=== PATIENT | male | born 1950 | race Caucasian/White ===

== ENCOUNTER 2020-04-14 03:52 | Outpatient (RCR) | payer MEDICARE, SELFPAY ==
[2020-04-14 11:23] LABS: Abs Immature Grans 0.14 10^3/uL (0.0-0.06); Absolute Basophil Count 0.06 10^3/uL (0.0-0.2); Absolute Eosinophil Count 0.36 10^3/uL (0.0-0.7); Absolute Lymphocyte Count 2.14 10^3/uL (1.2-3.4); Absolute Monocyte Count 0.64 10^3/uL (0.1-0.8); Basophils % 0.9; Eosinophils % 5.3; HGB 13.3 g/dL (13.5-17.5); Lymphocytes % 31.3; MCH 30.6 pg (27.0-33.0); MCHC 34.1 % (32.0-36.0); MCV 89.9 fL (80-95); MPV 8.6 fL (8.0-11.0); Monocytes % 9.4; Neutrophils % 51.1; Nucleated RBC 0 %; Platelet Count 243 10^3/uL (130-400); RBC 4.34 10^6/uL (4.36-5.78); RDW 12.1 % (11.8-14.1); RDW-SD 39.7 fL; WBC 6.84 10^3/uL (4.4-10.8)
[2020-04-14] MEDS: Normal Saline Flush 10 ML SYR IVP (11:27)
[2020-04-14 11:36] LABS: ALT 20 U/L (16-63); AST 11 U/L (15-37); Albumin 3.6 g/dL (3.4-5.0); Alkaline Phosphatase 80 U/L (46-116); Anion Gap 7.7 mmol/L (3-11); BUN 18 mg/dL (7-18); Bilirubin, Total 0.3 mg/dL (0.2-1.0); CO2 24.3 mmol/L (21.0-32.0); CREATININE 1.04 mg/dL (0.70-1.30); Calcium 8.3 mg/dL (8.5-10.1); Chloride 102 mmol/L (98-107); Glucose 204 mg/dL (74-106); Magnesium 1.8 mg/dL (1.8-2.4); Potassium 3.7 mmol/L (3.5-5.1); Sodium 134 mmol/L (136-145); Total Protein 7.2 g/dL (6.4-8.2)
== END 2020-04-20 23:59 | disposition home or self-care (01) ==
LOC: INF 03:52
PROVIDERS: PCP Family Medicine; Visit Provider Internal Medicine Hematology & Oncology
DX: C44.229 Squamous cell carcinoma of skin of left ear and external auricular canal (principal)
CPT/HCPCS: 36591; 80053; 83735; 85025

== ENCOUNTER 2020-05-12 02:34 | Outpatient (RCR) | payer MEDICARE, SELFPAY ==
[2020-04-21] MEDS: Normal Saline Flush 10 ML SYR IVP (10:27)
[2020-04-21 10:32] LABS: Abs Immature Grans 0.24 10^3/uL (0.0-0.06); Absolute Basophil Count 0.07 10^3/uL (0.0-0.2); Absolute Eosinophil Count 0.21 10^3/uL (0.0-0.7); Absolute Lymphocyte Count 1.98 10^3/uL (1.2-3.4); Absolute Monocyte Count 0.91 10^3/uL (0.1-0.8); Absolute Neutrophil Count 4.83 10^3/uL (1.2-6.7); Basophils % 0.8; Eosinophils % 2.5; HCT 39.6 % (40.0-50.0); HGB 13.4 g/dL (13.5-17.5); Immature Grans % 2.9; MCH 29.7 pg (27.0-33.0); MCHC 33.8 % (32.0-36.0); MCV 87.8 fL (80-95); MPV 8.8 fL (8.0-11.0); Neutrophils % 58.8; Nucleated RBC 0 %; Platelet Count 256 10^3/uL (130-400); RBC 4.51 10^6/uL (4.36-5.78); WBC 8.24 10^3/uL (4.4-10.8)
[2020-04-21 10:49] LABS: ALT 21 U/L (16-63); AST 11 U/L (15-37); Albumin 3.5 g/dL (3.4-5.0); Alkaline Phosphatase 86 U/L (46-116); Anion Gap 9.1 mmol/L (3-11); BUN 22 mg/dL (7-18); Bilirubin, Total 0.3 mg/dL (0.2-1.0); CO2 27.9 mmol/L (21.0-32.0); CREATININE 1.1 mg/dL (0.70-1.30); Chloride 100 mmol/L (98-107); Glucose 223 mg/dL (74-106); Magnesium 1.7 mg/dL (1.8-2.4); Sodium 137 mmol/L (136-145)
[2020-04-28] MEDS: Normal Saline Flush 10 ML SYR IVP (10:00)
[2020-04-28 10:02] LABS: Abs Immature Grans 0.06 10^3/uL (0.0-0.06); Absolute Basophil Count 0.03 10^3/uL (0.0-0.2); Absolute Eosinophil Count 0.16 10^3/uL (0.0-0.7); Absolute Lymphocyte Count 1.18 10^3/uL (1.2-3.4); Absolute Neutrophil Count 5.17 10^3/uL (1.2-6.7); Basophils % 0.4; Eosinophils % 2.2; HCT 38.1 % (40.0-50.0); Immature Grans % 0.8; Lymphocytes % 16.2; MCH 29.9 pg (27.0-33.0); MCHC 34.1 % (32.0-36.0); MCV 87.6 fL (80-95); Monocytes % 9.6; Neutrophils % 70.8; Nucleated RBC 0 %; Platelet Count 179 10^3/uL (130-400); RBC 4.35 10^6/uL (4.36-5.78); RDW 12.2 % (11.8-14.1); RDW-SD 39.1 fL
[2020-04-28 10:15] LABS: ALT 19 U/L (16-63); AST 14 U/L (15-37); Albumin 3.5 g/dL (3.4-5.0); Alkaline Phosphatase 86 U/L (46-116); Anion Gap 8.9 mmol/L (3-11); BUN 17 mg/dL (7-18); Bilirubin, Total 0.4 mg/dL (0.2-1.0); CO2 27.1 mmol/L (21.0-32.0); CREATININE 1.1 mg/dL (0.70-1.30); Chloride 99 mmol/L (98-107); Glucose 191 mg/dL (74-106); Magnesium 1.7 mg/dL (1.8-2.4); Potassium 3.7 mmol/L (3.5-5.1); Sodium 135 mmol/L (136-145); Total Protein 6.9 g/dL (6.4-8.2)
[2020-05-05] MEDS: Normal Saline Flush 10 ML SYR IVP (10:30)
[2020-05-05 11:01] LABS: Basophils % 0.4; HCT 38.3 % (40.0-50.0); HGB 13.3 g/dL (13.5-17.5); Lymphocytes % 15.1; MCH 30.2 pg (27.0-33.0); MCHC 34.7 % (32.0-36.0); MCV 86.8 fL (80-95); MPV 8.8 fL (8.0-11.0); Monocytes % 10.5; Neutrophils % 72.4; Platelet Count 172 10^3/uL (130-400); RBC 4.41 10^6/uL (4.36-5.78); RDW 12.7 % (11.8-14.1); RDW-SD 39.8 fL; WBC 7.27 10^3/uL (4.4-10.8)
[2020-05-05 11:02] LABS: Abs Immature Grans 0.04 10^3/uL (0.0-0.06); Absolute Basophil Count 0.03 10^3/uL (0.0-0.2); Absolute Eosinophil Count 0.07 10^3/uL (0.0-0.7); Absolute Monocyte Count 0.76 10^3/uL (0.1-0.8); Absolute Neutrophil Count 5.27 10^3/uL (1.2-6.7); Immature Grans % 0.6; Nucleated RBC 0 %
[2020-05-05 11:11] LABS: ALT 23 U/L (16-63); AST 15 U/L (15-37); Albumin 3.8 g/dL (3.4-5.0); Alkaline Phosphatase 97 U/L (46-116); Anion Gap 8.3 mmol/L (3-11); BUN 27 mg/dL (7-18); Bilirubin, Total 0.6 mg/dL (0.2-1.0); CO2 26.7 mmol/L (21.0-32.0); CREATININE 1.2 mg/dL (0.70-1.30); Calcium 9.5 mg/dL (8.5-10.1); Chloride 99 mmol/L (98-107); Glucose 170 mg/dL (74-106); Magnesium 1.8 mg/dL (1.8-2.4); Potassium 3.7 mmol/L (3.5-5.1); Sodium 134 mmol/L (136-145); Total Protein 7.5 g/dL (6.4-8.2)
[2020-05-12 10:27] LABS: Abs Immature Grans 0.04 10^3/uL (0.0-0.06); Absolute Basophil Count 0.02 10^3/uL (0.0-0.2); Absolute Lymphocyte Count 0.97 10^3/uL (1.2-3.4); Absolute Monocyte Count 0.69 10^3/uL (0.1-0.8); Absolute Neutrophil Count 4.27 10^3/uL (1.2-6.7); Basophils % 0.3; Eosinophils % 1.6; HCT 34.5 % (40.0-50.0); HGB 12.1 g/dL (13.5-17.5); Immature Grans % 0.7; Lymphocytes % 15.9; MCH 30.3 pg (27.0-33.0); MCHC 35.1 % (32.0-36.0); MCV 86.3 fL (80-95); MPV 8.8 fL (8.0-11.0); Monocytes % 11.3; Neutrophils % 70.2; Nucleated RBC 0 %; Platelet Count 139 10^3/uL (130-400); RDW 12.9 % (11.8-14.1); WBC 6.09 10^3/uL (4.4-10.8)
[2020-05-12] MEDS: Normal Saline Flush 10 ML SYR IVP (10:28)
[2020-05-12 10:37] LABS: ALT 21 U/L (16-63); AST 14 U/L (15-37); Albumin 3.6 g/dL (3.4-5.0); Alkaline Phosphatase 93 U/L (46-116); Anion Gap 7.2 mmol/L (3-11); BUN 26 mg/dL (7-18); Bilirubin, Total 0.6 mg/dL (0.2-1.0); CO2 28.8 mmol/L (21.0-32.0); Calcium 9.2 mg/dL (8.5-10.1); Chloride 99 mmol/L (98-107); Glucose 147 mg/dL (74-106); Magnesium 1.8 mg/dL (1.8-2.4); Potassium 3.9 mmol/L (3.5-5.1); Sodium 135 mmol/L (136-145); Total Protein 7.2 g/dL (6.4-8.2)
== END 2020-05-18 23:59 | disposition home or self-care (01) ==
LOC: INF 02:34
PROVIDERS: PCP Family Medicine; Visit Provider Internal Medicine Hematology & Oncology
DX: C44.229 Squamous cell carcinoma of skin of left ear and external auricular canal (principal); Z45.2 Encounter for adjustment and management of vascular access device
CPT/HCPCS: 36591; 80053; 83735; 85025

== ENCOUNTER 2020-06-11 14:00 | Outpatient (RCR) | payer MEDICARE, SELFPAY ==
[2020-05-19 10:42] LABS: Abs Immature Grans 0.04 10^3/uL (0.0-0.06); Absolute Basophil Count 0.02 10^3/uL (0.0-0.2); Absolute Eosinophil Count 0.04 10^3/uL (0.0-0.7); Absolute Lymphocyte Count 0.62 10^3/uL (1.2-3.4); Absolute Monocyte Count 0.35 10^3/uL (0.1-0.8); Absolute Neutrophil Count 3.78 10^3/uL (1.2-6.7); Basophils % 0.4; Eosinophils % 0.8; HCT 33.2 % (40.0-50.0); HGB 11.6 g/dL (13.5-17.5); Immature Grans % 0.8; Lymphocytes % 12.8; MCH 30.1 pg (27.0-33.0); MCHC 34.9 % (32.0-36.0); MCV 86.2 fL (80-95); MPV 8.9 fL (8.0-11.0); Monocytes % 7.2; Nucleated RBC 0 %; Platelet Count 116 10^3/uL (130-400); RBC 3.85 10^6/uL (4.36-5.78); RDW 13.7 % (11.8-14.1); RDW-SD 41.2 fL; WBC 4.85 10^3/uL (4.4-10.8)
[2020-05-19] MEDS: Normal Saline Flush 10 ML SYR IVP (10:43)
[2020-05-19 10:56] LABS: ALT 19 U/L (16-63); AST 15 U/L (15-37); Albumin 3.4 g/dL (3.4-5.0); Alkaline Phosphatase 82 U/L (46-116); Anion Gap 6.5 mmol/L (3-11); BUN 28 mg/dL (7-18); Bilirubin, Total 0.3 mg/dL (0.2-1.0); CO2 27.5 mmol/L (21.0-32.0); CREATININE 1.1 mg/dL (0.70-1.30); Calcium 9.3 mg/dL (8.5-10.1); Chloride 101 mmol/L (98-107); Glucose 201 mg/dL (74-106); Magnesium 1.5 mg/dL (1.8-2.4); Potassium 3.6 mmol/L (3.5-5.1); Sodium 135 mmol/L (136-145); Total Protein 6.9 g/dL (6.4-8.2)
[2020-05-26] MEDS: Normal Saline Flush 10 ML SYR IVP (10:15)
[2020-05-26 10:24] LABS: Abs Immature Grans 0.04 10^3/uL (0.0-0.06); Absolute Basophil Count 0.02 10^3/uL (0.0-0.2); Absolute Eosinophil Count 0.06 10^3/uL (0.0-0.7); Absolute Lymphocyte Count 0.54 10^3/uL (1.2-3.4); Absolute Monocyte Count 0.39 10^3/uL (0.1-0.8); Absolute Neutrophil Count 3.11 10^3/uL (1.2-6.7); Basophils % 0.5; Eosinophils % 1.4; HCT 31.7 % (40.0-50.0); HGB 10.9 g/dL (13.5-17.5); MCH 29.9 pg (27.0-33.0); MCHC 34.4 % (32.0-36.0); MCV 87.1 fL (80-95); MPV 8.7 fL (8.0-11.0); Monocytes % 9.4; Neutrophils % 74.7; Nucleated RBC 0 %; Platelet Count 138 10^3/uL (130-400); RBC 3.64 10^6/uL (4.36-5.78); RDW 14.4 % (11.8-14.1); RDW-SD 42.5 fL; WBC 4.16 10^3/uL (4.4-10.8)
[2020-05-26 10:38] LABS: ALT 21 U/L (16-63); AST 15 U/L (15-37); Albumin 3.4 g/dL (3.4-5.0); Alkaline Phosphatase 113 U/L (46-116); Anion Gap 9.3 mmol/L (3-11); BUN 32 mg/dL (7-18); Bilirubin, Total 0.5 mg/dL (0.2-1.0); CO2 27.7 mmol/L (21.0-32.0); CREATININE 1.2 mg/dL (0.70-1.30); Calcium 9.5 mg/dL (8.5-10.1); Chloride 100 mmol/L (98-107); Glucose 216 mg/dL (74-106); Magnesium 1.6 mg/dL (1.8-2.4); Potassium 3.9 mmol/L (3.5-5.1); Sodium 137 mmol/L (136-145)
[2020-06-11] MEDS: Heparin 500 UNITS/5 ML SYRINGE IV (14:08)
[2020-06-11] MEDS: Normal Saline Flush 10 ML SYR IVP (14:08)
[2020-06-11 14:24] LABS: Abs Immature Grans 0.15 10^3/uL (0.0-0.06); Absolute Basophil Count 0.03 10^3/uL (0.0-0.2); Absolute Eosinophil Count 0.06 10^3/uL (0.0-0.7); Absolute Lymphocyte Count 1.16 10^3/uL (1.2-3.4); Absolute Monocyte Count 0.74 10^3/uL (0.1-0.8); Absolute Neutrophil Count 3.37 10^3/uL (1.2-6.7); Basophils % 0.5; Eosinophils % 1.1; HCT 32.1 % (40.0-50.0); Immature Grans % 2.7; Lymphocytes % 21.1; MCH 31.9 pg (27.0-33.0); MCHC 34.3 % (32.0-36.0); MPV 9.6 fL (8.0-11.0); Monocytes % 13.4; Neutrophils % 61.2; Nucleated RBC 1 %; Platelet Count 184 10^3/uL (130-400); RBC 3.45 10^6/uL (4.36-5.78); RDW 19.7 % (11.8-14.1); RDW-SD 63.5 fL; WBC 5.51 10^3/uL (4.4-10.8)
[2020-06-11 14:44] LABS: Cholesterol 259 mg/dL (<200); HDL Cholesterol 33 mg/dL (40-60); Magnesium 1.9 mg/dL (1.8-2.4); TSH (W/Ref FT4) 1.19 uIU/mL (0.36-3.74); Triglyceride 932 mg/dL (<150)
[2020-06-11 14:51] LABS: COMMENT (LAB VIEW ONLY) 41.38 mg/dL; Microalb ug/mg Crea 35.8 ug/mg Cr
[2020-06-11 14:55] LABS: LDL CHOLESTEROL 102 mg/dL (<100)
[2020-06-11 22:32] LABS: ALT 26 U/L (16-63); AST 14 U/L (15-37); Albumin 3.5 g/dL (3.4-5.0); Alkaline Phosphatase 110 U/L (46-116); Anion Gap 10.3 mmol/L (3-11); BUN 46 mg/dL (7-18); Bilirubin, Total 0.3 mg/dL (0.2-1.0); CO2 29.7 mmol/L (21.0-32.0); CREATININE 1.2 mg/dL (0.70-1.30); Calcium 9.8 mg/dL (8.5-10.1); Chloride 107 mmol/L (98-107); Glucose 317 mg/dL (74-106); Sodium 147 mmol/L (136-145); Total Protein 7.2 g/dL (6.4-8.2)
[2020-06-12 08:31] LABS: Prealbumin 27 mg/dL (20-40)
== END 2020-06-18 23:59 | disposition home or self-care (01) ==
LOC: INF 14:00
PROVIDERS: PCP Family Medicine; Visit Provider Internal Medicine Hematology & Oncology
DX: C44.229 Squamous cell carcinoma of skin of left ear and external auricular canal (principal); E46 Unspecified protein-calorie malnutrition; R53.83 Other fatigue; I25.10 Atherosclerotic heart disease of native coronary artery without angina pectoris; E11.9 Type 2 diabetes mellitus without complications; Z45.2 Encounter for adjustment and management of vascular access device
CPT/HCPCS: 36591; 80053; 80061; 83721; 82043; 82570; 83735; 84134; 84443; 85025

== ENCOUNTER 2020-06-23 03:53 | Outpatient (RCR) | payer MEDICARE, SELFPAY ==
[2020-06-23 13:10] LABS: Abs Immature Grans 0.25 10^3/uL (0.0-0.06); Absolute Basophil Count 0.03 10^3/uL (0.0-0.2); Absolute Eosinophil Count 0.05 10^3/uL (0.0-0.7); Absolute Monocyte Count 0.84 10^3/uL (0.1-0.8); Basophils % 0.5; Eosinophils % 0.8; HCT 27.8 % (40.0-50.0); HGB 9.7 g/dL (13.5-17.5); Immature Grans % 4.1; Lymphocytes % 11.3; MCH 33.7 pg (27.0-33.0); MCHC 34.9 % (32.0-36.0); MCV 96.5 fL (80-95); Monocytes % 13.6; Neutrophils % 69.7; Nucleated RBC 0 %; Platelet Count 206 10^3/uL (130-400); RBC 2.88 10^6/uL (4.36-5.78); RDW 20.7 % (11.8-14.1); WBC 6.17 10^3/uL (4.4-10.8)
[2020-06-23] MEDS: Normal Saline Flush 10 ML SYR IVP (13:14)
[2020-06-23] MEDS: Heparin 500 UNITS/5 ML SYRINGE IV (13:15)
[2020-06-23 13:28] LABS: Anisocytosis 1+; Diff Comment Diff Reviewed
[2020-06-23 13:30] LABS: ALT 26 U/L (16-63); AST 15 U/L (15-37); Albumin 3.6 g/dL (3.4-5.0); Alkaline Phosphatase 80 U/L (46-116); Anion Gap 9.8 mmol/L (3-11); BUN 31 mg/dL (7-18); Bilirubin, Total 0.3 mg/dL (0.2-1.0); CO2 29.2 mmol/L (21.0-32.0); CREATININE 1.2 mg/dL (0.70-1.30); Calcium 9.1 mg/dL (8.5-10.1); Chloride 96 mmol/L (98-107); Glucose 302 mg/dL (74-106); Magnesium 1.8 mg/dL (1.8-2.4); Sodium 135 mmol/L (136-145); Total Protein 6.9 g/dL (6.4-8.2)
== END 2020-07-18 23:59 | disposition home or self-care (01) ==
LOC: INF 03:53
PROVIDERS: PCP Family Medicine; Visit Provider Internal Medicine Hematology & Oncology
DX: E83.42 Hypomagnesemia (principal); C44.229 Squamous cell carcinoma of skin of left ear and external auricular canal
CPT/HCPCS: 36591; 80053; 83735; 85025

== ENCOUNTER 2020-07-16 02:53 | Outpatient (CLI) | payer MEDICARE, SELFPAY ==
--- NOTE | 2020-07-16 14:55 | DI.RAD_ITS ---
TECHNIQUE: Modified barium swallow was performed in conjunction with speech pathology. CONTRAST MATERIAL: Oral barium Oral water soluble contrast was administered. COMPARISON: No exams were available for comparison FINDINGS: This study was performed in conjunction with the speech pathologist. Please refer to her independent report. No obvious aspiration evident. Esophagus is not dilated. There is no obvious hiatal hernia. On the AP images the barium column appears to be deviated towards the left side at C3-C4 level. This may be related to a mass at this level. Direct visualization/endoscopy is recommended. IMPRESSION: Abnormal findings as above. Please also refer to separate report by the speech therapist. RADIATION DOSE DELIVERED: claudio Tenorio= mGy
[2020-07-16] MEDS: Barium Sulfate 40% W/V 240 ML BTL 30 ML PO (15:20)
[2020-07-16] MEDS: Barium Sulfate 81% w/w for Oral Suspension 148 GM BTL PO (15:20)
[2020-07-16] MEDS: Barium Sulfate 700 MG TAB PO (15:21)
[2020-07-16] MEDS: Barium Sulfate 40% W/V 1500 CPS 250 ML BTL 30 ML PO (15:22)
[2020-07-16] MEDS: Barium Sulfate Oral Paste 40% W/V 230 ML TUBE PO (15:23)
--- NOTE | 2020-07-16 15:58 | ST.MBS_ITS ---
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 Patient otherwise denies odynophagia or globus; reports he has been able to tolerate level 4-5 solid foods (ie oatmeal) as well as levels 0/1/2 liquids (water, ice cream, smoothies etc) and is taking solid medications orally with oatmeal or ice cream in the evening without difficulty. Major inhibiting factor to increasing p.o. intake is dysguesia at this time. Patient noted to indicate need to vomit during study, although was able to control sensation and complete full study. Does endorse continued xerostomia. OBJECTIVE: Videofluoroscopic Swallow Evaluation (VFSE/MBSS) was conducted in the lateral and [id number] projections by Speech-Language Pathologist, in collaboration with Radiologist, to evaluate oropharyngeal swallow function. Anatomic view under fluoroscopy: WFL Standard [place]. coin visible along posterior cervical spine, used for calibration purposes during analysis PO barium contrast trials: Oral barium water soluble contrast was administered as follows: IDDSI Level 0 Varibar thin liquid (40% w/v) IDDSI Level 2 Varibar nectar thick/mildly thick liquid (40% w/v) IDDSI Level 3 Varibar thin honey/liquidised/moderately-thick (40% w/v) IDDSI Level 4 Varibar pudding/pureed/extremely thick (40% w/v) IDDSI Level 7 Regular Solid: 1/2 kate cracker coated in 3 mL Varibar pudding; 13 mm barium tablet PHYSIOLOGIC FINDINGS Oral Phase 1 Lip Closure: 0-No labial escape 2 Tongue Control: 0- Cohesive bolus between tongue to palatal seal 3 Bolus Preparation/Mastication: 0- Timely and efficient chewing/mashing 4 Bolus Transport/Lingual Motion: 0- Brisk tongue motion 5 Oral residue: 2- Residue collection on oral structures Location:palate, tongue 6 Initiation of pharyngeal swallow: 1- Bolus head in valleculae Pharyngeal Phase 7 Velar Elevation: 0- No bolus between soft palate and pharyngeal wall 8 Laryngeal Elevation: 1- Partial superior movement of thyroid cartilage with partial approximation of arytenoids to epiglottic petiole 9 Anterior Hyoid Excursion: 1- Partial anterior movement 10 Epiglottic Movement: 1- Partial inversion 11 Laryngeal Vestibule Closure: 1- Incomplete; narrow column of air/contrast in laryngeal vestibule Penetration during swallow onset from current bolus 12 Pharyngeal Stripping Wave: 1- Present; diminished 13 Pharyngeal Contraction: 2- Unilateral bulging 14 PES/UES Openin- Complete distension and complete duration; no obstruction of flow 15 Tongue Base Retraction: 2- Narrow column of contrast between tongue base and posterior pharyngeal wall 16 Pharyngeal residue: 2- Collection of residue within or on pharyngeal structures Location: Diffuse; Tongue base, Valleculae, Pharyngeal wall, Pyriform sinuses Laporte Pharyngeal Residue Severity Rating Scale (YPRS) (Solomon, et al, 2015) Vallecula Residue Severity IV Moderate 25-50% Epiglottic ligament covered (observed more with viscous > less viscous consistencies/textures) Pyriform Sinus Residue Severity II Trace 1-5% Trace coating of the mucosa Esophageal Phase 17 Esophageal Clearance Upright Position: 0-Complete clearance; esophageal coating NOTE: This study was performed for interpretation only of the oropharyngeal and pharyngoesophageal domains of swallowing. It is not intended to diagnose any other radiologic abnormalities or substitute for a formal esophagram study. Overall 8-Point Penetration-Aspiration Scale (PAS) (Rosenbek, et al, 1996) 2 - Material enters the airway, remains above the vocal folds, and is ejected from the airway. Clinical Indicator(s) of Prandial/Postprandial Aspiration: N/A DIGEST Scale Rating (O'Roel, et al, 1999) DIGEST Score: Safety Grade 0 / Efficiency Grade 2 = 1 - Overall Mild Pharyngeal Impairment (0=No Impairment, 1=Mild, 2=Moderate, 3=Severe, 4=Life Threatening) The Dynamic Imaging Grade of Swallowing Toxicity (DIGEST) Score represents a set of structured criteria primarily validated for head and neck cancer patients to grade the interaction of safety, efficiency, and overall impairment of the pharyngeal swallow, meant to assist in prioritization of targets for dysphagia treatment planning. (Cassandra et al. Cancer. 2017;123(1):62-70) Note: Above score represents swallowing events without application of compensatory techniques Trialed Compensatory Swallow Strategies & Outcome: Maneuvers 3-second Preparatory Set - no change Secondary saliva swallow x1-2 - successful Bolus Modifications Delivery/Alternating Consistencies - Wash with thin - successful Reduced Volume - no significant change, may increase vallecular residue with more viscous textures Reduced Rate of Intake - no signficant change Increased Viscosity - increases (diffuse) residue Dysphagia Outcome and Severity Scale (ELLIOT) LEVEL 4 - Full PO: modified diet and/or independence - Mild-moderate dysphagia; Intermittent supervision/cueing, 1 or 2 consistencies restricted *Primarily self-limited po intkae due to dysguesia at this time, continues with tube feeding IMPRESSIONS: Mild-moderate oropharyngeal dysphagia, [id number] 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; early effects of radiation fibrosis are also a likely contributing factor; dysphagia is primarily characterized by reduced pharyngeal contraction, reduced tongue base retraction, resulting in diffuse residue within or on pharyngeal structures; most notably, moderate vallecular residue is present after completion of initial swallow onset; patient requires verbal cue for initiation of secondary clearing swallow, suggesting reduced sensation at level of hypopharynx; laryngeal sensation is likely intact given observation of cough after completion of study; trace-mild residue is also noted on tongue base, pharyngeal wall, and piriform sinuses across most trials, with increased residue noted with more viscous consistencies (ie masticated solids, pudding, etc); reduced laryngeal elevation, anterior hyoid excursion, epiglottic movement, incomplete laryngeal vestibule closure, and diminished pharyngeal stripping wave also appear to contribute to reduced efficiency of more viscous textures; brief penetration noted during initial trial of 5mL thin liquid. Occasional oral residue is also noted, however patient appears sensate to this, initiating reflexive swallow to clear stasis. Swallow safety appears to be preserved; swallow efficiency is impaired. Patient appears to be at low-moderate risk for potential aspiration PNA, pulmonary compromise and low risk for malnutrition/dehydration given presence a nd use of current tube feeding(s); patient does demonstrate overt s/sx aspiration (ie, cough) after final trial of mixed consistency (ie solid barium tablet with thin liquid); unable to identify presence of aspiration during this final trial due to AP view at time of trial, therefore unable to rule out aspiration with mixed consistencies involving thin liquids, also recommended to take oral medications (pills/tablets) with IDDSI level 4 texture, followed with thin liquid wash to clear any remaining stasis; patient was noted to report that barium table had cleared from esophagus, when in fact tablet was noted in superior 1/3 of esophagus; thin liquid wash via cup which cleared tablet from superior 1/3 of esophagus; patient is aware of risk factors for aspiration pneumonia and risk management, able to demonstrate teachback of recommendations as outlined below. Diet modification and use of outlined strategies are recommended; non-oral nutrition continues to be indicated at this time, primarily self-limiting due to dysguesia vs dysphagia presentation. Swallow prognosis is good given age, time s/p completion of radiation therapy, and carepartner support; patient is agreeable to continued patient/caregiver training in risk management as outlined. Patient appears to be a good candidate for behavioral swallow rehabilitation. PLAN: [facility] to contact patient's to discuss recommendations for trismus management / Risk management moving forward including modifications to Orastretch device and daily routine in context of pain management. Pt has follow up scheduled with [facility] for 07/30/20 [facility]. Diet recommendation: IDDSI Level 5-Minced & Moist Solids, 4-Pureed Solids as tolerated 0-Thin Liquids Please see further details at www.iddsi.org Diet texture modification is per patient's preference; please adjust diet textures at patient's discretion & collaboration with care team. Risk Management: Behavioral reflux precautions, including upright position during + 90 mins after meals. Small sips, approx 10 mL Avoid mixed consistencies with thin liquids Alternate solids/liquids to clear pharyngeal stasis Multiple swallows per bolus (1-2) to encourage clearance of pharyngeal stasis/residue Encourage oral medications to be taken with more viscous textures/consistencies as appropriate, otherwise monitor for overt s/sx aspiration if choosing to take pill/tablet(s) with thin liquids Control risk factors for aspiration pneumonia via (a) thorough oral hygiene & (b) maintaining physical mobility as tolerated Specialist referrals: N/A Ancillary tests: N/A Therapy: Recommend subsequent outpatient session with [facility] to review results of today's exam and develop treatment plan as appropriate. Goal: TBD pending patient/caregiver interview Follow-up exam: N/A Thank you for allowing me to take part in this patient's care. Please feel free to contact me with any questions/concerns. Gilda Jameson MA CCC-[facility] Speech Language Pathologist [phone] Coding CPT Codes MOTION FLUOROSCOPY/SWALLOW - [id number] ([id number])
== END 2020-07-16 03:13 ==
PROVIDERS: PCP Family Medicine; Visit Provider Speech-Language Pathologist
DX: R13.12 Dysphagia, oropharyngeal phase (principal); Z92.3 Personal history of irradiation; C44.229 Squamous cell carcinoma of skin of left ear and external auricular canal
CPT/HCPCS: 74221

== ENCOUNTER 2020-09-15 02:57 | Outpatient (RCR) | payer MEDICARE, SELFPAY ==
[2020-09-15 10:26] LABS: Abs Immature Grans 0.06 10^3/uL (0.0-0.06); Absolute Basophil Count 0.03 10^3/uL (0.0-0.2); Absolute Eosinophil Count 0.42 10^3/uL (0.0-0.7); Absolute Lymphocyte Count 0.87 10^3/uL (1.2-3.4); Absolute Monocyte Count 0.59 10^3/uL (0.1-0.8); Absolute Neutrophil Count 4.01 10^3/uL (1.2-6.7); Basophils % 0.5; HCT 34.1 % (40.0-50.0); HGB 11.6 g/dL (13.5-17.5); Lymphocytes % 14.5; MCH 32.2 pg (27.0-33.0); MCV 94.7 fL (80-95); MPV 8.5 fL (8.0-11.0); Monocytes % 9.9; Neutrophils % 67.1; Nucleated RBC 0 %; Platelet Count 167 10^3/uL (130-400); RDW-SD 41.8 fL; WBC 5.98 10^3/uL (4.4-10.8)
[2020-09-15] MEDS: Normal Saline Flush 10 ML SYR IVP (10:27)
[2020-09-15 10:43] LABS: ALT 16 U/L (16-63); AST 14 U/L (15-37); Albumin 3.8 g/dL (3.4-5.0); Alkaline Phosphatase 81 U/L (46-116); Anion Gap 11.7 mmol/L (3-11); BUN 30 mg/dL (7-18); Bilirubin, Total 0.5 mg/dL (0.2-1.0); CO2 23.3 mmol/L (21.0-32.0); CREATININE 1.5 mg/dL (0.70-1.30); Calcium 8.9 mg/dL (8.5-10.1); Chloride 105 mmol/L (98-107); Estimated GFR 46.54 (mL/min/1.73m2); Glucose 281 mg/dL (74-106); Potassium 3.7 mmol/L (3.5-5.1); Sodium 140 mmol/L (136-145); Total Protein 7.2 g/dL (6.4-8.2)
[2020-09-15 11:40] LABS: TSH 2.57 uIU/mL (0.36-3.74)
== END 2020-09-17 23:59 | disposition home or self-care (01) ==
LOC: INF 02:57
PROVIDERS: PCP Family Medicine; Visit Provider Internal Medicine Hematology & Oncology
DX: F31.9 Bipolar disorder, unspecified (principal); E78.1 Pure hyperglyceridemia; T73.2XXD Exhaustion due to exposure, subsequent encounter; C44.229 Squamous cell carcinoma of skin of left ear and external auricular canal; R73.9 Hyperglycemia, unspecified; Z45.2 Encounter for adjustment and management of vascular access device
CPT/HCPCS: 36591; 80053; 84443; 85025

== ENCOUNTER 2021-11-09 09:30 | Outpatient (RCR) | payer MEDICARE, SELFPAY ==
--- OUTSIDE RECORDS SUMMARY | 2021-10-21 07:56 | XMS_ITS | Clinical Summary ---
:1950 Author Organization [facility] Address [address] [place] [address] Care Team Providers Name Role Phone Unknown, Provider Primary Care Provider Social History Tobacco Use Types Packs/Day Years Used Date Never Assessed Sex Assigned at Date Recorded Not on file Plan of Treatment Health Maintenance Due Date Last Done Comments Fall Risk Screening 12/03/2016 Insurance Payer Benefit Plan / Subscriber ID Effective Phone Address T ype Group Dates MEDICARE MEDICARE A [id number] 2005-[place]uni [phone] [address] [place] [address] Ward Santamaria Personal/Family Self 1950 [address]) [place] Ward Santamaria Personal/Family Self 1950 [address]Home) [place] [address] Ward Santamaria Personal/Family Self 1950 [address]Home) [place], [place] Ward Santamaria Personal/Family Self 1950 [address] (Home) [place] [address] Care Teams Casing Trimmer Relationship Specialty Start Date End Date Unknown, Provider, PCP - General 12/20/19
--- OUTSIDE RECORDS SUMMARY | 2021-10-21 07:56 | XMS_ITS | Encounter Summary ---
:1950 Author Organization [facility] Address [address] [place] [address] Care Team Providers Name Role Phone Unknown, Provider Primary Care Provider Encounter Details Date Type Department Care Team Description 03/06/2020 Lab Requisition [facility] Jacoby Rosario diseases of Pathology & P, PA salivary glands Laboratory Medicine [address] [place] [phone] Social History Tobacco Use Types Packs/Day Years Used Date Never Assessed Sex Assigned at Date Recorded Not on file documented as of this encounter Plan of Treatment Not on filedocumented as of this encounter Visit Diagnoses Diagnosis Other diseases of salivary glands documented in this encounter Care Teams Family Assistant Relationship Specialty Start Date End Date Unknown, Provider, PCP - General 12/20/19 documented as of this encounter
--- OUTSIDE RECORDS SUMMARY | 2021-10-21 07:56 | XMS_ITS | Encounter Summary ---
:1950 Author Organization [facility] Address [address] [place] [address] Care Team Providers Name Role Phone Unknown, Provider Primary Care Provider Encounter Details Date Type Department Care Team Description 03/25/2020 Lab Requisition [facility] Jacoby Rosario ncounter for other Pathology & P, PA general examination Laboratory Medicine [address] [place] [phone] Social History Tobacco Use Types Packs/Day Years Used Date Never Assessed Sex Assigned at Date Recorded Not on file documented as of this encounter Plan of Treatment Not on filedocumented as of this encounter Procedures Procedure Name Priority Date/Time Associated Diagnosis Comme nts ANATOMIC PATHOLOGY Today 01/17/2020 14:50 Encounter for othe r Results for this - DOWNTIME EDT general examination procedur e are in the results section. documented in this encounter Results ANATOMIC PATHOLOGY - DOWNTIME (01/17/2020 14:50 EDT) Final Diagnosis See scanned downtime [facility] report. LABORATORY SERVICES Attestation Report electronically [facility] released by Kacie Teixeira on 03/25/20 . SERVICES Performing Lab [facility] Scanned Images [facility] Specimen Fine Needle Aspirate - Soft tissue (allyson gational concept) Specimen from lung obtained by fine need le aspiration procedure (specimen) - Soft tissue (navigational concept) Narrative This result has an attachment that is no t available. Performing Organization Address City/State/ZIP Code Phon e Number [facility] [address] [place] [address] SERVICES documented in this encounter Visit Diagnoses Diagnosis Encounter for other general examination documented in this encounter Care Teams Medical Surgery Nurse Relationship Specialty Start Date End Date Unknown, Provider, PCP - General 12/20/19 documented as of this encounter
--- OUTSIDE RECORDS SUMMARY | 2021-10-21 07:56 | XMS_ITS | Clinical Summary ---
:1950 Author Organization [facility] [place] [address] Care Team Providers Name Role Phone Tara Joya MD Primary Care Provider [phone] Allergies Active Allergy Reactions Severity Noted Date Comments Codeine Phosphate Rash Penicillins Medium rash Medications Medication Sig Dispensed Refills Start Date End Date Status atorvastatin (LIPITOR) Take 40 mg by 0 Active 20 mg tablet mouth daily. fenofibrate (TRICOR) Take 145 mg by 0 Active 145 mg tablet mouth daily. lamoTRIgine (LaMICtal) Take 200 mg by 0 Active 200 mg Tablet mouth 2 times daily. amitriptyline (ELAVIL) Take 100 mg by 0 Active 50 mg tablet mouth nightly. aspirin 81 mg EC tablet Take 81 mg by 0 Active mouth daily. metoprolol succinate Take 1 tablet by 30 tablet 12 01/08/2013 Active (TOPROL-XL) 50 mg 24 hr mouth daily. tablet ABILIFY 15 mg Tablet Take 15 mg by 0 12/07/2016 Active mouth daily. nitroGLYcerin as needed. 0 09/19/2017 Acti ve (NITROSTAT) 0.4 mg Tablet, Sublingual Ibuprofen 200 mg Take by mouth as 0 Active Capsule needed. acetaminophen (Tylenol) Take 1,000 mg by 0 Active 500 mg Tablet mouth every 8 hours as needed for Pain. pantothenic Ac-Min Apply topically. 0 Active Oil-Pet,Hyd (AQUAPHOR) 41 % Ointment cyanocobalamin, vitamin B-12 2500 MCG 0 Active B-12, 2,500 mcg Tablet TABS tamsulosin (Flomax) 0.4 Take 1 capsule by 90 tablet 3 07/21/20 22 Active mg Capsule mouth daily. 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 pT4a N3b (AJCC 8th ed.) A. History of L facial SCCa 10/2018, 02/19 019 B. Rapidly growing mass L parotid into e xternal ear & EAC; Bx 01/31/2020: mod diff SCCa C. Total parotidectomy, temporal bone re section, partial auriculectomy, pec major flap 02/20/2020: 6.8 cm tumor, tumor at deep parotid margin and into bone; LVI (extensive, large vein), PNI (+); nodes involved, EDILBERTO(+) D. Adjuvant radiation with concurrent we ekly cisplatin 04/14 - 05/28/2020 E. Multiple lung metastases 09/2021 Adjuvant Chemoradiation Patient's Name: Ward Santamaria -0 RT End Date: 05/28/2020 Year 1 Post Surg wk 1 wk 2 wk 3 wk 4 wk 5 wk 6 wk 7 3 mo 4 mo 5 mo 6 mo 9 mo 08/28/20 09/27/20 10/28/20 11/28/2001/08 ON ACTIVE TREATMENT COMPLETED TREATMENT Julio Cesar - MD x x [place] - AP x x Med Onc x x x x x x x x x x Rad Onc x x x x x x x x x x x Screen for Need of Lung Ca Screening x Speech x PRN x PRN Soc Work PRN PRN PRN PRN PT PRN PRN Nutrition x x x x x x x x x G-tube x remove Dental Consult x Mediport x remove CT Neck x PET/CT x PRN Labs-CBC, CMP, Mg x x x x x x x x PRN AR N TSH PRN PRN 1 to 5 Years 12 mo 15 mo 18 mo 21 mo 24 mo 2.5 yrs 3 yrs 3.5 yrs 4 yrs 4.5 yrs 5 yrs 05/28/21 08/28/21 11/28/21 02/27/2201/1011/28/22 05/29/23 11/29/23 05/28/24 11/28/24 05/28/25 COMPLETED TREATMENT Julio Cesar - MD x x x Julio Cesar - AP x x Med Onc x x x Rad Onc x x x Speech PRN Soc Work PRN PT PRN Nutrition PRN PET/CT CT neck x Labs: CBC, CMP PRN PRN PRN PRN Labs: TSH x x x x PCP Lung imaging* x x x PCP *Lung imaging: <10 pack-years: not neede d >10 pack-years and high risk (age 55+, 30+ P-Y tobacco history within 15 years, willing/able to consider lung ca tx): consider ordering CT Chest Screening Lung Cancer. > 10 pack-years and intermediate risk ( age 50+, 20+ P-Y, willing/able to consider lung ca tx): consider ordering Chest Xray PA/lateral. Over 5 YEARS: Alternate annual follow-up appointments between [place] AP and MD, beginning with AP at 6-year appt. Mass of left ear 01/31/2020 Overview: Added automatically from request for timmy ene [id number] Parotid mass 01/31/2020 Overview: Added automatically from request for timmy ene [id number] History of basal cell carcinoma 11/01/2017 Left foot pain 07/11/2015 PTTD (posterior tibial tendon dysfunction) 04/08/2015 Seborrheic keratosis, inflamed 01/23/2015 AK (actinic keratosis) 01/22/2014 Basal cell carcinoma 01/22/2014 CAD (coronary artery disease) 01/03/2013 Overview: 2001- stent to mid CCX, no other CAD MIBI 12/2012 Max Exercise: 7:30, 1:30 Stage III Stevie 9 METS Max HR: 125< 85 % PMR(134) Max BP: 160/[address] change: none Reason for Termination: slight arm pain, fatigue Imaging: Questionable small apical infer ior lateral defect EF 62 % Hyperlipemia 01/03/2013 Bipolar affective disorder 01/03/2013 BPH (benign prostatic hyperplasia) 01/03/2013 Psoriasis 01/03/2013 H/O drug abuse 01/03/2013 Hepatitis C 01/03/2013 Overview: Treated, PCR negative Basal cell cancer 01/03/2013 Hypertriglyceridemia 01/03/2013 Encounters Date Type Specialty Care Team Description 10/21/2021 Infusion Hematology and Oncology 10/19/2021 Office Visit Hematology and Ashok Ritchie Squamous yuliana l carcinoma of ear, left; Oncology MD Angeline Abnormal weight loss; Fatigue, unspec ified type 10/14/2021 Telephone Otolaryngology Osman Barnett MD 10/12/2021 Hospital Encounter Radiology Eli Galdamez MD carcinoma of ea r, left 10/09/2021 Telephone Urology Kacie Rabago, MANAGER PACKAGING 10/09/2021 Telephone Urology Kacie Rabago, MANAGER PACKAGING 10/08/2021 Office Visit Urology Kacie Rabago, Nephrolithiasi s; MANAGER PACKAGING Elevated PSA; Benign localize d prostatic hyperplasia with lower urinary tract symptoms (LUTS) 10/08/2021 Laboratory Lab Secondary hypot hyroidism; Appointment Elevated PSA 10/08/2021 Hospital Encounter Radiology Eli Galdamez MD carcinoma of ea r, left 10/08/2021 Orders Only Radiation Oncology Eli Galdamez MD carcinoma of ea r, left 10/07/2021 Office Visit Radiation Oncology Rudolph, Squamous cell carcinoma of ear, left; Eleazar Mendoza MD Secondary hypot hyroidism 09/10/2021 Office Visit Otolaryngology Ericka, Lagophthalmos of left upper eyelid, unspecified lagophthalmos type; Osman Lobo MD Sebaceous cyst; Postoperative e xamination; Postoperative w ound dehiscence, subsequent encounter 08/24/2021 Orders Only Otolaryngologalissa Barnett, Lagophthalmos of left upper eyelid, unspecified lagophthalmos type; Osman Lobo MD History of SCC (squamous cell carcinoma) of skin; Open wound of n ruth, sequela 08/12/2021 Orders Only Otolaryngology Urbano Beck PA 08/03/2021 Office Visit Otolaryngology Kylie Costello, Eli ce ll MANAGER PACKAGING carcinoma, ear, left 07/28/2021 Telephone Otolaryngology Radha Baca, [place] 07/27/2021 Telephone Otolaryngology Radha Baca, [place] from Last 3 Months Immunizations Name Administration Dates Next Due Influenza Vaccine, Whole 01/16/2002 Family History Medical History Relation Comments Skin Cancer Brother rapid dissemination; of metastatic disease Other Father enlarged heart Relation Status Comments Brother Father Social History Tobacco Use Types Packs/Day Years Used Date Former Smoker Cigarettes 1 40 Quit: 01/09/20 03 Smokeless Tobacco: Never Used Alcohol Use Standard Drinks/Week Comments No 0 (1 standard drink = 0.6 oz pure alcoho l) Sex Assigned at Date Recorded Not on file Last Filed Vital Signs Vital Sign Reading Time Taken Comments Blood Pressure 117/59 10/19/2021 1:43 PM EDT Pulse 81 10/19/2021 1:43 PM EDT Temperature 36.3 ??C (97.3 ??F) 10/19/2021 1:43 PM EDT Respiratory Rate 18 10/19/2021 1:43 PM EDT Oxygen Saturation 99% 10/19/2021 1:43 PM EDT Inhaled Oxygen Concentration - - Weight 65.9 kg (145 lb 3.2 oz) 10/19/2021 1:43 PM EDT Height 175.3 cm (5' 9.02) 10/19/2021 1:43 PM EDT Body Mass Index 21.43 10/19/2021 1:43 PM EDT Plan of Treatment Upcoming Encounters Date Type Specialty Care Team Description 10/21/2021 Infusion Hematology and Oncology 11/09/2021 Office Visit Hematology and Oncology Alhaji Ritchie MD [facility] DR ONCOLOGY DEPT. [place], [place] [address] (Wo rk) 11/09/2021 Infusion Hematology and Oncology 12/10/2021 Office Visit Dermatology Silas Walters MD [address] [place] [address] DERMATOLOGY [place], [place] [address] (Wo rk) 09/19/2039 Hospital Encounter Surgery Osman Barnett MD [facility] OTOLARYNGOLOGY Sharlene EPT. [place], [place] [address] (Wo rk) Scheduled Procedures Name Priority Associated Diagnoses Date/Time CORRECTION OF LAGOPHTHALMOS, Lagophthalmos of le ft upper IMPLANT UPPER LID LOAD (WRVU eyelid, unspecified lagophthalmos 6.36) type History of SCC (squamous cell carcinoma) of skin Open wound of neck, sequela DEBULKING OF FLAP,FACIAL Lagophthalmos of left u pper SUSPENSION (WRVU *) eyelid, unspecified lagophth almos type History of SCC (squamous cell carcinoma) of skin Open wound of neck, sequela ADJ.TISSUE TRANSFER, Lagophthalmos of left upper REARRANGEMENT, 10.1 TO 30 SQ.CM, eyelid, unspeci fied lagophthalmos NECK (WRVU 10.83) type History of SCC (squamous cell carcinoma) of skin Open wound of neck, sequela Health Maintenance Due Date Last Done Comments Covid-19 Vaccine (#1) 12/03/1956 Tdap adult 12/03/1970 Tetanus vaccine 12/03/1970 Zoster vaccine (1 of 2) 12/03/2001 AAA Screen 12/03/2016 Pneumoccocal Vaccine: 65+ (1 - PCV) 12/03/2016 Influenza (Flu) vaccine (1 of 1 - 11/19/2021 01/16/2002 Influenza standard series) Colonoscopy 07/06/2025 07/07/2015, 07/07/2015 Medical Devices Explanted Type Area Track Repairer Helper Device Shelf Model / Identifier Expiration Serial / Date Lot Port Infusion 8fr Cath Power Lp Ct Plastic Dignity ([id number]) -04/08/2020 IMPLANTS Right: [employer] - 05/18/2024 [id number] / Implanted: Qty: 1 on 04/08/2020 by Mann Escobar APRN [employer] IN [id number] / Explanted: Qty: 1 on 09/19/2020 by Trent Huff MD Wal l [id number] Description: 8F mini power port Procedures Procedure Name Priority Date/Time Associated Diagnosis Comme nts CT CHEST W CONTRAST Routine 10/12/2021 6:18 Squamous cell Resu lts for this PM EDT carcinoma of ear, left proce dure are in the results section. LAB SCAN 10/09/2021 12:00 Results for this AM EDT procedure are i n the results section. LAB SCAN 10/09/2021 12:00 Results for this AM EDT procedure are i n the results section. HC PROSTATE SPECIFIC Routine 10/08/2021 4:04 Elevated PSA Resu lts for this ANTIGEN PM EDT procedure are i n the results section. HC THYROID Routine 10/08/2021 2:26 Secondary Results for this STIMULATING HORMONE, PM EDT hypothyroidism proce dure are in SERUM the results section. XR CHEST PA AND Routine 10/08/2021 2:02 Squamous cell Results for this LATERAL PM EDT carcinoma of ear, left proce dure are in the results section. from Last [address] Chest w Contrast (10/12/2021 6:18 PM EDT) Anatomical Region Laterality Modality Chest Computed Tomography Specimen (Source) Anatomical Collection Method Collection Time Re ceived Time Location / / Volume Laterality 10/12/2021 6:36 PM EDT Impressions 10/13/2021 9:19 AM EDT New bilateral large partially necrotic masses are highly suspicious for pulmonary metastatic disease. Thank you for letting us participate in the care of this patient. ??If you are a health care provider and have any questi ons regarding this report, please contact the number below. ??For patients who have questions please contact the health reservoir caretaker that requested your imaging first. ? Electronically signed by: Leia Grissom MD, [facility] ([phone]), at 10/13/2021 9:19 AM Narrative 10/13/2021 9:19 AM EDT EXAMINATION: CT CHEST W CONTRAST CLINICAL HISTORY: Head/neck cancer, asse ss treatment response TECHNIQUE: Chest CT with 50 ml of Omnipa que 300 COMPARISON: PET/CT 02/12/2020. CT neck FINDINGS: Pulmonary parenchyma: New bilateral mass es involve the right upper, middle, and lower lobe as well as the left lower lob e. These measure between 3 cm and 6.5 cm in maximal diameters. Central low densit ies are consistent with some degree of necrosis. Airways: Central airways are patent. Rig ht basilar lower lobe bronchial occlusion due to mass effect. Pleura: No effusion. Lymph nodes: Right-sided masses extend t o the right hilum. No axillary, left hilar, or mediastinal lymphadenopathy. Heart and vasculature: Severe coronary a rtery atherosclerotic calcification. Moderate calcifications at the aortic va lve level. Limited upper abdomen: Stable small calc ifications in the right and left liver lobe. Skeleton: No significant finding. Procedure Note Leia Gutiérrez MD - 2021 EXAMINATION: CT CHEST W CONTRAST CLINICAL HISTORY: Head/neck cancer, asse ss treatment response TECHNIQUE: Chest CT with 50 ml of Omnipa que 300 COMPARISON: PET/CT 02/12/2020. CT neck FINDINGS: Pulmonary parenchyma: New bilateral mass es involve the right upper, middle, and lower lobe as well as the left lower lob e. These measure between 3 cm and 6.5 cm in maximal diameters. Central low densit ies are consistent with some degree of necrosis. Airways: Central airways are patent. Rig ht basilar lower lobe bronchial occlusion due to mass effect. Pleura: No effusion. Lymph nodes: Right-sided masses extend t o the right hilum. No axillary, left hilar, or mediastinal lymphadenopathy. Heart and vasculature: Severe coronary a rtery atherosclerotic calcification. Moderate calcifications at the aortic va lve level. Limited upper abdomen: Stable small calc ifications in the right and left liver lobe. Skeleton: No significant finding. IMPRESSION New bilateral large partially necrotic m asses are highly suspicious for pulmonary metastatic disease. Thank you for letting us participate in the care of this patient. If you are a health care provider and have any questi ons regarding this report, please contact the number below. For patients w ho have questions please contact the health reservoir caretaker that requested your imaging first. Eleazar Galdamez MD IMG CT ORDERABLES SCAN DOC: LAB (10/09/2021 12:00 AM EDT)Only the most recent of2 resultswithin the time period is included. Narrative This result has an attachment that is no t available. Unknown MEDIA MGR SCAN EXT ORDR/RSLT (ABNORMAL) PSA (Ultrasensitive), total and free (10/08/2021 4:04 PM EDT) Analysis Performed At [facility] Time Signature PSA Total 8.45 (H) 0.00 - [facility] (Ultrasensitiv 4.00 ng/mL [facility] Comment: PLEASE NOTE: The above reference interva l is intended for healthy males with an intact prostate. Values within this refe rence interval may indicate recurrence in men who have undergone radical prosta tectomy. This result was generated using a [employer] [place] immunoassay. ??Results obtained from other methods or manufacturers javier ot be used interchangeably with this method. PSA Free 1.1 ng/mL [facility] Comment: This result was generated using a [employer] [place] immunoassay. ??Results obtained from other methods or manufacturers javier ot be used interchangeably with this method. PSA % Free 13 % [facility] Comment: Probability of finding VENEER STACKER on needle bio psy by age in years: % fPSA ? 50-59yrs ? 60-69yrs ? >=70yrs <=10 ? 49.2 ? 57. 5 ? 64.5 11-18 ?26.9 ? 33. 9 ? 40.8 19-25 ?18.2 ? 23. 9 ? 29.7 >25 ? 9.1 ? 12 .2 ? 15.8 This result was generated using a [employer] [place] immunoassay. ??Results obtained from other methods or manufacturers javier ot be used interchangeably with this method. Specimen Anatomical Collection Method Collection Time Receive d Time (Source) Location / / Volume Laterality Blood 10/08/2021 4:04 PM 2 4:26 EDT PM EDT Resulting Agency Comment Spec In Lab Kacie Lobo [facility] CHEMISTRY ORDERABLES Performing Organization Address [facility]/ZIP Code Phon e Number [address] TSH (10/08/2021 2:26 PM EDT) P athologist Signature TSH 2.74 0.27 - 4.20 [facility] mcIU/mL [facility] Comment: Reference Interval (mcIU/mL): Females: ??First Trimester: 0.23-3.88 ??Second Trimester: 0.22-3.90 ??Third Trimester: 0.44-4.66 Specimen Anatomical Collection Method Collection Time Receive d Time (Source) Location / / Volume Laterality Blood 10/08/2021 2:26 PM 2 2:40 EDT PM EDT Resulting Agency Comment Spec In Lab Eleazar Galdamez MD CHEMISTRY ORDERABLES Performing Organization Address City/[facility]/[place] [address] XR Chest PA & Lateral (Generic) (10/08/2021 2:02 PM EDT) Anatomical Region Laterality Modality Chest N/A Digital Radiography Specimen (Source) Anatomical Location Collection Method / Collectio n Time Received Time / Laterality Volume Impressions 10/08/2021 2:15 PM EDT Probable bilateral pulmonary metastases. Thank you for letting us participate in the care of this patient. ??If you are a health care provider and have any questi ons regarding this report, please contact the number below. ??For patients who have questions please contact the health reservoir caretaker that requested your imaging first. ? Electronically signed by: Kenzie Branch, [facility] ([phone]), at 10/08/2021 2:15 PM Narrative 10/08/2021 2:15 PM EDT EXAMINATION: XR CHEST PA AND LATERAL (GENERIC) CLINICAL HISTORY: Squamous cell carcinom a skin, extensive, now with increasing dyspnea and weight loss. ? metastatic zechariah ng disease. TECHNIQUE: PA and lateral views of the chest COMPARISON: PET/CT 02/12/2020 FINDINGS: New multiple bilateral large pulmonary n odules and masses. The largest mass in the right lung measures 6.7 x 4.5 cm. Th e largest left lung lesion projects in the left lung base measuring approximate ly 5 cm x 5 cm. No pleural effusion. No pneumothorax. Surgical clips project ove r the left lung apex. The cardiac silhouette is within normal limits. Procedure Note Sergo Nath MD - 10/08/2021Formattin g of this note might be different from the original. EXAMINATION: XR CHEST PA AND LATERAL (GE NERIC) CLINICAL HISTORY: Squamous cell carcinom a skin, extensive, now with increasing dyspnea and weight loss. ? metastatic zechariah ng disease. TECHNIQUE: PA and lateral views of the chest COMPARISON: PET/CT 02/12/2020 FINDINGS: New multiple bilateral large pulmonary n odules and masses. The largest mass in the right lung measures 6.7 x 4.5 cm. Th e largest left lung lesion projects in the left lung base measuring approximate ly 5 cm x 5 cm. No pleural effusion. No pneumothorax. Surgical clips project ove r the left lung apex. The cardiac silhouette is within normal limits. IMPRESSION Probable bilateral pulmonary metastases. Thank you for letting us participate in the care of this patient. If you are a health care provider and have any questi ons regarding this report, please contact the number below. For patients w ho have questions please contact the health reservoir caretaker that requested your imaging first. Eleazar Galdamez MD IMG DX ORDERABLES from Last 3 Months Insurance Payer Benefit Plan / Subscriber ID Effective Phone Address T ype Group Dates MEDICARE MEDICARE PART A [id number] 2020-Prese [phone] [facility] [address] AARP SUPPLEMENT AARP SUPPLEMENT [id number] 2020-[place]se [address] [place] [address] Advance Directives Documents on File Type Date Recorded Patient Accident Report Clerk Explanati on Advance Directives and Living 10/22/2019 11:05 AM Will Latest Code Status on File Code Status Date Activated Date Inactivated Comments Attempt Cardiopulmonary Resuscitation - 09/19/2020 12:20 PM 09/21/19 21 4:34 AM Inpatient Code Status decision made by: Patient Attempt Cardiopulmonary Resuscitation - 04/08/2020 1:06 PM 021 4:59 AM Inpatient Code Status decision made by: Patient Attempt Cardiopulmonary Resuscitation - 02/20/2020 7:28 PM 020 12:52 PM Inpatient Code Status decision made by: Patient Care Teams Automotive Electrician Helper Relationship Specialty Start Date End Date Tara Joya MD PCP - General Family Medicine 05/16/[address] [place] [address]
--- OUTSIDE RECORDS SUMMARY | 2021-10-21 07:56 | XMS_ITS | Encounter Summary ---
:1950 Author Organization [facility] [place] [address] Care Team Providers Name Role Phone Tara Joya MD Primary Care Provider [phone] Encounter Details Date Type Department Care Team Description 08/24/2021 Orders Only Otolaryngology at [facility] Paydarfar, Lagophthalmos of left upper eyelid, unspecified lagophthalmos type; [facility] Sharlene Lobo MD History of SCC (squamous cell carcinoma) of skin; [place] [address] [facility] Open wound of neck, sequela [phone] [place] [address] Social History Tobacco Use Types Packs/Day Years Used Date Former Smoker Cigarettes 1 40 Quit: 01/09/20 03 Smokeless Tobacco: Never Used Alcohol Use Standard Drinks/Week Comments No 0 (1 standard drink = 0.6 oz pure alcoho l) Sex Assigned at Date Recorded Not on file documented as of this encounter Plan of Treatment Upcoming Encounters Date Type Specialty Care Team Description 10/21/2021 Infusion Hematology and Oncology 11/09/2021 Office Visit Hematology and Oncology Alhaji Ritchie MD [facility] ONCOLOGY DEPT. [place], [place] [address] (Wo rk) 11/09/2021 Infusion Hematology and Oncology 12/10/2021 Office Visit Dermatology Silas Walters MD [address] [place] [address] DERMATOLOGY [place], [place] [address] (Wo rk) 09/19/2039 Hospital Encounter Surgery Osman Barnett MD [facility] OTOLARYNGOLOGY Sharlene EPT. [place], [place] [address] (Wo rk) Scheduled Orders Name Type Priority Associated Diagnoses Order S chedule SURGICAL CASE REQUEST Procedures Routine Lagophthalmos of le ft Ordered: 08/24/2021 NO POSTOP PAIN: upper eyelid, CORRECTION OF unspecified LAGOPHTHALMOS, IMPLANT lagophtha lmos type UPPER LID LOAD (WRVU History of SCC (squa mous 6.36), DEBULKING OF cell carcino ma) of skin FLAP,FACIAL SUSPENSION Open wound of neck , (WRVU *), ADJ.TISSUE sequela TRANSFER, REARRANGEMENT, 10.1 TO 30 SQ.CM, NECK (WRVU 10.83) Scheduled Procedures Name Priority Associated Diagnoses Date/Time [...] of skin Open wound of neck, sequela documented as of this encounter Visit Diagnoses Diagnosis Lagophthalmos of left upper eyelid, unsp ecified lagophthalmos type History of SCC (squamous cell carcinoma) of skin Personal history of other malignant neop lasm of skin Open wound of neck, sequela documented in this encounter Care Teams Roller Presser Operator Relationship Specialty Start Date End Date Tara Joya MD PCP - General Family Medicine 05/16/[address] [place] [address] documented as of this encounter
--- OUTSIDE RECORDS SUMMARY | 2021-10-21 07:56 | XMS_ITS | Encounter Summary ---
:1950 [place] [address] Care Team Providers Name Role Phone Tara Joya MD Primary Care Provider [phone] Encounter Details Date Type Department Care Team Description 10/08/2021 Laboratory Appointment Lab 3L [facility] Secondary hypothyroidism; [place] [id number] Social History Tobacco Use Types Packs/Day Years [...] Visit Hematology and Oncology Alhaji Ritchie MD [facility] DR ONCOLOGY DEPT. [place], [place] [address] (Jin carson) 11/09/2021 Infusion Hematology and Oncology 12/10/2021 Office Visit Dermatology Silas Walters MD [address] [place] [address] DERMATOLOGY [place], [place] [address] (Jin carson) 09/19/2039 Hospital Encounter Surgery Osman Barnett MD [facility] OTOLARYNGOLOGY D EPT. [place], [place] [address] (Jin carson) Scheduled Procedures Name Priority Associated Diagnoses Date/Time [...] neck, sequela documented as of this encounter Procedures Procedure Name Priority Date/Time Associated Diagnosis Comme nts PROSTATE SPECIFIC Routine 10/08/2021 4:04 Elevated PSA Resu lts for this ANTIGEN PM EDT procedure are i n the results section. THYROID Routine 10/08/2021 2:26 Secondary Results for this STIMULATING HORMONE, PM EDT hypothyroidism proce dure are in SERUM the results section. documented in this encounter Results (ABNORMAL) PSA (Ultrasensitive), total and free (10/08/2021 4:04 PM EDT) Analysis Performed At [facility] Time Signature PSA Total 8.45 (H) 0.00 - [facility] (Ultrasensitiv 4.00 ng/mL [facility] Comment: PLEASE NOTE: The above reference interva l is intended for healthy males with an intact prostate. Values within this refe rence interval may indicate recurrence in men who have undergone radical prosta tectomy. This result was generated using a [employer] Camden immunoassay. ??Results obtained from other methods or manufacturers javier ot be used interchangeably with this method. PSA Free 1.1 ng/mL [facility] Comment: This result was generated using a Pedro [place]den immunoassay. ??Results obtained from other methods or manufacturers javier ot be used interchangeably with this method. PSA % Free 13 % [facility] Comment: Probability of finding BENCH MECHANIC on needle bio psy by age in years: % fPSA ? 50-59yrs ? 60-69yrs ? >=70yrs <=10 ? 49.2 ? 57. 5 ? 64.5 11-18 ?26.9 ? 33. 9 ? 40.8 19-25 ?18.2 ? 23. 9 ? 29.7 >25 ? 9.1 ? 12 .2 ? 15.8 This result was generated using a [employer] [place] immunoassay. ??Results obtained from other methods or manufacturers javier ot be used interchangeably with this method. Specimen Anatomical Collection Method Collection Time Receive d Time (Source) Location / / Volume Laterality Blood 10/08/2021 4:04 PM 2 4:26 EDT PM EDT Resulting Agency Comment Spec In Lab Kacie Rabago APRN CHEMISTRY ORDERABLES Performing Organization Address City/State/[place] [address] TSH (10/08/2021 2:26 PM EDT) P athologist Signature TSH 2.74 0.27 - 4.20 IMAN MOREJON mcIU/mL [facility] Comment: Reference Interval (mcIU/mL): Females: ??First Trimester: 0.23-3.88 ??Second Trimester: 0.22-3.90 ??Third Trimester: 0.44-4.66 Specimen Anatomical Collection Method Collection Time Receive d Time (Source) Location / / Volume Laterality Blood 10/08/2021 2:26 PM 2 2:40 EDT PM EDT Resulting Agency Comment Spec In Lab Eleazar Galdamez MD CHEMISTRY ORDERABLES Performing Organization Address City/State/[place] [address] documented in this encounter Visit Diagnoses Diagnosis Secondary hypothyroidism Other specified acquired hypothyroidism Elevated PSA Elevated prostate specific antigen (PSA) documented in this encounter Care Teams Staff Radiation Therapist Relationship Specialty Start Date End Date Tara Joya MD PCP - General Family Medicine 05/16/[address] [place] [facility] [place] [address] documented as of this encounter
--- OUTSIDE RECORDS SUMMARY | 2021-10-21 07:56 | XMS_ITS | Encounter Summary ---
:1950 Author Organization [facility] Address [facility] [place] [address] Care Team Providers Name Role Phone Tara Joya MD Primary Care Provider [phone] Reason for Visit Reason Comments Follow-up Bothersome bone on left side of head. Encounter Details Date Type Department Care Team Description 09/10/2021 Office Visit Otolaryngology at [facility] [place], Lagophthalmos of left upper eyelid, unspecified lagophthalmos type; [facility] Osman Lobo MD Sebaceous cyst; [facility] Postoperative examination; [place] [address] Postoperative wound dehiscence, [facility] [place] encounter [phone] OTOLARY[address]Y DEPT. [place] [id number] Social History Tobacco Use Types Packs/Day Years Used Date Former Smoker Cigarettes 1 40 Quit: 01/09/20 03 Smokeless Tobacco: Never Used Alcohol Use Standard Drinks/Week Comments No 0 (1 standard drink = 0.6 oz pure alcoho l) Sex Assigned at Date Recorded Not on file documented as of this encounter Last Filed Vital Signs Vital Sign Reading Time Taken Comments Blood Pressure - - Pulse - - Temperature - - Respiratory Rate - - Oxygen Saturation - - Inhaled Oxygen Concentration - - Weight 67.5 kg (148 lb 12.8 oz) 09/10/2021 10:55 AM EDT Height 175.3 cm (5' 9) 09/10/2021 10:55 AM EDT Body Mass Index 21.97 09/10/2021 10:55 AM EDT documented in this encounter Progress Notes Aracely Ewing MD - 09/10/2021 11:00 AM EDT [facility] Follow Up Progress Note ?? ID: Ward is a 70 year old with a hx of pT4a N3b of the left ear. Here for a recheck with concerns ofbone exposure. Patient presents with pT4a N3b of??left ear. In detail: A. 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 Rapidly growing mass L parotid into external ear & EAC; Bx 01/31/2020: mod diff SCCa C. Total parotidectomy, temporal bone resection, partial auriculectomy, pec major flap 02/20/2020: 6.8 cm tumor, tumor at deep parotid margin and into bone; LVI (extensive, large vein), PNI (+); nodes involved, EDILBERTO(+) D. Tarsorrhaphy and G tube placement 05/13/20 (removed November 2020). D. Adjuvant radiation with concurrent weekly cisplatin 04/14 - 05/28/2020 ?? Interval history since last visit: Patient last seen 08/03/21. At that time he was having difficulty shooting due to eye not closing completely. He was still considering gold weighted implant. He has also noted a bony exposure in the right post auricular lesion. There was discussion of muscular closure. He has continued to clean the area with hydrogen peroxide and applying Aquaphor. No new pain, no new throat pain or difficulty swallowing. He has been eating and drinking without issues. No changes in appetite but continues to have somewhat poor appetite since surgery. No significant weight loss. Diet: Normal ?? PROBLEM LIST: Patient Active Problem List Diagnosis Code ??? CAD (coronary artery disease) I25.10 ??? Hyperlipemia E78.5 ??? Bipolar affective disorder F31.9 ??? BPH (benign prostatic hyperplasia) N40.0 ??? Psoriasis L40.9 ??? H/O drug abuse F19.11 ??? Hepatitis C B19.20 ??? Basal cell cancer C44.91 ??? Hypertriglyceridemia E78.1 ??? AK (actinic keratosis) L57.0 ??? Basal cell carcinoma C44.91 ??? Seborrheic keratosis, inflamed L82.0 ??? PTTD (posterior tibial tendon dysfunction) M76.829 ??? Left foot pain M79.672 ??? History of basal cell carcinoma Z85.828 ??? Mass of left ear H93.8X2 ??? Parotid mass K11.8 ??? 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 Hearing loss H91.90 ??? Encounter for venous access device care Z45.2 ??? Chemotherapy-induced nausea R11.0, T45.1X5A ??? 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 Dysphagia R13.10 PAST MEDICAL HISTORY: No past medical history on file. SOCIAL HISTORY: Social History Socioeconomic History ??? Marital status: Spouse name: Not on file ??? Number of children: Not on file ??? Years of education: Not on file ??? Highest education level: Not on file Occupational History ??? Occupation: retired Tobacco Use ??? Smoking status: Former Smoker Packs/day: 1.00 Years: 40.00 Pack years: 40.00 Types: Cigarettes Quit date: 01/08/2003 Years since quittin.6 ??? Smokeless tobacco: Never Used Vaping Use ??? Vaping Use: Never used Substance and Sexual Activity ??? Alcohol use: No ??? Drug use: Yes Frequency: 1.0 times per week Types: Marijuana Comment: rare ??? Sexual activity: Not on file Other Topics Concern ??? Do You live alone? Not Asked ??? Tobacco in Home Not Asked Social History Narrative (02/2020) lives with his of 49 years in [facility]. 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 Two adult sons live in this building and are involved in pt's care. Social Determinants of Health Financial Resource Strain: Not on file Food Insecurity: Not on file Transportation Needs: Not on file Physical Activity: Not on file Housing Stability: Not on file MEDICATIONS: Current Outpatient Medications: ??? pantothenic Ac-Min Oil-Pet,Hyd (AQUAPHOR) 41 % Ointment, Apply topically., Disp: , Rfl: ??? acetaminophen (Tylenol) 500 mg Tablet, Take 1,000 mg by mouth every 8 hours as needed for Pain.,Disp: , Rfl: ??? Ibuprofen 200 mg Capsule, Take by mouth as needed., Disp: , Rfl: ??? nitroGLYcerin (NITROSTAT) 0.4 mg Tablet, Sublingual, as needed., Disp: , Rfl: ??? ABILIFY 15 mg Tablet, Take 15 mg by mouth daily., Disp: , Rfl: ??? metoprolol succinate (TOPROL-XL) 50 mg 24 hr tablet, Take 1 tablet by mouth daily., Disp: 30 tablet, Rfl: 12 ??? atorvastatin (LIPITOR) 20 mg tablet, Take 40 mg by mouth daily., Disp: , Rfl: ??? fenofibrate (TRICOR) 145 mg tablet, Take 145 mg by mouth daily., Disp: , Rfl: ??? lamoTRIgine (LaMICtal) 200 mg Tablet, Take 200 mg by mouth 2 times daily., Disp: , Rfl: ??? amitriptyline (ELAVIL) 50 mg tablet, Take 100 mg by mouth nightly., Disp: , Rfl: ??? aspirin 81 mg EC tablet, Take 81 mg by mouth daily., Disp: , Rfl: ALLERGIES: Allergies Allergen Reactions ??? Penicillins rash ??? Codeine Phosphate Rash ROS: Pertinent positive findings discussed above. No other findings on review of constitutional visual, cardiovascular, respiratory, gastrointestinal, musculoskeletal, dermatologic, neurological, psychiatric, endocrine, hematologic or immunologic systems. ?? PHYSICAL EXAMINATION: General: Well developed, no distress Head/face: Normocephalic, atraumatic. Eyes: PERRLA, the left upper lid does close but with effort. The right eye and lid are wnl. Ears: Auricle on the right wnl. There is a sebaceous cyst along the postauricular are that is white and raised. The right EAC is wnl. Tympanic membrane wnl. The left has part of the auricle remnant with malpositioning. With flap in place that is well vascularized. Along the postauricular area on the le ft is a bone exposure .25mm with no evidence of infection. . Oral cavity: Normal exam of the floor of mouth without lesions, tongue soft/mobile. Oral mucosa and palate pink, moist. No lesions or bleeding in oral cavity. Left lower lip with mild drop. Oropharynx: Soft palate, lateral pharyngeal wall, posterior pharynx symmetric, pink, moist, no lesions. Neck: No adenopathy, no masses, normal thyroid, normal salivary gland exam. Trachea midline. Neuro: Left lower lip weakness; Otherwise normal II-XII grossly intact.and symmetric. Psych: mood and affect appropriate to situation. Responds appropriately to questions. did examine him today. ?? ASSESSMENT/RECOMMENDATIONS: Assessment/Recommendations: A: 70 year old with a hx of pT4a N3b of the left ear s/p left total parotidectomy, temporal bone resection, partial auriculectomy, pec major flap 02/20/2020 Now with bony exposure along the left post auricular area. -Plan for excision of RIGHT postauricular cyst, LEFT debulking of flap and coverage of exposed bone with rotational flap/previous flap as well as gold weight implant for LEFT eye. Consent will be done the day of surgery. The operating room surgical technician was notified of the need for surgery. 8 mm gold weighted im plant fitted today in clinic. -Monitor for any infection issues. Continue to clean the bone exposure with hydrogen peroxide /and water daily and the Aquaphor bid. F/u per grid. Aracely Ewing MD ENT PGY-3 3044 Osman Humphrey MD - 09/10/2021 11:00 AM EDT [facility] OTOLARYNGOLOGY Attending Note Patient was seen and examined with the above resident. I agree with the history, exam findings, and recommendations. Summary We fitted him with an 8 mm implant and he reported good eye closure Will plan on gold weight, flap revision and excision of right post auricular lesion in the near future. I appreciate the opportunity to be involved in Mr. Santamaria's care. OSMAN HUMPHREY MD 09/15/2021 documented in this encounter Plan of Treatment Upcoming Encounters Date Type Specialty Care Team Description 10/21/2021 Infusion Hematology and Oncology 11/09/2021 Office Visit Hematology and Oncology Alhaji Ritchie MD [facility] DR ONCOLOGY DEPT. [place], [place] [address] (Wo rk) 11/09/2021 Infusion Hematology and Oncology 12/10/2021 Office Visit Dermatology Silas Walters MD [address] DERMATOLOGY [place], [place] [address] (Wo rk) 09/19/2039 Hospital Encounter Surgery Osman Humphrey MD [facility] OTOLARYNGOLOGY D EPT. [place], [place] [address] (Wo rk) Scheduled Procedures Name [...] left upper eyelid, unsp ecified lagophthalmos type Sebaceous cyst Postoperative examination Follow-up examination, following unspeci fied surgery Postoperative wound dehiscence, subseque nt encounter documented in this encounter Care Teams Sheeting Puller Relationship Specialty Start Date End Date Tara Joya MD PCP - General Family Medicine 05/16/[address] [place] [address] documented as of this encounter
--- OUTSIDE RECORDS SUMMARY | 2021-10-21 07:56 | XMS_ITS | Encounter Summary ---
:1950 Author Organization [facility] Address [address] [place] [address] Care Team Providers Name Role Phone Unknown, Provider Primary Care Provider Encounter Details Date Type Department Care Team Description 06/11/2020 Lab Requisition [facility] Outr Resulting Lab, Pathology & Laboratory Provider General acute hospital [address] [place] [address] Social History Tobacco Use Types Packs/Day Years Used Date Never Assessed Sex Assigned at Date Recorded Not on file documented as of this encounter Plan of Treatment Not on filedocumented as of this encounter Procedures Procedure Name Priority Date/Time Associated Diagnosis Comme nts PREALBUMIN Routine 06/11/2020 14:05 EDT Results for this procedure are i n the results section . documented in this encounter Results PREALBUMIN (06/11/2020 14:05 EDT) Pathologist Sig nature Prealbumin 27 20 - 40 mg/dL [facility] Specimen Blood - Venous blood (substance) Performing Organization Address City/State/ZIP Code Phon e Number [facility] [address] [place] [address] SERVICES documented in this encounter Visit Diagnoses Not on filedocumented in this encounter Care Teams Cooker Chip Relationship Specialty Start Date End Date Unknown, Provider, PCP - General 12/20/19 documented as of this encounter
--- OUTSIDE RECORDS SUMMARY | 2021-10-21 07:56 | XMS_ITS | Encounter Summary ---
:1950 Author Organization [facility] [place] [address] Care Team Providers Name Role Phone Tara Joya MD Primary Care Provider [phone] Reason for Visit Consultation (Routine) - Closed Specialty Diagnoses / Procedures Referred By Contact Refer red To Contact Urology Diagnoses 09/14/21 - IBM TO CHANEL - ELEVATED PSA Tara Joya MD [facility] [place] [facility] [address] [place] [address] [place] [address] Fax: Referral ID Status Reason Start Date Expiration Date Visits V isits Requested Authorized [id number] Closed Consult, 08/19/2021 08/19/2022 1 1 Test & Treat Encounter Details Date Type Department Care Team Description 10/08/2021 [place] Visit [place] [facility] [place]ac[place] Rabago APRN Nephrolithiasis; [facility] La vated PSA; Drive Benign localized prostatic hyperplasia w ith lower urinary tract symptoms (LUTS) [place], [place] UROLOGY [address] [place] [address] [phone] Social History Tobacco Use Types Packs/Day Years Used Date Former Smoker Cigarettes 1 40 Quit: 01/09/20 03 Smokeless Tobacco: Never Used Alcohol Use Standard Drinks/Week Comments No 0 (1 standard drink = 0.6 oz pure alcoho l) Sex Assigned at Date Recorded Not on file documented as of this encounter Last Filed Vital Signs Vital Sign Reading Time Taken Comments Blood Pressure 119/62 10/08/2021 2:50 PM EDT Pulse 74 10/08/2021 2:50 PM EDT Temperature - - Respiratory Rate - - Oxygen Saturation - - Inhaled Oxygen Concentration - - Weight - - Height - - Body Mass Index - - documented in this encounter Progress Notes Kacie Rabago, JACQUE - 10/08/2021 3:00 PM EDT Urologic Outpatient Consult Note HPI: Ward Santamaria is a 70 y.o. year old male referred by for evaluation of an abnormal ZENA/elevated PSA found on yearly screening. PSA History review: 08/18/2021: 6.61 Biopsy history: none He does not have a family history of prostate cancer Pt reports no recent changes in his voiding, he does not have nocturia/frequency/urgency. Complaining of urination every 2 hours during the day. Up 5- 6 times at night. Does not feel like feel like he empties well. Does not strain to urinate. He has lost 13 pounds in the past 2 months. He is not having any urinary leakage, but has come close a few times. Denies pain with urination. Denies hematuria. 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 While in the office with me,the patient received a call from Dr. Galdamez that the recent chest xray revealed Pulmonary nodules. He will be getting a chest CT as further work up. Currently experiencing erectile dysfunction. He has tried Viagra but it made him feel funny so he stopped. He denies any new back or bone pain, no weight loss that is unexplained. His appetite is good. He has not had any recent travel outside the [place]. No recent abx in the last 6 months No family member in household works in healthcare Anticoagulation: Aspirin 81 mg for cardiac stent in 2000. Heart valve replacement or joint replacement: no Patient Active Problem List Diagnosis Code ??? [...] left upper eyelid H02.204 ??? Dysphagia R13.10 History or kidney stones x 4. Last stone 12/2014 Past Surgical History: Procedure Laterality Date ??? IR MEDIPORT PLACEMENT 04/08/2020 IR Mediport Placement 04/08/2020 Mann Escobar APRN [facility] INTERVENTIONL RAD ??? IR MEDIPORT REMOVAL 09/19/2020 IR Mediport Removal 09/19/2020 Trent Huff MD [facility] INTERVENTIONL RAD ??? KIDNEY STONE SURGERY ??? PRG SOMATOSENSORY TEST, ANY/ALL PER. NERVES, TRUNK OR HEAD N/A 02/20/2020 FACIAL NERVE MONITORING, SETUP PERIPHERAL (WRVU 0.54) performed by Osman Barnett MD at [facility] MAIN OR ??? PRO ADJ TISS TRANSFER/REARRANGEMENT ANY AREA 30.1-60 SQCM Left 02/20/2020 ADJACENT TISSUE TRANSFER OR REARRANGEMENT; 30.1 TO 60.0 SQ CM, THORAX (WRVU 12.65) performed by Osman Barnett MD at [facility] MAIN OR ??? PRO ADJ TISS TRANSFER/REARRANGEMENT ANY AREA EA ADDL 30SQCM Left 02/20/2020 ADJACENT TISSUE TRANSFER OR REARRANGEMENT; EA ADD'L 30.0 SQ CM, OR PART OF (WRVU 3.73) performed byOsman Barnett MD at [facility] MAIN OR ??? PRO COLONOSCOPY, REMV LESN, SNARE N/A 07/07/2015 COLONOSCOPY, POLYPECTOMY, REMOVAL LESION BY SNARE performed by Jose Manuel Heller MD at [facility] ENDOSCOPY ??? PRO EXC PAROTD, TOTAL, DISSECT 5TH NERV Left 02/20/2020 EXCISION OF PAROTID TUMOR OR PAROTID GLAND, TOTAL, WITH DISSECTION AND PRESERVATION OF FACIAL NERVE(WRVU 19.53) performed by Osman Barnett MD at [facility] MAIN OR ??? PRO EXC SKIN MALIG 3.1-4CM FACE, FACIAL Left 02/20/2020 EXC MALIGNANT LESION, 3.1 TO 4.0CM, FACE (WRVU 4.34) performed by Osman Barnett MD at [facility] MAIN OR ? ? PRO EXC SKIN MALIG >4CM FACE, FACIAL Left 02/20/2020 EXC MALIGNANT LESION, >4.0CM, EARS (WRVU 6.26) performed by Osman Barnett MD at [facility] [place] ??? PRO LARYNGOSCOPY, DIRECT, DX, OP MICROSCOP N/A 05/13/2020 LARYNGOSCOPY, WITH MICROSCOPE (WRVU 2.57) performed by Osman Barnett MD at [facility] MAIN OR ??? PRO MICROSURG TECHNIQUES, REQ OPER MICROSCOPE N/A 02/20/2020 MICROSCOPE USE (WRVU 3.46) performed by Neo Gilman MD at [facility] MAIN OR ??? PRO MUSCLE-SKIN FLAP, TRUNK Left 02/20/2020 FLAP, MYOCUTANEOUS OR FASCIOCUTANEOUS, TRUNK (WRVU 19.86) performed by Osman Barnett MD at [facility] MAIN OR ??? PRO PLACE PERCUT GASTROSTOMY TUBE N/A 05/13/2020 ENDOSCOPY W DIRECTED PLACEMENT PERCUTANEOUS GASTROSTOMY TUBE-PEG (WRVU 3.66) performed by Trent Wood MD at [facility] MAIN OR ??? PRO REMOVAL NODES, NECK, CERV MOD RAD Left 02/20/2020 @CERVICAL LYMPHADENECTOMY (MODIFIED RADICAL NECK DISSECTION) (WRVU 23.95) performed by Osman Barnett MD at [facility] MAIN OR ??? PRO RESECT TEMPORAL BONE, DENTAL CERAMIST HELPER APPRCH Left 02/20/2020 @RESECTION TEMPORAL BONE, EXTERNAL APPROACH (WRVU 37.42) performed by Neo Gilman MD at [facility] [place] ??? PRO TEMP CLOSURE EYELID BY SUTURE Left 05/13/2020 TEMPORARY CLOSURE OF EYELID BY SUTURE, TARSORRHAPHY (WRVU 1.35) performed by Osman Barnett MD at [facility] MAIN OR Social history: Lives at home with . FamHx: Mom with liver cancer and breast cancer. Dad with black lung. ROS: Constitutional: Denies fever, chills. 13 pounds unexplained weight loss Eyes: Denies acute vision change ENT: Denies sinus congestion, recent URI Pulmonary: SOB with exercise x the last couple of weeks. Cardiovascular: Denies chest pain, arrhythmia, CA GI:Denies GI bleed, GERD, constipation or diarrhea : As per HPI Endocrine: Denies diabetes, thyroid disease Integumentary: Denies skin cancer, rash Heme/lymph: Easy bleeding and bruising. Neurologic: Denies CVA/TIA. Memory issues. Getting worse over the past couple of years. Psychiatric: Denies depression or anxiety Musculoskeletal: Denies back pain, weakness Allergy/immunology: Denies immune disorder Anesthesia complications: Denies PE: Thin, pale, and ill appearing. Abdomen: His abdomen is soft, NT, ND with no palpable masses no CVAT. no hernias noted : circumcised phallus with orthotopic meatus, no urethral discharge. bilateral testicles and epididymi are without nodules, skin of scrotum and kailyn-anal region without lesions Rectal: prostate smooth and firm. Moderately large. Skin: warm and dry, no lesions Musculoskeletal: symmetric without gait abnormalities Neurologic: Memory issues. Continuously lost train of though and requested that I repeat questions. PVR by my review using bladder scanner with patient in the supine position: 80-90cc Urinalysis by my review: Negative for leukocytes, nitrates, and heme. SG 1.030 NCI prostate cancer risk calculator: 11 % risk of high grade prostate cancer 21% risk of low grade prostate cancer 68% chance of having a negative prostate biopsy Impression: Elevated PSA with indeterminate ZENA LUTS History of Nephrolithiasis. Plan/Recommendations: ?? I discussed the significance of an elevated PSA and his ZENA findings with the pt, specifically the implications in predicting the presence of prostate cancer. We discussed his NCI prostate cancer risks per above. We discussed possibility of low vs high grade disease and the risks associated each ofthese types of prostate cancer. ?? PSA total and free today ?? SRINIVASA for follow up of history of kidney stones. ?? Tamsulosin 0.4mg daily for LUTS. Reviewed mechanism of action as well as pros and cons. Advised to get up/change positions slowly to prevent dizziness. documented in this encounter Plan of Treatment Upcoming Encounters Date Type Specialty Care Team Description 10/21/2021 Infusion Hematology and Oncology 11/09/2021 Office Visit Hematology and Oncology Alhaji Ritchie MD [facility] [address] ONCOLOGY DEPT. [place], [place] [address] (Wo rk) 11/09/2021 Infusion Hematology and Oncology 12/10/2021 Office Visit Dermatology Silas Walters MD [address] [facility] DERMATOLOGY [place], [place] [address] (Wo rk) 09/19/2039 Hospital Encounter Surgery Osman Barnett MD [facility] OTOLARY[facility]OLOGY D EPT. [place], [place] [address] (Wo rk) Scheduled Orders Name Type Priority Associated Diagnoses Order S chedule US Retroperitoneal Complete Imaging Routine Nephrolithias is Expected: 10/22/2021, Exp ires: 02/08/2022 Scheduled Procedures Name Priority Associated Diagnoses Date/Time [...] neck, sequela documented as of this encounter Results (ABNORMAL) PSA (Ultrasensitive), total and free (10/08/2021 4:04 PM EDT) Analysis Performed At [facility] Time Signature PSA Total 8.45 (H) 0.00 - IMAN MOREJON (Ultrasensitiv 4.00 ng/mL [facility] Comment: PLEASE NOTE: The above [...] with this method. PSA Free 1.1 ng/mL [facility] Comment: This result was generated using a Pedro Camden immunoassay. ??Results obtained from other methods or manufacturers javier ot be used interchangeably with this method. PSA % Free 13 % [facility] Comment: Probability of finding FOOD SCIENTIST on needle bio psy by age in [...] Resulting Agency Comment Spec In Lab Kacie A [facility] JACQUE CHEMISTRY ORDERABLES Performing Organization Address City/State/[place] [address] documented in this encounter Visit Diagnoses Diagnosis Nephrolithiasis Calculus of kidney Elevated PSA Elevated prostate specific antigen (PSA) Benign localized prostatic hyperplasia w ith lower urinary tract symptoms (LUTS) Benign localized hyperplasia of prostate with urinary obstruction and other lower urinary tract symptoms (LUTS) documented in this encounter Care Teams Evp Strategy Relationship Specialty Start Date End Date Tara Joya MD PCP - General Family Medicine 05/16/[address] [place] [address] documented as of this encounter
--- OUTSIDE RECORDS SUMMARY | 2021-10-21 07:56 | XMS_ITS | Encounter Summary ---
:1950 Author Organization [facility] [place] [address] Care Team Providers Name Role Phone Tara Joya MD Primary Care Provider [phone] Encounter Details Date Type Department Care Team Description 10/19/2021 Office Visit Hematology/Oncology Ashok Ritchie Squa mous cell carcinoma of ear, left; at [facility] Abnormal weight loss; [address] [place] [address] [place], [place] [address] ONCOLOGY DEPT. [phone] [place], [place] [address] Social History Tobacco Use Types Packs/Day Years [...] Mass Index 21.43 10/19/2021 1:43 PM EDT documented in this encounter Progress Notes Ashok Ritchie MD - 10/19/2021 1:45 PM EDT Images from the original note were not included. Hematology/Oncology Clinic [facility] Patient Active Problem List Diagnosis ??? 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 History [...] involved, EDILBERTO(+) D. Adjuvant radiation with concurrent weekly cisplatin 04/14 - 05/28/2020 E. Multiple lung metastases 09/2021 Adjuvant Chemoradiation Patient's Name: Ward Santamaria RT End Date: 05/28/2020 Year 1 Post Surg wk 1 wk 2 wk 3 wk 4 wk 5 wk 6 wk 7 3 mo 4 mo 5 mo 6 mo 9 mo 08/28/20 09/27/20 10/28/20 11/28/20 02/27/21 ON ACTIVE TREATMENT COMPLETED TREATMENT Pull[place] - MD x x Julio Cesar - AP x [...] x x x x x x PRN PRN TSH PRN PRN 1 to 5 Years 12 mo 15 mo 18 mo 21 mo 24 mo 2.5 yrs 3 yrs 3.5 yrs 4 yrs 4.5 yrs 5 yrs 0308/28/21 11/28/21 02/27/22 05/28/22 11/28/22 05/29/23 11/29/23 05/28/24 11/28/24 05/28/25 COMPLETED TREATMENT Pullman - MD x x x Julio Cesar - AP x x Med Onc x x x Rad Onc x x x Speech PRN Soc Work PRN PT PRN Nutrition PRN PET/CT CT neck x Labs: CBC, CMP PRN PRN PRN PRN Labs: TSH x x x x PCP Lung imaging* x x x PCP *Lung imaging: <10 pack-years: not needed >10 pack-years and high risk (age 55+, 30+ P-Y tobacco history within 15 years, willing/able to consider lung ca tx): consider ordering CT Chest Screening Lung Cancer. > 10 pack-years and intermediate risk (age 50+, 20+ P-Y, willing/able to consider lung ca tx): consider ordering Chest Xray PA/lateral. Over 5 YEARS: Alternate annual follow-up appointments between Pullman AP and MD, beginning with AP at 6-year appt. ??? Dysphagia ??? Lagophthalmos of left upper eyelid Added automatically from request for surgery [id number] ??? Encounter for venous access device care ??? Chemotherapy-induced nausea ??? Hearing loss Bilateral hearing aids prior to surgical loss of L ear 02/2020 ??? Mass of left ear Added automatically from request for surgery [id number] ??? Parotid mass Added automatically from request for surgery [id number] ??? History of basal cell carcinoma ??? Left foot pain ??? PTTD (posterior tibial tendon dysfunction) ??? Seborrheic keratosis, inflamed ??? AK (actinic keratosis) ??? Basal cell carcinoma ??? CAD (coronary artery disease) 2001- stent to mid CCX, no other CAD MIBI 12/2012 Max Exercise: 7:30, 1:30 Stage III Stevie 9 METS Max HR: 125< 85 % PMR(134) Max BP: 160/[address] change: none Reason for Termination: slight arm pain, fatigue Imaging: Questionable small apical inferior lateral defect EF 62 % ??? Hyperlipemia ??? Bipolar affective disorder ??? BPH (benign prostatic hyperplasia) ??? Psoriasis ??? H/O drug abuse ??? Hepatitis C Treated, PCR negative ??? Basal cell cancer ??? Hypertriglyceridemia Ward returns to medical oncology clinic to discuss newly discovered lung metastases. He is accompanied today by Yusef his . He has been followed periodically with no signs of regional recurrence at checkups with ENT and radiation oncology. I last saw him in November 2020 and he was doing well. He has had relatively minor problems with some bone exposure at the left mastoid, and with incomplete closure of his left eyelid for which a gold weight implant was being planned. However, at a follow-up visit with Dr. Prosper Galdamez radiation oncology earlier this summer, he complained of unexpected weight loss as well as mild dyspnea on exertion. The weight loss was despite agood intake. This constellation of symptoms led to a chest x-ray showing multiple lung metastases. This was confirmed by CT scan. He comes today to discuss therapeutic options. The dyspnea is mild, notable only with exertion, but it decreasing amounts of exertion. He denies frequent cough, and denies hemoptysis or chest pain. He gets winded after mowing the grass or walking up 1 or 2 flights of stairs. He denies orthopnea or angina. He still has xerostomia but otherwise has no swallowing dysfunction. Taste sensation has returned tonormal. Diet is unrestricted except for dry foods. As before he has short-term memory trouble but can function through most of the day independently. He is under evaluation for elevated PSA with prostatic enlargement; urology evaluation found an enlarged but nonnodular prostate, and a PSA approximately 6. Further investigation with an ultrasound is being planned. Physical exam: He is in no acute distress, alert and conversant although his short-term memory is somewhat impaired. To me this seems unchanged from prior visits. Park provides some recent history and has to correct him several times. Oral exam shows mild xerosis, no visible lesions. No trismus Neck exam shows well-healed surgical grafts in the left neck. There is a roughly 1/2 cm area of whatappears to be exposed bone behind the left auricle remnant at the Sharp surgical edge of the mastoid. See photograph. I detect no adenopathy in the neck or elsewhere The lungs show diffusely diminished breath sounds but are otherwise clear, no signs of effusion Cardiac exam shows a regular rate and rhythm. No gallop. There is a 2/6 systolic flow murmur loudestat the right upper more than left upper sternal border. The abdomen is benign without hepatosplenomegaly or masses Extremities are normal, no clubbing cyanosis or edema Neurologic exam is grossly normal. Reflexes 1+. Cranial nerves normal except for slight left upper division facial nerve dysfunction. Labs: Recent TSH was within normal limits, creatinine 1.37. Imaging: Chest x-ray 10/08/2021: CT 10/12/2021: FINDINGS: Pulmonary parenchyma: New bilateral masses involve the right upper, middle, and lower lobe as well as the left lower lobe. These measure between 3 cm and 6.5 cm in maximal diameters. Central low densities are consistent with some degree of necrosis. Airways: Central airways are patent. Right basilar lower lobe bronchial occlusion due to mass effect. Pleura: No effusion. Lymph nodes: Right-sided masses extend to the right hilum. No axillary, left hilar, or mediastinal lymphadenopathy. Heart and vasculature: Severe coronary artery atherosclerotic calcification. Moderate calcifications at the aortic valve level. Limited upper abdomen: Stable small calcifications in the right and left liver lobe. Skeleton: No significant finding. Impression: History of high risk regionally advanced squamous cell carcinoma of the skin, status post curative intent surgery followed by adjuvant chemoradiation, now with multiple lung masses. While we do not have histologic confirmation of these, I think the overwhelming likelihood is that these lung masses are metastatic deposits from the squamous cell cancer. I do not believe the risk/benefit ratio of a biopsy is favorable, and would prefer to proceed with systemic treatment. The lung metastasesare becoming symptomatic, likely from obstruction of the right lower lobe bronchi, and with weight loss from the hypermetabolic steal of the cancer.. He does have a heart murmur suggesting aortic stenosis but it seems unlikely that this is a major contributor. Posttreatment bone exposure over the left mastoid, bothersome. Elevated PSA of uncertain significance. Plan: 1. We discussed the lung findings and the hypothesis that these were lung metastases from his skin cancer. 2. We talked about the fact that we cannot expect to cure metastatic cancer such as this, but would hope to slow down the progression in order to preserve quality of life, extend survival, and try to do so with minimal treatment side effects. 3. I proposed using cemiplimab immunotherapy. We talked about the mechanism of this, and the potential side effects. I gave the patient and his some written information to review. They wish to proceed. 4. We hope to get started later this week; he would like to get in his second cycle before a much-needed vacation to do some fishing starting on November 14. Treatments will be repeated at 3-week intervals; the duration of treatment is open-ended, as long as there is clinical benefit and tolerability. 5. Anticipate 4 treatment cycles, then restaging with chest CT. 6. I will ask Dr. Barnett to move ahead with surgical debridement of the exposed mastoid. 7. Monitor heart murmur; consider echocardiogram if signs of progressive aortic stenosis develop. 8. Prostate work-up per urology. Ashok Ritchie MD, FACP accounting professional Hematology/Oncology Section [facility] [address] Voice recognition software used for this note; please excuse journey lineman errors. I personally reviewed past medical, surgical, family medical histories, reviewed current medications, vital signs, labs, and performed full review of systems. These are documented below the narrative for clarity and succinctness. Outpatient Medications Marked as Taking for the 10/19/21 encounter (Office Visit) with Ashok Ritchie MD Medication Sig Dispense Refill ??? tamsulosin (Flomax) 0.4 mg Capsule Take 1 capsule by mouth daily. 90 tablet 3 ??? cyanocobalamin, vitamin B-12, 2,500 mcg Tablet B-12 2500 MCG TABS ??? pantothenic Ac-Min Oil-Pet,Hyd (AQUAPHOR) 41 % Ointment Apply topically. ??? acetaminophen (Tylenol) 500 mg Tablet Take 1,000 mg by mouth every 8 hours as needed for Pain. ??? Ibuprofen 200 mg Capsule Take by mouth as needed. ??? ABILIFY 15 mg Tablet Take 15 mg by mouth daily. ??? metoprolol succinate (TOPROL-XL) 50 mg 24 hr tablet Take 1 tablet by mouth daily. 30 tablet 12 ??? atorvastatin (LIPITOR) 20 mg tablet Take 40 mg by mouth daily. ??? fenofibrate (TRICOR) 145 mg tablet Take 145 mg by mouth daily. ??? lamoTRIgine (LaMICtal) 200 mg Tablet Take 200 mg by mouth 2 times daily. ??? amitriptyline (ELAVIL) 50 mg tablet Take 100 mg by mouth nightly. ??? aspirin 81 mg EC tablet Take 81 mg by mouth daily. Review of Systems: Review of systems is negative for other CLOTHING AND TEXTILES TEACHER, bone, pulmonary, cardiac, GI, , extremity, neurologic, endocrine, skin, constitutional, emotional, or functional problems. Vitals Flowsheet Row Office Visit from 10/19/2021 in Hematology/Oncology at [facility] Weight 65.9 kg (145 lb 3.2 oz) Height 175.3 cm (5' 9.02) BSA (Calculated - sq m) 1.79 sq meters BMI (Calculated) 21.43 Temp 36.3 ??C (97.3 ??F) Temp src Temporal Heart Rate 81 Heart Rate Source NIBP Resp 18 BP 117/59 BP Location Right arm Patient Position Sitting SpO2 99 % Body surface area is 1.79 meters squared. Wt Readings from Last 3 Encounters: 10/19/21 65.9 kg (145 lb 3.2 oz) 10/08/21 65.3 kg (144 lb) 10/07/21 65.7 kg (144 lb 12.8 oz) No results found for this or any previous visit (from the past 72 hour(s)). ++++++++++++++++++++++++++++++++++++++++++++++++++++ documented in this encounter Plan of Treatment Upcoming Encounters Date Type Specialty Care Team Description 10/21/2021 Infusion Hematology and Oncology 11/09/2021 Office Visit Hematology and Oncology Alhaji Ritchie MD [facility] ONCOLOGY DEPT. [place], [place] [address] (Wo yamileth) 11/09/2021 Infusion Hematology and Oncology 12/10/2021 Office Visit Dermatology Silas Walters MD [address] DERMATOLOGY [place], [place] [address] (Wo yamileth) 09/19/2039 Hospital Encounter Surgery Osman Barnett MD [facility] OTOLARYNGOLOGY D EPT. [place], [place] [address] (Wo rk) Scheduled Orders Name Type Priority Associated Diagnoses Order S chedule Comprehensive metabolic Lab Routine Squamous cell car cinoma Every 3 weeks for 52 panel (non-fasting) of ear, left Occurrences starting Abnormal weight loss 10/19/2021 until Fatigue, unspecified 023 type CBC (with Diff) Lab Routine Squamous cell carcinoma E very 3 weeks for 52 of ear, left Occurrences starting Abnormal weight loss 10/19/2021 until Fatigue, unspecified 023 type TSH Lab Routine Squamous cell carcinoma Ever y 3 weeks for 52 of ear, left Occurrences starting Abnormal weight loss 10/19/2021 until Fatigue, unspecified 023 type T4, free Lab Routine Squamous cell carcinoma Ever y 3 weeks for 52 of ear, left Occurrences starting Abnormal weight loss 10/19/2021 until Fatigue, unspecified 023 type Scheduled Procedures Name Priority Associated Diagnoses Date/Time [...] as of this encounter Visit Diagnoses Diagnosis Squamous cell carcinoma of ear, left Abnormal weight loss Loss of weight Fatigue, unspecified type documented in this encounter Care Teams Labor And Delivery Registered Nurse Relationship Specialty Start Date End Date Tara Joya MD PCP - General Family Medicine 05/16/[address] [place] [address] documented as of this encounter
--- OUTSIDE RECORDS SUMMARY | 2021-10-21 07:56 | XMS_ITS | Encounter Summary ---
:1950 Author Organization [facility] Address [facility] [place] [address] Care Team Providers Name Role Phone Tara Joya MD Primary Care Provider [phone] Encounter Details Date Type Department Care Team Description 10/08/2021 Hospital Encounter [facility] at [facility] Eleazar Galdamez Squamous cell [address] [place] [address] Dr Reji MD carcinoma of ear, [facility] [address] [place] [phone] [place] [address] Social History Tobacco Use Types Packs/Day Years Used Date Former Smoker Cigarettes 1 40 Quit: 01/09/20 03 Smokeless Tobacco: Never Used Alcohol Use Standard Drinks/Week Comments No 0 (1 standard drink = 0.6 oz pure alcoho l) Sex Assigned at Date Recorded Not on file documented as of this encounter Medications at Time of Discharge Medication Sig Dispensed Refills Start Date End Date tamsulosin (Flomax) 0.4 mg Take 1 capsule by 90 tablet 3 Capsule mouth daily. cyanocobalamin, vitamin B-12 2500 MCG TABS 0 B-12, 2,500 mcg Tablet pantothenic Ac-Min Apply topically. 0 Oil-Pet,Hyd (AQUAPHOR) 41 % Ointment acetaminophen (Tylenol) 500 Take 1,000 mg by 0 mg Tablet mouth every 8 hours as needed for Pain. Ibuprofen 200 mg Capsule Take by mouth as 0 needed. nitroGLYcerin (NITROSTAT) as needed. 0 09/19/2017 0.4 mg Tablet, Sublingual ABILIFY 15 mg Tablet Take 15 mg by mouth 0 2016 daily. metoprolol succinate Take 1 tablet by 30 tablet 12 3 (TOPROL-XL) 50 mg 24 hr mouth daily. tablet atorvastatin (LIPITOR) 20 Take 40 mg by mouth 0 mg tablet daily. fenofibrate (TRICOR) 145 mg Take 145 mg by mouth 0 tablet daily. lamoTRIgine (LaMICtal) 200 Take 200 mg by mouth 0 mg Tablet 2 times daily. amitriptyline (ELAVIL) 50 Take 100 mg by mouth 0 mg tablet nightly. aspirin 81 mg EC tablet Take 81 mg by mouth 0 daily. documented as of this encounter Plan of Treatment Upcoming Encounters Date Type Specialty Care Team Description 10/21/2021 Infusion Hematology and Oncology 11/09/2021 Office Visit Hematology and Oncology Alhaji Ritchie MD [facility] [address] ONCOLOGY DEPT. [place], [place] [address] (Wo rk) 11/09/2021 Infusion Hematology and Oncology 12/10/2021 Office Visit Dermatology Silas Walters MD [address] [facility] DERMATOLOGY [place], [place] [address] (Wo rk) 09/19/2039 Hospital Encounter Surgery Osman Barnett MD [facility] OTOLARYNGOLOGY D EPT. [place], [place] [address] (Wo rk) Scheduled Procedures Name [...] Name Priority Date/Time Associated Diagnosis Comme nts XR CHEST PA AND Routine 10/08/2021 2:02 PM Squamous cell Resul ts for this LATERAL EDT carcinoma of ear, procedure are in left the results section. documented in this encounter Results XR Chest PA & Lateral (Generic) (10/08/2021 [...] who have questions please contact the health childcare center director that requested your imaging first. ? Narrative 10/08/2021 2:15 PM EDT EXAMINATION: XR [...] ho have questions please contact the health childcare center director that requested your imaging first. 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
--- OUTSIDE RECORDS SUMMARY | 2021-10-21 07:56 | XMS_ITS | Encounter Summary ---
:1950 Author Organization [facility] [place] [address] Care Team Providers Name Role Phone Tara Joya MD Primary Care Provider [phone] Reason for Referral Diagnostic Test (Routine) - New Request Specialty Diagnoses / Procedures Referred By Contact Refer red To Contact Radiology Diagnoses Elevated PSA Kacie Rabago APRN [facility] Rad Mri Procedures MRI Pelvis wwo (Prostate) [facility] [address] [place] [address] [place] [address] Referral ID Status Reason Start Expiration Visits Visits Date Date Requested Authorized [id number] New Request Specialty 10/09/2021 04/11/2023 1 1 Service Requested Encounter Details Date Type Department Care Team Description 10/09/2021 Telephone Urology at [facility] Kacie Rabago APRN [facility] [place] [address] UROLOGY [phone] [place], [place] [address] (Wo rk) Social History Tobacco Use Types Packs/Day Years Used Date Former Smoker Cigarettes 1 40 Quit: 01/09/20 03 Smokeless Tobacco: Never Used Alcohol Use Standard Drinks/Week Comments No 0 (1 standard drink = 0.6 oz pure alcoho l) Sex Assigned at Date Recorded Not on file documented as of this encounter Miscellaneous Notes Telephone Encounter - Kacie Rabago APRN - 10/09/2021 8:05 AM EDT Called patient to discuss PSA results. Spoke with Nika () and Ward. PSA up to 8.45 with free percent of 13. NCI prostate cancer risk calculator: 16 % risk of high grade prostate cancer 30% risk of low grade prostate cancer 54% chance of having a negative prostate biopsy We discussed next steps of Prostate MRI. They agree with the plan. documented in this encounter Plan of Treatment Upcoming Encounters Date Type Specialty Care Team Description 10/21/2021 Infusion Hematology and Oncology 11/09/2021 Office Visit Hematology and Oncology Alhaji Ritchie MD [facility] DR ONCOLOGY DEPT. [place], [place] [address] (Wo rk) 11/09/2021 Infusion Hematology and Oncology 12/10/2021 Office Visit Dermatology Silas Walters MD [address] [facility] DERMATOLOGY [place], [place] [address] (Wo rk) 09/19/2039 Hospital Encounter Surgery Osman Barnett MD [facility] OTOLARYNGOLOGY D EPT. [place], [place] [address] (Wo rk) Scheduled Orders Name Type Priority Associated Diagnoses Order S chedule MRI Pelvis wwo Imaging Routine Elevated PSA Expected: 07/2021, (Prostate) Expires: 2021 Scheduled Procedures Name Priority Associated Diagnoses Date/Time [...] as of this encounter Visit Diagnoses Diagnosis Elevated PSA Elevated prostate specific antigen (PSA) documented in this encounter Care Teams Road Design Engineer Relationship Specialty Start Date End Date Tara Joya MD PCP - General Family Medicine 05/16/[address] [place] [address] documented as of this encounter
--- OUTSIDE RECORDS SUMMARY | 2021-10-21 07:56 | XMS_ITS | Encounter Summary ---
:1950 [place] [address] Care Team Providers Name Role Phone Tara Joya MD Primary Care Provider [phone] Encounter Details Date Type Department Care Team Description 10/09/2021 Telephone Urology at [facility] Kacie Rabago APRN [facility] Shalrene phillips [facility] [place] [address] UROLOGY [phone] [place], [place] [address] (Wo rk) Social History Tobacco [...] Visit Hematology and Oncology Alhaji Ritchie MD [facility] ONCOLOGY DEPT. [place], [place] [address] (Wo rk) 11/09/2021 Infusion Hematology and Oncology 12/10/2021 Office Visit Dermatology Silas Walters MD [address] [place] [address] DERMATOLOGY [place], [place] [address] (Wo rk) 09/19/2039 Hospital Encounter Surgery Osman Barnett MD [facility] OTOLARYNGOLOGY [place] EPT. [place], [place] [address] (Wo rk) Scheduled Procedures Name [...] documented as of this encounter Visit Diagnoses Not on filedocumented in this encounter Care Teams Lead Cargoman Relationship Specialty Start Date End Date Tara Joya MD PCP - General Family Medicine 05/16/[address] [place] [address] documented as of this encounter
--- OUTSIDE RECORDS SUMMARY | 2021-10-21 07:56 | XMS_ITS | Encounter Summary ---
:1950 Author Organization [facility] [place] [address] Care Team Providers Name Role Phone Tara Joya MD Primary Care Provider [phone] Encounter Details Date Type Department Care Team Description 10/21/2021 Infusion Hematology Oncology at [place] [phone] Social History Tobacco Use Types Packs/Day Years Used Date Former Smoker Cigarettes 1 40 Quit: 01/09/20 03 Smokeless Tobacco: Never Used Alcohol Use Standard Drinks/Week Comments No 0 (1 standard drink = 0.6 oz pure alcoho l) Sex Assigned at Date Recorded Not on file documented as of this encounter Plan of Treatment Upcoming Encounters Date Type Specialty Care Team Description 11/09/2021 Office Visit Hematology and Oncology Alhaji Ritchie MD [facility] DR ONCOLOGY DEPT. [place], [place] [address] (Wo rk) 11/09/2021 Infusion Hematology and Oncology 12/10/2021 Office Visit Dermatology Silas Walters MD [address] [place] [address] DERMATOLOGY [place], [place] [address] (Wo rk) 09/19/2039 Hospital Encounter Surgery Osman Barnett MD [facility] OTOLARYNGOLOGY D EPT. [place], [place] [address] (Jin carson) Scheduled Procedures Name [...] on filedocumented in this encounter Care Teams Learning Support Aide Relationship Specialty Start Date End Date Tara Joya MD PCP - General Family Medicine 05/16/[address] [place] [address] documented as of this encounter
--- OUTSIDE RECORDS SUMMARY | 2021-10-21 07:56 | XMS_ITS | Encounter Summary ---
:1950 Author Organization [facility] [place] [address] Care Team Providers Name Role Phone Tara Joya MD Primary Care Provider [phone] Encounter Details Date Type Department Care Team Description 10/14/2021 Telephone Otolaryngology at [facility] Osman Barnett, [facility] [place] [address] [facility] [phone] OTOLARYNGOLOGY D EPT. [place], [place] [address] (Wo rk) Social History Tobacco Use Types Packs/Day Years Used Date Former Smoker Cigarettes 1 40 Quit: 01/09/20 03 Smokeless Tobacco: Never Used Alcohol Use Standard Drinks/Week Comments No 0 (1 standard drink = 0.6 oz pure alcoho l) Sex Assigned at Date Recorded Not on file documented as of this encounter Miscellaneous Notes Telephone Encounter - Osman Barnett MD - 10/14/2021 4:05 PM EDT Called Nika regarding CT chest results. We will review at tumor board and come up with a plan. Patient will need follow up with Dr. Ritchie. documented in this encounter Plan of Treatment Upcoming Encounters Date Type Specialty Care Team Description 10/21/2021 Infusion Hematology and Oncology 11/09/2021 Office Visit Hematology and Oncology Alhaji Ritchie MD [facility] DR ONCOLOGY DEPT. [place], [place] [address] (Wo rk) 11/09/2021 Infusion Hematology and Oncology 12/10/2021 Office Visit Dermatology Silas Walters MD [address] DERMATOLOGY [place], [place] [address] (Wo rk) 09/19/2039 Hospital Encounter Surgery Osman Barnett MD [facility] OTOLARYNGOLOGY D EPT. [place], [place] [address] (Wo rk) Scheduled Procedures Name [...] on filedocumented in this encounter Care Teams Medical Dir Relationship Specialty Start Date End Date Tara Joya MD PCP - General Family Medicine 05/16/[address] [place] [address] documented as of this encounter
--- OUTSIDE RECORDS SUMMARY | 2021-10-21 07:56 | XMS_ITS | Encounter Summary ---
:1950 Author Organization [facility] [place] [address] Care Team Providers Name Role Phone Tara Joya MD Primary Care Provider [phone] Encounter Details Date Type Department Care Team Description 08/12/2021 Orders Only Otolaryngology at [facility] [place] [facility] [place] [phone] Otolaryngology [phone] [place], [place] [address] (Wo yamileth) Social History Tobacco Use Types Packs/Day Years [...] Visit Hematology and Oncology Alhaji Ritchie MD [facility] ONCOLOGY DEPT. [place], [place] [address] (Wo rk) 11/09/2021 Infusion Hematology and Oncology 12/10/2021 Office Visit Dermatology Silas Walters MD [address] [place] [address] DERMATOLOGY [place], [place] [address] (Wo rk) 09/19/2039 Hospital Encounter Surgery Osman Barnett MD [facility] OTOLARYNGOLOGY Sharlene EPT. [place], [place] [address] (Wo rk) Scheduled Procedures Name [...] on filedocumented in this encounter Care Teams Corrosion Control Engineer Relationship Specialty Start Date End Date Tara Joya MD PCP - General Family Medicine 05/16/[address] [place] [address] documented as of this encounter
--- OUTSIDE RECORDS SUMMARY | 2021-10-21 07:56 | XMS_ITS | Encounter Summary ---
:1950 Author Organization [facility] [place] [address] Care Team Providers Name Role Phone Tara Joya MD Primary Care Provider [phone] Reason for Referral Diagnostic Test (Routine) - Closed Specialty Diagnoses / Procedures Referred By Contact Refer red To Contact Radiology Diagnoses Squamous cell carcinoma of ear, left Eleazar Galdamez MD [facility] Rad Ct Scan Procedures CT Chest w Contrast [facility] [place] [address] [place] [address] Referral ID Status Reason Start Date Expiration Date Visits V isits Requested Authorized [id number] Closed Specialty 10/08/2021 04/10/2023 1 1 Service Requested Reason for Visit Diagnostic Test (Routine) - Closed Specialty Diagnoses / Procedures Referred By Contact Refer red To Contact Radiology Diagnoses Squamous cell carcinoma of ear, left Eleazar Galdamez MD [facility] Rad Ct Scan Procedures CT Chest w Contrast [facility] [place] [address] [place] [address] Referral ID Status Reason Start Date Expiration Date Visits V isits Requested Authorized [id number] Closed Specialty 10/08/2021 04/10/2023 1 1 Service Requested Encounter Details Date Type Department Care Team Description 10/12/[address] Scan at [facility] Eleazar Galdamez Squamous cell [facility] MD Reji carcinoma of ear, [address] [facility] [place], [place] CENTER [address] RADIATION [phone] [place] [address] Social History Tobacco Use Types Packs/Day Years [...] Oncology Alhaji Ritchie MD [facility] ONCOLOGY DEPT. [place], [place] [address] (Wo rk) 11/09/2021 Infusion Hematology and Oncology 12/10/2021 Office Visit Dermatology Silas Walters MD [address] DERMATOLOGY [place], [place] [address] (Wo rk) 09/19/2039 Hospital Encounter Surgery Osman Barnett MD [facility] OTOLARYNGOLOGY D EPT. [place], [place] [address] (Wo rk) Scheduled Procedures Name [...] CT CHEST W CONTRAST Routine 10/12/2021 6:18 PM Squamous cell R esults for this EDT carcinoma of ear, procedure are in left the results section. documented in this encounter Results CT Chest w Contrast (10/12/2021 6:18 [...] who have questions please contact the health managed care liaison that requested your imaging first. ? Narrative 10/13/2021 9:19 AM EDT EXAMINATION: CT [...] ho have questions please contact the health managed care liaison that requested your imaging first. 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, left documented in this encounter Administered Medications Inactive Administered Medications - up to 3 most recent administrations Medication Order MAR Action Action Date Dose Rate Site iohexoL (Omnipaque) (300 mg/mL) Given 10/12/2021 6:18 PM EDT 49 mLs solution 0-200 mL 0-200 mL, Intravenous, ONCE PRN, 1 dose, Starting on Tue10/12/21 at 1818, Until Tue10/12/21 at 1818, Per Protocol, Warning Vesicant/Irritant Medication , Radiology Contrast, Routine documented in this encounter Care Teams Division Sales Manager Relationship Specialty Start Date End Date Tara Joya MD PCP - General Family Medicine 05/16/[address] [place] [address] documented as of this encounter
--- OUTSIDE RECORDS SUMMARY | 2021-10-21 07:56 | XMS_ITS | Encounter Summary ---
:1950 Author Organization [facility] [place] [address] Care Team Providers Name Role Phone Tara Joya MD Primary Care Provider [phone] Reason for Referral Diagnostic Test (Routine) - Closed Specialty Diagnoses / Procedures Referred By Contact Refer red To Contact Radiology Diagnoses Squamous cell carcinoma of ear, left Eleazar Galdamez MD [facility] Rad Ct Scan Procedures CT Chest w Contrast [facility] [place] [address] [place] [address] Referral ID Status Reason Start Date Expiration Date Visits V isits Requested Authorized [id number] Closed Specialty 10/08/2021 04/10/2023 1 1 Service Requested Encounter Details Date Type Department Care Team Description 10/08/2021 Orders Only Radiation Oncology at Eleazar Galdamez, Squamous cell [facility] MD carcinoma of ear, [place] [address] RADIATION ONCOLOGY [phone] [place], [place] [address] Social History Tobacco Use Types [...] Visit Hematology and Oncology Alhaji Ritchie MD [facility] DR ONCOLOGY DEPT. [place], [place] [address] (Wo rk) 11/09/2021 Infusion Hematology and Oncology 12/10/2021 Office Visit Dermatology Silas Walters MD [address] DERMATOLOGY [place], [place] [address] (Wo rk) 09/19/2039 Hospital Encounter Surgery Osman Barnett MD [facility] OTOLARYNGOLOGY D EPT. [place], [place] [address] (Wo rk) Scheduled Orders Name Type Priority Associated Diagnoses Order S chedule Creatinine Lab Routine Squamous cell carcinoma of e ar, Expected: 10/09/2021 left (Approximate), Expires: 04/10/2022 Scheduled Procedures Name Priority Associated Diagnoses Date/Time [...] sequela documented as of this encounter Results CT Chest w Contrast [...] who have questions please contact the health healthcare manager that requested your imaging first. ? Narrative [...] ho have questions please contact the health healthcare manager that requested your imaging first. 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
--- OUTSIDE RECORDS SUMMARY | 2021-10-21 07:56 | XMS_ITS | Encounter Summary ---
:1950 Author Organization [facility] [place] [address] Care Team Providers Name Role Phone Tara Joya MD Primary Care Provider [phone] Encounter Details Date Type Department Care Team Description 10/07/2021 Office Visit Radiation Oncology Eleazar Galdamez us cell carcinoma of ear, left; at [facility] MD Reji Secondary hypothyroidism [address] [place] [address] RADIATION [phone] ONCOLOGY [place], [place] [address] Social History Tobacco Use Types [...] Sign Reading Time Taken Comments Blood Pressure 130/58 10/07/2021 2:42 PM EDT Pulse 76 10/07/2021 2:42 PM EDT Temperature 37 ??C (98.6 ??F) 10/07/2021 2:42 PM EDT Respiratory Rate 20 10/07/2021 2:42 PM EDT Oxygen Saturation 96% 10/07/2021 2:42 PM EDT Inhaled Oxygen Concentration - - Weight 65.7 kg (144 lb 12.8 oz) 10/07/2021 2:42 PM EDT Height - - Body Mass Index 21.38 09/10/2021 10:55 AM EDT documented in this encounter Progress Notes Eleazar Galdamez MD - 10/07/2021 2:30 PM EDT Images from the original note were not included. Radiation Oncology Follow Up Patient Visit PATIENT NAME: Ward Santamaria DATE OF : 1950 ONCOLOGIC HISTORY DIAGNOSIS / TREATMENT OVERVIEW?? Ward Santamaria is a 69 y.o. 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 Adjuvant chemoradiotherapy. ?? TREATMENT DETAILS Treatment Intent Curative Site Treated Post-operative bed, involved lymph nodes basins, elective delmer volumes Technique VMAT, SIB with sequential boost Adaptive Plan Required Yes - due to weight loss Concurrent Chemo Yes ONC BCA CHEMO (AMB) 04/14/2020 04/21/2020 04/28/2020 Day, Cycle Day 1, Cycle 1 Day 8, Cycle 1 Day 15, Cycle 1 CISplatin (Platinol) IV 40 mg/m2/dose 40 mg/m2/dose 40 mg/m2/dose ?? ONC BCA CHEMO (AMB) 05/05/2020 05/12/2020 05/19/2020 Day, Cycle Day 22, Cycle 1 Day 29, Cycle 1 Day 36, Cycle 1 CISplatin (Platinol) IV 35 mg/m2/dose 35 mg/m2/dose 35 mg/m2/dose ?? ONC BCA CHEMO (AMB) 05/26/2020 Day, Cycle Day 43, Cycle 1 CISplatin (Platinol) IV 35 mg/m2/dose ?? Clinical Trial No TECHNICAL DETAILS ? Total Dose: 60 Gy @ 2 Gy/fxn, 54 Gy @ 1.8 Gy/fxn, sequential boost to 66 Gy @ 2 Gy / fxn ?? PLAN IMAGES ? Post-therapy course: PET-CT 01/23/20: IMPRESSION 1. Highly FDG avid lobulated mass involving the left parotid gland and external auditory canal, consistent with known biopsy proven squamous cell malignancy. No FDG avid regional delmer or suspected distant metastasis identified. 2. Small cutaneous/subcutaneous FDG avid focus in the lateral left mid back, indeterminate for an inflammatory or neoplastic lesion. Please correlate clinically. 3. Likely posttraumatic healing left fifth and sixth rib fractures as above CT HN w/ contrast 05/28/21: No evidence of recurrent neoplasm Developed exposed bone post-auricular area, seen by Dr. Barnett 08/2021 with recommendation for flap revision and coverage of exposed area. Time from therapy completion: ~ 1 year 4 months INTERVAL HISTORY: he notes progressive weight loss over the past few months. Currently, he has the following symptoms: Symptom Description Intervention Pain Pain associated with exposed bone (only with pressure), but minimal. No OTC medications required Dysphagia Minimal coughing associated with dry foods Xerostomia / Dysgeusia Minimal dysgeusia; xerostomia, moderate, stable water Neck Fibrosis / Lymphedema / Pain Left neck no issues Dental / Trismus Trismus to 2 cm, stable. Using fluoride mouthwash Nutrition Issues / Weight Loss Weight decreased 13 lbs over 2 months. Eating well, no issues with eating. Feeding Tube Not present Skin Denies Otalgia / Hearing Changes No changes Smoking Status Not smoking Voice Changes Denies Other Noticing increased dyspnea with activity, progressive (now with walking up / down stairs). No thoracic pain. ECOG PS: 0 Grade ECOG PERFORMANCE STATUS 0 Fully active, able to carry on all pre-disease performance without restriction 1 Restricted in physically strenuous activity but ambulatory and able to carry out work of a light or sedentary nature 2 Ambulatory and capable of all selfcare but unable to carry out any work activities; up and about > 50% of waking hours 3 Capable of only limited selfcare; confined to bed or chair more than 50% of waking hours 4 Completely disabled; cannot carry on any selfcare; totally confined to bed or chair EXAM Vitals: 10/07/21 1442 BP: 130/58 Patient Position: Sitting Pulse: 76 Resp: 20 Temp: 37 ??C (98.6 ??F) TempSrc: Temporal SpO2: 96% Weight: 65.7 kg (144 lb 12.8 oz) Physical Exam Constitutional: Appearance: He is well-developed. HENT: Head: Comments: Well healed graft, soft to palpation. Small area of exposed bone along resected mastoid. No findings suspicious for recurrence. Mouth/Throat: Comments: Visual inspection of OC and OP revealed no evidence of suspicious masses or lesions. Moisture poor. Pt with teeth in good repair. Eyes: Pupils: Pupils are equal, round, and reactive to light. Neck: Comments: Palpation reveals no adenopathy in cervical, SCLV, ICLV delmer basins. Cardiovascular: Rate and Rhythm: Normal rate. Pulmonary: Effort: Pulmonary effort is normal. Breath sounds: Normal breath sounds. Skin: Findings: No erythema. Neurological: Mental Status: He is alert and oriented to person, place, and time. Cranial Nerves: No cranial nerve deficit. Psychiatric: Behavior: Behavior normal. Procedures: HISTORY Allergies as of 10/07/2021 - Review Complete 10/07/2021 Allergen Reaction Noted ??? Penicillins ??? Codeine phosphate No past medical history on file. Past Surgical History: Procedure Laterality Date ??? IR MEDIPORT PLACEMENT 04/08/2020 IR Mediport Placement 04/08/2020 Mann Escobar APRN [facility] ??? IR MEDIPORT REMOVAL 09/19/2020 IR Mediport Removal 09/19/2020 Trent Huff MD [facility] ??? KIDNEY STONE SURGERY ??? PRG SOMATOSENSORY TEST, ANY/ALL PER. NERVES, TRUNK OR HEAD N/A 02/20/2020 FACIAL NERVE MONITORING, SETUP PERIPHERAL (WRVU 0.54) performed by Osman Barnett MD at [facility] MAIN OR ??? PRO ADJ TISS TRANSFER/REARRANGEMENT ANY AREA 30.1-60 SQCM Left 02/20/2020 ADJACENT TISSUE TRANSFER OR REARRANGEMENT; 30.1 TO 60.0 SQ CM, THORAX (WRVU 12.65) performed by Osman Barnett MD at [facility] MAIN OR ??? PRO ADJ TISS TRANSFER/REARRANGEMENT ANY AREA EA ADDL 30SQCM Left 02/20/2020 ADJACENT TISSUE TRANSFER OR REARRANGEMENT; EA ADD'L 30.0 SQ CM, OR PART OF (WRVU 3.73) performed byOsman Barnett MD at [facility] MAIN OR ??? PRO COLONOSCOPY, REMV LESN, SNARE N/A 07/07/2015 COLONOSCOPY, POLYPECTOMY, REMOVAL LESION BY SNARE performed by Jose Manuel Heller MD at [facility] ENDOSCOPY ??? PRO EXC PAROTD, TOTAL, DISSECT 5TH NERV Left 02/20/2020 EXCISION OF PAROTID TUMOR OR PAROTID GLAND, TOTAL, WITH DISSECTION AND PRESERVATION OF FACIAL NERVE(WRVU 19.53) performed by Osman Barnett MD at [facility] MAIN OR ??? PRO EXC SKIN MALIG 3.1-4CM FACE, FACIAL Left 02/20/2020 EXC MALIGNANT LESION, 3.1 TO 4.0CM, FACE (WRVU 4.34) performed by Osman Barnett MD at [facility] MAIN OR ? ? PRO EXC SKIN MALIG >4CM FACE, FACIAL Left 02/20/2020 EXC MALIGNANT LESION, >4.0CM, EARS (WRVU 6.26) performed by Osman Barnett MD at [facility] ??? PRO LARYNGOSCOPY, DIRECT, DX, OP MICROSCOP N/A 05/13/2020 LARYNGOSCOPY, WITH MICROSCOPE (WRVU 2.57) performed by Osman Barnett MD at [facility] MAIN OR ??? PRO MICROSURG TECHNIQUES, REQ OPER MICROSCOPE N/A 02/20/2020 MICROSCOPE USE (WRVU 3.46) performed by Neo Gilman MD at [facility] MAIN OR ??? PRO MUSCLE-SKIN FLAP, TRUNK Left 02/20/2020 FLAP, MYOCUTANEOUS OR FASCIOCUTANEOUS, TRUNK (WRVU 19.86) performed by Osman Barnett MD at [facility] OR ??? PRO PLACE PERCUT GASTROSTOMY TUBE N/A 05/13/2020 ENDOSCOPY W DIRECTED PLACEMENT PERCUTANEOUS GASTROSTOMY TUBE-PEG (WRVU 3.66) performed by Trent Wood MD at [facility] MAIN OR ??? PRO REMOVAL NODES, NECK, CERV MOD RAD Left 02/20/2020 @CERVICAL LYMPHADENECTOMY (MODIFIED RADICAL NECK DISSECTION) (WRVU 23.95) performed by Osman Barnett MD at [facility] OR ??? PRO RESECT TEMPORAL BONE, RN OR LPN APPRCH Left 02/20/2020 @RESECTION TEMPORAL BONE, EXTERNAL APPROACH (WRVU 37.42) [facility] ??? PRO TEMP CLOSURE EYELID BY SUTURE Left 05/13/2020 TEMPORARY CLOSURE OF EYELID BY SUTURE, TARSORRHAPHY (WRVU 1.35) performed by Osman Barnett MD at [facility] MAIN OR Social History Socioeconomic History ??? Marital status: Spouse name: Not on file ??? Number of children: Not on file ??? Years of education: Not on file ??? Highest education level: Not on file Occupational History ??? Occupation: retired Tobacco Use ??? Smoking status: Former Smoker Packs/day: 1.00 Years: 40.00 Pack years: 40.00 Types: Cigarettes Quit date: 01/08/2003 Years since quittin.7 ??? Smokeless tobacco: Never Used Vaping Use [...] lives with his of 49 years in [facility]. 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 Two adult sons live in this building and are involved in pt's care. Social Determinants of Health Financial Resource Strain: Not on file Food Insecurity: Not on file Transportation Needs: Not on file Physical Activity: Not on file Housing Stability: Not on file Family History Problem Relation Age of Onset ??? Other Father enlarged heart ??? Skin Cancer Brother 35 rapid dissemination; of metastatic disease ROS: I reviewed and agree with the nursing review of systems accompanying this encounter. The remainder of the comprehensive review of systems was negative with the exception of the pertinent positivesand negatives noted above. MEDICATIONS Current Outpatient Medications on File Prior to Visit Medication Sig Dispense Refill ??? cyanocobalamin, vitamin B-12, 2,500 mcg Tablet B-12 2500 MCG TABS ??? pantothenic Ac-Min Oil-Pet,Hyd (AQUAPHOR) 41 % Ointment Apply topically. ??? Ibuprofen 200 mg Capsule Take by mouth as needed. ??? nitroGLYcerin (NITROSTAT) 0.4 mg Tablet, Sublingual as needed. ??? ABILIFY 15 mg Tablet [...] tablet Take 81 mg by mouth daily. ??? acetaminophen (Tylenol) 500 mg Tablet Take 1,000 mg by mouth every 8 hours as needed for Pain. No current facility-administered medications on file prior to visit. IMAGING/LAB I have personally reviewed the imaging reports and images referenced in the oncologic hx and agree with the assessment as stated. Further pertinent imaging data below ASSESSMENT / PLAN Disease Status: LIZZIE clinically. However, he is experiencing unexplained weight loss with increasing dyspnea. As such, we will get a CXR. ?? We discussed that he is still at risk of recurrence and requires continued surveillance Toxicity: ?? Expected mild toxicities ?? Dental: following with dentistry. ?? Thyroid Function: To check tomorrow FU: follow per HN grid documented in this encounter Plan of Treatment Upcoming Encounters Date Type Specialty Care Team Description 10/21/2021 Infusion Hematology and Oncology 11/09/2021 Office Visit Hematology and Oncology Alhaji Ritchie MD [facility] ONCOLOGY DEPT. [place], [place] [address] (Jin carson) 11/09/2021 Infusion Hematology and Oncology 12/10/2021 Office Visit Dermatology Silas Walters MD [address] [place] [address] DERMATOLOGY [place], [place] [address] (Wo rk) 09/19/2039 Hospital Encounter Surgery Osman Barnett MD [facility] OTOLARYNGOLOGY D EPT. [place], [place] [address] (Jin carson) Scheduled Procedures Name [...] sequela documented as of this encounter Results TSH (10/08/2021 2:26 PM EDT) athologist Signature TSH 2.74 0.27 - 4.20 [facility] mcIU/mL [facility] Comment: Reference Interval (mcIU/mL): Females: ??First Trimester: 0.23-3.88 ??Second Trimester: 0.22-3.90 ??Third Trimester: 0.44-4.66 Specimen Anatomical Collection Method Collection Time Receive d Time (Source) Location / / Volume Laterality Blood 10/08/2021 2:26 PM 2 2:40 EDT PM EDT Resulting Agency Comment Spec In Lab Eleazar Galdamez MD CHEMISTRY ORDERABLES Performing Organization Address City/State/[place] [address] XR Chest PA & [...] who have questions please contact the health direct support professional caregiver that requested your imaging first. ? Electronically signed by: Kenzie Branch, [facility] ([phone]), at 10/08/2021 2:15 PM Narrative 10/08/2021 2:15 [...] ho have questions please contact the health direct support professional caregiver that requested your imaging first. Electronically signed by: Kenzie Branch, [facility] ([phone]), at 10/08/2021 2:15 PM Eleazar Galdamez MD IMG DX ORDERABLES documented in this encounter Visit Diagnoses Diagnosis Squamous cell carcinoma of ear, left Secondary hypothyroidism Other specified acquired hypothyroidism Squamous cell carcinoma of ear, left documented in this encounter Care Teams Radio Equipment Repairer Relationship Specialty Start Date End Date Tara Joya MD PCP - General Family Medicine 05/16/[address] [place] [address] documented as of this encounter
--- OUTSIDE RECORDS SUMMARY | 2021-10-21 07:57 | XMS_ITS | Encounter Summary ---
:1950 [place] [address] Care Team Providers Name Role Phone Tara Joya MD Primary Care Provider Reason for Visit Reason Comments Skin Lesion Encounter Details Date Type Department Care Team Description 05/01/2021 Office Visit Dermatology at [facility], History of basal cell carcinoma; Nona ROMERO History of SCC (squamous cell carcinoma) of skin; [address] [place] (actinic keratosis) [facility] DERMATOLOGY [place], [place] [id number] [phone] Social History Tobacco Use Types Packs/Day Years Used Date Former Smoker Cigarettes 1 40 Quit: 01/09/20 03 Smokeless Tobacco: Never Used Alcohol Use Standard Drinks/Week Comments No 0 (1 standard drink = 0.6 oz pure alcoho l) Sex Assigned at Date Recorded Not on file documented as of this encounter Progress Notes [facility] MD - 05/01/2021 4:15 PM EST Problem: 1.?1 year skin checkup, history of SCCA left preauricular cheek February 2019 2.??History of SCCA left preauricular cheek and presternal chest October 2018 3.??History of BCCA left antecubital fossa January 2014 4.??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 Status post left ear tumor resection, neck dissection, and left pectoralis myocutaneous flap reconstruction February 20, 2020 Ward follows up today because of concern about a crusting scabbing lesion on his presternal chest. It strides the mucocutaneous flap repair scar on his chest. Also on his back he has an atypical pigmented 1 cm lesion. Patient states that ENT still has some revisions planned for reconstruction of his ear and defatting of the left lateral neck protuberant flap. Physical examination reveals a 2 cm round hyperkeratotic nodular lesion on his presternal chest which is partially bisected by the vertically aligned flap harvest scar. He has an atypically pigmented 1.5cm patch on his mid central back. Otherwise examination of the face the neck the chest the back hands arms forearms thighs and calves is benign. 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 Today site was anesthetized and removed with shave biopsy 2. C&D x3 performed following curettage site measured 2 cm in diameter 3. Wound care instructions and supplies given 4. Return to clinic here on another 6 weeks for repeat check on this site. Rule out malignant melanoma mid central back 1. Today after obtaining informed consent, site was anesthetized removed with shave biopsy 2. Triple antibiotic ointment bandage placed 3. Wound care instructions and supplies given 4. We will notify patient about results from both sites in 7 to 10 days CC: Tara Joya MD documented in this encounter Plan of Treatment Upcoming Encounters Date Type Specialty Care Team Description 10/21/2021 Infusion Hematology and Oncology 11/09/2021 Office Visit Hematology and Oncology Alhaji Ritchie MD [facility] ONCOLOGY DEPT. [place], [place] [address] (Wo yamileth) 11/09/2021 Infusion Hematology and Oncology 12/10/2021 Office Visit Dermatology [facility] MD [address] [place] [address] DERMATOLOGY [place], [place] [address] (Wo yamileth) 09/19/2039 Hospital Encounter Surgery Osman Barnett MD [facility] OTOLARYNGOLOGY D EPT. [place], [place] [address] (Wo rk) Scheduled Procedures Name [...] as of this encounter Visit Diagnoses Diagnosis History of basal cell carcinoma Personal history of other malignant neop lasm of skin History of SCC (squamous cell carcinoma) of skin Personal history of other malignant neop lasm of skin [place] (actinic keratosis) Actinic keratosis documented in this encounter Care Teams Software Implementation Specialist Relationship Specialty Start Date End Date Tara Joya MD PCP - General Family Medicine 05/16/[address] [place] [address] documented as of this encounter
--- OUTSIDE RECORDS SUMMARY | 2021-10-21 07:57 | XMS_ITS | Encounter Summary ---
:1950 [place] [address] Care Team Providers Name Role Phone Tara Joya MD Primary Care Provider [phone] Reason for Visit Reason Comments Follow-up Encounter Details Date Type Department Care Team Description 05/21/2021 Procedure visit Dermatology at [facility] [place] gnant melanoma Nona ROMERO of torso excluding [address] [facility] [address] [facility] [address] [place], [place] DERMATOLOGY [address] [place], [place] [phone] Social History Tobacco Use Types Packs/Day Years Used Date Former Smoker Cigarettes 1 40 Quit: 01/09/20 03 Smokeless Tobacco: Never Used Alcohol Use Standard Drinks/Week Comments No 0 (1 standard drink = 0.6 oz pure alcoho l) Sex Assigned at Date Recorded Not on file documented as of this encounter Progress Notes [facility] MD - 05/21/2021 2:15 PM EST Clinical impression: Shave biopsy proven malignant melanoma for excision Site: Lower mid central back Size: 3 cm Deep suture: 3-0 Vicryl Surface suture: 4-0 Ethilon Follow-up: In 10 to 14 days for suture removal and biopsy results Indications for surgery, possible adverse outcomes, and activity restrictions discussed. Informed verbal consent was obtained. Skin surface was prepared with 4% chlorhexidine and draped in the usual sterile manner. Local anesthesia with 1% lidocaine, 1 to 100,000 epinephrine and 0.1 mEq/mL bicarbonate. Using a #15 blade, and 1cm margins, an elliptical excision was carried out around the lesion. Undermining performed peripherally. Hemostasis with electrodesiccation. Layered closure performed, specimen to pathology. Wound dressed, wound care reviewed. End length of suture line was 6.5 centimeters Follow-up in 10 to 14 days for suture removal and biopsy results CC: Tara Joya MD documented in this encounter Plan of Treatment Upcoming Encounters Date Type Specialty Care Team Description 10/21/2021 Infusion Hematology and Oncology 11/09/2021 Office Visit Hematology and Oncology Alhaji Ritchie MD [facility] DR ONCOLOGY DEPT. [place], [place] [address] (Wo rk) 11/09/2021 Infusion Hematology and Oncology 12/10/2021 Office Visit Dermatology [facility] MD [address] [facility] DERMATOLOGY [place], [place] [address] (Wo rk) 09/19/2039 Hospital Encounter Surgery Osman Barnett MD [facility] OTOLARYNGOLOGY D EPT. [place], [place] [address] (Wo rk) Scheduled Procedures Name [...] as of this encounter Visit Diagnoses Diagnosis Malignant melanoma of torso excluding br east documented in this encounter Care Teams Associate Publisher Relationship Specialty Start Date End Date Tara Joya MD PCP - General Family Medicine 05/16/[address] [place] [address] documented as of this encounter
--- OUTSIDE RECORDS SUMMARY | 2021-10-21 07:57 | XMS_ITS | Encounter Summary ---
:1950 [place] [address] Care Team Providers Name Role Phone Tara Joya MD Primary Care Provider [phone] Reason for Visit Reason Comments Annual Exam Skin Check Encounter Details Date Type Department Care Team Description 11/13/2020 Office Visit Dermatology at [facility], History of basal cell carcinoma; Nona ROMERO History of SCC (squamous cell carcinoma) of skin; [address] [address] [place] (actinic keratosis) [facility] DERMATOLOGY [place], [place] [id number] [phone] Social History Tobacco Use Types Packs/Day Years Used Date Former Smoker Cigarettes 1 40 Quit: 01/09/20 03 Smokeless Tobacco: Never Used Alcohol Use Standard Drinks/Week Comments No 0 (1 standard drink = 0.6 oz pure alcoho l) Sex Assigned at Date Recorded Not on file documented as of this encounter Progress Notes [facility] MD - 11/13/2020 2:15 PM EDT Problem: 1. 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 Status post left ear tumor resection, neck dissection, and left pectoralis myocutaneous flap reconstruction February 20, 2020 Ward follows up for his annual skin checkup. 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 This required extensive surgical procedure with loss of the left ear and a musculocutaneous flap moved up from the chest wall to close the defect. He underwent 30 radiation treatment sessions. Physical examination is a pleasant 69-year-old gentleman status post extensive ENT surgery with lossof his left ear and extensive flap drawn up and well-healed at the surgical site. He has some actinic present dorsal hands and forearms. Otherwise careful examination of the scalp the face the neck thechest the back the hands the arms deforms the thighs and the calves and in the right external auditory canal is benign. He has type II Barahona pigmentation. Patient does have 5 actinic keratoses present on the dorsal hands and forearms bilaterally. Assessment and plan: Benign skin examination patient with a history of nonmelanoma skin cancer 1. Patient reassured about his benign skin examination today 2. Continue sun avoidance precautions which the patient is carefully following 3. Return to clinic in 1 year for repeat check Actinic keratoses 1. LN 2 x 2 applied each of 5 sites. CC: Tara Joya MD documented in this encounter Plan of Treatment Upcoming Encounters Date Type Specialty Care Team Description 10/21/2021 Infusion Hematology and Oncology 11/09/2021 Office Visit Hematology and Oncology Alhaji Ritchie MD [facility] DR ONCOLOGY DEPT. [place], [place] [address] (Jin carson) 11/09/2021 Infusion Hematology and Oncology 12/10/2021 Office Visit Dermatology [facility] MD [address] [place] [address] DERMATOLOGY [place], [place] [address] (Jin carson) 09/19/2039 Hospital Encounter Surgery Osman Barnett MD [facility] OTOLARYNGOLOGY D EPT. [place], [place] [address] (Jin carson) Scheduled Procedures Name [...] keratosis documented in this encounter Care Teams Electric Sealing Machine Operator Relationship Specialty Start Date End Date Tara Joya MD PCP - General Family Medicine 05/16/[address] [place] [address] documented as of this encounter
--- OUTSIDE RECORDS SUMMARY | 2021-10-21 07:57 | XMS_ITS | Encounter Summary ---
:1950 [place] [address] Care Team Providers Name Role Phone Tara Joya MD Primary Care Provider [phone] Encounter Details Date Type Department Care Team Description 10/15/2020 Orders Only Hematology and Oncol ogy at [facility] [place] [place] [phone] Social History Tobacco Use Types Packs/Day Years [...] and Oncology Alhaji Ritchie MD [facility] [address] ONCOLOGY DEPT. [place], [place] [address] (Jin carson) 11/09/2021 Infusion Hematology and Oncology 12/10/2021 Office Visit Dermatology [facility] MD [address] [place] [address] DERMATOLOGY [place], [place] [address] (Jin carson) 09/19/2039 Hospital Encounter Surgery Osman Barnett MD [facility] OTOLARYNGOLOGY D EPT. [place], [place] [address] (Jin carson) Scheduled Procedures Name [...] on filedocumented in this encounter Care Teams Clinic Manager Relationship Specialty Start Date End Date Tara Joya MD PCP - General Family Medicine 05/16/[address] [place] [address] documented as of this encounter
--- OUTSIDE RECORDS SUMMARY | 2021-10-21 07:57 | XMS_ITS | Encounter Summary ---
:1950 Author Organization [facility] Address [facility] [place] [address] Care Team Providers Name Role Phone Tara Joya MD Primary Care Provider [phone] Reason for Visit Reason Comments Follow-up Results of CT scan and labs from this morning Encounter Details Date Type Department Care Team Description 05/28/2021 Office Visit Otolaryngology at [facility] Urbano Beck Squamous cell carcinoma, ear , left; [facility] NANDA [place] [address] [facility] [phone] Center Otolaryngology [place], [place] [address] Social History Tobacco Use Types [...] - Inhaled Oxygen Concentration - - Weight 70.3 kg (155 lb) 05/28/2021 1:04 PM EST Height 175.3 cm (5' 9) 05/28/2021 1:04 PM EST Body Mass Index 22.89 05/28/2021 1:04 PM EST documented in this encounter Progress Notes Urbano Beck PA - 05/28/2021 1:00 PM EST [facility] OTOLARYNGOLOGY FOLLOW UP NOTE Ward Santamaria is a 70 y.o. 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 At his last ENT visit on 12/04/20 he was gaining weight with g-tube out, but was feeling that his eyeclosure was a bit worse. He was also interested in revising the auricle position, malpositioned due to partial dehiscence postoperatively, and having his flap debulked. His left facial nerve upper division was slightly weak, and he had weakness in the lower division. Revision of the aurible and flap debulking, along with a light gold weight implant, was discussed. New issues since last visit: No pain. No swelling. Swallowing is going well. No change taste. No new numbness. Feels eye is closing well. Doesn't feel it is necessary to have the eye gold weight procedure. Had a melanoma removed form his chest along the pec flap incision line. Also had one removed form his back. PROBLEM LIST Patient Active Problem List Diagnosis Code ??? [...] eyelid H02.204 ??? Dysphagia R13.10 PAST MEDICAL HISTORY No past medical history on file. SOCIAL HISTORY Social History Tobacco Use ??? Smoking status: Former Smoker Packs/day: 1.00 Years: 40.00 Pack years: 40.00 Types: Cigarettes Quit date: 01/08/2003 Years since quittin.3 ??? Smokeless tobacco: Never Used Substance Use Topics ??? Alcohol use: No MEDICATIONS Current Outpatient Medications on File Prior to Visit Medication Sig Dispense Refill ??? gabapentin (Neurontin) 300 mg Capsule Take 600 mg by mouth nightly. ??? glipiZIDE XL (Glucotrol XL) 5 mg Tablet Extended Rel 24 hr Take 5 mg by mouth daily. ??? pantothenic Ac-Min Oil-Pet,Hyd (AQUAPHOR) 41 % [...] tablet Take 81 mg by mouth daily. Current Facility-Administered Medications on File Prior to Visit Medication Dose Route Frequency Provider Last Rate Last Admin ??? [COMPLETED] iohexoL (Omnipaque) (350 mg/mL) solution 0-200 mL 0-200 mL Intravenous Once PRN Kylie Willingham MD 110 mL at 05/28/21 1141 ALLERGIES Allergies Allergen Reactions ??? Penicillins rash ??? Codeine Phosphate Rash ROS 8 point Review of Systems was normal except for pertinent positives and negatives included in the History of Present Illness. PHYSICAL EXAMINATION Physical Examination: VITALS - There were no vitals taken for this visit. GENERAL - Well dressed and well nourished. - Breathing comfortably without stridor. - No acute distress. FACE - Full and symmetric facial movement. - No dysmorphic facial features. EYES - Periocular structures and conjunctiva healthy without lesions. - Pupils are equal, round, and reactive to light. - Extraocular movement is full and intact. - No evidence of nystagmus. EARS Left: - Auricle remnant with malpositioning. - Flap reconstruction appears healthy: pink, soft. Right: - Auricle normal exam. - Post-auricle area with an ~6mm raised, pink-white, mobile, non-tender lesion consistent with a sebaceous cyst; no associated ulceration or erythema. MOUTH - Lips and gingiva pink, moist, without lesions. - Tongue and floor of mouth without lesions or masses. - Hard palate without lesions. PHARYNX - Soft palate without lesions. - Uvula is midline. - Oropharynx symmetric. NECK - Soft, supple, without significant lymphadenopathy. - Thyroid gland without masses or asymmetry. - Trachea midline without deviation. NEURO - Left lower lip weakness noted; good eye closure; otherwise cranial nerves II- XII intact and symmetric. - Responds appropriately to questions. PSYCHE - Normal mood and affect. PROCEDURES REVIEW OF IMAGES/STUDIES CT neck soft tissues w contrast 05/28/21 Official Radiology read not available yet. Per my review, there is no evidence of recurrence noted. ASSESSMENT/RECOMMENDATIONS Ward Santamaria is a 70 y.o. male with the above-noted history and clinical exam findings. - Dr Barnett also examined the patient and did not have any concerns for recurrence. Discussed revision of the auricle remnant was possible, but that he was at higher risk for poorer healing in that area due to his radiation treatment to that area. The patient felt that, as such, he did not want to have revision surgery at this time, and he did not feel that he needed help with eye closure. He was interested in having the ear/neck flap reconstruction flap debulked, and Dr. Barnett felt that thiswould be reasonable. Discussed that it was also reasonable to remove the small right-sided post-auricular lesion. Discussed that per his review, there was no evidence of recurrence. - I discussed his returning to clinic per routine, but that he should call to be seen for any concerning changes/new symptoms, in the interim. - The patient expressed understanding of these points and agreement with the plan, and all questionsthat were asked were answered to the patient's satisfaction. Plan: > Left ear/neck flap reconstruction debulking in the OR, with right post- auricular lesion removalas well, in the OR. Consent to be obtained the day of surgery. > Return to clinic per grid. > Patient should call if their symptoms worsen, if new concerning symptoms arise, or if they haveany questions or concerns regarding their treatment. I appreciate the opportunity to be involved in Mr. Santamaria's care. Urbano Beck PA-C [place], [place] [address] Office 05/28/2021 documented in this encounter Plan of Treatment Upcoming Encounters Date Type Specialty Care Team Description 10/21/2021 Infusion Hematology and Oncology 11/09/2021 Office Visit Hematology and Oncology Alhaji Ritchie MD [facility] DR ONCOLOGY DEPT. [place], [place] [address] (Wo yamileth) 11/09/2021 Infusion Hematology and Oncology 12/10/2021 Office Visit Dermatology [facility] MD [address] [place] [address] DERMATOLOGY [place], [place] [address] (Wo rk) 09/19/2039 Hospital Encounter Surgery Osman Barnett MD [facility] OTOLARYNGOLOGY Sharlene [address] [place], [place] [address] (Wo rk) Scheduled Procedures Name [...] this encounter Visit Diagnoses Diagnosis Squamous cell carcinoma, ear, left Sebaceous cyst documented in this encounter Care Teams Director Business Development Relationship Specialty Start Date End Date Tara Joya MD PCP - General Family Medicine 05/16/[address] [place] [address] documented as of this encounter
--- OUTSIDE RECORDS SUMMARY | 2021-10-21 07:57 | XMS_ITS | Encounter Summary ---
:1950 Author Organization [facility] [place] [address] Care Team Providers Name Role Phone Tara Joya MD Primary Care Provider [phone] Encounter Details Date Type Department Care Team Description 12/15/2020 Office Visit Hematology/Oncology Ashok Ritchie Squa mous cell at [facility] carcinoma of ear, left [address] [place] [address] ONCOLOGY DEPT. [phone] [place], [place] [address] Social History Tobacco Use Types [...] Sign Reading Time Taken Comments Blood Pressure 132/65 12/15/2020 1:12 PM EDT Pulse 60 12/15/2020 1:12 PM EDT Temperature 36.9 ??C (98.4 ??F) 12/15/2020 1:12 PM EDT Respiratory Rate 18 12/15/2020 1:12 PM EDT Oxygen Saturation 98% 12/15/2020 1:12 PM EDT Inhaled Oxygen Concentration - - Weight 72 kg (158 lb 12.8 oz) 12/15/2020 1:12 PM EDT Height 175.3 cm (5' 9.02) 12/15/2020 1:12 PM EDT Body Mass Index 23.44 12/15/2020 1:12 PM EDT documented in this encounter Progress Notes Ashok Ritchie MD - 12/15/2020 1:00 PM EDT Hematology/Oncology Clinic [facility] Patient Active Problem List Diagnosis ??? Squamous [...] with concurrent weekly cisplatin 04/14 - 05/28/2020 Adjuvant Chemoradiation Patient's Name: Ward Santamaria RT End Date: 05/28/2020 Year 1 Post Surg wk 1 wk 2 wk 3 wk 4 wk 5 wk 6 wk 7 3 mo 4 mo 5 mo 6 mo 9 mo 08/28/20 09/27/20 10/28/20 11/28/20 02/27/21 ON ACTIVE TREATMENT COMPLETED TREATMENT Julio Cesar - MD x x [place] - AP x x Med Onc x [...] 4.5 yrs 5 yrs 05/28/21 08/28/21 11/28/21 02/27/22 05/28/22 11/28/22 05/29/23 11/29/23 03/10/25 09/10/25 03/10/26 COMPLETED TREATMENT [place] - MD x x x [place] - AP x x Med Onc x [...] 5 YEARS: Alternate annual follow-up appointments between Julio Cesar AP and MD, beginning with AP at 6-year appt. ??? Dysphagia ??? Lagophthalmos of left upper eyelid Added automatically from request for surgery [id number] ??? Encounter for venous access device care ??? Chemotherapy-induced nausea ??? Hearing loss Bilateral hearing aids prior to surgical loss of L ear 02/2020 ??? Mass of left ear Added automatically from request for surgery [id number] ??? Parotid mass Added automatically from request for surgery [id number] ??? History of basal cell carcinoma ??? [...] negative ??? Basal cell cancer ??? Hypertriglyceridemia Scheduled medical oncology checkup. He is now 6 months from completing adjuvant chemoradiation. He feels well. Energy level is nearly back to normal. Taste sensation also nearly back to normal, diet unrestricted. He still has moderate xerostomia and has to drink water quite frequently. However he has had no obstructing or aspiration symptoms in the throat. He has not noted any new masses in the neck, after a scare last month about what felt like a mass which proved in fact to be the edge of the left mastoid bone following surgery. He has not noted any other changes. He did have a follow-up with Dr. Barnett, and revision of the left ear remnant, revision of the bulky left neck graft, and possible gold weight placement in the left eyelid to improve closure were discussed. He saw Dr. Walters recently for a skin checkup; liquid nitrogen was applied to a few actinic spots. Physical exam: He looks well, in good spirits Voice is clear and well phonated Oral exam shows mild xerosis, no visible lesions. Tongue mobile Neck exam shows bulky left neck flap, no adenopathy, surgical wounds well- healed. The surgical edge of the mastoid tip is prominent but unchanged. I see no worrisome skin lesions in the head neck The chest is clear Cardiac exam normal Scar from the Mediport removal site has healed well Abdomen is benign without hepatosplenomegaly. The former G-tube site has healed completely. Extremities are normal without clubbing cyanosis or edema Neurologic exam shows strong gait. Cranial nerves normal with the exception of moderate left seventhperipheral nerve weakness, more prominent inferiorly than in the upper divisions. Eye closure is actually complete, but a bit sluggish. 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 Plan: Continue surveillance. Unless he notes something of concern, standard head and neck cancer team plan would put him in for radiation oncology checkup in about 3 months. Ashok Ritchie MD, FACP special events fundraiser Hematology/Oncology Section [facility]/[address] [address] Voice recognition software used for this note; please excuse teacher education director errors. I personally reviewed past medical, surgical, family medical histories, reviewed current medications, vital signs, labs, and performed full review of systems. These are documented below the narrative for clarity and succinctness. Outpatient Medications Marked as Taking for the 12/15/20 encounter (Office Visit) with Ashok Ritchie MD Medication Sig Dispense Refill ??? gabapentin (Neurontin) 300 mg Capsule Take 600 mg by mouth nightly. ??? glipiZIDE XL (Glucotrol XL) 5 mg Tablet Extended Rel 24 hr Take 5 mg by mouth daily. ??? acetaminophen (Tylenol) [...] 145 mg by mouth daily. ??? lamoTRIgine (LAMICTAL) 200 mg tablet Take 200 mg by mouth 2 times daily. ??? amitriptyline (ELAVIL) 50 mg tablet Take 100 mg by mouth nightly. ??? aspirin 81 mg EC tablet Take 81 mg by mouth daily. Review of Systems: Review of systems is negative for other FIELD COLLECTOR, bone, pulmonary, cardiac, GI, , extremity, neurologic, endocrine, skin, constitutional, emotional, or functional problems. Vitals Office Visit from 12/15/2020 in Hematology/Oncology at [facility] Weight 72 kg (158 lb 12.8 oz) Height 175.3 cm (5' 9.02) BSA (Calculated - sq m) 1.87 sq meters BMI (Calculated) 23.44 Temp 36.9 ??C (98.4 ??F) Temp src Temporal Heart Rate 60 Heart Rate Source Right, NIBP Resp 18 BP 132/65 BP Location Right arm Patient Position Sitting SpO2 98 % Karnofsky Score 100 Motor Neuropathy N/A Sensory Neuropathy N/A Body surface area is 1.87 meters squared. Wt Readings from Last 3 Encounters: 12/15/20 72 kg (158 lb 12.8 oz) 12/04/20 72.9 kg (160 lb 12.8 oz) 12/03/20 72.9 kg (160 lb 12.8 oz) No results found for this or any previous visit (from the past 72 hour(s)). ++++++++++++++++++++++++++++++++++++++++++++++++++++ documented in this encounter Plan of Treatment Upcoming Encounters Date Type Specialty Care Team Description 10/21/2021 Infusion Hematology and Oncology 11/09/2021 Office Visit Hematology and Oncology Alhaji Ritchie MD [facility] DR ONCOLOGY DEPT. [place], [place] [address] (Wo rk) 11/09/2021 Infusion Hematology and Oncology 12/10/2021 Office Visit Dermatology Silas Walters MD [address] [facility] DERMATOLOGY [place], [place] [address] (Wo rk) 09/19/2039 Hospital Encounter Surgery Osman Barnett MD [facility] OTOLARYNGOLOGY D EPT. [place], [place] [address] (Wo rk) Scheduled Procedures Name [...] left documented in this encounter Care Teams Bus Washer Relationship Specialty Start Date End Date Tara Joya MD PCP - General Family Medicine 05/16/[address] [place] [address] documented as of this encounter
--- OUTSIDE RECORDS SUMMARY | 2021-10-21 07:57 | XMS_ITS | Encounter Summary ---
:1950 Author Organization [facility] [place] [address] Care Team Providers Name Role Phone Tara Joya MD Primary Care Provider [phone] Encounter Details Date Type Department Care Team Description 10/27/2020 Office Visit Hematology/Oncology Ashok Ritchie Squa mous cell at [facility] carcinoma of ear, left [address] [place] [address] ONCOLOGY DEPT. [phone] [place], [place] [address] Social History Tobacco Use Types [...] Sign Reading Time Taken Comments Blood Pressure 136/86 10/27/2020 10:50 AM EDT Pulse 88 10/27/2020 10:50 AM EDT Temperature 36.7 ??C (98.1 ??F) 10/27/2020 10:50 AM EDT Respiratory Rate 18 10/27/2020 10:50 AM EDT Oxygen Saturation 99% 10/27/2020 10:50 AM EDT Inhaled Oxygen Concentration - - Weight 72.8 kg (160 lb 6.4 oz) 10/27/2020 10:50 AM EDT Height - - Body Mass Index 23.68 09/15/2020 11:27 AM EDT documented in this encounter Progress Notes Ashok Ritchie MD - 10/27/2020 10:15 AM EDT Hematology/Oncology Clinic [facility] Patient Active Problem List Diagnosis [...] TREATMENT Julio Cesar - MD x x [place] - [...] 08/28/21 11/28/21 02/27/22 05/28/22 11/28/22 05/29/23 11/29/23 05/28/24 [...] eyelid Added automatically from request for surgery [id number] ??? Encounter for venous access device care ??? Chemotherapy-induced nausea ??? Hearing loss Bilateral hearing aids prior to surgical loss of L ear 02/2020 ??? Mass of left ear Added automatically from request for surgery [id number] ??? Parotid mass Added automatically from request for surgery [id number] ??? History of basal cell carcinoma ??? [...] negative ??? Basal cell cancer ??? Hypertriglyceridemia Urgently-scheduled visit at patient's request to evaluate 'lump' at surgical site. A few days ago he noticed a bump at the superior edge of the neck resection/reconstruction site. It is nontender, does not seem to be changing since first noted, there is no skin drainage, but its presence worried him for possible recurrence. His skin has otherwise healed quite nicely after the surge ry and chemoradiation. He feels generally well. Energy is improving. 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 He does have modest dry mouth. Appetite is good. No symptoms to suggest metastatic disease. Physical exam: He looks well. Oral exam shows mild xerosis but is otherwise normal. Cranial nerves show stable left peripheral seventh weakness The surgical wounds are completely healed in the neck and left temporal bone resection site. Just below the remnant of the cartilaginous ear I can feel a sharper corner of bone that is consistent with the lower edge of the mastoid resection. Deep to this is tissue reconstruction which feels benign, with no fluctuance. There is no drainage. The area is nontender and nonerythematous. I rereviewed the CT scan from 09/11/2020. I went over this with the patient. No pathology seen in thearea of concern at the edge of the mastoidectomy. Impression: The exam is entirely consistent with this bump being simply the bony edge of the remnant mastoid bone which was made more prominent by the mastoidectomy. I believe this has become more apparent as the skin and soft tissue swelling from surgery and then radiation has receded. Plan: Reassurance. I spoke to the patient's by phone during the visit. I do not believe there is any need for additional workup. We will continue with our usual followup schedule. Ashok Ritchie MD, FACP res habilitation assistant Hematology/Oncology Section [facility]/[address] [address] Voice recognition software used for this note; please excuse wine fermenter errors. I personally reviewed past medical, surgical, family medical histories, reviewed current medications, vital signs, labs, and performed full review of systems. These are documented below the narrative for clarity and succinctness. Outpatient Medications Marked as Taking for the 10/27/20 encounter (Office Visit) with Ashok Ritchie MD [...] Review of systems is negative for other GENERAL PEDIATRICIAN, bone, pulmonary, cardiac, GI, , extremity, neurologic, endocrine, skin, constitutional, emotional, or functional problems. Vitals Office Visit from 10/27/2020 in Hematology/Oncology at [facility] Weight 72.8 kg (160 lb 6.4 oz) Temp 36.7 ??C (98.1 ??F) Temp src Temporal Heart Rate 88 Resp 18 BP 136/86 BP Location Right arm Patient Position Sitting SpO2 99 % Karnofsky Score 90 Body surface area is 1.88 meters squared. Wt Readings from Last 3 Encounters: 10/27/20 72.8 kg (160 lb 6.4 oz) 09/15/20 72.4 kg (159 lb 9.6 oz) 09/11/20 74.8 kg (165 lb) No results found for this or any previous visit (from the past 72 hour(s)). ++++++++++++++++++++++++++++++++++++++++++++++++++++ documented in this encounter Plan of Treatment Upcoming Encounters Date Type Specialty Care Team Description 10/21/2021 Infusion Hematology and Oncology 11/09/2021 Office Visit Hematology and Oncology Alhaji Ritchie MD [facility] DR ONCOLOGY DEPT. [place], [place] [address] (Wo rk) 11/09/2021 Infusion Hematology and Oncology 12/10/2021 Office Visit Dermatology Silas Walters MD [address] [facility] [address] [address] DERMATOLOGY [place], [place] [address] (Wo rk) 09/19/2039 Hospital Encounter Surgery Osman Barnett MD [facility] OTOLARYNGOLOGY D EPT. [place], [place] [address] (Wo rk) Scheduled Procedures Name [...] left documented in this encounter Care Teams Linen Aide Relationship Specialty Start Date End Date Tara Joya MD PCP - General Family Medicine 05/16/[address] [place] [address] documented as of this encounter
--- OUTSIDE RECORDS SUMMARY | 2021-10-21 07:57 | XMS_ITS | Encounter Summary ---
:1950 Author Organization [facility] [place] [address] Care Team Providers Name Role Phone Tara Joya MD Primary Care Provider [phone] Encounter Details Date Type Department Care Team Description 07/27/2021 Telephone Otolaryngology at [facility] Radha Baca, [place] [address] Social History Tobacco Use Types Packs/Day Years Used Date Former Smoker Cigarettes 1 40 Quit: 01/09/20 03 Smokeless Tobacco: Never Used Alcohol Use Standard Drinks/Week Comments No 0 (1 standard drink = 0.6 oz pure alcoho l) Sex Assigned at Date Recorded Not on file documented as of this encounter Miscellaneous Notes Telephone Encounter - Radha Baca RN - 07/27/2021 1:04 PM EDT Patient's call returned. Patient states they know the bone's there, but the bone is starting to stick right out of the ear patient says he got a new pair of glasses and doesn't know if that caused the problem? He says the site is gooey with a crust on top. patient denies bleeding, pain, changes in his normal (lack) of heairng, redness, hot to touch or fevers. When his gets home from work, he'll ask her to send a photo of the site. He's also asked this RN to email his so she can attach the photo to the email (completed). Will discuss with provider re: follow up. documented in this encounter Plan of Treatment Upcoming Encounters Date Type Specialty Care Team Description 10/21/2021 Infusion Hematology and Oncology 11/09/2021 Office Visit Hematology and Oncology Alhaji Ritchie MD [facility] DR ONCOLOGY DEPT. [place], [place] [address] (Wo rk) 11/09/2021 Infusion Hematology and Oncology 12/10/2021 Office Visit Dermatology Silas Walters MD [address] [facility] [address] DERMATOLOGY [place], [place] [address] (Wo rk) 09/19/2039 Hospital Encounter Surgery Osman Barnett MD [facility] OTOLARYNGOLOGY D EPT. [place], [place] [address] (Wo rk) Scheduled Procedures Name [...] on filedocumented in this encounter Care Teams Welt Cutter Relationship Specialty Start Date End Date Tara Joya MD PCP - General Family Medicine 05/16/[address] [place] [address] documented as of this encounter
--- OUTSIDE RECORDS SUMMARY | 2021-10-21 07:57 | XMS_ITS | Encounter Summary ---
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, left [address] [place] [address] RADIATION ONCOLOGY [phone] [place] [id number] Social History Tobacco Use Types Packs/Day Years Used Date Former Smoker Cigarettes 1 40 Quit: 01/09/20 03 Smokeless Tobacco: Never Used Alcohol Use Standard Drinks/Week Comments No 0 (1 standard drink = 0.6 oz pure alcoho l) Sex Assigned at Date Recorded Not on file documented as of this encounter Last Filed Vital Signs Vital Sign Reading Time Taken Comments Blood Pressure 144/84 12/03/2020 1:43 PM EDT Pulse 71 12/03/2020 1:43 PM EDT Temperature 37.1 ??C (98.8 ??F) 12/03/2020 1:43 PM EDT Respiratory Rate 18 12/03/2020 1:43 PM EDT Oxygen Saturation 99% 12/03/2020 1:43 PM EDT Inhaled Oxygen Concentration - - Weight 72.9 kg (160 lb 12.8 oz) 12/03/2020 1:43 PM EDT Height - - Body Mass Index 23.74 09/15/2020 11:27 AM EDT documented in this encounter Progress Notes Eleazar Galdamez MD - 12/03/2020 1:30 PM EDT Images from the original note [...] fxn ?? PLAN IMAGES ? Post-therapy course: Time from therapy completion: ~ 6 months INTERVAL HISTORY: no significant issues since his last visit Currently, he has the following symptoms: Symptom Description Intervention Pain Denies Dysphagia Minimal coughing associated with dry foods Xerostomia / Dysgeusia Mild dysgeusia; xerostomia, moderate water Neck Fibrosis / Lymphedema / Pain Left neck no issues Dental / Trismus Seeing dentist, doing fluoride. Trismus to 2 cm. He cracked a tooth using a Therabyte Device. Nutrition Issues / Weight Loss No issues Feeding Tube Not present Skin Denies Otalgia / Hearing Changes No issues Smoking Status Not smoking Voice Changes Denies Other No Issues ECOG PS: 0 Grade ECOG PERFORMANCE STATUS [...] confined to bed or chair EXAM Vitals: 12/03/20 1343 BP: 144/84 Patient Position: Sitting Pulse: 71 Resp: 18 Temp: 37.1 ??C (98.8 ??F) TempSrc: Temporal SpO2: 99% Weight: 72.9 kg (160 lb 12.8 oz) Physical Exam Constitutional: Appearance: He is well-developed. HENT: Head: Comments: Well healed graft, soft to palpation. No findings suspicious for recurrence. Patchy dry skin. Mouth/Throat: Comments: Visual inspection of OC and OP revealed no evidence of suspicious masses or lesions. Moisture poor. Pt with teeth in good repair excepting cracked tooth (#20) Eyes: Pupils: Pupils are equal, round, and [...] Behavior normal. Procedures: HISTORY Allergies as of 12/03/2020 - Review Complete 12/03/2020 Allergen Reaction Noted ??? Penicillins ??? Codeine phosphate No past medical history on file. Past Surgical History: Procedure Laterality Date ??? IR MEDIPORT PLACEMENT 04/08/2020 IR Mediport Placement 04/08/2020 Mann Escobar APRN [facility] INTERVENTIONL RAD ??? IR MEDIPORT REMOVAL 09/19/2020 IR Mediport Removal 09/19/2020 Trent Huff MD [facility] INTERVENTIONL RAD ??? KIDNEY STONE SURGERY ??? PRG SOMATOSENSORY TEST, ANY/ALL PER. NERVES, TRUNK OR HEAD N/A 02/20/2020 FACIAL NERVE MONITORING, SETUP PERIPHERAL (WRVU 0.54) performed by Osman Barnett MD at [facility] MAIN OR ??? PRO ADJ TISS TRANSFER/REARRANGEMENT ANY AREA 30.1-60 SQCM Left 02/20/2020 ADJACENT TISSUE TRANSFER OR REARRANGEMENT; 30.1 TO 60.0 SQ CM, THORAX (WRVU 12.65) performed by Osman Barnett MD at [facility] MAIN OR ??? PRO ADJ TISS TRANSFER/REARRANGEMENT ANY AREA EA ADDL 30SQCM Left 02/20/2020 ADJACENT TISSUE TRANSFER OR REARRANGEMENT; EA ADD'L 30.0 SQ CM, OR PART OF (WRVU 3.73) performed byOsman Barnett MD at [facility] MAIN OR ??? PRO COLONOSCOPY, REMV LESN, SNARE N/A 07/07/2015 COLONOSCOPY, POLYPECTOMY, REMOVAL LESION BY SNARE performed by Jose Manuel Heller MD at [facility] ENDOSCOPY ??? PRO EXC PAROTD, TOTAL, DISSECT 5TH NERV Left 02/20/2020 EXCISION OF PAROTID TUMOR OR PAROTID GLAND, TOTAL, WITH DISSECTION AND PRESERVATION OF FACIAL NERVE(WRVU 19.53) performed by Osman Barnett MD at [facility] MAIN OR ??? PRO EXC SKIN MALIG 3.1-4CM FACE, FACIAL Left 02/20/2020 EXC MALIGNANT LESION, 3.1 TO 4.0CM, FACE (WRVU 4.34) performed by Osman Barnett MD at [facility] MAIN OR ? ? PRO EXC SKIN MALIG >4CM FACE, FACIAL Left 02/20/2020 EXC MALIGNANT LESION, >4.0CM, EARS (WRVU 6.26) performed by Osman Barnett MD at [facility] [place]A ??? PRO LARYNGOSCOPY, DIRECT, DX, OP MICROSCOP N/A 05/13/2020 LARYNGOSCOPY, WITH MICROSCOPE (WRVU 2.57) performed by Osman Barnett MD at [facility] MAIN OR ??? PRO MICROSURG TECHNIQUES, REQ OPER MICROSCOPE N/A 02/20/2020 MICROSCOPE USE (WRVU 3.46) performed by Neo Gilman MD at [facility] OR ??? PRO MUSCLE-SKIN FLAP, TRUNK Left 02/20/2020 FLAP, MYOCUTANEOUS OR FASCIOCUTANEOUS, TRUNK (WRVU 19.86) performed by Osman Barnett MD at [facility] OR ??? PRO PLACE PERCUT GASTROSTOMY TUBE N/A 05/13/2020 ENDOSCOPY W DIRECTED PLACEMENT PERCUTANEOUS GASTROSTOMY TUBE-PEG (WRVU 3.66) performed by Trent Wood MD at [facility] OR ??? PRO REMOVAL NODES, NECK, CERV MOD RAD Left 02/20/2020 @CERVICAL LYMPHADENECTOMY (MODIFIED RADICAL NECK DISSECTION) (WRVU 23.95) performed by Osman Barnett MD at [facility] OR ??? PRO RESECT TEMPORAL BONE, PLANNING SPECIALIST APPRCH Left 02/20/2020 @RESECTION TEMPORAL BONE, EXTERNAL APPROACH (WRVU 37.42) [facility] ??? PRO TEMP CLOSURE EYELID BY SUTURE Left 05/13/2020 TEMPORARY CLOSURE OF EYELID BY SUTURE, TARSORRHAPHY (WRVU 1.35) performed by Osman Barnett MD at [facility] OR Social History Socioeconomic History ??? Marital status: Spouse name: None ??? Number of children: None ??? Years of education: None ??? Highest education level: None Occupational History ??? Occupation: retired Tobacco Use ??? Smoking status: Former Smoker Packs/day: 1.00 Years: 40.00 Pack years: 40.00 Types: Cigarettes Quit date: 01/08/2003 Years since quittin.9 ??? Smokeless tobacco: Never Used Vaping Use ??? Vaping Use: Never used Substance and Sexual Activity ??? Alcohol use: No ??? Drug use: Yes Frequency: 1.0 times per week Types: Marijuana Comment: rare ??? Sexual activity: None Other Topics Concern ??? Do You live alone? Not Asked ??? Tobacco in Home Not Asked Social History Narrative (02/2020) lives with his of 49 years in [facility]. 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 Two adult sons live in this building and are involved in pt's care. Social Determinants of Health Financial Resource Strain: ??? Difficulty of Paying Living Expenses: Not on file Food Insecurity: ??? Worried About Running Out of Food in the Last Year: Not on file ??? Ran Out of Food in the Last Year: Not on file Transportation Needs: ??? Lack of Transportation (Medical): Not on file ??? Lack of Transportation (Non-Medical): Not on file Physical Activity: ??? Days of Exercise per Week: Not on file ??? Minutes of Exercise per Session: Not on file Family History Problem Relation [...] Take 5 mg by mouth daily. ??? ABILIFY 15 mg Tablet Take 15 [...] Take 81 mg by mouth daily. ??? pantothenic Ac-Min Oil-Pet,Hyd (AQUAPHOR) 41 % Ointment Apply topically. ??? acetaminophen (Tylenol) 500 mg Tablet Take 1,000 mg by mouth every 8 hours as needed for Pain. ??? Ibuprofen 200 mg Capsule Take by mouth as needed. ??? nitroGLYcerin (NITROSTAT) 0.4 mg Tablet, Sublingual as needed. No current facility-administered medications on file prior to visit. IMAGING/LAB I have personally reviewed the imaging reports and images referenced in the oncologic hx and agree with the assessment as stated. Further pertinent imaging data below ASSESSMENT / PLAN Disease Status: LIZZIE ?? We discussed that he is still at risk of recurrence and requires continued surveillance Toxicity: ?? Expected mild toxicities ?? Dental: following with dentistry. ?? Thyroid Function: WNL at last visit, check at next visit FU: follow per HN grid documented in this encounter Plan of Treatment Upcoming Encounters Date Type Specialty Care Team Description 10/21/2021 Infusion Hematology and Oncology 11/09/2021 Office Visit Hematology and Oncology Alhaji Ritchie MD [facility] DR ONCOLOGY DEPT. [place], [place] [address] (Jin carson) 11/09/2021 Infusion Hematology and Oncology 12/10/2021 Office Visit Dermatology Silas Walters MD [address] DERMATOLOGY [place], [place] [address] (Jin rk) 09/19/2039 Hospital Encounter Surgery Osman Barnett MD [facility] OTOLARYNGOLOGY D EPT. [place], [place] [address] (Jin carson) Scheduled Procedures Name [...] left documented in this encounter Care Teams Addictions Counselor Assistant Relationship Specialty Start Date End Date Tara Joya MD PCP - General Family Medicine 05/16/[address] [place] [address] documented as of this encounter
--- OUTSIDE RECORDS SUMMARY | 2021-10-21 07:57 | XMS_ITS | Encounter Summary ---
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, left [address] [place] [address] RADIATION ONCOLOGY [phone] [place] [id number] Social History Tobacco Use Types Packs/Day Years Used Date Former Smoker Cigarettes 1 40 Quit: 01/09/20 03 Smokeless Tobacco: Never Used Alcohol Use Standard Drinks/Week Comments No 0 (1 standard drink = 0.6 oz pure alcoho l) Sex Assigned at Date Recorded Not on file documented as of this encounter Last Filed Vital Signs Vital Sign Reading Time Taken Comments Blood Pressure 135/74 06/03/2021 2:45 PM EDT Pulse 65 06/03/2021 2:45 PM EDT Temperature 36.8 ??C (98.3 ??F) 06/03/2021 2:45 PM EDT Respiratory Rate 20 06/03/2021 2:45 PM EDT Oxygen Saturation 100% 06/03/2021 2:45 PM EDT Inhaled Oxygen Concentration - - Weight 71.5 kg (157 lb 9.6 oz) 06/03/2021 2:45 PM EDT Height - - Body Mass Index 23.27 05/28/2021 1:04 PM EST documented in this encounter Progress Notes Eleazar Galdamez MD - 06/03/2021 2:30 PM EDT Images from the original [...] Post-therapy course: Time from therapy completion: ~ 1 year INTERVAL HISTORY: no significant issues since his last visit Currently, he has the following symptoms: Symptom Description Intervention Pain Denies Dysphagia Minimal coughing associated with dry foods Xerostomia / Dysgeusia Minimal dysgeusia; xerostomia, moderate, stable water Neck Fibrosis / Lymphedema / Pain Left neck no issues Dental / Trismus Trismus to 2 cm, stable. Using fluoride moutwash Nutrition Issues / Weight Loss Weight stable Feeding Tube Not present Skin Denies Otalgia [...] confined to bed or chair EXAM Vitals: 06/03/21 1445 BP: 135/74 Patient Position: Sitting Pulse: 65 Temp: 36.8 ??C (98.3 ??F) TempSrc: Temporal SpO2: 100% Weight: 71.5 kg (157 lb 9.6 oz) Physical Exam Constitutional: Appearance: He is well-developed. HENT: Head: Comments: Well healed graft, soft to palpation. No findings suspicious for recurrence. Mouth/Throat: Comments: Visual inspection of OC and OP revealed no evidence of suspicious masses or lesions. Moisture poor. Pt with teeth in good repair. Eyes: Pupils: Pupils are equal, round, and reactive to light. Neck: Comments: Palpation reveals no adenopathy in cervical, SCLV, ICLV delmer basins. Promontory of bone posterior to ear prominent with overlying dry skin and erythema, not concerning for malignancy. Cardiovascular: Rate and Rhythm: Normal rate. Pulmonary: Effort: Pulmonary effort is normal. Breath sounds: Normal breath sounds. Skin: Findings: No erythema. Neurological: Mental Status: He is alert and oriented to person, place, and time. Cranial Nerves: No cranial nerve deficit. Psychiatric: Behavior: Behavior normal. Procedures: HISTORY Allergies as of 06/03/2021 - Review Complete 06/03/2021 Allergen Reaction Noted ??? Penicillins ??? Codeine phosphate No past medical history on file. Past Surgical History: Procedure Laterality Date ??? IR MEDIPORT PLACEMENT 04/08/2020 IR Mediport Placement 04/08/[address] [facility] INTERVENTIONL RAD ??? IR MEDIPORT REMOVAL 09/19/2020 IR Mediport Removal 09/19/[address] [facility] INTERVENTIONL RAD ??? KIDNEY STONE SURGERY ??? PRG SOMATOSENSORY TEST, ANY/ALL PER. NERVES, TRUNK OR HEAD N/A 02/20/2020 FACIAL NERVE MONITORING, SETUP PERIPHERAL (WRVU 0.54) performed by Osman Barnett MD at [facility] MAIN OR ??? PRO ADJ TISS TRANSFER/REARRANGEMENT ANY AREA 30.1-60 SQCM Left 02/20/2020 ADJACENT TISSUE TRANSFER OR REARRANGEMENT; 30.1 TO 60.0 SQ CM, THORAX (WRVU 12.65) performed by Osman Barnett MD at [facility] MAIN OR ??? PRO ADJ TISS TRANSFER/REARRANGEMENT ANY AREA EA ADDL 30SQCM Left 02/20/2020 ADJACENT TISSUE TRANSFER OR REARRANGEMENT; EA ADD'L 30.0 SQ CM, OR PART OF (WRVU 3.73) performed byOsman Barnett MD at [facility] MAIN OR ??? PRO COLONOSCOPY, REMV LESN, SNARE N/A 07/07/2015 COLONOSCOPY, POLYPECTOMY, REMOVAL LESION BY SNARE performed by Jose Manuel Heller MD at [facility] ENDOSCOPY ??? PRO EXC PAROTD, TOTAL, DISSECT 5TH NERV Left 02/20/2020 EXCISION OF PAROTID TUMOR OR PAROTID GLAND, TOTAL, WITH DISSECTION AND PRESERVATION OF FACIAL NERVE(WRVU 19.53) performed by Osman Barnett MD at [facility] MAIN OR ??? PRO EXC SKIN MALIG 3.1-4CM FACE, FACIAL Left 02/20/2020 EXC MALIGNANT LESION, 3.1 TO 4.0CM, FACE (WRVU 4.34) performed by Osman Barnett MD at [facility] MAIN OR ? ? PRO EXC SKIN MALIG >4CM FACE, FACIAL Left 02/20/2020 EXC MALIGNANT LESION, >4.0CM, EARS (WRVU 6.26) performed by Osman Barnett MD at [facility] [place] ??? PRO LARYNGOSCOPY, DIRECT, DX, OP MICROSCOP N/A 05/13/2020 LARYNGOSCOPY, WITH MICROSCOPE (WRVU 2.57) performed by Osman Barnett MD at [facility] MAIN OR ??? PRO MICROSURG TECHNIQUES, REQ OPER MICROSCOPE N/A 02/20/2020 MICROSCOPE USE (WRVU 3.46) performed by Neo Gilman MD at [facility] OR ??? PRO MUSCLE-SKIN FLAP, TRUNK Left 02/20/2020 FLAP, MYOCUTANEOUS OR FASCIOCUTANEOUS, TRUNK (WRVU 19.86) performed by Osman Barnett MD at [facility] OR ??? PRO PLACE PERCUT GASTROSTOMY TUBE N/A 05/13/2020 ENDOSCOPY W DIRECTED PLACEMENT PERCUTANEOUS GASTROSTOMY TUBE-PEG (WRVU 3.66) performed by Trent Wood MD at [facility] OR ??? PRO REMOVAL NODES, NECK, CERV MOD RAD Left 02/20/2020 @CERVICAL LYMPHADENECTOMY (MODIFIED RADICAL NECK DISSECTION) (WRVU 23.95) performed by Osman Barnett MD at [facility] OR ??? PRO RESECT TEMPORAL BONE, DINING ROOM HOST/HOSTESS APPRCH Left 02/20/2020 @RESECTION TEMPORAL BONE, EXTERNAL APPROACH (WRVU 37.42) [facility] ??? PRO TEMP CLOSURE EYELID BY SUTURE Left 05/13/2020 TEMPORARY CLOSURE OF EYELID BY SUTURE, TARSORRHAPHY (WRVU 1.35) performed by Osman Barnett MD at [facility] OR Social History Socioeconomic History ??? Marital status: Spouse name: Not on file ??? Number of children: Not on file ??? Years of education: Not on file ??? Highest education level: Not on file Occupational History ??? Occupation: retired Tobacco Use ??? Smoking status: Former Smoker Packs/day: 1.00 Years: 40.00 Pack years: 40.00 Types: Cigarettes Quit date: 01/08/2003 Years since quittin.4 ??? Smokeless tobacco: Never Used Vaping Use [...] lives with his of 49 years in [facility]. 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 acetaminophen (Tylenol) 500 mg Tablet Take [...] Take 81 mg by mouth daily. ??? gabapentin (Neurontin) 300 mg Capsule Take 600 mg by mouth nightly. ??? pantothenic Ac-Min Oil-Pet,Hyd (AQUAPHOR) 41 % Ointment Apply topically. No current facility-administered medications on file prior to visit. IMAGING/LAB I have personally reviewed the imaging reports and images referenced in the oncologic hx and agree with the assessment as stated. Further pertinent imaging data below EXAMINATION: CT NECK SOFT TISSUE W CONTRAST (GENERIC) ?? 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 TECHNIQUE: CT neck performed after the intravenous administration of contrast. Administered 110.0 ml of OMNIPAQUE 350.00 mg/ml. ?? COMPARISON: CT neck of 09/11/2020 ?? FINDINGS: The left-sided resection and free flap graft are unchanged in appearance. The soft tissue attenuation material within the mastoidectomy defect is similarly unchanged. No new mass or lymphadenopathy is evident within the neck. ?? The upper lungs are clear. No expansile or destructive osseous lesion is present. There is mild calcific atherosclerotic irregularity at the carotid bifurcations. The right parotid and submandibular glands and the thyroid gland are of normal appearance. Imaged portions of the brain and orbits show no abnormality. ?? IMPRESSION No evidence of recurrent neoplasm ASSESSMENT / PLAN Disease Status: LIZZIE clinically and by imaging ?? We discussed that he is still at risk of recurrence and requires continued surveillance Toxicity: ?? Expected mild toxicities ?? Dental: following with dentistry. ?? Thyroid Function: check at next visit FU: follow per HN grid documented in this encounter Plan of Treatment Upcoming Encounters Date Type Specialty Care Team Description 10/21/2021 Infusion Hematology and Oncology 11/09/2021 Office Visit Hematology and Oncology Alhaji Ritchie MD [facility] DR ONCOLOGY DEPT. [place], [place] [address] (Jin carson) 11/09/2021 Infusion Hematology and Oncology 12/10/2021 Office Visit Dermatology Silas Walters MD [address] [place] [address] DERMATOLOGY [place], [place] [address] (Jin carson) 09/19/2039 Hospital Encounter Surgery Osman Barnett MD [facility] OTOLARYNGOLOGY D EPT. [place], [place] [address] (Jin carson) Scheduled Procedures Name [...] left documented in this encounter Care Teams Admissions Specialist Relationship Specialty Start Date End Date Tara Joya MD PCP - General Family Medicine 05/16/[address] [place] [address] documented as of this encounter
--- OUTSIDE RECORDS SUMMARY | 2021-10-21 07:57 | XMS_ITS | Encounter Summary ---
:1950 Author Organization [facility] [place] [address] Care Team Providers Name Role Phone Tara Joya MD Primary Care Provider [phone] Encounter Details Date Type Department Care Team Description 2020 Office Visit Otolaryngology at [facility] Ericka, Squamous cell carcinoma, ear , left; [facility] Osman Lobo MD Lagophthalmos of left upper eyelid, unsp ecified [place] [address] CENTER [phone] [place] [address] Social History Tobacco Use Types Packs/Day Years [...] - Inhaled Oxygen Concentration - - Weight 72.9 kg (160 lb 12.8 oz) 2020 4:13 PM EDT Height 175.3 cm (5' 9.02) 2020 4:13 PM EDT Body Mass Index 23.73 2020 4:13 PM EDT documented in this encounter Progress Notes Osman Humphrey MD - 2020 4:[address] [facility] [place]OR [facility] FOLLOW UP NOTE Ward Santamaria is a 70 y.o. male followed for: pT4a N3b (AJCC 8th ed.) left ear [...] with concurrent weekly cisplatin 04/14 - 05/28/2020 New issues since last visit: G-tube is out, gaining weight. Feels that his eye closure is getting a bit worse, especially when heis shooting and trying to close his eye. He is interested in revising his auricle position and debulk his flap. PROBLEM LIST Patient Active Problem List Diagnosis [...] since quittin.9 ??? Smokeless tobacco: Never Used Substance Use [...] tablet Take 81 mg by mouth daily. No current facility-administered medications on file prior to visit. ALLERGIES Allergies Allergen Reactions ??? Penicillins rash ??? Codeine Phosphate Rash ROS Pertinent positive findings discussed above. No other findings on review of constitutional visual, cardiovascular, respiratory, gastrointestinal, genitourinary, musculoskeletal, dermatologic, neurological, psychiatric, endocrine, hematologic or immunologic systems. PHYSICAL EXAMINATION Wt Readings from Last 3 Encounters: 12/04/20 72.9 kg (160 lb 12.8 oz) 12/03/20 72.9 kg (160 lb 12.8 oz) 10/27/20 72.8 kg (160 lb 6.4 oz) General: Well developed, no distress Head/face: Normocephalic, atraumatic. He has complete eye closure on the left but overall weaker than the right. The auricle is malpositioned as a result of partial dehiscence postoperatively. Neck: No adenopathy, no masses, normal thyroid, normal salivary gland exam. Trachea midline. Flap is bulkyat the base. Resp: Normal speech, no stridor, normal respirations. Skin: Normal skin survey of the head and neck. MSK: No trismus, normal neck range of motion Neuro: AxOx3; CN II-XII is grossly intact. Upper division of facial nerve on the left is slightly weak but intact. Lower division weakness. Psych: Normal mood and affect. Responds appropriately to questions. PROCEDURES None REVIEW OF IMAGES Narrative & Impression EXAMINATION: CT NECK SOFT TISSUE W CONTRAST (GENERIC) ?? CLINICAL HISTORY: Head/neck cancer, surveillance ? TECHNIQUE: CT neck performed after the intravenous administration of contrast. Administered 97.0 ml of OMNIPAQUE 350.00 mg/ml. ?? COMPARISON: Preoperative MRI 01/11/2020, PET/CT 02/13/2020, and planning CT 04/23/2020. ?? FINDINGS: Unchanged postsurgical findings including flap reconstruction of the left neck. No recurrent mass or mass effect. No lymphadenopathy. Visualized portions of the aerodigestive are unremarkable. ?? Left submandibular gland has been resected. Glandular tissue is otherwise normal. ?? Review of bone windows is unremarkable. ?? IMPRESSION No evidence of recurrent or progressive disease. ASSESSMENT/RECOMMENDATIONS LIZZIE clinically and radiographically He would benefit from revision of his auricle and debulking of the flap. We could also consider a very light gold weight implant at the same time. I appreciate the opportunity to be involved in Mr. Santamaria's care. OSMAN HUMPHREY MD 2020 documented in this encounter Plan of Treatment Upcoming Encounters Date Type Specialty Care Team Description 10/21/2021 Infusion Hematology and Oncology 11/09/2021 Office Visit Hematology and Oncology Alhaji Ritchie MD [facility] DR ONCOLOGY DEPT. [place], [place] [address] (Wo rk) 11/09/2021 Infusion Hematology and Oncology 12/10/2021 Office Visit Dermatology Silas Walters MD [address] DERMATOLOGY [place], [place] [address] (Wo rk) 09/19/2039 Hospital Encounter Surgery Osman Humphrey MD [facility] OTOLARYNGOLOGY D EPT. [place], [place] [address] (Wo rk) Scheduled Procedures Name [...] Diagnoses Diagnosis Squamous cell carcinoma, ear, left Lagophthalmos of left upper eyelid, unsp ecified lagophthalmos type documented in this encounter Care Teams Chief Architect Relationship Specialty Start Date End Date Tara Joya MD PCP - General Family Medicine 05/16/[address] [place] [address] documented as of this encounter
--- OUTSIDE RECORDS SUMMARY | 2021-10-21 07:57 | XMS_ITS | Encounter Summary ---
:1950 [place] [address] Care Team Providers Name Role Phone Tara Joya MD Primary Care Provider [phone] Encounter Details Date Type Department Care Team Description 01/01/2021 Telephone Otolaryngology at [facility] [place] [address] Social History Tobacco Use Types Packs/Day Years Used Date Former Smoker Cigarettes 1 40 Quit: 01/09/20 03 Smokeless Tobacco: Never Used Alcohol Use Standard Drinks/Week Comments No 0 (1 standard drink = 0.6 oz pure alcoho l) Sex Assigned at Date Recorded Not on file documented as of this encounter Miscellaneous Notes Telephone Encounter - Violette Patel - 01/15/2021 11:21 AM EDT NEW SURGERY DATE IS 03/11/21. PLEASE RESCHEDULE F/U NEEDED. THANK YOU. VIOLETTE Telephone Encounter - Violette Patel - 01/13/2021 4:47 PM EDT NEW SURGERY DATE IS 01/20/21. PLEASE RESCHEDULE F/U APPOINTMENTS NEEDED. THANK YOU. Telephone Encounter - My Brady - 01/01/2021 2:45 PM EDT Yung, Patient is scheduled to have surgery on 01/27/2021 and the packet has been mailed to the verified address on file. Follow up appointment is as follows: No follow up indicated in case Thank you!! documented in this encounter Plan of Treatment Upcoming Encounters Date Type Specialty Care Team Description 10/21/2021 Infusion Hematology and Oncology 11/09/2021 Office Visit Hematology and Oncology Alhaji Ritchie MD [facility] DR ONCOLOGY DEPT. [place], [place] [address] (Wo rk) 11/09/2021 Infusion Hematology and Oncology 12/10/2021 Office Visit Dermatology Silas Walters MD [address] [place] [address] DERMATOLOGY [place], [place] [address] (Wo rk) 09/19/2039 Hospital Encounter Surgery Osman Barnett MD [facility] OTOLARYNGOLOGY D EPT. [place], [place] [address] (Wo rk) Scheduled Procedures Name [...] on filedocumented in this encounter Care Teams Lamp Mechanic Relationship Specialty Start Date End Date Tara Joya MD PCP - General Family Medicine 05/16/[address] [place] [address] documented as of this encounter
--- OUTSIDE RECORDS SUMMARY | 2021-10-21 07:57 | XMS_ITS | Encounter Summary ---
:1950 Author Organization [facility] [place] [address] Care Team Providers Name Role Phone Tara Joya MD Primary Care Provider [phone] Reason for Referral Diagnostic Test (Routine) - Closed Specialty Diagnoses / Procedures Referred By Contact Refer red To Contact Radiology Diagnoses Squamous cell carcinoma of ear, left Eleazar Galdamez MD [facility] Rad Ct Scan Procedures CT Neck Soft Tissue w Contrast (Generic) [facility] [place] [address] [place] [address] Referral ID Status Reason Start Date Expiration Date Visits V isits Requested Authorized [id number] Closed Specialty 03/09/2021 09/07/2022 1 1 Service Requested Reason for Visit Diagnostic Test (Routine) - Closed Specialty Diagnoses / Procedures Referred By Contact Refer red To Contact Radiology Diagnoses Squamous cell carcinoma of ear, left Eleazar Galdamez MD [facility] Rad Ct Scan Procedures CT Neck Soft Tissue w Contrast (Generic) [facility] [place] [address] [place] [address] Referral ID Status Reason Start Date Expiration Date Visits V isits Requested Authorized [id number] Closed Specialty 03/09/2021 09/07/2022 1 1 Service Requested Encounter Details Date Type Department Care Team Description 05/28/[address] Scan at [facility] Eleazar Galdamez Squamous cell [facility] MD Reji carcinoma of ear, [address] [facility] [place], [place] [facility] [address] RADIATION [phone] [place] [address] Social History Tobacco Use Types Packs/Day Years Used Date Former Smoker Cigarettes 1 40 Quit: 01/09/20 03 Smokeless Tobacco: Never Used Alcohol Use Standard Drinks/Week Comments No 0 (1 standard drink = 0.6 oz pure alcoho l) Sex Assigned at Date Recorded Not on file documented as of this encounter Medications at Time of Discharge Medication Sig Dispensed Refills Start Date End Date pantothenic Ac-Min Apply topically. 0 Oil-Pet,Hyd (AQUAPHOR) [...] Visit Hematology and Oncology Alhaji Ritchie MD [facility] ONCOLOGY DEPT. [place], [place] [address] (Wo rk) 11/09/2021 Infusion Hematology and Oncology 12/10/2021 Office Visit Dermatology Silas Walters MD [address] DERMATOLOGY [place], [place] [address] (Wo rk) 09/19/2039 Hospital Encounter Surgery Osman Barnett MD [facility] OTOLARYNGOLOGY Sharlene EPT. [place], [place] [address] (Wo rk) Scheduled Procedures Name [...] Priority Date/Time Associated Diagnosis Comme nts CT NECK SOFT TISSUE Routine 05/28/2021 11:41 AM Squamous cell Results for this W CONTRAST EST carcinoma of ear, procedure are in left the results section. documented in this encounter Results CT Neck Soft Tissue w Contrast (Generic) (05/28/2021 11:41 AM EST) Anatomical Region Laterality Modality Neck, Head Computed Tomography Specimen (Source) Anatomical Collection Method Collection Time Re ceived Time Location / / Volume Laterality 05/28/2021 11:57 AM EST Impressions 05/28/2021 2:18 PM EST No evidence of recurrent neoplasm Thank you for letting us participate in the care of this patient. ??If you are a health care provider and have any questi ons regarding this report, please contact the number below. ??For patients who have questions please contact the health home health care coordinator that requested your imaging first. ? Narrative 05/28/2021 2:18 PM EST EXAMINATION: CT NECK SOFT TISSUE W CONTRAST (GENERIC) CLINICAL HISTORY: Head/neck cancer, surv eillance s.p surgery / radiation for hn cancer, a ssess for recurrence TECHNIQUE: CT neck performed after the intravenous administration of contrast. Administered 110.0 ml of OMNIPAQUE 350.00 mg/ml. COMPARISON: CT neck of 09/11/2020 FINDINGS: The left-sided resection and free flap g raft are unchanged in appearance. The soft tissue attenuation material within the mastoidectomy defect is similarly unchanged. No new mass or lymphadenopath y is evident within the neck. The upper lungs are clear. No expansile or destructive osseous lesion is present. There is mild calcific atherosc lerotic irregularity at the carotid bifurcations. The right parotid and subm andibular glands and the thyroid gland are of normal appearance. Imaged portion s of the brain and orbits show no abnormality. Procedure Note Mehul Tamayo MD - 05/28/2021Format ting of this note might be different from the original. 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 Administered 110.0 ml of OMNIPAQUE 350.00 mg/ml. COMPARISON: CT neck of 09/11/2020 FINDINGS: The left-sided resection and free flap g raft are unchanged in appearance. The soft tissue attenuation material within the mastoidectomy defect is similarly unchanged. No new mass or lymphadenopath y is evident within the neck. The upper lungs are clear. No expansile or destructive osseous lesion is present. There is mild calcific atherosc lerotic irregularity at the carotid bifurcations. The right parotid and subm andibular glands and the thyroid gland are of normal appearance. Imaged portion s of the brain and orbits show no abnormality. IMPRESSION No evidence of recurrent neoplasm Thank you for letting us participate in the care of this patient. If you are a health care provider and have any questi ons regarding this report, please contact the number below. For patients w ho have questions please contact the health home health care coordinator that requested your imaging first. Eleazar Galdamez MD IMG CT ORDERABLES documented in this encounter Visit Diagnoses Diagnosis Squamous cell carcinoma of ear, left documented in this encounter Administered Medications Inactive Administered Medications - up to 3 most recent administrations Medication Order MAR Action Action Date Dose Rate Site iohexoL (Omnipaque) (350 mg/mL) Given 05/28/2021 11:41 AM EST 11 0 mLs solution 0-200 mL 0-200 mL, Intravenous, ONCE PRN, 1 dose, Starting on Jessica 05/28/21 at 1141, Until Jessica 05/28/21 at 1141, Per Protocol, Warning Vesicant/Irritant Medication , Radiology Contrast, Routine documented in this encounter Care Teams Diet Supervisor Relationship Specialty Start Date End Date Tara Joya MD PCP - General Family Medicine 05/16/[address] [place] [address] documented as of this encounter
--- OUTSIDE RECORDS SUMMARY | 2021-10-21 07:57 | XMS_ITS | Encounter Summary ---
:1950 Author Organization [facility] [place] [address] Care Team Providers Name Role Phone Tara Joya MD Primary Care Provider [phone] Encounter Details Date Type Department Care Team Description 08/03/2021 Office Visit Otolaryngology at [facility] Kylie Costello, Squamous cell [facility] Sharlene phillips APRN carcinoma, ear, [place] [address] [facility] [phone] [facility] OTOL[facility] DEPT. [place], [place] [address] Social History Tobacco Use Types [...] - Inhaled Oxygen Concentration - - Weight 69.2 kg (152 lb 9.6 oz) 08/03/2021 11:35 AM EDT Height 175.3 cm (5' 9) 08/03/2021 11:35 AM EDT Body Mass Index 22.54 08/03/2021 11:35 AM EDT documented in this encounter Progress Notes Kylie Costello APRN - 08/03/2021 11:30 AM EDT [facility] Follow up note ?? ID: Ward is a 70 year old with a hx of pT4a N3b of the left ear. Here for a recheck with concerns ofbone exposure. HPI: this was copied from Urbano Beck's note on 05/28/2021. pT4a N3b (AJCC 8th ed.)??left ear A. History of L facial SCCa [...] a light gold weight implant, was discussed. ?? Interval history since last visit: Ward was last seen on 05/28/2021. At that time the plan was to return to the OR for left ear/neck flap reconstruction debulking I the OR, with right post auricular lesion removal as well with . HE had LIZZIE. In the last 2 weeks they have noticed a bony exposure and an opening along the left postauricular area. They have been cleaning the area with hydrogen peroxide and then applying Aquaphor. The opened area has closed but the bony exposure is still present. No fevers or pain. He is able close the left eye but not completely at times. He is not sure if hewants to have a gold implant placed. He has some difficulty shooting due to the eye not closing completely. No other issues with vision. He does have a sebaceous cyst on the right postauricular area that is increasing in size and he wants removed. He is eating and drinking without a problem but does not feel he has much of an appetite. ?? Diet: Normal ?? PROBLEM LIST: Patient Active [...] Types: Cigarettes Quit date: 01/08/2003 Years since quittin.5 ??? Smokeless tobacco: Never Used Vaping Use [...] lives with his of 49 years in [facility]. 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 Two adult sons live in this building and are involved in pt's care. Social Determinants of Health Financial Resource Strain: Not on file Food Insecurity: Not on file Transportation Needs: Not on file Physical Activity: Not on file Housing Stability: Not on file MEDICATIONS: Current Outpatient Medications: ??? gabapentin (Neurontin) 300 mg Capsule, Take 600 mg by mouth nightly., Disp: , Rfl: ??? pantothenic Ac-Min Oil-Pet,Hyd (AQUAPHOR) 41 % [...] Left lower lip with mild drop. Oropharynx: soft palate, lateral pharyngeal wall, posterior pharynx symmetric, [...] of pT4a N3b of the left ear. With LIZZIE but with bony exposure along the left post auricular area with flap with LIZZIE. Also noted to have sebaceous cyst on the right postauricular area. This will be excised.with the debulking of the flap and covering the bone exposure. He will also consider if he wants to have an implant placed in the left eye lid to help with closure. He will work on eye exercises to see if that helps. Consent will be done the day of surgery. The ophthalmic surgical assistant was notified of the need for surgery. Monitor for any infection issues. Continue to clean the bone exposure with hydrogen peroxide /andwater daily and the Aquaphor bid. F/u per grid. documented in this encounter Plan of Treatment Upcoming Encounters Date Type Specialty Care Team Description 10/21/2021 Infusion Hematology and Oncology 11/09/2021 Office Visit Hematology and Oncology Alhaji Ritchie MD [facility] DR ONCOLOGY DEPT. [place], [place] [address] (Wo rk) 11/09/2021 Infusion Hematology and Oncology 12/10/2021 Office Visit Dermatology Silas Walters MD [address] DERMATOLOGY [place], [place] [address] (Wo rk) 09/19/2039 Hospital Encounter Surgery Osman Barnett MD [facility] OTOLARYNGOLOGY D EPT. [place], [place] [address] (Wo rk) Scheduled Procedures Name [...] Diagnoses Diagnosis Squamous cell carcinoma, ear, left documented in this encounter Care Teams Web Graphic Designer Relationship Specialty Start Date End Date Tara Joya MD PCP - General Family Medicine 05/16/[address] [place] [address] documented as of this encounter
--- OUTSIDE RECORDS SUMMARY | 2021-10-21 07:57 | XMS_ITS | Encounter Summary ---
:1950 [place] [address] Care Team Providers Name Role Phone Tara Joya MD Primary Care Provider [phone] Encounter Details Date Type Department Care Team Description 05/26/2021 Telephone Dermatology at [facility] Yady Interiano LPN [address] [place] [address] Social History Tobacco Use Types Packs/Day Years Used Date Former Smoker Cigarettes 1 40 Quit: 01/09/20 03 Smokeless Tobacco: Never Used Alcohol Use Standard Drinks/Week Comments No 0 (1 standard drink = 0.6 oz pure alcoho l) Sex Assigned at Date Recorded Not on file documented as of this encounter Miscellaneous Notes Telephone Encounter - Yady Interiano LPN - 05/26/2021 11:49 AM EST 05/21/21 Lower mid central back excision Dx: Clear margins No further treatment necessary, return to clinic for suture removal Reviewed biopsy results and Dr. Washburn recommendation with patient. He voiced understanding. documented in this encounter Plan of Treatment Upcoming Encounters Date Type Specialty Care Team Description 10/21/2021 Infusion Hematology and Oncology 11/09/2021 Office Visit Hematology and Oncology Alhaji Ritchie MD [facility] DR ONCOLOGY DEPT. [place], [place] [address] (Wo rk) 11/09/2021 Infusion Hematology and Oncology 12/10/2021 Office Visit Dermatology Silas Walters MD [address] DERMATOLOGY [place], [place] [address] (Wo rk) 09/19/2039 Hospital Encounter Surgery Osman Barnett MD [facility] OTOLARYNGOLOGY D EPT. [place], [place] [address] (Wo rk) Scheduled Procedures Name [...] on filedocumented in this encounter Care Teams Onion Farmer Relationship Specialty Start Date End Date Tara Joya MD PCP - General Family Medicine 05/16/[address] [place] [address] documented as of this encounter
--- OUTSIDE RECORDS SUMMARY | 2021-10-21 07:57 | XMS_ITS | Encounter Summary ---
:1950 [place] [address] Care Team Providers Name Role Phone Tara Joya MD Primary Care Provider [phone] Encounter Details Date Type Department Care Team Description 05/12/2021 Telephone Dermatology at [facility] Yady Interiano LPN [address] [place] [address] Social History Tobacco Use Types Packs/Day Years Used Date Former Smoker Cigarettes 1 40 Quit: 01/09/20 03 Smokeless Tobacco: Never Used Alcohol Use Standard Drinks/Week Comments No 0 (1 standard drink = 0.6 oz pure alcoho l) Sex Assigned at Date Recorded Not on file documented as of this encounter Miscellaneous Notes Telephone Encounter - Yady Interiano LPN - 05/12/2021 8:06 AM EST 05/01/21 Mid central back, skin shave biopsy Dx: Early stage Melanoma Dr. Washburn recommendation: Excision Reviewed biopsy results and Dr. Washburn recommendation with patient. He voiced understanding. Surgery scheduled for May 21. documented in this encounter Plan of Treatment Upcoming Encounters Date Type Specialty Care Team Description 10/21/2021 Infusion Hematology and Oncology 11/09/2021 Office Visit Hematology and Oncology Alhaji Ritchie MD [facility] DR ONCOLOGY DEPT. [place], [place] [address] (Wo rk) 11/09/2021 Infusion Hematology and Oncology 12/10/2021 Office Visit Dermatology Silas Walters MD [address] DERMATOLOGY [place], [place] [address] (Wo rk) 09/19/2039 Hospital Encounter Surgery Osman Barnett MD [facility] OTOLARYNGOLOGY [place]arl[address] EPT. [place], [place] [address] (Jin rk) Scheduled Procedures Name Priority Associated Diagnoses [...] on filedocumented in this encounter Care Teams Museum Curator Relationship Specialty Start Date End Date Tara Joya MD PCP - General Family Medicine 05/16/[address] [place] [address] documented as of this encounter
--- OUTSIDE RECORDS SUMMARY | 2021-10-21 07:57 | XMS_ITS | Encounter Summary ---
:1950 Author Organization [facility] Address [facility] [place] [address] Care Team Providers Name Role Phone Tara Joya MD Primary Care Provider [phone] Encounter Details Date Type Department Care Team Description 05/01/2021 Hospital Encounter Laboratory [facility] [place] [address] Social History Tobacco Use Types Packs/Day [...] MD [facility] DR ONCOLOGY DEPT. [place], [place] [address] (Wo rk) 11/09/2021 Infusion Hematology and Oncology 12/10/2021 Office Visit Dermatology Silas Walters MD [address] [facility] DERMATOLOGY [place], [place] [address] (Wo rk) 09/19/2039 Hospital Encounter Surgery Osman Barnett MD [facility] OTOLARYNGOLOGY D EPT. [place], [place] [address] (Wo rk) Scheduled Procedures Name [...] Name Priority Date/Time Associated Diagnosis Comme nts SURGICAL PATHOLOGY Routine 05/01/2021 12:00 PM Re sults for this REPORT EST procedure are i n the results section. documented in this encounter Results Surgical Pathology Report (05/01/2021 12:00 PM EST) Component Value Ref Test Analysis Performed At [facility] Method Time Signature Surgical [id number] ? Location: [facility] Pathology [place] Report The signing pathologist has (i) examined the relevant preparation(s) for the [facility] specimen(s) and (ii) rendered or confirmed the diagnosis(es) . HOSPITAL [facility] . ?Surgic al Pathology DIAGNOSIS Mid central back, skin shave biopsy: - Melanoma (0.5 mm Breslow depth, negative for ulcer, see sy noptic) Electronically signed by: ?Thelma ROMERO, Jose Mendoza Verified: ??05/11/2021 15:32 ??Dermatopathologist Performed at: ??-[facility] Dept. of Pathology, [place], [place] SYNOPTIC Specimen ? Procedure: ??Biopsy, shave ? Specimen Laterality: ??Midline Tumor ? Tumor Site: ??Skin of trunk - mid central back ? Histologic Type: ??Superficial spreading type ?Histologic Type Comment: ??This is predominantly melanoma in situ with ? backgroun d features of a dysplastic nevus, and scattered intradermal ? nests and single melanoma cells. ? Maximum Tumor (Breslow) Thickness (Millimeters) : ??0.5 mm ? Ulceration: ??Not identified ? Anatomic (Joshua ) Level: ??II (melanoma present in but does not fill and expand ?papillary dermis) ? Mitotic Rate: ??None identified ? Microsatellite(s): ??Not identified ? Lymphovascular Invasion: ??Not identified ? Neurotropism: ??Not identified ? Tumor-Infiltrating Lymphocytes: ??Present, nonb risk ? Tumor Regression: ??Present ? Margins ?Margin Sta tus for Invasive Melanoma: ??All margins negative for invasive ? melanoma ?Margin Sta tus for Melanoma in situ: ??Melanoma in situ present at margin ? Margin (s) Involved by Melanoma in Situ: ??Peripheral; ??Deep ? Pathologic Stage Classification (pTNM, AJCC 8th Edition) ?pT Category: ??pT1a Additional Findings ? Additional Find ings: ??Associated nevus - possible compound dysplastic nevus ? [facility] August 2020 Release DISCUSSION The slides were shared with an additional intradepartmental dermatopathologist who agrees with this interpretation. ADDITIONAL STUDIES Lesional melanocytes are mostly PRAME-positive. MelanA imm unohistochemistry highlights the melanocytic proliferation and assists in mar gination. SPECIMEN(S) SUBMITTED A - mid central back, skin shave biopsy CLINICAL INFORMATION Atypical 1 cm pigmented patch; R/O MM . SPECIMEN PROCESSING A - Labeled/Fixative: Patient demographics, formalin. Quantity/Size: ??Single, 1.5 x 1.1 x 0.1 cm. Tissue Description: Shave of lema skin with a diffuse i rregular brown macule. Sections/Processing: Inked, serially sectioned and entirely submitted in 3 karl ettes as follows: ?A1: ??Tips ?A2-A3: ??Body ??pablo Specimen (Source) Anatomical Collection Method Collection Time Re ceived Time Location / / Volume Laterality 05/01/2021 12:00 PM EST Silas Walters MD PATHOLOGY/CYTOLOGY ORDERABLE S Performing Organization Address City/State/[place] [address] documented in this encounter Visit Diagnoses Not on filedocumented in this encounter Care Teams Rehabilitation Technician Relationship Specialty Start Date End Date Tara Joya MD PCP - General Family Medicine 05/16/[address] [place] [address] documented as of this encounter
--- OUTSIDE RECORDS SUMMARY | 2021-10-21 07:57 | XMS_ITS | Encounter Summary ---
:1950 Author Organization [facility] [place] [address] Care Team Providers Name Role Phone Tara Joya MD Primary Care Provider [phone] Encounter Details Date Type Department Care Team Description 07/28/2021 Telephone Otolaryngology at [facility] [place] [address] Social History Tobacco Use Types Packs/Day Years Used Date Former Smoker Cigarettes 1 40 Quit: 01/09/20 03 Smokeless Tobacco: Never Used Alcohol Use Standard Drinks/Week Comments No 0 (1 standard drink = 0.6 oz pure alcoho l) Sex Assigned at Date Recorded Not on file documented as of this encounter Miscellaneous Notes Telephone Encounter - Radha Baca RN - 07/28/2021 2:44 PM EDT 's call returned. is wondering if we received the photo she sent of patient's ear. Photo has been received and has been loaded into patient chart. After review of the photo, it's recommended by NANDA Wolfe, patient should come in for an evaluation on a day with Dr. Barnett or Dr. Gilman is in clinic, preferably within the next few days. In the mean time, it's explained patient should keep the area clean and monitor for s/sx infection or other concerns. voices understanding and acceptance of this advice and will call back if any further questions or concerns. documented in this encounter Plan of Treatment Upcoming Encounters Date Type Specialty Care Team Description 10/21/2021 Infusion Hematology and Oncology 11/09/2021 Office Visit Hematology and Oncology Alhaji Ritchie MD [facility] DR ONCOLOGY DEPT. [place], [place] [address] (Wo rk) 11/09/2021 Infusion Hematology and Oncology 12/10/2021 Office Visit Dermatology Silas Walters MD [address] [place] [address] RD DERMATOLOGY [place], [place] [address] (Wo rk) 09/19/2039 Hospital Encounter Surgery Osman Barnett MD [facility] OTOLARYNGOLOGY D EPT. [place], [place] [address] (Wo rk) Scheduled Procedures Name [...] on filedocumented in this encounter Care Teams Psychiatric Technician Assistant Relationship Specialty Start Date End Date Tara Joya MD PCP - General Family Medicine 05/16/[address] [place] [address] documented as of this encounter
--- OUTSIDE RECORDS SUMMARY | 2021-10-21 07:57 | XMS_ITS | Encounter Summary ---
:1950 Author Organization [facility] [place] [address] Care Team Providers Name Role Phone aTra Joya MD Primary Care Provider [phone] Reason for Visit Reason Onset Date Comments Other 01/30/2021 Encounter Details Date Type Department Care Team Description 01/30/2021 Telephone Hematology/Oncology at Nancy Agee RN Other [place] [phone] Social History Tobacco Use Types Packs/Day Years Used Date Former Smoker Cigarettes 1 40 Quit: 01/09/20 03 Smokeless Tobacco: Never Used Alcohol Use Standard Drinks/Week Comments No 0 (1 standard drink = 0.6 oz pure alcoho l) Sex Assigned at Date Recorded Not on file documented as of this encounter Miscellaneous Notes Telephone Encounter - Nancy Agee RN - 01/30/2021 1:24 PM EST Ward's called asking if he should have ct scan every [address] Ritchie and he stated at this time he needs physical exam every 3 months. agrees with plan. documented in this encounter Plan of Treatment Upcoming Encounters Date Type Specialty Care Team Description 10/21/2021 Infusion Hematology and Oncology 11/09/2021 Office Visit Hematology and Oncology Alhaji Ritchie MD [facility] DR ONCOLOGY DEPT. [place], [place] [address] (Wo rk) 11/09/2021 Infusion Hematology and Oncology 12/10/2021 Office Visit Dermatology Silas Walters MD [address] DERMATOLOGY [place], [place] [address] (Wo rk) 09/19/2039 Hospital Encounter Surgery Osman Barnett MD [facility] OTOLARYNGOLOGY [address] EPT. [place], [place] [address] (Wo rk) Scheduled Procedures Name [...] on filedocumented in this encounter Care Teams Emergency Doctor Relationship Specialty Start Date End Date Tara Joya MD PCP - General Family Medicine 05/16/[address] [place] [address] documented as of this encounter
--- OUTSIDE RECORDS SUMMARY | 2021-10-21 07:57 | XMS_ITS | Encounter Summary ---
:1950 Author Organization [facility] [place] [address] Care Team Providers Name Role Phone Tara Joya MD Primary Care Provider [phone] Encounter Details Date Type Department Care Team Description 05/28/2021 Hospital Encounter Hematology and Squamou s cell carcinoma Oncology at [facility] of ear, [place] [address] Social History Tobacco Use Types Packs/Day [...] Visit Hematology and Oncology Alhaji Ritchie MD [facility] DR ONCOLOGY DEPT. [place], [place] [address] (Wo rk) 11/09/2021 Infusion Hematology and Oncology 12/10/2021 Office Visit Dermatology Silas Walters MD [address] [place] [address] DERMATOLOGY [place], [place] [address] (Wo rk) 09/19/2039 Hospital Encounter Surgery Osman Barnett MD [facility] OTOLARYNGOLOGY D EPT. [place], [place] [address] (Wo rk) Scheduled Procedures Name [...] Procedure Name Priority Date/Time Associated Diagnosis Comme [facility] CREATININE Routine 05/28/2021 9:49 AM Squamous cell Results for this EST carcinoma of ear, procedure are in the left results section . documented in this encounter Results (ABNORMAL) Creatinine (05/28/2021 9:49 AM EST) P athologist Signature Creatinine 1.34 0.80 - IMAN MOREJON 1.50 mg/dL [facility] Estimated GFR 54 (L) >=60 IM[facility] MOREJON mL/min/1.7 [facility] 3 ?? [facility] Comment: This patient? s estimated glomerular filtration rate (eGFR) is between 54 mL/min/1.73 m2 (patients with less muscl e mass per kg body weight) and 62 mL/min/1.73 m2 (patients with more muscl e mass per kg body weight) as determined by the CKD-EPI equation. Asse ssment of eGFR is not appropriate when creatinine concentrations are rapidly ch anging. For clinical decisions where creatinine clearance will affect therapy , a 24-hour urine creatinine clearance may be advised. Assignment of CKD stage 1 - 5 for patien ts with an eGFR near the transition point between stages may be based on cli nical assessment of muscle mass and symptoms in addition to eGFR. 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
--- OUTSIDE RECORDS SUMMARY | 2021-10-21 07:57 | XMS_ITS | Encounter Summary ---
:1950 Author Organization [facility] Address [facility] [place] [address] Care Team Providers Name Role Phone Tara Joya MD Primary Care Provider [phone] Encounter Details Date Type Department Care Team Description 05/21/2021 Hospital Encounter Laboratory [facility] [place] [address] Social History Tobacco Use Types Packs/Day [...] MD [facility] DR ONCOLOGY DEPT. [place], [place] [address] (Wo rk) 11/09/2021 Infusion Hematology and Oncology 12/10/2021 Office Visit Dermatology Silas Walters MD [address] [facility] DERMATOLOGY [place], [place] [address] (Wo rk) 09/19/2039 Hospital Encounter Surgery Osman Barnett MD [facility] OTOLARYNGOLOGY D EPT. [place], [place] [address] (Wo rk) Scheduled Procedures Name [...] Associated Diagnosis Comme nts SURGICAL PATHOLOGY Routine 05/21/2021 12:00 PM Re sults for this REPORT EST procedure are i n the results section. documented in this encounter Results Surgical Pathology Report (05/21/2021 12:00 PM EST) Component Value Ref Test Analysis Performed At Psychiatric Method Time Signature Surgical [id number] ? Location: [facility] DARLE[place] Report The signing pathologist has (i) examined the relevant preparation(s) for the [facility] specimen(s) and (ii) rendered or confirmed the diagnosis(es) . HOSPITAL LAB[facility]ORY . ?Surgic al Pathology DIAGNOSIS Lower mid central back, excision: - Focal residual melanoma in situ, ?? margins negative - ??Dermal scar and procedure site changes - Incidental ??Seborrheic keratosis Electronically signed by: ?Thelma ROMERO, Jose Mendoza Verified: ??05/25/2021 16:48 ??Dermatopathologist Performed at: ??-[facility] Dept. of Pathology, [place], [place] SPECIMEN(S) SUBMITTED A - Lower mid central back, Excision Referring Identifier: ?(not provided) Report to: (not provided) CLINICAL INFORMATION Biopsy proven MM 0.5 mm breslow depth for excision, [id number] SPECIMEN PROCESSING A - Labeled/Fixative: Patient demographics, formalin. Quantity/Size: ??Single, 4.2 x 2.6 cm, excised to a depth of 0.5 cm. Tissue Description: Non-orie nted ellipse of lema-pink skin with a 1.1 x 0.9 cm crusted biopsy scar Sections/Processing: Inked and entirely submitted in 6 cassettes as follows: ?A1: ??tips ?A2-A6: ??Body, sequentially submitted ??ajw Specimen (Source) Anatomical Collection Method Collection Time Re ceived Time Location / / Volume Laterality 05/21/2021 12:00 PM EST Silas Walters MD PATHOLOGY/CYTOLOGY ORDERABLE S Performing Organization Address City/State/ZIP [place] [address] documented in this encounter Visit Diagnoses Not on filedocumented in this encounter Care Teams Inspector And Clipper Relationship Specialty Start Date End Date Tara Joya MD PCP - General Family Medicine 2/26/[address] [place] [address] documented as of this encounter
--- OUTSIDE RECORDS SUMMARY | 2021-10-21 07:57 | XMS_ITS | Encounter Summary ---
:1950 Author Organization [facility] [place] [address] Care Team Providers Name Role Phone Tara Joya MD Primary Care Provider [phone] Encounter Details Date Type Department Care Team Description 03/04/2021 Office Visit Radiation Oncology at Eleazar Galdamez, Squamous cell [facility] carcinoma of ear, left [address] [place] [address] RADIATION ONCOLOGY [phone] [place] [phone] Social History Tobacco Use Types Packs/Day Years Used Date Former Smoker Cigarettes 1 40 Quit: 01/09/20 03 Smokeless Tobacco: Never Used Alcohol Use Standard Drinks/Week Comments No 0 (1 standard drink = 0.6 oz pure alcoho l) Sex Assigned at Date Recorded Not on file documented as of this encounter Last Filed Vital Signs Vital Sign Reading Time Taken Comments Blood Pressure 126/70 03/04/2021 1:43 PM EST Pulse 92 03/04/2021 1:43 PM EST Temperature 37.1 ??C (98.8 ??F) 03/04/2021 1:43 PM EST Respiratory Rate 18 03/04/2021 1:43 PM EST Oxygen Saturation 100% 03/04/2021 1:43 PM EST Inhaled Oxygen Concentration - - Weight 71.4 kg (157 lb 6.4 oz) 03/04/2021 1:43 PM EST Height - - Body Mass Index 23.23 12/15/2020 1:12 PM EDT documented in this encounter Progress Notes Eleazar Galdamez MD - 03/04/2021 1:30 PM EST Images from the original note were not [...] Post-therapy course: Time from therapy completion: ~ 9 months INTERVAL HISTORY: no significant issues since his last visit Currently, he has the following symptoms: Symptom Description Intervention Pain Denies Dysphagia Minimal coughing associated with dry foods Xerostomia / Dysgeusia Minimal dysgeusia; xerostomia, moderate, stable water Neck Fibrosis / Lymphedema / Pain Left neck no issues Dental / Trismus Seeing dentist, tooth extracted. Trismus to 2 cm, stable. Using fluoride moutwash Nutrition Issues / Weight Loss Tendency to lose weight, slight decrease over 6 months Feeding Tube Not present Skin Denies Otalgia [...] confined to bed or chair EXAM Vitals: 03/04/21 1343 BP: 126/70 Patient Position: Sitting Pulse: 92 Resp: 18 Temp: 37.1 ??C (98.8 ??F) TempSrc: Temporal SpO2: 100% Weight: 71.4 kg (157 lb 6.4 oz) Physical Exam Constitutional: Appearance: He is well-developed. HENT: Head: Comments: Well healed graft, soft to palpation. No findings suspicious for recurrence. Patchy dry skin. Mouth/Throat: Comments: Visual inspection of OC and OP revealed no evidence of suspicious masses or lesions. Moisture poor. Pt with teeth in good repair, tooth extraction site healing Eyes: Pupils: Pupils are equal, round, and reactive to light. Neck: Comments: Palpation reveals no adenopathy in cervical, SCLV, ICLV delmer basins. Promontory of bone posterior to ear prominent with overlying dry skin, not concerning for malignancy. Cardiovascular: Rate and Rhythm: Normal rate. Pulmonary: Effort: Pulmonary effort is normal. Breath sounds: Normal breath sounds. Skin: Findings: No erythema. Neurological: Mental Status: He is alert and oriented to person, place, and time. Cranial Nerves: No cranial nerve deficit. Psychiatric: Behavior: Behavior normal. Procedures: HISTORY Allergies as of 03/04/2021 - Review Complete 03/04/2021 Allergen Reaction Noted ??? Penicillins ??? Codeine phosphate No past medical history on file. Past Surgical History: Procedure Laterality Date ??? IR MEDIPORT PLACEMENT 04/08/2020 IR Mediport Placement 04/08/2020 Mann Escobar APRN [facility] INTERVENTIONL RAD ??? IR MEDIPORT REMOVAL 09/19/2020 IR Mediport Removal 09/19/2020 Trent Huff MD [facility] INTERVENTIONL RAD ??? KIDNEY STONE SURGERY ??? PRG SOMATOSENSORY TEST, ANY/ALL PER. NERVES, TRUNK OR HEAD N/A 02/20/2020 FACIAL NERVE MONITORING, SETUP PERIPHERAL (WRVU 0.54) performed by Osman Barnett MD at [facility] MAIN OR ??? PRO ADJ TISS TRANSFER/REARRANGEMENT ANY AREA 30.1-60 SQCM Left 02/20/2020 ADJACENT TISSUE TRANSFER OR REARRANGEMENT; 30.1 TO 60.0 SQ CM, THORAX (WRVU 12.65) performed by Osman Barnett MD at [facility] MAIN OR ??? PRO ADJ TISS TRANSFER/REARRANGEMENT ANY AREA EA ADDL 30SQCM Left 02/20/2020 ADJACENT TISSUE TRANSFER OR REARRANGEMENT; EA ADD'L 30.0 SQ CM, OR PART OF (WRVU 3.73) performed byOsman Barnett MD at [facility] MAIN OR ??? PRO COLONOSCOPY, REMV LESN, SNARE N/A 07/07/2015 COLONOSCOPY, POLYPECTOMY, REMOVAL LESION BY SNARE performed by Jose Manuel Heller MD at [facility] ENDOSCOPY ??? PRO EXC PAROTD, TOTAL, DISSECT 5TH NERV Left 02/20/2020 EXCISION OF PAROTID TUMOR OR PAROTID GLAND, TOTAL, WITH DISSECTION AND PRESERVATION OF FACIAL NERVE(WRVU 19.53) performed by Osman Barnett MD at [facility] MAIN OR ??? PRO EXC SKIN MALIG 3.1-4CM FACE, FACIAL Left 02/20/2020 EXC MALIGNANT LESION, 3.1 TO 4.0CM, FACE (WRVU 4.34) performed by Osman Barnett MD at [facility] MAIN OR ? ? PRO EXC SKIN MALIG >4CM FACE, FACIAL Left 02/20/2020 EXC MALIGNANT LESION, >4.0CM, EARS (WRVU 6.26) performed by Osman Barnett MD at [facility] VANNESA ??? PRO LARYNGOSCOPY, DIRECT, DX, OP MICROSCOP N/A 05/13/2020 LARYNGOSCOPY, WITH MICROSCOPE (WRVU 2.57) performed by Osman Barnett MD at [facility] OR ??? PRO MICROSURG TECHNIQUES, REQ OPER MICROSCOPE N/A 02/20/2020 MICROSCOPE USE (WRVU 3.46) performed by Neo Gilman MD at [facility] OR ??? PRO MUSCLE-SKIN FLAP, TRUNK Left 02/20/2020 FLAP, MYOCUTANEOUS OR FASCIOCUTANEOUS, TRUNK (WRVU 19.86) performed by Osman Barnett MD at [facility] MAIN OR ??? PRO PLACE PERCUT GASTROSTOMY TUBE N/A 05/13/2020 ENDOSCOPY W DIRECTED PLACEMENT PERCUTANEOUS GASTROSTOMY TUBE-PEG (WRVU 3.66) performed by Trent Wood MD at [facility] OR ??? PRO REMOVAL NODES, NECK, CERV MOD RAD Left 02/20/2020 @CERVICAL LYMPHADENECTOMY (MODIFIED RADICAL NECK DISSECTION) (WRVU 23.95) performed by Osman Barnett MD at [facility] OR ??? PRO RESECT TEMPORAL BONE, SENIOR TELECOMMUNICATIONS CONSULTANT APPRCH Left 02/20/2020 @RESECTION TEMPORAL BONE, EXTERNAL APPROACH (WRVU 37.42) [facility] ??? PRO TEMP CLOSURE EYELID BY SUTURE Left 05/13/2020 TEMPORARY CLOSURE OF EYELID BY SUTURE, TARSORRHAPHY (WRVU 1.35) performed by Osman Barnett MD at [facility] OR Social History Socioeconomic History ??? Marital status: Spouse name: Not on file ??? Number of children: Not on file ??? Years of education: Not on file ??? Highest education level: Not on file Occupational History ??? Occupation: retired Tobacco Use ??? Smoking status: Former Smoker Packs/day: 1.00 Years: 40.00 Pack years: 40.00 Types: Cigarettes Quit date: 01/08/2003 Years since quittin.1 ??? Smokeless tobacco: Never Used Vaping Use [...] lives with his of 49 years in [facility]. 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 Currently [...] to Visit Medication Sig Dispense Refill ??? Ibuprofen 200 mg Capsule Take by [...] MD [facility] DR ONCOLOGY DEPT. [place], [place] [address] (Wo rk) 11/09/2021 Infusion Hematology and Oncology 12/10/2021 Office Visit Dermatology Silas Walters MD [address] [facility] DERMATOLOGY [place], [place] [address] (Wo rk) 09/19/2039 Hospital Encounter Surgery Osman Barnett MD [facility] OTOLARYNGOLOGY D EPT. [place], [place] [address] (Wo rk) Scheduled Procedures Name [...] left documented in this encounter Care Teams Supervisor Safety Deposit Relationship Specialty Start Date End Date Tara Joya MD PCP - General Family Medicine 05/16/[address] [place] [address] documented as of this encounter
--- OUTSIDE RECORDS SUMMARY | 2021-10-21 07:57 | XMS_ITS | Encounter Summary ---
:1950 [place] [address] Care Team Providers Name Role Phone Tara Joya MD Primary Care Provider [phone] Encounter Details Date Type Department Care Team Description 05/07/2021 Telephone Dermatology at [facility] Yady Interiano LPN [address] [place] [address] Social History Tobacco Use Types Packs/Day Years Used Date Former Smoker Cigarettes 1 40 Quit: 01/09/20 03 Smokeless Tobacco: Never Used Alcohol Use Standard Drinks/Week Comments No 0 (1 standard drink = 0.6 oz pure alcoho l) Sex Assigned at Date Recorded Not on file documented as of this encounter Miscellaneous Notes Telephone Encounter - Yady Interiano LPN - 05/07/2021 2:25 PM EST 05/01/21 Shave presternal chest Dx: SCCA, no further treatment necessary, return to clinic 2221 Reviewed above information with patient.He voiced understanding. documented in this encounter Plan of Treatment Upcoming Encounters Date Type Specialty Care Team Description 10/21/2021 Infusion Hematology and Oncology 11/09/2021 Office Visit Hematology and Oncology Alhaji Ritchie MD [facility] DR ONCOLOGY DEPT. [place], [place] [address] (Wo rk) 11/09/2021 Infusion Hematology and Oncology 12/10/2021 Office Visit Dermatology Silas Walters MD [address] [facility] [address] DERMATOLOGY [place], [place] [address] (Wo rk) 09/19/2039 Hospital Encounter Surgery Osman Barnett MD [facility] OTOLARYNGOLOGY D EPT. [place], [place] [address] (Jin rk) Scheduled Procedures Name [...] on filedocumented in this encounter Care Teams Food And Nutrition Professor Relationship Specialty Start Date End Date Tara Joya MD PCP - General Family Medicine 05/16/[address] [place] [address] documented as of this encounter
--- OUTSIDE RECORDS SUMMARY | 2021-10-21 07:57 | XMS_ITS | Encounter Summary ---
:1950 [place] [address] Care Team Providers Name Role Phone Tara Joya MD Primary Care Provider [phone] Reason for Visit Reason Comments Suture / Staple Removal Encounter Details Date Type Department Care Team Description 06/04/2021 Office Visit Dermatology at Silas Walters, History of malignant Nona ROMERO melanoma [address] [facility] [address] DERMATOLOGY [place], [place] [id number] [phone] Social History Tobacco Use Types Packs/Day Years Used Date Former Smoker Cigarettes 1 40 Quit: 01/09/20 03 Smokeless Tobacco: Never Used Alcohol Use Standard Drinks/Week Comments No 0 (1 standard drink = 0.6 oz pure alcoho l) Sex Assigned at Date Recorded Not on file documented as of this encounter Progress Notes Silas Walters MD - 06/04/2021 4:30 PM EDT Problem: Follow-up for suture removal and biopsy results Ward follows up and had an uneventful postoperative course. The biopsy did come back showing clear margins with some focal residual melanoma in situ. Physical examination shows excellent healing of the biopsy site Assessment plan: Status post excision malignant melanoma in situ lower mid central back 1. Sutures removed 2. July DC wound care instructions 3. Return to clinic in another 6 months for repeat check 4. We will plan every 6 month follow-ups for 2 years and then once yearly thereafter. CC: Tara Joya MD documented in this encounter Plan of Treatment Upcoming Encounters Date Type Specialty Care Team Description 10/21/2021 Infusion Hematology and Oncology 11/09/2021 Office Visit Hematology and Oncology Alhaji Ritchie MD [facility] DR ONCOLOGY DEPT. [place], [place] [address] (Wo rk) 11/09/2021 Infusion Hematology and Oncology 12/10/2021 Office Visit Dermatology Silas Walters MD [address] [facility] [address] [address] DERMATOLOGY [place], [place] [address] (Wo rk) 09/19/2039 Hospital Encounter Surgery Osman Barnett MD [facility] OTOLARYNGOLOGY D EPT. [place], [place] [address] (Wo rk) Scheduled Procedures Name [...] this encounter Visit Diagnoses Diagnosis History of malignant melanoma Personal history of malignant melanoma o f skin documented in this encounter Care Teams Clinical Education Manager Relationship Specialty Start Date End Date Tara Joya MD PCP - General Family Medicine 05/16/[address] [place] [address] documented as of this encounter
--- OUTSIDE RECORDS SUMMARY | 2021-10-21 07:57 | XMS_ITS | Encounter Summary ---
:1950 Author Organization [facility] [place] [address] Care Team Providers Name Role Phone Tara Joya MD Primary Care Provider [phone] Reason for Referral Diagnostic Test (Routine) - Closed Specialty Diagnoses / Procedures Referred By Contact Refer red To Contact Radiology Diagnoses Squamous cell carcinoma of ear, left Eleazar Galdamez MD [facility] Rad Ct Scan Procedures CT Neck Soft Tissue w Contrast (Generic) [facility] [place] [address] [place] [address] Referral ID Status Reason Start Date Expiration Date Visits V isits Requested Authorized [id number] Closed Specialty 03/09/2021 09/07/2022 1 1 Service Requested Encounter Details Date Type Department Care Team Description 03/09/2021 Orders Only Radiation Oncology at Eleazar Galdamez, Squamous cell [facility] carcinoma of ear, [place] [address] RADIATION ONCOLOGY [phone] [place], [place] [address] Social History Tobacco Use Types [...] Visit Hematology and Oncology Alhaji Ritchie MD [facility] DR ONCOLOGY DEPT. [place], [place] [address] (Wo rk) 11/09/2021 Infusion Hematology and Oncology 12/10/2021 Office Visit Dermatology Silas Walters MD [address] [place] [address] RD DERMATOLOGY [place], [place] [address] (Wo rk) 09/19/2039 Hospital Encounter Surgery Osman Barnett MD [facility] OTOLARYNGOLOGY D EPT. [place], [place] [address] (Wo rk) Scheduled Procedures Name [...] documented as of this encounter Results CT Neck Soft Tissue [...] who have questions please contact the health youth care specialist that requested your imaging first. ? Narrative [...] ho have questions please contact the health youth care specialist that requested your imaging first. Eleazar Galdamez MD IMG CT ORDERABLES (ABNORMAL) Creatinine (05/28/2021 9:49 AM EST) athologist Signature Creatinine 1.34 0.80 - [facility] 1.50 mg/dL [facility] Estimated GFR 54 (L) >=60 [facility] mL/min/1.7 [facility] 3 ?[facility] Comment: This patient? 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
--- OUTSIDE RECORDS SUMMARY | 2021-10-21 07:58 | XMS_ITS | Encounter Summary ---
:1950 Author Organization [facility] [place] [address] Care Team Providers Name Role Phone Tara Joya MD Primary Care Provider [phone] Encounter Details Date Type Department Care Team Description 09/11/2020 Office Visit Otolaryngology at [facility] Urbano Beck Squamous cell [facility] NANDA [place] carcinoma, ear, [place] [address] [facility] [phone] [place] [facility] [place], [place] [address] Social History Tobacco Use Types Packs/Day Years Used Date Former Smoker Cigarettes 1 40 Quit: 01/09/20 03 Smokeless Tobacco: Never Used Alcohol Use Standard Drinks/Week Comments No 0 (1 standard drink = 0.6 oz pure alcoho l) Sex Assigned at Date Recorded Not on file documented as of this encounter Progress Notes Urbano Beck PA - 09/11/2020 2:30 PM EDT [facility] FO[place] UP NOTE Ward Santamaria is a 69 y.o. 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 ?? 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 His postoperative course was complicated by dehiscence of the incision lines along the superior anterior and posterior superior aspects. He returns today forhis post adjuvant treatment visit. An MBS showed the bolus column deviated to the left at the C3- C4 level, and there was concern that this may indicate a mass at that level. New issues since last visit: No pain. Swallows about everything, but solids needs to cut in small pieces. Closes eye lid well. No swelling No new concerns. Would like to get gtube out. Dr. De Leon is to organize General Surgery removing the g-tube. PROBLEM LIST Patient Active Problem List Diagnosis [...] since quittin.6 ??? Smokeless tobacco: Never Used Substance Use Topics ??? Alcohol use: No MEDICATIONS Current Outpatient Medications on File Prior to Visit Medication Sig Dispense Refill ??? gabapentin (Neurontin) 300 mg Capsule Take 600 mg by mouth nightly. ??? glipiZIDE XL (Glucotrol XL) 5 mg Tablet Extended Rel 24 hr Take 5 mg by mouth daily. ??? polyethylene glycoL (Miralax) 17 gram Powder in Packet Take 17 g by mouth daily. ??? nystatin (Mycostatin) 100,000 unit/mL Suspension Take 5 mLs by mouth 3 times daily. (Patient nottaking: Reported on 06/04/2020) 473 mL 0 ??? pantothenic Ac-Min Oil-Pet,Hyd (AQUAPHOR) 41 % Ointment Apply topically. ??? acetaminophen (Tylenol) 500 mg Tablet Take 1,000 mg by mouth every 8 hours as needed for Pain. ??? Ibuprofen 200 mg Capsule Take by mouth as needed. ??? white petrolatum-mineral oiL (Refresh-PM) Place 1 each into the left eye 2 times daily. 1 Tube 5 ??? carboxymethylcellulose (REFRESH PLUS) 0.5 % Dropperette Place 2 drops into both eyes 4 times daily. 2 Bottle 0 ??? nitroGLYcerin (NITROSTAT) 0.4 mg Tablet, Sublingual [...] structures and conjunctiva healthy without lesions. - Tarsorrhaphy prolene suture in place in the left lower lid. - Pupils are equal, round, and reactive to light. - Extraocular movement is full and intact. - No evidence of nystagmus. NOSE Please see findings under Flexible Laryngoscopy procedure. MOUTH - Lips and gingiva pink, moist, without lesions. - Gums/dentition healthy. - Tongue and floor of mouth without lesions or masses. - Hard palate without lesions. PHARYNX - Soft palate without lesions. - Uvula is midline. - Oropharynx symmetric. NECK - Left neck flap appears healthy, with no dehiscence; soft, with no concerning lesions or masses. - Trachea midline without deviation. NEURO - Left lower lip weakness noted; good eye closure; otherwise cranial nerves II- XII intact and symmetric. - Responds appropriately to questions. PSYCHE - Normal mood and affect. CHEST - Left chest incision well-healed; along the incision there is an ~1.5cm area of heavy crusting, which was removed revealing granulation tissue. PROCEDURES Procedure: Flexible Laryngoscopy: Indications: Evaluation for mucosal lesion of the upper airway. The risks of the procedure were reviewed, and verbal consent was obtained. Topical anesthetic and decongestant applied to the nasal cavity. The scope was passed through the nasal cavity, through the nasopharynx, and into the oropharynx. The examination was recorded on the TelePack Unit and uploaded tothe [employer] Worker. Patient tolerated the procedure well without any complications. Nasal Cavity: Normal appearing mucosa. No obstructions or lesions noted. Nasopharynx: No lesions or masses noted. Oropharynx: Some thickened mucous; base of tongue/vallecula symmetric with normal appearing lingual tonsillar tissue. No masses, ulcerations or mucosal lesions noted. Larynx: Epiglottis is thin and non-edematous. Arytenoids are symmetric. True cords demonstrate full and symmetric motion. Hypopharynx: Piriform sinuses are clear bilaterally, without evidence of masses or lesions. No significant pooling of secretions was noted. No overt laryngeal penetration or aspiration. Procedure: Suture removal The left lower eye lid tarsorraphy suture was felt to be redundant, as the patient had good eye closure currently, so it was deemed appropriate to remove them. Using forceps and fine suture scissors, the sutureswere removed without difficulty. The patient tolerated the procedure well. REVIEW OF IMAGES/STUDIES CT neck soft tissue w contrast 09/11/20 FINDINGS: Unchanged postsurgical findings including flap reconstruction of the left neck. No recurrent mass or mass effect. No lymphadenopathy. Visualized portions of the aerodigestive are unremarkable. ?? Left submandibular gland has been resected. Glandular tissue is otherwise normal. ?? Review of bone windows is unremarkable. ?? IMPRESSION No evidence of recurrent or progressive disease. I personally reviewed the above imaging. ASSESSMENT/RECOMMENDATIONS - No evidence of recurrence on clinical exam or recent imaging. No concerning lesions noted in the throat to explain the MBS findings of bolus deviation. Dr. Barnett also examined the patient and reviewed the endoscopic procedure, and felt that there were no concerning findings. Discussed his returnto clinic in 2 months for reassessment. - I discussed the patietn applying aquaphor daily to the chest lesion, and that he should call the clinicif it does not start to improve in the next few weeks. Discussed that he should call to be seen for any new pain, swelling, or any other concerning symptom in the interim. - The patient expressed understanding of these points and agreement with the plan, and all questionsthat were asked were answered to the patient's satisfaction. Plan: > Return to clinic in 2 months. > Aquaphor to chest wound site daily until closure. > [facility] General Surgery for g-tube removal. > Patient should call if their symptoms worsen, if new concerning symptoms arise, or if they haveany questions or concerns regarding their treatment. I appreciate the opportunity to be involved in Mr. Santamaria's care. Urbano Beck PA-C [place], [place] [address] Office 09/11/2020 documented in this encounter Plan of Treatment Upcoming Encounters Date Type Specialty Care Team Description 10/21/2021 Infusion Hematology and Oncology 11/09/2021 Office Visit Hematology and Oncology Alhaji Ritchie MD [facility] DR ONCOLOGY DEPT. [place], [place] [address] (Wo rk) 11/09/2021 Infusion Hematology and Oncology 12/10/2021 Office Visit Dermatology Silas Walters MD [address] DERMATOLOGY [place], [place] [address] (Wo rk) 09/19/2039 Hospital Encounter Surgery Osman Barnett MD [facility] OTOLARYNGOLOGY D EPT. [place], [place] [address] (Wo rk) Scheduled Procedures Name [...] left documented in this encounter Care Teams Train Operations Manager Relationship Specialty Start Date End Date Tara Joya MD PCP - General Family Medicine 05/16/[address] [address] documented as of this encounter
--- OUTSIDE RECORDS SUMMARY | 2021-10-21 07:58 | XMS_ITS | Encounter Summary ---
:1950 Author Organization [facility] [place] [address] Care Team Providers Name Role Phone Tara oJya MD Primary Care Provider [phone] Reason for Referral Diagnostic Test (Routine) - Closed Specialty Diagnoses / Procedures Referred By Contact Refer red To Contact Diagnoses Squamous cell carcinoma of ear, left Hyperglycemia Ashok Ritchie MD Procedures CT Neck Soft Tissue w Contrast (Generic) [facility] [place] [address] Referral ID Status Reason Start Date Expiration Date Visits V isits Requested Authorized [id number] Closed Specialty 06/23/2020 12/23/2021 1 1 Service Requested Encounter Details Date Type Department Care Team Description 06/23/2020 Office Visit Hematology/Oncology Ashok Ritchie Squa mous cell carcinoma of ear, left; at [address] CENTER [address] ONCOLOGY DEPT. [phone] [place], [place] [address] Social History Tobacco Use Types Packs/Day Years [...] Taken Comments Blood Pressure - - Pulse 97 06/23/2020 1:40 PM EDT Temperature 36.9 ??C (98.4 ??F) 06/23/2020 1:40 PM EDT Respiratory Rate 18 06/23/2020 1:40 PM EDT Oxygen Saturation 99% 06/23/2020 1:40 PM EDT Inhaled Oxygen Concentration - - Weight 71.8 kg (158 lb 6.4 oz) 06/23/2020 1:40 PM EDT Height 176.5 cm (5' 9.49) 06/23/2020 1:40 PM EDT Body Mass Index 23.06 06/23/2020 1:40 PM EDT documented in this encounter Progress Notes Ashok Ritchie MD - 06/23/2020 1:45 PM EDT Hematology/Oncology Clinic [facility] Patient Active Problem List Diagnosis ??? Squamous [...] bone; LVI (extensive, large vein), PNI (+); 38 nodes involved, EDILBERTO(+) D. Adjuvant radiation with concurrent weekly cisplatin instituted 04/14/2020 Adjuvant Chemoradiation Patient's Name: Ward Santamaria RT End Date: 05/28/2020 Year 1 Post Surg wk 1 wk 2 wk 3 wk 4 wk 5 wk 6 wk 7 3 mo 4 mo 5 mo 6 mo 9 mo 08/28/20 09/27/20 10/28/20 11/28/20 02/27/21 ON ACTIVE TREATMENT COMPLETED TREATMENT Julio Cesar - MD x x Adona - AP x x Med Onc x [...] 5 YEARS: Alternate annual follow-up appointments between Adona AP and MD, beginning with AP at 6-year appt. ??? Lagophthalmos of left upper eyelid Added automatically from request for surgery [id number] ??? Encounter for venous access device care ??? Chemotherapy-induced nausea ??? Hearing loss Bilateral hearing aids prior to surgical loss of L ear 02/2020 ??? Mass of left ear Added automatically from request for surgery [id number] ??? Parotid mass Added automatically from request for surgery [id number] ??? History of basal cell carcinoma ??? Left foot pain ??? PTTD (posterior tibial tendon dysfunction) ??? Seborrheic keratosis, inflamed ??? AK (actinic keratosis) ??? Basal cell carcinoma ??? CAD (coronary artery disease) 2000- stent to mid CCX, no other CAD [...] negative ??? Basal cell cancer ??? Hypertriglyceridemia Med Onc checkup. He is just short of 1 month from completion of adjuvant chemoradiation. He has been doing well, with steady improvement. His mouth discomfort is nearly gone. Taste sensation is still poor, but he has been able to tolerate some very soft semiliquid foods. Most of his nutrition still comes to the PEG tube. He is regaining weight towards his pretreatment baseline. He has been concerned about increasing edema in the left cheek. He has not noted any masses nor any erosion into the buccal space. His right eyelid closed as well. He still has a blue suture that were placed to keep the eyelids together better. He does not have corneal irritation or epiphora. No lingering chemotherapy side effects, specifically no peripheral neuropathy nor net change in his hearing. Energy level is improving, still below baseline, KPS 80. He and his have decided to sell their house and move into an apartment complex that they have owned for 20 years. He is looking forward to the decreased need for home maintenance. Because of ongoing hyperglycemia, he is now on glipizide; because of elevated triglycerides, his Lipitor dose has been doubled. Physical exam: He looks more energetic, brighter in affect. Oral exam shows sticky phlegm, no signs of infection; resolving grade 2 mucositis along the right palate and buccal mucosa. No trismus. The surgical site in the left upper neck has healed well. He still has some crusting but no longer open skin at the suture line at the left external ear remnant. The tissue graft in the left neck is bulky but otherwise benign; he has grade 2 lymphedema palpable along the left cheek. I do not feel any nodularity no adenopathy. Left eyelid ectropion no longer shows lower lid eversion. A fine Prolene suture is visible laterally. There is no evidence of corneal irritation. The lungs are clear Mediport in the right chest is benign Cardiac exam is normal, grade 1 systolic flow murmur Abdomen is benign, no hepatosplenomegaly or masses. The PEG tube bumper was a bit tight and had beenirritating him, therefore I loosened it by about 5 mm. The site itself shows no evidence of infection. Extremities are without clubbing cyanosis or edema Neurologic exam shows grossly normal motor and sensory function. 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 Gait is independent. Reflexes 2+. Labs: Today's white count is 6.17, hemoglobin still low at 9.7, platelets 206. Chemistry studies show sodium 135, electrolytes otherwise normal; BUN improved at 31, creatinine stable at 1.2. Nonfastingglucose 302. Calcium normal. Magnesium 1.8. Hepatic enzymes normal. Albumin improved at 3.6. Labs ordered by his primary care provider 06/11/2020 included triglycerides of 932, total [id number], LDL 102, HDL 33; TSH was 1.19. No recent radiographs. 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 He is recovering from the regional effects of chemoradiation. Copious phlegm and decreased taste sensation still interfere with oral nutrition, but he is making steady progress. He remains dependent on the PEG tube for nutrition but I expect this to switch back to oral feedings within the next few months. The left eyelid ectropion looks much better after the stitch tarsorrhaphy. He seems to be developing some left cheek lymphedema, not unexpected after the extent of his surgery and radiation. Plan: No new interventions from a medical oncology perspective. Encouraged his efforts to get out and get more exercise for reconditioning. Encouraged him to use the salt and saline oral rinse to clearout the phlegm which may help with taste sensation recovery. He met with our cancer center dietitianto discuss tolerable soft oral foods to titrate up. As mentioned I loosen the PEG tube bumper by about 1/2 cm. Diabetes management per Dr. Joya. I will get in touch with the ENT team about long-term plans for his left eyelid ectropion. I reassured him about the puffiness in his left cheek, and discussed the pathophysiology of post treatment lymphedema. If this persists, I would anticipate referral to a lymphedema specialist. Follow-up per [facility] head and neck standard plan. Follow-up visits later this week with his radiation oncologist and with his swallowing therapist. Ashok Ritchie MD, FACP electrical tryout person Hematology/Oncology Section [facility]/[place] [address] Voice recognition software used for this note; please excuse chief science officer errors. I personally reviewed past medical, surgical, family medical histories, reviewed current medications, vital signs, labs, and performed full review of systems. These are documented below the narrative for clarity and succinctness. Outpatient Medications Marked as Taking for the 06/23/20 encounter (Office Visit) with Ashok Ritchie MD Medication Sig Dispense Refill ??? gabapentin (Neurontin) 300 mg Capsule Take 300 mg by mouth nightly. ??? glipiZIDE XL [...] 4 times daily. 2 Bottle 0 ??? ABILIFY 15 mg Tablet Take 15 [...] Review of systems is negative for other AUTO STRIPER, bone, pulmonary, cardiac, GI, , extremity, neurologic, endocrine, skin, constitutional, emotional, or functional problems. Vitals Office Visit from 06/23/2020 in Hematology[facility]Oncology at [facility] Weight 71.8 kg (158 lb 6.4 oz) Height 176.5 cm (5' 9.49) BSA (Calculated - sq m) 1.88 sq meters BMI (Calculated) 23.06 Temp 36.9 ??C (98.4 ??F) Heart Rate 97 Heart Rate Source Right, NIBP Resp 18 BP Location Right arm Patient Position Sitting SpO2 99 % Karnofsky Score 80 Motor Neuropathy N/A Sensory Neuropathy N/A Body surface area is 1.88 meters squared. Wt Readings from Last 3 Encounters: 06/23/20 71.8 kg (158 lb 6.4 oz) 06/11/20 67.1 kg (148 lb) 06/10/20 66.8 kg (147 lb 3.2 oz) No results found for this or any previous visit (from the past 72 hour(s)). ++++++++++++++++++++++++++++++++++++++++++++++++++++ documented in this encounter Plan of Treatment Upcoming Encounters Date Type Specialty Care Team Description 10/21/2021 Infusion Hematology and Oncology 11/09/2021 Office Visit Hematology and Oncology Alhaji Ritchie MD [facility] DR ONCOLOGY DEPT. [place], [place] [address] (Wo rk) 11/09/2021 Infusion Hematology and Oncology 12/10/2021 Office Visit Dermatology Silas Walters MD [address] DERMATOLOGY [place], [place] [address] (Wo rk) 09/19/2039 Hospital Encounter Surgery Osman Barnett MD [facility] OTOLARYNGOLOGY D EPT. [place], [place] [address] (Wo rk) Scheduled Procedures Name [...] CT Neck Soft Tissue w Contrast (Generic) (09/11/2020 10:42 AM EDT) Anatomical Region Laterality Modality Neck, Head Computed Tomography Specimen (Source) Anatomical Collection Method Collection Time Re ceived Time Location / / Volume Laterality 09/16/2020 4:33 PM EDT Impressions 09/11/2020 2:46 PM EDT No evidence of recurrent or progressive disease. Thank you for letting us participate in the care of this patient. ??If you are a health care provider and have any questi ons regarding this report, please contact the number below. ??For patients who have questions please contact the health animal caregiver that requested your imaging first. ? Narrative 09/11/2020 2:46 PM EDT EXAMINATION: CT NECK SOFT TISSUE W CONTRAST (GENERIC) CLINICAL HISTORY: Head/neck cancer, surv eillance TECHNIQUE: CT neck performed after the intravenous administration of contrast. Administered 97.0 ml of OMNIPAQUE 350.00 mg/ml. COMPARISON: Preoperative MRI 01/11/2020, PET/CT 01/20, and planning CT 04/23/2020. FINDINGS: Unchanged postsurgical findings includin g flap reconstruction of the left neck. No recurrent mass or mass effect. No lym phadenopathy. Visualized portions of the aerodigestive are unremarkable. Left submandibular gland has been resect ed. Glandular tissue is otherwise normal. Review of bone windows is unremarkable. Procedure Note Eder Berrios MD - 09/11/2020Formatt ing of this note might be different from the original. EXAMINATION: CT NECK SOFT TISSUE W CONTR AST (GENERIC) CLINICAL HISTORY: Head/neck cancer, surv eillance TECHNIQUE: CT neck performed after the intravenous administration of contrast. Administered 97.0 ml of OMNIPAQUE 350.00 mg/ml. COMPARISON: Preoperative MRI 01/11/2020, PET/CT 01/20, and planning CT 04/23/2020. FINDINGS: Unchanged postsurgical findings includin g flap reconstruction of the left neck. No recurrent mass or mass effect. No lym phadenopathy. Visualized portions of the aerodigestive are unremarkable. Left submandibular gland has been resect ed. Glandular tissue is otherwise normal. Review of bone windows is unremarkable. IMPRESSION No evidence of recurrent or progressive disease. Thank you for letting us participate in the care of this patient. If you are a health care provider and have any questi ons regarding this report, please contact the number below. For patients w ho have questions please contact the health animal caregiver that requested your imaging first. Ashok Ritchie MD IMG CT ORDERABLES documented in this encounter Visit Diagnoses Diagnosis Squamous cell carcinoma of ear, left Hyperglycemia Other abnormal glucose Squamous cell carcinoma of ear, left Hyperglycemia Other abnormal glucose documented in this encounter Care Teams Diving Coach Relationship Specialty Start Date End Date Tara Joya MD PCP - General Family Medicine 05/16/[address] [place] [address] documented as of this encounter
--- OUTSIDE RECORDS SUMMARY | 2021-10-21 07:58 | XMS_ITS | Encounter Summary ---
:1950 Author Organization [facility] [place] [address] Care Team Providers Name Role Phone Tara Joya MD Primary Care Provider Encounter Details Date Type Department Care Team Description 07/09/2020 Office Visit Hematology/Oncology at Gilda Jameson D ysphagia, unspecified type; [facility] CHRISTMAS BELL RINGER Squamous cell carcinoma of e ar, left; [address] [place] [address] [phone] Social History Tobacco Use Types Packs/Day Years Used Date Former Smoker Cigarettes 1 40 Quit: 01/09/20 03 Smokeless Tobacco: Never Used Alcohol Use Standard Drinks/Week Comments No 0 (1 standard drink = 0.6 oz pure alcoho l) Sex Assigned at Date Recorded Not on file documented as of this encounter Miscellaneous Notes Treatment - Therapy - Gilda Jameson SLP - 07/09/2020 10:45 AM EDTSummary: CHRISTMAS BELL RINGER Treatment Note Speech Language Pathology Treatment Note Patient Profile: Ward Santamaria is a 69 y.o. 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 Chemo/RT completed 05/28/20. HPI: Patient Active Problem List Diagnosis Code ??? [...] care Z45.2 ??? Chemotherapy-induced nausea R11.0, T45.1X5A Subjective: Ward Santamaria seen in clinic today for follow up visit to address dysphagia management andtrismus monitoring; spouse Nika also present for continued education. VFSE/MBSS to take place on 07/16, pre COVID test to occur through [facility]. Patient reports he is tolerating IDDSI Level 4 solids (pureed texture), however has been able to attempt some small bites of lasagna; continues to be inhibited by taste at this time. Spouse reports pills are hard to swallow, has not been completing trismus exercises as reviewed; patient is open to motivational interview during session today. Objective: Pain: 0/10 Respiratory Status: Room air Vision: N/A Hearing: Significant Impairment Current Diet: No diet orders on file Feeding / Oral Care Status: Pt is independent Cognitive-Linguistic Status: alert, oriented to person, place, and time Follows Commands: Follows multi-step commands, does require repetition due to hearing deficits Positioning: Pt up to chair Oral / Laryngeal Mechanism Clinical Assessment: Jaw: Impaired mobility, denies pain today Trismus: SUNITA: 06/25/20: 32 mm 07/09/20: 33 mm Mild (30-34 mm) (Missael et al, 2006) Lateral Excursion: DNT (AAOMS Parameters of Care, 2007) Initial SUNITA: 33 mm Tissue Manipulation: Completed Stretch/Massage routine Passive exercise with ARK-J Level 2 Device Hold 10 secs / 3 reps, 3 sets 3x/day Reported pain at 2-3 / 10 (subsides with repetition) Active jaw ROM exercise: Active participation/education today with trial of gum for ROM Ending SUNITA: 34 mm ?? Dentition: WFL Last Dentist Visit: March 2020 Next Dentist Visit: Completed cleaning within past few weeks. Concerns with oral hygiene care/routine? No; using BSSR more often, has been brushing teeth consistently, using prescription toothpaste, prescription mouthwash Bolus Presentation(s) N/A Standardized Assessment(s) Previously administered 04/30/20: Tomas Dysphagia Inventory [MDADI], a validated and reliable self- administered questionnaire designed specifically for evaluating the impact of dysphagia on the QOL of patients with head and neck cancer (Ning et al 2001), was administered: Global Score: 3 Scores range from 1 (Extremely low functioning) to 5 (Extremely high functioning) Composite Score: 62.1 Scores range from 20 (Extremely low functioning) to 100 (High functioning) Education Addressed: - Continuation of thorough oral care, trial of gum (ACT, Freedent) for active ROM exercise - Reviewed *Gentle* ARK-J stretch/massage routine to perform prior to use of Orastretch device, withassociated precautions (ie if pain is above 5/10 during any aspect of routine, stop until able to consult with MD or CHRISTMAS BELL RINGER) - Risk Management Compensatory Techniques/Precautions: Slow Rate, Small Bites and Small Sips Upright position during meals and for at least 30 mins following Sensory enhancement (flavor, texture, temperature) as tolerated Excellent oral care Avoidance of aggressive jaw stretching unless approved by CHRISTMAS BELL RINGER, given risks of ORN Pt/spouse able to demonstrate comprehension of all recommendations. Assessment Ward Santamaria demonstrates continued oropharyngeal dysphagia and mild trismus (SUNITA at 33mm)with gradually reduced associated jaw pain at this time. Patient and spouse were provided with direct training in precautions for use of recently received Orastretch device; patient participated in motivational interview re: daily routine and ultimate goals of trismus therapy; patient participated in development of external strategies to trial over next few weeks to help with improving daily exerciseroutine/increasing self responsibility for trismus management / reduce carepartner burden - ie, set alarms on phone for reminders, prison goals written out and to be placed in view when doing exercises during tube feeding time(s). Diagnosis: Oropharyngeal dysphagia, trismus Recommendations: Instrumentation: Videofluoroscopic Swallow Study / Modified Barium Swallow Study [VFSS/MBSS] Diet: Solids as tolerated IDDSI Level 4/5 Pureed/Minced&Moist, Level 0 - thin liquids, may increase viscosity if overt s/sx aspiration are noted, encourage follow up with CHRISTMAS BELL RINGER in this case PO medications: as tolerated Refer to Risk Management as Outlined Referrals to Maximize Patient Outcomes: N/A Patient and spouse educated on results and recommendations, and verbalized understanding. Speech Therapy Goals: (To be met by discharge) Pt will tolerate least restrictive diet without evidence of dysphagia / aspiration. Pt / caregiver will be independent with aspiration precautions, diet modifications, and safe swallowing strategies. Pt will demonstrate effortful swallows with good execution Pt will maintain hydration / nutrition with optimal safety and efficiency. Pt will demonstrate comprehension of trismus management techniques, HEP, and methods for how to safely progress through program to reduce risks of ORN side effects Goal In Progress Further goals TBD pending VFSE/MBSS or FEES. Plan: Discussed subsequent visit for 07/30/20 to address direct trismus treatment planning and discussed plan for VFSE/MBSS on 07/16/20 with pretest for COVID through [facility]. Pt./family are in agreement with treatment plan. Please feel free to call me with any questions or concerns regarding Ward Santamaria's care. Gilda Jameson MA CCC-CHRISTMAS BELL RINGER Speech-Language Pathologist [email or web address] documented in this encounter Plan of Treatment Upcoming Encounters Date Type Specialty Care Team Description 10/21/2021 Infusion Hematology and Oncology 11/09/2021 Office Visit Hematology and Oncology Alhaji Ritchie MD [facility] DR ONCOLOGY DEPT. [place], [place] [address] (Jin carson) 11/09/2021 Infusion Hematology and Oncology 12/10/2021 Office Visit Dermatology Silas Walters MD [address] [place] [address] DERMATOLOGY [place], [place] [address] (Jin carson) 09/19/2039 Hospital Encounter Surgery Osman Barnett MD [facility] OTOLARYNGOLOGY Sharlene EPT. [place], [place] [address] (Wo rk) Scheduled Procedures Name [...] as of this encounter Visit Diagnoses Diagnosis Dysphagia, unspecified type Squamous cell carcinoma of ear, left Parotid mass Swelling, mass, or lump in head and neck documented in this encounter Care Teams Drill Press Operator For Metal Relationship Specialty Start Date End Date Tara Joya MD PCP - General Family Medicine 05/16/[address] [place] [address] documented as of this encounter
--- OUTSIDE RECORDS SUMMARY | 2021-10-21 07:58 | XMS_ITS | Encounter Summary ---
:1950 Author Organization [facility] [place] [address] Care Team Providers Name Role Phone Tara Joya MD Primary Care Provider [phone] Encounter Details Date Type Department Care Team Description 05/28/2020 Office Visit Radiation Oncology at Eleazar Galdamez Squamous cell [facility] carcinoma of [address] [phone] RADIATION ONCOLOGY [phone] [place] [id number] Social History Tobacco Use Types Packs/Day Years [...] - Inhaled Oxygen Concentration - - Weight 71.4 kg (157 lb 6.4 oz) 05/28/2020 1:09 PM EST Height - - Body Mass Index 22.91 05/28/2020 11:45 AM EST documented in this encounter Progress Notes Eleazar Galdamez MD - 05/28/2020 10:00 AM EST ON TREATMENT VISIT NOTE Ward Santamaria is a 69 y.o. 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 Adjuvant chemoradiotherapy Current treatment dose: 66 Gy in 33 fractions. Anticipated total dose: 66 Gy in 33 fractions. Concomitant Therapy: Y ONC BCA CHEMO (AMB) 04/14/2020 04/21/2020 04/28/2020 Day, Cycle Day 1, Cycle 1 Day 8, Cycle 1 Day 15, Cycle 1 CISplatin (Platinol) IV 40 mg/m2/dose 40 mg/m2/dose 40 mg/m2/dose ONC BCA CHEMO (AMB) 05/05/2020 05/12/2020 05/19/2020 Day, Cycle Day 22, Cycle 1 Day 29, Cycle 1 Day 36, Cycle 1 CISplatin (Platinol) IV 35 mg/m2/dose 35 mg/m2/dose 35 mg/m2/dose ONC BCA CHEMO (AMB) 05/26/2020 Day, Cycle Day 43, Cycle 1 CISplatin (Platinol) IV 35 mg/m2/dose Evaluation of Port Verification Films: PORT films have been reviewed, please see ARIA for details. Changes in medical condition Pain: denies oropharyngeal pain Secretions/Dryness: high level xerostomia, severe dysgeusia. Using BSSW. Swallowing Function: no issues excepting dryness Nutrition: minimal by mouth, just liquids. Limited by dysgeusia and nausea. G-tube: TF going well, stable redness associated with his feeding tube site Skin: no symptoms GI: -N/V: improved nausea this week marinol, zyprexa, compazine, ondansetron, MJ, lorazepam prn -Bowels: no issues Eye: improved since tarsorrhaphy Nutrition Assessment: Weight : 77.6 kg initial Change: 69.9 => 71.3 Objective: SKIN: moderate skin erythema left neck, with no erythema within 1 cm of eye, some desquamation underear remnant MUCOSA: minimal mucositis left buccal mucosa, very dry Eye: s/p tarsorrhaphy G-tube: erythema around site extending out a few centimeters, patchy. Stable Assessment: Moderate skin toxicity, tolerating. G tube, nausea improved. CTCAE TOXICITY GRADES (see below for mcneal): Site Grade Skin 2 Xerostomia 2 Pharyngeal Mucositis 1 Dysphagia 0 Hoarseness 0 TREATMENT RESPONSE: No change Plan: ?? Continue RT per prescription ?? Pain control: ?? OTC medications ?? Skin: Aquaphor cream prn, Mepilex ?? Mucositis: ?? Pain control: see above ?? Oral hygiene consisting of baking soda/salt rinse at least 8 times daily ?? Alimentation: college or university business manager following ?? Weight stable, all via G tube ?? G tube: s/p adjustment, doing well ?? N/V: medications as noted above, improved ?? Eye: s/p tarsorrhaphy ?? FU: to see me next week CTCAE v4.03 scales for reference Skin 0 1 2 3 4 No change from baseline Faint erythema or dry desquamation Moderate to brisk erythema; patchy moist desquamation mostly confined to skin folds & creases; moderate edema Moist desquamation in areas other than skin folds and creases; bleeding induced by minor trauma or abrasion Life threatening consequences; skin necrosis or ulceration of full thickness dermis; spontaneous bleeding; skin graft indicated Xerostomia 0 1 2 3 4 No change from baseline Symptomatic (dry or thick saliva) without significant dietary alteration Moderate sx: oral intake alterations (e.g. copious water, diet limited to purees or soft, moist foods) Inability to adequately aliment orally, TPN or PEG indicated NA Pharyngeal Mucositis: 0 1 2 3 4 No change from baseline Asymptomatic or mild symptoms; normal oral intake; mild pain but analgesia not indicated Moderate pain and analgesics indicated; altered oral intake; limiting instrumental ADLs Severe pain, unable to adequately aliment or hydrate orally; limiting self care ADLs Life threateningconsequences; urgent intervention indicated Dysphagia 0 1 2 3 4 No change from baseline Symptomatic, able to eat regular diet Symptomatic and altered eating/swallowing Severely altered eating/swallowing; tube feeds, TPN or hospitalization indicated Life threateningconsequences; urgent intervention indicated Hoarseness 0 1 2 3 4 No change from baseline Mild or intermittent voice change; fully understandable, self-resolves Moderate or persistent voice change; may require occasional repetition but understandable on telephone Severe voice change including predominantly whispered speech NA documented in this encounter Plan of Treatment Upcoming Encounters Date Type Specialty Care Team Description 10/21/2021 Infusion Hematology and Oncology 11/09/2021 Office Visit Hematology and Oncology Alhaji Ritchie MD [facility] DR ONCOLOGY DEPT. [place], [place] [address] (Wo rk) 11/09/2021 Infusion Hematology and Oncology 12/10/2021 Office Visit Dermatology Silas Walters MD [address] DERMATOLOGY [place], [place] [address] (Wo rk) 09/19/2039 Hospital Encounter Surgery Osman Barnett MD [facility] OTOLARYNGOLOGY D EPT. [place], [place] [address] (Wo rk) Scheduled Procedures Name [...] Visit Diagnoses Diagnosis Squamous cell carcinoma of chin Squamous cell carcinoma of skin of other and unspecified parts of face documented in this encounter Care Teams Case Assembler Relationship Specialty Start Date End Date Tara Joya MD PCP - General Family Medicine 05/16/[address] [place] [address] documented as of this encounter
--- OUTSIDE RECORDS SUMMARY | 2021-10-21 07:58 | XMS_ITS | Encounter Summary ---
:1950 Author Organization [facility] [place] [address] Care Team Providers Name Role Phone Tara Joya MD Primary Care Provider [phone] Encounter Details Date Type Department Care Team Description 07/30/2020 Office Visit Hematology/Oncology Margarita Fowler RD Squamous cell at [facility] [place] carcinoma of ear, left [address] [place], [place] HEMATOLOGY AND [phone] ONCOLOGY [phone] [place], [place] [address] Social History Tobacco Use Types [...] - Inhaled Oxygen Concentration - - Weight 73 kg (161 lb) 07/30/2020 11:00 AM EDT Height 172.7 cm (5' 8) 07/30/2020 11:00 AM EDT Body Mass Index 24.48 07/30/2020 11:00 AM EDT documented in this encounter Progress Notes Margarita Fowler RD - 07/30/2020 10:30 AM EDT [facility] Nutrition Assessment Progress Note Ward Santamaria Diagnosis: stage IV squamous cell carcinoma, left ear Assessment: Nutrition Screen 07/30/2020 Reason for assessment EN support Total MST Score - Functional Status 07/30/2020 Appetite Similar compared to usual intake Early satiety Absent Blood glucose levels - Nausea Grades None Vomiting Grades None Diarrhea Grades None Xerostomia Present Dysgeusia Present Abdominal pain - Patient s/p surgical resection and adjuvant chemoradiation (completed 05/28/20). Patient reports his only PO intake is sips of water and a small bowl of cream of wheat with sugar in the morning. His main obstacles to increasing PO intake are taste changes (even water tastes bad). He also has xerostomia. Patient reports he has abdominal pain after eating sometimes as well. He has tried small amounts of macaroni and cheese and sudanese food recently. He is willing to try fish, sausage, tongan fries, hamburger and strawberry milkshake this week. plans to take him to grocery store so that he can pick out some foods he is interested in. Per TRADE ECONOMIST, patient does not have any restrictions in terms of textures. Patient reports he is physically active daily, though no structured exercise. was not present for discussion today. Food History, Access and Intake 07/30/2020 Patient Reported Diet G-tube dependent Currently taking 4 cartons of Nutren 2.0 per day (down from 6/day) which provides 2000 kcal, 84 grams protein, 692 ml water. Feedings are administered via gravity to G-tube twice daily (2 cartons per feeding). He is flushing 60 ml before and after each feeding. TF was decreased from 6 to 4 cartons/day of Nutren 2.0 on 07/20/20. Nutrition Support 07/30/2020 Are you receiving enteral, parenteral or venting support? Yes Select support type Enteral G/J tube: when was it placed? 05/13/2020 How was it placed? Surgically Currently using tube? Yes How is nutrition being delivered? Collison Tube feeding formula and rate Nutren 2.0 Home care vendor JEAN PIERRE Flushing before/after feedings with: 60 mls Discussed continuing with flushes TID, although only doing two feedings/day now as he is only takingsips of water by mouth (no other beverages). Wt Readings from Last 3 Encounters: 07/30/20 73 kg (161 lb) 07/30/20 73 kg (161 lb) 07/16/20 73.9 kg (163 lb) BMI 24.48 Weight down 2 pounds from last week. PMH: CAD, HLD, bipolar, BPH, psoriasis, HepC, basal cell carcinoma, ANVIK, chemo- induced nausea, dysphagia, drug abuse, hypertriglyceridemia Medications: Glipizide (added recently), gabapentin, miralax, nystatin, tylenol, ibuprofen, abilify,toprol xl, lipitor, tricor, lamictal, elavil, aspirin Labs on 06/23/20: BG 302H, BUN 31H, Creat 1.2 H, Alb 3.6, Na 135, L, K 4.0, AST 15, ALT 26, Mg 1.8, H/H 9.7/27.8L Nutrition Problem: Inadequate intake related to H&N cancer as evidenced by majority of intake via G-tube. Estimated Kcal:??3000 kcal (40+ kcal/kg) goal for weight gain Estimated Protein needs:??122??gm/day??(1.8 g/kg) Estimated Fluid needs:??2.4+??L/day Intervention: ??? Try new foods: fish, sausage, Slovak fries, hamburger, strawberry milkshake ??? Continue with 4 cans of Nutren/day via G-tube. Can wean tube feeding further as PO intake improves ??? Cream of Wheat: try adding to it--cream? Peanut butter? Small frequent meals--have something small every 3 hours ??? Provided handouts for taste changes, 100 kcal additions Follow Up: Will see again in 1 week. Note: Please see Hematology/Oncology malnutrition flowsheet for complete RD assessment/documentation documented in this encounter Plan of Treatment Upcoming Encounters Date Type Specialty Care Team Description 10/21/2021 Infusion Hematology and Oncology 11/09/2021 Office Visit Hematology and Oncology Alhaji Ritchie MD [facility] DR ONCOLOGY DEPT. [place], [place] [address] (Wo rk) 11/09/2021 Infusion Hematology and Oncology 12/10/2021 Office Visit Dermatology Silas Walters MD [address] DERMATOLOGY [place], [place] [address] (Wo rk) 09/19/2039 Hospital Encounter Surgery Osman Barnett MD [facility] OTOLARYNGOLOGY Sharlene EPT. [place], [place] [address] (Wo rk) Scheduled Procedures Name [...] left documented in this encounter Care Teams Adjunct Art History Instructor Relationship Specialty Start Date End Date Tara Joya MD PCP - General Family Medicine 05/16/[address] [facility] [place] [address] documented as of this encounter
--- OUTSIDE RECORDS SUMMARY | 2021-10-21 07:58 | XMS_ITS | Encounter Summary ---
:1950 Author Organization [facility] [address] Care Team Providers Name Role Phone Tara Joya MD Primary Care Provider [phone] Encounter Details Date Type Department Care Team Description 06/04/2020 Telephone Hematology/Oncology at Caterina Lopez RD [address] [phone] Social History Tobacco Use Types Packs/Day Years Used Date Former Smoker Cigarettes 1 40 Quit: 01/09/20 03 Smokeless Tobacco: Never Used Alcohol Use Standard Drinks/Week Comments No 0 (1 standard drink = 0.6 oz pure alcoho l) Sex Assigned at Date Recorded Not on file documented as of this encounter Miscellaneous Notes Telephone Encounter - Caterina Aguirre RD - 06/04/2020 11:11 AM EDT Nutrition Follow Up - phone call Spoke with patient's , Nika, on the phone today. Patient's weight decreased significantly overthis past week despite using full amount of prescribed formula per day. Weight was 149 lbs today. Current regimen is: 6 cartons of Nutren 1.5 formula (2 cartons/feeding, TID) 2250 calories, 102 grams protein, and 1146 ml water Discussed trial of Nutren 2.0 for higher concentration of calories. Plan to gradually swap out each carton of Nutren 1.5 for the 2.0 formula as tolerated to increase caloric intake. He is otherwise taking only sips of mariana margo by mouth. will stop by tomorrow to oyster picker a couple cases of donatedformula to get started. If well tolerated, will update with DME. Today, she plans to give patient anextra feeding of Nutren 1.5. If tolerated, 6 cartons of Nutren 2.0 will provide 3000 calories, 126 grams protein, and 1038 ml water. Will follow up on Tuesday (06/09) to check in. Encouraged to call if concerns arise in the meantime. documented in this encounter Plan of Treatment Upcoming Encounters Date Type Specialty Care Team Description 10/21/2021 Infusion Hematology and Oncology 11/09/2021 Office Visit Hematology and Oncology Alhaji Ritchie MD [facility] DR ONCOLOGY DEPT. [place], [place] [address] (Jin rk) 11/09/2021 Infusion Hematology and Oncology 12/10/2021 Office Visit Dermatology Silas Walters MD [address] [place] [address] RD DERMATOLOGY [place], [place] [address] (Jin rk) 09/19/2039 Hospital Encounter Surgery Osman Barnett MD [facility] OTOLARYNGOLOGY D EPT. [place], [place] [address] (Jin carson) Scheduled Procedures Name [...] on filedocumented in this encounter Care Teams Airplane Dispatcher Relationship Specialty Start Date End Date Tara Joya MD PCP - General Family Medicine 05/16/[address] [place] [address] documented as of this encounter
--- OUTSIDE RECORDS SUMMARY | 2021-10-21 07:58 | XMS_ITS | Encounter Summary ---
:1950 Author Organization [facility] [place] [address] Care Team Providers Name Role Phone Tara Joya MD Primary Care Provider Encounter Details Date Type Department Care Team Description 06/12/2020 Notes Only [facility] [place] [phone] Social History Tobacco Use Types Packs/Day Years Used Date Former Smoker Cigarettes 1 40 Quit: 01/09/20 03 Smokeless Tobacco: Never Used Alcohol Use Standard Drinks/Week Comments No 0 (1 standard drink = 0.6 oz pure alcoho l) Sex Assigned at Date Recorded Not on file documented as of this encounter Progress Notes Caterina Aguirre RD - 06/12/2020 4:10 PM EDT FEEDING TUBE ORDERS ?? 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 ?? Ht/Weight: Wt Readings from Last 3 Encounters: 06/04/20 67.9 kg (149 lb 12.8 oz) 05/28/20 70 kg (154 lb 6.4 oz) 05/28/20 71.4 kg (157 lb 6.4 oz) ?? Estimated body mass index is 21.8 kg/m?? as calculated from the following: Height as of 05/28/20: 176.5 cm (5' 9.5). Weight as of 06/04/20: 67.9 kg (149 lb 12.8 oz). ? Estimated Kcal: 3000kcal (40+ kcal/kg) goal for weight gain Estimated Protein needs: 122 gm/day (1.8 g/kg) Estimated Fluid needs: 2.4+ L/day ?? Goal : 6 cans/day ?? Method of Feeding: [place] (CPT B4036) ?? Recommend 6 cans of Nutren 2.0 via G-tube/day to provide 3000 kcal, 126 gm of protein and 1038mLs offree water. ?? [place] feeding method at 2 cans per feeding over 60 minutes for 3 times/d. ?? Patient will need minimum of 1400 ml water as water flushes. ? Patient needs TF for > 90 days. Pt will need 11 refills. Pt needs pole, syringes, flexi-traks, and gravity bags. Pt DOES NOT need VNA services at this time. ?? Medical Supply Co. : [employer] Toll Free: Home Care Co.: [employer] [facility] [place] Toll Free: Doctor/MANAGER UTILITIES: (printed name) Signature: Dietitian: Caterina Aguirre RD Phone: [place] Cromwell documented in this encounter Plan of Treatment Upcoming Encounters Date Type Specialty Care Team Description 10/21/2021 Infusion Hematology and Oncology 11/09/2021 Office Visit Hematology and Oncology Alhaji Ritchie MD [facility] DR ONCOLOGY DEPT. [place], [place] [address] (Wo rk) 11/09/2021 Infusion Hematology and Oncology 12/10/2021 Office Visit Dermatology Silas Walters MD [address] DERMATOLOGY [place], [place] [address] (Wo rk) 09/19/2039 Hospital Encounter Surgery Osman Barnett MD [facility] OTOLARYNGOLOGY D EPT. [place], [place] [address] (Wo rk) Scheduled Procedures Name [...] on filedocumented in this encounter Care Teams Production Bow Maker Relationship Specialty Start Date End Date Tara Joya MD PCP - General Family Medicine 05/16/[address] [place] [address] documented as of this encounter
--- OUTSIDE RECORDS SUMMARY | 2021-10-21 07:58 | XMS_ITS | Encounter Summary ---
:1950 Author Organization [facility] [address] Care Team Providers Name Role Phone Tara Joya MD Primary Care Provider [phone] Reason for Visit Consultation (Routine) - Closed Specialty Diagnoses / Procedures Referred By Contact Refer red To Contact General Surgery Diagnoses Squamous cell carcinoma of ear, left Ashok Ritchie MD [facility] Gen Surgery [address] [place] [address] [place] [address] [place] [address] Fax: Referral ID Status Reason Start Date Expiration Date Visits V isits Requested Authorized [id number] Closed Consult, 09/15/2020 09/15/2021 1 1 Test & Treat Encounter Details Date Type Department Care Team Description 09/19/2020 Office Visit General Surgery at Craig Nassar MD Attention to G-tube [facility] [place] [address] [place] [address] [phone] (Wo rk) Social History Tobacco Use Types Packs/Day Years Used Date Former Smoker Cigarettes 1 40 Quit: 01/09/20 03 Smokeless Tobacco: Never Used Alcohol Use Standard Drinks/Week Comments No 0 (1 standard drink = 0.6 oz pure alcoho l) Sex Assigned at Date Recorded Not on file documented as of this encounter Progress Notes Craig Nassar MD - 09/19/2020 9:00 AM EDT HPI: This is a 69-year-old gentleman who underwent PEG placement on May 13, 2020. He has been recovering well and per his has been eating for several weeks. Denies any coughing or concerns for aspiration. Has been able to maintain his weight. Has not use the tube at all in recent weeks. Was evaluated by Dr. Landry and the ENT team on September 11 without any concerns. Presents today for discussion of PEG tube removal. Exam General: Thin gentleman in no distress. Somewhat hard of hearing. GI: Abdomen is soft and nontender. There is some erythema and skin irritation inferior to the tube for roughly 1-1/2 cm. The tube was removed, please see Valerie Ny's note for full details. Assessment and plan: 69-year-old gentleman recovering from recent ENT surgery who has been able to maintain his own oral intake for weeks now. As he no longer needs the PEG tube it was removed in the clinic without complication. He was provided information on signs and symptoms to be watching for. No further scheduled follow-up is required however we are happy to see him back on a as needed basis. documented in this encounter Plan of Treatment Upcoming Encounters Date Type Specialty Care Team Description 10/21/2021 Infusion Hematology and Oncology 11/09/2021 Office Visit Hematology and Oncology Alhaji Ritchie MD [facility] DR ONCOLOGY DEPT. [place], [place] [address] (Jin carson) 11/09/2021 Infusion Hematology and Oncology 12/10/2021 Office Visit Dermatology Silas Walters MD [address] [place] [address] DERMATOLOGY [place], [place] [address] (Jin carson) 09/19/2039 Hospital Encounter Surgery Osman Barnett MD [facility] OTOLARYNGOLOGMelvin D EPT. [place], [place] [address] (Jin carson) Scheduled Procedures Name [...] of skin Open wound of neck, sequela Scheduled Referrals Name Type Priority Associated Diagnoses Order S chedule Referral to Outpatient Referral Routine Squamous cell Ordered : General Surgery carcinoma of ear, 021 left documented as of this encounter Visit Diagnoses Diagnosis Attention to G-tube Attention to gastrostomy documented in this encounter Care Teams Strap Machine Operator Relationship Specialty Start Date End Date Tara Joya MD PCP - General Family Medicine 05/16/[address] [place] [address] documented as of this encounter
--- OUTSIDE RECORDS SUMMARY | 2021-10-21 07:58 | XMS_ITS | Encounter Summary ---
:1950 Author Organization [facility] [place] [address] Care Team Providers Name Role Phone Tara Joya MD Primary Care Provider [phone] Encounter Details Date Type Department Care Team Description 08/27/2020 Office Visit Hematology/Oncology at Gilda Jameson, Tio arotid mass; [facility] BOARD SETTER Dysphagia, unspecified type [address] [place] [phone] Social History Tobacco Use Types Packs/Day Years Used Date Former Smoker Cigarettes 1 40 Quit: 01/09/20 03 Smokeless Tobacco: Never Used Alcohol Use Standard Drinks/Week Comments No 0 (1 standard drink = 0.6 oz pure alcoho l) Sex Assigned at Date Recorded Not on file documented as of this encounter Progress Notes Gilda Jameson SLP - 08/27/2020 11:30 AM EDTSummary: BOARD SETTER Treatment Note Speech Language Pathology Treatment Note Patient Profile: Ward Santamaria is a 69 y.o. 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 Chemo/RT completed 05/28/20. VFSE/MBSS completed 07/16 at [facility]. HPI: Patient Active Problem List Diagnosis Code [...] clinic today for follow up visit to review dysphagia management, trismus monitoring and continued education. Spouse Nika not present today, patient reports she has returned to work. Reported IDDSI Level 5/6 (minced&moist, some soft & bite sized) and Transitional Solids - subjective oropharyngeal swallow tolerance: reports globus with eggs; able to tolerate cheerios/cream of wheat; hamburger meat cut in fourths including with the bun (takes 3-4 bites to masticate 1/4 hamburger); tried waffles but these are difficult, turn into being too sticky/chewy; occasionally willfollow with liquid wash but reports he usually forget to do this. Taste is continuing to improve at this time. Also reports he is able to close his R eye better now. Objective: Pain: 0/10 Respiratory Status: Room air [...] SUNITA: 06/25/20: 32 mm 07/09/20: 33 mm 07/30/20: 31 mm 08/13/20: 33 mm 08/27/20: 30 mm Mild (30-34 mm) (Missael et al, 2006) Initial SUNITA: 30 mm Tissue Manipulation: Completed Stretch/Massage routine Passive exercise with ARK-J Level 2 Device Hold 30 secs / 5 reps, 2 sets 3x/day Reported pain at 2-3 / 10 (subsides with repetition) Active jaw ROM exercise: Discussed continued use of gum for ROM as tolerated (and/or use of Chewy Tube) Ending SUNITA: DNT ?? Dentition: Recent concerns with reported 'cracked tooth' on bottom L molar; reports most recent Dental visit was yesterday and Dentist is recommending pulling this tooth; also has one other cavity to fill. Last Dentist Visit: 08/26/20 Next Dentist Visit: 09/08/20 Concerns with oral hygiene care/routine? No, reviewed recommendation for soft bristled electric toothbrush given notable oral residue, xerostomia; reports he has been brushing teeth about 2x/day beforebreakfast and bed, using prescription toothpaste, prescription mouthwash; also has waterpick available per spouse Bolus Presentation(s) N/A Standardized Assessment(s) Previously administered [...] (Extremely low functioning) to 100 (High functioning) The Heber Trismus Questionnaire [GTQ] is a multidimensional, self- administered, trismus-specific questionnaire used to measure trismus and its treatment outcomes when appropriate. Items 1-23: General Issues 37 / 115 mild (24-46) Items 16-20: Facial Pain in Past Week 8 / 25 Scale of 5 (no facial pain) to 25 (very severe facial pain) mild (6-10) Location: L jaw and joint Items 21-23: Mouth Opening Ability 3 / 15 Scale of 3 (no limitation) to 15 (very severe limitation) None (3) Education Addressed: - Continuation of thorough oral care, active ROM exercise (on hold until follow up Dentist visit 09/08/20) -Discussed following during motivational interview to enhance participation/motivation with HEP: Access to [employer] portal with outlined exercises for review at home; patient able to demonstrate 80-90% accuracy during visit with all of the following exercise: - Effortful Swallow - Anneliese Maneuver - Tongue Retraction - Reveiwed VFSS/MBSS outcomes and use of effortful swallow x1-2 after every bite of solid food (effort level at 7-8/10) and/or liquid wash to address vallecular residue and function as swallowing exercise -Continued monitoring for overt s/sx aspiration - Reviewed ARK-J stretch/massage routine to perform prior to use of Orastretch device (on hold currently given cracked tooth, will plan to re-address once patient has Dental visit), with associated precautions (ie if pain is above 5/10 during any aspect of routine, stop until able to consult with MD or BOARD SETTER) - Risk Management Compensatory Techniques/Precautions: Slow Rate, Small Bites and Small Sips Alternate liquids/solids Upright position during meals and for at least 30 mins following Sensory enhancement (flavor, texture, temperature) as tolerated Excellent oral care Avoidance of aggressive jaw stretching unless approved by BOARD SETTER, given risks of ORN Pt able to demonstrate comprehension of all recommendations. Assessment Ward Santamaria demonstrates continued oropharyngeal dysphagia and mild trismus (SUNITA at 30mm)with gradually reduced associated jaw pain at this time; reduced po intake is mainly from dysguesia at this time, but oropharyngeal swallowing is more recently reported to be an issue per spouse (VFSE/MBSS outcomes appear adequate for full return to oral diet as tolerated, complicated by continued trismus and mild pharyngeal atrophy). Of note from VFSE/MBSS was a L sided deviation at C3-C4 in the AP view; unclear if this is patient's baseline or if this is new; Radiologist suggested Endoscopy; patient reports he has not had this done to date but does [facility]. Patient participated in further motivational interview re: daily routine and ultimate goals of trismus and dysphagia therapy (ie, returning to full oral diet ,less reliance on tube feeding for nutritional support). Spouse Nika continues to provide much needed support/encouragement for patient to carryover recommendations at home. Diagnosis: Oropharyngeal dysphagia, trismus Recommendations: Diet: Solids as tolerated IDDSI Level 6/7 as tolerated, Level 0 - thin liquids, may increase viscosity if overt s/sx aspiration are noted, encourage follow up with BOARD SETTER in this case PO medications: as tolerated [...] of ORN side effects Goal In Progress Plan: Discussed subsequent visit for 09/17/20. Pt has follow up with Rad Onc and ENT on 09/11. Pt./family are in agreement with treatment plan. Please feel free to call me with any questions or concerns regarding Ward Santamaria's care. Gilda Jameson MA CCC-BOARD SETTER Speech-Language Pathologist [email or web address] documented in this encounter Plan of Treatment Upcoming Encounters Date Type Specialty Care Team Description 10/21/2021 Infusion Hematology and Oncology 11/09/2021 Office Visit Hematology and Oncology Alhaji Ritchie MD [facility] ONCOLOGY DEPT. [place], [place] [address] (Jin carson) 11/09/2021 Infusion Hematology and Oncology 12/10/2021 Office Visit Dermatology Silas Walters MD [address] [place] [address] DERMATOLOGY [place], [place] [address] (Wo rk) 09/19/2039 Hospital Encounter Surgery Osman Barnett MD [facility] OTOLARYNGOLOGY D EPT. [place], [place] [address] (Jin carson) Scheduled Procedures Name [...] as of this encounter Visit Diagnoses Diagnosis Parotid mass Swelling, mass, or lump in head and neck Dysphagia, unspecified type documented in this encounter Care Teams Legal Researcher Relationship Specialty Start Date End Date Tara Joya MD PCP - General Family Medicine 05/16/[address] [place] [address] documented as of this encounter
--- OUTSIDE RECORDS SUMMARY | 2021-10-21 07:58 | XMS_ITS | Encounter Summary ---
:1950 Author Organization [facility] [place] [address] Care Team Providers Name Role Phone Tara Joya MD Primary Care Provider [phone] Encounter Details Date Type Department Care Team Description 06/25/2020 Office Visit Radiation Oncology at Eleazar Galdamez, Squamous cell [facility] carcinoma of ear, left [address] [place] [address] RADIATION ONCOLOGY [phone] [place] [address] Social History Tobacco Use Types Packs/Day Years Used Date Former Smoker Cigarettes 1 40 Quit: 01/09/20 03 Smokeless Tobacco: Never Used Alcohol Use Standard Drinks/Week Comments No 0 (1 standard drink = 0.6 oz pure alcoho l) Sex Assigned at Date Recorded Not on file documented as of this encounter Last Filed Vital Signs Vital Sign Reading Time Taken Comments Blood Pressure 139/77 06/25/2020 11:15 re took after r esting AM EDT for 20 minutes Pulse 107 06/25/2020 10:56 AM EDT Temperature 36.7 ??C (98.1 ??F) 06/25/2020 10:56 AM EDT Respiratory Rate 24 06/25/2020 10:56 AM EDT Oxygen Saturation 100% 06/25/2020 10:56 AM EDT Inhaled Oxygen - - Concentration Weight 72.1 kg (159 lb) 06/25/2020 10:56 AM EDT Height 175.3 cm (5' 9) 06/25/2020 10:56 AM EDT Body Mass Index 23.48 06/25/2020 10:56 AM EDT documented in this encounter Progress Notes Eleazar Galdamez MD - 06/25/2020 11:00 AM EDT FOLLOW UP VISIT NOTE Ward Santamaria is a 69 y.o. 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 Adjuvant chemoradiotherapy completed 05/28/20. Changes in medical condition General: no issue this week Pain: denies oropharyngeal pain Secretions/Dryness: moderate xerostomia, severe dysgeusia. Using BSSW. Swallowing Function: no issues excepting dryness Nutrition: small volume by mouth, TF going well G-tube: TF going well, stable redness associated with his feeding tube site. Skin: no symptoms GI: -N/V: resolved -Bowels: no issues Eye: stable drooping and irritation, stitches appear to have given out. Increased epiphora. Nutrition Assessment: Weight : 77.6 kg initial Change: 67.3 => 72.1 Objective: SKIN: no erythema, mild dryness MUCOSA: no mucositis, very dry Eye: s/p tarsorrhaphy, but stable drooping of eye, increased epiphora G-tube: erythema around site under bumper. Stable Assessment: Toxicity improving, overall doing well CTCAE TOXICITY GRADES (see below for mcneal): Site Grade Skin 0 Xerostomia 2 Pharyngeal Mucositis 0 Dysphagia 0 Hoarseness 0 TREATMENT RESPONSE: No change Plan: ?? Pain control: ?? OTC medications ?? Skin: Aquaphor cream prn ?? Mucositis: ?? Pain control: see above ?? Oral hygiene consisting of baking soda/salt rinse at least 8 times daily ?? Alimentation: police judge following ?? Weight stable, all via G tube. Increasing oral intake ?? G tube: s/p adjustment, doing well ?? N/V: resolved ?? Eye: s/p tarsorrhaphy. Will reach out to Dr. Barnett to see if repeat TR indicated. ?? FU: three weeks CTCAE v4.03 scales for reference Skin 0 [...] Oncology Alhaji Ritchie MD [facility] DR ONCOLOGY DEPT. [place], [place] [address] (Jin carson) 11/09/2021 Infusion Hematology and Oncology 12/10/2021 Office Visit Dermatology Silas Walters MD [address] [place] [address] DERMATOLOGY [place], [place] [address] (Jin carson) 09/19/2039 Hospital Encounter Surgery Paydarfar, Osman A, MD [facility] OTOLARYNGOLOGMelvin Su EPT. [place], [place] [address] (Wo rk) Scheduled Procedures Name [...] left documented in this encounter Care Teams Building Tech Relationship Specialty Start Date End Date Tara Joya MD PCP - General Family Medicine 05/16/[address] [place] [address] documented as of this encounter
--- OUTSIDE RECORDS SUMMARY | 2021-10-21 07:58 | XMS_ITS | Encounter Summary ---
:1950 Author Organization [facility] [place] [address] Care Team Providers Name Role Phone Tara Joya MD Primary Care Provider [phone] Encounter Details Date Type Department Care Team Description 06/12/2020 Telephone Hematology/Oncology at [address] [place] [phone] Social History Tobacco Use Types Packs/Day Years Used Date Former Smoker Cigarettes 1 40 Quit: 01/09/20 03 Smokeless Tobacco: Never Used Alcohol Use Standard Drinks/Week Comments No 0 (1 standard drink = 0.6 oz pure alcoho l) Sex Assigned at Date Recorded Not on file documented as of this encounter Miscellaneous Notes Telephone Encounter - Caterina Aguirre RD - 06/12/2020 3:21 PM EDT Nutrition Phone Call Spoke with , Nika, who who reports patient's recent PCP visit indicated current A1c of 8.2. Recent labs at PCP also showed elevated triglycerides. Spoke with patient's PCP on the phone today to discuss patient. PCP does not feel any changes are needed to his nutrition regimen at this time as goal is to prevent further weight loss and promote healing with adequate calories and protein. PCP plansto follow up with patient in 1 month to recheck labs and adjust medications as needed. Patient is currently on Nutren 2.0 formula, taking 2 cartons per feeding 3x per day. Discussed with to trial adjusting regimen to 1.5 cartons, 4 times per day to decrease total carbohydrate content per feeding. notes that she has increased his water flushes to 600 ml 3x per day. Will follow up via phone next week to check in. documented in this encounter Plan of Treatment Upcoming Encounters Date Type Specialty Care Team Description 10/21/2021 Infusion Hematology and Oncology 11/09/2021 Office Visit Hematology and Oncology Alhaji Ritchie MD [facility] DR ONCOLOGY DEPT. [place], [place] [address] (Wo rk) 11/09/2021 Infusion Hematology and Oncology 12/10/2021 Office Visit Dermatology Silas Walters MD [address] [place] [address] RD DERMATOLOGY [place], [place] [address] (Wo rk) 09/19/2039 Hospital Encounter Surgery Osman Barnett MD [facility] OTOLARYNGOLOGY D EPT. [place], [place] [address] (Wo rk) Scheduled Procedures Name [...] on filedocumented in this encounter Care Teams Online Marketing Specialist Relationship Specialty Start Date End Date Tara Joya MD PCP - General Family Medicine 05/16/[address] [place] [address] documented as of this encounter
--- OUTSIDE RECORDS SUMMARY | 2021-10-21 07:58 | XMS_ITS | Encounter Summary ---
:1950 Author Organization [facility] [place] [address] Care Team Providers Name Role Phone Tara Joya MD Primary Care Provider [phone] Encounter Details Date Type Department Care Team Description 08/13/2020 Office Visit Hematology/Oncology Margarita Fowler RD Squamous cell at [facility] carcinoma of ear, left [address] [place], [place] HEMATOLOGY AND [id number] ONCOLOGY [phone] [place], [place] [address] Social History Tobacco Use Types [...] - Inhaled Oxygen Concentration - - Weight 73.7 kg (162 lb 6.4 oz) 08/15/2020 8:00 AM EDT Height 175.3 cm (5' 9) 08/15/2020 8:00 AM EDT Body Mass Index 23.98 08/15/2020 8:00 AM EDT documented in this encounter Progress Notes Margarita Fowler RD - 08/13/2020 2:00 PM EDT [facility] Nutrition Assessment Progress Note Ward Santamaria Diagnosis: stage IV squamous cell carcinoma, left ear Assessment: Nutrition Screen 08/15/2020 Reason for assessment EN support Total MST Score - Functional Status 08/15/2020 Appetite Reduced compared to usual intake Early satiety Absent Blood glucose levels Hypergylcemic Nausea Grades - Vomiting Grades - Diarrhea Grades - Xerostomia Present Dysgeusia Present Abdominal pain Absent Usual Intake: Breakfast: Sausage vidal with scrambled egg, cream of wheat and cheerios with milk Lunch: Small wrap with cheese and lunch meat Dinner: Small amount of lasagna or chicken sausage, brown rice, peppers Snacks: 1/2 cup ice cream Beverages: Sips on Diet Pepsi ONS: None Patient s/p surgical resection and adjuvant chemoradiation (completed 05/28/20). He has increased hisPO intake over the past couple of weeks and reduced his tube feeding by 1/3 on 07/20/20. He is no longer doing a morning feeding and does well with eating a decent breakfast. His feels discouraged with how much she has to encourage him to eat. The main barrier at this point is taste changes (even diet Pepsi tastes bad!) and still needing mechanical soft foods. is hoping he can cut out his midday tube feeding next, but feels more comfortable with starting by reducing this feeding from 2 cartons to 1 carton to start. Food History, Access and Intake 08/15/2020 Patient Reported Diet G-tube dependent Currently taking 4 cartons of Nutren 2.0 per day (down from 6/day) which provides 2000 kcal, 84 grams protein, 692 ml water. Feedings are administered via gravity to G-tube twice daily (2 cartons per feeding) at midday and evening. He is flushing 60 ml before and after each feeding plus approximately2 liters water. Patient is eating some solid foods before his tube feedings. ?? TF was decreased from 6 to 4 cartons/day of Nutren 2.0 on 07/20/20. Nutrition Support 08/15/2020 Are you receiving enteral, parenteral or venting support? Yes Select support type Enteral G/J tube: when was it placed? 05/13/2020 How was it placed? Surgically Currently using tube? Yes How is nutrition being delivered? 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 Wt Readings from Last 3 Encounters: 08/15/20 73.7 kg (162 lb 6.4 oz) 07/30/20 73 kg (161 lb) 07/30/20 73 kg (161 lb) BMI 23.98 PMH: CAD, HLD, bipolar, BPH, psoriasis, HepC, basal cell carcinoma, [place], chemo- induced nausea, dysphagia, drug abuse, hypertriglyceridemia ?? Medications: Glipizide (added recently), gabapentin, miralax, abilify, toprol xl, lipitor, tricor, lamictal, elavil, aspirin No updated labs Nutrition Diagnosis 08/15/2020 Problems Inadequate oral intake Etiology (related to) Daily H/N radiation therapy Signs and Symptoms > 5 % uinintentional weight loss in 1 month (Severe) Improving--weight stable x 2 months Intervention: * Agreed with plan to cut back to 3 cartons Nutren 2.0 daily (1 carton mid day and 2 cartons in evening). This provides 1500 kcal, 63 grams protein, 519 ml water. Patient is putting additional 2240 ml water through G-tube. * Continue to increase PO intake, especially at breakfast and lunch. Discussed including protein andadding fat (oil, salad dressing, ortega, etc.) to foods to increase caloric intake by mouth. * Textures per INSIDE SALES ASSISTANT : Solids as tolerated IDDSI Level 6/7 as tolerated, Level 0 - thin liquids. Follow Up: Will see patient after INSIDE SALES ASSISTANT on 08/27. Note: Please see Hematology/Oncology malnutrition flowsheet for complete RD assessment/documentation documented in this encounter Plan of Treatment Upcoming Encounters Date Type Specialty Care Team Description 10/21/2021 Infusion Hematology and Oncology 11/09/2021 Office Visit Hematology and Oncology Alhaji Ritchie MD [facility] DR ONCOLOGY DEPT. [place], [place] [address] (Wo rk) 11/09/2021 Infusion Hematology and Oncology 12/10/2021 Office Visit Dermatology Silas Walters MD [address] DERMATOLOGY [place], [place] [address] (Wo rk) 09/19/2039 Hospital Encounter Surgery Osman Barnett MD [facility] OTOLARYNGOLOGY Sharlene EPT. [place], [place] [address] (Wo rk) Scheduled Procedures Name [...] left documented in this encounter Care Teams Professional Programmer Analyst Relationship Specialty Start Date End Date Tara Joya MD PCP - General Family Medicine 05/16/[address] [facility] [place] [address] documented as of this encounter
--- OUTSIDE RECORDS SUMMARY | 2021-10-21 07:58 | XMS_ITS | Encounter Summary ---
:1950 Author Organization [place] [address] Care Team Providers Name Role Phone Tara Joya MD Primary Care Provider [phone] Reason for Visit Reason Comments Other Hydration IV Medication Zofran Treatment/Therapy Plan Authorization (Routine) - Closed Specialty Diagnoses / Procedures Referred By Contact Refer red To Contact Diagnoses Squamous cell carcinoma of ear, left Chemotherapy-induced nausea Ashok Ritchie MD [facility] Hem Onc Infusion [address] [place] [phone] Fax: Referral ID Status Reason Start Date Expiration Date Visits Requ ested Visits Authorized [id number] Closed 03/10/2020 03/10/2021 99 99 Encounter Details Date Type Department Care Team Description 05/28/2020 Infusion Hematology Oncology at [facility] uamous cell carcinoma of ear, left; [facility] Chemotherapy-induced nausea [address] [place] [phone] Social History Tobacco Use Types [...] Sign Reading Time Taken Comments Blood Pressure 136/73 05/28/2020 11:45 AM EST Pulse 90 05/28/2020 11:45 AM EST Temperature 36.7 ??C (98 ??F) 05/28/2020 11:45 AM EST Respiratory Rate 20 05/28/2020 11:45 AM EST Oxygen Saturation 100% 05/28/2020 11:45 AM EST Inhaled Oxygen Concentration - - Weight 70 kg (154 lb 6.4 oz) 05/28/2020 11:45 AM EST Height 176.5 cm (5' 9.5) 05/28/2020 11:45 AM EST Body Mass Index 22.47 05/28/2020 11:45 AM EST documented in this encounter Progress Notes Eboni Paz RN - 05/28/2020 10:30 AM EST INFUSION THERAPY ADMINISTRATION NOTES DIAGNOSIS: Squamous cell cancer of the left ear REASON FOR VISIT: Hydration & Antiemetics SUBJECTIVE Ward has no complaints to offer today. OBJECTIVE Ward appears in good spirits. IV ACCESS: Mediport REACTIONS (DESCRIPTION, TIME, INTERVENTION AND EFFECTIVENESS) none ASSESSMENT Ward was awake, alert and tolerated treatment well. He received 500 ml supplemental feeding via his G-tube. PLAN Return to clinic per routine. documented in this encounter Plan of Treatment Upcoming Encounters Date Type Specialty Care Team Description 10/21/2021 Infusion Hematology and Oncology 11/09/2021 Office Visit Hematology and Oncology Alhaji Ritchie MD [facility] DR ONCOLOGY DEPT. [place], [place] [address] (Jin carson) 11/09/2021 Infusion Hematology and Oncology 12/10/2021 Office Visit Dermatology Silas Walters MD [address] [facility] DERMATOLOGY [place], [place] [address] (Jin carson) 09/19/2039 Hospital Encounter Surgery Osman Barnett MD [facility] OTOLARYNGOLOGY D EPT. [place], [place] [address] (Jin carson) Scheduled Procedures Name [...] Diagnosis Squamous cell carcinoma of ear, left Chemotherapy-induced nausea Nausea alone documented in this encounter Administered Medications Inactive Administered Medications - up to 3 most recent administrations Medication Order MAR Action Action Date Dose Rate Site heparin (pf) (porcine) (100 Given 05/28/2020 12:54 PM EST 500 Un its units/mL) flush 5 mL syringe 500 Units 500 Units, Intravenous, ONCE PRN, Starting on Tue05/28/20 at 1142, Until Tue05/28/20 at 1458, Line Care, Refer to Intravenous (IV) Procedure: Accessing Implanted Vascular Access Devices (034) procedure and/or Intravenous (IV) Job Aid: Adult Flushing & Catheter Care (5752) job aid for additional information regarding guidelines and administration., Routine LORazepam (Ativan) tablet 0.5 mg Given 05/28/2020 11:59 AM EST 0.5 mg 0.5 mg, Oral, ONCE PRN, 1 dose, Starting on Tue05/28/20 at 1142, Until Tue05/28/20 at 1159, Nausea, Routine ondansetron (Zofran) 16 mg in New Bag 05/28/2020 12:05 PM EST 16 m g 232 mL/hr sodium chloride 0.9% 58 mL infusion 16 mg 16 mg, Intravenous, ONCE, 1 dose, On Tue05/28/20 at 1200, Administer over 15 Minutes sodium chloride 0.9 % (flush) flush 5-20 mL Given 05/28/2020 12:54 PM EST 20 mLs 5-20 mL, Intravenous, EVERY 1 MIN PRN, Starting on Tue05/28/20 at 1142, Until Tue05/28/20 at 1458, Line Care, Flush pertains to all indwelling lines. Flush per protocol found in the job aid using the link provided on this medication record. Refer to Intravenous (IV) Job Aid: Adult Flushing & Catheter Care (6271) job aid for additional information regarding guidelines and administration., Routine sodium chloride 0.9% infusion New Bag 05/28/2020 11:57 AM EST 1,000 mLs 1000 mL/hr 1,000 mL, at 1,000 mL/hr, Intravenous, CONTINUOUS, Starting on Tue05/28/20 at 1200, Until Tue05/28/20 at 1259 documented in this encounter Care Teams Heel Seat Trimmer Relationship Specialty Start Date End Date Taar Joya MD PCP - General Family Medicine 05/16/[address] [place] [address] documented as of this encounter
--- OUTSIDE RECORDS SUMMARY | 2021-10-21 07:58 | XMS_ITS | Encounter Summary ---
:1950 Author Organization [facility] [place] [address] Care Team Providers Name Role Phone Tara Joya MD Primary Care Provider Encounter Details Date Type Department Care Team Description 08/13/2020 Office Visit Hematology/Oncology at [facility] D ysphagia, unspecified type; [facility] [employer] [address] [phone] Social History Tobacco Use Types Packs/Day Years Used Date Former Smoker Cigarettes 1 40 Quit: 01/09/20 03 Smokeless Tobacco: Never Used Alcohol Use Standard Drinks/Week Comments No 0 (1 standard drink = 0.6 oz pure alcoho l) Sex Assigned at Date Recorded Not on file documented as of this encounter Miscellaneous Notes Treatment - Therapy - [facility] SLP - 08/13/2020 1:00 PM EDTSummary: [employer] Treatment Note Speech Language Pathology Treatment Note Patient Profile: Ward Santamaria is a 69 y.o. 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 Chemo/RT completed 05/28/20. VFSE/MBSS completed 07/16 at [facility]. HPI: Patient Active Problem List Diagnosis Code [...] ??? Chemotherapy-induced nausea R11.0, T45.1X5A Subjective: Ward Gonzalez Hina seen in clinic today for follow up visit to review dysphagia management and trismus monitoring; spouse Nika also present for continued education. Patient reports he is tolerating IDDSI Level 4/5/6 solids (pureed, minced&moist, some soft &bite sized); however continues to be significantly inhibited by reduced taste at this time. Reported IDDSI Level 5/6 Transitional Solids: Cheerios; has tried breakfast sausage (with small bitsof peppers/rice); scrambled eggs; turkey/ortega/lettuce wraps (small); strawberry ice cream; salmon vidal;soft latvian fries/ bite or two of Whopper burger; had some lasagna but difficulties with acidity of tomato sauce R eye 'changes' per spouse within past week (patient does not report any changes, but spouse does note that R eye appears to be squinted at times), concerned that he is regressing. Objective: Pain: 0/10 Respiratory Status: Room air [...] pain today Trismus: SUNITA: 06/25/20: 32 mm 4/21/21: 33 mm 07/30/20: 31 mm 08/13/20: 33 mm Mild (30-34 mm) (Missael et al, 2006) Initial SUNITA:DNT Tissue Manipulation: Completed Stretch/Massage routine Passive exercise with ARK-J Level 2 Device Hold 10 secs / 3 reps, 3 sets 3x/day Reported pain at 2-3 / 10 (subsides with repetition) Active jaw ROM exercise: Discussed continued use of gum for ROM Ending SUNITA: DNT ?? Dentition: Recent concerns with reported 'cracked tooth' on bottom L molar Last Dentist Visit: March 2020 Next Dentist Visit: Reports plan to schedule visit sooner, within 2-3 weeks Concerns with oral hygiene care/routine? Yes, reviewed recommendation for soft bristled electric toothbrush given notable oral residue after breakfast meal, xerostomia; reports he has been brushing teeth about 2x/day before breakfast and bed, using prescription toothpaste, prescription mouthwash; alsohas waterpick available per spouse Bolus Presentation(s) N/A Standardized Assessment(s) Previously administered 04/30/20: MD Marin Dysphagia Inventory [MDADI], a validated and reliable [...] of thorough oral care, active ROM exercise (*reviewed Chewy Tubes which are availableonline), importance of continuing to try foods/flavors -Discussed following during motivational interview to enhance participation/motivation with HEP: Freedent and using pre-masticated gum to still practice active ROM as tolerated Use of visual / auditory cues to enhance routine at home (playing CD vs watching TV/getting distracted and not doing exercises) Provided patient/spouse with access to [employer] portal with outlined exercises for review at home - Reveiwed VFSS/MBSS outcomes and use of effortful swallow x1-2 after every bite of solid food (effort level at 7-8/10) to address vallecular residue and function as swallowing exercise, followed by thin liquid wash and effortful swallow -Continued monitoring for overt s/sx aspiration with mixed consistencies (ie pills in ice cream in evening, if overt s/sx are noted, switch to pills in more viscous texture, such as pudding/oatmeal etc, and follow with thin liquid wash) - Reviewed ARK-J stretch/massage routine to perform prior to use of Orastretch device (on hold currently given cracked tooth, will plan to re-address once patient has Dental visit), with associated precautions (ie if pain is above 5/10 during any aspect of routine, stop until able to consult with MD or [employer]) - Risk Management Compensatory Techniques/Precautions: Slow Rate, Small Bites and Small Sips Alternate liquids/solids Upright position during meals and for at least 30 mins following Sensory enhancement (flavor, texture, temperature) as tolerated Excellent oral care Avoidance of aggressive jaw stretching unless approved by [employer], given risks of ORN Pt/spouse able to [...] by continued trismus and mild pharyngeal atrophy). Patient participated in further motivational interview re: [...] aspiration are noted, encourage follow up with [employer] in this case PO medications: as tolerated [...] In Progress Plan: Discussed subsequent visit for 08/27/20. Pt./family are in agreement with treatment plan. Please feel free to call me with any questions or concerns regarding Ward Santamaria's care. Gilda Jameson MA CCC-[employer] Speech-Language Pathologist [email or web address] documented in this encounter Plan of Treatment Upcoming Encounters Date Type Specialty Care Team Description 10/21/2021 Infusion Hematology and Oncology 11/09/2021 Office Visit Hematology and Oncology Alhaji Ritchie MD [facility] DR ONCOLOGY DEPT. [place], [place] [address] (Wo rk) 11/09/2021 Infusion Hematology and Oncology 12/10/2021 Office Visit Dermatology Silas Walters MD [address] [place] [address] DERMATOLOGY [place], [place] [address] (Wo rk) 09/19/2039 Hospital Encounter Surgery Osman Barnett MD [facility] OTOLARYNGOLOGY D EPT. [place], [place] [address] (Wo rk) Scheduled Procedures Name [...] encounter Visit Diagnoses Diagnosis Dysphagia, unspecified type Parotid mass Swelling, mass, or lump in head and neck documented in this encounter Care Teams District Superintendent Relationship Specialty Start Date End Date Tara Joya MD PCP - General Family Medicine 05/16/[address] [place] [address] documented as of this encounter
--- OUTSIDE RECORDS SUMMARY | 2021-10-21 07:58 | XMS_ITS | Encounter Summary ---
:1950 Author Organization [facility] [place] [address] Care Team Providers Name Role Phone Tara Joya MD Primary Care Provider [phone] Encounter Details Date Type Department Care Team Description 06/25/2020 Office Visit Hematology/Oncology at [facility], Tio arotid mass; [facility] [employer] Dysphagia, unspecified type [address] [place] [phone] Social History Tobacco Use Types Packs/Day Years Used Date Former Smoker Cigarettes 1 40 Quit: 01/09/20 03 Smokeless Tobacco: Never Used Alcohol Use Standard Drinks/Week Comments No 0 (1 standard drink = 0.6 oz pure alcoho l) Sex Assigned at Date Recorded Not on file documented as of this encounter Progress Notes [facility] SLP - 06/25/2020 11:30 AM EDTSummary: [employer]KER Treatment & Progress Note Speech Language Pathology Treatment & Progress Note Patient Profile: Ward Santamaria is a [...] andtrismus monitoring; spouse Nika also present for education. Patient was much less fatigued today, demonstrating improved affect. Patient and spouse agreeable with recommendation for follow up VFSE/MBSS on 07/16. Patient reports he is beginning to tolerate IDDSI Level 4 solids (pureed texture), ie cream of wheat, applesauce, and mostly inhibited by taste at this time. Reports scheduled Dentist appointment on for cleaning. Objective: Pain: 0/10 Respiratory Status: Room air Vision: N/A Hearing: Significant Impairment Current Diet: No diet orders on file Feeding / Oral Care Status: Pt is independent Cognitive-Linguistic Status: alert, oriented to person, place, and time Follows Commands: Follows multi-step commands, does require repetition due to hearing deficits Positioning: Pt up to chair Oral / Laryngeal Mechanism Clinical Assessment: ?? Jaw: Impaired mobility, denies pain today, however some edema is present on L side of neck/buccalregion Trismus: SUNITA: 32 mm Mild (30-34 mm) (Missael et al, 2006) Lateral Excursion: DNT (AAOMS Parameters of Care, 2007) Initial SUNITA: 32 mm Tissue Manipulation: Completed Stretch/Massage routine Passive exercise with ARK-J Level 2 Device Hold 10 secs / 6 reps, 3 sets 3x/day Reported pain at 3-5 / 10 (subsides with repetition) Active jaw ROM exercise: Not addressed today Ending SUNITA: 34 mm ?? Dentition: WFL Last Dentist Visit: March 2020 Next Dentist Visit: in ~1 week Concerns with oral hygiene care/routine? No; using [...] Education Addressed: - Continuation of thorough oral care. - Reviewed *Gentle* ARK-J stretch/massage routine to perform prior to use of ARK-J device, with associated precautions (ie if pain is above 5/10 during any aspect of routine, stop until able to consultwith MD or TAG MAKER) - Risk Management Compensatory Techniques/Precautions: Slow Rate, Small Bites and Small Sips Upright position during meals and for at least 30 mins following Sensory enhancement (flavor, texture, temperature) as tolerated Excellent oral care Avoidance of aggressive jaw stretching unless approved by [employer], given risks of ORN Pt/spouse able to demonstrate comprehension of all recommendations. Assessment Ward Santamaria demonstrates continued oropharyngeal dysphagia and mild trismus (SUNITA at 32mm)with reduced associated jaw pain at this time. Patient and spouse were provided with ARK-J material outlining prerequisites (and cautions) for beginning direct trismus treatment as well as gentle massage routine, and ARK-J level 2 device. Diagnosis: Oropharyngeal dysphagia, trismus Recommendations: Instrumentation: Videofluoroscopic Swallow Study / Modified Barium Swallow Study [VFSS/MBSS] Diet: Solids as tolerated IDDSI Level 4/5 Pureed/Minced&Moist, Level 0 - thin liquids, may increase viscosity if overt s/sx aspiration are noted, encourage follow up with TAG [employer]KER in this case PO medications: as tolerated [...] or FEES. Plan: Discussed subsequent visit for 07/09/20 to address direct trismus treatment planning and discussed plan for VFSE/MBSS on 07/16/20. Pt./family are in agreement with treatment plan. Please feel free to call me with any questions or concerns regarding Ward Santamaria's care. Gilda Jameson MA CCC-TAG MAK[employer] Speech-Language Pathologist [email or web address] documented in this encounter Plan of Treatment Upcoming Encounters Date Type Specialty Care Team Description 10/21/2021 Infusion Hematology and Oncology 11/09/2021 Office Visit Hematology and Oncology Alhaji Ritchie MD [facility] DR ONCOLOGY DEPT. [place], [place] [address] (Jin carson) 11/09/2021 Infusion Hematology and Oncology 12/10/2021 Office Visit Dermatology Silas Walters MD [address] [place] [address] DERMATOLOGY [place], [place] [address] (Jin carson) 09/19/2039 Hospital Encounter Surgery Osman Barnett MD [facility] OTOLARYNGOLOGY D EPT. [place], [place] [address] (Jin carson) Scheduled Procedures Name [...] type documented in this encounter Care Teams Strike Planning Applications Relationship Specialty Start Date End Date Tara Joya MD PCP - General Family Medicine 05/16/[address] [place] [address] documented as of this encounter
--- OUTSIDE RECORDS SUMMARY | 2021-10-21 07:58 | XMS_ITS | Encounter Summary ---
:1950 Author Organization [facility] [place] [address] Care Team Providers Name Role Phone Tara Joya MD Primary Care Provider [phone] Encounter Details Date Type Department Care Team Description 08/27/2020 Office Visit Hematology/Oncology at Margarita Fowler [address] HEMATOLOGY AND [address] ONCOLOGY [phone] [place], [place] [address] (Wo rk) Social History Tobacco [...] - Inhaled Oxygen Concentration - - Weight 73.6 kg (162 lb 3.2 oz) 08/29/2020 9:00 AM EDT Height 175.3 cm (5' 9.02) 08/29/2020 9:00 AM EDT Body Mass Index 23.94 08/29/2020 9:00 AM EDT documented in this encounter Progress Notes Margarita Fowler RD - 08/27/2020 1:00 PM EDT [facility] Nutrition Assessment Progress Note Ward G Cook 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 Chemo/RT completed 05/28/20. VFSE/MBSS completed 07/16 at [facility]. Assessment: Nutrition Screen 08/29/2020 Reason for assessment EN support Total MST Score - Functional Status 08/29/2020 Appetite Reduced compared to usual intake Early satiety Absent Blood glucose levels Hypergylcemic Nausea Grades - Vomiting Grades - Diarrhea Grades - Xerostomia - Dysgeusia Present Abdominal pain Absent Patient reports continued dysphagia (also saw EMANATIONS ANALYSIS TECHNICIAN today), some difficulty swallowing certain foods including waffles, but is continuing to expand the list of foods he is eating. Taste change is improving. Patient has a dentist visit upcoming and needs to have a tooth pulled. Food History, Access and Intake 08/29/2020 Patient Reported Diet G-tube dependent Usual Intake: Breakfast: Cheerios and cream of wheat Lunch: Soft tacos or [place] with bengali fries Dinner: Meatloaf or pasta dish or wrap with chicken tomato and lettuce Snacks: Sometimes ice cream Beverages: Milk, Pepsi, water ONS: None--dislikes Avoiding any foods: Spicy foods do not taste good Exercise: Active with yard work Tube Feedin-4 cans (usually 4) Nutren 2.0 per day. 4 cans Nutren 2.0 provides 2000 kcal, 84 grams protein, 692 ml water. He has not felt ready to commit to reduction to 3 cans on a daily basis, as discussed during last visit. Patient reports that his is encouraging him to eat more all of the time. He used to follow a pattern of two meals/day and ice cream in the evening. He has been having ice cream occasionally recently. Nutrition Support 08/29/2020 Are you receiving enteral, parenteral or venting support? Yes Select support type Enteral G/J tube: when was it placed? 05/13/2020 How was it placed? Surgically Currently using tube? Yes How is nutrition being delivered? [place] Tube feeding formula and rate Nutren 2.0 Home care vendor [facility] Flushing before/after feedings with: 60 mls See above. At last visit two weeks ago, patient is flushing 60 ml before and after his two feedings plus additional 2L free water via tube daily, as reported by Nika. Wt Readings from Last 3 Encounters: 08/29/20 73.6 kg (162 lb 3.2 oz) 08/15/20 73.7 kg (162 lb 6.4 oz) 07/30/20 73 kg (161 lb) BMI 23.98 Patient reports weight has been stable on home scale ~160#. He said his weight went down slightly the morning after a day of using 3 cans Nutren 2.0, so he went back to using 4 cans Nutren 2.0 that day. Weight has been stable x 2.5 months. Medications: Gabapentin, glipizide, miralax, abilify, metoprolol, lipitor, tricor, lamictal, elavil,aspirin No updated labs Nutrition Diagnosis 08/15/2020 Problems Inadequate oral intake Etiology (related to) Daily H/N radiation therapy Signs and Symptoms > 5 % uinintentional weight loss in 1 month (Severe) Improving--weight stable x 2.5 months Estimated needs based on current weight of 73.6 [id number] kcals (30-35 kcal/kg) 111 grams protein (1.5 g/kg) ~2.2 L fluid (1 ml/kcal) Intervention: * Encouraged continuing to try to optimize/increase PO intake and decrease to 3 cans Nutren 2.0 per day in line with goal of working toward weaning off tube feeding. Three cans Nutren 2.0 provides 1500kcal, 63 grams protein, 519 ml water. Patient is putting additional 2240 ml water through G-tube. * Encouraged weighing himself less often (once every other day) and paying attention more to trend of weight change. * Discussed strategies for improving taste of foods, which seems to be the main obstacle. * Textures per EMANATIONS ANALYSIS TECHNICIAN (IDDSI Level 6/7 as tolerated, Level 0 - thin liquids on 08/29/20) * Encouraged calorie dense ice cream in evening. Follow Up: On 09/17/20 Note: Please see Hematology/Oncology malnutrition flowsheet for complete RD assessment/documentation documented in this encounter Plan of Treatment Upcoming Encounters Date Type Specialty Care Team Description 10/21/2021 Infusion Hematology and Oncology 11/09/2021 Office Visit Hematology and Oncology Alhaji Ritchie MD [facility] DR ONCOLOGY DEPT. [place], [place] [address] (Wo rk) 11/09/2021 Infusion Hematology and Oncology 12/10/2021 Office Visit Dermatology Silas Walters MD [address] DERMATOLOGY [place], [place] [address] (Wo rk) 09/19/2039 Hospital Encounter Surgery Osman Barnett MD [facility] OTOLARYNGOLOGY D EPT. [place], [place] [address] (Wo rk) Scheduled Procedures Name [...] neck documented in this encounter Care Teams Potato Chip Cooker Machine Relationship Specialty Start Date End Date Tara Joya MD PCP - General Family Medicine 05/16/[address] [place] [address] documented as of this encounter
--- OUTSIDE RECORDS SUMMARY | 2021-10-21 07:58 | XMS_ITS | Encounter Summary ---
:1950 Author Organization [facility] [place] [address] Care Team Providers Name Role Phone Tara Joya MD Primary Care Provider [phone] Encounter Details Date Type Department Care Team Description 06/09/2020 Orders Only Hematology and Ashok Ritchie Dehydrati on; Oncology at [facility] Squamous cell carcinoma of ear, left [facility] [address] [place] [address] ONCOLOGY DEPT. [phone] [place], [place] [address] Social History Tobacco Use Types Packs/Day Years Used Date Former Smoker Cigarettes 1 40 Quit: 01/09/20 03 Smokeless Tobacco: Never Used Alcohol Use Standard Drinks/Week Comments No 0 (1 standard drink = 0.6 oz pure alcoho l) Sex Assigned at Date Recorded Not on file documented as of this encounter Progress Notes Ashok Ritchie MD - 06/09/2020 10:09 AM EDT [facility] HEAD AND NECK CANCER PROGRAM/[facility] Oncology Phone Note Not doing well with oral or G-tube hydration, but keeping up with Nutren feedings. Impression: likely dehydrated. Plan: IV fluid, 1 liter normal saline, to be arranged at [facility] today or tomorrow. Ashok Ritchie MD, FACP Hematology/Oncology Section, [facility] wool merchant, [facility] at [facility] [phone] documented in this encounter Plan of Treatment Upcoming Encounters Date Type Specialty Care Team Description 10/21/2021 Infusion Hematology and Oncology 11/09/2021 Office Visit Hematology and Oncology Alhaji Ritchie MD [facility] DR ONCOLOGY DEPT. [place], [place] [address] (Wo rk) 11/09/2021 Infusion Hematology and Oncology 12/10/2021 Office Visit Dermatology Silas Waletrs MD [address] DERMATOLOGY [place], [place] [address] (Wo rk) 09/19/2039 Hospital Encounter Surgery Osman Barnett MD [facility] OTOLARYNGOLOGY D EPT. [place], [place] [address] (Wo rk) Scheduled Procedures Name [...] as of this encounter Visit Diagnoses Diagnosis Dehydration Squamous cell carcinoma of ear, left documented in this encounter Care Teams Slater Apprentice Relationship Specialty Start Date End Date Tara Joya MD PCP - General Family Medicine 05/16/[address] [place] [address] documented as of this encounter
--- OUTSIDE RECORDS SUMMARY | 2021-10-21 07:58 | XMS_ITS | Encounter Summary ---
:1950 Author Organization [facility] [place] [address] Care Team Providers Name Role Phone Tara Joya MD Primary Care Provider [phone] Encounter Details Date Type Department Care Team Description 07/22/2020 Telephone Hematology/Oncology at Caterina Lopez RD [address] [phone] Social History Tobacco Use Types Packs/Day Years Used Date Former Smoker Cigarettes 1 40 Quit: 01/09/20 03 Smokeless Tobacco: Never Used Alcohol Use Standard Drinks/Week Comments No 0 (1 standard drink = 0.6 oz pure alcoho l) Sex Assigned at Date Recorded Not on file documented as of this encounter Miscellaneous Notes Telephone Encounter - Caterina Aguirre RD - 07/23/2020 8:17 AM EDT Nutrition Follow Up - phone call Spoke with patient's , Nika. She reports patient is working on increasing oral intake, although requiring much encouragement and reinforcement. Breakfast is most consistent meal. Taste remains poor. 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 He has seen E MERCHANT. She states having a goal for patient to eat one full meal per day. Continues to use feeding tube to support adequate caloric intake while transitioning to oral diet. Down to 4 cartons of Nutren 2.0 the past couple of days. She states his weight remains stable. Discussion/plan: Encouraged continuing to introduce new foods. Suggested adding tart flavors, such as lemon and vinegar, or other tart fruits. Continue with 4 cartons per day. Discussed weaning further as oral intake increases. This may help stimulate his appetite as well. Plan for colleague/new [facility] dietitian Avila Page to visit with patient/ when they return to clinic on 07/30/20. documented in this encounter Plan of Treatment Upcoming Encounters Date Type Specialty Care Team Description 10/21/2021 Infusion Hematology and Oncology 11/09/2021 Office Visit Hematology and Oncology Alhaji Ritchie MD [facility] DR ONCOLOGY DEPT. [place], [place] [address] (Wo rk) 11/09/2021 Infusion Hematology and Oncology 12/10/2021 Office Visit Dermatology Silas Walters MD [address] [place] [address] RD DERMATOLOGY [place], [place] [address] (Wo rk) 09/19/2039 Hospital Encounter Surgery Osman Barnett MD [facility] OTOLARYNGOLOGY D EPT. [place], [place] [address] (Wo rk) Scheduled Procedures Name [...] on filedocumented in this encounter Care Teams Strike Off Machine Operator Relationship Specialty Start Date End Date Tara Joya MD PCP - General Family Medicine 05/16/[address] [place] [address] documented as of this encounter
--- OUTSIDE RECORDS SUMMARY | 2021-10-21 07:58 | XMS_ITS | Encounter Summary ---
:1950 Author Organization [facility] [place] [address] Care Team Providers Name Role Phone Tara Joya MD Primary Care Provider [phone] Encounter Details Date Type Department Care Team Description 06/19/2020 Orders Only Radiation Oncology at Eleazar Galdamez, Squamous cell [facility] carcinoma of ear, left [facility] [place] [address] RADIATION ONCOLOGY [phone] [place], [place] [address] Social History Tobacco Use Types [...] MD [facility] DR ONCOLOGY DEPT. [place], [place] [address] (Wo rk) 11/09/2021 Infusion Hematology and Oncology 12/10/2021 Office Visit Dermatology Silas Walters MD [address] [place] [address] DERMATOLOGY [place], [place] [address] (Wo rk) 09/19/2039 Hospital Encounter Surgery Osman Barnett MD [facility] OTOLARYNGOLOGY Sharlene EPT. [place], [place] [address] (Wo rk) Scheduled Procedures Name [...] left documented in this encounter Care Teams Regulatory Affairs Associate Relationship Specialty Start Date End Date Tara Joya MD PCP - General Family Medicine 05/16/[address] [place] [address] documented as of this encounter
--- OUTSIDE RECORDS SUMMARY | 2021-10-21 07:58 | XMS_ITS | Encounter Summary ---
:1950 Author Organization [facility] Address [facility] [place] [address] Care Team Providers Name Role Phone Tara Joya MD Primary Care Provider [phone] Reason for Visit Reason Onset Date Comments Parental/patient Concern 06/09/2020 Spouse concernnuno Hopper is dehydrated Encounter Details Date Type Department Care Team Description 06/09/2020 Telephone Hematology Oncology at Francesca Wilson, Parental/patient [facility] RN Concern (Spouse [address] concerned Ward is [facility], [place] dehydrated) [phone] Social History Tobacco Use Types Packs/Day Years Used Date Former Smoker Cigarettes 1 40 Quit: 01/09/20 03 Smokeless Tobacco: Never Used Alcohol Use Standard Drinks/Week Comments No 0 (1 standard drink = 0.6 oz pure alcoho l) Sex Assigned at Date Recorded Not on file documented as of this encounter Miscellaneous Notes Telephone Encounter - Francesca Wilson RN - 06/09/2020 12:29 PM EDT Following a nutrition consultation Mrs. Santamaria called to ask if Ward could receive hydration Tuesday. She stated that his mentation was not as clear and that he appeared weak and unsteady. She stated that the conversation with the control room operator resulted in the addition of free water to his regimen. I spoke with Dr. Ritchie who ordered the hydration for 06/10. Spouse in agreement with plan. documented in this encounter Plan of Treatment Upcoming Encounters Date Type Specialty Care Team Description 10/21/2021 Infusion Hematology and Oncology 11/09/2021 Office Visit Hematology and Oncology Alhaji Ritchie MD [facility] DR ONCOLOGY DEPT. [place], [place] [address] (Wo rk) 11/09/2021 Infusion Hematology and Oncology 12/10/2021 Office Visit Dermatology Silas Walters MD [address] [place] [address] RD DERMATOLOGY [place], [place] [address] (Wo rk) 09/19/2039 Hospital Encounter Surgery Osman Barnett MD [facility] OTOLARYNGOLOGY D EPT. [place], [place] [address] (Wo rk) Scheduled Procedures Name [...] on filedocumented in this encounter Care Teams Yarding Supervisor Relationship Specialty Start Date End Date Tara Joya MD PCP - General Family Medicine 05/16/[address] [place] [address] documented as of this encounter
--- OUTSIDE RECORDS SUMMARY | 2021-10-21 07:58 | XMS_ITS | Encounter Summary ---
:1950 Author Organization [place] [address] Care Team Providers Name Role Phone Tara Joya MD Primary Care Provider [phone] Encounter Details Date Type Department Care Team Description 09/17/2020 [facility] [address] [phone] Social History Tobacco Use Types Packs/Day Years Used Date Former Smoker Cigarettes 1 40 Quit: 01/09/20 03 Smokeless Tobacco: Never Used Alcohol Use Standard Drinks/Week Comments No 0 (1 standard drink = 0.6 oz pure alcoho l) Sex Assigned at Date Recorded Not on file documented as of this encounter Progress Notes Gilda aJmeson, LONG - 09/17/2020 12:53 PM EDTSummary: [place]DM[place] Non Treatment Note PONDMAN Non Treatment/Communication Note PONDM[place] spoke with spouse, Nika, regarding patient's current increase in po intake and plan to have tube removed this Tuesday; discussed continuing hold re: trismus treatment/progressivation with device use until patient is seen by oral surgeon given reviewed risk(s), including ORN. Spouse reports patient has been less likely to participate in HEP for swallowing txt at home since his previous routine had aligned with tube feedings; will address motivational interview during subsequent session as needed. Plan: Patient's spouse indicates she will contact [facility] and/or [facility] directly once oral surgery has been addressed and/or patient would like to re-initiate [facility] services. Patient and spouse are in agreement with not discharging patient from [facility] services at this time given continued goals related to oral function. Subsequent [place] txt date/time TBD. Gilda Jameson MA CCC-PONDMAN Speech-Language Pathologist documented in this encounter Plan of Treatment Upcoming Encounters Date Type Specialty Care Team Description 10/21/2021 Infusion Hematology and Oncology 11/09/2021 Office Visit Hematology and Oncology Alhaji Ritchie MD [facility] DR ONCOLOGY DEPT. [place], [place] [address] (Wo rk) 11/09/2021 Infusion Hematology and Oncology 12/10/2021 Office Visit Dermatology Silas Walters MD [address] [place] [address] DERMATOLOGY [place], [place] [address] (Wo rk) 09/19/2039 Hospital Encounter Surgery Osman Barnett MD [facility] OTOLARYNGOLOGY D EPT. [place], [place] [address] (Wo rk) Scheduled Procedures Name [...] on filedocumented in this encounter Care Teams Swimming Coach Relationship Specialty Start Date End Date Tara Joya MD PCP - General Family Medicine 05/16/[address] [place] [address] documented as of this encounter
--- OUTSIDE RECORDS SUMMARY | 2021-10-21 07:58 | XMS_ITS | Encounter Summary ---
:1950 Author Organization [facility] [place] [address] Care Team Providers Name Role Phone Tara Joya MD Primary Care Provider [phone] Reason for Visit Reason Comments IV Access mediport flush Encounter Details Date Type Department Care Team Description 07/30/2020 Infusion Hematology Oncology at [facility] uamous cell carcinoma of [facility] ear, left [address] [place] [address] Drive [place] [phone] Social History Tobacco Use Types Packs/Day Years Used Date Former Smoker Cigarettes 1 40 Quit: 01/09/20 03 Smokeless Tobacco: Never Used Alcohol Use Standard Drinks/Week Comments No 0 (1 standard drink = 0.6 oz pure alcoho l) Sex Assigned at Date Recorded Not on file documented as of this encounter Progress Notes Sravani Logan RN - 07/30/2020 9:00 AM EDT INFUSION THERAPY ADMINISTRATION NOTES DIAGNOSIS: 1. Squamous cell carcinoma of ear, left heparin (pf) (porcine) (100 units/mL) flush 5 mL syringe 500Units sodium chloride 0.9 % (flush) flush 10-20 mL REASON FOR VISIT: MEDIPORT FLUSH ONLY IV ACCESS: Mediport GAUGE: 19G BLOOD RETURN: yes ANY S/S OF INFECTION/EXTRAVASATIONS: no signs of IV complications observed IV FLUSHED WITH: 20cc NS and 500 units Heparin IV DISCONTINUED: yes ASSESSMENT: Patient tolerated treatment well. PLAN: Return to clinic per routine. documented in this encounter Plan of Treatment Upcoming Encounters Date Type Specialty Care Team Description 10/21/2021 Infusion Hematology and Oncology 11/09/2021 Office Visit Hematology and Oncology Alhaji Ritchie MD [facility] DR ONCOLOGY DEPT. [place], [place] [address] (Wo rk) 11/09/2021 Infusion Hematology and Oncology 12/10/2021 Office Visit Dermatology Silas Walters MD [address] [facility] DERMATOLOGY [place], [place] [address] (Wo rk) 09/19/2039 Hospital Encounter Surgery Osman Barnett MD [facility] OTOLARYNGOLOGY D EPT. [place], [place] [address] (Wo rk) Scheduled Procedures Name [...] Rate Site heparin (pf) (porcine) (100 Given 07/30/2020 10:41 AM EDT 500 Un its units/mL) flush 5 mL syringe 500 Units 500 Units, Intravenous, ONCE PRN, Starting on Tue07/30/20 at 1026, Until Tue07/30/20 at 1332, Line Care, Routine sodium chloride 0.9 % (flush) flush 10-2 0 mL Given 07/30/2020 10:41 AM EDT 20 mLs 10-20 mL, Intravenous, EVERY 1 MIN PRN, Starting on Tue07/30/20 at 1026, Until Tue07/30/20 at 1332, Tube Splicer, Routine documented in this encounter Care Teams Spinal Surgeon Relationship Specialty Start Date End Date Tara Joya MD PCP - General Family Medicine 05/16/[address] [place] [address] documented as of this encounter
--- OUTSIDE RECORDS SUMMARY | 2021-10-21 07:58 | XMS_ITS | Encounter Summary ---
:1950 [place] [address] Care Team Providers Name Role Phone Tara Joya MD Primary Care Provider [phone] Encounter Details Date Type Department Care Team Description 05/28/2020 Notes Only Radiation Oncology [place] [facility] Eleazar Galdamez MD [facility] [place] [address] RADIATION ONCOLOGY [phone] [place], [place] [address] (Wo rk) Social History Tobacco Use Types Packs/Day Years Used Date Former Smoker Cigarettes 1 40 Quit: 01/09/20 03 Smokeless Tobacco: Never Used Alcohol Use Standard Drinks/Week Comments No 0 (1 standard drink = 0.6 oz pure alcoho l) Sex Assigned at Date Recorded Not on file documented as of this encounter Progress Notes Eleazar Galdamez MD - 05/28/2020 11:59 PM EST Images from the original note were not included. Radiation Oncology Treatment Summary PATIENT NAME: Ward Santamaria DATE OF : 1950 DIAGNOSIS / TREATMENT OVERVIEW Ward Santamaria is a 69 y.o. 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 Adjuvant chemoradiotherapy. TREATMENT DETAILS Treatment Intent Curative Site Treated [...] Cycle 1 CISplatin (Platinol) IV 35 mg/m2/dose Clinical Trial No TECHNICAL DETAILS Total Dose: 60 Gy @ 2 Gy/fxn, 54 Gy @ 1.8 Gy/fxn, sequential boost to 66 Gy @ 2 Gy / fxn PLAN IMAGES CLINICAL COURSE Ward Santamaria had the following toxicities at the end of treatment (CTCAE v4.03): Site Grade Skin 2 Xerostomia 2 Pharyngeal Mucositis 1 Dysphagia 0 Hoarseness 0 Feeding Tube: Y FOLLOW UP Per [facility] protocol documented in this encounter Plan of Treatment Upcoming Encounters Date Type Specialty Care Team Description 10/21/2021 Infusion Hematology and Oncology 11/09/2021 Office Visit Hematology and Oncology Alhaji Ritchie MD [facility] DR ONCOLOGY DEPT. [place], [place] [address] (Wo rk) 11/09/2021 Infusion Hematology and Oncology 12/10/2021 Office Visit Dermatology Silas Walters MD [address] [place] [address] DERMATOLOGY [place], [place] [address] (Wo rk) 09/19/2039 Hospital Encounter Surgery Osman Barnett MD [facility] OTOLARYNGOLOGY D EPT. [place], [place] [address] (Wo rk) Scheduled Procedures Name [...] on filedocumented in this encounter Care Teams Manager Unit Relationship Specialty Start Date End Date Tara Joya MD PCP - General Family Medicine 05/16/[address] [place] [address] documented as of this encounter
--- OUTSIDE RECORDS SUMMARY | 2021-10-21 07:58 | XMS_ITS | Encounter Summary ---
:1950 Author Organization [facility] [place] [address] Care Team Providers Name Role Phone Tara Joya MD Primary Care Provider [phone] Encounter Details Date Type Department Care Team Description 07/30/2020 Office Visit Radiation Oncology at [facility] Galdamez, Squamous cell [facility] carcinoma of ear, left [address] [place] [address] RADIATION ONCOLOGY [phone] [place] [id number] Social History Tobacco Use Types Packs/Day Years Used Date Former Smoker Cigarettes 1 40 Quit: 01/09/20 03 Smokeless Tobacco: Never Used Alcohol Use Standard Drinks/Week Comments No 0 (1 standard drink = 0.6 oz pure alcoho l) Sex Assigned at Date Recorded Not on file documented as of this encounter Last Filed Vital Signs Vital Sign Reading Time Taken Comments Blood Pressure 138/84 07/30/2020 9:05 AM EDT Pulse 92 07/30/2020 9:05 AM EDT Temperature 36.7 ??C (98 ??F) 07/30/2020 9:05 AM EDT Respiratory Rate 18 07/30/2020 9:05 AM EDT Oxygen Saturation 100% 07/30/2020 9:05 AM EDT Inhaled Oxygen Concentration - - Weight 73 kg (161 lb) 07/30/2020 9:05 AM EDT Height 172.7 cm (5' 8) 07/30/2020 9:05 AM EDT Body Mass Index 24.48 07/30/2020 9:05 AM EDT documented in this encounter Progress Notes Eleazar Galdamez MD - 07/30/2020 8:30 AM EDT FOLLOW UP VISIT NOTE Ward Santamaria is a 69 y.o. 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 Adjuvant chemoradiotherapy completed 05/28/20. Changes in medical condition Pain: denies oropharyngeal pain Secretions/Dryness: moderate xerostomia, severe dysgeusia. Using BSSW. Swallowing Function: no issues excepting dryness Nutrition: small volume by mouth, TF going well G-tube: No issues Skin: no symptoms GI: -N/V: resolved -Bowels: no issues Eye: no issues at the moment Nutrition Assessment: Weight : 77.6 kg initial Change: 73.9 => 73 kg Objective: SKIN: no erythema, mild dryness MUCOSA: no mucositis, moderately dry Eye: s/p tarsorrhaphy, no epiphora G-tube: erythema around site under bumper. Stable. Assessment: Overall doing well. Continued issues with dysgeusia and limited oral intake. He will continue to work to increase oral intake. CTCAE TOXICITY GRADES (see below for mcneal): Site Grade Skin 0 Xerostomia 1 Pharyngeal Mucositis 0 Dysphagia 0 Hoarseness 0 TREATMENT RESPONSE: No change Plan: ?? Pain control: ?? OTC medications ?? Skin: Aquaphor cream prn ?? Mucositis: ?? Pain control: see above ?? Oral hygiene consisting of baking soda/salt rinse at least 8 times daily ?? 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 Weight stable, all via G tube. Discussed strategies to increase oral intake, limited by taste ?? G tube: s/p adjustment, doing well ?? N/V: resolved ?? Eye: s/p tarsorrhaphy ?? FU: one month CTCAE v4.03 scales for reference Skin 0 [...] Visit Hematology and Oncology Alhaji Ritchie MD [facility] DR ONCOLOGY DEPT. [place], [place] [address] (Jin carson) 11/09/2021 Infusion Hematology and Oncology 12/10/2021 Office Visit Dermatology Silas Walters MD [address] [place] [address] DERMATOLOGY [place], [place] [address] (Jin carson) 09/19/2039 Hospital Encounter Surgery Osman Barnett MD [facility] OTOLARYNGOLOGY D EPT. [place], [place] [address] (Jin carson) Scheduled Procedures Name [...] left documented in this encounter Care Teams Labor Arbitrator Hearing Office Relationship Specialty Start Date End Date Tara Joya MD PCP - General Family Medicine 05/16/[address] [place] [address] documented as of this encounter
--- OUTSIDE RECORDS SUMMARY | 2021-10-21 07:58 | XMS_ITS | Encounter Summary ---
:1950 Author Organization [facility] [place] [address] Care Team Providers Name Role Phone Tara Joya MD Primary Care Provider [phone] Encounter Details Date Type Department Care Team Description 10/10/2020 Telephone Radiation Oncology at KarmaCharlene richardson RN [place] [phone] Social History Tobacco Use Types Packs/Day Years Used Date Former Smoker Cigarettes 1 40 Quit: 01/09/20 03 Smokeless Tobacco: Never Used Alcohol Use Standard Drinks/Week Comments No 0 (1 standard drink = 0.6 oz pure alcoho l) Sex Assigned at Date Recorded Not on file documented as of this encounter Miscellaneous Notes Telephone Encounter - Charlene Zeng RN - 10/10/2020 4:12 PM EDT Patient and inquire if Dr. Galdamez has spoken with patient's dentist regarding necessary extraction. Dr. Galdamez advised that he did speak with dentist and that it will be Ok to have extraction. Patient and updated and are pleased to hear this. Patient also very happy to have PEG tube out and has been doing well without it. documented in this encounter Plan of Treatment Upcoming Encounters Date Type Specialty Care Team Description 10/21/2021 Infusion Hematology and Oncology 11/09/2021 Office Visit Hematology and Oncology Alhaji Ritchie MD [facility] DR ONCOLOGY DEPT. [place], [place] [address] (Wo rk) 11/09/2021 Infusion Hematology and Oncology 12/10/2021 Office Visit Dermatology Silas Walters MD [address] DERMATOLOGY [place], [place] [address] (Wo rk) 09/19/2039 Hospital Encounter Surgery Osman Barnett MD [facility] OTOLARYNGOLOGY D EPT. [place], [place] [address] (Wo rk) Scheduled Procedures Name [...] on filedocumented in this encounter Care Teams Cad Programmer Relationship Specialty Start Date End Date Tara Joya MD PCP - General Family Medicine 05/16/[address] [place] [address] documented as of this encounter
--- OUTSIDE RECORDS SUMMARY | 2021-10-21 07:58 | XMS_ITS | Encounter Summary ---
:1950 Author Organization [facility] [address] Care Team Providers Name Role Phone Tara Joya MD Primary Care Provider [phone] Encounter Details Date Type Department Care Team Description 06/04/2020 Office Visit Hematology/Oncology at Gilda Jameson D ysphagia, unspecified type; [facility] NEON TUBE PUMPER Parotid [address] [address] Social History Tobacco Use Types Packs/Day Years Used Date Former Smoker Cigarettes 1 40 Quit: 01/09/20 03 Smokeless Tobacco: Never Used Alcohol Use Standard Drinks/Week Comments No 0 (1 standard drink = 0.6 oz pure alcoho l) Sex Assigned at Date Recorded Not on file documented as of this encounter Progress Notes Gilda Jameson SLP - 06/04/2020 10:15 AM EDTSummary: NEON TUBE PUMPER Progress Note Speech Language Pathology Progress Note Patient Profile: Ward Santamaria is [...] nausea R11.0, T45.1X5A Subjective: Ward Santamaria seen briefly again in clinic today for follow up visit to address dysphagia management and trismus monitoring; spouse Nika also present. Patient was less fatigued today, demonstrating improved affect. Patient and spouse agreeable with recommendation for follow up VFSE/MBSS in~4 weeks; spouse inquired re: details for beginning direct trismus therapy, and agreeable to follow up visit first week of June with NEON TUBE PUMPER. Objective: Pain: 0/10 Respiratory Status: Room air Vision: N/A Hearing: Significant Impairment Current Diet: No diet orders on file Feeding / Oral Care Status: Pt is independent Cognitive-Linguistic Status: alert, oriented to person, place, and time Follows Commands: Follows multi-step commands, does require repetition due to hearing deficits Positioning: Pt up to chair Oral / Laryngeal Mechanism Clinical Assessment: Reports following changes relative to initial assessment: ?? Jaw: Impaired mobility, reports continued pain today, however somewhat improved ?? Trismus: Yes SUNITA: 30 mm Mild (30-34 mm) (Missael et al, 2006) ?? Lateral Excursion: DNT (AAOMS Parameters of Care, 2007) ?? Dentition: WFL Last Dentist Visit: March 2020 Next Dentist Visit: 6 month follow up Concerns with oral hygiene care/routine? Some, using BSSR but less consistently Prescription toothpaste, prescription mouthwash Bolus Presentation(s) N/A Standardized Assessment(s) Previously administered 04/30/20: MD Marin Dysphagia Inventory [MDADI], a validated and reliable self- administered questionnaire designed specifically for evaluating the impact of dysphagia on the QOL of patients with head and neck cancer (Ning et beronica 2001), was administered: Global Score: 3 Scores range from 1 (Extremely low functioning) to 5 (Extremely high functioning) Composite Score: 62.1 Scores range from 20 (Extremely low functioning) to 100 (High functioning) Education Addressed: - Continued use of EAT-RT protocol as tolerated, effortful saliva swallows, continuation of thoroughoral care. - Gentle ARK-J stretch/massage routine to trial prior to subsequent visit with NEON TUBE PUMPER to address trismus - Risk Management Compensatory Techniques/Precautions: Slow Rate, Small Bites and Small Sips Upright position during meals and for at least 30 mins following Sensory enhancement (flavor, texture, temperature) as tolerated Excellent oral care Avoidance of aggressive jaw stretching until seen by NEON TUBE PUMPER in June, given risks of ORN Pt/spouse able to demonstrate comprehension of all recommendations, provided direct contact number for NEON TUBE PUMPER if any questions arise. Assessment Ward Santamaria demonstrates continued oropharyngeal dysphagia and mild trismus (SUNITA at 30mm)with reduced associated jaw pain at this time. Patient and spouse were provided with ARK-J material outlining prerequisites (and cautions) prior to beginning direct trismus treatment as well as gentle massage routine prior to follow up visit. Diagnosis: Oropharyngeal dysphagia, trismus Recommendations: Instrumentation: Videofluoroscopic Swallow Study / Modified Barium Swallow Study [VFSS/MBSS] Diet: Solids as tolerated IDDSI Level 4/5 Pureed/Minced&Moist, Level 0 - thin liquids, may increase viscosity if overt s/sx aspiration are noted, encourage follow up with NEON TUBE PUMPER in this case PO medications: as tolerated [...] Pt will demonstrate comprehension of trismus management techniques during course of cancer treatment and trismus HEP once treatment has been completed, as appropriate. Goal In Progress Further goals TBD pending VFSE/MBSS or FEES. Plan: Discussed subsequent visit for 06/25/20 to address direct trismus treatment planning and potential plan for VFSE/MBSS for that afternoon. Pt./family are in agreement with treatment plan. Thank you for this consult. Please feel free to call me with any questions or concerns regarding Ward Santamaria's care. Gilda Jameson MA CCC-NEON TUBE PUMPER Speech-Language Pathologist [email or web address] documented in this encounter Plan of Treatment Upcoming Encounters Date Type Specialty Care Team Description 10/21/2021 Infusion Hematology and Oncology 11/09/2021 Office Visit Hematology and Oncology Alhaji Ritchie MD [facility] DR ONCOLOGY DEPT. [place], [place] [address] (Wo rk) 11/09/2021 Infusion Hematology and Oncology 12/10/2021 Office Visit Dermatology Silas Walters MD [address] [place] [address] DERMATOLOGY [place], [place] [address] (Wo rk) 09/19/2039 Hospital Encounter Surgery Osman Barnett MD [facility] OTOLARYNGOLOGY D EPT. [place], [place] [address] (Wo rk) Scheduled Procedures Name [...] neck documented in this encounter Care Teams Tunnel Worker Relationship Specialty Start Date End Date Tara Joya MD PCP - General Family Medicine 05/16/[address] [place] [address] documented as of this encounter
--- OUTSIDE RECORDS SUMMARY | 2021-10-21 07:58 | XMS_ITS | Encounter Summary ---
:1950 Author Organization [facility] [place] [address] Care Team Providers Name Role Phone Tara Joya MD Primary Care Provider [phone] Reason for Referral Diagnostic Test (Routine) - Closed Specialty Diagnoses / Procedures Referred By Contact Refer red To Contact Diagnoses Squamous cell carcinoma of ear, left Hyperglycemia Ashok Ritchie MD Procedures CT Neck Soft Tissue w Contrast (Generic) [facility] [place] [address] Referral ID Status Reason Start Date Expiration Date Visits V isits Requested Authorized [id number] Closed Specialty 06/23/2020 12/23/2021 1 1 Service Requested Reason for Visit Diagnostic Test (Routine) - Closed Specialty Diagnoses / Procedures Referred By Contact Refer red To Contact Diagnoses Squamous cell carcinoma of ear, left Hyperglycemia Ashok Ritchie MD Procedures CT Neck Soft Tissue w Contrast (Generic) [facility] [place] [address] Referral ID Status Reason Start Date Expiration Date Visits V isits Requested Authorized [id number] Closed Specialty 06/23/2020 12/23/2021 1 1 Service Requested Encounter Details Date Type Department Care Team Description 09/11/[address] [place] [facility] [place]ok Ritchie, Squamous cell carcinoma of e ar, left; [facility] Hyperglycemia [facility] [id number] ONCOLOGY DEPT. [phone] [place] [address] Social History Tobacco Use Types Packs/Day Years [...] Refills Start Date End Date pantothenic Ac-Min Oil-Pet,Hyd Apply 0 (AQUAPHOR) 41 % Ointment topically. acetaminophen (Tylenol) 500 mg Take 1,000 mg 0 Tablet by mouth every 8 hours as needed for Pain. Ibuprofen 200 mg Capsule Take by mouth 0 as needed. nitroGLYcerin (NITROSTAT) 0.4 as needed. 0 2017 mg Tablet, Sublingual ABILIFY 15 mg Tablet Take 15 mg by 0 12/07/2016 mouth daily. metoprolol succinate Take 1 tablet 30 tablet 12 01/08/2013 (TOPROL-XL) 50 mg 24 hr tablet by mouth daily. atorvastatin (LIPITOR) 20 mg Take 40 mg by 0 tablet mouth daily. fenofibrate (TRICOR) 145 mg Take 145 mg by 0 tablet mouth daily. lamoTRIgine (LaMICtal) 200 mg Take 200 mg by 0 Tablet mouth 2 times daily. amitriptyline (ELAVIL) 50 mg Take 100 mg by 0 tablet mouth nightly. aspirin 81 mg EC tablet Take 81 mg by 0 mouth daily. polyethylene glycoL (Miralax) Take 17 g by 0 09/15/2020 17 gram Powder in Packet mouth daily. nystatin (Mycostatin) 100,000 Take 5 mLs by 473 mL 0 03/202009/15/2020 unit/mL SuspensionIndications: mouth 3 times Oral candidiasis daily. white petrolatum-mineral oiL Place 1 each 1 Tube 5 02/2709/15/2020 (Refresh-PM) into the left eye 2 times daily. carboxymethylcellulose (REFRESH Place 2 drops 2 Bottle 0 1 04/28/2019 09/15/2020 PLUS) 0.5 % Dropperette into both eyes 4 times daily. documented as of this encounter Plan of Treatment Upcoming Encounters Date Type Specialty Care Team Description 10/21/2021 Infusion Hematology and Oncology 11/09/2021 Office Visit Hematology and Oncology Alhaji Ritchie MD [facility] DR ONCOLOGY DEPT. [place], [place] [address] (Wo rk) 11/09/2021 Infusion Hematology and Oncology 12/10/2021 Office Visit Dermatology Silas Walters MD [address] DERMATOLOGY [place], [place] [address] (Wo rk) 09/19/2039 Hospital Encounter Surgery Osman Barnett MD [facility] OTOLARYNGOLOGY D EPT. [place], [place] [address] (Wo rk) Scheduled Procedures Name [...] Comme nts CT NECK SOFT TISSUE Routine 09/11/2020 10:42 AM Squamous cell Results for this W CONTRAST EDT carcinoma of ear, procedure are in left the results Hyperglycemia section. documented in this encounter Results CT [...] who have questions please contact the health school childcare attendant that requested your imaging first. ? Narrative [...] ho have questions please contact the health school childcare attendant that requested your imaging first. Ashok Ritchie MD IMG CT ORDERABLES documented in this encounter Visit Diagnoses Diagnosis Squamous cell carcinoma of ear, left Hyperglycemia Other abnormal glucose documented in this encounter Administered Medications Inactive Administered Medications - up to 3 most recent administrations Medication Order MAR Action Action Date Dose Rate Site iohexoL (Omnipaque) (350 mg/mL) Given 09/11/2020 10:43 AM EDT 80 mLs injection solution 0-200 mL 0-200 mL, Intravenous, ONCE PRN, 1 dose, Starting on Jessica 09/11/20 at 1043, Until Jessica 09/11/20 at 1043, Per Protocol, Warning Vesicant/Irritant Medication , Radiology Contrast, Routine documented in this encounter Care Teams Desktop Analyst Relationship Specialty Start Date End Date Tara Joya MD PCP - General Family Medicine 05/16/[address] [place] [address] documented as of this encounter
--- OUTSIDE RECORDS SUMMARY | 2021-10-21 07:58 | XMS_ITS | Encounter Summary ---
:1950 Author Organization [facility] [place] [address] Care Team Providers Name Role Phone Tara Joya MD Primary Care Provider Encounter Details Date Type Department Care Team Description 09/11/2020 Office Visit Radiation Oncology at [facility] Gal[facility], Squamous cell [facility] carcinoma of ear, left [facility] [address] [place] RADIATION ONCOLO [place] [address] [place] [address] [phone] Social History Tobacco Use Types Packs/Day Years Used Date Former Smoker Cigarettes 1 40 Quit: 01/09/20 03 Smokeless Tobacco: Never Used Alcohol Use Standard Drinks/Week Comments No 0 (1 standard drink = 0.6 oz pure alcoho l) Sex Assigned at Date Recorded Not on file documented as of this encounter Last Filed Vital Signs Vital Sign Reading Time Taken Comments Blood Pressure 133/73 09/11/2020 1:43 PM EDT Pulse 83 09/11/2020 1:43 PM EDT Temperature - - Respiratory Rate 17 09/11/2020 1:43 PM EDT Oxygen Saturation 97% 09/11/2020 1:43 PM EDT Inhaled Oxygen Concentration - - Weight 74.8 kg (165 lb) 09/11/2020 1:43 PM EDT Height - - Body Mass Index 24.35 08/29/2020 9:00 AM EDT documented in this encounter Progress Notes Eleazar Galdamez MD - 09/11/2020 2:00 PM EDT Images from the original note [...] Post-therapy course: Time from therapy completion: ~ 3 months INTERVAL HISTORY: no significant issues since his last visit Currently, he has the following symptoms: Symptom Description Intervention Pain Denies Dysphagia Swallowing most foods Xerostomia / Dysgeusia Improving dysgeusia, now mild; improving xerostomia, mild Neck Fibrosis / Lymphedema / Pain Left neck stiff, mildly bothersome Dental / Trismus Seeing dentist, doing fluoride. Trismus to 2 cm. He cracked a tooth using a Therabyte Device. Nutrition Issues / Weight Loss No issues Feeding Tube Present, not using x 10 days Skin Denies Otalgia / Hearing Changes No [...] confined to bed or chair EXAM Vitals: 09/11/20 1343 BP: 133/73 Patient Position: Sitting Pulse: 83 Resp: 17 SpO2: 97% Weight: 74.8 kg (165 lb) Physical Exam Constitutional: Appearance: He is well-developed. [...] Behavior normal. Procedures: HISTORY Allergies as of 09/11/2020 - Review Complete 09/11/2020 Allergen Reaction Noted ??? Penicillins ??? Codeine phosphate No past medical history on file. Past Surgical History: Procedure Laterality Date ??? IR MEDIPORT PLACEMENT/EXCHANGE 04/08/2020 IR Mediport Placement 04/08/2020 Mann Escobar APRN [facility] INTERVENTIONL RAD ??? KIDNEY STONE SURGERY ??? PRG SOMATOSENSORY TEST, ANY/ALL PER. NERVES, TRUNK OR HEAD N/A 02/20/2020 FACIAL NERVE MONITORING, SETUP PERIPHERAL (WRVU 0.54) performed by Osman Barnett MD at [facility] MAIN OR ??? PRO ADJ TISS TRANSFER/REARRANGEMENT ANY AREA 30.1-60 SQCM Left 02/20/2020 ADJACENT TISSUE TRANSFER OR REARRANGEMENT; 30.1 TO 60.0 SQ CM, THORAX (WRVU 12.65) performed by Osman Barnett MD at [facility] MAIN OR ??? PRO ADJ TISS TRANSFER/REARRANGEMENT ANY AREA EA ADDL 30SQCM Left 02/20/2020 ADJACENT TISSUE TRANSFER OR REARRANGEMENT; EA ADD'L 30.0 SQ CM, OR PART OF (WRVU 3.73) performed byOsman Barnett MD at [facility] MAIN OR ??? PRO COLONOSCOPY, REMV LESN, SNARE N/A 07/07/2015 COLONOSCOPY, POLYPECTOMY, REMOVAL LESION BY SNARE performed by Jose Manuel Heller MD at [facility] ENDOSCOPY ??? PRO EXC PAROTD, TOTAL, DISSECT 5TH NERV Left 02/20/2020 EXCISION OF PAROTID TUMOR OR PAROTID GLAND, TOTAL, WITH DISSECTION AND PRESERVATION OF FACIAL NERVE(WRVU 19.53) performed by Osman Barnett MD at [facility] MAIN OR ??? PRO EXC SKIN MALIG 3.1-4CM FACE, FACIAL Left 02/20/2020 EXC MALIGNANT LESION, 3.1 TO 4.0CM, FACE (WRVU 4.34) performed by Osman Barnett MD at [facility] MAIN OR ? ? PRO EXC SKIN MALIG >4CM FACE, FACIAL Left 02/20/2020 EXC MALIGNANT LESION, >4.0CM, EARS (WRVU 6.26) performed by Osman Barnett MD at [facility] VANNESA ??? PRO LARYNGOSCOPY, DIRECT, DX, OP MICROSCOP N/A 05/13/2020 LARYNGOSCOPY, WITH MICROSCOPE (WRVU 2.57) performed by Osman Barnett MD at [facility] MAIN OR ??? PRO MICROSURG TECHNIQUES, REQ OPER MICROSCOPE N/A 02/20/2020 MICROSCOPE USE (WRVU 3.46) performed by Neo Gilman MD at [facility] MAIN OR ??? PRO MUSCLE-SKIN FLAP, TRUNK Left 02/20/2020 FLAP, MYOCUTANEOUS OR FASCIOCUTANEOUS, TRUNK (WRVU 19.86) performed by Osman Barnett MD at [facility] MAIN OR ??? PRO PLACE PERCUT GASTROSTOMY TUBE N/A 05/13/2020 ENDOSCOPY W DIRECTED PLACEMENT PERCUTANEOUS GASTROSTOMY TUBE-PEG (WRVU 3.66) performed by Trent Wood MD at [facility] MAIN OR ??? PRO REMOVAL NODES, NECK, CERV MOD RAD Left 02/20/2020 @CERVICAL LYMPHADENECTOMY (MODIFIED RADICAL NECK DISSECTION) (WRVU 23.95) performed by Osman Barnett MD at [facility] MAIN OR ??? PRO RESECT TEMPORAL BONE, SUPERINTENDENT TRANSPORTATION APPRCH Left 02/20/2020 @RESECTION TEMPORAL BONE, EXTERNAL APPROACH (WRVU 37.42) performed by Neo Gilman MD at [facility] [place] ??? PRO TEMP CLOSURE EYELID BY SUTURE Left 05/13/2020 TEMPORARY CLOSURE OF EYELID BY SUTURE, TARSORRHAPHY (WRVU 1.35) performed by Osman Barnett MD at [facility] MAIN OR Social History Socioeconomic History ??? [...] with his of 49 years in [employer]. 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 Two adult sons live in this building and are involved in pt's care. Social Determinants of Health Financial Resource Strain: ??? Difficulty of Paying Living Expenses: Food Insecurity: ??? Worried About Running Out of Food in the Last Year: ??? Ran Out of Food in the Last Year: Transportation Needs: ??? Lack of Transportation (Medical): ??? Lack of Transportation (Non-Medical): Physical Activity: ??? Days of Exercise per Week: ??? Minutes of Exercise per Session: Family History Problem Relation Age of Onset [...] Take 81 mg by mouth daily. ??? polyethylene glycoL [...] into the left eye 2 times daily. (Patientnot taking: Reported on 09/11/2020) 1 Tube 5 ??? carboxymethylcellulose (REFRESH PLUS) 0.5 % [address] 2 drops into both eyes 4 times daily. (Patient not taking: Reported on 09/11/2020) 2 Bottle 0 ??? nitroGLYcerin (NITROSTAT) 0.4 mg Tablet, Sublingual as needed. Current Facility-Administered Medications on File Prior to Visit Medication Dose Route Frequency Provider Last Rate Last Admin ??? [COMPLETED] iohexoL (Omnipaque) (350 mg/mL) injection solution 0-200 mL 0- 200 mL Intravenous Once PRN Mitch Carvajal, DO 80 mL at 09/11/20 1043 IMAGING/LAB I have personally reviewed the imaging [...] No evidence of recurrent or progressive disease. ASSESSMENT / PLAN Disease Status: LIZZIE ?? We discussed that he is still at risk of recurrence and requires continued surveillance Toxicity: ?? Dysgeusia: improving dramatically, no longer requiring PEG tube due to same. Will place order for PEG tube removal ?? Xerostomia: discussed expectation of improvement, biotene, BSSW ?? Dental: following with dentistry. Needs tooth removed, will contact dentist ?? Thyroid Function: not yet checked, will check in near future FU: follow per HN grid documented in this encounter Plan of Treatment Upcoming Encounters Date Type Specialty Care Team Description 10/21/2021 Infusion Hematology and Oncology 11/09/2021 Office Visit Hematology and Oncology Alhaji Ritchie MD [facility] DR ONCOLOGY DEPT. [place], [place] [address] (Wo rk) 11/09/2021 Infusion Hematology and Oncology 12/10/2021 Office Visit Dermatology Silas Walters MD [address] DERMATOLOGY [place], [place] [address] (Wo rk) 09/19/2039 Hospital Encounter Surgery Osman Barnett MD [facility] OTOLARYNGOLOGY D EPT. [place], [place] [address] (Wo rk) Scheduled Procedures Name [...] left documented in this encounter Care Teams Waist Cutter Relationship Specialty Start Date End Date Tara Joya MD PCP - General Family Medicine 05/16/[address] [place] [address] documented as of this encounter
--- OUTSIDE RECORDS SUMMARY | 2021-10-21 07:58 | XMS_ITS | Encounter Summary ---
:1950 Author Organization [facility] [place] [address] Care Team Providers Name Role Phone Tara Joya MD Primary Care Provider [phone] Reason for Visit - Closed Specialty Diagnoses / Procedures Referred By Contact Refer red To Contact Procedures Tara Joya MD Film Library- Storage Only DX [address] [place] [address] Referral ID Status Reason Start Date Expiration Date Visits Requ ested Visits Authorized [id number] Closed 07/18/2020 07/18/2021 1 1 Encounter Details Date Type Department Care Team Description 07/16/2020 Ancillary Procedure Radiology Library at [facility] MD Kenzie [facility] [address] [place] [address] [place] [address] [phone] (Wo rk) Social History Tobacco Use Types [...] Alhaji Ritchie MD [facility] DR ONCOLOGY DEPT. [place], [place] [address] (Wo rk) 11/09/2021 Infusion Hematology and Oncology 12/10/2021 Office Visit Dermatology Silas Walters MD [address] DERMATOLOGY [place], [place] [address] (Wo rk) 09/19/2039 Hospital Encounter Surgery Osman Barnett MD [facility] OTOLARYNGOLOGY D EPT. [place], [place] [address] (Wo [...] Name Priority Date/Time Associated Diagnosis Comme nts FILM LIBRARY Routine 07/16/2020 12:00 AM Results for this STORAGE ONLY DX EDT procedure are in STUDY the results section. documented in this encounter Results Film Library- Storage Only DX Study (07/16/2020 12:00 AM EDT) Specimen (Source) Anatomical Location Collection Method / Collectio n Time Received Time / Laterality Volume Narrative RAD - 07/18/2020 4:16 PM EDT This exam is auto-finalizing. It's purpo se is for storage only. Tara Joya MD IMG FILM LIBRARY ORDERABLES Performing Organization Address City/State/ZIP Code Phon e Number RAD [place], [place] documented in this encounter Visit Diagnoses Not on filedocumented in this encounter Care Teams Emergency Services Dispatcher Relationship Specialty Start Date End Date Tara Joya MD PCP - General Family Medicine 05/16/[address] [place] [address] documented as of this encounter
--- OUTSIDE RECORDS SUMMARY | 2021-10-21 07:58 | XMS_ITS | Encounter Summary ---
:1950 Author Organization [facility] [place] [address] Care Team Providers Name Role Phone Tara Joya MD Primary Care Provider [phone] Encounter Details Date Type Department Care Team Description 06/04/2020 Office Visit Radiation Oncology at [facility]z, Squamous cell [facility] carcinoma of [address] [address] RADIATION ONCOLOGY [phone] [place] [id number] Social History Tobacco Use Types Packs/Day Years Used Date Former Smoker Cigarettes 1 40 Quit: 01/09/20 03 Smokeless Tobacco: Never Used Alcohol Use Standard Drinks/Week Comments No 0 (1 standard drink = 0.6 oz pure alcoho l) Sex Assigned at Date Recorded Not on file documented as of this encounter Last Filed Vital Signs Vital Sign Reading Time Taken Comments Blood Pressure 123/77 06/04/2020 9:52 AM EDT Pulse 96 06/04/2020 9:52 AM EDT Temperature 36.7 ??C (98.1 ??F) 06/04/2020 9:52 AM EDT Respiratory Rate 18 06/04/2020 9:52 AM EDT Oxygen Saturation 100% 06/04/2020 9:52 AM EDT Inhaled Oxygen Concentration - - Weight 67.9 kg (149 lb 12.8 oz) 06/04/2020 9:52 AM EDT Height - - Body Mass Index 21.8 05/28/2020 11:45 AM EST documented in this encounter Progress Notes Eleazar Galdamez MD - 06/04/2020 9:30 AM EDT FOLLOW UP VISIT NOTE Ward [...] tube site Skin: no symptoms GI: -N/V: stable miinimal nausea marinol, zyprexa, compazine, ondansetron, MJ, lorazepam prn -Bowels: no issues Eye: improved since tarsorrhaphy Nutrition Assessment: Weight : 77.6 kg initial Change: 71.3 => 67.9 Objective: SKIN: mild skin erythema left neck improving desquamation under ear remnant MUCOSA: minimal mucositis left buccal mucosa, very dry Eye: s/p tarsorrhaphy G-tube: erythema around site under bumper. Stable Assessment: Mild skin toxicity, tolerating. Weight loss but tolerating TF. CTCAE TOXICITY GRADES (see below for mcneal): Site Grade Skin 1 Xerostomia 2 Pharyngeal Mucositis 1 Dysphagia 0 Hoarseness 0 TREATMENT RESPONSE: No change Plan: ?? Pain control: ?? OTC medications ?? Skin: Aquaphor cream prn ?? Mucositis: ?? Pain control: see above ?? Oral hygiene consisting of baking soda/salt rinse at least 8 times daily ?? Alimentation: hospital education coordinator following ?? Weight stable, all via G tube. Asked to increase, to meet with hospital education coordinator to discuss. ?? G tube: s/p adjustment, doing well ?? N/V: medications as noted above, improved ?? Eye: s/p tarsorrhaphy ?? FU: to see me next week via TH call. CTCAE v4.03 scales for reference Skin 0 [...] Visit Hematology and Oncology Alhaji Ritchie MD [facility] DR ONCOLOGY DEPT. [place], [place] [address] (Jin carson) 11/09/2021 Infusion Hematology and Oncology 12/10/2021 Office Visit Dermatology Silas Walters MD [address] [place] [address] DERMATOLOGY [place], [place] [address] (Jin carson) 09/19/2039 Hospital Encounter Surgery Paydarfar, Osman A, MD [facility] OTOLARYNGOLOGMelvin Su EPT. [place], [place] [address] (Wo rk) Scheduled Procedures Name [...] face documented in this encounter Care Teams Mail Service Coordinator Relationship Specialty Start Date End Date Tara Joya MD PCP - General Family Medicine 05/16/[address] [address] documented as of this encounter
--- OUTSIDE RECORDS SUMMARY | 2021-10-21 07:58 | XMS_ITS | Encounter Summary ---
:1950 Author Organization [facility] [place] [address] Care Team Providers Name Role Phone Tara Joya MD Primary Care Provider [phone] Encounter Details Date Type Department Care Team Description 07/16/2020 Office Visit Radiation Oncology at [facility] Gal[facility]z, Squamous cell [facility] carcinoma of ear, left [address] [place] [address] RADIATION ONCOLOGY [phone] [place] [id number] Social History Tobacco Use Types Packs/Day Years Used Date Former Smoker Cigarettes 1 40 Quit: 01/09/20 03 Smokeless Tobacco: Never Used Alcohol Use Standard Drinks/Week Comments No 0 (1 standard drink = 0.6 oz pure alcoho l) Sex Assigned at Date Recorded Not on file documented as of this encounter Last Filed Vital Signs Vital Sign Reading Time Taken Comments Blood Pressure 97/82 07/16/2020 1:43 PM EDT Pulse 90 07/16/2020 1:43 PM EDT Temperature 36.8 ??C (98.3 ??F) 07/16/2020 1:43 PM EDT Respiratory Rate 18 07/16/2020 1:43 PM EDT Oxygen Saturation 98% 07/16/2020 1:43 PM EDT Inhaled Oxygen Concentration - - Weight 73.9 kg (163 lb) 07/16/2020 1:43 PM EDT Height - - Body Mass Index 24.07 06/25/2020 10:56 AM EDT documented in this encounter Progress Notes Eleazar Galdamez MD - 07/16/2020 1:30 PM EDT FOLLOW UP VISIT NOTE Ward Santamaria [...] irritation, stitches appear to have given out. Mild epiphora. Nutrition Assessment: Weight : 77.6 kg initial Change: 72.1 => 73.9 Objective: SKIN: no erythema, mild dryness MUCOSA: no mucositis, very dry Eye: s/p tarsorrhaphy, but stable drooping of eye, mild epiphora G-tube: erythema around site under bumper. Stable. Assessment: Toxicity improving, overall doing well. Big issue is dysgeusia and limited oral intake. He will [...] at least 8 times daily ?? Alimentation: service person following ?? Weight stable, all via G tube. Increasing oral intake ?? G tube: s/p adjustment, doing well ?? N/V: resolved ?? Eye: s/p tarsorrhaphy. Dr. Barnett to evaluate and see if repeat TR indicated. ?? FU: two weeks CTCAE v4.03 scales for reference Skin [...] Visit Hematology and Oncology Alhaji Ritchie MD [facility] DR ONCOLOGY DEPT. [place], [place] [address] (Jin carson) 11/09/2021 Infusion Hematology and Oncology 12/10/2021 Office Visit Dermatology Silas Walters MD [address] [place] [address] DERMATOLOGY [place], [place] [address] (Jin carson) 09/19/2039 Hospital Encounter Surgery Osman Barnett MD [facility] OTOLARYNGOLOGY Sharlene EPT. [place], [place] [address] (Wo rk) Scheduled Procedures [...] left documented in this encounter Care Teams Male Infertility Specialist Relationship Specialty Start Date End Date Tara Joya MD PCP - General Family Medicine 05/16/[address] [place] [address] documented as of this encounter
--- OUTSIDE RECORDS SUMMARY | 2021-10-21 07:58 | XMS_ITS | Encounter Summary ---
:1950 Author Organization [facility] [place] [address] Care Team Providers Name Role Phone Tara Joya MD Primary Care Provider [phone] Encounter Details Date Type Department Care Team Description 06/11/2020 Office Visit Radiation Oncology at Eleazar Galdamez, Squamous cell [facility] carcinoma of [address] [address] RADIATION ONCOLOGY [phone] [place] [phone] Social History Tobacco Use Types Packs/Day Years Used Date Former Smoker Cigarettes 1 40 Quit: 01/09/20 03 Smokeless Tobacco: Never Used Alcohol Use Standard Drinks/Week Comments No 0 (1 standard drink = 0.6 oz pure alcoho l) Sex Assigned at Date Recorded Not on file documented as of this encounter Last Filed Vital Signs Vital Sign Reading Time Taken Comments Blood Pressure 135/89 06/11/2020 2:49 PM EDT Pulse 99 06/11/2020 2:49 PM EDT Temperature 37.2 ??C (99 ??F) 06/11/2020 2:49 PM EDT Respiratory Rate - - Oxygen Saturation 98% 06/11/2020 2:49 PM EDT Inhaled Oxygen Concentration - - Weight 67.1 kg (148 lb) 06/11/2020 2:49 PM EDT Height - - Body Mass Index 21.55 06/10/2020 1:03 PM EDT documented in this encounter Progress Notes Eleazar Galdamez MD - 06/11/2020 2:30 PM EDT FOLLOW UP VISIT NOTE Ward Santamaria is a 69 y.o. 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 Adjuvant chemoradiotherapy completed 05/28/20. Changes in medical condition General: he became lightheaded and fell, resulting in minor forehead lacerations. Saw his PCP, no concern for concussion. Pain: denies oropharyngeal pain Secretions/Dryness: moderate xerostomia, severe dysgeusia. Using BSSW. Swallowing Function: no issues excepting dryness Nutrition: minimal by mouth, just liquids. Limited by dysgeusia G-tube: TF going well, stable redness associated with his feeding tube site. To add free water, working with RD. Skin: no symptoms GI: -N/V: resolved -Bowels: no issues Eye: increasing drooping and irritation, stitches appear to have given out Nutrition Assessment: Weight : 77.6 kg initial Change: 67.9 => 67.3 Objective: SKIN: no erythema, mild dryness, area of most desquamation now dry MUCOSA: no mucositis, very dry Eye: s/p tarsorrhaphy, but increased drooping of eye, stiches appear to have given G-tube: erythema around site under bumper. Stable Assessment: Mild skin toxicity, tolerating. Weight stable. Likely episode of dehydration resulting in fall, now adding free water via TF. CTCAE TOXICITY GRADES (see below for mcneal): Site Grade Skin 1 Xerostomia 2 Pharyngeal Mucositis 0 Dysphagia 0 Hoarseness 0 TREATMENT RESPONSE: No change Plan: ?? Pain control: ?? OTC medications ?? Skin: Aquaphor cream prn ?? Mucositis: ?? Pain control: see above ?? Oral hygiene consisting of baking soda/salt rinse at least 8 times daily ?? Alimentation: release manager following ?? Weight stable, all via G tube. ?? G tube: s/p adjustment, doing well [...] and Oncology Alhaji Ritchie MD [facility] DR ONCOLOGY DEPT. [place], [place] [address] (Jin carson) 11/09/2021 Infusion Hematology and Oncology 12/10/2021 Office Visit Dermatology Silas Walters MD [address] [place] [address] DERMATOLOGY [place], [place] [address] (Jin carson) 09/19/2039 Hospital Encounter Surgery Osman Barnett MD [facility] OTOLARYNGOLOGY Sharlene EPT. [place], [place] [address] (Jin carson) Scheduled Procedures Name [...] face documented in this encounter Care Teams Staple Laster Relationship Specialty Start Date End Date Tara Joya MD PCP - General Family Medicine 05/16/[address] [place] [address] documented as of this encounter
--- OUTSIDE RECORDS SUMMARY | 2021-10-21 07:58 | XMS_ITS | Encounter Summary ---
:1950 Author Organization [facility] [place] [address] Care Team Providers Name Role Phone Tara Joya MD Primary Care Provider [phone] Encounter Details Date Type Department Care Team Description 06/23/2020 Office Visit Hematology/Oncology at Caterina Aguirre, Catie uamous cell [facility] RD carcinoma of ear, left [address] [place] [phone] Social History Tobacco Use Types Packs/Day Years Used Date Former Smoker Cigarettes 1 40 Quit: 01/09/20 03 Smokeless Tobacco: Never Used Alcohol Use Standard Drinks/Week Comments No 0 (1 standard drink = 0.6 oz pure alcoho l) Sex Assigned at Date Recorded Not on file documented as of this encounter Progress Notes Caterina Aguirre RD - 06/23/2020 1:30 PM EDT [facility] Dietitian Follow Up Patient Name: Ward Santamaria Diagnosis: Squamous cell carcinoma of ear, left Seen By: Caterina Aguirre RD LD Reason for assessment: EN support Assessment: HPI Patient Active Problem List Diagnosis Code ??? [...] ??? 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 as calculated from the following: Height as of an earlier encounter on 06/23/20: 176.5 cm (5' 9.49). Weight as of an earlier encounter on 06/23/20: 71.8 kg (158 lb 6.4 oz). Wt Readings from Last 3 Encounters: 06/23/20 71.8 kg (158 lb 6.4 oz) 06/11/20 67.1 kg (148 lb) 06/10/20 66.8 kg (147 lb 3.2 oz) Weight at start of treatment: 171 lbs on 04/10/20 Weight trending back up. reports weighing patient on home scale as well to continue to monitor. Medications: reviewed, PCP added glipizide Labs: reviewed, BG 302, sodium 135 Nutrition Screen 06/24/2020 Reason for assessment EN support Total MST Score - Functional Status 06/24/2020 Appetite Similar compared to usual intake Early satiety Absent Blood glucose levels Hypergylcemic Nausea Grades None Vomiting Grades None Diarrhea Grades None Xerostomia Present Dysgeusia Present Abdominal pain Absent Mouth discomfort is improving. However, dysgeusia is limiting oral intake at this time. Food History, Access and Intake 06/24/2020 Patient Reported Diet G-tube dependent He has begun taking his pills with ice cream or applesauce. He is connected to [facility] and will begin therapy this month. Nutrition Support 06/24/2020 Are you receiving enteral, parenteral or venting support? Yes Select support type Enteral G/J tube: when was it placed? 05/13/2020 How was it placed? Surgically Currently using tube? Yes How is nutrition being delivered? [place] Tube feeding formula and rate Nutren 2.0 Home care vendor [employer] [place] before/after feedings with: 60 mls Current regimen: 6 cartons of Nutren 2.0 formula providing 3000 calories, 126 grams protein, and 1038 ml water. Using 2 cartons per feeding estimates providing at least 2 L additional water via water flushes. Nutrition Diagnosis 06/24/2020 Problems Inadequate oral intake Etiology (related to) Daily H/N radiation therapy Signs and Symptoms > 5 % uinintentional weight loss in 1 month (Severe) Above nutrition diagnosis improved with initiation of enteral nutrition. Nutrition Intervention: ? Continue current tube feeding regimen; BG management per PCP ? Discussed gradual weaning down of formula as patient transitions to oral intake ? Suggested beginning with soft, blander foods, such as cream of wheat, to minimize irritation Monitoring and Evaluation: Will follow up in 3-[address] documented in this encounter Plan of Treatment Upcoming Encounters Date Type Specialty Care Team Description 10/21/2021 Infusion Hematology and Oncology 11/09/2021 Office Visit Hematology and Oncology Alhaji Ritchie MD [facility] DR ONCOLOGY DEPT. [place], [place] [address] (Jin carson) 11/09/2021 Infusion Hematology and Oncology 12/10/2021 Office Visit Dermatology Silas Walters MD [address] [place] [address] RD DERMATOLOGY [place], [place] [address] (Jin carson) 09/19/2039 Hospital Encounter Surgery Osman Barnett MD [facility] OTOLARYNGOLOGY D EPT. [place], [place] [address] (Jin carson) Scheduled Procedures Name [...] left documented in this encounter Care Teams Laboratory Chemical Assistant Relationship Specialty Start Date End Date Tara Joya MD PCP - General Family Medicine 05/16/[address] [place] [address] documented as of this encounter
--- OUTSIDE RECORDS SUMMARY | 2021-10-21 07:58 | XMS_ITS | Encounter Summary ---
:1950 Author Organization [facility] [address] Care Team Providers Name Role Phone Tara Joya MD Primary Care Provider [phone] Encounter Details Date Type Department Care Team Description 07/30/2020 Office Visit Hematology/Oncology at Gilda Jameson P arotid mass; [facility] MARINE INSURANCE CLAIM EXAMINER Dysphagia, unspecified type [address] [place] [phone] Social History Tobacco Use Types Packs/Day Years Used Date Former Smoker Cigarettes 1 40 Quit: 01/09/20 03 Smokeless Tobacco: Never Used Alcohol Use Standard Drinks/Week Comments No 0 (1 standard drink = 0.6 oz pure alcoho l) Sex Assigned at Date Recorded Not on file documented as of this encounter Miscellaneous Notes Treatment - Therapy - Gilda Jameson SLP - 07/30/2020 9:30 AM EDTSummary: MARINE INSURANCE CLAIM EXAMINER Treatment Note Speech Language Pathology Treatment Note Patient Profile: Ward Santamaria is a 69 y.o. 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 Chemo/RT completed 05/28/20. VFSE/MBSS completed 07/16 at [facility]. HPI: Patient Active Problem List Diagnosis [...] Z45.2 ??? Chemotherapy-induced nausea R11.0, T45.1X5A Subjective: Wardgali Sanatmaria seen in clinic today for follow up visit to review outcomes from VFSE/MBSS (07/16) / discuss dysphagia management and trismus monitoring; spouse Nika also present for continuededucation. Patient reports he is tolerating IDDSI Level 4 solids (pureed texture); however continues to be significantly inhibited by reduced taste at this time. Spouse reports patient has lost a couple pounds over past few weeks; extra padding with Orastretch has not been helpful, but discussed adding additional padding to continue with trismus exercise which patient and spouse were agreeable to; patient asked to bring in Orastretch device to next appt for con tinued troubleshooting as needed. Pt reports he tried hamburger (1/4 of hamburger and some macedonian fries); spouse reports patient has always been a picky eater. Patient reports he may be willing to try breakfast sausage, hot dog, fish & chips (cod) to explore additional IDDSI Level 6/7 foods as he transitions back to increasing frequency of PO intake. Objective: Pain: 0/10 Respiratory Status: Room air [...] mm 07/09/20: 33 mm 07/30/20: 31 mm Mild (30-34 mm) (Missael et al, 2006) Initial SUNITA:DNT Tissue Manipulation: Completed Stretch/Massage routine Passive exercise with ARK-J Level 2 Device Hold 10 secs / 3 reps, 3 sets 3x/day Reported pain at 2-3 / 10 (subsides with repetition) Active jaw ROM exercise: Discussed continued use of gum for ROM Ending SUNITA: DNT ?? Dentition: WFL Last Dentist Visit: March [...] Continuation of thorough oral care, active ROM exercise, importance of trying foods/flavors - Discussed outcomes from VFSS/MBSS and use of effortful swallow x1-2 after every bite of solid food(effort level at 7-8/10) to address vallecular residue and function as swallowing exercise, followedby thin liquid wash and effortful swallow -Discussed monitoring for overt s/sx aspiration with mixed consistencies (ie pills in ice cream in evening, if overt s/sx are noted, switch to pills in more viscous texture, such as pudding/oatmeal etc, and follow with thin liquid wash) - Reviewed ARK-J stretch/massage routine to perform prior to use of Orastretch device, with associated precautions (ie if pain is above 5/10 during any aspect of routine, stop until able to consult with MD or MARINE INSURANCE CLAIM EXAMINER) - Risk Management Compensatory Techniques/Precautions: Slow Rate, Small Bites and Small Sips Alternate liquids/solids Upright position during meals and for at least 30 mins following Sensory enhancement (flavor, texture, temperature) as tolerated Excellent oral care Avoidance of aggressive jaw stretching unless approved by MARINE INSURANCE CLAIM EXAMINER, given risks of ORN Pt/spouse able to demonstrate comprehension of all recommendations. Assessment Ward Santamaria demonstrates continued oropharyngeal dysphagia and mild trismus (SUNITA at 31mm)with gradually reduced associated jaw pain at this time; reduced po intake is mainly from dysguesia at this time, oropharyngeal swallowing appears adequate for full return to oral diet as tolerated, com plicated by continued trismus and mild pharyngeal atrophy. Patient participated in further motivational interview re: daily routine and ultimate goals of trismus and dysphagia therapy (ie, returning tofull oral diet ,less reliance on tube feeding for nutritional support). Spouse Nika continues to provide much needed support/encouragement for patient to carryover recommendations at home. Diagnosis: Oropharyngeal dysphagia, trismus Recommendations: Diet: Solids as tolerated IDDSI Level 6/7 as tolerated, Level 0 - thin liquids, may increase viscosity if overt s/sx aspiration are noted, encourage follow up with MARINE INSURANCE CLAIM EXAMINER in this case PO medications: as tolerated [...] In Progress Plan: Discussed subsequent visit for 08/13. Pt./family are in agreement with treatment plan. Please feel free to call me with any questions or concerns regarding Ward Santamaria's care. Gilda Jameson MA [facility]-MARINE INSURANCE CLAIM EXAMINER Speech-Language Pathologist [email or web address] documented in this encounter Plan of Treatment Upcoming Encounters Date Type Specialty Care Team Description 10/21/2021 Infusion Hematology and Oncology 11/09/2021 Office Visit Hematology and Oncology Alhaji Ritchie MD [facility] DR ONCOLOGY DEPT. [place], [place] [address] (Wo rk) 11/09/2021 Infusion Hematology and Oncology 12/10/2021 Office Visit Dermatology Silas Walters MD [address] DERMATOLOGY [place], [place] [address] (Wo rk) 09/19/2039 Hospital Encounter Surgery Osman Barnett MD [facility] OTOLARYNGOLOGY D EPT. [place], [place] [address] (Wo rk) Scheduled Procedures Name [...] type documented in this encounter Care Teams Content Assistant Relationship Specialty Start Date End Date Tara Joya MD PCP - General Family Medicine 05/16/[address] [place] [address] documented as of this encounter
--- OUTSIDE RECORDS SUMMARY | 2021-10-21 07:58 | XMS_ITS | Encounter Summary ---
:1950 Author Organization [facility] [place] [address] Care Team Providers Name Role Phone Tara Joya MD Primary Care Provider [phone] Encounter Details Date Type Department Care Team Description 06/09/2020 Telephone Hematology/Oncology at Caterina Lopez RD [address] [phone] Social History Tobacco Use Types Packs/Day Years Used Date Former Smoker Cigarettes 1 40 Quit: 01/09/20 03 Smokeless Tobacco: Never Used Alcohol Use Standard Drinks/Week Comments No 0 (1 standard drink = 0.6 oz pure alcoho l) Sex Assigned at Date Recorded Not on file documented as of this encounter Miscellaneous Notes Telephone Encounter - Caterina Aguirre RD - 06/09/2020 8:52 AM EDT Nutrition Follow Up - phone call Spoke with , Nika, on phone to check in. Trial of Nutren 2.0 was well tolerated by patient. She gradually switched patient from Nutren 1.5 to Nutren 2.0 formula using donated formula provided last week. Patient had been unable to maintain his weight using 6 cartons of Nutren 1.5 formula (previous order). Yesterday was first day he used 6 cartons of Nutren 2.0. noticed his weight dropped 2 lbs, but feels this might have to do with dehydration as patient is not drinking any fluids by mouth and has not been administering as many additional water flushes as he needs. Discussed continuing with 6 cartons of Nutren 2.0 and also focusing on extra hydration via tube as well. Will update orders with NE. will continue to monitor weight. He returns to clinic on 06/11 for follow up with Dr. Galdamez. 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 Ht/Weight: Wt Readings from Last 3 Encounters: 06/04/20 67.9 kg (149 lb 12.8 oz) 05/28/20 70 kg (154 lb 6.4 oz) 05/28/20 71.4 kg (157 lb 6.4 oz) Estimated body mass index is 21.8 kg/m?? as calculated from the following: Height as of 05/28/20: 176.5 cm (5' 9.5). Weight as of 06/04/20: 67.9 kg (149 lb 12.8 oz). Estimated Kcal: 2400- 2700 kcal (35-40 kcal/kg) Estimated Protein needs: 122 gm/day (1.8 g/kg) Estimated Fluid needs: 2.4+ L/day Goal : 6 cans/day Method of Feeding: [employer] (CPT B4036) Recommend 6 cans of Nutren 2.0 via G-tube/day to provide 3000 kcal, 126 gm of protein and 1038mLs offree water. [employer]on feeding method at 2 cans per feeding over 60 minutes for 3 times/d. Patient will need minimum of 1400 ml water as water flushes. Patient needs TF for > 90 days. Pt will need 11 refills. Pt needs pole, syringes, flexi-traks, and gravity bags. Pt DOES NOT need VNA services at this time. [employer] 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 documented in this encounter Plan of Treatment Upcoming Encounters Date Type Specialty Care Team Description 10/21/2021 Infusion Hematology and Oncology 11/09/2021 Office Visit Hematology and Oncology Alhaji Ritchie MD [facility] DR ONCOLOGY DEPT. [place], [place] [address] (Wo rk) 11/09/2021 Infusion Hematology and Oncology 12/10/2021 Office Visit Dermatology Silas Walters MD [address] [place] [address] RD DERMATOLOGY [place], [place] [address] (Wo rk) 09/19/2039 Hospital Encounter Surgery Osman Barnett MD [facility] OTOLARYNGOLOGY D EPT. [place], [place] [address] (Wo rk) Scheduled Procedures Name [...] on filedocumented in this encounter Care Teams Mail Room Clerk Relationship Specialty Start Date End Date Tara Joya MD PCP - General Family Medicine 05/16/[address] [place] [address] documented as of this encounter
--- OUTSIDE RECORDS SUMMARY | 2021-10-21 07:58 | XMS_ITS | Encounter Summary ---
:1950 Author Organization [facility] [place] [address] Care Team Providers Name Role Phone Tara Joya MD Primary Care Provider Encounter Details Date Type Department Care Team Description 06/10/2020 Notes Only Hematology/Oncology at Mariela Gallardo MSW [facility] OFFICE OF CARE [address] [place] [phone] Social History Tobacco Use Types Packs/Day Years Used Date Former Smoker Cigarettes 1 40 Quit: 01/09/20 03 Smokeless Tobacco: Never Used Alcohol Use Standard Drinks/Week Comments No 0 (1 standard drink = 0.6 oz pure alcoho l) Sex Assigned at Date Recorded Not on file documented as of this encounter Progress Notes Mariela Gallardo MSW - 06/10/2020 1:48 PM EDT Follow up with pt during his infusion visit today. He indicated he is doing the best he can. He is taking each day as it comes. His continues as his primary support. She is working remotely so sheis available to him as needed. Pt did not identify any new needs at this time. Offered support. Reminded pt of ENERGY SYSTEMS ENGINEER availability and contact information. Will continue to follow. documented in this encounter Plan of Treatment Upcoming Encounters Date Type Specialty Care Team Description 10/21/2021 Infusion Hematology and Oncology 11/09/2021 Office Visit Hematology and Oncology Alhaji Ritchie MD [facility] DR ONCOLOGY DEPT. [place], [place] [address] (Wo rk) 11/09/2021 Infusion Hematology and Oncology 12/10/2021 Office Visit Dermatology Silas Walters MD [address] [facility] [address] [facility] [address] DERMATOLOGY [place], [place] [address] (Wo rk) 09/19/2039 Hospital Encounter Surgery Osman Barnett MD [facility] OTOLARYNGOLOGY D EPT. [place], [place] [address] (Wo rk) Scheduled Procedures Name [...] on filedocumented in this encounter Care Teams Display Card Writer Relationship Specialty Start Date End Date Tara Joya MD PCP - General Family Medicine 05/16/[address] [place] [address] documented as of this encounter
--- OUTSIDE RECORDS SUMMARY | 2021-10-21 07:58 | XMS_ITS | Encounter Summary ---
:1950 Author Organization [facility] [place] [address] Care Team Providers Name Role Phone Tara Joya MD Primary Care Provider [phone] Reason for Referral Diagnostic Test (Routine) - Closed Specialty Diagnoses / Procedures Referred By Contact Refer red To Contact Radiology Diagnoses Squamous cell carcinoma of ear, left Ashok Ritchie MD [facility] Interventionl Rad Procedures IR [facility] [place] [address] [place] [address] Referral ID Status Reason Start Date Expiration Date Visits V isits Requested Authorized [id number] Closed Specialty 09/15/2020 03/17/2022 1 1 Service Requested Reason for Visit Diagnostic Test (Routine) - Closed Specialty Diagnoses / Procedures Referred By Contact Refer red To Contact Radiology Diagnoses Squamous cell carcinoma of ear, left Ashok Ritchie MD [facility] Interventionl Rad Procedures IR [facility] [place] [address] [place] [address] Referral ID Status Reason Start Date Expiration Date Visits V isits Requested Authorized [id number] Closed Specialty 09/15/2020 03/17/2022 1 1 Service Requested Encounter Details Date Type Department Care Team Description 09/19/2020 Hospital Encounter Radiology [place] [facility] [place]au, Ashok H, Squamous cell [facility] carcinoma of ear, [facility] [place], [place] [facility] [address] ONCOLOGY DEPT. [phone] [place] [address] Social History Tobacco Use Types Packs/Day Years Used Date Former Smoker Cigarettes 1 40 Quit: 01/09/20 03 Smokeless Tobacco: Never Used Alcohol Use Standard Drinks/Week Comments No 0 (1 standard drink = 0.6 oz pure alcoho l) Sex Assigned at Date Recorded Not on file documented as of this encounter Last Filed Vital Signs Vital Sign Reading Time Taken Comments Blood Pressure 129/78 09/19/2020 1:30 PM EDT Pulse 54 09/19/2020 1:30 PM EDT Temperature 36.5 ??C (97.7 ??F) 09/19/2020 1:30 PM EDT Respiratory Rate 20 09/19/2020 1:30 PM EDT Oxygen Saturation 97% 09/19/2020 1:30 PM EDT Inhaled Oxygen Concentration - - Weight - - Height - - Body Mass Index - - documented in this encounter Discharge Instructions Discharge InstructionsSabina Mora RN - 09/19/2020 12:50 PM EDT Images from the original note were not included. [facility] Vascular and Interventional Radiology Discharge Instructions for your Chest Port Removal Activity: ??? Relax for the next 24 hours Diet: ??? Drink plenty of fluids. ??? Resume your regular diet Bandage: There is a sterile dressing consisting of small gauze with a clear dressing (Tegaderm or [id number]). This dressing should be left in place for 48 hours. If the clear dressing becomes loose you should place tape over the edges to secure it in place. No tub baths, swimming or whirlpools for 1 week. No showering for 48 hours. Note: If you have steri-strips beneath your dressing, simply allow them to fall off. Do not peel them off. There may be Escalon-harvey (skin glue) also, allow this to flake off. Do not pick this off. Bathing: Do not take a shower until 48 hours after your port is removed; after this time you may shower with the dressing in place, then remove it and pat your skin dry. After 48 hours, we recommend that you cover the area with THE AQUA GUARD PROVIDED for 1 week while showering, facing away from the shower stream. You may use a bandaid to cover the site after the 48 hours are up if there is any drainage. No tub baths, whirlpools or swimming for one week following port removal. Pain: Apply ice bag to site (s) at 30 minute intervals (30 minutes on and 30 minutes off) for 24 hours?? . May use as needed for pain and/or bruising after 24 hours. When to call your healthcare provider: ??? If you notice bleeding from the incision on your chest, you should lie flat and apply firm pressure over the site for 10-15 minutes, keeping the site covered and call your doctor. If you are still bleeding after 10-15 minutes, reapply pressure, and have someone drive you to the nearest Emergency [facility], or call 911. ??? If you develop pain, redness, drainage or swelling at or around chest incision site. ??? If you develop a fever equal to or greater than 101 degrees Fahrenheit. When to call the Interventional Radiology Department: Please call with any questions or concerns. Ifit is during regular office hours, please call [phone]. If it is after regular office hours, oron weekends or holidays, please call [phone] and ask to speak to the Lawn Service Supervisor on callfor Interventional Radiology. You have received medication during your procedure to help lessen anxiety and keep you comfortable.These medications affect judgement and reaction time. We recommend that you do not drive, operate equipment, sign any important documents, or smoke unattended for 24 hours following your procedure. Because of the sedation, be careful on stairs, as you may be unsteady on your feet. You may resume your regular diet as tolerated. IV site -- slight redness, or tenderness is normal, you can use a warm compress. If tenderness and redness increases or foul drainage occurs, please contact your M. D. Revised 01/04/19 documented in this encounter Medications at Time of Discharge [...] 0 daily. documented as of this encounter Progress Notes Sabina Mora RN - 09/16/2020 8:44 AM EDT [facility] DATAB[facility] Name: WARD SIERRA Date of : 1950 AGE: 69 y.o. Address: [place] [address] (home) Mobile: Telephone Information: Referring Provider: Ashok Ritchie REASON FOR VISIT: Order Questions Answers Where will study be performed? [facility] Radiology [120] Reason for exam and clinical history: mediport no longer needed Exam/Procedure requested: mediport removal Is the patient on anticoagulant / antiplatelet therapy ? No Allergies Allergen Reactions ??? Penicillins rash ??? Codeine Phosphate Rash Pertinent PSH: Past Surgical History: Procedure Laterality Date ??? IR MEDIPORT PLACEMENT/EXCHANGE 04/08/2020 IR Mediport Placement 04/08/2020 Mann Escobar APRN [facility] INTERVENTIONL RAD ??? KIDNEY STONE SURGERY ??? PRG SOMATOSENSORY TEST, ANY/ALL PER. NERVES, TRUNK OR HEAD N/A 02/20/2020 FACIAL NERVE MONITORING, SETUP PERIPHERAL (WRVU 0.54) performed by Osman Barnett MD at [facility] MAIN OR ??? PRO ADJ TISS TRANSFER/REARRANGEMENT ANY AREA 30.1-60 SQCM Left 02/20/2020 ADJACENT TISSUE TRANSFER OR REARRANGEMENT; 30.1 TO 60.0 SQ CM, THORAX (WRVU 12.65) performed by Osman Barnett MD at [facility] MAIN OR ??? PRO ADJ TISS TRANSFER/REARRANGEMENT ANY AREA EA ADDL 30SQCM Left 02/20/2020 ADJACENT TISSUE TRANSFER OR REARRANGEMENT; EA ADD'L 30.0 SQ CM, OR PART OF (WRVU 3.73) performed byOsman Barnett MD at [facility] OR ??? PRO COLONOSCOPY, REMV LESN, SNARE N/A 07/07/2015 COLONOSCOPY, POLYPECTOMY, REMOVAL LESION BY SNARE performed by Jose Manuel Heller MD at [facility] ENDOSCOPY ??? PRO EXC PAROTD, TOTAL, DISSECT 5TH NERV Left 02/20/2020 EXCISION OF PAROTID TUMOR OR PAROTID GLAND, TOTAL, WITH DISSECTION AND PRESERVATION OF FACIAL NERVE(WRVU 19.53) performed by Osman Barnett MD at [facility] OR ??? PRO EXC SKIN MALIG 3.1-4CM FACE, FACIAL Left 02/20/2020 EXC MALIGNANT LESION, 3.1 TO 4.0CM, FACE (WRVU 4.34) performed by Osman Barnett MD at [facility] OR ? ? PRO EXC SKIN MALIG >4CM FACE, FACIAL Left 02/20/2020 EXC MALIGNANT LESION, >4.0CM, EARS (WRVU 6.26) performed by Osman Barnett MD at [facility] [place] ??? PRO LARYNGOSCOPY, DIRECT, DX, OP MICROSCOP N/A 05/13/2020 LARYNGOSCOPY, WITH MICROSCOPE (WRVU 2.57) performed by Osman Barnett MD at [facility] OR ??? PRO MICROSURG TECHNIQUES, REQ OPER MICROSCOPE N/A 02/20/2020 MICROSCOPE USE (WRVU 3.46) performed by Neo Gilman MD at [facility] MAIN OR ??? PRO MUSCLE-SKIN FLAP, TRUNK Left 02/20/2020 FLAP, MYOCUTANEOUS OR FASCIOCUTANEOUS, TRUNK (WRVU 19.86) performed by Osman Barnett MD at [facility] MAIN OR ??? PRO PLACE PERCUT GASTROSTOMY TUBE N/A 05/13/2020 ENDOSCOPY W DIRECTED PLACEMENT PERCUTANEOUS GASTROSTOMY TUBE-PEG (WRVU 3.66) performed by Trent Wood MD at [facility] MAIN OR ??? PRO REMOVAL NODES, NECK, CERV MOD RAD Left 02/20/2020 @CERVICAL LYMPHADENECTOMY (MODIFIED RADICAL NECK DISSECTION) (WRVU 23.95) performed by Osman Barnett MD at [facility] MAIN OR ??? PRO RESECT TEMPORAL BONE, SCRIP CLERK APPRCH Left 02/20/2020 @RESECTION TEMPORAL BONE, EXTERNAL APPROACH (WRVU 37.42) performed by Neo Gilman MD at [facility] [place] ??? PRO TEMP CLOSURE EYELID BY SUTURE Left 05/13/2020 TEMPORARY CLOSURE OF EYELID BY SUTURE, TARSORRHAPHY (WRVU 1.35) performed by Osman Barnett MD at [facility] MAIN OR Date/Procedure Meds given/comments 04/08/20 Mediport Placement ANES 09/19/20 Mediport removal Fentanyl 25 mcg IV; tolerated well 1247 to procedure room 5 via stretcher. On stretcher. All monitors, O2, safety strap in place. Meds per protocol. Laboratory Results: Lab Results Component Value Date INR 1.0 02/07/2020 Lab Results Component Value Date CREATININE 0.65 (L) 02/23/2020 Lab Results Component Value Date K 3.8 02/23/2020 Lab Results Component Value Date PLATELET 181 02/23/2020 documented in this encounter H&P Notes Carlos Christine PA - 09/17/2020 4:27 PM EDT Images from the original note were not included. Interventional Radiology Focused Pre-procedure H&P: PCP: Tara Joya MD Referring Provider: Ashok Ritchie Planned procedure: Port explant Procedure indication: High risk skin cancer, discontinue usp durable venous access for chemotherapy IR workflow: Procedure request received through Interventional Radiology eDH order queue. Order Questions Answers Where will study be performed? [facility] Radiology [120] Reason for exam and clinical history: mediport no longer needed Exam/Procedure requested: mediport removal Is the patient on anticoagulant / antiplatelet therapy ? No History of present illness: Per chart review, Ward Sierra is a 69 y.o. male who presents to Interventional Radiology to undergo removal of port in setting of high risk skin cancer. This is a patient with high risk skin cancer s/p all treatment, now ready for port removal. Remainder of patient's medical and surgical history, allergies, medications, and social/family history obtained below as previously outlined in patient's medical record. IR history: Placed March 2020 Imaging: Assessment: 69 y.o. male with skin cancer s/p treatment presenting to Interventional Radiology for port explant. Plan Planned procedure: Port explant Labs to be performed day of procedure: No labs Sedation: No Sedation Additional medications for procedure: Lidocaine Position: Supine Consent: Pending Labs: Lab Results Component Value Date HGB 11.0 (L) 02/23/2020 HCT 32.5 (L) 02/23/2020 WBC 10.2 (H) 02/23/2020 PLATELET 181 02/23/2020 INR 1.0 02/07/2020 BUN 15 02/23/2020 CREATININE 0.65 (L) 02/23/2020 ALBUMIN 4.2 02/20/2020 BILITOT 0.7 02/20/2020 AST 17 02/20/2020 ALT 12 02/20/2020 ALKPHOS 55 02/20/2020 Allergies: Penicillins and Codeine phosphate Medications: Current Outpatient Medications on File Prior to Encounter Medication Sig Dispense Refill ??? gabapentin (Neurontin) [...] current facility-administered medications on file prior to encounter. Past medical/surgical history: Patient Active Problem List Diagnosis Code ??? [...] upper eyelid H02.204 ??? Dysphagia R13.10 History reviewed. No pertinent past medical history. Past Surgical History: Procedure Laterality Date ??? IR MEDIPORT PLACEMENT/EXCHANGE 04/08/2020 IR Mediport Placement 04/08/2020 Mann Escobar APRN [facility] INTERVENTIONL RAD ??? KIDNEY STONE SURGERY ??? PRG SOMATOSENSORY TEST, ANY/ALL PER. NERVES, TRUNK OR HEAD N/A 02/20/2020 FACIAL NERVE MONITORING, SETUP PERIPHERAL (WRVU 0.54) performed by Osman Barnett MD at [facility] MAIN OR ??? PRO ADJ TISS TRANSFER/REARRANGEMENT ANY AREA 30.1-60 SQCM Left 02/20/2020 ADJACENT TISSUE TRANSFER OR REARRANGEMENT; 30.1 TO 60.0 SQ CM, THORAX (WRVU 12.65) performed by Osman Barnett MD at [facility] MAIN OR ??? PRO ADJ TISS TRANSFER/REARRANGEMENT ANY AREA EA ADDL 30SQCM Left 02/20/2020 ADJACENT TISSUE TRANSFER OR REARRANGEMENT; EA ADD'L 30.0 SQ CM, OR PART OF (WRVU 3.73) performed byOsman Barnett MD at [facility] MAIN OR ??? PRO COLONOSCOPY, REMV LESN, SNARE N/A 07/07/2015 COLONOSCOPY, POLYPECTOMY, REMOVAL LESION BY SNARE performed by Jose Manuel Heller MD at [facility] ENDOSCOPY ??? PRO EXC PAROTD, TOTAL, DISSECT 5TH NERV Left 02/20/2020 EXCISION OF PAROTID TUMOR OR PAROTID GLAND, TOTAL, WITH DISSECTION AND PRESERVATION OF FACIAL NERVE(WRVU 19.53) performed by Osman Barnett MD at [facility] MAIN OR ??? PRO EXC SKIN MALIG 3.1-4CM FACE, FACIAL Left 02/20/2020 EXC MALIGNANT LESION, 3.1 TO 4.0CM, FACE (WRVU 4.34) performed by Osman Barnett MD at [facility] MAIN OR ? ? PRO EXC SKIN MALIG >4CM FACE, FACIAL Left 02/20/2020 EXC MALIGNANT LESION, >4.0CM, EARS (WRVU 6.26) performed by Osman Barnett MD at [facility] [place] ??? PRO LARYNGOSCOPY, DIRECT, DX, OP MICROSCOP N/A 05/13/2020 LARYNGOSCOPY, WITH MICROSCOPE (WRVU 2.57) performed by Osman Barnett MD at [facility] MAIN OR ??? PRO MICROSURG TECHNIQUES, REQ OPER MICROSCOPE N/A 02/20/2020 MICROSCOPE USE (WRVU 3.46) performed by Neo Gilman MD at [facility] MAIN OR ??? PRO MUSCLE-SKIN FLAP, TRUNK Left 02/20/2020 FLAP, MYOCUTANEOUS OR FASCIOCUTANEOUS, TRUNK (WRVU 19.86) performed by Osman Barnett MD at [facility] MAIN OR ??? PRO PLACE PERCUT GASTROSTOMY TUBE N/A 05/13/2020 ENDOSCOPY W DIRECTED PLACEMENT PERCUTANEOUS GASTROSTOMY TUBE-PEG (WRVU 3.66) performed by Trent Wood MD at [facility] MAIN OR ??? PRO REMOVAL NODES, NECK, CERV MOD RAD Left 02/20/2020 @CERVICAL LYMPHADENECTOMY (MODIFIED RADICAL NECK DISSECTION) (WRVU 23.95) performed by Osman Barnett MD at [facility] OR ??? PRO RESECT TEMPORAL BONE, SCRIP CLERK APPRCH Left 02/20/2020 @RESECTION TEMPORAL BONE, EXTERNAL APPROACH (WRVU 37.42) performed by Neo Gilman MD at [facility] [place] ??? PRO TEMP CLOSURE EYELID BY SUTURE Left 05/13/2020 TEMPORARY CLOSURE OF EYELID BY SUTURE, TARSORRHAPHY (WRVU 1.35) performed by Osman Barnett MD at [facility] OR Social history and habits: Social History Tobacco Use ??? Smoking status: Former Smoker Packs/day: 1.00 Years: 40.00 Pack years: 40.00 Types: Cigarettes Quit date: 01/08/2003 Years since quittin.7 ??? Smokeless tobacco: Never Used Vaping Use ??? Vaping Use: Never used Substance Use Topics ??? Alcohol use: No ??? Drug use: Yes Frequency: 1.0 times per week Types: Marijuana Comment: rare Significant family history: Family History Problem Relation Age of Onset ??? Other Father enlarged heart ??? Skin Cancer Brother 35 rapid dissemination; of metastatic disease Pertinent ROS: as per HPI Physical exam: Pending (to be performed in interventional radiology the day of procedure) ASA: Pending (to be assessed in interventional radiology the day of procedure) Mallampati class: Pending (to be assessed in interventional radiology the day of procedure) 09/17/2020 JADE Ovalle documented in this encounter Plan of Treatment Upcoming Encounters Date Type Specialty Care Team Description 10/21/2021 Infusion Hematology and Oncology 11/09/2021 Office Visit Hematology and Oncology Alhaji Ritchie MD [facility] [address] ONCOLOGY DEPT. [place], [place] [address] (Wo rk) 11/09/2021 Infusion Hematology and Oncology 12/10/2021 Office Visit Dermatology Silas Walters MD [address] DERMATOLOGY [place], [place] [address] (Wo rk) 09/19/2039 Hospital Encounter Surgery Osman Barnett MD [facility] OTOLARYNGOLOGY D EPT. [place], [place] [address] (Wo rk) Scheduled Procedures Name [...] Name Priority Date/Time Associated Diagnosis Comme nts IR MEDIPORT REMOVAL Routine 09/19/2020 1:31 PM Squamous cell R esults for this EDT carcinoma of ear, procedure are in left the results section. documented in this encounter Results IR Mediport Removal (09/19/2020 1:31 PM EDT) Anatomical Region Laterality Modality X-Ray Angiography Specimen (Source) Anatomical Location Collection Method / Collectio n Time Received Time / Laterality Volume Narrative 09/19/2020 1:39 PM EDT IR Procedure Note Procedure: ? Chest port removal (Rig ht) History/indication: ? 69 yr old M jade [place] presenting to Interventional Radiology to undergo removal of a chest port, initially placed March 2020 for treatment of high risk skin can cer. Treatment is complete and removal now re quested. ?? Technique: ?The right anterior chest was prepped and draped in a sterile fashion. Maximal sterile barrier techniq ue was employed throughout the case. ??1% lidocaine and bupivicaine wit h epinepherine were used as local anesthesia. The patient received split d oses of intravenous fentanyl from the IR nurse while pulse, pressure, end tidal CO2 parameters and oxygen saturation were continuously monitored. An incision was made along the existing scar. Blunt and sharp dissection were then carried down to the port reser voir. The catheter was identified and secured with a hemostat. The cathete r was then cut and the intravascular portion of the catheter re moved in its entirety. ??The port reservoir was freed from the surrounding tissues and removed. ??All three components were visually accounted for o n the table before the overlying skin was closed. The overlying skin was closed using a two layer technique (2-0 and 4-0 absorbable suture material) ; tissue adhesive was also applied. ??The patient tolerated the pro cedure well. Complications: ?None immediate; ??EB L=5 cc Medications: ??1% lidocaine (<10 cc); fe ntanyl 25 mcg Impression: ? Right chest port remov al as detailed above. Attending: ?Sade Huff MD ? I was present during the intraservice t roxanne as documented by the IR Nurse. Ashok Ritchie MD IMG IR ORDERABLES documented in this encounter Visit Diagnoses Diagnosis Squamous cell carcinoma of ear, left documented in this encounter Administered Medications Inactive Administered Medications - up to 3 most recent administrations Medication Order MAR Action Action Date Dose Rate Site fentaNYL (pf) (50 mcg/mL) Given 09/19/2020 12:57 PM EDT 25 mcg multi-dose injection 25-50 mcg 25-50 mcg, Intravenous, EVERY 3 MIN PRN, Starting on Tue09/19/20 at 1231, Until Tue09/19/20 at 1356, Pain, per unit protocol, - Start dose 50 mcg (reduce dose to 25 mcg if history of sedation sensitivity). - Titration dose 25-50 mcg IV, (based on patient response) every 3 minutes PRN, to maintain procedural pain less than 2 per pain Scale. Maximum dose: 50 mcg/dose, 250 mcg/hour For use in Interventional Radiology (IR) only for procedural sedation with direct provider supervision and verbal order., Angio/IR (Intra-Procedure), Routine lidocaine (Xylocaine) 1% (10 mg/mL) injection Given 1:02 PM EDT 10 mg 10 mg 10 mg, Subcutaneous, ONCE, 1 dose, On Tue09/19/20 at 1230, For use in Interventional Radiology (IR) only for procedure with direct provider supervision and verbal order., Angio/IR (Day of Procedure), Routine lidocaine-EPINEPHrine (1% - 1:100,000) Given 09/19/2020 1:02 PM EDT 20 mLs injection 20 mL 20 mL, Intradermal, ONCE, 1 dose, On Tue09/19/20 at 1230, Warning Vesicant/Irritant Medication For subcutaneous use during IR procedures., Angio/IR (Day of Procedure), Routine sodium chloride 0.9% infusion New Bag 09/19/2020 12:57 PM EDT 1,000 mLs 100 mL/hr 1,000 mL, at 100 mL/hr, Intravenous, CONTINUOUS, Starting on Tue09/19/20 at 1300, Until Tue09/19/20 at 1356, Angio/IR (Day of Procedure) documented in this encounter Care Teams Manager Strategic Sourcing Relationship Specialty Start Date End Date Tara Joya MD PCP - General Family Medicine 05/16/[address] [place] [address] documented as of this encounter
--- OUTSIDE RECORDS SUMMARY | 2021-10-21 07:58 | XMS_ITS | Encounter Summary ---
:1950 Author Organization [facility] [place] [address] Care Team Providers Name Role Phone Tara Joya MD Primary Care Provider Reason for Referral Diagnostic Test (Routine) - Closed Specialty Diagnoses / Procedures Referred By Contact Refer red To Contact Radiology Diagnoses Squamous cell carcinoma of ear, left Ashok Ritchie MD [facility] Interventionl Rad Procedures IR [facility] [place] [address] [place] [address] Referral ID Status Reason Start Date Expiration Date Visits V isits Requested Authorized [id number] Closed Specialty 09/15/2020 03/17/2022 1 1 Service Requested Consultation (Routine) - Closed Specialty Diagnoses / Procedures Referred By Contact Refer red To Contact General Surgery Diagnoses Squamous cell carcinoma of ear, left Ashok Ritchie MD [facility] Gen Surgery 4l [facility] [place] [address] [place] [address] Fax: Referral ID Status Reason Start Date Expiration Date Visits V isits Requested Authorized [id number] Closed Consult, 09/15/2020 09/15/2021 1 1 Test & Treat Encounter Details Date Type Department Care Team Description 09/15/2020 Office Visit Hematology/Oncology Ashok Ritchie Bipo lar affective disorder, remission status unspecified; at [facility] Hypertriglyceridemia; [address] [facility] Fatigue due to exposure, sub sequent encounter; [place], [place] Squamous cell carcinoma of ear, left [id number] ONCOL[address]Y DEPT. [phone] [place], [place] [address] Social History Tobacco Use Types [...] Sign Reading Time Taken Comments Blood Pressure 132/84 09/15/2020 11:27 AM EDT Pulse 71 09/15/2020 11:27 AM EDT Temperature 36.7 ??C (98 ??F) 09/15/2020 11:27 AM EDT Respiratory Rate 16 09/15/2020 11:27 AM EDT Oxygen Saturation 98% 09/15/2020 11:27 AM EDT Inhaled Oxygen Concentration - - Weight 72.4 kg (159 lb 9.6 oz) 09/15/2020 11:27 AM EDT Height 175.3 cm (5' 9.02) 09/15/2020 11:27 AM EDT Body Mass Index 23.56 09/15/2020 11:27 AM EDT documented in this encounter Progress Notes Ashok Ritchie MD - 09/15/2020 11:00 AM EDT Hematology/Oncology Clinic [facility] Patient Active Problem List Diagnosis ??? Squamous [...] 11/28/20 02/27/21 ON ACTIVE TREATMENT COMPLETED TREATMENT [place] - [place] x x [place] [facility] x x Med Onc x [...] 05/29/23 11/29/23 05/28/24 11/28/24 05/28/25 COMPLETED TREATMENT [place] - MD x x x [place] AP x x Med Onc x [...] 5 YEARS: Alternate annual follow-up appointments between [place] AP and MD, beginning with AP at 6-year appt. ??? Dysphagia ??? Lagophthalmos of left upper eyelid Added automatically from request for surgery [id number] ??? Encounter for venous access device care ??? Chemotherapy-induced nausea ??? Hearing loss Bilateral hearing aids prior to surgical loss of L ear 02/2020 ??? Mass of left ear Added automatically from request for surgery [id number] ??? Parotid mass Added automatically from request for surgery [id number] ??? History of basal cell carcinoma ??? [...] negative ??? Basal cell cancer ??? Hypertriglyceridemia Medical oncology follow-up visit. He is now 3 months from completing adjuvant chemoradiation for high risk skin cancer. He has been doing quite well, and he and his feel that he has turned the corner on recovery. His taste sensation is still suboptimal but is improving and the variety of foods he can eat is increasing. He has moderate xerostomia. He has not needed to use his PEG tube in several weeks. Unfortunately a mandibular molar tooth cracked (while he was using a therapeutic trismus device), and he is under evaluation for a possible dental implant. Dr. Eleazar Pena is planning on getting in touch with his dentist/oral surgeon. Energy level is improving, KPS 90 He denies peripheral neuropathy or treatment-emergent hearing problems Physical exam: He looks well, in good spirits Surgical incisions of healed nicely, and the eschar up under his left ear his finally epithelializedfully. There are no longer any open areas Neck exam shows well-healed surgical scars, thick grafted tissue in the left neck, but no distinct adenopathy Oral exam shows mild xerosis. No active mucositis. Teeth generally are in good repair, with a posterior molar fracture on the left. Mild trismus. Lungs are clear Cardiac exam shows regular rate and rhythm, 1/6 systolic flow murmur along the left sternal border Abdomen is benign. No hepatosplenomegaly. PEG tube site is clean Right chest Mediport is benign Extremities are normal without clubbing cyanosis or edema Neurologic exam shows normal motor function in the limbs. Cranial nerves normal except for persistent moderate left facial nerve palsy. The droopy left eyelid is much improved and the suture has been removed. Reflexes 1+ Labs: Today's electrolytes are normal, BUN slightly high at 30, creatinine slightly up at 1.5. Nonfasting glucose 281. Calcium normal. Hepatic enzymes normal. Albumin has improved to 3.8. TSH 2.57. White count is 5.98, platelets 167, hemoglobin improved to 11.6. Imaging: I personally reviewed his recent CT scan of the neck which showed extensive surgical and grafting changes, but no evidence of recurrent tumor Impression: Clinically LIZZIE 3 months from completion of adjuvant chemoradiation for a regionally recurrent high risk skin cancer. He is recovering well from treatment effects. He no longer needs the Mediport nor the PEG tube. Plan: 1. I will arrange Mediport removal with IR and PEG removal with Gen'l Surgery 2. I will defer to Dr. rPosper Galdamez and the patient's dentist/oral surgeon about the pros and cons of dental implant. There is some literature about the safety and efficacy of this after head and neck cancer radiation; there appears to be a slight increase in complications and implant failure but in general it seems to be a reasonable option (Diann Y et al, Anticancer Research 2016;36:3053-6) 3. Followup per [facility] H/N team standard plan Ashok Ritchie MD, FACP metal melter Hematology/Oncology Section [facility] [address] Voice recognition software used for this note; please excuse epitaxial reactor operator errors. I personally reviewed past medical, surgical, family medical histories, reviewed current medications, vital signs, labs, and performed full review of systems. These are documented below the narrative for clarity and succinctness. Outpatient Medications Marked as Taking for the 09/15/20 encounter (Office Visit) with Ashok Ritchie MD Medication Sig Dispense Refill ??? gabapentin (Neurontin) 300 mg Capsule Take 600 mg by mouth nightly. ??? pantothenic Ac-Min Oil-Pet,Hyd (AQUAPHOR) 41 % Ointment Apply topically. ??? ABILIFY 15 mg Tablet Take 15 [...] Review of systems is negative for other DELIVERY DRIVER/SUPERVISOR, bone, pulmonary, cardiac, GI, , extremity, neurologic, endocrine, skin, constitutional, emotional, or functional problems. Vitals Office Visit from 09/11/2020 in Radiation Oncology at [facility] Weight 74.8 kg (165 lb) Heart Rate 83 Heart Rate Source Left, SaO2 Resp 17 BP 133/73 BP Location Right arm Patient Position Sitting SpO2 97 % Body surface area is 1.88 meters squared. Wt Readings from Last 3 Encounters: 09/15/20 72.4 kg (159 lb 9.6 oz) 09/11/20 74.8 kg (165 lb) 08/29/20 73.6 kg (162 lb 3.2 oz) No results found for this or any previous visit (from the past 72 hour(s)). ++++++++++++++++++++++++++++++++++++++++++++++++++++ documented in this encounter Plan of Treatment Upcoming Encounters Date Type Specialty Care Team Description 10/21/2021 Infusion Hematology and Oncology 11/09/2021 Office Visit Hematology and Oncology Alhaji Ritchie MD [facility] DR ONCOLOGY DEPT. [place], [place] [address] (Wo rk) 11/09/2021 Infusion Hematology and Oncology 12/10/2021 Office Visit Dermatology Silas Walters MD [address] DERMATOLOGY [place], [place] [address] (Wo rk) 09/19/2039 Hospital Encounter Surgery Osman Barnett MD [facility] OTOLARYNGOLOGY D EPT. [place], [place] [address] (Wo rk) Scheduled Procedures Name [...] 021 left documented as of this encounter Results IR Mediport Removal (09/19/2020 [...] documented in this encounter Visit Diagnoses Diagnosis Bipolar affective disorder, remission st atus unspecified Hypertriglyceridemia Pure hyperglyceridemia Fatigue due to exposure, subsequent enco unter Squamous cell carcinoma of ear, left Squamous cell carcinoma of ear, left documented in this encounter Care Teams Rubber Tubing Backer Relationship Specialty Start Date End Date Tara Joya MD PCP - General Family Medicine 05/16/[address] [place] [address] documented as of this encounter
--- OUTSIDE RECORDS SUMMARY | 2021-10-21 07:58 | XMS_ITS | Encounter Summary ---
:1950 Author Organization [facility] [place] [address] Care Team Providers Name Role Phone Tara Joya MD Primary Care Provider Encounter Details Date Type Department Care Team Description 09/19/2020 Office Visit General Surgery at [facility] Valerie Ny, [place] [address] GENERAL SURGERY [place], [place] [address] (Wo rk) Social History Tobacco Use Types Packs/Day Years Used Date Former Smoker Cigarettes 1 40 Quit: 01/09/20 03 Smokeless Tobacco: Never Used Alcohol Use Standard Drinks/Week Comments No 0 (1 standard drink = 0.6 oz pure alcoho l) Sex Assigned at Date Recorded Not on file documented as of this encounter Progress Notes Valerie yN, HAZARDOUS MATERIALS DRIVER - 09/19/2020 9:00 AM EDT Mr Hopper is seen today for PEG removal. PEG was placed for durable nutritional access in the setting of SCC of the skin of the left face, s/p total parotidectomy, and inability to take po. Ward and his report he has been eating well for the past two weeks. Feels well, no abd pain, nausea or vomiting. EXAM: Non toxic appearing, abd soft non tender non distended. PEG site with some moisture irritation, however no evidence of fluid collection or cellulitis. PEG site was infiltrated with 1% lidocaine, when sufficient Block was obtained , the PEG was easily removed. Silver nitrate applied to the hypergranulation tissue. Site remained dry. Dressing placed. Impression/plan: In regard to the pt's PEG removal. I have explained to the pt and his that they are to expect some drainage over the next 2-3 days which should taper off by day 4-5. I have advised the pt that should there be any fever chills abdominal pain, or continues drainage the pt is to report to the nearest ED or [facility] general surgery clinic for evaluation. Otherwise the pt may FU with us on a prn basis. documented in this encounter Plan of Treatment Upcoming Encounters Date Type Specialty Care Team Description 10/21/2021 Infusion Hematology and Oncology 11/09/2021 Office Visit Hematology and Oncology Alhaji Ritchie MD [facility] [address] ONCOLOGY DEPT. [place], [place] [address] (Jin carson) 11/09/2021 Infusion Hematology and Oncology 12/10/2021 Office Visit Dermatology Silas Walters MD [address] DERMATOLOGY [place], [place] [address] (Jin carson) 09/19/2039 Hospital Encounter Surgery Osman Barnett MD [facility] OTOLARYNGOLOGY D EPT. [place], [place] [address] (Jin carson) Scheduled Procedures Name [...] as of this encounter Visit Diagnoses Diagnosis Surgery follow-up Follow-up examination, following unspeci fied surgery documented in this encounter Care Teams Cisco Network Architect Relationship Specialty Start Date End Date Tara Joya MD PCP - General Family Medicine 05/16/[address] [place] [address] documented as of this encounter
--- OUTSIDE RECORDS SUMMARY | 2021-10-21 07:58 | XMS_ITS | Encounter Summary ---
:1950 Author Organization [facility] [place] [address] Care Team Providers Name Role Phone Tara Joya MD Primary Care Provider [phone] Reason for Visit Reason Comments Other Hydration Encounter Details Date Type Department Care Team Description 06/10/2020 Infusion Hematology Oncology at [facility] Squamous cell carcinoma of e ar, left [address] [place] [phone] Social History Tobacco Use [...] Sign Reading Time Taken Comments Blood Pressure 136/84 06/10/2020 1:03 PM EDT Pulse 116 06/10/2020 1:03 PM EDT Temperature 36.4 ??C (97.5 ??F) 06/10/2020 1:03 PM EDT Respiratory Rate 20 06/10/2020 1:03 PM EDT Oxygen Saturation 98% 06/10/2020 1:03 PM EDT Inhaled Oxygen Concentration - - Weight 66.8 kg (147 lb 3.2 oz) 06/10/2020 1:03 PM EDT Height 176.5 cm (5' 9.49) 06/10/2020 1:03 PM EDT Body Mass Index 21.43 06/10/2020 1:03 PM EDT documented in this encounter Progress Notes Eboni Paz RN - 06/10/2020 1:00 PM EDT INFUSION THERAPY ADMINISTRATION NOTES DIAGNOSIS: Squamous cell cancer of the left ear REASON FOR VISIT: Hydration SUBJECTIVE Ward has no complaints to offer [...] [facility] [address] ONCOLOGY DEPT. [place], [place] [address] (Wo rk) 11/09/2021 Infusion Hematology and Oncology 12/10/2021 Office Visit Dermatology Silas Walters MD [address] [facility] DERMATOLOGY [place], [place] [address] (Wo rk) 09/19/2039 Hospital Encounter Surgery Osman Barnett MD [facility] OTOLARYNGOLOGY D EPT. [place], [place] [address] (Wo rk) Scheduled Procedures Name [...] MAR Action Action Date Dose Rate Site sodium chloride 0.9% New Bag 06/10/2020 1:15 PM EDT 1,000 mLs 500 mL/hr infusion 1,000 mL (1 L), at 500 mL/hr, Intravenous, ONCE, 1 dose, On Tue06/10/20 at 1330 documented in this encounter Care Teams Wire Preparation Worker Relationship Specialty Start Date End Date Tara Joya MD PCP - General Family Medicine 05/16/[address] [place] [address] documented as of this encounter
--- OUTSIDE RECORDS SUMMARY | 2021-10-21 07:59 | XMS_ITS | Encounter Summary ---
:1950 Author Organization [facility] [place] [address] Care Team Providers Name Role Phone Tara Joya MD Primary Care Provider [phone] Encounter Details Date Type Department Care Team Description 05/19/2020 Office Visit Hematology/Oncology at [facility]re, Catie uamous cell [facility] RD carcinoma of ear, left [address] [place] [phone] Social History Tobacco Use Types Packs/Day Years Used Date Former Smoker Cigarettes 1 40 Quit: 01/09/20 03 Smokeless Tobacco: Never Used Alcohol Use Standard Drinks/Week Comments No 0 (1 standard drink = 0.6 oz pure alcoho l) Sex Assigned at Date Recorded Not on file documented as of this encounter Progress Notes Caterina Aguirre RD - 05/19/2020 1:00 PM EST [facility] Dietitian Follow Up Seen By: Caterina Aguirre RD LD Referred by: Dr. Ritchie Reason for visit: starting treatment for H&N cancer Patient and diagnosis: Ward Santamaria is a 69 y.o. 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 Receiving concurrent chemo/RT. HPI: Patient Active Problem List Diagnosis Code [...] ??? Lagophthalmos of left upper eyelid H02.204 Meds: reviewed Labs: reviewed Estimated body mass index is 22.44 kg/m?? as calculated from the following: Height as of an earlier encounter on 05/19/20: 175.3 cm (5' 9.02). Weight as of an earlier encounter on 05/19/20: 68.9 kg (152 lb). Wt Readings from Last 3 Encounters: 05/19/20 68.9 kg (152 lb) 05/14/20 69.9 kg (154 lb) 05/13/20 69.4 kg (153 lb) Weight at start of treatment: 171 lbs on 04/10/20 10% weight loss in one month, severe Wt Hx: UBW: ~170 lbs % UBW: IBW: +/- 10% % IBW: ___ Edema ___ Ascites ___Muscle wasting Calorie needs: 1849-6441 (30-35 kcal/kg) Protein needs: 105 grams (1.5 g/kg) Fluid needs: ~2.1+ L Nutrition Assessment: Food Intake: Minimal to no oral intake aside from sips of water Nutrition support: PEG placed on 05/13 Recommend 6 cartons of Nutren 1.5 to provide 2250 calories 102 grams protein and 1146 ml water. Patient is currently using 5 cartons per day, gravity method. Tolerating formula. Administers 1 carton per feeding. Tried 2, but this made him too full. Plans to increase to 6 cartons. DME is [facility] Supplements/Frequency: ___ Ensure/Plus ___ Boost/Plus ___ CIB ___ Other: Teas, vitamins, or other nutritional supplements: Food allergies or avoidances: denies Appetite: poor Nausea: + Vomiting: denies Chewing: takes longer, small bites at a time Dentition: teeth present Swallowing: Taste Changes: ++dygeusia Bowels: constipation, plans to use miralax via tube Food availability/purchasing, meal planning and preparation: self, Social Support: is very supportive Physical Activity: Anticipated adherence/understanding: good Nutrition Diagnosis: Inadequate oral intake related to nausea and poor appetite while undergoing 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 Nutrition Intervention: ? Increased caloric needs ? Modify diet consistency: as tolerated ? Enteral Nutrition: Increase to goal of 6 cartons per day; discussed/recommend adding extra scoop protein powder via tube; encouraged extra hydration via tube ? Assisted with gravity feed during infusion today, patient tolerated well Monitoring and Evaluation: Will follow up weekly. knows to reach out questions/concerns arise in the meantime. documented in this encounter Plan of Treatment Upcoming Encounters Date Type Specialty Care Team Description 10/21/2021 Infusion Hematology and Oncology 11/09/2021 Office Visit Hematology and Oncology Alhaji Ritchie MD [facility] ONCOLOGY DEPT. [place], [place] [address] (Jin carson) 11/09/2021 Infusion Hematology and Oncology 12/10/2021 Office Visit Dermatology Silas Walters MD [address] [place] [address] RD DERMATOLOGY [place], [place] [address] (Jin carson) 09/19/2039 Hospital Encounter Surgery Osman Barnett MD [facility] OTOLARYNGOLOGY D EPT. [place], [place] [address] (Jin carson) Scheduled Procedures Name [...] left documented in this encounter Care Teams Sign Letterer Relationship Specialty Start Date End Date Tara Joya MD PCP - General Family Medicine 05/16/[address] [place] [address] documented as of this encounter
--- OUTSIDE RECORDS SUMMARY | 2021-10-21 07:59 | XMS_ITS | Encounter Summary ---
:1950 Author Organization [facility] [place] [address] Care Team Providers Name Role Phone Tara Joya MD Primary Care Provider [phone] Encounter Details Date Type Department Care Team Description 05/05/2020 Office Visit Hematology/Oncology at [facility] Aguirre, Catie uamous cell [facility] RD carcinoma of ear, left [address] [place] [phone] Social History Tobacco Use Types Packs/Day Years Used Date Former Smoker Cigarettes 1 40 Quit: 01/09/20 03 Smokeless Tobacco: Never Used Alcohol Use Standard Drinks/Week Comments No 0 (1 standard drink = 0.6 oz pure alcoho l) Sex Assigned at Date Recorded Not on file documented as of this encounter Progress Notes Caterina Aguirre RD - 05/05/2020 1:00 PM EST [facility] Dietitian Follow Up Seen By: Caterina [...] care Z45.2 ??? Chemotherapy-induced nausea R11.0, T45.1X5A Meds: reviewed Labs: reviewed, sodium 134 Estimated body mass index is 22.74 kg/m?? as calculated from the following: Height as of an earlier encounter on 05/05/20: 176.5 cm (5' 9.49). Weight as of an earlier encounter on 05/05/20: 70.9 kg (156 lb 3.2 oz). Wt Readings from Last 3 Encounters: 05/05/20 70.9 kg (156 lb 3.2 oz) 05/01/20 73.8 kg (162 lb 9.6 oz) 04/30/20 73.3 kg (161 lb 9.6 oz) Further weight loss this week (>3%), severe Wt Hx: UBW: ~170 lbs % UBW: IBW: +/- 10% % IBW: ___ Edema ___ Ascites ___Muscle wasting Calorie needs: 7647-6662 (30-35 kcal/kg) Protein needs: 112 grams (1.5 g/kg) Fluid needs: ~2.5 L Nutrition Assessment: Food Intake: Mostly shakes. Nausea is making it difficult for patient to eat solids, he is turned off by smells and off taste of foods. states patient is preferring strawberry banana milkshake - drinking ~2 per day Ingredients: 1 cup whole milk, few scoops yogurt, 1 scoop protein powder (25 g protein), strawberries and banana slices. Estimate this provides ~500 calories per shake. Fluids: usually likes to drink pepsi, but trying to drink more water instead. Admits fluid intake islower that it should be. Nutrition support: no g-tube present, hoping to avoid if able Supplements/Frequency: __X_ Ensure/Plus 1 per day mixed into shake ___ Boost/Plus ___ CIB ___ Other: Teas, vitamins, or other nutritional supplements: Food allergies or avoidances: denies Appetite: fair Nausea: + starting olanzapine Vomiting: denies Chewing: takes longer, small bites at a time Dentition: teeth present Swallowing: denies difficulty Taste Changes: +dygeusia Bowels: did not assess Food availability/purchasing, meal planning and preparation: self, Social Support: Physical Activity: Anticipated adherence/understanding: good Nutrition Diagnosis: Inadequate oral intake related to nausea and poor appetite while undergoing chemo/RT for SCCa of theleft ear and parotid as evidenced by weight trends above. Nutrition Intervention: ? Increased caloric needs - reviewed 100kcal additions for shakes and smoothies; discussed patients goal calorie/protein needs ? Modify diet consistency: as tolerated - softer foods and liquids ? Increase frequency of meals and snacks - continue encouraging patient to eat every couple of hours ? Need for supplements: continue high calories, high protein shakes; using whey protein powder (equivalent to beneprotein) adding to shakes; add boost/ensure to shakes as well ? Nausea - provided recipes for hydrating beverages Monitoring and Evaluation: Will follow up weekly. documented in this encounter Plan of Treatment Upcoming Encounters Date Type Specialty Care Team Description 10/21/2021 Infusion Hematology and Oncology 11/09/2021 Office Visit Hematology and Oncology Alhaji Ritchie MD [facility] DR ONCOLOGY DEPT. [place], [place] [address] (Jin carson) 11/09/2021 Infusion Hematology and Oncology 12/10/2021 Office Visit Dermatology Silas Walters MD [address] [place] [address] RD DERMATOLOGY [place], [place] [address] (Jin carson) 09/19/2039 Hospital Encounter Surgery Osman Barnett MD [facility] OTOLARYNGOLOGY [place] EPT. [place], [place] [address] (Wo rk) Scheduled Procedures Name [...] left documented in this encounter Care Teams Hairmasters Manager Relationship Specialty Start Date End Date Tara Joya MD PCP - General Family Medicine 05/16/[address] [place] [address] documented as of this encounter
--- OUTSIDE RECORDS SUMMARY | 2021-10-21 07:59 | XMS_ITS | Encounter Summary ---
:1950 Author Organization [facility] [place] [address] Care Team Providers Name Role Phone Tara Joya MD Primary Care Provider [phone] Encounter Details Date Type Department Care Team Description 05/12/2020 Notes Only Hematology/Oncology at Mariela Gallardo MSW [facility] OFFICE OF CARE [address] [place] [address] [phone] Social History Tobacco Use Types Packs/Day Years Used Date Former Smoker Cigarettes 1 40 Quit: 01/09/20 03 Smokeless Tobacco: Never Used Alcohol Use Standard Drinks/Week Comments No 0 (1 standard drink = 0.6 oz pure alcoho l) Sex Assigned at Date Recorded Not on file documented as of this encounter Progress Notes Mariela Gallardo MSW - 05/12/2020 2:32 PM EST Follow up with pt during his infusion visit today. Pt indicated this is the start of week 4 of treatments for him. He did indicate it has been fairly rough on him but he is getting through it as best he can. He indicated his continues as his primary support. She has taken time off from work to care for him. Offered support. Pt did not identify any new needs at this time. Reminded pt of [employer] FIN[employer] availability and contact information. Will continue to follow for support and resources. documented in this encounter Plan of Treatment Upcoming Encounters Date Type Specialty Care Team Description 10/21/2021 Infusion Hematology and Oncology 11/09/2021 Office Visit Hematology and Oncology Alhaji Ritchie MD [facility] DR ONCOLOGY DEPT. [place], [place] [address] (Wo rk) 11/09/2021 Infusion Hematology and Oncology 12/10/2021 Office Visit Dermatology Silas Walters MD [address] DERMATOLOGY [place], [place] [address] (Wo rk) 09/19/2039 Hospital Encounter Surgery Osman Barnett MD [facility] OTOLARYNGOLOGY D EPT. [place], [place] [address] (Wo rk) Scheduled Procedures Name [...] on filedocumented in this encounter Care Teams Speech And Language Specialist Relationship Specialty Start Date End Date Tara Joya MD PCP - General Family Medicine 05/16/[address] [place] [address] documented as of this encounter
--- OUTSIDE RECORDS SUMMARY | 2021-10-21 07:59 | XMS_ITS | Encounter Summary ---
:1950 Author Organization [facility] [place] [address] Care Team Providers Name Role Phone Tara Joya MD Primary Care Provider [phone] Reason for Visit Reason Onset Date Comments Other 05/08/2020 Encounter Details Date Type Department Care Team Description 05/08/2020 Telephone Hematology/Oncology at Nancy Lucas RN Other [place] [id number] [phone] Social History Tobacco Use Types Packs/Day Years Used Date Former Smoker Cigarettes 1 40 Quit: 01/09/20 03 Smokeless Tobacco: Never Used Alcohol Use Standard Drinks/Week Comments No 0 (1 standard drink = 0.6 oz pure alcoho l) Sex Assigned at Date Recorded Not on file documented as of this encounter Miscellaneous Notes Telephone Encounter - Nancy Agee RN - 05/08/2020 1:43 PM EST Ward's came into clinic with pt and discussed that patient having ongoing nausea. He is not sleeping well. He wants to go back on Abilify and stop olanzapine as he does not feel it is helping. He did get marijuana card but does not feel it has helped with nausea. Reviewed with with written instructions for pt to take prochlorperazine first then ondansetron. Pt was prescribed prednisone which he has not started. Instructed to take with food or milk (he is having issues swallowing food due to nausea). He is to continue to work on pushing fluids as being dehydrated can cause nausea. Pt wouldlike g-tube placed. Pt having issues with drooping left eye to point where he is not able to drive. is going to take time off from work. Told her to bring in FMLA papers if needed for provider to sign. Reviewed with Dr. Ritchie and ángel was ordered and Dr. Lew will work on getting that in while he deals with left drooping eye lid. Caterina Aguirree social service assistant updated so she can work on g-tube teaching. Pt and agree with plan. documented in this encounter Plan of Treatment Upcoming Encounters Date Type Specialty Care Team Description 10/21/2021 Infusion Hematology and Oncology 11/09/2021 Office Visit Hematology and Oncology Alhaji Ritchie MD [facility] DR ONCOLOGY DEPT. [place], [place] [address] (Wo rk) 11/09/2021 Infusion Hematology and Oncology 12/10/2021 Office Visit Dermatology Silas Walters MD [address] [place] [address] DERMATOLOGY [place], [place] [address] (Wo rk) 09/19/2039 Hospital Encounter Surgery Osman Barnett MD [facility] OTOLARYNGOLOGY D EPT. [place], [place] [address] (Wo rk) Scheduled Procedures Name [...] on filedocumented in this encounter Care Teams Lastex Thread Winder Relationship Specialty Start Date End Date Tara Joya MD PCP - General Family Medicine 05/16/[address] [place] [address] documented as of this encounter"
--- OUTSIDE RECORDS SUMMARY | 2021-10-21 07:59 | XMS_ITS | Encounter Summary ---
:1950 Author Organization [facility] [address] Care Team Providers Name Role Phone Tara Joya MD Primary Care Provider [phone] Encounter Details Date Type Department Care Team Description 05/01/2020 Office Visit Radiation Oncology at Joshua Vanessa S quamous cell [facility] carcinoma of ear, [address] [place], [place] RADIATION ONCOL OGY [id number] [place], [place] [phone] (Wo rk) Social History Tobacco Use Types [...] - Respiratory Rate - - Oxygen Saturation 97% 05/01/2020 1:07 PM 97% on RA. EST Inhaled Oxygen Concentration - - Weight 73.8 kg (162 lb 9.6 oz) 05/01/2020 1:07 PM EST Height - - Body Mass Index 23.68 04/28/2020 10:35 AM EST documented in this encounter Progress Notes Joshua Vanessa MD - 05/01/2020 1:30 PM EST ON TREATMENT VISIT NOTE Wardgali Santamaria is a 69 y.o. 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 Adjuvant chemoradiotherapy Current treatment dose: 28 Gy in 14 fractions. Anticipated total dose: 66 Gy in 33 fractions. Concomitant Therapy: Y ONC BCA CHEMO (AMB) 04/14/2020 04/21/2020 Day, Cycle Day 1, Cycle 1 Day 8, Cycle 1 CISplatin (Platinol) IV 40 mg/m2/dose 40 mg/m2/dose Evaluation of Port Verification Films: PORT films have been reviewed, please see ROLA for details. Changes in medical condition Pain: denies Secretions/Dryness: increased xerostomia, moderate dysgeusia Swallowing Function: no issues excepting dryness Nutrition: all via mouth, no G tube Skin: one area adjacent to residual ear requiring continued packing, improved. Slightly tender. GI: -N/V: persistent nausea, on ondansetron / compazine prn which helps -Bowels: some constipation at baseline. Nutrition Assessment: Weight : 77.6 kg initial Change: 77.6 => 76.4 => 73.8 Objective: Vitals: 05/01/20 1307 SpO2: 97% Weight: 73.8 kg (162 lb 9.6 oz) SKIN: mild skin erythema; small area being packed with no evidence of infection MUCOSA: no mucositis Assessment: Mild - moderate toxicity, with some erythema, dysgeusia, xerostomia. CTCAE TOXICITY GRADES (see below for mcneal): Site Grade Skin 1 Xerostomia 1 Pharyngeal Mucositis 0 Dysphagia 0 Hoarseness 0 TREATMENT RESPONSE: No change Plan: ?? Continue RT per prescription ?? Pain control: ?? OTC medications ?? Skin: Jeans cream prn ?? Mucositis: ?? Pain control: see above ?? Oral hygiene consisting of baking soda/salt rinse at least 8 times daily ?? 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 Weight stable, all by mouth at this time N/V: taking schedule ondansteron / compazine as needed CTCAE v4.03 scales for reference Skin 0 [...] MD [facility] DR ONCOLOGY DEPT. [place], [place] [address] (Wo rk) 11/09/2021 Infusion Hematology and Oncology 12/10/2021 Office Visit Dermatology Silas Walters MD [address] [place] [address] DERMATOLOGY [place], [place] [address] (Wo rk) 09/19/2039 Hospital Encounter Surgery Osman Barnett MD [facility] OTOLARYNGOLOGY D EPT. [place], [place] [address] (Wo rk) Scheduled Procedures Name [...] left documented in this encounter Care Teams Cardiac Surgeon Relationship Specialty Start Date End Date Tara Joya MD PCP - General Family Medicine 05/16/[address] [place] [address] documented as of this encounter
--- OUTSIDE RECORDS SUMMARY | 2021-10-21 07:59 | XMS_ITS | Encounter Summary ---
:1950 Author Organization [place] [address] Care Team Providers Name Role Phone Tara Joya MD Primary Care Provider [phone] Reason for Visit Consultation (Routine) - Closed Specialty Diagnoses / Procedures Referred By Contact Refer red To Contact Radiation Oncology Diagnoses Squamous cell carcinoma of ear, left Eleazar Galdamez MD [facility] Rad Onc Office Procedures Re-simulation for Radiation Therapy Planning [facility] [address] [place] [address] [place] [phone] Fax: Referral ID Status Reason Start Date Expiration Date Visits V isits Requested Authorized [id number] Closed Consult, 05/06/2020 05/06/2021 1 1 Test & Treat Encounter Details Date Type Department Care Team Description 05/07/2020 Ancillary Appointment Radiation Oncology at Tio [facility] [address] [place] [phone] RADIATION ONCOLOGY [phone] [place], [place] [address] Social History Tobacco Use Types Packs/Day Years Used Date Former Smoker Cigarettes 1 40 Quit: 01/09/20 03 Smokeless Tobacco: Never Used Alcohol Use Standard Drinks/Week Comments No 0 (1 standard drink = 0.6 oz pure alcoho l) Sex Assigned at Date Recorded Not on file documented as of this encounter Progress Notes Eleazar Galdamez MD - 05/07/2020 12:00 PM EST Simulation was performed in anticipation of adaptive radiotherapy for squamous cell carcinoma of thehead and neck. The consent was reviewed with the physician and signed by both the patient and physician. An intravenous line was placed in anticipation of contrast administration. The patient was then brought to the simulation room and a time-out was performed per protocol. he was then placed on the simulation table and a custom cushion was constructed for his neck. Scars were marked with radio-opaque markers and a bite block and bolus were placed under physician supervision. A custom aquaplast maskwas then created. The simulation CT scan was performed with contrast, images were reviewed and approv ed by the physician, and tattoos were created by the therapy staff as indicated. The patient tolerated the procedure without difficulty, and was given a time to return to start radiotherapy. Charlene Zeng RN - 05/07/2020 12:[address] Contrast Simulation Nursing Note: Ward Santamaria [id number] 06/15/1985 IV ACCESS: Powerport GAUGE: Please see infusion note for details. BLOOD RETURN: yes CT simulation of: Head and neck MD present for contrast injection: Dr. Eleazar Galdamez Contrast material: Omnipaque 300mgI/ml Volume of Contrast Injected: 100 ml's Volume of Contrast wasted: 0 ml's Procedure done in Radiation Oncology CT Simulator Room __: No Reaction Any S/Sx of Infiltration/Extravasation: no IV discontinued: Please see infusion note. __: Reaction: Specify : none Comments: n/a documented in this encounter Plan of Treatment Upcoming Encounters Date Type Specialty Care Team Description 10/21/2021 Infusion Hematology and Oncology 11/09/2021 Office Visit Hematology and Oncology Alhaji Ritchie MD [facility] DR ONCOLOGY DEPT. [place], [place] [address] (Wo rk) 11/09/2021 Infusion Hematology and Oncology 12/10/2021 Office Visit Dermatology Silas Walters MD [address] DERMATOLOGY [place], [place] [address] (Wo rk) 09/19/2039 Hospital Encounter Surgery Osman Barnett MD [facility] OTOLARYNGOLOGMelvin Su EPT. [place], [place] [address] (Wo rk) Scheduled Orders Name Type Priority Associated Diagnoses Order S chedule Re-simulation for Procedures Routine Squamous cell carcinoma Ordered: 05/06/2020 Radiation Therapy of ear, left Planning Scheduled Procedures Name Priority Associated Diagnoses Date/Time [...] on filedocumented in this encounter Care Teams Fur Liner Relationship Specialty Start Date End Date Tara Joya MD PCP - General Family Medicine 05/16/[address] [place] [address] documented as of this encounter
--- OUTSIDE RECORDS SUMMARY | 2021-10-21 07:59 | XMS_ITS | Encounter Summary ---
:1950 Author Organization [facility] [place] [address] Care Team Providers Name Role Phone Tara Joya MD Primary Care Provider [phone] Encounter Details Date Type Department Care Team Description 05/13/2020 Hospital Encounter Same Day Program at [facility] uamous cell carcinoma, ear, left; [facility] Osman Lobo MD Lagophthalmos of left upper eyelid; [facility] Lagophthalmos of left upper eyelid, unspecified lagophthalmos type; [facility] Squamous cell carcinoma, ear, left [facility] OTOLARYNGOLOGY [place], [place] DEPT. [id number] [place], [place] [phone] [facility] Social History Tobacco Use Types Packs/Day Years Used Date Former Smoker Cigarettes 1 40 Quit: 01/09/20 03 Smokeless Tobacco: Never Used Alcohol Use Standard Drinks/Week Comments No 0 (1 standard drink = 0.6 oz pure alcoho l) Sex Assigned at Date Recorded Not on file documented as of this encounter Last Filed Vital Signs Vital Sign Reading Time Taken Comments Blood Pressure 136/72 05/13/2020 6:30 PM EST Pulse 59 05/13/2020 2:03 PM EST Temperature 36.4 ??C (97.5 ??F) 05/13/2020 4:10 PM EST Respiratory Rate 16 05/13/2020 6:30 PM EST Oxygen Saturation 99% 05/13/2020 6:30 PM EST Inhaled Oxygen Concentration - - Weight 69.4 kg (153 lb) 05/13/2020 2:03 PM EST Height 175.3 cm (5' 9) 05/13/2020 2:03 PM EST Body Mass Index 22.59 05/13/2020 2:03 PM EST documented in this encounter Discharge Instructions Discharge Radha Campbell RN - 05/13/2020 5:01 PM EST Next dose of acetaminophen (tylenol) can be taken at . Next dose of ibuprofen (motrin) can be taken at . POST ANESTHESIA INSTRUCTIONS Go home, rest, use caution on stairs. Change positions slowly. Do not smoke if you are alone. Diet light to regular as tolerated today. If nausea occurs start with clear liquids and progress slowly. No driving, operating machinery, alcoholic beverages and no important decisions for 24 hours. Monitor IV site for signs and symptoms of infection: increasing redness, swelling, foul drainage, ifoccurs contact M.D. Patients who have had endotrachial tubes (this tube, used by anesthesia department, is passed down your throat after you are asleep, to ensure safe air passage during your operation). A sore throat is normal due to the tube. Cold liquids or soothing lozenges will help ease the discomfort. The generalized muscle aches are due to the medication given to you just before the tube is inserted. As the medication wears off, you may develop muscle soreness, which usually goes away in 12-24 hours. Patient InstructionsJose White MD - 05/13/2020 3:42 PM EST Instructions for Patient at Discharge: What to expect: You will have soreness which will improve over the next several days around the G tube site. The area around the incision may be numb. This should recover over the next few months. Medications: Pain Control - use acetaminophen (Tylenol) and/or ibuprofen (Motrin, Advil) as needed. You can take 500 mg to 650 mg of Tylenol every 4-6 hours as needed. Do not exceed 4g acetaminophen per day and do not drink alcohol while taking tylenol. You can also take 400 to 600 mg of Ibuprofen (Motrin,Advil) every 6 hours as needed. Constipation - Consider the use of OTC Senna/Docusate, Miralax, Metamucil, prune juice or various suppositories if you have any constipation (especially if related to narcotic/opoid related pain medication) Wound Care: No specific care for tarsorrhaphy (eye lid suture). If it irritates you, you feel like suture is scratching your eye or any issues, please let us know and we will evaluate. G Tube Care: You are being discharged with a gastrostomy tube. This was placed by General Surgery. Please call them at [phone] if any concerns. OK to disconnect seals bag from gravity after four hours post op. After four hours post op, OK for medications per the G tube. OK for tube feeds per G tube 24 hours post op. Activity: A good rule of thumb is if it hurts don't do it. Keep your head elevated when lying flat. No heavy lifting or straining for the next week. No smoking, this is important for wound healing. Diet: Resume baseline diet Tube Feeding: Administer the tube feedings according to the following schedule/instructions as you have been told by nutrition. You should call your doctor if you develop: -Increasing pain and redness -Increasing drainage from the wound -Fever > 38.5Celsius or 101 Fahrenheit -Bleeding Contact: -You can reach the ENT clinic at [phone] for appointment questions. -The ENT triage nurse is available at [phone] -For urgent issues during evenings (5 PM - 7 AM) and weekends the ENT resident consulting property manager can be reached through the main hospital bumper machine operator at [phone] Follow Up: You will need to follow up with appointments as scheduled. If you need to see ENT, call to receive your date and time. Currently Scheduled Appointments and VNA instructions: Future Appointments and Orders Future Appointments and Orders Future Appointments Provider Department Dept Phone 05/14/2020 8:15 AM Eleazar Galdamez MD Radiation Oncology at [facility] Arrive at: [facility] door at end of hallway [phone] 05/14/2020 10:30 AM Gilda Jameson SLP Hematology/Oncology at [facility] Arrive at: [facility] door at end of hallway [phone] Please do not come in for this visit. Your provider will call you at the number you provided. 05/14/2020 10:30 AM ST[facility] RAD/ONC, TREATMENT Radiation Oncology at [facility] Arrive at: [facility] door at end of hallway [phone] 05/15/2020 10:30 AM [facility] RAD/ONC, TREATMENT Radiation Oncology at [facility] Arrive at: [facility] door at end of hallway [phone] 05/15/2020 11:00 AM [facility] INFUSION, ROOM Hematology Oncology at [facility] Arrive at: [facility] door at end of hallway [phone] 05/16/2020 7:45 AM [facility] RAD/ONC, TREATMENT Radiation Oncology at [facility] Arrive at: [facility] door at end of hallway [phone] 05/19/2020 11:00 AM Ashok Ritchie MD Hematology/Oncology at [facility] Arrive at: [facility] door at end of hallway [phone] 05/19/2020 12:00 PM ST[facility] INFUSION, ROOM Hematology Oncology at [facility] Arrive at: [facility] door at end of hallway [phone] 05/19/2020 1:[address] Hematology/Oncology at [facility] Arrive at: [facility] door at end of hallway [phone] 05/19/2020 4:00 PM ST[facility] RAD/ONC, TREATMENT Radiation Oncology at [facility] Arrive at: [facility] door at end of hallway [phone] 05/20/2020 7:45 AM STJ RAD/ONC, TREATMENT Radiation Oncology at [facility] Arrive at: [facility] door at end of hallway [phone] 05/20/2020 8:30 AM STJ INFUSION, ROOM Hematology Oncology at [facility] Arrive at: [facility] door at end of hallway [phone] 05/21/2020 8:00 AM STJ RAD/ONC, TREATMENT Radiation Oncology at [facility] Arrive at: [facility] door at end of hallway [phone] 05/21/2020 11:00 AM Eleazar Galdamez MD Radiation Oncology at [facility] Arrive at: [facility] door at end of hallway [phone] 05/22/2020 10:30 AM ST[facility] RAD/ONC, TREATMENT Radiation Oncology at [facility] Arrive at: [facility] door at end of hallway [phone] 05/22/2020 11:00 AM STJ INFUSION, ROOM Hematology Oncology at [facility] Arrive at: [facility] door at end of hallway [phone] 05/23/2020 7:45 AM [facility] RAD/ONC, TREATMENT Radiation Oncology at [facility] Arrive at: [facility] door at end of hallway [phone] 05/26/2020 11:00 AM Ashok Ritchie MD Hematology/Oncology at [facility] Arrive at: [facility] door at end of hallway [phone] 05/26/2020 12:00 PM STJ INFUSION, ROOM Hematology Oncology at [facility] Arrive at: [facility] door at end of hallway [phone] 05/26/2020 1:[address] Hematology/Oncology at [facility] Arrive at: [facility] door at end of hallway [phone] 05/26/2020 4:00 PM STJ RAD/ONC, TREATMENT Radiation Oncology at [facility] Arrive at: [facility] door at end of hallway [phone] 05/27/2020 7:45 AM STJ RAD/ONC, TREATMENT Radiation Oncology at [facility] Arrive at: [facility] door at end of hallway [phone] 05/27/2020 8:30 AM STJ INFUSION, ROOM Hematology Oncology at [facility] Arrive at: [facility] door at end of hallway [phone] 05/28/2020 7:45 AM STJ RAD/ONC, TREATMENT Radiation Oncology at [facility] Arrive at: [facility] door at end of hallway [phone] 05/28/2020 11:00 AM Eleazar Galdamez MD Radiation Oncology at [facility] Arrive at: [facility] door at end of hallway [phone] 11/06/2020 1:30 PM Silas Walters MD Dermatology at [place] Arrive at: [facility] [address] [phone] documented in this encounter Medications at Time of Discharge Medication Sig Dispensed Refills Start Date End Date acetaminophen (Tylenol) 500 Take 1,000 mg by 0 mg Tablet mouth every 8 hours as needed for Pain. Ibuprofen 200 mg Capsule Take by mouth as 0 needed. nitroGLYcerin (NITROSTAT) 0.4 as needed. 0 2017 mg Tablet, Sublingual ABILIFY 15 mg Tablet Take 15 mg by 0 12/07/2016 mouth daily. metoprolol succinate Take 1 tablet by 30 tablet 12 3 (TOPROL-XL) 50 mg 24 hr mouth daily. tablet atorvastatin (LIPITOR) 20 mg Take 40 mg by 0 tablet mouth daily. fenofibrate (TRICOR) 145 mg Take 145 mg by 0 tablet mouth daily. lamoTRIgine (LaMICtal) 200 mg Take 200 mg by 0 Tablet mouth 2 times daily. amitriptyline (ELAVIL) 50 mg Take 100 mg by 0 tablet mouth nightly. aspirin 81 mg EC tablet Take 81 mg by 0 mouth daily. dronabinoL (Marinol) 5 mg Take 1 capsule 60 capsule 0 202006/23/2020 CapsuleIndications: Squamous by mouth 2 times cell carcinoma of ear, left, daily (before Chemotherapy-induced nausea meals). OLANZapine (ZyPREXA) 5 mg Take 1 tablet by 30 tablet 1 10/202005/19/2020 TabletIndications: Squamous mouth nightly. cell carcinoma of ear, left, Chemotherapy-induced nausea diphenhydrAMINE/aluminum-magn Take 5 mLs by 119 mL 1 07/202006/25/2020 esium hydroxide with mouth See Admin simethicone/lidocaine (BMX) Instructions. (6.67 mg-0.83 mg-13.33 BML First mg-1.33 mg/mL) oral Mouthwash: liquidIndications: Squamous Swallow 5- 10 cell carcinoma of ear, left, mls before meals Odynophagia and as needed for pain with swallowing. No more than 8 dose per day emollient base (CREAM BASE Apply topically. 0 06/25/2020 TOP) Jeans Cream. Apply to area of radiation twice a day but no less than 2 hours before a treatment. prochlorperazine (Compazine) Take 1 tablet by 30 tablet 3 0 04/04/2020 06/25/2020 10 mg TabletIndications: mouth every 6 Chemotherapy-induced nausea hours as needed for Nausea. white petrolatum-mineral oiL Place 1 each 1 Tube 5 02/2709/15/2020 (Refresh-PM) into the left eye 2 times daily. carbox[address]ethylcell[address] Place 2 drops 2 Bottle 0 02/26/2020 09/15/2020 (REFRESH PLUS) 0.5 % into both eyes 4 Dropperette times daily. documented as of this encounter H&P Notes Talat Rodriguez MD - 05/13/2020 2:18 PM EST [facility] Department of Acute Care Surgery Consult Note Consult Reason: Enteral access HPI: Ward Santamaria is a 69 y.o. 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 He is here for G tube and DL and tarsorrhaphy. He has no appetite and is not able to tolerate any PO intake. He has lost 25 pounds in the last 3 weeks. PMH/PSH: ?? Prior Abdominal Surgeries: None History reviewed. No pertinent past medical history. Past Surgical History: Procedure Laterality Date ??? IR MEDIPORT PLACEMENT/EXCHANGE 04/08/2020 IR Mediport Placement 04/08/2020 Mann Escobar APRN [facility] INTERVENTIONL RAD ??? KIDNEY STONE SURGERY ??? PRG SOMATOSENSORY TEST, ANY/ALL PER. NERVES, TRUNK OR HEAD N/A 02/20/2020 FACIAL NERVE MONITORING, SETUP PERIPHERAL (WRVU 0.54) performed by Osman Barnett MD at [facility] MAIN OR ??? PRO ADJ TISS TRANSFER/REARRANGEMENT ANY AREA 30.1-60 SQCM Left 02/20/2020 ADJACENT TISSUE TRANSFER OR REARRANGEMENT; 30.1 TO 60.0 SQ CM, THORAX (WRVU 12.65) performed by Osman Barnett MD at [facility] MAIN OR ??? PRO ADJ TISS TRANSFER/REARRANGEMENT ANY AREA EA ADDL 30SQCM Left 02/20/2020 ADJACENT TISSUE TRANSFER OR REARRANGEMENT; EA ADD'L 30.0 SQ CM, OR PART OF (WRVU 3.73) performed byOsman Barnett MD at [facility] MAIN OR ??? PRO COLONOSCOPY, REMV LESN, SNARE N/A 07/07/2015 COLONOSCOPY, POLYPECTOMY, REMOVAL LESION BY SNARE performed by Jose Manuel Heller MD at [facility] ENDOSCOPY ??? PRO EXC PAROTD, TOTAL, DISSECT 5TH NERV Left 02/20/2020 EXCISION OF PAROTID TUMOR OR PAROTID GLAND, TOTAL, WITH DISSECTION AND PRESERVATION OF FACIAL NERVE(WRVU 19.53) performed by Osman Barnett MD at [facility] MAIN OR ??? PRO EXC SKIN MALIG 3.1-4CM FACE, FACIAL Left 02/20/2020 EXC MALIGNANT LESION, 3.1 TO 4.0CM, FACE (WRVU 4.34) performed by Osman Barnett MD at [facility] MAIN OR ? ? PRO EXC SKIN MALIG >4CM FACE, FACIAL Left 02/20/2020 EXC MALIGNANT LESION, >4.0CM, EARS (WRVU 6.26) performed by Osman Barnett MD at [facility] ??? PRO MICROSURG TECHNIQUES, REQ OPER MICROSCOPE N/A 02/20/2020 MICROSCOPE USE (WRVU 3.46) performed by Neo Gilman MD at [facility] OR ??? PRO MUSCLE-SKIN FLAP, TRUNK Left 02/20/2020 FLAP, MYOCUTANEOUS OR FASCIOCUTANEOUS, TRUNK (WRVU 19.86) performed by Osman Barnett MD at [facility] MAIN OR ??? PRO REMOVAL NODES, NECK, CERV MOD RAD Left 02/20/2020 @CERVICAL LYMPHADENECTOMY (MODIFIED RADICAL NECK DISSECTION) (WRVU 23.95) performed by Osman Barnett MD at [facility] MAIN OR ??? PRO RESECT TEMPORAL BONE, CAMERA REPAIRMAN APPRCH Left 02/20/2020 @RESECTION TEMPORAL BONE, EXTERNAL APPROACH (WRVU 37.42) performed by Neo Gilman MD at [facility] MEDICATIONS: Current Outpatient Medications Medication Instructions ??? Abilify 15 mg, Oral, DAILY ??? acetaminophen (TYLENOL) 1,000 mg, Oral, EVERY 8 HOURS PRN ??? amitriptyline (ELAVIL) 100 mg, NIGHTLY ??? aspirin EC 81 mg, DAILY ??? atorvastatin (LIPITOR) 20 mg, DAILY ??? carboxymethylcellulose (REFRESH PLUS) 0.5 % Dropperette 2 drops, Both Eyes, 4 TIMES DAILY ??? diphenhydrAMINE/aluminum-magnesium hydroxide with simethicone/lidocaine (BMX) (6.67 mg-0.83 mg-13.33 mg-1.33 mg/mL) oral liquid 5 mLs, Oral, SEE ADMIN INSTRUCTIONS, BML First Mouthwash: Swallow 5- 10 mls before meals and as needed for pain with swallowing. No more than 8 dose per day ??? dronabinoL (MARINOL) 5 mg, Oral, 2 TIMES DAILY BEFORE MEALS ??? emollient base (CREAM BASE TOP) Topical (Top), Jeans Cream. Apply to area of radiation twice a day but no less than 2 hours before a treatment. ??? fenofibrate (TRICOR) 145 mg, DAILY ??? Ibuprofen 200 mg Capsule Oral, PRN ??? lamoTRIgine (LAMICTAL) 200 mg, 2 TIMES DAILY ??? LORazepam (ATIVAN) 0.5-1 mg, Oral, EVERY 6 HOURS PRN ??? metoprolol succinate XL (TOPROL-XL) 50 mg, Oral, DAILY ??? nitroGLYcerin (NITROSTAT) 0.4 mg Tablet, Sublingual PRN ??? OLANZapine (ZYPREXA) 5 mg, Oral, NIGHTLY ??? ondansetron (ZOFRAN) 8 mg, Oral, EVERY 8 HOURS PRN, Use if prochlorperazine is not effective. ??? predniSONE (DELTASONE) 10 mg, Oral, DAILY ??? prochlorperazine (COMPAZINE) 10 mg, Oral, EVERY 6 HOURS PRN ??? white petrolatum-mineral oiL (Refresh-PM) 1 each, Left Eye, 2 Times Daily ALLERGIES: Allergies Allergen Reactions ??? Penicillins rash ??? Codeine Phosphate Rash FAMILY HISTORY: Family History Problem Relation Age of Onset ??? Other Father enlarged heart ??? Skin Cancer Brother 35 rapid dissemination; of metastatic disease SOCIAL HISTORY: Social History Socioeconomic History ??? [...] quittin.3 ??? Smokeless tobacco: Never Used Substance and Sexual Activity ??? Alcohol use: No ??? Drug use: Yes Frequency: 1.0 times per week Types: Marijuana Comment: rare ??? Sexual activity: Not on file Other Topics Concern ??? Do You live alone? Not Asked ??? Tobacco in Home Not Asked Social History Narrative (02/2020) lives with his of 49 years in [facility]. 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 Currently [...] of Exercise per Session: Not on file REVIEW OF SYSTEMS: Physical Exam: Last value Range last 24 hrs Temperature Temp: 36.7 ??C (98.1 ??F) Temp: [36.7 ??C (98.1 ??F)] Heart Rate Heart Rate: 59 Heart Rate: [59] Blood Pressure BP: 153/69 BP: (153)/(69) BP (Arterial Line): -- Respiratory Rate Resp: 16 Resp: [16] SpO2 SpO2: 100 % SpO2: [100 %] General: NAD, conversant CVS: regular rate Pulm: non-labored breathing Abd: soft, NT ND Skin: warm, no edema Labs: No results for input(s): WBC, HGB, HCT, PLATELET in the last 72 hours. No results for input(s): NA, K, CL, CO2, BUN, CREATININE, GLUCOSE in the last 72 hours. No results for input(s): PT, INR in the last 72 hours. Invalid input(s): PTT Assessment/Recommendation: Ward Santamaria is a 69 y.o. male PMH significant for CAD, BPH, H/O drug use, Hep C, and BPH with cancerinvolving his left parotid and left EAC. He is here for G tube and DL and tarsorrhaphy. Talat Rodriguez MD Acute Care Surgery 05/13/2020 Kaylan Enrique MD - 05/13/2020 2:03 PM EST OTOLARYNGOLOGY - HEAD & NECK SURGERY INTERVAL H&P NOTE Name: Ward Santamaria Age/Sex: 69 y.o. male Attending: Osman Barnett MD Hospital Day: 1 Day of Surgery Interval History Please see clinic/scanned H&P dated 03/31/2020. In brief, Ward Santamaria presents today for G tube and DL and tarsorrhaphy There have been no changes to his history. COVID Test Not performed. Patient denies symptoms of COVID, exposure to COVID or any known COVID contacts. Physical Exam Patient Vitals for the past 24 hrs: Temp Pulse Resp BP SpO2 O2 Flow Rate (L/min) O2 Device 05/13/20 1403 36.7 ??C (98.1 ??F) 59 16 153/69 100 % 0 L/min RA Gen: No acute distress, alert and answers questions appropriately CV: Regular rate Pulm: Unlabored breathing Abd: Abdomen soft and non-tender Ext: No peripheral edema ASSESSMENT & PLAN Plan for DL with G tube by Gen Surg and tarsorrhaphy. Consent signed, dated, placed in chart Ok to proceed with scheduled operation. Kaylan Enrique MD, PGY4, Pager [phone] 05/13/20 2:05 PM ENT Team Pager: [phone] documented in this encounter Miscellaneous Notes Op Note - Osman Barnett MD - 05/13/2020 3:25 PM EST [facility] Operative Note Patient Name: Ward Santamaria : [id number] MR#: [id number] Case Date: 05/13/2020 Surgeon: Osman Barnett MD Divakar, Prashanthi, MD Mouzourakis, Maggie, MD Diagnosis: Failure to Thrive & Left Eye Exposure/Facial Nerve Branch Dysfunction Procedure: 1. Direct Laryngoscopy for Hypopharyngeal Exposure 2. Tarsorrhaphy Anesthesia: General via Oral ETT Estimated Blood Loss: 5 cc HPI/Surgical Indications: Ward Santamaria is a 69 y.o. 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 Findings: Hypopharyngeal exposure for G tube inserted by General Surgery. 4-0 prolene suture for tarsorrhaphy on left eye. Procedure Description: Patient was brought to the operating room and identified. General anesthesia was induced. Patient was prepped and draped in the standard sterile fashion. Time out was performed. After protecting the upper gums/teeth, a Prateek laryngoscope was introduced into the oral cavity, positioned to allow for visualization of the hypopharynx and placed in suspension with the Lewy device. General surgery used the hypopharyngeal exposure to insert their endoscope for percutaneous gastrostomy tube placement. Please see their operative note for further details. After the gastrostomy tubewas placed, general surgery removed the endoscope and the patient was taken out of suspension and the Prateek laryngoscope was removed. 4-0 prolene suture was used to perform tarsorrhaphy on left eye by going through the tarsal plate and ensuring that the suture knot was not irritating the eye. Eye was washed with saline solution. Patient was turned back to anesthesia. All counts were correct. Kaylan Enrique MD 05/13/2020 Attestation: Case Date: 05/13/2020 I was present and I participated during the entire procedure (does not need to include opening and closing). OSMAN BARNETT MD 05/13/2020 Op Note - Baldemar Wood MD - 05/13/2020 3:25 PM EST [facility] Operative Note Patient Name: Ward Santamaria : [id number] MR#: [id number] Case Date: 05/13/2020 Surgeon: Surgeon(s) and Role: Panel 1: * Osman Barnett MD - Primary * Kaylan Enrique MD - Resident * Enma Ragland MD - Resident Panel 2: * Baldemar Wood MD - Primary * Librado Patel MD- Resident * Mateo Rodriguez MD- Resident. Preoperative diagnosis: facial palsy poor eye closure Postoperative diagnosis: facial palsy poor eye closure Procedure(s) (LRB): TEMPORARY CLOSURE OF EYELID BY SUTURE, TARSORRHAPHY (WRVU 1.35) (Left) LARYNGOSCOPY, WITH MICROSCOPE (WRVU 2.57) (N/A) ENDOSCOPY W DIRECTED PLACEMENT PERCUTANEOUS GASTROSTOMY TUBE-PEG (WRVU 3.66) (N/A) Findings: PEG tube placed Anesthesia: General Estimated Blood Loss: * No values recorded between 05/13/2020 3:25 PM and 05/13/2020 4:00 PM * Specimens removed during surgery: None Drains: None Surgical Closure: No closure. Disposition: ENT to complete their portion of the case. Condition: doing well without problems (Please see the Surgical Encounter Summary for any Implant and Specimen details pertinent to this patient.) HPI/Surgical Indications: Ward Santamaria is a 69 y.o. 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 He is here for G tube and DL and tarsorrhaphy. He has no appetite and is not able to tolerate any PO intake. He has lost 25 pounds in the last 3 weeks. Procedure Description: The patient was taken to the operating room and general anesthesia was induced. He was transferred to OR table Timeout was performed. ENT performed direct laryngoscopy. ?? The EGD scope was inserted into the oropharynx and passed through to the stomach and duodenum. The stomach had linear erythema present in the antrum but no ulcerations. The duodenum appeared normal. Anarea of 1:1 ballotment and transillumination was identified in the left upper quadrant of the abdomen. The area of the abdomen was prepped and draped in a sterile fashion with chlorohexadine. The skin was anesthetized with 1% lidocaine. The finder needle was inserted into the abdomen and observed entering the stomach at the same time bubbles were seen in the saline syringe. Incision was made in the skin. The needle and catheter were passed into the stomach under direct visualization. The needle was withdrawn and the blue loop was passed through the catheter. The blue loop was grasped with an endoscopic loop and brought out through the stomach. The PEG tube loop was looped through the blue loop andthe PEG tube was pulled through the oropharynx and into the stomach and across the abdominal wall. The EGD scope was reinserted and the PEG site was directly examined. The PEG was snug against the stomach wall but could easily twirl 360 degrees. The PEG was affixed at the skin at 3.5 cm with the bumper. The PEG was hooked to gravity drainage. We then turned the case over the ENT for their portion of the procedure. Attestation: Case Date: 05/13/2020 I was present and I participated during the entire procedure (does not need to include opening and closing). BALDEMAR WOOD MD 05/16/2020 documented in this encounter Plan of Treatment Upcoming Encounters Date Type Specialty Care Team Description 10/21/2021 Infusion Hematology and Oncology 11/09/2021 Office Visit Hematology and Oncology Alhaji Ritchie MD [facility] DR ONCOLOGY DEPT. [place], [place] [address] (Wo rk) 11/09/2021 Infusion Hematology and Oncology 12/10/2021 Office Visit Dermatology Silas Walters MD [address] DERMATOLOGY [place], [place] [address] (Wo rk) 09/19/2039 Hospital Encounter Surgery Osman Barnett MD [facility] OTOLARYNGOLOGMelvin Su EPT. 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, EST ear, left TARSORRHAPHY Lagophthalmos of left upper eyelid, unspecified lagophthalmos type EGD-PEG PLACEMENT Routine 05/13/2020 3:53 PM Squamous cell car cinoma, EST ear, left Lagophthalmos of left upper eyelid, unspecified lagophthalmos type ENDOSCOPY W DIRECTED Yes 05/13/2020 3:05 PM Squamous cell carcinoma, PLACEMENT PERCUTANEOUS EST ear, left GASTROSTOMY TUBE-PEG Lagophthalmos of lef t (WRVU 3.66) upper eyelid, unspecified lagophthalmos type LARYNGOSCOPY, WITH Yes 05/13/2020 3:05 PM Squamous cell ca rcinoma, MICROSCOPE (WRVU 2.57) EST ear, left Lagophthalmos of left upper eyelid, unspecified lagophthalmos type TEMPORARY CLOSURE OF Yes 05/13/2020 3:05 PM Squamous cell carcinoma, EYELID BY SUTURE, EST ear, left TARSORRHAPHY (WRVU Lagophthalmos of left 1.35) upper eyelid, unspecified lagophthalmos type LARYNGOSCOPY, WITH Routine 05/13/2020 1:28 PM Squamous cell ca rcinoma, MICROSCOPE EST ear, left Lagophthalmos of left upper eyelid, unspecified lagophthalmos type documented in this encounter Visit Diagnoses Diagnosis Squamous cell carcinoma, ear, left Lagophthalmos of left upper eyelid, unsp ecified lagophthalmos type documented in this encounter Admitting Diagnoses Diagnosis Squamous cell carcinoma, ear, left Lagophthalmos of left upper eyelid Lagophthalmos, unspecified documented in this encounter Administered Medications Inactive Administered Medications - up to 3 most recent administrations Medication Order MAR Action Action Date Dose Rate Site acetaminophen (Tylenol) tablet Given 05/13/2020 2:21 PM EST 1,00 0 mg 1,000 mg 1,000 mg, Oral, ONCE, 1 dose, On Tue05/13/20 at 1430, Administer with SIP of H2O only., Day of Surgery (Day of Procedure), Routine ibuprofen (Advil;Motrin) tablet 400 mg Given 05/13/2020 4:47 PM EST 400 mg 400 mg, Oral, EVERY 4 HOURS PRN, 1 dose, Starting on Tue05/13/20 at 1614, Until Tue05/13/20 at 1647, Pain, Do not administery in recovery if patient received IV toradol intra-operatively, Administer orally with milk or food to minimize GI irritation. Maximum dose of 3200 mg from all sources in 24 hours., PACU Recovery, Routine oxyCODONE (Roxicodone) tablet 5 mg Given 05/13/2020 4:48 PM EST 5 mg 5 mg, Oral, EVERY 4 HOURS PRN, 1 dose, Starting on Tue05/13/20 at 1614, Until Tue05/13/20 at 1648, Pain, PACU Recovery, Routine oxyCODONE (Roxicodone) tablet 5 mg Given 05/13/2020 6:10 PM EST 5 mg 5 mg, Oral, ONCE, 1 dose, On Tue05/13/20 at 1830, PACU Recovery, Routine documented in this encounter Active and Recently Administered Medications Times are shown in EST. Scheduled Medication Order 05/11/2020 05/12/2020 05/13/2020 acetaminophen (Tylenol) tablet 1,000 mg (COMPLETED) 1421 (Given - Provider: Kylie Thompson, [place]) 1,000 mg, Oral, ONCE, 1 dose, Tue 1 at 1430, Administer with SIP of H2O only., Day of Surgery (Day of Procedure), Routine oxyCODONE (Roxicodone) tablet 5 mg (CANCELED) 1810 (Given - Provider: Radha Rosas RN) 5 mg, Oral, ONCE, 1 dose, 05/13/20 at 1830, PACU Recovery, Ro utine PRN Medication Order 05/11/2020 05/12/2020 05/13/2020 ibuprofen (Advil;Motrin) tablet 400 mg (COMPLETED) 1647 (Given - Provider: Radha Rosas RN) 400 mg, Oral, EVERY 4 HOURS PRN, 1 dose, Starting 05/13/20 at 1614, Until 05/13/20 at 1647, Pain, Do not administery in recovery if patient received IV toradol intra-operatively, Administer orally with milk or food to minimize GI irrita tion. Maximum dose of 3200 mg from all sources in 24 hours., PACU Recovery, Routine oxyCODONE (Roxicodone) tablet 5 mg (COMPLETED) 1648 (Given - Provider: Radha Rosas RN) 5 mg, Oral, EVERY 4 HOURS PRN, 1 dose, S tarting 05/13/20 at 1614, Until 05/13/20 at 1648, Pain, PACU Recovery, Routine documented in this encounter Care Teams Social Service Liaison Relationship Specialty Start Date End Date Tara Joya MD PCP - General Family Medicine 05/16/[address] [place] [address] documented as of this encounter
--- OUTSIDE RECORDS SUMMARY | 2021-10-21 07:59 | XMS_ITS | Encounter Summary ---
:1950 Author Organization [facility] [place] [address] Care Team Providers Name Role Phone Tara Joya MD Primary Care Provider [phone] Reason for Referral Consultation (Routine) - Closed Specialty Diagnoses / Procedures Referred By Contact Refer red To Contact General Surgery Diagnoses Squamous cell carcinoma, ear, left Lagophthalmos of left upper eyelid, unspecified lagophthalmos type Osman Barnett, [facility] Gen Surgery 4l MD [facility] [place] [phone] Fax: Referral ID Status Reason Start Date Expiration Date Visits V isits Requested Authorized [id number] Closed Consult, 05/08/2020 05/08/2021 1 1 Test & Treat Encounter Details Date Type Department Care Team Description 05/08/2020 Orders Only Otolaryngology at [facility] Ericka, Squamous cell carcinoma, ear , left; [facility] Sharlene Lobo MD Lagophthalmos of left upper eyelid, [place] [address] [facility] [phone] [place] [address] Social History Tobacco Use Types Packs/Day Years [...] MD [facility] DR ONCOLOGY DEPT. [place] [address] (Wo rk) 11/09/2021 Infusion Hematology and Oncology 12/10/2021 Office Visit Dermatology Silas Walters MD [address] [place] [address] DERMATOLOGY [place], [place] [address] (Wo rk) 09/19/2039 Hospital Encounter Surgery Osman Barnett MD [facility] OTOLARYNGOLOGY D EPT. [place], [place] [address] (Wo rk) Scheduled Procedures Name [...] Routine Squamous cell Ordered : General Surgery carcinoma, ear, left 05/08/2020 Lagophthalmos of left upper eyelid, unspecified lagophthalmos type documented as of this encounter Visit Diagnoses Diagnosis Squamous cell carcinoma, ear, left Lagophthalmos of left upper eyelid, unsp ecified lagophthalmos type documented in this encounter Care Teams Flue Dust Laborer Relationship Specialty Start Date End Date Tara Joya MD PCP - General Family Medicine 05/16/[address] [place] [address] documented as of this encounter
--- OUTSIDE RECORDS SUMMARY | 2021-10-21 07:59 | XMS_ITS | Encounter Summary ---
:1950 Author Organization [place] [address] Care Team Providers Name Role Phone Tara Joya MD Primary Care Provider [phone] Encounter Details Date Type Department Care Team Description 05/12/2020 Notes Only Hematology/Oncology at [address] [place] [phone] Social History Tobacco Use Types Packs/Day Years Used Date Former Smoker Cigarettes 1 40 Quit: 01/09/20 03 Smokeless Tobacco: Never Used Alcohol Use Standard Drinks/Week Comments No 0 (1 standard drink = 0.6 oz pure alcoho l) Sex Assigned at Date Recorded Not on file documented as of this encounter Progress Notes Caterina Aguirre RD - 05/12/2020 12:50 PM EST FEEDING TUBE ORDERS Patient name: Ward Santamaria : 1950 Diagnosis: Squamous cell carcinoma of left ear Ht/Weight: Wt Readings from Last 3 Encounters: 05/12/20 69.7 kg (153 lb 9.6 oz) 05/08/20 71.5 kg (157 lb 9.6 oz) 05/07/20 72.4 kg (159 lb 9.6 oz) Estimated body mass index is 22.37 kg/m?? as calculated from the following: Height as of an earlier encounter on 05/12/20: 176.5 cm (5' 9.49). Weight as of an earlier encounter on 05/12/20: 69.7 kg (153 lb 9.6 oz). Estimated Kcal: 5362-7036 kcal Estimated Protein needs: 105 gm/day Estimated Fluid needs: 2.1 L/day minimum Goal : 6 cans/day Method of Feeding: [place] (CPT B4036) Recommend 6 cans of Nutren 1.5 via G-tube/day to provide 2250 kcal, 102 gm of protein and 1146 mLs of free water. [place] feeding method at 2 cans per feeding over 60 minutes for 3 times/d. Patient requires 1100 mLs or 37 ounces water/day as water flushes. Patient needs TF for > 90 days. Pt will need 11 refills. Pt needs pole, syringes, flexi-traks, and gravity bags. Pt DOES NOT need VNA services at this time. Medical Supply Co. : [employer] Toll Free: Home Care Co.: [employer] Toll Free: Doctor/AIR CONDITIONING COIL ASSEMBLER: (printed name) Signature: Dietitian: Caterina Aguirre RD Phone: [place] [phone] documented in this encounter Plan of Treatment Upcoming Encounters Date Type Specialty Care Team Description 10/21/2021 Infusion Hematology and Oncology 11/09/2021 Office Visit Hematology and Oncology Alhaji Ritchie MD [facility] DR ONCOLOGY DEPT. [place], [place] [address] (Jin carson) 11/09/2021 Infusion Hematology and Oncology 12/10/2021 Office Visit Dermatology Silas Walters MD [address] DERMATOLOGY [place], [place] [address] (Jin carson) 09/19/2039 Hospital Encounter Surgery Osman Barnett MD [facility] OTOLARYNGOLOGY D EPT. [place], [place] [address] (Wo rk) Scheduled Procedures Name [...] on filedocumented in this encounter Care Teams Quill Winder Relationship Specialty Start Date End Date Tara Joya MD PCP - General Family Medicine 05/16/[address] [place] [address] documented as of this encounter
--- OUTSIDE RECORDS SUMMARY | 2021-10-21 07:59 | XMS_ITS | Encounter Summary ---
:1950 Author Organization [facility] [place] [address] Care Team Providers Name Role Phone Tara Joya MD Primary Care Provider [phone] Encounter Details Date Type Department Care Team Description 05/07/2020 Office Visit Radiation Oncology at [facility] Galdamez, Squamous cell [facility] carcinoma of ear, left [address] [place] [address] RADIATION ONCOLOGY [phone] [place] [phone] Social History Tobacco Use Types Packs/Day Years Used Date Former Smoker Cigarettes 1 40 Quit: 01/09/20 03 Smokeless Tobacco: Never Used Alcohol Use Standard Drinks/Week Comments No 0 (1 standard drink = 0.6 oz pure alcoho l) Sex Assigned at Date Recorded Not on file documented as of this encounter Last Filed Vital Signs Vital Sign Reading Time Taken Comments Blood Pressure 125/75 05/07/2020 12:17 PM EST Pulse 70 05/07/2020 12:17 PM EST Temperature 37 ??C (98.6 ??F) 05/07/2020 12:17 PM EST Respiratory Rate - - Oxygen Saturation 100% 05/07/2020 12:17 PM EST Inhaled Oxygen Concentration - - Weight 72.4 kg (159 lb 9.6 oz) 05/07/2020 12:17 PM EST Height - - Body Mass Index 23.24 05/05/2020 11:28 AM EST documented in this encounter Progress Notes Eleazar Galdamez MD - 05/07/2020 8:30 AM EST ON TREATMENT VISIT NOTE Ward Santamaria is a 69 y.o. 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 Adjuvant chemoradiotherapy Current treatment dose: 36 Gy in 18 fractions. Anticipated total dose: 66 Gy in 33 fractions. Concomitant Therapy: Y ONC BCA CHEMO (AMB) 04/14/2020 04/21/2020 04/28/2020 Day, Cycle Day 1, Cycle 1 Day 8, Cycle 1 Day 15, Cycle 1 CISplatin (Platinol) IV 40 mg/m2/dose 40 mg/m2/dose 40 mg/m2/dose ONC BCA CHEMO (AMB) 05/05/2020 Day, Cycle Day 22, Cycle 1 CISplatin (Platinol) IV 35 mg/m2/dose Evaluation of Port Verification Films: PORT films have been reviewed, please see ARIA for details. Changes in medical condition Pain: denies oropharyngeal pain Secretions/Dryness: increased xerostomia, severe dysgeusia. Using BSSW. Swallowing Function: no issues excepting dryness Nutrition: all via mouth, no G tube. Limited by dysgeusia and nausea. Skin: itching, no longer packing area adjacent to residual ear GI: -N/V: persistent nausea: marinol, zyprexa, compazine, ondansetron to no effect. No vomiting. -Bowels: no issues Eye: increasing irritation of left eye, notes sensation of foregin body Other: insomnia since initiation of Zyprexa. Nutrition Assessment: Weight : 77.6 kg initial Change: 76.4 => 72.4 Objective: SKIN: brisk skin erythema left neck, with no erythema within 1 cm of eye, dry desquamation and scabbing, primarily left SCLV MUCOSA: patchy mucositis left buccal mucosa, very dry Eye: left eye with conjunctival injection lower half, ectropion present Assessment: Moderate skin toxicity tolerating. Weight loss due to nausea/ dysgeusia, nausea predominating. Left eye with conjunctival injection CTCAE TOXICITY GRADES (see below for mcneal): Site Grade Skin 2 Xerostomia 1 Pharyngeal Mucositis 0 Dysphagia 0 Hoarseness 0 TREATMENT RESPONSE: No change Plan: ?? Continue RT per prescription ?? Pain control: ?? OTC medications ?? Skin: Aquaphor cream prn, Mepilex ?? Mucositis: ?? Pain control: see above ?? Oral hygiene consisting of baking soda/salt rinse at least 8 times daily recommended, he has not been using and will start ?? Alimentation: stranner following ?? Weight decreased, all by mouth at this time. Emphasized need to increase caloric intake. Hydration tomorrow. ?? N/V: current regimen not working, to try MJ over the next two days ?? Eye: not due to radiotherapy, field is not adjacent. Increasing corneal irritation due to lower lid lag. Will discuss with Dr. Barnett. ?? Re-simulate today due to weight loss CTCAE v4.03 scales for reference Skin 0 [...] and Oncology Alhaji Ritchie MD [facility] DR ONCOLOGY DEPT. [place], [place] [address] (Wo rk) 11/09/2021 Infusion Hematology and Oncology 12/10/2021 Office Visit Dermatology Silas Walters MD [address] DERMATOLOGY [place], [place] [address] (Wo rk) 09/19/2039 Hospital Encounter Surgery Osman Barnett MD [facility] OTOLARYNGOLOGY D EPT. [place], [place] [address] (Wo rk) Scheduled Procedures Name [...] left documented in this encounter Care Teams Cardroom Drawing Runner Relationship Specialty Start Date End Date Tara Joya MD PCP - General Family Medicine 05/16/[address] [place] [address] documented as of this encounter
--- OUTSIDE RECORDS SUMMARY | 2021-10-21 07:59 | XMS_ITS | Encounter Summary ---
:1950 Author Organization [facility] [place] [address] Care Team Providers Name Role Phone Tara Joya MD Primary Care Provider [phone] Reason for Visit Reason Onset Date Comments Other 05/06/2020 LVM with about re-sim 05/07/20 Encounter Details Date Type Department Care Team Description 05/06/2020 Telephone Radiation Oncology at [facility] her (LVM with [facility] about re-sim 05/07/20) [address] [place] [phone] Social History Tobacco Use Types Packs/Day [...] [facility] DR ONCOLOGY DEPT. [place], [place] [address] (Wo yamileth) 11/09/2021 Infusion Hematology and Oncology 12/10/2021 Office Visit Dermatology Silas Walters MD [address] [place] [address] DERMATOLOGY [place], [place] [address] (Wo yamileth) 09/19/2039 Hospital Encounter Surgery Osman Barnett MD [facility] OTOLARYNGOLOGY D EPT. [place], [place] [address] (Wo rk) Scheduled Procedures Name [...] on filedocumented in this encounter Care Teams Guidance Consultant Relationship Specialty Start Date End Date Tara Joya MD PCP - General Family Medicine 05/16/[address] [place] [address] documented as of this encounter
--- OUTSIDE RECORDS SUMMARY | 2021-10-21 07:59 | XMS_ITS | Encounter Summary ---
:1950 Author Organization [facility] [place] [address] Care Team Providers Name Role Phone Tara Joya MD Primary Care Provider [phone] Reason for Visit Reason Comments IV Medication Hydration Treatment/Therapy Plan Authorization (Routine) - Closed Specialty Diagnoses / Procedures Referred By Contact Refer red To Contact Diagnoses Squamous cell carcinoma of ear, left Chemotherapy-induced nausea Ashok Ritchie MD [facility] Hem Onc Infusion [address] [place] [phone] Fax: Referral ID Status Reason Start Date Expiration Date Visits Requ ested Visits Authorized [id number] Closed 03/10/2020 03/10/2021 99 99 Encounter Details Date Type Department Care Team Description 05/06/2020 Infusion Hematology Oncology at [facility] uamous cell carcinoma of ear, left; [facility] Chemotherapy-induced nausea [address] [place] [phone] Social History Tobacco Use Types Packs/Day Years Used Date Former Smoker Cigarettes 1 40 Quit: 01/09/20 03 Smokeless Tobacco: Never Used Alcohol Use Standard Drinks/Week Comments No 0 (1 standard drink = 0.6 oz pure alcoho l) Sex Assigned at Date Recorded Not on file documented as of this encounter Progress Notes Amanda Wilkinson RN - 05/06/2020 1:30 PM EST INFUSION THERAPY ADMINISTRATION NOTES DIAGNOSIS: Squamous cell cancer of the left ear CYCLE 1 Day 24 REASON FOR VISIT: Hydration & Antiemetics SUBJECTIVE Ward offers no complaints. His skin looks red but not irritated. He reports his mouth feels good. Heis getting smoothie in while he is hydrating. OBJECTIVE IV ACCESS: Mediport accessed, blood return present and flushes easily. REACTIONS (DESCRIPTION, TIME, INTERVENTION AND EFFECTIVENESS) none ASSESSMENT Ward was awake, alert and tolerated treatment well. PLAN Return to clinic per routine. documented in this encounter Plan of Treatment Upcoming Encounters Date Type Specialty Care Team Description 10/21/2021 Infusion Hematology and Oncology 11/09/2021 Office Visit Hematology and Oncology Alhaji Ritchie MD [facility] DR ONCOLOGY DEPT. [place], [place] [address] (Wo rk) 11/09/2021 Infusion Hematology and Oncology 12/10/2021 Office Visit Dermatology Silas Walters MD [address] [place] [address] DERMATOLOGY [place], [place] [address] (Wo rk) 09/19/2039 Hospital Encounter Surgery Osman Barnett MD [facility] OTOLARYNGOLOGY D EPT. [place], [place] [address] (Jin rk) Scheduled Procedures Name [...] Rate Site heparin (pf) (porcine) (100 Given 05/06/2020 2:38 PM EST 500 Uni ts units/mL) flush 5 mL syringe 500 Units 500 Units, Intravenous, ONCE PRN, Starting on Tue05/06/20 at 1323, Until Tue05/06/20 at 1719, Line Care, Refer to Intravenous (IV) Procedure: Accessing Implanted Vascular Access Devices (654) procedure and/or Intravenous (IV) Job Aid: Adult Flushing & Catheter Care (5084) job aid for additional information regarding guidelines and administration., Routine ondansetron (Zofran) tablet 16 mg Given 05/06/2020 1:36 PM EST 16 mg 16 mg, Oral, ONCE, 1 dose, On Tue05/06/20 at 1345, Routine sodium chloride 0.9 % (flush) flush 5-20 mL Given 05/06/2020 2:38 PM EST 20 mLs 5-20 mL, Intravenous, EVERY 1 MIN PRN, Starting on Tue05/06/20 at 1323, Until Tue05/06/20 at 1719, Line Care, Flush pertains to all indwelling lines. Flush per protocol found in the job aid using the link provided on this medication record. Refer to Intravenous (IV) Job Aid: Adult Flushing & Catheter Care (2107) job aid for additional information regarding guidelines and administration., Routine sodium chloride 0.9% infusion New Bag 05/06/2020 1:31 PM EST 1,000 mLs 1000 mL/hr 1,000 mL, at 1,000 mL/hr, Intravenous, CONTINUOUS, Starting on Tue05/06/20 at 1345, Until Tue05/06/20 at 1444 documented in this encounter Care Teams Die Baker Relationship Specialty Start Date End Date Tara Joya MD PCP - General Family Medicine 05/16/[address] [place] [address] documented as of this encounter
--- OUTSIDE RECORDS SUMMARY | 2021-10-21 07:59 | XMS_ITS | Encounter Summary ---
:1950 Author Organization [facility] [place] [address] Care Team Providers Name Role Phone Tara Joya MD Primary Care Provider [phone] Encounter Details Date Type Department Care Team Description 05/21/2020 TH Visit Hematology/Oncology at Gilda Jameson, ([facility]) [address] [phone] Social History Tobacco Use Types Packs/Day Years Used Date Former Smoker Cigarettes 1 40 Quit: 01/09/20 03 Smokeless Tobacco: Never Used Alcohol Use Standard Drinks/Week Comments No 0 (1 standard drink = 0.6 oz pure alcoho l) Sex Assigned at Date Recorded Not on file documented as of this encounter Miscellaneous Notes Treatment - Therapy - Gilda Jameson, LONG - 05/21/2020 11:15 AM ESTSummary: BUILDING ANALYST/SUPERVISOR Telephone Communication BUILDING ANALYST/SUPERVISOR Communication Note Briefly spoke with patient and spouse Nika re: ongoing prophylactic swallowing exercise during course of treatment; patient is tyrell to tolerate some water but otherwise not tolerating much else at this time. Patient agreeable to follow up telephone appt with BUILDING ANALYST/SUPERVISOR 06/04/20 to further discuss developmentof BUILDING ANALYST/SUPERVISOR treatment plan as appropriate. Gilda Jameson MA CCC-BUILDING ANALYST/SUPERVISOR Speech-Language Pathologist documented in this encounter Plan of Treatment Upcoming Encounters Date Type Specialty Care Team Description 10/21/2021 Infusion Hematology and Oncology 11/09/2021 Office Visit Hematology and Oncology Alhaji Ritchie MD [facility] DR ONCOLOGY DEPT. [place], [place] [address] (Wo rk) 11/09/2021 Infusion Hematology and Oncology 12/10/2021 Office Visit Dermatology Silas Walters MD [address] DERMATOLOGY [place], [place] [address] (Wo rk) 09/19/2039 Hospital Encounter Surgery Osman Barnett MD [facility] OTOLARYNGOLOGY D EPT. [place], [place] [address] (Wo rk) Scheduled Procedures Name [...] on filedocumented in this encounter Care Teams Dag Sprayer Relationship Specialty Start Date End Date Tara Joya MD PCP - General Family Medicine 05/16/[address] [place] [address] documented as of this encounter
--- OUTSIDE RECORDS SUMMARY | 2021-10-21 07:59 | XMS_ITS | Encounter Summary ---
:1950 Author Organization [facility] Address [facility] [place] [address] Care Team Providers Name Role Phone Tara Joya MD Primary Care Provider [phone] Encounter Details Date Type Department Care Team Description 05/13/2020 Surgery Main Operating Room Osman Barnett CLOSURE OF [place] Poncho Lobo MD EYELID BY SUTURE, [facility] TARSORRHAPHY (WRVU 1.35) [facility] [place] [address] DEPT. [phone] [place], [place] [address] (Wo rk) Social History Tobacco [...] Sign Reading Time Taken Comments Blood Pressure 136/69 05/13/2020 5:00 PM EST Pulse 59 05/13/2020 2:03 PM EST Temperature 36.4 ??C (97.5 ??F) 05/13/2020 4:10 PM EST Respiratory Rate 16 05/13/2020 5:00 PM EST Oxygen Saturation 100% 05/13/2020 5:00 PM EST Inhaled Oxygen Concentration - - Weight 69.4 kg (153 lb) 05/13/2020 2:03 PM EST Height 175.3 cm (5' 9) 05/13/2020 2:03 PM EST Body Mass Index 22.59 05/13/2020 2:03 PM EST documented in this encounter Discharge Instructions Discharge InstructionsRadha Rosas RN - 05/13/2020 5:01 PM EST Next [...] by General Surgery. Please call them at [phone] if any concerns. OK to disconnect seals [...] -You can reach the ENT clinic at [phone] for appointment questions. -The ENT triage nurse is available at [phone] -For urgent issues during evenings (5 PM - 7 AM) and weekends the ENT resident chemical production technician can be reached through the main hospital power plant operator at [phone] Follow Up: You will need to follow up with appointments as scheduled. If you need to see ENT, call to receive your date and time. Currently Scheduled Appointments and VNA instructions: Future Appointments and Orders Future Appointments and Orders Future Appointments Provider Department Dept Phone 05/14/2020 8:15 AM Eleazar Galdamez MD Radiation Oncology at [facility] Arrive at: [facility] door at end of hallway [phone] 05/14/2020 10:30 AM Gilda Jameson SLP Hematology/Oncology at [facility] Arrive at: [facility] door at end of hallway [phone] Please do not come in for this visit. Your provider will call you at the number you provided. 05/14/2020 10:30 AM STJ RAD/ONC, TREATMENT Radiation Oncology at [facility] Arrive at: [facility] door at end of hallway [phone] 05/15/2020 10:30 AM STJ RAD/ONC, TREATMENT Radiation Oncology at [facility] Arrive at: [facility] door at end of hallway [phone] 05/15/2020 11:00 AM STJ INFUSION, ROOM Hematology Oncology at [facility] Arrive at: [facility] door at end of hallway [phone] 05/16/2020 7:45 AM STJ RAD/ONC, TREATMENT Radiation Oncology at [facility] Arrive at: [facility] door at end of hallway [phone] 05/19/2020 11:00 AM Ashok Ritchie MD Hematology/Oncology at [facility] Arrive at: [facility] door at end of hallway [phone] 05/19/2020 12:00 PM STJ INFUSION, ROOM Hematology Oncology at [facility] Arrive at: [facility] door at end of hallway [phone] 05/19/2020 1:[address] Hematology/Oncology at [facility] Arrive at: [facility] door at end of hallway [phone] 05/19/2020 4:00 PM STJ RAD/ONC, TREATMENT Radiation Oncology at [facility] Arrive at: [facility] door at end of hallway [phone] 05/20/2020 7:45 AM STJ RAD/ONC, TREATMENT Radiation Oncology at [facility] Arrive at: [facility] door at end of hallway [phone] 05/20/2020 8:30 AM STJ INFUSION, ROOM Hematology Oncology at [facility] Arrive at: [facility] door at end of hallway [phone] 05/21/2020 8:00 AM STJ RAD/ONC, TREATMENT Radiation Oncology at [facility] Arrive at: [facility] door at end of hallway [phone] 05/21/2020 11:00 AM Eleazar Galdamez MD Radiation Oncology at [facility] Arrive at: [facility] door at end of hallway [phone] 05/22/2020 10:30 AM STJ RAD/ONC, TREATMENT Radiation Oncology at [facility] Arrive at: [facility] door at end of hallway [phone] 05/22/2020 11:00 AM STJ INFUSION, ROOM Hematology Oncology at [facility] Arrive at: [facility] door at end of hallway [phone] 05/23/2020 7:45 AM STJ RAD/ONC, TREATMENT Radiation Oncology at [facility] Arrive at: [facility] door at end of hallway [phone] 05/26/2020 11:00 AM Ashok Ritchie MD Hematology/Oncology at [facility] Arrive at: [facility] door at end of hallway [phone] 05/26/2020 12:00 PM STJ INFUSION, ROOM Hematology Oncology at [facility] Arrive at: [facility] door at end of hallway [phone] 05/26/2020 1:[address] Hematology/Oncology at [facility] Arrive at: [facility] door at end of hallway [phone] 05/26/2020 4:00 PM STJ RAD/ONC, TREATMENT Radiation Oncology at [facility] Arrive at: [facility] door at end of hallway [phone] 05/27/2020 7:45 AM STJ RAD/ONC, TREATMENT Radiation Oncology at [facility] Arrive at: [facility] door at end of hallway [phone] 05/27/2020 8:30 AM STJ INFUSION, ROOM Hematology Oncology at [facility] Arrive at: [facility] door at end of hallway [phone] 05/28/2020 7:45 AM STJ RAD/ONC, TREATMENT Radiation Oncology at [facility] Arrive at: [facility] door at end of hallway [phone] 05/28/2020 11:00 AM Eleazar Galdamez MD Radiation Oncology at [facility] Arrive at: [facility] door at end of hallway [phone] 11/06/2020 1:30 PM Silas Walters MD Dermatology at [place] Arrive at: [facility] [address] [phone] documented in this encounter Medications at Time [...] Rodriguez MD - 05/13/2020 2:18 PM EST [facility] Department of Acute Care Surgery Consult Note [...] IR Mediport Placement 04/08/2020 Mann Escobar APRN [facility] INTERVENTIONL RAD ??? KIDNEY STONE SURGERY ??? PRG SOMATOSENSORY TEST, ANY/ALL PER. NERVES, TRUNK OR HEAD N/A 02/20/2020 FACIAL NERVE MONITORING, SETUP PERIPHERAL (WRVU 0.54) performed by Osman Barnett MD at [facility] MAIN OR ??? PRO ADJ TISS TRANSFER/REARRANGEMENT ANY AREA 30.1-60 SQCM Left 02/20/2020 ADJACENT TISSUE TRANSFER OR REARRANGEMENT; 30.1 TO 60.0 SQ CM, THORAX (WRVU 12.65) performed by Osman Barnett MD at [facility] MAIN OR ??? PRO ADJ TISS TRANSFER/REARRANGEMENT ANY AREA EA ADDL 30SQCM Left 02/20/2020 ADJACENT TISSUE TRANSFER OR REARRANGEMENT; EA ADD'L 30.0 SQ CM, OR PART OF (WRVU 3.73) performed byOsman Barnett MD at [facility] MAIN OR ??? PRO COLONOSCOPY, REMV LESN, SNARE N/A 07/07/2015 COLONOSCOPY, POLYPECTOMY, REMOVAL LESION BY SNARE performed by Jose Manuel Heller MD at [facility] ENDOSCOPY ??? PRO EXC PAROTD, TOTAL, DISSECT 5TH NERV Left 02/20/2020 EXCISION OF PAROTID TUMOR OR PAROTID GLAND, TOTAL, WITH DISSECTION AND PRESERVATION OF FACIAL NERVE(WRVU 19.53) performed by Osman Barnett MD at [facility] MAIN OR ??? PRO EXC SKIN MALIG 3.1-4CM FACE, FACIAL Left 02/20/2020 EXC MALIGNANT LESION, 3.1 TO 4.0CM, FACE (WRVU 4.34) performed by Osman Barnett MD at [facility] MAIN OR ? ? PRO EXC SKIN MALIG >4CM FACE, FACIAL Left 02/20/2020 EXC MALIGNANT LESION, >4.0CM, EARS (WRVU 6.26) performed [facility] ??? PRO MICROSURG TECHNIQUES, REQ OPER MICROSCOPE N/A 02/20/2020 MICROSCOPE USE (WRVU 3.46) performed by Neo Gilman MD at [facility] MAIN OR ??? PRO MUSCLE-SKIN FLAP, TRUNK Left 02/20/2020 FLAP, MYOCUTANEOUS OR FASCIOCUTANEOUS, TRUNK (WRVU 19.86) performed by Osman Barnett MD at [facility] MAIN OR ??? PRO REMOVAL NODES, NECK, CERV MOD RAD Left 02/20/2020 @CERVICAL LYMPHADENECTOMY (MODIFIED RADICAL NECK DISSECTION) (WRVU 23.95) performed by Osman Banrett MD at [facility] MAIN OR ??? PRO RESECT TEMPORAL BONE, PEDIATRIC PHYSICAL THERAPIST APPRCH Left 02/20/2020 @RESECTION TEMPORAL BONE, EXTERNAL APPROACH (WRVU 37.42) performed by Neo Gilman MD at [facility] MEDICATIONS: Current Outpatient Medications Medication Instructions ??? [...] lives with his of 49 years in [facility]. 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 Currently manages [...] scheduled operation. Kaylan Enrique MD, PGY4, Pager [phone] 05/13/20 2:05 PM ENT Team Pager: [phone] documented in this encounter Miscellaneous Notes Op Note - Osman Barnett MD - 05/13/2020 3:[address] 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 Direct Laryngoscopy for Hypopharyngeal Exposure 2. Tarsorrhaphy Anesthesia: General via Oral ETT Estimated Blood Loss: 5 cc HPI/Surgical Indications: Ward Santamaria is a 69 y.o. 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 Operative Note Patient Name: Ward Santamaria : [id number] MR#: [id number] Case Date: 05/13/2020 Surgeon: Surgeon(s) and Role: [...] Hematology and Oncology Alhaji Ritchie MD [facility] DR ONCOLOGY DEPT. [place], [place] [address] (Wo rk) 11/09/2021 Infusion Hematology and Oncology 12/10/2021 Office Visit Dermatology Silas Walters MD [address] [place] [address] DERMATOLOGY [place], [place] [address] (Wo rk) 09/19/2039 Hospital Encounter Surgery Osman Barnett MD [facility] OTOLARYNGOLOGY D EPT. 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
--- OUTSIDE RECORDS SUMMARY | 2021-10-21 07:59 | XMS_ITS | Encounter Summary ---
:1950 Author Organization [facility] [place] [address] Care Team Providers Name Role Phone Tara Joya MD Primary Care Provider [phone] Encounter Details Date Type Department Care Team Description 05/26/2020 Office Visit Hematology/Oncology at [facility]ina Aguirre, Catie uamous cell [facility] RD carcinoma of ear, left [address] [place] [phone] Social History Tobacco Use Types Packs/Day Years Used Date Former Smoker Cigarettes 1 40 Quit: 01/09/20 03 Smokeless Tobacco: Never Used Alcohol Use Standard Drinks/Week Comments No 0 (1 standard drink = 0.6 oz pure alcoho l) Sex Assigned at Date Recorded Not on file documented as of this encounter Progress Notes Caterina Aguirre RD - 05/26/2020 1:00 PM EST [facility] Dietitian Follow Up Seen By: Caterina [...] left upper eyelid H02.204 Meds: reviewed Labs: reviewed, nonfasting glucose 216 Estimated body mass index is 22.36 kg/m?? as calculated from the following: Height as of an earlier encounter on 05/26/20: 176.5 cm (5' 9.5). Weight as of an earlier encounter on 05/26/20: 69.7 kg (153 lb 9.6 oz). Wt Readings from Last 3 Encounters: 05/26/20 69.7 kg (153 lb 9.6 oz) 05/22/20 68.9 kg (152 lb) 05/21/20 69.9 kg (154 lb) Weight at start of treatment: 171 lbs on 04/10/20 10% weight loss in one month, severe Weight stable since feeding tube placement Wt Hx: UBW: ~170 lbs % UBW: IBW: +/- 10% % IBW: ___ Edema ___ Ascites ___Muscle wasting Calorie needs: 0786-2704 (30-35 kcal/kg) Protein needs: 105 grams (1.5 g/kg) Fluid needs: ~2.1+ L Nutrition Assessment: Food Intake: Minimal to no oral intake aside from sips of water Nutrition support: PEG placed on 05/13 Recommend 6 cartons of Nutren 1.5 to provide 2250 calories 102 grams protein and 1146 ml water. Patient is at goal of 6 cartons per day, gravity method. Tolerating formula. Administers 2 cartons per feeding, TID. DME is [facility] Supplements/Frequency: ___ Ensure/Plus ___ Boost/Plus ___ CIB ___ Other: Teas, vitamins, or other nutritional supplements: Food allergies or avoidances: denies Appetite: poor Nausea: + Vomiting: denies Chewing: takes longer, small bites at a time Dentition: teeth present Swallowing: Taste Changes: ++dygeusia Bowels: constipation, improved with miralax Food availability/purchasing, meal planning and preparation: self, Social Support: is very supportive Physical Activity: Anticipated adherence/understanding: good Nutrition Diagnosis: Inadequate oral intake related to nausea and poor appetite while undergoing 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 Nutrition Intervention: ? Increased caloric needs ? Modify diet consistency: as tolerated ? Enteral Nutrition: Continue goal of 6 cartons per day; adding extra scoop protein powder via tube;encouraged extra hydration via tube Monitoring and Evaluation: Will follow up weekly. knows to reach out questions/concerns arise in the meantime. documented in this encounter Plan of Treatment Upcoming Encounters Date Type Specialty Care Team Description 10/21/2021 Infusion Hematology and Oncology 11/09/2021 Office Visit Hematology and Oncology Alhaji Ritchie MD [facility] DR ONCOLOGY DEPT. [place], [place] [address] (Jin carson) 11/09/2021 Infusion Hematology and Oncology 12/10/2021 Office Visit Dermatology Silas Walters MD [address] [place] [address] RD DERMATOLOGY [place], [place] [address] (Jin carson) 09/19/2039 Hospital Encounter Surgery Osman Barnett MD [facility] OTOLARYNGOLOGY D EPT. [place], [place] [address] (Jin carson) Scheduled Procedures Name [...] left documented in this encounter Care Teams Warehouse Freight Handler Relationship Specialty Start Date End Date Tara Joya MD PCP - General Family Medicine 05/16/[address] [place] [address] documented as of this encounter
--- OUTSIDE RECORDS SUMMARY | 2021-10-21 07:59 | XMS_ITS | Encounter Summary ---
:1950 Author Organization [facility] [address] Care Team Providers Name Role Phone Tara Joya MD Primary Care Provider [phone] Reason for Visit Consultation (Routine) - Closed Specialty Diagnoses / Procedures Referred By Contact Refer red To Contact Radiology Diagnoses Squamous cell carcinoma of [facility] Eleazar Galdamez MD Procedures Film Library Radiation Oncology Studies [facility] [place] [address] Referral ID Status Reason Start Date Expiration Date Visits V isits Requested Authorized [id number] Closed Specialty 05/07/2020 05/07/2021 1 1 Service Requested Encounter Details Date Type Department Care Team Description 05/07/2020 Ancillary Procedure Radiation Oncology Eleazar Galdamez Squamous cell at [facility] MD Reji carcinoma of [address] [phone] RADIATION [phone] [place] [address] Social History Tobacco Use Types Packs/Day Years [...] [facility] DR ONCOLOGY DEPT. [place], [place] [address] (Wo rk) 11/09/2021 Infusion Hematology and Oncology 12/10/2021 Office Visit Dermatology Silas Walters MD [address] [facility] [address] DERMATOLOGY [place], [place] [address] (Wo rk) 09/19/2039 Hospital Encounter Surgery Osman Barnett MD [facility] OTOLARYNGOLOGY D EPT. [place], [place] [address] (Wo rk) Pending Results Name Type Priority Associated Diagnoses Date/Ti ca Film Library Imaging Storage Routine Squamous cell 05/07/2020 2:29 PM Radiation Oncology Only carcinoma of chin EST Studies Scheduled Procedures Name Priority Associated Diagnoses Date/Time [...] parts of face documented in this encounter Administered Medications Inactive Administered Medications - up to 3 most recent administrations Medication Order MAR Action Action Date Dose Rate Site iohexoL (Omnipaque) (300 Given 05/07/2020 1:55 PM 100 mLs Implanted Port mg/mL) injection solution EST 100 mL 100 mL, Intravenous, ONCE PRN, 1 dose, Starting on Tue05/07/20 at 1047, Until Tue05/07/20 at 1355, Per Protocol, Warning Vesicant/Irritant Medication , Routine documented in this encounter Care Teams Security Site Supervisor Relationship Specialty Start Date End Date Tara Joya MD PCP - General Family Medicine 05/16/[address] [place] [address] documented as of this encounter
--- OUTSIDE RECORDS SUMMARY | 2021-10-21 07:59 | XMS_ITS | Encounter Summary ---
:1950 Author Organization [facility] [place] [address] Care Team Providers Name Role Phone Tara Joya MD Primary Care Provider [phone] Reason for Visit Reason Comments IV Medication Hydration, antiemetics Treatment/Therapy Plan Authorization (Routine) - Closed Specialty Diagnoses / Procedures Referred By Contact Refer red To Contact Diagnoses Squamous cell carcinoma of ear, left Chemotherapy-induced nausea Ashok Ritchie MD [facility] Hem Onc Infusion [address] [place] [phone] Fax: Referral ID Status Reason Start Date Expiration Date Visits Requ ested Visits Authorized [id number] Closed 03/10/2020 03/10/2021 99 99 Encounter Details Date Type Department Care Team Description 05/08/2020 Infusion Hematology Oncology at [facility] emotherapy-induced nausea; [facility] Squamous cell carcinoma of e ar, left [address] [place] [phone] Social History Tobacco Use Types [...] Sign Reading Time Taken Comments Blood Pressure 146/77 05/08/2020 11:01 AM EST Pulse 87 05/08/2020 11:01 AM EST Temperature 36.7 ??C (98 ??F) 05/08/2020 11:01 AM EST Respiratory Rate 18 05/08/2020 11:01 AM EST Oxygen Saturation 98% 05/08/2020 11:01 AM EST Inhaled Oxygen Concentration - - Weight 71.5 kg (157 lb 9.6 oz) 05/08/2020 11:01 AM EST Height 176.5 cm (5' 9.49) 05/08/2020 11:01 AM EST Body Mass Index 22.95 05/08/2020 11:01 AM EST documented in this encounter Progress Notes Amanda Wilkinson RN - 05/08/2020 11:00 AM EST INFUSION THERAPY ADMINISTRATION NOTES DIAGNOSIS: Squamous cell cancer of the left ear CYCLE 1 Day 25 REASON FOR VISIT: Hydration & Antiemetics SUBJECTIVE Ward states he is feeling very nauseous today. He has not taken any anti-emetics at home today. OBJECTIVE IV ACCESS: Mediport accessed, blood return [...] [facility] DR ONCOLOGY DEPT. [place], [place] [address] (Jin carson) 11/09/2021 Infusion Hematology and Oncology 12/10/2021 Office Visit Dermatology Silas Walters MD [address] [place] [address] DERMATOLOGY [place], [place] [address] (Jin carson) 09/19/2039 Hospital Encounter Surgery Osman Barnett MD [facility] OTOLARYNGOLOGY D EPT. [place], [place] [address] (Jin carson) Scheduled Procedures Name [...] as of this encounter Visit Diagnoses Diagnosis Chemotherapy-induced nausea Nausea alone Squamous cell carcinoma of ear, left documented in this encounter Administered Medications Inactive Administered Medications - up to 3 most recent administrations Medication Order MAR Action Action Date Dose Rate Site aprepitant (CINVANTI) injection Given 05/08/2020 11:18 AM EST 13 0 mg Emul 130 mg 130 mg, Intravenous, ONCE, 1 dose, On Jessica 05/08/20 at 1045, Alternative administration of IV push over 2 minutes is a recommendation from the cell support operator., Routine dexamethasone (Decadron) injection 5.2 m g Given 05/08/2020 11:16 AM EST 5.2 mg 5.2 mg (rounded from 5 mg), Intravenous, ONCE, 1 dose, On Jessica 05/08/20 at 1045 heparin (pf) (porcine) (100 units/mL) Given 05/08/2020 12:20 PM EST 500 Units flush 5 mL syringe 500 Units 500 Units, Intravenous, ONCE PRN, Starting on Jessica 05/08/20 at 1020, Until Jessica 05/08/20 at 1535, Line Care, Refer to Intravenous (IV) Procedure: Accessing Implanted Vascular Access Devices (104) procedure and/or Intravenous (IV) Job Aid: Adult Flushing & Catheter Care (2674) job aid for additional information regarding guidelines and administration., Routine ondansetron (Zofran) tablet 16 mg Given 05/08/2020 11:09 AM EST 16 mg 16 mg, Oral, ONCE, 1 dose, On Jessica 05/08/20 at 1045, Routine sodium chloride 0.9 % (flush) flush 5-20 mL Given 05/08/2020 12:20 PM EST 20 mLs 5-20 mL, Intravenous, EVERY 1 MIN PRN, Starting on Jessica 05/08/20 at 1020, Until Jessica 05/08/20 at 1535, Line Care, Flush pertains to all indwelling lines. Flush per protocol found in the job aid using the link provided on this medication record. Refer to Intravenous (IV) Job Aid: Adult Flushing & Catheter Care (9866) job aid for additional information regarding guidelines and administration., Routine sodium chloride 0.9% infusion New Bag 05/08/2020 11:19 AM EST 1,000 mLs 1000 mL/hr 1,000 mL, at 1,000 mL/hr, Intravenous, CONTINUOUS, Starting on Jessica 05/08/20 at 1045, Until Jessica 05/08/20 at 1144 documented in this encounter Care Teams Airport Baggage Screener Relationship Specialty Start Date End Date Tara Joya MD PCP - General Family Medicine 05/16/[address] [place] [address] documented as of this encounter
--- OUTSIDE RECORDS SUMMARY | 2021-10-21 07:59 | XMS_ITS | Encounter Summary ---
:1950 Author Organization [facility] [place] [address] Care Team Providers Name Role Phone Tara Joya MD Primary Care Provider [phone] Reason for Visit Reason Comments Chemotherapy Cycle 1, Day 36 Cisplatin Treatment/Therapy Plan Authorization (Routine) - Closed Specialty Diagnoses / Procedures Referred By Contact Refer red To Contact Diagnoses Squamous cell carcinoma of ear, left Chemotherapy-induced nausea Ashok Ritchie MD [facility] Hem Onc Infusion [address] [place] [phone] Fax: Referral ID Status Reason Start Date Expiration Date Visits Requ ested Visits Authorized [id number] Closed 03/10/2020 03/10/2021 99 99 Encounter Details Date Type Department Care Team Description 05/19/2020 Infusion Hematology Oncology at [facility] emotherapy-induced nausea; [facility] Squamous cell carcinoma of e ar, left [address] [place] [address] [phone] Social History Tobacco Use Types Packs/Day Years Used Date Former Smoker Cigarettes 1 40 Quit: 01/09/20 03 Smokeless Tobacco: Never Used Alcohol Use Standard Drinks/Week Comments No 0 (1 standard drink = 0.6 oz pure alcoho l) Sex Assigned at Date Recorded Not on file documented as of this encounter Progress Notes Leanne Lema RN - 05/19/2020 12:00 PM EST INFUSION THERAPY ADMINISTRATION NOTES DIAGNOSIS: Basal cell carcinoma of the ear CYCLE #: Cycle 1, Day 36 - Cisplatin REASON FOR VISIT: To receive chemotherapy. SUBJECTIVE: Ward offers no complaints. OBJECTIVE; Seen by provider. Ready to treat. LAB DATA: WDL for today's infusion, seen in clinic by Dr Ritchie and cleared for treatment. IV ACCESS: Port accessed off site. Flushes readily with brisk blood return. Pre administration: Chemotherapy orders independently verified for drug name, route, and dosage per patient's height, weight and BSA by Leanne Lema, CONNOR and Christine Quintanilla [facility]. REACTIONS (DESCRIPTION, TIME, INTERVENTION AND EFFECTIVENESS) none ASSESSMENT: Ward was awake, alert and tolerated treatment well. Port flushed with 20 cc's of NS and 500 units ofheparin and de-accessed. PLAN: Return to clinic as scheduled. documented in this encounter Plan of Treatment Upcoming Encounters Date Type Specialty Care Team Description 10/21/2021 Infusion Hematology and Oncology 11/09/2021 Office Visit Hematology and Oncology Alhaji Ritchie MD [facility] [address] ONCOLOGY DEPT. [place], [place] [address] (Jin carson) 11/09/2021 Infusion Hematology and Oncology 12/10/2021 Office Visit Dermatology Silas Walters MD [address] [facility] DERMATOLOGY [place], [place] [address] (Jin carson) 09/19/2039 Hospital Encounter Surgery Osman Barnett MD [facility] OTOLARYNGOLOGY D EPT. [place], [place] [address] (Jin carson) Scheduled Procedures Name [...] Dose Rate Site aprepitant (CINVANTI) injection Given 05/19/2020 12:55 PM EST 13 0 mg Emul 130 mg 130 mg, Intravenous, ONCE, 1 dose, On Tue05/19/20 at 1245, Alternative administration of IV push over 2 minutes is a recommendation from the ophthalmic technologist. Administer prior to chemotherapy., Routine CISplatin (Platinol) 67 mg in sodium New Bag 05/19/2020 1:33 P M EST 67 mg 317 mL/hr chloride 0.9% 317 mL infusion 67 mg (rounded from 66.85 mg = 35 mg/m2/dose ? 1.91 m2 Treatment Plan BSA from Recorded weight), Intravenous, ONCE, 1 dose, On Tue05/19/20 at 1345, Administer over 60 Minutes, Warning Vesicant/Irritant Medication dexamethasone (Decadron) injection 10 mg Given 05/19/2020 12:50 PM EST 10 mg 10 mg, Intravenous, ONCE, 1 dose, On Tue05/19/20 at 1245, Administer prior to chemotherapy heparin (pf) (porcine) (100 units/mL) Given 05/19/2020 2:[address] 500 Units flush 5 mL syringe 500 Units 500 Units, Intravenous, ONCE PRN, Starting on Tue05/19/20 at 1227, Until Tue05/19/20 at 1657, Line Care, Refer to Intravenous (IV) Procedure: Accessing Implanted Vascular Access Devices (674) procedure and/or Intravenous (IV) Job Aid: Adult Flushing & Catheter Care (1016) job aid for additional information regarding guidelines and administration., Routine palonosetron (Aloxi) (0.25 mg/mL) injection Given 03/2020 12:53 PM EST 0.25 mg 0.25 mg 0.25 mg, Intravenous, ONCE, 1 dose, On Tue05/19/20 at 1245, Administer over 30 seconds. Administer prior to chemotherapy, Routine sodium chloride 0.9 % (flush) flush 5-20 mL Given 05/19/2020 2:44 PM EST 20 mLs 5-20 mL, Intravenous, EVERY 1 MIN PRN, Starting on Tue05/19/20 at 1227, Until Tue05/19/20 at 1657, Line Care, Flush pertains to all indwelling lines. Flush per protocol found in the job aid using the link provided on this medication record. Refer to Intravenous (IV) Job Aid: Adult Flushing & Catheter Care (1819) job aid for additional information regarding guidelines and administration., Routine sodium chloride 0.9% infusion New Bag 05/19/2020 12:30 PM EST 1,000 mLs 1000 mL/hr 1,000 mL, at 1,000 mL/hr, Intravenous, CONTINUOUS, Starting on Tue05/19/20 at 1245, Until Tue05/19/20 at 1344, Pre-CISplatin sodium chloride 0.9% infusion New Bag 05/19/2020 1:37 PM EST 500 mLs 500 mL/hr 500 mL, at 500 mL/hr, Intravenous, CONTINUOUS, Starting on Tue05/19/20 at 1445, Until Tue05/19/20 at 1544, Post CISplatin documented in this encounter Care Teams International Student Advisor Relationship Specialty Start Date End Date Tara Joya MD PCP - General Family Medicine 05/16/[address] [place] [address] documented as of this encounter
--- OUTSIDE RECORDS SUMMARY | 2021-10-21 07:59 | XMS_ITS | Encounter Summary ---
:1950 Author Organization [facility] [place] [address] Care Team Providers Name Role Phone Tara Joya MD Primary Care Provider [phone] Encounter Details Date Type Department Care Team Description 05/19/2020 Office Visit Hematology/Oncology Ashok Ritchie Squa mous cell carcinoma of ear, left; at [facility] Chemotherapy-induced nausea; [address] [place] [address] [place] [address] ONCOLOGY DEPT. [phone] [place], [place] [address] Social History Tobacco Use Types [...] Sign Reading Time Taken Comments Blood Pressure 106/75 05/19/2020 11:20 AM EST Pulse 99 05/19/2020 11:20 AM EST Temperature 36.9 ??C (98.4 ??F) 05/19/2020 11:20 AM EST Respiratory Rate 16 05/19/2020 11:20 AM EST Oxygen Saturation 99% 05/19/2020 11:20 AM EST Inhaled Oxygen Concentration - - Weight 68.9 kg (152 lb) 05/19/2020 11:20 AM EST Height 175.3 cm (5' 9.02) 05/19/2020 11:20 AM EST Body Mass Index 22.44 05/19/2020 11:20 AM EST documented in this encounter Progress Notes Ashok Ritchie MD - 05/19/2020 11:00 AM EST Images from the original note were not included. Hematology/Oncology Clinic [facility] Patient Active Problem List Diagnosis [...] radiation with concurrent weekly cisplatin instituted 04/14/2020 ??? Lagophthalmos of left upper eyelid Added automatically from request for surgery [id number] ??? Encounter for venous access device care ??? Chemotherapy-induced nausea ??? Hearing loss Bilateral hearing aids prior to surgical loss of L ear 02/2020 ??? Mass of left ear Added automatically from request for surgery [id number] ??? Parotid mass Added automatically from request for surgery [id number] ??? History of basal cell carcinoma ??? [...] negative ??? Basal cell cancer ??? Hypertriglyceridemia ON[facility] ONCOLOGY (AMB) 04/14/2020 04/21/2020 Day, Cycle Day 1, Cycle 1 Day 8, Cycle 1 CISplatin (Platinol) IV 40 mg/m2/dose = 76 mg 40 mg[facility]m2/dose = [facility] 04/28/2020 05/05/2020 Day, Cycle Day 15, Cycle 1 Day 22, Cycle 1 CISplatin (Platinol) IV 40 mg/m2/dose = 76 mg 35 mg/m2/dose = 67 [facility] 05/12/2020 Day, Cycle Day 29, Cycle 1 CISplatin (Platinol) IV 35 mg/m2/dose = 67 mg Med Onc checkup; dose #6 chemo due today, and RT fraction 26 of planned 33. G-tube and lid pexy done last week. Both procedures were uncomplicated, and he is pleased with the results. His eye closes better, no longer leblanc, and he has no more corneal irritation. The G-tube isbeen working fine and his is gradually increasing the amount of feedings she gives him, with a goal of 6 containers per day. He is maintained his weight well on this. Bowels remain sluggish. Last week's chemotherapy did not cause any new complications, mild nausea controlled with combination of Compazine and lorazepam. 1 mg lorazepam dose has controlled his nausea at bedtime and has allowed him to get a good night sleep. No new chemotherapy side effects, specifically no peripheral neuropathy nor ototoxicity Exam: Looks well, NAD Oral: patchy white plaques L buccal, c/w Estefani. Grade 1 buccal erythema Neck: healed surgical sites, no palpable masses. Skin: grade 2 erythema, patchy dry desquamation; focal moist desquamation under L ear Lungs: clear Mediport benign Heart: RRR, normal tones Abd: no HSM. 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 L lower lid closes almost completely Reflexes: 2+ Lab: wbc 4.85, Hb 11.6, plts 116; chems: Na 135, creat 1.1, BUN 28, Mg 1.5. Hepatic enzymes normal. Impression: tolerating chemoRT well, better with PEG tube in place and nutrition improving. Plan: 1. Proceed with cisplatin chemo today. 2. Visit with Call Center Operator today. 3. Miralax PRN constipation. Engouraged copious hydration via PEG. 4. Rx's for lorazepam 1 mg and for Nystatin s/s. Ashok Ritchie MD, FACP forestry workers Hematology/Oncology Section [facility]/[address] [address] Voice recognition software used for this note; please excuse director recreation errors. I personally reviewed past medical, surgical, family medical histories, reviewed current medications, vital signs, labs, and performed full review of systems. These are documented below the narrative for clarity and succinctness. Outpatient Medications Marked as Taking for the 05/19/20 encounter (Office Visit) with Ashok Ritchie MD Medication Sig Dispense Refill ??? LORazepam (Ativan) 0.5 mg Tablet Take 0.5-1 mg by mouth every 6 hours as needed for Anxiety. ??? ondansetron (Zofran) 8 mg Tablet Take 8 mg by mouth every 8 hours as needed for Nausea. ??? pantothenic Ac-Min Oil-Pet,Hyd (AQUAPHOR) 41 % Ointment Apply topically. ??? prochlorperazine (Compazine) 10 mg Tablet Take 1 tablet by mouth every 6 hours as needed for Nausea. 30 tablet 3 ??? white petrolatum-mineral oiL (Refresh-PM) Place 1 [...] ??? atorvastatin (LIPITOR) 20 mg tablet Take 20 mg by mouth daily. ??? fenofibrate (TRICOR) [...] Review of systems is negative for other FURNACE CHARGING MACHINE OPERATOR, bone, pulmonary, cardiac, GI, , extremity, neurologic, endocrine, skin, constitutional, emotional, or functional problems. Vitals Office Visit from 05/19/2020 in Hematology/Oncology at [facility] Weight 68.9 kg (152 lb) Height 175.3 cm (5' 9.02) BSA (Calculated - sq m) 1.83 sq meters BMI (Calculated) 22.43 Temp 36.9 ??C (98.4 ??F) Temp src Temporal Heart Rate 99 Heart Rate Source Right, NIBP Resp 16 BP 106/75 BP Location Right arm Patient Position Sitting SpO2 99 % Karnofsky Score 80 Body surface area is 1.83 meters squared. Wt Readings from Last 3 Encounters: 05/19/20 68.9 kg (152 lb) 05/14/20 69.9 kg (154 lb) 05/13/20 69.4 kg (153 lb) No results found for this or any previous visit (from the past 72 hour(s)). ++++++++++++++++++++++++++++++++++++++++++++++++++++ documented in this encounter Plan of Treatment Upcoming Encounters Date Type Specialty Care Team Description 10/21/2021 Infusion Hematology and Oncology 11/09/2021 Office Visit Hematology and Oncology Alhaji Ritchie MD [facility] [address] ONCOLOGY DEPT. [place], [place] [address] (Jin carson) 11/09/2021 Infusion Hematology and Oncology 12/10/2021 Office Visit Dermatology Silas Walters MD [address] [facility] [address] DERMATOLOGY [place], [place] [address] (Wo rk) 09/19/2039 Hospital Encounter Surgery Osman Barnett MD [facility] OTOLARYNGOLOGY D EPT. [place], [place] [address] (Jin carson) Scheduled Procedures Name [...] of ear, left Chemotherapy-induced nausea Nausea alone Oral candidiasis Candidiasis of mouth documented in this encounter Care Teams Reporting Analyst Relationship Specialty Start Date End Date Tara Joya MD PCP - General Family Medicine 05/16/[address] [place] [address] documented as of this encounter
--- OUTSIDE RECORDS SUMMARY | 2021-10-21 07:59 | XMS_ITS | Encounter Summary ---
:1950 Author Organization [facility] [place] [address] Care Team Providers Name Role Phone Tara Joya MD Primary Care Provider [phone] Reason for Visit Reason Comments Chemotherapy Cycle 1, Day 29; Cisplat Treatment/Therapy Plan Authorization (Routine) - Closed Specialty Diagnoses / Procedures Referred By Contact Refer red To Contact Diagnoses Squamous cell carcinoma of ear, left Chemotherapy-induced nausea Ashok Ritchie MD [facility] Hem Onc Infusion [address] ONCOLOGY DEPT. [place], [place] [phone] Fax: Referral ID Status Reason Start Date Expiration Date Visits Requ ested Visits Authorized [id number] Closed 03/10/2020 03/10/2021 99 99 Encounter Details Date Type Department Care Team Description 05/12/2020 Infusion Hematology Oncology at [facility] emotherapy-induced nausea; [facility] Squamous cell carcinoma of e ar, left [address] [place] [phone] Social History Tobacco Use Types Packs/Day Years Used Date Former Smoker Cigarettes 1 40 Quit: 01/09/20 03 Smokeless Tobacco: Never Used Alcohol Use Standard Drinks/Week Comments No 0 (1 standard drink = 0.6 oz pure alcoho l) Sex Assigned at Date Recorded Not on file documented as of this encounter Progress Notes Artem Logan RN - 05/12/2020 12:00 PM EST INFUSION THERAPY ADMINISTRATION NOTES DIAGNOSIS: Basal cell carcinoma of the ear CYCLE #: Cycle 1, Day 29 - Cisplatin REASON FOR VISIT: To receive [...] per patient's height, weight and BSA by ARTEM LOGAN, CONNOR and Christine Quintanilla [facility]. REACTIONS (DESCRIPTION, TIME, INTERVENTION AND EFFECTIVENESS) none [...] Visit Hematology and Oncology Alhaji Ritchie MD [facility] DR ONCOLOGY DEPT. [place], [place] [address] (Jin carson) 11/09/2021 Infusion Hematology and Oncology 12/10/2021 Office Visit Dermatology Silas Walters MD [address] [place] [address] DERMATOLOGY [place], [place] [address] (Jin carson) 09/19/2039 Hospital Encounter Surgery Osman Barnett MD [facility] OTOLARYNGOLOGY D EPT. [place], [place] [address] (Jin carson) Scheduled Procedures Name [...] Dose Rate Site aprepitant (CINVANTI) injection Given 05/12/2020 12:50 PM EST 13 0 mg Emul 130 mg 130 mg, Intravenous, ONCE, 1 dose, On Tue05/12/20 at 1230, Alternative administration of IV push over 2 minutes is a recommendation from the motor vehicles inspector. Administer prior to chemotherapy., Routine CISplatin (Platinol) 67 mg in sodium New Bag 05/12/2020 1:12 P M EST 67 mg 317 mL/hr chloride 0.9% 317 mL infusion 67 mg (rounded from 66.85 mg = 35 mg/m2/dose ? 1.91 m2 Treatment Plan BSA from Recorded weight), Intravenous, ONCE, 1 dose, On Tue05/12/20 at 1330, Administer over 60 Minutes, Warning Vesicant/Irritant Medication dexamethasone (Decadron) injection 10 mg Given 05/12/2020 12:50 PM EST 10 mg 10 mg, Intravenous, ONCE, 1 dose, On Tue05/12/20 at 1230, Administer prior to chemotherapy heparin (pf) (porcine) (100 units/mL) Given 05/12/2020 2:[address] 500 Units flush 5 mL syringe 500 Units 500 Units, Intravenous, ONCE PRN, Starting on Tue05/12/20 at 1202, Until Tue05/12/20 at 1652, Line Care, Refer to Intravenous (IV) Procedure: Accessing Implanted Vascular Access Devices (624) procedure and/or Intravenous (IV) Job Aid: Adult Flushing & Catheter Care (3565) job aid for additional information regarding guidelines and administration., Routine palonosetron (Aloxi) (0.25 mg/mL) injection Given 04/22 12:49 PM EST 0.25 mg 0.25 mg 0.25 mg, Intravenous, ONCE, 1 dose, On Tue05/12/20 at 1230, Administer over 30 seconds. Administer prior to chemotherapy, Routine sodium chloride 0.9 % (flush) flush 5-20 mL Given 05/12/2020 2:30 PM EST 20 mLs 5-20 mL, Intravenous, EVERY 1 MIN PRN, Starting on Tue05/12/20 at 1202, Until Tue05/12/20 at 1652, Line Care, Flush pertains to all indwelling lines. Flush per protocol found in the job aid using the link provided on this medication record. Refer to Intravenous (IV) Job Aid: Adult Flushing & Catheter Care (4301) job aid for additional information regarding guidelines and administration., Routine sodium chloride 0.9% infusion New Bag 05/12/2020 12:07 PM EST 1,000 mLs 1000 mL/hr 1,000 mL, at 1,000 mL/hr, Intravenous, CONTINUOUS, Starting on Tue05/12/20 at 1230, Until Tue05/12/20 at 1329, Pre-CISplatin sodium chloride 0.9% infusion New Bag 05/12/2020 1:10 PM EST 500 mLs 500 mL/hr 500 mL, at 500 mL/hr, Intravenous, CONTINUOUS, Starting on Tue05/12/20 at 1430, Until Tue05/12/20 at 1529, Post CISplatin documented in this encounter Care Teams Clothes Separator Relationship Specialty Start Date End Date Tara Joya MD PCP - General Family Medicine 05/16/[address] [address] documented as of this encounter
--- OUTSIDE RECORDS SUMMARY | 2021-10-21 07:59 | XMS_ITS | Encounter Summary ---
:1950 [place] [address] Care Team Providers Name Role Phone Tara Joya MD Primary Care Provider [phone] Encounter Details Date Type Department Care Team Description 05/05/2020 Office Visit Hematology/Oncology Ashok Ritchie Squa mous cell carcinoma of ear, left; at [facility] Chemotherapy-induced nausea [address] [place] [id number] ONCOLOGY DEPT. [phone] [place], [place] [address] Social History Tobacco Use Types [...] Sign Reading Time Taken Comments Blood Pressure 140/96 05/05/2020 11:28 AM EST Pulse 98 05/05/2020 11:28 AM EST Temperature 37.1 ??C (98.7 ??F) 05/05/2020 11:28 AM EST Respiratory Rate 16 05/05/2020 11:28 AM EST Oxygen Saturation 99% 05/05/2020 11:28 AM EST Inhaled Oxygen Concentration - - Weight 70.9 kg (156 lb 3.2 oz) 05/05/2020 11:28 AM EST Height 176.5 cm (5' 9.49) 05/05/2020 11:28 AM EST Body Mass Index 22.74 05/05/2020 11:28 AM EST documented in this encounter Progress Notes Ashok Ritchie MD - 05/05/2020 11:15 AM EST Hematology/Oncology Clinic [facility] Patient Active Problem List Diagnosis [...] with concurrent weekly cisplatin instituted 04/14/2020 ??? Encounter for venous access device care ??? Chemotherapy-induced nausea ??? Hearing loss Bilateral hearing aids prior to surgical loss of L ear 02/2020 ??? Mass of left ear Added automatically from request for surgery [id number] ??? Parotid mass Added automatically from request for surgery [id number] ??? History of basal cell carcinoma ??? [...] 76 mg 40 mg/m2/dose = 76 mg ONCBCN ONCOLOGY (AMB) 04/28/2020 Day, Cycle Day 15, Cycle 1 CISplatin (Platinol) IV 40 mg/m2/dose = 76 mg Med Onc checkup; due for dose #4 cisplatin, and RT fraction #16 of 33 planned. He continues to have trouble with nausea. Last week we added an extra day of hydration on Tuesdays, and switched from prochlorperazine to olanzapine (discontinuing the Abilify he had been on to avoid apotential drug interaction). The extra hydration helps somewhat, but nausea remains unrelenting. Histaste sensation is also diminished close to 0, which further complicates his attempts to keep up with nutrition and fluids; even plain water tastes bad to him. He has minimal mucositis. He is getting by with shakes, adding protein powder, but his intake is still suboptimal. He is lost a bit more weight this week. He has had no other major acute side effects of chemotherapy. He has signed up for medical marijuana, but the state [facility] process is quite slow. He said no trouble with his Mediport. Bowels are still a bit sluggish but moving every other day. He has some crusting and irritation under the fold of the left external ear remnant, otherwise the skin in the surgical field has healed well. Physical exam: He is in no acute distress, alert and conversant Oral exam is benign, minimal mucositis in the posterior pharynx, perhaps grade 1 at worst. Tongue ismobile. Neck exam shows healthy bulky graft on the left neck, with healed surgical sites. There is some crusting and weeping in the skin fold up under the remaining left external ear. Left eyelid is still droopy, cornea just barely covered with eye closure The lungs are clear Right chest Mediport is benign Cardiac exam shows borderline tachycardia, grade 2 murmur as before. Abdomen is benign, no hepatosplenomegaly or masses Extremities are normal, no clubbing cyanosis or edema Neurologic exam normal except for surgical left 7th nerve changes as before. Reflexes 1+ Labs: CBC stable with white count 7.27, hemoglobin 13.3, platelets 172. Chemistry studies show stable low sodium of 134, potassium 3.7. BUN up slightly at 27, creatinine roughly stable at 1.2. Nonfasting glucose 170. Hepatic enzymes normal. Albumin stable at 3.8. Impression: High risk skin cancer, prison through a course of adjuvant chemoradiation. Chemotherapyhas been associated with ongoing grade 2 nausea; I wonder if some of this might be brainstem radiation toxicity. In any event, the nausea has been exacerbated by his lack of taste sensation. He appearsmildly dehydrated today. Plan: 1. I will reduce the cisplatin dose very slightly to 35 mg per metered squared 2. Continue copious hydration and intravenous antiemetics. Continue olanzapine daily at bedtime. 3. Add prednisone 10 mg daily, and dronabinol 5 mg twice daily. Endorsed his efforts to obtain medical marijuana in addition. 4. Encouraged him to get in as much oral fluid of any type as possible. He will be meeting with the cancer center dietitian today. Ashok Ritchie MD, FACP solutions executive security Hematology/Oncology Section [facility]/[place] [address] Voice recognition software used for this note; please excuse tube trailer filler errors. I personally reviewed past medical, surgical, family medical histories, reviewed current medications, vital signs, labs, and performed full review of systems. These are documented below the narrative for clarity and succinctness. Outpatient Medications Marked as Taking for the 05/05/20 encounter (Office Visit) with Ashok Ritchie MD Medication Sig Dispense Refill ??? OLANZapine (ZyPREXA) 5 mg Tablet Take 1 tablet by mouth nightly. 30 tablet 1 ??? emollient base (CREAM BASE TOP) Apply topically. Jeans Cream. Apply to area of radiation twice aday but no less than 2 hours before a treatment. ??? ondansetron (Zofran) 8 mg Tablet Take 1 tablet by mouth every 8 hours as needed for Nausea. Use if prochlorperazine is not effective. 20 tablet 3 ??? white petrolatum-mineral oiL (Refresh-PM) Place 1 each into the left eye 2 times daily. 1 Tube 5 ??? metoprolol succinate (TOPROL-XL) 50 mg 24 [...] Review of systems is negative for other INGOT PASSER, bone, pulmonary, cardiac, GI, , extremity, neurologic, endocrine, skin, constitutional, emotional, or functional problems. Vitals Office Visit from 05/05/2020 in Hematology/Oncology at [facility] Weight 70.9 kg (156 lb 3.2 oz) Height 176.5 cm (5' 9.49) BSA (Calculated - sq m) 1.86 sq meters BMI (Calculated) 22.74 Temp 37.1 ??C (98.7 ??F) Temp src Temporal Heart Rate 98 Heart Rate Source Right, NIBP Resp 16 BP (!) 140/96 BP Location Right arm Patient Position Sitting SpO2 99 % Karnofsky Score 80 Body surface area is 1.86 meters squared. Wt Readings from Last 3 Encounters: 05/05/20 70.9 kg (156 lb 3.2 oz) 05/01/20 73.8 kg (162 lb 9.6 oz) 04/30/20 73.3 kg (161 lb 9.6 oz) No results found for this or any previous visit (from the past 72 hour(s)). ++++++++++++++++++++++++++++++++++++++++++++++++++++ documented in this encounter Plan of Treatment Upcoming Encounters Date Type Specialty Care Team Description 10/21/2021 Infusion Hematology and Oncology 11/09/2021 Office Visit Hematology and Oncology Alhaji Ritchie MD [facility] DR ONCOLOGY DEPT. [place], [place] [address] (Wo rk) 11/09/2021 Infusion Hematology and Oncology 12/10/2021 Office Visit Dermatology Silas Walters MD [address] DERMATOLOGY [place], [place] [address] (Wo rk) 09/19/2039 Hospital Encounter Surgery Osman Barnett MD [facility] OTOLARYNGOLOGY Sharlene EPT. [place], [place] [address] (Wo rk) Scheduled Procedures Name [...] nausea Nausea alone documented in this encounter Care Teams Account Support Associate Relationship Specialty Start Date End Date Tara Joya MD PCP - General Family Medicine 05/16/15 [address] [place] [address] documented as of this encounter
--- OUTSIDE RECORDS SUMMARY | 2021-10-21 07:59 | XMS_ITS | Encounter Summary ---
:1950 Author Organization [facility] [place] [address] Care Team Providers Name Role Phone Tara Joya MD Primary Care Provider [phone] Encounter Details Date Type Department Care Team Description 05/14/2020 Office Visit Radiation Oncology at [facility], Squamous cell [facility] carcinoma of [address] [address] RADIATION ONCOLOGY [phone] [place] [id number] Social History Tobacco Use Types Packs/Day Years Used Date Former Smoker Cigarettes 1 40 Quit: 01/09/20 03 Smokeless Tobacco: Never Used Alcohol Use Standard Drinks/Week Comments No 0 (1 standard drink = 0.6 oz pure alcoho l) Sex Assigned at Date Recorded Not on file documented as of this encounter Last Filed Vital Signs Vital Sign Reading Time Taken Comments Blood Pressure 128/67 05/14/2020 11:27 AM EST Pulse 70 05/14/2020 11:27 AM EST Temperature 36.8 ??C (98.3 ??F) 05/14/2020 11:27 AM EST Respiratory Rate 18 05/14/2020 11:27 AM EST Oxygen Saturation 100% 05/14/2020 11:27 AM EST Inhaled Oxygen Concentration - - Weight 69.9 kg (154 lb) 05/14/2020 11:27 AM EST with sh oes Height - - Body Mass Index 22.74 05/13/2020 2:03 PM EST documented in this encounter Progress Notes Eleazar Galdamez MD - 05/14/2020 11:00 AM EST ON TREATMENT VISIT NOTE Ward Santamaria is a 69 y.o. 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 Adjuvant chemoradiotherapy Current treatment dose: 46 Gy in 23 fractions. Anticipated total dose: 66 Gy in 33 fractions. Concomitant Therapy: Y ONC BCA CHEMO (AMB) 04/14/2020 04/21/2020 04/28/2020 Day, Cycle Day 1, Cycle 1 Day 8, Cycle 1 Day 15, Cycle 1 CISplatin (Platinol) IV 40 mg/m2/dose 40 mg/m2/dose 40 mg/m2/dose ONC BCA CHEMO (AMB) 05/05/2020 05/12/2020 Day, Cycle Day 22, Cycle 1 Day 29, Cycle 1 CISplatin (Platinol) IV 35 mg/m2/dose 35 mg/m2/dose Evaluation of Port Verification Films: PORT films have been reviewed, please see ARIA for details. Changes in medical condition General: he underwent a tarsorrhaphy to assist with conjunctival irritation; he also had a new G tube placed at that time. Pain: denies oropharyngeal pain Secretions/Dryness: increased xerostomia, severe dysgeusia. Using BSSW. Swallowing Function: no issues excepting dryness Nutrition: minimal by mouth. Limited by dysgeusia and nausea. G-tube: New g tube, painful. To start this evening with TG Skin: itching, no longer packing area adjacent to residual ear GI: -N/V: persistent nausea: marinol, zyprexa, compazine, ondansetron, MJ - no significant benefit. Lorazepam ordered. -Bowels: no issues Eye: Other: insomnia since initiation of Zyprexa. Nutrition Assessment: Weight : 77.6 kg initial Change: 72.4 => 69.9 Objective: SKIN: brisk skin erythema left neck, with no erythema within 1 cm of eye, dry desquamation and scabbing, primarily left SCLV MUCOSA: patchy mucositis left buccal mucosa, very dry Eye: s/p tarsorrhaphy Assessment: Moderate skin toxicity, tolerating. G tube for nausea, dysgeusia. S/p Tarsorraphy CTCAE TOXICITY GRADES (see below for mcneal): [...] been using and will start ?? Alimentation: director sales and trade marketing following ?? Weight decreased ?? G tube present - to start using today ?? N/V: lorazepam added ?? Eye: s/p tarsorrhaphy CTCAE v4.03 scales for reference Skin 0 [...] MD [facility] DR ONCOLOGY DEPT. [place], [place] [address] (Wo rk) 11/09/2021 Infusion Hematology and Oncology 12/10/2021 Office Visit Dermatology Silas Walters MD [address] DERMATOLOGY [place], [place] [address] (Wo rk) 09/19/2039 Hospital Encounter Surgery Osman Barnett MD [facility] OTOLARYNGOLOGY D EPT. [place], [place] [address] (Wo rk) Scheduled Procedures Name [...] face documented in this encounter Care Teams Political Scientist Relationship Specialty Start Date End Date Tara Joya MD PCP - General Family Medicine 05/16/[address] [place] [address] documented as of this encounter
--- OUTSIDE RECORDS SUMMARY | 2021-10-21 07:59 | XMS_ITS | Encounter Summary ---
:1950 Author Organization [facility] [place] [address] Care Team Providers Name Role Phone Tara Joya MD Primary Care Provider Encounter Details Date Type Department Care Team Description 05/26/2020 Office Visit Hematology/Oncology Ashok Ritchie Squa mous cell carcinoma of ear, left; at [facility] Chemotherapy-induced nausea; [address] [facility] [phone] ONCOLOGY DEPT. [phone] [place], [place] [address] Social History Tobacco Use Types [...] Sign Reading Time Taken Comments Blood Pressure 128/76 05/26/2020 10:43 AM EST Pulse 103 05/26/2020 10:43 AM EST Temperature 36.5 ??C (97.7 ??F) 05/26/2020 10:43 AM EST Respiratory Rate 16 05/26/2020 10:43 AM EST Oxygen Saturation 100% 05/26/2020 10:43 AM EST Inhaled Oxygen Concentration - - Weight 69.7 kg (153 lb 9.6 oz) 05/26/2020 10:43 AM EST Height 176.5 cm (5' 9.5) 05/26/2020 10:43 AM EST Body Mass Index 22.36 05/26/2020 10:43 AM EST documented in this encounter Progress Notes Ashok Ritchie MD - 05/26/2020 11:00 AM EST Images from the original note were not included. Hematology/Oncology Clinic [facility] Patient Active Problem List Diagnosis ??? [...] eyelid Added automatically from request for surgery [id number] ??? Encounter for venous access device care ??? Chemotherapy-induced nausea ??? Hearing loss Bilateral hearing aids prior to surgical loss of L ear 02/2020 ??? Mass of left ear Added automatically from request for surgery [id number] ??? Parotid mass Added automatically from request for surgery [id number] ??? History of basal cell carcinoma ??? [...] 76 mg 40 mg/m2/dose = 76 mg ONCN ONCOLOGY (AMB) 04/28/2020 05/05/2020 Day, Cycle Day 15, Cycle 1 Day 22, Cycle 1 CISplatin (Platinol) IV 40 mg/m2/dose = 76 mg 35 mg/m2/dose = 67 mg ONCN ONCOLOGY (AMB) 05/12/2020 05/19/2020 Day, Cycle Day 29, Cycle 1 Day 36, Cycle 1 CISplatin (Platinol) IV 35 mg/m2/dose = 67 mg 35 mg/m2/dose = 67 mg Med Onc checkup, and dose #7 cisplatin; due to complete 35 radiation fractions on 05/28. Last week's chemotherapy went well; he remains free of peripheral neuropathy or tinnitus; his background hearing dysfunction has not worsened. He continues to be bothered by nausea but this is no worsethan grade 1 with the current medication regimen. His bowels have been sluggish but have improved with the use of regular MiraLAX. He has been doing well with the feeding tube, weight has been stabilized. His is trying to get him to get in more regular hydration and protein powder. He was having some irritation around the PEGinsertion site, likely related to the bumper being too tight; Dr. Galdamez prescribed clindamycin which gave some improvement, and the bumper was loosened by Nancy Agee RN with advice from the ostomynurse at [facility]. He no longer has pain at the site, is dressing it with Desitin and a dry gauze. He has no worse than mild throat irritation from the radiation. I saw evidence of buccal candidiasisand put him on nystatin last week which he continues to take. His magnesium had been low, and I had recommended an [id number] magnesium oxide tablet twice aday; he admits to being less than regular with this. He has grade 1 fatigue, but is keeping up with ADLs. Physical exam: He looks well, no acute distress. He is accompanied by his who is his usual very well-informed and closely involved. His left eyelid still has a suture in place, closes nicely, has mild epiphora. Oral exam shows resolution of candidiasis. Mild left buccal irritation consistent with radiation. Moderate xerostomia. Neck exam shows bulky left neck flap, no palpable masses. Skin in the radiation field has grade 2 erythema, with focal moist desquamation under the fold of the left ear as before. The lungs are clear Cardiac exam is normal, faint flow murmur Abdomen is benign, without hepatosplenomegaly or masses. The G-tube site has much less erythema thanbefore, and the bumper is appropriately spaced off of the skin. See photograph below. Extremities are normal, no clubbing cyanosis or edema Neurologic exam shows normal motor and sensory function, independent ambulation. 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 Nonfasting glucose 216. Calcium normal. Magnesium remains low at 1.6. Hepatic enzymes normal, albumin stable at 3.4. Impression: High risk squamous cell cancer of the left ear, status post resection and nearly finished with a course of adjuvant chemoradiation for high risk features. Chemotherapy related nausea bettercontrolled with current medication regimen and chemotherapy dose reduction. Hypomagnesemia is a common side effect of cisplatin, and he has not been keeping up with oral supplementation. Nutrition stabilized with a G-tube. Cellulitis around the G- tube has been controlled with clindamycin plus loosening of the tube bumper. Oral candidiasis controlled with nystatin. Plan: Continue nystatin through the course of treatment. Resume magnesium oxide 1 tablet twice a day. Proceed with today's chemotherapy. Because of scheduling issues, we will move the hydration visit to Tuesday, which is his final radiation treatment day. Continue nutrition support through the G-tube, doubling up on the amount of hydration with each flush and continuing to push for extra protein powder with these flushes. Continue PEG site care as he's currently doing. We talked about the slow recovery after treatment such as this. We talked about the follow-up plan which will include fairly frequent clinical checkups and less frequent imaging. I will plan to see him in approximately 1 month with a port flush, and schedule a surveillance/follow-up CT scan in approximately 3 months. If that scan shows no evidence of disease, we can discuss Mediport removal then. Ashok Ritchie MD, FACP welding machine operator resistance Hematology/Oncology Section [facility] [place] [address] Voice recognition software used for this note; please excuse printing agent errors. I personally reviewed past medical, surgical, family medical histories, reviewed current medications, vital signs, labs, and performed full review of systems. These are documented below the narrative for clarity and succinctness. Outpatient Medications Marked as Taking for the 05/26/20 encounter (Office Visit) with Ashok Ritchie MD Medication Sig Dispense Refill ??? clindamycin (CLEOCIN) 300 mg Capsule Take 1 capsule by mouth 4 times daily for 7 days. 28 capsule 0 ??? ondansetron (Zofran) 8 mg Tablet Take 8 mg by mouth every 8 hours as needed for Nausea. ??? LORazepam (Ativan) 1 mg Tablet Take 1 tablet by mouth nightly as needed for Anxiety (for nausea). 30 tablet 0 ??? nystatin (Mycostatin) 100,000 unit/mL Suspension Take 5 mLs by mouth 3 times daily. 473 mL 0 ??? pantothenic Ac-Min Oil-Pet,Hyd (AQUAPHOR) 41 % Ointment Apply topically. ??? acetaminophen (Tylenol) 500 mg Tablet Take 1,000 mg by mouth every 8 hours as needed for Pain. ??? emollient base (CREAM BASE TOP) Apply topically. Jeans Cream. Apply to area of radiation twice aday but no less than 2 hours before a treatment. ??? prochlorperazine (Compazine) 10 mg Tablet Take [...] Review of systems is negative for other COMBINATION OPERATOR, bone, pulmonary, cardiac, GI, , extremity, neurologic, endocrine, skin, constitutional, emotional, or functional problems. Vitals Office Visit from 05/26/2020 in Hematology/Oncology at [facility] Weight 69.7 kg (153 lb 9.6 oz) Height 176.5 cm (5' 9.5) BSA (Calculated - sq m) 1.85 sq meters BMI (Calculated) 22.36 Temp 36.5 ??C (97.7 ??F) Temp src Temporal Heart Rate (!) 103 Heart Rate Source NIBP Resp 16 BP 128/76 BP Location Right arm Patient Position Sitting SpO2 100 % Body surface area is 1.85 meters squared. Wt Readings from Last 3 Encounters: 05/26/20 69.7 kg (153 lb 9.6 oz) 05/22/20 68.9 kg (152 lb) 05/21/20 69.9 kg (154 lb) No results found for this or any previous visit (from the past 72 hour(s)). ++++++++++++++++++++++++++++++++++++++++++++++++++++ documented in this encounter Plan of Treatment Upcoming Encounters Date Type Specialty Care Team Description 10/21/2021 Infusion Hematology and Oncology 11/09/2021 Office Visit Hematology and Oncology Alhaji Ritchie MD [facility] DR ONCOLOGY DEPT. [place], [place] [address] (Wo rk) 11/09/2021 Infusion Hematology and Oncology 12/10/2021 Office Visit Dermatology Silas Walters MD [address] DERMATOLOGY [place], [place] [address] (Wo rk) 09/19/2039 Hospital Encounter Surgery Osman Barnett MD [facility] OTOLARYNGOLOGY D EPT. [place], [place] [address] (Wo rk) Scheduled Procedures Name [...] of ear, left Chemotherapy-induced nausea Nausea alone Hypomagnesemia Disorders of magnesium metabolism documented in this encounter Care Teams Radar Signal Processing Engineer Relationship Specialty Start Date End Date Tara Joya MD PCP - General Family Medicine 05/16/[address] [place] [address] documented as of this encounter
--- OUTSIDE RECORDS SUMMARY | 2021-10-21 07:59 | XMS_ITS | Encounter Summary ---
:1950 Author Organization [facility] [place] [address] Care Team Providers Name Role Phone Tara Joya MD Primary Care Provider [phone] Reason for Referral Consultation (Routine) - Closed Specialty Diagnoses / Procedures Referred By Contact Refer red To Contact Radiation Oncology Diagnoses Squamous cell carcinoma of ear, left Eleazar Galdamez MD [facility] Rad Onc Office Procedures Re-simulation for Radiation Therapy Planning [address] [place] [phone] Fax: Referral ID Status Reason Start Date Expiration Date Visits V isits Requested Authorized [id number] Closed Consult, 05/06/2020 05/06/2021 1 1 Test & Treat Encounter Details Date Type Department Care Team Description 05/06/2020 Orders Only Radiation Oncology at [facility] Gal[facility]z, Squamous cell [facility] [place] [address] RADIATION ONCOLOGY [phone] [place], [place] [address] Social History Tobacco Use Types [...] Ritchie MD [facility] DR ONCOLOGY DEPT. [place], [place] [address] (Wo rk) 11/09/2021 Infusion Hematology and Oncology 12/10/2021 Office Visit Dermatology Silas Walters MD [address] DERMATOLOGY [place], [place] [address] (Wo rk) 09/19/2039 Hospital Encounter Surgery Osman Barnett MD [facility] OTOLARYNGOLOGY D EPT. [place], [place] [address] (Wo rk) Scheduled Orders Name [...] left documented in this encounter Care Teams Fraternity House Cook Relationship Specialty Start Date End Date Tara Joya MD PCP - General Family Medicine 05/16/[address] [place] [address] documented as of this encounter
--- OUTSIDE RECORDS SUMMARY | 2021-10-21 07:59 | XMS_ITS | Encounter Summary ---
:1950 Author Organization [place] [address] Care Team Providers Name Role Phone Tara Joya MD Primary Care Provider [phone] Encounter Details Date Type Department Care Team Description 05/09/2020 Telephone Otolaryngology at [facility] [place] [address] Social History Tobacco Use Types Packs/Day Years Used Date Former Smoker Cigarettes 1 40 Quit: 01/09/20 03 Smokeless Tobacco: Never Used Alcohol Use Standard Drinks/Week Comments No 0 (1 standard drink = 0.6 oz pure alcoho l) Sex Assigned at Date Recorded Not on file documented as of this encounter Miscellaneous Notes Telephone Encounter - Nicci Lozano - 05/09/2020 4:37 PM EST Nika called to find out how to get the G-Tube and I saw the order and that it was cancelled by IR.Then read the notes and it looks like Dr. Barnett is going to do this in the OR along with Eye repair. She is very worried it will take to long to get scheduled and things this needs to happen next week. I told her I would send this message to confirm this is the plan, and to make sure this is treated as urgent? I sent email to MAURA, FORD, AB and I told Nika to call me Tuesday documented in this encounter Plan of Treatment Upcoming Encounters Date Type Specialty Care Team Description 10/21/2021 Infusion Hematology and Oncology 11/09/2021 Office Visit Hematology and Oncology Alhaji Ritchie MD [facility] DR ONCOLOGY DEPT. [place], [place] [address] (Wo rk) 11/09/2021 Infusion Hematology and Oncology 12/10/2021 Office Visit Dermatology Silas Walters MD [address] DERMATOLOGY [place], [place] [address] (Wo rk) 09/19/2039 Hospital Encounter Surgery Osman Barnett MD [facility] OTOLARYNGOLOGY D EPT. [place], [place] [address] (Wo rk) Scheduled Procedures Name [...] on filedocumented in this encounter Care Teams Net Sql Developer Relationship Specialty Start Date End Date Tara Joya MD PCP - General Family Medicine 05/16/[address] [place] [address] documented as of this encounter
--- OUTSIDE RECORDS SUMMARY | 2021-10-21 07:59 | XMS_ITS | Encounter Summary ---
:1950 Author Organization [facility] [place] [address] Care Team Providers Name Role Phone Tara Joya MD Primary Care Provider [phone] Encounter Details Date Type Department Care Team Description 05/09/2020 Orders Only Hematology and Ashok Ritchie, Chemother apy-induced Oncology at [facility] [place] [address] ONCOLOGY DEPT. [phone] [place] [id number] Social History Tobacco Use Types Packs/Day Years Used Date Former Smoker Cigarettes 1 40 Quit: 01/09/20 03 Smokeless Tobacco: Never Used Alcohol Use Standard Drinks/Week Comments No 0 (1 standard drink = 0.6 oz pure alcoho l) Sex Assigned at Date Recorded Not on file documented as of this encounter Progress Notes Ashok Ritchie MD - 05/09/2020 9:09 AM EST [facility] Medical Oncology Phone Note F/U from yesterday's call. For nausea unresponsive to other meds, will trial PRN lorazepam. Considerbrain MRI; brain mets unlikely but could cause intractable nausea like this. Ashok Ritchie MD, FACP Hematology/Oncology Section, [facility] expeditionary fighting vehicle crewman, Formerly [facility] [phone] documented in this encounter Plan of Treatment Upcoming Encounters Date Type Specialty Care Team Description 10/21/2021 Infusion Hematology and Oncology 11/09/2021 Office Visit Hematology and Oncology Alhaji Ritchie MD [facility] DR ONCOLOGY DEPT. [place], [place] [address] (Wo rk) 11/09/2021 Infusion Hematology and Oncology 12/10/2021 Office Visit Dermatology Silas Walters MD [address] DERMATOLOGY [place], [place] [address] (Wo rk) 09/19/2039 Hospital Encounter Surgery Osman Barnett MD [facility] OTOLARYNGOLOGY D EPT. [place], [place] [address] (Wo rk) Scheduled Procedures Name [...] Visit Diagnoses Diagnosis Chemotherapy-induced nausea Nausea alone documented in this encounter Care Teams Manager Of Business Operations Relationship Specialty Start Date End Date Tara Joya MD PCP - General Family Medicine 05/16/[address] [place] [address] documented as of this encounter
--- OUTSIDE RECORDS SUMMARY | 2021-10-21 07:59 | XMS_ITS | Encounter Summary ---
:1950 Author Organization [place] [address] Care Team Providers Name Role Phone Tara Joya MD Primary Care Provider Encounter Details Date Type Department Care Team Description 05/21/2020 Office Visit Radiation Oncology at Ele[facility] Galdamez, Squamous cell [facility] carcinoma of [address] [address] RADIATION ONCOLOGY [phone] [place] [address] Social History Tobacco Use Types Packs/Day Years Used Date Former Smoker Cigarettes 1 40 Quit: 01/09/20 03 Smokeless Tobacco: Never Used Alcohol Use Standard Drinks/Week Comments No 0 (1 standard drink = 0.6 oz pure alcoho l) Sex Assigned at Date Recorded Not on file documented as of this encounter Last Filed Vital Signs Vital Sign Reading Time Taken Comments Blood Pressure 139/86 05/21/2020 12:56 PM EST Pulse 96 05/21/2020 12:56 PM EST Temperature 37.1 ??C (98.8 ??F) 05/21/2020 12:56 PM EST Respiratory Rate 18 05/21/2020 12:56 PM EST Oxygen Saturation 99% 05/21/2020 12:56 PM EST Inhaled Oxygen Concentration - - Weight 69.9 kg (154 lb) 05/21/2020 12:56 PM EST with sh oes Height - - Body Mass Index 22.73 05/19/2020 11:20 AM EST documented in this encounter Progress Notes Eleazar Galdamez MD - 05/21/2020 11:15 AM EST ON TREATMENT VISIT NOTE Ward Santamaria is a 69 y.o. 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 Adjuvant chemoradiotherapy Current treatment dose: 56 Gy in 28 fractions. Anticipated total dose: 66 Gy in [...] IV 35 mg/m2/dose 35 mg/m2/dose 35 mg/m2/dose Evaluation of Port Verification Films: PORT films have been reviewed, please see ARIA for details. Changes in medical condition Pain: denies oropharyngeal pain Secretions/Dryness: high level xerostomia, severe dysgeusia. Using BSSW. Swallowing Function: no issues excepting dryness Nutrition: minimal by mouth, just liquids. Limited by dysgeusia and nausea. G-tube: TF going well, notes increased pain and redness associated with his feeding tube site Skin: itching, no longer packing area adjacent to residual ear GI: -N/V: persistent nausea: marinol, zyprexa, compazine, ondansetron, MJ - no significant benefit. Lorazepam. -Bowels: no issues Eye: improved since tarsorrhaphy Other: insomnia since initiation of Zyprexa. Nutrition Assessment: Weight : 77.6 kg initial Change: 69.9 => 69.9 Objective: SKIN: brisk skin erythema left neck, with no erythema within 1 cm of eye, dry desquamation and scabbing, primarily left SCLV, some desquamation under ear remnant MUCOSA: patchy mucositis left buccal mucosa, very dry Eye: s/p tarsorrhaphy G-tube: erythema around site extending out a few centimeters, patchy. Bumper appears very tight withpressure associated desquamation. Assessment: Moderate skin toxicity, tolerating. G tube, nausea stable. Will need to have Gen Surgery assess G tube bumper. Likely cellulitis. CTCAE TOXICITY GRADES (see below for mcneal): [...] been using and will start ?? Alimentation: hot dip plating supervisor following ?? Weight stable, all via G tube ?? G tube: start clindamycin 300 mg QID x 7 days. To be assessed by Gen Surg regarding tube. ?? N/V: medications as noted above ?? Eye: s/p tarsorrhaphy CTCAE v4.03 scales [...] Hematology and Oncology Alhaji Ritchie MD [facility] DR ONCOLOGY DEPT. [place], [place] [address] (Wo rk) 11/09/2021 Infusion Hematology and Oncology 12/10/2021 Office Visit Dermatology Silas Walters MD [address] [facility] DERMATOLOGY [place], [place] [address] (Wo rk) 09/19/2039 Hospital Encounter Surgery Osman Barnett MD [facility] OTOLARYNGOLOGY D EPT. [place], [place] [address] (Jin rk) Scheduled Procedures Name [...] face documented in this encounter Care Teams Wind Technician Relationship Specialty Start Date End Date Tara Joya MD PCP - General Family Medicine 05/16/[address] [place] [address] documented as of this encounter
--- OUTSIDE RECORDS SUMMARY | 2021-10-21 07:59 | XMS_ITS | Encounter Summary ---
:1950 Author Organization [facility] [place] [address] Care Team Providers Name Role Phone Tara Joya MD Primary Care Provider [phone] Reason for Visit Reason Comments Chemotherapy Cycle 1, Day 22 - Cisplatin Treatment/Therapy Plan Authorization (Routine) - Closed Specialty Diagnoses / Procedures Referred By Contact Refer red To Contact Diagnoses Squamous cell carcinoma of ear, left Chemotherapy-induced nausea Ashok Ritchie MD [facility] Hem Onc Infusion [address] [place] [phone] Fax: Referral ID Status Reason Start Date Expiration Date Visits Requ ested Visits Authorized [id number] Closed 03/10/2020 03/10/2021 99 99 Encounter Details Date Type Department Care Team Description 05/05/2020 Infusion Hematology Oncology at [facility] emotherapy-induced nausea; [facility] Squamous cell carcinoma of e ar, left [address] [place] [phone] Social History Tobacco Use Types Packs/Day Years Used Date Former Smoker Cigarettes 1 40 Quit: 01/09/20 03 Smokeless Tobacco: Never Used Alcohol Use Standard Drinks/Week Comments No 0 (1 standard drink = 0.6 oz pure alcoho l) Sex Assigned at Date Recorded Not on file documented as of this encounter Progress Notes Francesca Wilson RN - 05/05/2020 12:00 PM EST INFUSION THERAPY ADMINISTRATION NOTES DIAGNOSIS: Basal cell carcinoma of the ear CYCLE #: Cycle 1, Day 22 - Cisplatin REASON FOR VISIT: To receive chemotherapy. SUBJECTIVE: Ward offers no complaints. OBJECTIVE; Seen by provider. Ready to treat. LAB DATA: WBC - 7.27, H/H - 13.3/38.3, Plt Ct - 172, ANC - 5.27, Lytes wnl, MG++ - 1.8, BUN/CR - 27/1.2 IV ACCESS: Port accessed off site. Flushes readily with brisk blood return. Pre administration: Chemotherapy orders independently verified for drug name, route, and dosage per patient's height, weight and BSA by Larisa Wilson RN and Christine Quintanilla [facility]. REACTIONS (DESCRIPTION, TIME, INTERVENTION AND EFFECTIVENESS) none ASSESSMENT: Ward was awake, alert and tolerated treatment well. Port flushed with 20 cc's of NS and 500 units ofheparin and de-accessed. PLAN: Return to clinic tomorrow for hydration. documented in this encounter Plan of Treatment Upcoming Encounters Date Type Specialty Care Team Description 10/21/2021 Infusion Hematology and Oncology 11/09/2021 Office Visit Hematology and Oncology Alhaji Ritchie MD [facility] DR ONCOLOGY DEPT. [place], [place] [address] (Jin carson) 11/09/2021 Infusion Hematology and Oncology 12/10/2021 Office Visit Dermatology Silas Walters MD [address] [place] [address] DERMATOLOGY [place], [place] [address] (Jin carson) 09/19/2039 Hospital Encounter Surgery Osman Barnett MD [facility] OTOLARYNGOLOGY D EPT. [place], [place] [address] (Jin carson) Scheduled Procedures Name [...] Dose Rate Site aprepitant (CINVANTI) injection Given 05/05/2020 12:48 PM EST 13 0 mg Emul 130 mg 130 mg, Intravenous, ONCE, 1 dose, On Tue05/05/20 at 1230, Alternative administration of IV push over 2 minutes is a recommendation from the piano case and bench assembler. Administer prior to chemotherapy., Routine CISplatin (Platinol) 67 mg in sodium New Bag 05/05/2020 1:16 P M EST 67 mg 317 mL/hr chloride 0.9% 317 mL infusion 67 mg (rounded from 66.85 mg = 35 mg/m2/dose ? 1.91 m2 Treatment Plan BSA from Recorded weight), Intravenous, ONCE, 1 dose, On Tue05/05/20 at 1330, Administer over 60 Minutes, Warning Vesicant/Irritant Medication dexamethasone (Decadron) injection 10 mg Given 05/05/2020 12:48 PM EST 10 mg 10 mg, Intravenous, ONCE, 1 dose, On Tue05/05/20 at 1230, Administer prior to chemotherapy heparin (pf) (porcine) (100 units/mL) Given 05/05/2020 2:[address] 500 Units flush 5 mL syringe 500 Units 500 Units, Intravenous, ONCE PRN, Starting on Tue05/05/20 at 1211, Until Tue05/05/20 at 1737, Line Care, Refer to Intravenous (IV) Procedure: Accessing Implanted Vascular Access Devices (784) procedure and/or Intravenous (IV) Job Aid: Adult Flushing & Catheter Care (4264) job aid for additional information regarding guidelines and administration., Routine palonosetron (Aloxi) (0.25 mg/mL) injection Given 04/21 12:48 PM EST 0.25 mg 0.25 mg 0.25 mg, Intravenous, ONCE, 1 dose, On Tue05/05/20 at 1230, Administer over 30 seconds. Administer prior to chemotherapy, Routine sodium chloride 0.9 % (flush) flush 5-20 mL Given 05/05/2020 2:21 PM EST 20 mLs 5-20 mL, Intravenous, EVERY 1 MIN PRN, Starting on Tue05/05/20 at 1211, Until Tue05/05/20 at 1737, Line Care, Flush pertains to all indwelling lines. Flush per protocol found in the job aid using the link provided on this medication record. Refer to Intravenous (IV) Job Aid: Adult Flushing & Catheter Care (8138) job aid for additional information regarding guidelines and administration., Routine sodium chloride 0.9% infusion New Bag 05/05/2020 12:00 PM EST 1,000 mLs 1000 mL/hr 1,000 mL, at 1,000 mL/hr, Intravenous, CONTINUOUS, Starting on Tue05/05/20 at 1230, Until Tue05/05/20 at 1329, Pre-CISplatin sodium chloride 0.9% infusion New Bag 05/05/2020 1:17 PM EST 500 mLs 500 mL/hr 500 mL, at 500 mL/hr, Intravenous, CONTINUOUS, Starting on Tue05/05/20 at 1430, Until Tue05/05/20 at 1529, Post CISplatin documented in this encounter Care Teams Build Master Relationship Specialty Start Date End Date Tara Joya MD PCP - General Family Medicine 05/16/[address] [address] documented as of this encounter
--- OUTSIDE RECORDS SUMMARY | 2021-10-21 07:59 | XMS_ITS | Encounter Summary ---
:1950 Author Organization [facility] [place] [address] Care Team Providers Name Role Phone Tara Joya MD Primary Care Provider [phone] Encounter Details Date Type Department Care Team Description 05/12/2020 Office Visit Hematology/Oncology at Caterina Aguirre, Catie uamous cell [facility] RD carcinoma of ear, left [address] [place] [phone] Social History Tobacco Use Types Packs/Day Years Used Date Former Smoker Cigarettes 1 40 Quit: 01/09/20 03 Smokeless Tobacco: Never Used Alcohol Use Standard Drinks/Week Comments No 0 (1 standard drink = 0.6 oz pure alcoho l) Sex Assigned at Date Recorded Not on file documented as of this encounter Progress Notes Caterina Aguirre RD - 05/12/2020 1:00 PM EST [facility] Dietitian Follow Up Seen By: Caterina Aguirre [...] upper eyelid H02.204 Meds: reviewed Labs: reviewed, sodium 135 Estimated body mass index is 22.37 kg/m?? as calculated from the following: Height as of an earlier encounter on 05/12/20: 176.5 cm (5' 9.49). Weight as of an earlier encounter on 05/12/20: 69.7 kg (153 lb 9.6 oz). Wt Readings from Last 3 Encounters: 05/12/20 69.7 kg (153 lb 9.6 oz) 05/08/20 71.5 kg (157 lb 9.6 oz) 05/07/20 72.4 kg (159 lb 9.6 oz) Weight at start of treatment: 171 lbs on 04/10/20 10% weight loss in one month, severe Wt Hx: UBW: ~170 lbs % UBW: IBW: +/- 10% % IBW: ___ Edema ___ Ascites ___Muscle wasting Calorie needs: 8077-5387 (30-35 kcal/kg) Protein needs: 105 grams (1.5 g/kg) Fluid needs: ~2.1+ L Nutrition Assessment: Food Intake: Limited to liquids, but this is even becoming more challenging. provides constant encouragement. Patient is unable to maintain adequate caloric intake. Nutrition support: Recommend 6 cartons of Nutren 1.5 to provide 2250 calories 102 grams protein and 1146 ml water. Supplements/Frequency: ___ Ensure/Plus ___ Boost/Plus ___ CIB ___ Other: Teas, vitamins, or other nutritional supplements: Food allergies or avoidances: denies Appetite: poor Nausea: + Vomiting: denies Chewing: takes longer, small bites at a time Dentition: teeth present Swallowing: OK Taste Changes: ++dygeusia Bowels: did not assess Food availability/purchasing, meal planning and preparation: self, Social Support: Physical Activity: Anticipated adherence/understanding: good Nutrition Diagnosis: Inadequate oral intake related to nausea and poor appetite while undergoing chemo/RT for SCCa of theleft ear and parotid as evidenced by weight trends above. Plan for g-tube placement 05/13/20. Length of need is >90 days. PO intake for comfort only at this time. Nutrition Intervention: ? Increased caloric needs ? Modify diet consistency: limited to liquids ? Enteral Nutrition: Plan for g-tube placement on 05/13 - patient requires enteral nutrition as primary route of nutrition at this time with goal to meet 100% patient's estimated needs. ? Provided gtube teach and supplies to get started. Recommend patient administer 6 cartons per day of Nutren 1.5 via g-tube Monitoring and Evaluation: Will follow up weekly. knows to reach out questions/concerns arise in the meantime. documented in this encounter Plan of Treatment Upcoming Encounters Date Type Specialty Care Team Description 10/21/2021 Infusion Hematology and Oncology 11/09/2021 Office Visit Hematology and Oncology Alhaji Ritchie MD [facility] DR ONCOLOGY DEPT. [place], [place] [address] (Jin carson) 11/09/2021 Infusion Hematology and Oncology 12/10/2021 Office Visit Dermatology Silas Walters MD [address] [place] [address] RD DERMATOLOGY [place], [place] [address] (Jin carson) 09/19/2039 Hospital Encounter Surgery Osman Barnett MD [facility] OTOLARYNGOLOGY D EPT. [place], [place] [address] (Jin carson) Scheduled Procedures Name [...] left documented in this encounter Care Teams Brainer Relationship Specialty Start Date End Date Tara Joya MD PCP - General Family Medicine 05/16/[address] [place] [address] documented as of this encounter
--- OUTSIDE RECORDS SUMMARY | 2021-10-21 07:59 | XMS_ITS | Encounter Summary ---
:1950 Author Organization [facility] [place] [address] Care Team Providers Name Role Phone Tara Joya MD Primary Care Provider [phone] Encounter Details Date Type Department Care Team Description 05/07/2020 Office Visit Hematology/Oncology at Gilda Jameson D ysphagia, unspecified type; [facility] JOURNALISM INSTRUCTOR Parotid [address] [phone] Social History Tobacco Use Types Packs/Day Years Used Date Former Smoker Cigarettes 1 40 Quit: 01/09/20 03 Smokeless Tobacco: Never Used Alcohol Use Standard Drinks/Week Comments No 0 (1 standard drink = 0.6 oz pure alcoho l) Sex Assigned at Date Recorded Not on file documented as of this encounter Miscellaneous Notes Treatment - Therapy - Gilda Jameson, LONG - 05/07/2020 10:00 AM ESTSummary: JOURNALISM INSTRUCTOR Follow Up Visit Speech Language Pathology Treatment Note Patient Profile: Ward Santamaria is a 69 y.o. 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 Receiving concurrent chemo/RT. HPI: Patient Active Problem [...] R11.0, T45.1X5A Subjective: Ward Santamaria seen briefly in clinic today for follow up visit to address dysphagia management and trismus monitoring; spouse Nika also present. Patient was very fatigued today. Objective: Pain: 0/10 Respiratory Status: Room [...] initial assessment: ?? Jaw: Impaired mobility, reports increased pain today ?? Trismus: Yes ?? SUNITA: DNT due to pain - spouse reports he is able to fit 2 fingers vertically into oral cavity forinformal measurement (Missael et al, 2006) ?? Lateral Excursion: DNT due to pain (AAOMS Parameters of Care, 2007) ?? Dentition: [...] to 100 (High functioning) Education Addressed: - Use of EAT-RT protocol as tolerated despite pain levels with both patient and spouse, effortful saliva swallows as additional exercise to perform during course of treatment, and continued thorough oral care. - Risk Management Compensatory Techniques/Precautions: Slow Rate, Small Bites and Small Sips Upright position during meals and for at least 30 mins following Sensory enhancement (flavor, texture, temperature) as tolerated Excellent oral care Pt/spouse able to demonstrate comprehension of recommendations Assessment Ward Santamaria demonstrates increased severity of oropharyngeal dysphagia primarily characterized by odynophagia and jaw pain at this time, will continue to monitor throughout treatment course as appropriate. Diagnosis: Oropharyngeal dysphagia Recommendations: Instrumentation: N/A at this time, may benefit from Videofluoroscopic Swallow Study / Modified Barium Swallow Study [VFSS/MBSS] if symptoms persist once treatment course has been completed Diet: Solids as tolerated IDDSI Level 4 Pureed, Level 0 - thin liquids, may increase viscosity if overt s/sx aspiration are noted, encourage follow up with JOURNALISM INSTRUCTOR in this case PO medications: as tolerated [...] / nutrition with optimal safety and efficiency. Further goals TBD pending VFSE/MBSS or FEES. Plan: Discussed subsequent visit for 06/04/20. Pt./family are in agreement with treatment plan. Thank you for this consult. Please feel free to call me with any questions or concerns regarding Ward Santamaria's care. Gilda Jameson MA [facility]-JOURNALISM INSTRUCTOR Speech-Language Pathologist [email or web address] documented in this encounter Plan of Treatment Upcoming Encounters Date Type Specialty Care Team Description 10/21/2021 Infusion Hematology and Oncology 11/09/2021 Office Visit Hematology and Oncology Alhaji Ritchie MD [facility] DR ONCOLOGY DEPT. [place], [place] [address] (Wo rk) 11/09/2021 Infusion Hematology and Oncology 12/10/2021 Office Visit Dermatology Silas Walters MD [address] [facility] [facility] [address] DERMATOLOGY [place], [place] [address] (Wo rk) 09/19/2039 Hospital Encounter Surgery Osman Barnett MD [facility] OTOLARYNGOLOGY D EPT. [place], [place] [address] (Wo rk) Scheduled Procedures Name [...] neck documented in this encounter Care Teams Roofing Subcontractor Relationship Specialty Start Date End Date Tara Joya MD PCP - General Family Medicine 05/16/[address] [place] [address] documented as of this encounter
--- OUTSIDE RECORDS SUMMARY | 2021-10-21 07:59 | XMS_ITS | Encounter Summary ---
:1950 Author Organization [facility] Address [facility] [place] [address] Care Team Providers Name Role Phone Tara Joya MD Primary Care Provider [phone] Encounter Details Date Type Department Care Team Description 05/22/2020 Notes Only Hematology/Oncology at Mariela Gallardo MSW [facility] OFFICE OF CARE [address] [place] [address] [phone] Social History Tobacco Use Types Packs/Day Years Used Date Former Smoker Cigarettes 1 40 Quit: 01/09/20 03 Smokeless Tobacco: Never Used Alcohol Use Standard Drinks/Week Comments No 0 (1 standard drink = 0.6 oz pure alcoho l) Sex Assigned at Date Recorded Not on file documented as of this encounter Progress Notes Mariela Gallardo MSW - 05/22/2020 11:42 AM EST Follow up with pt during his infusion visit today. Pt indicated he will be done with his treatments next week and he is looking forward to being done. His continues as his primary support. He did not identify any new needs. Offered support. Will continue to follow for support and resources. documented in this encounter Plan of Treatment Upcoming Encounters Date Type Specialty Care Team Description 10/21/2021 Infusion Hematology and Oncology 11/09/2021 Office Visit Hematology and Oncology Alhaji Ritchie MD [facility] DR ONCOLOGY DEPT. [place], [place] [address] (Wo rk) 11/09/2021 Infusion Hematology and Oncology 12/10/2021 Office Visit Dermatology Silas Walters MD [address] DERMATOLOGY [place], [place] [address] (Wo rk) 09/19/2039 Hospital Encounter Surgery Osman Barnett MD [facility] OTOLARYNGOLOGY D EPT. [place], [place] [address] (Wo rk) Scheduled Procedures Name [...] on filedocumented in this encounter Care Teams Solar Field Installation Crew Member Relationship Specialty Start Date End Date Tara Joya MD PCP - General Family Medicine 05/16/[address] [place] [address] documented as of this encounter
--- OUTSIDE RECORDS SUMMARY | 2021-10-21 07:59 | XMS_ITS | Encounter Summary ---
:1950 Author Organization [place] [address] Care Team Providers Name Role Phone Tara Joya MD Primary Care Provider [phone] Encounter Details Date Type Department Care Team Description 05/08/2020 Orders Only Hematology and Ashok Ritchie, Chemother apy-induced nausea; [place] [facility] [place] Squamous cell carcinoma of ear, left [facility] [address] ONCOLOGY DEPT. [phone] [place], [place] [address] Social History Tobacco Use Types Packs/Day Years Used Date Former Smoker Cigarettes 1 40 Quit: 01/09/20 03 Smokeless Tobacco: Never Used Alcohol Use Standard Drinks/Week Comments No 0 (1 standard drink = 0.6 oz pure alcoho l) Sex Assigned at Date Recorded Not on file documented as of this encounter Progress Notes Ashok Ritchie MD - 05/08/2020 1:19 PM EST [facility] Medical Oncology/[facility] Phone Note Message from Nancy Agee RN: pt is struggling more with oral intake. He would like a G-tube for nutrition support. L lower lid droop is worse, and bothersome. Plan: 1. Will request G-tube placement by IR 2. Message to ENT team requesting f/u visit to discuss lid pexy +/- lid weight for better lid closure. Ashok Ritchie MD, FACP Hematology/Oncology Section, [facility] clinic director, [facility] [phone] documented in this encounter Plan of Treatment Upcoming Encounters Date Type Specialty Care Team Description 10/21/2021 Infusion Hematology and Oncology 11/09/2021 Office Visit Hematology and Oncology Alhaji Ritchie MD [facility] DR ONCOLOGY DEPT. [place], [place] [address] (Wo rk) 11/09/2021 Infusion Hematology and Oncology 12/10/2021 Office Visit Dermatology Silas Walters MD [address] [place] [address] DERMATOLOGY [place], [place] [address] (Wo rk) 09/19/2039 Hospital Encounter Surgery Osman Barnett MD [facility] OTOLARYNGOLOGY D EPT. [place], [place] [address] (Wo rk) Scheduled Procedures Name [...] left documented in this encounter Care Teams Plastics Spreading Machine Operator Relationship Specialty Start Date End Date Tara Joya MD PCP - General Family Medicine 05/16/[address] [place] [address] documented as of this encounter
--- OUTSIDE RECORDS SUMMARY | 2021-10-21 07:59 | XMS_ITS | Encounter Summary ---
:1950 [place] [address] Care Team Providers Name Role Phone Tara Joya MD Primary Care Provider [phone] Encounter Details Date Type Department Care Team Description 05/13/2020 Anesthesia Event Main Operating Room Dhruv Prado MD [facility] [place] [address] [facility] Darius Mccrary MD [facility] DR [place] [address] [place] [address] Anesthesia Record Procedure Summary Procedure Name Responsible Anesthesia Start Anesthesia Stop Anesthesiologist Time Time TEMPORARY CLOSURE OF Dhruv Feliciano MD 05/13/20 1506 04/22 06/08 1616 EYELID BY SUTURE, TARSORRHAPHY (WRVU 1.35) (Left Face) Events Date Time Event Comment 05/13/2020 1503 1506 AN Verify 1506 Start 1506 An Start Data 1511 An Induction 1512 An Intubation 1514 Anesthesia Ready 1606 Extubation/LMA Out 1616 an stop data 1616 Recovery or ICU Handoff Patient care was transferred to the destination unit staff after review of the patient's medica l history, current anesthetic/surgi camilo status and plan, according to the Provider Handoff Checklist. 1616 Stop Name Total Midazolam 2 mg Propofol 200 mg Rocuronium 50 mg ePHEDrine 35 mg Ondansetron 4 mg Glycopyrrolate 0.2 mg Sugammadex 200 mg lactated ringers infusion 0 mL Lactated Ringers 900 mL Agents Name O2 Air N2O Sevoflurane (et) Blood No blood administrations on file. Lines, Drains, and Airways Type Details Placement Removal Incision 02/20/20; ear (POST 02/20/20 0000 by AURICULAR TEMPORAL BONE) Gina Mora, CONNOR Incision 02/20/20; neck 02/20/20 0000 by Gina Mora, CONNOR Incision 02/20/20; 1657; chest 02/20/20 1657 by Gina Mora RN Lumbar/CSF Drain 02/20/20; 1808; Left; 02/20/20 1808 by chest; (15F merrill drain Hendee, Vickie L, with bulb) RN Lumbar/CSF Drain 02/20/20; 1809; Left; 02/20/20 1809 by anterior; neck; (19F merrill Hendee, Vickie L, drain with bulb) RN Incision 04/08/20; 1709; neck; 04/08/20 1709 by non-laparascopic puncture; Marion Peralta RN Mediport insertion site Incision 04/08/20; 1710; chest; 04/08/20 1710 by horizontal, Marion Peralta RN non-laparascopic puncture; Mediport pocket site Enterostomy Tube 05/13/20; 1533; PEG 05/13/20 1533 by (percutaneous endoscopic Nataly, Heidy J, gastrostomy); LUQ (left RN upper quadrant) Incision 05/13/20; 1556; Left; 05/13/20 1556 by eyelid (eye droop repaired Nataly, Heidy J, with stitch) RN Implanted Port - 05/13/20; 1416; 05/13/20 1416 by 09/19/20 1303 by Single Lumen infraclavicular fossa, Kylie Thompson RN Maln ati, Jillian (non-apheresis) right; pressure injectable A, RN catheter; superior vena cava; Jyoti MoraRN; 09/19/20; 1303 ETT Mask Ventilation: 05/13/20 1513 by 05/13/20 1606 by Difficult (3); ETT Type: Mary Lou Thomas, Terrell lopez, Mary Lou Cuffed, Oral; ETT Size: 7 CLAY MINER J, CRN A mm; Indirect:Video; Notes: Asleep, Pre-O2, Stylette; Attempts: 1; Laryngoscopy Grade: 1; ETT Placement Verified By: Auscultation, Capnometry, Visual; Inserted by: Mary Lou Thomas CRNA documented in this encounter Social History Tobacco Use Types Packs/Day Years Used Date Former Smoker Cigarettes 1 40 Quit: 01/09/20 03 Smokeless Tobacco: Never Used Alcohol Use Standard Drinks/Week Comments No 0 (1 standard drink = 0.6 oz pure alcoho l) Sex Assigned at Date Recorded Not on file documented as of this encounter OR Notes Anesthesia Postprocedure Evaluation - Dhruv Feliciano MD - 05/13/2020 4:19 PM EST Department of Anesthesiology Post-procedure Note Patient: Ward Santamaria Procedure Summary Date: 05/13/20 Room / Location: [facility] OR [facility] MAIN OR Anesthesia Start: 1506 Anesthesia Stop: 161 Procedures: TEMPORARY CLOSURE OF EYELID BY SUTURE, TARSORRHAPHY (WRVU 1.35) (Left Face) LARYNGOSCOPY, WITH MICROSCOPE (WRVU 2.57) (N/A Throat) ENDOSCOPY W DIRECTED PLACEMENT PERCUTANEOUS GASTROSTOMY TUBE-PEG (WRVU 3.66) (N/A Abdomen) Diagnosis: Squamous cell carcinoma, ear, left Lagophthalmos of left upper eyelid, unspecified lagophthalmos type (facial palsy poor eye closure) Surgeons: Osman Barnett MD; Trent Wood MD Responsible Provider: Dhruv Feliciano MD Anesthesia Type: general ASA Status: 3 All Anesthesia Providers: Anesthesiologist: Dhruv Feliciano MD CLAY MINER: Mary Lou Thomas CRNA Vitals Value Taken Time BP 126/64 05/13/20 1615 Temp 36.4 ??C (97.5 ??F) 05/13/20 1610 Pulse Resp SpO2 97 % 05/13/20 1610 Pain Level Patient Location: PACU/LOCATED WITHIN [facility] Level of Consciousness: Awake and Alert Pain Management: Satisfactory Analgesia PONV: None Cardiovascular Status: At Baseline and Hemodynamically Stable Respiratory Status: At Baseline and Room Air Postoperative Fluid Status: Intravascular EUvolemia Possible Anesthetic Complications: NONE apparent at time of evaluation Final Primary Anesthesia Type: General (The anesthetic type performed was the same as planned.) Comments: DHRUV FELICIANO MD Anesthesia Preprocedure Evaluation - Dhruv Feliciano MD - 05/12/2020 6:58 PM EST Pre-Anesthesia Evaluation for: Ward Santamaria a 69 y.o. male. Procedure(s): CORRECTION OF LAGOPHTHALMOS, IMPLANT UPPER LID LOAD (WRVU 6.36) LARYNGOSCOPY, WITH MICROSCOPE (WRVU 2.57) GASTROSTOMY TUBE, PERCUTANEOUS, W FLUORO (WRVU 4.18) LAPAROSCOPIC GASTROSTOMY TUBE PLACEMENT (WRVU *) Patient Active Problem List Diagnosis ??? Lagophthalmos of left upper eyelid Added automatically from request for surgery [id number] ??? Encounter for venous access device care ??? Chemotherapy-induced nausea ??? Hearing loss Bilateral hearing aids prior to surgical loss of L ear 02/2020 ??? Squamous cell carcinoma of ear, left [...] with concurrent weekly cisplatin instituted 04/14/2020 ??? Mass of left ear Added automatically from request for surgery [id number] ??? Parotid mass Added automatically from request for surgery [id number] ??? History of basal cell carcinoma ??? [...] negative ??? Basal cell cancer ??? Hypertriglyceridemia No past medical history on file. Past Surgical History: Procedure Laterality Date ??? IR MEDIPORT PLACEMENT/EXCHANGE 04/08/2020 IR Mediport Placement 04/08/2020 Mann Escobar APRN [facility] INTERVENTIONL RAD ??? KIDNEY STONE SURGERY ??? PRG SOMATOSENSORY TEST, ANY/ALL PER. NERVES, TRUNK OR HEAD N/A 02/20/2020 FACIAL NERVE MONITORING, SETUP PERIPHERAL (WRVU 0.54) performed by Osman Barnett MD at [facility] MAIN OR ??? PRO ADJ TISS TRANSFER/REARRANGEMENT ANY AREA 30.1-60 SQCM Left 02/20/2020 ADJACENT TISSUE TRANSFER OR REARRANGEMENT; 30.1 TO 60.0 SQ CM, THORAX (WRVU 12.65) performed by Osman Barnett MD at [facility] MAIN OR ??? PRO ADJ TISS TRANSFER/REARRANGEMENT ANY AREA EA ADDL 30SQCM Left 02/20/2020 ADJACENT TISSUE TRANSFER OR REARRANGEMENT; EA ADD'L 30.0 SQ CM, OR PART OF (WRVU 3.73) performed byOsman Barnett MD at [facility] MAIN OR ??? PRO COLONOSCOPY, REMV LESN, SNARE N/A 07/07/2015 COLONOSCOPY, POLYPECTOMY, REMOVAL LESION BY SNARE performed by Jose Manuel Heller MD at [facility] ENDOSCOPY ??? PRO EXC PAROTD, TOTAL, DISSECT 5TH NERV Left 02/20/2020 EXCISION OF PAROTID TUMOR OR PAROTID GLAND, TOTAL, WITH DISSECTION AND PRESERVATION OF FACIAL NERVE(WRVU 19.53) performed by Osman Barnett MD at [facility] MAIN OR ??? PRO EXC SKIN MALIG 3.1-4CM FACE, FACIAL Left 02/20/2020 EXC MALIGNANT LESION, 3.1 TO 4.0CM, FACE (WRVU 4.34) performed by Osman Barnett MD at [facility] MAIN OR ? ? PRO EXC SKIN MALIG >4CM FACE, FACIAL Left 02/20/2020 EXC MALIGNANT LESION, >4.0CM, EARS (WRVU 6.26) performed by Osman Barnett MD at [facility] VANNESA ??? PRO MICROSURG TECHNIQUES, REQ OPER MICROSCOPE N/A 02/20/2020 MICROSCOPE USE (WRVU 3.46) performed by Neo Gilman MD at [facility] MAIN OR ??? PRO MUSCLE-SKIN FLAP, TRUNK Left 02/20/2020 FLAP, MYOCUTANEOUS OR FASCIOCUTANEOUS, TRUNK (WRVU 19.86) performed by Osman Barnett MD at [facility] MAIN OR ??? PRO REMOVAL NODES, NECK, CERV MOD RAD Left 02/20/2020 @CERVICAL LYMPHADENECTOMY (MODIFIED RADICAL NECK DISSECTION) (WRVU 23.95) performed by Osman Barnett MD at [facility] MAIN OR ??? PRO RESECT TEMPORAL BONE, WIND PLANT MANAGER APPRCH Left 02/20/2020 @RESECTION TEMPORAL BONE, EXTERNAL APPROACH (WRVU 37.42) performed by Neo Gilman MD at [facility] Social History Tobacco Use ??? Smoking status: Former Smoker Packs/day: 1.00 Years: 40.00 Pack years: 40.00 Types: Cigarettes Quit date: 01/08/2003 Years since quittin.3 ??? Smokeless tobacco: Never Used Substance Use Topics ??? Alcohol use: No Social History Substance and Sexual Activity Drug Use No Allergies Allergen Reactions ??? Penicillins rash ??? Codeine Phosphate Rash Medications: MAR and/or home medications have been reviewed. Physical Exam: No data found. There is no height or weight on file to calculate BMI. 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 ?? PMH significant for CAD (stent in 2000), bipolar disorder, treated hep C, former smoker and PAULINO. ?? Limited neck extension Will use video laryngoscope Plan GETA. ?? Informed Consent: Anesthetic plan and risks discussed with patient and spouse. Plan discussed with CLAY MINER. PAT Clinic Note documented in this encounter Plan of Treatment Upcoming Encounters Date Type Specialty Care Team Description 10/21/2021 Infusion Hematology and Oncology 11/09/2021 Office Visit Hematology and Oncology Alhaji Ritchie MD [facility] DR ONCOLOGY DEPT. [place], [place] [address] (Wo rk) 11/09/2021 Infusion Hematology and Oncology 12/10/2021 Office Visit Dermatology Silas Walters MD [address] [facility] DERMATOLOGY [place], [place] [address] (Wo rk) 09/19/2039 Hospital Encounter Surgery Osman Barnett MD [facility] OTOLARYNGOLOGY D EPT. [place], [place] [address] (Wo rk) Scheduled Procedures Name [...] Diagnoses Not on filedocumented in this encounter Administered Medications Inactive Administered Medications - up to 3 most recent administrations Medication Order MAR Action Action Date Dose Rate Site ePHEDrine (pf) (5 mg/mL) multi-dose Given 05/13/2020 3:54 PM EST 10 mg injection Intravenous, PRN, Starting on Tue05/13/20 at 1548, Until Tue05/13/20 at 1616, Anesthesia Intra-op, Routine Given 05/13/2020 3:52 PM EST 10 mg Given 05/13/2020 3:51 PM EST 5 mg glycopyrrolate (Robinul) (0.2 mg/mL) Given 05/13/2020 3:51 PM ES T 0.2 mg multi-dose injection Intravenous, PRN, Starting on Tue05/13/20 at 1551, Until Tue05/13/20 at 1616, Anesthesia Intra-op, Routine lactated ringers infusion New Bag 05/13/2020 3:06 PM EST Intravenous, CONTINUOUS PRN, Starting on Tue05/13/20 at 1506, Until Tue05/13/20 at 1616, Anesthesia Intra-op midazolam (pf) (Versed) (1 mg/mL) multi-dose Given 05/13/2020 3: 03 PM EST 2 mg injection Intravenous, PRN, Starting on Tue05/13/20 at 1503, Until Tue05/13/20 at 1616, Anesthesia Intra-op, Routine ondansetron (pf) (Zofran) (2 mg/mL) inje ction Given 05/13/2020 3:56 PM EST 4 mg Intravenous, PRN, Starting on Tue05/13/20 at 1556, Until Tue05/13/20 at 1616, Anesthesia Intra-op, Routine propofoL (Diprivan) 10 mg/mL bolus injection Given 3:11 PM EST 200 mg (Anesthesia) Intravenous, PRN, Starting on Tue05/13/20 at 1514, Until Tue05/13/20 at 1616, Anesthesia Intra-op rocuronium (Zemuron) (10 mg/mL) multi-dose Given 05/13/2020 3:11 PM EST 50 mg injection Intravenous, PRN, Starting on Tue05/13/20 at 1514, Until Tue05/13/20 at 1616, Anesthesia Intra-op, Routine sugammadex (Bridion) 100 mg/mL injection Given 05/13/2020 3:59 PM EST 200 mg Intravenous, PRN, Starting on Tue05/13/20 at 1559, Until Tue05/13/20 at 1616, Anesthesia Intra-op, Routine documented in this encounter Care Teams Rn Recruitment Relationship Specialty Start Date End Date Tara Joya MD PCP - General Family Medicine 05/16/[address] [address] documented as of this encounter
--- OUTSIDE RECORDS SUMMARY | 2021-10-21 07:59 | XMS_ITS | Encounter Summary ---
:1950 Author Organization [facility] [address] Care Team Providers Name Role Phone Tara Joya MD Primary Care Provider [phone] Reason for Visit Reason Comments IV Access hydration and antiemetics Treatment/Therapy Plan Authorization (Routine) - Closed Specialty Diagnoses / Procedures Referred By Contact Refer red To Contact Diagnoses Squamous cell carcinoma of ear, left Chemotherapy-induced nausea Ashok Ritchie MD [facility] Hem Onc Infusion [address] [place] [phone] Fax: Referral ID Status Reason Start Date Expiration Date Visits Requ ested Visits Authorized [id number] Closed 03/10/2020 03/10/2021 99 99 Encounter Details Date Type Department Care Team Description 05/22/2020 Infusion Hematology Oncology at [facility] uamous cell carcinoma of ear, left; [facility] Chemotherapy-induced nausea [address] [place] [phone] Social History Tobacco Use Types [...] Sign Reading Time Taken Comments Blood Pressure 132/70 05/22/2020 10:50 AM EST Pulse 102 05/22/2020 10:50 AM EST Temperature 36.6 ??C (97.8 ??F) 05/22/2020 10:50 AM EST Respiratory Rate 18 05/22/2020 10:50 AM EST Oxygen Saturation 99% 05/22/2020 10:50 AM EST Inhaled Oxygen Concentration - - Weight 68.9 kg (152 lb) 05/22/2020 10:50 AM EST Height 175.3 cm (5' 9.02) 05/22/2020 10:50 AM EST Body Mass Index 22.44 05/22/2020 10:50 AM EST documented in this encounter Progress Notes Leanne Lema RN - 05/22/2020 11:00 AM EST INFUSION THERAPY ADMINISTRATION NOTES DIAGNOSIS: Squamous cell cancer of the left ear REASON FOR VISIT: Hydration & Antiemetics SUBJECTIVE aWrd reports no complaints other than nausea. OBJECTIVE IV ACCESS: Mediport REACTIONS (DESCRIPTION, TIME, INTERVENTION AND EFFECTIVENESS) none ASSESSMENT Ward was awake, alert and tolerated treatment well. He did his tube feeding which was delivered by gravity over ~one hour. Nancy RYAN assisted him in cleaning his g-tube site which is slightly pink. He is aware to call if site is draining, reddened, warm or painful. PLAN Return to clinic per routine. documented in this encounter Plan of Treatment Upcoming Encounters Date Type Specialty Care Team Description 10/21/2021 Infusion Hematology and Oncology 11/09/2021 Office Visit Hematology and Oncology Alhaji Ritchie MD [facility] ONCOLOGY DEPT. [place], [place] [address] (Jin carson) 11/09/2021 Infusion Hematology and Oncology 12/10/2021 Office Visit Dermatology Silas Walters MD [address] [place] [address] DERMATOLOGY [place], [place] [address] (Jin carson) 09/19/2039 Hospital Encounter Surgery Osman Barnett MD [facility] OTOLARYNGOLOGY D EPT. [place], [place] [address] (Wo rk) Scheduled Procedures Name [...] Rate Site heparin (pf) (porcine) (100 Given 05/22/2020 12:20 PM EST 500 Un its units/mL) flush 5 mL syringe 500 Units 500 Units, Intravenous, ONCE PRN, Starting on Jessica 05/22/20 at 1035, Until Jessica 05/22/20 at 1429, Line Care, Refer to Intravenous (IV) Procedure: Accessing Implanted Vascular Access Devices (654) procedure and/or Intravenous (IV) Job Aid: Adult Flushing & Catheter Care (9306) job aid for additional information regarding guidelines and administration., Routine LORazepam (Ativan) tablet 0.5 mg Given 05/22/2020 11:18 AM EST 0.5 mg 0.5 mg, Oral, ONCE PRN, 1 dose, Starting on Jessica 05/22/20 at 1035, Until Jessica 05/22/20 at 1118, Nausea, Routine ondansetron (Zofran) tablet 16 mg Given 05/22/2020 11:18 AM EST 16 mg 16 mg, Oral, ONCE, 1 dose, On Jessica 05/22/20 at 1100, Routine sodium chloride 0.9 % (flush) flush 5-20 mL Given 05/22/2020 12:20 PM EST 20 mLs 5-20 mL, Intravenous, EVERY 1 MIN PRN, Starting on Jessica 05/22/20 at 1035, Until Jessica 05/22/20 at 1429, Line Care, Flush pertains to all indwelling lines. Flush per protocol found in the job aid using the link provided on this medication record. Refer to Intravenous (IV) Job Aid: Adult Flushing & Catheter Care (6955) job aid for additional information regarding guidelines and administration., Routine sodium chloride 0.9% infusion New Bag 05/22/2020 11:16 AM EST 1,000 mLs 1000 mL/hr 1,000 mL, at 1,000 mL/hr, Intravenous, CONTINUOUS, Starting on Jessica 05/22/20 at 1100, Until Jessica 05/22/20 at 1159 documented in this encounter Care Teams Store Host Relationship Specialty Start Date End Date Tara Joya MD PCP - General Family Medicine 05/16/[address] [place] [address] documented as of this encounter
--- OUTSIDE RECORDS SUMMARY | 2021-10-21 07:59 | XMS_ITS | Encounter Summary ---
:1950 Author Organization [employer] [place] [address] Care Team Providers Name Role Phone Tara Joya MD Primary Care Provider [phone] Encounter Details Date Type Department Care Team Description 05/12/2020 Office Visit Hematology/Oncology Ashok Ritchie Squa mous cell at [facility] carcinoma of ear, left [address] [place] [address] ONCOLOGY DEPT. [phone] [place], [place] [address] Social History Tobacco Use Types [...] Sign Reading Time Taken Comments Blood Pressure 132/67 05/12/2020 11:07 AM EST Pulse 64 05/12/2020 11:07 AM EST Temperature 36.7 ??C (98 ??F) 05/12/2020 11:07 AM EST Respiratory Rate 16 05/12/2020 11:07 AM EST Oxygen Saturation 100% 05/12/2020 11:07 AM EST Inhaled Oxygen Concentration - - Weight 69.7 kg (153 lb 9.6 oz) 05/12/2020 11:07 AM EST Height 176.5 cm (5' 9.49) 05/12/2020 11:07 AM EST Body Mass Index 22.37 05/12/2020 11:07 AM EST documented in this encounter Progress Notes Ashok Ritchie MD - 05/12/2020 11:00 AM EST Hematology/Oncology Clinic [facility] Patient Active Problem List Diagnosis ??? [...] with concurrent weekly cisplatin instituted 04/14/2020 ??? Squamous cell carcinoma, ear, left Added automatically from request for surgery [id number] ??? Lagophthalmos of left upper eyelid Added automatically from request for surgery [id number] ??? Encounter for venous access device care ??? Chemotherapy-induced nausea ??? Hearing loss Bilateral hearing aids prior to surgical loss of L ear 02/2020 ??? Mass of left ear Added automatically from request for surgery [id number] ??? Parotid mass Added automatically from request for surgery [id number] ??? History of basal cell carcinoma ??? [...] 76 mg 35 mg/m2/dose = 67 mg Med Onc checkup; due for chemo dose #5, and RT fraction #21. Nausea has not been as much of a problem in the past week. He has been using medical marijuana. We stopped the olanzapine because he wanted to go back on Abilify, which had been discontinued due to potential interactions. He continues however to have severe problems with dysgeusia and anorexia. He is really not able to get in any solid food; as soon as he gets it near his mouth he begins to gag. The taste of any sort offood is quite repulsive and makes it impossible for him to swallow. He is able to get down some liquids, and has been living on strawberry/banana shakes exclusively. He is able to get in some water buteven this tastes bad. We are in the process of setting him up for a G-tube which is going to be placed at the same operating room procedure as his left lower eyelid pexy, both scheduled now for tomorrow 05/13. He is getting increased skin irritation from the radiation, now has moved onto Aquaphor. Mucositis is moderate. He has had no neuropathy, ototoxicity, or other obvious side effects from the chemotherapy. His Mediport has been functioning fine. Bowels are slow but regular. Physical exam: He is in no acute distress. Voice is well phonated. Oral exam shows very mild erythema in the left pharynx and posterior buccal space. I see no obvious signs of candidiasis. Neck exam shows well-healed surgical grafts, with moist desquamation in the skin fold under the remnant left ear. Elsewhere there is grade 2 erythema over the skin of the neck graft, with moist desquamation lower down over the low neck and supraclavicular skin. No palpable adenopathy or masses. The lungs are clear Right chest Mediport is benign Cardiac exam is normal, with a grade 2 flow murmur across the precordium. Abdomen is benign, no hepatosplenomegaly or masses Extremities normal, no clubbing cyanosis or edema Neurologic exam is grossly normal, except for a worsening left lower eyelid ectropion; the upper lidis able to just barely cover the cornea. Reflexes 2+ Labs: Sodium stable at 135, potassium normal; BUN 26, creatinine 1.0. Nonfasting glucose 147. Magnesium stably low at 1.8. Hepatic enzymes normal, albumin 3.6. Today's white count is 6.09, hemoglobin 12.1, platelets 139. Impression: Squamous cell carcinoma of the skin of the left ear, status post complete surgical excision with high risk pathologic features. He is approximately two thirds of the way through adjuvant chemoradiotherapy. Physiologically he has been tolerating this well, but the damage to taste sensation has led to severe problems with oral intake and worsening malnutrition. Plan: Proceed with dose #5 chemotherapy with the same supportive care. Have been in touch with the [facility], and they have kindly made arrangements to have a G-tube put in when he comes for eyelidpexy tomorrow. He will be meeting with our cancer center dietitian today, and we will be prepared tostart tube feedings as soon as the tube is ready. Ashok Ritchie MD, FACP diesel engine mechanic apprentice Hematology/Oncology Section [facility]/[address] [address] Voice recognition software used for this note; please excuse customer support professional errors. I personally reviewed past medical, surgical, family medical histories, reviewed current medications, vital signs, labs, and performed full review of systems. These are documented below the narrative for clarity and succinctness. Outpatient Medications Marked as Taking for the 05/12/20 encounter (Office Visit) with Ashok Ritchie MD Medication Sig Dispense Refill ??? prochlorperazine (Compazine) 10 mg Tablet Take 1 tablet by mouth every 6 hours as needed for Nausea. 30 tablet 3 ??? white petrolatum-mineral oiL (Refresh-PM) Place 1 each into the left eye 2 times daily. 1 Tube 5 ??? ABILIFY 15 mg Tablet Take 15 [...] Review of systems is negative for other SENIOR APPLICATIONS ARCHITECT, bone, pulmonary, cardiac, GI, , extremity, neurologic, endocrine, skin, constitutional, emotional, or functional problems. Vitals Office Visit from 05/12/2020 in Hematology/Oncology at [facility] Weight 69.7 kg (153 lb 9.6 oz) Height 176.5 cm (5' 9.49) BSA (Calculated - sq m) 1.85 sq meters BMI (Calculated) 22.36 Temp 36.7 ??C (98 ??F) Temp src Temporal Heart Rate 64 Heart Rate Source Right, NIBP Resp 16 BP 132/67 BP Location Right arm Patient Position Sitting SpO2 100 % Karnofsky Score 60 Motor Neuropathy N/A Sensory Neuropathy N/A Body surface area is 1.85 meters squared. Wt Readings from Last 3 Encounters: 05/12/20 69.7 kg (153 lb 9.6 oz) 05/08/20 71.5 kg (157 lb 9.6 oz) 05/07/20 72.4 kg (159 lb 9.6 oz) No results found for this or any previous visit (from the past 72 hour(s)). ++++++++++++++++++++++++++++++++++++++++++++++++++++ documented in this encounter Plan of Treatment Upcoming Encounters Date Type Specialty Care Team Description 10/21/2021 Infusion Hematology and Oncology 11/09/2021 Office Visit Hematology and Oncology Alhaji Ritchie MD [facility] DR ONCOLOGY DEPT. [place], [place] [address] (Wo rk) 11/09/2021 Infusion Hematology and Oncology 12/10/2021 Office Visit Dermatology Silas Walters MD [address] [place] [address] RD DERMATOLOGY [place], [place] [address] (Wo rk) 09/19/2039 Hospital Encounter Surgery Osman Barnett MD [facility] OTOLARYNGOLOGY Sharlene EPT. [place], [place] [address] (Wo rk) Scheduled Procedures Name [...] left documented in this encounter Care Teams Machine Try Out Setter Relationship Specialty Start Date End Date Tara Joya MD PCP - General Family Medicine 05/16/[address] [place] [address] documented as of this encounter
--- OUTSIDE RECORDS SUMMARY | 2021-10-21 07:59 | XMS_ITS | Encounter Summary ---
:1950 [place] [address] Care Team Providers Name Role Phone Tara Joya MD Primary Care Provider [phone] Reason for Visit Reason Comments Chemotherapy Cycle 1 Day 43 Treatment/Therapy Plan Authorization (Routine) - Closed Specialty Diagnoses / Procedures Referred By Contact Refer red To Contact Diagnoses Squamous cell carcinoma of ear, left Chemotherapy-induced nausea Ashok Ritchie MD [facility] Hem Onc Infusion [address] [place] [phone] Fax: Referral ID Status Reason Start Date Expiration Date Visits Requ ested Visits Authorized [id number] Closed 03/10/2020 03/10/2021 99 99 Encounter Details Date Type Department Care Team Description 05/26/2020 Infusion Hematology Oncology at [facility] emotherapy-induced nausea; [facility] Squamous cell carcinoma of e ar, left [address] [place] [phone] Social History Tobacco Use Types Packs/Day Years Used Date Former Smoker Cigarettes 1 40 Quit: 01/09/20 03 Smokeless Tobacco: Never Used Alcohol Use Standard Drinks/Week Comments No 0 (1 standard drink = 0.6 oz pure alcoho l) Sex Assigned at Date Recorded Not on file documented as of this encounter Progress Notes Molly Valentin RN - 05/26/2020 12:00 PM EST INFUSION THERAPY ADMINISTRATION NOTES DIAGNOSIS: Basal cell carcinoma of the ear CYCLE #: Cycle 1, Day 43 - Cisplatin REASON FOR VISIT: To receive [...] per patient's height, weight and BSA by MOLLY VALENTIN RN and Christine Quintanilla [facility]. REACTIONS (DESCRIPTION, TIME, INTERVENTION AND [...] Hematology and Oncology Alhaji Ritchie MD [facility] ONCOLOGY DEPT. [place], [place] [address] (Jin carson) 11/09/2021 Infusion Hematology and Oncology 12/10/2021 Office Visit Dermatology Silas Walters MD [address] [place] [address] DERMATOLOGY [place], [place] [address] (Jin carson) 09/19/2039 Hospital Encounter Surgery Osman Barnett MD [facility] OTOLARYNGOLOGY D EPT. [place], [place] [address] (Jin carson) Scheduled Procedures Name [...] Dose Rate Site aprepitant (CINVANTI) injection Given 05/26/2020 12:36 PM EST 13 0 mg Emul 130 mg 130 mg, Intravenous, ONCE, 1 dose, On Tue05/26/20 at 1230, Alternative administration of IV push over 2 minutes is a recommendation from the entry engineer. Administer prior to chemotherapy., Routine CISplatin (Platinol) 67 mg in sodium New Bag 05/26/2020 2:16 P M EST 67 mg 317 mL/hr chloride 0.9% 317 mL infusion 67 mg (rounded from 66.85 mg = 35 mg/m2/dose ? 1.91 m2 Treatment Plan BSA from Recorded weight), Intravenous, ONCE, 1 dose, On Tue05/26/20 at 1330, Administer over 60 Minutes, Warning Vesicant/Irritant Medication dexamethasone (Decadron) tablet 10 mg Given 05/26/2020 12:36 PM EST 10 mg 10 mg, Oral, ONCE, 1 dose, On Tue05/26/20 at 1230, Administer prior to chemotherapy, Routine heparin (pf) (porcine) (100 units/mL) Given 05/26/2020 3:[address] 500 Units flush 5 mL syringe 500 Units 500 Units, Intravenous, ONCE PRN, Starting on Tue05/26/20 at 1213, Until Tue05/26/20 at 1815, Line Care, Refer to Intravenous (IV) Procedure: Accessing Implanted Vascular Access Devices (494) procedure and/or Intravenous (IV) Job Aid: Adult Flushing & Catheter Care (6673) job aid for additional information regarding guidelines and administration., Routine palonosetron (Aloxi) (0.25 mg/mL) injection Given 10/2020 12:36 PM EST 0.25 mg 0.25 mg 0.25 mg, Intravenous, ONCE, 1 dose, On Tue05/26/20 at 1230, Administer over 30 seconds. Administer prior to chemotherapy, Routine sodium chloride 0.9 % (flush) flush 5-20 mL Given 05/26/2020 3:19 PM EST 20 mLs 5-20 mL, Intravenous, EVERY 1 MIN PRN, Starting on Tue05/26/20 at 1213, Until Tue05/26/20 at 1815, Line Care, Flush pertains to all indwelling lines. Flush per protocol found in the job aid using the link provided on this medication record. Refer to Intravenous (IV) Job Aid: Adult Flushing & Catheter Care (9367) job aid for additional information regarding guidelines and administration., Routine sodium chloride 0.9% infusion New Bag 05/26/2020 12:41 PM EST 1,000 mLs 1000 mL/hr 1,000 mL, at 1,000 mL/hr, Intravenous, CONTINUOUS, Starting on Tue05/26/20 at 1230, Until Tue05/26/20 at 1329, Pre-CISplatin sodium chloride 0.9% infusion New Bag 05/26/2020 2:18 PM EST 500 mLs 500 mL/hr 500 mL, at 500 mL/hr, Intravenous, CONTINUOUS, Starting on Tue05/26/20 at 1430, Until Tue05/26/20 at 1529, Post CISplatin documented in this encounter Care Teams Sole Conforming Machine Operator Relationship Specialty Start Date End Date Tara Joya MD PCP - General Family Medicine 05/16/[address] [address] documented as of this encounter
--- OUTSIDE RECORDS SUMMARY | 2021-10-21 07:59 | XMS_ITS | Encounter Summary ---
:1950 [place] [address] Care Team Providers Name Role Phone Tara Joya MD Primary Care Provider [phone] Encounter Details Date Type Department Care Team Description 05/22/2020 Telephone Wound Care at [facility] [place] [phone] Social History Tobacco Use Types Packs/Day Years Used Date Former Smoker Cigarettes 1 40 Quit: 01/09/20 03 Smokeless Tobacco: Never Used Alcohol Use Standard Drinks/Week Comments No 0 (1 standard drink = 0.6 oz pure alcoho l) Sex Assigned at Date Recorded Not on file documented as of this encounter Miscellaneous Notes Telephone Encounter - Jenn Negron RN - 05/22/2020 12:02 PM EST director of hotel Phone Note: I received a call from Nancy Agee RN in [facility] Oncology clinic working with Dr. Ritchie. She is following this pt and had a G tube question. Pt had a PEG Tube placed in the OR on 05/[address] Wood. He was seen by Dr. Galdamez, Radiation Oncologist on 05/19 in [facility] had thought to have a cellulitis around the tube site and started pt on Clindamycin. Nancy copied me on a secure chat and sent a picture on this of pt's tube. The area of erythema, previously outlined, has improved and pt currently has some erythema under the external bolster that is likely more moisture related from the bolster sitting on his skin. Dr Galdamez thinks and Nancy agrees that the bolster now seems too snug. Shewondered if this was something she could take care there in her [place] talked [place] what to do and she felt confident doing this. She will move the bolster enough to relieve the snugness and pressure from bolster on the skin. She sent me a picture once complete and secure ties back in place. All looks well and I thanked her for doing this as ongoing pressure from the external and internal bolster is deleterious to skin and gastric mucosa. They will contact us if any further issues with G tube. documented in this encounter Plan of Treatment Upcoming Encounters Date Type Specialty Care Team Description 10/21/2021 Infusion Hematology and Oncology 11/09/2021 Office Visit Hematology and Oncology Alhaji Ritchie MD [facility] DR ONCOLOGY DEPT. [place], [place] [address] (Jin carson) 11/09/2021 Infusion Hematology and Oncology 12/10/2021 Office Visit Dermatology Silas Walters MD [address] [place] [address] DERMATOLOGY [place], [place] [address] (Jin carson) 09/19/2039 Hospital Encounter Surgery Osman Barnett MD [facility] OTOLARYNGOLOGY D EPT. [place], [place] [address] (Jin carson) Scheduled Procedures Name [...] on filedocumented in this encounter Care Teams Co Pilot Relationship Specialty Start Date End Date Tara Joya MD PCP - General Family Medicine 05/16/[address] [place] [address] documented as of this encounter
--- OUTSIDE RECORDS SUMMARY | 2021-10-21 07:59 | XMS_ITS | Encounter Summary ---
:1950 Author Organization [facility] [place] [address] Care Team Providers Name Role Phone Tara Joya MD Primary Care Provider [phone] Reason for Visit Reason Onset Date Comments Other 05/22/2020 gtube Encounter Details Date Type Department Care Team Description 05/22/2020 Telephone Hematology/Oncology at Nancy Lucas RN Other (gtube) [address] [phone] Social History Tobacco Use Types Packs/Day Years Used Date Former Smoker Cigarettes 1 40 Quit: 01/09/20 03 Smokeless Tobacco: Never Used Alcohol Use Standard Drinks/Week Comments No 0 (1 standard drink = 0.6 oz pure alcoho l) Sex Assigned at Date Recorded Not on file documented as of this encounter Miscellaneous Notes Telephone Encounter - Nancy Agee RN - 05/22/2020 2:15 PM EST Pt came in for hydration today. Assessed g-tube site as there was concerned for infection and pt mayneed to be seen by surgery. Area around gtube was marked with black pen where it had been reddened. The redness was gone except for under outer barrier shield of gtube. It was red with some whitish material probably tube feedings residue. Tube was right up against outer stomach wall tightly. Pt had nopain except when lying on left side. He was tolerating tube feed well and had gained 3 lbs per .Sent picture to Dr. Ritchie and Sade Negron broker in charge nurse. She states outer barrier can be moved up, directed me over phone. And then pt can use ointment like desitin and then drainage sponge. Pt to use d esitin till redness gone and drainage sponge till area healed. Reviewed with who agrees with plan. Pt is also to wash are daily with warm water and can use soap if needed. Are was cleaned with normal saline and harden drainage or brownish/ red color came off easily. Able to move outer barrier up with out issue. Will look at site again Tuesdaymay [address] Ritchie. documented in this encounter Plan of Treatment Upcoming Encounters Date Type Specialty Care Team Description 10/21/2021 Infusion Hematology and Oncology 11/09/2021 Office Visit Hematology and Oncology Alhaji Ritchie MD [facility] DR ONCOLOGY DEPT. [place], [place] [address] (Wo rk) 11/09/2021 Infusion Hematology and Oncology 12/10/2021 Office Visit Dermatology Silas Walters MD [address] [place] [address] RD DERMATOLOGY [place], [place] 03 [facility] [phone] (Wo rk) 09/19/2039 Hospital Encounter Surgery Osman Barnett MD [facility] OTOLARYNGOLOGY D EPT. [place], [place] [address] (Wo rk) Scheduled Procedures Name [...] on filedocumented in this encounter Care Teams Digital Traffic Coordinator Relationship Specialty Start Date End Date Tara Joya MD PCP - General Family Medicine 05/16/[address] [place] [address] documented as of this encounter
--- OUTSIDE RECORDS SUMMARY | 2021-10-21 07:59 | XMS_ITS | Encounter Summary ---
:1950 Author Organization [facility] [place] [address] Care Team Providers Name Role Phone Tara Joya MD Primary Care Provider [phone] Reason for Visit Reason Comments IV Medication hydration & antiemetics Treatment/Therapy Plan Authorization (Routine) - Closed Specialty Diagnoses / Procedures Referred By Contact Refer red To Contact Diagnoses Squamous cell carcinoma of ear, left Chemotherapy-induced nausea Ashok Ritchie MD [facility] Hem Onc Infusion [address] [place] [phone] Fax: Referral ID Status Reason Start Date Expiration Date Visits Requ ested Visits Authorized [id number] Closed 03/10/2020 03/10/2021 99 99 Encounter Details Date Type Department Care Team Description 05/01/2020 Infusion Hematology Oncology at [facility] emotherapy-induced nausea; [facility] Squamous cell carcinoma of e ar, left [address] [place] [phone] Social History Tobacco Use Types [...] Sign Reading Time Taken Comments Blood Pressure 130/72 05/01/2020 11:23 AM EST Pulse 92 05/01/2020 11:23 AM EST Temperature 36.9 ??C (98.4 ??F) 05/01/2020 11:23 AM EST Respiratory Rate 16 05/01/2020 11:23 AM EST Oxygen Saturation 99% 05/01/2020 11:23 AM EST Inhaled Oxygen Concentration - - Weight - - Height - - Body Mass Index - - documented in this encounter Progress Notes Leanne Lema RN - 05/01/2020 11:00 AM EST INFUSION THERAPY ADMINISTRATION NOTES DIAGNOSIS: Squamous cell cancer of the left ear REASON FOR VISIT: Hydration & Antiemetics SUBJECTIVE Ward reports that he feels okay, reports some nausea. OBJECTIVE IV ACCESS: Mediport REACTIONS (DESCRIPTION, TIME, INTERVENTION AND EFFECTIVENESS) none ASSESSMENT Ward was awake, alert and tolerated treatment well. PLAN Return to clinic per routine. documented in this encounter Plan of Treatment Upcoming Encounters Date Type Specialty Care Team Description 10/21/2021 Infusion Hematology and Oncology 11/09/2021 Office Visit Hematology and Oncology Alhaji Ritchie MD [facility] DR ONCOLOGY DEPT. [place], [place] [address] (Jin carson) 11/09/2021 Infusion Hematology and Oncology 12/10/2021 Office Visit Dermatology Silas Walters MD [address] [place] [address] DERMATOLOGY [place], [place] [address] (Jin carson) 09/19/2039 Hospital Encounter Surgery Osman Barnett MD [facility] OTOLARYNGOLOGY D EPT. [place], [place] [address] (Jin carson) Scheduled Procedures Name [...] Dose Rate Site aprepitant (CINVANTI) injection Given 05/01/2020 11:39 AM EST 13 0 mg Emul 130 mg 130 mg, Intravenous, ONCE, 1 dose, On Jessica 05/01/20 at 1130, Alternative administration of IV push over 2 minutes is a recommendation from the high school drafting teacher., Routine dexamethasone (Decadron) injection 5.2 m g Given 05/01/2020 11:43 AM EST 5.2 mg 5.2 mg (rounded from 5 mg), Intravenous, ONCE, 1 dose, On Jessica 05/01/20 at 1130 heparin (pf) (porcine) (100 units/mL) Given 05/01/2020 12:18 PM EST 500 Units flush 5 mL syringe 500 Units 500 Units, Intravenous, ONCE PRN, Starting on Jessica 05/01/20 at 1103, Until Jessica 05/01/20 at 1426, Line Care, Refer to Intravenous (IV) Procedure: Accessing Implanted Vascular Access Devices (084) procedure and/or Intravenous (IV) Job Aid: Adult Flushing & Catheter Care (5982) job aid for additional information regarding guidelines and administration., Routine ondansetron (Zofran) tablet 16 mg Given 05/01/2020 11:38 AM EST 16 mg 16 mg, Oral, ONCE, 1 dose, On Jessica 05/01/20 at 1130, Routine sodium chloride 0.9 % (flush) flush 5-20 mL Given 05/01/2020 12:17 PM EST 20 mLs 5-20 mL, Intravenous, EVERY 1 MIN PRN, Starting on Jessica 05/01/20 at 1103, Until Jessica 05/01/20 at 1426, Line Care, Flush pertains to all indwelling lines. Flush per protocol found in the job aid using the link provided on this medication record. Refer to Intravenous (IV) Job Aid: Adult Flushing & Catheter Care (0156) job aid for additional information regarding guidelines and administration., Routine sodium chloride 0.9% infusion New Bag 05/01/2020 11:16 AM EST 1,000 mLs 1000 mL/hr 1,000 mL, at 1,000 mL/hr, Intravenous, CONTINUOUS, Starting on Jessica 05/01/20 at 1130, Until Jessica 05/01/20 at 1229 documented in this encounter Care Teams Dehydrator Relationship Specialty Start Date End Date Tara Joya MD PCP - General Family Medicine 05/16/[address] [place] [address] documented as of this encounter
--- OUTSIDE RECORDS SUMMARY | 2021-10-21 07:59 | XMS_ITS | Encounter Summary ---
:1950 Author Organization [facility] [place] [address] Care Team Providers Name Role Phone Tara Joya MD Primary Care Provider [phone] Reason for Visit Reason Comments Other Hydration IV Medication Antiemetics Treatment/Therapy Plan Authorization (Routine) - Closed Specialty Diagnoses / Procedures Referred By Contact Refer red To Contact Diagnoses Squamous cell carcinoma of ear, left Chemotherapy-induced nausea Ashok Ritchie MD [facility] Hem Onc Infusion [address] [place] [phone] Fax: Referral ID Status Reason Start Date Expiration Date Visits Requ ested Visits Authorized [id number] Closed 03/10/2020 03/10/2021 99 99 Encounter Details Date Type Department Care Team Description 05/15/2020 Infusion Hematology Oncology at [facility] emotherapy-induced nausea; [facility] Squamous cell carcinoma of e ar, left [address] [place] [phone] Social History Tobacco Use Types Packs/Day Years Used Date Former Smoker Cigarettes 1 40 Quit: 01/09/20 03 Smokeless Tobacco: Never Used Alcohol Use Standard Drinks/Week Comments No 0 (1 standard drink = 0.6 oz pure alcoho l) Sex Assigned at Date Recorded Not on file documented as of this encounter Progress Notes Eboni Paz RN - 05/15/2020 11:00 AM EST INFUSION THERAPY ADMINISTRATION NOTES DIAGNOSIS: Squamous cell cancer of the left ear REASON FOR VISIT: Hydration & Antiemetics SUBJECTIVE Ward reports that he feels rough today. OBJECTIVE IV ACCESS: Mediport REACTIONS (DESCRIPTION, TIME, INTERVENTION AND EFFECTIVENESS) none ASSESSMENT Ward was awake, alert and tolerated treatment well. Ward's spouse Nika, set up his tube feeding which was delivered by gravity over one hour. PLAN Return to clinic per routine. documented in this encounter Plan of Treatment Upcoming Encounters Date Type Specialty Care Team Description 10/21/2021 Infusion Hematology and Oncology 11/09/2021 Office Visit Hematology and Oncology Alhaji Ritchie MD [facility] DR ONCOLOGY DEPT. [place], [place] [address] (Wo rk) 11/09/2021 Infusion Hematology and Oncology 12/10/2021 Office Visit Dermatology Silas Walters MD [address] [place] [address] DERMATOLOGY [place], [place] [address] (Wo rk) 09/19/2039 Hospital Encounter Surgery Osman Barnett MD [facility] OTOLARYNGOLOGY D EPT. [place], [place] [address] (Wo rk) Scheduled Procedures Name [...] Dose Rate Site aprepitant (CINVANTI) injection Given 05/15/2020 11:18 AM EST 13 0 mg Emul 130 mg 130 mg, Intravenous, ONCE, 1 dose, On Jessica 05/15/20 at 1115, Alternative administration of IV push over 2 minutes is a recommendation from the air plant engineer., Routine dexamethasone (Decadron) injection 5.2 m g Given 05/15/2020 11:18 AM EST 5.2 mg 5.2 mg (rounded from 5 mg), Intravenous, ONCE, 1 dose, On Jessica 05/15/20 at 1115 heparin (pf) (porcine) (100 units/mL) Given 05/15/2020 12:17 PM EST 500 Units flush 5 mL syringe 500 Units 500 Units, Intravenous, ONCE PRN, Starting on Jessica 05/15/20 at 1048, Until Jessica 05/15/20 at 1431, Line Care, Refer to Intravenous (IV) Procedure: Accessing Implanted Vascular Access Devices (654) procedure and/or Intravenous (IV) Job Aid: Adult Flushing & Catheter Care (1961) job aid for additional information regarding guidelines and administration., Routine ondansetron (Zofran) 16 mg in New Bag 05/15/2020 11:24 AM EST 16 m g 232 mL/hr sodium chloride 0.9% 58 mL infusion 16 mg 16 mg, Intravenous, ONCE, 1 dose, On Jessica 05/15/20 at 1115, Administer over 15 Minutes sodium chloride 0.9 % (flush) flush 5-20 mL Given 05/15/2020 12:17 PM EST 20 mLs 5-20 mL, Intravenous, EVERY 1 MIN PRN, Starting on Jessica 05/15/20 at 1048, Until Jessica 05/15/20 at 1431, Line Care, Flush pertains to all indwelling lines. Flush per protocol found in the job aid using the link provided on this medication record. Refer to Intravenous (IV) Job Aid: Adult Flushing & Catheter Care (7672) job aid for additional information regarding guidelines and administration., Routine sodium chloride 0.9% infusion New Bag 05/15/2020 11:15 AM EST 1,000 mLs 1000 mL/hr 1,000 mL, at 1,000 mL/hr, Intravenous, CONTINUOUS, Starting on Jessica 05/15/20 at 1115, Until Jessica 05/15/20 at 1214 documented in this encounter Care Teams Marketing Development Manager Relationship Specialty Start Date End Date Tara Joya MD PCP - General Family Medicine 05/16/[address] [place] [address] documented as of this encounter
--- OUTSIDE RECORDS SUMMARY | 2021-10-21 07:59 | XMS_ITS | Encounter Summary ---
:1950 Author Organization [facility] [address] Care Team Providers Name Role Phone Tara Joya MD Primary Care Provider [phone] Reason for Visit Reason Comments IV Access Port access for SIM Encounter Details Date Type Department Care Team Description 05/07/2020 Infusion Hematology Oncology at [facility] uamous cell carcinoma of [facility] ear, left [address] [place] [address] Drive [place] [phone] Social History Tobacco Use Types Packs/Day Years Used Date Former Smoker Cigarettes 1 40 Quit: 01/09/20 03 Smokeless Tobacco: Never Used Alcohol Use Standard Drinks/Week Comments No 0 (1 standard drink = 0.6 oz pure alcoho l) Sex Assigned at Date Recorded Not on file documented as of this encounter Progress Notes Francesca Wilson RN - 05/07/2020 11:30 AM EST INFUSION THERAPY ADMINISTRATION NOTES TIME TREATMENT STARTED: 1200 TIME TREATMENT ENDED: 1410 DIAGNOSIS: Head and Neck cancer REASON FOR VISIT: Mediport access for SIM IV ACCESS: Mediport GAUGE: 19G BLOOD RETURN: yes ANY S/S OF INFECTION/EXTRAVASATIONS: no signs of IV complications observed IV FLUSHED WITH: 20cc NS and 500 units Heparin at 1410 IV DISCONTINUED: yes ASSESSMENT: Patient tolerated treatment well. PLAN: Return to clinic per routine. documented in this encounter Plan of Treatment Upcoming Encounters Date Type Specialty Care Team Description 10/21/2021 Infusion Hematology and Oncology 11/09/2021 Office Visit Hematology and Oncology Alhaji Ritchie MD [facility] [address] ONCOLOGY DEPT. [place], [place] [address] (Wo rk) 11/09/2021 Infusion Hematology and Oncology 12/10/2021 Office Visit Dermatology Silas Walters MD [address] DERMATOLOGY [place], [place] [address] (Wo rk) 09/19/2039 Hospital Encounter Surgery Osman Barnett MD [facility] OTOLARYNGOLOGY D EPT. [place], [place] [address] (Wo rk) Scheduled Procedures Name [...] left documented in this encounter Care Teams Stone Engraver Relationship Specialty Start Date End Date Tara Joya MD PCP - General Family Medicine 05/16/[address] [place] [address] documented as of this encounter
--- OUTSIDE RECORDS SUMMARY | 2021-10-21 08:00 | XMS_ITS | Encounter Summary ---
:1950 Author Organization [facility] [place] [address] Care Team Providers Name Role Phone Tara Joya MD Primary Care Provider [phone] Reason for Visit Auth/Cert Specialty Diagnoses / Procedures Referred By Contact Refer red To Contact Diagnoses Squamous cell carcinoma of ear, left Procedures VENOUS ACCESS PLACEMENT Referral ID Status Reason Start Date Expiration Date Visits Requ ested Visits Authorized [id number] 1 1 Encounter Details Date Type Department Care Team Description 04/08/2020 Anesthesia Event [facility] Zaki Sahu MD [facility] [place] [address] [facility] Darius Kang MD [facility] [place] [address] [place] [phone] Anesthesia Record Procedure Summary Procedure Name Responsible Anesthesia Start Anesthesia Stop Time Anesthesiologist Time VENOUS ACCESS Zaki Devi MD 04/08/20 1510 04/08/20 1710 PLACEMENT (N/A ) Events Date Time Event Comment 04/08/2020 1444 1510 AN Verify 1510 Start 1510 An Start Data 1526 An Induction 1529 An Intubation 1531 Anesthesia Ready 1603 Procedure Start 1656 Extubation/LMA Out 1702 an stop data 1710 Recovery or ICU Handoff Patient care was transferred to the destination unit staff after review of the patient's medica l history, current anesthetic/surgi camilo status and plan, according to the Provider Handoff Checklist. 1710 Stop Name Total IV Lidocaine 80 mg Propofol 200 mg Rocuronium 25 mg PHENYLephrine 1,120 mcg ePHEDrine 10 mg Ondansetron 4 mg Dexamethasone 8 mg Neostigmine 2 mg Glycopyrrolate 0.4 mg Succinylcholine 100 mg ceFAZolin 2 g lactated ringers infusion 800 mL Agents Name O2 Air N2O Sevoflurane (et) Blood No blood administrations on file. Lines, Drains, and Airways Type Details Placement Removal Incision 02/20/20; ear (POST 02/20/20 0000 by AURICULAR TEMPORAL BONE) Gina Mora RN Incision 02/20/20; neck 02/20/20 0000 by Gina Mora RN Incision 02/20/20; 1657; chest 02/20/20 1657 by [...] Peralta RN non-laparascopic puncture; Mediport pocket site PIV 02/22/20; 1812; cephalic 02/22/20 1812 by 1445 by vein (lateral side of Lisha Cervantes Morton, Carissa M, arm), left; CONNOR RYAN [id number] catheter system; 22 gauge, 1 in length, 3/4 in length; [place] [facility]-; intradermal injection, tolerated well, appears comfortable; 0; 05/12/20; 1445 PIV 04/08/20; 1229; median 04/08/20 1229 by 05/12/20 1445 by vein (underside of arm), Moya, Kelli E, RN Mor ton, Sravani M, right; [id number] RN catheter system; 22 gauge, 3/4 in length; Vida Ayala,CONNOR; intradermal injection, distraction, tolerated well; 1; Location1: (select this item first), median vein (underside of arm), right; 05/12/20; 1445 ETT Mask Ventilation: Not 04/08/20 1529 by 04/08/20 1656 by Attempted (0); ETT Type: Kandy iFtzpatrick, KHALIF Che sKandy, Cuffed, Oral; ETT Size: VICE PRESIDENT OF FINANCE 7.5 mm; Indirect:Video; Notes: Asleep, Pre-O2, Stylette; Attempts: 1; Laryngoscopy Grade: 1; ETT Placement Verified By: Auscultation, Capnometry, Visual; Secured at Teeth: 23 cm; Inserted by: Kandy Fitzpatrick CRNA Implanted Port - 04/08/20; 1711; 04/08/20 1711 by 05/13/20 1346 by Single Lumen infraclavicular fossa, Marion Peralta, Kylie Kelly, (non-apheresis) right; power injectable RN port; superior vena cava; Arcenio Escobar, SODA DISPENSER ; [address] port ; LDA not present upon assessment; 05/13/20; 1346 documented in this encounter Social History Tobacco Use Types Packs/Day Years Used Date Former Smoker Cigarettes 1 40 Quit: 01/09/20 03 Smokeless Tobacco: Never Used Alcohol Use Standard Drinks/Week Comments No 0 (1 standard drink = 0.6 oz pure alcoho l) Sex Assigned at Date Recorded Not on file documented as of this encounter OR Notes Anesthesia Postprocedure Evaluation - Zaki Devi MD - 04/08/2020 6:35 PM EST Department of Anesthesiology Post-procedure Note Patient: Ward Santamaria Procedure Summary Date: 04/08/20 Room / Location: [facility] INTERVENTIONAL RADIOLOGY / [facility] Anesthesia Start: 151 Anesthesia Stop: 1709 Procedure: VENOUS ACCESS PLACEMENT (N/A ) Diagnosis: (Squamous cell carcinoma of ear, left) Surgeon: Steve Montgomery MD Responsible Provider: Zaki Devi MD Anesthesia Type: general ASA Status: 3 All Anesthesia Providers: Anesthesiologist: Alcides Reyes MD; Zaki Devi MD VICE PRESIDENT OF FINANCE: Kandy Fitzpatrick CRNA Vitals Value Taken Time BP 132/71 04/08/20 1800 Temp Pulse 68 04/08/20 1710 Resp 16 04/08/20 1745 SpO2 96 % 04/08/20 1810 Pain Level Vitals shown include unvalidated device data. Patient Location: PACU/[facility] Level of Consciousness: Awake and Alert Pain Management: Satisfactory Analgesia PONV: None Cardiovascular Status: Hemodynamically Stable Respiratory Status: Stable Respiratory Status Postoperative Fluid Status: Possible Anesthetic Complications: NONE apparent at time of evaluation Final Primary Anesthesia Type: General (The anesthetic type performed was the same as planned.) Comments: Anesthesia Preprocedure Evaluation - Alcides Reyes MD - 04/07/2020 7:39 PM EST Pre-Anesthesia Evaluation for: Ward Santamaria a 69 y.o. male. Procedure(s): VENOUS ACCESS PLACEMENT Patient Active Problem List Diagnosis ??? Hearing loss Bilateral hearing aids prior [...] involved, EDILBERTO(+) D. Adjuvant radiation with concurrent cisplatin anticipated 03/2020 ??? Mass of left ear Added automatically from request for surgery [id number] ??? Parotid mass Added automatically from request for surgery [id number] ??? History of basal cell carcinoma ??? [...] Past Surgical History: Procedure Laterality Date ??? KIDNEY STONE SURGERY ??? PRG SOMATOSENSORY TEST, ANY/ALL PER. NERVES, TRUNK OR HEAD N/A 02/20/2020 FACIAL NERVE MONITORING, SETUP PERIPHERAL (WRVU 0.54) performed by Osman Barnett MD at [facility] MAIN OR ??? PRO ADJ TISS TRANSFER/REARRANGEMENT ANY AREA 30.1-60 SQCM Left 02/20/2020 ADJACENT TISSUE TRANSFER OR REARRANGEMENT; 30.1 TO 60.0 SQ CM, THORAX (WRVU 12.65) performed by Osman Barnett MD at [facility] MAIN OR ??? PRO ADJ TISS TRANSFER/REARRANGEMENT ANY AREA EA ADDL 30SQCM Left 02/20/2020 ADJACENT TISSUE TRANSFER OR REARRANGEMENT; EA ADD'L 30.0 SQ CM, OR PART OF (WRVU 3.73) performed byOsman Barnett MD at [facility] MAIN OR ??? PRO COLONOSCOPY, REMV LESN, SNARE N/A 07/07/2015 COLONOSCOPY, POLYPECTOMY, REMOVAL LESION BY SNARE performed by Jose Manuel Heller MD at [facility] ENDOSCOPY ??? PRO EXC PAROTD, TOTAL, DISSECT 5TH NERV Left 02/20/2020 EXCISION OF PAROTID TUMOR OR PAROTID GLAND, TOTAL, WITH DISSECTION AND PRESERVATION OF FACIAL NERVE(WRVU 19.53) performed by Osman Barnett MD at [facility] MAIN OR ??? PRO EXC SKIN MALIG 3.1-4CM FACE, FACIAL Left 02/20/2020 EXC MALIGNANT LESION, 3.1 TO 4.0CM, FACE (WRVU 4.34) performed by Osman Barnett MD at [facility] MAIN OR ? ? PRO EXC SKIN MALIG >4CM FACE, FACIAL Left 02/20/2020 EXC MALIGNANT LESION, >4.0CM, EARS (WRVU 6.26) performed by Osman Barnett MD at [facility] [place]ES[place] ??? PRO MICROSURG TECHNIQUES, REQ OPER MICROSCOPE N/A 02/20/2020 MICROSCOPE USE (WRVU 3.46) performed by Neo Gilman MD at [facility] MAIN OR ??? PRO MUSCLE-SKIN FLAP, TRUNK Left 02/20/2020 FLAP, MYOCUTANEOUS OR FASCIOCUTANEOUS, TRUNK (WRVU 19.86) performed by Osman Barnett MD at [facility] MAIN OR ??? PRO REMOVAL NODES, NECK, CERV MOD RAD Left 02/20/2020 @CERVICAL LYMPHADENECTOMY (MODIFIED RADICAL NECK DISSECTION) (WRVU 23.95) performed by Osman Barnett MD at [facility] MAIN OR ??? PRO RESECT TEMPORAL BONE, FRUIT WASHER APPRCH Left 02/20/2020 @RESECTION TEMPORAL BONE, EXTERNAL APPROACH (WRVU 37.42) performed by Neo Gilman MD at [facility] [place] Social History Tobacco Use ??? Smoking status: Former Smoker Packs/day: 1.00 Years: 40.00 Pack years: 40.00 Types: Cigarettes Quit date: 01/08/2003 Years since quittin.2 ??? Smokeless tobacco: Never Used Substance Use Topics ??? Alcohol use: No Social History Substance and Sexual Activity Drug Use No Allergies Allergen Reactions ??? Penicillins rash ??? Codeine Phosphate Rash Medications: MAR and/or home medications have been reviewed. Physical Exam: No data found. There is no height or weight on file to calculate BMI. Airway Assessment: Mallampati: II TM distance: >3 FB Neck ROM: full Cardiovascular Assessment: Rhythm: regular Rate: normal Pulmonary Assessment: unlabored breathing Dental Assessment: - normal exam Misc Assessment: Anesthesia Plan: ASA 3 general, with a(n) intravenous induction 69 y.o. male with recently diagnosed SCC of left parotid presenting for port placement. PMH significant for CAD (stent in 2000), bipolar disorder, treated hep C. Prior mask w/adjunct, grade 2 w/Mac blade. Lab Results Component Value Date HGB 11.0 (L) 02/23/2020 PLATELET 181 02/23/2020 INR 1.0 02/07/2020 NA 135 02/23/2020 K 3.8 02/23/2020 CREATININE 0.65 (L) 02/23/2020 02/20/20 1735 ABORH A Pos Allergies: -- Penicillins -- rash -- Codeine Phosphate -- Rash NPO Status: Appropriate Anesthetic Plan: GETA Senior Market Research Analyst Patient seen and examined. Requests to be asleep. Will proceed with GA. Region - Other Informed Consent: Anesthetic plan and risks discussed with patient. Plan discussed with resident. PAT Clinic Note documented in this encounter Plan of Treatment Upcoming Encounters Date Type Specialty Care Team Description 10/21/2021 Infusion Hematology and Oncology 11/09/2021 Office Visit Hematology and Oncology Alhaji Ritchie MD [facility] DR ONCOLOGY DEPT. [place], [place] [address] (Wo rk) 11/09/2021 Infusion Hematology and Oncology 12/10/2021 Office Visit Dermatology Silas Walters MD [address] [facility] DERMATOLOGY [place], [place] [address] (Wo rk) 09/19/2039 Hospital Encounter Surgery Osman Barnett MD [facility] OTOLARYNGOLOGY D EPT. [place], [place] [address] (Wo rk) Scheduled Procedures Name [...] MAR Action Action Date Dose Rate Site ceFAZolin (Ancef) 1 g in dextrose 5% Given 04/08/2020 3:42 PM ES T 2 g 50 mL infusion PRN, Starting on Tue04/08/20 at 1531, Until Tue04/08/20 at 1801, Administer over 30 Minutes, Anesthesia Intra-op dexamethasone (Decadron) injection Given 04/08/2020 4:02 PM EST 8 mg PRN, Starting on Tue04/08/20 at 1602, Until Tue04/08/20 at 1801, Anesthesia Intra-op, Routine ePHEDrine (pf) (5 mg/mL) multi-dose inje ction Given 04/08/2020 3:49 PM EST 10 mg PRN, Starting on Tue04/08/20 at 1549, Until Tue04/08/20 at 1801, Anesthesia Intra-op, Routine glycopyrrolate (Robinul) (0.2 mg/mL) Given 04/08/2020 4:42 PM ES T 0.4 mg multi-dose injection PRN, Starting on Tue04/08/20 at 1642, Until Tue04/08/20 at 1801, Anesthesia Intra-op, Routine lactated ringers infusion New Bag 04/08/2020 3:10 PM EST 1,000 mL, at 100 mL/hr, Intravenous, CONTINUOUS, Starting on Tue04/08/20 at 1230, Until Tue04/08/20 at 1804, Day of Surgery (Day of Procedure) lidocaine (pf) (Xylocaine) (20 mg/mL) 2% Given 04/08/2020 3:19 P M EST 80 mg injection syringe PRN, Starting on Tue04/08/20 at 1519, Until Tue04/08/20 at 1801, Anesthesia Intra-op, Routine neostigmine (Bloxiver) (1 mg/mL) injecti on Given 04/08/2020 4:42 PM EST 2 mg PRN, Starting on Tue04/08/20 at 1642, Until Tue04/08/20 at 1801, Anesthesia Intra-op, Routine ondansetron (pf) (Zofran) (2 mg/mL) inje ction Given 04/08/2020 4:42 PM EST 4 mg PRN, Starting on Tue04/08/20 at 1642, Until Tue04/08/20 at 1801, Anesthesia Intra-op, Routine PHENYLephrine in NS (PF) (RG-SYNEPHRINE) Given 04/08/2020 4:37 PM EST 160 mcg 0.8 mg/10 mL (80 mcg/mL) multi-dose injection Syrg PRN, Starting on Tue04/08/20 at 1541, Until Tue04/08/20 at 1801, Anesthesia Intra-op, Routine Given 04/08/2020 4:25 PM EST 160 mcg Given 04/08/2020 4:06 PM EST 160 mcg propofoL (Diprivan) 10 mg/mL bolus injection Given 3:26 PM EST 200 mg (Anesthesia) PRN, Starting on Tue04/08/20 at 1526, Until Tue04/08/20 at 1801, Anesthesia Intra-op rocuronium (Zemuron) (10 mg/mL) multi-dose Given 04/08/2020 3:36 PM EST 25 mg injection PRN, Starting on Tue04/08/20 at 1536, Until Tue04/08/20 at 1801, Anesthesia Intra-op, Routine succinylcholine (Anectine;Quelicin) (20 Given 04/08/2020 3:26 PM EST 100 mg mg/mL) injection PRN, Starting on Tue04/08/20 at 1526, Until Tue04/08/20 at 1801, Anesthesia Intra-op, Routine documented in this encounter Care Teams Occupational Medicine Specialist Relationship Specialty Start Date End Date Tara Joya MD PCP - General Family Medicine 05/16/[address] [place] [address] documented as of this encounter
--- OUTSIDE RECORDS SUMMARY | 2021-10-21 08:00 | XMS_ITS | Encounter Summary ---
:1950 Author Organization [facility] [address] Care Team Providers Name Role Phone Tara Joya MD Primary Care Provider [phone] Reason for Visit Reason Onset Date Comments Injections 04/18/2020 Encounter Details Date Type Department Care Team Description 04/18/2020 Telephone Hematology Oncology at Amanda Wilkinson RN [place] [phone] Social History Tobacco Use Types Packs/Day Years Used Date Former Smoker Cigarettes 1 40 Quit: 01/09/20 03 Smokeless Tobacco: Never Used Alcohol Use Standard Drinks/Week Comments No 0 (1 standard drink = 0.6 oz pure alcoho l) Sex Assigned at Date Recorded Not on file documented as of this encounter Miscellaneous Notes Telephone Encounter - Amanda Wilkinson RN - 04/18/2020 2:47 PM EST Nika called stating Ward got an opportunity to get his COVID vaccine tomorrow and wanted to know if it was ok for him to get it while he is on chemo. They had spoke with Dr Ritchie about it before and she was just double checking. I advised her it is safe for patients to get the COVID vaccine while onchemo. I directed her to the [facility] web site for further answers to her questions. She agreed. documented in this encounter Plan of Treatment Upcoming Encounters Date Type Specialty Care Team Description 10/21/2021 Infusion Hematology and Oncology 11/09/2021 Office Visit Hematology and Oncology Alhaji Ritchie MD [facility] DR ONCOLOGY DEPT. [place], [place] [address] (Wo rk) 11/09/2021 Infusion Hematology and Oncology 12/10/2021 Office Visit Dermatology Silas Walters MD [address] DERMATOLOGY [place], [place] [address] (Wo rk) 09/19/2039 Hospital Encounter Surgery Osman Branett MD [facility] OTOLARYNGOLOGY D EPT. [place], [place] [address] (Wo rk) Scheduled Procedures Name [...] on filedocumented in this encounter Care Teams Marketing Project Coordinator Relationship Specialty Start Date End Date Tara Joya MD PCP - General Family Medicine 05/16/[address] [place] [address] documented as of this encounter
--- OUTSIDE RECORDS SUMMARY | 2021-10-21 08:00 | XMS_ITS | Encounter Summary ---
:1950 Author Organization [facility] [place] [address] Care Team Providers Name Role Phone Tara Joya MD Primary Care Provider [phone] Reason for Visit Reason Comments IV Medication IV hydration and PO antiemet ics Treatment/Therapy Plan Authorization (Routine) - Closed Specialty Diagnoses / Procedures Referred By Contact Refer red To Contact Diagnoses Squamous cell carcinoma of ear, left Chemotherapy-induced nausea Ashok Ritchie MD [facility] Hem Onc Infusion [address] ONCOLOGY DEPT. [place], [place] [phone] Fax: Referral ID Status Reason Start Date Expiration Date Visits Requ ested Visits Authorized [id number] Closed 03/10/2020 03/10/2021 99 99 Encounter Details Date Type Department Care Team Description 04/30/2020 Infusion Hematology Oncology at [facility] uamous cell carcinoma of ear, left; [facility] Chemotherapy-induced nausea [address] [place] [phone] Social History Tobacco Use Types [...] Sign Reading Time Taken Comments Blood Pressure 146/75 04/30/2020 11:08 AM EST Pulse 68 04/30/2020 11:08 AM EST Temperature 37 ??C (98.6 ??F) 04/30/2020 11:08 AM EST Respiratory Rate 24 04/30/2020 11:08 AM EST Oxygen Saturation 99% 04/30/2020 11:08 AM EST Inhaled Oxygen Concentration - - Weight 73.3 kg (161 lb 9.6 oz) 04/30/2020 11:08 AM EST Height - - Body Mass Index 23.53 04/28/2020 10:35 AM EST documented in this encounter Progress Notes Sravani Logan RN - 04/30/2020 11:00 AM EST INFUSION THERAPY ADMINISTRATION NOTES DIAGNOSIS: Squamous cell cancer of the left ear REASON FOR VISIT: Hydration & Antiemetics SUBJECTIVE Ward reports that he feels a little better OBJECTIVE IV ACCESS: Mediport REACTIONS (DESCRIPTION, TIME, INTERVENTION AND EFFECTIVENESS) none ASSESSMENT Ward was awake, alert and tolerated treatment well. . PLAN Return to clinic per routine. documented in this encounter Plan of Treatment Upcoming Encounters Date Type Specialty Care Team Description 10/21/2021 Infusion Hematology and Oncology 11/09/2021 Office Visit Hematology and Oncology Alhaji Ritchie MD [facility] ONCOLOGY DEPT. [place], [place] [address] (Jin carson) 11/09/2021 Infusion Hematology and Oncology 12/10/2021 Office Visit Dermatology Silas Walters MD [address] [place] [address] DERMATOLOGY [place], [place] [address] (Wo rk) 09/19/2039 Hospital Encounter Surgery Osman Barnett MD [facility] OTOLARYNGOLOGY D EPT. [place], [place] [address] (Jin carson) Scheduled Procedures Name [...] Rate Site heparin (pf) (porcine) (100 Given 04/30/2020 12:12 PM EST 500 Un its units/mL) flush 5 mL syringe 500 Units 500 Units, Intravenous, ONCE PRN, Starting on Tue04/30/20 at 1047, Until Tue04/30/20 at 1623, Line Care, Refer to Intravenous (IV) Procedure: Accessing Implanted Vascular Access Devices (514) procedure and/or Intravenous (IV) Job Aid: Adult Flushing & Catheter Care (8181) job aid for additional information regarding guidelines and administration., Routine LORazepam (Ativan) tablet 0.5 mg Given 04/30/2020 11:20 AM EST 0.5 mg 0.5 mg, Oral, ONCE PRN, 1 dose, Starting on Tue04/30/20 at 1047, Until Tue04/30/20 at 1120, Nausea, Routine ondansetron (Zofran) tablet 16 mg Given 04/30/2020 11:20 AM EST 16 mg 16 mg, Oral, ONCE, 1 dose, On Tue04/30/20 at 1115, Routine sodium chloride 0.9 % (flush) flush 5-20 mL Given 04/30/2020 12:12 PM EST 20 mLs 5-20 mL, Intravenous, EVERY 1 MIN PRN, Starting on Tue04/30/20 at 1047, Until Tue04/30/20 at 1623, Line Care, Flush pertains to all indwelling lines. Flush per protocol found in the job aid using the link provided on this medication record. Refer to Intravenous (IV) Job Aid: Adult Flushing & Catheter Care (6648) job aid for additional information regarding guidelines and administration., Routine sodium chloride 0.9% infusion New Bag 04/30/2020 11:08 AM EST 1,000 mLs 1000 mL/hr 1,000 mL, at 1,000 mL/hr, Intravenous, CONTINUOUS, Starting on Tue04/30/20 at 1115, Until Tue04/30/20 at 1214 documented in this encounter Care Teams Handy Worker Relationship Specialty Start Date End Date Tara Joya MD PCP - General Family Medicine 05/16/[address] [place] [address] documented as of this encounter
--- OUTSIDE RECORDS SUMMARY | 2021-10-21 08:00 | XMS_ITS | Encounter Summary ---
:1950 Author Organization [facility] [place] [address] Care Team Providers Name Role Phone Tara Joya MD Primary Care Provider [phone] Encounter Details Date Type Department Care Team Description 03/27/2020 TH Visit Otolaryngology at [facility] Urbano Beck Squamous cell carcinoma, ear , left; (TeleHealth) [facility] NANDA Espino Postoperative wound dehiscence, [place] [phone] Center [phone] [place] [address] Social History Tobacco Use Types Packs/Day Years Used Date Former Smoker Cigarettes 1 40 Quit: 01/09/20 03 Smokeless Tobacco: Never Used Alcohol Use Standard Drinks/Week Comments No 0 (1 standard drink = 0.6 oz pure alcoho l) Sex Assigned at Date Recorded Not on file documented as of this encounter Progress Notes Urbano Beck PA - 03/27/2020 9:00 AM EST [facility] FOLLOW UP NOTE Ward Santamaria is a 69 y.o. 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 He has a history of a [id number] cutaneous skin cancer involving the ear canal, temporal bone, parotidgland, and surrounding tissue. He underwent left ear tumor resection, total parotidectomy, selectiveneck dissection, left pectoralis myocutaneous flap reconstruction on 02/20/20. The Head and Neck Tumor Board recommended adjuvant radiation, as well as consideration of adjuvant chemotherapy in light ofthe aggressive nature of his disease. He developed dehiscence of his incision lines at 2 sites: along the superior anterior aspect of the flap, as well as at the posterior superior aspect, extending along the auricle remnant. He has been undergoing regular packing changes of the wound sites. This follow up visit was done remotely in order to promote good social distancing practices and limit visits to the hospital in order to reduce the possibility of exposure and spread of COVID19 during the public health emergency. New issues since last visit: Doing well. No fevers. No redness. There is still some yellow stuff in the incision under the ear. PROBLEM LIST Patient Active Problem List Diagnosis [...] ear, left C44.229 ??? Hearing loss H91.90 PAST MEDICAL HISTORY No past medical history [...] Capsule Take by mouth as needed. ??? clindamycin (CLEOCIN) 300 mg Capsule Take 1 capsule by mouth 3 times daily. 30 capsule 0 ??? white petrolatum-mineral oiL (Refresh-PM) Place 1 each into the left eye 2 times daily. 1 Tube 5 ??? carboxymethylcellulose (REFRESH PLUS) 0.5 % Dropperette Place 2 drops into both eyes 4 times daily. 2 Bottle 0 ??? HYDROcodone-acetaminophen (Clifton) 5-325 mg Tablet Take 1 tablet by mouth every 6 hours as neededfor Pain. (Patient not taking: Reported on 03/10/2020) 15 tablet 0 ??? nitroGLYcerin (NITROSTAT) 0.4 mg Tablet, [...] comfortably without stridor. - No acute distress. NECK - Surgical incision lines along flap with dehiscence at the superior anterior aspect, with packing in place; and at the superior posterior aspect, with extension to the auricle remnant, with packing inplace. No gross drainage or erythema appreciated. PROCEDURES REVIEW OF IMAGES/STUDIES ASSESSMENT/RECOMMENDATIONS - Discussed continuing with packing changes per current regimen. The patient and his had numerous questions regarding optimum management of the dehiscent areas, and these were answered to their satisfaction. They also had questions regarding the timing of his upcoming radiation treatment and chemotherapy treatment start dates, and these were deferred to their respective managing providers. Discussed having the patient come to the clinic on Tuesday around the time of his radiation oncology appointment on Tuesday for closer reassessment. - The patient expressed understanding of these points and agreement with the plan, and all questionsthat were asked were answered to the patient's satisfaction. Plan: > Continue current wound care regimen. > Return to clinic on Tuesday for reassessment. > Patient should call if their symptoms worsen or fail to improve, if new concerning symptoms arise, or if they have any questions or concerns regarding their treatment. I provided care to the patient today via telephone call. The total time associated with this visit was 15 minutes. I appreciate the opportunity to be involved in Mr. Santamaria's care. Urbano Beck PA-C [place], [place] [phone] Office 03/27/2020 documented in this encounter Plan of Treatment Upcoming Encounters Date Type Specialty Care Team Description 10/21/2021 Infusion Hematology and Oncology 11/09/2021 Office Visit Hematology and Oncology Alhaji Ritchie MD [facility] DR ONCOLOGY DEPT. [place], [place] [address] (Jin carson) 11/09/2021 Infusion Hematology and Oncology 12/10/2021 Office Visit Dermatology Silas Walters MD [address] [place] [address] DERMATOLOGY [place], [place] [address] (Jin carson) 09/19/2039 Hospital Encounter Surgery Osman Barnett MD [facility] OTOLARYNGOLOGY D EPT. [place], [place] [address] (Jin carson) Scheduled Procedures Name [...] Diagnoses Diagnosis Squamous cell carcinoma, ear, left Postoperative wound dehiscence, subseque nt encounter documented in this encounter Care Teams Cold Meat Chef Relationship Specialty Start Date End Date Tara Joya MD PCP - General Family Medicine 05/16/[address] [place] [address] documented as of this encounter
--- OUTSIDE RECORDS SUMMARY | 2021-10-21 08:00 | XMS_ITS | Encounter Summary ---
:1950 Author Organization [place] [address] Care Team Providers Name Role Phone Tara Joya MD Primary Care Provider [phone] Reason for Visit Reason Onset Date Comments Follow-up 04/15/2020 s/p first Cisplatin Encounter Details Date Type Department Care Team Description 04/15/2020 Telephone Hematology/Oncology at [facility] w-up (s/p first [facility] Leanne Joyce RN Cisplatin) [address] [place] [phone] Social History Tobacco Use Types Packs/Day Years Used Date Former Smoker Cigarettes 1 40 Quit: 01/09/20 03 Smokeless Tobacco: Never Used Alcohol Use Standard Drinks/Week Comments No 0 (1 standard drink = 0.6 oz pure alcoho l) Sex Assigned at Date Recorded Not on file documented as of this encounter Miscellaneous Notes Telephone Encounter - Leanne Lema RN - 04/15/2020 1:00 PM EST Post chemo call Met with Pt briefly while he was here for concurrent XRT. Regimen received: Cisplatin Date of treatment: 04/14/20 Assessment: Symptom?? Present (yes[y]/no[n]/ stable[s] from baseline)?? Additional information/Assessment?? GI? Nausea?? N ?? Vomiting?? N ?? Nausea medication?? Y ??has antiemetics as needed Tolerating diet?? Y ?? Maintaining fluid intake (indicate volume)?? Y ?? Bowel movements regular?? Y ?? Diarrhea?N ?? Mouth sores?N ?? General? Pain (0 none - 10 high)?? 0 ?? Using pain medications?? N Fever?? N ?? Neuro? Level of fatigue (0 - 5)?? 0? Falls?? N ?? Numbness/tingling in arms/legs?? N ?? Cognitive changes?? N? Skin? Skin changes?? N ?? Pinpoint red dots?? N ?? Other s/s of bleeding?? N ?? IV site/VAD problems?? N?? Musculoskeletal? Joint swelling or tenderness?? N ?? Arthralgias or myalgias?? N ? Voiding problems?? N ?? Color and quality of urine?? S ?? Cardio-pulmonary? Shortness of breath?? N ?? Chest pain?? N ?? Swelling in legs?? N ?? Calf pain or tenderness?N ?? Cough (productive/non-productive)?? N ?? Psychosocial? Coping?? Y? Need prescription renewals? Other issues: ?? Education provided: ?? Plan:? 1. Reinforced to patient/care-daytime caregiver to call facility 11/10 with any new/worsening signs and symptoms or concerns or questions.?? Phone number provided.?? Pt verbalized understanding and is in agreement with plan. ? documented in this encounter Plan of Treatment Upcoming Encounters Date Type Specialty Care Team Description 10/21/2021 Infusion Hematology and Oncology 11/09/2021 Office Visit Hematology and Oncology Alhaji Ritchie MD [facility] DR ONCOLOGY DEPT. [place], [place] [address] (Wo rk) 11/09/2021 Infusion Hematology and Oncology 12/10/2021 Office Visit Dermatology Silas Walters MD [address] [place] [address] DERMATOLOGY [place], [place] [address] (Wo rk) 09/19/2039 Hospital Encounter Surgery Osman Barnett MD [facility] OTOLARYNGOLOGY D EPT. [place], [place] [address] (Wo rk) Scheduled Procedures [...] on filedocumented in this encounter Care Teams Info Print Press Operator Relationship Specialty Start Date End Date Tara Joya MD PCP - General Family Medicine 05/16/[address] [place] [address] documented as of this encounter
--- OUTSIDE RECORDS SUMMARY | 2021-10-21 08:00 | XMS_ITS | Encounter Summary ---
:1950 Author Organization [facility] [place] [address] Care Team Providers Name Role Phone Tara Joya MD Primary Care Provider [phone] Encounter Details Date Type Department Care Team Description 04/25/2020 Notes [facility] [address] [phone] Social History Tobacco Use [...] Sign Reading Time Taken Comments Blood Pressure 148/78 04/25/2020 3:10 PM EST Pulse 65 04/25/2020 3:10 PM EST Temperature 37 ??C (98.6 ??F) 04/25/2020 3:05 PM EST Respiratory Rate 20 04/25/2020 3:05 PM EST Oxygen Saturation 99% 04/25/2020 3:05 PM EST Inhaled Oxygen Concentration - - Weight - - Height - - Body Mass Index - - documented in this encounter Progress Notes Felicia Barnes RN - 04/25/2020 3:18 PM EST [place], [place] Radiation Oncology Nursing on Treatment Note Patient has received 10 fx, 2000 cGy For treatment of h/n ca Side effects that patient is experiencing: He initially asked to see nurse today because he woke up this AM and noticed that his hands are shakey. He is able to perform all ADLs with not impairment, for example feed and dress self. He proceeded to place both hands out and a mild tremor was noted bilaterally. He states he has never noticed this before. He also mentions that he is beginning to feel some effects of the radiation with his swallowing. He is eating soft bland foods: welsh toast and bologna sand which so far today. He grades odynophagia 3/10. He is also drinking a lot of water. Assessment: Vitals: 04/25/20 1505 04/25/20 1510 BP: 152/79 148/78 Patient Position: Sitting Standing Pulse: 63 65 Resp: 20 Temp: 37 ??C (98.6 ??F) TempSrc: Temporal SpO2: 99% See flow sheet or click on expand all in this progress note. Patient was reassured that his mild shaking of hands is not an anticipated side effect of the radiation treatment. Recommended that he keep us informed if it get worse or persists. It does not seem problematic or conerning at this time. He shows no evidence of orthostatic hypotension and no evidence of dehydration. Anticipatory guidance/ interventions: Dr Galdamez informed of pain with swallowing. He ordered bmx. Pt instructed of directions. For Weekend coverage while our clinic is closed, the patient was instructed to call [facility] [place] [phone] and ask for the television inspector radiation oncologist. Patient verbalized understanding. Plan: Weekly on-treatment visit next w/ Dr Vanessa ( covering for Dr Galdamez ) and daily visits PRN with nursing documented in this encounter Plan of Treatment Upcoming Encounters Date Type Specialty Care Team Description 10/21/2021 Infusion Hematology and Oncology 11/09/2021 Office Visit Hematology and Oncology Alhaji Ritchie MD [facility] DR ONCOLOGY DEPT. [place], [place] [address] (Jin carson) 11/09/2021 Infusion Hematology and Oncology 12/10/2021 Office Visit Dermatology Silas Walters MD [address] [place] [address] DERMATOLOGY [place], [place] [address] (Wo rk) 09/19/2039 Hospital Encounter Surgery Osman Barnett MD [facility] OTOLARYNGOLOGY [place] EPT. [place], [place] [address] (Wo rk) Scheduled Procedures Name [...] Diagnosis Squamous cell carcinoma of ear, left Odynophagia Dysphagia, unspecified documented in this encounter Care Teams Pig Conveyor Operator Relationship Specialty Start Date End Date Tara Joya MD PCP - General Family Medicine 05/16/[address] [place] [address] documented as of this encounter
--- OUTSIDE RECORDS SUMMARY | 2021-10-21 08:00 | XMS_ITS | Encounter Summary ---
:1950 Author Organization [facility] [place] [address] Care Team Providers Name Role Phone Tara Joya MD Primary Care Provider [phone] Encounter Details Date Type Department Care Team Description 03/31/2020 Ancillary Appointment Radiation Oncology at [facility] [place] [address] RADIATION ONCOLOGY [phone] [place] [address] Social History Tobacco Use Types Packs/Day Years Used Date Former Smoker Cigarettes 1 40 Quit: 01/09/20 03 Smokeless Tobacco: Never Used Alcohol Use Standard Drinks/Week Comments No 0 (1 standard drink = 0.6 oz pure alcoho l) Sex Assigned at Date Recorded Not on file documented as of this encounter Last Filed Vital Signs Vital Sign Reading Time Taken Comments Blood Pressure 151/76 03/31/2020 9:59 AM EST Pulse 104 03/31/2020 9:59 AM EST Temperature - - Respiratory Rate 17 03/31/2020 9:59 AM EST Oxygen Saturation 99% 03/31/2020 9:59 AM EST Inhaled Oxygen Concentration - - Weight 76.4 kg (168 lb 6.4 oz) 03/31/2020 9:59 AM EST Height - - Body Mass Index 24.87 03/20/2020 3:22 PM EST documented in this encounter Patient Instructions Patient InstructionsSara Johnson RN - 03/31/2020 10:30 AM EST General instructions for Radiation therapy Radiation Oncology Team ?? Radiation Oncologist -The doctor who will direct all aspects of your radiation treatments ?? Nurse Practitioner - They assist your doctor in treating your side effects and with follow up appointments. ?? Registered Nurse - They assist you in learning about your radiation treatments, and things you can do to help manage the side effects. ?? Collision Mechanic - They take the doctors radiation prescription and customize it into doses (or days of treatments) specific for you. ?? Physicist - They make sure all the machines are operating correctly and double check calculationsfor your treatment. ?? Radiation Technologists - They operate the machines which deliver your radiation. You see them daily and they schedule your treatments. ?? Simulation CT/ Planning Session- Your first step after deciding to start radiation treatments is done on a special CT scanner in radiation oncolcgy. The images obtained are used to plan your treatments. This may be scheduled the sameday you meet your doctor or in a separate visit. This usually takes between 30 minutes to one hour. You may need an IV for contrast. If so our nurse will let you know that day along with any other special instructions. During this visit we may keyona Your skin with a tiny ???tattoos?? , take pictures ormake special molds or masks to help us place you in the exact treatment position every day. After this session it takes up to two weeks for your plan to be developed and checked by your doctor, the dosimetrists and the physicist. ?? Skin Care - Your nurse/physician will provide you with the necessary creams and supplies as you need them during your treatments. Please make sure to keep the treatment area clean and dry. Be sure to notice if your clothing rubs or digs into the treatment area and try to wear clothes which are less abrasive, like cotton or loosefitting. Do not use harsh soaps, ointments, deodorants or tapes in the treatment area unless directed by your nurse or doctor. Keep the treatment area out of the sun during treatments. ?? General precautions- DO NOT USE heating pads, hot water bottles, hot poultices, heat lamps, heat in any form, or ice packs to the area of your body being treated. It is common to start feeling fatigue after a few weeks of being treated. You can help minimize this by getting regular exercise or walking and getting plenty of rest. In general a well balanced diet is recommended. The personal development mentor and nurse will inform you of any special diet requirements. Avoid shaving the treatment area with a razor. If you must shave use an electric razor. Our Contact numbers Section of Radiation Oncology Our normal business hours are: Tuesday - Tuesday: 8:00 AM to 5:00 PM [facility]: [facility]: If you have questions about your radiation appointments please ask to speak to one of our medical office secretary staff. If you have questions for a nurse/doctor about radiation treatments, radiation side effects or you are not feeling well it is best to call early in the day. This allows a nurse to return your call by 5PM the same day. If you call after 4 PM, a nurse will return your call by 5 PM the following day unless it is emergent. If you experience any of the following you need to seek emergency care immediately by calling 911 1. Sudden and unexpected breathing difficulty without any exertion 2. Sudden onset of chest pain 3. Sudden onset of severe pain or uncontrolled pain 4. Sudden onset of severe weakness and/or unable to ambulate 5. Sudden new onset of a seizure 6. Fall resulting in injury ?? A Radiation Oncology doctor is customer solutions representative after our normal hours and on weekends. ?? To call for urgent medical issues from radiation treatments that can not wait until normal business hours: ?? Call for either location and have the metal washing machine operator page the Radiation Oncologist customer solutions representative. documented in this encounter Progress Notes Sara Johnson RN - 03/31/2020 10:30 AM EST Section of Radiation Oncology Contrast Information Safety Questions 1. Has the patient ever had an x-ray study before which involved injection of a contrast agent or x-ray dye? yes If yes, did the patient have any reaction to the injection? no If yes, please describe the reaction: n/a 2. Is the patient allergic to any foods, medicines, or other substances? yes Allergies Allergen Reactions ??? Penicillins rash ??? Codeine Phosphate Rash 3. Has the patient received any contrast within the past 24 hours? no 4. Does the patient have any procedures scheduled in the next 24 hours? no 5. Does the patient have a history of renal/kidney problems or kidney surgery? no 6. Does the patient have diabetes? no 7. Does the patient have high blood pressure? yes 8. Is the patient currently being treated for gout? no 9. If the answer to any of the questions #5-8 was yes, has the patient had a creatinine level and eGFR drawn within the past 45 days? yes Lab Results Component Value Date CREATININE 0.65 (L) 02/23/2020 A creatinine less than or equal to 1.6 and a eGFR of 45 or greater OK to proceed with IV contrast. If the creatinine is greater than 1.6 and the eGFR is less than 45, consult with the ordering provider. If an eGFR is less than 30, IV contrast should not be administered and another contrast agent may beordered by the provider (Visipaque). 10. Is the patient currently taking any of the following medications? 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 The consent was reviewed with the physician and signed by both the patient and physician. An intravenous line was placed in anticipation of contrast administration. The patient was then brought to the simulation room and a time-out was performed per protocol. he was then placed on the simulationtable and a custom cushion was constructed for his neck. Scars were marked with radio-opaque markersand a bite block was placed under physician supervision. A custom aquaplast mask was then created. The simulation CT scan was performed with contrast, images were reviewed and approved by the physician, and tattoos were created by the therapy staff as indicated. The patient tolerated the procedure without difficulty, and was given a time to return to start radiotherapy. documented in this encounter Plan of Treatment Upcoming Encounters Date Type Specialty Care Team Description 10/21/2021 Infusion Hematology and Oncology 11/09/2021 Office Visit Hematology and Oncology Alhaji Ritchie MD [facility] DR ONCOLOGY DEPT. [place], [place] [address] (Wo rk) 11/09/2021 Infusion Hematology and Oncology 12/10/2021 Office Visit Dermatology Silas Walters MD [address] DERMATOLOGY [place], [place] [address] (Wo rk) 09/19/2039 Hospital Encounter Surgery Osman Barnett MD [facility] OTOLARYNGOLOGY D EPT. [place], [place] [address] (Wo rk) Scheduled Procedures Name [...] MAR Action Action Date Dose Rate Site LORazepam (Ativan) tablet 1 mg Given 03/31/2020 10:55 AM EST 1 mg 1 mg, Oral, ONCE, 1 dose, On 03/31/20 at 1100, Routine documented in this encounter Care Teams Real Estate Loan Officer Relationship Specialty Start Date End Date Tara Joya MD PCP - General Family Medicine 05/16/[address] [place] [address] documented as of this encounter
--- OUTSIDE RECORDS SUMMARY | 2021-10-21 08:00 | XMS_ITS | Encounter Summary ---
:1950 Author Organization [facility] [place] [address] Care Team Providers Name Role Phone Tara Joya MD Primary Care Provider [phone] Reason for Visit Reason Comments IV Medication Hydration and Antiemetics Treatment/Therapy Plan Authorization (Routine) - Closed Specialty Diagnoses / Procedures Referred By Contact Refer red To Contact Diagnoses Squamous cell carcinoma of ear, left Chemotherapy-induced nausea Ashok Ritchie MD [facility] Hem Onc Infusion [address] [place] [phone] Fax: Referral ID Status Reason Start Date Expiration Date Visits Requ ested Visits Authorized [id number] Closed 03/10/2020 03/10/2021 99 99 Encounter Details Date Type Department Care Team Description 04/17/2020 Infusion Hematology Oncology at [facility] uamous cell carcinoma of [facility] ear, left [address] [place] [phone] Social History Tobacco Use Types Packs/Day Years Used Date Former Smoker Cigarettes 1 40 Quit: 01/09/20 03 Smokeless Tobacco: Never Used Alcohol Use Standard Drinks/Week Comments No 0 (1 standard drink = 0.6 oz pure alcoho l) Sex Assigned at Date Recorded Not on file documented as of this encounter Progress Notes Sravani Logan RN - 04/17/2020 2:00 PM EST INFUSION THERAPY ADMINISTRATION NOTES DIAGNOSIS: squamous cell carcinoma of left ear REASON FOR VISIT: Hydration and antiemetics SUBJECTIVE Ward Santamaria offers no complaints. OBJECTIVE IV ACCESS: mediport accessed; brisk blood return noted. Port flushed with 20ml of NS and 500 units of heparin and de-accessed after infusion completed. REACTIONS (DESCRIPTION, TIME, INTERVENTION AND EFFECTIVENESS) none ASSESSMENT Ward Santamaria was awake, alert and tolerated treatment well. PLAN Return to clinic per routine. documented in this encounter Plan of Treatment Upcoming Encounters Date Type Specialty Care Team Description 10/21/2021 Infusion Hematology and Oncology 11/09/2021 Office Visit Hematology and Oncology Alhaji Ritchie MD [facility] DR ONCOLOGY DEPT. [place], [place] [address] (Wo rk) 11/09/2021 Infusion Hematology and Oncology 12/10/2021 Office Visit Dermatology Silas Walters MD [address] [place] [address] DERMATOLOGY [place], [place] 03 [facility] [phone] (Wo rk) 09/19/2039 Hospital Encounter Surgery Osman Barnett MD [facility] OTOLARYNGOLOGY D EPT. [place], [place] [address] (Wo rk) Scheduled Procedures Name [...] MAR Action Action Date Dose Rate Site dexamethasone (Decadron) injection Given 04/17/2020 2:16 PM EST 5.2 mg 5.2 mg 5.2 mg (rounded from 5 mg), Intravenous, ONCE, 1 dose, On Jessica 04/17/20 at 1415 heparin (pf) (porcine) (100 units/mL) Given 04/17/2020 3:[address] 500 Units flush 5 mL syringe 500 Units 500 Units, Intravenous, ONCE PRN, Starting on Jessica 04/17/20 at 1359, Until Jessica 04/17/20 at 1722, Line Care, Refer to Intravenous (IV) Procedure: Accessing Implanted Vascular Access Devices (654) procedure and/or Intravenous (IV) Job Aid: Adult Flushing & Catheter Care (4263) job aid for additional information regarding guidelines and administration., Routine ondansetron (Zofran) tablet 16 mg Given 04/17/2020 2:15 PM EST 16 mg 16 mg, Oral, ONCE, 1 dose, On Jessica 04/17/20 at 1415, Routine sodium chloride 0.9 % (flush) flush 5-20 mL Given 04/17/2020 3:12 PM EST 20 mLs 5-20 mL, Intravenous, EVERY 1 MIN PRN, Starting on Jessica 04/17/20 at 1359, Until Jessica 04/17/20 at 1722, Line Care, Flush pertains to all indwelling lines. Flush per protocol found in the job aid using the link provided on this medication record. Refer to Intravenous (IV) Job Aid: Adult Flushing & Catheter Care (7349) job aid for additional information regarding guidelines and administration., Routine sodium chloride 0.9% infusion New Bag 04/17/2020 2:11 PM EST 1,000 mLs 1000 mL/hr 1,000 mL, at 1,000 mL/hr, Intravenous, CONTINUOUS, Starting on Jessica 04/17/20 at 1415, Until Jessica 04/17/20 at 1514 documented in this encounter Care Teams Printing Pressman Relationship Specialty Start Date End Date Tara Joya MD PCP - General Family Medicine 05/16/[address] [place] [address] documented as of this encounter
--- OUTSIDE RECORDS SUMMARY | 2021-10-21 08:00 | XMS_ITS | Encounter Summary ---
:1950 Author Organization [facility] [place] [address] Care Team Providers Name Role Phone Tara Joya MD Primary Care Provider [phone] Encounter Details Date Type Department Care Team Description 04/07/2020 Orders Only Hematology/Oncology at Ashok Ritchie S quamous cell [facility] carcinoma of ear, left [address] [place] [address] ONCOLOGY DEPT. [phone] [place], [place] [address] Social History Tobacco Use Types [...] Alhaji Ritchie MD [facility] ONCOLOGY DEPT. [place], [place] [address] (Wo rk) 11/09/2021 Infusion Hematology and Oncology 12/10/2021 Office Visit Dermatology Silas Walters MD [address] [place] [address] DERMATOLOGY [place], [place] [address] (Wo rk) 09/19/2039 Hospital Encounter Surgery Osman Barnett MD [facility] OTOLARYNGOLOGY [place]ene EPT. [place], [place] [address] (Wo rk) Scheduled Procedures Name [...] left documented in this encounter Care Teams Auto Fleet Manager Relationship Specialty Start Date End Date Tara Joya MD PCP - General Family Medicine 05/16/[address] [place] [address] documented as of this encounter
--- OUTSIDE RECORDS SUMMARY | 2021-10-21 08:00 | XMS_ITS | Encounter Summary ---
:1950 Author Organization [facility] [place] [address] Care Team Providers Name Role Phone Tara Joya MD Primary Care Provider [phone] Encounter Details Date Type Department Care Team Description 04/28/2020 Office Visit Hematology/Oncology at Caterina Aguirre, Catie uamous cell [facility] RD carcinoma of ear, left [address] [place] [phone] Social History Tobacco Use Types Packs/Day Years Used Date Former Smoker Cigarettes 1 40 Quit: 01/09/20 03 Smokeless Tobacco: Never Used Alcohol Use Standard Drinks/Week Comments No 0 (1 standard drink = 0.6 oz pure alcoho l) Sex Assigned at Date Recorded Not on file documented as of this encounter Progress Notes Caterina Aguirre RD - 04/28/2020 1:00 PM EST [facility] Dietitian Follow Up Seen By: Caterina [...] Chemotherapy-induced nausea R11.0, T45.1X5A Meds: reviewed Labs: reviewed Estimated body mass index is 23.88 kg/m?? as calculated from the following: Height as of an earlier encounter on 04/28/20: 176.5 cm (5' 9.49). Weight as of an earlier encounter on 04/28/20: 74.4 kg (164 lb). Wt Readings from Last 3 Encounters: 04/28/20 74.4 kg (164 lb) 04/24/20 76.8 kg (169 lb 6.4 oz) 04/23/20 76.4 kg (168 lb 6.4 oz) Weight is decreased by 4-5 lbs this week (~2-3%) Wt Hx: UBW: ~170 lbs % UBW: IBW: +/- 10% % IBW: ___ Edema ___ Ascites ___Muscle wasting Calorie needs: 9533-1019 (30-35 kcal/kg) Protein needs: 112 grams (1.5 g/kg) Fluid needs: ~2.5 L Nutrition Assessment: Food Intake: Eating smaller, more frequent meals. He began using 1 Ensure per day mixed with other ingredients such as fruit and ice cream to improve taste. Difficulty with tough meats, such as steak, but able to chew small bites of softer meats/chicken; other foods he likes include eggs, oatmeal w/milk, ice cream and pancakes. accompanies patient at visit today. She is encouraging patient and preparing meals and shakes. 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 Nutrition Intervention: ? Increased caloric needs - We discussed the concept of food as medicine and the importance of eating small, frequent, calorically dense, protein-rich meals and snacks throughout the day ? Modify diet consistency: as tolerated - softer foods working best ? Increase frequency of meals and snacks - plan for patient's son to come by to help encourage patient to eat every couple of hours ? Need for supplements: continue high calories, high protein shakes ? Plan to start using Beneprotein or alternative unflavored protein powder, recipes provided Monitoring and Evaluation: Will follow up weekly. documented in this encounter Plan of Treatment Upcoming Encounters Date Type Specialty Care Team Description 10/21/2021 Infusion Hematology and Oncology 11/09/2021 Office Visit Hematology and Oncology Alhaji Ritchie MD [facility] ONCOLOGY DEPT. [place], [place] [address] (Jin carson) 11/09/2021 Infusion Hematology and Oncology 12/10/2021 Office Visit Dermatology Silas Walters MD [address] [place] [address] RD DERMATOLOGY [place], [place] [address] (Jin carson) 09/19/2039 Hospital Encounter Surgery Osman Barnett MD [facility] OTOLARYNGOLOGY [address] [place], [place] [address] (Wo rk) Scheduled Procedures Name [...] left documented in this encounter Care Teams Merchandising Professor Relationship Specialty Start Date End Date Tara Joya MD PCP - General Family Medicine 05/16/[address] [place] [address] documented as of this encounter
--- OUTSIDE RECORDS SUMMARY | 2021-10-21 08:00 | XMS_ITS | Encounter Summary ---
:1950 [place] [address] Care Team Providers Name Role Phone Tara Joya MD Primary Care Provider [phone] Encounter Details Date Type Department Care Team Description 04/21/2020 Office Visit Hematology/Oncology Ashok Ritchie Squa mous cell carcinoma of ear, left; at [facility] Encounter for venous access device care [address] [place] [id number] ONCOLOGY DEPT. [phone] [place], [place] [address] Social History Tobacco Use Types [...] Sign Reading Time Taken Comments Blood Pressure 153/73 04/21/2020 11:09 AM EST Pulse 69 04/21/2020 11:09 AM EST Temperature 36.4 ??C (97.6 ??F) 04/21/2020 11:09 AM EST Respiratory Rate 16 04/21/2020 11:09 AM EST Oxygen Saturation 99% 04/21/2020 11:09 AM EST Inhaled Oxygen Concentration - - Weight 76.1 kg (167 lb 12.8 oz) 04/21/2020 11:09 AM EST Height 176.5 cm (5' 9.49) 04/21/2020 11:09 AM EST Body Mass Index 24.43 04/21/2020 11:09 AM EST documented in this encounter Progress Notes Ashok Ritchie MD - 04/21/2020 11:00 AM EST Head and Neck Cancer Medical Oncology Patient Active Problem List Diagnosis ??? Squamous [...] Encounter for venous access device care ??? Hearing loss Bilateral hearing aids prior to surgical loss of L ear 02/2020 ??? Mass of left ear Added automatically from request for surgery [id number] ??? Parotid mass Added automatically from request for surgery [id number] ??? History of basal cell carcinoma ??? [...] Basal cell cancer ??? Hypertriglyceridemia Medical oncology checkup. He is due for his second week of cisplatin, and his sixth radiation treatment (33 anticipated). He tolerated chemotherapy reasonably well. He did experience grade 1 nausea, peaking on days 3--5 ofthe cycle. He came in on day 4 as planned for hydration and repeat antiemetics. In reviewing his history he has not been very aggressive about taking prochlorperazine. He has also not been very aggressive about oral hydration. He has not noted any change in hearing, either hearing loss or tinnitus, nor peripheral neuropathy. No recent infectious complications. KPS 90, energy level a bit diminished but not unexpectedly. His Mediport has been functioning fine. He had a follow-up visit with Dr. Barnett last week, who found his healing to be satisfactory, although there is still a small open area at the upper end of the neck incision. His droopy left eyelid will be addressed after his treatment is completed. He has not had any corneal irritation. Physical exam: He comes today accompanied by his . He looks well, in quiet good spirits Oral exam is benign Facial exam shows nearly completely healed left neck and face grafted tissue, with a small gauze dressing and an open area at the upper limit of this sutures. There is no palpable adenopathy nor skin nodules to suggest recurrence. Lymph node exam elsewhere is negative The chest is clear The right chest Mediport is benign and well-healed Cardiac exam shows a regular rate and rhythm. Soft grade 1-2 systolic murmur loudest at the right upper sternal border. No gallop. Abdomen is benign, no hepatosplenomegaly or masses Extremities are normal, without clubbing cyanosis or edema Neurologic exam shows grossly normal motor and sensory function. Reflexes 1+. Cranial nerves notable for dense left peripheral seventh palsy. The left lower lid is quite lax, butthe upper lid is able to cover the cornea although slowly. Extraocular muscle movements are intact and pupils are equal Labs: Today's sodium is 137, potassium 4.0, creatinine 1.1, nonfasting glucose slightly high at 223.Magnesium slightly low at 1.7. Hepatic enzymes are normal and albumin is 3.5. White count is 8.24, hemoglobin 13.4, platelets 256. 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 Tolerating chemotherapy well save for grade 1 nausea, possibly due to under medication. Mild hypomagnesemia. Suspect some degree of mild dehydration. Plan: 1. Encouraged him to be more studious about hydration, filling a 1 L bottle with water and making sure he drinks all of this each day. 2. Encouraged him to be more aggressive about the use of prochlorperazine for any hint of nausea, particularly in the first few days after chemotherapy. 3. I will add a second dose of aprepitant or generic equivalent with his day for hydration. 4. Recommended adding an azdy-meo-sythsiq magnesium oxide 400 mg tablet daily. 5. Otherwise proceed with today's chemotherapy, ongoing radiation, and I will check on him again next week. 6. Ashok Ritchie MD, FACP tele marketing executive Hematology/Oncology Section [place] [phone] Voice recognition software used for this note; please excuse reefer engineer errors. I personally reviewed past medical, surgical, family medical histories, reviewed current medications, vital signs, labs, and performed full review of systems. These are documented below the narrative for clarity and succinctness. Outpatient Medications Marked as Taking for the 04/21/20 encounter (Office Visit) with Ashok Ritchie MD Medication Sig Dispense Refill ??? prochlorperazine (Compazine) 10 mg Tablet Take 1 tablet by mouth every 6 hours as needed for Nausea. 30 tablet 3 ??? ondansetron (Zofran) 8 mg Tablet Take [...] Review of systems is negative for other HYDRAULIC OPERATOR, bone, pulmonary, cardiac, GI, , extremity, neurologic, endocrine, skin, constitutional, emotional, or functional problems. Vitals Office Visit from 04/21/2020 in Hematology/Oncology at [facility] Weight 76.1 kg (167 lb 12.8 oz) Height 176.5 cm (5' 9.49) BSA (Calculated - sq m) 1.93 sq meters BMI (Calculated) 24.43 Temp 36.4 ??C (97.6 ??F) Temp src Temporal Heart Rate 69 Heart Rate Source Right, NIBP Resp 16 BP 153/73 BP Location Right arm Patient Position Sitting SpO2 99 % Karnofsky Score 80 Body surface area is 1.93 meters squared. Wt Readings from Last 3 Encounters: 04/21/20 76.1 kg (167 lb 12.8 oz) 04/16/20 77.6 kg (171 lb) 04/10/20 77.7 kg (171 lb 4.8 oz) No results found for this or any previous visit (from the past 72 hour(s)). ++++++++++++++++++++++++++++++++++++++++++++++++++++ documented in this encounter Plan of Treatment Upcoming Encounters Date Type Specialty Care Team Description 10/21/2021 Infusion Hematology and Oncology 11/09/2021 Office Visit Hematology and Oncology Alhaji Ritchie MD [facility] DR ONCOLOGY DEPT. [place], [place] [address] (Wo yamileth) 11/09/2021 Infusion Hematology and Oncology 12/10/2021 Office Visit Dermatology Silas Walters MD [address] DERMATOLOGY [place], [place] [address] (Wo rk) 09/19/2039 Hospital Encounter Surgery Osman Barnett MD [facility] OTOLARYNGOLOGY D EPT. [place], [place] [address] (Wo rk) Scheduled Procedures Name [...] Diagnosis Squamous cell carcinoma of ear, left Encounter for venous access device care documented in this encounter Care Teams Mine Engineering Manager Relationship Specialty Start Date End Date Tara Joya MD PCP - General Family Medicine 05/16/[address] [place] [address] documented as of this encounter
--- OUTSIDE RECORDS SUMMARY | 2021-10-21 08:00 | XMS_ITS | Encounter Summary ---
:1950 Author Organization [facility] [place] [address] Care Team Providers Name Role Phone Tara Joya MD Primary Care Provider [phone] Reason for Visit Reason Onset Date Comments Other 04/14/2020 Encounter Details Date Type Department Care Team Description 04/14/2020 Telephone Hematology/Oncology at Nancy Lucas RN Other [place] [phone] Social History Tobacco Use Types Packs/Day Years Used Date Former Smoker Cigarettes 1 40 Quit: 01/09/20 03 Smokeless Tobacco: Never Used Alcohol Use Standard Drinks/Week Comments No 0 (1 standard drink = 0.6 oz pure alcoho l) Sex Assigned at Date Recorded Not on file documented as of this encounter Miscellaneous Notes Telephone Encounter - Nancy Agee RN - 04/14/2020 12:50 PM EST calling felling a little lost. Wondering what to expect for her as he begins tx. Reviewed most people first week tolerate things well. He may have some nausea and he can start with prochlorperazine for that. He will be getting hydrated again on with more antinausea mediation that day. They are to monitor swallowing, he can eat anything right now. Told her to focus on high calorie, high fat and high protein foods. As his throat bothers him to avoid acidy food and spicy foods.He is to push hydration at least 64 oz a day. Let her know he would get discharge booklet with instructions and numbers to call for after hours if there are any concerns. We will have her come to all pr ovider visits as he has memory problem. She agrees with plan. documented in this encounter Plan of Treatment Upcoming Encounters Date Type Specialty Care Team Description 10/21/2021 Infusion Hematology and Oncology 11/09/2021 Office Visit Hematology and Oncology Alhaji Ritchie MD [facility] DR ONCOLOGY DEPT. [place], [place] [address] (Wo rk) 11/09/2021 Infusion Hematology and Oncology 12/10/2021 Office Visit Dermatology Silas Walters MD [address] [place] [address] RD DERMATOLOGY [place], [place] [address] (Wo rk) 09/19/2039 Hospital Encounter Surgery Osman Barnett MD [facility] OTOLARYNGOLOGY D EPT. [place], [place] [address] (Wo rk) Scheduled Procedures Name [...] on filedocumented in this encounter Care Teams Men'S Golf Coach Relationship Specialty Start Date End Date Tara Joya MD PCP - General Family Medicine 05/16/[address] [place] [address] documented as of this encounter
--- OUTSIDE RECORDS SUMMARY | 2021-10-21 08:00 | XMS_ITS | Encounter Summary ---
:1950 Author Organization [facility] [place] [address] Care Team Providers Name Role Phone Tara Joya MD Primary Care Provider [phone] Reason for Visit Reason Onset Date Comments Chills 04/25/2020 Encounter Details Date Type Department Care Team Description 04/25/2020 Telephone Hematology Oncology at Amanda Wilkinson RN [address] [phone] Social History Tobacco Use Types Packs/Day Years Used Date Former Smoker Cigarettes 1 40 Quit: 01/09/20 03 Smokeless Tobacco: Never Used Alcohol Use Standard Drinks/Week Comments No 0 (1 standard drink = 0.6 oz pure alcoho l) Sex Assigned at Date Recorded Not on file documented as of this encounter Miscellaneous Notes Telephone Encounter - Amanda Wilkinson RN - 04/25/2020 11:28 AM EST Ward called reporting chills that started this morning, no fever. He had them earlier in the week but they resolved on their own. He is due in today for radiation at 1400. He will be seen as a PRN after treatment. Ward knows to go to the ED if he develops a fever or other symptoms. Rad/Onc nurse Felicia yeh. documented in this encounter Plan of Treatment Upcoming Encounters Date Type Specialty Care Team Description 10/21/2021 Infusion Hematology and Oncology 11/09/2021 Office Visit Hematology and Oncology Alhaji Ritchie MD [facility] DR ONCOLOGY DEPT. [place], [place] [address] (Wo rk) 11/09/2021 Infusion Hematology and Oncology 12/10/2021 Office Visit Dermatology Silas Walters MD [address] DERMATOLOGY [place], [place] [address] (Wo rk) 09/19/2039 Hospital Encounter Surgery Osman Barnett MD [facility] OTOLARYNGOLOGY D EPT. [place], [place] [address] (Wo rk) Scheduled Procedures Name [...] on filedocumented in this encounter Care Teams Mill Order Scheduler Relationship Specialty Start Date End Date Tara Joya MD PCP - General Family Medicine 05/16/[address] [place] [address] documented as of this encounter
--- OUTSIDE RECORDS SUMMARY | 2021-10-21 08:00 | XMS_ITS | Encounter Summary ---
:1950 Author Organization [place] [address] Care Team Providers Name Role Phone Tara Joya MD Primary Care Provider [phone] Reason for Referral Diagnostic Test (Routine) - Closed Specialty Diagnoses / Procedures Referred By Contact Refer red To Contact Radiology Diagnoses Squamous cell carcinoma of ear, left Ashok Ritchie MD [facility] Interventionl Rad Procedures IR Mediport Placement [facility] [place] [address] [place] [address] Referral ID Status Reason Start Date Expiration Date Visits V isits Requested Authorized [id number] Closed Specialty 03/10/2020 09/08/2021 1 1 Service Requested Reason for Visit Auth/Cert Specialty Diagnoses / Procedures Referred By Contact Refer red To Contact Diagnoses Squamous cell carcinoma of ear, left Procedures VENOUS ACCESS PLACEMENT Referral ID Status Reason Start Date Expiration Date Visits Requ ested Visits Authorized [id number] 1 1 Encounter Details Date Type Department Care Team Description 04/08/2020 Hospital Encounter Radiology [place] [facility] [place]ok Ritchie Squamous cell [facility] carcinoma of ear, [place], [place] CENTER [address] ONCOLOGY DEPT. [phone] [place] [address] Social History Tobacco Use Types Packs/Day Years Used Date Former Smoker Cigarettes 1 40 Quit: 01/09/20 03 Smokeless Tobacco: Never Used Alcohol Use Standard Drinks/Week Comments No 0 (1 standard drink = 0.6 oz pure alcoho l) Sex Assigned at Date Recorded Not on file documented as of this encounter Medications at Time of Discharge Medication Sig Dispensed Refills Start Date End Date Ibuprofen 200 mg Capsule Take by mouth [...] Take 81 mg by mouth 0 daily. prochlorperazine Take 1 tablet by 30 tablet 3 04/04/2020 (Compazine) 10 mg mouth every 6 hours 1 TabletIndications: as needed for Nausea. Chemotherapy-induced nausea ondansetron (Zofran) 8 mg Take 1 tablet by 20 tablet 3 03/21 TabletIndications: mouth every 8 hours 1 Chemotherapy-induced nausea as needed for Nausea. Use if prochlorperazine is not effective. white petrolatum-mineral Place 1 each into the 1 Tube 5 02/28/2020 oiL (Refresh-PM) left eye 2 times [address] 2 drops into 2 Bottle 0 02/25 (REFRESH PLUS) 0.5 % both eyes 4 times 1 Dropperette daily. documented as of this encounter Progress Notes Demetrius Obrien MD - 04/08/2020 5:04 PM EST INTERVENTIONAL RADIOLOGY BRIEF PROCEDURE NOTE Patient Name: Ward Santamaria : 1950 Case Date: 04/08/2020 Operators Attending: Mann Escobar APRN Resident/Fellow/Student: Demetrius Obrien MD Post-operative diagnosis/Indication: Adjuvant chemotherapy s/p surgical resection of parotid gland SCC Name of Procedure Performed: Planned procedure: Right-sided mediport placement for adjuvant chemotherapy Brief description of the procedure: ?? Right IJ mediport placement Findings of the procedure: ?? Right IJ mediport placement EBL: <10 mL Specimens: _N/A_ Complications: No immediate Plan/Disposition: Discharge to home when meets same day criteria for discharge Can use catheter immediately FULL PROCEDURE NOTE TO FOLLOW IN IMAGE REPORT Demetrius Obrien MD, PGY-2 04/08/20 5:07 PM documented in this encounter H&P Notes Toribio Abarca DO - 04/08/2020 1:05 PM EST INTERVENTIONAL RADIOLOGY FOCUSED H&P: Procedure: Planned procedure: Right-sided mediport placement for adjuvant chemotherapy The patient's history and physical exam have been reviewed and completed. There has been no intervalchange from that of the pre-operative history and physical exam done within the last 30 days. Physical Exam: No distress. Alert. Responds appropriately to questions. Unlabored breathing on room air. The planned procedure (and sedation plan if appropriate) , its benefits and risks, and alternatives were discussed with the patient. The patient consented to the procedure. PRE-SEDATION ASSESSMENT: Sedation Plan: anesthesia Source Note - Demetrius Obrien MD - 04/07/2020 9:39 AM EST Images from the original note were not included. 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 [facility] Radiology [120] Prefered insertion location: Right side Is the patient on anticoagulant / anitplatelet therapy ? No Reason for exam and clinical history: need for chemo access Presenting Diagnosis/ Complaint: Ward Santamaria is a 69 y.o. 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 He is receiving adjuvant radiation and will be starting adjuvant chemotherapy; he presents to IR for mediport placement. Past Medical/Surgical History: Patient Active Problem List Diagnosis Code ??? [...] ear, left C44.229 ??? Hearing loss H91.90 No past medical history on file. Past Surgical History: Procedure Laterality Date ??? KIDNEY STONE SURGERY ??? PRG SOMATOSENSORY TEST, ANY/ALL PER. NERVES, TRUNK OR HEAD N/A 02/20/2020 FACIAL NERVE MONITORING, SETUP PERIPHERAL (WRVU 0.54) performed by Osman Barnett MD at [facility] MAIN OR ??? PRO ADJ TISS TRANSFER/REARRANGEMENT ANY AREA 30.1-60 SQCM Left 02/20/2020 ADJACENT TISSUE TRANSFER OR REARRANGEMENT; 30.1 TO 60.0 SQ CM, THORAX (WRVU 12.65) performed by Osman Barnett MD at [facility] MAIN OR ??? PRO ADJ TISS TRANSFER/REARRANGEMENT ANY AREA EA ADDL 30SQCM Left 02/20/2020 ADJACENT TISSUE TRANSFER OR REARRANGEMENT; EA ADD'L 30.0 SQ CM, OR PART OF (WRVU 3.73) performed byOsman Barnett MD at [facility] MAIN OR ??? PRO COLONOSCOPY, REMV LESN, SNARE N/A 07/07/2015 COLONOSCOPY, POLYPECTOMY, REMOVAL LESION BY SNARE performed by Jose Manuel Heller MD at [facility] ENDOSCOPY ??? PRO EXC PAROTD, TOTAL, DISSECT 5TH NERV Left 02/20/2020 EXCISION OF PAROTID TUMOR OR PAROTID GLAND, TOTAL, WITH DISSECTION AND PRESERVATION OF FACIAL NERVE(WRVU 19.53) performed by Osman Barnett MD at [facility] MAIN OR ??? PRO EXC SKIN MALIG 3.1-4CM FACE, FACIAL Left 02/20/2020 EXC MALIGNANT LESION, 3.1 TO 4.0CM, FACE (WRVU 4.34) performed by Osman Barnett MD at [facility] MAIN OR ? ? PRO EXC SKIN MALIG >4CM FACE, FACIAL Left 02/20/2020 EXC MALIGNANT LESION, >4.0CM, EARS (WRVU 6.26) performed by Osman Barnett MD at [facility] ??? PRO MICROSURG TECHNIQUES, REQ OPER MICROSCOPE N/A 02/20/2020 MICROSCOPE USE (WRVU 3.46) performed by Neo Gilman MD at [facility] MAIN OR ??? PRO MUSCLE-SKIN FLAP, TRUNK Left 02/20/2020 FLAP, MYOCUTANEOUS OR FASCIOCUTANEOUS, TRUNK (WRVU 19.86) performed by Osman Barnett MD at [facility] MAIN OR ??? PRO REMOVAL NODES, NECK, CERV MOD RAD Left 02/20/2020 @CERVICAL LYMPHADENECTOMY (MODIFIED RADICAL NECK DISSECTION) (WRVU 23.95) performed by Osman Barnett MD at [facility] MAIN OR ??? PRO RESECT TEMPORAL BONE, SPINNER OPEN END APPRCH Left 02/20/2020 @RESECTION TEMPORAL BONE, EXTERNAL APPROACH (WRVU 37.42) performed by Neo Gilman MD at [facility] Medications: Current Outpatient Medications on File Prior to Encounter Medication Sig Dispense Refill ??? prochlorperazine (Compazine) 10 mg Tablet Take 1 tablet by mouth every 6 hours as needed for Nausea. 30 tablet 3 ??? ondansetron (Zofran) 8 mg Tablet Take 1 tablet by mouth every 8 hours as needed for Nausea. Use if prochlorperazine is not effective. 20 tablet 3 ??? Ibuprofen 200 mg Capsule Take by mouth as needed. ??? clindamycin (CLEOCIN) 300 mg Capsule Take 1 capsule by mouth 3 times daily. (Patient not taking:Reported on 03/31/2020) 30 capsule 0 ??? white petrolatum-mineral oiL (Refresh-PM) Place 1 each into the left eye 2 times daily. 1 Tube 5 ??? carboxymethylcellulose (REFRESH PLUS) 0.5 % Dropperette Place 2 drops into both eyes 4 times daily. 2 Bottle 0 ??? HYDROcodone-acetaminophen ([place]) 5-325 mg Tablet Take 1 tablet by [...] facility-administered medications on file prior to encounter. Allergies: Penicillins and Codeine phosphate Social History and Habits: Social History Socioeconomic History ??? Marital status: Spouse name: Not on file ??? Number of children: Not on file ??? Years of education: Not on file ??? Highest education level: Not on file Occupational History ??? Occupation: retired Social Needs ??? Financial resource strain: Not on file ??? Food insecurity Worry: Not on file Inability: Not on file ??? Transportation needs Medical: Not on file Non-medical: Not on file Tobacco Use ??? Smoking status: Former Smoker Packs/day: 1.00 Years: 40.00 Pack years: 40.00 Types: Cigarettes Quit date: 01/08/2003 Years since quittin.2 ??? Smokeless tobacco: Never Used Substance and Sexual Activity ??? Alcohol use: No ??? Drug use: No ??? Sexual activity: Not on file Lifestyle ??? Physical activity Days per week: Not on file Minutes per session: Not on file ??? Stress: Not on file Relationships ??? Social connections Talks on phone: Not on file Gets together: Not on file Attends restorationism service: Not on file Active member of club or organization: Not on file Attends meetings of clubs or organizations: Not on file Relationship status: Not on file ??? Intimate partner violence Fear of current or ex partner: Not on file Emotionally abused: Not on file Physically abused: Not on file Forced sexual activity: Not on file Other Topics Concern ??? Do You live alone? Not Asked ??? Tobacco in Home Not Asked Social History Narrative (02/2020) lives with his of 49 years in [facility]. 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 Two adult sons live in this building and are involved in pt's care. Significant Family History: Family History Problem Relation Age of Onset ??? Other Father enlarged heart ??? Skin Cancer Brother 35 rapid dissemination; of metastatic disease Pertinent ROS: as per HPI Labs: Lab Results Component Value Date WBC 10.2 (H) 02/23/2020 HCT 32.5 (L) 02/23/2020 PLATELET 181 02/23/2020 INR 1.0 02/07/2020 BUN 15 02/23/2020 CREATININE 0.65 (L) 02/23/2020 ALKPHOS 55 02/20/2020 AST 17 02/20/2020 ALBUMIN 4.2 02/20/2020 BILITOT 0.7 02/20/2020 ALT 12 02/20/2020 PROT 6.1 02/20/2020 K 3.8 02/23/2020 Imaging: Physical Exam: Pending (to be performed in angio the day of procedure) ASA: Pending (to be assessed in angio the day of procedure) Mallampati Class: Pending (to be assessed in angio the day of procedure) Assessment: 69 y.o. 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 He is receiving adjuvant radiation and will be starting adjuvant chemotherapy; he presents to IR for mediport placement. Plan: Plan Planned procedure: Right-sided mediport placement for adjuvant chemotherapy Labs to be performed day of procedure: No labs Sedation: Moderate (Conscious sedation) Prophylactic antibiotic : Ancef Contrast: Omnipaque Additional medications for procedure: Lidocaine Medications to discontinue (and days held): None Planned access site: Right Hemithorax Position: Supine Cytopathology presence needed: No Consent: Pending Demetrius Obrien MD, PGY-2 04/07/20 9:47 AM Demetrius Obrien MD - 04/07/2020 9:39 AM EST Images from the original note were not included. 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 [facility] Radiology [120] Prefered insertion location: Right side Is the patient on anticoagulant / anitplatelet therapy ? No Reason for exam and clinical history: need for chemo access Presenting Diagnosis/ Complaint: Ward Santamaria is a 69 y.o. 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 He is receiving adjuvant radiation and will be starting adjuvant chemotherapy; he presents to IR for mediport placement. Past Medical/Surgical History: Patient Active Problem List Diagnosis Code ??? [...] ear, left C44.229 ??? Hearing loss H91.90 No past medical history on file. Past Surgical History: Procedure Laterality Date ??? KIDNEY STONE SURGERY ??? PRG SOMATOSENSORY TEST, ANY/ALL PER. NERVES, TRUNK OR HEAD N/A 02/20/2020 FACIAL NERVE MONITORING, SETUP PERIPHERAL (WRVU 0.54) performed by Osman Barnett MD at [facility] MAIN OR ??? PRO ADJ TISS TRANSFER/REARRANGEMENT ANY AREA 30.1-60 SQCM Left 02/20/2020 ADJACENT TISSUE TRANSFER OR REARRANGEMENT; 30.1 TO 60.0 SQ CM, THORAX (WRVU 12.65) performed by Osman Barnett MD at [facility] MAIN OR ??? PRO ADJ TISS TRANSFER/REARRANGEMENT ANY AREA EA ADDL 30SQCM Left 02/20/2020 ADJACENT TISSUE TRANSFER OR REARRANGEMENT; EA ADD'L 30.0 SQ CM, OR PART OF (WRVU 3.73) performed byOsman Barnett MD at [facility] MAIN OR ??? PRO COLONOSCOPY, REMV LESN, SNARE N/A 07/07/2015 COLONOSCOPY, POLYPECTOMY, REMOVAL LESION BY SNARE performed by Jose Manuel Heller MD at [facility] ENDOSCOPY ??? PRO EXC PAROTD, TOTAL, DISSECT 5TH NERV Left 02/20/2020 EXCISION OF PAROTID TUMOR OR PAROTID GLAND, TOTAL, WITH DISSECTION AND PRESERVATION OF FACIAL NERVE(WRVU 19.53) performed by Osman Barnett MD at [facility] MAIN OR ??? PRO EXC SKIN MALIG 3.1-4CM FACE, FACIAL Left 02/20/2020 EXC MALIGNANT LESION, 3.1 TO 4.0CM, FACE (WRVU 4.34) performed by Osman Barnett MD at [facility] MAIN OR ? ? PRO EXC SKIN MALIG >4CM FACE, FACIAL Left 02/20/2020 EXC MALIGNANT LESION, >4.0CM, EARS (WRVU 6.26) performed by Osman Barnett MD at [facility] ??? PRO MICROSURG TECHNIQUES, REQ OPER MICROSCOPE N/A 02/20/2020 MICROSCOPE USE (WRVU 3.46) performed by Neo Gilman MD at [facility] MAIN OR ??? PRO MUSCLE-SKIN FLAP, TRUNK Left 02/20/2020 FLAP, MYOCUTANEOUS OR FASCIOCUTANEOUS, TRUNK (WRVU 19.86) performed by Osman Barnett MD at [facility] MAIN OR ??? PRO REMOVAL NODES, NECK, CERV MOD RAD Left 02/20/2020 @CERVICAL LYMPHADENECTOMY (MODIFIED RADICAL NECK DISSECTION) (WRVU 23.95) performed by Osman Barnett MD at [facility] MAIN OR ??? PRO RESECT TEMPORAL BONE, SPINNER OPEN END APPRCH Left 02/20/2020 @RESECTION TEMPORAL BONE, EXTERNAL APPROACH (WRVU 37.42) performed by Neo Gilman MD at [facility] Medications: Current Outpatient Medications on File Prior to Encounter Medication Sig Dispense Refill ??? prochlorperazine (Compazine) 10 mg Tablet Take 1 tablet by mouth every 6 hours as needed for Nausea. 30 tablet 3 ??? ondansetron (Zofran) 8 mg Tablet Take 1 tablet by mouth every 8 hours as needed for Nausea. Use if prochlorperazine is not effective. 20 tablet 3 ??? Ibuprofen 200 mg Capsule Take by mouth as needed. ??? clindamycin (CLEOCIN) 300 mg Capsule Take 1 capsule by mouth 3 times daily. (Patient not taking:Reported on 03/31/2020) 30 capsule 0 ??? white petrolatum-mineral oiL (Refresh-PM) Place 1 each into the left eye 2 times daily. 1 Tube 5 ??? carboxymethylcellulose (REFRESH PLUS) 0.5 % Dropperette Place 2 drops into both eyes 4 times daily. 2 Bottle 0 ??? HYDROcodone-acetaminophen ([place]) 5-325 mg Tablet Take 1 tablet by [...] facility-administered medications on file prior to encounter. Allergies: Penicillins and Codeine phosphate Social History and Habits: Social History Socioeconomic History ??? Marital status: Spouse name: Not on file ??? Number of children: Not on file ??? Years of education: Not on file ??? Highest education level: Not on file Occupational History ??? Occupation: retired Social Needs ??? Financial resource strain: Not on file ??? Food insecurity Worry: Not on file Inability: Not on file ??? Transportation needs Medical: Not on file Non-medical: Not on file Tobacco Use ??? Smoking status: Former Smoker Packs/day: 1.00 Years: 40.00 Pack years: 40.00 Types: Cigarettes Quit date: 01/08/2003 Years since quittin.2 ??? Smokeless tobacco: Never Used Substance and Sexual Activity ??? Alcohol use: No ??? Drug use: No ??? Sexual activity: Not on file Lifestyle ??? Physical activity Days per week: Not on file Minutes per session: Not on file ??? Stress: Not on file Relationships ??? Social connections Talks on phone: Not on file Gets together: Not on file Attends restorationism service: Not on file Active member of club or organization: Not on file Attends meetings of clubs or organizations: Not on file Relationship status: Not on file ??? Intimate partner violence Fear of current or ex partner: Not on file Emotionally abused: Not on file Physically abused: Not on file Forced sexual activity: Not on file Other Topics Concern ??? Do You live alone? Not Asked ??? Tobacco in Home Not Asked Social History Narrative (02/2020) lives with his of 49 years in [facility]. 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 Two adult sons live in this building and are involved in pt's care. Significant Family History: Family History Problem Relation Age of Onset ??? Other Father enlarged heart ??? Skin Cancer Brother 35 rapid dissemination; of metastatic disease Pertinent ROS: as per HPI Labs: Lab Results Component Value Date WBC 10.2 (H) 02/23/2020 HCT 32.5 (L) 02/23/2020 PLATELET 181 02/23/2020 INR 1.0 02/07/2020 BUN 15 02/23/2020 CREATININE 0.65 (L) 02/23/2020 ALKPHOS 55 02/20/2020 AST 17 02/20/2020 ALBUMIN 4.2 02/20/2020 BILITOT 0.7 02/20/2020 ALT 12 02/20/2020 PROT 6.1 02/20/2020 K 3.8 02/23/2020 Imaging: Physical Exam: Pending (to be performed in angio the day of procedure) ASA: Pending (to be assessed in angio the day of procedure) Mallampati Class: Pending (to be assessed in angio the day of procedure) Assessment: 69 y.o. 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 He is receiving adjuvant radiation and will be starting adjuvant chemotherapy; he presents to IR for mediport placement. Plan: Plan Planned procedure: Right-sided mediport placement for adjuvant chemotherapy Labs to be performed day of procedure: No labs Sedation: Moderate (Conscious sedation) Prophylactic antibiotic : Ancef Contrast: Omnipaque Additional medications for procedure: Lidocaine Medications to discontinue (and days held): None Planned access site: Right Hemithorax Position: Supine Cytopathology presence needed: No Consent: Pending Demetrius Obrien MD, PGY-2 04/07/20 9:47 AM documented in this encounter Plan of Treatment Upcoming Encounters Date Type Specialty Care Team Description 10/21/2021 Infusion Hematology and Oncology 11/09/2021 Office Visit Hematology and Oncology Alhaji Ritchie MD [facility] [address] ONCOLOGY DEPT. [place], [place] [address] (Wo rk) 11/09/2021 Infusion Hematology and Oncology 12/10/2021 Office Visit Dermatology Silas Walters MD [address] DERMATOLOGY [place], [place] [address] (Jin rk) 09/19/2039 Hospital Encounter Surgery Osman Barnett MD [facility] OTOLARYNGOLOGY D EPT. [place], [place] [address] (Jin rk) Scheduled Procedures Name [...] Date/Time Associated Diagnosis Comme nts IR MEDIPORT Routine 04/08/2020 5:06 PM Squamous cell Results for this PLACEMENT EST carcinoma of ear, procedure are in left the results section. documented in this encounter Results IR Mediport Placement (04/08/2020 5:06 PM EST) Anatomical Region Laterality Modality X-Ray Angiography Specimen (Source) Anatomical Location Collection Method / Collectio n Time Received Time / Laterality Volume Narrative 05/08/2020 9:04 AM EST INTERVENTIONAL RADIOLOGY PROCEDURE NOTE Procedure: 1) US guided right internal jugular vein access 2) Placement of right chest POWER port. Indication for Procedure: 69 y.o. male w ith moderately-differentiated SCC of the left parotid gland s/p surgical r esection 02/20/20. He is receiving adjuvant radiation and will be starting adjuvant chemotherapy; he presents to IR for mediport placement as durable venous access for chemotherapy. Consent: After discussing the risks (inc luding infection, hemorrhage, damage to surrounding structures, respir atory depression) and benefits, the patient consented to the procedure. Method of Sedation: ??See Anesthesia not e. ??1% lidocaine was used for local analgesia. Technique: Prior to beginning the procedure, a krista león time out Moment of Truth was performed to confirm all mcneal aspects (including the patient's identity, informed consent, medical tete rd number, allergies, planned procedure and laterality if appropriate) all of which were correct. The patient received a dose of antibiotics f or prophylaxis. After maximal sterile barrier technique preparation of the right neck and upper chest, ultrasound was used to localize the righ t internal jugular vein. ??1% lidocaine SQ was administered for local anesthesia, and a 21 ga needle was advanced under ultrasound guidance into the right internal jugular and a 0.018 wire was advanced into SVC. ??The remainder of the procedure was performed with fluoroscopic guidance. A 4 Fr introducer sheath was placed and the wire exchanged for a 0.035 3J w katherine. The wire was advanced into the IVC. Lidocaine and Bupivacaine was t hen infiltrated in a caudal-lateral direction, and infiltrate d over a 2 cm infraclavicular area for pocket creation. ??A 1.5 cm incision was made, and with blunt dissection a pocket created. ??The port was attached to the catheter, placed into the pocket. ??A tunneler was then used to bring the catheter through the tunnel to the venotomy site. The 4 Fr introducer sheath was exchanged for a peel-away sheath over th e wire. The wire and inner dilator were removed and the catheter advanced i nto the SVC. ??The sheath was removed. ??The port flushed and aspirate d well. ??The pocket was closed using a two layer technique (2-0 vicryl deep interrupted and 4-0 vicryl running subcuticular). The skin closed w ith indermil. The port was NOT left accessed. Medications: Lidocaine 1% <10 mL SQ, Bup ivacaine-Epinephrine 0.25 %-1:200,000 injection <20 mL; Antibiotic Prophylaxis: Ancef ??g IV Contrast: none EBL: <5 cc Complications: ??No immediate Findings: 1) US exam of the right IJV showed a wid yamileth patent compressible vessel. 2) New right chest port with the cathete r tip at the SVC. Impression: Placement of POWER port in r ight chest. Plan/Disposition: 1) To Angio recovery room, may discharge to HOME when meets criteria. 2) Port ready for use. Procedure performed by Dr. Avni crabtree, with assistance of JACQUE Gunderson Dr[address] not present. Ashok Ritchie MD IMG IR ORDERABLES documented in this encounter Visit Diagnoses Diagnosis Squamous cell carcinoma of ear, left documented in this encounter Care Teams Administrative Hearing Officer Relationship Specialty Start Date End Date Tara Joya MD PCP - General Family Medicine 05/16/[address] [place] [address] documented as of this encounter
--- OUTSIDE RECORDS SUMMARY | 2021-10-21 08:00 | XMS_ITS | Encounter Summary ---
:1950 Author Organization [facility] [place] [address] Care Team Providers Name Role Phone Tara Joya MD Primary Care Provider [phone] Reason for Visit Reason Comments IV Access Mediport access Encounter Details Date Type Department Care Team Description 04/23/2020 Infusion Hematology Oncology at [facility] cell cancer [address] [place] [address] [phone] Social History Tobacco Use Types Packs/Day Years Used Date Former Smoker Cigarettes 1 40 Quit: 01/09/20 03 Smokeless Tobacco: Never Used Alcohol Use Standard Drinks/Week Comments No 0 (1 standard drink = 0.6 oz pure alcoho l) Sex Assigned at Date Recorded Not on file documented as of this encounter Progress Notes Eboni Paz RN - 04/23/2020 2:30 PM EST INFUSION THERAPY ADMINISTRATION NOTES DIAGNOSIS: 1. Basal cell cancer REASON FOR VISIT: MEDIPORT ACCESS FOR SIM IV ACCESS: Mediport GAUGE: 19G BLOOD RETURN: yes ANY S/S OF INFECTION/EXTRAVASATIONS: no signs of IV complications observed IV FLUSHED WITH: 20cc NS and 500 units Heparin IV DISCONTINUED: @ 1620 ASSESSMENT: Patient tolerated treatment well. PLAN: Return to clinic per routine. documented in this encounter Plan of Treatment Upcoming Encounters Date Type Specialty Care Team Description 10/21/2021 Infusion Hematology and Oncology 11/09/2021 Office Visit Hematology and Oncology Alhaji Ritchie MD [facility] DR ONCOLOGY DEPT. [place], [place] [address] (Wo rk) 11/09/2021 Infusion Hematology and Oncology 12/10/2021 Office Visit Dermatology Silas Walters MD [address] DERMATOLOGY [place], [place] [address] (Wo rk) 09/19/2039 Hospital Encounter Surgery Osman Barnett MD [facility] OTOLARYNGOLOGY D EPT. [place], [place] [address] (Wo rk) Scheduled Procedures Name [...] as of this encounter Visit Diagnoses Diagnosis Basal cell cancer Basal cell carcinoma of skin, site unspe cified documented in this encounter Care Teams Steel Erector Apprentice Relationship Specialty Start Date End Date Tara Joya MD PCP - General Family Medicine 05/16/[address] [place] [address] documented as of this encounter
--- OUTSIDE RECORDS SUMMARY | 2021-10-21 08:00 | XMS_ITS | Encounter Summary ---
:1950 Author Organization [facility] [place] [address] Care Team Providers Name Role Phone Tara Joya MD Primary Care Provider [phone] Reason for Visit Diagnostic Test (Routine) - Closed Specialty Diagnoses / Procedures Referred By Contact Refer red To Contact Radiology Diagnoses Squamous cell carcinoma of ear, left Ashok Ritchie MD [facility] Interventionl Rad Procedures IR Mediport Placement [facility] [place] [address] [place] [address] Referral ID Status Reason Start Date Expiration Date Visits V isits Requested Authorized [id number] Closed Specialty 03/10/2020 09/08/2021 1 1 Service Requested Encounter Details Date Type Department Care Team Description 04/09/2020 Hospital Encounter Radiology at [facility] Ashok Ritchie, Canceled (P-CHANGE [facility] PROVIDER) [facility] [id number] ONCOLOGY DEPT. [phone] [place] [address] Social History Tobacco Use Types Packs/Day Years [...] Dropperette daily. documented as of this encounter Plan of Treatment Upcoming Encounters Date Type Specialty Care Team Description 10/21/2021 Infusion Hematology and Oncology 11/09/2021 Office Visit Hematology and Oncology Alhaji Ritchie MD [facility] DR ONCOLOGY DEPT. [place], [place] [address] (Jin carson) 11/09/2021 Infusion Hematology and Oncology 12/10/2021 Office Visit Dermatology Silas Walters MD [address] [place] [address] DERMATOLOGY [place], [place] [address] (Wo rk) 09/19/2039 Hospital Encounter Surgery Osman Barnett MD [facility] OTOLARYNGOLOGY Sharlene EPT. [place], [place] [address] (Wo rk) Scheduled Procedures Name [...] ORDERABLES documented in this encounter Visit Diagnoses Not on filedocumented in this encounter Care Teams Stave Planer Tender Relationship Specialty Start Date End Date Tara Joya MD PCP - General Family Medicine 05/16/[address] [place] [address] documented as of this encounter
--- OUTSIDE RECORDS SUMMARY | 2021-10-21 08:00 | XMS_ITS | Encounter Summary ---
:1950 Author Organization [facility] [place] [address] Care Team Providers Name Role Phone Tara Joya MD Primary Care Provider [phone] Encounter Details Date Type Department Care Team Description 04/28/2020 Notes Only Hematology/Oncology at Mariela Gallardo MSW [facility] OFFICE OF CARE [address] [place] [address] [phone] Social History Tobacco Use Types Packs/Day Years Used Date Former Smoker Cigarettes 1 40 Quit: 01/09/20 03 Smokeless Tobacco: Never Used Alcohol Use Standard Drinks/Week Comments No 0 (1 standard drink = 0.6 oz pure alcoho l) Sex Assigned at Date Recorded Not on file documented as of this encounter Progress Notes Mariela Gallardo MSW - 04/28/2020 12:16 PM EST Follow up with pt during his infusion visit today. Pt reports he is doing as best he can. He indicated the RT treatments were challenging for him as he has mouth sores. He indicated his continues as his primary support and she is keeping a good eye on him. Offered support. Pt did not identify any new needs at this time. Reminded pt of INTERMEDIATE FRAME TENDER availability and contact information. Will continue to follow for support and resources. documented in this encounter Plan of Treatment Upcoming Encounters Date Type Specialty Care Team Description 10/21/2021 Infusion Hematology and Oncology 11/09/2021 Office Visit Hematology and Oncology Alhaji Ritchie MD [facility] DR ONCOLOGY DEPT. [place], [place] [address] (Wo rk) 11/09/2021 Infusion Hematology and Oncology 12/10/2021 Office Visit Dermatology Silas Walters MD [address] DERMATOLOGY [place], [place] [address] (Wo rk) 09/19/2039 Hospital Encounter Surgery Osman Barnett MD [facility] OTOLARYNGOLOGY D EPT. [place], [place] [address] (Wo rk) Scheduled Procedures Name [...] on filedocumented in this encounter Care Teams Education Department Chair Relationship Specialty Start Date End Date Tara Joya MD PCP - General Family Medicine 05/16/[address] [place] [address] documented as of this encounter
--- OUTSIDE RECORDS SUMMARY | 2021-10-21 08:00 | XMS_ITS | Encounter Summary ---
:1950 Author Organization [facility] [place] [address] Care Team Providers Name Role Phone Tara Joya MD Primary Care Provider [phone] Reason for Visit Auth/Cert Specialty Diagnoses / Procedures Referred By Contact Refer red To Contact Diagnoses Squamous cell carcinoma of ear, left Procedures VENOUS ACCESS PLACEMENT Referral ID Status Reason Start Date Expiration Date Visits Requ ested Visits Authorized [id number] 1 1 Encounter Details Date Type Department Care Team Description 04/08/2020 Surgery [facility] Steve Aldridge MD VENOUS ACCESS PLACEMENT [place] [address] DIAGNOSTIC RADIOLOGY [phone] [place], [place] [address] (Wo rk) Social History Tobacco [...] Sign Reading Time Taken Comments Blood Pressure 158/79 04/08/2020 12:07 PM EST Pulse 68 04/08/2020 12:07 PM EST Temperature - - Respiratory Rate 16 04/08/2020 12:07 PM EST Oxygen Saturation 100% 04/08/2020 12:07 PM EST Inhaled Oxygen Concentration - - Weight - - Height - - Body Mass Index - - documented in this encounter Discharge Instructions Discharge InstructionsCastillo Lane RN - 04/08/2020 5:35 PM EST Images from the original note were not included. [facility] and Interventional Radiology Discharge Instructions for your Chest Port Removal Activity: ??? Relax for the next 24 hours Diet: ??? Drink plenty of fluids. ??? Resume your regular diet Bandage: There is a sterile dressing consisting of small gauze with a clear dressing (Tegaderm or [id number]). This dressing should be left in place [...] not peel them off. There may be Edcouch-harvey (skin glue) also, allow this to flake [...] someone drive you to the nearest Emergency De partment, or call 911. ??? If you develop pain, redness, drainage or swelling at or around chest incision site. ??? If you develop a fever equal to or greater than 101 degrees Fahrenheit. When to call the Interventional Radiology Department: Please call with any questions or concerns. Ifit is during regular office hours, please call [phone]. If it is after regular office hours, oron weekends or holidays, please call [phone] and ask to speak to the Stand Grinder on callfor Interventional Radiology. You have received [...] occurs, please contact your M. D. Revised 04/04/15 [facility] Discharge Instructions for your Chest Port Removal Activity: ??? Relax for the next 24 hours Diet: ??? Drink plenty of fluids. ??? Resume your regular diet Bandage: There is a sterile dressing consisting of small gauze with a clear dressing (Tegaderm or [id number]). This dressing should be left in place [...] not peel them off. There may be Edcouch-harvey (skin glue) also, allow this to flake [...] [facility], or call 911. ??? If you develop pain, redness, drainage or swelling at or around chest incision site. ??? If you develop a fever equal to or greater than 101 degrees Fahrenheit. When to call the Interventional Radiology Department: Please call with any questions or concerns. Ifit is during regular office hours, please call [phone]. If it is after regular office hours, oron weekends or holidays, please call [phone] and ask to speak to the Stand Grinder on callfor Interventional Radiology. You have received [...] occurs, please contact your M. D. Revised 04/04/15 documented in this encounter Medications at Time [...] documented as of this encounter Progress Notes Castillo Lane RN - 04/08/2020 6:02 PM EST Patient and stated understanding of discharge instructions and had no question at this time. documented in this encounter Plan of Treatment Upcoming Encounters Date Type Specialty Care Team Description 10/21/2021 Infusion Hematology and Oncology 11/09/2021 Office Visit Hematology and Oncology Alhaji Ritchie MD [facility] DR ONCOLOGY DEPT. [place], [place] [address] (Wo yamileth) 11/09/2021 Infusion Hematology and Oncology 12/10/2021 Office Visit Dermatology Silas Walters MD [address] [facility] DERMATOLOGY [place], [place] [address] (Wo yamileth) 09/19/2039 Hospital Encounter Surgery Osman Barnett MD [facility] OTOLARYNGOLOGY Sharlene EPT. [place], [place] [address] (Wo rk) Scheduled Procedures Name [...] Name Priority Date/Time Associated Diagnosis Comme nts VENOUS ACCESS 04/08/2020 3:10 PM EST Squamous cell car cinoma PLACEMENT of ear, left documented in this encounter Visit Diagnoses Not on filedocumented in this encounter Administered Medications Inactive Administered Medications - up to 3 most recent administrations Medication Order MAR Action Action Date Dose Rate Site acetaminophen (Tylenol) tablet Given 04/08/2020 12:15 PM EST 1,0 00 mg 1,000 mg 1,000 mg, Oral, ONCE, 1 dose, On Tue04/08/20 at 1230, Administer with SIP of H2O only., Day of Surgery (Day of Procedure), Routine lidocaine (Xylocaine) 1% (10 mg/mL) inje ction 3 mg 3 mg (0.3 mL), Subcutaneous, ONCE PRN, 1 dose, Startin g on Tue04/08/20 at 1203, Until Tue04/08/20 at 2019, for discomfort with PIV ins ertion, Routine sodium chloride 0.9 % (flush) flush 5 mL 5 mL, Intravenous, 2 TIMES DAILY, First dose on Tue at 1230, Until Discontinued, Routine sodium chloride 0.9 % (flush) flush 5-20 mL 5-20 mL, Intravenous, EVERY 1 MIN PRN, S tarting on Tue04/08/20 at 1203, Until Tue04/08/20 at 2019, flush, Flush pertains t o all indwelling lines. Flush per protocol found in the job aid using the link prov ided on this medication record., Routine documented in this encounter Active and Recently Administered Medications Times are shown in EST. Scheduled Medication Order 04/06/2020 04/07/2020 04/08/2020 acetaminophen (Tylenol) tablet 1,000 mg (COMPLETED) 1215 (Given - Provider: Kelli Moya RN) 1,000 mg, Oral, ONCE, 1 dose, Tue 1 at 1230, Administer with SIP of H2O only., Day of Surgery (Day of Procedure), Routine sodium chloride 0.9 % (flush) flush 5 mL 1230 (Due) 5 mL, Intravenous, 2 TIMES DAILY, First dose on Tue04/08/20 at 1230, Until Discontinued, Routine Continuous Medication Order 04/06/2020 04/07/2020 04/08/2020 lactated ringers infusion (CANCELED) 1510 (New Bag - Provider: Kandy Fitzpatrick CRNA)1625 (Anesthesia Volume Adjustment - Provider: Kandy Fitzpatrick CRNA)1709 (Stopped - Provider: Kandy Fitzpatrick CRNA) 1,000 mL, at 100 mL/hr, Intravenous, CON TINUOUS, Starting Tue04/08/20 at 1230, Until Tue04/08/20 at 1804, Day of Surgery (Day of Procedure) PRN Medication Order 04/06/2020 04/07/2020 04/08/2020 lidocaine (Xylocaine) 1% (10 mg/mL) injection 3 mg 3 mg (0.3 mL), Subcutaneous, ONCE PRN, 1 dose, Starting Tue04/08/20 at 1203, Until Tue04/08/20 at 2019, for discomfort with PIV insertion, Routine sodium chloride 0.9 % (flush) flush 5-20 mL 5-20 mL, Intravenous, EVERY 1 MIN PRN, S tarting Tue04/08/20 at 1203, Until Tue04/08/20 at 2019, flush, Flush pertains to all indwelling lines. Flush per protocol found in the job aid using the link provided on this medication record., Routine documented in this encounter Care Teams Termite Renewal Inspector Relationship Specialty Start Date End Date Tara Joya MD PCP - General Family Medicine 05/16/[address] [place] [address] documented as of this encounter
--- OUTSIDE RECORDS SUMMARY | 2021-10-21 08:00 | XMS_ITS | Encounter Summary ---
:1950 Author Organization [facility] [place] [address] Care Team Providers Name Role Phone Tara Joya MD Primary Care Provider [phone] Reason for Visit Speech Therapy (Routine) - Closed Specialty Diagnoses / Procedures Referred By Contact Refer red To Contact Speech Pathology / Diagnoses Squamous cell carcinoma, ear, left Urbano Beck, [facility] Industry Analyst Rehab Speech Therapy PA [facility] [address] [place] Ot[place]aryngology [id number] [place] [address] Referral ID Status Reason Start Date Expiration Date Visits V isits Requested Authorized [id number] Closed Evaluate and 03/31/2020 03/31/2021 1 1 Treat Encounter Details Date Type Department Care Team Description 04/10/2020 Office Visit Speech Therapy at [facility] Naveen Hou Dysphagia, unspecified type; [facility] LONG Mendoza Parotid m ass; Drive Squamous cell carcinoma of [place], [place] [id number] Social History Tobacco Use Types Packs/Day Years Used Date Former Smoker Cigarettes 1 40 Quit: 01/09/20 03 Smokeless Tobacco: Never Used Alcohol Use Standard Drinks/Week Comments No 0 (1 standard drink = 0.6 oz pure alcoho l) Sex Assigned at Date Recorded Not on file documented as of this encounter Miscellaneous Notes Initial Evaluation - Naveen Hou SLP - 04/10/2020 1:00 PM EST Office Swallow Evaluation Speech-Language Pathology Patient Name: Ward Santamaria Date of : 1950 Referring MD: Urbano Beck Date Seen by MD: 03/31/20 Diagnosis: Dysphagia Date of Onset: November 2019 Date of Evaluation: 04/10/2020 Total Treatment Time: 76 minutes Certification Period: 04/10/2020-07/09/2020 Total Timed Code Treatment: 0 minutes KX Modifier used beginning date: Not applied Pertinent History: Pt is a 69 year old with a past medical history significant for hepatitis C, bipolar affective disorder, tobacco history, and multiple skin malignancies (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 Pt is now s/p left ear tumor resection, total parotidectomy, selective neck dissection (levels 1B, 2A, 2B, 3), left pectoralis myocutaneous flap reconstruction on02/20/20. Following procedure, Pt developed dehiscence along the superior anterior aspect and the posterior superior aspect extending along the auricle remnant. Pt undergoing regular packing changes. The NCC tumor board has recommended adjuvant chemoradiotherapy, which is to begin the week of 04/14/20.Pt referred by Urbano Beck in ENT for a swallow evaluation to establish baseline function prior to radiation treatment. Operative findings: Large tumor involving the lower half of the ear extending down into the ear canal and extending to involve the postauricular skin as well as the preauricular skin. ??The total involvement of tumor wasabout 8 x 8 cm with 5 cm involving the ear and 3 cm involving the facial skin. ??Tumor was involvingthe entire parotid gland and the lower division of the facial nerve was encased with tumor and couldnot be preserved. ??We were able to preserve the upper division however due to significant manipulation of the nerve the nerve did not stimulate at the main trunk once tumor was removed. ??Tumor extended into the deep lobe and the parapharyngeal space and resection did include the styloid bone with the muscular attachments. ??Branches of the carotid artery were also identified and ligated coming off of the external carotid. ??Tumor abutted the masseter muscle as well as the glenoid fossa. S: Patients present for support. Pt. denies pain at this time. Pt alert and cooperative with study. Pt denies loss of sensation and drooling. Pt initiating chemoradiation this coming Tuesday. Pt reports he needs to cup up his food really small to eat it. Notes that it is a little harder to chew, more so since operation. States he is missing several teeth that were pulled prior to carcinoma diagnosis. Finds that he may cough on dry foods. He makes sure his breads are softer. He reports that he is notreally avoiding anything at this time, just making sure he isn't taking as big of bites. His finds that he isn't eating as hard foods. Well before the procedure, infrequently he would notice food getting stuck in his throat. Will effectively clear with liquid wash. Notes he can't open his mouth as far. Denies difficulty with swallowing liquids. He has not been seen by a speech-language pathologist to date. He had been provided gentle stretches, ice, and heat by an occupational therapist from [facility]. Complains of dry mouth. Uses a special toothpaste for xerostomia. Denies weight loss. Reports 4-5 lb weight gain. O: Medical History: Active Ambulatory Problems Diagnosis Date Noted ??? CAD (coronary artery disease) 01/03/2013 ??? Hyperlipemia 01/03/2013 ??? Bipolar affective disorder 01/03/2013 ??? BPH (benign prostatic hyperplasia) 01/03/2013 ??? Psoriasis 01/03/2013 ??? H/O drug abuse 01/03/2013 ??? Hepatitis C 01/03/2013 ??? Basal cell cancer 01/03/2013 ??? Hypertriglyceridemia 01/03/2013 ??? AK (actinic keratosis) 01/22/2014 ??? Basal cell carcinoma 01/22/2014 ??? Seborrheic keratosis, inflamed 01/23/2015 ??? PTTD (posterior tibial tendon dysfunction) 04/08/2015 ??? Left foot pain 07/11/2015 ??? History of basal cell carcinoma 11/01/2017 ??? Mass of left ear 01/31/2020 ??? Parotid mass 01/31/2020 ??? Squamous cell carcinoma of ear, left 02/20/2020 ??? Hearing loss 03/10/2020 Resolved Ambulatory Problems Diagnosis Date Noted ??? No Resolved Ambulatory Problems No Additional Past Medical History Past Surgical History: Procedure Laterality Date ??? KIDNEY STONE SURGERY ??? PRG SOMATOSENSORY TEST, ANY/ALL PER. NERVES, TRUNK OR HEAD N/A 02/20/2020 FACIAL NERVE MONITORING, SETUP PERIPHERAL (WRVU 0.54) performed by Osman Barnett MD at [facility] MAIN OR ??? PRO ADJ TISS TRANSFER/REARRANGEMENT ANY AREA 30.1-60 SQCM Left 02/20/2020 ADJACENT TISSUE TRANSFER OR REARRANGEMENT; 30.1 TO 60.0 SQ CM, THORAX (WRVU 12.65) performed by Osman Barnett MD at [facility] MAIN OR ??? PRO ADJ TISS TRANSFER/REARRANGEMENT ANY AREA EA ADDL 30SQCM Left 02/20/2020 ADJACENT TISSUE TRANSFER OR REARRANGEMENT; EA ADD'L 30.0 SQ CM, OR PART OF (WRVU 3.73) performed byOsman Barnett MD at [facility] MAIN OR ??? PRO COLONOSCOPY, REMV LESN, SNARE N/A 07/07/2015 COLONOSCOPY, POLYPECTOMY, REMOVAL LESION BY SNARE performed by Jose Manuel Heller MD at [facility] ENDOSCOPY ??? PRO EXC PAROTD, TOTAL, DISSECT 5TH NERV Left 02/20/2020 EXCISION OF PAROTID TUMOR OR PAROTID GLAND, TOTAL, WITH DISSECTION AND PRESERVATION OF FACIAL NERVE(WRVU 19.53) performed by Osman Barnett MD at [facility] MAIN OR ??? PRO EXC SKIN MALIG 3.1-4CM FACE, FACIAL Left 02/20/2020 EXC MALIGNANT LESION, 3.1 TO 4.0CM, FACE (WRVU 4.34) performed by Osman Barnett MD at [facility] MAIN OR ? ? PRO EXC SKIN MALIG >4CM FACE, FACIAL Left 02/20/2020 EXC MALIGNANT LESION, >4.0CM, EARS (WRVU 6.26) performed by Osman Barnett MD at [facility] [place] ??? PRO MICROSURG TECHNIQUES, REQ OPER MICROSCOPE N/A 02/20/2020 MICROSCOPE USE (WRVU 3.46) performed by Neo Gilman MD at [facility] MAIN OR ??? PRO MUSCLE-SKIN FLAP, TRUNK Left 02/20/2020 FLAP, MYOCUTANEOUS OR FASCIOCUTANEOUS, TRUNK (WRVU 19.86) performed by Osman Barnett MD at [facility] MAIN OR ??? PRO REMOVAL NODES, NECK, CERV MOD RAD Left 02/20/2020 @CERVICAL LYMPHADENECTOMY (MODIFIED RADICAL NECK DISSECTION) (WRVU 23.95) performed by Osman Barnett MD at [facility] MAIN OR ??? PRO RESECT TEMPORAL BONE, PRACTICE REPRESENTATIVE APPRCH Left 02/20/2020 @RESECTION TEMPORAL BONE, EXTERNAL APPROACH (VU 37.42) [facility] Allerg[facility] Allergen Reactions ??? Penicillins rash ??? Codeine Phosphate Rash Medications: ??? prochlorperazine (Compazine) 10 mg Tablet ??? ondansetron (Zofran) 8 mg Tablet ??? Ibuprofen 200 mg Capsule ??? white petrolatum-mineral oiL (Refresh-PM) ??? carboxymethylcellulose (REFRESH PLUS) 0.5 % Dropperette ??? nitroGLYcerin (NITROSTAT) 0.4 mg Tablet, Sublingual ??? ABILIFY 15 mg Tablet ??? metoprolol succinate (TOPROL-XL) 50 mg 24 hr tablet ??? atorvastatin (LIPITOR) 20 mg tablet ??? fenofibrate (TRICOR) 145 mg tablet ??? lamoTRIgine (LAMICTAL) 200 mg tablet ??? amitriptyline (ELAVIL) 50 mg tablet ??? aspirin 81 mg EC tablet Current Diet: No diet orders on file Cognitive-Linguistic Status: alert, Ox3, able to follow simple directions and respond to basic questions Respiratory Status: pt on room air; Feeding / Oral Care Status: pt independent; Seating and Positioning: pt able to sit up with head midline without assistance; Vision: Wears glasses; Hearing: Hearing is not good; Left hearing totally gone; Hearing aid in right side; Not wearing currently; Difficult fit Eating Assessment Tool (EAT-10) ( A self-administered, symptom-specific outcome instrument for the subjective assessment of dysphagia) Rating Scale: 0=No problem; 4=Severe problem My swallowing problem has caused me to lose weight. 0 My swallowing problem interferes with my ability to go out for meals. 0 Swallowing liquids takes extra effort. 2 Easier to drink with a straw Swallowing solids takes extra effort. 2 Swallowing pills takes extra effort. 0 Swallowing is painful. 0 The pleasure of eating is affected by my swallowing. 2 When I swallow food sticks in my throat. 2; With liquid wash clears I cough when I eat. 3 Occasional Swallowing is stressful. 0 Total EAT-10 Score 11/40 A self perceived severity score > 3 is abnormal and indicative of the presence of swallowing difficulties. Debbie MEDINA, Cathy DA, Henrry CJ, et al. Validity and Reliability of the Eating Assessment Tool (EAT-10). Annals of Otology, Rhinology & Laryngology. 2008;117(12):919-924. Reflux Symptom Index (RSI) An outcome instrument to assess symptoms in patients with laryngopharyngeal reflux Rating scale: 0=No problem; 5=Severe Problem Hoarseness or a problem with your voice 0 Clearing your throat 0 Excess throat mucus or post nasal drip 0 Difficulty swallowing food, liquids or pills 1 Coughing after you ate or after lying down 3 Breathing difficulties or choking episode 1 Troublesome or annoying cough 1 Sensations of something sticking in your throat or a lump in your throat 2 Heartburn, chest pain, indigestion or stomach acid coming up 0 Total composite score: 8 A RSI score of >12 is considered to be abnormal Reference: Abby Lewis., José, Dwight N., & Shonda Up. (2002). Validity and reliability of the reflux symptom index (RSI). Journal of voice, 16(2), 274-277. -Pt reports feeling reflux symptoms once every few months while sleeping. Oral / Laryngeal Mechanism Clinical Assessment: ?? Lingual: Tongue protrudes midline. Adequate appearing ROM in all planes. Strength informally appears intact. ?? Labial / Buccal: Left sided facial droop present; Impaired left sided protrusion/retraction ?? Velar: Elevation/retraction present. Appears symmetric. ?? Sensation: Intact per Pt report. ?? Vocal fold function and airway protection: Volitional cough appears strong. Normal vocal quality.Vocal intensity appeared functional for conversation. ?? Speech Intelligibility: Speech intelligibility intact at the conversational level. Decreased articulatory precision with diadochokinesis rates. ?? Mucosa: Appears moist. ?? Dentition: Missing some dentition. ?? Jaw Excursion: Informally assessed to be intact (Three finger screen); Measured initially at 35 mm, 40 mm, and then 50 mm; Unclear if this is related to apprehension to open mouth wide ?? Left sided wrinkle of forehead absent movement ?? Eye droop left side; Cannot completely close left eye ?? Dressings present to surgical incisions. Seen earlier by Kylie Costello APRN in Otolaryngology prior to visit. Please see her note regarding flap presentation. Bolus Presentation(s) ?? thin liquid, via spoon, via cup, via straw (single and consecutive sips) ?? puree via spoon ?? dysphagia soft via spoon ?? regular small bite, large bite Oral Preparatory Phase Mastication: Mastication appears timely with solids that required mastication. Oral Transit: Normal. Bolus Cohesion: Mild inconsistent appearing decrease bolus cohesion on the left side with regular solids. Labial Seal / Loss: Negative. Oral Stasis: One episode of mild left sided anterior buccal stasis with regular solids. Oral stasis cleared with Pt performing independent finger sweep. Pharyngeal Phase Laryngeal Elevation: Functional to palpation. Vocal quality change: Without change in vocal quality following swallows. Cough: Without cough following swallows. Pt. complaint of food getting stuck: Negative. Esophageal Phase No overt clinical s/s of esophageal phase dysphagia noted during this evaluation. A: Dx: Mild oral phase deficits; No overt s/s of pharyngeal phase deficits with office swallow assessment Summary: Initial office swallow study completed prior to upcoming chemo-radiation initiation. Oral mechanism examination significant for facial nerve impairments known from recent carcinoma resection (please see above for details). During today's assessment, Pt presented with a mild oral phase deficit characterized by mild decrease in bolus formation/control with regular solids on the left side of the oral cavity that resulted in one episode of mild anterior buccal stasis. Stasis cleared with Pt independently performing finger sweep. No overt s/s of penetration/aspiration in the office setting. No complaints of globus sensation with any of the consistencies assessed. Discussed at length possible swallowing difficulties following chemo-radiation. Reviewed timeline ofpossible swallow effect related to chemo-radiation. Stressed need to keep taking oral nutrition as much as possible/safely and continue swallow exercise program throughout and following chemo-radiationto minimize effects of chemo-radiation. Presented Anneliese, Mendfrankien, effortful swallow, and falsetto exercises. Pt return demonstrated exercises to indicate understanding. Discussed the role of saliva, potential for worsening xerostomia (dry mouth), dry mouth products and the importance of staying ashydrated as possible. Pt expressed understanding. Discussed the potential impacts on the jaw ROM (tri smus) due to the location of his carcinoma and radiation and the potential for specific therapeutic intervention to target this. Pt will likely benefit from swallow re-evaluation three weeks into chemo- radiation. Provided Pt withpacket on above information. Due to Pt receiving his treatment for chemo-radiation through [facility], discussed due to distance if Pt would want to transfer care to that facility for speech-language pathology. Pt and stated they would consider the move following conversations with other providers. They acknowledge that it would be helpful to be seen closer to home. They have heard of the other clinician practicing there (Gilda Jameson) and provided this clinician with permission to discuss his case with her. Education: As above. P: RECOMMENDATIONS: ??? Regular diet with regular liquids for now. Add extra sauces/gravies/moisture to assist with bolus formation/control as needed. Sit upright for all PO intake; Small, single bites and sips; Remain upright for at least 30-45 minutes after PO intake ??? Chew on the right side if this is more comfortable and efficient. ??? Perform finger sweep or lingual sweep as needed to clear buccal stasis. ??? Alternate solids/liquids to keep oral cavity moist and assist with easier bolus formation/control and clearance of oral cavity if needed ??? Additional dry swallows or liquid wash to clear his occasional globus sensation; If this increases and/or is not effective contact HY[employer]OG[employer]OWER PLANT MANAGER ??? Swallow re-evaluation following three weeks of chemo-radiation therapy. ??? Swallow exercise program as recommended per handout provided. ??? Contact HYDROGEN POWER PLANT MANAGER and MD if swallowing changes occur Frequency of care: ??? Follow-up in 3 weeks following initiation of chemo-radiation. Call if changes and swallowing function occur to schedule a sooner appointment. ??? Pt. is in agreement with plan of care. Short-Term Goals: 07/09/2020 ??? Pt will demonstrate swallowing exercise program with accurate execution when provided with minimal modeling/cues. Long-Term Goals: 09/08/2020 Pt will independently demonstrate accurate execution with swallowing exercise program. Pt will maintain hydration / nutrition with optimal safety and efficiency. Thank you for this consult with this patient. Please feel free to contact me with any questions or concerns. Naveen Hou MS, CCC-HYDROG[employer] POWER PLANT MANAGER Speech-Language Pathologist Rehabilitation Medicine Pager:#[phone] documented in this encounter Plan of Treatment Upcoming Encounters Date Type Specialty Care Team Description 10/21/2021 Infusion Hematology and Oncology 11/09/2021 Office Visit Hematology and Oncology Alhaji Ritchie MD [facility] DR ONCOLOGY DEPT. [place], [place] [address] (Wo rk) 11/09/2021 Infusion Hematology and Oncology 12/10/2021 Office Visit Dermatology Silas Walters MD [address] [facility] DERMATOLOGY [place], [place] [address] (Wo rk) 09/19/2039 Hospital Encounter Surgery Osman Barnett MD [facility] OTOLARYNGOLOGY D EPT. [place], [place] [address] (Wo rk) Scheduled Procedures Name [...] Associated Diagnoses Order S chedule Referral to Speech Outpatient Referral Routine Squamous cell O rdered: Therapy carcinoma, ear, left 021 documented as of this encounter Visit Diagnoses Diagnosis Dysphagia, unspecified type Parotid mass Swelling, mass, or lump in head and neck Squamous cell carcinoma of ear, left documented in this encounter Care Teams Hat Forming Machine Feeder Relationship Specialty Start Date End Date Tara Joya MD PCP - General Family Medicine 05/16/[address] [place] [address] documented as of this encounter
--- OUTSIDE RECORDS SUMMARY | 2021-10-21 08:00 | XMS_ITS | Encounter Summary ---
:1950 [place] [address] Care Team Providers Name Role Phone Tara Joya MD Primary Care Provider [phone] Encounter Details Date Type Department Care Team Description 04/28/2020 Office Visit Hematology/Oncology Ashok Ritchie Squa mous cell carcinoma of ear, left; at [facility] Chemotherapy-induced nausea [address] [place] [phone] ONCOLOGY DEPT. [phone] [place], [place] [address] Social History Tobacco Use Types [...] Sign Reading Time Taken Comments Blood Pressure 145/76 04/28/2020 10:35 AM EST Pulse 77 04/28/2020 10:35 AM EST Temperature 37.1 ??C (98.8 ??F) 04/28/2020 10:35 AM EST Respiratory Rate 16 04/28/2020 10:35 AM EST Oxygen Saturation 100% 04/28/2020 10:35 AM EST Inhaled Oxygen Concentration - - Weight 74.4 kg (164 lb) 04/28/2020 10:35 AM EST Height 176.5 cm (5' 9.49) 04/28/2020 10:35 AM EST Body Mass Index 23.88 04/28/2020 10:35 AM EST documented in this encounter Progress Notes Ashok Ritchie MD - 04/28/2020 10:15 AM EST Hematology/Oncology Clinic [facility] Patient Active Problem List Diagnosis ??? [...] ear Added automatically from request for surgery [id number] ??? Parotid mass Added automatically from request for surgery [id number] ??? History of basal cell carcinoma ??? [...] 76 mg 40 mg/m2/dose = 76 mg Checkup and week #3 chemo; due for radiation fraction #11 of planned 33. He is developing increasing mucositis which has been getting in the way of nutrition and fluids. In addition, his nausea continues to be a problem. This is particularly troublesome on Tuesday and of each week. Starting last week we added a dose of palonosetron to his hydration visit, and he is able to get through the weekend fairly well. He has been using prochlorperazine and ondansetron as needed but these have not controlled the nausea on the worst days. He has applied for medical marijuana but this takes several weeks through the [facility]. He has been trying some THC Gummies by mouth, but only half of the dose a few times and he does not feel that this has beenan adequate trial. Bowels are sluggish but working most days. Just started taking MgO BID. No peripheral neuropathy or ototoxicity noted. No infectious complications. His Mediport has been functioning fine. He has been losing some weight. He met with the cancer center dietitian today to talk about strategies for increasing intake in general and protein intake specifically. His has deputized her son who lives next door to help enforce good oral intake when she is not at home. Physical exam: He looks well, in no acute distress Oral exam shows grade 1 erythema in the left posterior oral cavity. No signs of candidiasis. Neck exam shows bulky surgical graft in the left neck, completely healed incisions, no palpable adenopathy. Grade 1 erythema of the skin. Lungs are clear Mediport is benign Cardiac exam is normal, soft grade 2 flow murmur in the left upper sternal border. Abdomen is benign, no hepatosplenomegaly or masses Extremities are normal, no clubbing cyanosis or edema Neurologic exam is stable, independent ambulation, normal motor and sensory function. Facial nerve remains weak on the left, with the slight ectropion of the lower lid but corneal closure is complete. Labs: WBC 7.3, Hb 13.0, plts 179K, hepatic enzymes normal, creat stable 1.1, BUN 17. Mg still borderline at 1.7. Impression: High-risk SCCa of skin, 1/3 through course of adjuvant chemoRT. Grade 2 nausea on days 3-4 of each chemo infusion. We increased day 4 antiemetics (additional dose aprepitant) but he appearsto need more antiemetic earlier each week. Plan: continue chemoRT. Will add oral olanzapine 5 mg nightly (halting prochlorperazine) PO, and addIV hydration on day 3 (as well as day 4). Contingency: consider adding PRN lorazepam; consider chemodose reduction if all else fails. Ashok Ritchie MD, FACP financial business analyst Hematology/Oncology Section [facility] [place] [address] Voice recognition software used for this note; please excuse plant health care technician errors. I personally reviewed past medical, surgical, family medical histories, reviewed current medications, vital signs, labs, and performed full review of systems. These are documented below the narrative for clarity and succinctness. Outpatient Medications Marked as Taking for the 04/28/20 encounter (Office Visit) with Ashok Ritchie MD Medication Sig Dispense Refill ??? acetaminophen (Tylenol) 500 mg Tablet Take 1,000 mg by mouth every 8 hours as needed for Pain. ??? diphenhydrAMINE/aluminum-magnesium hydroxide with simethicone/lidocaine (BMX) (6.67 mg-0.83 mg-13.33 mg-1.33 mg/mL) oral liquid Take 5 mLs by mouth See Admin Instructions. BML First Mouthwash: Swallow 5- 10 mls before meals and as needed for pain with swallowing. No more than 8 dose per day 119 mL1 ??? prochlorperazine (Compazine) 10 mg Tablet Take [...] Review of systems is negative for other SALES AND MARKETING ASSOCIATE, bone, pulmonary, cardiac, GI, , extremity, neurologic, endocrine, skin, constitutional, emotional, or functional problems. Vitals Office Visit from 04/28/2020 in Hematology/Oncology at [facility] Weight 74.4 kg (164 lb) Height 176.5 cm (5' 9.49) BSA (Calculated - sq m) 1.91 sq meters BMI (Calculated) 23.88 Temp 37.1 ??C (98.8 ??F) Temp src Temporal Heart Rate 77 Heart Rate Source Right, NIBP Resp 16 BP 145/76 BP Location Right arm Patient Position Sitting SpO2 100 % Karnofsky Score 80 Body surface area is 1.91 meters squared. Wt Readings from Last 3 Encounters: 04/28/20 74.4 kg (164 lb) 04/24/20 76.8 kg (169 lb 6.4 oz) 04/23/20 76.4 kg (168 lb 6.4 oz) No results found for this or any previous visit (from the past 72 hour(s)). ++++++++++++++++++++++++++++++++++++++++++++++++++++ documented in this encounter Plan of Treatment Upcoming Encounters Date Type Specialty Care Team Description 10/21/2021 Infusion Hematology and Oncology 11/09/2021 Office Visit Hematology and Oncology Alhaji Ritchie MD [facility] DR ONCOLOGY DEPT. [place], [place] [address] (Wo rk) 11/09/2021 Infusion Hematology and Oncology 12/10/2021 Office Visit Dermatology Silas Walters MD [address] DERMATOLOGY [place], [place] [address] (Wo rk) 09/19/2039 Hospital Encounter Surgery Osman Barnett MD [facility] OTOLARYNGOLOGY Sharlene EPT. [place], [place] [address] (Wo rk) Scheduled Procedures Name [...] alone documented in this encounter Care Teams Chain Testing Machine Operator Relationship Specialty Start Date End Date Tara Joya MD PCP - General Family Medicine 05/16/[address] [facility] [place] [address] documented as of this encounter
--- OUTSIDE RECORDS SUMMARY | 2021-10-21 08:00 | XMS_ITS | Encounter Summary ---
:1950 Author Organization [facility] [place] [address] Care Team Providers Name Role Phone Tara Joya MD Primary Care Provider [phone] Encounter Details Date Type Department Care Team Description 04/16/2020 Office Visit Radiation Oncology at [facility], Squamous cell [facility] carcinoma of ear, left [address] [place] [address] RADIATION ONCOLOGY [phone] [place] [address] Social History Tobacco Use Types Packs/Day Years Used Date Former Smoker Cigarettes 1 40 Quit: 01/09/20 03 Smokeless Tobacco: Never Used Alcohol Use Standard Drinks/Week Comments No 0 (1 standard drink = 0.6 oz pure alcoho l) Sex Assigned at Date Recorded Not on file documented as of this encounter Last Filed Vital Signs Vital Sign Reading Time Taken Comments Blood Pressure 151/67 04/16/2020 4:14 PM EST Pulse 73 04/16/2020 4:14 PM EST Temperature 36.8 ??C (98.3 ??F) 04/16/2020 4:14 PM EST Respiratory Rate 18 04/16/2020 4:14 PM EST Oxygen Saturation 99% 04/16/2020 4:14 PM EST Inhaled Oxygen Concentration - - Weight 77.6 kg (171 lb) 04/16/2020 4:14 PM EST with sissy es Height - - Body Mass Index 24.89 04/10/2020 11:28 AM EST documented in this encounter Progress Notes Eleazar Galdamez MD - 04/16/2020 4:00 PM EST ON TREATMENT VISIT NOTE Ward Santamaria is a 69 y.o. 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 Adjuvant chemoradiotherapy Current treatment dose: 6 Gy in 2 fractions. Anticipated total dose: 66 Gy in 33 fractions. Concomitant Therapy: Y ONC BCA CHEMO (AMB) 04/14/2020 Day, Cycle Day 1, Cycle 1 CISplatin (Platinol) IV 40 mg/m2/dose Evaluation of Port Verification Films: PORT films have been reviewed, please see ARIA for details. Changes in medical condition Pain: denies Secretions/Dryness: no issues Swallowing Function: no issues Nutrition: all via mouth, no G tube Skin: one area adjacent to residual ear requiring continued packing GI: -N/V: not present -Bowels: noissues Nutrition Assessment: Weight : 77.6 kg initial Change: NA Objective: Vitals: 04/16/20 1614 BP: 151/67 Patient Position: Sitting Pulse: 73 Resp: 18 Temp: 36.8 ??C (98.3 ??F) TempSrc: Temporal SpO2: 99% Weight: 77.6 kg (171 lb) SKIN: no skin erythema; small area being packed with no evidence of infection MUCOSA: no mucositis Assessment: No toxicity, treatment started within the last week. CTCAE TOXICITY GRADES (see below for mcneal): Site Grade Skin 0 Xerostomia 0 Pharyngeal Mucositis 0 Dysphagia 0 Hoarseness 0 TREATMENT RESPONSE: No change Plan: ?? Continue RT per prescription ?? Pain control: none needed at this time ?? Skin: Jeans cream prn ?? Mucositis: ?? Pain control: see above ?? Oral hygiene consisting of baking soda/salt rinse at least 8 times daily ?? Alimentation: culinary director following ?? Weight stable, all by mouth at this time CTCAE v4.03 scales for reference Skin 0 [...] Oncology Alhaji Ritchie MD [facility] ONCOLOGY DEPT. [place], [place] [address] (Jin carson) 11/09/2021 Infusion Hematology and Oncology 12/10/2021 Office Visit Dermatology Silas Walters MD [address] [place] [address] DERMATOLOGY [place], [place] [address] (Jin carson) 09/19/2039 Hospital Encounter Surgery Osman Barnett MD [facility] OTOLARYNGOLOGY D EPT. [place], [place] [address] (Wo rk) Scheduled Procedures Name [...] left documented in this encounter Care Teams Manager University Relationship Specialty Start Date End Date Tara Joya MD PCP - General Family Medicine 05/16/[address] [place] [address] documented as of this encounter
--- OUTSIDE RECORDS SUMMARY | 2021-10-21 08:00 | XMS_ITS | Encounter Summary ---
:1950 Author Organization [facility] [place] [address] Care Team Providers Name Role Phone Tara Joya MD Primary Care Provider [phone] Reason for Visit Reason Comments Chemotherapy Cisplatin, Cycle 1, Day 15 Treatment/Therapy Plan Authorization (Routine) - Closed Specialty Diagnoses / Procedures Referred By Contact Refer red To Contact Diagnoses Squamous cell carcinoma of ear, left Chemotherapy-induced nausea Ashok Ritchie MD [facility] Hem Onc Infusion [address] [place] [phone] Fax: Referral ID Status Reason Start Date Expiration Date Visits Requ ested Visits Authorized [id number] Closed 03/10/2020 03/10/2021 99 99 Encounter Details Date Type Department Care Team Description 04/28/2020 Infusion Hematology Oncology at [facility] emotherapy-induced nausea; [facility] Squamous cell carcinoma of e ar, left [address] [place] [phone] Social History Tobacco Use Types Packs/Day Years Used Date Former Smoker Cigarettes 1 40 Quit: 01/09/20 03 Smokeless Tobacco: Never Used Alcohol Use Standard Drinks/Week Comments No 0 (1 standard drink = 0.6 oz pure alcoho l) Sex Assigned at Date Recorded Not on file documented as of this encounter Progress Notes Eboni Paz RN - 04/28/2020 11:00 AM EST INFUSION THERAPY ADMINISTRATION NOTES DIAGNOSIS: Basal cell carcinoma of the ear CYCLE #1, Day 15 REASON FOR VISIT: Cisplatin SUBJECTIVE Ward offers no complaints. OBJECTIVE LAB DATA: WNL for today's infusion. Mg 1.[address] Ritchie & cleared for treatment. IV ACCESS: Mediport Pre administration: Chemotherapy orders independently verified for drug name, route, and dosage per patient's height, weight and BSA by Eboni Paz RN & On-site pharmacist. REACTIONS (DESCRIPTION, TIME, INTERVENTION AND EFFECTIVENESS) none ASSESSMENT Ward was awake, alert and tolerated treatment well. PLAN Return to clinic per routine on Tuesday, & for hydration. documented in this encounter Plan of Treatment Upcoming Encounters Date Type Specialty Care Team Description 10/21/2021 Infusion Hematology and Oncology 11/09/2021 Office Visit Hematology and Oncology Alhaji Ritchie MD [facility] DR ONCOLOGY DEPT. [place], [place] [address] (Jin carson) 11/09/2021 Infusion Hematology and Oncology 12/10/2021 Office Visit Dermatology Silas Walters MD [address] [place] [address] DERMATOLOGY [place], [place] [address] (Jin carson) 09/19/2039 Hospital Encounter Surgery Osman Barnett MD [facility] OTOLARYNGOLOGY D EPT. [place], [place] [address] (Jin carson) Scheduled Procedures Name [...] Dose Rate Site aprepitant (CINVANTI) injection Given 04/28/2020 1:17 PM EST 130 mg Emul 130 mg 130 mg, Intravenous, ONCE, 1 dose, On Tue04/28/20 at 1230, Alternative administration of IV push over 2 minutes is a recommendation from the nursing information systems coordinator. Administer prior to chemotherapy., Routine CISplatin (Platinol) 76 mg in sodium New Bag 04/28/2020 1:52 P M EST 76 mg 326 mL/hr chloride 0.9% 326 mL infusion 76 mg (rounded from 76.4 mg = 40 mg/m2/dose ? 1.91 m2 Treatment Plan BSA from Recorded weight), Intravenous, ONCE, 1 dose, On Tue04/28/20 at 1330, Administer over 60 Minutes, Warning Vesicant/Irritant Medication dexamethasone (Decadron) injection 10 mg Given 04/28/2020 1:17 PM EST 10 mg 10 mg, Intravenous, ONCE, 1 dose, On Tue04/28/20 at 1230, Administer prior to chemotherapy heparin (pf) (porcine) (100 units/mL) Given 04/28/2020 2:[address] 500 Units flush 5 mL syringe 500 Units 500 Units, Intravenous, ONCE PRN, Starting on Tue04/28/20 at 1204, Until Tue04/28/20 at 1737, Line Care, Refer to Intravenous (IV) Procedure: Accessing Implanted Vascular Access Devices (724) procedure and/or Intravenous (IV) Job Aid: Adult Flushing & Catheter Care (5487) job aid for additional information regarding guidelines and administration., Routine palonosetron (Aloxi) (0.25 mg/mL) injection Given 10/2020 1:17 PM EST 0.25 mg 0.25 mg 0.25 mg, Intravenous, ONCE, 1 dose, On Tue04/28/20 at 1230, Administer over 30 seconds. Administer prior to chemotherapy, Routine sodium chloride 0.9 % (flush) flush 5-20 mL Given 04/28/2020 2:55 PM EST 20 mLs 5-20 mL, Intravenous, EVERY 1 MIN PRN, Starting on Tue04/28/20 at 1204, Until Tue04/28/20 at 1737, Line Care, Flush pertains to all indwelling lines. Flush per protocol found in the job aid using the link provided on this medication record. Refer to Intravenous (IV) Job Aid: Adult Flushing & Catheter Care (1033) job aid for additional information regarding guidelines and administration., Routine sodium chloride 0.9% infusion New Bag 04/28/2020 12:00 PM EST 1,000 mLs 1000 mL/hr 1,000 mL, at 1,000 mL/hr, Intravenous, CONTINUOUS, Starting on Tue04/28/20 at 1230, Until Tue04/28/20 at 1329, Pre-CISplatin sodium chloride 0.9% infusion New Bag 04/28/2020 1:52 PM EST 500 mLs 500 mL/hr 500 mL, at 500 mL/hr, Intravenous, CONTINUOUS, Starting on Tue04/28/20 at 1430, Until Tue04/28/20 at 1529, Post CISplatin documented in this encounter Care Teams Delivery Driver Assistant Relationship Specialty Start Date End Date Tara Joya MD PCP - General Family Medicine 05/16/[address] [id number] documented as of this encounter
--- OUTSIDE RECORDS SUMMARY | 2021-10-21 08:00 | XMS_ITS | Encounter Summary ---
:1950 Author Organization [facility] [address] Care Team Providers Name Role Phone Tara Joya MD Primary Care Provider [phone] Encounter Details Date Type Department Care Team Description 04/16/2020 TH Visit Hematology/Oncology Gilda Jameson, Genaro sparks; (TeleHealth) at [facility] PRODUCT SAFETY MANAGER Dysphagia, unspecified type [address] [place] [phone] Social History Tobacco Use Types Packs/Day Years Used Date Former Smoker Cigarettes 1 40 Quit: 01/09/20 03 Smokeless Tobacco: Never Used Alcohol Use Standard Drinks/Week Comments No 0 (1 standard drink = 0.6 oz pure alcoho l) Sex Assigned at Date Recorded Not on file documented as of this encounter Miscellaneous Notes Initial Evaluation - Gilda Jameson, PRODUCT SAFETY MANAGER - 04/16/2020 10:00 AM ESTSummary: PRODUCT SAFETY MANAGER Initial Telephone Encounter Speech Language Pathology Note Subjective: Ward Santamaria and spouse, Nika, contacted via telephone by PRODUCT SAFETY MANAGER today per patient request. Objective: Pain: 0/10 Respiratory Status: Room air Vision: N/A Hearing: N/A Current Diet: No diet orders on file Feeding / Oral Care Status: Pt is independent Cognitive-Linguistic Status: alert, oriented to person, place, and time Follows Commands: Follows multi-step commands Oral / Laryngeal Mechanism Clinical Assessment: ?? Lingual: DNT ?? Labial / Buccal: DNT ?? Velar: DNT ?? Sensation: DNT ?? Vocal fold function and airway protection: WFL per informal assessment via telephone, to be assessed further in person ?? Speech Intelligibility: WFL ?? Mucosa: DNT ?? Jaw: DNT ?? Trismus: DNT ?? SUNITA: DNT ?? Lateral Excursion: DNT Standardized Assessment(s) RSI (Reflux Symptom Index) Administered via phone given report of reflux previous day 10 - WFL Ward Santamaria demonstrates oropharyngeal dysphagia as characterized by clinical difficulties with mastication and pharyngeal globus per patient report; all symptoms appear to be well managed at this time. Plan: Patient has appointment for 04/30 for full clinical swallowing evaluation. Patient and spouse demonstrate agreement with plan today. Thank you for this consult. Please feel free to call me with any questions or concerns regarding Ward Santamaria's care. Gilda Jameson MA CCC-PRODUCT SAFETY MANAGER Speech-Language Pathologist [email or web address] documented in this encounter Plan of Treatment Upcoming Encounters Date Type Specialty Care Team Description 10/21/2021 Infusion Hematology and Oncology 11/09/2021 Office Visit Hematology and Oncology Alhaji Ritchie MD [facility] DR ONCOLOGY DEPT. [place], [place] [address] (Jin carson) 11/09/2021 Infusion Hematology and Oncology 12/10/2021 Office Visit Dermatology Silas Walters MD [address] [facility] DERMATOLOGY [place], [place] [address] (Jin carson) 09/19/2039 Hospital Encounter Surgery Osman Barnett MD [facility] OTOLARYNGOLOGY D EPT. [place], [place] [address] (Jin carson) Scheduled Procedures Name [...] type documented in this encounter Care Teams Clinical Documentation Consultant Relationship Specialty Start Date End Date Tara Joya MD PCP - General Family Medicine 05/16/[address] [place] [address] documented as of this encounter
--- OUTSIDE RECORDS SUMMARY | 2021-10-21 08:00 | XMS_ITS | Encounter Summary ---
:1950 Author Organization [facility] [place] [address] Care Team Providers Name Role Phone Tara Joya MD Primary Care Provider [phone] Reason for Referral Speech Therapy (Routine) - Closed Specialty Diagnoses / Procedures Referred By Contact Refer red To Contact Speech Pathology / Diagnoses Squamous cell carcinoma, ear, left Urbano Beck, [facility] PA [facility] [address] [place], [place] Otolaryngology [phone] [place] [address] Referral ID Status Reason Start Date Expiration Date Visits V isits Requested Authorized [id number] Closed Evaluate and 03/31/2020 03/31/2021 1 1 Treat Encounter Details Date Type Department Care Team Description 03/31/2020 Office Visit Otolaryngology at [facility] Urbano Beck Squamous cell carcinoma, ear , left; [facility] NANDA Acosta Dysphagia, [place] [phone] [facility] [phone] [facility] [place], [place] [address] Social History Tobacco Use Types Packs/Day Years Used Date Former Smoker Cigarettes 1 40 Quit: 01/09/20 03 Smokeless Tobacco: Never Used Alcohol Use Standard Drinks/Week Comments No 0 (1 standard drink = 0.6 oz pure alcoho l) Sex Assigned at Date Recorded Not on file documented as of this encounter Progress Notes Urbano Beck PA - 03/31/2020 1:00 PM EST [facility] OTOL[facility]OLOGY FOLLOW UP NOTE Ward Santamaria is a 69 y.o. 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 ?? He has a history of a [id number] cutaneous skin cancer involving the ear canal, [...] regular packing changes of the wound sites. He presents today for reassessment of his flap dehiscent areas. New issues since last visit: No new difficulties. Packing changes going well. Had simulation today. Intermittent, 2-3 times per week swallowing difficulty. Mainly with solids, will start coughing. PROBLEM LIST Patient Active Problem List Diagnosis [...] to Visit Medication Sig Dispense Refill ??? sulfamethoxazole-trimethoprim DS (Bactrim DS) 800-160 mg Tablet Take 1 tablet by mouth 2 times daily for 7 days. 14 tablet 0 ??? Ibuprofen 200 mg Capsule Take by [...] times daily. 2 Bottle 0 ??? HYDROcodone-acetaminophen ([place]) 5-325 mg Tablet Take 1 tablet by [...] Dose Route Frequency Provider Last Rate Last Dose ??? [COMPLETED] LORazepam (Ativan) tablet 1 mg 1 mg Oral Once Eleazar Galdamez MD 1 mg at ALLERGIES Allergies Allergen Reactions ??? Penicillins rash [...] with dehiscence at the superior anterior aspect, ~3.5cms in size, and which communicates with the posterior dehiscent area underneath the auricle remnant, and is about 4cms in size. Good granulation tissue noted in the wound beds. Some minor debridement undertaken.No significant drainage, erythema, or other evidence of infection appreciated. PROCEDURES Procedure: wound care Aquacel AG was gently placed into the 2 defects using a cotton swab, filling the defects. Gauze was then placed over this and taped in place with silk tape. REVIEW OF IMAGES/STUDIES ASSESSMENT/RECOMMENDATIONS - Dehiscent sites are much improved from piror, with decrease in defect size and depth, and no evidence of infection. Dr. Barnett also examined the patient and felt that he was exhibiting good healing. He discussed performing procedures to help with his eye closure after completing his radiation. Discussed obtaining a clinical swallow evaluation with PURCHASING ASSOCIATE to assess his swallowing difficulties, and to establish a baseline prior to radiation treatment. - Discussed continued dressing changes every 2-3 days, per previous regimen. - Discussed a televisit in 1 week for reassessment. - The patient expressed understanding of these points and agreement with the plan, and all questionsthat were asked were answered to the patient's satisfaction. Plan: > Continue placking changes every 2-3 days. > Clinical swallow evaluation. > Televisit in 1 week. > Patient should call if their symptoms worsen or fail to improve, if new concerning symptoms arise, or if they have any questions or concerns regarding their treatment. I appreciate the opportunity to be involved in Mr. Santamaria's care. Urbano Beck PA-C [place], [place] [phone] Office 03/31/2020 documented in this encounter Plan of Treatment Upcoming Encounters Date Type Specialty Care Team Description 10/21/2021 Infusion Hematology and Oncology 11/09/2021 Office Visit Hematology and Oncology Alhaji Ritchie MD [facility] DR ONCOLOGY DEPT. [place], [place] [address] (Wo rk) 11/09/2021 Infusion Hematology and Oncology 12/10/2021 Office Visit Dermatology Silas Walters MD [address] DERMATOLOGY [place], [place] [address] (Wo rk) 09/19/2039 Hospital Encounter Surgery Osman Barnett MD [facility] OTOLARYNGOLOGY D EPT. [place], [place] [address] (Wo rk) Scheduled Procedures Name [...] Diagnoses Diagnosis Squamous cell carcinoma, ear, left Dysphagia, unspecified type documented in this encounter Care Teams Sewing Machine Operator Zipper Relationship Specialty Start Date End Date Tara Joya MD PCP - General Family Medicine 05/16/[address] [place] [address] documented as of this encounter
--- OUTSIDE RECORDS SUMMARY | 2021-10-21 08:00 | XMS_ITS | Encounter Summary ---
:1950 Author Organization [facility] [place] [address] Care Team Providers Name Role Phone Tara Joya MD Primary Care Provider [phone] Encounter Details Date Type Department Care Team Description 04/14/2020 Telephone [facility] [place] [phone] Social History Tobacco Use Types Packs/Day Years Used Date Former Smoker Cigarettes 1 40 Quit: 01/09/20 03 Smokeless Tobacco: Never Used Alcohol Use Standard Drinks/Week Comments No 0 (1 standard drink = 0.6 oz pure alcoho l) Sex Assigned at Date Recorded Not on file documented as of this encounter Miscellaneous Notes Telephone Encounter - Charlene Zeng RN - 04/14/2020 12:56 PM EST Telephone call to Nika. She states that she is anxious about today as it is husbands first treatments. She wonders what she should expect for him after first radiation treatment. Reviewed with her that he most likely will have no side effects from today's first treatment. She reports that he tolerated CT sim well and I let her know that he most likely will not be in his mask as long today as he was then. Reviewed that he would see Dr. Galdamez every Tuesday for weekly on treatment visit and assured her that she would be included in those visits due to patient's memory issues. I encouraged her to let us know if they have any concerns on other days as well. She expressed that she would and was thankful to have someone to call as well as to be involved with his provider visits. She also states that patient given aloe to drink as well as aloe topical. She wonders if ok for him to take these products. I advised that he should not start until discussed with his oncologists and that I would update Dr. Galdamez, Dr. Ritchie as well as Caterina Aguirre RD who follows patient. She was agreeable to this plan. Telephone Encounter - Charlene Zeng RN - 04/14/2020 12:56 PM EST ----- Message from Margarita Higuera sent at 04/14/2020 11:43 AM EST ----- Can you both call Nika Santamaria re: her . She has questions for both sides. . Margarita documented in this encounter Plan of Treatment Upcoming Encounters Date Type Specialty Care Team Description 10/21/2021 Infusion Hematology and Oncology 11/09/2021 Office Visit Hematology and Oncology Alhaji Ritchie MD [facility] DR ONCOLOGY DEPT. [place], [place] [address] (Jin carson) 11/09/2021 Infusion Hematology and Oncology 12/10/2021 Office Visit Dermatology Silas Walters MD [address] [place] [address] DERMATOLOGY [place], [place] [address] (Jin carson) 09/19/2039 Hospital Encounter Surgery Osman Barnett MD [facility] OTOLARYNGOLOGY D EPT. [place], [place] [address] (Jin carson) Scheduled Procedures Name [...] on filedocumented in this encounter Care Teams Courier Delivery Driver Relationship Specialty Start Date End Date Tara Joya MD PCP - General Family Medicine 05/16/[address] [place] [address] documented as of this encounter
--- OUTSIDE RECORDS SUMMARY | 2021-10-21 08:00 | XMS_ITS | Encounter Summary ---
:1950 Author Organization [facility] [address] Care Team Providers Name Role Phone Tara Joya MD Primary Care Provider [phone] Reason for Referral Consultation (Routine) - Closed Specialty Diagnoses / Procedures Referred By Contact Refer red To Contact Radiation Oncology Diagnoses Squamous cell carcinoma of ear, left Eleazar Galdamez MD [facility] Office Procedures Re-simulation for Radiation Therapy Planning [address] [place] [phone] Fax: Referral ID Status Reason Start Date Expiration Date Visits V isits Requested Authorized [id number] Closed Consult, 04/23/2020 04/23/2021 1 1 Test & Treat Encounter Details Date Type Department Care Team Description 04/23/2020 Office Visit Radiation Oncology at Ele[facility] left [address] [place] [phone] RADIATION ONCOLOGY [phone] [place], [place] [address] Social History Tobacco Use Types [...] Sign Reading Time Taken Comments Blood Pressure 150/76 04/23/2020 3:16 PM EST Pulse 60 04/23/2020 3:16 PM EST Temperature 36.7 ??C (98.1 ??F) 04/23/2020 3:16 PM EST Respiratory Rate - - Oxygen Saturation 96% 04/23/2020 3:16 PM EST Inhaled Oxygen Concentration - - Weight 76.4 kg (168 lb 6.4 oz) 04/23/2020 3:16 PM EST Height - - Body Mass Index 24.52 04/21/2020 11:09 AM EST documented in this encounter Progress Notes Eleazar Galdamez MD - 04/23/2020 2:30 PM EST ON TREATMENT VISIT NOTE Ward Santamaria is a 69 y.o. 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 Adjuvant chemoradiotherapy Current treatment dose: 16 Gy in 8 fractions. Anticipated total dose: 66 Gy in [...] adjacent to residual ear requiring continued packing, improved GI: -N/V: persistent nausea, on ondansetron / compazine prn -Bowels: no issues Nutrition Assessment: Weight : 77.6 kg initial Change: 77.6 => 76.4 Objective: Vitals: 04/23/20 1516 BP: 150/76 Patient Position: Sitting Pulse: 60 Temp: 36.7 ??C (98.1 ??F) TempSrc: Temporal SpO2: 96% Weight: 76.4 kg (168 lb 6.4 oz) SKIN: mild skin erythema; small area being packed with no evidence of infection MUCOSA: no mucositis Assessment: Mild - moderate toxicity, with some erythema, dysgeusia, xerostomia. Change noted in graft size on CBCT, will re-simulate today. CTCAE TOXICITY GRADES (see below for mcneal): Site Grade Skin 1 Xerostomia 1 Pharyngeal Mucositis 0 Dysphagia 0 Hoarseness 0 TREATMENT RESPONSE: No change Plan: ?? Continue RT per prescription ?? Pain control: ?? OTC medications ?? Skin: Jeans cream prn ?? Mucositis: ?? Pain control: see above ?? Oral hygiene consisting of baking soda/salt rinse at least 8 times daily ?? Alimentation: mat worker following ?? Weight stable, all by mouth at this time ?? N/V: schedule ondansteron / compazine, they will let us know if sx do not respond ?? Re-simulate today. CTCAE v4.03 scales for reference Skin 0 [...] [facility] DR ONCOLOGY DEPT. [place], [place] [address] (Wo rk) 11/09/2021 Infusion Hematology and Oncology 12/10/2021 Office Visit Dermatology Silas Walters MD [address] [facility] DERMATOLOGY [place], [place] [address] (Wo rk) 09/19/2039 Hospital Encounter Surgery Osman Barnett MD [facility] OTOLARYNGOLOGY D EPT. [place], [place] [address] (Wo rk) Scheduled Orders Name Type Priority Associated Diagnoses Order S chedule Re-simulation for Procedures Routine Squamous cell carcinoma Ordered: 04/23/2020 Radiation Therapy of ear, left Planning Scheduled [...] left documented in this encounter Care Teams Store Grocery Merchandiser Relationship Specialty Start Date End Date Taar Joya MD PCP - General Family Medicine 05/16/[address] [place] [address] documented as of this encounter
--- OUTSIDE RECORDS SUMMARY | 2021-10-21 08:00 | XMS_ITS | Encounter Summary ---
:1950 Author Organization [facility] [place] [address] Care Team Providers Name Role Phone Tara Joya MD Primary Care Provider [phone] Encounter Details Date Type Department Care Team Description 04/10/2020 Office Visit Otolaryngology at [facility] Kylie Costello, Postoperative [facility] CUSTOMER RESOLUTION [place] [address] CENTER [phone] [place] [address] Social History Tobacco Use Types Packs/Day Years [...] - Inhaled Oxygen Concentration - - Weight 77.7 kg (171 lb 4.8 oz) 04/10/2020 11:28 AM EST Height 176.5 cm (5' 9.5) 04/10/2020 11:28 AM EST Body Mass Index 24.93 04/10/2020 11:28 AM EST documented in this encounter Progress Notes Kylie Costello, CUSTOMER RESOLUTION SPECIALIST - 04/10/2020 11:30 AM EST [facility] Follow up note ?? ID: Ward is a 69 year old with a hx of [id number] cutaneous skin cancer involving the ear canal, temporal bone, parotid gland, and surrounding tissue. Here for a recheck?? HPI:He has a history of a [id number] cutaneous skin cancer involving the ear canal, temporal bone, parotid gland, and surrounding tissue.?He underwent left ear tumor resection, total parotidectomy, selective neck dissection, left pectoralis myocutaneous flap reconstruction on 02/20/20.?The Head and[place]ck Tumor Board recommended adjuvant radiation, as well as consideration of adjuvant chemotherapy in light of the aggressive nature of his disease. ??He developed dehiscence of his incision lines at 2sites: along the superior anterior aspect of the flap, as well as at the posterior superior aspect, extending along the auricle remnant. ??He has been undergoing regular packing changes of the wound sites. ??He presents today for reassessment of his flap dehiscent areas. New issues since last visit: Doing well. Eating and drinking ok. Has left facial palsy so he is eating on the right side. He denies any pain. HE did just get a Mediport placed this past Tuesday. He is starting Radiation on Tuesday. No fevers. Changing dressing every other day with Aquacel. He is unableto close his left eye.He is using eye lubricant routinely. He is meeting with speech therapy next week as a baseline exam before radiation starts. ?? Diet: Normal ?? PROBLEM LIST: Patient [...] C44.229 ??? Hearing loss H91.90 PAST MEDICAL HISTORY: No past medical history [...] file Gets together: Not on file Attends jew service: Not on file Active member of [...] with his of 49 years in [employer]. 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 Two adult sons live in this building and are involved in pt's care. MEDICATIONS: Current Outpatient Medications: ??? prochlorperazine (Compazine) 10 mg Tablet, Take 1 tablet by mouth every 6 hours as needed for Nausea., Disp: 30 tablet, Rfl: 3 ??? ondansetron (Zofran) 8 mg Tablet, Take 1 tablet by mouth every 8 hours as needed for Nausea. Useif prochlorperazine is not effective., Disp: 20 tablet, Rfl: 3 ??? Ibuprofen 200 mg Capsule, Take by mouth as needed., Disp: , Rfl: ??? white petrolatum-mineral oiL (Refresh-PM), Place 1 each into the left eye 2 times daily., Disp: 1 Tube, Rfl: 5 ??? carboxymethylcellulose (REFRESH PLUS) 0.5 % Dropperette, Place 2 drops into both eyes 4 times daily., Disp: 2 Bottle, Rfl: 0 ??? nitroGLYcerin (NITROSTAT) 0.4 mg Tablet, Sublingual, as needed., Disp: , Rfl: ??? ABILIFY 15 mg Tablet, Take 15 mg by mouth daily., Disp: , Rfl: ??? metoprolol succinate (TOPROL-XL) 50 mg 24 hr tablet, Take 1 tablet by mouth daily., Disp: 30 tablet, Rfl: 12 ??? atorvastatin (LIPITOR) 20 mg tablet, Take 20 mg by mouth daily., Disp: , Rfl: ??? fenofibrate (TRICOR) 145 mg tablet, Take 145 mg by mouth daily., Disp: , Rfl: ??? lamoTRIgine (LAMICTAL) 200 mg tablet, Take 200 mg by mouth 2 times [...] General: Well developed, no distress Head/face: Normocephalic, atraumatic with left facial droop.Unable to close the left eye completely. Neck: The flap is well vascularized. There is smooth well vascularized tissue along the postauricular incision. The there is no significant dehiscence on exam today. Skin is warm. No drainage. Good granulation tissue present. did examine this today. Psych: mood and affect appropriate to situation. Responds appropriately to questions. ? ASSESSMENT/RECOMMENDATIONS: Postoperative exam with SCCa of skin of head and neck; doing well Plan: Will continue with dressing changes as planned. HE will start radiation on Tuesday. He should return to see a month after radiation is completed. At that time the left eye can be reexamined and discussion of surgical repair can take place then. Monitor for any infection. RTC sooner if needed. documented in this encounter Plan of Treatment Upcoming Encounters Date Type Specialty Care Team Description 10/21/2021 Infusion Hematology and Oncology 11/09/2021 Office Visit Hematology and Oncology Alhaji Ritchie MD [facility] DR ONCOLOGY DEPT. [place], [place] [address] (Wo rk) 11/09/2021 Infusion Hematology and Oncology 12/10/2021 Office Visit Dermatology Silas Walters MD [address] [place] [address] DERMATOLOGY [place], [place] [address] (Wo rk) 09/19/2039 Hospital Encounter Surgery Osman Barnett MD [facility] OTOLARYNGOLOGY D EPT. [place], [place] [address] (Wo rk) Scheduled Procedures Name [...] as of this encounter Visit Diagnoses Diagnosis Postoperative examination Follow-up examination, following unspeci fied surgery documented in this encounter Care Teams County Coroner Relationship Specialty Start Date End Date Tara Joya MD PCP - General Family Medicine 05/16/[address] [place] [address] documented as of this encounter
--- OUTSIDE RECORDS SUMMARY | 2021-10-21 08:00 | XMS_ITS | Encounter Summary ---
:1950 Author Organization [facility] [place] [address] Care Team Providers Name Role Phone Tara Joya MD Primary Care Provider [phone] Encounter Details Date Type Department Care Team Description 04/30/2020 Office Visit Hematology/Oncology at Gilda Jameson, Tio arotid mass; [facility] HEDIS REVIEW NURSE Dysphagia, unspecified type [address] [place] [phone] Social History Tobacco Use Types Packs/Day Years Used Date Former Smoker Cigarettes 1 40 Quit: 01/09/20 03 Smokeless Tobacco: Never Used Alcohol Use Standard Drinks/Week Comments No 0 (1 standard drink = 0.6 oz pure alcoho l) Sex Assigned at Date Recorded Not on file documented as of this encounter Progress Notes Gilda Jameson SLP - 04/30/2020 9:30 AM ESTSummary: HEDIS REVIEW NURSE Clinical Swallow Evaluation Speech Language Pathology Clinical Swallow Evaluation Patient Profile: Ward Santamaria is a 69 [...] nausea R11.0, T45.1X5A Meds: reviewed Labs: reviewed Per RD visit 04/28/20: Estimated body mass index is 23.88 kg/m?? [...] decreased by 4-5 lbs this week (~2-3%) Primary tumor location: SCCa of the left ear and parotid Feeding Tube Present? Yes Weight Loss? Yes Weight is decreased by 4-5 lbs this week (~2-3%) Prior Level of Swallow Function: WFL Subjective: Ward Santamaria seen in office today for clinical swallowing evaluation and motivational interview with spouse Nika also present. Truncated CSE today due to patient's schedule. Objective: Pain: 0/10 Respiratory Status: Room air [...] Buccal: DNT ?? Velar: DNT ?? Sensation: WFL ?? Vocal fold function and airway protection: WFL per informal assessment ?? Speech Intelligibility: WFL ?? Mucosa: DNT ?? Jaw: Impaired mobility, reports pain today ?? Trismus: Yes ?? SUNITA: DNT due to pain (Missael et al, 2006) ?? Lateral Excursion: DNT due to pain ([facility] Parameters of Care, 2007) ?? Dentition: WFL Last Dentist Visit: March 2020 Next Dentist Visit: 6 month follow up Concerns with oral hygiene care/routine? No, using BSSR consistently Prescription toothpaste, prescription mouthwash Bolus Presentation(s) IDDSI Level 0 - thin liquid Shasha Swallow Protocol Patient results: Pass Oral Preparatory Phase ?? Mastication: WFL ?? Oral Transit: Likely WFL ?? Bolus Cohesion: Likely Impaired secondary to xerostomia ?? Labial Seal / Loss: WFL ?? Oral Stasis: N/A Pharyngeal Phase ?? Laryngeal Elevation: Likely WFL ?? Vocal quality change: None ?? Cough / throat clear: None ?? Pt. complaint of food/pills/liquids feeling 'stuck': N/A ?? Fatigue across trials: No ?? Respiratory rate and respiratory swallow pattern: WFL Esophageal Phase ?? Appears to be WFL, No overt clinical s/s of esophageal phase dysphagia noted during this evaluation Standardized Assessment(s) MD Marin Dysphagia Inventory [MDADI], a validated [...] to 100 (High functioning) Education Addressed: - Exercise physiology specific to swallowing mechanism in context of patient's diagnoses and currentcourse of chemo/RT. Reviewed EAT-RT protocol and provided patient and spouse with written information for review. - Oropharyngeal swallowing mechanism, education re: trismus s/sx; self- monitoring techniques to be addressed during subsequent visit - Risk Management Compensatory Techniques/Precautions: Slow Rate, Small Bites and Small Sips Upright position during meals and for at least 30 mins following Sensory enhancement (flavor, texture, temperature) as tolerated Excellent oral care Pt/spouse able to demonstrate comprehension of effective use of outlined techniques - Instrumental Assessment Options: PRN - Videofluoroscopic Swallow Study / Modified Barium Swallow Study [VFSS/MBSS] and Flexible Endoscopic Evaluation of Swallowing [FEES] Assessment Ward Santamaria demonstrates oropharyngeal dysphagia as characterized by clinical difficulties with mastication and pharyngeal globus per patient report; all symptoms appear to be well managed at this time. FOIS: Level 5 - Total Oral Intake of multiple consistencies requiring special preparation, does havetube for additional nutritional support Diagnosis: Oropharyngeal dysphagia Recommendations: Instrumentation: N/A at this time, may benefit from Videofluoroscopic Swallow Study / Modified Barium Swallow Study [VFSS/MBSS] if symptoms persist once treatment course has been completed Diet: Solids: IDDSI Level 6 - Soft & Bite-Sized [15x15 mm / 1.5x1.5 cm particle size; see fork/spoon pressure test], Level 0 - thin liquids, may increase viscosity if overt s/sx aspiration are noted, encourage follow up with HEDIS REVIEW NURSE in this case PO medications: as tolerated [...] / nutrition with optimal safety and efficiency. Plan: Discussed subsequent visit for 05/07/20 prior to treatment . Pt./family are in agreement with treatment plan. Thank you for this consult. Please feel free to call me with any questions or concerns regarding Ward Santamaria's care. Gilda Jameson MA [facility]-HEDIS REVIEW NURSE Speech-Language Pathologist [email or web address] documented in this encounter Plan of Treatment Upcoming Encounters Date Type Specialty Care Team Description 10/21/2021 Infusion Hematology and Oncology 11/09/2021 Office Visit Hematology and Oncology Alhaji Ritchie MD [facility] [address] ONCOLOGY DEPT. [place] [address] (Wo rk) 11/09/2021 Infusion Hematology and Oncology 12/10/2021 Office Visit Dermatology Silas Walters MD [address] DERMATOLOGY [place], [place] [address] (Wo rk) 09/19/2039 Hospital Encounter Surgery Osman Barnett MD [facility] OTOLARYNGOLOGY D EPT. [place], [place] [address] (Wo rk) Scheduled Procedures Name [...] type documented in this encounter Care Teams Cleaning Associate Relationship Specialty Start Date End Date Tara Joya MD PCP - General Family Medicine 05/16/[address] [place] [address] documented as of this encounter
--- OUTSIDE RECORDS SUMMARY | 2021-10-21 08:00 | XMS_ITS | Encounter Summary ---
:1950 Author Organization [facility] [place] [address] Care Team Providers Name Role Phone Tara Joya MD Primary Care Provider [phone] Reason for Visit Reason Comments Chemotherapy Cisplatin, Cycle 1, Day 1 Treatment/Therapy Plan Authorization (Routine) - Closed Specialty Diagnoses / Procedures Referred By Contact Refer red To Contact Diagnoses Squamous cell carcinoma of ear, left Chemotherapy-induced nausea Ashok Ritchie MD [facility] Hem Onc Infusion [address] [place] [phone] Fax: Referral ID Status Reason Start Date Expiration Date Visits Requ ested Visits Authorized [id number] Closed 03/10/2020 03/10/2021 99 99 Encounter Details Date Type Department Care Team Description 04/14/2020 Infusion Hematology Oncology at [facility] uamous cell carcinoma of [facility] ear, left [address] [place] [phone] Social History Tobacco Use Types Packs/Day Years Used Date Former Smoker Cigarettes 1 40 Quit: 01/09/20 03 Smokeless Tobacco: Never Used Alcohol Use Standard Drinks/Week Comments No 0 (1 standard drink = 0.6 oz pure alcoho l) Sex Assigned at Date Recorded Not on file documented as of this encounter Progress Notes Eboni Paz RN - 04/14/2020 12:00 PM EST INFUSION THERAPY ADMINISTRATION NOTES DIAGNOSIS: Basal cell carcinoma of the ear CYCLE #1, Day 1 REASON FOR VISIT: Cisplatin SUBJECTIVE Ward offers no complaints. OBJECTIVE LAB DATA: WBC 6.84, HGB 13.3, PLTS 243, ANC 3.5, Creat 1.04, Mg 1.8 IV ACCESS: Mediport Pre administration: Chemotherapy orders independently verified for drug name, route, and dosage per patient's height, weight and BSA by Eboni Paz RN & On-site pharmacist. REACTIONS (DESCRIPTION, TIME, INTERVENTION AND EFFECTIVENESS) none ASSESSMENT Ward was awake, alert and tolerated treatment well. PLAN Return to clinic per routine. Pt. chemo teaching instructions included: During clinic hours (8am-5pm Tuesday-Tuesday): pt. can call [phone] with questions or concerns. After clinic hours (5pm-8am Tuesday-Tuesday and weekends) pt can call [phone] and ask for the hardwood floor installation helper/oncologist food production associate. Ward Santamaria verbalized understanding of potential chemotherapy side effects and home care including but not limited to- handwashing to prevent infection, signs and symptoms of low blood counts (fever, fatigue, bleeding), to call with a fever of 100.4 or greater, any significant constipation/diarrhea, importance of nutrition and fluid intake (drinking at least 32-64 ounces of non-caffeinated beverages/day), mouth care. Ward Santamaria verbalized understanding of how to take prescription medications given for home use after chemotherapy. documented in this encounter Plan of Treatment Upcoming Encounters Date Type Specialty Care Team Description 10/21/2021 Infusion Hematology and Oncology 11/09/2021 Office Visit Hematology and Oncology Alhaji Ritchie MD [facility] DR ONCOLOGY DEPT. [place], [place] [address] (Jin carson) 11/09/2021 Infusion Hematology and Oncology 12/10/2021 Office Visit Dermatology Silas Walters MD [address] [facility] DERMATOLOGY [place], [place] [address] (Jin carson) 09/19/2039 Hospital Encounter Surgery Osman Barnett MD [facility] OTOLARYNGOLOGY Sharlene EPT. [place], [place] [address] (Wo rk) Scheduled Procedures Name [...] Dose Rate Site aprepitant (CINVANTI) injection Given 04/14/2020 12:28 PM EST 13 0 mg Emul 130 mg 130 mg, Intravenous, ONCE, 1 dose, On Tue04/14/20 at 1215, Alternative administration of IV push over 2 minutes is a recommendation from the flight agent. Administer prior to chemotherapy., Routine CISplatin (Platinol) 76 mg in sodium New Bag 04/14/2020 1:00 P M EST 76 mg 326 mL/hr chloride 0.9% 326 mL infusion 76 mg (rounded from 76.4 mg = 40 mg/m2/dose ? 1.91 m2 Treatment Plan BSA from Recorded weight), Intravenous, ONCE, 1 dose, On Tue04/14/20 at 1315, Administer over 60 Minutes, Warning Vesicant/Irritant Medication dexamethasone (Decadron) tablet 10 mg Given 04/14/2020 12:27 PM EST 10 mg 10 mg, Oral, ONCE, 1 dose, On Tue04/14/20 at 1215, Administer prior to chemotherapy, Routine heparin (pf) (porcine) (100 units/mL) Given 04/14/2020 2:[address] 500 Units flush 5 mL syringe 500 Units 500 Units, Intravenous, ONCE PRN, Starting on Tue04/14/20 at 1147, Until Tue04/14/20 at 1515, Line Care, Refer to Intravenous (IV) Procedure: Accessing Implanted Vascular Access Devices (654) procedure and/or Intravenous (IV) Job Aid: Adult Flushing & Catheter Care (0938) job aid for additional information regarding guidelines and administration., Routine palonosetron (Aloxi) (0.25 mg/mL) injection Given 03/22 12:28 PM EST 0.25 mg 0.25 mg 0.25 mg, Intravenous, ONCE, 1 dose, On Tue04/14/20 at 1215, Administer over 30 seconds. Administer prior to chemotherapy, Routine sodium chloride 0.9 % (flush) flush 5-20 mL Given 04/14/2020 2:25 PM EST 20 mLs 5-20 mL, Intravenous, EVERY 1 MIN PRN, Starting on Tue04/14/20 at 1147, Until Tue04/14/20 at 1515, Line Care, Flush pertains to all indwelling lines. Flush per protocol found in the job aid using the link provided on this medication record. Refer to Intravenous (IV) Job Aid: Adult Flushing & Catheter Care (3081) job aid for additional information regarding guidelines and administration., Routine sodium chloride 0.9% infusion New Bag 04/14/2020 12:00 PM EST 1,000 mLs 1000 mL/hr 1,000 mL, at 1,000 mL/hr, Intravenous, CONTINUOUS, Starting on Tue04/14/20 at 1215, Until Tue04/14/20 at 1314, Pre-CISplatin sodium chloride 0.9% infusion New Bag 04/14/2020 1:20 PM EST 500 mLs 500 mL/hr 500 mL, at 500 mL/hr, Intravenous, CONTINUOUS, Starting on Tue04/14/20 at 1415, Until Tue04/14/20 at 1514, Post CISplatin documented in this encounter Care Teams Data Consultant Relationship Specialty Start Date End Date Tara Joya MD PCP - General Family Medicine 05/16/[address] [address] documented as of this encounter
--- OUTSIDE RECORDS SUMMARY | 2021-10-21 08:00 | XMS_ITS | Encounter Summary ---
:1950 Author Organization [facility] [place] [address] Care Team Providers Name Role Phone Tara Joya MD Primary Care Provider [phone] Encounter Details Date Type Department Care Team Description 04/04/2020 Orders Only Hematology and Ashok Ritchie, Chemother ap[place] [facility] [place] [facility] [place] [phone] ONCOLOGY DEPT. [phone] [place], [place] [address] Social History Tobacco Use Types [...] MD [facility] ONCOLOGY DEPT. [place], [place] [address] (Wo rk) 11/09/2021 Infusion Hematology and Oncology 12/10/2021 Office Visit Dermatology Silas Walters MD [address] [place] [address] DERMATOLOGY [place], [place] [address] (Wo rk) 09/19/2039 Hospital Encounter Surgery Osman Barnett MD [facility] OTOLARYNGOLOGY [place]arlene EPT. [place], [place] [address] (Wo rk) Scheduled Procedures Name [...] alone documented in this encounter Care Teams Dedenter Relationship Specialty Start Date End Date Tara Joya MD PCP - General Family Medicine 05/16/[address] [place] [address] documented as of this encounter
--- OUTSIDE RECORDS SUMMARY | 2021-10-21 08:00 | XMS_ITS | Encounter Summary ---
:1950 Author Organization [facility] [place] [address] Care Team Providers Name Role Phone Tara Joya MD Primary Care Provider [phone] Encounter Details Date Type Department Care Team Description 04/14/2020 [facility] [address] [phone] Social History Tobacco Use Types Packs/Day Years Used Date Former Smoker Cigarettes 1 40 Quit: 01/09/20 03 Smokeless Tobacco: Never Used Alcohol Use Standard Drinks/Week Comments No 0 (1 standard drink = 0.6 oz pure alcoho l) Sex Assigned at Date Recorded Not on file documented as of this encounter Progress Notes Caterina Aguirre RD - 04/14/2020 2:00 PM EST [facility] Dietitian Follow Up Assessment Seen By: Caterina Aguirre RD LD Referred by: Dr. Ritchie Reason for visit: starting treatment for H&N cancer Patient and diagnosis: Ward Santamaria is a 69 y.o. 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 HPI: Patient Active Problem List Diagnosis Code [...] ear, left C44.229 ??? Hearing loss H91.90 Meds: reviewed Labs: reviewed Estimated body mass index is 24.93 kg/m?? as calculated from the following: Height as of 04/10/20: 176.5 cm (5' 9.5). Weight as of 04/10/20: 77.7 kg (171 lb 4.8 oz). Wt Readings from Last 3 Encounters: 04/10/20 77.7 kg (171 lb 4.8 oz) 03/31/20 76.4 kg (168 lb 6.4 oz) 03/20/20 75.9 kg (167 lb 4.8 oz) denies weight loss, actually feels he has gained weight Wt Hx: UBW: ~170 lbs % UBW: IBW: +/- 10% % IBW: ___ Edema ___ Ascites ___Muscle wasting Calorie needs: 9950-3975 (30-35 kcal/kg) Protein needs: 112 grams (1.5 g/kg) Fluid needs: ~2.5 L Nutrition Assessment: Food Intake: Feels his intake has been improving recently; eating three meals per day; starting to eat lunch (would previously skip); sometimes has second helping at dinner meal; notes that he enjoys spicy foods; difficulty with tough meats, such as steak, but able to chew small bites of softer meats/chicken; other foods he likes include eggs, oatmeal w/milk, ice cream Fluids: usually likes to drink pepsi, but trying to drink more water instead. Nutrition support: no g-tube present at this time Supplements/Frequency: __X_ Ensure/Plus occasional, does not like aftertaste ___ Boost/Plus ___ CIB ___ Other: Teas, vitamins, or other nutritional supplements: Food allergies or avoidances: denies Appetite: good; improved since hospitalization Nausea: n/a Vomiting: n/a Chewing: takes longer, small bites at a time Dentition: teeth present Swallowing: denies difficulty Taste Changes: n/a Bowels: did not discuss Food availability/purchasing, meal planning and preparation: self, Social Support: Physical Activity: Anticipated adherence/understanding: good Nutrition Diagnosis: 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 Nutrition Intervention: ? Increase caloric needs ? Modify diet consistency: as tolerated - softer foods easier to chew at this time ? Increase frequency of meals and snacks ? Need for supplements: discussed alternative options, encouraged as needed Educational Handouts provided: ? Soft and moist high protein foods ? Smoothie recipes Monitoring and Evaluation: Will follow up weekly. documented in this encounter Plan of Treatment Upcoming Encounters Date Type Specialty Care Team Description 10/21/2021 Infusion Hematology and Oncology 11/09/2021 Office Visit Hematology and Oncology Alhaji Ritchie MD [facility] DR ONCOLOGY DEPT. [place], [place] [address] (Jin carson) 11/09/2021 Infusion Hematology and Oncology 12/10/2021 Office Visit Dermatology Silas Walters MD [address] [place] [address] RD DERMATOLOGY [place], [place] [address] (Jin carson) 09/19/2039 Hospital Encounter Surgery Osman Barnett MD [facility] OTOLARYNGOLOGY D EPT. [place], [place] [address] (Jin carson) Scheduled Procedures Name [...] neck documented in this encounter Care Teams Boat Engines Installer Relationship Specialty Start Date End Date Tara Joya MD PCP - General Family Medicine 05/16/[address] [place] [address] documented as of this encounter
--- OUTSIDE RECORDS SUMMARY | 2021-10-21 08:00 | XMS_ITS | Encounter Summary ---
:1950 [place] [address] Care Team Providers Name Role Phone Tara Joya MD Primary Care Provider [phone] Encounter Details Date Type Department Care Team Description 04/10/2020 Telephone Otolaryngology at [facility] [place] [phone] Social History Tobacco Use Types Packs/Day Years Used Date Former Smoker Cigarettes 1 40 Quit: 01/09/20 03 Smokeless Tobacco: Never Used Alcohol Use Standard Drinks/Week Comments No 0 (1 standard drink = 0.6 oz pure alcoho l) Sex Assigned at Date Recorded Not on file documented as of this encounter Miscellaneous Notes Telephone Encounter - Lay Ortega - 04/10/2020 9:07 AM EST Patients called looking to see if they could meet with Saurav Beck today when they [place] be [place] [facility] [place] they had to cancel their last appointment. Message has been sent to DM circuit board repair technician who is following up and will call back. Let her know we would be giving her a call back. documented in this encounter Plan of Treatment Upcoming Encounters Date Type Specialty Care Team Description 10/21/2021 Infusion Hematology and Oncology 11/09/2021 Office Visit Hematology and Oncology Alhaji Ritchie MD [facility] DR ONCOLOGY DEPT. [place], [place] [address] (Wo rk) 11/09/2021 Infusion Hematology and Oncology 12/10/2021 Office Visit Dermatology Silas Walters MD [address] DERMATOLOGY [place], [place] [address] (Wo rk) 09/19/2039 Hospital Encounter Surgery Osman Barnett MD [facility] OTOLARYNGOLOGY D EPT. [place], [place] [address] (Wo rk) Scheduled Procedures Name [...] on filedocumented in this encounter Care Teams Surgical Scrub Tech Relationship Specialty Start Date End Date Tara Joya MD PCP - General Family Medicine 05/16/[address] [place] [address] documented as of this encounter
--- OUTSIDE RECORDS SUMMARY | 2021-10-21 08:00 | XMS_ITS | Encounter Summary ---
:1950 Author Organization [place] [address] Care Team Providers Name Role Phone aTra Joya MD Primary Care Provider [phone] Reason for Visit Reason Onset Date Comments Follow-up 04/28/2020 Encounter Details Date Type Department Care Team Description 04/28/2020 Telephone Hematology/Oncology at Nancy Lucas RN Follow-up [place] [phone] Social History Tobacco Use Types Packs/Day Years Used Date Former Smoker Cigarettes 1 40 Quit: 01/09/20 03 Smokeless Tobacco: Never Used Alcohol Use Standard Drinks/Week Comments No 0 (1 standard drink = 0.6 oz pure alcoho l) Sex Assigned at Date Recorded Not on file documented as of this encounter Miscellaneous Notes Telephone Encounter - Nancy Agee RN - 04/28/2020 4:27 PM EST Pt to start on olanzapine for nausea. Pharmacy called and spoke with Dr. Ritchie and there are some interactions with anoop so Dr. Ritchie having pt stop his abilify for now. Spoek with about this. She agrees with plan, if any issues going off this medication she will call us. documented in this encounter Plan of Treatment Upcoming Encounters Date Type Specialty Care Team Description 10/21/2021 Infusion Hematology and Oncology 11/09/2021 Office Visit Hematology and Oncology Alhaji Ritchie MD [facility] DR ONCOLOGY DEPT. [place], [place] [address] (Wo rk) 11/09/2021 Infusion Hematology and Oncology 12/10/2021 Office Visit Dermatology Silas Walters MD [address] DERMATOLOGY [place], [place] [address] (Wo rk) 09/19/2039 Hospital Encounter Surgery Osman Barnett MD [facility] OTOLARYNGOLOGY D EPT. [place], [place] [address] (Wo rk) Scheduled Procedures Name [...] on filedocumented in this encounter Care Teams Fixed Income Trading Vice President Relationship Specialty Start Date End Date Tara Joya MD PCP - General Family Medicine 05/16/[address] [facility] [place] [address] documented as of this encounter
--- OUTSIDE RECORDS SUMMARY | 2021-10-21 08:00 | XMS_ITS | Encounter Summary ---
:1950 [place] [address] Care Team Providers Name Role Phone Tara Joya MD Primary Care Provider [phone] Reason for Visit Auth/Cert Specialty Diagnoses / Procedures Referred By Contact Refer red To Contact Diagnoses Squamous cell carcinoma of ear, left Procedures VENOUS ACCESS PLACEMENT Referral ID Status Reason Start Date Expiration Date Visits Requ ested Visits Authorized [id number] 1 1 Encounter Details Date Type Department Care Team Description 04/08/2020 Hospital Encounter Same Day Program at [facility] DIAGNOSTIC [place] [phone] Social History Tobacco Use Types Packs/Day Years Used Date Former Smoker Cigarettes 1 40 Quit: 01/09/20 03 Smokeless Tobacco: Never Used Alcohol Use Standard Drinks/Week Comments No 0 (1 standard drink = 0.6 oz pure alcoho l) Sex Assigned at Date Recorded Not on file documented as of this encounter Last Filed Vital Signs Vital Sign Reading Time Taken Comments Blood Pressure 132/71 04/08/2020 6:00 PM EST Pulse 68 04/08/2020 5:10 PM EST Temperature - - Respiratory Rate 16 04/08/2020 5:45 PM EST Oxygen Saturation 99% 04/08/2020 6:00 PM EST Inhaled Oxygen Concentration - - Weight - - Height - - Body Mass Index - - documented in this encounter Discharge Instructions Discharge InstructionsCastillo Lane RN - 04/08/2020 5:35 PM EST Images from the original note were not included. [facility] Vascular and Interventional Radiology Discharge Instructions for your Chest Port Removal Activity: ??? Relax for the next 24 hours Diet: ??? Drink plenty of fluids. ??? Resume your regular diet Bandage: There is a sterile dressing consisting of small gauze with a clear dressing (Tegaderm or [id number]). This dressing should be left in place [...] not peel them off. There may be [place]-harvey (skin glue) also, allow this to flake [...] is during regular office hours, please call [phone]. If it is after regular office hours, oron weekends or holidays, please call [phone] and ask to speak to the Coat Checker on callfor Interventional Radiology. You have received [...] please contact your M. D. Revised 04/04/15 [facility] Vascular and Interventional Radiology Discharge Instructions for your Chest Port Removal Activity: ??? Relax for the next 24 hours Diet: ??? Drink plenty of fluids. ??? Resume your regular diet Bandage: There is a sterile dressing consisting of small gauze with a clear dressing (Tegaderm or [id number]). This dressing should be left in place [...] not peel them off. There may be [place]-harvey (skin glue) also, allow this to flake [...] someone drive you to the nearest Emergency [facility], or call 911. ??? If you develop pain, redness, drainage or swelling at or around chest incision site. ??? If you develop a fever equal to or greater than 101 degrees Fahrenheit. When to call the Interventional Radiology Department: Please call with any questions or concerns. Ifit is during regular office hours, please call [phone]. If it is after regular office hours, oron weekends or holidays, please call [phone] and ask to speak to the Coat Checker on callfor Interventional Radiology. You have received [...] [facility] DR ONCOLOGY DEPT. [place], [place] [address] (Jni carson) 11/09/2021 Infusion Hematology and Oncology 12/10/2021 Office Visit Dermatology Silas Walters MD [address] [facility] DERMATOLOGY [place], [place] [address] (Jin carson) 09/19/2039 Hospital Encounter Surgery Paydarfar, Osman A, MD [facility] OTOLARYNGOLOGMelvin Su EPT. [place], [place] [address] (Wo rk) Scheduled Procedures Name [...] PRN, S tarting Tue04/08/20 at 1203, Until 1/19/21 at 2019, flush, Flush pertains to all indwelling lines. Flush per protocol found in the job aid using the link provided on this medication record., Routine documented in this encounter Care Teams Jawbone Puller Relationship Specialty Start Date End Date Tara Joya MD PCP - General Family Medicine 05/16/[address] [place] [address] documented as of this encounter
--- OUTSIDE RECORDS SUMMARY | 2021-10-21 08:00 | XMS_ITS | Encounter Summary ---
:1950 Author Organization [facility] [place] [address] Care Team Providers Name Role Phone Tara Joya MD Primary Care Provider [phone] Reason for Visit Consultation (Routine) - Closed Specialty Diagnoses / Procedures Referred By Contact Refer red To Contact Radiation Oncology Diagnoses Squamous cell carcinoma of ear, left Eleazar Galdamez MD [facility] Rad Onc Office Procedures Re-simulation for Radiation Therapy Planning [facility] [address] [place] [address] [place] [phone] Fax: Referral ID Status Reason Start Date Expiration Date Visits V isits Requested Authorized [id number] Closed Consult, 04/23/2020 04/23/2021 1 1 Test & Treat Encounter Details Date Type Department Care Team Description 04/23/2020 Ancillary Appointment Radiation Oncology at Tio Galdamez [facility] [address] [place] [phone] RADIATION ONCOLOGY [phone] [place], [place] [address] Social History Tobacco Use Types Packs/Day Years Used Date Former Smoker Cigarettes 1 40 Quit: 01/09/20 03 Smokeless Tobacco: Never Used Alcohol Use Standard Drinks/Week Comments No 0 (1 standard drink = 0.6 oz pure alcoho l) Sex Assigned at Date Recorded Not on file documented as of this encounter Patient Instructions Patient InstructionsCharlene Zeng RN - 04/23/2020 2:30 PM EST General instructions for Radiation therapy Radiation Oncology Team ?? Radiation Oncologist -The doctor who will direct all aspects of your radiation treatments ?? Nurse Practitioner - They assist your doctor in treating your side effects and with follow up appointments. ?? Registered Nurse - They flavia you in learining about you radaiton treatments, , and things you can do to help manage the side effects. ?? Stick Roller - They take the doctors radiation prescription [...] a well balanced diet is recommended. The customer sales specialist and nurse will inform you of any special diet requirements. Avoid shaving the treatment area with a razor. If you must shave use an electric razor. Our Contact numbers Section of Radiation Oncology Our normal business hours are: Tuesday - Tuesday: 8:00 AM to 5:00 PM [facility]: [facility]: If you have questions about your radiation appointments please ask to speak to one of our racing secretary staff. If you have questions for [...] injury ?? A Radiation Oncology doctor is news correspondent after our normal hours and on weekends. ?? To call for urgent medical issues from radiation treatments that can not wait until normal business hours: ?? Call for either location and have the fire alarm operator page the Radiation Oncologist news correspondent. documented in this encounter Progress Notes Charlene Zeng RN - 04/23/2020 2:30 PM EST Section of Radiation Oncology Contrast Information [...] Does the patient have high blood pressure? no 8. Is the patient currently being treated for gout? no 9. If the answer to any of the questions #5-8 was yes, has the patient had a creatinine level and eGFR drawn within the past 45 days? no Lab Results Component Value Date CREATININE 0.65 (L) 02/23/2020 If no, when will it be drawn? A creatinine less than or equal to [...] PrandiMet, Glugophage, Glumetza, Riomet, Metformin) [x} No If yes, when was last dose taken? 9. If patient is on any of the medications in question #10, consult with the ordering provider if the patient needs to stop the medication and if they will require further lab studies. Charlene Zeng RN - 04/23/2020 2:[address] Contrast Simulation Nursing Note: Ward Gonzalez Otoe [id number] 06/15/1985 IV ACCESS: Power port GAUGE: Please see infusion note BLOOD RETURN: yes CT simulation of: Head and neck MD present for contrast injection: Dr. Galdamez Contrast material: Omnipaque 300mgI/ml Volume of Contrast Injected: 300 ml's Volume of Contrast wasted: 0 ml's Procedure done in Radiation Oncology CT Simulator Room __: No Reaction Any S/Sx of Infiltration/Extravasation: no IV discontinued: please see infusion adina __: Reaction: Specify : none Comments: Eleazar Galdamez MD - 04/23/2020 2:30 PM EST Simulation was performed in anticipation [...] with radio-opaque markers and a bite block was placed under physician supervision. A custom aquaplast mask was then created. The simulation CT scan was performed with contrast, images were reviewed and approved by the tio rosa, and tattoos were created by the therapy [...] [facility] DR ONCOLOGY DEPT. [place], [place] [address] (Jin carson) 11/09/2021 Infusion Hematology and Oncology 12/10/2021 Office Visit Dermatology Silas Walters MD [address] [place] [address] DERMATOLOGY [place], [place] [address] (Jin carson) 09/19/2039 Hospital Encounter Surgery Osman Barnett MD [facility] OTOLARYNGOLOGY D EPT. [place], [place] [address] (Jin carson) Scheduled Procedures Name [...] filedocumented in this encounter Care Teams Medical Office Specialist Relationship Specialty Start Date End Date Tara Joya MD PCP - General Family Medicine 05/16/[address] [place] [address] documented as of this encounter
--- OUTSIDE RECORDS SUMMARY | 2021-10-21 08:00 | XMS_ITS | Encounter Summary ---
:1950 Author Organization [facility] Address [address] [place] [address] Care Team Providers Name Role Phone Tara Joya MD Primary Care Provider [phone] Encounter Details Date Type Department Care Team Description 04/14/2020 Notes Only Hematology/Oncology at Mariela Gallardo [facility] OFFICE OF CARE [address] [place] [phone] Social History Tobacco Use Types Packs/Day Years Used Date Former Smoker Cigarettes 1 40 Quit: 01/09/20 03 Smokeless Tobacco: Never Used Alcohol Use Standard Drinks/Week Comments No 0 (1 standard drink = 0.6 oz pure alcoho l) Sex Assigned at Date Recorded Not on file documented as of this encounter Progress Notes Mariela Gallardo MSW - 04/14/2020 12:51 PM EST Reason for Referral: Brief assessment of social and emotional needs. Met with pt during his first infusion today. He will e receiving concurrent chemo/RT treatments. Social Supports: Pt identified his Nika of 42 years as his primary support. They have 2 sons and both are local. Living Situation/Daily Activities/Transportation: Pt indicated he is able to manage his daily choresand activities. He does not expect any issues with transportation. 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 He has Medicare and AARP for insurance. Advance Directives: Pt has completed his advance directive and a copy is in his record. Utilization of Community Resources: None at this time. Adjustment to Illness/Mental Health Issues: Pt indicated he is coping the best he can. He feels his takes very good care of him. He can call on his sons if he needs anything. Offered support. Identified Needs: Pt did not identify any specific needs at this time. Referrals: None at this time. Plan: Informed pt of COMPUTER DRAFTER availability and will follow for support and resources. documented in this encounter Plan of Treatment Upcoming Encounters Date Type Specialty Care Team Description 10/21/2021 Infusion Hematology and Oncology 11/09/2021 Office Visit Hematology and Oncology Alhaji Ritchie MD [facility] DR ONCOLOGY DEPT. [place], [place] [address] (Wo rk) 11/09/2021 Infusion Hematology and Oncology 12/10/2021 Office Visit Dermatology Silas Walters MD [address] [place] [address] DERMATOLOGY [place], [place] [address] (Wo rk) 09/19/2039 Hospital Encounter Surgery Osman Barnett MD [facility] OTOLARYNGOLOGY D EPT. [place], [place] [address] (Wo rk) Scheduled Procedures Name [...] on filedocumented in this encounter Care Teams Freight Car Repairer Relationship Specialty Start Date End Date Tara Joya MD PCP - General Family Medicine 05/16/[address] [place] [address] documented as of this encounter
--- OUTSIDE RECORDS SUMMARY | 2021-10-21 08:00 | XMS_ITS | Encounter Summary ---
:1950 Author Organization [facility] [place] [address] Care Team Providers Name Role Phone Tara Joya MD Primary Care Provider [phone] Encounter Details Date Type Department Care Team Description 04/24/2020 Telephone Hematology/Oncology at [address] [place] [phone] Social History Tobacco Use Types Packs/Day Years Used Date Former Smoker Cigarettes 1 40 Quit: 01/09/20 03 Smokeless Tobacco: Never Used Alcohol Use Standard Drinks/Week Comments No 0 (1 standard drink = 0.6 oz pure alcoho l) Sex Assigned at Date Recorded Not on file documented as of this encounter Miscellaneous Notes Telephone Encounter - Caterina Aguirre RD - 04/24/2020 3:52 PM EST Nutrition Follow Up - phone call Phone call to , Nika, to discuss patient's nutrition. She states that she and her son have been working hard to encourage patient's oral intake. Becoming more difficult as patient is complaining of taste changes and nausea. She is making high calorie shake, mixing in Ensure supplements. She is interested in any additional suggestions to help increase his oral intake. Brainstormed ideas with . Will send handouts with ideas via email including 100kcal addition handout and recipes. Discussed Beneprotein, unflavored and can mix into various foods. Will provide case of Beneprotein in clinic onTuesday. Will plan to meet with patient and in clinic on 04/28 for follow up. documented in this encounter Plan of Treatment Upcoming Encounters Date Type Specialty Care Team Description 10/21/2021 Infusion Hematology and Oncology 11/09/2021 Office Visit Hematology and Oncology Alhaji Ritchie MD [facility] DR ONCOLOGY DEPT. [place], [place] [address] (Wo rk) 11/09/2021 Infusion Hematology and Oncology 12/10/2021 Office Visit Dermatology Silas Walters MD [address] [facility] [address] DERMATOLOGY [place], [place] [address] (Wo rk) 09/19/2039 Hospital Encounter Surgery Osman Barnett MD [facility] OTOLARYNGOLOGY D EPT. [place], [place] [address] (Wo rk) Scheduled Procedures Name [...] on filedocumented in this encounter Care Teams Multimedia Instructional Designer Relationship Specialty Start Date End Date Tara Joya MD PCP - General Family Medicine 05/16/[address] [place] [address] documented as of this encounter
--- OUTSIDE RECORDS SUMMARY | 2021-10-21 08:00 | XMS_ITS | Encounter Summary ---
:1950 Author Organization [facility] [place] [address] Care Team Providers Name Role Phone Tara Joya MD Primary Care Provider [phone] Reason for Visit Reason Comments Chemotherapy Cisplatin, Cycle 1, Day 8 Treatment/Therapy Plan Authorization (Routine) - Closed Specialty Diagnoses / Procedures Referred By Contact Refer red To Contact Diagnoses Squamous cell carcinoma of ear, left Chemotherapy-induced nausea Ashok Ritchie MD [facility] Hem Onc Infusion [address] [place] [phone] Fax: Referral ID Status Reason Start Date Expiration Date Visits Requ ested Visits Authorized [id number] Closed 03/10/2020 03/10/2021 99 99 Encounter Details Date Type Department Care Team Description 04/21/2020 Infusion Hematology Oncology at [facility] uamous cell carcinoma of [facility] ear, left [address] [place] [phone] Social History Tobacco Use Types Packs/Day Years Used Date Former Smoker Cigarettes 1 40 Quit: 01/09/20 03 Smokeless Tobacco: Never Used Alcohol Use Standard Drinks/Week Comments No 0 (1 standard drink = 0.6 oz pure alcoho l) Sex Assigned at Date Recorded Not on file documented as of this encounter Progress Notes Eboni Paz RN - 04/21/2020 12:00 PM EST INFUSION THERAPY ADMINISTRATION NOTES DIAGNOSIS: Basal cell carcinoma of the ear CYCLE #1, Day 8 REASON FOR VISIT: Cisplatin SUBJECTIVE Ward offers [...] PLAN Return to clinic per routine on 04/24/20 for hydration. documented in this encounter Plan of Treatment Upcoming Encounters Date Type Specialty Care Team Description 10/21/2021 Infusion Hematology and Oncology 11/09/2021 Office Visit Hematology and Oncology Alhaji Ritchie MD [facility] DR ONCOLOGY DEPT. [place], [place] [address] (Jin carson) 11/09/2021 Infusion Hematology and Oncology 12/10/2021 Office Visit Dermatology Silas Walters MD [address] [place] [address] RD DERMATOLOGY [place], [place] [address] (Jin carson) 09/19/2039 Hospital Encounter Surgery Osman Barnett MD [facility] OTOLARYNGOLOGY D EPT. [place], [place] [address] (Jin carson) Scheduled Procedures Name [...] Dose Rate Site aprepitant (CINVANTI) injection Given 04/21/2020 12:17 PM EST 13 0 mg Emul 130 mg 130 mg, Intravenous, ONCE, 1 dose, On Tue04/21/20 at 1215, Alternative administration of IV push over 2 minutes is a recommendation from the magazine grinder loader. Administer prior to chemotherapy., Routine CISplatin (Platinol) 76 mg in sodium New Bag 04/21/2020 1:13 P M EST 76 mg 326 mL/hr chloride 0.9% 326 mL infusion 76 mg (rounded from 76.4 mg = 40 mg/m2/dose ? 1.91 m2 Treatment Plan BSA from Recorded weight), Intravenous, ONCE, 1 dose, On Tue04/21/20 at 1315, Administer over 60 Minutes, Warning Vesicant/Irritant Medication dexamethasone (Decadron) tablet 10 mg Given 04/21/2020 12:17 PM EST 10 mg 10 mg, Oral, ONCE, 1 dose, On Tue04/21/20 at 1215, Administer prior to chemotherapy, Routine heparin (pf) (porcine) (100 units/mL) Given 04/21/2020 2:[address] 500 Units flush 5 mL syringe 500 Units 500 Units, Intravenous, ONCE PRN, Starting on Tue04/21/20 at 1155, Until Tue04/21/20 at 1822, Line Care, Refer to Intravenous (IV) Procedure: Accessing Implanted Vascular Access Devices (104) procedure and/or Intravenous (IV) Job Aid: Adult Flushing & Catheter Care (7711) job aid for additional information regarding guidelines and administration., Routine palonosetron (Aloxi) (0.25 mg/mL) injection Given 03/2020 12:17 PM EST 0.25 mg 0.25 mg 0.25 mg, Intravenous, ONCE, 1 dose, On Tue04/21/20 at 1215, Administer over 30 seconds. Administer prior to chemotherapy, Routine sodium chloride 0.9 % (flush) flush 5-20 mL Given 04/21/2020 2:20 PM EST 20 mLs 5-20 mL, Intravenous, EVERY 1 MIN PRN, Starting on Tue04/21/20 at 1155, Until Tue04/21/20 at 1822, Line Care, Flush pertains to all indwelling lines. Flush per protocol found in the job aid using the link provided on this medication record. Refer to Intravenous (IV) Job Aid: Adult Flushing & Catheter Care (3597) job aid for additional information regarding guidelines and administration., Routine sodium chloride 0.9% infusion New Bag 04/21/2020 12:00 PM EST 1,000 mLs 1000 mL/hr 1,000 mL, at 1,000 mL/hr, Intravenous, CONTINUOUS, Starting on Tue04/21/20 at 1215, Until Tue04/21/20 at 1314, Pre-CISplatin sodium chloride 0.9% infusion New Bag 04/21/2020 1:08 PM EST 500 mLs 500 mL/hr 500 mL, at 500 mL/hr, Intravenous, CONTINUOUS, Starting on Tue04/21/20 at 1415, Until Tue04/21/20 at 1514, Post CISplatin documented in this encounter Care Teams Vegetable Inspector Relationship Specialty Start Date End Date Tara Joya MD PCP - General Family Medicine 05/16/[address] [place] [address] documented as of this encounter
--- OUTSIDE RECORDS SUMMARY | 2021-10-21 08:00 | XMS_ITS | Encounter Summary ---
:1950 Author Organization [facility] [place] [address] Care Team Providers Name Role Phone Tara Joya MD Primary Care Provider [phone] Reason for Visit Reason Comments Other Hydration Treatment/Therapy Plan Authorization (Routine) - Closed Specialty Diagnoses / Procedures Referred By Contact Refer red To Contact Diagnoses Squamous cell carcinoma of ear, left Chemotherapy-induced nausea Ashok Ritchie MD [facility] Hem Onc Infusion [address] [place] [phone] Fax: Referral ID Status Reason Start Date Expiration Date Visits Requ ested Visits Authorized [id number] Closed 03/10/2020 03/10/2021 99 99 Encounter Details Date Type Department Care Team Description 04/24/2020 Infusion Hematology Oncology at [facility] emotherapy-induced nausea; [facility] Squamous cell carcinoma of e ar, left [address] [place] [phone] Social History Tobacco Use Types [...] Sign Reading Time Taken Comments Blood Pressure 137/74 04/24/2020 12:43 PM EST Pulse 69 04/24/2020 12:43 PM EST Temperature 37.2 ??C (98.9 ??F) 04/24/2020 12:43 PM EST Respiratory Rate 20 04/24/2020 12:43 PM EST Oxygen Saturation - - Inhaled Oxygen Concentration - - Weight 76.8 kg (169 lb 6.4 oz) 04/24/2020 1:44 PM EST Height 176.5 cm (5' 9.49) 04/24/2020 12:43 PM EST Body Mass Index 24.67 04/24/2020 12:43 PM EST documented in this encounter Progress Notes Eboni Paz RN - 04/24/2020 12:30 PM EST INFUSION THERAPY ADMINISTRATION NOTES 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 OBJECTIVE IV ACCESS: Mediport REACTIONS (DESCRIPTION, TIME, INTERVENTION AND EFFECTIVENESS) none ASSESSMENT Ward was awake, alert and tolerated treatment well. Ward stated that he felt a little better afterhis infusion. PLAN Return to clinic per routine. documented in this encounter Plan of Treatment Upcoming Encounters Date Type Specialty Care Team Description 10/21/2021 Infusion Hematology and Oncology 11/09/2021 Office Visit Hematology and Oncology Alhaji Ritchie MD [facility] ONCOLOGY DEPT. [place], [place] [address] (Jin carson) 11/09/2021 Infusion Hematology and Oncology 12/10/2021 Office Visit Dermatology Silas Walters MD [address] [facility] DERMATOLOGY [place], [place] [address] (Wo rk) 09/19/2039 Hospital Encounter Surgery Osman Barnett MD [facility] OTOLARYNGOLOGY D EPT. [place], [place] [address] (Jin carson) Scheduled Procedures Name [...] Dose Rate Site aprepitant (CINVANTI) injection Given 04/24/2020 12:36 PM EST 13 0 mg Emul 130 mg 130 mg, Intravenous, ONCE, 1 dose, On Jessica 04/24/20 at 1230, Alternative administration of IV push over 2 minutes is a recommendation from the fabricator assembler metal [employer]., Routine dexamethasone (Decadron) injection 5.2 m g Given 04/24/2020 12:36 PM EST 5.2 mg 5.2 mg (rounded from 5 mg), Intravenous, ONCE, 1 dose, On Jessica 04/24/20 at 1230 heparin (pf) (porcine) (100 units/mL) Given 04/24/2020 1:[address] 500 Units flush 5 mL syringe 500 Units 500 Units, Intravenous, ONCE PRN, Starting on Jessica 04/24/20 at 1213, Until Jessica 04/24/20 at 1559, Line Care, Refer to Intravenous (IV) Procedure: Accessing Implanted Vascular Access Devices (894) procedure and/or Intravenous (IV) Job Aid: Adult Flushing & Catheter Care (9802) job aid for additional information regarding guidelines and administration., Routine ondansetron (Zofran) 16 mg in New Bag 04/24/2020 12:37 PM EST 16 m g 232 mL/hr sodium chloride 0.9% 58 mL infusion 16 mg 16 mg, Intravenous, ONCE, 1 dose, On Jessica 04/24/20 at 1230, Administer over 15 Minutes sodium chloride 0.9 % (flush) flush 5-20 mL Given 04/24/2020 1:40 PM EST 20 mLs 5-20 mL, Intravenous, EVERY 1 MIN PRN, Starting on Jessica 04/24/20 at 1213, Until Jessica 04/24/20 at 1559, Line Care, Flush pertains to all indwelling lines. Flush per protocol found in the job aid using the link provided on this medication record. Refer to Intravenous (IV) Job Aid: Adult Flushing & Catheter Care (9339) job aid for additional information regarding guidelines and administration., Routine sodium chloride 0.9% infusion New Bag 04/24/2020 12:37 PM EST 1,000 mLs 1000 mL/hr 1,000 mL, at 1,000 mL/hr, Intravenous, CONTINUOUS, Starting on Jessica 04/24/20 at 1230, Until Jessica 04/24/20 at 1329 documented in this encounter Care Teams Clinical Trial Leader Relationship Specialty Start Date End Date Tara Joya MD PCP - General Family Medicine 05/16/[address] [place] [address] documented as of this encounter
--- OUTSIDE RECORDS SUMMARY | 2021-10-21 08:00 | XMS_ITS | Encounter Summary ---
:1950 Author Organization [facility] [place] [address] Care Team Providers Name Role Phone Tara Joya MD Primary Care Provider [phone] Encounter Details Date Type Department Care Team Description 04/21/2020 Office Visit Hematology/Oncology at [facility], Catie uamous cell [facility] RD carcinoma of ear, left [address] [place] [phone] Social History Tobacco Use Types Packs/Day Years Used Date Former Smoker Cigarettes 1 40 Quit: 01/09/20 03 Smokeless Tobacco: Never Used Alcohol Use Standard Drinks/Week Comments No 0 (1 standard drink = 0.6 oz pure alcoho l) Sex Assigned at Date Recorded Not on file documented as of this encounter Progress Notes Caterina Aguirre RD - 04/21/2020 12:00 PM EST [facility] Dietitian Follow Up Seen By: Caterina [...] nausea R11.0, T45.1X5A Meds: reviewed Labs: reviewed, nonfasting glucose 223, mag 1.7 Estimated body mass index is 24.43 kg/m?? as calculated from the following: Height as of an earlier encounter on 04/21/20: 176.5 cm (5' 9.49). Weight as of an earlier encounter on 04/21/20: 76.1 kg (167 lb 12.8 oz). Wt Readings from Last 3 Encounters: 04/21/20 76.1 kg (167 lb 12.8 oz) 04/16/20 77.6 kg (171 lb) 04/10/20 77.7 kg (171 lb 4.8 oz) Weight is decreased by 4 lbs this week (~2%) Wt Hx: UBW: ~170 lbs % UBW: IBW: +/- 10% % IBW: ___ Edema ___ Ascites ___Muscle wasting Calorie needs: 4807-5698 (30-35 kcal/kg) Protein needs: 112 grams (1.5 g/kg) Fluid needs: ~2.5 L Nutrition Assessment: Food Intake: Eating smaller, more frequent meals. States has been encouraging his oral intake and preparing foods and shakes. He began using 1 Ensure per day mixed with other ingredients such as fruit and ice cream to improve taste. Difficulty with tough meats, such as steak, but able to chew smal l bites of softer meats/chicken; other foods he likes include eggs, oatmeal w/milk, ice cream; states he will start to eat more soups this week. Fluids: usually likes to drink pepsi, but trying to drink more water instead. Admits fluid intake islower that it should be. Nutrition support: no g-tube present Supplements/Frequency: __X_ Ensure/Plus 1 per day mixed into shake ___ Boost/Plus ___ CIB ___ Other: Teas, vitamins, or other nutritional supplements: Food allergies or avoidances: denies Appetite: good Nausea: +after treatment last week, has prochlorperazine on hand Vomiting: denies Chewing: takes longer, small bites at a time Dentition: teeth present Swallowing: denies difficulty Taste Changes: denies Bowels: did not discuss Food availability/purchasing, meal planning and preparation: self, Social Support: Physical Activity: Anticipated adherence/understanding: good Nutrition Diagnosis: 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 Nutrition Intervention: ? Increased caloric needs ? Modify diet consistency: as tolerated - softer foods working best ? Increase frequency of meals and snacks ? Need for supplements: continue Ensure shakes, increase as needed - discussed additions for higher calorie content ? Hydration: encouraged re-usable water bottle to help keep track of fluid intake Monitoring and Evaluation: Will follow up weekly. documented in this encounter Plan of Treatment Upcoming Encounters Date Type Specialty Care Team Description 10/21/2021 Infusion Hematology and Oncology 11/09/2021 Office Visit Hematology and Oncology Alhaji Ritchie MD [facility] DR ONCOLOGY DEPT. [place], [place] [address] (Jin carson) 11/09/2021 Infusion Hematology and Oncology 12/10/2021 Office Visit Dermatology Silas Walters MD [address] [place] [address] RD DERMATOLOGY [place], [place] [address] (Jin carson) 09/19/2039 Hospital Encounter Surgery Osman Barnett MD [facility] OTOLARYNGOLOGY D EPT. [place], [place] [address] (Wo rk) Scheduled Procedures Name [...] documented in this encounter Care Teams Warehouse Representative Relationship Specialty Start Date End Date Tara Joya MD PCP - General Family Medicine 05/16/[address] [place] [address] documented as of this encounter
--- OUTSIDE RECORDS SUMMARY | 2021-10-21 08:01 | XMS_ITS | Encounter Summary ---
:1950 Author Organization [facility] [place] [address] Care Team Providers Name Role Phone Tara Joya MD Primary Care Provider [phone] Reason for Referral Diagnostic Test (Routine) - Closed Specialty Diagnoses / Procedures Referred By Contact Refer red To Contact Radiology Diagnoses Squamous cell carcinoma of ear, left Ashok Ritchie MD [facility] Interventionl Rad Procedures IR Mediport Placement [facility] [place] [address] [place] [address] Referral ID Status Reason Start Date Expiration Date Visits V isits Requested Authorized [id number] Closed Specialty 03/10/2020 09/08/2021 1 1 Service Requested Reason for Visit Consultation (Routine) - Closed Specialty Diagnoses / Procedures Referred By Contact Refer red To Contact Hematology and Oncology Diagnoses Squamous cell carcinoma, ear, left Urbano Beck Davis, Thomas H, MD [facility] [address] ONCOLOGY DEPT. Otolaryngology [place], [place] [id number] [place] [address] Referral ID Status Reason Start Date Expiration Date Visits V isits Requested Authorized [id number] Closed Consult, 02/28/2020 02/27/2021 1 1 Test & Treat Encounter Details Date Type Department Care Team Description 03/10/2020 Office Visit Hematology/Oncology Ashok Ritchie Squa mous cell carcinoma of ear, left; at [facility] Hearing loss, unspecified hearing loss t ype, unspecified laterality [address] [place] [address] ONCOLOGY DEPT. [phone] [place] [id number] Social History Tobacco Use Types Packs/Day Years Used Date Former Smoker Cigarettes 1 40 Quit: 01/09/20 03 Smokeless Tobacco: Never Used Alcohol Use Standard Drinks/Week Comments No 0 (1 standard drink = 0.6 oz pure alcoho l) Sex Assigned at Date Recorded Not on file documented as of this encounter Last Filed Vital Signs Vital Sign Reading Time Taken Comments Blood Pressure 151/71 03/10/2020 9:28 AM EST Pulse 74 03/10/2020 9:28 AM EST Temperature 36.8 ??C (98.2 ??F) 03/10/2020 9:28 AM EST Respiratory Rate 16 03/10/2020 9:28 AM EST Oxygen Saturation 100% 03/10/2020 9:28 AM EST Inhaled Oxygen Concentration - - Weight 74.8 kg (165 lb) 03/10/2020 9:28 AM EST Height 175.3 cm (5' 9) 03/10/2020 9:28 AM EST Body Mass Index 24.37 03/10/2020 9:28 AM EST documented in this encounter Progress Notes Ashok Ritchie MD - 03/10/2020 9:30 AM EST Images from the original note were not included. Hematology/Oncology Clinic [facility] Patient Active Problem List Diagnosis ??? Squamous [...] radiation with concurrent cisplatin anticipated 03/2020 ??? Hearing loss Bilateral hearing aids prior to surgical loss of L ear 02/2020 ??? Mass of left ear Added automatically from request for surgery [id number] ??? Parotid mass Added automatically from request for surgery [id number] ??? History of basal cell carcinoma ??? [...] negative ??? Basal cell cancer ??? 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 The patient is a 69-year-old male who has had several small squamous cell cancers and basal cell cancers removed from the face and head in the past. He had lesions removed from his left cheekin October and again in February 2019. These were quite small and localized. In November of this year he noted the rapid growth of a mass in the left preauricular area, consistent with a parotid tumor.He developed pain, mostly with chewing, and difficulty with chewing; eventually the mass got so large that it obstructed the external auditory canal and impaired his ability to hear more than his baseline bilateral hearing loss. He was evaluated by Dr. Barahona; a biopsy was concerning for malignancy but not definitive. He was then referred to Dr. Barnett who first saw him in clinic on 01/31/2020. At that point he had a large mass emerging from the left parotid, extending into the tragus and external auditory canal. Office biopsy confirmed moderately differentiated squamous cell carcinoma. Imaging showed this mass to invade more deeply, abutting but not clearly invading the temporal bone. He underwent resection with pectoralis major flap reconstruction on 02/20/2020. This involved a temporal bone resection, as the tumor appeared to reach deep into the middle ear. The surgery involved a left neck dissection as well. His postoperative recovery was complicated by transient lactic acidosis,treated conservatively with resolution. He was given a short course of postoperative antibiotics. Otherwise postop course has been uncomplicated. Prior to surgery his main complaints were of left facial pain, trismus and difficulty chewing, and loss of left ear function. He has a history of bilateral hearing loss pre-- diagnosis. Since surgery he has had minimal pain. He has had persistent loss of left 7th nerve function; the lower portion of the 7th nerve had to be sacrificed during surgery, but even without surgical section the upper fibers of the facial nerve have not regained function. He has therefore chronic left ectropion and poor lid function; surgical revision of the left eyelid is being contemplated to improve closure. He has had no corneal complaints however. His surgical wounds are slowly healing, but he still has some open/granulating areas adjacent to the partial auriculectomy. His is a bit concerned about the open appearance of some of these areas, particularly the erythema around the lower neck incision. His case has been reviewed at head and neck tumor board and I was part of this discussion. Because of the high risk features of his tumor, I am asked to consider the addition of chemotherapy to postoperative radiation to potentially reduce his risk of relapse. 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 His medical history is significant for coronary artery disease, requiring stenting approximately 6 years ago; he has had no recurrent angina, congestive failure symptoms, nor arrhythmia symptoms. He has no complaints that would suggest significant peripheral arterial disease. He also has a history of hepatitis C; he believes he obtained this infection in the when he was gored by a bull while participating in the running of the [employer] in [facility]. Hishepatitis C was treated with interferon plus ribavirin; this induced a PCR-complete remission of theviremia, but left him with chronic cognitive dysfunction. Social history shows that he lives in [facility] with his of 49 years. She works at a [employer]. He has 2 young adult sons living close by. The patient is a former smoker. Review of systems is specifically negative for peripheral neuropathy or history of renal dysfunction. History of bilateral hearing loss, worsened after the loss of his left ear surgically. Otherwise negative for preoperative constitutional, new ADMINISTRATIVE DIRECTOR, new skin, lung, endocrine, hepatic, GI, new , other neurologic, constitutional, or emotional difficulties. He does have a history of BPH with occasional urinary retention. Physical exam: He comes to clinic today with his who is very well-informed and involved. He has a quiet demeanor but is in no acute distress [place] blonde complexion with some solar damage over the head and neck; no obvious new skin cancers Oral exam limited by trismus. No obvious intraoral lesions. Tongue is mobile. Several teeth missing,many fillings. Neck exam shows extensive surgical wounds in the left face and upper neck, mostly healing, with somegranulating areas adjacent to the auriculectomy scar. There is swelling in the left lower neck consistent with the flap, but no obvious tumor masses. Lungs are clear to auscultation percussion. Pectoralis flap harvest site is healing well. Cardiac exam shows a regular rate and rhythm. There is no gallop, but there is an easily heard grade2 flow murmur along the left sternal border. Abdomen is benign, no hepatosplenomegaly or masses. Extremities show no clubbing cyanosis or edema Neurologic exam shows normal motor and sensory function generally. Cranial nerves notable for left peripheral 7th nerve palsy; lower lid is ptotic and upper lid does not close completely. Extraocular eye movements are normal. Reflexes 2+ Imaging: I personally reviewed recent images from: Non-DH MRI 01/11/2020: parotid mass extending deep into parapharyngeal space and lateral pterygoid: CT 02/12/2020: Left temporal bone: Large enhancing mixed cystic and solid mass centered in the left parotid gland. Scattered internal calcifications. The the parotid portion of the mass extends into the left parapharyngeal space and likely involves the left lateral pterygoid muscle. Anteriorly, the mass abuts but does not appear to invade the masseter muscle. No involvement of the carotid sheath. Additional extension into the external auditory canal which is completely opacified with inward bulging of the tympanic membrane. The perineural fat in the stylomastoid foramen is preserved. No expansion of the facial nerve canal to suggest chronic remodeling. No underlying osseous erosion or periosteal reaction. No soft tissue extension into the middle ear. The ossicular chain is displaced medially but appears intact. Partial effusion of the mastoid air cells. Normal morphology of the inner ear structures. PET/CT 02/12/2020: IMPRESSION 1. Highly FDG avid lobulated mass [...] fifth and sixth rib fractures as above Pathology: ... Specimen: ??Parotidectomy, otectomy, temporal bone resection Tumor ?Histologic Type: ??Squamous cell carcinoma ?Histologic Grade: ??Moderately differentiated ?Tumor Size: ??6.8 cm ?Tumor Focality: ??Unifocal ?Tumor Extent: ??Carcinoma involves the ear canal, temporal bone, parotid ? gland, and surrounding soft tissue ?Lymphovascular Invasion: ??Present: ??extensive large vein invasion present ?Perineural invasion: ??Present: ??(focal) ?Margins: ??Cannot be assessed - see discussion Lymph Nodes ?Number of Lymph Nodes Involved: ??1 ?Extranodal Extension: ??Present ?Number of Lymph Nodes Examined: ??38 Stage ?Primary Tumor (pT): ??pT4a (Tumor with gross cortical bone/marrow invasion) ?Regional Lymph Nodes (pN): ??pN3b ?? (Metastasis in any node(s) with EDILBERTO) Impression: Functionally healthy 69-year-old recently status post gross total resection of a large squamous cell carcinoma emerging from the left parotid gland, likely a fast-growing metastatic delmer presentation from a prior left facial squamous cell skin cancer. Both the natural history and pathology of this lesion suggest a very aggressive tumor biology. If no other action is taken, recurrence is almost certain. In the setting, radiation is clearly indicated. The question of the addition of chemotherapy is a difficult one, with little good clinical data to guide us. In mucosal head neck squamous cell cancer, there is clear data to suggest benefit from the addition of chemotherapy to radiation in the presence of positive surgical margins or delmer extracapsular extension. In cutaneous squamous cell cancer, there are only a handful of studies. One nonrandomized series from the [facility] showed relapse-free, but not overall, survival benefit when cisplatin or carboplatin chemotherapy was added to postop radiation (Lydia T et al. Head Neck 2015;37:840-845). Randomized study of radiation plus or minus carboplatin chemotherapy in the same setting did not show benefit (Bertha SV et al. J ClinOncol 2018;36:9619-1455). However, carboplatin appears to be a less effective drug overall for squamous cell carcinoma, and it is unclear if the concept of adjuvant chemoradiation in the setting is futile, or if the study simply did not use the right drug. The mucosal head neck cancer, cisplatin is considered the gold standard of therapy, and is thought to be a more potent radiation business instructor. Given this patient's aggressive cancer, as well as his relative youth, I favor adding cisplatin chemotherapy to his regimen. His hearing loss will need to be watched very closely. Plan: We had a long conversation about his situation, the pathology, the radiographic findings, and the risk of relapse. We talked about the uncertainty of the data for his exact situation. We talked about the potential toxicity of cisplatin chemotherapy, specifically the potential for hearing loss, as well as the usual side effects of nausea and vomiting, fatigue, taste changes, myelosuppression andrisk of infection, potential for renal dysfunction, potential for peripheral neuropathy, and unpredictable/idiosyncratic side effects. I told him that the standard of care in his situation would be radi ation alone, but that I favored using chemotherapy despite its unknowns. After thorough discussion of risks and benefits and uncertainties, he wishes to proceed. His was present for the entire discussion and agrees. We talked about the logistics and scheduling. I recommended placement of a Mediport, and we will proceed with this in the near future. He is already been to his dentist and gotten clearance for radiotherapy; he does need some fillings but apparently no extractions or deep root work. He has a consultation with Dr. Galdamez of radiation oncology later this week. I will stay tuned to the radiation scheduling to arrange weekly cisplatin chemotherapy. I will touch base with Dr Barnett about the surgical sites and possible role of another course of antibiotics. I am grateful for the opportunity to consult with this patient. Followup: at start of treatment. Ashok Ritchie MD, FACP transformation architect Hematology/Oncology Section [facility]/[address] [address] Voice recognition software used for this note; please excuse seat trimmer errors. I personally reviewed past medical, surgical, family medical histories, reviewed current medications, vital signs, labs, and performed full review of systems. These are documented below the narrative for clarity and succinctness. Outpatient Medications Marked as Taking for the 03/10/20 encounter (Office Visit) with Kasey Ritchie MD Medication Sig Dispense Refill ??? white petrolatum-mineral oiL (Refresh-PM) Place 1 [...] tablet Take 100 mg by mouth nightly. Review of Systems: Review of systems is negative for other ADMINISTRATIVE DIRECTOR, bone, pulmonary, cardiac, GI, , extremity, neurologic, endocrine, skin, constitutional, emotional, or functional problems. Vitals Office Visit from 03/10/2020 in Hematology/Oncology at [facility] Weight 74.8 kg (165 lb) Height 175.3 cm (5' 9) BSA (Calculated - sq m) 1.91 sq meters BMI (Calculated) 24.36 Temp 36.8 ??C (98.2 ??F) Temp src Temporal Heart Rate 74 Heart Rate Source Right, NIBP Resp 16 BP 151/71 BP Location Right arm Patient Position Sitting SpO2 100 % Karnofsky Score 80 Body surface area is 1.91 meters squared. Wt Readings from Last 3 Encounters: 03/10/20 74.8 kg (165 lb) 02/28/20 77.6 kg (171 lb) 02/24/20 (S) 74.7 kg (164 lb 11.2 oz) No results found for this or any previous visit (from the past 72 hour(s)). ++++++++++++++++++++++++++++++++++++++++++++++++++++ Nancy Agee RN - 03/10/2020 9:30 AM EST MEDICAL ONCOLOGY INITIAL NURSING ASSESSMENT ADVANCE DIRECTIVES: In [facility] [ x ] Has documents [ ] Will bring in [ ] IF NO: Advance Directive pamphlet provided : Referral to Care Management : PRESENTING SYSTEMS and PATHOLOGY: lump on left side of face that kept getting bigger. REVIEW OF SYSTEMS: see Chau's note Prior Radiotherapy: no[ x ] Yes[ ]Site Date Facility Prior Chemotherapy: no[ x ] Yes[ ] Drug: Oncologist- LastTreatment: Balance difficulty: [x ]no [ ]yes At risk for fall: [ x] no [ ] yes If yes, actions implemented to prevent fall. Patient/family instructed to avoid independent ambulation. Use wheelchair and ask for assistance of staff while in the clinic. ADL [ x ] no limits [ ] needs dressing assistance [ ] needs meal assistance Assistive device:[ x ]none [ ]cane [ ]walker [ ]wheelchair [ ]other: explain PAIN ASSESSMENT: [0 ] out of 10 Location: Description: [ ] Dull [ ] Sharp [ ] Burning [ ] Throbbing [ ] Radiating [ ] Continuous [ ]Intermittent Aggravating Factors: [ ] Movement [ ] Position [ ]Immobility [ ]Other Alleviating Factors: [ ]Medication [ ] Positioning [ ] Other Current Pain Management Plan: [ ]Satisfied [ ] Not satisfied SOCIAL ASSESSMENT: See [facility] social assessment information entered. Support Systems: radha wheeler live nearby transportation plan: x[ ]private vehicle [ ] RCT needs Social Work referral [ ] Unknown at this time needs Social Work referral Barriers to treatment: none at this time Referrals/Interventions: LEARNING STYLE: Visual and verbal, wants written material and verbal discussion. TEACHING: _x_ NCI ???Chemotherapy and You?? and folder given _x_ Specific chemotherapy literature provided and reviewed with patient documented in this encounter Plan of Treatment Upcoming Encounters Date Type Specialty Care Team Description 10/21/2021 Infusion Hematology and Oncology 11/09/2021 Office Visit Hematology and Oncology Alhaji Ritchie MD [facility] DR ONCOLOGY DEPT. [place], [place] [address] (Jin carson) 11/09/2021 Infusion Hematology and Oncology 12/10/2021 Office Visit Dermatology Silas Walters MD [address] [place] [address] DERMATOLOGY [place], [place] [address] (Jin carson) 09/19/2039 Hospital Encounter Surgery Osman Barnett MD [facility] OTOLARYNGOLOGY D EPT. [place], [place] [address] (Jin carson) Scheduled Procedures Name [...] sequela documented as of this encounter Results IR Mediport Placement (04/08/2020 [...] Diagnosis Squamous cell carcinoma of ear, left Hearing loss, unspecified hearing loss t ype, unspecified laterality Squamous cell carcinoma of ear, left documented in this encounter Care Teams Petroleum Refinery Worker Relationship Specialty Start Date End Date Tara Joya MD PCP - General Family Medicine 05/16/[address] [place] [id number] documented as of this encounter
--- OUTSIDE RECORDS SUMMARY | 2021-10-21 08:01 | XMS_ITS | Encounter Summary ---
:1950 Author Organization [facility] [place] [address] Care Team Providers Name Role Phone Tara Joya MD Primary Care Provider [phone] Encounter Details Date Type Department Care Team Description 03/20/2020 Office Visit Otolaryngology at [facility] Urbano Beck Squamous cell carcinoma, ear , left; [facility] NANDA Espino Postoperative wound dehiscence, [place] [address] Center [phone] [place] [address] Social History Tobacco Use Types Packs/Day Years [...] - Inhaled Oxygen Concentration - - Weight 75.9 kg (167 lb 4.8 oz) 03/20/2020 3:22 PM EST Height 175.3 cm (5' 9) 03/20/2020 3:22 PM EST Body Mass Index 24.71 03/20/2020 3:22 PM EST documented in this encounter Progress Notes Urbano Beck PA - 03/20/2020 3:30 PM EST [facility] OTOLARYNGOLOGY FOLLOW UP NOTE Ward Santamaria is a 69 y.o. 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 The patient has a history of a [id number] SCCa of the left parotid, ear canal, temporal bone, and surrounding soft tissues. He underwent left ear tumor resection, total parotidectomy, selective neck dissection, left pectoralis myocutaneous flap reconstruction on 02/20/20. The lower division of his facial nerve had tumor involvement, and was sacrificed; and the upper division was preserved, but did was subjected to significant manipulation during his procedures. He was noted postoperatively to have a HBscore of 5 on the left. The Head and Neck tumor Board recommended adjuvant radiation, with chemotherapy as well due to the severity of his disease. At his hospital check, he appeared to be healing well, but he did subsequently suffer dehiscence of at the flap site as reported by his VNA. He returns today for reassessment of there areas. New issues since last visit: No fevers. Have been doing the dressing changes daily. Some drainage from it. No increasing swelling. Aquacel packing has been delayed, and not available to them. PROBLEM LIST Patient Active Problem List Diagnosis [...] Take 81 mg by mouth daily. ??? HYDROcodone-acetaminophen ([place]) 5-325 mg Tablet Take 1 tablet by mouth every 6 hours as neededfor Pain. (Patient not taking: Reported on 03/10/2020) 15 tablet 0 No current facility-administered medications on file prior to visit. ALLERGIES Allergies Allergen Reactions ??? Penicillins rash ??? Codeine Phosphate Rash ROS 8 point Review of Systems was normal except for pertinent positives and negatives included in the History of Present Illness. PHYSICAL EXAMINATION Physical Examination: VITALS - Height 175.3 cm (5' 9), weight 75.9 kg (167 lb 4.8 oz). GENERAL - Well dressed and well nourished. - Breathing comfortably without stridor. - No acute distress. FACE - Left facial droop noted. - No dysmorphic facial features. EYES - Periocular structures and conjunctiva healthy without lesions. - Pupils are equal, round, and reactive to light. - Extraocular movement is full and intact. - No evidence of nystagmus. EARS Left - Auricle remnant appear healthy. - Flap is warm and pink. Along the anterior aspect there is noted an area of about 6cm of dehiscenceof variable depth ~1/2 cm to 1.5cms, with some granulation tissue and some fibrinous exudate; with no evidence of infection. Along the superior aspect, and with extension to the upper posterior aspect,is another areas of dehiscence of about 7cms, with some heavier fibrinous exudate superiorly, and some granulation tissue; no evidence of infection appreciated. NECK - Left neck aspect of the flap appears healthy, with no evidence of discrete fluid collection or infection; pedicle noted. - Trachea midline without deviation. LUNGS - Clear to auscultation bilaterally without wheezes. HEART - Regular rate and rhythm without murmur. NEURO - HB 5 on the left, including incomplete eye closure; otherwise cranial nerves II-XII intact and symmetric. - Responds appropriately to questions. PSYCHE - Normal mood and affect. PROCEDURES Procedure: wound care Aquacel was gently placed into the 2 defects using a cotton swab, filling the defects. Gauze was then placed over this and taped in place with silk tape. REVIEW OF IMAGES/STUDIES ASSESSMENT/RECOMMENDATIONS Ward Santamaria is a 69 y.o. male with the above-noted history, and physical exam findings, who presented today for wound reassessment. Packed today with aquacel. Discussed with the patient that the packing could be changed every 2-3 days. They have VNA services 3 days per week, currently. Gave supplies for 4 packing changes, given their difficulty with obtaining the ordered supplies. Discussed televisitin the next 7-10 days for reassessment. - The patient expressed understanding of these points and agreement with the plan, and all questionsthat were asked were answered to the patient's satisfaction. Plan: > Wound packing change every 2-3 days. > Televisit in 7-10 days. > Patient should call if their symptoms worsen or fail to improve, if new concerning symptoms arise, or if they have any questions or concerns regarding their treatment. I appreciate the opportunity to be involved in Mr. Santamaria's care. Urbano Beck PA-C [place], [place] [address] Office 03/20/2020 documented in this encounter Plan of Treatment Upcoming Encounters Date Type Specialty Care Team Description 10/21/2021 Infusion Hematology and Oncology 11/09/2021 Office Visit Hematology and Oncology Alhaji Ritchie MD [facility] DR ONCOLOGY DEPT. [place], [place] [address] (Wo rk) 11/09/2021 Infusion Hematology and Oncology 12/10/2021 Office Visit Dermatology Silas Walters MD [address] [place] [address] DERMATOLOGY [place], [place] [address] (Wo rk) 09/19/2039 Hospital Encounter Surgery Osman Barnett MD [facility] OTOLARYNGOLOGY D EPT. [place], [place] [address] (Wo rk) Scheduled Procedures Name [...] encounter documented in this encounter Care Teams Mobile Home Park Manager Relationship Specialty Start Date End Date Tara Joya MD PCP - General Family Medicine 05/16/[address] [place] [address] documented as of this encounter
--- OUTSIDE RECORDS SUMMARY | 2021-10-21 08:01 | XMS_ITS | Encounter Summary ---
:1950 Author Organization [place] [address] Care Team Providers Name Role Phone Tara Joya MD Primary Care Provider [phone] Reason for Visit Reason Comments Follow-up Couple days ago wound opened , has been opening more and more each day. Encounter Details Date Type Department Care Team Description 03/18/2020 Office Visit Otolaryngology at [facility] Kylie Costello, Wound drainage; [facility]ANCE SERVICES MANAGER [facility] CARE [place] [address] [phone] [place] [address] Social History Tobacco Use Types Packs/Day Years [...] - Inhaled Oxygen Concentration - - Weight 77.5 kg (170 lb 14.4 oz) 03/18/2020 3:16 PM EST Height 176.5 cm (5' 9.5) 03/18/2020 3:16 PM EST Body Mass Index 24.88 03/18/2020 3:16 PM EST documented in this encounter Progress Notes Kylie Costello, [facility]URANCE SERVICES MANAGER HEALTH CARE - 03/18/2020 3:30 PM EST [facility] Follow up note Interval Hx: Ward is a 69 year old with a hx of SCCa [id number] Left parotid with invasion to left ear and ear canal s/p resection and reconstruction performed on 02/20/2020 with and . Being seen today with a wound fistula and drainage. 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 Postop diagnosis: Same ?? Procedure: 1. Total parotidectomy with facial nerve preservation 2. Selective neck dissection levels 1B, 2A, 2B, 3 3. Excision of malignant tumor involving left ear 5 cm 4. Excision malignant tumor involving left face 3 cm Left pectoralis major myocutaneous flap harvest with inset 9 x 9 cm 5. Adjacent tissue transfer with closure of chest donor site 9 x 9 cm, 81 cm? Findings at the time of surgery: Findings at the time of surgery as follows: ?? Large tumor involving the lower half of the ear extending down into the ear canal and extending to involve the postauricular skin as well as the preauricular skin. ??The total involvement of tumor was about 8 x 8 cm with 5 cm involving the ear and 3 cm involving the facial skin. ??Tumor was involving the entire parotid gland and the lower division of the facial nerve was encased with tumor and could not be preserved. ??We were able to preserve [...] muscle as well as the glenoid fossa. ?? New issues since last visit: Ward is here for a recheck of his flap. He was seen by todayand the plan is to start radiation therapy next week. The family states there are 3 areas that have opened along the flap in the last few days. They have been packing it daily with wet to dry dressing and also using iodoform gauze. The VNA has been coming in every other day. They are waiting to get Aquacel tmr.He denies any pain. No fevers. HE continues on the Clindamycin tid. He did meet with and has planned for chemotherapy. He does not have a central line in place and his is wondering when that will happen. He continues to have difficulty closing his left eye. HE has been using the ophthalmic drops but hasnot really liked using the eye protection for bedtime. Diet: Normal ?? PROBLEM LIST: Patient Active [...] ??? Hearing loss H91.90 PAST MEDICAL HISTORY: SOCIAL HISTORY: Social History Socioeconomic History ??? [...] file Gets together: Not on file Attends yazidi service: Not on file Active member of [...] with his of 49 years in [employer]. 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 Two adult sons live in this building and are involved in pt's care. MEDICATIONS: Current Outpatient Medications: ??? Ibuprofen 200 mg Capsule, Take by mouth as needed., Disp: , Rfl: ??? clindamycin (CLEOCIN) 300 mg Capsule, Take 1 capsule by mouth 3 times daily., Disp: 30 capsule, Rfl: 0 ??? white petrolatum-mineral oiL (Refresh-PM), Place 1 each into the left eye 2 times daily., Disp: 1 Tube, Rfl: 5 ??? carboxymethylcellulose (REFRESH PLUS) 0.5 % Dropperette, Place 2 drops into both eyes 4 times daily., Disp: 2 Bottle, Rfl: 0 ??? HYDROcodone-acetaminophen ([place]) 5-325 mg Tablet, Take 1 tablet by mouth every 6 hours as needed for Pain. (Patient not taking: Reported on 03/10/2020), Disp: 15 tablet, Rfl: 0 ??? nitroGLYcerin (NITROSTAT) 0.4 mg [...] EXAMINATION: General: Well developed, no distress Head/face: Left facial droop Ears: Left auricle remnant is vascularized. Flap reconstruction is warm and pink. There is a dehiscence along the preauricular area on the left that is approximately .25 cm wide and .5cm long with granulated tissue. There are no deep pockets noted at this area There is another area just below this that is also open with slightly deeper pocket. There is a opening along the post auricular area with dehiscence that is .25 cm long but has a deeper pocket with incision that is draining. This area was cultured. Right auricle is normal. Iodoform gauze was packed in all 3 areas. Aquaphor was applied to this area. Dressing was placed. Oral cavity: Normal exam of the lips, dentition in good condition, floor of mouth without lesions, tongue soft/mobile. Oral mucosa and palate pink, moist. No lesions or bleeding in oral cavity. Oropharynx: soft palate,lateral pharyngeal wall, posterior pharynx symmetric, pink, moist, no lesions. Neck: left neck with incision with fullness along the flap. No evidence of infection. Trachea is midline.. Resp: Speech clear, no stridor, respirations regular and nonlabored. MSK: neck range of motion , pain-free Neuro: HB 5 on the left otherwise CN II-XII grossly intact. Psych: mood and affect appropriate to situation. Responds appropriately to questions. ? Pathology: ? Surgical Pathology DIAGNOSIS A - Left tissue against the TMG, biopsy: ? - Cauterized fibroadipose tissue. No definite carcinoma identified. B - Left temporalis muscle, biopsy: ? - Skeletal muscle and fibrous tissue with focal dystrophic calcification. ? - There is no evidence of malignancy. C - Level 3 left neck, excision: ? - 18 lymph nodes, negative for malignancy. (0/18) D - Level 2A Left neck, excision: ? - Two lymph nodes, negative for malignancy. (0/2) E - Level 1B left neck, excision: ? - Six lymph nodes, negative for malignancy. (0/6) F - Level 2B Left Neck, excision: ? - Eight lymph nodes, negative for malignancy. (0/8) G - Otectomy, parotidectomy, temporal bone, resection: ? - Squamous cell carcinoma. (See synoptic report) ? - Metastatic squamous cell carcinoma involving one out of four parotid/ ? periparotid lymph nodes. (1/4) ? - Extensive venous invasion present. ?- Carcinoma involves the deep-central soft tissue margin and the ? anterior-inferior soft tissue margin. ?(see Discussion.) H - Deep lobe parotid Left, excision: ? - Squamous cell carcinoma, extensively involving fibrous soft tissue and large ?veins. ? - Carcinoma extends to specimen tissue edges. ? - The clipped vascular margin is negative for tumor. Electronically signed by: ??MD Margaret, Brad Bocanegra Verified: ??03/11/2020 ?Pathologist Performed at: ??-[facility] Dept. of Pathology, [place], [place] SYNOPTIC SQUAMOUS CELL CARCINOMA OF SKIN OF HEAD AND NECK Specimen Parts: ??A - H Specimen: ??Parotidectomy, otectomy, temporal bone resection Tumor ?Histologic Type: ??Squamous cell carcinoma ?Histologic Grade: ??Moderately differentiated ?Tumor Size: ??6.8 cm ?Tumor Focality: ??Unifocal ?Tumor Extent: ??Carcinoma involves the ear canal, temporal bone, parotid ? gland, and surrounding soft tissue ?Lymphovascular Invasion: ??Present: ??extensive large vein invasion present ?Perineural invasion: ??Present: ??(focal) Margins . SYNOPTIC ?Margins: ??Cannot be assessed - see discussion Lymph Nodes ?Number of Lymph Nodes Involved: ??1 ?Extranodal Extension: ??Present ?Number of Lymph Nodes Examined: ??38 Stage ?Primary Tumor (pT): ??pT4a (Tumor with gross cortical bone/marrow invasion) ?Regional Lymph Nodes (pN): ??pN2a ?? (Metastasis in a single ipsilateral lymph ? node larger than 3 cm but not larger than 6 cm and without EDILBERTO) Tumor Block(s): ??G10 Normal Block(s): ??G22 (AJCC 8th Edition) DISCUSSION Amended Report - This case was amended on 03/11/2020 following discussion with ??Dr. Galdamez by e-mail. The pathologic dlemer (pN) staging has been updated to reflect ??the accurate pN stage (pN2a). No other changes were made to this report. Clinical/surgical correlation is needed to determine relationship of separately ??submitted margins/tissues. Carcinoma involves soft tissue margins of the main ??specimen (Part G) as well as the deep lobe of parotid speciment margins (Part H). ?? ASSESSMENT/RECOMMENDATIONS: Assessment: Hx of of SCCa [id number] Left parotid with invasion to left ear and ear canal s/p resectionand reconstruction performed on 02/20/2020 with and . Being seen today with a wound/dehiscence with fistula and drainage. Plan: The wound was cultured today, cleaned and repacked. They are waiting to get the Aquacel packing tmr. VNA is coming tmr. He will f/u on with Urbano Major for a recheck. We will letthem know the results of the culture. Continue with the Clindamycin. Plan on proceeding with the radiation schedule next week. A mediport will be needed for Chemotherapy and the orders have been placed on 03/10 documented in this encounter Plan of Treatment Upcoming Encounters Date Type Specialty Care Team Description 10/21/2021 Infusion Hematology and Oncology 11/09/2021 Office Visit Hematology and Oncology Alhaji Ritchie MD [facility] DR ONCOLOGY DEPT. [place], [place] [address] (Wo rk) 11/09/2021 Infusion Hematology and Oncology 12/10/2021 Office Visit Dermatology Silas Walters MD [address] [facility] DERMATOLOGY [place], [place] [address] (Wo rk) 09/19/2039 Hospital Encounter Surgery Osman Barnett MD [facility] OTOLARYNGOLOGY D EPT. [place], [place] [address] (Wo rk) Scheduled Procedures Name [...] Name Priority Date/Time Associated Diagnosis Comme nts HC GRAM STAIN FOR Routine 03/18/2020 4:29 PM Wound drainage Re sults for this BACTERIA EST procedure are i n the results section. documented in this encounter Results (ABNORMAL) Abscess/Wound Aspirate Culture Drainage; Cheek (03/18/2020 4:29 PM EST) [facility] Method Time Signature Abscess/Wound Few Serratia marcescens MA RY Aspirate Rare mixed bacterial morphotypes suggestive of n ormal cutaneous kenney [place] Culture (A) [facility] Gram Stain Few Neutrophils seen IMAN Few Gram Positive Cocci seen [facility] (A) [facility] Organism Serratia IMAN marcescens (A) [facility] Organism Gram Positive IMAN Cocci (A) [facility] Specimen Anatomical Collection Method Collection Time Receive d Time (Source) Location / / Volume Laterality Drainage fluid CHEEK STRUCTURE / 03/18/2020 4:29 PM 4:29 sample Unknown EST PM EST (specimen) Resulting Agency Comment Spec In Lab Organism Antibiotic Method Susceptibility Serratia marcescens Amikacin VITEK 2 METHOD Sensitive Serratia marcescens Aztreonam VITEK 2 METHOD Sensitive Serratia marcescens Ceftazidime VITEK 2 METHOD <=1: Sensiti ve Serratia marcescens Ceftriaxone VITEK 2 METHOD Sensitive Comment: This organism carries induci ble Beta-lactamase. ??Monotherapy with Cephalosporins is not advise d. Serratia marcescens Ertapenem VITEK 2 METHOD Sensitive Serratia marcescens Gentamicin VITEK 2 METHOD Sensitive Serratia marcescens Levofloxacin VITEK 2 METHOD Sensitive Comment: Levofloxacin and Ciprofloxac in may not adequately treat infections in critically ill patients even when isolates test susceptible in the laboratory. Contact Infectious Disease b efore using in critically ill patients. Serratia marcescens Meropenem VITEK 2 METHOD <=0.25: Sens itive Serratia marcescens Tetracycline VITEK 2 METHOD Resistant Serratia marcescens Tigecycline VITEK 2 METHOD Sensitive Serratia marcescens Tobramycin VITEK 2 METHOD Sensitive Serratia marcescens Trimethoprim/Sulfa VITEK 2 METHOD Sensitive Kylie E Pravin ASSURANCE SERVICES MANAGER [facility] CARE MICROBIOLOGY - GENERAL ORDER OLYA Performing Organization Address City/State/[place] [address] documented in this encounter Visit Diagnoses Diagnosis Wound drainage Open wound(s) (multiple) of unspecified site(s), without mention of complication Postoperative examination Follow-up examination, following unspeci fied surgery documented in this encounter Care Teams Cream Cheese Maker Relationship Specialty Start Date End Date Tara Joya MD PCP - General Family Medicine 05/16/[address] [place] [address] documented as of this encounter
--- OUTSIDE RECORDS SUMMARY | 2021-10-21 08:01 | XMS_ITS | Encounter Summary ---
:1950 Author Organization [facility] [place] [address] Care Team Providers Name Role Phone Tara Joya MD Primary Care Provider [phone] Encounter Details Date Type Department Care Team Description 03/17/2020 Telephone Otolaryngology at [facility] Lisa Razo, [place] [address] Social History Tobacco Use Types Packs/Day Years Used Date Former Smoker Cigarettes 1 40 Quit: 01/09/20 03 Smokeless Tobacco: Never Used Alcohol Use Standard Drinks/Week Comments No 0 (1 standard drink = 0.6 oz pure alcoho l) Sex Assigned at Date Recorded Not on file documented as of this encounter Miscellaneous Notes Telephone Encounter - Lisa Razo, RN - 03/17/2020 9:59 AM EST Spoke with [facility] CELIA this morning as well as Nika to touch base about new opening on patients neck in addition to new wound. InBasket sent and forwarded to Dr. Barnett and NANDA Bardales for review. Confirmed with CELIA and Nika that proper and updated wound care orders from 03.13.20 are to be usedhere forward. VNA to come assess Ward today 03.17.20. Upcoming appointment for Ward is via video on 03.26.20 but may be changed for in person assessment given wounds. Will discuss with Dr. Barnett and NANDA Bardales. Nika in agreement with plan. CELIA has my direct line for continued questions and concerns as does Nika. documented in this encounter Plan of Treatment Upcoming Encounters Date Type Specialty Care Team Description 10/21/2021 Infusion Hematology and Oncology 11/09/2021 Office Visit Hematology and Oncology Alhaji Ritchie MD [facility] DR ONCOLOGY DEPT. [place], [place] [address] (Wo rk) 11/09/2021 Infusion Hematology and Oncology 12/10/2021 Office Visit Dermatology Silas Walters MD [address] [facility] [address] DERMATOLOGY [place], [place] [address] (Wo rk) 09/19/2039 Hospital Encounter Surgery Osman Barnett MD [facility] OTOLARYNGOLOGY D EPT. [place], [place] [address] (Wo rk) Scheduled Procedures Name [...] on filedocumented in this encounter Care Teams Application Systems Architect Relationship Specialty Start Date End Date Tara Joya MD PCP - General Family Medicine 05/16/[address] [place] [address] documented as of this encounter
--- OUTSIDE RECORDS SUMMARY | 2021-10-21 08:01 | XMS_ITS | Encounter Summary ---
:1950 Author Organization [facility] [place] [address] Care Team Providers Name Role Phone Tara Joya MD Primary Care Provider [phone] Encounter Details Date Type Department Care Team Description 03/10/2020 Unscheduled Hematology/Oncology Caterina Aguirre Squam ous cell Encounter at [facility] RD carcinoma of ear, [address] [place] [address] [place] [address] Social History Tobacco Use Types Packs/Day Years Used Date Former Smoker Cigarettes 1 40 Quit: 01/09/20 03 Smokeless Tobacco: Never Used Alcohol Use Standard Drinks/Week Comments No 0 (1 standard drink = 0.6 oz pure alcoho l) Sex Assigned at Date Recorded Not on file documented as of this encounter Progress Notes Caterina Aguirre, TANIA - 03/10/2020 11:54 AM EST [facility] Initial Dietitian Assessment Seen By: Caterina Aguirre RD LD [...] Squamous cell carcinoma of ear, left C44.229 Meds: reviewed Labs: n/a Estimated body mass index is 24.37 kg/m?? as calculated from the following: Height as of an earlier encounter on 03/10/20: 175.3 cm (5' 9). Weight as of an earlier encounter on 03/10/20: 74.8 kg (165 lb). Wt Readings from Last 3 Encounters: 03/10/20 74.8 kg (165 lb) 02/28/20 77.6 kg (171 lb) 02/24/20 (S) 74.7 kg (164 lb 11.2 oz) denies weight loss, although weight on clinic scale is lower than reported UBW Wt Hx: UBW: ~170 lbs % UBW: IBW: +/- 10% % IBW: ___ Edema ___ Ascites ___Muscle wasting Calorie needs: 4437-4398 (30-35 kcal/kg) Protein needs: 112 grams (1.5 [...] likes include eggs, oatmeal w/milk, ice cream Nutrition support: no g-tube present at this time Supplements/Frequency: not using at this time; does have Ensure at home and is open to using ___ Ensure/Plus ___ Boost/Plus ___ CIB ___ Other: Teas, vitamins, or other nutritional supplements: Food allergies or avoidances: denies Appetite: good; improved since hospitalization Nausea: n/a Vomiting: n/a Chewing: takes longer, small bites at a time Dentition: teeth present Swallowing: denies difficulty Taste Changes: n/a Bowels: did not discuss Food availability/purchasing, meal planning and preparation: self, Social Support: Physical Activity: did not discuss Anticipated adherence/understanding: good Nutrition Diagnosis: 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 Initial meeting with patient today following his visit with Dr. Ritchie. present for visit as well. Discussed goal to maintain adequate intake of calories and protein to preserve LBM and achieve weight maintenance during treatment. Patient has been trying to eat more and is willing to incorporate nu trition supplements, such as Ensure, as needed to support energy needs. is very supportive and is accepting of handouts/recipes/food suggestions as patient goes through treatment. Nutrition Intervention: ? Increase caloric needs ? Modify diet consistency: as tolerated - softer foods easier to chew at this time ? Increase frequency of meals and snacks ? Need for supplements: discussed options, patient states he is willing to use ? Addressed questions r/t types of foods best during treatment; potential taste changes; protein foods Educational Handouts provided: ? Soft and moist high protein foods Monitoring and Evaluation: Will follow up upon start of treatment. I have provided him with my card and contact information should he have any questions in the mean time. Thank you for this consult. documented in this encounter Plan of Treatment Upcoming Encounters Date Type Specialty Care Team Description 10/21/2021 Infusion Hematology and Oncology 11/09/2021 Office Visit Hematology and Oncology Alhaji Ritchie MD [facility] DR ONCOLOGY DEPT. [place], [place] [address] (Jin carson) 11/09/2021 Infusion Hematology and Oncology 12/10/2021 Office Visit Dermatology Silas Walters MD [address] [place] [address] RD DERMATOLOGY [place], [place] [address] (Jin carson) 09/19/2039 Hospital Encounter Surgery Osman Barnett MD [facility] OTOLARYNGOLOGY Sharlene EPT. [place], [place] [address] (Wo rk) Scheduled Procedures Name [...] left documented in this encounter Care Teams Paint Factory Worker Relationship Specialty Start Date End Date Tara Joya MD PCP - General Family Medicine 05/16/[address] [place] [address] documented as of this encounter
--- OUTSIDE RECORDS SUMMARY | 2021-10-21 08:01 | XMS_ITS | Encounter Summary ---
:1950 Author Organization [facility] [place] [address] Care Team Providers Name Role Phone Tara Jyoa MD Primary Care Provider [phone] Reason for Referral Consultation (Routine) - Specialty Diagnoses / Procedures Referred By Contact Refer red To Contact Radiation Oncology Diagnoses Squamous cell carcinoma of ear, left Eleazar Galdamez MD [facility] Rad Onc Office Procedures Simulation for Radiation Therapy Planning [address] [place] [phone] Fax: Referral ID Status Reason Start Date Expiration Date Visits V isits Requested Authorized [id number] Consult, 03/17/2020 06/15/2020 33 33 Test & Treat Reason for Visit Consultation (Routine) - Closed Specialty Diagnoses / Procedures Referred By Contact Refer red To Contact Radiation Oncology Diagnoses Squamous cell carcinoma, ear, left Urbano Beck, Eleazar Meza MD [facility] Otolaryngology RADIATION ONCOLOGY [address] [address] Fax: Referral ID Status Reason Start Date Expiration Date Visits V isits Requested Authorized [id number] Closed Consult, 02/28/2020 02/27/2021 1 1 Test & Treat Encounter Details Date Type Department Care Team Description 03/12/2020 Office Visit Radiation Oncology at Eleazar Galdamez, Squamous cell [facility] carcinoma of ear, left [address] [place] [phone] RADIATION ONCOLOGY [phone] SONIA AMEZCUA [address] Social History Tobacco Use Types Packs/Day Years Used Date Former Smoker Cigarettes 1 40 Quit: 01/09/20 03 Smokeless Tobacco: Never Used Alcohol Use Standard Drinks/Week Comments No 0 (1 standard drink = 0.6 oz pure alcoho l) Sex Assigned at Date Recorded Not on file documented as of this encounter Last Filed Vital Signs Vital Sign Reading Time Taken Comments Blood Pressure 135/73 03/12/2020 11:01 AM EST Pulse 73 03/12/2020 11:01 AM EST Temperature 37 ??C (98.6 ??F) 03/12/2020 11:01 AM EST Respiratory Rate 18 03/12/2020 11:01 AM EST Oxygen Saturation 99% 03/12/2020 11:01 AM EST Inhaled Oxygen Concentration - - Weight 74.8 kg (165 lb) 03/12/2020 11:01 AM EST Height - - Body Mass Index 24.37 03/10/2020 9:28 AM EST documented in this encounter Progress Notes Eleazar Galdamez MD - 03/12/2020 11:00 AM EST Images from the original note were not included. Radiation Oncology New Patient Visit PATIENT NAME: Ward Santamaria DATE OF : 1950 HISTORY OF PRESENT ILLNESS Ward Santamaria is a 69 y.o. 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 Walters), who presented with a mass in the left parotid. The mass came on suddenly in November of 2019, and he developed pain associated with chewing, a sensation of malocclusion, local tenderness, as well as hearing loss in the left ear. He was seen by Dr. Barahona on 12/28/19 after a course of antibiotics prescribed by his PCP was ineffective. An MRI was obtained on 01/11/20 demonstrating findings concerning for a malignancy (see below), and an FNA was performed on 01/17/20. Biopsy was concerning for malignancy per the patient, but we do not have the report. He was seen by on 01/31/20, and a mass was noted involving the left parotid gland with involvement of thelower auricle and EAR; biopsy was performed of the EAC component of the mass, and returned as an invasive squamous cell carcinoma. He underwent a CT of the temporal bone and PET-CT as noted below. Surgery as per below. Prior to surgery he was experiencing pain, but no altered sensation or strength. Staging & Therapy MRI HN w/ contrast 01/11/20: ovoid enhancing mass in the left parotid, 3.7 cm max dimension, abutting and possibly invading the pinna. The superior aspect of the mass abuts the EAC. A separate lesion in the inferior aspect of the parotid measures 1.3 cm, most consistent with adenopathy, with two othersmaller intra- parotid nodes evident. Biopsy of friable mass in the left EAC 01/31/20: Squamous cell carcinoma, (fragments), moderately differentiated, associated with ulcer exudate/necrosis. CT Temporal bone with contrast 02/12/20:Large enhancing mixed cystic and solid mass centered in the left parotid gland. The parotid portion of the mass extends into [...] soft tissue extension into the middle ear. PET-CT 02/12/20: Intensely FDG avid lobulated solid mass with punctate calcification involving the left parotid gland and external auditory canal measuring approximately 5.7 x 6.1 in axial diameter. NoFDG avid regional delmer or suspected distant metastasis identified. Total parotidectomy with facial nerve preservation, Selective neck dissection levels 1B, 2A, 2B, 3, Excision of malignant tumor involving left ear 5 cm, Excision malignant tumor involving left face 3 cm, Left pectoralis major myocutaneous flap harvest with inset 9 x 9 cm, Adjacent tissue transfer with closure of chest donor site 9 x 9 cm, 81 cm?? 02/20/20 -Findings: large tumor involving the lower half of the ear extending down into the ear canal and extending to involve the postauricular skin as well as the preauricular skin. The total involvement of tumor was about 8 x 8 cm with 5 cm involving the ear and 3 cm involving the facial skin. Tumor was involving the entire parotid gland and the lower division of the facial nerve was encased with tumor andcould not be preserved. We were able to preserve the upper division however due to significant manipulation of the nerve the nerve did not stimulate at the main trunk once tumor was removed. Tumor extended into the deep lobe and the parapharyngeal space and resection did include the styloid bone with the muscular attachments. Branches of the carotid artery were also identified and ligated coming off of the external carotid. Tumor abutted the masseter muscle as well as the glenoid fossa. -Pathology: Specimen: ??Parotidectomy, otectomy, temporal bone resection Tumor ?Histologic Type: ??Squamous cell carcinoma ?Histologic Grade: ??Moderately differentiated ?Tumor Size: ??6.8 cm ?Tumor Focality: ??Unifocal ?Tumor Extent: ??Carcinoma involves the ear canal, temporal bone, parotid ? gland, and surrounding soft tissue ?Lymphovascular Invasion: ??Present: ??extensive large vein invasion present ?Perineural invasion: ??Present: ??(focal) Margins ?Margins: ??Cannot be assessed - see discussion Clinical/surgical correlation is needed to determine relationship of separately submitted margins/tissues. Carcinoma involves soft tissue margins of the main ??specimen (Part G) as well as the deep lobe of parotid speciment margins (Part H). Lymph Nodes ?Number of Lymph Nodes Involved: ??1 ?Extranodal Extension: ??Present ?Number of Lymph Nodes Examined: ??38 Metastatic squamous cell carcinoma involving one out of four parotid/ ? periparotid lymph nodes. (03/24) ? - Extensive venous invasion present. Post Tx Expected course post surgery Other Pertinent Issues: None Currently, he has the following symptoms: Symptom Description Intervention Pain / Odynophagia No pain associated with head / neck. Dysphagia No dysphagia, but chewing is difficult with food retained in left aspect of cheek Dental Dental clearance Voice No issues with articulation Xerostomia / Dysgeusia Xerostomia at baseline, mild. No dysgeusia. Nutrition / Weight Loss Able to eat some solids, no difficulty with soft solids and liquids. PEG N Altered Strength Facial droop on left since surgery, from brow to mandible Altered Sensation Notes no altered sensation. Neck Symptoms Swelling of left neck, started on antibiotics yesterday; sensation of stiffness on left Trismus Difficulty with opening mouth wide, pain with end excursionl Hearing / Otalgia No hearing on left; hearing aid on right Actively Smoking Distant smoking hx, quit in 2000 Pack Years ~ 40 Distance from [facility] ~ 35 minutes Other No issues ECOG PS: 1 Grade ECOG PERFORMANCE STATUS 0 Fully active, [...] totally confined to bed or chair EXAM There were no vitals filed for this visit. Physical Exam Constitutional: Appearance: He is well-developed. HENT: Head: Comments: Healing graft site with eschar, and one ~ 1 cm area in the pos- auricular area with a wickin place that is still open. No findings concerning for infection. Left facial droop. Eyes: Pupils: Pupils are equal, round, and reactive to light. Neck: Comments: Palpation reveals no adenopathy in facial, cervical, SCLV, ICLV delmer basins. Cardiovascular: Rate and Rhythm: Normal rate. Pulmonary: Effort: Pulmonary effort is normal. Breath sounds: Normal breath sounds. Skin: Findings: No erythema. Neurological: Mental Status: He is alert and oriented to person, place, and time. Cranial Nerves: No cranial nerve deficit. Comments: Left CN VII palsy, complete. Left V2/V3 deficits relative to right. Otherwise no CN deficits. Psychiatric: Behavior: Behavior normal. PROCEDURE: HISTORY Allergies as of 03/12/2020 - Review Complete 03/10/2020 Allergen Reaction Noted ??? Penicillins ??? Codeine phosphate No past medical history on file. Past Surgical History: Procedure Laterality Date ??? KIDNEY STONE SURGERY ??? PRG SOMATOSENSORY TEST, ANY/ALL PER. NERVES, TRUNK OR HEAD N/A 02/20/2020 FACIAL NERVE MONITORING, SETUP PERIPHERAL (WRVU 0.54) performed by Osman Barnett MD at [facility] MAIN OR ??? PRO ADJ TISS TRANSFER/REARRANGEMENT ANY AREA 30.1-60 SQCM Left 02/20/2020 ADJACENT TISSUE TRANSFER OR REARRANGEMENT; 30.1 TO 60.0 SQ CM, THORAX (WRVU 12.65) performed by Osman Barnett MD at [facility] MAIN OR ??? PRO ADJ TISS TRANSFER/REARRANGEMENT ANY AREA EA ADDL 30SQCM Left 02/20/2020 ADJACENT TISSUE TRANSFER OR REARRANGEMENT; EA ADD'L 30.0 SQ CM, OR PART OF (WRVU 3.73) performed byOsman Barnett MD at [facility] MAIN OR ??? PRO COLONOSCOPY, REMV LESN, SNARE N/A 07/07/2015 COLONOSCOPY, POLYPECTOMY, REMOVAL LESION BY SNARE performed by Jose Manuel Heller MD at [facility] ENDOSCOPY ??? PRO EXC PAROTD, TOTAL, DISSECT 5TH NERV Left 02/20/2020 EXCISION OF PAROTID TUMOR OR PAROTID GLAND, TOTAL, WITH DISSECTION AND PRESERVATION OF FACIAL NERVE(WRVU 19.53) performed by Osman Barnett MD at [facility] MAIN OR ??? PRO EXC SKIN MALIG 3.1-4CM FACE, FACIAL Left 02/20/2020 EXC MALIGNANT LESION, 3.1 TO 4.0CM, FACE (WRVU 4.34) performed by Osman Barnett MD at [facility] MAIN OR ? ? PRO EXC SKIN MALIG >4CM FACE, FACIAL Left 02/20/2020 EXC MALIGNANT LESION, >4.0CM, EARS (WRVU 6.26) performed by Osman Barnett MD at [facility] VANNESA ??? PRO MICROSURG TECHNIQUES, REQ OPER MICROSCOPE N/A 02/20/2020 MICROSCOPE USE (WRVU 3.46) performed by Neo Gilman MD at [facility] MAIN OR ??? PRO MUSCLE-SKIN FLAP, TRUNK Left 02/20/2020 FLAP, MYOCUTANEOUS OR FASCIOCUTANEOUS, TRUNK (WRVU 19.86) performed by Osman Barnett MD at [facility] MAIN OR ??? PRO REMOVAL NODES, NECK, CERV MOD RAD Left 02/20/2020 @CERVICAL LYMPHADENECTOMY (MODIFIED RADICAL NECK DISSECTION) (WRVU 23.95) performed by Osman Barnett MD at [facility] OR ??? PRO RESECT TEMPORAL BONE, STOPPER MAKER HELPER APPRCH Left 02/20/2020 @RESECTION TEMPORAL BONE, EXTERNAL APPROACH (WRVU 37.42) performed by Neo Gilman MD at [facility] Social History Socioeconomic History ??? Marital status: [...] since quittin.1 ??? Smokeless tobacco: Never Used Substance and Sexual Activity ??? Alcohol use: No ??? Drug use: No ??? Sexual activity: Not on file Lifestyle ??? Physical activity Days per week: Not on file Minutes per session: Not on file ??? Stress: Not on file Relationships ??? Social connections Talks on phone: Not on file Gets together: Not on file Attends yazdanism service: Not on file Active member of [...] with his of 49 years in [employer]. 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 Two adult sons live in this building and are involved in pt's care. Family History Problem Relation Age of Onset [...] to Visit Medication Sig Dispense Refill ??? clindamycin (CLEOCIN) 300 mg Capsule Take 1 capsule by mouth 3 times daily. 30 capsule 0 ??? white petrolatum-mineral oiL (Refresh-PM) Place 1 each into the left eye 2 times daily. 1 Tube 5 ??? carboxymethylcellulose (REFRESH PLUS) 0.5 % Dropperette Place 2 drops into both eyes 4 times daily. 2 Bottle 0 ??? HYDROcodone-acetaminophen ([place]) 5-325 mg Tablet Take 1 tablet by [...] facility-administered medications on file prior to visit. IMAGING I have personally reviewed the imaging reports and images referenced in the oncologic hx and agree with the assessment as stated. Further pertinent imaging data below CONTRAINDICATIONS TO RADIOTHERAPY NO YES: Date, site, dose (women only) X Prior Radiotherapy X Collagen-Vascular dz X ASSESSMENT / PLAN HN CANCER Staging CT HN PET-CT Oncologic Resection, now ~ 3 weeks out from surgery Further Staging None Required Therapy Discussion Ward Santamaria has received an oncologic resection of his malignancy. he has high risk features including pT4a disease, EDILBERTO (+), extensive LVSI, and a (+) maring. The patient's case has been reviewed at the NCC tumor board and it was felt adjuvant chemoradiotherapy would be the best option for potential cure of his locally advanced malignancy. These recommendations are in line with NCCN recommendations. We discussed the rationale, logistics (including simulation, planning, and treatment) and efficacy of adjuvant chemoradiotherapy in detail. We discussed the risks of therapy, including but not limitedto short term sequelae (fatigue, skin erythema, mucositis, dysphagia, ageusia, xerostomia, weight loss) and long-term sequelae (tissue fibrosis, lymphedema, dysphagia, xerostomia, osteoradionecrosis, increased risk of dental caries, and the possibility of significant damage to soft tissue, bone or skin requiring surgical or medical intervention). Mr. Santamaria expressed an understanding of these risks. We discussed data demonstrating the benefit of starting expeditiously, within 6 weeks of completing treatment. He does have a small area that has not fully healed, but I would propose simulation next week with continued healing anticipated in order t o start ZOE. The patient had a number of questions regarding optimal therapy and potential side effects. These questions were answered to his satisfaction Therapy Decision Proceed with radiotherapy Supportive Care Enteral Nutrition Feeding tube: not recommended Referrals Voltage Regulator Assembler, DIRECTOR OF BUSINESS APPLICATIONS OTHER ISSUES None Charlene Zeng RN - 03/12/2020 11:00 AM EST RADIATION ONCOLOGY NURSING INITIAL NURSING ASSESSMENT IDENTIFICATION: Ward Santamaria is a 69 y.o. year-old male with a Squamous cell carcinoma. PRESENTING SYMPTOMS/CHIEF COMPLAINT: Patient noted rapid growing mass in left preauricular area. REVIEW OF SYSTEMS: Review of Systems Constitutional: Negative for appetite change. HENT: Positive for hearing loss. Eyes: Positive for eye problems. Respiratory: Negative for shortness of breath. Neurological: Positive for numbness (left facial). Negative for headaches. IN THE PAST 12 MONTHS HAVE YOU: Fallen more than one time? No Injured yourself as result of the fall? No Experienced difficulty with walking/problems with balance? No Do you use any assistive devices? No Any history of collagen vascular diseases:No Any Implanted Devices/Hardware: Yes Cardiac stent If yes please put alert in ARIA patient summary Prior Radiotherapy: Yes Prior Chemotherapy: Yes Prior Hormone Therapy: No LEARNING ASSESSMENT REVIEWED: Yes ADVANCED DIRECTIVE: PAIN ASSESSMENT: 0 out of 10 *eD-H Adult PCS Flow Sheet if 4 or above SOCIAL ASSESSMENT: See EDH social assessment information entered. Support Systems: Nika Barriers to treatment: None identified Referrals/Interventions: MUSEUM OR ZOO DIRECTOR per routine RADIATION SPECIFIC TEACHING: [facility] Radiation Therapy and You Site specific teaching : Site specific teaching to be done by nursing on day of simulation. Other: PLAN: Per Dr. Galdamez documented in this encounter Plan of Treatment Upcoming Encounters Date Type Specialty Care Team Description 10/21/2021 Infusion Hematology and Oncology 11/09/2021 Office Visit Hematology and Oncology Alhaji Ritchie MD [facility] DR ONCOLOGY DEPT. [place], [place] [address] (Jin carson) 11/09/2021 Infusion Hematology and Oncology 12/10/2021 Office Visit Dermatology Silas Walters MD [address] [place] [address] D[place]MATOLOGY [place], [place] [address] (Jin carson) 09/19/2039 Hospital Encounter Surgery Osman Barnett MD [facility] OTOLARYNGOLOGY Sharlene EPT. [place], [place] [address] (Wo rk) Scheduled Orders Name Type Priority Associated Diagnoses Order S chedule Simulation for Procedures Routine Squamous cell Ordered: Radiation Therapy carcinoma of ear, left Planning Scheduled Procedures Name [...] left documented in this encounter Care Teams Outside Maintenance Worker Relationship Specialty Start Date End Date Tara Joya MD PCP - General Family Medicine 05/16/[address] [place] [address] documented as of this encounter
--- OUTSIDE RECORDS SUMMARY | 2021-10-21 08:01 | XMS_ITS | Encounter Summary ---
:1950 Author Organization [facility] [place] [address] Care Team Providers Name Role Phone Tara Joya MD Primary Care Provider [phone] Encounter Details Date Type Department Care Team Description 03/13/2020 Notes Only Otolaryngology at [facility] [place] [address] Social History Tobacco Use Types Packs/Day Years Used Date Former Smoker Cigarettes 1 40 Quit: 01/09/20 03 Smokeless Tobacco: Never Used Alcohol Use Standard Drinks/Week Comments No 0 (1 standard drink = 0.6 oz pure alcoho l) Sex Assigned at Date Recorded Not on file documented as of this encounter Progress Notes Lisa Ellis RN - 03/13/2020 10:53 AM EST Received call back from Steve RYAN from [facility]. Reviewed orders for dressing changes as directed by Saurav VEE. He verbalized understanding. They are working on getting the Aquacel dressings. Reviewed need to change the dressing daily if Aquacel is not used. He states that he is working with the patient's SO so that she can do the dressing changes daily. Instructed to call with questions,signs of infection or concerns. documented in this encounter Plan of Treatment Upcoming Encounters Date Type Specialty Care Team Description 10/21/2021 Infusion Hematology and Oncology 11/09/2021 Office Visit Hematology and Oncology Alhaji Ritchie MD [facility] DR ONCOLOGY DEPT. [place], [place] [address] (Wo rk) 11/09/2021 Infusion Hematology and Oncology 12/10/2021 Office Visit Dermatology Silas Walters MD [address] DERMATOLOGY [place], [place] [address] (Wo rk) 09/19/2039 Hospital Encounter Surgery Osman Barnett MD [facility] OTOLARYNGOLOGY D EPT. [place], [place] [address] (Wo rk) Scheduled Procedures Name [...] on filedocumented in this encounter Care Teams Operational Trainer Relationship Specialty Start Date End Date Tara Joya MD PCP - General Family Medicine 05/16/[address] [place] [address] documented as of this encounter
--- OUTSIDE RECORDS SUMMARY | 2021-10-21 08:01 | XMS_ITS | Encounter Summary ---
:1950 Author Organization [facility] [place] [address] Care Team Providers Name Role Phone Tara Joya MD Primary Care Provider [phone] Reason for Referral Consultation (Routine) - Closed Specialty Diagnoses / Procedures Referred By Contact Refer red To Contact Hematology and Oncology Diagnoses Squamous cell carcinoma, ear, left Urbano Beck Davis, Thomas H, MD PA [facility] [address] [place] [address] Referral ID Status Reason Start Date Expiration Date Visits V isits Requested Authorized [id number] Closed Consult, 02/28/2020 02/27/2021 1 1 Test & Treat Consultation (Routine) - Closed Specialty Diagnoses / Procedures Referred By Contact Refer red To Contact Radiation Oncology Diagnoses Squamous cell carcinoma, ear, left Urbano Beck, Eleazar Meza MD [facility] Otolaryngology [place] [address] Fax: Referral ID Status Reason Start Date Expiration Date Visits V isits Requested Authorized [id number] Closed Consult, 02/28/2020 02/27/2021 1 1 Test & Treat Encounter Details Date Type Department Care Team Description 02/28/2020 Office Visit Otolaryngology at [facility] Urbano Beck Squamous cell [facility] N[facility] [place] carcinoma, ear, [place] [address] [facility] [phone] [place] Otolaryngology [place], [place] [address] Social History Tobacco Use Types [...] - Inhaled Oxygen Concentration - - Weight 77.6 kg (171 lb) 02/28/2020 4:22 PM EST Height 175.3 cm (5' 9) 02/28/2020 4:22 PM EST Body Mass Index 25.25 02/28/2020 4:22 PM EST documented in this encounter Progress Notes Urbano Beck PA - 02/28/2020 4:30 PM EST [facility] OTOLARYNGOLOGY FOLLOW UP NOTE Ward Santaamria is a 69 y.o. 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 This 69-year-old male has a history of a rapidly growing large mass involving the left parotid ear and facial skin both preauricular and postauricular who presents for resection and reconstruction. He is also undergoing a temporal bone resection as part of resection of the portion of tumor extending into the middle ear which was performed by Dr. Gilman. He underwent the following procedures on 02/20/20: 1. Total parotidectomy with facial nerve preservation 2. Selective neck dissection levels 1B, 2A, 2B, 3 3. Excision of malignant tumor involving left ear 5 cm 4. Excision malignant tumor involving left face 3 cm Left pectoralis major myocutaneous flap harvest with inset 9 x 9 cm 5. Adjacent tissue transfer with closure of chest donor site 9 x 9 cm, 81 cm?? Findings at the time of surgery as follows: Large tumor involving the lower half of the ear extending down into the ear canal and extending to involve the postauricular skin as well as the preauricular skin. The total involvement of tumor was about 8 x 8 cm with 5 cm involving the ear and 3 cm involving the facial skin. Tumor was involving the e ntire parotid gland and the lower division of the facial nerve was encased with tumor and could not be preserved. We were able to [...] muscle as well as the glenoid fossa. He was noted to have HB 5 on the left on discharge, with incomplete eye closure, and he was given a moisture chamber for this. His flap was healthy. He was discharged home on 02/26/20. New issues since last visit: Doing well. Some pain in the neck at night. Takes Advil for that, and uses one oxycodone at night to help him sleep. Nutrition is going well, but hard stuff is difficult to chew. Breathing without difficulty. Swallowing without difficulty. Incision has not had any bleeding or drainage. Patient is unsure if there has been any worsening swelling. Has not had fevers, chills, night sweats. Drains putting out minimal output. Couldn't tolerate the moisture chamber, was hurting. Has been the drops for his eye. Not doing any ointment. No pain in the eye. Has difficulty sleeping at night as cannot close his eye. 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 SOCIAL HISTORY Social History Tobacco Use ??? Smoking status: Former Smoker Packs/day: 1.00 Years: 40.00 Pack years: 40.00 Types: Cigarettes Quit date: 01/08/2003 Years since quittin.1 ??? Smokeless tobacco: Never Used Substance Use Topics ??? Alcohol use: No MEDICATIONS Current Outpatient Medications on File Prior to Visit Medication Sig Dispense Refill ??? carboxymethylcellulose (REFRESH PLUS) 0.5 % Dropperette Place 2 drops into both eyes 4 times daily. 2 Bottle 0 ??? HYDROcodone-acetaminophen ([place]) 5-325 mg Tablet Take 1 tablet by mouth every 6 hours as neededfor Pain. 15 tablet 0 ??? nitroGLYcerin (NITROSTAT) 0.4 [...] Take 100 mg by mouth nightly. ??? HYDROcodone-acetaminophen ([place]) 5-325 mg Tablet Take 1 tablet by mouth every 6 hours as neededfor Pain. (Patient not taking: Reported on 02/28/2020) 10 tablet 0 ??? ciprofloxacin (CILOXAN) 0.3 % Drops Place 5 mLs into both ears 2 times daily. ??? aspirin 81 mg EC tablet Take 81 mg by mouth daily. ??? COQ10, UBIQUINOL, ORAL Take 200 mg by mouth daily. No current facility-administered medications on file prior to visit. ALLERGIES Allergies Allergen Reactions ??? Penicillins rash ??? Codeine Phosphate Rash ROS 8 point Review of Systems was normal except for pertinent positives and negatives included in the History of Present Illness. PHYSICAL EXAMINATION Physical Examination: VITALS - Height 175.3 cm (5' 9), weight 77.6 kg (171 lb). GENERAL - Well dressed and well nourished. - Breathing comfortably without stridor. - No acute distress. FACE - Left facial droop noted. - No dysmorphic facial features. EYES - Periocular structures and conjunctiva healthy without lesions. - Pupils are equal, round, and reactive to light. - Extraocular movement is full and intact. - No evidence of nystagmus. EARS Left: - Auricle remnant appears healthy, with some duskiness; flap reconstruction appears healthy, warm and pink, with incision lines well-approximated with absorbable sutures in place. Right: - Auricle normal exam. NOSE - Grossly patent anteriorly. MOUTH - Lips and gingiva pink, moist, without lesions. - Gums/dentition healthy. - Tongue and floor of mouth without lesions or masses. - Hard palate without lesions. PHARYNX - Soft palate without lesions. - Uvula is midline. - Oropharynx symmetric. NECK - Left neck with absorbable sutures in place, well-approximated, with some minor kailyn-incisional fullness that is soft; no evidence of fluid collection or infection. - Left neck drain sutured in place with sero-sanguinous fluid. - Trachea midline without deviation. LUNGS - Clear to auscultation bilaterally without wheezes. HEART - Regular rate and rhythm without murmur. CHEST - Left chest incision well-approximated with brandt in place; clean, dry; with no evidence of fluidcollection or infection. - Left chest drain with serosanguinous fluid sutured in place. NEURO - HB 5 on the left, otherwise cranial nerves II-XII intact and symmetric. - Responds appropriately to questions. PSYCHE - Normal mood and affect. PROCEDURES Procedure: Suture removal The patient is now 8 days out from surgery, and therefore it was deemed appropriate to remove them. Using forceps and fine suture scissors, the neck incision sutures were removed without difficulty. The patient tolerated the procedure well. Procedure: MAURA drain removal x 2 The drains were noted to have minimal output over the last 2 days, thus removal of the drains was deemed appropriate. Suction was discharged from the drain, the tethering suture was cut, and the drain was removed. A gauze with Aquaphor dressing was taped in place. REVIEW OF IMAGES/STUDIES ASSESSMENT/RECOMMENDATIONS - Recovering well after his procedures, with no significant postoperative complications since discharge. - Dr. Sanchez also examined the patient and felt that he was healing well. Discussed use of eye ointment, especially in light of his not tolerating the moisture chamber. Discussed of eye drops to help with any grittiness or pain in his eye. He also discussed performing a lower lid sling and upper lid gold- weight procedure to help with eye closure. He also discussed the likely need for further treatment with radiation and chemotherapy, and placing referrals for him to see a Radiation and Medical Oncologist in the [facility] area. - Discussed incision care, including allowing the area to get wet, but not scrubbing or submerging in water, and application of aquaphor to the site 2 times per day; activities, including no straining for another week, and then titrating up activities per toleration thereafter; drain site dressing changes (demonstrated to the patient) until closure in 4-5 days; and symptoms to monitor for, including swelling, bleeding or drainage, increasing pain, fevers, or any other concerning symptom. - Discussed his returning to clinic on Tuesday to remove his chest brandt, but that alternatively, if his VNA nurse was comfortable in removing the sutures, that this could be done at home and spare him the trip down here. - The patient expressed understanding of these points and agreement with the plan, and all questionsthat were asked were answered to the patient's satisfaction. Plan: > Return to clinic on Tuesday for staple removal. > White petrolatum ointment to the left eye 2 times per day, at least. > Otic drops to be used for any pain or grittniess in the eye. > Referral to Radiation Oncology. > Referral to Medical Oncology > Incision care as above. > Patient should call if their symptoms worsen or fail to improve, if new concerning symptoms arise, or if they have any questions or concerns regarding their treatment. I appreciate the opportunity to be involved in Mr. Santamaria's care. Urbano Beck PA-C [place], [place] [phone] Office 02/28/2020 documented in this encounter Plan of Treatment Upcoming Encounters Date Type Specialty Care Team Description 10/21/2021 Infusion Hematology and Oncology 11/09/2021 Office Visit Hematology and Oncology Alhaji Ritchie MD [facility] DR ONCOLOGY DEPT. [place], [place] [address] (Wo rk) 11/09/2021 Infusion Hematology and Oncology 12/10/2021 Office Visit Dermatology Silas Walters MD [address] [place] [address] DERMATOLOGY [place], [place] [address] (Wo rk) 09/19/2039 Hospital Encounter Surgery Osman Barnett MD [facility] OTOLARYNGOLOGY D EPT. [place], [place] [address] (Wo rk) Scheduled Procedures Name [...] sequela Scheduled Referrals Name Type Priority Associated Order Schedule Diagnoses Referral to Outpatient Referral Routine Squamous cell Ordered : Radiation Oncology carcinoma, ear, 2019 left Referral to Outpatient Referral Routine Squamous cell Ordered : Hematology and carcinoma, ear, 02/28/2020 Oncology left documented as of this encounter Visit Diagnoses Diagnosis Squamous cell carcinoma, ear, left documented in this encounter Care Teams Energy Projects Lead Relationship Specialty Start Date End Date Tara Joya MD PCP - General Family Medicine 05/16/[address] [place] [address] documented as of this encounter
--- OUTSIDE RECORDS SUMMARY | 2021-10-21 08:01 | XMS_ITS | Encounter Summary ---
:1950 Author Organization [facility] [place] [address] Care Team Providers Name Role Phone Tara Joya MD Primary Care Provider [phone] Reason for Referral Home Health Care (Urgent) - Specialty Diagnoses / Procedures Referred By Contact Refer red To Contact Unknown Specialty Diagnoses Squamous cell carcinoma, ear, left Urbano Beck, PA [facility] [place] [address] Referral ID Status Reason Start Expiration Visits Visits Date Date Requested Authorized [id number] Continuity of 09/09/2020 1 1 Care 0 Encounter Details Date Type Department Care Team Description 03/13/[address] [facility] [place] [address] Social History Tobacco Use Types Packs/Day Years Used Date Former Smoker Cigarettes 1 40 Quit: 01/09/20 03 Smokeless Tobacco: Never Used Alcohol Use Standard Drinks/Week Comments No 0 (1 standard drink = 0.6 oz pure alcoho l) Sex Assigned at Date Recorded Not on file documented as of this encounter Miscellaneous Notes Telephone Encounter - Lisa Ellis RN - 03/13/2020 8:51 AM EST Call placed to [facility] [employer] ([phone]), spoke with Gris. Left message for RN seeing patient today to call me to discuss new wound care orders per Saurav VEE. Order entered and faxed to with delivery confirmation per Gris's request. She will have the primary nurse call me to discuss. I gave her my direct line. documented in this encounter Plan of Treatment Upcoming Encounters Date Type Specialty Care Team Description 10/21/2021 Infusion Hematology and Oncology 11/09/2021 Office Visit Hematology and Oncology Alhaji Ritchie MD [facility] DR ONCOLOGY DEPT. [place], [place] [address] (Wo rk) 11/09/2021 Infusion Hematology and Oncology 12/10/2021 Office Visit Dermatology Silas Walters MD [address] [facility] DERMATOLOGY [place], [place] [address] (Wo rk) 09/19/2039 Hospital Encounter Surgery Osman Barnett MD [facility] OTOLARYNGOLOGY D EPT. [place], [place] [address] (Jin rk) Scheduled Procedures Name [...] Associated Diagnoses Order S chedule Referral to Home Outpatient Referral Routine Squamous cell Ord ered: Health - Clinic carcinoma, ear, left 02/19 Use documented as of this encounter Visit Diagnoses Diagnosis Squamous cell carcinoma, ear, left documented in this encounter Care Teams Wire Brush Maker Relationship Specialty Start Date End Date Tara Joya MD PCP - General Family Medicine 05/16/[address] [place] [address] documented as of this encounter
--- OUTSIDE RECORDS SUMMARY | 2021-10-21 08:01 | XMS_ITS | Encounter Summary ---
:1950 Author Organization [place] [address] Care Team Providers Name Role Phone Tara Joya MD Primary Care Provider [phone] Reason for Visit Consultation (Routine) - Specialty Diagnoses / Procedures Referred By Contact Refer red To Contact Radiation Oncology Diagnoses Squamous cell carcinoma of ear, left Eleazar Galdamez MD [facility] Rad Onc Office Procedures Simulation for Radiation Therapy Planning [facility] [address] [place] [address] [place] [phone] Fax: Referral ID Status Reason Start Date Expiration Date Visits V isits Requested Authorized [id number] Consult, 03/17/2020 06/15/2020 33 33 Test & Treat Encounter Details Date Type Department Care Team Description 03/18/2020 Ancillary Appointment Radiation Oncology at [facility] [address] [facility] [address] [place] [phone] RADIATION ONCOLOGY [phone] [place], [place] [address] Social History Tobacco Use Types [...] Sign Reading Time Taken Comments Blood Pressure 139/69 03/18/2020 12:22 PM EST Pulse 76 03/18/2020 12:22 PM EST Temperature 37 ??C (98.6 ??F) 03/18/2020 12:22 PM EST Respiratory Rate 16 03/18/2020 12:22 PM EST Oxygen Saturation 99% 03/18/2020 12:22 PM EST Inhaled Oxygen Concentration - - Weight 75.3 kg (166 lb) 03/18/2020 12:22 PM EST Height - - Body Mass Index 24.51 03/10/2020 9:28 AM EST documented in this encounter Progress Notes Charlene Zeng RN - 03/18/2020 1:00 PM EST Section of Radiation Oncology Contrast [...] if they will require further lab studies. Eleazar Galdamez MD - 03/18/2020 1:00 PM EST Mr. Santamaria was slated for simulation today, however his left facial wound appears to have progressed since our last visit. Superiorly and anteriorly along the graft there is increased dehiscence, with drainage. No significant erythema. He is to see ENT today regarding his wound, and we will defer radiotherapy simulation until next week pending there evaluation. documented in this encounter Plan of Treatment Upcoming Encounters Date Type Specialty Care Team Description 10/21/2021 Infusion Hematology and Oncology 11/09/2021 Office Visit Hematology and Oncology Alhaji Ritchie MD [facility] DR ONCOLOGY DEPT. [place], [place] [address] (Jin carson) 11/09/2021 Infusion Hematology and Oncology 12/10/2021 Office Visit Dermatology Silas Walters MD [address] [place] [address] DERMATOLOGY [place], [place] [address] (Jin carson) 09/19/2039 Hospital Encounter Surgery Osman Barnett MD [facility] OTOLARYNGOLOGY D EPT. [place], [place] [address] (Jin carson) Scheduled Orders Name Type Priority Associated Diagnoses [...] on filedocumented in this encounter Care Teams Operations Chief Relationship Specialty Start Date End Date Tara Joya MD PCP - General Family Medicine 05/16/[address] [place] [address] documented as of this encounter
--- OUTSIDE RECORDS SUMMARY | 2021-10-21 08:01 | XMS_ITS | Encounter Summary ---
:1950 Author Organization [facility] [place] [address] Care Team Providers Name Role Phone Tara Joya MD Primary Care Provider [phone] Reason for Visit Auth/Cert Specialty Diagnoses / Procedures Referred By Contact Refer red To Contact Diagnoses parotid mass Procedures PRO EXC PAROTD, TOTAL, DISSECT 5TH NERV PRO EXC SKIN MALIG >4CM FACE, FACIAL PRO EXC SKIN MALIG 3.1-4CM FACE, FACIAL PRO REMOVAL NODES, NECK, CERV MOD RAD PRO MUSCLE-SKIN FLAP, TRUNK PRG SOMATOSENSORY TEST, ANY/ ALL PER. NERVES, TRUNK OR HEAD PRO RESECT TEMPORAL BONE, SALOON KEEPER APPRCH EXCISION OF PAROTID TUMOR OR PAROTID GLAND, TOTAL, WITH DISSECTION AND PRESERVATION OF FACIAL NERVE (WRVU 19.53) EXC MALIGNANT LESION, >4.0CM , EARS (WRVU 6.26) EXC MALIGNANT LESION, 3.1 TO 4.0CM, FACE (WRVU 4.34) @CERVICAL LYMPHADENECTOMY (MODIFIED RADICAL NECK DISSECTION) (WRVU 23.95) FLAP, MYOCUTANEOUS OR FASCIOCUTANEOUS, TRUNK (WRVU 19.86) FACIAL NERVE MONITORING, SET UP PERIPHERAL (WRVU 0.54) @RESECTION TEMPORAL BONE, EXTERNAL APPROACH (WRVU 37.42) Referral ID Status Reason Start Date Expiration Date Visits Requ ested Visits Authorized [id number] 1 1 Encounter Details Date Type Department Care Team Description 02/20/2020 - Hospital Encounter 5 Mainor Barnett, Mass of l eft ear; 02/26/2020 [facility] Osman Lobo MD [facility]; [facility] Parotid mass; Drive OTOLARYNGOLOGY Coronary artery disease invo lving circle heart, angina presence unspecified, unspecified vessel or lesion type; [place], [place] DEPT. Prolonged Q-T interval on ECG; [id number] [place], [place] Squamous cell carcinoma of e ar, left [phone] [id number] Social History Tobacco Use Types Packs/Day Years Used Date Former Smoker Cigarettes 1 40 Quit: 01/09/20 03 Smokeless Tobacco: Never Used Alcohol Use Standard Drinks/Week Comments No 0 (1 standard drink = 0.6 oz pure alcoho l) Sex Assigned at Date Recorded Not on file documented as of this encounter Last Filed Vital Signs Vital Sign Reading Time Taken Comments Blood Pressure 144/96 02/26/2020 8:13 AM EST Pulse 106 02/26/2020 8:31 AM EST Temperature 36 ??C (96.8 ??F) 02/26/2020 8:13 AM EST Respiratory Rate 17 02/26/2020 8:13 AM EST Oxygen Saturation 95% 02/26/2020 8:13 AM EST Inhaled Oxygen Concentration - - Weight 74.7 kg (164 lb 11.2 oz) 02/24/2020 3:39 PM EST Height 175.3 cm (5' 9.02) 02/23/2020 7:10 AM EST Body Mass Index 24.31 02/23/2020 7:10 AM EST documented in this encounter Discharge Summaries Kyle Billy MD - 02/26/2020 8:09 AM EST Images from the original note were not included. OTOLARYNGOLOGY - HEAD & NECK SURGERY DISCHARGE SUMMARY General Info Patient Name: Ward Santamaria Patient Age: 69 y.o. Birthdate: 1950 Admit date: 02/20/2020 Discharge date: 02/26/20 Attending Physician: Osman Barnett MD Admission Info Diagnoses: L parotid and L ear mass Operations/Major Procedures: Procedure(s) (LRB): EXCISION OF PAROTID TUMOR OR PAROTID GLAND, TOTAL, WITH DISSECTION AND PRESERVATION OF FACIAL NERVE (WRVU 19.53) (Left) EXC MALIGNANT LESION, >4.0CM, EARS (WRVU 6.26) (Left) EXC MALIGNANT LESION, 3.1 TO 4.0CM, FACE (WRVU 4.34) (Left) @CERVICAL LYMPHADENECTOMY (MODIFIED RADICAL NECK DISSECTION) (WRVU 23.95) (Left) FLAP, MYOCUTANEOUS OR FASCIOCUTANEOUS, TRUNK (WRVU 19.86) (Left) FACIAL NERVE MONITORING, SETUP PERIPHERAL (WRVU 0.54) (N/A) @RESECTION TEMPORAL BONE, EXTERNAL APPROACH (WRVU 37.42) (Left) MICROSCOPE USE (WRVU 3.46) (N/A) ADJACENT TISSUE TRANSFER OR REARRANGEMENT; 30.1 TO 60.0 SQ CM, THORAX (WRVU 12.65) (Left) ADJACENT TISSUE TRANSFER OR REARRANGEMENT; EA ADD'L 30.0 SQ CM, OR PART OF (WRVU 3.73) (Left) History of Presentation: The below history was copied from Dr. Barnett's note from 01/31/2020 This is a 69 y.o. male who presents with mass in the left parotid and involving the left ear. This developed in November and per patient and his came on fairly rapidly. He had pain with chewing and feels that his teeth do not come together normally. He also reports significant hearing loss in the left ear. Was seen by Dr. Barahona and had a biopsy of this mass performed. The specimen was sent to [facility] and per patient he was told it was concerning for malignancy. We do not have the report dueto the [facility] EMR being down. The patient denies any facial weakness. He also had an MRI face to evaluate. 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 Reason for Admission: s/p temporal bone resection, parotidectomy, neck dissection and pectoral flap reconstruction Hospital Course: The patient tolerated the above procedure well and was admitted post-operatively for routine care. On POD1, his elevated QTc downtrended to 403, his lactate normalized and his seals/Gerda were discontinued. The transient ST and T wave changes seen on his POD0 EKG were not present on his POD1 EKG. Mr. Santamaria had a temporary lactic acidosis with pH 7.31; his lactate was elevated around 4.7-5.6 on 02/19.His lactate downtrended over the next few days and his acidosis resolved. He received a 5 day courseof clindamycin which ended on 02/25/2020. He did have some mild urinary retention on bladder scan from known BPH (on tamsulosin). He continued to show some improvement of facial nerve function, but not able to fully close left eyelid. The output of his 3 MAURA drains decreased and 1 chest drain was removed on 02/25/2020. His hospital course was uncomplicated and he was deemed medically stable for discharge home at 6 Days Post-Op. Prior to discharge his pain was controlled on oral pain meds and he was tolerating a Regular diet. During his hospitalization, PT/OT were consulted. Physical Exam on Discharge: General: NAD, non-ill appearing Face: HB V along L upper division branches, partial eyelid closure, pectoral flap covers lateral L neck, flap is well perfused, capillary refill intact, sutures c/d/i Eyes: EOMI, conjunctiva healthy, moisture chamber available for protecting L eye available Ears: Right auricle, no lesions L upper helical rim remnant appears well perfused Nose: Patent nares, grossly normal appearance Oral Cavity/Pharynx: Mucosa is pink Neck: Soft, trachea midline, 1x bulb drain with serosanguinous drainge Chest: Non-labored breathing, regular rate, brandt in place, incision c/d/i, 1x chest bulb drains have serosanguinous drainage, no axillary echymosis Neuro: Alert & oriented, moving extremities x 4 Lab Data: No results for input(s): WBC, HGB, HCT, PLATELET, PT, INR, PTT, NA, K, CL, CO2, BUN, CREATININE, GLUCOSE, CALCIUM, MAGNESIUM, PHOS in the last 72 hours. Imaging and Other Studies: Pr Pet Ct Standard Plus Head And Neck Result Date: 02/12/2020 EXAMINATION: AK PET CT STANDARD PLUS HEAD AND NECK CLINICAL HISTORY: large mass involving left ear and face TECHNIQUE: Following IV injection of 99-tkkjys-7-deoxyglucose (FDG) a standard uptake of approximately 60 minutes, a noncontrast CT scan followed by a PET scan were acquired from the top of headto mid thighs. The noncontrast CT was used for anatomic localization and photon attenuation correction of the PET scan. No enteric contrast was administered. Blood glucose level: 153 (mg/dL) FDG dose: 11.5 mCi COMPARISON: CT temporal bone 02/12/2020 MRI neck, orbit, face from outside institution 01/11/2020 FINDINGS: HEAD/NECK: Intensely FDG avid lobulated solid mass with punctate calcification involving the left parotid gland and external auditory canal measuring approximately 5.7 x 6.1 in axial diameter (axial image 57) Normal activity throughout the remainder the head/neck. CHEST: Small cutaneous/subcutaneous FDG avid focus in the lateral left mid back (axial image 161) at the T9 level. Normal activity in all other soft tissue regions. Mitral annular calcifications and calcified atherosclerosisof the coronary arteries and aortic arch. ABDOMEN/PELVIS: Normal activity in all soft tissue regions. Excreted contrast is present in nondilated bilateral collecting systems and urinary bladder from ear lier contrast-enhanced CT. Focal calcification in the left hepatic lobe. Calcified atherosclerosis of the distal aorta and common iliac arteries. Sigmoid and descending colonic diverticulosis without diverticulitis. SKELETON/EXTREMITIES: Healing FDG avid left lateral sixth rib fracture without underlying pathologic lesion identified on CT. 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 Normal marrow activity in all other regions of the axial and visualized appendicular skeleton. CT visualized healing non-FDG avid left anterolateral fifth rib fracture. 1. Highly FDG avid lobulated mass involving [...] fifth and sixth rib fractures as above I have personally reviewed the image(s) and the resident's interpretation and agree with the findings, Meli Richards MD at 02/12/2020 5:12 PM Thank you for letting us participate in the care of this patient. For questions regarding this report, please contact the number below. Electronically signed by: Meli Richards MD, [facility] ([phone]), at 02/12/2020 5:[address] Temporal Bone W Contrast Result Date: 02/12/2020 EXAMINATION: CT TEMPORAL BONE W CONTRAST CLINICAL HISTORY: mass of salivary gland with possible extension/invasion TECHNIQUE: CT temporal bones performed after the intravenous administration of contrast. 110 cc Omnipaque 350. COMPARISON: MRI face performed 01/11/2020. Correlation with PET/CT performedthe same day 02/12/2020. FINDINGS: Visualized intracranial contents are within normal limits. The paranasal sinuses are clear. Right temporal bone: The external auditory canal is patent with nonobstructive adherent cerumen. Normal appearance of the tympanic membrane and ossicles chain. No soft tissue density in the middle ear or mastoid air cell effusion. Normal morphology of the inner ear structures. Left temporal bone: Large enhancing mixed cystic and solid mass centered in the left parotid gland.Scattered internal calcifications. The the parotid portion of [...] Normal morphology of the inner ear structures. Large left parotid mass extending into the external auditory canal. Involvement of the left parapharyngeal and costumer spaces. I have personally reviewed the image(s) and the resident's interpretation and agree with the findings, Petey Johnson MD at 02/12/2020 4:57 PM Thank you for letting us participate in the care of this patient. For questions regarding this report, please contact the number below. Electronically signed by: Petey Johnson MD, [facility] ([phone]), at 02/12/2020 4:57 PM Discharge Info Discharge Condition: Stable Discharge to: Home with [facility]NA Discharge Medications: Your Medications Continued medications, unchanged Dose Details Abilify 15 mg Tab Take 15 mg by mouth daily. Generic drug: ARIPiprazole 15 mg Refills: 0 amitriptyline 50 mg Tab Commonly known as: Elavil Take 100 mg by mouth nightly. 100 mg Refills: 0 aspirin EC 81 mg Tbec Take 81 mg by mouth daily. 81 mg Refills: 0 atorvastatin 20 mg Tab Commonly known as: Lipitor Take 20 mg by mouth daily. 20 mg Refills: 0 ciprofloxacin 0.3 % Drop Commonly known as: CILOXAN Place 5 mLs into both ears 2 times daily. 5 mL Refills: 0 COQ10 (UBIQUINOL) ORAL Take 200 mg by mouth daily. 200 mg Refills: 0 dexamethasone 0.1 % Drop Commonly known as: DECADRON Place 5 drops into both ears daily. 5 drop Refills: 0 fenofibrate 145 mg Tab Commonly known as: TRICOR Take 145 mg by mouth daily. 145 mg Refills: 0 * HYDROcodone-acetaminophen 5-325 mg Tab Commonly known as: Dundee Take 1 tablet by mouth every 6 hours as needed for Pain. 1 tablet Quantity: 15 tablet Refills: 0 * HYDROcodone-acetaminophen 5-325 mg Tab Commonly known as: Dundee Take 1 tablet by mouth every 6 hours as needed for Pain. 1 tablet Quantity: 10 tablet Refills: 0 LaMICtaL 200 mg Tab Take 200 mg by mouth 2 times daily. Generic drug: lamoTRIgine 200 mg Refills: 0 metoprolol succinate XL 50 mg Tablet sr Commonly known as: Toprol-XL Take 1 tablet by mouth daily. 50 mg Quantity: 30 tablet Refills: 12 nitroGLYcerin 0.4 mg Subl Commonly known as: Nitrostat Refills: 0 triamcinolone 0.1 % Crea Commonly known as: KENALOG APPLY CREAM TOPICALLY TO AFFECTED AREA FOR RASH THREE TIMES DAILY FOR UP TO 2 WEEKS Refills: 0 * This list has 2 medication(s) that are the same as other medications prescribed for you. Read thedirections carefully, and ask your doctor or other care provider to review them with you. STOPPED Medications clindamycin 300 mg Cap Commonly known as: CLEOCIN Updated Allergies/ADRs: Allergies Allergen Reactions ??? Penicillins rash ??? Codeine Phosphate Rash Info for Patient Patient Instructions Instructions for Patient at Discharge: What to expect: You will have soreness which will improve over the next several days. The area around the incision may be [...] Ibuprofen (Motrin,Advil) every 6 hours as needed. For more severe pain, take the prescribed pain medication every 4-6 hours. As your pain improves, wean yourself off of the prescribed pain medication. Do not drive or operate machinery while taking the prescribed pain medication. Constipation - Consider the use of OTC Senna/Docusate, Miralax, Metamucil, prune juice or various suppositories if you have any constipation (especially if related to narcotic/opoid related pain medication) Incision Care: Your incision was closed with sutures/brandt. These will need to be removed in about 7-14 days, which will usually occur at your follow up appointment. Use diluted peroxide to clean the incision and apply Aquaphor/Vaseline twice daily. Keep the incision dry for the next two days. After that you may get the area wet and pat dry (it is okay to shower). Do not submerge the incision for at least 2 weeks. Eye care: Apply eye ointment 1-2 times daily to avoid dry eye. Additionally, wear your moisture chamber as much as possible to help keep the left eye moisturized and to protect your eye from any scratches. This is particularly important at night when you may accidentally scratch your eye. Drain Care: Strip the drain and record the output as you were instructed. When the output is less than 30ml for two days in a row it is ok for it to be removed. You may wait until your follow up appointment to have it removed (if it is within 5-7 days), call your PCP to see if they will remove it for you, or callthe ENT clinic to schedule a nursing visit for drain removal. See more detailed instructions below for drain care. Activity: A good rule of thumb is if it hurts don't do it. Keep your head elevated when lying flat. No heavy lifting or straining for the next week. No smoking, this is important for wound healing. Diet: Resume baseline diet You should call your doctor if you develop: -Increasing pain and redness -Increasing drainage from the wound -Fever > 38.5Celsius or 101 Fahrenheit -Bleeding Contact: -You can reach the ENT clinic at [phone] for appointment questions. -The ENT triage nurse is available at [phone] -For urgent issues during evenings (5 PM - 7 AM) and weekends the ENT resident configurator can be reached through the main hospital photocomposition keyboard operator at [phone] Follow Up: You will need to follow up with ENT in 1 week. This appointment has been requested. You will be notified once it is scheduled, if you do not already see it below. If you do not hear from us in a timelymanner, please call to receive your date and time. Currently Scheduled Appointments and [facility] instructions: Future Appointments and Orders Future Appointments and Orders Future Appointments Provider Department Dept Phone 02/28/2020 4:30 PM Urbano Beck PA Otol[place]ology at [facility] Arrive at: [place] [address] [phone] 11/06/2020 1:30 PM Silas Walters MD Dermatology at [place] Arrive at: [facility] [address] [phone] [facility] DRAIN CARE INSTRUCTIONS How do I care for the drains at home? Pin your drains to your clothing by using a safety pin through the plastic loop on the top of the bulb. If the drain is not attached to your clothing, it may pull out from under your skin. Also, a drain usually feels more comfortable when it???s attached. To care for the drain at home, you will have to empty the drain, change the dressing if applicable. See the following pages for instructions on howto do this. What problems may I have with my drain? The bulb is not compressed- The bulb may not be squeezed tightly enough, the plug may not be closed securely, or the tube has slipped out a bit and is leaking. Follow the instructions on how to empty the drain. If the bulb remains expanded, then notify your doctor or nurse during business hours. ??? The tube accidentally falls out- If this happens, place a dry gauze dressing over the drain siteand notify your doctor or nurse during business hours. ??? Increased redness, swelling, or heat around the tube insertion site- This may be a sign of infection. Take your temperature: if it is higher than 101F or 38.8C, call your doctor or nurse immediately. Otherwise, notify your doctor or nurse during business hours and keep the dressing clean and dry. Drain Care This device collects fluid, under suction, from your procedure area. The drain promotes healing and recovery, and reduces the chance of infection. The drain will be in place until the drainage slows enough for your body to reabsorb fluid on its own. While you are hospitalized the nursing staff will care for the drain and teach you to continue to do so at home. How to Empty Your Bulb Drain Note: Wash your hands thoroughly before emptying your drain(s). 1. Have the plastic measuring cup from the hospital ready to collect and measure the drainage. Please measure the output at the same two times every 24 hours and record the amount. 2. Unpin the drain from your clothing. 3. Open the top of the drain. Turn the drain upside down and squeeze the contents of the bulb into the measuring cup. Be sure to empty the bulb as completely as possible. Flush the contents in the toilet. 4. Use the drain output log chart to record the amount of drainage twice a day or any time the bulb is full. Record the total for 24 hours for each drain you have. 5. If you have more than one drain, remember to record the drainage from each drain separately. 6. To prevent infection, do not let the stopper or top of the bottle touch the measuring cup or any other surface. 7. Use one hand to squeeze all of the air from the drain. With the drain still squeezed, use your other hand to replace the top. This creates the suction necessary to remove the fluids from your body. 8. Pin the drain back on your clothing to avoid pulling it out accidently. 9. Wash your hands again. Remember to wash your hands before and after the procedure to reduce the risk of infection. Removal of the Tube ??? The tube may be removed once the output lessens ??? Please call your MD if the output becomes thicker or has a bad odor. Call the Otolaryngology office at [phone] with any questions or concerns Drainage Record NAME: Date of Surgery: Date: Time: If more than one drain, which one: Drainage Amount (per drain) Total Amount (per drain; in 24 hours) General Instructions [facility] DRAIN CARE INSTRUCTIONS How do I care for the drains at home? Pin your drains to your clothing by using a safety pin through the plastic loop on the top of the bulb. If the drain is not attached to your clothing, it may pull out from under your skin. Also, a drain usually feels more comfortable when it???s attached. To care for the drain at home, you will have to empty the drain, change the dressing if applicable. See the following pages for instructions on howto do this. What problems may I have with my drain? The bulb is not compressed- The bulb may not be squeezed tightly enough, the plug may not be closed securely, or the tube has slipped out a bit and is leaking. Follow the instructions on how to empty the drain. If the bulb remains expanded, then notify your doctor or nurse during business hours. ??? The tube accidentally falls out- If this happens, place a dry gauze dressing over the drain siteand notify your doctor or nurse during business hours. ??? Increased redness, swelling, or heat around the tube insertion site- This may be a sign of infection. Take your temperature: if it is higher than 101F or 38.8C, call your doctor or nurse immediately. Otherwise, notify your doctor or nurse during business hours and keep the dressing clean and dry. Drain Care This device collects fluid, under suction, from your procedure area. The drain promotes healing and recovery, and reduces the chance of infection. The drain will be in place until the drainage slows enough for your body to reabsorb fluid on its own. While you are hospitalized the nursing staff will care for the drain and teach you to continue to do so at home. How to Empty Your Bulb Drain Note: Wash your hands thoroughly before emptying your drain(s). 10. Have the plastic measuring cup from the hospital ready to collect and measure the drainage. Please measure the output at the same two times every 24 hours and record the amount. 11. Unpin the drain from your clothing. 12. Open the top of the drain. Turn the drain upside down and squeeze the contents of the bulb into the measuring cup. Be sure to empty the bulb as completely as possible. Flush the contents in the toilet. 13. Use the drain output log chart to record the amount of drainage twice a day or any time the bulbis full. Record the total for 24 hours for each drain you have. 14. If you have more than one drain, remember to record the drainage from each drain separately. 15. To prevent infection, do not let the stopper or top of the bottle touch the measuring cup or anyother surface. 16. Use one hand to squeeze all of the air from the drain. With the drain still squeezed, use your other hand to replace the top. This creates the suction necessary to remove the fluids from your body. 17. Pin the drain back on your clothing to avoid pulling it out accidently. 18. Wash your hands again. Remember to wash your hands before and after the procedure to reduce the risk of infection. Removal of the Tube ??? The tube may be removed once the output lessens ??? Please call your MD if the output becomes thicker or has a bad odor. Call the Otolaryngology office at [phone] with any questions or concerns Drainage Record NAME: Date of Surgery: Date: Time: If more than one drain, which one: Drainage Amount (per drain) Total Amount (per drain; in 24 hours) __ Primary Care Doctor: Tara Joya MD [phone] Signed: Kyle Billy MD 02/26/2020 Routed to Wendy [facility] Cancer patient documented in this encounter Discharge Instructions Discharge InstructionsEnma Ragland MD - 02/21/2020 1:30 PM EST Images from the original note were not included. [facility] DRAIN CARE INSTRUCTIONS How do I care for the drains at home? Pin your drains to your clothing by using a safety pin through the plastic loop on the top of the bulb. If the drain is not attached to your clothing, it may pull out from under your skin. Also, a drain usually feels more comfortable when it???s attached. To care for the drain at home, you will have to empty the drain, change the dressing if applicable. See the following pages for instructions on howto do this. What problems may I have with my drain? The bulb is not compressed- The bulb may not be squeezed tightly enough, the plug may not be closed securely, or the tube has slipped out a bit and is leaking. Follow the instructions on how to empty the drain. If the bulb remains expanded, then notify your doctor or nurse during business hours. ??? The tube accidentally falls out- If this happens, place a dry gauze dressing over the drain siteand notify your doctor or nurse during business hours. ??? Increased redness, swelling, or heat around the tube insertion site- This may be a sign of infection. Take your temperature: if it is higher than 101F or 38.8C, call your doctor or nurse immediately. Otherwise, notify your doctor or nurse during business hours and keep the dressing clean and dry. Drain Care This device collects fluid, under suction, from your procedure area. The drain promotes healing and recovery, and reduces the chance of infection. The drain will be in place until the drainage slows enough for your body to reabsorb fluid on its own. While you are hospitalized the nursing staff will care for the drain and teach you to continue to do so at home. How to Empty Your Bulb Drain Note: Wash your hands thoroughly before emptying your drain(s). 1. Have the plastic measuring cup from the hospital ready to collect and measure the drainage. Please measure the output at the same two times every 24 hours and record the amount. 2. Unpin the drain from your clothing. 3. Open the top of the drain. Turn the drain upside down and squeeze the contents of the bulb into the measuring cup. Be sure to empty the bulb as completely as possible. Flush the contents in the toilet. 4. Use the drain output log chart to record the amount of drainage twice a day or any time the bulb is full. Record the total for 24 hours for each drain you have. 5. If you have more than one drain, remember to record the drainage from each drain separately. 6. To prevent infection, do not let the stopper or top of the bottle touch the measuring cup or any other surface. 7. Use one hand to squeeze all of the air from the drain. With the drain still squeezed, use your other hand to replace the top. This creates the suction necessary to remove the fluids from your body. 8. Pin the drain back on your clothing to avoid pulling it out accidently. 9. Wash your hands again. Remember to wash your hands before and after the procedure to reduce the risk of infection. Removal of the Tube ??? The tube may be removed once the output lessens ??? Please call your MD if the output becomes thicker or has a bad odor. Call the Otolaryngology office at [phone] with any questions or concerns Drainage Record NAME: Date of Surgery: Date: Time: If more than one drain, which one: Drainage Amount (per drain) Total Amount (per drain; in 24 hours) Patient InstructionsAlAracely cruz MD - 02/21/2020 1:24 PM EST Images from the original note were not included. Instructions for Patient at Discharge: What to expect: You will have soreness which will improve over the next several days. The area around the incision may be [...] Ibuprofen (Motrin,Advil) every 6 hours as needed. For more severe pain, take the prescribed pain medication every 4-6 hours. As your pain improves, wean yourself off of the prescribed pain medication. Do not drive or operate machinery while taking the prescribed pain medication. Constipation - Consider the use of OTC Senna/Docusate, Miralax, Metamucil, prune juice or various suppositories if you have any constipation (especially if related to narcotic/opoid related pain medication) Incision Care: Your incision was closed with sutures/brandt. These will need to be removed in about 7-14 days, which will usually occur at your follow up appointment. Use diluted peroxide to clean the incision and apply Aquaphor/Vaseline twice daily. Keep the incision dry for the next two days. After that you may get the area wet and pat dry (it is okay to shower). Do not submerge the incision for at least 2 weeks. Eye care: Apply eye ointment 1-2 times daily to avoid dry eye. Additionally, wear your moisture chamber as much as possible to help keep the left eye moisturized and to protect your eye from any scratches. This is particularly important at night when you may accidentally scratch your eye. Drain Care: Strip the drain and record the output as you were instructed. When the output is less than 30ml for two days in a row it is ok for it to be removed. You may wait until your follow up appointment to have it removed (if it is within 5-7 days), call your PCP to see if they will remove it for you, or callthe ENT clinic to schedule a nursing visit for drain removal. See more detailed instructions below for drain care. Activity: A good rule of thumb is if it hurts don't do it. Keep your head elevated when lying flat. No heavy lifting or straining for the next week. No smoking, this is important for wound healing. Diet: Resume baseline diet You should call your doctor if you develop: -Increasing pain and redness -Increasing drainage from the wound -Fever > 38.5Celsius or 101 Fahrenheit -Bleeding Contact: -You can reach the ENT clinic at [phone] for appointment questions. -The ENT triage nurse is available at [phone] -For urgent issues during evenings (5 PM - 7 AM) and weekends the ENT resident configurator can be reached through the main hospital photocomposition keyboard operator at [phone] Follow Up: You will need to follow up with ENT in 1 week. This appointment has been requested. You will be notified once it is scheduled, if you do not already see it below. If you do not hear from us in a timelymanner, please call to receive your date and time. Currently Scheduled Appointments and VNA instructions: Future Appointments and Orders Future Appointments and Orders Future Appointments Provider Department Dept Phone 02/28/2020 4:30 PM Urbano Beck PA [place]ology at [facility] [place] Arrive at: [place] [facility] [phone] 11/06/2020 1:30 PM Silas Walters MD Dermatology at [place] Arrive at: [facility] [address] [phone] [facility] DRAIN CARE INSTRUCTIONS How do I care for the drains at home? Pin your drains to your clothing by using a safety pin through the plastic loop on the top of the bulb. If the drain is not attached to your clothing, it may pull out from under your skin. Also, a drain usually feels more comfortable when it???s attached. To care for the drain at home, you will have to empty the drain, change the dressing if applicable. See the following pages for instructions on howto do this. What problems may I have with my drain? The bulb is not compressed- The bulb may not be squeezed tightly enough, the plug may not be closed securely, or the tube has slipped out a bit and is leaking. Follow the instructions on how to empty the drain. If the bulb remains expanded, then notify your doctor or nurse during business hours. ??? The tube accidentally falls out- If this happens, place a dry gauze dressing over the drain siteand notify your doctor or nurse during business hours. ??? Increased redness, swelling, or heat around the tube insertion site- This may be a sign of infection. Take your temperature: if it is higher than 101F or 38.8C, call your doctor or nurse immediately. Otherwise, notify your doctor or nurse during business hours and keep the dressing clean and dry. Drain Care This device collects fluid, under suction, from your procedure area. The drain promotes healing and recovery, and reduces the chance of infection. The drain will be in place until the drainage slows enough for your body to reabsorb fluid on its own. While you are hospitalized the nursing staff will care for the drain and teach you to continue to do so at home. How to Empty Your Bulb Drain Note: Wash your hands thoroughly before emptying your drain(s). 1. Have the plastic measuring cup from the hospital ready to collect and measure the drainage. Please measure the output at the same two times every 24 hours and record the amount. 2. Unpin the drain from your clothing. 3. Open the top of the drain. Turn the drain upside down and squeeze the contents of the bulb into the measuring cup. Be sure to empty the bulb as completely as possible. Flush the contents in the toilet. 4. Use the drain output log chart to record the amount of drainage twice a day or any time the bulb is full. Record the total for 24 hours for each drain you have. 5. If you have more than one drain, remember to record the drainage from each drain separately. 6. To prevent infection, do not let the stopper or top of the bottle touch the measuring cup or any other surface. 7. Use one hand to squeeze all of the air from the drain. With the drain still squeezed, use your other hand to replace the top. This creates the suction necessary to remove the fluids from your body. 8. Pin the drain back on your clothing to avoid pulling it out accidently. 9. Wash your hands again. Remember to wash your hands before and after the procedure to reduce the risk of infection. Removal of the Tube ??? The tube may be removed once the output lessens ??? Please call your MD if the output becomes thicker or has a bad odor. Call the Otolaryngology office at [phone] with any questions or concerns Drainage Record NAME: Date of Surgery: Date: Time: If more than one drain, which one: Drainage Amount (per drain) Total Amount (per drain; in 24 hours) documented in this encounter Medications at Time of Discharge Medication Sig Dispensed Refills Start Date End Date nitroGLYcerin (NITROSTAT) 0.4 as needed. 0 2017 [...] Take 81 mg by 0 mouth daily. carboxymethylcellulose (REFRESH Place 2 drops 2 Bottle 0 1 04/28/2019 09/15/2020 PLUS) 0.5 % Dropperette into both eyes 4 times daily. HYDROcodone-acetaminophen Take 1 tablet 10 tablet 0 020 03/10/2020 ([place]) 5-325 mg by mouth every TabletIndications: Parotid mass 6 hours as needed for Pain. 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 ciprofloxacin (CILOXAN) 0.3 % Place 5 mLs 0 01/2403/10/2020 Drops into both ears 2 times daily. COQ10, UBIQUINOL, ORAL Take 200 mg by 0 03/10/2020 mouth daily. documented as of this encounter Progress Notes Kyle Billy MD - 02/25/2020 7:37 AM EST OTOLARYNGOLOGY - HEAD & NECK SURGERY DAILY PROGRESS NOTE Name: Ward Santamaria Age/Sex: 69 y.o. male Attending: Osman Barnett MD Hospital Day: 6 5 Days Post-Op Patient ID/Reason for Admission Ward Santamaria is a 69 y.o. 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 Interval History No issues overnight. Ambulated x2. Flap checks remain WNL. Vitals Last value 24hr Range Temperature: 36.8 ??C (98.2 ??F) Temp: [36.3 ??C (97.3 ??F)-37 ??C (98.6 ??F)] Heart Rate: 78 Heart Rate: [74-86] Blood Pressure: 162/82 BP: (152-162)/(82-91) Respiratory Rate: 16 Resp: [15-16] SpO2: 96 % SpO2: [93 %-96 %] Intake & Output Intake/Output Summary (Last 24 hours) at 02/25/2020 0742 Last data filed at 02/25/2020 0400 Gross per 24 hour Intake 1270 ml Output 45 ml Net 1225 ml Physical Exam General: NAD, non-ill appearing Face: HB V along L upper division branches, partial eyelid closure, pectoral flap covers lateral L neck, flap is well perfused, capillary refill intact, sutures c/d/i Eyes: EOMI, conjunctiva healthy, moisture chamber available for protecting L eye available Ears: Right auricle, no lesions L upper helical rim remnant appears well perfused Nose: Patent nares, grossly normal appearance Oral Cavity/Pharynx: Mucosa is pink Neck: Soft, trachea midline, 1x bulb drain with serosanguinous drainge Chest: Non-labored breathing, regular rate, brandt in place, incision c/d/i, 2x chest bulb drains have serosanguinous drainage, no axillary echymosis Neuro: Alert & oriented, moving extremities x 4 Labs Recent Labs 02/23/20 0429 WBC 10.2* HGB 11.0* HCT 32.5* PLATELET 181 NA 135 K 3.8 CL 102 CO2 24 BUN 15 CREATININE 0.65* GLUCOSE 122 CALCIUM 8.7 MAGNESIUM 0.82 PHOS 2.2* Imaging No new imaging ASSESSMENT & PLAN Ward Santamaria is a 69 y.o. 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 No major issues. Continue ambulation and shoulder exercises with PT/OT. Continue PO intake. As long as patient is urinating, will avoid frequent bladder scans since history of BPH. Flap continues to look healthy. Labs discontinued 02/22. Plan for discharge pending patient clinical course, PT/OT and independence. Antibiotics will time out after 5 days total (ending today). MAURA drain output decreased overnight - will remove 1 chest MAURA drains today. He will need VNA (for drain management) and PT after discharge - likely tomorrow. Surgical/Head&Neck: Keep bulb drains to suction, apply aquaphor to incision sites, please keep head of bed elevated, patient head needs to remain neutral or turned to his left side to avoid torsionon his pedicled flap. He has a left pectoral flap, the vascular pedicle is located at his midclavicular site between the incision sites on his chest and neck. The induration in that region is secondaryto the flap being located there and appears normal on exam this am. Neurologic: Pain controlled with acetaminophen & ibuprofen LI, dilaudid PRN Continue home aripiprazole, amitriptyline, lamictal Cardiovascular: Prolonged QTc, last QTc 403 (726) Continue atorvastatin, fenofibrate and metoprolol Transient Twave changes possible 2/2 demand ischemia Lactate last 1.9, down from 5 Pulmonary: Oxygenation on RA Gastrointestinal: Compazine PRN, miralax Genitourinary: Seals out; continue flomax Musculoskeletal: OOB, work with PT/OT Fluids/Electrolytes: DC IVF, Stopped labs since stable. Nutrition: Regular diet Infectious Disease: Clindamycin (for total 5 days) Hematology: Hemoglobin stable Endocrine: Glucose stable, no major issues Consults: PT/OT Lines: JPx3, PIV, Moisture Chamber Prophylaxis: Lovenox, SCDs, ambulation Disposition: Floor Status Attempt Cardiopulmonary Resuscitation - Inpatient Discharge: Discharge likely 02/24; Needs VNA; Follow-up ENT Kyle Billy MD, PGY-4 02/25/20 7:42 AM ENT Team Pager: [phone] Kaylan Enrique MD - 02/24/2020 9:13 AM EST OTOLARYNGOLOGY - HEAD & NECK SURGERY DAILY PROGRESS NOTE Name: Ward Santamaria Age/Sex: 69 y.o. male Attending: Osman Barnett MD Hospital Day: 5 4 Days Post-Op Patient ID/Reason for Admission Ward Santamaria is a 69 y.o. 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 Interval History No issues overnight. Trying to ambulate more. Vitals Last value 24hr Range Temperature: 36.3 ??C (97.3 ??F) Temp: [36.3 ??C (97.3 ??F)-37.2 ??C (99 ??F)] Heart Rate: 86 Heart Rate: [63-86] Blood Pressure: (!) 153/91 BP: (153-179)/(72-91) Respiratory Rate: 15 Resp: [13-16] SpO2: 93 % SpO2: [93 %-98 %] Intake & Output Intake/Output Summary (Last 24 hours) at 02/24/2020 0913 Last data filed at 02/24/2020 0624 Gross per 24 hour Intake 1880 ml Output 1953 ml Net -73 ml Physical Exam General: NAD, non-ill appearing Face: HB V along L upper division branches, partial eyelid closure, pectoral flap covers lateral L neck, flap is well perfused, capillary refill intact, sutures c/d/i Eyes: EOMI, conjunctiva healthy, moisture chamber available for protecting L eye available Ears: Right auricle, no lesions L upper helical rim remnant appears well perfused Nose: Patent nares, grossly normal appearance Oral Cavity/Pharynx: Mucosa is pink Neck: Soft, trachea midline, 1x bulb drain with serosanguinous drainge Chest: Non-labored breathing, regular rate, brandt in place, incision c/d/i, 2x chest bulb drains have serosanguinous drainage, no axillary echymosis Neuro: Alert & oriented, moving extremities x 4 Labs Recent Labs 02/23/20 0429 WBC 10.2* HGB 11.0* HCT 32.5* PLATELET 181 NA 135 K 3.8 CL 102 CO2 24 BUN 15 CREATININE 0.65* GLUCOSE 122 CALCIUM 8.7 MAGNESIUM 0.82 PHOS 2.2* Imaging No new imaging ASSESSMENT & PLAN Ward Santamaria is a 69 y.o. 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 No major issues. Continue ambulation and shoulder exercises with PT/OT. Continue PO intake. As long as patient is urinating, will avoid frequent bladder scans since history of BPH. Flap continues to look healthy. Labs discontinued 02/22. Plan for discharge pending patient clinical course, PT/OT and independence. Drains likely can be removed once <25 cc/24 hours but still currently putting output now. Antibiotics will time out after 5 days total. Surgical/Head&Neck: Keep bulb drains to suction, apply aquaphor to incision sites, please keep head of bed elevated, patient head needs to remain neutral or turned to his left side to avoid torsionon his pedicled flap. He has a left pectoral flap, the vascular pedicle is located at his midclavicular site between the incision sites on his chest and neck. The induration in that region is secondaryto the flap being located there and appears normal on exam this am. Neurologic: Pain controlled with acetaminophen & ibuprofen LI, dilaudid PRN Continue home aripiprazole, amitriptyline, lamictal Cardiovascular: Prolonged QTc, last QTc 403 (726) Continue atorvastatin, fenofibrate and metoprolol Transient Twave changes possible 2/2 demand ischemia Lactate last 1.9, down from 5 Pulmonary: Oxygenation on RA Gastrointestinal: Compazine PRN, miralax Genitourinary: Seals out; continue flomax Musculoskeletal: OOB, work with PT/OT Fluids/Electrolytes: DC IVF, Stopped labs since stable. Nutrition: Regular diet Infectious Disease: Clindamycin (for total 5 days) Hematology: Hemoglobin stable Endocrine: Glucose stable, no major issues Consults: PT/OT Lines: JPx3, PIV, Moisture Chamber Prophylaxis: Lovenox, SCDs, ambulation Disposition: Floor Status Attempt Cardiopulmonary Resuscitation - Inpatient Discharge: Discharge likely 02/24; Needs VNA; Follow-up ENT Kaylan Enrique MD, PGY-4 02/24/20 9:13 AM ENT Team Pager: [phone] Helio Doherty RN - 02/24/2020 8:03 AM Aleks: notification and continuum of care At the beginning of the shift, patient complaining of increased tightness and pain in left neck. Upon inspection increased swelling of left neck showed more swelling than yesterday. Also Blood pressurewas elevated along with increase in pain score. PO dilaudid 2mg given as well as tylenol and team was notified. Is aware of fluxuating pain, swelling and BP's. Orders to continue course of treatment and treat pain as we have been treating. Will continue to monitor and follow orders regarding pain control, site checks and vs. Pain medication did bring pain down as well as blood pressure throughoutthe shift. Kaylan Enrique MD - 02/23/2020 6:12 AM EST OTOLARYNGOLOGY - HEAD & NECK SURGERY DAILY PROGRESS NOTE Name: Ward Santamaria Age/Sex: 69 y.o. male Attending: Osman Barnett MD Hospital Day: 4 3 Days Post-Op Patient ID/Reason for Admission Ward Santamaria is a 69 y.o. 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 Interval History No issues overnight. Still cannot close his eye. Urinating more. Got dilaudid x1 Vitals Last value 24hr Range Temperature: 37.3 ??C (99.1 ??F) Temp: [36.6 ??C (97.9 ??F)-37.4 ??C (99.3 ??F)] Heart Rate: 83 Heart Rate: [65-99] Blood Pressure: 162/82 BP: (141-162)/(66-82) Respiratory Rate: 15 Resp: [12-20] SpO2: 98 % SpO2: [95 %-98 %] Intake & Output Intake/Output Summary (Last 24 hours) at 02/23/2020 0508 Last data filed at 02/23/2020 0114 Gross per 24 hour Intake 775 ml Output 2852 ml Net -2077 ml Physical Exam General: NAD, non-ill appearing Face: HB V along L upper division branches, partial eyelid closure, pectoral flap covers lateral L neck, flap is well perfused, capillary refill intact, sutures c/d/i Eyes: EOMI, conjunctiva healthy, moisture chamber available for protecting L eye Ears: Right auricle, no lesions L upper helical rim remnant appears well perfused Nose: Patent nares, grossly normal appearance Oral Cavity/Pharynx: Mucosa is pink Neck: Soft, trachea midline, 1x bulb drain with serosanguinous drainge Chest: Non-labored breathing, regular rate, brandt in place, incision c/d/i, 2x chest bulb drains have serosanguinous drainage, no axillary echymosis Neuro: Alert & oriented, moving extremities x 4 Labs Recent Labs 02/23/20 0429 02/21/20 0400 02/20/20 2126 WBC 10.2* 14.3* 15.3* HGB 11.0* 10.3* 11.4* HCT 32.5* 29.2* 34.4* PLATELET 181 184 209 NA -- 139 143 K -- 3.9 4.9 CL -- 103 105 CO2 -- 26 25 BUN -- 13 11 CREATININE -- 0.76* 0.90 GLUCOSE -- 161 172 CALCIUM -- 8.5 9.2 MAGNESIUM -- 0.70 -- PHOS -- 2.6 -- Imaging No new imaging ASSESSMENT & PLAN Ward Santamaria is a 69 y.o. 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 No major issues. Plan for today is to encourage ambulation with PT/OT and independently if possible.Continue PO intake. As long as patient is urinating, will avoid frequent bladder scans since historyof BPH. Flap continues to look healthy. Surgical/Head&Neck: Keep bulb drains to suction, apply aquaphor to incision sites, please keep head of bed elevated, patient head needs to remain neutral or turned to his left side to avoid torsionon his pedicled flap. He has a left pectoral flap, the vascular pedicle is located at his midclavicular site between the incision sites on his chest and neck. The induration in that region is secondaryto the flap being located there and appears normal on exam this am. Neurologic: Pain controlled with acetaminophen & ibuprofen LI, dilaudid PRN Continue home aripiprazole, amitriptyline, lamictal Cardiovascular: Prolonged QTc, last QTc 403 (726) Continue atorvastatin, fenofibrate and metoprolol Transient Twave changes possible 2/2 demand ischemia Lactate last 1.9, down from 5 Pulmonary: Oxygenation on RA Gastrointestinal: Compazine PRN, miralax Genitourinary: Seals out; continue flomax Musculoskeletal: OOB, work with PT/OT Fluids/Electrolytes: DC IVF, Stopped labs since stable. Nutrition: Regular diet Infectious Disease: Clindamycin (for total 5 days) Hematology: Hemoglobin stable Endocrine: Glucose stable, no major issues Consults: PT/OT Lines: JPx3, PIV, Moisture Chamber Prophylaxis: Lovenox, SCDs, ambulation Disposition: Floor Status Attempt Cardiopulmonary Resuscitation - Inpatient Discharge: Discharge likely 02/24; Needs VNA; Follow-up ENT Kaylan Enrique MD, PGY-4 02/23/20 5:08 AM ENT Team Pager: [phone] Luh Sin RN - 02/22/2020 11:34 AM EST The patient's Nika has been provided a list of Home Health Agencies/DME vendors which serve their preferred geographic area. A letter describing our affiliations was reviewed with them and they were educated about their right to choose where referrals are placed. Provided patient with [facility] Star Quality Rating for Home care hand out. Patient requests referral to: [facility] in [place], [place] and [phone] Expected date of discharge: 02/25 - 02/27/20 Referral routed to the Social Service Technician for matching with agency/vendor and to provide any required information. Enma Melara MD - 02/22/2020 6:49 AM EST OTOLARYNGOLOGY - HEAD & NECK SURGERY DAILY PROGRESS NOTE Name: Ward Santamaria Age/Sex: 69 y.o. male Attending: Osman Barnett MD Hospital Day: 3 2 Days Post-Op Patient ID/Reason for Admission Ward Santamaria is a 69 y.o. 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 Interval History No acute events overnight. Pain was better controlled over the course of the day after one dose of IV dilaudid. Patient continues to complain of MSK discomfort over the flap pedicle region. He is starting to regain motion in the zygomatic branch of his facial nerve, and is able to partially close his eye. He has had higher bladder scans and required one straight cath overnight. Vitals Last value 24hr Range Temperature: 36.8 ??C (98.2 ??F) Temp: [36.8 ??C (98.2 ??F)-37.4 ??C (99.3 ??F)] Heart Rate: 73 Heart Rate: [59-91] Blood Pressure: 141/70 BP: (126-141)/(53-70) Respiratory Rate: 17 Resp: [15-19] SpO2: 95 % SpO2: [94 %-96 %] Intake & Output Intake/Output Summary (Last 24 hours) at 02/22/2020 0649 Last data filed at 02/22/2020 0450 Gross per 24 hour Intake 1318 ml Output 1455 ml Net -137 ml Physical Exam General: NAD, non-ill appearing Face: HB V along L upper division branches, partial eyelid closure, pectoral flap covers lateral L neck, flap is well perfused, capillary refill intact, sutures c/d/i Eyes: EOMI, conjunctiva healthy, moisture chamber available for protecting L eye Ears: Right auricle, no lesions L upper helical rim remnant appears well perfused Nose: Patent nares, grossly normal appearance Oral Cavity/Pharynx: Mucosa is pink Neck: Soft, trachea midline, 1x bulb drain with serosanguinous drainge Chest: Non-labored breathing, regular rate, brandt in place, incision c/d/i, 2x chest bulb drains have serosanguinous drainage, no axillary echymosis Neuro: Alert & oriented, moving extremities x 4 Labs Recent Labs 02/21/20 0400 02/20/20 2126 WBC 14.3* 15.3* HGB 10.3* 11.4* HCT 29.2* 34.4* PLATELET 184 209 NA 139 143 K 3.9 4.9 CL 103 105 CO2 26 25 BUN 13 11 CREATININE 0.76* 0.90 GLUCOSE 161 172 CALCIUM 8.5 9.2 MAGNESIUM 0.70 -- PHOS 2.6 -- Imaging No new imaging ASSESSMENT & PLAN Ward Santamaria is a 69 y.o. 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 Surgical/Head&Neck: Keep bulb drains to suction, apply aquaphor to incision sites, please keep head of bed elevated, patient head needs to remain neutral or turned to his left side to avoid torsionon his pedicled flap. He has a left pectoral flap, the vascular pedicle is located at his midclavicular site between the incision sites on his chest and neck. The induration in that region is secondaryto the flap being located there and appears normal on exam this am. Trial 1x dose of flexeril for MSK discomfort. Neurologic: Pain controlled with acetaminophen LI, dilaudid PRN Continue home aripiprazole, amitriptyline, lamictal Cardiovascular: Prolonged QTc overnight, last QTc 403 (726) Continue atorvastatin, fenofibrate and metoprolol DC Gruetli Laager after last ABG Transient Twave changes possible 2/2 demand ischemia Lactate last 1.9, down from 5 Pulmonary: Oxygenation on RA Gastrointestinal: Compazine PRN, miralax Genitourinary: DC seals, straight cath x1 this 12/4 AM, f/u bladder scans, start flomax Musculoskeletal: OOB, work with PT/OT Fluids/Electrolytes: DC IVF, continue to monitor electrolytes, K was >3.5 on 4am BMP, will continue to monitor Nutrition: Regular diet Infectious Disease: WBC 14 (15), continue clindamycin Hematology: Hemoglobin 10.3 Endocrine: glucose 150-200, continue to monitor Consults: - Lines: JPx3, PIV Prophylaxis: Lovenox, SCDs, ambulation Disposition: Transfer to floor status, Attempt Cardiopulmonary Resuscitation - Inpatient Discharge: Plan for d/c in 3-4 days; Needs VNA; Follow-up ENT Enma Ragland MD, PGY1 02/22/20 6:49 AM ENT Team Pager: [phone] Richi Cagle RN - 02/21/2020 7:51 PM EST OUTCOME EVALUATION NOTE: OUTCOME SUMMARY: Pt A+O x 4 with no neuro deficit noted. Pt with AVSS. Pt pain treated x1 with IV dilaudid which madept feel high. Pt still complained of pain though and said that neck was uncomfortable frequently. Pt up to chair for 1 hour. Pt complained of nausea and moved back to bed. Nausea resolved with some PO intake. Pt Gerda and seals pulled per order. Pt bladder scanned Q4. PLAN MOVING FORWARD: Q2 vitals Q4 I/O Encourage PO intake INDIVIDUALIZED FALL PREVENTION INTERVENTIONS: bed alarm, education to use call toscano Patient-specific fall risk factors per assessment: generalized weakness, dizziness Assistance: SBA Supervision: Arms reach Surveillance: Bed locked in low position, call toscano within reach, purposeful hourly rounding, clutter free environment, bed/chair alarm on, family at bedside Patient-specific fall prevention interventions for sensory deficits provided: Yes CPG GOAL OUTCOME EVALUATION: Continue care plan as documented. Enma Melara MD - 02/21/2020 11:45 AM EST OTOLARYNGOLOGY - HEAD & NECK SURGERY DAILY PROGRESS NOTE Name: Ward Santamaria Age/Sex: 69 y.o. male Attending: Osman Barnett MD Hospital Day: 2 1 Day Post-Op Patient ID/Reason for Admission Ward Santamaria is a 69 y.o. 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 Interval History Overnight Mr. Santamaria had nausea, for which he received 1x of compazine. His repeat EKG showed QTc prolongation so zofran was discontinued. His lactates continued to downtrend to 2.2 by 4am, after receiving fluid resuscitation. He complained of MSK discomfort at his current pedicled flap site and discomfort at his current Gruetli Laager site. Otherwise, there were no acute events overnight. He was tolerating a regular diet. Vitals Last value 24hr Range Temperature: 37.4 ??C (99.3 ??F) Temp: [36.5 ??C (97.7 ??F)-37.4 ??C (99.3 ??F)] Heart Rate: 66 Heart Rate: [66-94] Blood Pressure: 154/65 BP: (140-156)/(61-72) Respiratory Rate: 17 Resp: [14-23] SpO2: 96 % SpO2: [93 %-98 %] Intake & Output Intake/Output Summary (Last 24 hours) at 02/21/2020 1146 Last data filed at 02/21/2020 0946 Gross per 24 hour Intake 7099 ml Output 4855 ml Net 2244 ml Physical Exam General: NAD, non-ill appearing Face: HB along L branches, no eyelid closure, moisture chamber in place, pectoral flap covers lateral L neck, flap is well perfused, sutures c/d/i Eyes: EOMI, conjunctiva healthy Ears: Right auricle, no lesions L upper helical rim remnant appears well perfused Nose: Patent nares, grossly normal appearance Oral Cavity/Pharynx: Mucosa is pink Neck: Soft, trachea midline, 1x bulb drain with serosanguinous drainge Chest: Non-labored breathing, regular rate, brandt in place, incision c/d/i, 2x chest bulb drains have serosanguinous drainage Neuro: Alert & oriented, moving extremities x 4, finger raise miner strength 5/5 Labs Recent Labs 02/21/20 0400 02/20/20 2126 WBC 14.3* 15.3* HGB 10.3* 11.4* HCT 29.2* 34.4* PLATELET 184 209 NA 139 143 K 3.9 4.9 CL 103 105 CO2 26 25 BUN 13 11 CREATININE 0.76* 0.90 GLUCOSE 161 172 CALCIUM 8.5 9.2 MAGNESIUM 0.70 -- PHOS 2.6 -- Imaging No new imaging ASSESSMENT & PLAN Ward Santamaria is a 69 y.o. 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 Surgical/Head&Neck: Keep bulb drains to suction, apply aquaphor to incision sites, please keep head of bed elevated, patient head needs to remain neutral or turned to his left side to avoid torsionon his pedicled flap. He has a left pectoral flap, the vascular pedicle is located at his midclavicular site between the incision sites on his chest and neck. The induration in that region is secondaryto the flap being located there and appears normal on exam this am. Neurologic: Pain controlled with acetaminophen LI, dilaudid PRN Continue home aripiprazole, amitriptyline, lamictal Cardiovascular: Prolonged QTc overnight, last QTc 403 (726) Continue atorvastatin, fenofibrate and metoprolol DC Gruetli Laager after last ABG Transient Twave changes possible 2/2 demand ischemia Lactate last 2.2, down from 5 Pulmonary: Oxygenation on 2L NC Gastrointestinal: Compazine PRN, miralax Genitourinary: DC seals, f/u bladder scans Musculoskeletal: OOB, work with PT/OT Fluids/Electrolytes: DC IVF, continue to monitor electrolytes, K was >3.5 on 4am BMP, will continue to monitor Nutrition: Regular diet Infectious Disease: WBC 14 (15), continue clindamycin Hematology: Hemoglobin 10.3 Endocrine: glucose 150-200, continue to monitor Consults: - Lines: JPx3, Gruetli Laager, seals, PIV Prophylaxis: Lovenox, SCDs, ambulation Disposition: Stepdown status, Attempt Cardiopulmonary Resuscitation - Inpatient Discharge: Plan for d/c in 4-5 days; Needs VNA; Follow-up ENT Enma Ragland MD, PGY1 02/21/20 11:46 AM ENT Team Pager: [phone] Alycia Garza RN - 02/20/2020 9:46 PM EST Arrived to PACU from OR. Pt attached to monitors, alarms active and audible, set appropriately for pt. VSS. Chest and neck incisions CDI, 3 MAURA drains, draining without issue. Pt c/o pain, medicated andpain re assessed appropriately. Hand off report given to CONNOR Wasserman Catalina Barrientos MD - 02/20/2020 5:47 PM EST OTOLARYNGOLOGY - HEAD & NECK SURGERY POST OP CHECK Name: Ward Santamaria Age/Sex: 69 y.o. male Attending: Osman Barnett MD Hospital Day: 1 Day of Surgery Patient ID/Reason for Admission Ward Santamaria is a 69 y.o. male with PMH significant for CAD, BPH, H/O drug use, Hep C, and BPH with 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 Interval History Surgery: Procedure(s): EXCISION OF PAROTID TUMOR OR PAROTID GLAND, TOTAL, WITH DISSECTION AND PRESERVATION OF FACIAL NERVE (WRVU 19.53) EXC MALIGNANT LESION, >4.0CM, EARS (WRVU 6.26) EXC MALIGNANT LESION, 3.1 TO 4.0CM, FACE (WRVU 4.34) @CERVICAL LYMPHADENECTOMY (MODIFIED RADICAL NECK DISSECTION) (WRVU 23.95) FLAP, MYOCUTANEOUS OR FASCIOCUTANEOUS, TRUNK (WRVU 19.86) FACIAL NERVE MONITORING, SETUP PERIPHERAL (WRVU 0.54) @RESECTION TEMPORAL BONE, EXTERNAL APPROACH (WRVU 37.42) MICROSCOPE USE (WRVU 3.46) Subjective/Events: Patient denies fever, chills, chest pain, shortness of breath, dizziness, headache, abdominal pain, nausea, vomiting, numbness, tingling. Pain well-controlled. Medicine was curbsided for intra-op lactate. They recommended STAT Hemogram, CMP, ABG, BCx, UA, EKG.Troponins only necessary if patient exhibiting s/s of ACS. Vitals Last value 24hr Range Temperature: 36.5 ??C (97.7 ??F) Temp: [36.5 ??C (97.7 ??F)-37.4 ??C (99.3 ??F)] Heart Rate: 86 Heart Rate: [71-94] Blood Pressure: 156/64 BP: (140-156)/(61-76) Respiratory Rate: 14 Resp: [14-23] SpO2: 96 % SpO2: [93 %-98 %] Intake & Output Intake/Output Summary (Last 24 hours) at 02/20/2020 2353 Last data filed at 02/20/2020 2300 Gross per 24 hour Intake 7550 ml Output 4210 ml Net 3340 ml Physical Exam General: NAD, non-ill appearing Face: Incision along L face is c/d/i, local flap is well pale but warm, drains with sanguinous output, facial nerve is impaired on the left side (unable to shut left eye, raise eyebrow, asymmetric smile) Neuro exam is otherwise intact CN II - XII, UE and LE intact to motor and sensation bilaterally. Eyes: EOMI, conjunctiva healthy Ears: Auricles symmetric, no lesions Nose: Patent nares, grossly normal appearance Oral Cavity/Pharynx: Mucosa is pink, oropharynx symmetric, tongue moves bilaterally without weakness Neck: Soft, trachea midline Chest: Unlabored breathing, regular rate, incision with brandt and is c/d/i Neuro: Alert & oriented, moving extremities x 4 CV: systolic ejection murmur Labs Recent Labs 02/20/20 2126 WBC 15.3* HGB 11.4* HCT 34.4* PLATELET 209 NA 143 K 4.9 CL 105 CO2 25 BUN 11 CREATININE 0.90 GLUCOSE 172 CALCIUM 9.2 BCx - pending UA - negative nitrite, leukocyte LFTs - AST 17, ALT 12, TBili 0.7 BMP - Na 143, K 4.9, BUN 11, Cr 0.9 EKG - NSR, prolonged QT (594) ABG 7.34 / 35 / 68 with lactate 3.1 Imaging No post-imaging Personally reviewed and evaluated ASSESSMENT & PLAN Wrad Santamaria is a 69 y.o. male s/p Procedure(s): EXCISION OF PAROTID TUMOR OR PAROTID GLAND, TOTAL, WITH DISSECTION AND PRESERVATION OF FACIAL NERVE (WRVU 19.53) EXC MALIGNANT LESION, >4.0CM, EARS (WRVU 6.26) EXC MALIGNANT LESION, 3.1 TO 4.0CM, FACE (WRVU 4.34) @CERVICAL LYMPHADENECTOMY (MODIFIED RADICAL NECK DISSECTION) (WRVU 23.95) FLAP, MYOCUTANEOUS OR FASCIOCUTANEOUS, TRUNK (WRVU 19.86) FACIAL NERVE MONITORING, SETUP PERIPHERAL (WRVU 0.54) @RESECTION TEMPORAL BONE, EXTERNAL APPROACH (WRVU 37.42) MICROSCOPE USE (WRVU 3.46). Patient is doing well postoperatively. Continue with current care plan. D/c Zofran and other QT prolonging medications F/u midnight ABG to ensure down-trending lactate __ Catalina Barrientos MD, PGY1 02/20/20 11:53 PM ENT Team Pager: [phone] documented in this encounter H&P Notes Aracely Ewing MD - 02/20/2020 6:58 AM EST OTOLARYNGOLOGY - HEAD & NECK SURGERY INTERVAL H&P NOTE Name: Ward Santamaria Age/Sex: 69 y.o. male Attending: Osman Barnett MD Hospital Day: 1 Day of Surgery Interval History Please see clinic/scanned H&P dated 01/30. In brief, Ward Santamaria presents today for parotidectomy, partial auriculectomy, neck dissection, flapand temporal bone resection. There have been no changes to his history. COVID Test negative. Patient denies symptoms of COVID, exposure to COVID or any known COVID contacts. 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 CV: Regular rate Pulm: Unlabored breathing Abd: Abdomen soft and non-tender Ext: No peripheral edema ASSESSMENT & PLAN Plan for parotidectomy, partial auriculectomy, neck dissection, reconstruction flap and temporal bone resection. Risks and alternatives to surgeries discussed with patient. All questions answered. Consent signed, dated, placed in chart Ok to proceed with scheduled operation. Aracely Ewing MD, PGY2, Pager [phone] 02/20/20 6:58 AM ENT Team Pager: [phone] documented in this encounter Nursing Notes Lisy Fam RN - 02/21/2020 12:58 AM EST 2315-Received report from [place] 0000-Pt assessed and heard a murmur. Pt denies chest pain and SOB and any history of murmurs or arrhythmias -MD Jones messaged and made aware, she will assess when he arrives in his room shortly as he was too sleepy at the first assessment. [facility] called to ask if they would accept an A-line from ENT for a repeat ABG at 0400- they agreed to accept as it was not for BP concerns. MD Jones also made aware of no fluid orders and pt taking only sips of water 0030-MD Jones made aware pt had one emesis and compazine given. No fluids ordered at this time. 0105-MD Jones at the bedside to assess patient for exam now that he is awake. Fluids ordered and she paged ENT concerning the new murmur and ongoing L droop and inability to lift L eyebrow. Plan is for ENT will workup murmur tomorrow. They are expecting the droop and eyebrow at this time. 0135-Pt transported to [facility]. A-line remains in place. Flap check done with [facility] nurse-no changes. documented in this encounter Miscellaneous Notes Plan of Care - Sonia Rodgers RN - 02/26/2020 10:52 AM EST OUTCOME EVALUATION NOTE: OUTCOME SUMMARY: Pt had no complaints during the shift. Pt was able to ambulated using the FWW to the bathroom x1 today. Pt had no complaints of pain. No n/v/d noted. Pt L side neck flap perfusing AEB >3 second cap refill, p/w/d skin. Both Mani-Sin drains had minimal output (<10mL). Pt is to keep MAURA drains at home and follow up in two days to have them removed (this was reiterated to the patient and his wif e). Pts was called with the discharge instructions. VSS, WCTM. Ward Santamaria discharged to home with via private car. All belongings sent with patient. FLOR removed, incision L neck cdi, skin free from pressure ulcers. Discharge instructions, medications, and follow-up appointments reviewed, education provided on infection, paper prescriptions given to patient,all questions answered. VNA paperwork faxed. Patient instructed to call with concerns. PLAN MOVING FORWARD: D/C INDIVIDUALIZED FALL PREVENTION INTERVENTIONS: Patient-specific fall risk factors per assessment: lower extremity weakness Assistance: 1 assist, FWW Supervision: Hands on Surveillance: Bed locked in low position, call toscano within reach, purposeful hourly rounding, clutter free environment, bed/chair alarm on Patient-specific fall prevention interventions for sensory deficits provided: no CPG GOAL OUTCOME EVALUATION: Continue care plan as documented. Plan of Care - Lisa Hairston PT - 02/26/2020 10:11 AM EST PHYSICAL THERAPY CONTACT NOTE: In to see patient for f/u treatment session prior to discharge. Pt reports he thinks his spouse has a walker he can use and needs to connect with her before connecting with the CM to assist with obtaining a walker. Educated patient about stair negotiation. He denied the need to practice navigating stairs at this time. He reports he has two strong boys to help him up and then he plans to remain on that level of the home. He denies need for any further acute PT intervention. Pt asked for assistance obtaining modified mask given patient's ear defect. Provided modified mask. Pt will remain monitored by PT services until formal discharge. Lisa Hairston, PT Pager #[phone] Plan of Care - Pita Bradley RN - 02/26/2020 4:55 AM EST Problem: Patient Care Overview Goal: Plan of Care Review Outcome: Ongoing (Interventions Implemented as Appropriate) 02/26/20 0438 Coping/Psychosocial Plan Of Care Reviewed With patient Plan of Care Review Progress progress toward functional goals is gradual OUTCOME EVALUATION NOTE: OUTCOME SUMMARY: A+O x4. VSS. No new changes. Pt c/o neck pain that is moderately controlled w/ scheduled/prn medications and repositioning prn. L neck incision noted to have scant serosanguinous drainage. Otherwise, incisions REGISTRAR ASSISTANT and CDI. Q4 flap monitoring WDL. [address] w/ minimal drainage (see Mar). Pt ambulating to BR w/ FWW, voiding adequately. Will continue to monitor. PLAN MOVING FORWARD: Monitor incisions, pain mgmt and d/c planning. INDIVIDUALIZED FALL PREVENTION INTERVENTIONS: Patient-specific fall risk factors per assessment: pain, generalized weakness, hospital environment Assistance: 1 assist, FWW Supervision: Eyes on, Arms reach Surveillance: Bed locked in low position, call toscano within reach, purposeful hourly rounding, clutter free environment, bed/chair alarm on Patient-specific fall prevention interventions for sensory deficits provided: N/A CPG GOAL OUTCOME EVALUATION: Continue care plan as documented. Plan of Care - Paola Garcia RN - 02/25/2020 3:51 PM EST Problem: Patient Care Overview Goal: Plan of Care Review Outcome: Ongoing (Interventions Implemented as Appropriate) 02/22/20 1831 02/25/20 0800 Coping/Psychosocial Plan Of Care Reviewed With -- patient Plan of Care Review Progress progress toward functional goals is gradual -- OUTCOME EVALUATION NOTE: OUTCOME SUMMARY: Pt. Alert and oriented X4. AVSS. Pt. Up and ambulated in hallway X3 with FWW (see flow sheets). Strong and steady when ambulating, would like to be D/C with a FWW. Incisions REGISTRAR ASSISTANT, C/D/I. Flap check WDL.Reported pain, given PRN medication for pain (see MAR), with positive effect. MAURA with minimal outputthroughout shift (see I&O). Only 2 MAURA drains remaining. 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 Plan to transfer to the floor. Otherwise, no acute issues or concerns. Will continue to assess. PLAN MOVING FORWARD: Monitor MAURA output, pain management, discharge planning INDIVIDUALIZED FALL PREVENTION INTERVENTIONS: Patient-specific fall risk factors per assessment: pain, generalized weakness, medical equipment, hospital environment Assistance: 1assist, FWW Supervision: Eyes on, Arms reach Surveillance: Bed locked in low position, call toscano within reach, purposeful hourly rounding, clutter free environment, bed/chair alarm on Patient-specific fall prevention interventions for sensory deficits provided: Yes CPG GOAL OUTCOME EVALUATION: Continue care plan as documented. Plan of Care - Paola Garcia RN - 02/24/2020 6:08 PM EST Problem: Patient Care Overview Goal: Plan of Care Review Outcome: Ongoing (Interventions Implemented as Appropriate) 02/22/20 1831 02/24/20 0800 Coping/Psychosocial Plan Of Care Reviewed With -- patient Plan of Care Review Progress progress toward functional goals is gradual -- OUTCOME EVALUATION NOTE: OUTCOME SUMMARY: Pt. Alert and oriented X4. AVSS. Pt. Up and ambulated in hallway X2 with FWW (see flow sheets). Incisions REGISTRAR ASSISTANT, C/D/I. Flap check WDL. Reported pain, given PRN medication for pain (see MAR), with positive effect. MAURA with minimal output throughout shift (see I&O). Otherwise, no acute issues or concerns. Will continue to assess. PLAN MOVING FORWARD: Pain management, encourage ambulating, discharge planning INDIVIDUALIZED FALL PREVENTION INTERVENTIONS: Patient-specific fall risk factors per assessment: generalized weakness, medical equipment, hospitalenvironment Assistance: 1assist, FWW Supervision: Eyes on, Arms reach Surveillance: Bed locked in low position, call toscano within reach, purposeful hourly rounding, clutter free environment, bed/chair alarm on, family at bedside Patient-specific fall prevention interventions for sensory deficits provided: Yes CPG GOAL OUTCOME EVALUATION: Continue care plan as documented. Plan of Care - Milly Varghese RN - 02/22/2020 6:35 PM EST Problem: Patient Care Overview Goal: Plan of Care Review Outcome: Ongoing (Interventions Implemented as Appropriate) 02/22/20 1831 Coping/Psychosocial Plan Of Care Reviewed With patient Plan of Care Review Progress progress toward functional goals is gradual OUTCOME EVALUATION NOTE: OUTCOME SUMMARY: Received pt for care 11am-19pm No new issues this shift. A+Ox4, pain managed with scheduled advil/tylenol. Able to ambulate with 1A with FWW. Flap checks unchanged, surgical site intact and WNL. Minimal outpt from MAURA drains. VSS. Adequate spO2 on room air. Voiding urine now without issue (up to toilet). Last BM prior to admission, pt accepted miralax. abdo soft and passing gas, See all flowsheets. PLAN MOVING FORWARD: VS Q4 Flap checks q 4 Continue providing care per MD orders INDIVIDUALIZED FALL PREVENTION INTERVENTIONS: Patient-specific fall risk factors per assessment: [current deficits]: Generalized weakness, many cords and wires Assistance [level of assistance required for transfers and ambulation]: Ax1 with FWW Supervision [direct monitoring required during toileting and ADLs]: aX1 Surveillance [continuous indirect monitoring]: TELE, MASIMO, frequent rounds Patient-specific fall prevention interventions for sensory deficits provided, if applicable: [X] N/A CPG GOAL OUTCOME EVALUATION: ongoing Plan of Care - Sherin Medeiros OT - 02/22/2020 2:57 PM EST Occupational Therapy Evaluation Patient profile: Ward Santamaria??is a 69 y.o.??male?with PMH significant for CAD, BPH, H/O drug use,Hep C, and BPH??with??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 History reviewed. No pertinent past medical history. Past Surgical History: Procedure Laterality Date ??? KIDNEY STONE SURGERY ??? PRG SOMATOSENSORY TEST, ANY/ALL PER. NERVES, TRUNK OR HEAD N/A 02/20/2020 FACIAL NERVE MONITORING, SETUP PERIPHERAL (WRVU 0.54) performed by Osman Barnett MD at [facility] MAIN OR ??? PRO ADJ TISS TRANSFER/REARRANGEMENT ANY AREA 30.1-60 SQCM Left 02/20/2020 ADJACENT TISSUE TRANSFER OR REARRANGEMENT; 30.1 TO 60.0 SQ CM, THORAX (WRVU 12.65) performed by Osman Barnett MD at [facility] MAIN OR ??? PRO ADJ TISS TRANSFER/REARRANGEMENT ANY AREA EA ADDL 30SQCM Left 02/20/2020 ADJACENT TISSUE TRANSFER OR REARRANGEMENT; EA ADD'L 30.0 SQ CM, OR PART OF (WRVU 3.73) performed byOsman Barnett MD at [facility] MAIN OR ??? PRO COLONOSCOPY, REMV LESN, SNARE N/A 07/07/2015 COLONOSCOPY, POLYPECTOMY, REMOVAL LESION BY SNARE performed by Jose Manuel Heller MD at [facility] ENDOSCOPY ??? PRO EXC PAROTD, TOTAL, DISSECT 5TH NERV Left 02/20/2020 EXCISION OF PAROTID TUMOR OR PAROTID GLAND, TOTAL, WITH DISSECTION AND PRESERVATION OF FACIAL NERVE(WRVU 19.53) performed by Osman Barnett MD at [facility] MAIN OR ??? PRO EXC SKIN MALIG 3.1-4CM FACE, FACIAL Left 02/20/2020 EXC MALIGNANT LESION, 3.1 TO 4.0CM, FACE (WRVU 4.34) performed by Osman Barnett MD at [facility] MAIN OR ? ? PRO EXC SKIN MALIG >4CM FACE, FACIAL Left 02/20/2020 EXC MALIGNANT LESION, >4.0CM, EARS (WRVU 6.26) performed by Osman Barnett MD at [facility] [place] ??? PRO MICROSURG TECHNIQUES, REQ OPER MICROSCOPE N/A 02/20/2020 MICROSCOPE USE (WRVU 3.46) performed by Neo Gilman MD at [facility] MAIN OR ??? PRO MUSCLE-SKIN FLAP, TRUNK Left 02/20/2020 FLAP, MYOCUTANEOUS OR FASCIOCUTANEOUS, TRUNK (WRVU 19.86) performed by Osman Barnett MD at [facility] OR ??? PRO REMOVAL NODES, NECK, CERV MOD RAD Left 02/20/2020 @CERVICAL LYMPHADENECTOMY (MODIFIED RADICAL NECK DISSECTION) (WRVU 23.95) performed by Osman Barnett MD at [facility] MAIN OR ??? PRO RESECT TEMPORAL BONE, SALOON KEEPER APPRCH Left 02/20/2020 @RESECTION TEMPORAL BONE, EXTERNAL APPROACH (WRVU 37.42) performed by Neo Gilman MD at [facility] [place] Social History: Patient lives with in a house in [place], [place] Home Setup: Pt reports 4 DOREEN with b/l rails. Pt has a FOS to bedroom and full bathroom. Pt sleeps barron waterbed with hardwood box frame, but reports that he could sleep in the lazy boy. DME: None Baseline ADL/Mobility: Pt independent at baseline with all ADL and IADL routines. Pt is retired. 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 Pt works full-time, but can take timeoff to assist Pt upon discharge. Precautions/Special Considerations: head in neutral or turn to L only, 3 MAURA drains, GRAND TRAVERSE, eye chamberfor L (difficulty with full closure), OOB to chair, HOB >30 degrees, regular diet Subjective: I am just really exhausted Objective: Seen today for OT evaluation. Cognitive Status/Behavior: ?? Behavior / Mood: alert and cooperative ?? Alert and oriented to: person, place, time and situation ?? Follows commands: 1 step, 100% of the time and requires repetition ?? Attention: WFL ?? Safety awareness: WFL Vision & Perception: ?? WNL/WFL ?? 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 Pt not wearing glasses at this time secondary to incisions and due to decreased ear Communication: WFL Range of motion, strength, coordination: Hand dominance: right LUE limited for shoulder flexion did not formally assess secondary to pain ~60 degrees to reach for walker RUE WFL for AROM LE limitations: WFL Sensation: Pt denied any parasthesias Activities of Daily Living: Self-feeding: Anticipate indepdnent Grooming: Supervision to wipe face Dressing: Able to adjust socks performing figure four bilaterally with extended time Bathing: Did not assess Toileting: Transfer: CGA with FWW Hygiene: Supervision Functional Mobility: Supine to sit: Min A with HOB elevated and cues for sequencing and safety Sit to stand: CGA to FWW Ambulation: Supervision with FWW ~15 ft within room Stand to sit: CGA with cues for safety Sit to supine: Min A for overall safety Balance: Sitting balance: Good Standing balance: Good Vitals: VSS on RA Pain: 4/10 L side of neck; RN aware Skin: Incision sites and MAURA drain all CDI Education: patient have been educated on Role of occupational therapy/rehabilitation, Transfers, ADL, Positioning, Safety, Precautions/Protocol, Functional Mobility, Balance, Recommendations and Dischar ge planning and verbalize understanding. Patient status, treatment, and mobility recommendations discussed with nursing. Assessment: Pt has been seen for occupational therapy evaluation. Ward Santamaria presents with the following performance skill deficits and client factors: increased pain, decreased flexibility/ROM, decreased sitting/standing balance, precautions/bracing, compromised mobility status and skin integrity. These performance deficits have led to activity limitations and participation restrictions in the following areas of occupation: dressing, grooming, transfers/mobility, home management, driving and community mobility. Pt seen for OT evaluation. Pt reported fatigue, but was willing to participate in OT ev aluation. Pt requiring min A to CGA for transfers and ADL routines at this time. Pt aware of precautions and able to maintain head in neutral position. Anticipate Pt will make good progress and be safeto return home with home health when medically stable. Pt would benefit from further inpatient OT interventions to address performance deficits and maximize participation and independence with occupations of daily living. Equipment needs at discharge: TBD Anticipated Discharge Disposition: home with assist, home with home health Other Recommendations: ?? Utilize upright chair position using bed features or transfer to recliner chair as appropriate with CGA with FWW, ambulate as tolerated ?? Encourage participation in ADL's by providing set up A on tray table and physical assist only as needed Other Recommendations: No other consults recommended at this time Goals: To be achieved by 03/14/20. 1. Pt will be conditional independent for LB dressing routines with AE as needed at seated/standing levels 2. Pt will be conditional independent for toileting routine at ambulatory level 3. Pt will be conditional independent for simple snack prep at ambulatory level 4. Pt will be independent for HEP for BUEs 5. Pt will be able to stand for 8 minutes to perform sink level grooming task with LRAD?? Plan: OT: Therapy Frequency: 1-3 more visits Planned OT interventions: Role of occupational therapy/rehabilitation, Transfers, Assistive device/technique, Adaptive equipment training, ADL, Exercise, Breathing exercises, Positioning, Safety, Precautions/Protocol, Functional Mobility, Activity pacing/Energy conservation, Home Program, Home Management, Balance, Recommendations, Family training and Discharge planning. Total Evaluation Minutes, Occupational Therapy: 24(1 low complexity evaluation ) 2017 OT Evaluation Code Rationale: ?? Diagnosis & Pertinent Co-Morbidities affecting Plan of Care: see PMHx ?? Occupational Profile & Client History: Brief Expanded Extensive x ?? Assessment of Occupational Performance: 1-3 performance deficits x 3-5 performance deficits 5 + performance deficits ?? Clinical Decision Making: Low Moderate High x Clinical decision making of low complexity using standardized patient assessment instrument and measurable assessment of functional outcome. 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 Patient with the following active problems: History reviewed. No pertinent past medical history. Past Surgical History: Procedure Laterality Date ??? KIDNEY STONE SURGERY ??? PRG SOMATOSENSORY TEST, ANY/ALL PER. NERVES, TRUNK OR HEAD N/A 02/20/2020 FACIAL NERVE MONITORING, SETUP PERIPHERAL (WRVU 0.54) performed by Osman Barnett MD at [facility] MAIN OR ??? PRO ADJ TISS TRANSFER/REARRANGEMENT ANY AREA 30.1-60 SQCM Left 02/20/2020 ADJACENT TISSUE TRANSFER OR REARRANGEMENT; 30.1 TO 60.0 SQ CM, THORAX (WRVU 12.65) performed by Osman Barnett MD at [facility] MAIN OR ??? PRO ADJ TISS TRANSFER/REARRANGEMENT ANY AREA EA ADDL 30SQCM Left 02/20/2020 ADJACENT TISSUE TRANSFER OR REARRANGEMENT; EA ADD'L 30.0 SQ CM, OR PART OF (WRVU 3.73) performed byOsman Barnett MD at [facility] MAIN OR ??? PRO COLONOSCOPY, REMV LESN, SNARE N/A 07/07/2015 COLONOSCOPY, POLYPECTOMY, REMOVAL LESION BY SNARE performed by Jose Manuel Heller MD at [facility] ENDOSCOPY ??? PRO EXC PAROTD, TOTAL, DISSECT 5TH NERV Left 02/20/2020 EXCISION OF PAROTID TUMOR OR PAROTID GLAND, TOTAL, WITH DISSECTION AND PRESERVATION OF FACIAL NERVE(WRVU 19.53) performed by Osman Barnett MD at [facility] MAIN OR ??? PRO EXC SKIN MALIG 3.1-4CM FACE, FACIAL Left 02/20/2020 EXC MALIGNANT LESION, 3.1 TO 4.0CM, FACE (WRVU 4.34) performed by Osman Barnett MD at [facility] MAIN OR ? ? PRO EXC SKIN MALIG >4CM FACE, FACIAL Left 02/20/2020 EXC MALIGNANT LESION, >4.0CM, EARS (WRVU 6.26) [facility] ??? PRO MICROSURG TECHNIQUES, REQ OPER MICROSCOPE N/A 02/20/2020 MICROSCOPE USE (WRVU 3.46) performed by Neo Gilman MD at [facility] MAIN OR ??? PRO MUSCLE-SKIN FLAP, TRUNK Left 02/20/2020 FLAP, MYOCUTANEOUS OR FASCIOCUTANEOUS, TRUNK (WRVU 19.86) performed by Osman Barnett MD at [facility] MAIN OR ??? PRO REMOVAL NODES, NECK, CERV MOD RAD Left 02/20/2020 @CERVICAL LYMPHADENECTOMY (MODIFIED RADICAL NECK DISSECTION) (WRVU 23.95) performed by Osman Barnett MD at [facility] MAIN OR ??? PRO RESECT TEMPORAL BONE, SALOON KEEPER APPRCH Left 02/20/2020 @RESECTION TEMPORAL BONE, EXTERNAL APPROACH (WRVU 37.42) [facility] Non-Hospital Problems Diagnosis ??? History of basal cell carcinoma ??? Left foot pain ??? PTTD (posterior tibial tendon dysfunction) ??? Seborrheic keratosis, inflamed ??? AK (actinic keratosis) ??? Basal cell carcinoma ??? CAD (coronary artery disease) ??? Hyperlipemia ??? Bipolar affective disorder ??? BPH (benign prostatic hyperplasia) ??? Psoriasis ??? H/O drug abuse ??? Hepatitis C ??? Basal cell cancer ??? 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 Pt. to utilize FWW and 1A for ambulation and transfers with nursing. ?? Please encourage up to chair for meal times as able. ?? Pt encouraged to ambulate frequently with staff, getting into the bathroom for toileting and walking out in the george >/= 3 times daily as able. Subjective: ???I'm very tired?? Objective: Pt seen for evaluation today. Pain: appeared to be tolerable Vital Signs: 98% on RA HR 80's Mental Status: alert, oriented to person, place, and time Vision: wears glasses, said he is unable to read the clock, doesn't have them here? (unsure how theywill stay on anyway with lack of L ear?) Skin: incision on L side of neck Musculoskeletal: ROM: LE WFL Strength: LE WFL, reports weakness in his LUE (unable to raise higher than 90 degrees), elbow and wrist functioning WNL, says this is new since surgery because it hurts due to the cutting of the arm Sensation: LE WFL Bed Mobility: Supine to Sit: not assessed Sit to Supine: HOB elevated, increased pain, Mnoica provided Transfers: Sit to Stand: cgA, FWW Stand to Sit: cgA, FWW Bed to Chair: cgA, FWW Gait: Distance: ~30' Device used: FWW Level of assist: CgA, Monica a few times for minor LOB Gait mechanics: decreased fallon, shuffling gait, vc's to increase step length and fallon, pt reporting he is very tired, mildly dizzy and wishes to turn back arond Stairs: deferred at this time Balance: Sitting Static: good Sitting Dynamic: fair Standing Static: good Standing Dynamic / Gait: Fair with FWW Education: patient has been educated on Bed mobility, Transfers, Assistive device/technique, Precautions/protocol, Gait , Role of therapy and Discharge planning and verbalizes understanding. Patient status, treatment, and mobility recommendations discussed with nursing. Assessment: Ward Santamaria was seen today for physical therapy evaluation. Patient presents with generalized weakness, fatigue, increased pain, and new neck incisions. Patient able to mobilize well today with cgA but limited by fatigue, dizziness and pain. Anticipate patient to make good progress as he starts to feel better. Anticipate discharge to home once medically cleared.The pt would benefit from skilled therapy services while in the hospital to maximize functional abilities. Discharge Recommendations: Based on the current findings, Anticipated Discharge Disposition: home with assist when medically ready for hospital discharge. Consult Recommendations: No other consults recommended at this time. Equipment needs: ?? FWW Goals: To be achieved by 02/29/2020 1. Pt. to perform bed mobility independently and or may choose to sleep in Dandy-boy. 2. Pt. to perform sit to stand transfers with modified independence using LRAD. 3. Pt. to ambulate 150 feet with modified independence using a LRAD. 4. Pt. to ambulate up/down 12 step/stairs using one rail with supervision. Plan: Therapy Frequency: 1-3 more visits for therapy including bed mobility training, gait training,patient/family education, stair training and transfer training. Patient/family understand and agree with plan as stated above. 2017 PT Evaluation Code Rationale: ?? Diagnosis & Pertinent Co-Morbidities, personal factors, and present illness affecting Plan ofCare: (see above); Additional personal factors or co- morbidities that impact plan: ?? Total # of Factors: 0 1-2 3+ x ?? Examination of body system impairments, functional limitations and behaviors, and/or participation restrictions. Addressing 1-2 elements Addressing 3 + elements Addressing 4 + elements x ?? Clinical presentation: See assessment above. Stable/Uncomplicated Evolving/Fluctuating Symptoms Unstable/Unpredictable x ?? Clinical decision making of moderate complexity based on pt's functional performance as outlined in this evaluation. Time IN / OUT: 4302-2089 Total Evaluation Minutes, Physical Therapy: 35(eval; TEF) Alfred Parnell, PT Pager: [phone] Physical Therapy Inpatient Rehabilitation Department Initial Assessments - Luh Cedillo RN - 02/21/2020 8:06 AM EST Office of Care Management Initial Assessment Luh Cedillo RN reviewed record and discussed patient with Care Team. Source of Information: ENT Team, Charge nurse chart review, and interviewing patient. Introduced self/reviewed role; services accepted. Pt became nauseous during interview, will follow up to complete on 02/22/20 Addended 02/23/20 Reason for Hospitalization: <principal problem not specified> Per H&P note by : Aracely Ewing: In brief, Ward Santamaria presents today for parotidectomy, partial auriculectomy, neck dissection, flap and temporal bone resection. ? History reviewed. No pertinent past medical history. Last Covid: 02/17/20 @ 1200 Hospitalizations Within the Past 30 Days: [facility] [place] in last 30 days: ED, 02/17/20: Ward Santamaria brandon 69 y.o. 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 Anticipated Length Of Stay (If known): 6 days Vs TBD Current Decision-Making Capacity: Patient is A&Ox4 Advance Care Planning: Attempt Cardiopulmonary Resuscitation - Inpatient AD in [facility], lists: Park Santamaria spouse [phone] (H) [phone] (M) as the primary DPOAH and Hola Santamaria @ [phone] the secondary. Current Coping/Education/Information Needs: Coping well with hospital stay and feels updated on issues and plan. Current Functional Ability: Ambulatory w/standby assist. Functional Status Prior to Admission: Fully functional w/ADL's; was driving Home Environment: 4 DOREEN w/railings, but they are far apart Can sleep in lazy boy downstairs, but bathroom is upstairs, full FOS w/o railing Physical Address: [address] [place] [address] Mailing Address [address] 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 She is anxious to work w/[facility] to understand how to monitor/take care of any incision sites Extended Emergency Contact Information Primary Emergency Contact: Nika Santamaria [facility] Mobile Relation: Spouse Secondary Emergency Contact: Bri Santamaria [facility] Relation: Niece/Nephew Behavioral Health History: No issues identified Substance Use/Abuse: Not discussed Health/Prescription Coverage: Primary Insurance: [facility] Secondary Insurance: N/A Prescription Coverage: Preferred Pharmacy: [facility] [address] [place] [address] [place] [address] [place] [id number] [facility] - [place], [place] - [address] AT Portal to Registered [facility] Sites [address] [facility] [address] Other: none Primary Care Provider: Tara Joya MD [phone] Patient/Caregiver Goals of Treatment: return to previous level of function Potential Needs for Transition of Care: Discussed with patient and family levels of rehab including SNF, swing, acute and [facility] home health care also discussed. Discussed need to accept first bed available when patient is medically ready. Rehab/SNF: None Home Health: None DME: none Dialysis: NA Community Resources: none Transportation: w/car Other: none Anticipated Barriers to Discharge/Special Considerations: none Assessment: Patient is admitted to ENT service for growth removal. He lives w/his who is very supportive. She works timekeeper supervisor but can take time off when Pt comes home. She is anxious to work w/[employer] to understand how to monitor/take care of any incision sites. They share a multilevel home w/4 DOREEN w/railings, but they are far apart. He can sleep in lazy boy downstairs, but bathroom is upstairs, full FOS w/o railing Plan: A member of the Care Management team will continue to monitor progress, follow for continuity of care and assist with transition of care planning. 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 Total parotidectomy with facial nerve [...] site 9 x 9 cm, 81 cm?? Surgeons: MD Kaylan De La Rosa MD, MD, MD Anesthesia: General EBL: 200 mL Indication for procedure: This 69-year-old male has a history of a rapidly growing large mass involving the left parotid ear and facial skin both preauricular and postauricular who presents for resection and reconstruction. He is also undergoing a temporal bone resection as part of resection of the por tion of tumor extending into the middle ear which was performed by Dr. Gilman. Please see his operative note for full details Operative findings: Large tumor involving the lower [...] muscle as well as the glenoid fossa. Procedure description: After informed consent was obtained the patient was placed under general anesthesia the table was turned 90 degrees. Timeout was called and the patient was prepped and draped forthe above-mentioned procedure with facial nerve monitoring electrodes placed at the eye and the lip.Nerve integrity monitoring was maintained throughout the procedure. Postauricular incision was marked out and injected with 1% Xylocaine with 100,[address] Gilman and his team initiated the temporal bone resection and I refer you to his operative note for full details. Once the temporal bone resection was completed we then proceeded with the above-mentioned procedure. We started out by marking out margins around the skin portion of the tumor involving the preauricular, postauricular, and ear. These areas were all injected with 1% Xylocaine with 1 200,000 epinephrine. Resection of the ear was performed right at the helical root and coming just above the kong at the level of the inferior elizabeth and coming posteriorly through the antihelix and helix. The incision wasthen carried down to the postauricular sulcus and communicated with the prior postauricular incision. Anteriorly the incision was carried into the preauricular skin and maintaining a margin around the tumor down to the parotid fascia. Once the circumferential skin incisions were completed we then did skin flap elevations superiorly and inferiorly to expose the neck and the parotid. The facial nerve branches of the parotid gland werethen identified exiting the gland specifically the buccal branch and then we then proceeded with a retrograde dissection of the facial nerve back to the main trunk as much as possible until the tumor was encountered. We were able to retrograde dissect all peripheral divisions of the facial nerve however once we got close to the lower division that was completely encased in tumor and was sacrificed atthe takeoff from the main bifurcation. We were able to mobilize the upper division however and reflec reynaldo the gland and tumor away from the upper division successfully although significant manipulation occurred resulting in lack of stimulation of the nerve once we fully mobilize the gland and tumor away from it. Once all the divisions of the nerve were dissected out we are able to reflect the superficial lobe of the parotid and this was removed in continuity with the temporal bone resection once we finished the soft tissue releasing cuts around the digastric ridge and posteriorly. The styloid process was also maintained attached to the mastoid tip and we released the stylohyoid and stylomandibular attachments to the styloid process to include this bone with the resection. Once the main specimen was removed it was oriented and submitted to pathology for permanent analysis. Additional frozen sections were also submitted around the glenoid fossa and along the temporalis muscle which were negative for malignancy. We then dissected out additional deep lobe tumor going into the parapharyngeal space and tumor here was identified and removed and submitted to pathology as a deep lobe parotid. Ultimately essentially all parotid gland was removed on the side at the conclusion of this portion of the resection. Once we were done with this portion we then proceeded with a neck dissection and this included levels 1B through 3. This was performed the usual fashion for smart starting first with dissection of the perifacial lymph nodes and reflecting these down off the mylohyoid muscle and including the submandibular gland we then released the parasympathetic branch to the submandibular gland coming off the lingual and divided the facial artery branches going to the gland and ultimately then reflected this off of the digastric muscle. We then reflected the fascia off of the anterior border the sternocleidomastoid muscle coming around this along the medial aspect of the SCM identifying the accessory nerve and cervical rootlets as well as the omohyoid muscle. The contents of levels 2 and 3 were then reflected off of the floor the neck and carotid sheath ligating the tributaries feeding the internal jugular vein along the medial aspect. Level 2B was dissected out separately and submitted as a separate specimen. All neck dissection levels then removed and submitted a separate section levels labeled as 1B, 2B,3, and 2A. We then turned our attention to reconstruction of the large facial defect which was measured at about 9 x 9 cm. An elliptical flap of roughly the same dimensions was marked out on the chest overlying the pectoralis muscle. Incisions were then carried down through the skin and subcutaneous tissue down t o the pectoralis muscle itself. Wide undermining of the chest skin was then performed so that once the flap was harvested we would be able to close this 9 x 9 cm defect by adjacent transfer of the chest wall tissues. After wide undermining was performed we were able to expose the entire pectoralis muscle. The pectoralis muscle was then reflected off of the chest wall ligating the internal mammary branches feeding the muscle. The lateral thoracic branch was mobilized from the muscle and preserved so that the flap was fed by both the thoracoacromial and lateral thoracic pedicles. We then released thehumeral attachment of the pectoralis muscle and then tunneling the muscle flap under the skin of thechest and into the neck we were then able to deliver the flap into the neck. The flap was then insetinto the defect and secured in place with 3-0 Vicryl sutures for the subcutaneous as well as deep layers followed by 4-0 chromic running suture for the skin around the flap as well as the neck incision. The neck was closed over a 15 [place] Edgard drain. The chest incisions were then closed after again significant undermining and adjacent tissue transfer of the 9 x 9 cm defect using 3-0 and 2-0 Vicryl suture for the deep layers and brandt for the skin. 219 [place] Edgard drains were placed in the chest. Patient was then turned back to anesthesia for extubation with no complications with all needle sponge and instrument counts accurate at the end the case. Attestation: Case Date: 02/20/2020 - 02/21/2020 I was present and I participated during the entire procedure (does not need to include opening and closing). OSMAN BARNETT MD 02/21/2020 Op Note - Neo Gilman MD - 02/20/2020 1:39 PM EST [facility] [place] Operative Note Patient Name: Ward Santamaria : [id number] MR#: [id number] Case Date: 02/20/2020 Surgeon: Surgeon(s) and Role: Panel 1: * Osman Barnett MD - Primary * Urbano Beck PA - Physician Manager Critical Care * Manuel Ruggiero MD - Resident * Aracely Ewing MD - Resident Panel 2: * Neo Gilman MD - Primary * Manuel Ruggiero MD - Resident Preoperative diagnosis: parotid mass Postoperative diagnosis: parotid mass Procedure(s) (LRB): EXCISION OF PAROTID TUMOR OR PAROTID GLAND, TOTAL, WITH DISSECTION AND PRESERVATION OF FACIAL NERVE (WRVU 19.53) (Left) EXC MALIGNANT LESION, >4.0CM, EARS (WRVU 6.26) (Left) EXC MALIGNANT LESION, 3.1 TO 4.0CM, FACE (WRVU 4.34) (Left) @CERVICAL LYMPHADENECTOMY (MODIFIED RADICAL NECK DISSECTION) (WRVU 23.95) (Left) FLAP, MYOCUTANEOUS OR FASCIOCUTANEOUS, TRUNK (WRVU 19.86) (Left) FACIAL NERVE MONITORING, SETUP PERIPHERAL (WRVU 0.54) (N/A) @RESECTION TEMPORAL BONE, EXTERNAL APPROACH (WRVU 37.42) (Left) Anesthesia: General Estimated Blood Loss: 100 mL Specimens removed during surgery: None Drains: * No LDAs found * Surgical Closure: Primary Closure - skin incision is closed but with open spaces for wires, gabriele, drains or other devices Disposition: awakened from anesthesia, extubated and taken to the recovery room in a stable condition, having suffered no apparent untoward event. 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 Procedure Description: This was a combined case. See Dr. Barnett's separate dictation for the associated parotidectomy, left neck dissection and subsequent reconstruction. The patient was taken to the main operating room and laid supine on the operating room table. Properinformed consent was ensured, and the patient was positively identified. Once general anesthesia wasestablished, the table was rotated 180 degrees. The patient was positioned supine on the table with the head turned to the right to expose the left ear. A shave and prep of the left ear, scalp, face, neck and chest was then performed. A skin marker was used to design planned incisions. A large elliptical incision was designed to encompass the mass and the lower pinna, which then linked up with the neck incision inferiorly. A vertical postauricular extension was included in the design. A modified Esau incision was designed with extension into the neck along a prominent cervical crease for the associated parotidectomy and selectiveneck dissection. Local anesthesia and a field block were achieved using approximately 10 cc of solution containing 1%lidocaine with 1 to 100,000 units epinephrine. The patient's left ear and scalp, left face, left neck, left chest were then prepped and draped in sterile fashion. A formal surgical timeout was performed with all in attendance ensuring proper site, side, patient and procedure. All were in agreement. Monitoring electrodes were then placed in the left orbicularis oculi and left orbicularis marin muscles. Ground and stimulating electrodes were then positioned in the patient???s right chest. All electrodes were then connected to the nerve monitor. A tap test was performed to confirm correct functioning. A postauricular incision was then made which utilized the postauricular vertical extension. Dissection proceeded down to the level of the deep temporalis fascia. The auricle and mass was retracted anteriorly. The mastoid cortex including the mastoid tip were widely exposed. The posterior bony lateral rim of the external auditory canal and posterior aspect of the zygomatic root were similarly exposed.Some of the the periosteal fibers of the sternocleidomastoid muscle attaching to the mastoid tip were released. The operating microscope was brought into the field and used for the remainder of the case for illumination and magnification. Standard mastoidectomy was performed using a combination of cutting and ramos burs.. The mastoid was well pneumatized. The tegmen was skeletonized. The sigmoid sinus was skeletonized, and dissection proceeded to identify the digastric ridge. The posterior bony canal wall was thinned. Work proceeded into the posterior aspect of the zygomatic root as the antrum was exposed. The horizontal canal and incus were identified. A facial recess approach was undertaken. The round window and incostapedial articulation were identified. Dissection proceeded to expose the epitympanum. The incudostapedial joint was disarticulated and the incus was removed. The tympanic segment of the facial nerve was identified, and stimulated normally with the Prass probe at 0.4 mA. Landmarks were utilized to then skeletonizethe vertical segment of the facial nerve from the second genu to the stylomastoid foramen. The mastoid tip was removed lateral to the digastric muscle. Work proceeded through the zygomatic root to expose the epitympanum superior to the bony canal and inferior to the tegmen. Work proceeded anteriorly, medial to the annulus and lateral to the malleus. Working inferior to the tegmen and superior to the bony canal, work proceeded to complete the bony cuts superiorly to expose the soft tissues of the glenoid fossa. Work then proceeded as an extended facial recess approach was performed and the chorda tympani nerve intentionally sacrificed. The hypotympanic air cells were exposed. Work within the extended facial recess continued as the inferior bony canal was released from its bony connections inferiorly to connect with the hypotympanic air cells inferiorly. Dissection proceeded anteriorly as the inferior aspect of the glenoid fossa soft tissue was further exposed. The tensor tympani was then sectioned. With all bony cuts completed, the anterior bony attachments were down fractured The external audit ory canal and associated meatus, along with the tissue of the inferior pinna were included in this en bloc specimen, along with the tympanic membrane and malleus. The wound was then copiously irrigated with normal saline. A portion of the temporalis muscle was harvested and used to plug the eustachian tube orifice. The stapes was again identified and found to beintact and normally mobile. At case conclusion, a reassuring response at 0.4 mA was achieved using the stimulating probe at the proximal tympanic segment of the facial nerve. Large pieces of Gelfoam were placed within the middle ear cavity. Care was then transferred to Dr. Barnett for completion of his portion of the case. See associatedseparate dictation for this portion of the procedures. Infection Bundle used? No Attestation: Case Date: 02/20/2020 I was present and I participated during the entire procedure (does not need to include opening and closing). Neo Gilman MD 02/20/2020 documented in this encounter Plan of Treatment Upcoming Encounters Date Type Specialty Care Team Description 10/21/2021 Infusion Hematology and Oncology 11/09/2021 Office Visit Hematology and Oncology Alhaji Ritchie MD [facility] DR ONCOLOGY DEPT. [place], [place] [address] (Jin carson) 11/09/2021 Infusion Hematology and Oncology 12/10/2021 Office Visit Dermatology Silas Walters MD [address] [place] [address] DERMATOLOGY [place], [place] [address] (Jin carson) 09/19/2039 Hospital Encounter Surgery Osman Barnett MD [facility] OTOLARYNGOLOGY D EPT. [place], [place] [address] (Jin carson) Scheduled Procedures Name [...] encounter Procedures Procedure Name Priority Date/Time Associated Comments Diagnosis HEMOGRAM Routine 02/23/2020 4:29 Results for this AM EST procedure are i n the results section. DIFFERENTIAL, AUTOMATED Routine 02/23/2020 4:29 R esults for this AM EST procedure are i n the results section. HC CBC,PLT & AUTO DIFF Routine 02/23/2020 4:29 AM EST HC PHOSPHORUS, SERUM Routine 02/23/2020 4:29 Resu lts for this AM EST procedure are i n the results section. HC MAGNESIUM, SERUM Routine 02/23/2020 4:29 Resul ts for this AM EST procedure are i n the results section. HC VENIPUNCTURE Routine 02/23/2020 4:29 Results f or this AM EST procedure are i n the results section. BLOOD GAS 2 ARTERIAL Routine 02/21/2020 11:55 Res ults for this AM EST procedure are i n the results section. EKG 12-LEAD Routine 02/21/2020 7:39 Prolonged Q-T Results for this AM EST interval on ECG procedure ar e in the results section. SCAN, PERIPHERAL BLOOD Routine 02/21/2020 4:00 Re sults for this AM EST procedure are i n the results section. HEMOGRAM Routine 02/21/2020 4:00 Results for this AM EST procedure are i n the results section. DIFFERENTIAL, AUTOMATED Routine 02/21/2020 4:00 R esults for this AM EST procedure are i n the results section. HC CBC,PLT & AUTO DIFF Routine 02/21/2020 4:00 AM EST HC PHOSPHORUS, SERUM Routine 02/21/2020 4:00 Resu lts for this AM EST procedure are i n the results section. HC MAGNESIUM, SERUM Routine 02/21/2020 4:00 Resul ts for this AM EST procedure are i n the results section. BLOOD GAS ARTERIAL Routine 02/21/2020 4:00 Result s for this ([facility]) AM EST procedure are i n the results section. BASIC METABOLIC PANEL Routine 02/21/2020 4:00 Res ults for this (NON-FASTING) AM EST procedure are in the results section. POCT GLUCOSE Routine 02/21/2020 1:21 Results for this AM EST procedure are i n the results section. BLOOD GAS 2 ARTERIAL Routine 02/20/2020 11:48 Res ults for this PM EST procedure are i n the results section. HC BLOOD CULTURE- STAT 02/20/2020 10:45 Result s for this PM EST procedure are i n the results section. HC BLOOD CULTURE- STAT 02/20/2020 10:40 Result s for this PM EST procedure are i n the results section. BLOOD GAS 2 ARTERIAL Routine 02/20/2020 9:36 Resu lts for this PM EST procedure are i n the results section. URINALYSIS MICROSCOPIC STAT 02/20/2020 9:26 Re sults for this EXAM PM EST procedure are i n the results section. HC HEMOGRAM STAT 02/20/2020 9:26 Results for this PM EST procedure are i n the results section. URINALYSIS WITH REFLEX STAT 02/20/2020 9:26 Re sults for this CULTURE PM EST procedure are i n the results section. COMPREHENSIVE METABOLIC STAT 02/20/2020 9:26 R esults for this PANEL (NON-FASTING) PM EST procedur e are in the results section. EKG 12-LEAD STAT 02/20/2020 8:54 Coronary artery Results f or this PM EST disease involving procedure are in circle heart, the results angina presence section. unspecified, unspecified vessel or lesion type BLOOD GAS 2 ARTERIAL Routine 02/20/2020 7:50 Resu lts for this PM EST procedure are i n the results section. POCT GLUCOSE Routine 02/20/2020 7:06 Results for this PM EST procedure are i n the results section. SPECIMEN TO PATHOLOGY Routine 02/20/2020 6:11 Res ults for this PM EST procedure are i n the results section. ADJAC TISSUE Routine 02/20/2020 6:02 Mass of left ear TRANSFER/REARRANGEMENT; PM EST Parotid mass EA ADD'L 30.0 SQ CM, OR PART OF ADJACENT TISSUE Routine 02/20/2020 6:02 Mass of left ear TRANSFER OR PM EST Parotid mass REARRANGEMENT; 30.1 TO 60.0 SQ CM, THORAX BLOOD GAS 2 ARTERIAL Routine 02/20/2020 6:01 Resu lts for this PM EST procedure are i n the results section. SPECIMEN TO PATHOLOGY Routine 02/20/2020 5:57 Res ults for this PM EST procedure are i n the results section. SPECIMEN TO PATHOLOGY Routine 02/20/2020 5:44 Res ults for this PM EST procedure are i n the results section. SPECIMEN TO PATHOLOGY Routine 02/20/2020 5:43 Res ults for this PM EST procedure are i n the results section. SPECIMEN TO PATHOLOGY Routine 02/20/2020 5:42 Res ults for this PM EST procedure are i n the results section. SPECIMEN TO PATHOLOGY Routine 02/20/2020 5:41 Res ults for this PM EST procedure are i n the results section. ABORH RECHECK STATUS STAT 02/20/2020 5:35 Resu lts for this PM EST procedure are i n the results section. ABO/RH TYPING STAT 02/20/2020 5:35 Results for this PM EST procedure are i n the results section. ANTIBODY SCREEN STAT 02/20/2020 5:35 Results f or this PM EST procedure are i n the results section. HC ANTIBODY STAT 02/20/2020 5:35 DETECTION,CAPTURE-R PM EST PREPARE RBC STAT 02/20/2020 5:30 Results for this PM EST procedure are i n the results section. BLOOD GAS 2 ARTERIAL Routine 02/20/2020 4:58 Resu lts for this PM EST procedure are i n the results section. SURGICAL PATHOLOGY Routine 02/20/2020 4:05 Result s for this REPORT PM EST procedure are i n the results section. SPECIMEN TO PATHOLOGY STAT 02/20/2020 4:05 Res ults for this PM EST procedure are i n the results section. SPECIMEN TO PATHOLOGY STAT 02/20/2020 4:05 Res ults for this PM EST procedure are i n the results section. BLOOD GAS 2 ARTERIAL Routine 02/20/2020 3:54 Resu lts for this PM EST procedure are i n the results section. POCT GLUCOSE Routine 02/20/2020 3:25 Results for this PM EST procedure are i n the results section. MICROSCOPE USE Routine 02/20/2020 2:31 Mass of left ear PM EST Parotid mass POCT GLUCOSE Routine 02/20/2020 2:16 Results for this PM EST procedure are i n the results section. POCT GLUCOSE Routine 02/20/2020 1:15 Results for this PM EST procedure are i n the results section. BLOOD GAS 2 ARTERIAL Routine 02/20/2020 12:07 Res ults for this PM EST procedure are i n the results section. BLOOD GAS 2 ARTERIAL Routine 02/20/2020 8:11 Resu lts for this AM EST procedure are i n the results section. ADJACENT TISSUE Yes 02/20/2020 7:32 Mass of left ear TRANSFER OR AM EST Parotid mass REARRANGEMENT; EA ADD'L 30.0 SQ CM, OR PART OF (WRVU 3.73) ADJACENT TISSUE Yes 02/20/2020 7:32 Mass of left ear TRANSFER OR AM EST Parotid mass REARRANGEMENT; 30.1 TO 60.0 SQ CM, THORAX (WRVU 12.65) MICROSCOPE USE (WRVU Yes 02/20/2020 7:32 Mass of lef t ear 3.46) AM EST Parotid mass @RESECTION TEMPORAL Yes 02/20/2020 7:32 Mass of left ear BONE, EXTERNAL APPROACH AM EST Parotid mass (WRVU 37.42) FACIAL NERVE Yes 02/20/2020 7:32 Mass of left ear MONITORING, SETUP AM EST Parotid mass PERIPHERAL (WRVU 0.54) FLAP, MYOCUTANEOUS OR Yes 02/20/2020 7:32 Mass of le ft ear FASCIOCUTANEOUS, TRUNK AM EST Parotid mass (WRVU 19.86) @CERVICAL Yes 02/20/2020 7:32 Mass of left ear LYMPHADENECTOMY AM EST Parotid mass (MODIFIED RADICAL NECK DISSECTION) (WRVU 23.95) EXC MALIGNANT LESION, Yes 02/20/2020 7:32 Mass of le ft ear 3.1 TO 4.0CM, FACE AM EST Parotid mass (WRVU 4.34) EXC MALIGNANT LESION, Yes 02/20/2020 7:32 Mass of le ft ear >4.0CM, EARS (WRVU AM EST Parotid mass 6.26) EXCISION OF PAROTID Yes 02/20/2020 7:32 Mass of left ear TUMOR OR PAROTID GLAND, AM EST Parotid mass TOTAL, WITH DISSECTION AND PRESERVATION OF FACIAL NERVE (WRVU 19.53) EXC PAROTID Routine 02/20/2020 5:55 Mass of left ear TUMOR/GLAND,TOTAL,W AM EST Parotid mass DISSEC+PRESERVATION FACIAL NERVE FACIAL NERVE Routine 02/20/2020 5:55 Mass of left ear MONITORING, SETUP AM EST Parotid mass RESECTION TEMPORAL Routine 02/20/2020 5:55 Mass of left ear BONE, EXTERNAL APPROACH AM EST Parotid mass CERVICAL Routine 02/20/2020 5:55 Mass of left ear LYMPHADENECTOMY AM EST Parotid mass (MODIFIED RADICAL NECK DISSECTION) FLAP, MYOCUTANEOUS OR Routine 02/20/2020 5:55 Mass of le ft ear FASCIOCUTANEOUS, TRUNK AM EST Parotid mass EXC MALIGNANT LESION, Routine 02/20/2020 5:55 Mass of le ft ear >4.0CM, EARS AM EST Parotid mass EXC MALIGNANT LESION, Routine 02/20/2020 5:55 Mass of le ft ear 3.1 TO 4.0CM, FACE AM EST Parotid mass LAB SCAN 02/20/2020 12:00 Results for this AM EST procedure are i n the results section. documented in this encounter Results (ABNORMAL) Differential, Automated (02/23/2020 4:29 AM EST) [facility] gist Method Time Signature Neutrophils % 68.4 % [facility] Neutr Abs (ANC) 7.00 (H) 1.70 - [facility] 6.10 [facility] x10(3)/[facility] LABORATORY Lymphocytes % 13.4 % [facility] Lymphocytes Abs 1.4 0.9 - 3.2 [facility] x10(3)/[facility] LABORATORY Monocytes % 12.3 % [facility] Monocyte Abs 1.3 (H) 0.3 - 0.9 [facility] x10(3)/[facility] LABORATORY Eosinophils % 3.8 % [facility] Eosinophils Abs 0.4 0.0 - 0.4 [facility] x10(3)/[facility] LABORATORY Basophils % 0.6 % [facility] Basophils Abs 0.1 0.0 - 0.1 [facility] x10(3)/[facility] LABORATORY Immature Gran % 1.50 % [facility] Comment: Immature granulocytes(IG's)percentage an d absolute count will include metamyelocytes, myelocytes, and promyelo cytes. Blood smears from CBCs yielding IG's will be scanned manually for concor dance. If this scan disagrees with the automated IG or if promyelocytes are not ed, a manual differential will be performed. Katelynn Gran Abs 0.15 (H) 0.00 - 0.04 x10(3)/[facility] LABORATORY Specimen Anatomical Collection Method Collection Time Receive d Time (Source) Location / / Volume Laterality Blood specimen 02/23/2020 4:29 AM 020 4:42 (specimen) EST AM EST Resulting Agency Comment Spec In Lab Enma Ragland MD HEMATOLOGY ORDERABLES Performing Organization Address City/State/[place] [address] (ABNORMAL) Hemogram (02/23/2020 4:29 AM EST) Analysis Performed At Patho logist Time Signature WBC 10.2 (H) 4.0 - 9.5 [facility] x10(3)/[facility] LABORATORY RBC 3.63 (L) 4.58 - [facility] 5.54 [facility] x10(6)/[facility] LABORATORY Hemoglobin 11.0 (L) 13.7 - [facility] 16.5 gm/dL [facility] Hematocrit 32.5 (L) 40.5 - [facility] 48.5 % [facility] MCV 89.5 82.9 - [facility] 93.1 [facility] LABORATORY MCH 30.3 27.5 - [facility] 32.1 pg [facility] MCHC 33.8 32.0 - [facility] 35.7 gm/dL [facility] Platelets 181 145 - 357 [facility] x10(3)/[facility] LABORATORY RDWSD 41.1 36.0 - [facility] 45.0 [facility] LABORATORY RDWCV 12.4 11.4 - [facility] 13.8 % [facility] LABORATORY MPV 8.9 7.6 - 12.9 [facility] LABORATORY nRBC % Auto 0.0 % [facility] nRBC Abs Auto 0.000 0.000 - [facility] 0.000 [facility] x10(3)/[facility] LABORATORY Specimen Anatomical Collection Method Collection Time Receive d Time (Source) Location / / Volume Laterality Blood specimen 02/23/2020 4:29 AM 020 4:42 (specimen) EST AM EST Resulting Agency Comment Spec In Lab Enma Ragland MD HEMATOLOGY ORDERABLES Performing Organization Address [facility] Phon e Number [address] Magnesium (02/23/2020 4:29 AM EST) P athologist Signature Magnesium 0.82 0.69 - 1.07 [facility] mmol/L [facility] Specimen Anatomical Collection Method Collection Time Receive d Time (Source) Location / / Volume Laterality Blood specimen 02/23/2020 4:29 AM 4:42 (specimen) EST AM EST Resulting Agency Comment Spec In Lab Osman Barnett MD CHEMISTRY ORDERABLES Performing Organization Address [facility] Phon e Number [address] (ABNORMAL) Phosphorus (02/23/2020 4:29 AM EST) athologist Signature Phosphorus 2.2 (L) 2.5 - 4.5 [facility] mg/dL [facility] Specimen Anatomical Collection Method Collection Time Receive d Time (Source) Location / / Volume Laterality Blood specimen 02/23/2020 4:29 AM 4:42 (specimen) EST AM EST Resulting Agency Comment Spec In Lab Osman Barnett MD CHEMISTRY ORDERABLES Performing Organization Address City/[facility] [place] [address] (ABNORMAL) Basic Metabolic Panel (non-fasting) (02/23/2020 4:29 AM EST) P athologist Signature Glucose Lvl 122 65 - 199 [facility] mg/dL [facility] Comment: Diabetes: >=200 mg/dL plus symp toms BUN 15 10 - 20 mg/dL [facility] Creatinine 0.65 (L) 0.80 - 1.50 mg/dL [facility] LAB[facility] Sodium 135 135 - 145 mmol/L [facility] Potassium 3.8 3.5 - 5.0 mmol/L [facility] Comment: Please note: ??Patients with WBC >100,00 0 may have falsely elevated Potassium levels. ??For accurate Potassium quantif ication in these patients send serum separator tube (gold top) for subsequent determinations. ??Contact the Clinical Chemistry Laboratory if there are any qu estions. Chloride 102 98 - 107 mmol/L [facility] CO2 24 22 - 31 mmol/L [facility] Anion Gap 9 5 - 15 mmol/L [facility] Calcium 8.7 8.5 - 10.5 mg/dL [facility] Estimated GFR 100 >=60 mL/min/1.73 m?? [facility] Comment: This patient? s estimated glomerular filtration rate (eGFR) is between 100 mL/min/1.73 m2 (patients with less muscl e mass per kg body weight) and 116 mL/min/1.73 m2 (patients with more muscl e mass per kg body weight) as determined by the CKD-EPI equation. Asse ssment of eGFR is not appropriate when creatinine concentrations are rapidly ch anging. For clinical decisions where creatinine clearance will affect therapy , a 24-hour urine creatinine clearance may be advised. Assignment of CKD stage 1 ? 5 for patients with an eGFR near the transition point between stages may be based on cli nical assessment of muscle mass and symptoms in addition to eGFR. Specimen Anatomical Collection Method Collection Time Receive d Time (Source) Location / / Volume Laterality Blood specimen 02/23/2020 4:29 AM 020 4:42 (specimen) EST AM EST Resulting Agency Comment Spec In Lab Osman Barnett MD CHEMISTRY ORDERABLES Performing Organization Address City/State/[place] [address] (ABNORMAL) BLOOD GAS 2 ARTERIAL (02/21/2020 11:55 AM EST) Analysis Performed At Patho logist Time Signature pH Art 7.44 7.35 - [facility] 7.45 [facility] pCO2 Art 40 35 - 45 [facility] LABORATORY pO2 Art 72 (L) 85 - 104 [facility] LABORATORY HCO3 Art 26.4 (H) 20.0 - [facility] 26.0 [facility] mmol/[facility] BE Art 2.3 -3.0 - 3.0 [facility] mmol/L [facility] Hgb Blood Gas 11.2 (L) 13.7 - [facility] 16.5 gm/dL [facility] O2HB Art 94.3 94.0 - [facility] 97.0 % [facility] COHB Art 0.6 % [facility] Comment: Nonsmokers: 0.5-1.5% COHB Smokers: Variable, but usually less than 10% Toxic: 20-30% COHB Lethal: Greater than 60% COHB METHB Art 0.3 <=1.5 % [facility] Na Whole Blood 133 (L) 135 - 145 mmol/L [facility] K Whole Blood 3.6 3.5 - 5.0 mmol/L [facility] Comment: Please note: Patients with WBC >100,000 may have falsely elevated Potassium levels. Contact the Clinical Chemistry L aboratory if there are any questions. ICa Whole Blood 1.09 (L) 1.15 - 1.33 mmol/L [facility] Comment: Note: ??Total bilirubin higher than 20 m g/dL may lead to falsely low ionized calcium. CL Whole Blood 101 98 - 107 mmol/L [facility] Gluc Whole Bld 176 65 - 199 mg/dL [facility] Comment: Diabetes: >=200 mg/dL plus symp toms. Lactate WB 1.9 0.5 - 2.2 mmol/L [facility] Flow Art 2.0 LPM [facility] Specimen Anatomical Collection Method Collection Time Receive d Time (Source) Location / / Volume Laterality Blood specimen 02/21/2020 11:55 0 (specimen) AM EST 11:55 AM EST Osman Barnett MD CHEMISTRY ORDERABLES Performing Organization Address City/State/[place] [address] EKG 12 Lead (02/21/2020 7:39 AM EST) Component Value Ref Range Test Analysis Performed Pathologis t Method Time At Signature Ventricular rate 73 BPM MUSE SYSTEM Atrial Rate 73 BPM MUSE SYSTEM P-R Interval 162 ms MUSE SYSTEM QRS Duration 94 ms MUSE SYSTEM Q-T Interval 366 ms MUSE SYSTEM QTC Calculated 403 ms MUSE SYSTEM (Bezet) Calculated P Joffre 55 degrees MUSE SYSTEM Calculated R Joffre 2 degrees MUSE SYSTEM Calculated T Joffre 51 degrees MUSE SYSTEM INTERPRETATION Normal sinus rhythm MUSE SYSTEM Minimal voltage criteria for LVH, may be normal variant ( R in aVL ) Borderline ECG When compared with ECG of 20-FEB-2020 20:54, Nonspecific T wave abnormality no longer evident in Anterior leads QT has shortened Confirmed by MD MICHAEL, THALIA ([id number]) on 02/21/2020 2:57:49 PM Specimen Anatomical Collection Method Collection Time Receive d Time (Source) Location / / Volume Laterality 02/21/2020 7:39 AM 0 2:57 EST PM EST Osman Barnett MD ECG ORDERABLES Performing Organization Address City/State/ZIP Code Phon e Number MUSE SYSTEM (ABNORMAL) Blood Gas Arterial (02/21/2020 4:00 AM EST) P athologist Signature pH Art 7.44 7.35 - 7.45 [facility] Comment: Sample contains one or more air bubbles which may result in falsely elevated pO2, decreased pCO2 and increased pH. pCO2 Art 29 (L) 35 - 45 mmHg [facility] Comment: Sample contains one or more air bubbles which may result in falsely elevated pO2, decreased pCO2 and increased pH. pO2 Art 106 (H) 85 - 104 mmHg [facility] Comment: Sample contains one or more air bubbles which may result in falsely elevated pO2, decreased pCO2 and increased pH. HCO3 Art 19.5 (L) 20.0 - 26.0 mmol/L [facility] BE Art -4.6 (L) -3.0 - 3.0 mmol/L [facility] Hgb Blood Gas 9.4 (L) 13.7 - 16.5 gm/dL [facility] O2HB Art 97.0 94.0 - 97.0 % [facility] COHB Art 0.4 % [facility] Comment: Nonsmokers: ??0.5-1.5% COHB Smokers: ??Variable, but usually less th an 10% Toxic: 20 - 30% COHB Lethal: ??Greater than 60% COHB METHB Art 0.3 <=1.5 % [facility] Na Whole Blood 138 135 - 145 mmol/L [facility] K Whole Blood 2.8 (Critical) 3.5 - 5.0 mmol/L [facility] Comment: Please note: ??Patients with WBC >100,00 0 may have falsely elevated Potassium levels. ??Contact the Clinical Chemistry Laboratory if there are any questions. Called by: qiana, Read back by: Esperanza mcnair, Date/Time:02/21/20 04:41. ICa Whole Blood 0.93 (L) 1.15 - 1.33 mmol/L [facility] Comment: Note: ??Total bilirubin higher than 20 m g/dL may lead to falsely low ionized calcium. CL Whole Blood 113 (H) 98 - 107 mmol/L [facility] Gluc Whole Bld 128 65 - 199 mg/dL [facility] Comment: Diabetes: >=200 mg/dL plus symp toms. Lactate WB 2.2 0.5 - 2.2 mmol/L [facility] Specimen Anatomical Collection Method Collection Time Receive d Time (Source) Location / / Volume Laterality Blood specimen Arterial Draw / 02/21/2020 4:00 AM 05/2019 4:34 (specimen) Unknown EST AM EST Catalina Barrientos MD CHEMISTRY ORDERABLES Performing Organization Address City/State/[place] [address] Scan, Peripheral Blood (02/21/2020 4:00 AM EST) [facility] Method Time Signature Plat Estimate Normal [facility] RBC Morphology Abnormal [facility] Stippled RBCs Present >1/HPF [facility] Giant Less than 1 /HPF [facility] LABORATORY Specimen Anatomical Collection Method Collection Time Receive d Time (Source) Location / / Volume Laterality Blood specimen 02/21/2020 4:00 AM 020 4:33 (specimen) EST AM EST Resulting Agency Comment Spec In Lab Manuel Ruggiero MD HEMATOLOGY ORDERABLES Performing Organization Address City/State/[place] [address] (ABNORMAL) Differential, Automated (02/21/2020 4:00 AM EST) [facility] gist Method Time Signature Neutrophils % 76.9 % [facility] Neutr Abs (ANC) 11.00 (H) 1.70 - [facility] 6.10 [facility] x10(3)/[facility] LABORATORY Lymphocytes % 8.8 % [facility] Lymphocytes Abs 1.3 0.9 - 3.2 [facility] x10(3)/[facility] LABORATORY Monocytes % 13.4 % [facility] Monocyte Abs 1.9 (H) 0.3 - 0.9 [facility] x10(3)/[facility] LABORATORY Eosinophils % 0.0 % [facility] Eosinophils Abs 0.0 0.0 - 0.4 [facility] x10(3)[facility] LABORATORY Basophils % 0.2 % [facility] Basophils Abs 0.0 0.0 - 0.1 [facility] x10(3)/[facility] LABORATORY Immature Gran % 0.70 % [facility] Comment: Immature granulocytes(IG's)percentage an d absolute count will include metamyelocytes, myelocytes, and promyelo cytes. Blood smears from CBCs yielding IG's will be scanned manually for concor dance. If this scan disagrees with the automated IG or if promyelocytes are not ed, a manual differential will be performed. Katelynn Gran Abs 0.10 (H) 0.00 - 0.04 x10(3)/[facility] LABORATORY Specimen Anatomical Collection Method Collection Time Receive d Time (Source) Location / / Volume Laterality Blood specimen 02/21/2020 4:00 AM 020 4:33 (specimen) EST AM EST Resulting Agency Comment Spec In Lab Manuel Ruggiero MD HEMATOLOGY ORDERABLES Performing Organization Address City/State/[place] [address] (ABNORMAL) Hemogram (02/21/2020 4:00 AM EST) Analysis Performed At Patho logist Time Signature WBC 14.3 (H) 4.0 - 9.5 [facility](3[facility] LABORATORY RBC 3.33 (L) 4.58 - [facility] 5.54 [facility] x10(6)/[facility] LABORATORY Hemoglobin 10.3 (L) 13.7 - [facility] 16.5 gm/dL [facility] Hematocrit 29.2 (L) 40.5 - [facility] 48.5 % [facility] MCV 87.7 82.9 - [facility] 93.1 [facility] LABORATORY MCH 30.9 27.5 - [facility] 32.1 pg [facility] MCHC 35.3 32.0 - [facility] 35.[facility] gm/dL [facility] Platelets 184 145 - 357 [facility] x10(3)/[facility] LABORATORY RDWSD 39.4 36.0 - [facility] 45.0 [facility] LABORATORY RDWCV 12.2 11.4 - [facility] 13.8 % [facility]ATORY MPV 8.9 7.6 - 12.9 [facility] LABORATORY nRBC % Auto 0.0 % [facility] nRBC Abs Auto 0.000 0.000 - [facility] [place] 0.000 [facility] x10(3)/[facility] LABORATORY Specimen Anatomical Collection Method Collection Time Receive d Time (Source) Location / / Volume Laterality Blood specimen 02/21/2020 4:00 AM 020 4:33 (specimen) EST AM EST Resulting Agency Comment Spec In Lab Manuel Ruggiero MD HEMATOLOGY ORDERABLES Performing Organization Address City/State/[place] [address] Magnesium (02/21/2020 4:00 AM EST) athologist Signature Magnesium 0.70 0.69 - 1.07 [facility] mmol/L [facility] Specimen Anatomical Collection Method Collection Time Receive d Time (Source) Location / / Volume Laterality Blood specimen 02/21/2020 4:00 AM 020 4:33 (specimen) EST AM EST Resulting Agency Comment Spec In Lab Osman Barnett MD CHEMISTRY ORDERABLES Performing Organization Address City/State/ZIP Code Phon e Number [address] Phosphorus (02/21/2020 4:00 AM EST) athologist Signature Phosphorus 2.6 2.5 - 4.5 [facility] mg/dL [facility] Specimen Anatomical Collection Method Collection Time Receive d Time (Source) Location / / Volume Laterality Blood specimen 02/21/2020 4:00 AM 4:33 (specimen) EST AM EST Resulting Agency Comment Spec In Lab Osman Barnett MD CHEMISTRY ORDERABLES Performing Organization Address City/State/ZIP Code Phon e Number [address] (ABNORMAL) Basic Metabolic Panel (non-fasting) (02/21/2020 4:00 AM EST) athologist Signature Glucose Lvl 161 65 - 199 [facility] mg/dL [facility] Comment: Diabetes: >=200 mg/dL plus symp toms BUN 13 10 - 20 mg/dL [facility] Creatinine 0.76 (L) 0.80 - 1.50 mg/dL [facility] Sodium 139 135 - 145 mmol/L [facility] Potassium 3.9 3.5 - 5.0 mmol/L [facility] Comment: Please note: ??Patients with WBC >100,00 0 may have falsely elevated Potassium levels. ??For accurate Potassium quantif ication in these patients send serum separator tube (gold top) for subsequent determinations. ??Contact the Clinical Chemistry Laboratory if there are any qu estions. Chloride 103 98 - 107 mmol/L [facility] CO2 26 22 - 31 mmol/L [facility] Anion Gap 10 5 - 15 mmol/L [facility] Calcium 8.5 8.5 - 10.5 mg/dL [facility] Estimated GFR 94 >=60 mL/min/1.73 m?? [facility] Comment: This patient? s estimated glomerular filtration rate (eGFR) is between 94 mL/min/1.73 m2 (patients with less muscl e mass per kg body weight) and 109 mL/min/1.73 m2 (patients with more muscl e mass per kg body weight) as determined by the CKD-EPI equation. Asse ssment of eGFR is not appropriate when creatinine concentrations are rapidly ch anging. For clinical decisions where creatinine clearance will affect therapy , a 24-hour urine creatinine clearance may be advised. Assignment of CKD stage 1 ? 5 for patients with an eGFR near the transition point between stages may be based on cli nical assessment of muscle mass and symptoms in addition to eGFR. Specimen Anatomical Collection Method Collection Time Receive d Time (Source) Location / / Volume Laterality Blood specimen 02/21/2020 4:00 AM 020 4:33 (specimen) EST AM EST Resulting Agency Comment Spec In Lab Osman Barnett MD CHEMISTRY ORDERABLES Performing Organization Address City/State/[place] [address] POCT Glucose (02/21/2020 1:21 AM EST) P athologist Signature POC Glucose 175 65 - 199 [facility] mg/dL [facility] Comment: Supplemental ranges: <140 mg/dL before meals <180 mg/dL all other times of the day Specimen Anatomical Collection Method Collection Time Receive d Time (Source) Location / / Volume Laterality Blood specimen 02/21/2020 1:21 AM 020 1:21 (specimen) EST AM EST Osman Barnett MD POINT OF CARE TEST ORDERABLE S Performing Organization Address City/State/[place] [address] (ABNORMAL) BLOOD GAS 2 ARTERIAL (02/20/2020 11:48 PM EST) Analysis Performed At Patho logist Time Signature pH Art 7.43 7.35 - [facility] 7.45 [facility] pCO2 Art 34 (L) 35 - 45 [facility] mmHg [facility] pO2 Art 76 (L) 85 - 104 [facility] mmHg [facility] HCO3 Art 21.6 20.0 - [facility] 26.0 [facility] mmol/L [facility] LABOR[facility]ORY BE Art -2.8 -3.0 - 3.0 [facility] mmol/L [facility] Hgb Blood Gas 11.7 (L) 13.7 - [facility] 16.5 gm/dL [facility] O2HB Art 94.1 94.0 - [facility] 97.0 % [facility] COHB Art 1.1 % [facility] Comment: Nonsmokers: 0.5-1.5% COHB Smokers: Variable, but usually less than 10% Toxic: 20-30% COHB Lethal: Greater than 60% COHB METHB Art 0.3 <=1.5 % [facility] Na Whole Blood 137 135 - 145 mmol/L [facility] K Whole Blood 3.8 3.5 - 5.0 mmol/L [facility] Comment: Please note: Patients with WBC >100,000 may have falsely elevated Potassium levels. Contact the Clinical Chemistry L aboratory if there are any questions. ICa Whole Blood 1.15 1.15 - 1.33 mmol/L [facility] Comment: Note: ??Total bilirubin higher than 20 m g/dL may lead to falsely low ionized calcium. CL Whole Blood 105 98 - 107 mmol/L [facility] Gluc Whole Bld 190 65 - 199 mg/dL [facility] Comment: Diabetes: >=200 mg/dL plus symp toms. Lactate WB 2.6 (H) 0.5 - 2.2 mmol/L [facility] Specimen Anatomical Collection Method Collection Time Receive d Time (Source) Location / / Volume Laterality Blood specimen 02/20/2020 11:48 0 (specimen) PM EST 11:48 PM EST Osman Barnett MD CHEMISTRY ORDERABLES Performing Organization Address City/[facility]/[place] [address] Blood culture (02/20/2020 10:45 PM EST) [facility] gist Method Time Signature Blood Culture No growth IMAN MOREJON at 5 days. [facility] Specimen Anatomical Collection Method Collection Time Receive d Time (Source) Location / / Volume Laterality Blood specimen 02/20/2020 10:45 0 (specimen) PM EST 11:13 PM EST Comment: L FA Resulting Agency Comment Spec In Lab Osman Barnett MD MICROBIOLOGY - BLOOD ORDERAB LES Performing Organization Address City/[facility]/[place] [address] Blood culture (02/20/2020 10:40 PM EST) [facility] gist Method Time Signature Blood Culture No growth IMAN MOREJON at 5 days. [facility] Specimen Anatomical Collection Method Collection Time Receive d Time (Source) Location / / Volume Laterality Blood specimen STRUCTURE OF LEFT 02/20/2020 10:40 12/0 04/2019 (specimen) [facility] / PM EST 11:10 PM EST Unknown Resulting Agency Comment Spec In Lab Osman Barnett MD MICROBIOLOGY - BLOOD ORDERAB LES Performing Organization Address City/[facility]/[place] [address] (ABNORMAL) BLOOD GAS 2 ARTERIAL (02/20/2020 9:36 PM EST) Analysis Performed At Patho logist Time Signature pH Art 7.35 7.35 - [facility] 7.45 [facility] pCO2 Art 35 35 - 45 [facility] mmHg [facility] pO2 Art 69 (L) 85 - 104 [facility] mmHg [facility] HCO3 Art 18.9 (L) 20.0 - [facility] 26.0 [facility] mmol/L [facility] LABORATORY BE Art -6.8 (L) -3.0 - 3.0 [facility] mmol/L [facility] Hgb Blood Gas 10.5 (L) 13.7 - [facility] 16.5 gm/dL [facility] O2HB Art 92.4 (L) 94.0 - [facility] 97.0 % [facility] COHB Art 0.4 % [facility] Comment: Nonsmokers: 0.5-1.5% COHB Smokers: Variable, but usually less than 10% Toxic: 20-30% COHB Lethal: Greater than 60% COHB METHB Art 0.3 <=1.5 % [facility] Na Whole Blood 140 135 - 145 mmol/L [facility] K Whole Blood 3.9 3.5 - 5.0 mmol/L [facility] Comment: Please note: Patients with WBC >100,000 may have falsely elevated Potassium levels. Contact the Clinical Chemistry L aboratory if there are any questions. ICa Whole Blood 1.09 (L) 1.15 - 1.33 mmol/L [facility] Comment: Note: ??Total bilirubin higher than 20 m g/dL may lead to falsely low ionized calcium. CL Whole Blood 112 (H) 98 - 107 mmol/L [facility] Gluc Whole Bld 135 65 - 199 mg/dL [facility] Comment: Diabetes: >=200 mg/dL plus symp toms. Lactate WB 3.1 (H) 0.5 - 2.2 mmol/L [facility]OR[facility] Flow Art 6.0 LPM [facility]ORY Specimen Anatomical Collection Method Collection Time Receive d Time (Source) Location / / Volume Laterality Blood specimen 02/20/2020 9:36 PM 020 9:36 (specimen) EST PM EST Osman Barnett MD CHEMISTRY ORDERABLES Performing Organization Address City/State/[place] [address] (ABNORMAL) Urinalysis Microscopic Exam (02/20/2020 9:26 PM EST) athologist Signature RBC UA 8 (H) 0 - 3 /HPF [facility] WBC UA 1 0 - 3 /HPF [facility] Specimen (Source) Anatomical Collection Method Collection Time Re ceived Time Location / / Volume Laterality Urine specimen 02/20/2020 9:26 02/20/2020 9:34 obtained by clean PM EST PM EST catch procedure (specimen) Resulting Agency Comment Spec In Lab Catalina Barrientos MD URINE ORDERABLES Performing Organization Address City/State/[place] [address] (ABNORMAL) Urinalysis with reflex Culture (02/20/2020 9:26 PM EST) [facility] Method Time Signature Glucose UA 250 (A) Negative [facility] mg/dL [facility] Protein UA Negative Negative [facility] mg/dL [facility] Bilirubin UA Negative Negative [facility] mg/dL [facility] Comment: Clinical correlation required for positi ve Urine Bilirubin results as false positive may occur with some drugs and d rug related products. If a false positive is suspected a serum total bili holden should be considered if clinically indicated. Urobilinogen UA Normal Normal mg/dL [facility] pH UA 7.5 5.0 - 8.0 [facility] Blood UA Small (A) Negative mg/dL [facility] Ketones UA Negative Negative mg/dL [facility] Nitrite UA Negative Negative [facility]ORY Leukocytes UA Negative Negative [facility] LABORATORY Appearance UA Clear Clear [facility] Spec Conger UA 1.012 1.006 - 1.030 [facility] Color UA Yellow Yellow [facility]ORY Culture Reflexed No [facility]ORY Specimen (Source) Anatomical Collection Method Collection Time Re ceived Time Location / / Volume Laterality Urine specimen 02/20/2020 9:26 02/20/2020 9:34 obtained by clean PM EST PM EST catch procedure (specimen) Resulting Agency Comment Spec In Lab Osman Barnett MD URINE ORDERABLES Performing Organization Address City/[facility]/[place] [address] (ABNORMAL) Hemogram (02/20/2020 9:26 PM EST) Analysis Performed At Patho logist Time Signature WBC 15.3 (H) 4.0 - 9.5 [facility] x10(3)/[facility] LABORATORY RBC 3.80 (L) 4.58 - [facility] 5.54 [facility] x10(6)/[facility] LABORATORY Hemoglobin 11.4 (L) 13.7 - [facility] 16.5 gm/dL [facility]ORY Hematocrit 34.4 (L) 40.5 - [facility] 48.5 % [facility] MCV 90.5 82.9 - [facility] 93.1 [facility] LABORATORY MCH 30.0 27.5 - [facility] 32.1 pg [facility]ORY MCHC 33.1 32.0 - [facility] 35.7 gm/dL [facility] Platelets 209 145 - 357 [facility] x10(3)/[facility] LABORATORY RDWSD 41.1 36.0 - [facility] 45.0 [facility] LABORATORY RDWCV 12.5 11.4 - [facility] 13.8 % [facility] LABORATORY MPV 8.7 7.6 - 12.9 [facility] LABORATORY nRBC % Auto 0.0 % [facility]OR[facility]ORY nRBC Abs Auto 0.000 0.000 - [facility] 0.000 [facility] x10(3)/[facility] LABORATORY Specimen Anatomical Collection Method Collection Time Receive d Time (Source) Location / / Volume Laterality Blood specimen 02/20/2020 9:26 PM 020 9:34 (specimen) EST PM EST Resulting Agency Comment Spec In Lab Osman Barnett MD HEMATOLOGY ORDERABLES Performing Organization Address City/State/[place] [address] Comprehensive metabolic panel (non-fasting) (02/20/2020 9:26 PM EST) P athologist Signature Glucose Lvl 172 65 - 199 [facility] mg/dL [facility] Comment: Diabetes: >=200 mg/dL plus symp toms BUN 11 10 - 20 mg/dL [facility] Creatinine 0.90 0.80 - 1.50 mg/dL [facility] Sodium 143 135 - 145 mmol/L [facility] Potassium 4.9 3.5 - 5.0 mmol/L [facility] Comment: Please note: ??Patients with WBC >100,00 0 may have falsely elevated Potassium levels. ??For accurate Potassium quantif ication in these patients send serum separator tube (gold top) for subsequent determinations. ??Contact the Clinical Chemistry Laboratory if there are any qu estions. Chloride 105 98 - 107 mmol/L [facility] CO2 25 22 - 31 mmol/L [facility] Anion Gap 13 5 - 15 mmol/L [facility] Calcium 9.2 8.5 - 10.5 mg/dL [facility] Total Protein 6.1 6.1 - 8.0 gm/dL [facility] Albumin 4.2 3.2 - 5.2 gm/dL [facility] AST 17 0 - 39 unit/L [facility] ALT 12 0 - 55 unit/L [facility] Alk Phos 55 40 - 130 unit/L [facility] Total Bilirubin 0.7 0.2 - 1.3 mg/dL [facility] Estimated GFR 87 >=60 mL/min/1.73 m?? [facility] Comment: This patient? s estimated glomerular filtration rate (eGFR) is between 87 mL/min/1.73 m2 (patients with less muscl e mass per kg body weight) and 101 mL/min/1.73 m2 (patients with more muscl e mass per kg body weight) as determined by the CKD-EPI equation. Asse ssment of eGFR is not appropriate when creatinine concentrations are rapidly ch anging. For clinical decisions where creatinine clearance will affect therapy , a 24-hour urine creatinine clearance may be advised. Assignment of CKD stage 1 ? 5 for patients with an eGFR near the transition point between stages may be based on cli nical assessment of muscle mass and symptoms in addition to eGFR. Specimen Anatomical Collection Method Collection Time Receive d Time (Source) Location / / Volume Laterality Blood specimen 02/20/2020 9:26 PM 020 9:34 (specimen) EST PM EST Resulting Agency Comment Spec In Lab Osman Barnett MD CHEMISTRY ORDERABLES Performing Organization Address City/[facility]/[place] [address] EKG 12 Lead (02/20/2020 8:54 PM EST) Component Value Ref Range Test Analysis Performed Pathologis t Method Time At Signature Ventricular rate 90 BPM MUSE SYSTEM Atrial Rate 90 BPM MUSE SYSTEM P-R Interval 174 ms MUSE SYSTEM QRS Duration 98 ms MUSE SYSTEM Q-T Interval 594 ms MUSE SYSTEM QTC Calculated 726 ms MUSE SYSTEM (Bezet) Calculated P Joffre 56 degrees MUSE SYSTEM Calculated R Joffre 14 degrees MUSE SYSTEM Calculated T Joffre 59 degrees MUSE SYSTEM INTERPRETATION Normal sinus rhythm MUSE SYSTEM Nonspecific ST and T wave abnormality Prolonged QT Abnormal ECG When compared with ECG of 19-JAN-2019 14:51, ST now depressed in Anterolateral leads Nonspecific T wave abnormality now evident in Anterolateral leads QT has lengthened Confirmed by MD MICHAEL, THALIA ([id number]) on 02/21/2020 8:42:01 AM Specimen Anatomical Collection Method Collection Time Receive d Time (Source) Location / / Volume Laterality 02/20/2020 8:54 PM 0 8:42 EST AM EST Osman Barnett MD ECG ORDERABLES Performing Organization Address City/[facility]/ZIP Code Phon e Number MUSE SYSTEM (ABNORMAL) BLOOD GAS 2 ARTERIAL (02/20/2020 7:50 PM EST) Analysis Performed At Patho logist Time Signature pH Art 7.31 (L) 7.35 - [facility] 7.45 [facility] pCO2 Art 47 (H) 35 - 45 [facility] pO2 Art 179 (H) 85 - 104 [facility] HCO3 Art 22.8 20.0 - [facility] 26.0 [facility] mmol/L [facility] BE Art -3.5 (L) -3.0 - 3.0 [facility] mmol/L [facility] Hgb Blood Gas 11.4 (L) 13.7 - [facility] 16.5 gm/dL [facility] O2HB Art 98.0 (H) 94.0 - [facility] 97.0 % [facility] COHB Art 0.3 % [facility] Comment: Nonsmokers: 0.5-1.5% COHB Smokers: Variable, but usually less than 10% Toxic: 20-30% COHB Lethal: Greater than 60% COHB METHB Art 0.3 <=1.5 % [facility] Na Whole Blood 136 135 - 145 mmol/L [facility] K Whole Blood 4.7 3.5 - 5.0 mmol/L [facility] Comment: Please note: Patients with WBC >100,000 may have falsely elevated Potassium levels. Contact the Clinical Chemistry L aboratory if there are any questions. ICa Whole Blood 1.16 1.15 - 1.33 mmol/L [facility] Comment: Note: ??Total bilirubin higher than 20 m g/dL may lead to falsely low ionized calcium. CL Whole Blood 106 98 - 107 mmol/L [facility] Gluc Whole Bld 178 65 - 199 mg/dL [facility] Comment: Diabetes: >=200 mg/dL plus symp toms. Lactate WB 4.6 (Critical) 0.5 - 2.2 mmol/L [facility] Specimen Anatomical Collection Method Collection Time Receive d Time (Source) Location / / Volume Laterality Blood specimen 02/20/2020 7:50 PM 020 7:50 (specimen) EST PM EST Osman Barnett MD CHEMISTRY ORDERABLES Performing Organization Address City/State/[place] [address] POCT Glucose (02/20/2020 7:06 PM EST) P athologist Signature POC Glucose 181 65 - 199 [facility] mg/dL [facility] Comment: Supplemental ranges: <140 mg/dL before meals <180 mg/dL all other times of the day Specimen Anatomical Collection Method Collection Time Receive d Time (Source) Location / / Volume Laterality Blood specimen 02/20/2020 7:06 PM 020 7:06 (specimen) EST PM EST Osman Barnett MD POINT OF CARE TEST ORDERABLE S Performing Organization Address City/[facility]/[place] [address] Specimen to Pathology (02/20/2020 6:11 PM EST) Specimen Anatomical Collection Method Collection Time Receive d Time (Source) Location / / Volume Laterality AP Specimen 02/20/2020 6:11 PM 0 6:11 EST PM EST Narrative [facility] - 02/20/2020 6:11 PM EST Specimen requisition ordered. ??Separate Pathology report to follow Osman Barnett MD PATHOLOGY/CYTOLOGY ORDERABLE S Performing Organization Address City/[facility]/[place] [address] (ABNORMAL) BLOOD GAS 2 ARTERIAL (02/20/2020 6:01 PM EST) Analysis Performed At Patho logist Time Signature pH Art 7.39 7.35 - [facility] 7.45 [facility] pCO2 Art 36 35 - 45 [facility] mmHg [facility] pO2 Art 146 (H) 85 - 104 [facility] HCO3 Art 21.0 20.0 - [facility] 26.0 [facility] mmol/L [facility] BE Art -4.0 (L) -3.0 - 3.0 [facility] mmol/L [facility] Hgb Blood Gas 10.7 (L) 13.7 - [facility] 16.5 gm/dL [facility] O2HB Art 97.5 (H) 94.0 - [facility] 97.0 % [facility] COHB Art 0.8 % [facility] Comment: Nonsmokers: 0.5-1.5% COHB Smokers: Variable, but usually less than 10% Toxic: 20-30% COHB Lethal: Greater than 60% COHB METHB Art 0.3 <=1.5 % [facility] Na Whole Blood 136 135 - 145 mmol/L [facility] K Whole Blood 4.4 3.5 - 5.0 mmol/L [facility] Comment: Please note: Patients with WBC >100,000 may have falsely elevated Potassium levels. Contact the Clinical Chemistry L aboratory if there are any questions. ICa Whole Blood 1.17 1.15 - 1.33 mmol/L [facility] Comment: Note: ??Total bilirubin higher than 20 m g/dL may lead to falsely low ionized calcium. CL Whole Blood 104 98 - 107 mmol/L [facility] Gluc Whole Bld 167 65 - 199 mg/dL [facility] Comment: Diabetes: >=200 mg/dL plus symp toms. Lactate WB 5.0 (Critical) 0.5 - 2.2 mmol/L [facility] Specimen Anatomical Collection Method Collection Time Receive d Time (Source) Location / / Volume Laterality Blood specimen 02/20/2020 6:01 PM 020 6:01 (specimen) EST PM EST Osman Barnett MD CHEMISTRY ORDERABLES Performing Organization Address City/[facility]/[place] [address] Specimen to Pathology (02/20/2020 5:57 PM EST) Specimen Anatomical Collection Method Collection Time Receive d Time (Source) Location / / Volume Laterality AP Specimen 02/20/2020 5:57 PM 0 5:57 EST PM EST Narrative [facility] - 02/20/2020 5:57 PM EST Specimen requisition ordered. ??Separate Pathology report to follow Osman Barnett MD PATHOLOGY/CYTOLOGY ORDERABLE S Performing Organization Address City/[facility]/[place] [address] Specimen to Pathology (02/20/2020 5:44 PM EST) Specimen Anatomical Collection Method Collection Time Receive d Time (Source) Location / / Volume Laterality AP Specimen 02/20/2020 5:44 PM 0 5:44 EST PM EST Narrative [facility] OR - 02/20/2020 5:44 PM EST Specimen requisition ordered. ??Separate Pathology report to follow Osman Barnett MD PATHOLOGY/CYTOLOGY ORDERABLE S Performing Organization Address City/State/[place] [address] Specimen to Pathology (02/20/2020 5:43 PM EST) Specimen Anatomical Collection Method Collection Time Receive d Time (Source) Location / / Volume Laterality AP Specimen 02/20/2020 5:43 PM 0 5:43 EST PM EST Narrative [facility] - 02/20/2020 5:43 PM EST Specimen requisition ordered. ??Separate Pathology report to follow Osman Barnett MD PATHOLOGY/CYTOLOGY ORDERABLE S Performing Organization Address [facility]/[place] [address] Specimen to Pathology (02/20/2020 5:42 PM EST) Specimen Anatomical Collection Method Collection Time Receive d Time (Source) Location / / Volume Laterality AP Specimen 02/20/2020 5:42 PM 0 5:42 EST PM EST Narrative [facility] - 02/20/2020 5:42 PM EST Specimen requisition ordered. ??Separate Pathology report to follow Osman Barnett MD PATHOLOGY/CYTOLOGY ORDERABLE S Performing Organization Address City/[facility]/[place] [address] Specimen to Pathology (02/20/2020 5:41 PM EST) Specimen Anatomical Collection Method Collection Time Receive d Time (Source) Location / / Volume Laterality AP Specimen 02/20/2020 5:41 PM 0 5:41 EST PM EST Narrative [facility] - 02/20/2020 5:41 PM EST Specimen requisition ordered. ??Separate Pathology report to follow Osman Barnett MD PATHOLOGY/CYTOLOGY ORDERABLE S Performing Organization Address City/[facility]/[place] [address] ABORH Recheck Status (02/20/2020 5:35 PM EST) Patholo gist Method Time Signature ABORH Recheck Order Placed IMAN DINORA K Order [facility] ABORH Type Complete [facility]ORY Specimen Anatomical Collection Method Collection Time Receive d Time (Source) Location / / Volume Laterality Blood specimen 02/20/2020 5:35 PM 020 5:43 (specimen) EST PM EST Resulting Agency Comment Spec In Lab Osman Barnett MD BLOOD BANK ORDERABLES Performing Organization Address City/State/[place] [address] Antibody screen (02/20/2020 5:35 PM EST) [facility] Signature Ab Screen Negative [facility] LAB[facility]ORY Expires at 02/23/2020 [facility] [id number] on: [facility] Specimen Anatomical Collection Method Collection Time Receive d Time (Source) Location / / Volume Laterality Blood specimen 02/20/2020 5:35 PM 5:43 (specimen) EST PM EST Resulting Agency Comment Spec In Lab Osman Barnett MD BLOOD BANK ORDERABLES Performing Organization Address City/[facility]/ZIP Code Phon e Number [address] ABO/Rh Typing (02/20/2020 5:35 PM EST) P athologist Signature ABORh Type A Pos [facility] Specimen Anatomical Collection Method Collection Time Receive d Time (Source) Location / / Volume Laterality Blood specimen 02/20/2020 5:35 PM 5:43 (specimen) EST PM EST Resulting Agency Comment Spec In Lab Osman Barnett MD BLOOD BANK ORDERABLES Performing Organization Address City/[facility]/ZIP Code Phon e Number [address] Prepare RBC (02/20/2020 5:30 PM EST) P athologist Signature Dispensed? Yes [facility] Specimen Anatomical Collection Method Collection Time Receive d Time (Source) Location / / Volume Laterality Blood specimen 02/20/2020 5:30 PM 12/02/2 020 5:26 (specimen) EST PM EST Osman Barnett MD BLOOD BANK ORDERABLES Performing Organization Address City/State/[place] [address] (ABNORMAL) BLOOD GAS 2 ARTERIAL (02/20/2020 4:58 PM EST) Analysis Performed At Patho logist Time Signature pH Art 7.40 7.35 - [facility] 7.45 [facility] pCO2 Art 34 (L) 35 - 45 [facility] mmHg [facility] pO2 Art 170 (H) 85 - 104 [facility] mmHg [facility] HCO3 Art 20.8 20.0 - [facility] 26.0 [facility] mmol/L [facility] BE Art -3.9 (L) -3.0 - 3.0 [facility] mmol/L [facility] Hgb Blood Gas 10.8 (L) 13.7 - [facility] 16.5 gm/dL [facility] O2HB Art 98.1 (H) 94.0 - [facility] 97.0 % [facility] COHB Art 0.3 % [facility] Comment: Nonsmokers: 0.5-1.5% COHB Smokers: Variable, but usually less than 10% Toxic: 20-30% COHB Lethal: Greater than 60% COHB METHB Art 0.3 <=1.5 % [facility] Na Whole Blood 138 135 - 145 mmol/L [facility] K Whole Blood 4.4 3.5 - 5.0 mmol/L [facility] Comment: Please note: Patients with WBC >100,000 may have falsely elevated Potassium levels. Contact the Clinical Chemistry L aboratory if there are any questions. ICa Whole Blood 1.26 1.15 - 1.33 mmol/L [facility] Comment: Note: ??Total bilirubin higher than 20 m g/dL may lead to falsely low ionized calcium. CL Whole Blood 105 98 - 107 mmol/L [facility] Gluc Whole Bld 155 65 - 199 mg/dL [facility] Comment: Diabetes: >=200 mg/dL plus symp toms. Lactate WB 5.6 (Critical) 0.5 - 2.2 mmol/L [facility] Specimen Anatomical Collection Method Collection Time Receive d Time (Source) Location / / Volume Laterality Blood specimen Arterial Draw / 02/20/2020 4:58 PM 04/2019 4:58 (specimen) Unknown EST PM EST Resulting Agency Comment Spec In Lab Helio Cristobal MD CHEMISTRY ORDERABLES Performing Organization Address City/State/[place] [address] Surgical Pathology Report (02/20/2020 4:05 PM EST) Component Value Ref Test Analysis Performed At [facility] gist Range Method Time Signature Surgical [id number] ? Location: 5WST; 0504; A [facility] Pathology [place] Report The signing pathologist has (i) examined the relevant preparation(s) for the [facility] specimen(s) and (ii) rendered or confirmed the diagnosis(es) . HOSPITAL LABORATORY . ?Surgic al Pathology DIAGNOSIS A - Left tissue against the TMG, biopsy: ?- Cauterized fibroadipose tissue. No definite carcinoma identified. B - Left temporalis muscle, biopsy: ?- Skeletal muscle a nd fibrous tissue with focal dystrophic calcification. ?- There is no evidence of malignancy. C - Level 3 left neck, excision: ?- 18 lymph nodes, negative for malignancy. (0/18) D - Level 2A Left neck, excision: ?- Two lymph nodes, negative for malignancy. (0/2) E - Level 1B left neck, excision: ?- Six lymph nodes, negative for malignancy. (0/6) F - Level 2B Left Neck, excision: ?- Eight lymph nodes, negative for malignancy. (0/8) G - Otectomy, parotidectomy, temporal bone, resection: ?- Squamous cell carcinoma. 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 (/) ?- Extensive venous invasion present. ?? - Carcinoma involves the deep-central soft tissue margin and the ?anterior-inferior soft tissue margin. ?(see Dis cussion.) H - Deep lobe parotid Left, excision: ?- Squamous cell car cinoma, extensively involving fibrous soft tissue and large ? veins. ?- Carcinoma extends to specimen tissue edges. ?- The clipped vascular margin is negative for tumor . Electronically signed by: ??MD Margaret, Brad Bocanegra Verified: ??03/11/2020 ?Pathologist Performed at: ??-[facility] [place] Dept. 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 Histologic Type: ??Squamous cell carcinoma ? Histologic Grade: ??Moderately differentiated ? Tumor Size: ??6.8 cm ? Tumor Focality: ??Unifocal ? Tumor Extent: ? ?Carcinoma involves the ear canal, temporal bone, parotid ?gland, and surrounding soft tissue ? Lymphovascular Invasion: ??Present: ??extensive large vein invasion present ? Perineural invasion: ??Present: ??(focal) Margins . SYNOPTIC ? Margins: ??Cannot be assessed - see discussion Lymph Nodes ? Number of Lymph Nodes Involved: ??1 ? Extranodal Extension: ??Present ? Number of Lymph Nodes Examined: ??38 Stage ? Primary Tumor ( pT): ??pT4a (Tumor with gross cortical bone/marrow invasion) ? Regional Lymph Nodes (pN): ??pN2a ?? (Metastasis in a single ipsilateral lymph ?node larger than 3 cm but not larger than 6 cm and without EDLIBERTO) Tumor Block(s): ??G10 Normal Block(s): ??G22 (AJCC 8th Edition) DISCUSSION Amended Report - This ca se was amended on 03/11/[address] Galdamez by e-mail. The pathologic delmer (pN) staging has been updated to reflect the accurate pN stage (pN2a). No other changes were made to this report. Clinical/surgical correlatio n is needed to determine relationship of separately submitted margins/tissues. Carcinoma in volves soft tissue margins of the main specimen (Part G) as well a s the deep lobe of parotid speciment margins (Part H). ADDITIONAL STUDIES Whole slide scan: personal service representative slide(s) SPECIMEN(S) SUBMITTED A - LEFT TISSUE AGAINST TMG, biopsy (1) B - LEFT TEMPORALIS MUSCLE, biopsy (1) C - Level 3 left neck, excision (1) D - Level 2A Left neck, excision (1) E - Level 1B left neck, excision (1) F - Level 2B Left Neck, excision (1) G - otectomy, parotidectomy, temporal bone resection, excisi on (1) H - Deep lobe parotid Left, excision (1) CLINICAL INFORMATION Parotid mass SPECIMEN PROCESSING A - Labeled/Fixative: Left tissue against TMJ, fresh for fro brenton section. Quantity/Size: ??Two, 0.7 x 0.6 x 0.4 cm and 1.0 x 0.4 x 0.3 cm Tissue Description: Red-brown, cauterized soft tissue Sections/Processing: The specimen is totally submitted for fr ozen section in 1 cassette labeled A1. B - Labeled/Fixative: Left temporalis muscle, fresh for froz en section. Quantity/Size: ??Two, 1.0 x 0.4 x 0.3 cm and 1.0 x 0.6 x 0.3 cm Tissue Description: Red-brown, cauterized soft tissue Sections/Processing: The specimen is totally submitted for fr ozen section in 1 cassette labeled B1. C - Labeled/Fixative: Level III left neck, fresh. Quantity/Size: Single, 7.7 x 3.3 x 0.8 cm. . SPECIMEN PROCESSING Tissue Description: Adipose tissue with multiple lymph nodes, up to 1.8 x 1.1 x 0.4 cm. Also present is a 1.5 x 0.4 cm length of thin walled ve ssel Sections/Processing: Corporate Lawyer sections in 11 cassettes as follows: ?C1: ??Thin-walled vessel cross-sections ?C2: ??4 intact lymph nodes ?C3: ??3 intact lymph nodes ?C4: ??3 intact lymph nodes ?C5: ??3 intact lymph nodes ?C6: ??Single intact lymph node ?C7: ??Single trisected lymph node ?C8: ??Single bisected lymph node ?C9: ??Single bisected lymph node ?C10-C11: ??Single bisected lymph node D - Labeled/Fixative: Level II a left neck, fresh. Quantity/Size: Single, 4.6 x 1.6 x 1.2 cm. Tissue Description: Adipose tissue with two lymph nodes, up to 1.8 x 1.0 x 0.6 cm. Sections/Processing: Entirely submitted in 7 cassettes as follows: ?D1-D2: ??Single bisected lymph node ?D3: ??Single bisected lymph node ?D4-D7: ??Remaining tissue, entirely submitted E - Labeled/Fixative: Level IB left neck, fresh. Quantity/Size: Single, 5.2 x 5.0 x 1.8 cm. Tissue Description: Adipose tissue with six lymph nodes, up to 1.0 x 0.5 x 0.4 cm. Also present is a 4.1 x 2.5 x 2.1 cm submandibular gland with an unremarkable cut surface Sections/Processing: Corporate Lawyer sections in 6 cassettes as follows: ?E1: ??Submandibular gland ?E2: ??Single bisected lymph node ?E3: ??Single bisected lymph node 6 ?E4: ??Single bisected lymph node ?E5: ??2 intact lymph nodes ?E6: ??Single intact candidate lymph node F - Labeled/Fixative: Level IIB left neck, formalin. Quantity/Size: Single, 2.2 x 2.0 x 0.8 cm. Tissue Description: Cauteriz ed portion of adipose tissue with 4 lymph nodes up to 0.8 x 0.7 x 0.5 cm. Sections/Processing: Entirely submitted in 5 cassettes as follows: ?F1: ??Single bisected lymph node ?F2: ??Single bisected lymph node ?F3: ??2 intact lymph nodes ?F4-F5: ??Remaining tissue, entirely submitted G - Labeled/Fixative: otectomy, parotide ctomy, temporal bone resection, fresh. Quantity/Size: Single, 8.4 c m (superior-inferior) 8.3 cm (anterior-posterior) 7.6 cm (superficial-deep). Tissue Description: En bloc resection consisting of lower pinna, periauricular skin, temporal bone, and parotid with deep soft tissue. Orientation: Single suture i s superior and double suture is anterior. The specimen is given a clock face orien tation by the prosector with the single superior stitch being 12 o'clock and the anterior stitch being 9 o'clock LESION Size: 6.8 cm (anterior-poste rior) 5.4 cm (superior-inferior) 5.9 cm (medial-lateral/ superficial-deep) Description: Distorting, fun gating mass involving the preauricular, infra-auricular and postauricular soft tiss ue, parotid and lower pinna. There is ulceration of the . SPECIMEN PROCESSING postauricular skin measurin g 3.4 x 2.7 cm and ulceration of the tragus and lobule of the ear. Cut surface/extent of invasi on: Widely invasive lema-white tumor with near complete destruction of the parotid gland. The tumor is within the auditory canal, coming to within 0.5 cm of the audito ry canal margin. The mass abuts and appears to focally involve the temporal bone Skin margins: - 0.6 cm from the superior margin at 12 o'clock - 1.2 cm from the anterior margin at 9 o'clock - 1.0 cm from the posterior margin at 3 o'clock - 1.1 cm from the inferior margin at 6 o'clock - 0.5 cm from the helical margin. Soft tissue margins: - Anterior inferior-less than 0.1 cm - Anterior superior-0.3 cm - Posterior superior-0.9 cm - Posterior inferior-less than 0.1 cm Lymph nodes: 3 lymph nodes, up to 1.1 cm Ink: - 12-3 o'clock (superior posterior) black - 3-6 o'clock (inferior posterior) green - 6-9 o'clock (inferior anterior) red - 9-12 o'clock (superior anterior) orange Sections/Processing: Blocks submitted for decalcification: G1, G3-G4. Corporate Lawyer sections in 23 cassettes as follows: ?G1: ??Auditory canal bone margin, en face ?G2-G3: ??Full length l ongitudinal section of auditory canal bisected centrally with ? external auditory meatus in block G2 and temporal bon e in block G3 ?G4: ??legal recovery specialist y canal with temporal bone and portion of styloid process ?G5: ??[place] margin including postauricular skin, perpendicular section ?G6: ??Posterior superior skin margin (approximately 1 o'clock) ?G7: ??Posterior skin margin at 3 o'clock ?G8: ??Inferior skin margin at 6 o'clock ?G9: ??Anterior skin margin 9 o'clock ?G10-G12: ??Full-thickn ess section showing greatest medial-lateral/superficial-deep ? dimension, trisected into superficial, mid, and deep (central deep margin in ? block G12) ?G13: ??Anterior inferior soft tissue margin ?G14: ??Anterior superior soft tissue margin ?G15: ??Posterior superior soft tissue margin ?G16-G17: ??Posterior inferior soft tissue margin ?G18: ??Postauricular skin ulceration ?G19-G20: ??Inferior parotid lymph node, trisected ?G21: ??Inferior parotid lymph node, trisected ?G22-G23: ??Inferior parotid lymph node, trisected H - Labeled/Fixative: Deep lobe parotid, fresh. Quantity/Size: Single, 2.2 x 2.0 x 1.0 cm. Tissue Description: Cauteriz ed, shaggy red-brown rubbery tissue. Sectioning reveals a 1.6 x 1.4 x 0.8 cm area o f firm ill-defined lema-white discoloration which encases a thick walled vessel measu ring with a 0.2 cm in diameter lumen. The discoloration comes to within less than 0 .1 cm of the inked outer surface. Also received the same container are 2 detached ta n-yellow soft tissue fragments measuring 0.5 and 0.7 cm. Sections/Processing: Entirely submitted in 8 cassettes as follows: ?H1: ??Clipped vascular margin ?H2-H7: ??Specimen, sequentially submitted ?H8: ??Additional detached fragments ??ajw . ?Fro brenton Section FROZEN SECTION DIAGNOSIS FS A - LEFT TISSUE AGAINST TMJ, biopsy - Benign ??appearing, cauterized tissue. FSB - LEFT TEMPORALIS MUSCLE, biopsy - Benign soft tissue, with focal calcification. 02/20/20 16:33 Electronically signed by: ??Terri Painting DO Verified: ??02/20/2020 ?Pathologist Performed at: ??-[facility] [place] Dept. [place]ology, [place], [place] This intraoperative consultation should be interpreted as a preliminary diagnosis pending review of the entire specimen and sp ecial studies, if any. Specimen (Source) Anatomical Collection Method Collection Time Re ceived Time Location / / Volume Laterality 02/20/2020 4:05 PM EST Osman Barnett MD PATHOLOGY/CYTOLOGY ORDERABLE S Performing Organization Address City/State/[place] [address] Specimen to Pathology (02/20/2020 4:05 PM EST) Specimen Anatomical Collection Method Collection Time Receive d Time (Source) Location / / Volume Laterality AP Specimen 02/20/2020 4:05 PM 0 4:05 EST PM EST Narrative [facility] - 02/20/2020 4:05 PM EST Specimen requisition ordered. ??Separate Pathology report to follow Osman Barnett MD PATHOLOGY/CYTOLOGY ORDERABLE S Performing Organization Address City/State/[place] [address] Specimen to Pathology (02/20/2020 4:05 PM EST) Specimen Anatomical Collection Method Collection Time Receive d Time (Source) Location / / Volume Laterality AP Specimen 02/20/2020 4:05 PM 0 4:05 EST PM EST Narrative [facility] - 02/20/2020 4:05 PM EST Specimen requisition ordered. ??Separate Pathology report to follow Osman Barnett MD PATHOLOGY/CYTOLOGY ORDERABLE S Performing Organization Address City/[facility]/ZIP Code Phon e Number [place] [id number] (ABNORMAL) BLOOD GAS 2 ARTERIAL (02/20/2020 3:54 PM EST) Analysis Performed At Patho logist Time Signature pH Art 7.38 7.35 - [facility] 7.45 [facility] pCO2 Art 32 (L) 35 - 45 [facility] mmHg [facility] pO2 Art 248 (H) 85 - 104 [facility] LABORATORY HCO3 Art 18.5 (L) 20.0 - [facility] 26.0 [facility] mmol/[facility] BE Art -6.5 (L) -3.0 - 3.0 [facility] mmol/L [facility] Hgb Blood Gas 11.5 (L) 13.7 - [facility] 16.5 gm/dL [facility] O2HB Art 98.6 (H) 94.0 - [facility] 97.0 % [facility] COHB Art 0.1 % [facility] Comment: Nonsmokers: 0.5-1.5% COHB Smokers: Variable, but usually less than 10% Toxic: 20-30% COHB Lethal: Greater than 60% COHB METHB Art 0.3 <=1.5 % [facility] Na Whole Blood 138 135 - 145 mmol/L [facility] K Whole Blood 3.8 3.5 - 5.0 mmol/L [facility] Comment: Please note: Patients with WBC >100,000 may have falsely elevated Potassium levels. Contact the Clinical Chemistry L aboratory if there are any questions. ICa Whole Blood 1.13 (L) 1.15 - 1.33 mmol/L [facility] Comment: Note: ??Total bilirubin higher than 20 m g/dL may lead to falsely low ionized calcium. CL Whole Blood 109 (H) 98 - 107 mmol/L [facility] Gluc Whole Bld 158 65 - 199 mg/dL [facility] Comment: Diabetes: >=200 mg/dL plus symp toms. Lactate WB 4.7 (Critical) 0.5 - 2.2 mmol/L [facility] Specimen Anatomical Collection Method Collection Time Receive d Time (Source) Location / / Volume Laterality Blood specimen 02/20/2020 3:54 PM 020 3:54 (specimen) EST PM EST Osman Barnett MD CHEMISTRY ORDERABLES Performing Organization Address City/[facility]/[place] [facility] [place] [address] POCT Glucose (02/20/2020 3:25 PM EST) athologist Signature POC Glucose 165 65 - 199 [facility] Comment: Supplemental ranges: <140 mg/dL before meals <180 mg/dL all other times of the day Specimen Anatomical Collection Method Collection Time Receive d Time (Source) Location / / Volume Laterality Blood specimen 02/20/2020 3:25 PM 020 3:25 (specimen) EST PM EST Osman Barnett MD POINT OF CARE TEST ORDERABLE S Performing Organization Address City/[facility]/[place]IP [facility] [place] [address] (ABNORMAL) POCT Glucose (02/20/2020 2:16 PM EST) P athologist Signature POC Glucose 201 (H) 65 - 199 [facility] mg/dL [facility] Comment: Supplemental ranges: <140 mg/dL before meals <180 mg/dL all other times of the day Specimen Anatomical Collection Method Collection Time Receive d Time (Source) Location / / Volume Laterality Blood specimen 02/20/2020 2:16 PM 020 2:16 (specimen) EST PM EST Osman Barnett MD POINT OF CARE TEST ORDERABLE S Performing Organization Address City/[facility]/[place] [address] (ABNORMAL) POCT Glucose (02/20/2020 1:15 PM EST) P athologist Signature POC Glucose 227 (H) 65 - 199 [facility] mg/dL [facility] Comment: Supplemental ranges: <140 mg/dL before meals <180 mg/dL all other times of the day Specimen Anatomical Collection Method Collection Time Receive d Time (Source) Location / / Volume Laterality Blood specimen 02/20/2020 1:15 PM 020 1:15 (specimen) EST PM EST Osman Barnett MD POINT OF CARE TEST ORDERABLE S Performing Organization Address City/[facility]/[place] [address] (ABNORMAL) BLOOD GAS 2 ARTERIAL (02/20/2020 12:07 PM EST) Analysis Performed At Patho logist Time Signature pH Art 7.40 7.35 - [facility] 7.45 [facility] pCO2 Art 36 35 - 45 [facility] mmHg [facility] pO2 Art 139 (H) 85 - 104 [facility] LABORATORY HCO3 Art 21.9 20.0 - [facility] 26.0 [facility] mmol/L [facility] BE Art -3.0 -3.0 - 3.0 [facility] mmol/L [facility] Hgb Blood Gas 15.2 13.7 - [facility] 16.5 gm/dL [facility] O2HB Art 97.4 (H) 94.0 - [facility] 97.0 % [facility] COHB Art 1.2 % [facility] Comment: Nonsmokers: 0.5-1.5% COHB Smokers: Variable, but usually less than 10% Toxic: 20-30% COHB Lethal: Greater than 60% COHB METHB Art 0.3 <=1.5 % [facility] Na Whole Blood 135 135 - 145 mmol/L [facility] K Whole Blood 3.6 3.5 - 5.0 mmol/L [facility] Comment: Please note: Patients with WBC >100,000 may have falsely elevated Potassium levels. Contact the Clinical Chemistry L aboratory if there are any questions. ICa Whole Blood 1.12 (L) 1.15 - 1.33 mmol/L [facility] Comment: Note: ??Total bilirubin higher than 20 m g/dL may lead to falsely low ionized calcium. CL Whole Blood 103 98 - 107 mmol/L [facility] Gluc Whole Bld 222 (H) 65 - 199 mg/dL [facility] Comment: Diabetes: >=200 mg/dL plus symp toms. Lactate WB 2.8 (H) 0.5 - 2.2 mmol/L [facility] FIO2 Art 44 % [facility] Flow Art 0.5 LPM [facility] PF Ratio Art 316 [facility] Temp Art 36.4 Celsius [facility] Specimen Anatomical Collection Method Collection Time Receive d Time (Source) Location / / Volume Laterality Blood specimen 02/20/2020 12:07 0 (specimen) PM EST 12:07 PM EST Osman Barnett MD CHEMISTRY ORDERABLES Performing Organization Address City/State/[place] [address] (ABNORMAL) BLOOD GAS 2 ARTERIAL (02/20/2020 8:11 AM EST) Analysis Performed At Patho logist Time Signature pH Art 7.41 7.35 - [facility] 7.45 [facility] pCO2 Art 37 35 - 45 [facility] LAB[facility]ORY pO2 Art 415 (H) 85 - 104 [facility] LABORATORY HCO3 Art 22.8 20.0 - [facility] 26.0 [facility] mmol/[facility] BE Art -2.1 -3.0 - 3.0 [facility] mmol/L [facility] Hgb Blood Gas 13.4 (L) 13.7 - [facility] 16.5 gm/dL [facility] O2HB Art 97.7 (H) 94.0 - [facility] 97.0 % [facility] COHB Art 1.5 % [facility] Comment: Nonsmokers: 0.5-1.5% COHB Smokers: Variable, but usually less than 10% Toxic: 20-30% COHB Lethal: Greater than 60% COHB METHB Art 0.3 <=1.5 % [facility] Na Whole Blood 132 (L) 135 - 145 mmol/L [facility] K Whole Blood 3.9 3.5 - 5.0 mmol/L [facility] Comment: Please note: Patients with WBC >100,000 may have falsely elevated Potassium levels. Contact the Clinical Chemistry L aboratory if there are any questions. ICa Whole Blood 1.16 1.15 - 1.33 mmol/L [facility] Comment: Note: ??Total bilirubin higher than 20 m g/dL may lead to falsely low ionized calcium. CL Whole Blood 104 98 - 107 mmol/L [facility] Gluc Whole Bld 147 65 - 199 mg/dL [facility] Comment: Diabetes: >=200 mg/dL plus symp toms. Lactate WB 2.6 (H) 0.5 - 2.2 mmol/L [facility] FIO2 Art 83 % [facility] Flow Art 0.8 LPM [facility] PF Ratio Art 500 [facility] Specimen Anatomical Collection Method Collection Time Receive d Time (Source) Location / / Volume Laterality Blood specimen Arterial Draw / 02/20/2020 8:11 AM 1204/2019 8:11 (specimen) Unknown EST AM EST Resulting Agency Comment Spec In Lab Osman Barnett MD CHEMISTRY ORDERABLES Performing Organization Address City/State/[place] [address] SCAN DOC: LAB (02/20/2020 12:00 AM EST) Narrative 02/20/2020 12:00 AM EST This result has an attachment that is no t available. Ordered by an unspecified provider. Scanning Provider MEDIA MGR SCAN EXT ORDR/RSLT documented in this encounter Visit Diagnoses Diagnosis Mass of left ear Parotid mass Swelling, mass, or lump in head and neck Coronary artery disease involving circle heart, angina presence unspecified, unspecified vessel or lesion type Prolonged Q-T interval on ECG Nonspecific abnormal electrocardiogram ( ECG) (EKG) Squamous cell carcinoma of ear, left documented in this encounter Admitting Diagnoses Diagnosis Mass of left ear Parotid mass Swelling, mass, or lump in head and neck Squamous cell carcinoma of ear, left documented in this encounter Administered Medications Inactive Administered Medications - up to 3 most recent administrations Medication Order MAR Action Action Date Dose Rate Site acetaminophen (Tylenol) tablet 650 Given 02/26/2020 8:43 AM EST 650 mg mg 650 mg, Oral, EVERY 4 HOURS, First dose on Jessica 02/21/20 at 0300, Until Discontinued, Maximum dose of acetaminophen is 4000 mg from all sources in 24 hours. When ordered for pain, acetaminophen should be given even when other ordered pain medications are indicated. , Routine Given 02/26/2020 4:00 AM EST 650 mg Given 02/25/2020 11:59 PM EST 650 mg amitriptyline (Elavil) tablet 100 mg Given 02/25/2020 8:35 PM EST 100 mg 100 mg, Oral, NIGHTLY, First dose on Jessica 02/21/20 at 2100, Until Discontinued, Routine Given 02/24/2020 9:27 PM EST 100 mg Given 02/23/2020 11:23 PM EST 100 mg ARIPiprazole (Abilify) tablet 15 mg Given 02/26/2020 8:33 AM EST 15 mg 15 mg, Oral, DAILY, First dose on Jessica 02/21/20 at 0900, Until Discontinued, Routine Given 02/25/2020 8:39 AM EST 15 mg Given 02/24/2020 8:14 AM EST 15 mg atorvastatin (Lipitor) tablet 20 mg Given 02/26/2020 8:33 AM EST 20 mg 20 mg, Oral, DAILY, First dose on Jessica 02/21/20 at 0900, Until Discontinued, Routine Given 02/25/2020 8:38 AM EST 20 mg Given 02/24/2020 8:13 AM EST 20 mg carboxymethylcellulose (REFRESH PLUS) 0.5 % Given 02/24/2020 9:00 AM EST 1 drop ophthalmic drops 1 drop 1 drop, Both Eyes, 3 TIMES DAILY PRN, Starting on Tue02/22/20 at 1743, Until Tue02/24/20 at 0913, Dry Eyes, Routine Given 02/23/2020 4:38 PM EST 1 drop carboxymethylcellulose (REFRESH PLUS) 0.5 % Given 10/2019 8:44 AM EST 2 drops ophthalmic drops 2 drop 2 drop, Both Eyes, 4 TIMES DAILY, First dose (after last modification) on 02/24/20 at 1300, Until Discontinued, Routine Given 02/25/2020 8:35 PM EST 2 drops Given 02/25/2020 6:16 PM EST 2 drops clindamycin (Cleocin) 600 mg in New Bag 02/25/2020 1:37 PM EST 600 mg 150 mL/hr dextrose 5% 50 mL infusion 600 mg, Intravenous, EVERY 8 HOURS, 15 doses, First dose on Tue02/20/20 at 2200, Last dose on Tue02/25/20 at 1400, Administer over 20 Minutes, Indication for (Active or Suspected): Prophylaxis New Bag 02/25/2020 6:39 AM EST 600 mg 150 mL/hr New Bag 02/24/2020 9:28 PM EST 600 mg 150 mL/hr cyclobenzaprine (Flexeril) tablet 10 mg Given 02/22/2020 9:27 AM EST 10 mg 10 mg, Oral, ONCE, 1 dose, On Tue02/22/20 at 0745, Routine enoxaparin (Lovenox) (40 mg/0.4 mL) Given 02/25/2020 8:35 PM EST 40 mg subcutaneous injection 40 mg 40 mg, Subcutaneous, NIGHTLY, First dose on Jessica 02/21/20 at 2100, Until Discontinued, Routine Given 02/24/2020 9:28 PM EST 40 mg Given 02/23/2020 9:24 PM EST 40 mg fenofibrate micronized (Lofibra) capsule 200 Given 10/2019 8:33 AM EST 200 mg mg 200 mg, Oral, DAILY WITH BREAKFAST, First dose on Jessica 02/21/20 at 0800, Until Discontinued Given 02/25/2020 8:39 AM EST 200 mg Given 02/24/2020 8:14 AM EST 200 mg HYDROmorphone (Dilaudid) (2 mg/mL) Given 02/20/2020 11:45 PM EST 0.2 mg multi-dose injection solution 0.4-0.6 mg 0.4-0.6 mg, Intravenous, EVERY 5 MIN PRN, Starting on 02/20/20 at 2057, Until Jessica 02/21/20 at 0143, Pain, Give 0.4 mg every 5 minutes PRN for mild to moderate pain (1-5) Give 0.6 mg every 5 minutes PRN for moderate to severe pain (6-10). Hold for respiratory rate less than 10 per minute. Maximum dose 4 mg over one hour. If multiple pain medications are ordered, start with hydromorphone or morphine and use fentanyl for breakthrough pain., PACU Recovery, Routine Given 02/20/2020 11:08 PM EST 0.2 mg Given 02/20/2020 10:47 PM EST 0.4 mg HYDROmorphone (Dilaudid) 0.5 mg/0.5 mL Given 02/21/2020 9:19 AM EST 0.2 mg injection 0.2 mg 0.2 mg, Intravenous, EVERY 2 HOURS PRN, Starting on Jessica 02/21/20 at 0202, Until 02/25/20 at 0637, Pain, Please only use if schedule and prn oxycodone aren't controlling pain to reasonable level., Routine HYDROmorphone (Dilaudid) tablet 2 mg Given 02/21/2020 12:42 AM EST 2 mg 2 mg, Oral, EVERY 4 HOURS PRN, Starting on Jessica 02/21/20 at 0016, Until Jessica 02/21/20 at 1133, Pain, for mild pain (1-3), May give an additional 2 mg once if pain not relieved in 30-60 minutes., Routine HYDROmorphone (Dilaudid) tablet 2 mg Given 02/26/2020 4:44 AM EST 2 mg 2 mg, Oral, EVERY 3 HOURS PRN, Starting on Jessica 02/21/20 at 1145, Until 02/26/20 at 1252, Pain, for mild pain (1-3), May give an additional 2 mg once if pain not relieved in 30-60 minutes., Routine Given 02/25/2020 10:03 AM EST 2 mg Given 02/25/2020 2:24 AM EST 2 mg HYDROmorphone (Dilaudid) tablet 4 mg Given 02/21/2020 1:58 AM EST 4 mg 4 mg, Oral, EVERY 4 HOURS PRN, Starting on Jessica 02/21/20 at 0016, Until Jessica 02/21/20 at 1133, Pain, for moderate pain (4-6), May give an additional 2 mg once if pain not relieved in 30-60 minutes., Routine HYDROmorphone (Dilaudid) tablet 4 mg Given 02/23/2020 3:37 AM EST 4 mg 4 mg, Oral, EVERY 3 HOURS PRN, Starting on Jessica 02/21/20 at 1145, Until 02/26/20 at 1252, Pain, for moderate pain (4-6), May give an additional 2 mg once if pain not relieved in 30-60 minutes., Routine HYDROmorphone (Dilaudid) tablet 6 mg Given 02/21/2020 5:56 AM EST 6 mg 6 mg, Oral, EVERY 4 HOURS PRN, Starting on Jessica 02/21/20 at 0016, Until Jessica 12 at 1133, Pain, for severe pain (7-10), May give an additional 2 mg once if pain not relieved in 30-60 minutes., Routine HYDROmorphone (Dilaudid) tablet 6 mg 6 mg, Oral, EVERY 3 HOURS PRN, Starting on Jessica 02/21/20 at 1145, Until Tue 12 at 1252, Pain, for severe pain (7-10), M ay give an additional 2 mg once if pain not relieved in 30-60 minutes., Routine ibuprofen (Advil;Motrin) tablet 600 mg Given 02/26/2020 8:31 AM EST 600 mg 600 mg, Oral, EVERY 6 HOURS, First dose on Jessica 02/21/20 at 0300, Until Discontinued, Administer orally with milk or food to minimize GI irritation. Maximum dose of 3200 mg from all sources in 24 hours, Routine Given 02/26/2020 4:00 AM EST 600 mg Given 02/25/2020 8:36 PM EST 600 mg lactobacillus with pectin capsule 1 Given 02/26/2020 8:32 AM EST 1 capsule capsule 1 capsule, Oral, DAILY, First dose on Jessica 02/21/20 at 1400, Until Discontinued, Routine Given 02/25/2020 8:39 AM EST 1 capsule Given 02/24/2020 8:13 AM EST 1 capsule lamoTRIgine (LaMICtal) tablet 200 mg Given 02/26/2020 8:32 AM EST 200 mg 200 mg, Oral, 2 TIMES DAILY, First dose on Jessica 02/21/20 at 0900, Until Discontinued, Routine Given 02/25/2020 8:35 PM EST 200 mg Given 02/25/2020 8:39 AM EST 200 mg metoprolol succinate XL (Toprol-XL) tablet 50 Given 8:32 AM EST 50 mg mg 50 mg, Oral, DAILY, First dose on Jessica 02/21/20 at 0900, Until Discontinued, DO NOT CRUSH OR OPEN, Routine Given 02/25/2020 8:39 AM EST 50 mg Given 02/24/2020 8:13 AM EST 50 mg polyethylene glycoL (Miralax) packet 17 g Given 02/23/2020 8:36 AM EST 17 g 17 g, Per NG tube, DAILY, First dose on Jessica 02/21/20 at 0900, Until Discontinued, Routine Given 02/22/2020 12:22 PM EST 17 g Given 02/21/2020 9:03 AM EST 17 g prochlorperazine (Compazine) (5 mg/mL) Given 02/24/2020 12:02 AM EST 10 mg injection 10 mg 10 mg, Intravenous, EVERY 6 HOURS PRN, Starting on Tue02/21/20 at 1207, Until Tue02/26/20 at 1252, Nausea, Routine Given 02/22/2020 3:32 AM EST 10 mg prochlorperazine (Compazine) (5 mg/mL) Given 02/21/2020 12:31 AM EST 5 mg injection 5 mg 5 mg, Intravenous, EVERY 30 MIN PRN, 2 doses, Starting on Tue02/20/20 at 2057, Until Tue02/21/20 at 0143, Nausea, May repeat 5 mg once in 30 minutes. If multiple antiemetics ordered, use ondansetron first and if ineffective use prochlorperazine second and if ineffective use promethazine, PACU Recovery, Routine prochlorperazine (Compazine) tablet 10 m g 10 mg, Oral, EVERY 6 HOURS PRN, Starting on Tue02/21/20 at 1207, Until Tu02/26/20 at 1252, Nausea, Maximum dose: 50 mg / 24 hrs, Routine sodium chloride 0.9 % (flush) flush 5 mL Given 02/26/2020 8:44 AM EST 5 mLs 5 mL, Intravenous, 2 TIMES DAILY, First dose on Tue02/21/20 at 0900, Until Discontinued, Recovery (Recovery-Hospital Unit), Routine Given 02/25/2020 8:36 PM EST 5 mLs Given 02/25/2020 8:45 AM EST 5 mLs sodium chloride 0.9% infusion New Bag 02/20/2020 10:03 PM EST 100 mL/hr 100 mL/hr 100 mL/hr, Intravenous, CONTINUOUS, Starting on Tue02/20/20 at 2130, Until Jessica 02/21/20 at 0121, Recovery (Recovery-Hospital Unit) sodium chloride 0.9% infusion New Bag 02/21/2020 1:50 AM EST 75 mL/hr 75 mL/hr 75 mL/hr, Intravenous, CONTINUOUS, Starting on Tue02/21/20 at 0145, Until Jessica 02/21/20 at 1129 tamsulosin (Flomax) capsule 0.4 mg Given 02/26/2020 8:32 AM EST 0.4 mg 0.4 mg, Oral, DAILY, 7 doses, First dose on Tue02/22/20 at 0900, Last dose on Tue02/28/20 at 0900, DO NOT CRUSH OR OPEN, Routine Given 02/25/2020 8:39 AM EST 0.4 mg Given 02/24/2020 8:13 AM EST 0.4 mg documented in this encounter Active and Recently Administered Medications Times are shown in EST. Scheduled Medication Order 02/24/2020 02/25/2020 02/26/2020 acetaminophen (Tylenol) tablet 650 mg 0419 (Given - Pr ovider: Helio Falcon, CONNOR)0603 (Given - Provider: Helio Falcon, CONNOR)1215 (Given - Provider: Paola Garcia, CONNOR)1543 (Given - Provider: Paola Garcia RN) 0223 (Given - Provider: Helio Falcon, CONNOR)0637 (Given - Provider: Helio Falcon RN)1100 (Not Given - Provider: Paola Garcia RN - Reason: Patient/family refused)1515 (Given - Provider: Paola Garcia RN) 0400 (Given - Provider: Pita Bradley RN)0843 (Given - Provider: Sonia Rodgers, CONNOR) 650 mg, Oral, EVERY 4 HOURS, First dose on Jessica 02/21/20 at 0300, Until Discontinued, Maximum dose of acetaminophen is 4000 mg from all sources in 24 hours. When ordered for pain, acetaminophen should be 1900 (Not Given - Provider: Danika Tolbert RN - Reason: See comment - Comment: given early)212 (Given - Provider: Helio Falcon RN)2300 (Not Given - Provider: Helio Falcon RN - Reason: Patient not available) 1816 (Given - Provider: Paola Garcia RN)2359 (Given - Provider: Pita Bradley RN) given even when other ordered pain medications are indicated. , Routine amitriptyline (Elavil) tablet 100 mg 2126 (Given - Pro vider: Helio Falcon RN) 203 (Given - Provider: Pita Bradley RN) 100 mg, Oral, NIGHTLY, First dose on Jessica 02/21/20 at 2100, Until Discontinued, Routine ARIPiprazole (Abilify) tablet 15 mg 0814 (Given - Prov ider: Paola Garcia RN) 0839 (Given - Provider: Paola Garcia RN) 0833 (Giv en - Provider: Sonia Rodgers, CONNOR) 15 mg, Oral, DAILY, First dose on Jessica at 0900, Until Discontinued, Routine atorvastatin (Lipitor) tablet 20 mg 0813 (Given - Prov ider: Paola Garcia RN) 0838 (Given - Provider: Paola Garcia RN) 0833 (Giv en - Provider: Sonia Rodgers RN) 20 mg, Oral, DAILY, First dose on Jessica 20 at 0900, Until Discontinued, Routine carboxymethylcellulose (REFRESH PLUS) 0.5 % ophthalmic drops 2 drop 1355 (Given - Provider: Paola Garcia, CONNOR)1834 (Given - Provider: Danika Tolbert, RN)212 (Given - Provider: Helio Falcon, CONNOR) 0839 (Given - Provider: Paola Garcia, CONNOR)1337 (Given - Provider: Paola Garcia, CONNOR)181 (Given - Provider: Paola Garcia, CONNOR)2034 (Given - Provider: Pita Bradley RN) 0844 (Given - Provider: Sonia Rodgers RN) 2 drop, Both Eyes, 4 TIMES DAILY, First dose (after last modification) on Tue02/24/20 at 1300, Until Discontinued, Routine clindamycin (Cleocin) 600 mg in dextrose 5% 50 mL infu griselda (COMPLETED) 0604 (New Bag - Provider: Helio Falcon, CONNOR)0624 (Stopped - Provider: Helio Falcon, CONNOR)1355 (New Bag - Provider: Paola Garcia RN)1415 (Stopped - Provider: Paola Garcia, CONNOR)2127 (New Bag - Provider: Helio Falcon, CONNOR) 0639 (New Bag - Provider: Helio Falcon, CONNOR)0659 (Stopped - Provider: Helio Falcon, CONNOR)1337 (New Bag - Provider: Paola Garcia, CONNOR)1357 (Stopped - Provider: Paola Garcia, CONNOR) 600 mg, Intravenous, EVERY 8 HOURS, 15 d oses, First dose on Tue02/20/20 at 2200, Last dose on Tue02/25/20 at 1400, Administer over 20 Minutes, Indication for (Active or Suspected): Prophylaxis 2147 (Stopped - Provider: Helio Falcon, CONNOR) enoxaparin (Lovenox) (40 mg/0.4 mL) subcutaneous injec tion 40 mg 2127 (Given - Provider: Helio Falcno, CONNOR) 2034 (Given - Provider: Pita dozier RN) 40 mg, Subcutaneous, NIGHTLY, First dose on Jessica 02/21/20 at 2100, Until Discontinued, Routine fenofibrate micronized (Lofibra) capsule 200 mg 0814 ( Given - Provider: Paola Garcia RN) 0839 (Given - Provider: Paola Garcia RN) 0833 (Giv en - Provider: Sonia Rodgers RN) 200 mg, Oral, DAILY WITH BREAKFAST, Firs t dose on Jessica 02/21/20 at 0800, Until Discontinued ibuprofen (Advil;Motrin) tablet 600 mg 0420 (Given - P rovider: Helio Falcon RN)0813 (Given - Provider: Paola Garcia RN)1543 (Given - Provider: Paola Garcia RN)2127 (Given - Provider: Helio Falcon, CONNOR) 022 (Given - Provider: Helio Falcon, CONNOR)0838 (Given - Provider: Paola Garcia RN)151 (Given - Provider: Paola Garcia RN)2035 (Given - Provider: Pita Bradley RN) 040 (Given - Provider: Pita dozier RN)0831 (Given - Provider: Sonia Rodgers RN) 600 mg, Oral, EVERY 6 HOURS, First dose on Jessica 02/21/20 at 0300, Until Discontinued, Administer orally with milk or food to minimize GI irritation. Maximum dose of 3200 mg from all sources in 24 hours, Routine lactobacillus with pectin capsule 1 capsule 0813 (Give n - Provider: Paola Garcia RN) 0839 (Given - Provider: Paola Garcia RN) 0832 (Giv en - Provider: Sonia Rodgers RN) 1 capsule, Oral, DAILY, First dose on u 02/21/20 at 1400, Until Discontinued, Routine lamoTRIgine (LaMICtal) tablet 200 mg 0812 (Given - Pro vider: Paola Garcia RN)2125 (Given - Provider: Helio Falcon RN) 0839 (Given - Provider: Paola Garcia RN)2034 (Given - Provider: Pita Bradley RN) 0832 (Given - Provider: Sonia Rodgers RN) 200 mg, Oral, 2 TIMES DAILY, First dose on Jessica 02/21/20 at 0900, Until Discontinued, Routine metoprolol succinate XL (Toprol-XL) tablet 50 mg 0813 (Given - Provider: Paola Garcia RN) 0839 (Given - Provider: Paola Garcia RN) 0832 (Giv en - Provider: Sonia Rodgers, RN) 50 mg, Oral, DAILY, First dose on Jessica at 0900, Until Discontinued, DO NOT CRUSH OR OPEN, Routine polyethylene glycoL (Miralax) packet 17 g 09 (Not Gi santiago - Provider: Paola Garcia RN - Reason: Patient/family refused) 899 (Not Given - Provider: Paola Garcia RN - Reason: Patient/family refused) 09 (Not Given - Provider: Sonia Rodgers RN - Reason: Patient/family refused) 17 g, Per NG tube, DAILY, First dose on Tue02/21/20 at 0900, Until Discontinued, Routine sodium chloride 0.9 % (flush) flush 5 mL 814 (Given - Provider: Paola Garcia RN)2128 (Given - Provider: Helio Falcon, CONNOR) 08 (Given - Provider: Paola Garcia, CONNOR)2035 (Given - Provider: Pita Bradley, CONNOR) 0844 (Given - Provider: Sonia Rodgers, RN) 5 mL, Intravenous, 2 TIMES DAILY, First dose on Tue02/21/20 at 0900, Until Discontinued, Recovery (Recovery-Hospital Unit), Routine tamsulosin (Flomax) capsule 0.4 mg 0813 (Given - Provider: Tio Garcia RN) 0839 (Given - Provider: Paola Garcia, CONNOR) 0832 (Given - Provider: Sonia Rodgers, RN) 0.4 mg, Oral, DAILY, 7 doses, First dose on Tue02/22/20 at 0900, Last dose on Tue02/28/20 at 0900, DO NOT CRUSH OR OPEN, Routine PRN Medication Order 02/24/2020 02/25/2020 02/26/2020 bisacodyL (Dulcolax) suppository 10 mg 10 mg, Rectal, DAILY PRN, Starting Tue04/23/19 at 0202, Until Tue02/26/20 at 1252, Constipation, if no BM in 48 hours or per patient's routine, Administer if needed per patient's routine or if no bowel movement within 48 hours to achieve: 1) One bowel movement at least every 48 hours, AND 2) Without straining. If multiple bowel medications ordered, consider adding bisacodyl if polyethylene glycol (RUDY ALAX) or sennosides (SENOKOT) not sufficient., Routine carboxymethylcellulose (REFRESH PLUS) 0.5 % ophthalmic drops 1 drop (CANCELED) 0900 (Given - Provider: Paola Garcia, CONNOR) 1 drop, Both Eyes, 3 TIMES DAILY PRN, St arting 02/22/20 at 1743, Until 02/24/20 at 0913, Dry Eyes, Routine HYDROmorphone (Dilaudid) tablet 2 mg(Linked Group 1) 0 604 (Given - Provider: Helio Falcon RN)1543 (Given - Provider: Paola Garcia RN) 0224 (Given - Provider: Helio Falcon RN)1003 (Given - Provider: Darryl Muller, CONNOR) 0444 (Given - Provider: Pita dozier RN) 2 mg, Oral, EVERY 3 HOURS PRN, Starting Jessica 12 at 1145, Until 02/26/20 at 1252, Pain, for mild pain (1-3), May give an additional 2 mg once if pain not relieved in 30-60 minutes., Routine HYDROmorphone (Dilaudid) tablet 4 mg(Linked Group 1) 0 604 (See Alternative - Provider: Helio Falcon RN)1543 (See Alternative - Provider: Paola Garcia RN) 0224 (See Alternative - Provider: Stepan Falcon, CONNOR)1003 (See Alternative - Provider: Darryl Muller RN) 0444 (See Alternative - Provider: Pita Bradley RN) 4 mg, Oral, EVERY 3 HOURS PRN, Starting Jessica 12 at 1145, Until 02/26/20 at 1252, Pain, for moderate pain (4-6), May give an additional 2 mg once if pain not relieved in 30-60 minutes., Routine HYDROmorphone (Dilaudid) tablet 6 mg(Linked Group 1) 0 604 (See Alternative - Provider: Helio Falcon, RN)1543 (See Alternative - Provider: Paola Garcia, CONNOR) 0224 (See Alternative - Provider: Stepan Falcon, CONNOR)1003 (See Alternative - Provider: Darryl Muller, RN) 0444 (See Alternative - Provider: Pita Bradley, RN) 6 mg, Oral, EVERY 3 HOURS PRN, Starting Jessica 1220 at 1145, Until Tue 12 at 1252, Pain, for severe pain (7-10), May give an additional 2 mg once if pain not relieved in 30-60 minutes., Routine lidocaine (XYLOCAINE) 10 mg/mL (1 %) injection 3 mg 3 mg (0.3 mL), Subcutaneous, ONCE PRN, 1 dose, Starting Jessica 1220 at 0202, Until Tue 12 at 1252, for discomfort with PIV insertion, Recovery (Recovery-Hospital Unit), Routine nitroGLYcerin (Nitrostat) disintegrating tablet 0.4 mg 0.4 mg, Sublingual, EVERY 5 MIN PRN, Sta rting Jessica 12//20 at 0202, Until Tue 12 at 1252, Chest pain, SL nitroglycerin may be repeated every 5 minutes as needed up to 3 doses, Routine prochlorperazine (Compazine) (5 mg/mL) injection 10 mg (Linked Group 2) 0002 (Given - Provider: Rita Hodgson RN) 10 mg, Intravenous, EVERY 6 HOURS PRN, S tarting Jessica 12/3/20 at 1207, Until Tue 1220 at 1252, Nausea, Routine prochlorperazine (Compazine) tablet 10 mg(Linked Group 2) 0002 (See Alternative - Provider: Rita Hodgson RN) 10 mg, Oral, EVERY 6 HOURS PRN, Starting Jessica 12/3/20 at 1207, Until Tue 1220 at 1252, Nausea, Maximum dose: 50 mg / 24 hrs, Routine sennosides (Senokot) (1.76 mg/mL) oral liquid 8.8 mg 8.8 mg, Oral, 2 TIMES DAILY PRN, Startin g Jessica 12 at 0202, Until Tue 12 at 1252, Constipation, if no BM in 48 hours or per patient's routine, Administer if needed per patient's routine or if no bowel movement within 48 hours to achie ve: 1) One bowel movement at least every 48 hours, AND 2) Without straining. If multiple bowel medications ordered, consider adding sennosides (SENOKOT) if polyethylene glycol (MIRALAX) not sufficient., Routine sodium chloride 0.9 % (flush) flush 5-20 mL 5-20 mL, Intravenous, EVERY 1 MIN PRN, S tarting Jessica 12 at 0202, Until Tue 12 at 1252, flush, Flush pertains to all indwelling lines. Flush per protocol found in the job aid using the link prov ided on this medication record., Recovery (Recovery-Hospital Uni t), Routine Linked Groups Order Group 1: HYDROmorphone (Dilaudid) tablet 2 mgJump to med 2 mg, Oral, EVERY 3 HOURS PRN, Starting Jessica 12 at 1145, Until Tue 12 at 1252, Pain, for mild pain (1-3)
May give an additional 2 mg once if pain not relieved in 30-60 minutes.
Routine Or HYDROmorphone (Dilaudid) tablet 4 mgJump to med 4 mg, Oral, EVERY 3 HOURS PRN, Starting Jessica 12/20 at 1145, Until Tue 12 at 1252, Pain, for moderate pain (4-6)
May give an additional 2 mg once if pain not relieved in 30-60 minutes.
Routine Or HYDROmorphone (Dilaudid) tablet 6 mgJump to med 6 mg, Oral, EVERY 3 HOURS PRN, Starting Jessica 12/3/20 at 1145, Until Tue 12/20 at 1252, Pain, for severe pain (7-10)
May give an additional 2 mg once if pain not relieved in 30-60 minutes.
Routine Group 2: prochlorperazine (Compazine) (5 mg/mL) injection 10 mgJump to med 10 mg, Intravenous, EVERY 6 HOURS PRN, S tarting Jessica 02/21/20 at 1207, Until Tu02/26/20 at 1252, Nausea, Routine Or prochlorperazine (Compazine) tablet 10 mgJump to med 10 mg, Oral, EVERY 6 HOURS PRN, Starting Jessica 02/21/20 at 1207, Until Tue02/26/20 at 1252, Nausea
Maximum dose: 50 mg / 24 hrs
Routine documented in this encounter Care Teams Graphics Coordinator Relationship Specialty Start Date End Date Tara Joya MD PCP - General Family Medicine 05/16/[address] [place] [address] documented as of this encounter
--- OUTSIDE RECORDS SUMMARY | 2021-10-21 08:01 | XMS_ITS | Encounter Summary ---
:1950 Author Organization [facility] [place] [address] Care Team Providers Name Role Phone Tara Joya MD Primary Care Provider [phone] Encounter Details Date Type Department Care Team Description 03/06/2020 Multidisciplinary Care Otolaryngology Caio Ewing [facility] MD Aracely [facility] [id number] OTOLARYNGOLGY [phone] [place] [id number] Social History Tobacco Use Types Packs/Day Years Used Date Former Smoker Cigarettes 1 40 Quit: 01/09/20 03 Smokeless Tobacco: Never Used Alcohol Use Standard Drinks/Week Comments No 0 (1 standard drink = 0.6 oz pure alcoho l) Sex Assigned at Date Recorded Not on file documented as of this encounter Progress Notes Aracely Ewing MD - 03/06/2020 11:59 PM EST Images from the original note were not included. Head and Neck Tumor Board Note Site/Stage [id number] Left parotid with invasion to left ear and ear canal. Synopsis with pertinent exam findings 69 y.o.??male with PMH of left face/pre auricular skin cancers, Hepatitis C, who developed a rapidly growing mass in the left parotid, invading the left ear canal in November 2019. Pain w/ chewing, significant hearing loss. No facial weakness. Biopsy at [facility] performed concerning for malignancy (records unavailable). Biopsy obtained 01/31/2020 at [facility] of left ear canal showed moderately differentiated SCCa, associated with ulcer exudate/necrosis. Patient is now s/p s/p parotidectomy, temporal bone resection, partial auriculectomy, neck dissection, pectoralis flap reconstruction on 02/20/2020. Pathology ??Surgical Pathology - 02/20/2020 DIAGNOSIS A - Left tissue against the [...] H - Deep lobe parotid Left, excision: [id number]? - Squamous cell carcinoma, extensively involving fibrous soft tissue and large ?veins. ? - Carcinoma extends to specimen tissue edges. ? - The clipped vascular margin is negative for tumor. SYNOPTIC SQUAMOUS CELL CARCINOMA OF SKIN OF [...] invasion present ?Perineural invasion: ??Present: ??(focal) Margins SYNOPTIC ?Margins: ??Cannot be assessed - see discussion Lymph Nodes ?Number of Lymph Nodes Involved: ??1 ?Extranodal Extension: ??Present ?Number of Lymph Nodes Examined: ??38 Stage ?Primary Tumor (pT): ??pT4a (Tumor with gross cortical bone/marrow invasion) ?Regional Lymph Nodes (pN): ??pN3b ?? (Metastasis in any node(s) with EDILBERTO) DISCUSSION Clinical/surgical correlation is needed to determine relationship of separately submitted margins/tissues. Carcinoma involves soft tissue margins of the main specimen (Part G) as well as the deep lobe of parotid speciment margins (Part H). Per discussion with pathology, this likely represents a skin primary. Imaging Pre operative CT Temporal bone scan (02/12/2020): Large enhancing mixed cystic and solid mass [...] fat in the stylomastoid foramen is preserved. ??No expansion of the facial nerve canal to suggest chronicre modeling. ??No underlying osseous erosion or periosteal reaction. ??No soft tissue extension into the middle ear. The ossicular chain is displaced medially but appears intact. Partial effusion of the mastoid air cells. Normal morphology of the inner ear structures. Pre operative PET scan (02/12/2020): ghly FDG avid lobulated mass involving the left parotid gland and external auditory canal, c/w with biopsy proven SCC. No FDG avid regional delmer or suspected distant metastasis identified. Tumor Board Recs Recommend adjuvant radiation therapy. Additionally, given severity of disease, discussion with patient is recommended in regards to undergoing chemotherapy as well. Plan for patient follow up with hem/onc and radiation oncology. * (Based on past studies and the information available at the time of presentation) Specific treatment to be undertaken must ultimaly be determined on an individual basis by the patient and those invoved in her/his treatment) documented in this encounter Plan of Treatment Upcoming Encounters Date Type Specialty Care Team Description 10/21/2021 Infusion Hematology and Oncology 11/09/2021 Office Visit Hematology and Oncology Alhaji Ritchie MD [facility] DR ONCOLOGY DEPT. [place], [place] [address] (Wo rk) 11/09/2021 Infusion Hematology and Oncology 12/10/2021 Office Visit Dermatology Silas Walters MD [address] [place] [address] DERMATOLOGY [place], [place] [address] (Wo rk) 09/19/2039 Hospital Encounter Surgery Osman Barnett MD [facility] OTOLARYNGOLOGY D EPT. [place], [place] [address] (Wo rk) Scheduled Procedures Name [...] on filedocumented in this encounter Care Teams Book Cleaner Relationship Specialty Start Date End Date Tara Joya MD PCP - General Family Medicine 05/16/[address] [place] [address] documented as of this encounter
--- OUTSIDE RECORDS SUMMARY | 2021-10-21 08:01 | XMS_ITS | Encounter Summary ---
:1950 Author Organization [facility] Address [facility] [place] [address] Care Team Providers Name Role Phone Tara Joya MD Primary Care Provider [phone] Encounter Details Date Type Department Care Team Description 03/07/2020 Telephone Otolaryngology at [facility] Aline Santiago, [facility] [place] [address] Social History Tobacco Use Types Packs/Day Years Used Date Former Smoker Cigarettes 1 40 Quit: 01/09/20 03 Smokeless Tobacco: Never Used Alcohol Use Standard Drinks/Week Comments No 0 (1 standard drink = 0.6 oz pure alcoho l) Sex Assigned at Date Recorded Not on file documented as of this encounter Miscellaneous Notes Telephone Encounter - Aline Santiago, RN - 03/07/2020 9:48 AM EST Patient's called with a few concerns. She is mostly concerned about whether complete pathology has returned as when they were here on 02/28/20 the complete pathology was not back and they have notheard from anyone regarding this. She states that they are scheduled to see Radiation Oncology and Chemo oncology next week in [facility], first appointment is Tuesday and she is concerned that if they do not have complete pathology they will not be able to really come up with a plan. Advised that this concern would be forwarded to his providers so that we can see where things stand with the pathology. Next concern is that he has not started home PT and OT and she wondered if the orders for this had been sent to [facility]. He as been receiving home nursing, bit they are telling her that they need orders for PT and OT. Advised that the referral that was sent when he was discharged were for all 3 services and the orders are contained within the referral. She will call them to discuss and I will fax the referral again with a note that all needed orders are contained in the referral/ The also states that the patient has been having some bleeding at night from the top part of the ear. She states that has been on and off since the surgery and she is not sure what to do about it and if it needs stitches. She will take a picture of the area and send ith through [facility] so that it can be assessed. Message to be sent to Dr Barnett for review. They will be called back with an update when available. is agreeable to this plan. She really just wants to be sure that the pathology is back so that the doctor they see on Tuesday can access it. documented in this encounter Plan of Treatment Upcoming Encounters Date Type Specialty Care Team Description 10/21/2021 Infusion Hematology and Oncology 11/09/2021 Office Visit Hematology and Oncology Alhaji Ritchie MD [facility] DR ONCOLOGY DEPT. [place], [place] [address] (Jin carson) 11/09/2021 Infusion Hematology and Oncology 12/10/2021 Office Visit Dermatology Silas Walters MD [address] [place] [address] DERMATOLOGY [place], [place] [address] (Jin carson) 09/19/2039 Hospital Encounter Surgery Osman Barnett MD [facility] OTOLARYNGOLOGY D EPT. [place], [place] [address] (Jin carson) Scheduled Procedures Name [...] on filedocumented in this encounter Care Teams Shift Engineer Relationship Specialty Start Date End Date Tara Joya MD PCP - General Family Medicine 05/16/[address] [address] documented as of this encounter
--- OUTSIDE RECORDS SUMMARY | 2021-10-21 08:01 | XMS_ITS | Encounter Summary ---
:1950 Author Organization [facility] Address [facility] [address] [place] [address] Care Team Providers Name Role Phone Tara Joya MD Primary Care Provider [phone] Reason for Visit Reason Onset Date Comments Other 03/12/2020 [facility] - 03/18/20 @ 12: 00 asked pt to call an confirm. Encounter Details Date Type Department Care Team Description 03/12/2020 [facility] - 03/18/20 @ [facility] 12:00 asked pt to call [address] [place] [address] Drive an confirm[place] [address] Social History Tobacco Use Types [...] [facility] DR ONCOLOGY DEPT. [place], [place] [address] (Jin carson) 11/09/2021 Infusion Hematology and Oncology 12/10/2021 Office Visit Dermatology Silas Walters MD [address] [facility] DERMATOLOGY [place], [place] [address] (Jin carson) 09/19/2039 Hospital Encounter Surgery Osman Barnett MD [facility] OTOLARYNGOLOGMelvin Su EPT. [place], [place] [address] (Wo rk) Scheduled Procedures Name [...] filedocumented in this encounter Care Teams Manager [place] Relationship Specialty Start Date End Date Tara Joya MD PCP - General Family Medicine 05/16/[address] [place] [address] documented as of this encounter
--- OUTSIDE RECORDS SUMMARY | 2021-10-21 08:01 | XMS_ITS | Encounter Summary ---
:1950 Author Organization [facility] [place] [address] Care Team Providers Name Role Phone Tara Joya MD Primary Care Provider [phone] Encounter Details Date Type Department Care Team Description 03/10/2020 Orders Only Otolaryngology at [facility] Osman Barnett, [facility] [place] [address] [facility] [phone] OTOLARYNGOLOGY D EPT. [place], [place] [address] (Jin carson) Social History Tobacco Use Types Packs/Day Years [...] Visit Hematology and Oncology Alhaji Ritchie MD [facility] ONCOLOGY DEPT. [place], [place] [address] (Jin carson) 11/09/2021 Infusion Hematology and Oncology 12/10/2021 Office Visit Dermatology Silas Walters MD [address] [place] [address] DERMATOLOGY [place], [place] [address] (Jin carson) 09/19/2039 Hospital Encounter Surgery Osman Barnett MD [facility] OTOLARYNGOLOGMelvin Su EPT. [place], [place] [address] (Wo rk) Scheduled Procedures Name [...] on filedocumented in this encounter Care Teams Sound Effects Person Relationship Specialty Start Date End Date Tara Joya MD PCP - General Family Medicine 05/16/[address] [place] [address] documented as of this encounter
--- OUTSIDE RECORDS SUMMARY | 2021-10-21 08:01 | XMS_ITS | Encounter Summary ---
:1950 Author Organization [facility] [place] [address] Care Team Providers Name Role Phone Tara Joya MD Primary Care Provider [phone] Encounter Details Date Type Department Care Team Description 03/10/2020 Telephone Hematology [place]cology [place] [address] Social History Tobacco Use Types Packs/Day Years Used Date Former Smoker Cigarettes 1 40 Quit: 01/09/20 03 Smokeless Tobacco: Never Used Alcohol Use Standard Drinks/Week Comments No 0 (1 standard drink = 0.6 oz pure alcoho l) Sex Assigned at Date Recorded Not on file documented as of this encounter Miscellaneous Notes Telephone Encounter - Wendy Beavers RN - 03/10/2020 6:10 PM EST Received VM message at 16:00 from CONNOR Wilson, from [facility] ([phone]). Steve reported that Ward has dehiscence of the incision behind/below the left ear that he discovered this afternoon. Steve states wound size is 0.5 cm by 1 cm. Undermining 3.5 cm at 6-o'clock and undermining 0.75 cm at 12 o'clock. Steve used plain packing to pack the wound and covered with gauze; he would like to either have verification of this wound care plan or new orders for an alternate plan. Called Ward and spoke with spouse, Nika. She confirms that this wound is not the area of concern listed in Dr. Ritchie' note from today; per Chau Maher only looked at the swelling under the jowl area. Informed her that I will relay to the [facility] nurse that he should contact Dr. Barnett's office for wound care orders. Informed her that I would also relay concerns to ENT. Nika appreciative and verbalized good understanding of plan. documented in this encounter Plan of Treatment Upcoming Encounters Date Type Specialty Care Team Description 10/21/2021 Infusion Hematology and Oncology 11/09/2021 Office Visit Hematology and Oncology Alhaji Ritchie MD [facility] DR ONCOLOGY DEPT. [place], [place] [address] (Wo rk) 11/09/2021 Infusion Hematology and Oncology 12/10/2021 Office Visit Dermatology Silas Walters MD [address] [facility] DERMATOLOGY [place], [place] [address] (Wo rk) 09/19/2039 Hospital Encounter Surgery Osman Barnett MD [facility] OTOLARYNGOLOGY D EPT. [place], [place] [address] (Jin rk) Scheduled Procedures Name [...] on filedocumented in this encounter Care Teams Family Preservation Caseworker Relationship Specialty Start Date End Date Tara Joya MD PCP - General Family Medicine 05/16/[address] [place] [address] documented as of this encounter
--- OUTSIDE RECORDS SUMMARY | 2021-10-21 08:02 | XMS_ITS | Encounter Summary ---
:1950 Author Organization [facility] [place] [address] Care Team Providers Name Role Phone Tara Joya MD Primary Care Provider [phone] Reason for Referral Diagnostic Test (Routine) - Closed Specialty Diagnoses / Procedures Referred By Contact Refer red To Contact Radiology Diagnoses Head mass Osman Barnett MD [facility] Rad Nuclear Med Procedures NM PET CT Standard Plus Head and Neck [facility] [place] [address] [place] [address] Referral ID Status Reason Start Date Expiration Date Visits V isits Requested Authorized [id number] Closed Specialty 02/07/2020 03/23/2020 1 1 Service Requested Encounter Details Date Type Department Care Team Description 01/31/2020 Orders Only Otolaryngology at [facility] Lisa Razo Head mass (Primary [facility] Sharlene Espino RN Dx) [place] [address] Social History Tobacco Use Types Packs/Day [...] [facility] DR ONCOLOGY DEPT. [place], [place] [address] (Wo rk) 11/09/2021 Infusion Hematology and Oncology 12/10/2021 Office Visit Dermatology Silas Walters MD [address] DERMATOLOGY [place], [place] [address] (Wo rk) 09/19/2039 Hospital Encounter Surgery Osman Barnett MD [facility] OTOLARYNGOLOGY D EPT. [place], [place] [address] (Wo rk) Scheduled Procedures Name [...] sequela documented as of this encounter Results NM PET CT Standard Plus Head and Neck (02/12/2020 2:33 PM EST) Anatomical Region Laterality Modality Positron Emission To mography (PET) Specimen (Source) Anatomical Location Collection Method / Collectio n Time Received Time / Laterality Volume Impressions 02/12/2020 5:12 PM EST 1. ??Highly FDG avid lobulated mass involving the left parotid gland and external auditory canal, consistent with known bi opsy proven squamous cell malignancy. No FDG avid regional delmer or suspected dis tant metastasis identified. 2. ??Small cutaneous/subcutaneous FDG av id focus in the lateral left mid back, indeterminate for an inflammatory or shantel plastic lesion. Please correlate clinically. 3. ??Likely posttraumatic healing left f ifth and sixth rib fractures as above I have personally reviewed the image(s) and the resident's interpretation and agree with the findings, Meli Richards MD at 02/12/2020 5:12 PM Thank you for letting us participate in the care of this patient. For questions regarding this report, please contact e number below. ? Narrative 02/12/2020 5:12 PM EST EXAMINATION: NM PET CT STANDARD PLUS HEAD AND NECK CLINICAL HISTORY: large mass involving l eft ear and face TECHNIQUE: Following IV injection of 18- keqwbm-1-jrkwhxdfyigk (FDG) a standard uptake of approximately 60 minutes, a no ncontrast CT scan followed by a PET scan were acquired from the top of head to mi d thighs. The noncontrast CT was used for anatomic localization and photon att enuation correction of the PET scan. No enteric contrast was administered. Blood glucose level: 153 (mg/dL) FDG dose: 11.5 mCi COMPARISON: CT temporal bone 02/12/2020 MRI neck, orbit, face from outside insti tution 01/11/2020 FINDINGS: HEAD/NECK: Intensely FDG avid lobulated solid mass with punctate calcification involving the left parotid gland and external aniceto tory canal measuring approximately 5.7 x 6.1 in axial diameter (axial image 57) N ormal activity throughout the remainder the head/neck. CHEST: Small cutaneous/subcutaneous FDG avid fo cus in the lateral left mid back (axial image 161) at the T9 level. Normal activity in all other soft tissue regions. Mitral annular calcifications and calcif ied atherosclerosis of the coronary arteries and aortic arch. ABDOMEN/PELVIS: Normal activity in all soft tissue regio ns. Excreted contrast is present in nondilat ed bilateral collecting systems and urinary bladder from earlier contrast-en hanced CT. Focal calcification in the left hepatic lobe. Calcified atheroscler osis of the distal aorta and common iliac arteries. Sigmoid and descending c olonic diverticulosis without diverticulitis. SKELETON/EXTREMITIES: Healing FDG avid left lateral sixth rib fracture without underlying pathologic lesion identified on CT. 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 Normal marrow activity in all other rachel ons of the axial and visualized appendicular skeleton. CT visualized hea ling non-FDG avid left anterolateral fifth rib fracture. Procedure Note Meli Richards MD - 02/12/2020Formatt ing of this note might be different from the original. EXAMINATION: NM PET CT STANDARD PLUS HEA D AND NECK CLINICAL HISTORY: large mass involving l eft ear and face TECHNIQUE: Following IV injection of 18- hadxwj-6-kmbrbyhjximj (FDG) a standard uptake of approximately 60 minutes, a no ncontrast CT scan followed by a PET scan were acquired from the top of head to mi d thighs. The noncontrast CT was used for anatomic localization and photon att enuation correction of the PET scan. No enteric contrast was administered. Blood glucose level: 153 (mg/dL) FDG dose: 11.5 mCi COMPARISON: CT temporal bone 02/12/2020 MRI neck, orbit, face from outside insti tution 01/11/2020 FINDINGS: HEAD/NECK: Intensely FDG avid lobulated solid mass with punctate calcification involving the left parotid gland and external aniceto tory canal measuring approximately 5.7 x 6.1 in axial diameter (axial image 57) N ormal activity throughout the remainder the head/neck. CHEST: Small cutaneous/subcutaneous FDG avid fo cus in the lateral left mid back (axial image 161) at the T9 level. Normal activity in all other soft tissue regions. Mitral annular calcifications and calcif ied atherosclerosis of the coronary arteries and aortic arch. ABDOMEN/PELVIS: Normal activity in all soft tissue regio ns. Excreted contrast is present in nondilat ed bilateral collecting systems and urinary bladder from earlier contrast-en hanced CT. Focal calcification in the left hepatic lobe. Calcified atheroscler osis of the distal aorta and common iliac arteries. Sigmoid and descending c olonic diverticulosis without diverticulitis. SKELETON/EXTREMITIES: Healing FDG avid left lateral sixth rib fracture without underlying pathologic lesion identified on CT. 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 Normal marrow activity in all other rachel ons of the axial and visualized appendicular skeleton. CT visualized hea ling non-FDG avid left anterolateral fifth rib fracture. IMPRESSION 1. Highly FDG avid lobulated mass involv ing the left parotid gland and external auditory canal, consistent with known bi opsy proven squamous cell malignancy. No FDG avid regional delmer or suspected dis tant metastasis identified. 2. Small cutaneous/subcutaneous FDG avid focus in the lateral left mid back, indeterminate for an inflammatory or shantel plastic lesion. Please correlate clinically. 3. Likely posttraumatic healing left fif th and sixth rib fractures as above I have personally reviewed the image(s) and the resident's interpretation and agree with the findings, Meli Richards MD at 02/12/2020 5:12 PM Thank you for letting us participate in the care of this patient. For questions regarding this report, please contact e number below. Osman Barnett MD IMG PET ORDERABLES documented in this encounter Visit Diagnoses Diagnosis Head mass - Primary Swelling, mass, or lump in head and neck Head mass Swelling, mass, or lump in head and neck documented in this encounter Care Teams Technology And Engineering Teacher Relationship Specialty Start Date End Date Tara Joya MD PCP - General Family Medicine 05/16/[address] [place] [address] documented as of this encounter
--- OUTSIDE RECORDS SUMMARY | 2021-10-21 08:02 | XMS_ITS | Encounter Summary ---
:1950 Author Organization [facility] Address [facility] [place] [address] Care Team Providers Name Role Phone Tara Joya MD Primary Care Provider [phone] Reason for Visit Reason Onset Date Comments Medication Refill 02/11/2020 Encounter Details Date Type Department Care Team Description 02/11/2020 Refill Otolaryngology at [facility] Linda Renee PA Parotid mass; [facility] D rive [facility] History of SCC (squamous yuliana [place] carcinoma) [place] [address] [address] [phone] [place], [place] [address] (Wo rk) Social History Tobacco Use Types Packs/Day Years Used Date Former Smoker Cigarettes 1 40 Quit: 01/09/20 03 Smokeless Tobacco: Never Used Alcohol Use Standard Drinks/Week Comments No 0 (1 standard drink = 0.6 oz pure alcoho l) Sex Assigned at Date Recorded Not on file documented as of this encounter Miscellaneous Notes Telephone Encounter - Linda Renee PA - 02/11/2020 4:06 PM EST Mr. Santamaria was contacted on the phone regarding ongoing pain. He notes that he is taking a lot of advil for his pain and is still having break through pain. He was previously prescribed hydrocodone-acetaminophen which he has used sparingly for pain with success. We discussed the risks of opioid use on the phone. He will sign an opioid consent form next time he is in the office. documented in this encounter Plan of Treatment Upcoming Encounters Date Type Specialty Care Team Description 10/21/2021 Infusion Hematology and Oncology 11/09/2021 Office Visit Hematology and Oncology Alhaji Ritchie MD [facility] DR ONCOLOGY DEPT. [place], [place] [address] (Wo rk) 11/09/2021 Infusion Hematology and Oncology 12/10/2021 Office Visit Dermatology Silas Walters MD [address] DERMATOLOGY [place], [place] [address] (Wo rk) 09/19/2039 Hospital Encounter Surgery Osman Barnett MD [facility] OTOLARYNGOLOGY D EPT. [place], [place] [address] (Wo rk) Scheduled Procedures Name [...] mass, or lump in head and neck History of SCC (squamous cell carcinoma) of skin Personal history of other malignant neop lasm of skin documented in this encounter Care Teams Developer Automatic Relationship Specialty Start Date End Date Tara Joya MD PCP - General Family Medicine 05/16/[address] [place] [address] documented as of this encounter
--- OUTSIDE RECORDS SUMMARY | 2021-10-21 08:02 | XMS_ITS | Encounter Summary ---
:1950 Author Organization [place] [address] Care Team Providers Name Role Phone Tara Joya MD Primary Care Provider [phone] Encounter Details Date Type Department Care Team Description 02/15/2020 Telephone Otolaryngology at [facility] [place] [address] Social History Tobacco Use Types Packs/Day Years Used Date Former Smoker Cigarettes 1 40 Quit: 01/09/20 03 Smokeless Tobacco: Never Used Alcohol Use Standard Drinks/Week Comments No 0 (1 standard drink = 0.6 oz pure alcoho l) Sex Assigned at Date Recorded Not on file documented as of this encounter Miscellaneous Notes Telephone Encounter - Radha Baca RN - 02/15/2020 11:35 AM EST 's call returned. would like further clarification of which medication patient should stop prior to surgery. Instructed patient should hold blood thinner, ASA 81mg; this should be stoppedtoday. voices understanding and acceptance of this advice and will call back if any further questions or concerns. also requests she be called on her cell phone in the future as it's very difficult for patient to hear. documented in this encounter Plan of Treatment Upcoming Encounters Date Type Specialty Care Team Description 10/21/2021 Infusion Hematology and Oncology 11/09/2021 Office Visit Hematology and Oncology Alhaji Ritchie MD [facility] DR ONCOLOGY DEPT. [place], [place] [address] (Wo rk) 11/09/2021 Infusion Hematology and Oncology 12/10/2021 Office Visit Dermatology Silas Walters MD [address] DERMATOLOGY [place], [place] [address] (Wo rk) 09/19/2039 Hospital Encounter Surgery Osman Barnett MD [facility] OTOLARYNGOLOGY D EPT. [place], [place] [address] (Wo rk) Scheduled Procedures Name [...] on filedocumented in this encounter Care Teams Last Trimmer Relationship Specialty Start Date End Date Tara Joya MD PCP - General Family Medicine 05/16/[address] [place] [address] documented as of this encounter
--- OUTSIDE RECORDS SUMMARY | 2021-10-21 08:02 | XMS_ITS | Encounter Summary ---
:1950 [place] [address] Care Team Providers Name Role Phone Tara Joya MD Primary Care Provider [phone] Encounter Details Date Type Department Care Team Description 01/31/2020 Notes Only Otolaryngology at [facility] Neo Gilman MD [facility] [place] [address] OTOLARYNGOLOGY [phone] [place], [place] [address] (Wo rk) Social History Tobacco Use Types Packs/Day Years Used Date Former Smoker Cigarettes 1 40 Quit: 01/09/20 03 Smokeless Tobacco: Never Used Alcohol Use Standard Drinks/Week Comments No 0 (1 standard drink = 0.6 oz pure alcoho l) Sex Assigned at Date Recorded Not on file documented as of this encounter Progress Notes Neo Gilman MD - 01/31/2020 4:00 PM EST [facility] Otolaryngology - Head and Neck Surgery Neo iGlman MD 02/03/20 1:49 PM [place], [place] [address] Office Patient Name: Ward Santamaria Date of : 1950 PCP: Tara Joya MD Chief Complaint: ear mass History of Present Illness: Ward Santamaria is a 69 y.o. year old male with a history of parotid malignancy who I was asked to see in consultation with Osman Barnett consequent to planned surgery and assessed need for concomitant temporal bone resection. Patient presenting with mass in the left parotid and involving the left ear. This developed in November. Per patient and his , onset and progression have been relatively rapid. Reports pain with chewing and is aware of some modest dental malocclusion. He has been aware of an approximate 2 month history of subjective hearing decline in this left ear. No tara otorrhea. Denies limiting tinnitus. Denies facial weakness or hemifacial spasm. Denies any significant dizziness or vertigo. Denies history of recurrent ear infection, chronic ear complaints, or prior ear surgery. 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 Was seen by Dr. Barahona and had a biopsy of this mass performed. The specimen was sent to [facility] and per patient he was told it was concerning for malignancy. We do not have the report due to the [facility] EMR being down. The patient denies any facial weakness. He also had an MRI face to evaluate. 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 A repeat biopsy of the left ear canal and postauricular region was performed today by Dr. Barnett. ?? HN Risk Factors: Quit smoking 2000. Quit alcohol 1999. ?? PMH: Hepatitis C treated. Cardiac stent placement. ?? Audiogram obtained today is personally reviewed. Findings reveal a normal sloping to severe high-frequency sensorineural hearing loss on the right, with a moderate sloping to profound mixed hearing loss on the left with a maximal conductive hearing loss component. Speech reception interviewer thresholds at 10 dB for the right and 55 dB for the left. Word discrimination 100% at 80 dB for the right and 76% at 90 dB for the left. 10 point Review of Systems was normal except for pertinent positives and negatives included in the History of Present Illness. Past Medical and Surgical History Patient Active Problem List Diagnosis Code ??? [...] left ear H93.8X2 ??? Parotid mass K11.8 Current Outpatient Medications on File Prior to Visit Medication Sig Dispense Refill ??? clindamycin (CLEOCIN) 300 mg Capsule Take 300 mg by mouth 3 times daily. ??? ciprofloxacin (CILOXAN) 0.3 % Drops Place 5 mLs into both ears 2 times daily. ??? dexamethasone (DECADRON) 0.1 % Drops Place 5 drops into both ears daily. ??? triamcinolone (KENALOG) 0.1 % Cream APPLY CREAM TOPICALLY TO AFFECTED AREA FOR RASH THREE TIMES DAILY FOR UP TO 2 WEEKS ??? nitroGLYcerin (NITROSTAT) 0.4 mg Tablet, Sublingual ??? ABILIFY 15 mg Tablet Take 15 [...] facility-administered medications on file prior to visit. Allergies: Penicillins and Codeine phosphate Surgical History: Past Surgical History: Procedure Laterality Date ??? KIDNEY STONE SURGERY ??? PRO COLONOSCOPY, REMV LESN, SNARE N/A 07/07/2015 COLONOSCOPY, POLYPECTOMY, REMOVAL LESION BY SNARE performed by Jose Manuel Heller MD at [facility] ENDOSCOPY Family and Social History Family History: Family History Problem Relation Age of Onset ??? Other Father enlarged heart Social History: [place] [facility] [place] [address] Social History Socioeconomic History ??? Marital status: Spouse name: Not on file ??? Number of children: Not on file ??? Years of education: Not on file ??? Highest education level: Not on file Occupational History ??? Not on file Social Needs ??? Financial resource strain: Not on file ??? Food insecurity Worry: Not on file Inability: Not on file ??? Transportation needs Medical: Not on file Non-medical: Not on file Tobacco Use ??? Smoking status: Former Smoker Packs/day: 1.00 Years: 40.00 Pack years: 40.00 Types: Cigarettes Quit date: 01/08/2003 Years since quittin.0 ??? Smokeless tobacco: Never Used Substance and Sexual Activity ??? Alcohol use: No ??? Drug use: No ??? Sexual activity: Not on file Lifestyle ??? Physical activity Days per week: Not on file Minutes per session: Not on file ??? Stress: Not on file Relationships ??? Social connections Talks on phone: Not on file Gets together: Not on file Attends mormonism service: Not on file Active member of club or organization: Not on file Attends meetings of clubs or organizations: Not on file Relationship status: Not on file ??? Intimate partner violence Fear of current or ex partner: Not on file Emotionally abused: Not on file Physically abused: Not on file Forced sexual activity: Not on file Other Topics Concern ??? Not on file Social History Narrative ??? Not on file Physical Exam Temperature: Heart Rate: Blood Pressure: Respiratory Rate: SpO2: General: Alert and oriented. No acute distress. Head and Face: Head is normocephalic, atraumatic. Actinic changes. Facial resting tone symmetric. Eyes: Conjugate gaze, ocular motility intact bilaterally. No spontaneous or gaze evoked nystagmus. Neurologic: Cranial Nerves II-XII grossly intact and symmetric. Ears: External ear on left with obvious soft tissue tumor involving the lower preauricular region and lower auricle with infiltration of the meatus and external auditory canal, with tumor extension to the postauricular region. Examination on the right is unremarkable. See further otomicroscopic exam below. Tuning forks: De Leon lateralizes left; BC>AC left and AC>BC right. Nose: External nose is midline without deformity or lesion. Normal exam of the septum and turbinates. Oral: There are no visible or palpable buccal, gingival, lingual, or palatal lesions. The floor of mouth is soft and flat. Oropharynx: Normal exam of the tonsils, tonsillar fossa, soft palate, and posterior pharynx. Salivary: Normal exam of the parotid and submandibular glands. Hem/Lymph/Imm: Neck supple without cervical mass or lymphadenopathy. Skin: Skin survey of the head and neck is without concerning lesion. MSK: Normal neck range of motion. No trismus. Resp: Breathing comfortably without stridor or retractions. Normal respirations. CV: Normal carotid pulses. Psych: Normal mood and affect. Labs and Imaging Significant lab values are as follows: n/a I reviewed the following imaging studies: MRI face 01/11/2020. Outside read revealing an approximate 3.4 x 3.7 x 3.4 cm parotid mass invading the auricle inferiorly and abutting the external auditory canal. Possible parotid adenopathy. Procedures Ears examined and cleaned with aid of binocular microscopy. Right Ear: Auricle normal. External auditory canal clear. Drum is intact with normal mobility via pneumatic otoscopy. Middle ear is well aerated. Negative fistula test. Left Ear: Auricular mass as characterized above. External auditory canal with friable mass filling canal. Drum and middle ear not able to be visualized. ASSESSMENT & RECOMMENDATIONS Ward Santamaria is a 69 y.o. 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 Possible primary skin malignancy additionally considered. Patient has PET/CT and CT temporal bone pending. Examination findings and audiometric testing results discussed today with the patient and his spouse. We discussed therapeutic options to include surgical intervention with possible adjuvant therapy pending pathology. Patient has been scheduled for total parotidectomy, partial auriculectomy and neck dissection, with associated temporal bone resection and subsequent flap reconstruction. The nature of surgery and surgical risks were generally discussed already today by Dr. Barnett. Risks specific to temporal bone re section were additionally reviewed, to include risk of facial weakness or paralysis, anticipated maximal conductive hearing loss, possible further sensorineural hearing loss, tinnitus, dizziness, tastedisturbance, bleeding, pain, ear numbness, infection, injury to brain, CSF leak and anesthetic risks. All questions were answered. Patient is awaiting [facility] surgical scheduling. Patient verbally expressed understanding and was in agreement with the plan as outlined above. Our contact information was provided should any significant questions, concerns or problems arise prior toplanned surgery. Neo Gilman MD Otology / Neurotology Otolaryngology - Head & Neck Surgery 02/03/20 1:49 PM documented in this encounter Plan of Treatment Upcoming Encounters Date Type Specialty Care Team Description 10/21/2021 Infusion Hematology and Oncology 11/09/2021 Office Visit Hematology and Oncology Alhaji Ritchie MD [facility] DR ONCOLOGY DEPT. [place], [place] [address] (Wo rk) 11/09/2021 Infusion Hematology and Oncology 12/10/2021 Office Visit Dermatology Silas Walters MD [address] [place] [address] DERMATOLOGY [place], [place] [address] (Wo rk) 09/19/2039 Hospital Encounter Surgery Osman Barnett MD [facility] OTOLARYNGOLOGY D EPT. [place], [place] [address] (Wo rk) Scheduled Procedures Name [...] on filedocumented in this encounter Care Teams Maintenance Apprentice Relationship Specialty Start Date End Date Tara Joya MD PCP - General Family Medicine 05/16/[address] [place] [address] documented as of this encounter
--- OUTSIDE RECORDS SUMMARY | 2021-10-21 08:02 | XMS_ITS | Encounter Summary ---
:1950 Author Organization [facility] [place] [address] Care Team Providers Name Role Phone Tara Joya MD Primary Care Provider Reason for Visit Reason Comments Follow-up Skin Check Encounter Details Date Type Department Care Team Description 11/02/2018 Office Visit Dermatology at [facility], History of basal cell carcinoma; Nona ROMERO [place] (actinic keratosis) [address] [facility] [address] DERMATOLOGY [place], [place] [id number] [phone] Social History Tobacco Use Types Packs/Day Years Used Date Former Smoker Cigarettes 1.5 40 Quit: 01/09/20 03 Smokeless Tobacco: Never Used Alcohol Use Standard Drinks/Week Comments No 0 (1 standard drink = 0.6 oz pure alcoho l) Sex Assigned at Date Recorded Not on file documented as of this encounter Progress Notes [facility] MD - 11/02/2018 3:30 PM EDT Problem: 1. Yearly actinic check 2. 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 He has noted some new lesions of concern. Physical exam examination reveals 2 erythematous patches each a centimeter diameter on the left upper anterior chest are concerning for Mackey's disease. He is an excoriated papule about 6 m in diameteron the left preauricular cheek. He has extensive sun damage of the neck the face the dorsal hands and forearms. Fortunately there is no evidence of recurrent BCCA at the left antecubital fossa and examination of the face the neck the chest the back the hands the arms informs is benign. He has type II Barahona pigmentation. He has marked solar elastotic damage of his arms and neck and base of neck from photo exposure. The patient has 6 actinic keratoses on his face and arms Assessment and plan: Actinic keratoses facial and arms 1. LN 2 x 2 applied to each of 6 actinic keratoses. Rule out SCC versus BCCA's site A left preauricular cheek site B presternal chest 1. After obtaining informed patient consent, the sites were anesthetized and removed with shave C&D. After curettage site A measured 6 cm in diameter and site B 2 cm in diameter 2. Triple antibiotic ointment and bandage placed to both sites 3. Wound care instructions supplies given 4. Return to clinic in 1 year for repeat check. 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 No evidence of recurrence 2. Continue sun avoidance precautions which patient is attempting to follow. CC: Tara Joya MD documented in this encounter Plan of Treatment Upcoming Encounters Date Type Specialty Care Team Description 10/21/2021 Infusion Hematology and Oncology 11/09/2021 Office Visit Hematology and Oncology Alhaji Ritchie MD [facility] DR ONCOLOGY DEPT. [place], [place] [address] (Jin carson) 11/09/2021 Infusion Hematology and Oncology 12/10/2021 Office Visit Dermatology [facility]ters MD [address] [facility] DERMATOLOGY [place], [place] [address] (Jin carson) 09/19/2039 Hospital Encounter Surgery Osman Barnett MD [facility] OTOLARYNGOLOGY D EPT. [place], [place] [address] (Jin carson) Scheduled Procedures Name [...] keratosis documented in this encounter Care Teams Nurse Auditor Relationship Specialty Start Date End Date Tara Joya MD PCP - General Family Medicine 05/16/[address] [place] [address] documented as of this encounter
--- OUTSIDE RECORDS SUMMARY | 2021-10-21 08:02 | XMS_ITS | Encounter Summary ---
:1950 Author Organization [facility] [place] [address] Care Team Providers Name Role Phone Tara Joya MD Primary Care Provider [phone] Encounter Details Date Type Department Care Team Description 02/15/2020 Telephone Otolaryngology at [facility] Radha Baca RN [facility] [place] [address] Social History Tobacco Use Types Packs/Day Years Used Date Former Smoker Cigarettes 1 40 Quit: 01/09/20 03 Smokeless Tobacco: Never Used Alcohol Use Standard Drinks/Week Comments No 0 (1 standard drink = 0.6 oz pure alcoho l) Sex Assigned at Date Recorded Not on file documented as of this encounter Miscellaneous Notes Telephone Encounter - Radha Baca RN - 02/15/2020 9:53 AM EST MTCB re: Patient made aware they would need to be off all anticoagulants for 7 days prior to ENT surgery. Instructed patient to call back to ENT if this is not approved for further discussion with surgeon. Call back number left. documented in this encounter Plan of Treatment Upcoming Encounters Date Type Specialty Care Team Description 10/21/2021 Infusion Hematology and Oncology 11/09/2021 Office Visit Hematology and Oncology Alhaji Ritchie MD [facility] DR ONCOLOGY DEPT. [place], [place] [address] (Wo rk) 11/09/2021 Infusion Hematology and Oncology 12/10/2021 Office Visit Dermatology [facility] MD [address] [facility] [facility] DERMATOLOGY [place], [place] [address] (Wo rk) 09/19/2039 Hospital Encounter Surgery Osman Barnett MD [facility] OTOLARYNGOLOGY Sharlene EPT. [place], [place] [address] (Wo rk) Scheduled Procedures Name [...] on filedocumented in this encounter Care Teams Director Special Education Relationship Specialty Start Date End Date Tara Joya MD PCP - General Family Medicine 05/16/[address] [place] [address] documented as of this encounter
--- OUTSIDE RECORDS SUMMARY | 2021-10-21 08:02 | XMS_ITS | Encounter Summary ---
:1950 [place] [address] Care Team Providers Name Role Phone Tara Joya MD Primary Care Provider [phone] Encounter Details Date Type Department Care Team Description 02/15/2020 Telephone [facility] [place] [address] Social History Tobacco Use Types Packs/Day Years Used Date Former Smoker Cigarettes 1 40 Quit: 01/09/20 03 Smokeless Tobacco: Never Used Alcohol Use Standard Drinks/Week Comments No 0 (1 standard drink = 0.6 oz pure alcoho l) Sex Assigned at Date Recorded Not on file documented as of this encounter Miscellaneous Notes Telephone Encounter - Brandon Richards RN - 02/15/2020 2:55 PM EST Covid test will be ordered, printed out and Faxed to [place] for pre op testing Telephone Encounter - Caterina Noble - 02/15/2020 12:43 PM EST Pt wants to be tested in [place] for 02/19 procedure. Please fax order to [place] at [phone]. documented in this encounter Plan of Treatment Upcoming Encounters Date Type Specialty Care Team Description 10/21/2021 Infusion Hematology and Oncology 11/09/2021 Office Visit Hematology and Oncology Alhaji Ritchie MD [facility] DR ONCOLOGY DEPT. [place], [place] [address] (Wo rk) 11/09/2021 Infusion Hematology and Oncology 12/10/2021 Office Visit Dermatology [facility] MD [address] [facility] [address] DERMATOLOGY [place], [place] [address] (Wo rk) 09/19/2039 Hospital Encounter Surgery Osman Barnett MD [facility] OTOLARYNGOLOGY D EPT. [place], [place] [address] (Wo rk) Scheduled Procedures Name [...] as of this encounter Visit Diagnoses Diagnosis COVID-19 ruled out documented in this encounter Care Teams Occasional Caregiver Relationship Specialty Start Date End Date Tara Joya MD PCP - General Family Medicine 05/16/[address] [place] [address] documented as of this encounter
--- OUTSIDE RECORDS SUMMARY | 2021-10-21 08:02 | XMS_ITS | Encounter Summary ---
:1950 [place] [address] Care Team Providers Name Role Phone Tara Joya MD Primary Care Provider [phone] Reason for Visit Reason Onset Date Comments Medication Refill 02/19/2020 Encounter Details Date Type Department Care Team Description 02/19/2020 Refill Otolaryngology Enma Ragland MD [facility] [place] [address] OTOLARYNGOLGY DEPT [phone] [place], [place] [address] (Jin carson) Social History Tobacco [...] MD [facility] DR ONCOLOGY DEPT. [place], [place] [address] (Jin carson) 11/09/2021 Infusion Hematology and Oncology 12/10/2021 Office Visit Dermatology [facility] Walters MD [address] [place] [address] DERMATOLOGY [place], [place] [address] (Jin carson) 09/19/2039 Hospital Encounter Surgery Osman Barnett MD [facility] OTOLARYNGOLOGY Sharlene EPT. [place], [place] [address] (Wo rk) Scheduled Procedures Name [...] neck documented in this encounter Care Teams Machinist Automotive Relationship Specialty Start Date End Date Tara Joya MD PCP - General Family Medicine 05/16/[address] [place] [address] documented as of this encounter
--- OUTSIDE RECORDS SUMMARY | 2021-10-21 08:02 | XMS_ITS | Encounter Summary ---
:1950 Author Organization [facility] [place] [address] Care Team Providers Name Role Phone Tara Joya MD Primary Care Provider [phone] Encounter Details Date Type Department Care Team Description 02/13/2020 Telephone Otol[facility]ology at [facility] [place] [address] Social History Tobacco Use Types Packs/Day Years Used Date Former Smoker Cigarettes 1 40 Quit: 01/09/20 03 Smokeless Tobacco: Never Used Alcohol Use Standard Drinks/Week Comments No 0 (1 standard drink = 0.6 oz pure alcoho l) Sex Assigned at Date Recorded Not on file documented as of this encounter Miscellaneous Notes Telephone Encounter - My Brady - 02/13/2020 1:26 PM EST Yung, Patient is scheduled to have surgery on 02/20/2020 and the packet has been mailed to the verified address on file. Follow up appointment is as follows: instructions for follow up not noted in case COVID Testing: Covid 19 Team Thank you!! documented in this encounter Plan of Treatment Upcoming Encounters Date Type Specialty Care Team Description 10/21/2021 Infusion Hematology and Oncology 11/09/2021 Office Visit Hematology and Oncology Alhaji Ritchie MD [facility] DR ONCOLOGY DEPT. [place], [place] [address] (Wo rk) 11/09/2021 Infusion Hematology and Oncology 12/10/2021 Office Visit Dermatology [facility]ters MD [address] [facility] [address] DERMATOLOGY [place], [place] [address] (Wo rk) 09/19/2039 Hospital Encounter Surgery Osman Barnett MD [facility] OTOLARYNGOLOGY Sharlene EPT. [place], [place] [address] (Wo rk) Scheduled Procedures Name [...] on filedocumented in this encounter Care Teams Cottonseed Meat Presser Relationship Specialty Start Date End Date Tara Joya MD PCP - General Family Medicine 05/16/[address] [address] documented as of this encounter
--- OUTSIDE RECORDS SUMMARY | 2021-10-21 08:02 | XMS_ITS | Encounter Summary ---
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 hearing of right ear [address] [facility] [address] AUDIOLOGY DEPT [phone] [place], [place] [address] Social History Tobacco Use Types Packs/Day Years Used Date Former Smoker Cigarettes 1 40 Quit: 01/09/20 03 Smokeless Tobacco: Never Used Alcohol Use Standard Drinks/Week Comments No 0 (1 standard drink = 0.6 oz pure alcoho l) Sex Assigned at Date Recorded Not on file documented as of this encounter Progress Notes Gabby Stone MS - 01/31/2020 4:30 PM EST AUDIOLOGY SECTION Ward Santamaria, age 69 years, was seen on 01/31/2020 for an audiologic evaluation in conjunction with Neo Gilman MD. Please refer to the audiogram under the Procedures tab in the electronic medical record for findings, impressions and recommendations. Christine Stone MS, [facility] Clinical Coordinator, [place] [address] [phone] (fax) documented in this encounter Plan of Treatment Upcoming Encounters Date Type Specialty Care Team Description 10/21/2021 Infusion Hematology and Oncology 11/09/2021 Office Visit Hematology and Oncology Alhaji Ritchie MD [facility] DR ONCOLOGY DEPT. [place], [place] [address] (Wo rk) 11/09/2021 Infusion Hematology and Oncology 12/10/2021 Office Visit Dermatology [facility] MD [address] [place] [address] DERMATOLOGY [place], [place] [address] (Wo rk) 09/19/2039 Hospital Encounter Surgery Osman Barnett MD [facility] OTOLARYNGOLOGY D EPT. [place], [place] [address] (Wo rk) Scheduled Procedures Name [...] Procedure Name Priority Date/Time Associated Comments Diagnosis COMPREHENSIVE HEARING Routine 01/31/2020 4:43 PM Results for this TEST EST procedure are i n the results section. documented in this encounter Results Comprehensive hearing test (01/31/2020 4:43 PM EST) Specimen (Source) Anatomical Collection Method Collection Time Re ceived Time Location / / Volume Laterality 01/31/2020 4:43 PM EST Narrative [facility] - 01/31/2020 4:43 PM EST Pt will follow-up as scheduled with Dr. Gilman. ?? Procedure Note Unknown - 01/31/2020Formatting of this n ote might be different from the original. Pt will follow-up as scheduled with Dr. Gilmna. 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
--- OUTSIDE RECORDS SUMMARY | 2021-10-21 08:02 | XMS_ITS | Encounter Summary ---
:1950 Author Organization [facility] [place] [address] Care Team Providers Name Role Phone Tara Joya MD Primary Care Provider [phone] Reason for Referral Diagnostic Test (Routine) - Closed Specialty Diagnoses / Procedures Referred By Contact Refer red To Contact Radiology Diagnoses Head mass [facility] [place] [address] [place] [address] [place] [address] [place] [address] Phone: Referral ID Status Reason Start Date Expiration Date Visits V isits Requested Authorized [id number] Closed Specialty 02/11/2020 03/27/2020 1 1 Service Requested Reason for Visit Diagnostic Test (Routine) - Closed Specialty Diagnoses / Procedures Referred By Contact Refer red To Contact Radiology Diagnoses Head mass [facility] [place] [address] [place] [address] Procedures [place] [address] [place] [address] Phone: Referral ID Status Reason Start Date Expiration Date Visits V isits Requested Authorized [id number] Closed Specialty 02/11/2020 03/27/2020 1 1 Service Requested Encounter Details Date Type Department Care Team Description 02/12/[address] Scan at [facility] Osman Barnett Head [facility] [place] [address] OTOLARYNGOLOGY D EPT. [place], [place] [address] (Wo rk) Social History Tobacco [...] 81 mg by 0 mouth daily. carboxymethylcellulose Place 2 drops 2 Bottle 0 02/26/2020 09/15/2020 (REFRESH PLUS) 0.5 % into both eyes 4 Dropperette times daily. 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 ciprofloxacin (CILOXAN) 0.3 % Place 5 mLs into 0 01/25/2020 03/10/2020 Drops both ears 2 times daily. dexamethasone (DECADRON) 0.1 Place 5 drops 0 01/1902/26/2020 % Drops into both ears daily. triamcinolone (KENALOG) 0.1 % APPLY CREAM 0 03/1702/26/2020 Cream TOPICALLY TO AFFECTED AREA FOR RASH THREE TIMES DAILY FOR UP TO 2 WEEKS COQ10, UBIQUINOL, ORAL Take 200 mg by 0 03/10/2020 mouth daily. documented as of this encounter Plan of Treatment Upcoming Encounters Date Type Specialty Care Team Description 10/21/2021 Infusion Hematology and Oncology 11/09/2021 Office Visit Hematology and Oncology Alhaji Ritchie MD [facility] DR ONCOLOGY DEPT. [place], [place] [address] (Wo rk) 11/09/2021 Infusion Hematology and Oncology 12/10/2021 Office Visit Dermatology [facility]as Walters MD [address] [facility] DERMATOLOGY [place], [place] [address] (Wo rk) 09/19/2039 Hospital Encounter Surgery Osman Barnett MD [facility] OTOLARYNGOLOGY D EPT. [place], [place] [address] (Wo rk) Scheduled Procedures Name [...] Priority Date/Time Associated Diagnosis Comme nts CT TEMPORAL BONE W Routine 02/12/2020 12:41 PM Head mass Re sults for this CONTRAST EST procedure are i n the results section. 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 Involvement of the left parapharyngeal and masticato r spaces. I have personally reviewed the image(s) and the resident's interpretation and agree with the findings, Petey snyder MD at 02/12/2020 4:57 PM Thank you for letting us participate in the care of this patient. For questions regarding this report, please contact nuno number below. ? Electronically signed by: Petey russell MD, [facility] ([phone]), at 02/12/2020 4:57 PM Narrative 02/12/2020 4:57 PM EST EXAMINATION: CT TEMPORAL BONE W CONTRAST CLINICAL HISTORY: mass of salivary gland with possible extension/invasion TECHNIQUE: CT temporal bones performed after the in travenous administration of contrast. 110 cc Omnipaque 350. COMPARISON: MRI face performed 01/11/2020. Correlati on with PET/CT performed the same day 02/12/2020. FINDINGS: Visualized intracranial contents are wit hin normal limits. The paranasal sinuses are clear. Right temporal bone: The external auditory canal is patent wi th nonobstructive adherent cerumen. Normal appearance of the tympanic membra ne and ossicles chain. No soft tissue density in the middle ear or mastoid air cell effusion. Normal morphology of the inner ear structures. Left temporal bone: Large enhancing mixed cystic and solid m ass centered in the left parotid gland. Scattered internal calcifications. The t he parotid portion of the mass extends into the left parapharyngeal space and l ikely involves the left lateral pterygoid muscle. Anteriorly, the mass a buts but does not appear to invade the masseter muscle. No involvement of the c arotid sheath. Additional extension into the external auditory canal which is com pletely opacified with inward bulging of the tympanic membrane. The perineural fa t in the stylomastoid foramen is preserved. ??No expansion of the facial nerve canal to suggest chronic remodeling. ??No underlying osseous eros ion or periosteal reaction. ??No soft tissue extension into the middle ear. Th e ossicular chain is displaced medially but appears intact. Partial effusion of the mastoid air cells. Normal morphology of the inner ear structures. Procedure Note Petey Johnson MD - 02/12/2020Format ting of this note might be different from the original. EXAMINATION: CT TEMPORAL BONE W CONTRAST CLINICAL HISTORY: mass of salivary gland with possible extension/invasion TECHNIQUE: CT temporal bones performed after the in travenous administration of contrast. 110 cc Omnipaque 350. COMPARISON: MRI face performed 01/11/2020. Correlati on with PET/CT performed the same day 02/12/2020. FINDINGS: Visualized intracranial contents are wit hin normal limits. The paranasal sinuses are clear. Right temporal bone: The external auditory canal is patent wi th nonobstructive adherent cerumen. Normal appearance of the tympanic membra ne and ossicles chain. No soft tissue density in the middle ear or mastoid air cell effusion. Normal morphology of the inner ear structures. Left temporal bone: Large enhancing mixed cystic and solid m ass centered in the left parotid gland. Scattered internal calcifications. The t he parotid portion of the mass extends into the left parapharyngeal space and l ikely involves the left lateral pterygoid muscle. Anteriorly, the mass a buts but does not appear to invade the masseter muscle. No involvement of the c arotid sheath. Additional extension into the external auditory canal which is com pletely opacified with inward bulging of the tympanic membrane. The perineural fa t in the stylomastoid foramen is preserved. No expansion of the facial ne rve canal to suggest chronic remodeling. No underlying osseous erosio n or periosteal reaction. No soft tissue extension into the middle ear. Th e ossicular chain is displaced medially but appears intact. Partial effusion of the mastoid air cells. Normal morphology of the inner ear structures. 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 Involvement of the left parapharyngeal and masticato r spaces. I have personally reviewed the image(s) and the resident's interpretation and agree with the findings, Petey snyder MD at 02/12/2020 4:57 PM Thank you for letting us participate in the care of this patient. For questions regarding this report, please contact e number below. Osman Barnett MD IMG CT ORDERABLES documented in this encounter Visit Diagnoses Diagnosis Head mass Swelling, mass, or lump in head and neck documented in this encounter Administered Medications Inactive Administered Medications - up to 3 most recent administrations Medication Order MAR Action Action Date Dose Rate Site iohexoL (Omnipaque) (350 mg/mL) Given 02/12/2020 12:41 PM EST 11 0 mLs injection solution 0-200 mL 0-200 mL, Intravenous, ONCE PRN, 1 dose, Starting on Tue02/12/20 at 1241, Until Tue02/12/20 at 1241, Per Protocol, Warning Vesicant/Irritant Medication , Radiology Contrast, Routine documented in this encounter Care Teams 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
--- OUTSIDE RECORDS SUMMARY | 2021-10-21 08:02 | XMS_ITS | Encounter Summary ---
:1950 [place] [address] Care Team Providers Name Role Phone Tara Joya MD Primary Care Provider [phone] Reason for Visit Auth/Cert Specialty Diagnoses [...] TRUNK OR HEAD PRO RESECT TEMPORAL BONE, CONTAINER FINISHING INSPECTOR APPRCH EXCISION OF PAROTID TUMOR OR PAROTID [...] Expiration Date Visits Requ ested Visits Authorized [id number] 1 Encounter Details Date Type Department Care Team Description 02/20/2020 Anesthesia Event Main Operating Room Rosetta Stacy MD [facility] [place] [address] Petey Crook, [facility] [place] [address] [facility] [place] [address] Anesthesia Record Procedure Summary Procedure Name Responsible Anesthesia Start Anesthesia Stop Anesthesiologist Time Time EXCISION OF PAROTID Juana Stacy MD 02/20/20 0733 05/10 TUMOR OR PAROTID GLAND, TOTAL, WITH DISSECTION AND PRESERVATION OF FACIAL NERVE (WRVU 19.53) (Left Face) Events Date Time Event Comment 02/20/2020 0715 0732 AN Verify 0733 Start 0733 An Start Data 0745 An Induction 0753 An Intubation 0758 Anesthesia Ready 0810 ABG Data Arterial Blood G as result: pH 7.391 pCO2 38.5 pO2 4 21 %O2 Sat 99% FiO2 50% HCO3 22.8 BE -2.1 Hb 13.4 K 3.89 Glucose 147 L actate 2.62 0846 Procedure Start 1210 ABG Data Arterial Blood G as result: pH 7.395 pCO2 36.6 pO2 1 43 %O2 Sat 98% FiO2 50% HCO3 21.9 BE -3.0 Hb 15.2 K 3.6 Glucose 222 L actate 2.75 1602 Handoff Intra-procedure anesthesia care was transferred afte r review of the patient's history, current anesthetic/surgical status and procedural p deep, anticipated issues and expected post-op erative course (including disposition.) MAYUR STACY MD 1702 ABG Data Arterial Blood G as result: pH 7.406 pCO2 33.9 pO2 1 69 %O2 Sat 99% FiO2 50% HCO3 20.8 BE -3.9 Hb 10.8 K 4.41 Glucose 155 L actate 5.58 1805 ABG Data Arterial Blood G as result: pH 7.388 pCO2 35.7 pO2 1 46 %O2 Sat 99% FiO2 50% HCO3 21 BE *-4.0 Hb 10.7 K 4.37 Glucose 167 L actate 4.98 1901 Handoff Intra-procedure anesthesia care was transferred afte r review of the patient's history, current anesthetic/surgical status and procedural p deep, anticipated issues and expected post-op erative course (including disposition.) Sa raopal L KHALIF Carrillo 1951 ABG Data Arterial Blood G as result: pH 7.306 pCO2 46 pO2 53 %O2 Sat 9 8 FiO2 53 HCO3 22.8 BE -3.5 Hb 11.4 K 4.66 G lucose 178 Lactate 4.58 2021 Extubation/LMA Out 2026 an stop data 2030 Recovery or ICU Handoff Patient care was transferred to the destination unit staff after review of the patient's medica l history, current anesthetic/surgi camilo status and plan, according to the Provider Handoff Checklist. 2033 Stop Name Total Midazolam 2 mg fentaNYL 100 mcg IV Lidocaine 100 mg Propofol 430 mg Rocuronium 50 mg PHENYLephrine 840 mcg ePHEDrine 60 mg Ondansetron 8 mg Dexamethasone 8 mg Ketamine INF 100.04 mg Propofol INF 3,285.23 mg PHENYLephrine INF 5,400 mcg clindamycin (Cleocin) 600 mg in dextrose 5% 50 mL infu griselda 1,200 mg HYDROmorphone 4 mg Insulin Regular INF 11.13 Units Dexmedetomidine 16 mcg Calcium Chloride 2,000 mg Labetalol 30 mg Sodium Bicarbonate 8.4% 50 mEq lactated ringers infusion 2,100 mL Normosol-R 4,000 mL Albumin (human) 5% 1,000 mL Sodium Chloride 0.9% 100 mL Agents Name O2 Air N2O Sevoflurane (et) Isoflurane (et) Blood No blood administrations on file. Lines, Drains, and Airways Type Details Placement Removal Incision 02/20/20; ear (POST 02/20/20 0000 by AURICULAR TEMPORAL BONE) Gina Mora RN Incision 02/20/20; neck 02/20/20 0000 by Gina Mora RN Incision 02/20/20; 1657; chest 02/20/20 1657 by Gina Mora, RN Lumbar/CSF Drain 02/20/20; 1808; Left; 02/20/20 1808 by chest; (15F merrill drain Vickie Fishman, RN with bulb) Lumbar/CSF Drain 02/20/20; 1809; Left; 02/20/20 1809 by anterior; neck; (19F Vickie Fishman, RN merrill drain with bulb) Urethral Catheter 02/20/20; Physician 02/20/20 0000 by 02/21/20 1252 by order; indwelling double Gina Mora, CONNOR Tobar n, Richi Kinsey, RN lumen catheter (INSERTED WITH CLEAR YELLOE URINE RETURN); latex; 14; inserted at this facility; 1; 10; 10; none; leg bag to dependent drainage; urethral catheter removed, tubing intact, per protocol/policy; 02/21/20; 1252 PIV 02/20/20; 0713; 02/20/20 0713 by 02/21/20 0000 b y metacarpal vein (top of Radha Wellington Lo uxay, Cindy T, RN hand), right; RN [id number] catheter system; 18 gauge; anesthesia; distraction; removed per policy/procedure, site care per policy/procedure, site symptomatic, catheter/device intact; 02/21/20 ETT Mask Ventilation: Adjunct 02/20/20752 by 02/19 by (2); ETT Type: Cuffed, Luz Maria Chilel Sarah L, Armored; ETT Size: 8 mm; MARKETING DEVELOPER Mac Blade: 4; Indirect:Video; Notes: Asleep; Attempts: 2; Laryngoscopy Grade: 2; ETT Placement Verified By: Auscultation, Capnometry, Visual; Secured at Teeth: 26 cm (sutured in by surgeon) PIV 02/20/20; 0755; 02/20/20 0755 by 02/22/20 1751 b y metacarpal vein (top of Luz Maria Chilel Mary Kay, hand), left; RN [id number]-[id number] catheter system; 18 gauge; catheter/device intact, removed per policy/procedure, site symptomatic; 02/22/20; 1751 Arterial Line 02/20/20; 0757; radial 02/20/20 0757 by 02/21/20 1300 by artery, right; 20 gauge; Luz Maria Chilel, Richi Kinsey, RN chel; Sterile Prep, Sterile Gloves; no longer indicated, removed per policy, catheter intact; 02/21/20; 1300 Lumbar/CSF Drain 02/20/20; 1809; Left; 02/20/20 1809 by 02/25/20 1103 by chest; (15F merrill drain Vickie Fishman, Paola Calhoun, RN with bulbb); 02/25/20; 1103 Lumbar/CSF Drain 02/20/20; 1930; Left; 02/20/20 1930 by 02/24/20 0958 by anterior; neck; (19f Vickie Fishman, Paola Murcia, CONNOR merrill drain with bulb); 02/24/20; 0958 documented in this encounter Social History Tobacco Use Types Packs/Day Years Used Date Former Smoker Cigarettes 1 40 Quit: 01/09/20 03 Smokeless Tobacco: Never Used Alcohol Use Standard Drinks/Week Comments No 0 (1 standard drink = 0.6 oz pure alcoho l) Sex Assigned at Date Recorded Not on file documented as of this encounter OR Notes Anesthesia Postprocedure Evaluation - Juana Stacy MD - 02/20/2020 9:56 PM EST Department of Anesthesiology Post-procedure Note Patient: Ward Santamaria Procedure Summary Date: 02/20/20 Room / Location: [facility] OR [facility] MAIN OR Anesthesia Start: 732 Anesthesia Stop: 2033 Procedures: EXCISION OF PAROTID TUMOR OR PAROTID GLAND, TOTAL, WITH DISSECTION AND PRESERVATION OF FACIAL NERVE(WRVU 19.53) (Left Face) EXC MALIGNANT LESION, >4.0CM, EARS (WRVU 6.26) (Left Face) EXC MALIGNANT LESION, 3.1 TO 4.0CM, FACE (WRVU 4.34) (Left Face) @CERVICAL LYMPHADENECTOMY (MODIFIED RADICAL NECK DISSECTION) (WRVU 23.95) (Left Neck) FLAP, MYOCUTANEOUS OR FASCIOCUTANEOUS, TRUNK (WRVU 19.86) (Left Trunk) FACIAL NERVE MONITORING, SETUP PERIPHERAL (WRVU 0.54) (N/A Neck) ADJACENT TISSUE TRANSFER OR REARRANGEMENT; 30.1 TO 60.0 SQ CM, THORAX (WRVU 12.65) (Left Chest) ADJACENT TISSUE TRANSFER OR REARRANGEMENT; EA ADD'L 30.0 SQ CM, OR PART OF (WRVU 3.73) (Left Chest) @RESECTION TEMPORAL BONE, EXTERNAL APPROACH (WRVU 37.42) (Left Ear) MICROSCOPE USE (WRVU 3.46) (N/A Ear) Diagnosis: Mass of left ear Parotid mass (parotid mass) Surgeon: Osman Barnett MD; Neo Gilman MD Responsible Provider: Juana Stacy MD Anesthesia Type: general ASA Status: 3 All Anesthesia Providers: Anesthesiologist: Aline Ramires MD; Juana Stacy MD MARKETING DEVELOPER: Petey Lehman CRNA; Lisa Carrillo CRNA Student Nurse Offal Trimmer: Luz Maria Chilel Vitals Value Taken Time BP 146/68 02/20/20 2145 Temp Pulse 96 02/20/20 2156 Resp 17 02/20/202155 SpO2 97 % 02/20/202155 Pain Level 0 02/20/202031 Vitals shown include unvalidated device data. Patient Location: PACU/[facility] Level of Consciousness: Lethargic Pain Management: Satisfactory Analgesia PONV: None Cardiovascular Status: At Baseline and Hemodynamically Stable Respiratory Status: At Baseline, Supplemental O2 (NC or FM) and Oral airway Postoperative Fluid Status: Intravascular EUvolemia Possible Anesthetic Complications: NONE apparent at time of evaluation Final Primary Anesthesia Type: General (The anesthetic type performed was the same as planned.) Comments: JUANA STACY MD Anesthesia Preprocedure Evaluation - Aline Ramires MD - 02/20/2020 7:13 AM EST Pre-Anesthesia Evaluation for: Ward Santamaria a 69 y.o. male. Procedure(s): EXCISION OF PAROTID TUMOR OR PAROTID GLAND, TOTAL, WITH DISSECTION AND PRESERVATION OF FACIAL NERVE (WRVU 19.53) EXC MALIGNANT LESION, >4.0CM, EARS (WRVU 6.26) EXC MALIGNANT LESION, 3.1 TO 4.0CM, FACE (WRVU 4.34) @CERVICAL LYMPHADENECTOMY (MODIFIED RADICAL NECK DISSECTION) (WRVU 23.95) FLAP, MYOCUTANEOUS OR FASCIOCUTANEOUS, TRUNK (WRVU 19.86) FACIAL NERVE MONITORING, SETUP PERIPHERAL (WRVU 0.54) @RESECTION TEMPORAL BONE, EXTERNAL APPROACH (WRVU 37.42) Patient Active Problem List Diagnosis ??? Mass of left ear Added automatically from request for surgery [id number] ??? Parotid mass Added automatically from request for surgery [id number] ??? History of basal cell carcinoma ??? [...] negative ??? Basal cell cancer ??? Hypertriglyceridemia History reviewed. No pertinent past medical history. Past Surgical History: Procedure Laterality Date ??? KIDNEY STONE SURGERY ??? PRO COLONOSCOPY, REMV LESN, SNARE N/A 07/07/2015 COLONOSCOPY, POLYPECTOMY, REMOVAL LESION BY SNARE performed by Jose Manuel Heller MD at [facility] ENDOSCOPY Social History Tobacco Use ??? Smoking status: [...] home medications have been reviewed. Physical Exam: Patient Vitals for the past 24 hrs: Temp Pulse Resp BP SpO2 O2 Device 02/20/20 0614 37.4 ??C (99.3 ??F) 71 20 145/76 97 % RA There is no height or weight on file to calculate BMI. Airway Assessment: Mallampati: II TM distance: >3 FB Neck ROM: full Cardiovascular Assessment: Rhythm: regular Rate: normal Pulmonary Assessment: unlabored breathing Dental Assessment: - normal exam Misc Assessment: Anesthesia Plan: ASA 3 general, with a(n) intravenous induction 69 yo male former smoker, former PAULINO presents with left sided parotid mass for excision, neck dissection, possible flap coverage. Discussed risks/benefits GAETT, arterial line Informed Consent: Anesthetic plan and risks discussed with patient. Use of blood products discussed with patient who. Plan discussed with MARKETING DEVELOPER. PAT Clinic Note documented in this encounter Plan of Treatment Upcoming Encounters Date Type Specialty Care Team Description 10/21/2021 Infusion Hematology and Oncology 11/09/2021 Office Visit Hematology and Oncology Alhaji Ritchie MD [facility] DR ONCOLOGY DEPT. [place], [place] [address] (Wo rk) 11/09/2021 Infusion Hematology and Oncology 12/10/2021 Office Visit Dermatology Silsa Walters MD [address] [facility] DERMATOLOGY [place], [place] [address] (Jin rk) 09/19/2039 Hospital Encounter Surgery Osman Barnett MD [facility] OTOLARYNGOLOGY D EPT. [place], [place] [address] (Jin carson) Scheduled Procedures Name [...] MAR Action Action Date Dose Rate Site albumin (human) 5% 250 mL New Bag 02/20/2020 4:19 PM EST intravenous solution Intravenous, CONTINUOUS PRN, Starting on Tue02/20/20 at 1245, Until Tue02/20/20 at 2037, Anesthesia Intra-op, Routine New Bag 02/20/2020 1:38 PM EST New Bag 02/20/2020 12:45 PM EST calcium chloride 10% (100 mg/mL) injecti on Given 02/20/2020 4:09 PM EST 500 mg PRN, Starting on Tue02/20/20 at 1330, Until Tue02/20/20 at 2037, Anesthesia Intra-op, Routine Given 02/20/2020 4:07 PM EST 500 mg Given 02/20/2020 2:08 PM EST 300 mg clindamycin (Cleocin) 600 mg in dextrose 5% Given 02/20/2020 2:03 PM EST 600 mg 50 mL infusion 600 mg, Intravenous, EVERY 8 HOURS, First dose on Tue02/20/20 at 0730, Until Discontinued, Administer over 20 Minutes, Indication for (Active or Suspected): Prophylaxis Given 02/20/2020 8:02 AM EST 600 mg dexamethasone (Decadron) injection Given 02/20/2020 8:20 AM EST 8 mg PRN, Starting on Tue02/20/20 at 0820, Until Tue02/20/20 at 2037, Anesthesia Intra-op, Routine dexmedetomidine (Precedex) (4 mcg/mL) bolus Given 02/20/2020 1:5 8 PM EST 4 mcg injection (Anesthsia) PRN, Starting on Tue02/20/20 at 1224, Until Tue02/20/20 at 2037, Anesthesia Intra-op, Routine Given 02/20/2020 12:30 PM EST 4 mcg Given 02/20/2020 12:24 PM EST 8 mcg electrolyte (pH 7.4) (NORMOSOL-R; PLASMALYTE-A) New Bag 2019 4:15 PM EST injection CONTINUOUS PRN, Starting on Tue02/20/20 at 0756, Until Tue02/20/20 at 2037, Anesthesia Intra-op New 02/20/2020 1:28 PM EST New Bag 02/20/2020 10:49 AM EST ePHEDrine (pf) (5 mg/mL) multi-dose inje ction Given 02/20/2020 4:24 PM EST 5 mg PRN, Starting on Tue02/20/20 at 0810, Until Tue02/20/20 at 2037, Anesthesia Intra-op, Routine Given 02/20/2020 4:14 PM EST 5 mg Given 02/20/2020 4:12 PM EST 5 mg fentaNYL (pf) (50 mcg/mL) multi-dose Given 02/20/2020 7:51 AM ES T 100 mcg injection PRN, Starting on Tue02/20/20 at 0751, Until Tue02/20/20 at 2037, Anesthesia Intra-op, Routine HYDROmorphone (Dilaudid) (2 mg/mL) multi-dose Given 6:28 PM EST 0.2 mg injection solution PRN, Starting on Tue02/20/20 at 0907, Until Tue02/20/20 at 2037, Anesthesia Intra-op, Routine Given 02/20/2020 6:23 PM EST 0.4 mg Given 02/20/2020 5:48 PM EST 0.4 mg insulin regular human Rate/Dose Change 02/20/2020 4:06 0.5 Units/hr 0 .5 mL/hr (Myxredlin) (1 unit/mL) in PM EST sodium chloride 0.9% 100 mL infusion CONTINUOUS PRN, Starting on Tue02/20/20 at 1221, Until Tue02/20/20 at 2037, Anesthesia Intra-op, Routine Rate/Dose Change 02/20/2020 3:26 PM EST 1 Units/hr 1 mL/hr Rate/Dose Change 02/20/2020 1:16 PM EST 3 Units/hr 3 mL/hr ketamine (Ketalar) (10 mg/mL) New Bag 02/20/2020 8:18 AM 0.15 mg/kg/hr 1.2 mL/hr injection EST CONTINUOUS PRN, Starting on Tue02/20/20 at 0818, Until Tue02/20/20 at 2037, Anesthesia Intra-op, Routine New Bag 02/20/2020 8:04 AM EST 0.15 mg/kg/hr 1.2 mL/hr labetalol (Normodyne) (5 mg/mL) multi-dose Given 02/20/2020 3:52 PM EST 5 mg injection PRN, Starting on Tue02/20/20 at 1503, Until Tue02/20/20 at 2037, Anesthesia Intra-op, Routine Given 02/20/2020 3:22 PM EST 10 mg Given 02/20/2020 3:20 PM EST 5 mg lactated ringers infusion New Bag 02/20/2020 4:33 PM EST 1,000 mL, at 100 mL/hr, Intravenous, CONTINUOUS, Starting on Tue02/20/20 at 0745, Until Tue02/20/20 at 2357, Day of Surgery (Day of Procedure) New Bag 02/20/2020 3:07 PM EST New Bag 02/20/2020 7:27 AM EST lidocaine (pf) (Xylocaine) (20 mg/mL) 2% Given 02/20/2020 7:46 A M EST 100 mg injection syringe PRN, Starting on Tue02/20/20 at 0746, Until Tue02/20/20 at 2037, Anesthesia Intra-op, Routine midazolam (pf) (Versed) (1 mg/mL) multi-dose Given 02/20/2020 7: 32 AM EST 2 mg injection PRN, Starting on Tue02/20/20 at 0732, Until Tue02/20/20 at 2037, Anesthesia Intra-op, Routine ondansetron (pf) (Zofran) (2 mg/mL) inje ction Given 02/20/2020 7:07 PM EST 4 mg PRN, Starting on Tue02/20/20 at 0820, Until Tue02/20/20 at 2037, Anesthesia Intra-op, Routine Given 02/20/2020 8:20 AM EST 4 mg PHENYLephrine Rate/Dose Change 02/20/2020 4:41 PM 20 mcg/min 15 mL/hr (RG-SYNEPHRINE) 20 mg in EST sodium chloride 250 mL (standard ADULT & Pedi greater than 20kg) infusion CONTINUOUS PRN, Starting on Tue02/20/20 at 0805, Until Tue02/20/20 at 2037, Anesthesia Intra-op, Routine Rate/Dose Change 02/20/2020 4:37 PM EST 30 mcg/min 22.5 mL/hr Rate/Dose Change 02/20/2020 4:33 PM EST 20 mcg/min 15 mL/hr PHENYLephrine in NS (PF) (RG-SYNEPHRINE) 0.8 Given 4:24 PM EST 80 mcg mg/10 mL (80 mcg/mL) multi-dose injection Syrg PRN, Starting on Tue02/20/20 at 0822, Until Tue02/20/20 at 2037, Anesthesia Intra-op, Routine Given 02/20/2020 4:22 PM EST 80 mcg Given 02/20/2020 4:15 PM EST 80 mcg propofoL (Diprivan) 10 mg/mL bolus injection Given 0 1:18 PM EST 30 mg (Anesthesia) PRN, Starting on Tue02/20/20 at 0745, Until Tue02/20/20 at 2037, Anesthesia Intra-op Given 02/20/2020 7:51 AM EST 200 mg Given 02/20/2020 7:45 AM EST 200 mg propofoL (Diprivan) Rate/Dose 02/20/2020 3:29 50 mcg/kg/min 23.1 mL/ hr infusion Change PM EST CONTINUOUS PRN, Starting on Tue02/20/20 at 0806, Until Tue02/20/20 at 2037, Anesthesia Intra-op, Routine Rate/Dose Change 02/20/2020 3:21 PM EST 100 mcg/kg/min 46.3 mL/hr Rate/Dose Change 02/20/2020 2:39 PM EST 50 mcg/kg/min 23.1 mL/hr rocuronium (Zemuron) (10 mg/mL) multi-dose Given 02/20/2020 7:46 AM EST 50 mg injection PRN, Starting on Tue02/20/20 at 0746, Until Tue02/20/20 at 2037, Anesthesia Intra-op, Routine sodium bicarbonate 8.4 % (1 meq/ml) IV Given 02/20/2020 4:14 PM EST 25 mEq solution PRN, Starting on Tue02/20/20 at 1612, Until Tue02/20/20 at 2037, Anesthesia Intra-op, Routine Given 02/20/2020 4:12 PM EST 25 mEq sodium chloride 0.9% infusion New Bag 02/20/2020 6:22 PM EST CONTINUOUS PRN, Starting on Tue02/20/20 at 1822, Until Tue02/20/20 at 2037, Anesthesia Intra-op documented in this encounter Care Teams Network Operations Center Engineer Relationship Specialty Start Date End Date Tara Joya MD PCP - General Family Medicine 05/16/[address] [facility] [place] [address] documented as of this encounter
--- OUTSIDE RECORDS SUMMARY | 2021-10-21 08:02 | XMS_ITS | Encounter Summary ---
:1950 Author Organization [facility] [place] [address] Care Team Providers Name Role Phone Tara Joya MD Primary Care Provider [phone] Encounter Details Date Type Department Care Team Description 02/04/2020 Telephone Otolaryngology at [facility] [place] [address] Social History Tobacco Use Types Packs/Day Years Used Date Former Smoker Cigarettes 1 40 Quit: 01/09/20 03 Smokeless Tobacco: Never Used Alcohol Use Standard Drinks/Week Comments No 0 (1 standard drink = 0.6 oz pure alcoho l) Sex Assigned at Date Recorded Not on file documented as of this encounter Miscellaneous Notes Telephone Encounter - Nicci Lozano - 02/04/2020 2:32 PM EST Called and spoke to patient and gave dates of CT and PET scan on 02/11 along with instructions for PET and told him he would get a letter in the mail as well. You should do no strenuous exercise for the 24 hours prior to the scan. You are to have nothing to eat after 8am day of your scan that is scheduled for 2pm. Please take any prescribed medication (you may use water to take this medication). No gum, no mints, cough drops... etc however you can drink water up to the appointment time. No added water flavors. documented in this encounter Plan of Treatment Upcoming Encounters Date Type Specialty Care Team Description 10/21/2021 Infusion Hematology and Oncology 11/09/2021 Office Visit Hematology and Oncology Alhaji Ritchie MD [facility] DR ONCOLOGY DEPT. [place], [place] [address] (Wo rk) 11/09/2021 Infusion Hematology and Oncology 12/10/2021 Office Visit Dermatology Silas Walters MD [address] [address] [address] DERMATOLOGY [place], [place] [address] (Wo rk) 09/19/2039 Hospital Encounter Surgery Osman Barnett MD [facility] OTOLARYNGOLOGY D EPT. [place], [place] [address] (Wo rk) Scheduled Procedures Name [...] on filedocumented in this encounter Care Teams Reporting Lead Relationship Specialty Start Date End Date Tara Joya MD PCP - General Family Medicine 05/16/[address] [place] [address] documented as of this encounter
--- OUTSIDE RECORDS SUMMARY | 2021-10-21 08:02 | XMS_ITS | Encounter Summary ---
:1950 Author Organization [facility] [place] [address] Care Team Providers Name Role Phone Tara Joya MD Primary Care Provider [phone] Reason for Visit Diagnostic Test (Routine) - Closed Specialty Diagnoses / Procedures Referred By Contact Refer red To Contact Radiology Diagnoses Head mass Osman Barnett MD [facility] Rad Nuclear Med Procedures NM PET CT Standard Plus Head and Neck [facility] [place] [address] [place] [address] Referral ID Status Reason Start Date Expiration Date Visits V isits Requested Authorized [id number] Closed Specialty 02/07/2020 03/23/2020 1 1 Service Requested Encounter Details Date Type Department Care Team Description 02/12/2020 Hospital Encounter Nuclear Medicine at [facility] ph, Mary Hitchcock [place] [address] OTOLARYNGOLOGY DEPT. [phone] [place], [place] [address] (Wo rk) Social History Tobacco [...] 1 tablet by 15 tablet 0 01/2004/07/2020 ([place]) 5-325 mg mouth every 6 TabletIndications: Parotid [...] MD [facility] DR ONCOLOGY DEPT. [place], [place] [address] (Wo rk) 11/09/2021 Infusion Hematology and Oncology 12/10/2021 Office Visit Dermatology Silas Walters MD [address] DERMATOLOGY [place], [place] [address] (Wo rk) 09/19/2039 Hospital Encounter Surgery Osman Barnett MD [facility] OTOLARYNGOLOGY D EPT. [place], [place] [address] (Wo rk) Scheduled Procedures Name [...] Name Priority Date/Time Associated Diagnosis Comme nts NM PET CT STANDARD Routine 02/12/2020 2:33 PM Head mass Res ults for this PLUS HEAD AND NECK EST procedure are in the results section. POCT GLUCOSE Routine 02/12/2020 12:56 PM Results for this EST procedure are i n the results section. documented in this encounter Results POCT Glucose (02/12/2020 12:56 PM EST) P athologist Signature POC Glucose 153 65 - [address] [facility] mg/dL [facility] Comment: Supplemental ranges: <140 mg/dL before meals <180 mg/dL all other times of the day Specimen Anatomical Collection Method Collection Time Receive d Time (Source) Location / / Volume Laterality Blood specimen 02/12/2020 12:56 0 (specimen) PM EST 12:56 PM EST Osman Barnett MD POINT OF CARE TEST ORDERABLE S Performing Organization Address City/State/ZIP [place] [address] documented in this encounter Visit Diagnoses Not on filedocumented in this encounter Care Teams Boiler Tenders Supervisor Relationship Specialty Start Date End Date Tara Joya MD PCP - General Family Medicine 05/16/[address] [facility] [place] [address] documented as of this encounter
--- OUTSIDE RECORDS SUMMARY | 2021-10-21 08:02 | XMS_ITS | Encounter Summary ---
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 [place], [place] [address] (Wo rk) 11/09/2021 Infusion Hematology and Oncology 12/10/2021 Office Visit Dermatology Silas Walters MD [address] DERMATOLOGY [place], [place] [address] (Wo rk) 09/19/2039 Hospital Encounter Surgery Osman Barnett MD [facility] OTOLARYNGOLOGY D EPT. [place], [place] [address] (Wo rk) Scheduled Procedures Name [...] Name Priority Date/Time Associated Diagnosis Comme nts COVID-19 PCR Routine 02/17/2020 12:00 PM Results for this EST procedure are i n the results section . documented in this encounter Results COVID-19 PCR (02/17/2020 12:00 PM EST) [facility] Method Time Signature SARS-CoV-2 Not Detected Not Detected IMAN RNA [facility] Comment: This result should be interpreted in com bination with the clinical observations, patient history and epidem iological information in making a final diagnosis. For testing of asymptomatic i ndividuals, assay performance characteristics and clinical utility hav e not been evaluated. Testing for SARS-CoV-2 (Severe acute respiratory syn drome coronavirus 2, formerly known as 2019 novel coronavirus or 2019-nCoV) to aid in the diagnosis of COVID-19 is performed using the [employer] Erlinda KEARNEY S-CoV-2 Assay as authorized by the FDA Emergency Use Authorization (EUA). This EUA assay is intended for In-vitro Diagnostic (IVD) use with respiratory sp ecimens such as nasopharyngeal swabs collected from individuals during the ac [place] phase of infection. This assay is performed based on the instructions for use provided by [employer] and additional guidance provided by CDC and FDA. Testing is performed in the [facility] y Laboratory within the Department of Pathology and Laboratory Medicine at [facility], certified under the Clinical Laboratory Improvement Amendments of 1988 (CLIA), 42 U.S.C. 263a, to perform high complexi ty tests. Assay performance has been verified according to clinical laborator y regulatory requirements for use with specimens collected from individuals tate pected of COVID-19. Test results are provided above. A result of ? Not Detected? indicates that the viral RNA target is not present above the limit of detect ion, but does not preclude SARS-CoV-2 infection. False negative results may oc cur if a specimen is improperly collected, transported or handled; if am plification inhibitors are present; or if inadequate numbers of viral particles are present in the specimen. When a diagnostic test is negative, the possibi lity of a false negative result should be considered in the context of a patien t? s recent exposures and the presence of clinical signs and symptoms consisten t with COVID-19. A result of ? Detected? indicates that RNA from SARS-CoV-2 was d etected and the patient is infected. As required or requested by public health [facility], positive specimens may be sent for additional testing. Positive an d negative predictive values for this test are highly dependent on disease pre valence. A result of ? Invalid? indicates that neither the viral RNA tar gets nor the internal control target was detected. An invalid result suggests the presence of inhibitors. Recollection and re-testing is recommend ed in the case of an invalid result. CDC COVID-19 criteria for testing on hum an specimens and clinical management guidance information are available at th e CDC Coronavirus Disease 2019 (COVID-19) webpage under ? Information for Healthcare Professionals? (https://www.cdc.gov/coronavirus/2019-nc ov/hcp/index.html) Additional information about this and ot her EUA tests can be found in provider and patient fact sheets at the following FDA website: https://www.fda.gov/medical-devices/fxteeghouib-hzldqfz-3617-bsjxq-71-vxlosltau- dea-whykwozaajgkrd-rzlrtpy-devices/imdhn-qaegocsfjfu-mewb SARS-Cov-2 RNA Source DEVICE PROCESSING ENGINEER Swab [facility] Specimen (Source) Anatomical Collection Method Collection Time Re ceived Time Location / / Volume Laterality Nasopharyngeal swab Other / Unknown 02/17/2020 12:00 1 04/18/2019 (specimen) PM EST 3:36 PM EST Resulting Agency Comment Spec In Lab Osman Barnett MD MICROBIOLOGY - GENERAL ORDER OLYA Performing Organization Address City/State/[place] [address] documented in this encounter Visit Diagnoses Not on filedocumented in this encounter Care Teams Clay Worker Relationship Specialty Start Date End Date Tara Joya MD PCP - General Family Medicine 05/16/[address] [place] [address] documented as of this encounter
--- OUTSIDE RECORDS SUMMARY | 2021-10-21 08:02 | XMS_ITS | Encounter Summary ---
:1950 Author Organization [facility] [place] [address] Care Team Providers Name Role Phone Tara Joya MD Primary Care Provider [phone] Reason for Referral Diagnostic Test (Routine) - Closed Specialty Diagnoses / Procedures Referred By Contact Refer red To Contact Radiology Diagnoses Head mass Osman Barnett MD [facility] Rad Nuclear Med Procedures NM PET CT Standard Plus Head and Neck [facility] [place] [address] [place] [address] Referral ID Status Reason Start Date Expiration Date Visits V isits Requested Authorized [id number] Closed Specialty 02/07/2020 03/23/2020 1 1 Service Requested Reason for Visit Diagnostic Test (Routine) - Closed Specialty Diagnoses / Procedures Referred By Contact Refer red To Contact Radiology Diagnoses Head mass Osman Barnett MD [facility] Rad Nuclear Med Procedures NM PET CT Standard Plus Head and Neck [facility] [place] [address] [place] [address] Referral ID Status Reason Start Date Expiration Date Visits V isits Requested Authorized [id number] Closed Specialty 02/07/2020 03/23/2020 1 1 Service Requested Encounter Details Date Type Department Care Team Description 02/12/2020 Hospital Encounter Nuclear Medicine at [place], Oscar ph A, Head mass Lisha Alonso MD [facility] [place] [address] OTOLARYNGOLOGY DEPT. [phone] SON[place] AMEZCUA [address] (Wo rk) Social History Tobacco Use [...] 1 tablet by 15 tablet 0 01/2004/07/2020 ([place]) 5-325 mg mouth every 6 TabletIndications: Parotid [...] MD [facility] DR ONCOLOGY DEPT. [place], [place] 0[address] (Wo rk) 11/09/2021 Infusion Hematology and Oncology 12/10/2021 Office Visit Dermatology Silas Walters MD [address] [place] [address] DERMATOLOGY [place], [place] [address] (Wo rk) 09/19/2039 Hospital Encounter Surgery Osman Barnett MD [facility] OTOLARYNGOLOGY D EPT. [place], [place] [address] (Wo [...] EST procedure are in the results section. documented in this encounter Results NM PET CT Standard [...] face TECHNIQUE: Following IV injection of 18- ybfycb-6-ijtpjeadquto (FDG) a standard uptake of approximately 60 [...] face TECHNIQUE: Following IV injection of 18- vmyodf-2-eewnihkzkbax (FDG) a standard uptake of approximately 60 [...] MAR Action Action Date Dose Rate Site fludeoxyglucose (F-18) FDG Given 02/12/2020 1:00 PM 11.5 mCi Right Arm injection 0-20 mCi EST 0-20 mCi, Intravenous, ONCE PRN, 1 dose, Starting on Tue02/12/20 at 1305, Until Tue02/12/20 at 1300, Per Protocol, Radiology Contrast, Routine documented in this encounter Care Teams Coordinator Of Library Services Relationship Specialty Start Date End Date Tara Joya MD PCP - General Family Medicine 05/16/[address] [place] [address] documented as of this encounter
--- OUTSIDE RECORDS SUMMARY | 2021-10-21 08:02 | XMS_ITS | Encounter Summary ---
:1950 Author Organization [facility] [place] [address] Care Team Providers Name Role Phone Tara Joya MD Primary Care Provider [phone] Reason for Visit Consultation (Routine) - Closed Specialty Diagnoses / Procedures Referred By Contact Refer red To Contact Otolaryngology Diagnoses Other diseases of salivary glands Jacoby Rosario PA Paydarfar, Joseph A, [address] [place] [address] [place] [address] [facility] OTOLARYNGOLOGY DEPT. [place], [place] [address] Phone: Fax: Referral ID Status Reason Start Date Expiration Date Visits V isits Requested Authorized [id number] Closed Consult, 01/25/2020 01/24/2021 1 1 Test & Treat Encounter Details Date Type Department Care Team Description 01/31/2020 Office Visit Otolaryngology at [facility] of left ear; [facility] [place] [address] [facility] [phone] CENTER OTOLARYNGOLOGY DEPT. [place], [place] [address] Social History Tobacco Use Types [...] Sign Reading Time Taken Comments Blood Pressure 155/78 01/31/2020 2:51 PM EST Pulse 68 01/31/2020 2:51 PM EST Temperature - - Respiratory Rate - - Oxygen Saturation 98% 01/31/2020 2:51 PM EST Inhaled Oxygen Concentration - - Weight 78 kg (171 lb 14.4 oz) 01/31/2020 2:51 PM EST Height 175.3 cm (5' 9) 01/31/2020 2:51 PM EST Body Mass Index 25.39 01/31/2020 2:51 PM EST documented in this encounter Progress Notes Osman Humphrey MD - 01/31/2020 3:00 PM EST Images from the original note were not included. [facility] OTOLARYNGOLOGY HEAD AND NECK TUMOR CLINIC NEW PATIENT CONSULTATION I was asked to see Ward Santamaria in consultation by Jacoby Rosario for parotid malignancy. History was obtained through review of the relevant records, discussion with referring physician and/or patient interview. This is a 69 y.o. male who [...] mass performed. The specimen was sent to [facility] and per patient he was told it was concerning for malignancy. We do not have the report due to the [facility] EMR being down. The patient denies any facial weakness. He also had an MRI face to evaluate. 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 HN Risk Factors: Quit smoking 2000. Quit alcohol 1999. PMH: Hepatitis C treated. Cardiac stent placement. PROBLEM LIST Patient Active Problem List Diagnosis [...] ??? History of basal cell carcinoma Z85.828 PAST MEDICAL HISTORY No past medical history on file. SOCIAL HISTORY Social History Tobacco Use ??? Smoking status: Former Smoker Packs/day: 1.00 Years: 40.00 Pack years: 40.00 Types: Cigarettes Quit date: 01/08/2003 Years since quittin.0 ??? Smokeless tobacco: Never Used Substance Use [...] 5 drops into both ears daily. ??? nitroGLYcerin (NITROSTAT) 0.4 mg Tablet, Sublingual [...] Take 81 mg by mouth daily. ??? triamcinolone (KENALOG) 0.1 % Cream APPLY CREAM TOPICALLY TO AFFECTED AREA FOR RASH THREE TIMES DAILY FOR UP TO 2 WEEKS ??? COQ10, UBIQUINOL, ORAL Take 200 mg by mouth daily. No current facility-administered medications on file prior to visit. ALLERGIES Allergies Allergen Reactions ??? Penicillins rash ??? Codeine Phosphate Rash ROS Pertinent positive findings discussed above. No other findings on review of constitutional visual, cardiovascular, respiratory, gastrointestinal, genitourinary, musculoskeletal, dermatologic, neurological, psychiatric, endocrine, hematologic or immunologic systems. PHYSICAL EXAMINATION Vitals: Blood pressure 155/78, pulse 68, height 175.3 cm (5' 9), weight 78 kg (171 lb 14.4 oz), SpO2 98 %. General: No acute distress Face: Normocephalic and atraumatic Eyes: Extraocular movement is full and intact. No dysconjugate gaze. No evidence of nystagmus. Periocular structures and conjunctiva healthy without lesions. Ears: Tumor involves the lower auricle and infiltrates the EAC on the left. Tumor extends to the post auricular region. Normal right side. Nose: Normal external exam. Mouth: Lips and gingiva pink, moist, without lesions. Gums/dentition healthy. Tongue and floor of mouth soft without lesions or masses. Hard palate without lesions. Pharynx: Normal exam of the tonsils, tonsillar fossa, soft palate, lateral pharyngeal wall, and posterior pharynx. Salivary: Tumor involving the left parotid gland. Neck: Soft supple without significant lymphadenopathy. Thyroid gland without masses or asymmetry. Trachea midline without deviation. Resp: Breathing comfortably without stridor or retractions. Normal respirations. CV: Normal carotid pulses. MSK: Normal neck range of motion, no trismus. Skin: Skin survey of the head and neck is without concerning lesion. Neurologic: Cranial nerves II-XII intact and symmetric. AxOx3, responds appropriately to questions. Normal facial nerve function. Psych: Normal mood and affect. PROCEDURES Procedure: Biopsy of Left ear canal and postauricular region Using the binocular microscope, the EAC was visualized. Friable mass noted in the EAC and was sampled using alligator forceps. Submitted in saline. The post auricular region was injected with 1% xylocaine [id number] epinephrine. A 3 mm punch was usedto sample the mass as seen in picture above. This area was also lanced previously and this incision was opened with additional sampling performed. Incision was then closed with 5-0 chromic in an interrupted fashion. All specimens submitted together in saline. REVIEW OF IMAGES/STUDIES MRI of the face was performed 01/11/2020. Outside read: 3.4 x 3.7 x 3.4 cm mass invading the pinna inferiorly and also abuts the EAC. Possible adenopathy inthe gland as well. 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 Dr. Gilman was able to meet with patient today as well to review temporal bone resection. Will obtain PET/CT and CT temporal bone with IV contrast. Arrange surgery date ZOE. I appreciate the opportunity to be involved in Mr. Santamaria's care. OSMAN HUMPHREY MD 01/31/2020 documented in this encounter Plan of Treatment Upcoming Encounters Date Type Specialty Care Team Description 10/21/2021 Infusion Hematology and Oncology 11/09/2021 Office Visit Hematology and Oncology Alhaji Ritchie MD [facility] DR ONCOLOGY DEPT. [place], [place] [address] (Jin carson) 11/09/2021 Infusion Hematology and Oncology 12/10/2021 Office Visit Dermatology Silas Walters MD [address] [place] [address] DERMATOLOGY [place], [place] [address] (Jin carson) 09/19/2039 Hospital Encounter Surgery Osman Humphrey MD [facility] OTOLARYNGOLOGY D EPT. [place], [place] [address] (Jin carson) Scheduled Procedures Name [...] Name Priority Date/Time Associated Diagnosis Comme nts SPECIMEN TO Routine 01/31/2020 4:48 PM Mass of left ear Results for this PATHOLOGY EST Parotid mass procedure are i n the results section. SURGICAL PATHOLOGY Routine 01/31/2020 4:00 PM Res ults for this REPORT EST procedure are i n the results section. documented in this encounter Results Specimen to Pathology (01/31/2020 4:48 PM EST) Specimen Anatomical Collection Method Collection Time Receive d Time (Source) Location / / Volume Laterality AP Specimen 01/31/2020 4:48 PM 0 4:48 EST PM EST Narrative [facility] - 01/31/2020 4:48 PM EST Specimen requisition ordered. ??Separate Pathology report to follow Osman Humphrey MD PATHOLOGY/CYTOLOGY ORDERABLE S Performing Organization Address City/State/[place] [address] Surgical Pathology Report (01/31/2020 4:00 PM EST) Component Value Ref Test Analysis Performed At [facility] gist Range Method Time Signature Surgical [id number] ? Location: [address] [place] [address] Report The signing pathologist has (i) examined the relevant preparation(s) for the [facility] specimen(s) and (ii) rendered or confirmed the diagnosis(es) . HOSPITAL LABORATORY . ?Surgic al Pathology DIAGNOSIS A - Left ear canal, biopsy: - Squamous cell carcinoma, ( fragments), moderately differentiated, associated with ulcer exudate/necrosis. Electronically signed by: ??Terri Painting DO Verified: ??02/07/2020 ?Pathologist Performed at: ??-[facility] Dept. of Pathology, [place], [place] ADDITIONAL STUDIES Immunohistochemistry Studies: Formalin-fixed, paraffin-emb edded tissue sections are studied using the polymer technique with appropriate positive and negative controls. ?These IHC studies provide the pathologist wit h adjunctive diagnostic information. Antibody specificity has been verified by testin g antibodies on a series of in-house tissues with known immunohistochemical perform ance characteristics. The clinical interpretation of any antibody positive stain ing or its absence is evaluated within the context of clinical presentation, morp hology, histopathological criteria and other diagnostic tests. Block ? Antibody ?Result (Positive /Negative) A1 ? p40 ?Positive in les ional cells Special stains are performed. Block ?Stain ?Result ( Positive / Negative ) A1 ? mucicarmine ? Negative SPECIMEN(S) SUBMITTED A - left ear canal, biopsy (multiple) CLINICAL INFORMATION Parotid and ear mass, left SPECIMEN PROCESSING A - Labeled/Fixative: Patient demographics forward, formalin . Quantity/Size: Multiple, averaging 0.3 cm. Tissue Description: Soft, lema to pink-red soft tissues. Sections/Processing: Submitted en toto ??in 2 cassettes labeled A1-A2. ??shb Specimen (Source) Anatomical Collection Method Collection Time Re ceived Time Location / / Volume Laterality 01/31/2020 4:00 PM EST Osman Humphrey MD PATHOLOGY/CYTOLOGY ORDERABLE S Performing Organization Address City/State/[place] [address] [facility] [address] documented in this encounter Visit Diagnoses Diagnosis Mass of left ear Parotid mass Swelling, mass, or lump in head and neck documented in this encounter Care Teams Exchange Mechanic Relationship Specialty Start Date End Date Tara Joya MD PCP - General Family Medicine 05/16/[address] [place] [address] documented as of this encounter
--- OUTSIDE RECORDS SUMMARY | 2021-10-21 08:02 | XMS_ITS | Encounter Summary ---
:1950 Author Organization [facility] [address] Care Team Providers Name Role Phone Tara Joya MD Primary Care Provider [phone] Reason for Visit Reason Comments Follow-up yearly Encounter Details Date Type Department Care Team Description 12/26/2017 Office Visit Cardiology at [facility] ASCVD (arter iosclerotic cardiovascular disease); Nona Roque MD Hyperlipidemia, unspecified hyperlipidem ia type [address] [facility] [place] [address] [phone] Social History Tobacco Use Types Packs/Day Years Used Date Former Smoker Cigarettes 1.5 40 Quit: 01/09/20 03 Smokeless Tobacco: Never Used Alcohol Use Standard Drinks/Week Comments No 0 (1 standard drink = 0.6 oz pure alcoho l) Sex Assigned at Date Recorded Not on file documented as of this encounter Last Filed Vital Signs Vital Sign Reading Time Taken Comments Blood Pressure 130/70 12/26/2017 2:41 PM EDT Pulse 60 12/26/2017 2:41 PM EDT Temperature - - Respiratory Rate 12 12/26/2017 2:41 PM EDT Oxygen Saturation - - Inhaled Oxygen Concentration - - Weight 76.7 kg (169 lb) 12/26/2017 2:41 PM EDT Height 175.3 cm (5' 9) 12/26/2017 2:41 PM EDT Body Mass Index 24.96 12/26/2017 2:41 PM EDT documented in this encounter Progress Notes Michael Washburn Jr., MD - 12/26/2017 2:40 PM EDT Subjective: Patient ID: Ward Santamaria is a 67 y.o. male. Chief Complaint Patient presents with ??? Follow-up yearly HPI He has not been as active over the last few months but will start doing more now. He was also less compliant with his diet over the summer but has gotten better again. He has had no chest pain or limiting dyspnea. He denies palpitations, dizziness, edema, PND or orthopnea. His energy level is stable. Review of Systems denies other issues Allergies Allergen Reactions ??? Penicillins rash ??? Codeine Phosphate Rash Current Outpatient Prescriptions Medication Sig Dispense Refill ??? nitroGLYcerin (NITROSTAT) 0.4 mg Tablet, Sublingual ??? ABILIFY 15 mg Tablet Take 15 mg by mouth daily. ??? benzonatate (TESSALON) 100 mg Capsule ??? doxycycline (VIBRA-TABS) 100 mg Tablet ??? metoprolol succinate (TOPROL-XL) 50 [...] by mouth daily. No current facility-administered medications for this visit. Patient Active Problem List Diagnosis ??? History of basal cell carcinoma [...] negative ??? Basal cell cancer ??? Hypertriglyceridemia Objective: Physical Exam BP 130/70 Pulse 60 Resp 12 Ht 175.3 cm (5' 9) Wt 76.7 kg (169 lb) BMI 24.96 kg/m2 NAD No JVD/HJR Chest clear Cor RR, no murmur Abd benign Ext no edema Assessment and Plan: Well controlled angina- encouraged to keep up regular exercise Lipids- await labs from PCP next month Routine follow up yearly documented in this encounter Plan of Treatment Upcoming Encounters Date Type Specialty Care Team Description 10/21/2021 Infusion Hematology and Oncology 11/09/2021 Office Visit Hematology and Oncology Alhaji Ritchie MD [facility] DR ONCOLOGY DEPT. [place], [place] [address] (Wo rk) 11/09/2021 Infusion Hematology and Oncology 12/10/2021 Office Visit Dermatology Silas Walters MD [address] [place] [address] DERMATOLOGY [place], [place] [address] (Wo rk) 09/19/2039 Hospital Encounter Surgery Osman Barnett MD [facility] OTOLARYNGOLOGY D EPT. [place], [place] [address] (Wo rk) Scheduled Procedures Name [...] as of this encounter Visit Diagnoses Diagnosis ASCVD (arteriosclerotic cardiovascular d isease) Unspecified cardiovascular disease Hyperlipidemia, unspecified hyperlipidem ia type documented in this encounter Care Teams Pants Busheler Relationship Specialty Start Date End Date Tara Joya MD PCP - General Family Medicine 05/16/[address] [place] [place] [address] documented as of this encounter
--- OUTSIDE RECORDS SUMMARY | 2021-10-21 08:02 | XMS_ITS | Encounter Summary ---
:1950 Author Organization [facility] [place] [address] Care Team Providers Name Role Phone Tara Joya MD Primary Care Provider [phone] Reason for Visit Reason Comments Skin Check Encounter Details Date Type Department Care Team Description 11/06/2019 Office Visit Dermatology at [facility], History of basal cell carcinoma; Nona ROMERO History of SCC (squamous cell carcinoma) of skin; [address] [place] (actinic keratosis) [facility] DERMATOLOGY [place], [place] [id number] [phone] Social History Tobacco Use Types Packs/Day Years Used Date Former Smoker Cigarettes 1.5 40 Quit: 01/09/20 03 Smokeless Tobacco: Never Used Alcohol Use Standard Drinks/Week Comments No 0 (1 standard drink = 0.6 oz pure alcoho l) Sex Assigned at Date Recorded Not on file documented as of this encounter Progress Notes [facility] MD - 11/06/2019 2:00 PM EDT Problem: 1. 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 Unfortunately insurance did not cover his procedure last visit well and he has some paperwork to be filled out for his cancer insurance. Physical examination today shows excellent healing of the treated site on the left preauricular cheek where a squamous cell carcinoma was removed shave C&D. Fortunately otherwise careful examination of the thinning parietal scalp of the face the neck the chest the back the hands the arms informs is benign. He has type II Barahona pigmentation. Assessment plan: Benign skin examination in a patient with history of nonmelanoma skin cancer. 1. Patient reassured about his benign skin examination 2. Continue sun avoidance precautions 3. Return to clinic in a year for repeat check. Cc: Tara Joya MD documented in this encounter Plan of Treatment Upcoming Encounters Date Type Specialty Care Team Description 10/21/2021 Infusion Hematology and Oncology 11/09/2021 Office Visit Hematology and Oncology Alhaji Ritchie MD [facility] [address] ONCOLOGY DEPT. [place], [place] [address] (Jin carson) 11/09/2021 Infusion Hematology and Oncology 12/10/2021 Office Visit Dermatology [facility] MD [address] [place] [address] DERMATOLOGY [place], [place] [address] (Jin carson) 09/19/2039 Hospital Encounter Surgery Osman Barnett MD [facility] OTOLARYNGOLOGY D EPT. [place], [place] [address] (Jin carson) Scheduled Procedures Name [...] keratosis documented in this encounter Care Teams Skein Winder Relationship Specialty Start Date End Date Tara Joya MD PCP - General Family Medicine 05/16/[address] [place] [address] documented as of this encounter
--- OUTSIDE RECORDS SUMMARY | 2021-10-21 08:02 | XMS_ITS | Encounter Summary ---
:1950 Author Organization [facility] Address [facility] [place] [address] Care Team Providers Name Role Phone Tara Joya MD Primary Care Provider [phone] Reason for Visit Reason Comments Mass Encounter Details Date Type Department Care Team Description 02/07/2020 Emergency Emergency Department Nadia Pascal, Ear mass, left (Primary Lisha Alonso MD Dx) [facility] [address] [place] [address] [place] [address] [phone] (Wo rk) Social History Tobacco Use Types [...] Sign Reading Time Taken Comments Blood Pressure 150/87 02/07/2020 6:45 PM EST Pulse 64 02/07/2020 6:45 PM EST Temperature 36.9 ??C (98.4 ??F) 02/07/2020 6:45 PM EST Respiratory Rate 16 02/07/2020 6:45 PM EST Oxygen Saturation 97% 02/07/2020 6:45 PM EST Inhaled Oxygen Concentration - - Weight 77.1 kg (170 lb) 02/07/2020 3:06 PM EST Height - - Body Mass Index 25.1 01/31/2020 2:51 PM EST documented in this encounter Discharge Instructions Discharge InstructionsHola Tom MD - 02/07/2020 5:45 PM EST You are seen in the emergency department for bleeding from your left ear mass. The ear, nose, and throat specialists have evaluated you and placed bandaging over the ear. Please replace your Surgicel as needed. Unfortunately, this will likely continue to ooze slowly until your surgery is performed. Please follow-up with your ear, nose, and throat physicians as scheduled. Return to the ED immediately should your bleeding acutely worsen or if any other worrisome symptoms arise. documented in this encounter Medications at Time [...] into both eyes 4 Dropperette times daily. clindamycin (CLEOCIN) 300 mg Take 300 mg [...] mouth daily. documented as of this encounter ED Notes Nadia Pascal MD - 02/07/2020 4:46 PM EST ED PROVIDER NOTE Patient: Ward Santamaria Age (): 69 y.o. (1950) SUBJECTIVE CC: Chief Complaint Patient presents with ??? Mass HPI: Ward Santamaria is a 69 y.o. 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 Patient has suffered growing mass of the left ear for several weeks. Patient had biopsy performed 01/31/20 which was repaired with sutures. Since this, patient has had intermittent bleeding for the past 2 days and feels as though his mass is growing rapidly. Patient contacted ENT who recommended presentation to the ED. Aside from decreased hearing and increased size of left ear mass and intermittent bleeding, patient has no other complaints. No headache. No vision changes. No numbness or tingling. No pain around the ear. No fevers. No neck pain. No chest pain, shortness of breath, abdominal pain, or lower extremity pain. Hx: PMH, PSH, SH, and FH reviewed. No pertinent changes or recent events. ROS: A 10 point review of systems was performed and was negative aside from pertinent positives listed inHPI. OBJECTIVE VS: BP 150/87 Pulse 64 Temp 36.9 ??C (98.4 ??F) Resp 16 Wt 77.1 kg (170 lb) SpO2 97% BMI 25.10 kg/m?? PE: General: This is a well-nourished, well-developed male who appears his stated age. Skin: Necrotic mass or left ear with punctate bleeding. Neck: Symmetrical with midline trachea. Eyes: Visual acuity grossly intact. Sclera anicteric. Ears: Decreased hearing on the left with large necrotic mass over left ear with small bleeding as above. Nose: No bleeding or discharge. Chest/Pulmonary: No respiratory distress. Breathing unlabored. Cardiovascular: Warm extremities. Normal rate. Abdomen: Non-tender to palpation in all quadrants. No rebound or guarding. Musculoskeletal: No gross deformities to the extremities. Neurological: Attention, concentration, language, and fund of knowledge are within expected range. Speech is fluent with normal content. Psychiatric: Patient cooperative with appropriate behavior, thought content, and affect. ED Course: - Medications and fluid administered: Medications - No data to display - I have reviewed the labs, which are significant for: No anemia, normal PT and INR Recent Results (from the past 24 hour(s)) Basic Metabolic Panel (non-fasting) Result Value Ref Range Glucose Lvl 109 65 - 199 mg/dL BUN 22 (H) 10 - 20 mg/dL Creatinine 0.94 0.80 - 1.50 mg/dL Sodium 137 135 - 145 mmol/L Potassium 4.2 3.5 - 5.0 mmol/L Chloride 102 98 - 107 mmol/L CO2 25 22 - 31 mmol/L Anion Gap 10 5 - 15 mmol/L Calcium 9.6 8.5 - 10.5 mg/dL eGFR 83 >=60 mL/min/1.73 m?? eGFR 96 >=60 mL/min/1.73 m?? Prothrombin Time Result Value Ref Range PT 11.1 9.4 - 12.5 sec INR 1.0 APTT Result Value Ref Range PTT 32 25 - 37 sec Hemogram Result Value Ref Range WBC 13.0 (H) 4.0 - 9.5 x10(3)/mcL RBC 4.72 4.58 - 5.54 x10(6)/mcL Hemoglobin 14.3 13.7 - 16.5 gm/dL Hematocrit 42.0 40.5 - 48.5 % MCV 89.0 82.9 - 93.1 fL MCH 30.3 27.5 - 32.1 pg MCHC 34.0 32.0 - 35.7 gm/dL Platelets 254 145 - 357 x10(3)/mcL RDWSD 40.8 36.0 - 45.0 fL RDWCV 12.4 11.4 - 13.8 % MPV 8.8 7.6 - 12.9 fL nRBC % Auto 0.0 % nRBC Abs Auto 0.000 0.000 - 0.000 x10(3)/mcL Differential, Automated Result Value Ref Range Neutrophils % 55.3 % Neutr Abs (ANC) 7.20 (H) 1.70 - 6.10 x10(3)/mcL Lymphocytes % 20.7 % Lymphocytes Abs 2.7 0.9 - 3.2 x10(3)/mcL Monocytes % 9.3 % Monocyte Abs 1.2 (H) 0.3 - 0.9 x10(3)/mcL Eosinophils % 11.4 % Eosinophils Abs 1.5 (H) 0.0 - 0.4 x10(3)/mcL Basophils % 1.0 % Basophils Abs 0.1 0.0 - 0.1 x10(3)/mcL Immature Gran % 2.30 % Katelynn Gran Abs 0.30 (H) 0.00 - 0.04 x10(3)/mcL Gold Tube HOLD Result Value Ref Range Gold Hold Sample in lab. ASSESSMENT & PLAN MDM: Ward Santamaria is a 69 y.o. 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 DDX: Squamous cell carcinoma Patient presents to the ED with 2 days of intermittent bleeding from left ear mass. Patient has a large necrotic mass over the left ear with punctate bleeding on my evaluation. Fortunately, bleeding ishemostatic after gentle pressure. ENT was consulted who evaluated the patient and applied Surgicel as well as pressure wrap. I have no concerns for infection over the mass given patient denies any tenderness, warmth, fevers, chills, headaches, or pain in the area. ENT also has low suspicion for infection. ENT recommend frequent gauze exchanges and outpatient follow-up. Encourage patient to return to the ED immediately should his bleeding worsen or if any other concerning symptoms arise such as lightheadedness, dizziness, vision changes, chest pain, or shortness of breath. Patient voiced his agreement and understanding to the plan. PLAN: Discharged to home with outpatient ENT follow-up and strict return precautions. Hola Tom MD 02/07/20 11:21 PM Hola Tom MD Resident 02/07/20 8875 ED ATTENDING ATTESTATION NOTE The patient was seen in conjunction with Dr. Tom, the resident physician. I have independently performed the mcneal portions of the history and physical exam. I have reviewed the nursing notes, vital signs, and all diagnostic studies personally including labs, imaging studies and EKGs. I have discussed the details of the case with the resident and agree with the assessment and plan as described in the resident note unless noted otherwise. Brief Summary: bleeding ear mass as above, cauterized and dressed by ENT. Plan as above to include wound care, strict return precautions, and F/U. Final Assessment: as above Did this case involve critical care? No Have you asked a patient their goals of care (ie. what matters)? No Nadia Pascal MD 02/08/20 1028 Sunil Marsh APRN - 02/07/2020 3:02 PM EST Brief Provider Triage Note 69 y.o. male presents to the emergency department with enlarging tumor in the area of the left ear, now bleeding and from ear. Worsening x 1 week, bleeding x 2 days. No fever, respiratory symptoms. Per ENT nursing note from today -- Patient significantly hard of hearing and is accompanying as she is metal caster and helps to relay information to patient and answer questions due to hearing loss. Will allow to go back with patient initially, although she understands she may be asked to leave once he has been evaluated and c ommunicated information. Brief focused physical exam notable for alert male, NAD, non-toxic appearing, exam limited in triage, dried blood in area of ear. Patient responds to questions. Pulse 77 Temp 36.9 ??C (98.4 ??F) (Oral) Resp 16 Wt 77.1 kg (170 lb) SpO2 100% BMI 25.10 kg/m?? Plan: Labs, POCT urine dip Patient requires further evaluation, diagnosis and management in the emergency department. PPE worn during this encounter: Face shield and Level 2 mask Sunil Marsh APRN 02/07/20 1508 documented in this encounter Miscellaneous Notes Consult Note - Kian Mackenzie MD - 02/07/2020 4:25 PM EST Images from the original note were not included. [facility] [place] [facility] - [place] & Neck [place] New Patient Consult Date of Consultation: 02/07/2020 Patient: Ward Santamaria ([id number]; 1950) Patient Location: No information available for this encounter. Admitting Physician: No admitting provider for patient encounter. Primary Care Provider: Tara Joya MD ENT Attending:Dr. Mackenzie Reason for Consultation: Parotid Cancer History of Present Illness: Ward Santamaria is a 69 y.o. male with PMH significant for CAD, BPH, H/O drug use, Hep C, and BPH seen at the request of the ED. He was seen by Dr. Barnett and Dr. 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 His biopsy showed squamous cell carcinoma. He is scheduled to undergo a PET scan as well as a CT Temporal bone scan on 02/12/2020. He will return to clinic for surgical planning after these scans. He has returned today to the ED for increased bleeding in the area. He notes that he has not had any other changes to hismedical history. He denies significant pain, fevers, chills, weight loss, or any other changes. He co ntinues to have difficulty hearing out of his left ear due to the mass. He has not had any changes to his ability to move his facial muscles. He does have numbness post-auricularly surrounding the tumor. He notes that his bleeding is mild and generally oozes a bit every day. He is waking up with some blood on his pillow now and then. He denies any profuse bleeding. Review of Systems: Pertinent positive findings discussed above. No other findings on review of constitutional, visual, cardiovascular, respiratory, gastrointestinal, genitourinary, musculoskeletal, dermatologic, neurological, psychiatric, endocrine, hematologic or immunologic systems. Problem list: Patient Active Problem List Diagnosis Code ??? [...] left ear H93.8X2 ??? Parotid mass K11.8 Past Medical History: No past medical history on file. Past Surgical History: Past Surgical History: Procedure Laterality Date ??? KIDNEY STONE SURGERY ??? PRO COLONOSCOPY, REMV LESN, SNARE N/A 07/07/2015 COLONOSCOPY, POLYPECTOMY, REMOVAL LESION BY SNARE performed by Jose Manuel Heller MD at [facility] Medications: No current facility-administered medications on file prior to encounter. Current Outpatient Medications on File Prior to Encounter Medication Sig Dispense Refill ??? clindamycin (CLEOCIN) [...] ORAL Take 200 mg by mouth daily. Allergies: Penicillins and Codeine phosphate Social History: Lives in [facility] [id number] Social History Tobacco Use ??? Smoking status: Former Smoker Packs/day: 1.00 Years: 40.00 Pack years: 40.00 Types: Cigarettes Quit date: 01/08/2003 Years since quittin.0 ??? Smokeless tobacco: Never Used Substance Use Topics ??? Alcohol use: No ??? Drug use: No Family History: Family History Problem Relation Age of Onset ??? Other Father enlarged heart Physical Examination: Vitals: Temp: [36.9 ??C (98.4 ??F)] Heart Rate: [77] Resp: [16] BP: (153)/(78) SpO2: [100 %] Heart Rate from SpO2: -- Gen: well developed male. Intelligible speech, normal voice quality Face: facial movements intact Eyes: Extraocular movement is full and intact. Periocular structures and conjunctiva healthy withoutlesions. Ears: . External auditory canal without cerumen impaction or drainage on the right. Tympanic membrane intact with normal landmarks on the right, left side EAC completely occluded by tumor. Tumor extending from ~2cm anterior to tragus to post-auricular, Post-auricularly there is some pinpoint bleeding/oozing on tumor bed, some fluctuance noted in front of the tragus with some necrotic debris and serosanguinous fluid expressed, left EAC stenosed completely by tumor with some straw colored drainage (See pictures) Nose: Patent anteriorly; healthy pink mucosa without lesions. . Oral Cavity: Lips and gingiva pink, moist, without lesions. Gums/dentition healthy. Neck: Soft, supple, normal range of motion. Trachea midline without deviation. No crepitus Lymph: No abnormal cervical lymphadenopathy. Cardiovascular: regular rate and rhythm per monitor Respiratory: Breathing comfortably without stridor or grunting, flaring or retractions. Neuro: CN III, IV, - EOMI CN VII - Symmetric eyebrow raise, nose scrunch, smile, no facial droop, complete eye closure bilaterally CN IX, X - Palate and uvula midline CN XII - Tongue midline Skin: warm, dry, no abnormal lesions on the head or neck Ext: mobile, well perfused Psych: normal mood and affect, no evidence of depression or agitation. Procedures: Silver nitrate cautery was used on the tumor bed to control oozing. Surgicel was then applied to thearea followed by gauze and a facelift dressing. 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 His bleeding was well-controlled with silver nitrate cauterytoday Recommendations: -Patient provided with surgicel, gauze, and a facelift dressing to mitigate bleeding. He and his were given instruction on how to dress the tumor. - Education regarding warning signs that would necessitate a return to the ED was given - He will return as scheduled for imaging and surgical planning Please page if further questions or concerns arise. During daytime hours please page the ENT resident laborer construction or leak gang. For urgent evening and weekend issues page the ENT resident laborer construction or leak gang. ENT ATTENDING STAFF NOTE: I personally reviewed the above note including the documented history. I agree with the outlined plan. Kian Mackenzie MD ED Triage - Tonny Dela Cruz RN - 02/07/2020 3:06 PM EST Here with left ear tumor that has grown over the last week and bleeding the last 2 days. Ambulatory,pwd, RRR, even, unlabored. documented in this encounter Plan of Treatment Upcoming Encounters Date Type Specialty Care Team Description 10/21/2021 Infusion Hematology and Oncology 11/09/2021 Office Visit Hematology and Oncology Alhaji Ritchie MD [facility] DR ONCOLOGY DEPT. [place], [place] [address] (Jin carson) 11/09/2021 Infusion Hematology and Oncology 12/10/2021 Office Visit Dermatology Silas Walters MD [address] [place] [address] RD DERMATOLOGY [place], [place] [address] (Wo yamileth) 09/19/2039 Hospital Encounter Surgery Osman Barnett MD [facility] OTOLARYNGOLOGY D EPT. [place], [place] [address] (Jin carson) Scheduled Procedures Name [...] Name Priority Date/Time Associated Comments Diagnosis HEMOGRAM STAT 02/07/2020 4:54 PM Results f or this EST procedure are i n the results section. DIFFERENTIAL, AUTOMATED STAT 02/07/2020 4:54 PM Results for this EST procedure are i n the results section. GOLD TUBE HOLD STAT 02/07/2020 4:54 PM Results for this EST procedure are i n the results section. HC PARTIAL STAT 02/07/2020 4:54 PM Results f or this THROMBOPLASTIN TIME EST procedur e are in the results section. HC PROTHROMBIN TIME STAT 02/07/2020 4:54 PM Re sults for this EST procedure are i n the results section. HC CBC,PLT & AUTO DIFF STAT 02/07/2020 4:54 PM EST BASIC METABOLIC PANEL STAT 02/07/2020 4:54 PM Results for this (NON-FASTING) EST procedure are in the results section. documented in this encounter Results Gold Tube HOLD (02/07/2020 4:54 PM EST) athologist Signature Gold Hold Sample in [facility] lab. [facility] Specimen Anatomical Collection Method Collection Time Receive d Time (Source) Location / / Volume Laterality Blood specimen Venous Draw / 02/07/2020 4:54 PM 2019 5:14 (specimen) Unknown EST PM EST Sunil Marsh APRN CHEMISTRY ORDERABLES Performing Organization Address City/State/[place] [address] (ABNORMAL) Differential, Automated (02/07/2020 4:54 PM EST) Patholo gist Method Time Signature Neutrophils % 55.3 % [facility] Neutr Abs (ANC) 7.20 (H) 1.70 - [facility] 6.10 [facility] x10(3)/[facility] LABORATORY Lymphocytes % 20.7 % [facility] Lymphocytes Abs 2.7 0.9 - 3.2 [facility] x10(3)/[facility] LABORATORY Monocytes % 9.3 % [facility] Monocyte Abs 1.2 (H) 0.3 - 0.9 [facility] x10(3)/[facility] LABORATORY Eosinophils % 11.4 % [facility] Eosinophils Abs 1.5 (H) 0.0 - 0.4 [facility] x10(3)/[facility] LABORATORY Basophils % 1.0 % [facility] Basophils Abs 0.1 0.0 - 0.1 [facility] x10(3)/[facility] LABORATORY Immature Gran % 2.30 % [facility] Comment: Immature granulocytes(IG's)percentage an d absolute count will include metamyelocytes, myelocytes, and promyelo cytes. Blood smears from CBCs yielding IG's will be scanned manually for concor dance. If this scan disagrees with the automated IG or if promyelocytes are not ed, a manual differential will be performed. Katelynn Gran Abs 0.30 (H) 0.00 - 0.04 x10(3)/[facility] LABORATORY Specimen Anatomical Collection Method Collection Time Receive d Time (Source) Location / / Volume Laterality Blood specimen 02/07/2020 4:54 PM 020 5:13 (specimen) EST PM EST Resulting Agency Comment Spec In Lab Sunil Marsh APRN HEMATOLOGY ORDERABLES Performing Organization Address City/State/[place] [address] (ABNORMAL) Hemogram (02/07/2020 4:54 PM EST) Analysis Performed At Patho logist Time Signature WBC 13.0 (H) 4.0 - 9.5 LISHA DARLEEN x10(3)/[facility] LABORATORY RBC 4.72 4.58 - LISHA MILLERCOCK 5.54 [facility] x10(6)/[facility] LABORATORY Hemoglobin 14.3 13.7 - LISHA MILLERCOCK 16.5 gm/dL [facility] Hematocrit 42.0 40.5 - LISHA ALONSO 48.5 % [facility] MCV 89.0 82.9 - [facility] 93.1 [facility] LAB[facility]ATORY MCH 30.3 27.5 - LISHA DARLEEN 32.1 pg [facility] MCHC 34.0 32.0 - LISHA CORTESDARLEEN 35.7 gm/dL [facility] Platelets 254 145 - 357 [facility] x10(3)/[facility] LABORATORY RDWSD 40.8 36.0 - LISHA DARLEEN 45.0 [facility] LABORATORY RDWCV 12.4 11.4 - [facility] 13.8 % [facility] MPV 8.8 7.6 - 12.9 [facility] LABORATORY nRBC % Auto 0.0 % [facility] nRBC Abs Auto 0.000 0.000 - LISHA CORTESDARLEEN 0.000 [facility] x10(3)/[facility] LABORATORY Specimen Anatomical Collection Method Collection Time Receive d Time (Source) Location / / Volume Laterality Blood specimen 02/07/2020 4:54 PM 020 5:13 (specimen) EST PM EST Resulting Agency Comment Spec In Lab Sunil Marsh APRN HEMATOLOGY ORDERABLES Performing Organization Address City/State/[place] [address] APTT (02/07/2020 4:54 PM EST) P athologist Signature PTT 32 25 - 37 sec [facility] Comment: The PTT is NOT appropriate for heparin m onitoring. Use the Anti-Xa level for heparin monitoring (HEP UFH) or LMWH mon itoring (HEP LMW). A PTT less than 37 seconds generally indicates adequate hem ostasis. Specimen Anatomical Collection Method Collection Time Receive d Time (Source) Location / / Volume Laterality Blood specimen 02/07/2020 4:54 PM 11/19/2 020 5:13 (specimen) EST PM EST Resulting Agency Comment Spec In Lab Sunil Marsh APRN HEMATOLOGY ORDERABLES Performing Organization Address City/[facility]/[place] [address] Prothrombin Time (02/07/2020 4:54 PM EST) athologist Signature PT 11.1 9.4 - 12.5 [facility] LABORATORY INR 1.0 [facility] Comment: An INR <2.0 indicates adequate procoagul ant activity for hemostasis in most patients without underlying bleeding dis orders, though the INR may not adequately reflect hemostatic capacity i n patients with liver disease and synthetic impairment. The recommended ta rget INR range for therapeutic anticoagulation is 2.0 ? 3.0 for most applications, though lower and higher ranges may be appropriate depending on c linical circumstances. Specimen Anatomical Collection Method Collection Time Receive d Time (Source) Location / / Volume Laterality Blood specimen 02/07/2020 4:54 PM 020 5:13 (specimen) EST PM EST Resulting Agency Comment Spec In Lab Sunil Marsh APRN HEMATOLOGY ORDERABLES Performing Organization Address City/[facility]/[place] [address] (ABNORMAL) Basic Metabolic Panel (non-fasting) (02/07/2020 4:54 PM EST) athologist Signature Glucose Lvl 109 65 - 199 [facility] mg/dL [facility] Comment: Diabetes: >=200 mg/dL plus symp toms BUN 22 (H) 10 - 20 mg/dL [facility] Creatinine 0.94 0.80 - 1.50 mg/dL [facility] Sodium 137 135 - 145 mmol/L [facility] Potassium 4.2 3.5 - 5.0 mmol/L [facility] Comment: Please note: ??Patients with WBC >100,00 0 may have falsely elevated Potassium levels. ??For accurate Potassium quantif ication in these patients send serum separator tube (gold top) for subsequent determinations. ??Contact the Clinical Chemistry Laboratory if there are any qu estions. Chloride 102 98 - 107 mmol/L [facility] CO2 25 22 - 31 mmol/L [facility] Anion Gap 10 5 - 15 mmol/L [facility] Calcium 9.6 8.5 - 10.5 mg/dL [facility] Estimated GFR 83 >=60 mL/min/1.73 m?? [facility] Comment: The eGFR was calculated using the CKD-EP I equation. As with all creatinine based estimates of kidney function, eGFR values calculated with the CKD-EPI equation are not accurate in patients wi th acute kidney failure, extremes of body mass or the acutely ill. [email or web address]/Voxelnkf eGFR 96 >=60 mL/min/1.73 m?? [facility] Comment: The eGFR was calculated using the CKD-EP I equation. As with all creatinine based estimates of kidney function, eGFR values calculated with the CKD-EPI equation are not accurate in patients wi th acute kidney failure, extremes of body mass or the acutely ill. [email or web address] Specimen Anatomical Collection Method Collection Time Receive d Time (Source) Location / / Volume Laterality Blood specimen 02/07/2020 4:54 PM 020 5:13 (specimen) EST PM EST Resulting Agency Comment Spec In Lab Sunil Bacaicoa FEATHER DRYING MACHINE OPERATOR CHEMISTRY ORDERABLES Performing Organization Address City/State/[place] [address] documented in this encounter Visit Diagnoses Diagnosis Ear mass, left - Primary documented in this encounter Care Teams Video Game Technician Relationship Specialty Start Date End Date Tara Joya MD PCP - General Family Medicine 05/16/[address] [place] [address] documented as of this encounter
--- OUTSIDE RECORDS SUMMARY | 2021-10-21 08:02 | XMS_ITS | Encounter Summary ---
:1950 [place] [address] Care Team Providers Name Role Phone Tara Joya MD Primary Care Provider [phone] Reason for Visit Reason Comments Follow-up annual Coronary Artery Disease Hyperlipidemia Encounter Details Date Type Department Care Team Description 01/19/[facility] Coronary artery disease involving [place] heart, angina presence unspecified, unspecified vessel or lesion type; [facility] Hyperlipidemia, unspecified hyperlipidemia type [address] [place] [address] [place], [place] [phone] (Work) [phone] Social History Tobacco Use Types Packs/Day Years Used Date Former Smoker Cigarettes 1.5 40 Quit: 01/09/20 03 Smokeless Tobacco: Never Used Alcohol Use Standard Drinks/Week Comments No 0 (1 standard drink = 0.6 oz pure alcoho l) Sex Assigned at Date Recorded Not on file documented as of this encounter Last Filed Vital Signs Vital Sign Reading Time Taken Comments Blood Pressure 158/84 01/19/2019 2:37 PM EDT Pulse 91 01/19/2019 2:37 PM EDT Temperature - - Respiratory Rate 16 01/19/2019 2:37 PM EDT Oxygen Saturation - - Inhaled Oxygen Concentration - - Weight 75.9 kg (167 lb 6.4 oz) 01/19/2019 2:37 PM EDT Height 176.5 cm (5' 9.5) 01/19/2019 2:37 PM EDT Body Mass Index 24.37 01/19/2019 2:37 PM EDT documented in this encounter Progress Notes Lisha Salmeron MD - 01/19/2019 2:40 PM EDT CARDIOLOGY OUTPATIENT FOLLOW-UP NOTE PRIMARY CARE PROVIDER: Tara Joya MD REFERRING PROVIDER: Tara Joya PROBLEM LIST: Patient Active Problem List Diagnosis ??? History [...] negative ??? Basal cell cancer ??? Hypertriglyceridemia MEDICATIONS: Current Outpatient Medications Medication Sig Dispense Refill ??? nitroGLYcerin (NITROSTAT) [...] No current facility-administered medications for this visit. Subjective: Patient ID: Ward Santamaria is a 68 y.o. male. This 68-year-old man presents for annual follow-up. He has felt well since his last visit he denies any symptoms to suggest exertional angina. He denies shortness of breath with activity. He does not been dizzy or lightheaded. He has had no palpitations. He has not had to take any nitroglycerin Review of System Review of Systems Cardiovascular: Negative for chest pain, dyspnea on exertion and palpitations. Respiratory: Negative for shortness of breath. All other systems reviewed and are negative. Family History: Family History Problem Relation Age of Onset ??? Other Father enlarged heart Social History: Social History Socioeconomic History ??? Marital status: Spouse name: Not on file ??? Number of children: Not on file ??? Years of education: Not on file ??? Highest education level: Not on file Occupational History ??? Not on file Social Needs ??? Financial resource strain: Not on file ??? Food insecurity: Worry: Not on file Inability: Not on file ??? Transportation needs: Medical: Not on file Non-medical: Not on file Tobacco Use ??? Smoking status: Former Smoker Packs/day: 1.50 Years: 40.00 Pack years: 60.00 Types: Cigarettes Last attempt to quit: 01/08/2003 Years since quittin.0 ??? Smokeless tobacco: Never Used Substance and Sexual Activity ??? Alcohol use: No ??? Drug use: No ??? Sexual activity: Not on file Lifestyle ??? Physical activity: Days per week: Not on file Minutes per session: Not on file ??? Stress: Not on file Relationships ??? Social connections: Talks on phone: Not on file Gets together: Not on file Attends shinto service: Not on file Active member of club or organization: Not on file Attends meetings of clubs or organizations: Not on file Relationship status: Not on file ??? Intimate partner violence: Fear of current or ex partner: Not on file Emotionally abused: Not on file Physically abused: Not on file Forced sexual activity: Not on file Other Topics Concern ??? Not on file Social History Narrative ??? Not on file Objective: Physical Exam Constitutional: He is oriented to person, place, and time. He appears well- developed and well-nourished. HENT: Head: Normocephalic and atraumatic. Eyes: Pupils are equal, round, and reactive to light. EOM are normal. Neck: Normal range of motion. Neck supple. Cardiovascular: Normal rate, regular rhythm, normal heart sounds and intact distal pulses. Exam reveals no gallop. No murmur heard. Pulmonary/Chest: Effort normal and breath sounds normal. Abdominal: Soft. Musculoskeletal: Normal range of motion. He exhibits no edema. Neurological: He is alert and oriented to person, place, and time. Nursing note and vitals reviewed. Most Recent Vitals: 01/19/19 1437 BP: 158/84 Pulse: 91 Resp: 16 EKG performed today shows sinus rhythm at a rate of 76 is within normal limits Assessment and Plan: Coronary artery disease This appears stable. Patient describes normal exercise tolerance without anginal symptoms He should continue with ongoing risk factor modification Plan follow-up in 1 year, sooner as needed Thank you for the opportunity to participate in this patient's cardiovascular care. All questions were answered and I look forward to the next visit. documented in this encounter Plan of Treatment Upcoming Encounters Date Type Specialty Care Team Description 10/21/2021 Infusion Hematology and Oncology 11/09/2021 Office Visit Hematology and Oncology Alhaji Ritchie MD [facility] ONCOLOGY DEPT. [place], [place] [address] (Jin carson) 11/09/2021 Infusion Hematology and Oncology 12/10/2021 Office Visit Dermatology Silas Walters MD [address] [place] [address] DERMATOLOGY [place], [place] [address] (Wo rk) 09/19/2039 Hospital Encounter Surgery Osman Barnett MD [facility] OTOLARYNGOLOGY D EPT. [place], [place] [address] (Jin carson) Scheduled Procedures Name [...] Name Priority Date/Time Associated Diagnosis Comme nts EKG 12-LEAD Routine 01/19/2019 2:51 PM Results f or this EDT procedure are i n the results section . documented in this encounter Results EKG 12 Lead (01/19/2019 2:51 PM EDT) Component Value Ref Range Test Analysis Performed Pathologis t Method Time At Signature Ventricular rate 76 BPM MUSE SYSTEM Atrial Rate 76 BPM MUSE SYSTEM P-R Interval 158 ms MUSE SYSTEM QRS Duration 88 ms MUSE SYSTEM Q-T Interval 350 ms MUSE SYSTEM QTC Calculated 393 ms MUSE SYSTEM (Bezet) Calculated P [place] 55 degrees MUSE SYSTEM Calculated R [place] 25 degrees MUSE SYSTEM Calculated T [place] 35 degrees MUSE SYSTEM INTERPRETATION Normal sinus rhythm MUSE SYSTEM Normal ECG When compared with ECG of 24-APR-2001 11:15, No significant change was found Confirmed by MD Malave Daniel ([id number]) on 01/25/2019 11:27:3 7 AM Specimen Anatomical Collection Method Collection Time Receive d Time (Source) Location / / Volume Laterality 01/19/2019 2:51 PM 9 EDT 11:27 AM EST Unknown ECG ORDERABLES Performing Organization Address City/State/ZIP Code Phon e Number MUSE SYSTEM documented in this encounter Visit Diagnoses Diagnosis Coronary artery disease involving [place] heart, angina presence unspecified, unspecified vessel or lesion type Hyperlipidemia, unspecified hyperlipidem ia type documented in this encounter Care Teams Fire Extinguisher Charger Relationship Specialty Start Date End Date Tara Joya MD PCP - General Family Medicine 05/16/[address] [place] [address] documented as of this encounter
--- OUTSIDE RECORDS SUMMARY | 2021-10-21 08:02 | XMS_ITS | Encounter Summary ---
:1950 Author Organization [facility] [place] [address] Care Team Providers Name Role Phone Tara Joya MD Primary Care Provider [phone] Reason for Referral Diagnostic Test (Routine) - Closed Specialty Diagnoses / Procedures Referred By Contact Refer red To Contact Radiology Diagnoses Head mass [facility] Otolaryngology [address] [facility] Rad Ct Scan Procedures [place] [address] [address] [place] [address] Phone: Referral ID Status Reason Start Date Expiration Date Visits V isits Requested Authorized [id number] Closed Specialty 02/11/2020 03/27/2020 1 1 Service Requested Encounter Details Date Type Department Care Team Description 01/31/2020 Orders Only Otolaryngology at [facility] Lisa Razo Head mass (Primary [facility] Sharlene Espino RN Dx) [place] [address] Social History Tobacco Use Types Packs/Day [...] [facility] DR ONCOLOGY DEPT. [place], [place] [address] (Wo rk) 11/09/2021 Infusion Hematology and Oncology 12/10/2021 Office Visit Dermatology Silas Walters MD [address] [facility] DERMATOLOGY [place], [place] [address] (Wo rk) 09/19/2039 Hospital Encounter Surgery Osman Barnett MD [facility] OTOLARYNGOLOGY D EPT. [place], [place] [address] (Wo rk) Scheduled Procedures Name [...] documented as of this encounter Results CT Temporal Bone w [...] For questions regarding this report, please contact th e number below. ? Electronically signed by: Petey russell MD, [facility] ([phone]), at 02/12/2020 4:57 PM Narrative 02/12/2020 4:57 [...] For questions regarding this report, please contact [facility] number below. Electronically signed by: Petey russell MD, [facility] ([phone]), at 02/12/2020 4:57 PM Osman Barnett MD IMG CT ORDERABLES documented in this encounter Visit Diagnoses Diagnosis Head mass - Primary Swelling, mass, or lump in head and neck Head mass Swelling, mass, or lump in head and neck documented in this encounter Care Teams Inspector Tester Sorter Relationship Specialty Start Date End Date Tara Joya MD PCP - General Family Medicine 05/16/[address] [place] [address] documented as of this encounter
--- OUTSIDE RECORDS SUMMARY | 2021-10-21 08:02 | XMS_ITS | Encounter Summary ---
:1950 Author Organization [facility] [address] Care Team Providers Name Role Phone Tara Joya MD Primary Care Provider [phone] Encounter Details Date Type Department Care Team Description 01/11/2020 Ancillary Procedure Radiology Library at [place], [place] garrett [facility] MD Kenzie [facility] [address] [place] [address] [place] [address] [phone] (Wo rk) Social History Tobacco Use Types [...] Hematology and Oncology Alhaji Ritchie MD [facility] DR ONCOLOGY DEPT. [place], [place] [address] (Wo rk) 11/09/2021 Infusion Hematology and Oncology 12/10/2021 Office Visit Dermatology Silas Walters MD [address] [place] [address] DERMATOLOGY [place], [place] [address] (Wo rk) 09/19/2039 Hospital Encounter Surgery Osman Barnett MD [facility] OTOLARYNGOLOGY Sharlene EPT. [place], [place] [address] (Wo rk) Scheduled Procedures Name [...] Associated Diagnosis Comme nts FILM LIBRARY Routine 01/11/2020 12:00 AM Results for this STORAGE ONLY MR EDT procedure ar e in HEAD AND SPINE the results section. documented in this encounter Results Film Library- Storage Only MR Head and Spine (01/11/2020 12:00 AM EDT) Specimen (Source) Anatomical Location Collection Method / Collectio n Time Received Time / Laterality Volume Narrative RAD - 01/23/2020 2:07 PM EST This exam is auto-finalizing. It's purpo se is for storage only. Tara Joya MD IMG FILM LIBRARY ORDERABLES Performing Organization Address City/State/ZIP Code Phon e Number [place], [place] documented in this encounter Visit Diagnoses Not on filedocumented in this encounter Care Teams Securities Broker Relationship Specialty Start Date End Date Tara Joya MD PCP - General Family Medicine 05/16/[address] [place] [address] documented as of this encounter
--- OUTSIDE RECORDS SUMMARY | 2021-10-21 08:02 | XMS_ITS | Encounter Summary ---
:1950 Author Organization [facility] [place] [address] Care Team Providers Name Role Phone Tara Joya MD Primary Care Provider [phone] Encounter Details Date Type Department Care Team Description 01/31/2020 Notes Only Otolaryngology at [facility] Wendy Beavers, [place] [address] Social History Tobacco Use Types Packs/Day Years Used Date Former Smoker Cigarettes 1 40 Quit: 01/09/20 03 Smokeless Tobacco: Never Used Alcohol Use Standard Drinks/Week Comments No 0 (1 standard drink = 0.6 oz pure alcoho l) Sex Assigned at Date Recorded Not on file documented as of this encounter Progress Notes Wendy Beavers, RN - 01/31/2020 11:59 PM EST [facility] Oncology Nurse Navigation Patient Intake & Care Plan Met with 69 yo Ward Santamaria, who has a diagnosis of left parotid and ear mass, to assess for nurse navigation services. Present during this interview is spouse, Nika. Dr. Barnett reviews patient's symptoms. Patient first noticed lesion approximately 2 months ago. Ward reports that the mass has grown significantly in the last 2 weeks. Yesterday he began taking hydrocodone for pain. Sees a dentist regularly. Recently had 3 teeth extracted; may need more. Patient will need surgical resection. He was able to be seen by Dr. Gilman and Audiology today. Ward feels well supported by his and family [place] states that they have been together for 42 years. Deny any express concerns regarding transportation, finances, or health insurance. Nika worksfull-time in accounting at a healthcare/insurance organization. 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 Family is nearby, including their 24-year-old adult child and 6-year-old grandson who lives in their apartment house. 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 Ward and Nika moved to [place] from [place]. They areboth eager to proceed with treatment. Reviewed general timeline of both definitive treatment and surgery with adjuvant treatment, emphasizing the importance of early dental extractions, if needed. Also discussed long-term follow-up schedule. If definitive/adjuvant treatment is needed, patient would prefer [facility]. PLAN: ??? PET scan ??? CT temporal bone ??? Combo OR case between Ericka and Mukul Nurse Navigator Assessment Potential or realized barriers to treatment include: Insurance / Financial Concerns: Information/ Resources Physical Health Concerns: Education-Disease Process, Treatment, Medication(pain) Social / Communication / Cultural Support: No Social/ Communication/Cultural Concerns Supportive Services: No Referrals at this Time Appointments Scheduled / Pending with Dates If Known: Diagnostic Imaging Treatment Compliance Issues: No Treatment Compliance Issues Head and Neck Oncology Nurse Navigator is Wendy Beavers RN, BSN (pager [phone]). documented in this encounter Plan of Treatment Upcoming Encounters Date Type Specialty Care Team Description 10/21/2021 Infusion Hematology and Oncology 11/09/2021 Office Visit Hematology and Oncology Alhaji Ritchie MD [facility] ONCOLOGY DEPT. [place], [place] [address] (Jin carson) 11/09/2021 Infusion Hematology and Oncology 12/10/2021 Office Visit Dermatology Silas Walters MD [address] [place] [address] DERMATOLOGY [place], [place] [address] (Jin carson) 09/19/2039 Hospital Encounter Surgery Osman Barnett MD [facility] OTOLARYNGOLOGY D EPT. [place], [place] [address] (Wo rk) Scheduled Procedures Name [...] on filedocumented in this encounter Care Teams Volunteer Recruitment Coordinator Relationship Specialty Start Date End Date Tara Joya MD PCP - General Family Medicine 05/16/[address] [address] documented as of this encounter
--- OUTSIDE RECORDS SUMMARY | 2021-10-21 08:02 | XMS_ITS | Encounter Summary ---
:1950 Author Organization [place] [address] Care Team Providers Name Role Phone Tara Joya MD Primary Care Provider [phone] Encounter Details Date Type Department Care Team Description 01/31/2020 Orders Only Otolaryngology at [facility] Gisel Torres Head mass ([facility] Sharlene Espino RN Dx) [place] [address] Social History Tobacco Use Types Packs/Day Years Used Date Former Smoker Cigarettes 1 40 Quit: 01/09/20 03 Smokeless Tobacco: Never Used Alcohol Use Standard Drinks/Week Comments No 0 (1 standard drink = 0.6 oz pure alcoho l) Sex Assigned at Date Recorded Not on file documented as of this encounter Miscellaneous Notes Addendum Note - Gisel Torres RN - 01/31/2020 4:10 PM EST Addended by: GISEL TORRES on: 01/31/2020 04:14 PM Modules accepted: Orders documented in this encounter Plan of Treatment Upcoming Encounters Date Type Specialty Care Team Description 10/21/2021 Infusion Hematology and Oncology 11/09/2021 Office Visit Hematology and Oncology Alhaji Ritchie MD [facility] DR ONCOLOGY DEPT. [place], [place] [address] (Wo rk) 11/09/2021 Infusion Hematology and Oncology 12/10/2021 Office Visit Dermatology Silas Walters MD [address] DERMATOLOGY [place], [place] [address] (Wo rk) 09/19/2039 Hospital Encounter Surgery Osman Barnett MD [facility] OTOLARYNGOLOGY Sharlene EPT. [place], [place] [address] (Wo rk) Scheduled Procedures Name [...] as of this encounter Visit Diagnoses Diagnosis Head mass - Primary Swelling, mass, or lump in head and neck documented in this encounter Care Teams Counterperson Relationship Specialty Start Date End Date Tara Joya MD PCP - General Family Medicine 05/16/[address] [place] [address] documented as of this encounter
--- OUTSIDE RECORDS SUMMARY | 2021-10-21 08:02 | XMS_ITS | Encounter Summary ---
:1950 Author Organization [facility] [place] [address] Care Team Providers Name Role Phone Tara Joya MD Primary Care Provider [phone] Reason for Visit Reason Comments Follow-up Encounter Details Date Type Department Care Team Description 03/20/2019 Office Visit Dermatology at [facility], History of basal cell carcinoma; Nona ROMERO History of SCC (squamous cell carcinoma) of skin [address] [facility] [address] DERMATOLOGY [place], [place] [address] [phone] Social History Tobacco Use Types Packs/Day Years Used Date Former Smoker Cigarettes 1.5 40 Quit: 01/09/20 03 Smokeless Tobacco: Never Used Alcohol Use Standard Drinks/Week Comments No 0 (1 standard drink = 0.6 oz pure alcoho l) Sex Assigned at Date Recorded Not on file documented as of this encounter Progress Notes Silas Walters MD - 03/20/2019 2:00 PM EST Problem: 1. New lesion of concern left preauricular cheek, new site 2. 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 History of BCCA left antecubital fossa January 2014 4. 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 Physical examination reveals a papular nodule central ulceration 7 x 8 mm in size on the left preauricular cheek immediately in front of the ear. This is a different site than his from his last visit in October Assessment and plan: SCC versus BCCA left preauricular cheek 1. After obtaining informed patient consent, the site was anesthetized and removed with shave C&D x3 2. Triple antibiotic ointment and bandage placed. Wound care instructions and supplies given 3. After curettage site measured 8 mm in diameter 4. Return to clinic next October for his yearly skin checkup. Cc: Tara Joya MD ?? documented in this encounter Plan of Treatment Upcoming Encounters Date Type Specialty Care Team Description 10/21/2021 Infusion Hematology and Oncology 11/09/2021 Office Visit Hematology and Oncology Alhaji Ritchie MD [facility] DR ONCOLOGY DEPT. [place], [place] [address] (Wo rk) 11/09/2021 Infusion Hematology and Oncology 12/10/2021 Office Visit Dermatology Silas Walters MD [address] DERMATOLOGY [place], [place] [address] (Wo rk) 09/19/2039 Hospital Encounter Surgery Osman Barnett MD [facility] OTOLARYNGOLOGY D EPT. [place], [place] [address] (Jin carson) Scheduled Procedures Name [...] skin documented in this encounter Care Teams Lubricating Engineer Relationship Specialty Start Date End Date Tara Joya MD PCP - General Family Medicine 05/16/[address] [place] [address] documented as of this encounter
--- OUTSIDE RECORDS SUMMARY | 2021-10-21 08:02 | XMS_ITS | Encounter Summary ---
:1950 [place] [address] Care Team Providers Name Role Phone Tara Joya MD Primary Care Provider [phone] Reason for Visit Auth/Cert Specialty Diagnoses / [...] TRUNK OR HEAD PRO RESECT TEMPORAL BONE, COLLECTIONS REP APPRCH EXCISION OF PAROTID TUMOR OR PAROTID [...] Expiration Date Visits Requ ested Visits Authorized [id number] 1 1 Encounter Details Date Type Department Care Team Description 02/20/2020 Surgery Main Operating Room Osman Barnett EXC ISION OF PAROTID Lisha Lobo MD TUMOR OR PAROTID GLAND, [facility] TOTAL, WITH DISSECTION [facility] AND PRESERVATION OF Drive OTOLARYNGOLOGY FACIAL [place]ERV[place] ([place] [address] DEPT. 19.53) [phone] [place], [place] [address] (Wo rk) Social History Tobacco [...] Reading Time Taken Comments Blood Pressure 145/76 02/20/2020 6:14 AM EST Pulse 71 02/20/2020 6:14 AM EST Temperature 37.4 ??C (99.3 ??F) 02/20/2020 6:14 AM EST Respiratory Rate 20 02/20/2020 6:14 AM EST Oxygen Saturation 97% 02/20/2020 6:14 AM EST Inhaled Oxygen Concentration - - Weight - - Height - - Body Mass Index - - documented in this encounter Discharge Summaries Kyle [...] mass performed. The specimen was sent to [facility] and per patient he was told it was concerning for malignancy. We do not have the report dueto the [facility] EMR being down. The patient denies any [...] last 72 hours. Imaging and Other Studies: Vt Pet Ct Standard Plus Head And Neck Result Date: 02/12/2020 EXAMINATION: [place] PET CT STANDARD PLUS HEAD AND NECK CLINICAL HISTORY: large mass involving left ear and face TECHNIQUE: Following IV injection of 02-oncwuv-0-deoxyglucose (FDG) a standard uptake of approximately 60 [...] signed by: Meli Richards MD, [facility] ([phone]), at 02/12/2020 5:[address] Temporal Bone [...] canal. Involvement of the left parapharyngeal and manager multimedia spaces. I have personally reviewed the image(s) and the resident's interpretation and agree with the findings, Petey Johnson MD at 02/12/2020 4:57 PM Thank you for letting us participate in the care of this patient. For questions regarding this report, please contact the number below. Electronically signed by: Petey Johnson MD, [facility] ([phone]), at 02/12/2020 4:57 PM Discharge Info Discharge [...] HYDROcodone-acetaminophen 5-325 mg Tab Commonly known as: [place] Take 1 tablet by mouth every 6 hours as needed for Pain. 1 tablet Quantity: 15 tablet Refills: 0 * HYDROcodone-acetaminophen 5-325 mg Tab Commonly known as: [place] Take 1 tablet by mouth every 6 [...] -You can reach the ENT clinic at [phone] for appointment questions. -The ENT triage nurse is available at [phone] -For urgent issues during evenings (5 PM - 7 AM) and weekends the ENT resident rugby union footballer can be reached through the main hospital veneer lathe operator at [phone] Follow Up: You will need to follow [...] 4:30 PM Urbano Beck PA Otol[place]ology at [facility] Arrive at: Balance Staff Inspector Area 4F [phone] 11/06/2020 1:30 PM Silas Walters MD Dermatology at [place] Arrive at: [facility] [address] [phone] [facility] DRAIN CARE INSTRUCTIONS How do I care [...] bad odor. Call the Otolaryngology office at [phone] with any questions or concerns Drainage Record NAME: Date of Surgery: Date: Time: If more than one drain, which one: Drainage Amount (per drain) Total Amount (per drain; in 24 hours) General Instructions [facility] DRAIN CARE INSTRUCTIONS How do I care [...] bad odor. Call the Otolaryngology office at [phone] with any questions or concerns Drainage Record NAME: Date of Surgery: Date: Time: If more than one drain, which one: Drainage Amount (per drain) Total Amount (per drain; in 24 hours) __ Primary Care Doctor: Tara Joya MD [phone] Signed: Kyle Billy MD 02/26/2020 Routed to Wendy Beavers since H&N Cancer patient documented in this encounter Discharge Instructions Discharge InstructionsEnma Ragland MD - 02/21/2020 1:30 PM EST Images from the original note were not included. [facility] DRAIN CARE INSTRUCTIONS How do I care [...] bad odor. Call the Otolaryngology office at [phone] with any questions or concerns Drainage Record NAME: Date of Surgery: Date: Time: If more than one drain, which one: Drainage Amount (per drain) Total Amount (per drain; in 24 hours) Patient InstructionsAracely Ewing MD - 02/21/2020 1:24 PM EST Images [...] -You can reach the ENT clinic at [phone] for appointment questions. -The ENT triage nurse is available at [phone] -For urgent issues during evenings (5 PM - 7 AM) and weekends the ENT resident rugby union footballer can be reached through the main hospital veneer lathe operator at [phone] Follow Up: You will need to follow [...] 4:30 PM Urbano Beck PA Otolaryngology at [facility] Arrive at: Balance Staff Inspector Area 4F [phone] 11/06/2020 1:30 PM Silas Walters MD Dermatology at [place] Arrive at: [facility] [address] [phone] [facility] DRAIN CARE INSTRUCTIONS How do I care [...] bad odor. Call the Otolaryngology office at [phone] with any questions or concerns Drainage Record [...] 1 tablet 10 tablet 0 020 03/10/2020 ([place]) 5-325 mg by mouth every TabletIndications: Parotid mass 6 hours as needed for Pain. HYDROcodone-acetaminophen Take 1 tablet 15 tablet 0 020 04/07/2020 ([place]) 5-325 mg by mouth every TabletIndications: Parotid [...] PGY-4 02/25/20 7:42 AM ENT Team Pager: [phone] Kaylan Enrique MD - 02/24/2020 9:13 AM [...] PGY-4 02/24/20 9:13 AM ENT Team Pager: [phone] Helio Doherty, RN - 02/24/2020 8:03 AM ESTSummary: notification and continuum of care At the [...] well as blood pressure throughoutthe shift. Kaylan Cordoba MD - 02/23/2020 6:12 AM EST OTOLARYNGOLOGY - HEAD & NECK SURGERY DAILY PROGRESS NOTE Name: Ward Santamaria Age/Sex: 69 y.o. male Attending: Osamn Barnett MD Hospital Day: 4 3 Days [...] PGY-4 02/23/20 5:08 AM ENT Team Pager: [phone] Luh Sin RN - 02/22/2020 11:34 AM EST The patient's Nika has been provided a list of Home Health Agencies/DME vendors which serve their preferred geographic area. A letter describing our affiliations was reviewed with them and they were educated about their right to choose where referrals are placed. Provided patient with [facility] Star Quality Rating for Home care hand out. Patient requests referral to: [facility] in [place], [place] and [phone] Expected date of discharge: 02/25 - 02/27/20 Referral routed to the Screen Printing Equipment Setter for matching with agency/vendor and to provide [...] (726) Continue atorvastatin, fenofibrate and metoprolol DC [place] after last ABG Transient Twave changes possible [...] PGY1 02/22/20 6:49 AM ENT Team Pager: [phone] Richi Jhaveri, RN - 02/21/2020 7:51 PM EST OUTCOME [...] EVALUATION: Continue care plan as documented. Enma Ragland MD - 02/21/2020 11:45 AM EST OTOLARYNGOLOGY - HEAD & NECK SURGERY DAILY PROGRESS NOTE Name: Ward Santamaria Age/Sex: 69 y.o. male Attending: Osman Barntet MD Hospital Day: 2 1 Day Post-Op [...] flap site and discomfort at his current Gerda site. Otherwise, there were no acute events [...] & oriented, moving extremities x 4, finger head swamper strength 5/5 Labs Recent Labs 02/21/20 0400 [...] (726) Continue atorvastatin, fenofibrate and metoprolol DC [place] after last ABG Transient Twave changes possible [...] continue to monitor Consults: - Lines: JPx3, Gerda, seals, PIV Prophylaxis: Lovenox, SCDs, ambulation Disposition: Stepdown status, Attempt Cardiopulmonary Resuscitation - Inpatient Discharge: Plan for d/c in 4-5 days; Needs VNA; Follow-up ENT Enma Ragland MD, PGY1 02/21/20 11:46 AM ENT Team Pager: [phone] Alycia Menezes RN - 02/20/2020 9:46 PM EST Arrived to PACU from OR. Pt attached to monitors, alarms active and audible, set appropriately for pt. VSS. Chest and neck incisions CDI, 3 MAURA drains, draining without issue. Pt c/o pain, medicated andpain re assessed appropriately. Hand off report given to CONNOR Wasserman Catalina Rojas MD - 02/20/2020 5:47 PM EST OTOLARYNGOLOGY [...] Personally reviewed and evaluated ASSESSMENT & PLAN Ward Santamaria is a 69 y.o. male s/p [...] PGY1 02/20/20 11:53 PM ENT Team Pager: [phone] documented in this encounter H&P Notes Aracely [...] scheduled operation. Aracely Ewing MD, PGY2, Pager [phone] 02/20/20 6:58 AM ENT Team Pager: [phone] documented in this encounter Nursing Notes Lisy Fam RN - 02/21/2020 12:58 AM EST 2315-Received report from [place] 0000-Pt assessed and heard a murmur. Pt denies chest pain and SOB and any history of murmurs or arrhythmias -MD Jones messaged and made aware, she will assess when he arrives in his room shortly as he was too sleepy at the first assessment. [facility] called to ask if they would accept [...] eyebrow at this time. 0135-Pt transported to [facility]. A-line remains in place. Flap check done with [facility] nurse-no changes. documented in this encounter Miscellaneous [...] was called with the discharge instructions. VSS, WCYOUNG. Ward Santamaria discharged to home with via [...] until formal discharge. Lisa Hairston, PT Pager #[phone] Plan of Care - Pita Bradley RN - 02/26/2020 4:55 AM EST Problem: Patient Care Overview Goal: Plan of Care Review Outcome: Ongoing (Interventions Implemented as Appropriate) 02/26/20 7928 Coping/Psychosocial Plan Of Care Reviewed With patient Plan of Care Review Progress progress toward functional goals is gradual OUTCOME EVALUATION NOTE: OUTCOME SUMMARY: A+O x4. VSS. No new changes. Pt c/o neck pain that is moderately controlled w/ scheduled/prn medications and repositioning prn. L neck incision noted to have scant serosanguinous drainage. Otherwise, incisions JOHN PAUL and CDI. Q4 flap monitoring WDL. 2 [...] to be D/C with a FWW. Incisions JOHN PAUL, C/D/I. Flap check WDL.Reported pain, given PRN medication for pain (see MAR), with positive effect. MAURA with minimal outputthroughout shift (see I&O). Only 2 MAURA drains remaining. will come and hot die picker patient. Plan to transfer to the [...] X2 with FWW (see flow sheets). Incisions JOHN PAUL, C/D/I. Flap check WDL. Reported pain, given [...] 0.54) performed by Osman Barnett MD at [facility] MAIN OR ??? PRO ADJ TISS TRANSFER/REARRANGEMENT ANY AREA 30.1-60 SQCM Left 02/20/2020 ADJACENT TISSUE TRANSFER OR REARRANGEMENT; 30.1 TO 60.0 SQ CM, THORAX (WRVU 12.65) performed by Osman Barnett MD at [facility] MAIN OR ??? PRO ADJ TISS TRANSFER/REARRANGEMENT ANY AREA EA ADDL 30SQCM Left 02/20/2020 ADJACENT TISSUE TRANSFER OR REARRANGEMENT; EA ADD'L 30.0 SQ CM, OR PART OF (WRVU 3.73) performed byOsman Barnett MD at [facility] MAIN OR ??? PRO COLONOSCOPY, REMV LESN, SNARE N/A 07/07/2015 COLONOSCOPY, POLYPECTOMY, REMOVAL LESION BY SNARE performed by Jose Manuel Heller MD at [facility] ENDOSCOPY ??? PRO EXC PAROTD, TOTAL, DISSECT 5TH NERV Left 02/20/2020 EXCISION OF PAROTID TUMOR OR PAROTID GLAND, TOTAL, WITH DISSECTION AND PRESERVATION OF FACIAL NERVE(WRVU 19.53) performed by Osman Barnett MD at [facility] MAIN OR ??? PRO EXC SKIN MALIG 3.1-4CM FACE, FACIAL Left 02/20/2020 EXC MALIGNANT LESION, 3.1 TO 4.0CM, FACE (WRVU 4.34) performed by Osman Barnett MD at [facility] MAIN OR ? ? PRO EXC SKIN MALIG >4CM FACE, FACIAL Left 02/20/2020 EXC MALIGNANT LESION, >4.0CM, EARS (WRVU 6.26) performed by Osman Barnett MD at [facility] VANNESA ??? PRO MICROSURG TECHNIQUES, REQ OPER MICROSCOPE N/A 02/20/2020 MICROSCOPE USE (WRVU 3.46) performed by Neo Gilman MD at [facility] MAIN OR ??? PRO MUSCLE-SKIN FLAP, TRUNK Left 02/20/2020 FLAP, MYOCUTANEOUS OR FASCIOCUTANEOUS, TRUNK (WRVU 19.86) performed by Osman Barnett MD at [facility] MAIN OR ??? PRO REMOVAL NODES, NECK, CERV MOD RAD Left 02/20/2020 @CERVICAL LYMPHADENECTOMY (MODIFIED RADICAL NECK DISSECTION) (WRVU 23.95) performed by Osman Barnett MD at [facility] MAIN OR ??? PRO RESECT TEMPORAL BONE, COLLECTIONS REP APPRCH Left 02/20/2020 @RESECTION TEMPORAL BONE, EXTERNAL APPROACH (WRVU 37.42) performed by Neo Gilman MD at [facility] Social History: Patient lives with in a house in [place], [place] Home Setup: Pt reports 4 DOREEN with b/l rails. Pt has a FOS to bedroom and full bathroom. Pt sleeps barron waterbed with hardwood box frame, but reports that he could sleep in the lazy boy. DME: None Baseline ADL/Mobility: Pt independent at baseline with all ADL and IADL routines. Pt is retired. 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 Pt works full-time, but can take timeoff to assist Pt upon discharge. Precautions/Special Considerations: head in neutral or turn to L only, 3 MAURA drains, STANDING ROCK, eye chamberfor L (difficulty with full closure), [...] & Perception: ?? WNL/WFL ?? corrective lenses realtime captioner ?? Pt not wearing glasses at this [...] and measurable assessment of functional outcome. Pager: [phone] Sherin Medeiros OT 02/22/2020 Occupational Therapy Rehabilitation [...] 0.54) performed by Osman Barnett MD at [facility] MAIN OR ??? PRO ADJ TISS TRANSFER/REARRANGEMENT ANY AREA 30.1-60 SQCM Left 02/20/2020 ADJACENT TISSUE TRANSFER OR REARRANGEMENT; 30.1 TO 60.0 SQ CM, THORAX (WRVU 12.65) performed by Osman Barnett MD at [facility] MAIN OR ??? PRO ADJ TISS TRANSFER/REARRANGEMENT ANY AREA EA ADDL 30SQCM Left 02/20/2020 ADJACENT TISSUE TRANSFER OR REARRANGEMENT; EA ADD'L 30.0 SQ CM, OR PART OF (WRVU 3.73) performed byOsman Barnett MD at [facility] MAIN OR ??? PRO COLONOSCOPY, REMV LESN, SNARE N/A 07/07/2015 COLONOSCOPY, POLYPECTOMY, REMOVAL LESION BY SNARE performed by Jose Manuel Heller MD at [facility] ENDOSCOPY ??? PRO EXC PAROTD, TOTAL, DISSECT 5TH NERV Left 02/20/2020 EXCISION OF PAROTID TUMOR OR PAROTID GLAND, TOTAL, WITH DISSECTION AND PRESERVATION OF FACIAL NERVE(WRVU 19.53) performed by Osman Barnett MD at [facility] MAIN OR ??? PRO EXC SKIN MALIG 3.1-4CM FACE, FACIAL Left 02/20/2020 EXC MALIGNANT LESION, 3.1 TO 4.0CM, FACE (WRVU 4.34) performed by Osman Barnett MD at [facility] MAIN OR ? ? PRO EXC SKIN MALIG >4CM FACE, FACIAL Left 02/20/2020 EXC MALIGNANT LESION, >4.0CM, EARS (WRVU 6.26) [facility]?? PRO MICROSURG TECHNIQUES, REQ OPER MICROSCOPE N/A 02/20/2020 MICROSCOPE USE (WRVU 3.46) performed by Neo Gilman MD at [facility] MAIN OR ??? PRO MUSCLE-SKIN FLAP, TRUNK Left 02/20/2020 FLAP, MYOCUTANEOUS OR FASCIOCUTANEOUS, TRUNK (WRVU 19.86) performed by Osman Barnett MD at [facility] MAIN OR ??? PRO REMOVAL NODES, NECK, CERV MOD RAD Left 02/20/2020 @CERVICAL LYMPHADENECTOMY (MODIFIED RADICAL NECK DISSECTION) (WRVU 23.95) performed by Osman Barnett MD at [facility] MAIN OR ??? PRO RESECT TEMPORAL BONE, COLLECTIONS REP APPRCH Left 02/20/2020 @RESECTION TEMPORAL BONE, EXTERNAL APPROACH (WRVU 37.42) performed by Neo Gilman MD at [facility] Active Non-Hospital Problems Diagnosis ??? History of [...] Hypertriglyceridemia Social History: Home set-up: Lives in [place], [place] with his (she works realtime captioner at a hotel) Bathroom Set-up: tub shower, no seat Stairs: 4 to enter wit 2 railings, FOS to his bedroom, sleeps on a water bed Baseline Mobility: independent Equipment at home: has a lazyboy on the first floor he can sleep in Fall history: none Precautions/Special Considerations: head neutral or to the L side, MAURA drains x2, NSCU monitoring, L neck incision, STANDING ROCK Mobility and Positioning Recommendations: ?? Pt. to [...] Sit to Supine: HOB elevated, increased pain, Monica provided Transfers: Sit to Stand: cgA, FWW [...] in this evaluation. Time IN / OUT: 3669-7344 Total Evaluation Minutes, Physical Therapy: 35(eval; TEF) Alfred Parnell PT Pager: [phone] Physical Therapy Inpatient Rehabilitation Department Initial Assessments [...] 1200 Hospitalizations Within the Past 30 Days: [facility] admits in last 30 days: ED, 02/17/20: Ward Santamaria brandon 69 y.o. 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 Anticipated Length Of Stay (If known): 6 days Vs TBD Current Decision-Making Capacity: Patient is A&Ox4 Advance Care Planning: Attempt Cardiopulmonary Resuscitation - Inpatient AD in [facility], lists: Park Santamaria spouse [phone] ([phone] (M) as the primary DPOAH and Hola Santamaria @ [phone] the secondary. Current Coping/Education/Information Needs: Coping well with hospital stay and feels updated on issues and plan. Current Functional Ability: Ambulatory w/standby assist. Functional Status Prior to Admission: Fully functional w/ADL's; was driving Home Environment: 4 DOREEN w/railings, but they are far apart Can sleep in lazy boy downstairs, but bathroom is upstairs, full FOS w/o railing Physical Address: [address] [place] [address] Mailing Address [address] 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 She is anxious to work w/VNA to understand how to monitor/take care of any incision sites Extended Emergency Contact Information Primary Emergency Contact: Nika Santamaria [facility] Mobile Relation: Spouse Secondary Emergency Contact: Bri Santamaria [facility] Relation: Niece/Nephew [facility]al [facility] History: No issues identified Substance Use/Abuse: Not discussed Health/Prescription Coverage: Primary Insurance: [facility] Secondary Insurance: N/A Prescription Coverage: Preferred Pharmacy: [facility] [address] [place], [place] - [address] [facility] [address] [facility] [address] [facility] - [place], [place] - [address] AT Portal to Registered [facility] Sites [address] [facility] [address] Other: none Primary Care Provider: Tara Joya MD [phone] Patient/Caregiver Goals of Treatment: return to previous [...] w/his who is very supportive. 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 Luh Cedillo RN Case Manager Pager [phone] Extension 2 [phone] Op Note - Osman Barnett MD - 02/20/2020 7:47 PM EST Preop [...] The neck was closed over a 15 Tamazight Edgard drain. The chest incisions were then closed after again significant undermining and adjacent tissue transfer of the 9 x 9 cm defect using 3-0 and 2-0 Vicryl suture for the deep layers and brandt for the skin. 219 Tamazight Edgard drains were placed in the chest. [...] Gilman MD - 02/20/2020 1:39 PM EST [facility] Operative Note Patient Name: Ward Santamaria : [id number] MR#: [id number] Case Date: 02/20/2020 Surgeon: Surgeon(s) and Role: Panel 1: * Osman Barnett MD - Primary * Urbano Beck PA - Physician Orchid [facility] * Manuel Ruggiero MD - Resident * [...] the left orbicularis oculi and left orbicularis mairn muscles. Ground and stimulating electrodes were then [...] [facility] ONCOLOGY DEPT. [place], [place] [address] (Jin carson) 11/09/2021 Infusion Hematology and Oncology 12/10/2021 Office Visit Dermatology Silas Walters MD [address] [facility] DERMATOLOGY [place], [place] [address] (Jin rk) 09/19/2039 Hospital Encounter Surgery Osman Barnett MD [facility] OTOLARYNGOLOGY D EPT. [place], [place] [address] (Jin carson) Scheduled Procedures Name [...] PM EST disease involving procedure are in benton heart, the results angina presence section. unspecified, [...] (ABNORMAL) Differential, Automated (02/23/2020 4:29 AM EST) [facility] Method Time Signature Neutrophils % 68.4 % [facility] Neutr Abs (ANC) 7.00 (H) 1.70 - [facility] 6.10 [facility] x10(3)/[facility] LABORATORY Lymphocytes % 13.4 % [facility] Lymphocytes Abs 1.4 0.9 - 3.2 [facility] x10(3)/[facility] LABORATORY Monocytes % 12.3 % [facility] Monocyte Abs 1.3 (H) 0.3 - 0.9 [facility] x10(3)/[facility] LABORATORY Eosinophils % 3.8 % [facility] Eosinophils Abs 0.4 0.0 - 0.4 [facility] x10(3)/[facility] LABORATORY Basophils % 0.6 % [facility] Basophils Abs 0.1 0.0 - 0.1 [facility] x10(3)/[facility] LABORATORY Immature Gran % 1.50 % [facility] [...] Gran Abs 0.15 (H) 0.00 - 0.04 x10(3)/[facility] LABORATORY Specimen Anatomical Collection Method Collection Time Receive d Time (Source) Location / / Volume Laterality Blood specimen 02/23/2020 4:29 AM 020 4:42 (specimen) EST AM EST Resulting Agency Comment Spec In Lab Enma Ragland MD HEMATOLOGY ORDERABLES Performing Organization Address City/State/ZIP Code Phon e Number [address] (ABNORMAL) Hemogram (02/23/2020 4:29 AM EST) Analysis Performed At Patho logist Time Signature WBC 10.2 (H) 4.0 - 9.5 [facility] LABORATORY RBC 3.63 (L) 4.58 - [place] 5.54 [facility] x10(6)/[facility] LABORATORY Hemoglobin 11.0 (L) 13.7 - [place] 16.5 gm/dL [facility] LABOR[facility]ORY Hematocrit 32.5 (L) 40.5 - [facility] 48.5 % [facility] MCV 89.5 82.9 - [facility] 93.1 [facility] LABORATORY MCH 30.3 27.5 - [place] 32.1 pg [facility]OR[facility] MCHC 33.8 32.0 - [place] 35.7 gm/dL [facility] Platelets 181 145 - 357 [facility] x10(3)/[facility] LABORATORY RDWSD 41.1 36.0 - [facility] [place] 45.0 [facility] LABORATORY RDWCV 12.4 11.4 - [facility] [place]ARLE[place] 13.8 % [facility] MPV 8.9 7.6 - 12.9 [facility] LABORATORY nRBC % Auto 0.0 % [facility] nRBC Abs Auto 0.000 0.000 - [place] 0.000 [facility] x10(3)/[facility] LABORATORY Specimen Anatomical Collection Method Collection Time Receive d Time (Source) Location / / Volume Laterality Blood specimen 02/23/2020 4:29 AM 4:42 (specimen) EST AM EST Resulting Agency Comment Spec In Lab Enma Ragland MD HEMATOLOGY ORDERABLES Performing Organization Address City/State/[place] [address] Magnesium (02/23/2020 4:29 AM EST) athologist Signature Magnesium 0.82 0.69 - 1.07 [facility] mmol/L [facility] LAB[facility] Specimen Anatomical Collection Method Collection Time Receive d Time (Source) Location / / Volume Laterality Blood specimen 02/23/2020 4:29 AM 020 4:42 (specimen) EST AM EST Resulting Agency Comment Spec In Lab Osman Barnett MD CHEMISTRY ORDERABLES Performing Organization Address City/[facility]/ZIP Code Phon e Number [address] (ABNORMAL) Phosphorus (02/23/2020 4:29 AM EST) athologist Signature Phosphorus 2.2 (L) 2.5 - 4.5 [facility] mg/dL [facility] Specimen Anatomical Collection Method Collection Time Receive d Time (Source) Location / / Volume Laterality Blood specimen 02/23/2020 4:29 AM 4:42 (specimen) EST AM EST Resulting Agency Comment Spec In Lab Osman Barnett MD CHEMISTRY ORDERABLES Performing Organization Address City/[facility] [place] [address] (ABNORMAL) Basic Metabolic Panel (non-fasting) (02/23/2020 4:29 AM EST) athologist Signature Glucose Lvl 122 65 - 199 [facility] mg/dL [facility] Comment: Diabetes: >=200 mg/dL plus symp toms BUN 15 10 - 20 mg/dL [facility] Creatinine 0.65 (L) 0.80 - 1.50 mg/dL [facility] Sodium 135 135 - 145 mmol/L [facility] Potassium 3.8 3.5 - 5.0 mmol/L [facility] [...] Anion Gap 9 5 - 15 mmol/L [facility] Calcium 8.7 8.5 - 10.5 mg/dL [facility] Estimated GFR 100 >=60 mL/min/1.73 [...] Organization Address City/State/[place] [address] (ABNORMAL) BLOOD GAS 2 ARTERIAL (02/21/2020 11:55 AM EST) Analysis Performed At Patho logist Time Signature pH Art 7.44 7.35 - [facility] 7.45 [facility] pCO2 Art 40 35 - 45 [facility] mmHg [facility] pO2 Art 72 (L) 85 - 104 [facility] LABORATORY HCO3 Art 26.4 (H) 20.0 - [facility] 26.0 [facility] mmol/L [facility] BE Art 2.3 -3.0 - 3.0 [facility] mmol/L [facility] Hgb Blood Gas 11.2 (L) 13.7 - [facility] 16.5 gm/dL [facility] O2HB Art 94.3 94.0 - [facility] 97.0 % [facility] COHB Art 0.6 % [facility] Comment: Nonsmokers: 0.5-1.5% COHB Smokers: Variable, but usually less than 10% Toxic: 20-30% COHB Lethal: Greater than 60% COHB METHB Art 0.3 <=1.5 % [facility] Na Whole Blood 133 (L) 135 - 145 mmol/L [facility] K Whole Blood 3.6 3.5 - 5.0 mmol/L [facility] Comment: Please note: Patients [...] Whole Bld 176 65 - 199 mg/dL [facility] Comment: Diabetes: >=200 mg/dL plus symp toms. Lactate WB 1.9 0.5 - 2.2 mmol/L [facility] Flow Art 2.0 LPM [facility] Specimen Anatomical Collection Method Collection Time Receive d Time (Source) Location / / Volume Laterality Blood specimen 02/21/2020 11:55 0 (specimen) AM EST 11:55 AM EST Osman Barnett MD CHEMISTRY ORDERABLES Performing Organization Address City/State/[place] [address] EKG 12 Lead (02/21/2020 7:39 AM EST) Component Value Ref Range Test Analysis Performed Pathologis t Method Time At Signature Ventricular rate 73 BPM MUSE SYSTEM Atrial Rate 73 BPM MUSE SYSTEM P-R Interval 162 ms MUSE SYSTEM QRS Duration 94 ms MUSE SYSTEM Q-T Interval 366 ms MUSE SYSTEM QTC Calculated 403 ms MUSE SYSTEM (Bezet) Calculated P [place] 55 degrees MUSE SYSTEM Calculated R [place] 2 degrees MUSE SYSTEM Calculated T [place] 51 degrees MUSE SYSTEM INTERPRETATION Normal sinus [...] Art 29 (L) 35 - 45 mmHg [facility] Comment: Sample contains one or more air bubbles which may result in falsely elevated pO2, decreased pCO2 and increased pH. pO2 Art 106 (H) 85 - 104 mmHg [facility] Comment: Sample contains one or more air bubbles which may result in falsely elevated pO2, decreased pCO2 and increased pH. HCO3 Art 19.5 (L) 20.0 - 26.0 mmol/L [facility] BE Art -4.6 (L) -3.0 - 3.0 mmol/L [facility] Hgb Blood Gas 9.4 (L) 13.7 - 16.5 gm/dL [facility] O2HB Art 97.0 94.0 - 97.0 % [facility] COHB Art 0.4 % [facility] Comment: Nonsmokers: ??0.5-1.5% COHB Smokers: ??Variable, but usually less th an 10% Toxic: 20 - 30% COHB Lethal: ??Greater than 60% COHB METHB Art 0.3 <=1.5 % [facility] Na Whole Blood 138 135 - 145 mmol/L [facility] K Whole Blood 2.8 (Critical) 3.5 - 5.0 mmol/L M [facility] Comment: Please note: ??Patients with WBC [...] Blood 113 (H) 98 - 107 mmol/L [facility] Gluc Whole Bld 128 65 - 199 mg/dL [facility] Comment: Diabetes: >=200 mg/dL plus symp toms. Lactate WB 2.2 0.5 - 2.2 mmol/L [facility] Specimen Anatomical Collection Method Collection Time Receive d Time (Source) Location / / Volume Laterality Blood specimen Arterial Draw / 02/21/2020 4:00 AM 05/2019 4:34 (specimen) Unknown EST AM EST Catalina Barrientos MD CHEMISTRY ORDERABLES Performing Organization Address City/State/[place] [address] Scan, Peripheral Blood (02/21/2020 4:00 AM EST) [facility] gist Method Time Signature Plat Estimate Normal [facility] RBC Morphology Abnormal [facility] Stippled RBCs Present >1/HPF [facility] Giant Less than 1 /HPF [facility] LABORATORY Specimen Anatomical Collection Method Collection Time Receive d Time (Source) Location / / Volume Laterality Blood specimen 02/21/2020 4:00 AM 020 4:33 (specimen) EST AM EST Resulting Agency Comment Spec In Lab Manuel Ruggiero MD HEMATOLOGY ORDERABLES Performing Organization Address City/State/ZIP Code Phon e Number [place] [id number]ORY Drive (ABNORMAL) Differential, Automated (02/21/2020 4:00 AM EST) [facility] Method Time Signature Neutrophils % 76.9 % [facility] Neutr Abs (ANC) 11.00 (H) 1.70 - [facility] 6.10 [facility] x10(3)/[facility] LABORATORY Lymphocytes % 8.8 % [facility] Lymphocytes Abs 1.3 0.9 - 3.2 [facility] x10(3)/[facility] LABORATORY Monocytes % 13.4 % [facility] Monocyte Abs 1.9 (H) 0.3 - 0.9 [facility] x10(3)/[facility] LABORATORY Eosinophils % 0.0 % [facility] Eosinophils Abs 0.0 0.0 - 0.4 [facility] x10(3)/[facility] LABORATORY Basophils % 0.2 % [facility] Basophils Abs 0.0 0.0 - 0.1 [facility] x10(3)/[facility] LABORATORY Immature Gran % 0.70 % [facility] [...] Gran Abs 0.10 (H) 0.00 - 0.04 x10(3)/[facility] LABORATORY Specimen Anatomical Collection Method Collection Time Receive d Time (Source) Location / / Volume Laterality Blood specimen 02/21/2020 4:00 AM 020 4:33 (specimen) EST AM EST Resulting Agency Comment Spec In Lab Manuel Ruggiero MD HEMATOLOGY ORDERABLES Performing Organization Address City/[facility]/[place] [address] (ABNORMAL) Hemogram (02/21/2020 4:00 AM EST) Analysis Performed At Patho logist Time Signature WBC 14.3 (H) 4.0 - 9.5 [facility] x10(3)/[facility] LABORATORY RBC 3.33 (L) 4.58 - LISHA CORTESDARLEEN 5.54 [facility] x10(6)/[facility] LABORATORY Hemoglobin 10.3 (L) 13.7 - [facility] 16.5 gm/dL [facility] Hematocrit 29.2 (L) 40.5 - [facility] 48.5 % [facility] MCV 87.7 82.9 - [facility] 93.1 [facility] LABORATORY MCH 30.9 27.5 - LISHA DARLEEN 32.1 pg [facility] MCHC 35.3 32.0 - [facility] 35.7 gm/dL [facility] Platelets 184 145 - 357 [facility] x10(3)/[facility] LABORATORY RDWSD 39.4 36.0 - [facility] DARLEEN 45.0 [facility] LABORATORY RDWCV 12.2 11.4 - LISHA DARLEEN 13.8 % [facility] MPV 8.9 7.6 - 12.9 [facility] LABORATORY nRBC % Auto 0.0 % [facility] nRBC Abs Auto 0.000 0.000 - LISHA DARLEEN 0.000 [facility] x10(3)/[facility] LABORATORY Specimen Anatomical Collection Method Collection Time Receive d Time (Source) Location / / Volume Laterality Blood specimen 02/21/2020 4:00 AM 020 4:33 (specimen) EST AM EST Resulting Agency Comment Spec In Lab Manuel Ruggiero MD HEMATOLOGY ORDERABLES Performing Organization Address City/State/ZIP Code Phon e Number [address] Magnesium (02/21/2020 4:00 AM EST) P athologist Signature Magnesium 0.70 0.69 - 1.07 [facility] mmol/L [facility] Specimen Anatomical Collection Method Collection Time Receive d Time (Source) Location / / Volume Laterality Blood specimen 02/21/2020 4:00 AM 020 4:33 (specimen) EST AM EST Resulting Agency Comment Spec In Lab Osman Barnett MD CHEMISTRY ORDERABLES Performing Organization Address City/[facility]/ZIP Code Phon e Number [address] Phosphorus (02/21/2020 4:00 AM EST) athologist Signature Phosphorus 2.6 2.5 - 4.5 [facility] mg/dL [facility] Specimen Anatomical Collection Method Collection Time Receive d Time (Source) Location / / Volume Laterality Blood specimen 02/21/2020 4:00 AM 020 4:33 (specimen) EST AM EST Resulting Agency Comment Spec In Lab Osman Barnett MD CHEMISTRY ORDERABLES Performing Organization Address City/[facility] [place] [address] (ABNORMAL) Basic Metabolic Panel (non-fasting) (02/21/2020 4:00 AM EST) athologist Signature Glucose Lvl 161 65 - 199 [facility] mg/dL [facility] Comment: Diabetes: >=200 mg/dL plus symp toms BUN 13 10 - 20 mg/dL [facility] Creatinine 0.76 (L) 0.80 - 1.50 mg/dL [facility] Sodium 139 135 - 145 mmol/L [facility] Potassium 3.9 3.5 - 5.0 mmol/L [facility] [...] Anion Gap 10 5 - 15 mmol/L [facility] Calcium 8.5 8.5 - 10.5 mg/dL [facility] Estimated GFR 94 >=60 mL/min/1.73 [...] Organization Address City/State/[place] [address] POCT Glucose (02/21/2020 1:21 AM EST) P athologist Signature POC Glucose 175 65 - 199 [facility] mg/dL [facility] Comment: Supplemental ranges: <140 mg/dL before meals <180 mg/dL all other times of the day Specimen Anatomical Collection Method Collection Time Receive d Time (Source) Location / / Volume Laterality Blood specimen 02/21/2020 1:21 AM 020 1:21 (specimen) EST AM EST Osman Barnett MD POINT OF CARE TEST ORDERABLE S Performing Organization Address City/[facility]/[place] [address] (ABNORMAL) BLOOD GAS 2 ARTERIAL (02/20/2020 11:48 PM EST) Analysis Performed At Patho logist Time Signature pH Art 7.43 7.35 - [facility] 7.45 [facility] pCO2 Art 34 (L) 35 - 45 [facility] LABORATORY pO2 Art 76 (L) 85 - 104 [facility] LABORATORY HCO3 Art 21.6 20.0 - [facility] 26.0 [facility] mmol/[facility] BE Art -2.8 -3.0 - 3.0 [facility] mmol/L [facility] Hgb Blood Gas 11.7 (L) 13.7 - [facility] 16.5 gm/dL [facility] O2HB Art 94.1 94.0 - [facility] 97.0 % [facility] COHB Art 1.1 % [facility] Comment: Nonsmokers: 0.5-1.5% COHB Smokers: Variable, but usually less than 10% Toxic: 20-30% COHB Lethal: Greater than 60% COHB METHB Art 0.3 <=1.5 % [facility] Na Whole Blood 137 135 - [...] Whole Bld 190 65 - 199 mg/dL [facility] Comment: Diabetes: >=200 mg/dL plus symp toms. Lactate WB 2.6 (H) 0.5 - 2.2 mmol/L [facility] Specimen Anatomical Collection Method Collection Time Receive d Time (Source) Location / / Volume Laterality Blood specimen 02/20/2020 11:48 0 (specimen) PM EST 11:48 PM EST Osman Barnett MD CHEMISTRY ORDERABLES Performing Organization Address City/State/[place] [address] Blood culture (02/20/2020 10:45 PM EST) [facility] [employer] Method Time Signature Blood Culture No growth LISHA MOREJON at 5 days. [facility] Specimen Anatomical Collection Method Collection Time Receive d Time (Source) Location / / Volume Laterality Blood specimen 02/20/2020 10:45 0 (specimen) PM EST 11:13 PM EST Comment: L FA Resulting Agency Comment Spec In Lab Osman Barnett MD MICROBIOLOGY - BLOOD ORDERAB LES Performing Organization Address City/[facility]/[place] [address] Blood culture (02/20/2020 10:40 PM EST) [facility] Method Time Signature Blood Culture No growth LISHA MOREJON at 5 days. [facility] Specimen Anatomical Collection Method Collection Time Receive d Time (Source) Location / / Volume Laterality Blood specimen STRUCTURE OF LEFT 02/20/2020 10:40 120 04/2019 (specimen) [facility] / PM EST 11:10 PM EST Unknown Resulting Agency Comment Spec In Lab Osman Barnett MD MICROBIOLOGY - BLOOD ORDERAB LES Performing Organization Address City/[facility]/[place] [address] (ABNORMAL) BLOOD GAS 2 ARTERIAL (02/20/2020 9:36 PM EST) Analysis Performed At Patho logist Time Signature pH Art 7.35 7.35 - [facility] 7.45 [facility] pCO2 Art 35 35 - 45 [facility] mmHg [facility] pO2 Art 69 (L) 85 - 104 [facility] mmHg [facility] HCO3 Art 18.9 (L) 20.0 - [facility] 26.0 [facility] mmol/L HOSPITAL LABORATORY BE Art -6.8 (L) -3.0 - 3.0 [facility] mmol/L [facility] Hgb Blood Gas 10.5 (L) 13.7 - [facility] 16.5 gm/dL [facility] O2HB Art 92.4 (L) 94.0 - [facility] 97.0 % [facility] COHB Art 0.4 % [facility] Comment: Nonsmokers: 0.5-1.5% COHB Smokers: Variable, but usually less than 10% Toxic: 20-30% COHB Lethal: Greater than 60% COHB METHB Art 0.3 <=1.5 % [facility] Na Whole Blood 140 135 - [...] Blood 112 (H) 98 - 107 mmol/L [facility] Gluc Whole Bld 135 65 - 199 mg/dL [facility] Comment: Diabetes: >=200 mg/dL plus symp toms. Lactate WB 3.1 (H) 0.5 - 2.2 mmol/L [facility] Flow Art 6.0 LPM [facility] Specimen Anatomical Collection Method Collection Time Receive d Time (Source) Location / / Volume Laterality Blood specimen 02/20/2020 9:36 PM 020 9:36 (specimen) EST PM EST Osman Barnett MD CHEMISTRY ORDERABLES Performing Organization Address City/State/[place] [address] (ABNORMAL) Urinalysis Microscopic Exam (02/20/2020 9:26 PM EST) P athologist Signature RBC UA 8 (H) 0 [...] Organization Address City/State/[place] [address] (ABNORMAL) Urinalysis with reflex Culture (02/20/2020 9:26 PM EST) Patholo gist Method Time Signature Glucose UA 250 (A) Negative [facility] mg/dL [facility] Protein UA Negative Negative [facility] mg/dL [facility] Bilirubin UA Negative Negative [facility] mg/dL [facility] Comment: Clinical correlation required for positi ve Urine Bilirubin results as false positive may occur with some drugs and d rug related products. If a false positive is suspected a serum total bili holden should be considered if clinically indicated. Urobilinogen UA Normal Normal mg/dL [facility] pH UA 7.5 5.0 - 8.0 [facility] Blood UA Small (A) Negative mg/dL [facility] Ketones UA Negative Negative mg/dL [facility] Nitrite UA Negative Negative [facility] Leukocytes UA Negative Negative [facility] LABORATORY Appearance UA Clear Clear [facility] Spec [place] UA 1.012 1.006 - 1.030 [facility] Color UA Yellow Yellow [facility] Culture Reflexed No [facility] Specimen (Source) Anatomical Collection Method Collection Time Re ceived Time Location / / Volume Laterality Urine specimen 02/20/2020 9:26 02/20/2020 9:34 obtained by clean PM EST PM EST catch procedure (specimen) Resulting Agency Comment Spec In Lab Osman Barnett MD URINE ORDERABLES Performing Organization Address City/State/[place] [address] (ABNORMAL) Hemogram (02/20/2020 9:26 PM EST) Analysis Performed At [facility] logist Time Signature WBC 15.3 (H) 4.0 - 9.5 [facility] x10(3)/[facility] LABORATORY RBC 3.80 (L) 4.58 - [facility] 5.54 [facility] x10(6)/[facility] LABORATORY Hemoglobin 11.4 (L) 13.7 - [facility] 16.5 gm/dL [facility] Hematocrit 34.4 (L) 40.5 - [facility] 48.5 % [facility] MCV 90.5 82.9 - [facility] 93.1 [facility] LABORATORY MCH 30.0 27.5 - [facility] 32.1 pg [facility] MCHC 33.1 32.0 - [facility] gm/dL [facility] Platelets 209 145 - 357 [facility] x10(3)/[facility] LABORATORY RDWSD 41.1 36.0 - [facility] 45.0 [facility] LABORATORY RDWCV 12.5 11.4 - [facility] 13.8 % [facility] MPV 8.7 7.6 - 12.9 [facility] LABORATORY nRBC % Auto 0.0 % [facility]ORY nRBC Abs Auto 0.000 0.000 - [facility] 0.000 [facility] x10(3)/[facility] LABORATORY Specimen Anatomical Collection Method Collection Time Receive d Time (Source) Location / / Volume Laterality Blood specimen 02/20/2020 9:26 PM 020 9:34 (specimen) EST PM EST Resulting Agency Comment Spec In Lab Osman Barnett MD HEMATOLOGY ORDERABLES Performing Organization Address City/State/[place] [address] Comprehensive metabolic panel (non-fasting) (02/20/2020 9:26 PM EST) P athologist Signature Glucose Lvl 172 65 - 199 [facility] mg/dL [facility] Comment: Diabetes: >=200 mg/dL plus symp toms BUN 11 10 - 20 mg/dL [facility] Creatinine 0.90 0.80 - 1.50 mg/dL [facility] Sodium 143 135 - 145 mmol/L [facility] Potassium 4.9 3.5 - 5.0 mmol/L [facility] [...] Anion Gap 13 5 - 15 mmol/L [facility] Calcium 9.2 8.5 - 10.5 mg/dL [facility] Total Protein 6.1 6.1 - 8.0 gm/dL [facility] Albumin 4.2 3.2 - 5.2 gm/dL [facility] AST 17 0 - 39 unit/L [facility] ALT 12 0 - 55 unit/L [facility] Alk Phos 55 40 - 130 unit/L [facility] Total Bilirubin 0.7 0.2 - 1.3 mg/dL [facility] Estimated GFR 87 >=60 mL/min/1.73 m?? [...] Organization Address City/State/[place] [address] EKG 12 Lead (02/20/2020 8:54 PM EST) Component Value Ref Range Test Analysis Performed Pathologis t Method Time At Signature Ventricular rate 90 BPM MUSE SYSTEM Atrial Rate 90 BPM MUSE SYSTEM P-R Interval 174 ms MUSE SYSTEM QRS Duration 98 ms MUSE SYSTEM Q-T Interval 594 ms MUSE SYSTEM QTC Calculated 726 ms MUSE SYSTEM (Bezet) Calculated P [place] 56 degrees MUSE SYSTEM Calculated R [place] 14 degrees MUSE SYSTEM Calculated T [place] 59 degrees MUSE SYSTEM INTERPRETATION Normal sinus [...] Barnett MD ECG ORDERABLES Performing Organization Address City/[facility]/ZIP Code Phon e Number MUSE SYSTEM (ABNORMAL) BLOOD GAS 2 ARTERIAL (02/20/2020 7:50 PM EST) Analysis Performed At Patho logist Time Signature pH Art 7.31 (L) 7.35 - [facility] 7.45 [facility] pCO2 Art 47 (H) 35 - 45 [facility] mmHg [facility] pO2 Art 179 (H) 85 - 104 [facility] mmHg [facility] HCO3 Art 22.8 20.0 - [facility] 26.0 [facility] mmol/L [facility] LABORATORY BE Art -3.5 (L) -3.0 - 3.0 [facility] mmol/L [facility] Hgb Blood Gas 11.4 (L) 13.7 - [facility] 16.5 gm/dL [facility] O2HB Art 98.0 (H) 94.0 - [facility] 97.0 % [facility] COHB Art 0.3 % [facility] Comment: Nonsmokers: 0.5-1.5% COHB Smokers: Variable, but usually less than 10% Toxic: 20-30% COHB Lethal: Greater than 60% COHB METHB Art 0.3 <=1.5 % [facility] Na Whole Blood 136 135 - [...] Whole Bld 178 65 - 199 mg/dL [facility] Comment: Diabetes: >=200 mg/dL plus symp toms. Lactate WB 4.6 (Critical) 0.5 - 2.2 mmol/L [facility] Specimen Anatomical Collection Method Collection Time Receive d Time (Source) Location / / Volume Laterality Blood specimen 02/20/2020 7:50 PM 7:50 (specimen) EST PM EST Osman Barnett MD CHEMISTRY ORDERABLES Performing Organization Address City/[facility]/[place] [address] POCT Glucose (02/20/2020 7:06 PM EST) P athologist Signature POC Glucose 181 65 - 199 [facility] mg/dL [facility] Comment: Supplemental ranges: <140 mg/dL before meals <180 mg/dL all other times of the day Specimen Anatomical Collection Method Collection Time Receive d Time (Source) Location / / Volume Laterality Blood specimen 02/20/2020 7:06 PM 7:06 (specimen) EST PM EST Osman Barnett MD POINT OF CARE TEST ORDERABLE S Performing Organization Address City/State/[place] [address] Specimen to Pathology (02/20/2020 [...] Organization Address City/State/[place] [address] (ABNORMAL) BLOOD GAS 2 ARTERIAL (02/20/2020 6:01 PM EST) Analysis Performed At Patho logist Time Signature pH Art 7.39 7.35 - [facility] 7.45 [facility] pCO2 Art 36 35 - 45 [facility] LABORATORY pO2 Art 146 (H) 85 - 104 [facility] [facility] LABORATORY HCO3 Art 21.0 20.0 - [facility] 26.0 [facility] mmol/[facility] LABORATORY BE Art -4.0 (L) -3.0 - 3.0 [facility] mmol/L [facility] LABORATORY Hgb Blood Gas 10.7 (L) 13.7 - [facility] 16.5 gm/dL [facility] O2HB Art 97.5 (H) 94.0 - [facility] 97.0 % [facility] COHB Art 0.8 % [facility] LABORATORY Comment: Nonsmokers: 0.5-1.5% COHB Smokers: Variable, but usually less than 10% Toxic: 20-30% COHB Lethal: Greater than 60% COHB METHB Art 0.3 <=1.5 % [facility] LABORATORY Na Whole Blood 136 135 - [...] Whole Bld 167 65 - 199 mg/dL [facility] LABORATORY Comment: Diabetes: >=200 mg/dL plus symp toms. Lactate WB 5.0 (Critical) 0.5 - 2.2 mmol/L [facility] LABORATORY Specimen Anatomical Collection Method Collection Time Receive d Time (Source) Location / / Volume Laterality Blood specimen 02/20/2020 6:01 PM 020 6:01 (specimen) EST PM EST Osman Barnett MD CHEMISTRY ORDERABLES Performing Organization Address City/[facility] Phon e Number [address] Specimen to Pathology (02/20/2020 5:57 PM EST) Specimen Anatomical Collection Method Collection Time Receive d Time (Source) Location / / Volume Laterality AP Specimen 02/20/2020 5:57 PM 0 5:57 EST PM EST [facility] 5:57 PM EST Specimen requisition ordered. ??Separate Pathology report to follow Osman Barnett MD PATHOLOGY/CYTOLOGY ORDERABLE S Performing Organization Address City/[facility] [place] [address] Specimen to Pathology (02/20/2020 5:44 PM EST) Specimen Anatomical Collection Method Collection Time Receive d Time (Source) Location / / Volume Laterality AP Specimen 02/20/2020 5:44 PM 0 5:44 EST PM EST N[facility]ative [facility] 02/20/2020 5:44 PM EST Specimen requisition ordered. ??Separate Pathology report to follow Osman Barnett MD PATHOLOGY/CYTOLOGY ORDERABLE S Performing Organization Address City/[facility] [place] [address] Specimen to Pathology (02/20/2020 5:43 PM EST) Specimen Anatomical Collection Method Collection Time Receive d Time (Source) Location / / Volume Laterality AP Specimen 02/20/2020 5:43 PM 0 5:43 EST PM EST Narrative [facility] - 02/20/2020 5:43 PM EST Specimen requisition ordered. ??Separate Pathology report to follow Osman Barnett MD PATHOLOGY/CYTOLOGY ORDERABLE S Performing Organization Address [facility]/ZIP [facility] [place] [address] Specimen to Pathology (02/20/2020 5:42 PM EST) Specimen Anatomical Collection Method Collection Time Receive d Time (Source) Location / / Volume Laterality AP Specimen 02/20/2020 5:42 PM 0 5:42 EST PM EST Narrative [facility] - 02/20/2020 5:42 PM EST Specimen requisition ordered. ??Separate Pathology report to follow Osman Barnett MD PATHOLOGY/CYTOLOGY ORDERABLE S Performing Organization Address City/[facility]/[place] [address] Specimen to Pathology (02/20/2020 5:41 PM EST) Specimen Anatomical Collection Method Collection Time Receive d Time (Source) Location / / Volume Laterality AP Specimen 02/20/2020 5:41 PM 0 5:41 EST PM EST Narrative [facility] - 02/20/2020 5:41 PM EST Specimen requisition ordered. ??Separate Pathology report to follow Osman Barnett MD PATHOLOGY/CYTOLOGY ORDERABLE S Performing Organization Address City/[facility] [place] [address] ABORH Recheck Status (02/20/2020 5:35 PM EST) Patholo gist Method Time Signature ABORH Recheck Order Placed [facility] LABORATORY ABORH Type Complete [facility] LABORATORY Specimen Anatomical Collection Method Collection Time Receive d Time (Source) Location / / Volume Laterality Blood specimen 02/20/2020 5:35 PM 020 5:43 (specimen) EST PM EST Resulting Agency Comment Spec In Lab Osman Barnett MD BLOOD BANK ORDERABLES Performing Organization Address City/[facility]/[place] [address] Antibody screen (02/20/2020 5:35 PM EST) Patholo gist Method Time Signature Ab Screen Negative [facility] LABORATORY Expires at 02/23/2020 LISHA CORTESDARLEEN [id number] on: [facility] LABORATORY Specimen Anatomical Collection Method Collection Time Receive d Time (Source) Location / / Volume Laterality Blood specimen 02/20/2020 5:35 PM 020 5:43 (specimen) EST PM EST Resulting Agency Comment Spec In Lab Osman Barnett MD BLOOD BANK ORDERABLES Performing Organization Address City/[facility]/ZIP Code Phon e Number [address] ABO/Rh Typing (02/20/2020 5:35 PM EST) P athologist Signature ABORh Type A Pos [facility] LABORATORY Specimen Anatomical Collection Method Collection Time Receive d Time (Source) Location / / Volume Laterality Blood specimen 02/20/2020 5:35 PM 020 5:43 (specimen) EST PM EST Resulting Agency Comment Spec In Lab Osman Barnett MD BLOOD BANK ORDERABLES Performing Organization Address City/[facility]/[place] [address] Prepare RBC (02/20/2020 5:30 PM EST) P athologist Signature Dispensed? Yes [facility] LABORATORY Specimen Anatomical Collection Method Collection Time Receive d Time (Source) Location / / Volume Laterality Blood specimen 02/20/2020 5:30 PM 020 5:26 (specimen) EST PM EST Osman Barnett MD BLOOD BANK ORDERABLES Performing Organization Address City/[facility]/[place] [address] (ABNORMAL) BLOOD GAS 2 ARTERIAL (02/20/2020 4:58 PM EST) Analysis Performed At Patho logist Time Signature pH Art 7.40 7.35 - [facility] 7.45 [facility] LABORATORY pCO2 Art 34 (L) 35 - 45 [facility] LABORATORY pO2 Art 170 (H) 85 - 104 [facility] LABORATORY HCO3 Art 20.8 20.0 - [facility] 26.0 [facility] mmol/L [facility] LABORATORY BE Art -3.9 (L) -3.0 - 3.0 [facility] mmol/L [facility] LABORATORY Hgb Blood Gas 10.8 (L) 13.7 - [facility] 16.5 gm/dL [facility] O2HB Art 98.1 (H) 94.0 - [facility] 97.0 % [facility] LABORAT[facility] COHB Art 0.3 % [facility] LABORATORY Comment: Nonsmokers: 0.5-1.5% COHB Smokers: Variable, but usually less than 10% Toxic: 20-30% COHB Lethal: Greater than 60% COHB METHB Art 0.3 <=1.5 % [facility] LABORATORY Na Whole Blood 138 135 - [...] Whole Bld 155 65 - 199 mg/dL [facility] LABORATORY Comment: Diabetes: >=200 mg/dL plus symp toms. Lactate WB 5.6 (Critical) 0.5 - 2.2 mmol/L [facility] LABORATORY Specimen Anatomical Collection Method Collection Time Receive d Time (Source) Location / / Volume Laterality Blood specimen Arterial Draw / 02/20/2020 4:58 PM 1204/2019 4:58 (specimen) Unknown EST PM EST Resulting Agency Comment Spec In Lab Helio Cristobal MD CHEMISTRY ORDERABLES Performing Organization Address City/State/[place] [address] Surgical Pathology Report (02/20/2020 4:05 PM EST) Component Value Ref Test Analysis Performed At [facility] gist Range Method Time Signature Surgical [id number] ? Location: 5WST; 0504; A [facility] Pathology [place] Report The signing pathologist has (i) examined [...] out of four parotid/ ?periparotid lymph nodes. (1/4) ?- Extensive venous invasion present. ?? - [...] Brad Bocanegra Verified: ??03/11/2020 ?Pathologist Performed at: ??-[facility] Dept. of Pathology, [place], [place] SYNOPTIC SQUAMOUS CELL CARCINOMA OF SKIN [...] (Part H). ADDITIONAL STUDIES Whole slide scan: leasing representative slide(s) SPECIMEN(S) SUBMITTED A - LEFT [...] length of thin walled ve ssel Sections/Processing: Performance Manager sections in 11 cassettes as follows: ?C1: [...] gland with an unremarkable cut surface Sections/Processing: Performance Manager sections in 6 cassettes as follows: ?E1: [...] Sections/Processing: Blocks submitted for decalcification: G1, G3-G4. Performance Manager sections in 23 cassettes as follows: ?G1: ??Auditory canal bone margin, en face ?G2-G3: ??Full length l ongitudinal section of auditory canal bisected centrally with ? external auditory meatus in block G2 and temporal bon e in block G3 ?G4: ??electronic data processing auditor y canal with temporal bone and portion of styloid process ?G5: ??[place] margin including postauricular skin, perpendicular section ?G6: [...] x 2.0 x 1.0 cm. Tissue Description: Nehal ed, shaggy red-brown rubbery tissue. Sectioning reveals [...] Painting DO Verified: ??02/20/2020 ?Pathologist Performed at: ??-[facility] Dept. of Pathology, [place], [place] This intraoperative consultation should be interpreted as a preliminary diagnosis pending review of the entire specimen and sp ecial studies, if any. Specimen (Source) Anatomical Collection Method Collection Time Re ceived Time Location / / Volume Laterality 02/20/2020 4:05 PM EST Osman Barnett MD PATHOLOGY/CYTOLOGY ORDERABLE S Performing Organization Address [facility]/[place] [address] Specimen to Pathology (02/20/2020 4:05 PM EST) Specimen Anatomical Collection Method Collection Time Receive d Time (Source) Location / / Volume Laterality AP Specimen 02/20/2020 4:05 PM 0 4:05 EST PM EST Narrative [facility]ORAT [place] - 02/20/2020 4:05 PM EST Specimen requisition ordered. ??Separate Pathology report to follow Osman Barnett MD PATHOLOGY/CYTOLOGY ORDERABLE S Performing Organization Address City/[facility]/[place] [address] Specimen to Pathology (02/20/2020 [...] Organization Address City/State/[place] [address] (ABNORMAL) BLOOD GAS 2 ARTERIAL (02/20/2020 3:54 PM EST) Analysis Performed At Patho logist Time Signature pH Art 7.38 7.35 - [facility] 7.45 [facility] LABORATORY pCO2 Art 32 (L) 35 - 45 [facility] LABORATORY pO2 Art 248 (H) 85 - 104 [facility] LABORATORY HCO3 Art 18.5 (L) 20.0 - [facility] 26.0 [facility] mmol/[facility] LABORATORY BE Art -6.5 (L) -3.0 - 3.0 [facility] mmol/L [facility] LABORATORY Hgb Blood Gas 11.5 (L) 13.7 - [facility] 16.5 gm/dL [facility] O2HB Art 98.6 (H) 94.0 - [facility] 97.0 % [facility] COHB Art 0.1 % [facility] LABORATORY Comment: Nonsmokers: 0.5-1.5% COHB Smokers: Variable, but usually less than 10% Toxic: 20-30% COHB Lethal: Greater than 60% COHB METHB Art 0.3 <=1.5 % [facility] LABORATORY Na Whole Blood 138 135 - [...] Blood 109 (H) 98 - 107 mmol/L [facility] LABORATORY Gluc Whole Bld 158 65 - 199 mg/dL [facility] LABORATORY Comment: Diabetes: >=200 mg/dL plus symp toms. Lactate WB 4.7 (Critical) 0.5 - 2.2 mmol/L [facility] LABORATORY Specimen Anatomical Collection Method Collection Time Receive d Time (Source) Location / / Volume Laterality Blood specimen 02/20/2020 3:54 PM 020 3:54 (specimen) EST PM EST Osman Barnett MD CHEMISTRY ORDERABLES Performing Organization Address City/[facility] Phon e Number [address] POCT Glucose (02/20/2020 3:25 PM EST) athologist Signature POC Glucose 165 65 - 199 [facility] mg/dL [facility] LABOR[facility]ORY Comment: Supplemental ranges: <140 mg/dL before meals <180 mg/dL all other times of the day Specimen Anatomical Collection Method Collection Time Receive d Time (Source) Location / / Volume Laterality Blood specimen 02/20/2020 3:25 PM 020 3:25 (specimen) EST PM EST Osman Barnett MD POINT OF CARE TEST ORDERABLE S Performing Organization Address City/[facility] [place] [address] (ABNORMAL) POCT Glucose (02/20/2020 2:16 PM EST) athologist Signature POC Glucose 201 (H) 65 - 199 [facility] Comment: Supplemental ranges: <140 mg/dL before meals <180 mg/dL all other times of the day Specimen Anatomical Collection Method Collection Time Receive d Time (Source) Location / / Volume Laterality Blood specimen 02/20/2020 2:16 PM 020 2:16 (specimen) EST PM EST Osman Barnett MD POINT OF CARE TEST ORDERABLE S Performing Organization Address City/[facility]/[place] [address] (ABNORMAL) POCT Glucose (02/20/2020 1:15 PM EST) P athologist Signature POC Glucose 227 (H) 65 - 199 [facility] mg/dL [facility] LABORATORY Comment: Supplemental ranges: <140 mg/dL before meals <180 mg/dL all other times of the day Specimen Anatomical Collection Method Collection Time Receive d Time (Source) Location / / Volume Laterality Blood specimen 02/20/2020 1:15 PM 020 1:15 (specimen) EST PM EST Osman Barnett MD POINT OF CARE TEST ORDERABLE S Performing Organization Address City/State/[place] [address] (ABNORMAL) BLOOD GAS 2 ARTERIAL (02/20/2020 12:07 PM EST) Analysis Performed At Patho logist Time Signature pH Art 7.40 7.35 - [facility] 7.45 [facility] LABORATORY pCO2 Art 36 35 - 45 [facility] LABORATORY pO2 Art 139 (H) 85 - 104 [facility] LABORATORY HCO3 Art 21.9 20.0 - [facility] 26.0 [facility] mmol/L [facility] LABORATORY BE Art -3.0 -3.0 - 3.0 [facility] mmol/L [facility] LABORATORY Hgb Blood Gas 15.2 13.7 - [facility] 16.5 gm/dL [facility] O2HB Art 97.4 (H) 94.0 - [facility] 97.0 % [facility] COHB Art 1.2 % [facility] LABORATORY Comment: Nonsmokers: 0.5-1.5% COHB Smokers: Variable, but usually less than 10% Toxic: 20-30% COHB Lethal: Greater than 60% COHB METHB Art 0.3 <=1.5 % [facility]AT[facility] Na Whole Blood 135 135 - [...] Whole Blood 103 98 - 107 mmol/L [facility] LABORATORY Gluc Whole Bld 222 (H) 65 - 199 mg/dL [facility] Comment: Diabetes: >=200 mg/dL plus symp toms. Lactate WB 2.8 (H) 0.5 - 2.2 mmol/L [facility] LABORATORY FIO2 Art 44 % [facility] Flow Art 0.5 LPM [facility] PF Ratio Art 316 [facility] Temp Art 36.4 Celsius [facility] LABOR[facility]ORY Specimen Anatomical Collection Method Collection Time Receive d Time (Source) Location / / Volume Laterality Blood specimen 02/20/2020 12:07 0 (specimen) PM EST 12:07 PM EST Osman Barnett MD CHEMISTRY ORDERABLES Performing Organization Address City/State/[place] [address] (ABNORMAL) BLOOD GAS 2 ARTERIAL (02/20/2020 8:11 AM EST) Analysis Performed At Patho logist Time Signature pH Art 7.41 7.35 - [facility] 7.45 [facility]OR[facility] pCO2 Art 37 35 - 45 [facility] mmHg [facility] pO2 Art 415 (H) 85 - 104 [facility] LABORATORY HCO3 Art 22.8 20.0 - [facility] 26.0 [facility] mmol/L [facility] LABORATORY BE Art -2.1 -3.0 - 3.0 [facility] mmol/L [facility] LABORAT[facility] Hgb Blood Gas 13.4 (L) 13.7 - [facility] 16.5 gm/dL [facility] O2HB Art 97.7 (H) 94.0 - [facility] 97.0 % [facility] COHB Art 1.5 % [facility] LABORATORY Comment: Nonsmokers: 0.5-1.5% COHB Smokers: Variable, but usually less than 10% Toxic: 20-30% COHB Lethal: Greater than 60% COHB METHB Art 0.3 <=1.5 % [facility] Na Whole Blood 132 (L) 135 - 145 mmol/L [facility]AT[facility] K Whole Blood 3.9 3.5 - 5.0 mmol/L [facility] LABORAT[facility] Comment: Please note: Patients [...] Whole Bld 147 65 - 199 mg/dL [facility] Comment: Diabetes: >=200 mg/dL plus symp toms. Lactate WB 2.6 (H) 0.5 - 2.2 mmol/L [facility] LABORAT[facility] FIO2 Art 83 % [facility] Flow Art 0.8 LPM [facility] PF Ratio Art 500 [facility] LABORATORY Specimen Anatomical Collection Method Collection Time Receive d Time (Source) Location / / Volume Laterality Blood specimen Arterial Draw / 02/20/2020 8:11 AM 1204/2019 8:11 (specimen) Unknown EST AM EST Resulting Agency Comment Spec In Lab Osman Barnett MD CHEMISTRY ORDERABLES Performing Organization Address City/State/[place] [address] SCAN DOC: LAB (02/20/2020 12:00 AM EST) Narrative 02/20/2020 12:00 AM EST This result has an attachment that is no t available. Ordered by an unspecified provider. Scanning Provider MEDIA MGR SCAN EXT ORDR/RSLT documented in this encounter Visit Diagnoses Diagnosis Mass of left ear Parotid mass Swelling, mass, or lump in head and neck Coronary artery disease involving benton heart, angina presence unspecified, unspecified vessel or lesion type Prolonged Q-T interval on ECG Nonspecific abnormal electrocardiogram ( ECG) (EKG) Squamous cell carcinoma of ear, left Mass of left ear Parotid mass Swelling, mass, or lump in head and neck documented in this encounter Admitting Diagnoses Diagnosis [...] mg carboxymethylcellulose (REFRESH PLUS) 0.5 % Given 10/2019 8:44 AM EST 2 drops ophthalmic drops 2 drop 2 drop, Both Eyes, 4 TIMES DAILY, First dose (after last modification) on 02/24/20 at 1300, Until Discontinued, Routine Given 02/25/2020 8:35 PM EST 2 drops Given 02/25/2020 6:16 PM EST 2 drops enoxaparin (Lovenox) (40 mg/0.4 mL) Given 02/25/2020 8:35 PM EST 40 mg subcutaneous injection 40 mg 40 mg, Subcutaneous, NIGHTLY, First dose on Jessica 02/21/20 at 2100, Until Discontinued, Routine Given 02/24/2020 9:28 PM EST 40 mg Given 02/23/2020 9:24 PM EST 40 mg EPINEPHrine (ADRENALIN) nasal Given 02/20/2020 9:28 AM EST 30 mL s 19- Surgical Site solution ONCE PRN, Starting on Tue02/20/20 at 0928, Until Tue02/26/20 at 1252, Intra-Operative (Intra-Procedure), Routine fenofibrate micronized (Lofibra) capsule 200 Given 10/2019 8:33 AM EST 200 mg mg 200 mg, Oral, DAILY WITH BREAKFAST, First dose on Jessica 02/21/20 at 0800, Until Discontinued Given 02/25/2020 8:39 AM EST 200 mg Given 02/24/2020 8:14 AM EST 200 mg gelatin adsorbable (GELFOAM) Given 02/20/2020 9:28 AM EST 1 each 19- Surgical Site sponge ONCE PRN, Starting on Tue02/20/20 at 0928, Until Tue02/26/20 at 1252, Intra-Operative (Intra-Procedure) gelatin adsorbable (GELFOAM) sponge Given 02/20/2020 9:29 AM EST 1 each ONCE PRN, Starting on Tue02/20/20 at 0929, Until Tue02/26/20 at 1252, Intra-Operative (Intra-Procedure) HYDROmorphone (Dilaudid) tablet 2 mg Given 02/26/2020 4:44 AM EST 2 mg 2 mg, Oral, EVERY 3 HOURS PRN, Starting on Jessica 02/21/20 at 1145, Until Tue02/26/20 at 1252, Pain, for mild pain (1-3), May give an additional 2 mg once if pain not relieved in 30-60 minutes., Routine Given 02/25/2020 10:03 AM EST 2 mg Given 02/25/2020 2:24 AM EST 2 mg HYDROmorphone (Dilaudid) tablet 4 mg Given 02/23/2020 3:37 AM EST 4 mg 4 mg, Oral, EVERY 3 HOURS PRN, Starting on Tue02/21/20 at 1145, Until Tue02/26/20 at 1252, Pain, for moderate pain (4-6), May give an additional 2 mg once if pain not relieved in 30-60 minutes., Routine HYDROmorphone (Dilaudid) tablet 6 mg 6 mg, Oral, EVERY 3 HOURS PRN, Starting on Tue02/21/20 at 1145, Until Tue02/26/20 at 1252, Pain, for severe pain (7-10), M ay give an additional 2 mg once if pain not relieved in 30-60 minutes., Routine ibuprofen (Advil;Motrin) tablet 600 mg Given 02/26/2020 8:31 AM EST 600 mg 600 mg, Oral, EVERY 6 HOURS, First dose on Tue02/21/20 at 0300, Until Discontinued, Administer orally with milk or food to minimize GI irritation. Maximum dose of 3200 mg from all sources in 24 hours, Routine Given 02/26/2020 4:00 AM EST 600 mg Given 02/25/2020 8:36 PM EST 600 mg lactobacillus with pectin capsule 1 Given 02/26/2020 8:32 AM EST 1 capsule capsule 1 capsule, Oral, DAILY, First dose on Tue02/21/20 at 1400, Until Discontinued, Routine Given 02/25/2020 8:39 AM EST 1 capsule Given 02/24/2020 8:13 AM EST 1 capsule lamoTRIgine (LaMICtal) tablet 200 mg Given 02/26/2020 8:32 AM EST 200 mg 200 mg, Oral, 2 TIMES DAILY, First dose on Tue02/21/20 at 0900, Until Discontinued, Routine Given 02/25/2020 8:35 PM EST 200 mg Given 02/25/2020 8:39 AM EST 200 mg lidocaine-EPINEPHrine (pf) (1.5% Given 02/20/2020 8:46 AM 10 mLs 19- Surgical Site - 1:200,000) injection EST ONCE PRN, Starting on Tue02/20/20 at 0846, Until Tue02/26/20 at 1252, Intra-Operative (Intra-Procedure), Routine metoprolol succinate XL (Toprol-XL) tablet 50 Given 8:32 AM EST 50 mg mg 50 mg, Oral, DAILY, First dose on Jessica 02/21/20 at 0900, Until Discontinued, DO NOT CRUSH OR OPEN, Routine Given 02/25/2020 8:39 AM EST 50 mg Given 02/24/2020 8:13 AM EST 50 mg ofloxacin (FLOXIN) 0.3 % otic Given 02/20/2020 9:29 AM 10 drops 19- Surgical Site solution EST ONCE PRN, Starting on Tue02/20/20 at 0929, Until Tue02/26/20 at 1252, Intra-Operative (Intra-Procedure), Routine polyethylene glycoL (Miralax) packet 17 g Given 02/23/2020 8:36 AM EST 17 g 17 g, Per NG tube, DAILY, First dose on Tue02/21/20 at 0900, Until Discontinued, Routine Given 02/22/2020 12:22 PM EST 17 g Given 02/21/2020 9:03 AM EST 17 g prochlorperazine (Compazine) (5 mg/mL) Given 02/24/2020 12:02 AM EST 10 mg injection 10 mg 10 mg, Intravenous, EVERY 6 HOURS PRN, Starting on Jessica 02/21/20 at 1207, Until Tue02/26/20 at 1252, Nausea, Routine Given 02/22/2020 3:32 AM EST 10 mg prochlorperazine (Compazine) tablet 10 m g 10 mg, Oral, EVERY 6 HOURS PRN, Starting on Tue02/21/20 at 1207, Until Tue02/26/20 at 1252, Nausea, Maximum dose: 50 mg / 24 hrs, Routine sodium chloride 0.9 % (flush) flush 5 mL Given 02/26/2020 8:44 AM EST 5 mLs 5 mL, Intravenous, 2 TIMES DAILY, First dose on Jessica 02/21/20 at 0900, Until Discontinued, Recovery (Recovery-Hospital Unit), Routine Given 02/25/2020 8:36 PM EST 5 mLs Given 02/25/2020 8:45 AM EST 5 mLs tamsulosin (Flomax) capsule 0.4 mg Given 02/26/2020 8:32 AM EST 0.4 mg 0.4 mg, Oral, DAILY, 7 doses, First dose on Tue02/22/20 at 0900, Last dose on Jessica 02/28/20 at 0900, DO NOT CRUSH OR OPEN, Routine Given 02/25/2020 8:39 AM EST 0.4 mg Given 02/24/2020 8:13 AM EST 0.4 mg documented in this encounter Active and Recently Administered Medications Times are shown in EST. Scheduled Medication Order 02/24/2020 02/25/2020 02/26/2020 acetaminophen (Tylenol) tablet 650 mg 0419 (Given - Pr ovider: Helio Falcon RN)0603 (Given - Provider: Helio Falcon, CONNOR)1215 (Given - Provider: Paola Garcia, CONNOR)1543 (Given - Provider: Paola Garcia RN) 0223 (Given - Provider: Helio Falcon RN)0637 (Given - Provider: Helio Falcon RN)1100 (Not Given - Provider: Paola Garcia RN - Reason: Patient/family refused)1515 (Given - Provider: Paola Garcia RN) 0400 (Given - Provider: Pita Bradley RN)0843 (Given - Provider: Sonia Rodgers RN) 650 mg, Oral, EVERY 4 HOURS, First dose on Jessica 02/21/20 at 0300, Until Discontinued, Maximum dose of acetaminophen is 4000 mg from all sources in 24 hours. When ordered for pain, acetaminophen should be 1900 (Not Given - Provider: Danika Tolbert RN - Reason: See comment - Comment: given early)2126 (Given - Provider: Helio Falcon RN)230 (Not Given - Provider: Helio Falcon RN - Reason: Patient not available) 181 (Given - Provider: Paola Garcia RN)2359 (Given - Provider: Pita Bradley RN) given even when other ordered pain medications are indicated. , Routine amitriptyline (Elavil) tablet 100 mg 2126 (Given - Pro vider: Helio Falcon RN) 2034 (Given - Provider: Pita Bradley RN) 100 mg, Oral, NIGHTLY, First dose on Jessica 02/21/20 at 2100, Until Discontinued, Routine ARIPiprazole (Abilify) tablet 15 mg 0814 (Given - Prov ider: Paola Garcia, RN) 0839 (Given - Provider: Paola Garcia, CONNOR) 0833 (Giv en - Provider: Sonia Rodgers, RN) 15 mg, Oral, DAILY, First dose on Jessica at 0900, Until Discontinued, Routine atorvastatin (Lipitor) tablet 20 mg 0813 (Given - Prov ider: Paola Garcia, CONNOR) 0838 (Given - Provider: Paola Garcia, CONNOR) 0833 (Giv en - Provider: Sonia Rodgers, RN) 20 mg, Oral, DAILY, First dose on Jessica at 0900, Until Discontinued, Routine carboxymethylcellulose (REFRESH PLUS) 0.5 % ophthalmic drops 2 drop 1355 (Given - Provider: Paola Garcia RN)1834 (Given - Provider: Danika Tolbert RN)2125 (Given - Provider: Helio Falcon, CONNOR) 0839 (Given - Provider: Paola Garcia, CONNOR)1337 (Given - Provider: Paola Garcia, CONNOR)1816 (Given - Provider: Paola Garcia, CONNOR)203 (Given - Provider: Pita Bradley RN) 0844 (Given - Provider: Sonia Rodgers, CONNOR) 2 drop, Both Eyes, 4 TIMES DAILY, First dose (after last modification) on Joiner 02/24/20 at 1300, Until Discontinued, Routine clindamycin (Cleocin) 600 mg in dextrose 5% 50 mL infu griselda (COMPLETED) 0604 (New Bag - Provider: Helio Falcon, CONNOR)0624 (Stopped - Provider: Helio Falcon, CONNOR)1355 (New Bag - Provider: Paola Garcia, CONNOR)1415 (Stopped - Provider: Paola Garcia RN)2128 (New Bag - Provider: Helio Falcon, CONNOR) 0639 (New Bag - Provider: Helio Falcon, CONNOR)0659 (Stopped - Provider: Helio Falcon, CONNOR)1337 (New Bag - Provider: Paola Garcia RN)1357 (Stopped - Provider: Paola Garcia RN) 600 mg, Intravenous, EVERY 8 HOURS, 15 d oses, First dose on Tue02/20/20 at 2200, Last dose on Tue02/25/20 at 1400, Administer over 20 Minutes, Indication for (Active or Suspected): Prophylaxis 2147 (Stopped - Provider: Helio Falcon RN) enoxaparin (Lovenox) (40 mg/0.4 mL) subcutaneous injec tion 40 mg 2127 (Given - Provider: Helio Falcon RN) 2034 (Given - Provider: Pita dozier RN) 40 mg, Subcutaneous, NIGHTLY, First dose on Tue02/21/20 at 2100, Until Discontinued, Routine fenofibrate micronized (Lofibra) capsule 200 mg 0814 ( Given - Provider: Paola Garcia RN) 0839 (Given - Provider: Paola Garcia RN) 0833 (Giv en - Provider: Sonia Rodgers RN) 200 mg, Oral, DAILY WITH BREAKFAST, Firs t dose on Tue02/21/20 at 0800, Until Discontinued ibuprofen (Advil;Motrin) tablet 600 mg 0420 (Given - P rovider: Helio Falcon RN)0813 (Given - Provider: Paola Garcia RN)1543 (Given - Provider: Paola Garcia RN)212 (Given - Provider: Helio Falcon, CONNOR) 0224 (Given - Provider: Helio Falcon RN)0838 (Given - Provider: Paola Garcia RN)1515 (Given - Provider: Paola Garcia, CONNOR)203 (Given - Provider: Pita Bradley RN) 0400 (Given - Provider: Pita dozier RN)0831 (Given - Provider: Sonia Rodgers RN) 600 mg, Oral, EVERY 6 HOURS, First dose on Tue02/21/20 at 0300, Until Discontinued, Administer orally with milk or food to minimize GI irritation. Maximum dose of 3200 mg from all sources in 24 hours, Routine lactobacillus with pectin capsule 1 capsule 0813 (Give n - Provider: Paola Garcia RN) 0839 (Given - Provider: Paola Garcia RN) 0832 (Giv en - Provider: Sonia Rodgers, CONNOR) 1 capsule, Oral, DAILY, First dose on 02/21/20 at 1400, Until Discontinued, Routine lamoTRIgine (LaMICtal) tablet 200 mg 811 (Given - Pro vider: Paola Garcia RN)2125 (Given - Provider: Helio Falcon RN) 0839 (Given - Provider: Paola Garcia RN)2034 (Given - Provider: Pita Bradley, RN) 0832 (Given - Provider: Sonia Rodgers RN) 200 mg, Oral, 2 TIMES DAILY, First dose on Tue02/21/20 at 0900, Until Discontinued, Routine metoprolol succinate XL (Toprol-XL) tablet 50 mg 08 (Given - Provider: Paola Garcia RN) 0839 (Given - Provider: Paola Garcia RN) 0832 (Giv en - Provider: Sonia Rodgers RN) 50 mg, Oral, DAILY, First dose on Tue at 0900, Until Discontinued, DO NOT CRUSH OR OPEN, Routine polyethylene glycoL (Miralax) packet 17 g 0900 (Not Gi santiago - Provider: Paola Garcia RN - Reason: Patient/family refused) 0900 (Not Given - Provider: Paola Garcia RN - Reason: Patient/family refused) 0900 (Not Given - Provider: Sonia Rodgers RN - Reason: Patient/family refused) 17 g, Per NG tube, DAILY, First dose on Tue02/21/20 at 0900, Until Discontinued, Routine sodium chloride 0.9 % (flush) flush 5 mL 814 (Given - Provider: Paola Garcia RN)2128 (Given - Provider: Helio Falcon, CONNOR) 0845 (Given - Provider: Paola Garcia RN)2035 (Given - Provider: Pita Bradley, CONNOR) 0844 (Given - Provider: Sonia Rodgers RN) 5 mL, Intravenous, 2 TIMES DAILY, First dose on Tue02/21/20 at 0900, Until Discontinued, Recovery (Recovery-Hospital Unit), Routine tamsulosin (Flomax) capsule 0.4 mg 0813 (Given - Provider: Tio Garcia, CONNOR) 0839 (Given - Provider: Paola Garcia RN) 0832 (Given - Provider: Sonia Rodgers RN) 0.4 mg, Oral, DAILY, 7 doses, First dose on Tue02/22/20 at 0900, Last dose on Tue02/28/20 at 0900, DO NOT CRUSH OR OPEN, Routine PRN Medication Order 02/24/2020 02/25/2020 02/26/2020 bisacodyL (Dulcolax) suppository 10 mg 10 mg, Rectal, DAILY PRN, Starting Jessica 04/23/19 at 0202, Until Tue02/26/20 at 1252, Constipation, [...] Eyes, 3 TIMES DAILY PRN, St arting Tue02/22/20 at 1743, Until 02/24/20 at 0913, Dry Eyes, Routine HYDROmorphone (Dilaudid) tablet 2 mg(Linked Group 1) 0 604 (Given - Provider: Helio Falcon, CONNOR)1543 (Given - Provider: Paola Garcia, CONNOR) 0224 (Given - Provider: Helio Falcon, CONNOR)1003 (Given - Provider: Darryl Muller RN) 0444 (Given - Provider: Pita dozier RN) 2 mg, Oral, EVERY 3 HOURS PRN, Starting Jessica 02/21/20 at 1145, Until Tue02/26/20 at 1252, Pain, for mild pain (1-3), May give an additional 2 mg once if pain not relieved in 30-60 minutes., Routine HYDROmorphone (Dilaudid) tablet 4 mg(Linked Group 1) 0 604 (See Alternative - Provider: Helio Falcon RN)1543 (See Alternative - Provider: Paola Garcia, CONNOR) 0224 (See Alternative - Provider: Stepan Falcon, CONNOR)1003 (See Alternative - Provider: Darryl Muller, CONNOR) 0444 (See Alternative - Provider: Pita Bradley, CONNOR) 4 mg, Oral, EVERY 3 HOURS PRN, Starting Jessica 1220 at 1145, Until Tue 12 at 1252, Pain, for moderate pain (4-6), May give an additional 2 mg once if pain not relieved in 30-60 minutes., Routine HYDROmorphone (Dilaudid) tablet 6 mg(Linked Group 1) 0 604 (See Alternative - Provider: Helio Falcon RN)1543 (See Alternative - Provider: Paola Garcia RN) 0224 (See Alternative - Provider: Stepan Falcon, CONNOR)1003 (See Alternative - Provider: Darryl Muller, CONNOR) 0444 (See Alternative - Provider: Pita Bradley, CONNOR) 6 mg, Oral, EVERY 3 HOURS PRN, Starting Jessica 12//20 at 1145, Until Tue 12 at 1252, Pain, for severe pain (7-10), May give an additional 2 mg once if pain not relieved in 30-60 minutes., Routine lidocaine (XYLOCAINE) 10 mg/mL (1 %) injection 3 mg 3 mg (0.3 mL), Subcutaneous, ONCE PRN, 1 dose, Starting Jessica 12/20 at 0202, Until Tue 1220 at 1252, for discomfort with PIV insertion, Recovery (Recovery-Hospital Unit), Routine nitroGLYcerin (Nitrostat) disintegrating tablet 0.4 mg 0.4 mg, Sublingual, EVERY 5 MIN PRN, Sta rting Jessica 12/3/20 at 0202, Until Tue 1220 at 1252, Chest pain, SL nitroglycerin may [...] 2 TIMES DAILY PRN, Startin g Jessica 12/06/07 at 0202, Until Tue 12 at 1252, [...] EVERY 1 MIN PRN, S tarting Jessica 12/20 at 0202, Until Tue 12 at 1252, flush, Flush pertains to all indwelling lines. Flush per protocol found in the job aid using the link prov ided on this medication record., Recovery (Recovery-Hospital Uni t), Routine Linked Groups Order Group 1: HYDROmorphone (Dilaudid) tablet 2 mgJump to med 2 mg, Oral, EVERY 3 HOURS PRN, Starting Jessica 12//20 at 1145, Until Tue 1220 at 1252, Pain, for mild pain (1-3)
May give an additional 2 mg once if pain not relieved in 30-60 minutes.
Routine Or HYDROmorphone (Dilaudid) tablet 4 mgJump to med 4 mg, Oral, EVERY 3 HOURS PRN, Starting Jessica 1220 at 1145, Until 02/26/20 at 1252, Pain, for moderate pain (4-6)
May give an additional 2 mg once if pain not relieved in 30-60 minutes.
Routine Or HYDROmorphone (Dilaudid) tablet 6 mgJump to med 6 mg, Oral, EVERY 3 HOURS PRN, Starting Jessica 12//20 at 1145, Until Tue 12 at 1252, Pain, for severe pain (7-10)
May give an additional 2 mg once if pain not relieved in 30-60 minutes.
Routine Group 2: prochlorperazine (Compazine) (5 mg/mL) injection 10 mgJump to med 10 mg, Intravenous, EVERY 6 HOURS PRN, S tarting Jessica 12 at 1207, Until 02/26/20 at 1252, Nausea, Routine Or prochlorperazine (Compazine) tablet 10 mgJump to med 10 mg, Oral, EVERY 6 HOURS PRN, Starting Jessica 12 at 1207, Until Tue 12 at 1252, Nausea
Maximum dose: 50 mg / 24 hrs
Routine documented in this encounter Care Teams Mail Weigher Relationship Specialty Start Date End Date Tara Joya MD PCP - General Family Medicine 05/16/[address] [place] [address] documented as of this encounter
--- OUTSIDE RECORDS SUMMARY | 2021-10-21 08:02 | XMS_ITS | Encounter Summary ---
:1950 Author Organization [facility] [place] [address] Care Team Providers Name Role Phone Tara Joya MD Primary Care Provider [phone] Encounter Details Date Type Department Care Team Description 02/07/2020 Telephone Otolaryngology at [facility] Lisa Razo, [place] [address] Social History Tobacco Use Types Packs/Day Years Used Date Former Smoker Cigarettes 1 40 Quit: 01/09/20 03 Smokeless Tobacco: Never Used Alcohol Use Standard Drinks/Week Comments No 0 (1 standard drink = 0.6 oz pure alcoho l) Sex Assigned at Date Recorded Not on file documented as of this encounter Miscellaneous Notes Telephone Encounter - Lisa Razo RN - 02/07/2020 1:24 PM EST Placed a call to Nika after being alerted by Wendy Beavers RN, who had recently spoken to Nika that Ward was having an increase in symptoms related to the 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 When speaking with Nika she stated currently she was driving on her way to get Ward at home and bring him to the ED here at [facility]. She describes the current symptoms as follows: For the past two days off and on the patient has been experiencing bleeding that is not quarts butis coming from the back of his ear as well as now the INSIDE of his ear. She states often times the bleeding is down the side of his face, down his neck and has often matted the hair of his estes. A biopsy of the tumor was taken in the office on 01/31/20. Closured with 5 chromic sutures but Nika states that she feels she sees a different open area. Blood is on the patients pillow each morning upon awakening. Patient having increased pain in area as well. 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 The patient at baselinehas bilateral hearing loss. Patient and will be en route to the ED here at [facility] for evaluation of increase in tumor size, pain and now bleeding. 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 documented in this encounter Plan of Treatment Upcoming Encounters Date Type Specialty Care Team Description 10/21/2021 Infusion Hematology and Oncology 11/09/2021 Office Visit Hematology and Oncology Alhaji Ritchie MD [facility] DR ONCOLOGY DEPT. [place], [place] [address] (Wo rk) 11/09/2021 Infusion Hematology and Oncology 12/10/2021 Office Visit Dermatology Silas Walters MD [address] [place] [address] DERMATOLOGY [place], [place] [address] (Wo rk) 09/19/2039 Hospital Encounter Surgery Osman Barnett MD [facility] OTOLARYNGOLOGY D EPT. [place], [place] [address] (Wo rk) Scheduled Procedures Name [...] on filedocumented in this encounter Care Teams Pharmacy Analyst Relationship Specialty Start Date End Date Tara Joya MD PCP - General Family Medicine 05/16/[address] [place] [address] documented as of this encounter
--- OUTSIDE RECORDS SUMMARY | 2021-10-21 08:03 | XMS_ITS | Encounter Summary ---
:1950 Author Organization [facility] [place] [address] Care Team Providers Name Role Phone Melonie CABELLO MD, Silas Joyce Primary Care Provider [phone] Encounter Details Date Type Department Care Team Description 01/03/2013 External Results [facility] Vida Skaggs RN [address] [address] Social History Tobacco Use Types Packs/Day Years Used Date Never Assessed Sex Assigned at Date Recorded Not on file documented as of this encounter Plan of Treatment Upcoming Encounters Date Type Specialty Care Team Description 10/21/2021 Infusion Hematology and Oncology 11/09/2021 Office Visit Hematology and Oncology Alhaji Ritchie MD [facility] DR ONCOLOGY DEPT. [place], [place] [address] (Wo rk) 11/09/2021 Infusion Hematology and Oncology 12/10/2021 Office Visit Dermatology Silas Walters MD [address] [place] [address] DERMATOLOGY [place], [place] 03 [facility] [phone] (Wo rk) 09/19/2039 Hospital Encounter Surgery Osman Barnett MD [facility] OTOLARYNGOLOGY Sharlene EPT. [place], [place] [address] (Jin carson) Scheduled Procedures Name [...] Name Priority Date/Time Associated Diagnosis Comme nts EXTERNAL LIPID LAB Routine 11/13/2012 Results f or this RESULTS PANEL procedure are in the results section . documented in this encounter Results Lipid External Results (11/13/2012) P athologist Signature Chol, Total 177 mg/dL HDL 29 md/dL LDL Cholesterol 68 mg/dL Triglycerides 400 mg/dL Historical Provider POINT OF CARE TEST ORDERABLE S documented in this encounter Visit Diagnoses Not on filedocumented in this encounter Care Teams Statistics Intern Relationship Specialty Start Date End Date Silas Wilhelm II, MD PCP - General 12/25/12 05/15/[address] [place] [id number] documented as of this encounter
--- OUTSIDE RECORDS SUMMARY | 2021-10-21 08:03 | XMS_ITS | Encounter Summary ---
:1950 Author Organization [facility] [place] [address] Care Team Providers Name Role Phone Melonie CABELLO MD, Silas Joyce Primary Care Provider [phone] Reason for Visit Reason Comments Skin Check Encounter Details Date Type Department Care Team Description 01/23[facility] [place] [facility] in[facility] Nona ROMERO Basal cell carcinoma; [address] [facility] Seborrheic keratosis, inflamed [address] DERMATOLOGY [place], [place] [id number] [phone] Social History Tobacco Use Types Packs/Day Years Used Date Former Smoker Cigarettes 1.5 40 Quit: 01/09/20 03 Smokeless Tobacco: Never Used Sex Assigned at Date Recorded Not on file documented as of this encounter Patient Instructions Patient InstructionsPricilla Carpenter LPN - 01/23/2015 11:13 AM EST [facility] Actinic Keratosis: After Your Visit Your Care Instructions Actinic keratosis is a skin growth caused by sun damage. It can turn into skin cancer, but this isn't common. Actinic keratoses, also called solar keratoses, are small red, brown, or skin-colored scalypatches. They are most common on the face, neck, hands, and forearms. Your doctor can remove these growths by freezing or scraping them off or by putting medicines on them. Follow-up care is a mcneal part of your treatment and safety. Be sure to make and go to all appointments, and call your doctor if you are having problems. It's also a good idea to know your test results and keep a list of the medicines you take. How can you care for yourself at home? ?? If your doctor removes the growth, clean the area with soap and water 2 times a day unless your doctor gives you different instructions. Don't use hydrogen peroxide or alcohol, which can slow healing. ?? You may cover the wound with a thin layer of petroleum jelly, such as Vaseline, and a nonstick bandage. To prevent actinic keratosis ?? Always wear sunscreen on exposed skin. Make sure the sunscreen blocks ultraviolet rays (both UVA and UVB) and has a sun protection factor (SPF) of at least 15. Use it every day, even when it is cloudy. Some doctors may recommend a higher SPF, such as 30. ?? Wear long sleeves, a hat, and pants if you are going to be outdoors for a long time. ?? Avoid the sun between 10 a.m. and 4 p.m., the peak time for UV rays. ?? Do not use tanning booths or sunlamps. When should you call for help? Watch closely for changes in your health, and be sure to contact your doctor if: ?? The areas that were treated are red, drain pus, or have red streaks leading from them. ?? You see other growths that do not go away. ?? You do not get better as expected. Where can you learn more? Visit our health information library at [email or web address] You can also view health information on [employer], your personal patient account. Log in or sign up today. Enter L364 in the search box to learn more about Actinic Keratosis: After Your Visit. ?? [id number] [employer], [employer]. Care instructions adapted under license by [facility]. This care instruction is for use with your licensed healthcare professional. If you have questionsabout a medical condition or this instruction, always ask your healthcare professional. [employer] disclaims any warranty or liability for your use of this information. Content Version: 10.4.579776; Current as of: October 18, 2013 documented in this encounter Progress Notes Silas Walters MD - 01/23/2015 11:36 AM EST Problem: 1. Actinic check. 2. History of BCCA, left antecubital fossa, January 2014. Ward follows up referred back to see me for repeat check. He has some new lesions of concern. Physical examination reveals a pleasant 64-year-old gentleman who has two large irritated seborrheic keratoses on his back amongst smaller, noninflamed seborrheic keratoses. He has a pearly papule 6 mm in diameter on the right lower back. He has a well-healed left antecubital fossa C and D site from last year's visit. He also has several actinic keratoses on the lateral neck and on his upper forehead. A total of seven are noted. Otherwise careful examination reveals a red haired, blue eyed, fair skinned gentleman with moderate solar elastotic damage but a benign examination of the head and the neck, the chest, the back, hands, arms, and forearms. Assessment and Plan: 1. Actinic keratoses. a. LN2 times two applied to each of eight sites. b. Return to clinic in another year for repeat check. 2. Probable BCCA, right lower back. a. After obtaining informed consent site was anesthetized and shave C and D times three performed. b. Triple antibiotic ointment and Band-Aid placed. c. After curettage, site measured 8 mm in diameter. 3. History of BCCA, left antecubital fossa. a. No evidence of recurrence. b. Patient reassured. COPY: Silas Wilhelm M.D. documented in this encounter Plan of Treatment Upcoming Encounters Date Type Specialty Care Team Description 10/21/2021 Infusion Hematology and Oncology 11/09/2021 Office Visit Hematology and Oncology Alhaji Ritchie MD [facility] DR ONCOLOGY DEPT. [place], [place] [address] (Wo rk) 11/09/2021 Infusion Hematology and Oncology 12/10/2021 Office Visit Dermatology Silas Walters MD [address] [facility] DERMATOLOGY [place], [place] [address] (Wo rk) 09/19/2039 Hospital Encounter Surgery Osman Barnett MD [facility] OTOLARYNGOLOGY D EPT. [place], [place] [address] (Jin rk) Scheduled Procedures Name [...] as of this encounter Visit Diagnoses Diagnosis AK (actinic keratosis) Actinic keratosis Basal cell carcinoma Basal cell carcinoma of skin, site unspe cified Seborrheic keratosis, inflamed Inflamed seborrheic keratosis documented in this encounter Care Teams Enterprise Resource Planning Consultant Relationship Specialty Start Date End Date Silas Wilhelm II, MD PCP - General 12/25/12 05/15/15 [address] [place] [address] documented as of this encounter
--- OUTSIDE RECORDS SUMMARY | 2021-10-21 08:03 | XMS_ITS | Encounter Summary ---
:1950 Author Organization [facility] [place] [address] Care Team Providers Name Role Phone Melonie CABELLO MD, Silas Joyce Primary Care Provider [phone] Reason for Visit Reason Comments Left Foot Pain Encounter Details Date Type Department Care Team Description 04/08/2015 Office Visit Orthopaedics at [facility] BELA Celis ([facility] Elaine Palmer APRN tibial tendon [facility] dysfunction) [place] [address] ORTHOPAEDIC SURG [place], [place] [address] (Wo rk) Social History Tobacco [...] Sign Reading Time Taken Comments Blood Pressure 147/75 04/08/2015 9:25 AM EST Pulse 80 04/08/2015 9:25 AM EST Temperature - - Respiratory Rate - - Oxygen Saturation - - Inhaled Oxygen Concentration - - Weight 82.7 kg (182 lb 4.8 04/08/2015 9:25 AM fully marilu thed oz) EST Height 175.3 cm (5' 9) 04/08/2015 9:25 AM verbal EST Body Mass Index 26.92 04/08/2015 9:25 AM EST documented in this encounter Progress Notes Elaine Chris APRN - 04/08/2015 9:51 AM EST Outpatient Orthopaedic Clinic Note Name: Ward Santamaria Age:64 y.o. MR#: [id number] Date of Service: 04/08/2015 Chief Complaint: Left foot pain and deformity HPI: Ward Santamaria is a 64 y.o. year old male, with a past medical history of bipolar disorder, hepatitis C, and CAD, who presents today for further evaluation and treatment of an approximate one-year history of atraumatic left foot pain and several year history of progressive left foot deformity. Briefly, the patient reports his arch has been falling over the past several years. He locates his pain medially about the ankle and arch of the foot. He states his pain is moderate to severe in intensity intensity rated at a 7/10 with activities such as climbing a ladder walking on uneven ground. He has tried sqto-[id number] pain medications as well as arch support orthotics without any relief. The only thing that brings relief is rest. He was initially seen at [facility] where x-rays and MRI were completed. However, the patient reports the surgeon advised he seek specialty foot and ankle care as hewas not versed in this speciality. Active Ambulatory Problems Diagnosis Date Noted ??? [...] ??? PTTD (posterior tibial tendon dysfunction) 04/08/2015 Resolved Ambulatory Problems Diagnosis Date Noted ??? No Resolved Ambulatory Problems No Additional Past Medical History Past Surgical History Procedure Laterality Date ??? Kidney stone surgery Social History Occupational History ??? Not on file. Social History Main Topics ??? Smoking status: Former Smoker -- 1.50 packs/day for 40 years Types: Cigarettes Quit date: 01/08/2003 ??? Smokeless tobacco: Never Used ??? Alcohol Use: No ??? Drug Use: No ??? 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 Current Outpatient Prescriptions on File Prior to Visit Medication Sig Dispense Refill ??? metoprolol succinate (TOPROL-XL) 50 mg 24 hr tablet Take 1 tablet by mouth daily. 30 tablet 12 ??? atorvastatin (LIPITOR) 20 mg tablet Take 20 mg by mouth daily. ??? fenofibrate (TRICOR) 145 mg tablet Take 145 mg by mouth daily. ??? ARIPiprazole (ABILIFY) 15 mg tablet Take 15 mg by mouth daily. ??? lamoTRIgine (LAMICTAL) 200 mg tablet Take 200 mg by mouth 2 times daily. ??? amitriptyline (ELAVIL) 50 mg tablet Take 100 mg by mouth nightly. ??? aspirin 81 mg EC tablet Take 81 mg by mouth daily. ??? COQ10, UBIQUINOL, ORAL Take 200 mg by mouth daily. ??? nitroGLYcerin (NITROSTAT) 0.[address] 0.4 mg under the tongue every 5 minutes as needed. No current facility-administered medications on file prior to visit. Allergies Allergen Reactions ??? Penicillins rash ??? Codeine Phosphate Rash ROS: Negative for fever, chills, SOB, chest pain, nausea, vomiting, and diarrhea. Outside reports reviewed: none. Patient's medications, allergies, past medical, surgical, social and family histories were reviewed and updated as appropriate. Physical Exam: Vitals: Blood pressure 147/75, pulse 80, height 175.3 cm (5' 9), weight 82.691 kg (182 lb 4.8 oz). Gen: WD, alert, oriented. NAD. Left foot and ankle exam Derm: Warm pink and mildly atrophic. No skin breakdown or open lesions. Nails are mildly dystrophic and yellowed. Vasc: DP/PT pulses palpable. CFT < 3 seconds digits 1-5 bilateral. Hair present to digits bilateral. Neuro: Epicritic sensation intact to light touch bilateral. MSK: + Flattening of longitudinal arch. Arch reconstitutes slightly in dependent position. Positive too many toes sign and hindfoot valgus. Unable to perform single limb heel rise. No pain with active or passive ROM of AJ, STJ or 1st MPJ. + pain with palpation of PTT. No pain to Achilles or peroneal tendons. 3-4/5 strength with resisted inversion. Remaining muscle strength 5/5. Muscle mass WNL bilateral. AJ DF 5 degrees KE and 7 degrees KF. Radiologic/Vascular Studies: I reviewed x-rays of the patient's left ankle 3 weightbearing views dated 12/16/2014 which reveal mild tibiotalar, talonavicular, and subtalar joint space narrowing with a prominent tibiotalar osteophyte, slight talar head uncovering, and a plantar calcaneal spur. I also reviewed an MRI of the patient's left ankle dated December 25, 2014 which reveals degenerative changes ofthe subtalar and talonavicular joint with bone marrow edema. There is also increased signal and fluid around the posterior tibial tendon. Tendon appears congruent. No fractures identified on either study. Assessment/Plan: Ward Santamaria is a 64 y.o. year old male who presents today with a one year history of atraumatic worsening left foot pain and progressive flat foot deformity which is secondary to posterior tibial tendon dysfunction and acquired flatfoot deformity. Given the severity of his discomfort,I have advised the patient to utilize a tall walking boot for a period of 4-6 weeks with use of a arch support insole to rest the tendon. We discussed that a longer duration of immobilization in the boot may be necessary followed by a structured rehabilitation program such as the [facility] protocol. I would like the patient to meet with Dr. Santos at his next follow-up visit for further evaluation and di scussion of continued conservative versus surgical management. The patient's questions were answeredand he is in agreement with this plan. Supplies Given: 1 pair alimed insole Size 6. documented in this encounter Plan of Treatment Upcoming Encounters Date Type Specialty Care Team Description 10/21/2021 Infusion Hematology and Oncology 11/09/2021 Office Visit Hematology and Oncology Alhaji Rtichie MD [facility] ONCOLOGY DEPT. [place], [place] [address] (Wo rk) 11/09/2021 Infusion Hematology and Oncology 12/10/2021 Office Visit Dermatology Silas Walters MD [address] DERMATOLOGY [place], [place] [address] (Wo rk) 09/19/2039 Hospital Encounter Surgery Osman Barnett MD [facility] OTOLARYNGOLOGY Sharlene EPT. [place], [place] [address] (Wo rk) Scheduled Procedures Name [...] as of this encounter Visit Diagnoses Diagnosis PTTD (posterior tibial tendon dysfunctio n) Other disorders of synovium, tendon, and bursa documented in this encounter Care Teams Cardiac Cath Lab Technologist Relationship Specialty Start Date End Date Silas Wilhelm II, MD PCP - General 12/25/12 05/15/15 [address] [place] [address] documented as of this encounter
--- OUTSIDE RECORDS SUMMARY | 2021-10-21 08:03 | XMS_ITS | Encounter Summary ---
:1950 Author Organization [facility] [place] [address] Care Team Providers Name Role Phone Tara Joya MD Primary Care Provider [phone] Reason for Visit Auth/Cert - Closed Specialty Diagnoses / Procedures Referred By Contact Refer red To Contact Diagnoses CRC screening Procedures PRO COLONOSCOPY, DIAGNOSTIC COLONOSCOPY, DIAGNOSTIC Referral ID Status Reason Start Date Expiration Date Visits Requ ested Visits Authorized [id number] Closed 1 1 Encounter Details Date Type Department Care Team Description 07/07/2015 Surgery Gastroenterology at [facility] Jose Manuel Heller, COLONOSCOPY, [facility] Sharlene phillips MD POLYPECTOMY, [place] [address] [facility] LESION BY SNARE ([facility] [phone] DR Vargas) GASTROENTEROLOGY [place], [place] [address] Social History Tobacco Use Types [...] Sign Reading Time Taken Comments Blood Pressure 145/99 07/07/2015 2:03 PM EDT Pulse 81 07/07/2015 2:03 PM EDT Temperature - - Respiratory Rate 16 07/07/2015 2:03 PM EDT Oxygen Saturation 94% 07/07/2015 2:03 PM EDT Inhaled Oxygen Concentration - - Weight - - Height - - Body Mass Index - - documented in this encounter Discharge Instructions Discharge InstructionsMonica Beach RN - 07/07/2015 1:50 PM EDT Colonoscopy What to expect after the procedure You may feel a little more gassy or bloated than usual. This is normal. You should expect the return of normal bowel function in the 2 to 3 days. Activity Because of the sedation that you received your judgement and reaction time are effected ?? Go home and rest quietly for the remainder of the day. You may resume your normal activities tomorrow. ?? Change from one position to the next slowly. You may lose your balance unexpectedly ?? Be careful on stairs, as you may be unsteady on your feet FOR THE NEXT 24 HRS ?? DO NOT DRIVE OR OPERATE ANY MACHINERY ?? DO NOT DRINK ALCOHOLIC BEVERAGES ?? DO NOT SIGN LEGAL DOCUMENTS ?? If you are a smoker: DO NOT SMOKE WHILE YOU ARE ALONE Diet ?? Start by eating small portions of foods that ordinarily will not upset your stomach . Avoid gas producing foods for the next few days. ?? Be gentle with what you choose to start eating. ?? Drink plenty of fluids ( unless your doctor has told you not to). IV SITE-- slight redness, or tenderness is normal. You can use warm compresses if you become concerned. If the tenderness +/or redness increases or foul drainage and a red streak occurs, please contact your primary doctor immediately. When should you call for help? Call 911 anytime you think you may need emergency care. For example: If you pass out ( loss of consciousness) If you pass maroon or bloody stools If you have severe belly pain Call your doctor now or seek immediate medical care: If your stools are black and tarlike If your stools have streaks of blood, but you did not have a biopsy or any polyps removed If you have belly pain, or your belly is swollen and firm If you vomit If you have a fever If you are very dizzy Watch closely for changes in your health, and be sure to contact your doctor if you have any problems Your doctor will let you know when you will need your next colonoscopy. The results of your test andyour risk for colorectal cancer will help your doctor decide how often you need to be checked. If you have questions or concerns, you can call us: Tuesday-Tuesday Same Day Endoscopy [phone] Otherwise contact [phone] and ask to speak to the medical services coordinator rn medication. Follow up care is a mcneal part of your treatment and safety. Be sure to make and go to all appointments, and call your doctor if you are having problems. Discharge instructions reviewed with patient who expresses understanding. documented in this encounter Medications at Time of Discharge Medication Sig Dispensed Refills Start Date End Date metoprolol succinate Take 1 tablet by 30 tablet 12 3 (TOPROL-XL) 50 mg 24 hr mouth daily. tablet atorvastatin (LIPITOR) 20 Take 40 mg by mouth 0 mg tablet daily. fenofibrate (TRICOR) 145 Take 145 mg by 0 mg tablet mouth daily. lamoTRIgine (LaMICtal) 200 Take 200 mg by 0 mg Tablet mouth 2 times daily. amitriptyline (ELAVIL) 50 Take 100 mg by 0 mg tablet mouth nightly. aspirin 81 mg EC tablet Take 81 mg by mouth 0 daily. ABILIFY 10 mg Tablet Take 10 mg by mouth 0 201512/22/2016 nightly. benzonatate (TESSALON) 100 0 5 01/19/2019 mg Capsule doxycycline (VIBRA-TABS) 0 03/04/2015 01/19/2019 100 mg Tablet ZOSTAVAX 19,400 unit/0.65 0 05/16/2015 12/22/2016 mL Suspension for Reconstitution ARIPiprazole (ABILIFY) 15 Take 15 mg by mouth 0 07/11/2015 mg tablet daily. COQ10, UBIQUINOL, ORAL Take 200 mg by 0 03/10/2020 mouth daily. nitroGLYcerin (NITROSTAT) Place 0.4 mg under 0 07/11/2015 0.4 mg SL tablet the tongue every 5 minutes as needed. documented as of this encounter H&P Notes Jose Manuel Heller MD - 07/07/2015 12:43 PM EDT Gastroenterology and Hepatology Pre-Procedure History and Physical Exam Procedure: Colonoscopy: Indication: screen Patient Active Problem List Diagnosis Code ??? CAD (coronary artery disease) I25.10 ??? Hyperlipemia E78.5 ??? Bipolar affective disorder F31.9 ??? BPH (benign prostatic hyperplasia) N40.0 ??? Psoriasis L40.9 ??? H/O drug abuse Z87.898 ??? Hepatitis C B19.20 ??? Basal cell cancer C44.91 ??? Hypertriglyceridemia E78.1 ??? AK (actinic keratosis) L57.0 ??? Basal cell carcinoma C44.91 ??? Seborrheic keratosis, inflamed L82.0 ??? PTTD (posterior tibial tendon dysfunction) M21.40 EXAM: HEENT: Airway examined, oropharynx clear Mallampati Score: II (soft palate, uvula, fauces visible) LUNGS: Clear to auscultation HEART: Regular rate and rhythm, normal S1, S2 ABDOMEN: Normal bowel sounds, soft, non tender, non distended, A/P Proceed with the planned endoscopic procedure. ASA 2 - Patient with mild systemic disease with no functional limitations Sedation Plan: moderate (conscious sedation) Risks and benefits of the procedure explained to the patient. Consent signed. documented in this encounter Plan of Treatment Upcoming Encounters Date Type Specialty Care Team Description 10/21/2021 Infusion Hematology and Oncology 11/09/2021 Office Visit Hematology and Oncology Alhaji Ritchie MD [facility] ONCOLOGY DEPT. [place], [place] [address] (Jin carson) 11/09/2021 Infusion Hematology and Oncology 12/10/2021 Office Visit Dermatology Silas Walters MD [address] [place] [address] DERMATOLOGY [place], [place] [address] (Wo rk) 09/19/2039 Hospital Encounter Surgery Osman Barnett MD [facility] OTOLARYNGOLOGY D EPT. [place], [place] [address] (Wo yamileth) Scheduled Procedures Name Priority Associated Diagnoses Date/Time [...] Procedure Name Priority Date/Time Associated Comments Diagnosis SURGICAL PATHOLOGY Routine 07/07/2015 1:44 PM Res ults for this REPORT EDT procedure are i n the results section. SPECIMEN TO PATHOLOGY Routine 07/07/2015 1:44 PM Results for this EDT procedure are i n the results section. COLONOSCOPY, 07/07/2015 1:10 PM CRC screening POLYPECTOMY, REMOVAL EDT (IVCS) LESION BY SNARE (WRVU 4.67) COLONOSCOPY Routine 07/07/2015 12:38 Results for this PM EDT procedure are i n the results section. documented in this encounter Results Surgical Pathology Report (07/07/2015 1:44 PM EDT) [facility] Method Time Signature Surgical [id number] ? Location: ; [facility]; [facility] Pathology [place] Report The signing pathologist has (i) examined the relevant preparation(s) for the [facility] specimen(s) and (ii) rendered or confirmed the diagnosis(es) . HOSPITAL LABORATORY . ?Surgic al Pathology DIAGNOSIS Sigmoid colon, ??polypectomy: - Colonic mucosa, negative for diagnostic abnormality. ??Multiple deeper levels examined. CR-PX 07/07/15 AAY 07/10/15 Verified by: ? Fabián Rose MD ?Pathologist ?(Electronic Signature ) The attending pathologist whose signature appears on this re port has reviewed all diagnostic slides and has edited the gross and/ or microscopic portion of the report in dejuan dering the final pathologic diagnosis. CLINICAL INFORMATION Specimen Submitted: A - 2 mm polyp sigmoid Clinical History: Patient with 2 mm polyp sigmoid Clinical Diagnosis: Same SPECIMEN PROCESSING A - Labeled/Fixative: 2 mm polyp sigmoid, formalin. Quantity/Size: Single, 0.3 cm. Tissue Description: ??Soft, pink tissue . Sections/Processing: (T1) ??sns Specimen (Source) Anatomical Collection Method Collection Time Re ceived Time Location / / Volume Laterality 07/07/2015 1:44 PM EDT Jose Manuel Heller MD PATHOLOGY/CYTOLOGY ORDERABLE S Performing Organization Address City/[facility]/ZIP Code Phon e Number [address] Specimen to Pathology (surgical or derm) (07/07/2015 1:44 PM EDT) Specimen Anatomical Collection Method Collection Time Receive d Time (Source) Location / / Volume Laterality AP Specimen 07/07/2015 1:44 PM 6 1:44 EDT PM EDT Narrative [facility] - 07/07/2015 1:44 PM EDT Specimen requisition ordered. ??Separate Pathology report to follow Jose Manuel Heller MD PATHOLOGY/CYTOLOGY ORDERABLE S Performing Organization Address City/[facility]/ZIP [facility] [place] [address] COLONOSCOPY (07/07/2015 12:38 PM EDT) [facility] gist Method Time Signature COLONOSCOPY [facility] Endoscopy Patient Name: Ward Santamaria ? Procedure Date: 07/07/2015 12:38 PM ? Date of : 1950 ? Age: 64 ? Order #: [id number] ? Procedure: ? Colonoscopy Indications: ? Screening for colorectal malignant ? neoplasm Providers: ? Jose Manuel Heller MD, Ellie Peres ? CONNOR Goff, Neetu Blas, ? Manufacturers Representative Referring : ?Tara Joya Medicines: ? Midazolam 5 mg IV, Fentanyl 200 ? micrograms IV Complications: ? No immediate complications. Procedure: ? The procedure, indications, benefi ts, ? risks and alternatives were e xplained ? to the patient. Specifically ? discussed were potential ? complications including, but not ? limited to, bleeding, perfora tion, ? infection, missing a cancer, and ? adverse medication reactions. The ? patient was placed in the lef t ? lateral decubitus position, a nd a ? digital rectal exam was perfo rmed. ? The Colonoscope was inserted in the ? anus and under direct visuali zation, ? advanced to the terminal ileu m. ? Careful inspection was made a s the ? colonoscope was withdrawn. Th e ? colonoscopy was performed wit lemuel ? difficulty. The patient unique ated the ? procedure well. The quality o f the ? bowel preparation was excelle nt. ? Scope withdrawal time was 12 minutes. ? Findings: ? Multiple small and large-mouthed diverticula were ? found in the sigmoid colon and in the descending ? colon. ? A 2 mm polyp was found in the sigmoid colon. The ? polyp was sessile. The polyp was removed with a cold ? biopsy forceps. Resection and retrieval were complete . ? Internal hemorrhoids were found during retroflexion. ? The hemorrhoids were medium-sized. ? Impression: ?- Diverticulosis in the sigmoid co kilo ? and in the descending colon. ? - One 2 mm polyp in the sigmo id ? colon. Resected and retrieved . ? - Internal hemorrhoids. Recommendation: ?- Await pathology results. ? Jose Manuel Heller MD 07/07/2015 1:47 PM This report has been signed electronically. Number of Addenda: 0 Note Initiated On: 07/07/2015 12:38 PM Specimen (Source) Anatomical Collection Method Collection Time Re ceived Time Location / / Volume Laterality 07/07/2015 12:38 PM EDT Tara Joya MD GENERAL SURGICAL ORDERABLES Performing Organization Address City/State/ZIP Code Phon e Number [employer] documented in this encounter Visit Diagnoses Not on filedocumented in this encounter Administered Medications Inactive Administered Medications - up to 3 most recent administrations Medication Order MAR Action Action Date Dose Rate Site fentaNYL 50 mcg/mL multi-dose Given 07/07/2015 1:26 PM EDT 50 mc g injection ONCE PRN, Starting on 07/07/15 at 1314, Until 07/07/15 at 1417, Intra-Operative (Intra-Procedure), Routine Given 07/07/2015 1:23 PM EDT 25 mcg Given 07/07/2015 1:20 PM EDT 25 mcg midazolam (PF) (VERSED) 1 mg/mL multi-dose Given 07/07/2015 1:26 PM EDT 1 mg injection ONCE PRN, Starting on 07/07/15 at 1314, Until 07/07/15 at 1417, Intra-Operative (Intra-Procedure), Routine Given 07/07/2015 1:23 PM EDT 0.5 mg Given 07/07/2015 1:20 PM EDT 0.5 mg documented in this encounter Active and Recently Administered Medications Times are shown in EDT. PRN Medication Order 07/05/2015 07/06/2015 07/07/2015 fentaNYL 50 mcg/mL multi-dose injection (CANCELED) 1314 (Given - Provider: Ellie Goff RN)1317 (Given - Provider: Ellie Goff RN)1320 (Given - Provider: Ellie Goff RN)1323 (Given - Provider: Ellie Goff RN)1326 (Given - Provider: Ellie Goff RN) ONCE PRN, Starting 07/07/15 at 1314, Until 07/07/15 at 1417, Intra- Operative (Intra-Procedure), Routine midazolam (PF) (VERSED) 1 mg/mL multi-dose injection (CANCELED) 1314 (Given - Provider: Ellie Goff RN)1317 (Given - Provider: Ellie Goff RN)1320 (Given - Provider: Ellie Goff RN)1323 (Given - Provider: Ellie Goff RN)1326 (Given - Provider: Ellie Goff RN) ONCE PRN, Starting 07/07/15 at 1314, Until Tue07/07/15 at 1417, Intra- Operative (Intra-Procedure), Routine documented in this encounter Care Teams Support Coordinator Relationship Specialty Start Date End Date Tara Joya MD PCP - General Family Medicine 05/16/[address] [place] [address] documented as of this encounter
--- OUTSIDE RECORDS SUMMARY | 2021-10-21 08:03 | XMS_ITS | Encounter Summary ---
:1950 Author Organization [facility] [place] [address] Care Team Providers Name Role Phone Tara Joya MD Primary Care Provider [phone] Reason for Visit Reason Comments Follow-up no cardiac complaints; has a ppt this month with PCP & will have lipid labs done then. Encounter Details Date Type Department Care Team Description 12/22/2016 Office Visit Cardiology at [facility] Hyperlipidem ia, unspecified hyperlipidemia type; Nona Roque MD Coronary artery disease, angina presence unspecified, unspecified vessel or lesion type, unspecified whether lone pine or transplanted heart [address] [facility] [place] [address] [phone] Social History Tobacco Use Types Packs/Day Years Used Date Former Smoker Cigarettes 1.5 40 Quit: 01/09/20 03 Smokeless Tobacco: Never Used Alcohol Use Standard Drinks/Week Comments No 0 (1 standard drink = 0.6 oz pure alcoho l) Sex Assigned at Date Recorded Not on file documented as of this encounter Last Filed Vital Signs Vital Sign Reading Time Taken Comments Blood Pressure 120/74 12/22/2016 3:52 PM EDT Pulse 76 12/22/2016 3:52 PM EDT regular Temperature - - Respiratory Rate - - Oxygen Saturation - - Inhaled Oxygen Concentration - - Weight 73.5 kg (162 lb) 12/22/2016 3:52 PM EDT Height - - Body Mass Index 23.58 07/11/2015 11:33 AM EDT documented in this encounter Progress Notes [facility] Jr., MD - 12/22/2016 3:40 PM EDT Subjective: Patient ID: Ward Santamaria is a 66 y.o. male. Chief Complaint Patient presents with ??? Follow-up no cardiac complaints; has appt this month with PCP & will have lipid labs done then. HPI He is feeling well and has been exercising daily either walking or riding his bike. His energy level is good. He has had no chest pain or limiting dyspnea. He denies palpitations, dizziness, edema,PND or orthopnea. He is working hard on his diet and has lost weight. Review of Systems denies other issues Allergies Allergen Reactions ??? Penicillins rash ??? Codeine Phosphate Rash Current Outpatient Prescriptions Medication Sig Dispense Refill ??? ABILIFY 15 mg Tablet Take 15 [...] visit. Patient Active Problem List Diagnosis ??? Left foot pain ??? PTTD (posterior [...] cancer ??? Hypertriglyceridemia Objective: Physical Exam BP 120/74 (BP Location (NBP): Left arm, Patient Position: Sitting, BP Cuff Sizes: Adult (25-34 cm)) Pulse 76 Comment: regular Wt 73.5 kg (162 lb) BMI 23.58 kg/m2 NAD weight down 13 pounds No JVD/HJR Chest clear Cor RR, no murmur Abd benign Ext no edema Assessment and Plan: Well controlled angina- continue exercise as is Lipids- labs due at the end of this month- expect significant improvement given the weight loss Follow up yearly documented in this encounter Plan of Treatment Upcoming Encounters Date Type Specialty Care Team Description 10/21/2021 Infusion Hematology and Oncology 11/09/2021 Office Visit Hematology and Oncology Alhaji Ritchie MD [facility] DR ONCOLOGY DEPT. [place], [place] [address] (Jin carson) 11/09/2021 Infusion Hematology and Oncology 12/10/2021 Office Visit Dermatology Silas Walters MD [address] [place] [address] DERMATOLOGY [place], [place] [address] (Jin carson) 09/19/2039 Hospital Encounter Surgery Osman Barnett MD [facility] OTOLARYNGOLOGY D EPT. [place], [place] [address] (Jin carson) Scheduled Procedures Name [...] as of this encounter Visit Diagnoses Diagnosis Hyperlipidemia, unspecified hyperlipidem ia type Coronary artery disease, angina presence unspecified, unspecified vessel or lesion type, unspecified whether lone pine or drew splanted heart documented in this encounter Care Teams Dynamic Balancer Set Up Worker Relationship Specialty Start Date End Date Tara Joya MD PCP - General Family Medicine 05/16/[address] [place] [address] documented as of this encounter
--- OUTSIDE RECORDS SUMMARY | 2021-10-21 08:03 | XMS_ITS | Encounter Summary ---
:1950 Author Organization [facility] [place] [address] Care Team Providers Name Role Phone Tara Joya MD Primary Care Provider [phone] Reason for Visit Auth/Cert - Closed Specialty Diagnoses / Procedures Referred By Contact Refer red To Contact Diagnoses CRC screening Procedures PRO COLONOSCOPY, DIAGNOSTIC COLONOSCOPY, DIAGNOSTIC Referral ID Status Reason Start Date Expiration Date Visits Requ ested Visits Authorized [id number] Closed 1 1 Encounter Details Date Type Department Care Team Description 07/07/2015 Hospital En[place] [facility] Manuel Heller, [facility] [place] [address] [facility] [phone] CENTER GASTROENTEROLOGY [place], [place] [address] Social History Tobacco Use Types [...] documented in this encounter Discharge Instructions Discharge Monica Mckeon RN - 07/07/2015 1:50 PM EDT Colonoscopy [...] can call us: Tuesday-Tuesday Same Day Endoscopy [phone] Otherwise contact [phone] and ask to speak to the roof service technician social service liaison. Follow up care is a mcneal part [...] MD [facility] DR ONCOLOGY DEPT. [place], [place] [address] (Wo yamileth) 11/09/2021 Infusion Hematology and Oncology 12/10/2021 Office Visit Dermatology Silas Walters MD [address] [place] [address] DERMATOLOGY [place], [place] [address] (Wo rk) 09/19/2039 Hospital Encounter Surgery Osman Barnett MD [facility] OTOLARYNGOLOGY D EPT. [place], [place] [address] (Wo rk) Scheduled Procedures Name [...] Surgical Pathology Report (07/07/2015 1:44 PM EDT) [employer] Method Time Signature Surgical [id number] ? Location: 4; [facility]; [facility] Pathology ARIVACA Report The signing pathologist has (i) examined [...] MD PATHOLOGY/CYTOLOGY ORDERABLE S Performing Organization Address City/[facility]/[place]IP [place] [address] Specimen to Pathology (surgical or derm) (07/07/2015 1:44 PM EDT) Specimen Anatomical Collection Method Collection Time Receive d Time (Source) Location / / Volume Laterality AP Specimen 07/07/2015 1:44 PM 6 1:44 EDT PM EDT Narrative [facility] - 07/07/2015 1:44 PM EDT Specimen requisition ordered. ??Separate Pathology report to follow Jose Manuel Heller MD PATHOLOGY/CYTOLOGY ORDERABLE S Performing Organization Address City/[facility] [place] [address] COLONOSCOPY (07/07/2015 12:38 PM EDT) [facility] gist Method Time Signature COLONOSCOPY [facility] Endoscopy Patient Name: Ward Santamaria ? Procedure Date: 07/07/2015 12:38 PM ? Date of : 1950 ? Age: 64 ? Order #: [id number] ? Procedure: ? Colonoscopy Indications: ? Screening for colorectal malignant ? neoplasm Providers: ? Jose Manuel Heller MD, Ellie Peres ? [place] Goff, Neetu Blas, ? Bindery Chief Referring : ?Tara MChico Joya Medicines: ? Midazolam 5 mg IV, [...] Diagnoses Not on filedocumented in this encounter Active and Recently Administered Medications Times are shown in EDT. PRN Medication Order 07/05/2015 07/06/2015 07/07/2015 fentaNYL 50 mcg/mL multi-dose injection (CANCELED) 1314 (Given - Provider: Ellie Goff RN)1317 (Given - Provider: Ellie Goff RN)1320 (Given - Provider: Ellie Goff RN)1323 (Given - Provider: Ellie Goff RN)1326 (Given - Provider: Ellie Goff, RN) ONCE PRN, Starting 07/07/15 at 1314, Until 07/07/15 at 1417, Intra- Operative (Intra-Procedure), Routine midazolam (PF) (VERSED) 1 mg/mL multi-dose injection (CANCELED) 1314 (Given - Provider: Ellie Goff RN)1317 (Given - Provider: Ellie Goff RN)1320 (Given - Provider: Ellie Goff, [place])1323 (Given - Provider: Ellie Goff RN)1326 (Given - Provider: Ellie Goff RN) ONCE PRN, Starting 07/07/15 at 1314, Until 07/07/15 at 1417, Intra- Operative (Intra-Procedure), Routine documented in this encounter Care Teams Matrix Worker Relationship Specialty Start Date End Date Tara Joya MD PCP - General Family Medicine 05/16/[address] [place] [address] documented as of this encounter
--- OUTSIDE RECORDS SUMMARY | 2021-10-21 08:03 | XMS_ITS | Encounter Summary ---
:1950 Author Organization [facility] [place] [address] Care Team Providers Name Role Phone Melonie CABELLO MD, Silas Joyce Primary Care Provider [phone] Reason for Visit Reason Onset Date Comments Bumped Appointment 03/28/2015 Encounter Details Date Type Department Care Team Description 03/28/2015 Telephone Orthopaedics at [facility] Rey Santos, [place] [address] ORTHOPAEDIC SURG [place], [place] [address] (Wo rk) Social History Tobacco Use Types Packs/Day Years Used Date Former Smoker Cigarettes 1.5 40 Quit: 01/09/20 03 Smokeless Tobacco: Never Used Sex Assigned at Date Recorded Not on file documented as of this encounter Miscellaneous Notes Telephone Encounter - Mariela Meraz - 03/28/2015 11:54 AM EST Patient rescheduled Telephone Encounter - Vanessa Huber - 03/28/2015 11:46 AM EST SPOKE WITH PATIENT AND RESCHEDULED Telephone Encounter - Delmy Bryant - 03/28/2015 11:39 AM EST LM#1 to reschedule bumped appt to another day. Ok to book in an 8am slot on another clinic day, per Mariela. documented in this encounter Plan of Treatment Upcoming Encounters Date Type Specialty Care Team Description 10/21/2021 Infusion Hematology and Oncology 11/09/2021 Office Visit Hematology and Oncology Alhaji Ritchie MD [facility] DR ONCOLOGY DEPT. [place], [place] [address] (Wo rk) 11/09/2021 Infusion Hematology and Oncology 12/10/2021 Office Visit Dermatology Silas Walters MD [address] [place] [address] DERMATOLOGY [place], [place] [address] (Wo rk) 09/19/2039 Hospital Encounter Surgery Osman Barnett MD [facility] OTOLARYNGOLOGY D EPT. [place], [place] [address] (Wo rk) Scheduled Procedures Name [...] filedocumented in this encounter Care Teams Marketing Production Coordinator Relationship Specialty Start Date End Date Silas Wilhelm II, MD PCP - General 12/25/12 05/15/15 [address] [place] [address] documented as of this encounter
--- OUTSIDE RECORDS SUMMARY | 2021-10-21 08:03 | XMS_ITS | Encounter Summary ---
:1950 Author Organization [facility] Address [place] [id number] Care Team Providers Name Role Phone Melonie CABELLO MD, Silas Joyce Primary Care Provider [phone] Reason for Visit Reason Comments Follow-up no cardiac complaints; no c/ o chest pain Encounter Details Date Type Department Care Team Description 11/11/2014 Follow-Up Cardiology at [facility] Jr., ASCVD ( arteriosclerotic Nona ROMERO cardiovascular disease) [address] [facility] [address] [place], [place] [address] [phone] Social History Tobacco Use Types Packs/Day Years Used Date Former Smoker Cigarettes 1.5 40 Quit: 01/09/20 03 Smokeless Tobacco: Never Used Sex Assigned at Date Recorded Not on file documented as of this encounter Last Filed Vital Signs Vital Sign Reading Time Taken Comments Blood Pressure 132/64 11/11/2014 3:36 PM EDT Pulse 60 11/11/2014 3:36 PM EDT regular Temperature - - Respiratory Rate - - Oxygen Saturation - - Inhaled Oxygen Concentration - - Weight 78.9 kg (174 lb) 11/11/2014 3:36 PM EDT Height - - Body Mass Index 25.33 09/03/2013 3:08 PM EDT documented in this encounter Progress Notes [facility] Jr., MD - 11/11/2014 3:46 PM EDT Subjective: Patient ID: Ward Santamaria is a 63 y.o. male. Chief Complaint Patient presents with ??? Follow-up no cardiac complaints; no c/o chest pain HPI He was feeling well before he developed kidney stones. He has had abdominal and back pain on andoff and has undergone stenting of a ureter and lithotripsy. He has not has any chest pain, dyspnea, palpitations or edema. Review of Systems negative except as above Allergies Allergen Reactions ??? Penicillins rash ??? Codeine Phosphate Rash Current Outpatient Prescriptions Medication Sig Dispense Refill ??? metoprolol succinate [...] minutes as needed. No current facility-administered medications for this visit. Patient Active Problem List Diagnosis ??? AK (actinic keratosis) ??? Basal cell [...] cancer ??? Hypertriglyceridemia Objective: Physical Exam BP 132/64 mmHg Pulse 60 Wt 78.926 kg (174 lb) NAD No JVD/HJR Chest clear Cor RR, no murmur Abd benign Ext no edema Labs: lipids due next month Assessment and Plan: Well controlled angina Await labs re lipids Follow up yearly documented in this encounter Plan of Treatment Upcoming Encounters Date Type Specialty Care Team Description 10/21/2021 Infusion Hematology and Oncology 11/09/2021 Office Visit Hematology and Oncology Alhaji Ritchie MD [facility] DR ONCOLOGY DEPT. [place], [place] [address] (Wo rk) 11/09/2021 Infusion Hematology and Oncology 12/10/2021 Office Visit Dermatology Silas Walters MD [address] [place] [address] DERMATOLOGY [place], [place] [address] (Wo rk) 09/19/2039 Hospital Encounter Surgery Osman Barnett MD [facility] OTOLARYNGOLOGY D EPT. [place], [place] [address] (Wo rk) Scheduled Procedures Name [...] (arteriosclerotic cardiovascular d isease) Unspecified cardiovascular disease documented in this encounter Care Teams Public Relations Studies Director Relationship Specialty Start Date End Date Silas Wilhelm II, MD PCP - General 12/25/12 05/15/[address] [place] [address] documented as of this encounter
--- OUTSIDE RECORDS SUMMARY | 2021-10-21 08:03 | XMS_ITS | Encounter Summary ---
:1950 Author Organization [place] [address] Care Team Providers Name Role Phone Melonie CABELLO MD, Silas Joyce Primary Care Provider [phone] Reason for Visit Reason Onset Date Comments Follow-up 04/18/2015 Encounter Details Date Type Department Care Team Description 04/18/2015 Telephone Orthopaedics at [facility] Rey Santos, KIM Follow-up [place] [address] ORTHOPAEDIC SURGERY [phone] [place], [place] [address] (Wo rk) Social History Tobacco Use Types Packs/Day Years Used Date Former Smoker Cigarettes 1.5 40 Quit: 01/09/20 03 Smokeless Tobacco: Never Used Alcohol Use Standard Drinks/Week Comments No 0 (1 standard drink = 0.6 oz pure alcoho l) Sex Assigned at Date Recorded Not on file documented as of this encounter Miscellaneous Notes Telephone Encounter - Brandon Johnson - 04/23/2015 1:17 PM EST Spoke with pt. Pt states he was supposed to be wearing a boot for 5 weeks before his follow up and has been unable to wear it because of weather. Pt will call when he starts wearing boot. We will need to schedule a follow up with Dr Santos 5 weeks after that. Telephone Encounter - Delmy Bryant - 04/18/2015 3:48 PM EST LM#1 to reschedule appt from Abiola's schedule to Dr. Santos's for surgical consultation. documented in this encounter Plan of Treatment Upcoming Encounters Date Type Specialty Care Team Description 10/21/2021 Infusion Hematology and Oncology 11/09/2021 Office Visit Hematology and Oncology Alhaji Ritchie MD [facility] DR ONCOLOGY DEPT. [place], [place] [address] (Wo rk) 11/09/2021 Infusion Hematology and Oncology 12/10/2021 Office Visit Dermatology Silas Walters MD [address] [place] [address] DERMATOLOGY [place], [place] [address] (Wo rk) 09/19/2039 Hospital Encounter Surgery Osman Barnett MD [facility] OTOLARYNGOLOGY D EPT. [place], [place] [address] (Wo rk) Scheduled Procedures Name [...] filedocumented in this encounter Care Teams Manager Msw Relationship Specialty Start Date End Date Silas Wilhelm II, MD PCP - General 12/25/12 05/15/15 [address] [place] [address] documented as of this encounter
--- OUTSIDE RECORDS SUMMARY | 2021-10-21 08:03 | XMS_ITS | Encounter Summary ---
:1950 Author Organization [facility] [place] [address] Care Team Providers Name Role Phone Zelda Chacon MD Primary Care Provider [phone] Encounter Details Date Type Department Care Team Description 12/20/2012 Ancillary Appointment [facility] Jr[facility] [address] [facility] [place] [address] [place] [address] [phone] (Wo rk) Social History Tobacco Use Types Packs/Day Years Used Date Never Assessed Sex Assigned at Date Recorded Not on file documented as of this encounter Plan of Treatment Upcoming Encounters Date Type Specialty Care Team Description 10/21/2021 Infusion Hematology and Oncology 11/09/2021 Office Visit Hematology and Oncology Alhaji Ritchie MD [facility] DR ONCOLOGY DEPT. [place], [place] [address] (Wo rk) 11/09/2021 Infusion Hematology and Oncology 12/10/2021 Office Visit Dermatology Silas Walters MD [address] [facility] DERMATOLOGY [place], [place] [address] (Wo rk) 09/19/2039 Hospital Encounter Surgery Osman Barnett MD [facility] OTOLARYNGOLOGY D EPT. [place], [place] [address] (Wo rk) Scheduled Procedures Name [...] Priority Date/Time Associated Diagnosis Comme nts NM EXERCISE STRESS AND Routine 12/20/2012 Resul ts for this REST MYOCARDIAL procedure ar e in the PERFUSION results section . documented in this encounter Results NM myocardial perfusion - stress & rest (12/20/2012) Anatomical Region Laterality Modality Other Narrative 12/20/2012 MIBI Exercise Stress Test- Final Report ?? Ward Santamaria : 1950 [facility], [address] [place] [address] Primary Physician: ??Zachary Wilhelm MD ??Ind ication: arm pain-anginal equivalent Date: 12/20/2012 Summary: Max Exercise: ??7:30, 1:30 ??Stage III ? ?Stevie ?? 9 ?? METS Max HR: ? 125< 85 % PMR(134) Max BP: ??160/[address] change: ??none Reason for Termination: slight arm pain, fatigue Imaging: ??Questionable small apical inf erior lateral defect ??EF 62 % Impression: fair exercise tolerance, que stionable small area of ischemia, heart rate limited by beta blo cker Details: Medication: at low point of metoprolol Risk Factors: ??Known ASCVD Resting EKG: NSR 72, normal ?Resting BP: 136/74 Exercise per Stevie protocol Arrhythmias: none Recovery: ??BP ?? -> ?? 154/74 ?HR ? ? -> 98 Arrhythmias: none Rest Images: 29.1 mC MIBI, Spect-normal Stress Images: ??10 mC MIBI, Spect-quest ionable small apical inferior lateral defect Electronically signed: [facility] Jr, MD [facility] Historical Provider MD GALE NM ORDERABLES documented in this encounter Visit Diagnoses Not on filedocumented in this encounter Care Teams Curb Setter Helper Relationship Specialty Start Date End Date Zelda Chacon MD PCP - General 02/10/10 12/24/12 [address] [place] [address] documented as of this encounter
--- OUTSIDE RECORDS SUMMARY | 2021-10-21 08:03 | XMS_ITS | Encounter Summary ---
:1950 Author Organization [facility] [place] [address] Care Team Providers Name Role Phone Tara Joya MD Primary Care Provider [phone] Reason for Visit Reason Comments Follow-up no cardiac complaints Encounter Details Date Type Department Care Team Description 12/18/2015 Office Visit Cardiology at [facility] ASCVD (arter iosclerotic cardiovascular disease); Nona Roque MD Elevated cholesterol [address] [facility] [place] [address] [phone] Social History Tobacco Use Types Packs/Day Years Used Date Former Smoker Cigarettes 1.5 40 Quit: 01/09/20 03 Smokeless Tobacco: Never Used Alcohol Use Standard Drinks/Week Comments No 0 (1 standard drink = 0.6 oz pure alcoho l) Sex Assigned at Date Recorded Not on file documented as of this encounter Last Filed Vital Signs Vital Sign Reading Time Taken Comments Blood Pressure 130/80 12/18/2015 3:34 PM EDT Pulse 76 12/18/2015 3:34 PM EDT regular Temperature - - Respiratory Rate - - Oxygen Saturation - - Inhaled Oxygen Concentration - - Weight 79.4 kg (175 lb) 12/18/2015 3:34 PM EDT Height - - Body Mass Index 25.47 07/11/2015 11:33 AM EDT documented in this encounter Progress Notes Michael [facility] Jr., MD - 12/18/2015 3:30 PM EDT Subjective: Patient ID: Ward Sierra is a 65 y.o. male. Chief Complaint Patient presents with ??? Follow-up no cardiac complaints HPI He has been very active doing all his chores and other activities without chest pain or limitingdyspnea. He denies palpitations, dizziness, edema, PND or orthopnea. He is following his diet fairlywell but not perfectly. His energy level is good. Review of Systems denies other issues Allergies Allergen Reactions ??? Penicillins rash ??? Codeine Phosphate Rash Current Outpatient Prescriptions Medication Sig Dispense Refill ??? ABILIFY 10 mg Tablet Take 10 mg by mouth nightly. ??? benzonatate (TESSALON) 100 mg Capsule ??? doxycycline (VIBRA-TABS) 100 mg Tablet ??? ZOSTAVAX 19,400 unit/0.65 mL Suspension for Reconstitution ??? metoprolol succinate (TOPROL-XL) 50 mg 24 [...] cancer ??? Hypertriglyceridemia Objective: Physical Exam BP 130/80 (BP Location (NBP): Left arm, Patient Position: Sitting, BP Cuff Sizes: Adult (25-34 cm)) Pulse 76 Comment: regular Wt 79.4 kg (175 lb) BMI 25.47 kg/m2 NAD No JVD/HJR Chest clear Cor RR, no murmur Abd benign Ext no edema Results for WARD SIERRA ( ) as of 12/19/2015 09:10 Ref. Range 11/21/2015 00:00 Chol, Total Latest Units: mg/dL 142 HDL Latest Units: md/dL 25 Triglycerides Latest Units: mg/dL 257 LDL Cholesterol Latest Units: mg/dL 66 Assessment and Plan: Well controlled angina. Encouraged to keep up activity over the winter Lipids- excellent LDL- poor HDL/TG- reviewed diet and continued exercise Follow up yearly documented in this encounter Plan of Treatment Upcoming Encounters Date Type Specialty Care Team Description 10/21/2021 Infusion Hematology and Oncology 11/09/2021 Office Visit Hematology and Oncology Alhaji Ritchie MD [facility] DR ONCOLOGY DEPT. [place], [place] [address] (Jin carson) 11/09/2021 Infusion Hematology and Oncology 12/10/2021 Office Visit Dermatology Silas Walters MD [address] [place] [address] DERMATOLOGY [place], [place] [address] (Jin carson) 09/19/2039 Hospital Encounter Surgery Osman Barnett MD [facility] OTOLARYNGOLOGY D EPT. [place], [place] [address] (Jin carson) Scheduled Procedures Name [...] Priority Date/Time Associated Diagnosis Comme nts EXTERNAL LAB RESULTS Routine 11/21/2015 Results for this procedure are i n the results section . documented in this encounter Results External Lab Results (11/21/2015) P athologist Signature Chol, Total 142 mg/dL HDL 25 md/dL Triglycerides 257 mg/dL LDL Cholesterol 66 mg/dL Historical Provider CHEMISTRY ORDERABLES documented in this encounter Visit Diagnoses Diagnosis ASCVD (arteriosclerotic cardiovascular d isease) Unspecified cardiovascular disease Elevated cholesterol Pure hypercholesterolemia documented in this encounter Care Teams Classification Case Manager Relationship Specialty Start Date End Date Tara Joya MD PCP - General Family Medicine 05/16/[address] [place] [address] documented as of this encounter
--- OUTSIDE RECORDS SUMMARY | 2021-10-21 08:03 | XMS_ITS | Encounter Summary ---
:1950 Author Organization [facility] [place] [address] Care Team Providers Name Role Phone Tara Joya MD Primary Care Provider [phone] Reason for Referral Physical Therapy (Routine) - Closed Specialty Diagnoses / Procedures Referred By Contact Refer red To Contact Physical Therapy Diagnoses PTTD (posterior tibial tendon dysfunction) Left foot pain Rey Santos DPM [facility] D R [place] [address] Referral ID Status Reason Start Date Expiration Date Visits V isits Requested Authorized [id number] Closed Evaluate and 07/11/2015 01/07/2016 12 12 Treat Reason for Visit Reason Comments Left Foot Pain L foot Pain Encounter Details Date Type Department Care Team Description 07/11/2015 [place] [facility] [place] PTTD (posterior tibial tendo n dysfunction) (Primary Dx); [facility] D[place] [address] CENTER [phone] ORTHOPAEDIC SURGERY [place], [place] [address] Social History Tobacco Use Types [...] Sign Reading Time Taken Comments Blood Pressure 148/85 07/11/2015 11:33 AM EDT Pulse 99 07/11/2015 11:33 AM EDT Temperature - - Respiratory Rate - - Oxygen Saturation - - Inhaled Oxygen Concentration - - Weight 78 kg (172 lb) 07/11/2015 11:33 AM EDT Height 176.5 cm (5' 9.5) 07/11/2015 11:33 AM EDT Body Mass Index 25.04 07/11/2015 11:33 AM EDT documented in this encounter Patient Instructions Patient InstructionsToRey francisco DPM - 07/11/2015 11:48 AM EDT Try physical therapy. Follow up after PT has been completed. documented in this encounter Progress Notes Rey Santos DPM - 07/11/2015 11:31 AM EDT Outpatient Orthopaedic Clinic Note Name: Ward Santamaria Age:64 y.o. MR#: [id number] Date of Service: 07/11/2015 Chief Complaint: Left foot pain and deformity HPI: Ward Santamaria is a 64 y.o. year old male, with a past medical history of bipolar disorder, hepatitis C, and CAD, who presents today for further evaluation and treatment of his left flatfoot. He has noted the arch has flattened and the foot is starting to point out words. He did try the boot but hadsome issues with his hip and back when wearing this. He presents today with continued pain and ratesthis at 410. He likes no other treatment options are available. Patient notes the discomfort to be most prominent on uneven terrain. ROS: Negative for fever, chills, SOB, chest pain, nausea, vomiting, and diarrhea. Patient's medications, allergies, past medical, surgical, social and family histories were reviewed and updated as appropriate. Physical Exam: Vitals: Blood pressure 148/85, pulse 99, height 176.5 cm (5' 9.5), weight 78.019 kg (172 lb). Gen: WD, alert, oriented. NAD. Left foot and ankle exam Derm: Warm pink and mildly atrophic. No skin breakdown or open lesions. Nails are mildly dystrophic and yellowed. No erythema or ecchymosis noted. Vasc: DP/PT pulses palpable. CFT < 3 seconds digits 1-5 bilateral. Hair present to digits bilateral. Neuro: Epicritic sensation intact to light touch bilateral. MSK: + Flattening of longitudinal arch. Arch reconstitutes slightly in dependent position. Positive too many toes sign and hindfoot valgus with weightbearing. Unable to perform single limb heel rise. Difficulty with double limb heel rise. No pain with active or passive ROM of AJ, STJ or 1st MPJ. + pain with palpation of PTT, mostly at its insertion and deep plantarly. No pain to Achilles or peroneal tendons. 3-4/5 strength with resisted inversion. Remaining muscle strength 5/5. Muscle mass WNL bilateral. AJ DF 2 degrees KE and 4 degrees KF. Radiologic/Vascular Studies: I reviewed x-rays of the patient's left ankle 3 non-weightbearing viewsdated 12/16/2014. Difficult to fully appreciate the extent of deformity due to nonweightbearing nature of films. Ankle and subtalar joints appear within normal limits with no significant arthritic she does noted. Also reviewed MRI of left foot 01/02 with some evidence of signal change around and withinthe posterior tibial tendon. Assessment/Plan: Ward Santamaria is a 64 y.o. year old male who presents today for further evaluation ofhis left flatfoot deformity. Patient did not tolerate the immobilization and the boot very well. We have discussed further treatment options including physical therapy to stretch his calf musculature and to strengthen the posterior tibial tendon. We have discussed the Kavin protocol and I provided the patient with a prescription for physical therapy along with the protocol information. I've also provided the patient with some other information and materials on adult acquired flatfoot. We have alsodiscussed the possibility of an Luz Elena brace in the future and I have showed him what this looks like. We have also briefly discussed surgical intervention and the extent of the surgery and duration of the recovery period. Patient is willing to proceed with physical therapy and we will see how he is doing in the next few months. Patient relates understanding and all questions were answered. documented in this encounter Plan of Treatment Upcoming Encounters Date Type Specialty Care Team Description 10/21/2021 Infusion Hematology and Oncology 11/09/2021 Office Visit Hematology and Oncology Alhaji Ritchie MD [facility] DR ONCOLOGY DEPT. [place], [place] [address] (Wo rk) 11/09/2021 Infusion Hematology and Oncology 12/10/2021 Office Visit Dermatology Silas Walters MD [address] [facility] DERMATOLOGY [place], [place] [address] (Wo rk) 09/19/2039 Hospital Encounter Surgery Osman Barnett MD [facility] OTOLARYNGOLOGY D EPT. [place], [place] [address] (Wo rk) Scheduled Procedures Name [...] S chedule Referral to Outpatient Referral Routine PTTD (posterior Order ed: Physical Therapy tibial tendon 07/11/2015 dysfunction) Left foot pain documented as of this encounter Visit Diagnoses Diagnosis PTTD (posterior tibial tendon dysfunctio n) - Primary Other disorders of synovium, tendon, and bursa Left foot pain Pain in limb documented in this encounter Care Teams Gambling Cashier Relationship Specialty Start Date End Date Tara Joya MD PCP - General Family Medicine 05/16/[address] [place] [address] documented as of this encounter
--- OUTSIDE RECORDS SUMMARY | 2021-10-21 08:03 | XMS_ITS | Encounter Summary ---
:1950 Author Organization [facility] [address] Care Team Providers Name Role Phone Melonie CABELLO MD, Silas Joyce Primary Care Provider [phone] Encounter Details Date Type Department Care Team Description 11/22/2014 Telephone Cardiology at [facility] Michael Washburn Jr., MD [address] [place] [address] [facility] [place] [address] [place] [address] [phone] (Wo rk) Social History Tobacco Use Types Packs/Day Years Used Date Former Smoker Cigarettes 1.5 40 Quit: 01/09/20 03 Smokeless Tobacco: Never Used Sex Assigned at Date Recorded Not on file documented as of this encounter Miscellaneous Notes Telephone Encounter - Michael Washburn Jr., MD - 11/28/2014 7:35 AM EDT Letter sent Telephone Encounter - Basim Felix RN - 11/22/2014 3:01 PM EDT Lipid results entered. Results for WARD SIERRA ( ) as of 11/22/2014 15:01 Ref. Range 11/13/2012 00:00 10/25/2013 00:00 11/18/2014 00:00 Chol, Total No range found 177 185 161 HDL No range found 29 27 30 Triglycerides No range found 400 470 337 LDL Cholesterol No range found 68 64 documented in this encounter Plan of Treatment Upcoming Encounters Date Type Specialty Care Team Description 10/21/2021 Infusion Hematology and Oncology 11/09/2021 Office Visit Hematology and Oncology Alhaji Ritchie MD [facility] DR ONCOLOGY DEPT. [place], [place] [address] (Wo rk) 11/09/2021 Infusion Hematology and Oncology 12/10/2021 Office Visit Dermatology Silas Walters MD [address] [facility] DERMATOLOGY [place], [place] [address] (Wo rk) 09/19/2039 Hospital Encounter Surgery Osman Barnett MD [facility] OTOLARYNGOLOGY D EPT. [place], [place] [address] (Wo rk) Scheduled Procedures Name [...] Diagnosis Comme nts EXTERNAL LAB RESULTS Routine 11/18/2014 Results for this procedure are i n the results section . documented in this encounter Results External Lab Results (11/18/2014) P athologist Signature Chol, Total 161 mg/dL Triglycerides 337 mg/dL HDL 30 md/dL LDL Cholesterol 64 mg/dL Historical Provider CHEMISTRY ORDERABLES documented in this encounter Visit Diagnoses Not on filedocumented in this encounter Care Teams Flight Service Specialist Relationship Specialty Start Date End Date Silas Wilhelm II, MD PCP - General 12/25/[address] [place] [address] documented as of this encounter
--- OUTSIDE RECORDS SUMMARY | 2021-10-21 08:03 | XMS_ITS | Encounter Summary ---
:1950 Author Organization [facility] [place] [address] Care Team Providers Name Role Phone Melonie CABELLO MD, Silas Joyce Primary Care Provider [phone] Reason for Visit Reason Comments Follow-up 6 months Coronary Artery Disease Encounter Details Date Type Department Care Team Description 09/03/2013 Follow-Up Cardiology at Michael Washburn Jr., ASCVD ( arteriosclerotic Nona MD cardiovascular disease) [address] [facility] ( Primary Dx) [place], [place] [address] [phone] Social History Tobacco Use Types Packs/Day Years Used Date Former Smoker Cigarettes 1.5 40 Quit: 01/09/20 03 Smokeless Tobacco: Never Used Sex Assigned at Date Recorded Not on file documented as of this encounter Last Filed Vital Signs Vital Sign Reading Time Taken Comments Blood Pressure 110/70 09/03/2013 3:08 PM EDT Pulse 68 09/03/2013 3:08 PM EDT Temperature - - Respiratory Rate 14 09/03/2013 3:08 PM EDT Oxygen Saturation - - Inhaled Oxygen Concentration - - Weight 80.3 kg (177 lb) 09/03/2013 3:08 PM EDT Height 176.5 cm (5' 9.5) 09/03/2013 3:08 PM EDT Body Mass Index 25.76 09/03/2013 3:08 PM EDT documented in this encounter Progress Notes Michael Washburn Jr., MD - 09/03/2013 3:15 PM EDT Subjective: Patient ID: Ward Santamaria is a 62 y.o. male. Chief Complaint Patient presents with ??? Follow-up 6 months ??? Coronary Artery Disease HPI He has had only one episode of atypical chest discomfort at rest. He has had no exertional pain or limiting dyspnea. He has mild orthostatic dizziness. He denies edema, PND, orthopnea or palpitations. Review of Systems lipids have been variable, not at goal Allergies Allergen Reactions ??? Penicillins rash ??? [...] the tongue every 5 minutes as needed. Patient Active Problem List Diagnosis ??? CAD (coronary artery disease) 2001- stent [...] cancer ??? Hypertriglyceridemia Objective: Physical Exam BP 110/70 Pulse 68 Resp 14 Ht 176.5 cm (5' 9.5) Wt 80.287 kg (177 lb) BMI 25.77 kg/m2 NAD No JVD/HJR Chest clear Cor RR, no murmur Abd benign Ext no edema Assessment and Plan: Well controlled angina Orthostatic dizziness side effect of meds- cautioned to move slower and keep well hydrated Await lipid labs from next PCP visit Follow up yearly documented in this encounter Plan of Treatment Upcoming Encounters Date Type Specialty Care Team Description 10/21/2021 Infusion Hematology and Oncology 11/09/2021 Office Visit Hematology and Oncology Alhaji Ritchie MD [facility] DR ONCOLOGY DEPT. [place], [place] [address] (Wo rk) 11/09/2021 Infusion Hematology and Oncology 12/10/2021 Office Visit Dermatology Silas Walters MD [address] [facility] DERMATOLOGY [place], [place] [address] (Jin rk) 09/19/2039 Hospital Encounter Surgery Osman Barnett MD [facility] OTOLARYNGOLOGY D EPT. [place], [place] [address] (Jin rk) Scheduled Procedures Name [...] Diagnoses Diagnosis ASCVD (arteriosclerotic cardiovascular d isease) - Primary Unspecified cardiovascular disease documented in this encounter Care Teams Criminal Investigator Relationship Specialty Start Date End Date Silas Wilhelm II, MD PCP - General 12/25/12 05/15/15 [address] [place] [address] documented as of this encounter
--- OUTSIDE RECORDS SUMMARY | 2021-10-21 08:03 | XMS_ITS | Encounter Summary ---
:1950 Author Organization [facility] Address [address] [place] [address] Care Team Providers Name Role Phone Melonie CABELLO MD, Silas Joyce Primary Care Provider [phone] Encounter Details Date Type Department Care Team Description 12/25/2014 Hospital Encounter Radiology Library at [facility], [place] [address] Social History Tobacco Use Types Packs/Day [...] Take 81 mg by mouth 0 daily. ARIPiprazole (ABILIFY) 15 Take 15 mg by mouth 0 07/11/2015 mg tablet daily. COQ10, UBIQUINOL, ORAL Take 200 mg by 0 03/10/2020 mouth daily. nitroGLYcerin (NITROSTAT) Place 0.4 mg under 0 07/11/2015 0.4 mg SL tablet the tongue every 5 minutes as needed. documented as of this encounter Plan of Treatment Upcoming Encounters Date Type Specialty Care Team Description 10/21/2021 Infusion Hematology and Oncology 11/09/2021 Office Visit Hematology and Oncology Alhaji Ritchie MD [facility] DR ONCOLOGY DEPT. [place], [place] [address] (Wo rk) 11/09/2021 Infusion Hematology and Oncology 12/10/2021 Office Visit Dermatology Silas Walters MD [address] DERMATOLOGY [place], [place] [address] (Wo rk) 09/19/2039 Hospital Encounter Surgery Osman Barnett MD [facility] OTOLARYNGOLOGY D EPT. [place], [place] [address] (Wo rk) Scheduled Procedures Name [...] Associated Diagnosis Comme nts FILM LIBRARY Routine 12/25/2014 12:00 AM Pain Results for this STORAGE ONLY MR EDT procedure ar e in FOOT the results section. documented in this encounter Results Film Library- Storage only MR Foot (12/25/2014 12:00 AM EDT) Specimen (Source) Anatomical Location Collection Method / Collectio n Time Received Time / Laterality Volume Narrative [facility] - 04/08/2015 8:57 AM EST See PACS for result report. Dr Nereida Abramsh IMG FILM LIBRARY ORDERABLES Performing Organization Address City/State/ZIP Code Phon e Number [facility] DH [place], [place] documented in this encounter Visit Diagnoses Diagnosis Pain Generalized pain documented in this encounter Care Teams Repairer Welding Systems And Equipment Relationship Specialty Start Date End Date Silas Wilhelm II, MD PCP - General 12/25/12 05/15/15 [address] [place] [address] documented as of this encounter
--- OUTSIDE RECORDS SUMMARY | 2021-10-21 08:03 | XMS_ITS | Encounter Summary ---
:1950 Author Organization [facility] [place] [address] Care Team Providers Name Role Phone Melonie CABELLO MD, Silas Joyce Primary Care Provider [phone] Reason for Visit Reason Comments Follow-up 6 weeks, med change Encounter Details Date Type Department Care Team Description 03/05/2013 Follow-Up Cardiology at Michael Washburn Jr., ASCVD ( arteriosclerotic cardiovascular disease) (Primary Dx); Nona ROMERO CAD (coronary artery disease) [address] [facility] [address] [place], [place] [id number] [phone] Social History Tobacco Use Types Packs/Day Years Used Date Former Smoker Cigarettes 1.5 40 Quit: 01/09/20 03 Smokeless Tobacco: Never Used Sex Assigned at Date Recorded Not on file documented as of this encounter Last Filed Vital Signs Vital Sign Reading Time Taken Comments Blood Pressure 140/64 03/05/2013 3:34 PM EST Pulse 80 03/05/2013 3:34 PM EST Temperature - - Respiratory Rate 14 03/05/2013 3:34 PM EST Oxygen Saturation - - Inhaled Oxygen Concentration - - Weight 81.6 kg (180 lb) 03/05/2013 3:34 PM EST Height 175.3 cm (5' 9) 03/05/2013 3:34 PM EST Body Mass Index 26.58 03/05/2013 3:34 PM EST documented in this encounter Progress Notes Michael Washburn Jr., MD - 03/05/2013 3:47 PM EST Subjective: Patient ID: Ward Santamaria is a 62 y.o. male. Chief Complaint Patient presents with ??? Follow-up 6 weeks, med change HPI He is feeling well and has had no further CP or arm pain. He hunted and walked long distances without problems. His energy level is good. Review of [...] cancer ??? Hypertriglyceridemia Objective: Physical Exam BP 140/64 Pulse 80 Resp 14 Ht 175.3 cm (5' 9) Wt 81.647 kg (180 lb) BMI 26.58 kg/m2 NAD No JVD/HJR Chest clear Cor RR, no murmur Abd benign Ext no edema Assessment and Plan: Good angina control-encouraged continued activity Follow up 6 months documented in this encounter Plan of Treatment Upcoming Encounters Date Type Specialty Care Team Description 10/21/2021 Infusion Hematology and Oncology 11/09/2021 Office Visit Hematology and Oncology Alhaji Ritchie MD [facility] DR ONCOLOGY DEPT. [place], [place] [address] (Wo rk) 11/09/2021 Infusion Hematology and Oncology 12/10/2021 Office Visit Dermatology Silas Walters MD [address] [place] [address] DERMATOLOGY [place], [place] [address] (Wo rk) 09/19/2039 Hospital Encounter Surgery Osman Barnett MD [facility] OTOLARYNGOLOGY D EPT. [place], [place] [address] (Wo rk) Scheduled Procedures Name [...] d isease) - Primary Unspecified cardiovascular disease CAD (coronary artery disease) Coronary atherosclerosis of unspecified type of vessel, lower elwha or graft documented in this encounter Care Teams Vise Hand Relationship Specialty Start Date End Date Silas Wilhelm II, MD PCP - General 12/25/12 05/15/15 [address] [place] [address] documented as of this encounter
--- OUTSIDE RECORDS SUMMARY | 2021-10-21 08:03 | XMS_ITS | Encounter Summary ---
:1950 Author Organization [facility] [place] [address] Care Team Providers Name Role Phone Tara Joya MD Primary Care Provider [phone] Encounter Details Date Type Department Care Team Description 06/11/2015 Telephone Cardiology at [facility] Michael Washburn Jr., MD [address] [place] [address] [place] [address] [place], [place] [id number] (Wo rk) Social History Tobacco Use Types Packs/Day Years Used Date Former Smoker Cigarettes 1.5 40 Quit: 01/09/20 03 Smokeless Tobacco: Never Used Alcohol Use Standard Drinks/Week Comments No 0 (1 standard drink = 0.6 oz pure alcoho l) Sex Assigned at Date Recorded Not on file documented as of this encounter Miscellaneous Notes Telephone Encounter - Bettina Keller - 06/11/2015 1:54 PM EDT Left message to retn call for 1 yr f/u documented in this encounter Plan of Treatment Upcoming Encounters Date Type Specialty Care Team Description 10/21/2021 Infusion Hematology and Oncology 11/09/2021 Office Visit Hematology and Oncology Alhaji Ritchie MD [facility] DR ONCOLOGY DEPT. [place], [place] [address] (Wo rk) 11/09/2021 Infusion Hematology and Oncology 12/10/2021 Office Visit Dermatology Silas Walters MD [address] [facility] [address] DERMATOLOGY [place], [place] [address] (Wo rk) 09/19/2039 Hospital Encounter Surgery Osman Barnett MD [facility] OTOLARYNGOLOGY [place]ene EPT. [place], [place] [address] (Wo rk) Scheduled Procedures Name [...] on filedocumented in this encounter Care Teams Geometry Teacher Relationship Specialty Start Date End Date Tara Joya MD PCP - General Family Medicine 05/16/[address] [place] [address] documented as of this encounter
--- OUTSIDE RECORDS SUMMARY | 2021-10-21 08:03 | XMS_ITS | Encounter Summary ---
:1950 Author Organization [facility] [place] [address] Care Team Providers Name Role Phone Melonie CABELLO MD, Charles J Primary Care Provider [phone] Reason for Visit Reason Comments Skin Check Encounter Details Date Type Department Care Team Description 01/22/2014 [facility] [place] (act inic keratosis) (Primary Dx); Nona ROMERO Basal cell carcinoma; [address] [facility] Basal cell cancer [address] DERMATOLOGY [place], [place] [phone] Social History Tobacco Use Types Packs/Day Years Used Date Former Smoker Cigarettes 1.5 40 Quit: 01/09/20 03 Smokeless Tobacco: Never Used Sex Assigned at Date Recorded Not on file documented as of this encounter Patient Instructions Patient InstructionsVanessa Smith LPN - 01/22/2014 2:28 PM EST Images from the original note were not included. [facility] Learning About Basal Cell Skin Cancer Your Care Instructions Basal cell skin cancer (carcinoma) is a type of skin cancer. It most often appears on areas of the body that have been exposed to the sun. These areas include the head, face, neck, back, chest, or shoulders. The nose is the most common site. This cancer grows slowly and does not usually spread, or metastasize, to other parts of the body. Itis almost always cured when it is found early and treated. This skin cancer is usually caused by too much sun. Using tanning beds or sunlamps can also cause it. What are the symptoms? Signs of basal cell carcinoma include: ?? Any firm, pearly bump with tiny blood vessels that look spidery. ?? Any red, tender, flat spot that bleeds easily. ?? Any small, fleshy bump with a smooth, pearly appearance. It may have a sunken center. ?? Any smooth, shiny bump that may look like a mole or cyst. ?? Any patch of skin, especially on the face, that looks like a scar and is firm to the touch. ?? Any bump that itches, bleeds, crusts over, and then repeats the cycle and has not healed in a fewweeks. ?? Any change in the size, shape, or color of a mole or a skin growth. How is it treated? Your doctor will want to remove all of the cancer. There are several ways to remove it. It depends on how big it is, where it is on your body, and your age and overall health. Treatment options include: ?? Surgery to cut out the cancer. ?? Mohs micrographic surgery. This surgery removes the skin cancer one layer at a time, checking each layer for cancer cells right after it is removed. ?? Curettage and electrosurgery. Curettage uses a spoon-shaped instrument (curette) to scrape off the skin cancer, and electrosurgery controls the bleeding and destroys any remaining cancer cells. ?? Cryosurgery. Cryosurgery destroys the skin cancer by freezing it with liquid nitrogen. ?? Radiation therapy. Radiation therapy uses X-rays or other types of radiation to kill cancer cells. It may be done if surgery isn't an option. Other treatment options include chemotherapy cream and photodynamic therapy. If your doctor removes the cancer, he or she will send it to a lab. The lab makes sure it is a basalcell cancer and that it all was removed. If cancer is still there, you may need more treatment. How can you prevent it? ?? Always wear a wide-brimmed hat and long sleeves and pants when you are outdoors. ?? Avoid the sun between 10 a.m. and 4 p.m., which is the peak time for UV rays. ?? Always wear sunscreen on exposed skin. Make sure the sunscreen blocks ultraviolet rays (both UVA and UVB) and has a sun protection factor (SPF) of at least 15. Use it every day, even when it is cloudy. Some doctors may recommend a higher SPF, such as 30. ?? Do not use tanning booths or sunlamps. ?? Use lip balm or cream that has sun protection factor (SPF) to protect your lips from getting sunburned or getting cold sores. ?? Wear sunglasses that block UV rays. When should you call for help? Watch closely for changes in your health, and be sure to contact your doctor if: ?? You see a change in your skin, such as a growth or mole that: ?? Grows bigger. This may happen slowly. ?? Changes color. ?? Changes shape. ?? Starts to bleed easily. Follow-up care is a mcneal part of your treatment and safety. Be sure to make and go to all appointments, and call your doctor if you are having problems. It's also a good idea to know your test results and keep a list of the medicines you take. Where can you learn more? Visit our health information library at [email or web address] You can also view health information on [employer], your personal patient account. Log in or sign up today. Enter V456 in the search box to learn more about Learning About Basal Cell Skin Cancer. ?? [id number] [employer]. Care instructions adapted under license by [facility]. This care instruction is for use with your licensed healthcare professional. If you have questionsabout a medical condition or this instruction, always ask your healthcare professional. [employer] disclaims any warranty or liability for your use of this information. Content Version: 9.9.153951; Last Revised: October 24, 2012 documented in this encounter Progress Notes Silas Walters MD - 01/22/2014 2:47 PM EST Problem: Actinic check. Ward follows up for a repeat skin check, referred back to see me by Dr. Wilhelm. He is red haired, very fair skinned, and has had a lot of sun exposure over the years. I last saw him in 2006 and treated 10 actinics and had recommended yearly repeat skin checks. Physical examination reveals a pleasant, 63-year-old gentleman who has 15 actinics present on the upper chest, face, arms, and forearms, and a pearly papule present at the left antecubital fossa concerning for BCCA versus SCCA. Careful examination of the head and neck, chest, back, hands, arms, and forearms reveals no pigmented lesions of concern and no other skin lesions of concern. He has a number of seborrheic keratoses present on his back. His facial skin is relatively spared and free today of actinic keratoses. Assessment and Plan: 1. Actinic keratoses. a. LN2 times two applied to each of 15 sites. b. I recommended I see him again in another year for repeat check. 2. Probable BCCA, left antecubital fossa. a. After obtaining informed patient consent, the site was anesthetized and removed with light shave C and D. b. Triple antibiotic ointment and Band-Aid placed. Wound care instructions and supplies given. c. After curettage, the site measured 8 mm in diameter. d. Return to clinic in another year for repeat check. COPY: Silas Wilhelm M.D. documented in this encounter Plan of Treatment Upcoming Encounters Date Type Specialty Care Team Description 10/21/2021 Infusion Hematology and Oncology 11/09/2021 Office Visit Hematology and Oncology Alhaji Ritchie MD [facility] DR ONCOLOGY DEPT. [place], [place] [address] (Jin carson) 11/09/2021 Infusion Hematology and Oncology 12/10/2021 Office Visit Dermatology Silas Walters MD [address] [place] [address] DERMATOLOGY [place], [place] [address] (Jin carson) 09/19/2039 Hospital Encounter Surgery Osman Barnett MD [facility] OTOLARYNGOLOGY D EPT. [place], [place] [address] (Jin carson) Scheduled Procedures Name [...] encounter Visit Diagnoses Diagnosis AK (actinic keratosis) - Primary Actinic keratosis Basal cell carcinoma Basal cell carcinoma of skin, site unspe cified Basal cell cancer Basal cell carcinoma of skin, site unspe cified documented in this encounter Care Teams Retinal Surgeon Relationship Specialty Start Date End Date Silas Wilhelm II, MD PCP - General 12/25/12 05/15/15 [address] [place] [address] documented as of this encounter
--- OUTSIDE RECORDS SUMMARY | 2021-10-21 08:03 | XMS_ITS | Encounter Summary ---
:1950 Author Organization [facility] [place] [address] Care Team Providers Name Role Phone Tara Joya MD Primary Care Provider [phone] Reason for Visit Reason Comments Follow-up Skin Check Consultation (Routine) - Closed Specialty Diagnoses / Procedures Referred By Contact Refer red To Contact Dermatology Diagnoses actinic keratosis Tara Joya, [facility] Dermatology [address] [facility] [address] [place] [address] [place] [address] Referral ID Status Reason Start Date Expiration Date Visits V isits Requested Authorized [id number] Closed Consult, 08/24/2017 08/24/2018 1 1 [facility] Encounter Details Date Type Department Care Team Description 11/01/2017 Office Visit Dermatology at Silas Walters, History of basal cell carcinoma; oNna ROMERO [place] (actinic keratosis) [address] [facility] [address] [facility] [address] DERMATOLOGY [place], [place] [phone] Social History Tobacco Use Types Packs/Day Years Used Date Former Smoker Cigarettes 1.5 40 Quit: 01/09/20 03 Smokeless Tobacco: Never Used Alcohol Use Standard Drinks/Week Comments No 0 (1 standard drink = 0.6 oz pure alcoho l) Sex Assigned at Date Recorded Not on file documented as of this encounter Progress Notes Silas Walters MD - 11/01/2017 3:30 PM EDT Problem: 1. Actinic check 2. History BCCA left antecubital fossa January 2014 Ward follows up after last seeing me some 3 years ago. Somehow we neglected to give him a follow-up appointment for a year. He has some new lesions of concern and states that his new PCP in Dr. Wilhelm's office in [place] has removed several skin lesions of concern apparently one on his back. He states that he he had some nonmelanoma skin cancers removed by her. Physical examination reveals a pleasant 66-year-old gentleman who has actinic keratoses in the dorsal hands forearms on the left postauricular neck, he has no other lesions of particular concern. Thereis no evidence of any malignant lesions on careful examination today of the scalp the face the neck the chest the back the hands the arms and the forearms. Assessment plan: Actinic keratoses 1. LN 2 x 2 applied today to each of 8 sites 2. Patient reassured about remainder of benign skin examination 3. Return to clinic in 1 year for repeat check, appointment was made today. History of non-melanoma cutaneous malignancies 1. Benign examination today 2. Follow-up in 1 year Cc: Tara Joya MD documented in this encounter Plan of Treatment Upcoming Encounters Date Type Specialty Care Team Description 10/21/2021 Infusion Hematology and Oncology 11/09/2021 Office Visit Hematology and Oncology Alhaji Ritchie MD [facility] DR ONCOLOGY DEPT. [place], [place] [address] (Jin carson) 11/09/2021 Infusion Hematology and Oncology 12/10/2021 Office Visit Dermatology Silas Walters MD [address] [place] [address] DERMATOLOGY [place], [place] [address] (Jin carson) 09/19/2039 Hospital Encounter Surgery Osman Barnett MD [facility] OTOLARYNGOLOGY D EPT. [place], [place] [address] (Jin carson) Scheduled Procedures Name [...] keratosis documented in this encounter Care Teams Submarine Diver Relationship Specialty Start Date End Date Tara Joya MD PCP - General Family Medicine 05/16/[address] [place] [address] documented as of this encounter
--- OUTSIDE RECORDS SUMMARY | 2021-10-21 08:03 | XMS_ITS | Encounter Summary ---
:1950 Author Organization [facility] [place] [address] Care Team Providers Name Role Phone Melonie CABELLO MD, Silas Joyce Primary Care Provider [phone] Reason for Visit Reason Comments Follow-up MIBI about 2 weeks ago; had had pain in R. wrist, which was same as previously when had stent pl acement in 2001 Encounter Details Date Type Department Care Team Description 01/08/2013 Follow-Up [facility] Michael Washburn Jr., Lamin Sharma; [facility] CAD (coronary artery disease) [address] [facility] [place] [address] [place] [address] [phone] (Wo rk) Social History Tobacco Use Types Packs/Day Years Used Date Former Smoker Cigarettes 1.5 40 Quit: 01/09/20 03 Smokeless Tobacco: Never Used Sex Assigned at Date Recorded Not on file documented as of this encounter Last Filed Vital Signs Vital Sign Reading Time Taken Comments Blood Pressure 120/64 01/08/2013 11:36 AM EDT Pulse 70 01/08/2013 11:36 AM EDT regular Temperature - - Respiratory Rate - - Oxygen Saturation - - Inhaled Oxygen Concentration - - Weight 82.6 kg (182 lb) 01/08/2013 11:36 AM EDT Height 177.8 cm (5' 10) 01/08/2013 11:36 AM EDT Body Mass Index 26.11 01/08/2013 11:36 AM EDT documented in this encounter Progress Notes Michael Washburn Jr., MD - 01/08/2013 12:03 PM EDT Subjective: Patient ID: Ward Sierra is a 62 y.o. male. Chief Complaint Patient presents with ??? Follow-up MIBI about 2 weeks ago; had had pain in R. wrist, which was same as previously when had stent placement in 2001 HPI I had last seen him in 2003. He had no chest pain or arm pain (his anginal equivalent) until last month when hiking in [place]. He tried going up a steep hill in hot and humid weather and developed fatigue and left arm pain. It relieved with rest. He has not felt it with other activities. MIBI isas below. Review of Systems no dyspnea, cough, fever Allergies Allergen Reactions ??? Penicillins rash ??? Codeine Phosphate Rash Current Outpatient Prescriptions Medication Sig Dispense Refill ??? atorvastatin (LIPITOR) 20 mg tablet Take 20 mg by mouth daily. ??? fenofibrate (TRICOR) 145 mg tablet Take 145 mg by mouth daily. ??? metoprolol succinate (TOPROL-XL) 25 mg 24 hr tablet Take 25 mg by mouth daily. ??? ARIPiprazole (ABILIFY) [...] stent to mid CCX, no other CAD ??? Hyperlipemia ??? Bipolar affective disorder ??? BPH (benign prostatic hyperplasia) ??? Psoriasis ??? H/O drug abuse ??? Hepatitis C Treated, PCR negative ??? Basal cell cancer ??? Hypertriglyceridemia Objective: Physical Exam BP 120/64 Pulse 70 Ht 177.8 cm (5' 10) Wt 82.555 kg (182 lb) BMI 26.11 kg/m2 NAD No JVD/HJR Chest clear Cor RR, no murmur Abd benign Ext no edema MIBI 12/2012 Max Exercise: 7:30, 1:30 Stage III Stevie 9 METS Max HR: 125< 85 % PMR(134) Max BP: 160/[address] change: none Reason for Termination: slight arm pain, fatigue Imaging: Questionable small apical inferior lateral defect EF 62 % Results for WARD SIERRA ( ) as of 01/08/2013 18:58 Ref. Range 11/13/2012 00:00 Chol, Total No range found 177 HDL No range found 29 Triglycerides No range found 400 LDL Cholesterol No range found 68 Assessment and Plan: Probable angina but only small ischemia at stage III on MIBI-will continue medical management unlesssymptoms interfere with usual activities. Increase metoprolol to 50mg. He will be hiking more with the coming hunting season. Lipids- excellent LDL, poor TG/HDL- continue to work on diet and continue current meds Follow up 6 weeks documented in this encounter Plan of Treatment Upcoming Encounters Date Type Specialty Care Team Description 10/21/2021 Infusion Hematology and Oncology 11/09/2021 Office Visit Hematology and Oncology Alhaji Ritchie MD [facility] DR ONCOLOGY DEPT. [place], [place] [address] (Jin carson) 11/09/2021 Infusion Hematology and Oncology 12/10/2021 Office Visit Dermatology Silas Walters MD [address] [place] [address] DERMATOLOGY [place], [place] [address] (Jin carson) 09/19/2039 Hospital Encounter Surgery Osman Barnett MD [facility] OTOLARYNGOLOGY D EPT. [place], [place] [address] (Jin carson) Scheduled Procedures Name [...] as of this encounter Visit Diagnoses Diagnosis Hepatitis C Unspecified viral hepatitis C without he patic coma CAD (coronary artery disease) Coronary atherosclerosis of unspecified type of vessel, [place] or graft documented in this encounter Care Teams Grain Inspector Relationship Specialty Start Date End Date Silas Wilhelm II, MD PCP - General 12/25/[address] [place] [id number] documented as of this encounter
--- OUTSIDE RECORDS SUMMARY | 2021-10-21 08:03 | XMS_ITS | Encounter Summary ---
:1950 Author Organization [facility] [place] [address] Care Team Providers Name Role Phone Tara Joya MD Primary Care Provider Reason for Visit Reason Onset Date Comments Questions 05/22/2015 Encounter Details Date Type Department Care Team Description 05/22/2015 Telephone Orthopaedics at [facility] Rey Santos, DPM Questions [facility] [place] [address] ORTHOPAEDIC SURGERY [phone] [place], [place] [address] (Wo rk) Social History Tobacco Use Types Packs/Day Years Used Date Former Smoker Cigarettes 1.5 40 Quit: 01/09/20 03 Smokeless Tobacco: Never Used Alcohol Use Standard Drinks/Week Comments No 0 (1 standard drink = 0.6 oz pure alcoho l) Sex Assigned at Date Recorded Not on file documented as of this encounter Miscellaneous Notes Telephone Encounter - Mikael Borja - 05/27/2015 12:59 PM EST Patient will call us back to schedule a follow up with Dr. Santos, he has to check with his who and try to coordinate with her first. Telephone Encounter - Mikael Borja - 05/27/2015 12:52 PM EST Called patient to make appointment per note from Dr. Santos. He would like to come in sooner because his boot is not working. He can wear the boot when it fits with his lifestyle. If he is not able to wear it much and he is having issues, he can f/u and we can get him into PT if he is not already in PT. Telephone Encounter - Mikael Borja - 05/27/2015 12:42 PM EST Patient is calling again regarding a message he left last week. Please call him to discuss at the below questions. Telephone Encounter - Chuy Montanez - 05/22/2015 3:57 PM EST Who is calling: Ward Was this a new injury? no What is the question: Ward is calling. The boot has been extremely hampering and it is causing issues due to the weather and his lifestyle of walking. Is there any way we can modify his boot protocol or recommend a less obtrusive boot to help him walk before he follows up with us? Best number to reach the caller: [phone] documented in this encounter Plan of Treatment Upcoming Encounters Date Type Specialty Care Team Description 10/21/2021 Infusion Hematology and Oncology 11/09/2021 Office Visit Hematology and Oncology Alhaji Ritchie MD [facility] ONCOLOGY DEPT. [place], [place] [address] (Jin carson) 11/09/2021 Infusion Hematology and Oncology 12/10/2021 Office Visit Dermatology Silas Walters MD [address] [place] [address] DERMATOLOGY [place], [place] [address] (Jin carson) 09/19/2039 Hospital Encounter Surgery Osman Barnett MD [facility] OTOLARYNGOLOGY D EPT. [place], [place] [address] (Wo rk) Scheduled Procedures Name [...] on filedocumented in this encounter Care Teams Biomedical Engineering Aide Relationship Specialty Start Date End Date Tara Joya MD PCP - General Family Medicine 05/16/[address] [place] [address] documented as of this encounter
--- OUTSIDE RECORDS SUMMARY | 2021-10-21 08:03 | XMS_ITS | Encounter Summary ---
:1950 Author Organization [facility] [place] [address] Care Team Providers Name Role Phone Melonie CABELLO MD, Silas Joyce Primary Care Provider [phone] Encounter Details Date Type Department Care Team Description 01/03/2013 Abstract [facility] Michael Washburn Jr., [place] D (coronary artery [facility] MD disease) (Primary Dx) [address] [facility] [place] [address] [place] [address] [phone] (Wo rk) Social History Tobacco Use Types Packs/Day Years Used Date Never Assessed Sex Assigned at Date Recorded Not on file documented as of this encounter Plan of Treatment Upcoming Encounters Date Type Specialty Care Team Description 10/21/2021 Infusion Hematology and Oncology 11/09/2021 Office Visit Hematology and Oncology Alhaji Ritchie MD [facility] DR ONCOLOGY DEPT. [place], [place] [address] (Wo rk) 11/09/2021 Infusion Hematology and Oncology 12/10/2021 Office Visit Dermatology Silas Walters MD [address] [facility] DERMATOLOGY [place], [place] [address] (Wo rk) 09/19/2039 Hospital Encounter Surgery Osman Branett MD [facility] OTOLARYNGOLOGY [place]ene EPT. [place], [place] [address] (Wo rk) Scheduled Procedures Name [...] as of this encounter Visit Diagnoses Diagnosis CAD (coronary artery disease) - Primary Coronary atherosclerosis of unspecified type of vessel, [place] or graft documented in this encounter Care Teams Print Decorator Relationship Specialty Start Date End Date Silas Wilhelm II, MD PCP - General 12/25/12 05/15/[address] [place] [address] documented as of this encounter
--- OUTSIDE RECORDS SUMMARY | 2021-10-21 08:03 | XMS_ITS | Encounter Summary ---
:1950 Author Organization [facility] Address [address] [place] [address] Care Team Providers Name Role Phone Melonie CABELLO MD, Silas Joyce Primary Care Provider Encounter Details Date Type Department Care Team Description 12/16/2014 Hospital Encounter Radiology Library at [facility], [place] [address] Social History Tobacco Use Types Packs/Day [...] [facility] DR ONCOLOGY DEPT. [place], [place] [address] (Wo rk) 11/09/2021 Infusion Hematology and Oncology 12/10/2021 Office Visit Dermatology Silas Walters MD [address] [facility] [address] DERMATOLOGY [place], [place] [address] (Wo rk) 09/19/2039 Hospital Encounter Surgery Osman Barnett MD [facility] OTOLARYNGOLOGY D EPT. [place], [place] [address] (Wo rk) Scheduled Procedures Name [...] Associated Diagnosis Comme nts FILM LIBRARY Routine 12/16/2014 12:00 AM Pain Results for this STORAGE ONLY DX EDT procedure ar e in ANKLE the results section. documented in this encounter Results Film Library- Storage only DX Ankle (12/16/2014 12:00 AM EDT) Specimen (Source) Anatomical Location Collection Method / Collectio n Time Received Time / Laterality Volume Narrative [facility] - 04/08/2015 8:59 AM EST See PACS for result report. [facility] ORDERABLES Performing Organization Address City/State/ZIP Code Phon e Number [facility] [place], [place] documented in this encounter Visit Diagnoses Diagnosis Pain Generalized pain documented in this encounter Care Teams Novelty Chain Maker Relationship Specialty Start Date End Date Silas Wilhelm II, MD PCP - General 12/25/12 05/15/15 [address] [place] [address] documented as of this encounter
--- OUTSIDE RECORDS SUMMARY | 2021-10-21 08:03 | XMS_ITS | Encounter Summary ---
:1950 Author Organization [facility] [place] [address] Care Team Providers Name Role Phone Melonie CABELLO MD, Silas Joyce Primary Care Provider [phone] Encounter Details Date Type Department Care Team Description 11/07/2014 External Results Cardiology at [facility], [address] [facility] [place] [address] Social History Tobacco Use [...] [facility] DR ONCOLOGY DEPT. [place], [place] [address] (Jin rk) 11/09/2021 Infusion Hematology and Oncology 12/10/2021 Office Visit Dermatology Silas Walters MD [address] [facility] DERMATOLOGY [place], [place] [address] (Wo rk) 09/19/2039 Hospital Encounter Surgery Osman Barnett MD [facility] OTOLARYNGOLOGY Sharlene EPT. [place], [place] [address] (Jin carson) Scheduled Procedures Name [...] Diagnosis Comme nts EXTERNAL LAB RESULTS Routine 10/25/2013 Results for this procedure are i n the results section . documented in this encounter Results External Lab Results (10/25/2013) P athologist Signature Chol, Total 185 mg/dL HDL 27 md/dL Triglycerides 470 mg/dL Historical Provider CHEMISTRY ORDERABLES documented in this encounter Visit Diagnoses Not on filedocumented in this encounter Care Teams Electrician Third Relationship Specialty Start Date End Date Silas Wilhelm II, MD PCP - General 12/25/12 05/15/15 [address] [place] [address] documented as of this encounter
--- OUTSIDE RECORDS SUMMARY | 2021-10-21 08:03 | XMS_ITS | Encounter Summary ---
:1950 Author Organization [facility] [place] [address] Care Team Providers Name Role Phone Tara Joya MD Primary Care Provider [phone] Encounter Details Date Type Department Care Team Description 06/02/2015 Telephone Orthopaedics at [facility] Crissy Kenny, RN [facility] [place] [address] Social History Tobacco Use Types Packs/Day Years Used Date Former Smoker Cigarettes 1.5 40 Quit: 01/09/20 03 Smokeless Tobacco: Never Used Alcohol Use Standard Drinks/Week Comments No 0 (1 standard drink = 0.6 oz pure alcoho l) Sex Assigned at Date Recorded Not on file documented as of this encounter Miscellaneous Notes Telephone Encounter - Crissy Kenny, RN - 06/02/2015 9:11 AM EDT Patient seen 04/08/15 with JACQUE Chris. Patient had related some concerns with his boot. Dr Santos indicates he can wear boot when it fits his lifestyle but if issues continue he should have follow up with Dr Santos . Last communication indicates he was checking with his regarding timing of when he can get her. Plan at that time(04/08/15) Assessment/Plan: Ward Santamaria is a 64 y.o. [...] he is in agreement with this plan. Message left of voice mail to arrange follow up with Dr Santos if his concerns continue documented in this encounter Plan of Treatment Upcoming Encounters Date Type Specialty Care Team Description 10/21/2021 Infusion Hematology and Oncology 11/09/2021 Office Visit Hematology and Oncology Alhaji Ritchie MD [facility] DR ONCOLOGY DEPT. [place], [place] [address] (Wo rk) 11/09/2021 Infusion Hematology and Oncology 12/10/2021 Office Visit Dermatology Silas Walters MD [address] [facility] DERMATOLOGY [place], [place] [address] (Wo rk) 09/19/2039 Hospital Encounter Surgery Osman Barnett MD [facility] OTOLARYNGOLOGY D EPT. [place], [place] [address] (Wo rk) Scheduled Procedures Name [...] on filedocumented in this encounter Care Teams [employer] Sweeper Operator Relationship Specialty Start Date End Date Tara Joya MD PCP - General Family Medicine 05/16/[address] [place] [address] documented as of this encounter
[2021-10-21 08:11] LABS: Abs Immature Grans 0.21 10^3/uL (0.0-0.06); Basophils % 0.5; Eosinophils % 19.7; HCT 33.6 % (40.0-50.0); HGB 11.2 g/dL (13.5-17.5); Immature Grans % 1.1; MCH 28.7 pg (27.0-33.0); MCHC 33.3 % (32.0-36.0); MCV 86 fL (80-95); MPV 8.7 fL (8.0-11.0); Neutrophils % 62.7; Nucleated RBC 0.1 % (0.0-0.3); Platelet Count 270 10^3/uL (130-400); RDW 13.2 % (11.8-14.1); RDW-SD 41.2 fL; WBC 18.36 10^3/uL (4.4-10.8)
[2021-10-21 08:19] LABS: Absolute Basophil Count 0.09 10^3/uL (0.0-0.2); Absolute Eosinophil Count 3.62 10^3/uL (0.0-0.7); Absolute Lymphocyte Count 1.47 10^3/uL (1.2-3.4); Absolute Monocyte Count 1.47 10^3/uL (0.1-0.8); Absolute Neutrophil Count 11.51 10^3/uL (1.2-6.7)
[2021-10-21 08:35] LABS: ALT 16 U/L (16-63); AST 14 U/L (15-37); Albumin 3.1 g/dL (3.4-5.0); Alkaline Phosphatase 74 U/L (46-116); Anion Gap 4.4 mmol/L (3-11); BUN 30 mg/dL (7-18); Bilirubin, Total 0.3 mg/dL (0.2-1.0); CO2 28.6 mmol/L (21.0-32.0); CREATININE 1.4 mg/dL (0.70-1.30); Calcium 10.4 mg/dL (8.5-10.1); Chloride 100 mmol/L (98-107); Estimated GFR 50.25 (mL/min/1.73m2); FREE T4 0.86 ng/dL (0.76-1.46); Glucose 135 mg/dL (74-106); Potassium 4.1 mmol/L (3.5-5.1); Sodium 133 mmol/L (136-145); Total Protein 7.5 g/dL (6.4-8.2)
[2021-10-21 08:40] LABS: Diff Comment Agrees w/ Instrument; RBC Morphology Normal
[2021-11-09 09:58] LABS: Abs Immature Grans 0.13 10^3/uL (0.0-0.06); Absolute Basophil Count 0.08 10^3/uL (0.0-0.2); Absolute Eosinophil Count 0.47 10^3/uL (0.0-0.7); Absolute Lymphocyte Count 1.11 10^3/uL (1.2-3.4); Basophils % 0.7; Eosinophils % 4.2; HCT 35.5 % (40.0-50.0); HGB 11.4 g/dL (13.5-17.5); Immature Grans % 1.2; Lymphocytes % 9.9; MCHC 32.1 % (32.0-36.0); MCV 87 fL (80-95); MPV 8.5 fL (8.0-11.0); Monocytes % 7.7; Neutrophils % 76.3; Platelet Count 290 10^3/uL (130-400); RBC 4.07 10^6/uL (4.36-5.78); WBC 11.24 10^3/uL (4.4-10.8)
[2021-11-09 10:00] LABS: Absolute Monocyte Count 0.87 10^3/uL (0.1-0.8); Absolute Neutrophil Count 8.58 10^3/uL (1.2-6.7)
[2021-11-09 10:27] LABS: ALT 19 U/L (16-63); AST 16 U/L (15-37); Albumin 3.1 g/dL (3.4-5.0); Alkaline Phosphatase 84 U/L (46-116); Anion Gap 6.9 mmol/L (3-11); BUN 26 mg/dL (7-18); Bilirubin, Total 0.3 mg/dL (0.2-1.0); CO2 28.1 mmol/L (21.0-32.0); CREATININE 1.4 mg/dL (0.70-1.30); Calcium 8.9 mg/dL (8.5-10.1); Chloride 102 mmol/L (98-107); Estimated GFR 50.25 (mL/min/1.73m2); FREE T4 0.94 ng/dL (0.76-1.46); Glucose 153 mg/dL (74-106); Potassium 4.3 mmol/L (3.5-5.1); Sodium 137 mmol/L (136-145); TSH 3.51 uIU/mL (0.36-3.74); Total Protein 7.6 g/dL (6.4-8.2)
== END 2021-11-18 23:59 | disposition home or self-care (01) ==
LOC: INF 09:30
PROVIDERS: PCP Family Medicine; Visit Provider Internal Medicine Hematology & Oncology
DX: C44.229 Squamous cell carcinoma of skin of left ear and external auricular canal (principal); R63.4 Abnormal weight loss; R53.83 Other fatigue
CPT/HCPCS: 36415; 80053; 84439; 84443; 85025

== ENCOUNTER 2022-01-18 02:36 | Outpatient (RCR) | payer MEDICARE, SELFPAY ==
[2021-12-21 08:56] LABS: Abs Immature Grans 0.11 10^3/uL (0.0-0.06); Absolute Basophil Count 0.01 10^3/uL (0.0-0.2); Absolute Lymphocyte Count 0.88 10^3/uL (1.2-3.4); Absolute Neutrophil Count 8.22 10^3/uL (1.2-6.7); Basophils % 0.1; HCT 36.1 % (40.0-50.0); HGB 12.1 g/dL (13.5-17.5); Immature Grans % 1.1; Lymphocytes % 8.9; MCH 28.8 pg (27.0-33.0); MCHC 33.5 % (32.0-36.0); MCV 86 fL (80-95); MPV 8.8 fL (8.0-11.0); Monocytes % 7.1; Neutrophils % 82.8; Platelet Count 238 10^3/uL (130-400); RDW 14.8 % (11.8-14.1); RDW-SD 47.1 fL; WBC 9.92 10^3/uL (4.4-10.8)
[2021-12-21 09:22] LABS: ALT 22 U/L (16-63); AST 12 U/L (15-37); Albumin 3.6 g/dL (3.4-5.0); Alkaline Phosphatase 118 U/L (46-116); Anion Gap 10.7 mmol/L (3-11); BUN 26 mg/dL (7-18); Bilirubin, Total 0.4 mg/dL (0.2-1.0); CO2 24.3 mmol/L (21.0-32.0); CREATININE 1.3 mg/dL (0.70-1.30); Calcium 9.5 mg/dL (8.5-10.1); Chloride 100 mmol/L (98-107); FREE T4 0.72 ng/dL (0.76-1.46); Glucose 269 mg/dL (74-106); Potassium 4.4 mmol/L (3.5-5.1); Sodium 135 mmol/L (136-145); TSH 0.99 uIU/mL (0.36-3.74); Total Protein 7.3 g/dL (6.4-8.2)
[2022-01-18 10:36] LABS: Abs Immature Grans 0.17 10^3/uL (0.0-0.06); Absolute Basophil Count 0.02 10^3/uL (0.0-0.2); Absolute Monocyte Count 0.11 10^3/uL (0.1-0.8); Absolute Neutrophil Count 6.97 10^3/uL (1.2-6.7); Basophils % 0.3; HCT 39.7 % (40.0-50.0); HGB 13.7 g/dL (13.5-17.5); Immature Grans % 2.2; Lymphocytes % 6.4; MCH 29.8 pg (27.0-33.0); MCHC 34.5 % (32.0-36.0); MCV 87 fL (80-95); MPV 8.7 fL (8.0-11.0); Monocytes % 1.4; Neutrophils % 89.7; Platelet Count 239 10^3/uL (130-400); RBC 4.59 10^6/uL (4.36-5.78); RDW 13.9 % (11.8-14.1); RDW-SD 43.7 fL; WBC 7.77 10^3/uL (4.4-10.8)
[2022-01-18 11:07] LABS: ALT 17 U/L (16-63); AST 16 U/L (15-37); Albumin 3.8 g/dL (3.4-5.0); Alkaline Phosphatase 105 U/L (46-116); Anion Gap 8.9 mmol/L (3-11); BUN 23 mg/dL (7-18); Bilirubin, Total 0.4 mg/dL (0.2-1.0); CO2 25.1 mmol/L (21.0-32.0); CREATININE 1.3 mg/dL (0.70-1.30); Calcium 9.1 mg/dL (8.5-10.1); Chloride 102 mmol/L (98-107); Glucose 208 mg/dL (74-106); Potassium 4.2 mmol/L (3.5-5.1); Sodium 136 mmol/L (136-145); TSH 1.41 uIU/mL (0.36-3.74); Total Protein 7.5 g/dL (6.4-8.2)
== END 2022-01-18 23:59 | disposition home or self-care (01) ==
LOC: INF 02:36
PROVIDERS: PCP Family Medicine; Visit Provider Internal Medicine Hematology & Oncology
DX: R63.4 Abnormal weight loss (principal)
CPT/HCPCS: 36415; 80053; 84439; 84443; 85025

== ENCOUNTER 2022-04-12 09:15 | Outpatient (RCR) | payer MEDICARE, SELFPAY ==
[2022-03-24 09:54] LABS: Abs Immature Grans 0.14 10^3/uL (0.0-0.06); Absolute Basophil Count 0.02 10^3/uL (0.0-0.2); Absolute Lymphocyte Count 0.95 10^3/uL (1.2-3.4); Absolute Monocyte Count 0.61 10^3/uL (0.1-0.8); Absolute Neutrophil Count 8.09 10^3/uL (1.2-6.7); Basophils % 0.2; HCT 38.4 % (40.0-50.0); HGB 12.9 g/dL (13.5-17.5); Immature Grans % 1.4; Lymphocytes % 9.7; MCH 29.4 pg (27.0-33.0); MCHC 33.6 % (32.0-36.0); MCV 88 fL (80-95); MPV 8.6 fL (8.0-11.0); Monocytes % 6.2; Neutrophils % 82.5; Platelet Count 257 10^3/uL (130-400); RBC 4.39 10^6/uL (4.36-5.78); RDW 12.8 % (11.8-14.1); RDW-SD 41.2 fL; WBC 9.81 10^3/uL (4.4-10.8)
[2022-03-24 10:20] LABS: ALT 19 U/L (16-63); AST 15 U/L (15-37); Albumin 3.7 g/dL (3.4-5.0); Alkaline Phosphatase 105 U/L (46-116); Anion Gap 8.5 mmol/L (3-11); BUN 21 mg/dL (7-18); Bilirubin, Total 0.5 mg/dL (0.2-1.0); CO2 25.5 mmol/L (21.0-32.0); CREATININE 1.7 mg/dL (0.70-1.30); Calcium 9.1 mg/dL (8.5-10.1); Chloride 103 mmol/L (98-107); Estimated GFR 42.83 (mL/min/1.73m2); Glucose 199 mg/dL (74-106); Potassium 4.4 mmol/L (3.5-5.1); Sodium 137 mmol/L (136-145); Total Protein 7.8 g/dL (6.4-8.2)
[2022-04-12 09:21] LABS: Abs Immature Grans 0.11 10^3/uL (0.0-0.06); Absolute Basophil Count 0.03 10^3/uL (0.0-0.2); Absolute Lymphocyte Count 0.81 10^3/uL (1.2-3.4); Absolute Neutrophil Count 9.05 10^3/uL (1.2-6.7); Basophils % 0.3; HCT 37.8 % (40.0-50.0); HGB 12.9 g/dL (13.5-17.5); Lymphocytes % 7.6; MCH 29.9 pg (27.0-33.0); MCHC 34.1 % (32.0-36.0); MCV 88 fL (80-95); MPV 8.8 fL (8.0-11.0); Monocytes % 6.5; Neutrophils % 84.6; Platelet Count 244 10^3/uL (130-400); RBC 4.31 10^6/uL (4.36-5.78); RDW 12.7 % (11.8-14.1); RDW-SD 40.5 fL
[2022-04-12 09:51] LABS: ALT 20 U/L (16-63); AST 15 U/L (15-37); Albumin 3.6 g/dL (3.4-5.0); Alkaline Phosphatase 111 U/L (46-116); Anion Gap 10.6 mmol/L (3-11); BUN 22 mg/dL (7-18); Bilirubin, Total 0.4 mg/dL (0.2-1.0); CO2 24.4 mmol/L (21.0-32.0); CREATININE 1.4 mg/dL (0.70-1.30); Calcium 9.6 mg/dL (8.5-10.1); Chloride 103 mmol/L (98-107); Estimated GFR 54.07 (mL/min/1.73m2); FREE T4 0.75 ng/dL (0.76-1.46); Glucose 265 mg/dL (74-106); Potassium 4.2 mmol/L (3.5-5.1); Sodium 138 mmol/L (136-145); TSH 1.59 uIU/mL (0.36-3.74); Total Protein 7.6 g/dL (6.4-8.2)
[2022-04-12 10:41] LABS: Hemoglobin A1C 6.6 % (<5.7)
== END 2022-04-20 23:59 | disposition home or self-care (01) ==
LOC: INF 09:15
PROVIDERS: PCP Family Medicine; Visit Provider Internal Medicine Hematology & Oncology
DX: R63.4 Abnormal weight loss (principal); R73.9 Hyperglycemia, unspecified; C44.229 Squamous cell carcinoma of skin of left ear and external auricular canal; R53.83 Other fatigue; Z45.2 Encounter for adjustment and management of vascular access device
CPT/HCPCS: 36415; 80053; 83036; 84439; 84443; 85025

== ENCOUNTER 2022-05-03 00:42 | Outpatient (RCR) | payer MEDICARE, SELFPAY ==
[2022-05-03 09:50] LABS: Abs Immature Grans 0.21 10^3/uL (0.0-0.06); Absolute Basophil Count 0.03 10^3/uL (0.0-0.2); Absolute Lymphocyte Count 0.86 10^3/uL (1.2-3.4); Absolute Monocyte Count 0.71 10^3/uL (0.1-0.8); Basophils % 0.2; HCT 38.6 % (40.0-50.0); HGB 13.1 g/dL (13.5-17.5); Immature Grans % 1.5; Lymphocytes % 6.2; MCH 29.2 pg (27.0-33.0); MCHC 33.9 % (32.0-36.0); MCV 86 fL (80-95); MPV 8.8 fL (8.0-11.0); Monocytes % 5.1; Platelet Count 253 10^3/uL (130-400); RBC 4.49 10^6/uL (4.36-5.78); RDW 12.7 % (11.8-14.1); RDW-SD 39.8 fL; WBC 13.83 10^3/uL (4.4-10.8)
[2022-05-03 09:51] LABS: Absolute Neutrophil Count 12.03 10^3/uL (1.2-6.7)
[2022-05-03 10:14] LABS: ALT 20 U/L (16-63); AST 13 U/L (15-37); Albumin 3.7 g/dL (3.4-5.0); Alkaline Phosphatase 107 U/L (46-116); Anion Gap 8.2 mmol/L (3-11); BUN 22 mg/dL (7-18); Bilirubin, Total 0.4 mg/dL (0.2-1.0); CO2 26.8 mmol/L (21.0-32.0); CREATININE 1.3 mg/dL (0.70-1.30); Calcium 9.4 mg/dL (8.5-10.1); Chloride 100 mmol/L (98-107); Glucose 234 mg/dL (74-106); Potassium 3.9 mmol/L (3.5-5.1); Sodium 135 mmol/L (136-145); TSH 1.03 uIU/mL (0.36-3.74); Total Protein 7.4 g/dL (6.4-8.2)
== END 2022-05-18 23:59 | disposition home or self-care (01) ==
LOC: INF 00:42
PROVIDERS: PCP Family Medicine; Visit Provider Internal Medicine Hematology & Oncology
DX: C44.229 Squamous cell carcinoma of skin of left ear and external auricular canal (principal); R63.4 Abnormal weight loss; R53.83 Other fatigue
CPT/HCPCS: 36415; 80053; 84439; 84443; 85025

== ENCOUNTER 2022-06-14 02:13 | Outpatient (RCR) | payer MEDICARE, SELFPAY ==
[2022-05-24 12:28] LABS: Abs Immature Grans 0.13 10^3/uL (0.0-0.06); Absolute Basophil Count 0.02 10^3/uL (0.0-0.2); Absolute Lymphocyte Count 0.76 10^3/uL (1.2-3.4); Absolute Monocyte Count 0.47 10^3/uL (0.1-0.8); Absolute Neutrophil Count 10.29 10^3/uL (1.2-6.7); Basophils % 0.2; HCT 39.1 % (40.0-50.0); HGB 13.4 g/dL (13.5-17.5); Immature Grans % 1.1; Lymphocytes % 6.5; MCH 29.9 pg (27.0-33.0); MCHC 34.3 % (32.0-36.0); MCV 87 fL (80-95); MPV 8.9 fL (8.0-11.0); Neutrophils % 88.2; Platelet Count 227 10^3/uL (130-400); RBC 4.48 10^6/uL (4.36-5.78); RDW 13.2 % (11.8-14.1); RDW-SD 41.6 fL; WBC 11.67 10^3/uL (4.4-10.8)
[2022-05-24 12:59] LABS: ALT 21 U/L (16-63); AST 14 U/L (15-37); Albumin 3.8 g/dL (3.4-5.0); Alkaline Phosphatase 102 U/L (46-116); Anion Gap 10.1 mmol/L (3-11); BUN 18 mg/dL (7-18); Bilirubin, Total 0.5 mg/dL (0.2-1.0); CO2 24.9 mmol/L (21.0-32.0); CREATININE 1.2 mg/dL (0.70-1.30); Calcium 9.2 mg/dL (8.5-10.1); Chloride 103 mmol/L (98-107); Estimated GFR 65.06 (mL/min/1.73m2); FREE T4 0.69 ng/dL (0.76-1.46); Glucose 227 mg/dL (74-106); Potassium 4.1 mmol/L (3.5-5.1); Sodium 138 mmol/L (136-145); TSH 1.07 uIU/mL (0.36-3.74); Total Protein 7.3 g/dL (6.4-8.2)
[2022-06-14 09:32] LABS: Abs Immature Grans 0.15 10^3/uL (0.0-0.06); Absolute Basophil Count 0.01 10^3/uL (0.0-0.2); Absolute Monocyte Count 0.43 10^3/uL (0.1-0.8); Absolute Neutrophil Count 9.71 10^3/uL (1.2-6.7); Basophils % 0.1; HCT 38.4 % (40.0-50.0); HGB 13.4 g/dL (13.5-17.5); Immature Grans % 1.4; Lymphocytes % 6.4; MCHC 34.9 % (32.0-36.0); MCV 86 fL (80-95); MPV 8.9 fL (8.0-11.0); Monocytes % 3.9; Neutrophils % 88.2; Platelet Count 235 10^3/uL (130-400); RBC 4.47 10^6/uL (4.36-5.78); RDW 13.2 % (11.8-14.1); RDW-SD 40.8 fL; WBC 11.01 10^3/uL (4.4-10.8)
[2022-06-14 09:57] LABS: ALT 24 U/L (16-63); AST 12 U/L (15-37); Albumin 3.7 g/dL (3.4-5.0); Alkaline Phosphatase 89 U/L (46-116); Anion Gap 7.1 mmol/L (3-11); BUN 22 mg/dL (7-18); Bilirubin, Total 0.5 mg/dL (0.2-1.0); CO2 26.9 mmol/L (21.0-32.0); CREATININE 1.4 mg/dL (0.70-1.30); Calcium 9.6 mg/dL (8.5-10.1); Chloride 104 mmol/L (98-107); Estimated GFR 54.07 (mL/min/1.73m2); FREE T4 0.67 ng/dL (0.76-1.46); Glucose 229 mg/dL (74-106); Potassium 4.3 mmol/L (3.5-5.1); Sodium 138 mmol/L (136-145); TSH 1.18 uIU/mL (0.36-3.74); Total Protein 7.1 g/dL (6.4-8.2)
== END 2022-06-18 23:59 | disposition home or self-care (01) ==
LOC: INF 02:13
PROVIDERS: PCP Family Medicine; Visit Provider Internal Medicine Hematology & Oncology
DX: C44.229 Squamous cell carcinoma of skin of left ear and external auricular canal (principal); R63.4 Abnormal weight loss
CPT/HCPCS: 36415; 80053; 84439; 84443; 85025

== ENCOUNTER 2022-06-22 01:58 | Outpatient (CLI) | payer MEDICARE, SELFPAY ==
--- NOTE | 2022-06-22 | DI.CT_ITS ---
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 COMPARISON: CT CT CHEST W CONTRAST from 02/23/2022 FINDINGS: Pulmonary parenchyma: No consolidation. Mild interval decrease in size of bilateral pulmonary metasta ses. Left basilar mass measures 14 millimeters. No right basilar mass is measured at 4.2 x 2.7 cm. The right perihilar mass is measured at 2.6 x 2 cm. No new masses. Tracheobronchial tree: No bronchiectasis or mucous plugging. Mediastinum and [place]: No dominant adenopathy or fluid collection. Pleura: No effusion or pneumothorax. Heart: Dilatation of the left atrium and left ventricle. Moderate to severe coronary artery calcific ations are seen. Aorta: Thoracic aorta non-dilated. Upper abdomen: Unremarkable. Bones: Milddegenerative changes. Soft tissues: Unremarkable. IMPRESSION: Mild interval decrease in size of bilateral metastatic pulmonary nodules. RADIATION DOSE DELIVERED: 482mGy.cm Total DLP DATA REPOSITORY: All CT scans at this facility are submitted to the National Radiology Data Registry (NRDR) Dose Index Registry (DIR) with the [employer] (A[employer]). RADIATION OPTIMIZATION: All CT scans at this facility use at least one of these dose optimization te chniques: automated exposure control; mA and/or kV adjustment per patient size (includes targeted exa ms where dose is matched to clinical indication); or iterative reconstruction.
[2022-06-22] MEDS: Normal Saline - Diluent 50 ML VIAL IJ (13:44)
[2022-06-22] MEDS: Omnipaque 350 MG/ML 500 ML BTL-Imaging package IJ (13:44)
== END 2022-06-22 02:18 ==
LOC: DI 01:58
PROVIDERS: PCP Family Medicine; Visit Provider Internal Medicine Hematology & Oncology
DX: C44.229 Squamous cell carcinoma of skin of left ear and external auricular canal (principal); C78.01 Secondary malignant neoplasm of right lung; C78.02 Secondary malignant neoplasm of left lung
CPT/HCPCS: 71260

== ENCOUNTER 2022-07-05 01:28 | Outpatient (RCR) | payer MEDICARE, SELFPAY ==
[2022-07-05 09:41] LABS: Abs Immature Grans 0.11 10^3/uL (0.0-0.06); Absolute Basophil Count 0.02 10^3/uL (0.0-0.2); Absolute Lymphocyte Count 0.99 10^3/uL (1.2-3.4); Absolute Monocyte Count 0.64 10^3/uL (0.1-0.8); Basophils % 0.2; HCT 38.4 % (40.0-50.0); HGB 13.6 g/dL (13.5-17.5); Immature Grans % 0.9; Lymphocytes % 8.5; MCH 30.4 pg (27.0-33.0); MCHC 35.4 % (32.0-36.0); MCV 86 fL (80-95); MPV 9.2 fL (8.0-11.0); Monocytes % 5.5; Neutrophils % 84.9; Platelet Count 244 10^3/uL (130-400); RBC 4.47 10^6/uL (4.36-5.78); RDW-SD 40.7 fL
[2022-07-05 09:42] LABS: Absolute Neutrophil Count 9.85 10^3/uL (1.2-6.7)
[2022-07-05 10:04] LABS: ALT 20 U/L (16-63); AST 16 U/L (15-37); Albumin 3.9 g/dL (3.4-5.0); Alkaline Phosphatase 79 U/L (46-116); Anion Gap 8.6 mmol/L (3-11); BUN 21 mg/dL (7-18); Bilirubin, Total 0.5 mg/dL (0.2-1.0); CO2 26.4 mmol/L (21.0-32.0); CREATININE 1.2 mg/dL (0.70-1.30); Calcium 9.7 mg/dL (8.5-10.1); Chloride 106 mmol/L (98-107); Estimated GFR 65.06 (mL/min/1.73m2); FREE T4 0.71 ng/dL (0.76-1.46); Glucose 225 mg/dL (74-106); Potassium 3.9 mmol/L (3.5-5.1); Sodium 141 mmol/L (136-145); TSH 1.89 uIU/mL (0.36-3.74); Total Protein 7.3 g/dL (6.4-8.2)
== END 2022-07-18 23:59 | disposition home or self-care (01) ==
LOC: INF 01:28
PROVIDERS: PCP Family Medicine; Visit Provider Internal Medicine Hematology & Oncology
DX: R63.4 Abnormal weight loss (principal); C44.229 Squamous cell carcinoma of skin of left ear and external auricular canal
CPT/HCPCS: 36415; 80053; 84153; 84439; 84443; 85025

== ENCOUNTER 2022-08-17 03:23 | Outpatient (RCR) | payer MEDICARE, SELFPAY ==
[2022-07-26 12:31] LABS: Abs Immature Grans 0.07 10^3/uL (0.0-0.06); Absolute Basophil Count 0.02 10^3/uL (0.0-0.2); Absolute Lymphocyte Count 0.68 10^3/uL (1.2-3.4); Absolute Monocyte Count 0.63 10^3/uL (0.1-0.8); Absolute Neutrophil Count 7.88 10^3/uL (1.2-6.7); Basophils % 0.2; HCT 36.8 % (40.0-50.0); HGB 12.9 g/dL (13.5-17.5); Immature Grans % 0.8; Lymphocytes % 7.3; MCH 30.4 pg (27.0-33.0); MCHC 35.1 % (32.0-36.0); MCV 87 fL (80-95); MPV 8.8 fL (8.0-11.0); Monocytes % 6.8; Neutrophils % 84.9; Platelet Count 238 10^3/uL (130-400); RBC 4.24 10^6/uL (4.36-5.78); RDW 12.9 % (11.8-14.1); RDW-SD 40.8 fL; WBC 9.28 10^3/uL (4.4-10.8)
[2022-07-26 13:06] LABS: ALT 21 U/L (16-63); AST 18 U/L (15-37); Albumin 3.8 g/dL (3.4-5.0); Alkaline Phosphatase 83 U/L (46-116); Anion Gap 8.8 mmol/L (3-11); BUN 27 mg/dL (7-18); Bilirubin, Total 0.6 mg/dL (0.2-1.0); CO2 24.2 mmol/L (21.0-32.0); CREATININE 1.3 mg/dL (0.70-1.30); Calcium 9.3 mg/dL (8.5-10.1); Chloride 103 mmol/L (98-107); FREE T4 0.74 ng/dL (0.76-1.46); Glucose 186 mg/dL (74-106); Potassium 4.1 mmol/L (3.5-5.1); Sodium 136 mmol/L (136-145); TSH 1.11 uIU/mL (0.36-3.74); Total Protein 7.2 g/dL (6.4-8.2)
[2022-08-17 13:29] LABS: Abs Immature Grans 0.15 10^3/uL (0.0-0.06); Absolute Basophil Count 0.04 10^3/uL (0.0-0.2); Absolute Lymphocyte Count 0.83 10^3/uL (1.2-3.4); Absolute Monocyte Count 0.66 10^3/uL (0.1-0.8); Absolute Neutrophil Count 11.85 10^3/uL (1.2-6.7); Basophils % 0.3; HCT 38.3 % (40.0-50.0); HGB 13.2 g/dL (13.5-17.5); Immature Grans % 1.1; Lymphocytes % 6.1; MCH 30.4 pg (27.0-33.0); MCHC 34.5 % (32.0-36.0); MCV 88 fL (80-95); MPV 8.9 fL (8.0-11.0); Monocytes % 4.9; Neutrophils % 87.6; Platelet Count 245 10^3/uL (130-400); RBC 4.34 10^6/uL (4.36-5.78); RDW 12.9 % (11.8-14.1); RDW-SD 41.6 fL; WBC 13.53 10^3/uL (4.4-10.8)
[2022-08-17 13:59] LABS: ALT 22 U/L (16-63); AST 13 U/L (15-37); Albumin 3.8 g/dL (3.4-5.0); Alkaline Phosphatase 86 U/L (46-116); Anion Gap 8.8 mmol/L (3-11); BUN 32 mg/dL (7-18); Bilirubin, Total 0.5 mg/dL (0.2-1.0); CO2 27.2 mmol/L (21.0-32.0); CREATININE 1.3 mg/dL (0.70-1.30); Calcium 9.2 mg/dL (8.5-10.1); Chloride 107 mmol/L (98-107); FREE T4 0.69 ng/dL (0.76-1.46); Glucose 201 mg/dL (74-106); Potassium 4.4 mmol/L (3.5-5.1); Sodium 143 mmol/L (136-145); TSH 0.77 uIU/mL (0.36-3.74); Total Protein 7.1 g/dL (6.4-8.2)
== END 2022-08-18 23:59 | disposition home or self-care (01) ==
LOC: INF 03:23
PROVIDERS: PCP Family Medicine; Visit Provider Internal Medicine Hematology & Oncology
DX: R63.4 Abnormal weight loss (principal); R53.83 Other fatigue; C44.229 Squamous cell carcinoma of skin of left ear and external auricular canal; Z79.899 Other long term (current) drug therapy
CPT/HCPCS: 36415; 80053; 84439; 84443; 85025

== ENCOUNTER 2022-09-06 04:01 | Outpatient (RCR) | payer MEDICARE, SELFPAY ==
[2022-09-06 09:10] LABS: Abs Immature Grans 0.19 10^3/uL (0.0-0.06); Absolute Basophil Count 0.05 10^3/uL (0.0-0.2); Absolute Eosinophil Count 0.02 10^3/uL (0.0-0.7); Absolute Lymphocyte Count 0.78 10^3/uL (1.2-3.4); Absolute Monocyte Count 0.15 10^3/uL (0.1-0.8); Absolute Neutrophil Count 6.56 10^3/uL (1.2-6.7); Basophils % 0.6; Eosinophils % 0.3; HCT 39.1 % (40.0-50.0); HGB 13.9 g/dL (13.5-17.5); Immature Grans % 2.5; Lymphocytes % 10.1; MCH 31.1 pg (27.0-33.0); MCHC 35.5 % (32.0-36.0); MCV 88 fL (80-95); MPV 8.8 fL (8.0-11.0); Monocytes % 1.9; Neutrophils % 84.6; Platelet Count 214 10^3/uL (130-400); RBC 4.47 10^6/uL (4.36-5.78); RDW 12.7 % (11.8-14.1); RDW-SD 40.4 fL; WBC 7.75 10^3/uL (4.4-10.8)
[2022-09-06 09:38] LABS: ALT 22 U/L (16-63); AST 18 U/L (15-37); Albumin 3.7 g/dL (3.4-5.0); Alkaline Phosphatase 96 U/L (46-116); Anion Gap 7.9 mmol/L (3-11); BUN 16 mg/dL (7-18); Bilirubin, Total 0.5 mg/dL (0.2-1.0); CO2 26.1 mmol/L (21.0-32.0); CREATININE 1.2 mg/dL (0.70-1.30); Calcium 9.1 mg/dL (8.5-10.1); Chloride 101 mmol/L (98-107); Estimated GFR 65.06 (mL/min/1.73m2); FREE T4 0.68 ng/dL (0.76-1.46); Glucose 231 mg/dL (74-106); Potassium 4.2 mmol/L (3.5-5.1); Sodium 135 mmol/L (136-145); TSH 1.61 uIU/mL (0.36-3.74); Total Protein 7.3 g/dL (6.4-8.2)
== END 2022-09-17 23:59 | disposition home or self-care (01) ==
LOC: INF 04:01
PROVIDERS: PCP Family Medicine; Visit Provider Internal Medicine Hematology & Oncology
DX: R63.4 Abnormal weight loss (principal); C44.229 Squamous cell carcinoma of skin of left ear and external auricular canal
CPT/HCPCS: 36415; 80053; 84439; 84443; 85025

== ENCOUNTER 2022-10-18 01:57 | Outpatient (RCR) | payer MEDICARE, SELFPAY ==
[2022-09-27 12:41] LABS: Abs Immature Grans 0.11 10^3/uL (0.0-0.06); Absolute Basophil Count 0.03 10^3/uL (0.0-0.2); Absolute Eosinophil Count 0.01 10^3/uL (0.0-0.7); Absolute Lymphocyte Count 0.54 10^3/uL (1.2-3.4); Absolute Neutrophil Count 6.41 10^3/uL (1.2-6.7); Basophils % 0.4; Eosinophils % 0.1; HGB 13.2 g/dL (13.5-17.5); Immature Grans % 1.5; Lymphocytes % 7.4; MCHC 34.7 % (32.0-36.0); MCV 89 fL (80-95); MPV 9.1 fL (8.0-11.0); Monocytes % 2.7; Neutrophils % 87.9; Platelet Count 216 10^3/uL (130-400); RBC 4.26 10^6/uL (4.36-5.78); RDW 12.7 % (11.8-14.1); RDW-SD 41.6 fL
[2022-09-27 13:11] LABS: ALT 22 U/L (16-63); AST 21 U/L (15-37); Albumin 3.8 g/dL (3.4-5.0); Alkaline Phosphatase 97 U/L (46-116); Anion Gap 10.7 mmol/L (3-11); BUN 29 mg/dL (7-18); Bilirubin, Total 0.6 mg/dL (0.2-1.0); CO2 23.3 mmol/L (21.0-32.0); CREATININE 1.3 mg/dL (0.70-1.30); Calcium 9.1 mg/dL (8.5-10.1); Chloride 105 mmol/L (98-107); FREE T4 0.72 ng/dL (0.76-1.46); Glucose 203 mg/dL (74-106); Potassium 4.5 mmol/L (3.5-5.1); Sodium 139 mmol/L (136-145); TSH 1.21 uIU/mL (0.36-3.74)
[2022-10-18 09:24] LABS: Abs Immature Grans 0.06 10^3/uL (0.0-0.06); Absolute Basophil Count 0.02 10^3/uL (0.0-0.2); Absolute Lymphocyte Count 0.83 10^3/uL (1.2-3.4); Absolute Monocyte Count 0.22 10^3/uL (0.1-0.8); Absolute Neutrophil Count 5.62 10^3/uL (1.2-6.7); Basophils % 0.3; HCT 41.6 % (40.0-50.0); HGB 14.4 g/dL (13.5-17.5); Immature Grans % 0.9; Lymphocytes % 12.3; MCH 30.9 pg (27.0-33.0); MCHC 34.6 % (32.0-36.0); MCV 89 fL (80-95); MPV 8.6 fL (8.0-11.0); Monocytes % 3.3; Neutrophils % 83.2; Platelet Count 230 10^3/uL (130-400); RBC 4.66 10^6/uL (4.36-5.78); RDW 12.7 % (11.8-14.1); RDW-SD 41.6 fL; WBC 6.75 10^3/uL (4.4-10.8)
[2022-10-18 09:52] LABS: ALT 19 U/L (16-63); AST 15 U/L (15-37); Albumin 3.8 g/dL (3.4-5.0); Alkaline Phosphatase 89 U/L (46-116); Anion Gap 7.7 mmol/L (3-11); BUN 20 mg/dL (7-18); Bilirubin, Total 0.5 mg/dL (0.2-1.0); CO2 27.3 mmol/L (21.0-32.0); CREATININE 1.3 mg/dL (0.70-1.30); Calcium 9.4 mg/dL (8.5-10.1); Chloride 103 mmol/L (98-107); Glucose 204 mg/dL (74-106); Potassium 4.3 mmol/L (3.5-5.1); Sodium 138 mmol/L (136-145); TSH 1.75 uIU/mL (0.36-3.74); Total Protein 7.2 g/dL (6.4-8.2)
== END 2022-10-18 23:59 | disposition home or self-care (01) ==
LOC: INF 01:57
PROVIDERS: PCP Family Medicine; Visit Provider Internal Medicine Hematology & Oncology
DX: R63.4 Abnormal weight loss (principal); C44.229 Squamous cell carcinoma of skin of left ear and external auricular canal; R53.83 Other fatigue
CPT/HCPCS: 36415; 80053; 84439; 84443; 85025

== ENCOUNTER 2022-11-08 04:25 | Outpatient (RCR) | payer MEDICARE, SELFPAY ==
[2022-11-08 09:39] LABS: Absolute Basophil Count 0.02 10^3/uL (0.0-0.2); Absolute Lymphocyte Count 0.84 10^3/uL (1.2-3.4); Absolute Monocyte Count 0.51 10^3/uL (0.1-0.8); Absolute Neutrophil Count 7.94 10^3/uL (1.2-6.7); Basophils % 0.2; HCT 38.4 % (40.0-50.0); Immature Grans % 1.1; Lymphocytes % 8.9; MCH 30.3 pg (27.0-33.0); MCHC 33.9 % (32.0-36.0); MCV 90 fL (80-95); MPV 8.8 fL (8.0-11.0); Monocytes % 5.4; Neutrophils % 84.4; Platelet Count 234 10^3/uL (130-400); RBC 4.29 10^6/uL (4.36-5.78); RDW 12.5 % (11.8-14.1); RDW-SD 41.1 fL; WBC 9.41 10^3/uL (4.4-10.8)
[2022-11-08 10:05] LABS: ALT 21 U/L (16-63); AST 13 U/L (15-37); Albumin 3.8 g/dL (3.4-5.0); Alkaline Phosphatase 96 U/L (46-116); Anion Gap 10.4 mmol/L (3-11); BUN 26 mg/dL (7-18); Bilirubin, Total 0.4 mg/dL (0.2-1.0); CO2 24.6 mmol/L (21.0-32.0); CREATININE 1.4 mg/dL (0.70-1.30); Calcium 9.6 mg/dL (8.5-10.1); Chloride 103 mmol/L (98-107); Estimated GFR 54.07 (mL/min/1.73m2); FREE T4 0.74 ng/dL (0.76-1.46); Glucose 282 mg/dL (74-106); Sodium 138 mmol/L (136-145); TSH 1.64 uIU/mL (0.36-3.74); Total Protein 7.1 g/dL (6.4-8.2)
== END 2022-11-18 23:59 | disposition home or self-care (01) ==
LOC: INF 04:25
PROVIDERS: PCP Family Medicine; Visit Provider Internal Medicine Hematology & Oncology
DX: C44.229 Squamous cell carcinoma of skin of left ear and external auricular canal (principal)
CPT/HCPCS: 36415; 80053; 84439; 84443; 85025

== ENCOUNTER 2022-11-30 10:42 | Outpatient (RCR) | payer MEDICARE, SELFPAY ==
[2022-11-29 10:02] LABS: Abs Immature Grans 0.27 10^3/uL (0.0-0.06); Absolute Basophil Count 0.03 10^3/uL (0.0-0.2); Absolute Lymphocyte Count 1.16 10^3/uL (1.2-3.4); Absolute Monocyte Count 0.81 10^3/uL (0.1-0.8); Absolute Neutrophil Count 11.92 10^3/uL (1.2-6.7); Basophils % 0.2; HCT 40.6 % (40.0-50.0); HGB 14.3 g/dL (13.5-17.5); Immature Grans % 1.9; Lymphocytes % 8.2; MCH 30.7 pg (27.0-33.0); MCHC 35.2 % (32.0-36.0); MCV 87 fL (80-95); MPV 9.2 fL (8.0-11.0); Monocytes % 5.7; Platelet Count 272 10^3/uL (130-400); RBC 4.66 10^6/uL (4.36-5.78); RDW 12.4 % (11.8-14.1); RDW-SD 39.3 fL; WBC 14.19 10^3/uL (4.4-10.8)
[2022-11-29 10:30] LABS: ALT 18 U/L (16-63); AST 9 U/L (15-37); Albumin 3.9 g/dL (3.4-5.0); Alkaline Phosphatase 99 U/L (46-116); Anion Gap 8.5 mmol/L (3-11); BUN 21 mg/dL (7-18); Bilirubin, Total 0.5 mg/dL (0.2-1.0); CO2 26.5 mmol/L (21.0-32.0); CREATININE 1.3 mg/dL (0.70-1.30); Calcium 9.6 mg/dL (8.5-10.1); Chloride 101 mmol/L (98-107); FREE T4 0.73 ng/dL (0.76-1.46); Glucose 278 mg/dL (74-106); Potassium 3.8 mmol/L (3.5-5.1); Sodium 136 mmol/L (136-145); TSH 1.91 uIU/mL (0.36-3.74); Total Protein 7.6 g/dL (6.4-8.2)
[2022-11-30 19:10] LABS: PSA, Ultrasensitive 6.6 ng/mL (<= 6.5)
== END 2022-12-18 23:59 | disposition home or self-care (01) ==
LOC: INF 10:42
PROVIDERS: PCP Family Medicine; Visit Provider Internal Medicine Hematology & Oncology
DX: C44.229 Squamous cell carcinoma of skin of left ear and external auricular canal (principal); Z79.899 Other long term (current) drug therapy; R93.5 Abnormal findings on diagnostic imaging of other abdominal regions, including retroperitoneum
CPT/HCPCS: 36415; 80053; 84153; 84439; 84443; 85025

== ENCOUNTER 2023-01-10 12:20 | Outpatient (RCR) | payer MEDICARE, SELFPAY ==
[2022-12-20 12:41] LABS: Abs Immature Grans 0.45 10^3/uL (0.0-0.06); Absolute Basophil Count 0.05 10^3/uL (0.0-0.2); Absolute Lymphocyte Count 0.87 10^3/uL (1.2-3.4); Basophils % 0.3; HCT 40.4 % (40.0-50.0); HGB 13.9 g/dL (13.5-17.5); Immature Grans % 2.6; Lymphocytes % 5.1; MCH 30.1 pg (27.0-33.0); MCHC 34.4 % (32.0-36.0); MCV 87 fL (80-95); MPV 9.3 fL (8.0-11.0); Monocytes % 2.9; Neutrophils % 89.1; Platelet Count 237 10^3/uL (130-400); RBC 4.62 10^6/uL (4.36-5.78); RDW 12.3 % (11.8-14.1); RDW-SD 39.5 fL
[2022-12-20 12:42] LABS: Absolute Monocyte Count 0.49 10^3/uL (0.1-0.8); Absolute Neutrophil Count 15.15 10^3/uL (1.2-6.7)
[2022-12-20 13:14] LABS: ALT 43 U/L (16-63); AST 16 U/L (15-37); Alkaline Phosphatase 91 U/L (46-116); Anion Gap 11.2 mmol/L (3-11); BUN 34 mg/dL (7-18); Bilirubin, Total 0.4 mg/dL (0.2-1.0); CO2 23.8 mmol/L (21.0-32.0); CREATININE 1.6 mg/dL (0.70-1.30); Calcium 10.2 mg/dL (8.5-10.1); Chloride 101 mmol/L (98-107); Estimated GFR 45.78 (mL/min/1.73m2); FREE T4 0.68 ng/dL (0.76-1.46); Glucose 356 mg/dL (74-106); Potassium 4.4 mmol/L (3.5-5.1); Sodium 136 mmol/L (136-145)
[2023-01-10 13:28] LABS: Abs Immature Grans 0.58 10^3/uL (0.0-0.06); Absolute Basophil Count 0.07 10^3/uL (0.0-0.2); Absolute Eosinophil Count 0.01 10^3/uL (0.0-0.7); Absolute Lymphocyte Count 1.22 10^3/uL (1.2-3.4); Absolute Monocyte Count 0.85 10^3/uL (0.1-0.8); Basophils % 0.5; Eosinophils % 0.1; HCT 37.6 % (40.0-50.0); HGB 13.1 g/dL (13.5-17.5); Immature Grans % 4.3; MCH 30.1 pg (27.0-33.0); MCHC 34.8 % (32.0-36.0); MCV 86 fL (80-95); MPV 8.7 fL (8.0-11.0); Monocytes % 6.3; Neutrophils % 79.8; Platelet Count 272 10^3/uL (130-400); RBC 4.35 10^6/uL (4.36-5.78); RDW 12.6 % (11.8-14.1); RDW-SD 39.5 fL; WBC 13.54 10^3/uL (4.4-10.8)
[2023-01-10 13:55] LABS: ALT 20 U/L (16-63); AST 14 U/L (15-37); Albumin 3.7 g/dL (3.4-5.0); Alkaline Phosphatase 91 U/L (46-116); Anion Gap 10.4 mmol/L (3-11); BUN 26 mg/dL (7-18); Bilirubin, Total 0.4 mg/dL (0.2-1.0); CO2 24.6 mmol/L (21.0-32.0); CREATININE 1.4 mg/dL (0.70-1.30); Calcium 9.6 mg/dL (8.5-10.1); Chloride 99 mmol/L (98-107); Estimated GFR 53.74 (mL/min/1.73m2); FREE T4 0.76 ng/dL (0.76-1.46); Glucose 274 mg/dL (74-106); Potassium 4.2 mmol/L (3.5-5.1); Sodium 134 mmol/L (136-145); TSH 1.81 uIU/mL (0.36-3.74); Total Protein 7.7 g/dL (6.4-8.2)
[2023-01-10 13:56] LABS: Diff Comment Agrees w/ Instrument; RBC Morphology Normal
== END 2023-01-18 23:59 | disposition home or self-care (01) ==
LOC: INF 12:20
PROVIDERS: Nurse Practitioner Gerontology; PCP Family Medicine; Visit Provider Internal Medicine Hematology & Oncology
DX: C44.229 Squamous cell carcinoma of skin of left ear and external auricular canal (principal); Z79.899 Other long term (current) drug therapy
CPT/HCPCS: 36415; 80053; 84439; 84443; 85025

== ENCOUNTER 2023-01-31 02:15 | Outpatient (RCR) | payer MEDICARE, SELFPAY ==
[2023-01-31 12:38] LABS: Abs Immature Grans 0.15 10^3/uL (0.0-0.06); Absolute Basophil Count 0.05 10^3/uL (0.0-0.2); Absolute Lymphocyte Count 1.12 10^3/uL (1.2-3.4); Absolute Monocyte Count 0.55 10^3/uL (0.1-0.8); Absolute Neutrophil Count 4.05 10^3/uL (1.2-6.7); Basophils % 0.8; Eosinophils % 4.8; HCT 36.5 % (40.0-50.0); HGB 12.7 g/dL (13.5-17.5); Immature Grans % 2.4; MCH 30.3 pg (27.0-33.0); MCHC 34.8 % (32.0-36.0); MCV 87 fL (80-95); MPV 9.1 fL (8.0-11.0); Monocytes % 8.8; Neutrophils % 65.2; Platelet Count 178 10^3/uL (130-400); RBC 4.19 10^6/uL (4.36-5.78); RDW 12.9 % (11.8-14.1); RDW-SD 40.9 fL; WBC 6.22 10^3/uL (4.4-10.8)
[2023-01-31 13:02] LABS: ALT 22 U/L (16-63); AST 15 U/L (15-37); Albumin 3.5 g/dL (3.4-5.0); Alkaline Phosphatase 91 U/L (46-116); Anion Gap 8.6 mmol/L (3-11); BUN 24 mg/dL (7-18); Bilirubin, Total 0.5 mg/dL (0.2-1.0); CO2 25.4 mmol/L (21.0-32.0); CREATININE 1.3 mg/dL (0.70-1.30); Calcium 9.3 mg/dL (8.5-10.1); Chloride 103 mmol/L (98-107); Estimated GFR 58.73 (mL/min/1.73m2); FREE T4 0.79 ng/dL (0.76-1.46); Glucose 326 mg/dL (74-106); Potassium 4.2 mmol/L (3.5-5.1); Sodium 137 mmol/L (136-145); TSH 3.44 uIU/mL (0.36-3.74)
== END 2023-02-17 23:59 | disposition home or self-care (01) ==
LOC: INF 02:15
PROVIDERS: Nurse Practitioner Gerontology; PCP Family Medicine; Visit Provider Internal Medicine Hematology & Oncology
DX: C44.229 Squamous cell carcinoma of skin of left ear and external auricular canal (principal); Z79.899 Other long term (current) drug therapy
CPT/HCPCS: 36415; 80053; 84439; 84443; 85025

== ENCOUNTER 2023-03-03 09:17 | Outpatient (RCR) | payer MEDICARE, SELFPAY ==
[2023-03-03 11:59] LABS: ALT 23 U/L (16-63); AST 14 U/L (15-37); Albumin 3.7 g/dL (3.4-5.0); Alkaline Phosphatase 99 U/L (46-116); Anion Gap 7.3 mmol/L (3-11); BUN 26 mg/dL (7-18); Bilirubin, Total 0.4 mg/dL (0.2-1.0); CO2 27.7 mmol/L (21.0-32.0); CREATININE 1.5 mg/dL (0.70-1.30); Calcium 9.4 mg/dL (8.5-10.1); Chloride 102 mmol/L (98-107); Estimated GFR 49.47 (mL/min/1.73m2); FREE T4 0.81 ng/dL (0.76-1.46); Glucose 201 mg/dL (74-106); Sodium 137 mmol/L (136-145); Total Protein 7.1 g/dL (6.4-8.2)
[2023-03-03 12:02] LABS: TSH 5.23 uIU/mL (0.36-3.74)
[2023-03-03 12:10] LABS: HCT 40.9 % (40.0-50.0); MCH 30.3 pg (27.0-33.0); MCHC 34.2 % (32.0-36.0); MCV 89 fL (80-95); RBC 4.62 10^6/uL (4.36-5.78); RDW 12.9 % (11.8-14.1); WBC 7.94 10^3/uL (4.4-10.8)
[2023-03-03 12:11] LABS: Abs Immature Grans 0.14 10^3/uL (0.0-0.06); Absolute Basophil Count 0.08 10^3/uL (0.0-0.2); Absolute Eosinophil Count 0.55 10^3/uL (0.0-0.7); Absolute Lymphocyte Count 1.85 10^3/uL (1.2-3.4); Absolute Monocyte Count 0.99 10^3/uL (0.1-0.8); Absolute Neutrophil Count 4.33 10^3/uL (1.2-6.7); Eosinophils % 6.9; Immature Grans % 1.8; Lymphocytes % 23.3; Monocytes % 12.5; Neutrophils % 54.5; Platelet Count 232 10^3/uL (130-400)
== END 2023-03-20 23:59 | disposition home or self-care (01) ==
LOC: INF 09:17
PROVIDERS: PCP Family Medicine; Visit Provider Internal Medicine Hematology & Oncology
DX: C44.229 Squamous cell carcinoma of skin of left ear and external auricular canal (principal); Z79.899 Other long term (current) drug therapy
CPT/HCPCS: 36415; 80053; 84439; 84443; 85025

== ENCOUNTER 2023-04-14 08:20 | Outpatient (RCR) | payer MEDICARE, SELFPAY ==
[2023-03-24 09:32] LABS: Abs Immature Grans 0.13 10^3/uL (0.0-0.06); Absolute Basophil Count 0.09 10^3/uL (0.0-0.2); Absolute Eosinophil Count 0.61 10^3/uL (0.0-0.7); Absolute Neutrophil Count 3.91 10^3/uL (1.2-6.7); Basophils % 1.3; Eosinophils % 8.9; HCT 40.3 % (40.0-50.0); HGB 13.8 g/dL (13.5-17.5); Immature Grans % 1.9; Lymphocytes % 20.5; MCH 29.6 pg (27.0-33.0); MCHC 34.2 % (32.0-36.0); MCV 87 fL (80-95); MPV 8.9 fL (8.0-11.0); Monocytes % 10.2; Neutrophils % 57.2; Platelet Count 198 10^3/uL (130-400); RBC 4.66 10^6/uL (4.36-5.78); RDW 12.7 % (11.8-14.1); RDW-SD 40.1 fL; WBC 6.84 10^3/uL (4.4-10.8)
[2023-03-24 09:57] LABS: ALT 23 U/L (16-63); AST 17 U/L (15-37); Albumin 3.5 g/dL (3.4-5.0); Alkaline Phosphatase 83 U/L (46-116); BUN 19 mg/dL (7-18); Bilirubin, Total 0.4 mg/dL (0.2-1.0); CREATININE 1.4 mg/dL (0.70-1.30); Calcium 8.9 mg/dL (8.5-10.1); Chloride 102 mmol/L (98-107); Estimated GFR 53.74 (mL/min/1.73m2); FREE T4 0.85 ng/dL (0.76-1.46); Glucose 360 mg/dL (74-106); Sodium 137 mmol/L (136-145); Total Protein 6.7 g/dL (6.4-8.2)
[2023-04-14 08:46] LABS: Abs Immature Grans 0.16 10^3/uL (0.0-0.06); Absolute Basophil Count 0.09 10^3/uL (0.0-0.2); Absolute Eosinophil Count 0.61 10^3/uL (0.0-0.7); Absolute Lymphocyte Count 1.68 10^3/uL (1.2-3.4); Absolute Monocyte Count 1.15 10^3/uL (0.1-0.8); Absolute Neutrophil Count 7.16 10^3/uL (1.2-6.7); Basophils % 0.8; Eosinophils % 5.6; HCT 43.5 % (40.0-50.0); HGB 14.7 g/dL (13.5-17.5); Immature Grans % 1.5; Lymphocytes % 15.5; MCH 29.2 pg (27.0-33.0); MCHC 33.8 % (32.0-36.0); MCV 86 fL (80-95); MPV 8.8 fL (8.0-11.0); Monocytes % 10.6; Platelet Count 219 10^3/uL (130-400); RBC 5.04 10^6/uL (4.36-5.78); RDW 12.7 % (11.8-14.1); RDW-SD 39.6 fL; WBC 10.85 10^3/uL (4.4-10.8)
[2023-04-14 09:09] LABS: ALT 25 U/L (16-63); AST 19 U/L (15-37); Albumin 3.8 g/dL (3.4-5.0); Alkaline Phosphatase 77 U/L (46-116); Anion Gap 8.8 mmol/L (3-11); BUN 23 mg/dL (7-18); Bilirubin, Total 0.5 mg/dL (0.2-1.0); CO2 26.2 mmol/L (21.0-32.0); CREATININE 1.2 mg/dL (0.70-1.30); Calcium 9.1 mg/dL (8.5-10.1); Chloride 104 mmol/L (98-107); Estimated GFR 64.65 (mL/min/1.73m2); FREE T4 0.82 ng/dL (0.76-1.46); Glucose 138 mg/dL (74-106); Potassium 4.2 mmol/L (3.5-5.1); Sodium 139 mmol/L (136-145); Total Protein 7.4 g/dL (6.4-8.2)
== END 2023-04-20 23:59 | disposition home or self-care (01) ==
LOC: INF 08:20
PROVIDERS: PCP Family Medicine; Visit Provider Internal Medicine Hematology & Oncology
DX: C44.229 Squamous cell carcinoma of skin of left ear and external auricular canal (principal); Z79.899 Other long term (current) drug therapy
CPT/HCPCS: 36415; 80053; 84439; 84443; 85025

== ENCOUNTER 2023-05-05 07:55 | Outpatient (RCR) | payer MEDICARE, SELFPAY ==
--- OUTSIDE RECORDS SUMMARY | 2023-05-05 07:57 | XMS_ITS | Continuity of Care Document ---
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 Name Role Phone Toan ROMERO, Tara Espino Primary Care Physician Encounter LTTL_ND FIN [id number] Date(s): 08/15/22 - 08/16/[address] [id number] Encounter Diagnosis Paresthesias(Discharge Diagnosis) - 08/16/22 Discharge Disposition: Home f/u External Provider Attending Physician: Lucy Ayala MD Admitting Physician: Lucy Ayala MD Allergies, Adverse Reactions, Alerts Substance Reaction Severity Status codeine Itching Mild Active penicillin Itching Mild Active Medications amitriptyline 50 mg oral tablet 270 EA, TAKE 3 TABLETS BY MOUTH AT BEDTIME FOR SLEEP AND FOR DEPRESSION, 0 Refill(s) Start Date: 02/10/22 Status: Ordered ARIPiprazole 30 mg oral tablet 30 mg = 1 tab, Oral, Daily, # 90 tab, 0 Refill(s) Start Date: 08/15/22 Status: Ordered atorvastatin 20 mg oral tablet 180 EA, TAKE 2 TABLETS BY MOUTH ONCE DAILY FOR CHOLESTEROL, 0 Refill(s) Start Date: 02/10/22 Status: Ordered dexamethasone 4 mg oral tablet 6 EA, TAKE 1 TABLET BY MOUTH TWICE DAILY WITH MEALS IN THE EVENING AND IN THE MORNING THE DAY BEFORE, DAY OF, AND DAY AFTER EACH CEMIPLIMAB INFUSION., 0 Refill(s) Start Date: 02/10/22 Status: Ordered erythromycin 0.5% ophthalmic ointment 4 g, INSTILL OINTMENT INTO LEFT EYE TWICE DAILY, 0 Refill(s) Start Date: 02/10/22 Status: Ordered fenofibrate 145 mg oral tablet 90 EA, TAKE 1 TABLET BY MOUTH ONCE DAILY FOR HIGH TRIGLYCERIDES, 0 Refill(s) Start Date: 02/10/22 Status: Ordered lamoTRIgine 200 mg oral tablet 180 EA, TAKE 1 TABLET BY MOUTH TWICE DAILY FOR BIPOLAR DISORDER, 0 Refill(s) Start Date: 02/10/22 Status: Ordered Metoprolol Succinate ER 25 mg oral tablet, extended release 25 mg = 1 tab, Oral, Daily, # 30 tab, 0 Refill(s) Start Date: 08/15/22 Status: Ordered nitroglycerin 0.4 mg sublingual tablet 25 EA, DISSOLVE ONE TABLET UNDER THE TONGUE EVERY 5 MINUTES NEEDED FOR CHEST PAIN. DO NOT EXCEEDA TOTAL OF 3 DOSES IN 15 MINUTES . IF NO RELIEF GO TO EMERGENCY ROOM, 0 Refill(s) Start Date: 02/10/22 Status: Ordered Mental Status 08/15/22 Eye Opening Response Jay Spontaneous ly Best Verbal Response Jay Oriented Best Motor Response Stebbins Obeys comman ds Jay Coma Score 15 Results Laboratory List Name Date CBC w/ Diff 08/16/22 Comprehensive Metabolic Panel (CMP) 08/16 Magnesium Level 08/16/22 Automated Diff 08/15/22 Most recent to oldest [Reference Range]: 1 WBC [4.8-10.8 K/mcL] 6.0 K/mcL (08/16/22 12:45 AM) RBC [4.20-6.10 Million/mcL] 4.35 Million /mcL (08/16/22 12:45 AM) Neutro Auto [42.2-75.2 %] 87.0 % *HI* (08/16/22 12:45 AM) Lymph Auto [20.5-51.1 %] 10.0 % *LOW* (08/16/22 12:45 AM) Martin Auto [1.7-9.3 %] 1.5 % *LOW* (08/16/22 12:45 AM) Basophil Auto [0.0-0.8 %] 0.3 % (08/16/22 12:45 AM) BUN [8-26 mg/dL] 28 mg/dL *HI* (08/16/22 12:45 AM) Glucose Level [74-106 mg/dL] 209 mg/dL *HI* (08/16/22 12:45 AM) Potassium Level [3.5-5.1 mmol/L] 4.7 mmo l/L (08/16/22 12:45 AM) Baso Absolute [0.0-0.2 K/mcL] 0.0 K/mcL (08/16/22 12:45 AM) MCV [80.0-94.0 fL] 91.3 fL (08/16/22 12:45 AM) AST [15-41 IntlUnit/L] 23 IntlUnit/L (08/16/22 12:45 AM) ALT [17-63 IntlUnit/L] 16 IntlUnit/L *LOW* (08/16/2245 AM) MCHC [32.0-36.0 g/dL] 33.5 g/dL (08/16/22 12:45 AM) Osmolality [275-295 mOsm/kg] 284 mOsm/kg (08/16/22 12:45 AM) Sodium Level [134-143 mmol/L] 136 mmol/L (08/16/22 12:45 AM) Lymph Absolute [1.2-3.4 K/mcL] 0.6 K/mcL *LOW* (08/16/22:45 AM) Hct [42.0-52.0 %] 39.7 % *LOW* (08/16/22:45 AM) Calcium Level [8.9-10.3 mg/dL] 9.5 mg/dL (08/16/22 12:45 AM) Martin Absolute [0.1-0.6 K/mcL] 0.1 K/mcL (08/16/2245 AM) Albumin Level [3.5-5.0 g/dL] 4.4 g/dL (08/16/22:45 AM) Protein Total [6.5-8.1 g/dL] 7.5 g/dL (08/16/22 12:45 AM) MCH [27.0-31.0 pg] 30.6 pg (08/16/22:45 AM) Magnesium Level [1.8-2.5 mg/dL] 2.2 mg/d L (08/16/22 12:45 AM) Neutro Absolute [1.4-6.5 K/mcL] 5.2 K/mc L (08/16/22 12:45 AM) Bilirubin Total [0.2-1.2 mg/dL] 0.9 mg/d L (08/16/22 12:45 AM) Hgb [14.0-18.0 g/dL] 13.3 g/dL *LOW* (08/16/22 12:45 AM) Alk Phos [38-130 IntlUnit/L] 70 IntlUnit /L (08/16/22 12:45 AM) MPV [7.4-10.4 fL] 8.9 fL (08/16/2245 AM) Platelets [130-400 K/mcL] 228 K/mcL (08/16/22 12:45 AM) CO2 [22-32 mmol/L] 26 mmol/L (08/16/22 12:45 AM) Eos Absolute [0.0-0.2 K/mcL] 0.0 K/mcL (08/16/2245 AM) Chloride Level [98-111 mmol/L] 103 mmol/ L (08/16/22 12:45 AM) RDW-CV [11.5-14.5 %] 13.2 % (08/16/22 12:45 AM) A/G Ratio 1.4 *NA* (08/16/22 12:45 AM) BUN/Creat Ratio [8.0-20.0] 23.7 *HI* (08/16/22 12:45 AM) Globulin 3.1 *NA* (08/16/22 12:45 AM) Imm Gran Absolute 0.07 *NA* (08/16/22 12:45 AM) Imm Gran Auto [0.0-0.5 %] 1.2 % *HI* (08/16/22 12:45 AM) Slide Review Not Indicated (08/16/22 12:45 AM) Creatinine Level [0.61-1.24 mg/dL] 1.18 mg/dL (08/16/22 12:45 AM) Anion Gap [3.0-12.0] 7.0 (08/16/22 12:45 AM) Eos, Auto [0.00-3.00 %] 0.00 % (08/16/22 12:45 AM) eGFR CKD-EPI [>=60 mL/min/1.73 m2] 66 mL /min/1.73 m2 (08/16/22 12:45 AM) Radiology Reports * Exam Date Time Procedure Performing Provider Status 08/15/22 11:[address] Head w/o Contrast Marta Cox (Verified) Notes: (CT Head w/o Contrast) Reason For Exam: ho CA, extremity paresthesia CT Head w/o Contrast PROCEDURE INFORMATION: Exam: CT Head Without Contrast Exam date and time: 08/15/2022 11:40 PM Age: 71 years old Clinical indication: Condition or disease; History of cancer (specify primary cancer site): ; Additional info: Ho CA, extremity paresthesia TECHNIQUE: Imaging protocol: Computed tomography of the head without contrast. Radiation optimization: All CT scans at this facility use at least one of these dose optimization techniques: automated exposure control; mA and/or kV adjustment per patient size (includes targeted exams where dose is matched to clinical indication); or iterative reconstruction. REPORTING DATA: Count of CT and Cardiac NM exams in prior 12 months: This patient has received 0 known CTs and 0 known cardiac nuclear medicine studies in the 12 months prior to the current study. 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 This partially obscures overlying bony and soft-tissue detail. Brain: There is mild diffuse heterogeneity of the white matter attenuation, consistent with chronic white matter microangiopathic ischemic changes. There is mild diffuse cerebral atrophy present. There is no evidence of intracranial hemorrhage. There is no evidence of acute intracranial injury or other pathologic process. There is no evidence of an acute ischemic event. Cerebral ventricles: The ventricular system demonstrates mild diffuse compensatory enlargement. Paranasal sinuses: Mucoperiosteal thickening consistent with chronic sinusitis. No air-fluid levels to suggest evidence of acute sinusitis. Mastoid air cells: The mastoid aircells are normal. Orbital cavities: The orbits are normal without evidence of fracture. There is no evidence of retro-bulbar hemorrhage. There is no evidence of globe or lens injury. Bones/joints: Sutures present within the left temporal fossa. The bony cranium shows no evidence of injury or other acute pathologic processes. Soft tissues: The extracranial soft tissues are normal. IMPRESSION: 1. No evidence of an acute intracranial abnormality. 2. There is mild age-related atrophy and chronic white matter ischemic changes, with compensatory ventricular dilation. 3. 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 This partially obscures overlying bony and soft-tissue detail. THIS DOCUMENT HAS BEEN ELECTRONICALLY SIGNED BY SAHARA KATZ MD on 08/16/2022 12:18 AM Final Signed by: Sahara Katz MD Signed (Electronic Signature): 08/16/2022 0:18 am Vital Signs Most recent to oldest [Reference Range]: 1 Temperature Temporal Artery [36-38 Deg C ] 35.9 Deg C *LOW* (08/15/22 10:55 PM) Peripheral Pulse Rate [60-100 bpm] 66 bp m (08/15/22 10:55 PM) Respiratory Rate [12-24 br/min] 16 br/mi n (08/15/22 10:55 PM) Blood Pressure [90-140/60-90 mmHg] 125/7 6mmHg (08/15/22 10:55 PM) Weight Dosing 73.00 kg (08/15/22 11:26 PM) Weight Estimated 73.00 kg (08/15/22 10:55 PM) Height/Length Dosing 175.000 cm (08/15/22 11:26 PM) Height/Length Estimated 175.000 cm (08/15/22 10:55 PM) Social History Social History Type Response Tobacco Former tobacco user Tobacco Use:. Sex Hospital Discharge Instructions Patient Education 08/16/2022 00:44:46 Paresthesia Paresthesia Paresthesia is an abnormal burning or prickling sensation. It is usually felt in the hands, arms, legs, or feet. However, it may occur in any part of the body. Usually, paresthesia is not painful. Itmay feel like: ??? Tingling or numbness. ??? Buzzing. ??? Itching. Paresthesia may occur without any clear cause, or it may be caused by: ??? Breathing too quickly (hyperventilation). ??? Pressure on a nerve. ??? An underlying medical condition. ??? Side effects of a medication. ??? Nutritional deficiencies. ??? Exposure to toxic chemicals. Most people experience temporary (transient) paresthesia at some time in their lives. For some people, it may be long-lasting (chronic) because of an underlying medical condition. If you have paresthesia that lasts a long time, you need to be evaluated by your health care provider. Follow these instructions at home: Alcohol use ??? Do not drink alcohol if: ??? Your health care provider tells you not to drink. ??? You are , may be , or are planning to become . ??? If you drink alcohol: ??? Limit how much you use to: ??? 0???1 drink a day for women. ??? 0???2 drinks a day for men. ??? Be aware of how much alcohol is in your drink. In the [place] one drink equals one 12 oz bottle of beer (355 mL), one 5 oz glass of wine (148 mL), or one 1?? oz glass of hard liquor (44 mL). Nutrition ??? Eat a healthy diet. This includes: ??? Eating foods that are high in fiber, such as fresh fruits and vegetables, whole grains, and beans. ??? Limiting foods that are high in fat and processed sugars, such as fried or sweet foods. General instructions ??? Take [id number] and prescription medicines only as told by your health care provider. ??? Do not use any products that contain nicotine or tobacco, such as cigarettes and e-cigarettes. These can keep blood from reaching damaged nerves. If you need help quitting, ask your health care provider. ??? If you have diabetes, work closely with your health care provider to keep your blood sugar under control. ??? If you have numbness in your feet: ??? Check every day for signs of injury or infection. Watch for redness, warmth, and swelling. ??? Wear padded socks and comfortable shoes. These help protect your feet. ??? Keep all follow-up visits as told by your health care provider. This is important. Contact a health care provider if you: ??? Have paresthesia that gets worse or does not go away. ??? Have numbness after an injury. ??? Have a burning or prickling feeling that gets worse when you walk. ??? Have pain, cramps, or dizziness, or you faint. ??? Develop a rash. Get help right away if you: ??? Feel muscle weakness. ??? Develop new weakness in an arm or leg. ??? Have trouble walking or moving. ??? Have problems with speech, understanding, or vision. ??? Feel confused. ??? Cannot control your bladder or bowel movements. Summary ??? Paresthesia is an abnormal burning or prickling sensation that is usually felt in the hands, arms, legs, or feet. It may also occur in other parts of the body. ??? Paresthesia may occur without any clear cause, or it may be caused by breathing too quickly (hyperventilation), pressure on a nerve, an underlying medical condition, side effects of a medication,nutritional deficiencies, or exposure to toxic chemicals. ??? If you have paresthesia that lasts a long time, you need to be evaluated by your health care provider. This information is not intended to replace advice given to you by your health care provider. Make sure you discuss any questions you have with your health care provider. Document Revised: 12/16/2020 Document Reviewed: 12/16/2020 [employer] Patient Education ?? 2021 [employer]. Follow Up Care 08/15/2022 22:55:22 With:primary care physician Address: When:3 to 5 days Emergency department Discharge instructions * Lucy Ayala MD: PERFORM Event Display: ED Discharge Information Authored Date: [id number] WARD SIERRA :1950 Age:71 years Sex:Male Visit Date:08/15/2022 Primary Care Physician: Toan ROMERO, Tara Espino Discharge Instructions We would like to thank you for allowing us to assist you with your healthcare needs. The following includes patient education materials and information regarding your injury/illness. Diagnosis from Today's Visit Paresthesias Discharge Vitals Temperature??(Temporal Artery) 96.6 ??F (35.9 ??C) Heart Rate??(Peripheral) 66 Respiratory Rate?? 16 Blood Pressure?? 125/76?? Height?? 68.90 in (175.000 cm) Weight??(Estimated) 160.96 lb (73.00 kg) Allergies codeine??(Itching) penicillin??(Itching) What to Do Next You Need to Schedule the Following Appointments Follow Up with??primary care physician When:??Within 3 to 5 days You were treated today on an emergency basis; it may be cerrato to contact your primary care provider to notify them of your visit today. You may have been referred to your regular doctor or a specialist, please follow up as instructed. If your condition worsens or you can't get in to see the doctor, contact the Emergency Department. Medications What How Much When Instructions Next Dose Unchanged amitriptyline (amitriptyline 50 mg oral tablet) 270 EA, TAKE 3 TABLETS BY MOUTH AT BEDTIME FOR SLEEP AND FOR DEPRESSION ?? Unchanged ARIPiprazole (ARIPiprazole 30 mg oral tablet) 1 tab Oral (given by mouth) Every day Unchanged atorvastatin (atorvastatin 20 mg oral tablet) 180 EA, TAKE 2 TABLETS BY MOUTH ONCE DAILY FOR CHOLESTEROL ?? Unchanged dexamethasone (dexamethasone 4 mg oral tablet) 6 EA, TAKE 1 TABLET BY MOUTH TWICE DAILY WITH MEALS IN THE EVENING AND IN THE MORNING THE DAY BEFORE, DAY OF, AND DAY AFTER EACH CEMIPLIMAB INFUSION. ?? Unchanged erythromycin ophthalmic (erythromycin 0.5% ophthalmic ointment) 4 g, INSTILL OINTMENT INTO LEFT EYE TWICE DAILY ?? Unchanged fenofibrate (fenofibrate 145 mg oral tablet) 90 EA, TAKE 1 TABLET BY MOUTH ONCE DAILY FOR HIGH TRIGLYCERIDES ?? Unchanged lamoTRIgine (lamoTRIgine 200 mg oral tablet) 180 EA, TAKE 1 TABLET BY MOUTH TWICE DAILY FOR BIPOLAR DISORDER ?? Unchanged metoprolol (Metoprolol Succinate ER 25 mg oral tablet, extended release) 1 tab Oral (given by mouth) Every day Unchanged nitroglycerin (nitroglycerin 0.4 mg sublingual tablet) 25 EA, DISSOLVE ONE TABLET UNDER THE TONGUE EVERY 5 MINUTES NEEDED FOR CHEST PAIN. DO NOT EXCEEDA TOTAL OF 3 DOSES IN 15 MINUTES . IF NO RELIEF GO TO EMERGENCY ROOM ?? Education Materials Paresthesia Paresthesia is an abnormal burning or prickling sensation. It is usually felt in the hands, arms, legs, or feet. However, it may occur in any part of the body. Usually, paresthesia is not painful. Itmay feel like: ? Tingling or numbness. ? Buzzing. ? Itching. Paresthesia may occur without any clear cause, or it may be caused by: ? Breathing too quickly (hyperventilation). ? Pressure on a nerve. ? An underlying medical condition. ? Side effects of a medication. ? Nutritional deficiencies. ? Exposure to toxic chemicals. Most people experience temporary (transient) paresthesia at some time in their lives. For some people, it may be long-lasting (chronic) because of an underlying medical condition. If you have paresthesia that lasts a long time, you need to be evaluated by your health care provider. Follow these instructions at home: Alcohol use ? Do not drink alcohol if: ? Your health care provider tells you not to drink. ? You are , may be , or are planning to become . ? If you drink alcohol: ? Limit how much you use to: ? 0???1 drink a day for women. ? 0???2 drinks a day for men. ? Be aware of how much alcohol is in your drink. In the [place] one drink equals one 12 oz bottle of beer (355 mL), one 5 oz glass of wine (148 mL), or one 1?? oz glass of hard liquor (44 mL). Nutrition ? Eat a healthy diet. This includes: ? Eating foods that are high in fiber, such as fresh fruits and vegetables, whole grains, and beans. ? Limiting foods that are high in fat and processed sugars, such as fried or sweet foods. General instructions ? Take [id number] and prescription medicines only as told by your health care provider. ? Do not use any products that contain nicotine or tobacco, such as cigarettes and e-cigarettes. These can keep blood from reaching damaged nerves. If you need help quitting, ask your health care provider. ? If you have diabetes, work closely with your health care provider to keep your blood sugar under control. ? If you have numbness in your feet: ? Check every day for signs of injury or infection. Watch for redness, warmth, and swelling. ? Wear padded socks and comfortable shoes. These help protect your feet. ? Keep all follow-up visits as told by your health care provider. This is important. Contact a health care provider if you: ? Have paresthesia that gets worse or does not go away. ? Have numbness after an injury. ? Have a burning or prickling feeling that gets worse when you walk. ? Have pain, cramps, or dizziness, or you faint. ? Develop a rash. Get help right away if you: ? Feel muscle weakness. ? Develop new weakness in an arm or leg. ? Have trouble walking or moving. ? Have problems with speech, understanding, or vision. ? Feel confused. ? Cannot control your bladder or bowel movements. Summary ? Paresthesia is an abnormal burning or prickling sensation that is usually felt in the hands, arms, legs, or feet. It may also occur in other parts of the body. ? Paresthesia may occur without any clear cause, or it may be caused by breathing too quickly (hyperventilation), pressure on a nerve, an underlying medical condition, side effects of a medication, nutritional deficiencies, or exposure to toxic chemicals. ? If you have paresthesia that lasts a long time, you need to be evaluated by your health care provider. This information is not intended to replace advice given to you by your health care provider. Make sure you discuss any questions you have with your health care provider. Document Revised: 12/16/2020 Document Reviewed: 12/16/2020 [employer] Patient Education ?? 2021 [employer] Tests Performed Radiology CT Head w/o Contrast 08/16/2022 00:19 EDT Lab Test Name Test Result Date/Time WBC 6.0 K/mcL 08/16/2022 00:45 EDT RBC 4.35 Million/mcL 08/16/2022 00:45 EDT Hgb 13.3 g/dL 08/16/2022 00:45 EDT Hct 39.7 % 08/16/2022 00:45 EDT MCV 91.3 fL 08/16/2022 00:45 EDT MCH 30.6 pg 08/16/2022 00:45 EDT MCHC 33.5 g/dL 08/16/2022 00:45 EDT RDW-CV 13.2 % 08/16/2022 00:45 EDT Platelets 228 K/mcL 08/16/2022 00:45 EDT MPV 8.9 fL 08/16/2022 00:45 EDT Neutro Auto 87.0 % 08/16/2022 00:45 EDT Lymph Auto 10.0 % 08/16/2022 00:45 EDT Martin Auto 1.5 % 08/16/2022 00:45 EDT Eos, Auto 0.00 % 08/16/2022 00:45 EDT Basophil Auto 0.3 % 08/16/2022 00:45 EDT Imm Gran Auto 1.2 % 08/16/2022 00:45 EDT Neutro Absolute 5.2 K/mcL 08/16/2022 00:45 EDT Lymph Absolute 0.6 K/mcL 08/16/2022 00:45 EDT Martin Absolute 0.1 K/mcL 08/16/2022 00:45 EDT Eos Absolute 0.0 K/mcL 08/16/2022 00:45 EDT Baso Absolute 0.0 K/mcL 08/16/2022 00:45 EDT Imm Gran Absolute 0.07 08/16/2022 00:45 EDT Slide Review Not Indicated 08/16/2022 00:45 EDT Sodium Level 136 mmol/L 08/16/2022 00:45 EDT Potassium Level 4.7 mmol/L 08/16/2022 00:45 EDT Chloride Level 103 mmol/L 08/16/2022 00:45 EDT CO2 26 mmol/L 08/16/2022 00:45 EDT Alk Phos 70 IntlUnit/L 08/16/2022 00:45 EDT AST 23 IntlUnit/L 08/16/2022 00:45 EDT ALT 16 IntlUnit/L 08/16/2022 00:45 EDT BUN 28 mg/dL 08/16/2022 00:45 EDT Glucose Level 209 mg/dL 08/16/2022 00:45 EDT Creatinine Level 1.18 mg/dL 08/16/2022 00:45 EDT BUN/Creat Ratio 23.7 08/16/2022 00:45 EDT Calcium Level 9.5 mg/dL 08/16/2022 00:45 EDT Protein Total 7.5 g/dL 08/16/2022 00:45 EDT Albumin Level 4.4 g/dL 08/16/2022 00:45 EDT Globulin 3.1 08/16/2022 00:45 EDT A/G Ratio 1.4 08/16/2022 00:45 EDT Bilirubin Total 0.9 mg/dL 08/16/2022 00:45 EDT Anion Gap 7.0 08/16/2022 00:45 EDT Magnesium Level 2.2 mg/dL 08/16/2022 00:45 EDT Osmolality 284 mOsm/kg 08/16/2022 00:45 EDT eGFR CKD-EPI 66 mL/min/1.73 m2 08/16/2022 00:45 EDT Patient/Lung Puller Signature Patient Name:TULIO SIERRARyan Gonzalez I have received this information and my questions have been answered. Patient/Lung Puller Name: Patient/Lung Puller Signature: Relationship to Patient: Witness Name/Signature: Date: Electronically Signed on: 08/16/2022 02:00 EDTSigned by:AF CT Head WO contrast * Sahara Katz MD: VERIFY, VERIFY Event Display: Report PROCEDURE INFORMATION: Exam: CT Head Without Contrast Exam date and time: 08/15/2022 11:40 PM Age: 71 years old Clinical indication: Condition or disease; History of cancer (specify primary cancer site): ; Additional info: Ho CA, extremity paresthesia TECHNIQUE: Imaging protocol: Computed tomography of the head without contrast. Radiation optimization: All CT scans at this facility use at least one of these dose optimization techniques: automated exposure control; mA and/or kV adjustment per patient size (includes targeted exams where dose is matched to clinical indication); or iterative reconstruction. REPORTING DATA: Count of CT and Cardiac NM exams in prior 12 months: This patient has received 0 known CTs and 0 known cardiac nuclear medicine studies in the 12 months prior to the current study. 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 This partially obscures overlying bony and soft-tissue detail. Brain: There is mild diffuse heterogeneity of the white matter attenuation, consistent with chronic white matter microangiopathic ischemic changes. There is mild diffuse cerebral atrophy present. There is no evidence of intracranial hemorrhage. There is no evidence of acute intracranial injury or other pathologic process. There is no evidence of an acute ischemic event. Cerebral ventricles: The ventricular system demonstrates mild diffuse compensatory enlargement. Paranasal sinuses: Mucoperiosteal thickening consistent with chronic sinusitis. No air-fluid levels to suggest evidence of acute sinusitis. Mastoid air cells: The mastoid aircells are normal. Orbital cavities: The orbits are normal without evidence of fracture. There is no evidence of retro-bulbar hemorrhage. There is no evidence of globe or lens injury. Bones/joints: Sutures present within the left temporal fossa. The bony cranium shows no evidence of injury or other acute pathologic processes. Soft tissues: The extracranial soft tissues are normal. IMPRESSION: 1. No evidence of an acute intracranial abnormality. 2. There is mild age-related atrophy and chronic white matter ischemic changes, with compensatory ventricular dilation. 3. 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 This partially obscures overlying bony and soft-tissue detail. THIS DOCUMENT HAS BEEN ELECTRONICALLY SIGNED BY SAHARA KATZ MD on 08/16/2022 12:18 AM Final Signed by: Sahara Katz MD Signed (Electronic Signature): 08/16/2022 0:18 am Patient Care team information Care Team Personnel Name: Tara Joya MD Position: No Access Member Role: Primary Care Physician Address: Address: [address] [place] [id number] Name: Lucy Ayala MD Position: Physician Member Role: ED Physician Address: Address: [address] [place] [id number] Name: Ward Garza Position: Nurse Member Role: ED Nurse
--- OUTSIDE RECORDS SUMMARY | 2023-05-05 07:57 | XMS_ITS | Continuity of Care Document ---
Author Name Unknown Organization [facility] Address [address] [place] [id number] Care Team Providers Care Home Supervisor Name Role Phone Toan ROMERO, Tara Espino Primary Care Physician Encounter [facility] NBR [id number] Date(s): 10/08/22 - 10/08/[address] [address] Discharge Disposition: Home or Self Care Attending Physician: Unavailable, Physician Admitting Physician: Unavailable, Physician Allergies, Adverse Reactions, Alerts Substance Reaction Severity [...] 0 Refill(s) Start Date: 02/10/22 Status: Ordered Results Laboratory List Name Date CBC w/ Diff 10/08/22 Comprehensive Metabolic Panel 10/08/22 Automated Diff 10/08/22 Most recent to oldest [Reference Range]: 1 WBC [4.8-10.8 K/mcL] 8.1 K/mcL (10/08/22 1:41 PM) RBC [4.20-6.10 Million/mcL] 4.27 Million /mcL (10/08/22 1:41 PM) Neutro Auto [42.2-75.2 %] 72.4 % (10/08/22 1:41 PM) Lymph Auto [20.5-51.1 %] 14.2 % *LOW* (10/08/22 1:41 PM) [place] Auto [1.7-9.3 %] 8.4 % (10/08/22 1:41 PM) Basophil Auto [0.0-0.8 %] 0.7 % (10/08/22 1:41 PM) BUN [8-26 mg/dL] 19 mg/dL (10/08/22 1:41 PM) Glucose Level [74-106 mg/dL] 273 mg/dL *HI* (10/08/22 1:41 PM) Potassium Level [3.5-5.1 mmol/L] 3.8 mmo l/L (10/08/22 1:41 PM) Baso Absolute [0.0-0.2 K/mcL] 0.1 K/mcL (10/08/22 1:41 PM) MCV [80.0-94.0 fL] 89.0 fL (10/08/22 1:41 PM) AST [15-41 IntlUnit/L] 20 IntlUnit/L (10/08/22 1:41 PM) ALT [17-63 IntlUnit/L] 16 IntlUnit/L *LOW* (10/08/22 1:41 PM) MCHC [32.0-36.0 g/dL] 35.3 g/dL (10/08/22 1:41 PM) Osmolality [275-295 mOsm/kg] 280 mOsm/kg (10/08/22 1:41 PM) Sodium Level [134-143 mmol/L] 134 mmol/L (10/08/22 1:41 PM) Lymph Absolute [1.2-3.4 K/mcL] 1.2 K/mcL (10/08/22 1:41 PM) Hct [42.0-52.0 %] 38.0 % *LOW* (10/08/22 1:41 PM) Calcium Level [8.9-10.3 mg/dL] 9.2 mg/dL (10/08/22 1:41 PM) [place] Absolute [0.1-0.6 K/mcL] 0.7 K/mcL *HI* (10/08/22 1:41 PM) Albumin Level [3.5-5.0 g/dL] 3.8 g/dL (10/08/22 1:41 PM) Protein Total [6.5-8.1 g/dL] 6.5 g/dL (10/08/22 1:41 PM) MCH [27.0-31.0 pg] 31.4 pg *HI* (10/08/22 1:41 PM) Neutro Absolute [1.4-6.5 K/mcL] 5.9 K/mc L (10/08/22 1:41 PM) Bilirubin Total [0.2-1.2 mg/dL] 0.7 mg/d L (10/08/22 1:41 PM) Hgb [14.0-18.0 g/dL] 13.4 g/dL *LOW* (10/08/22 1:41 PM) Alk Phos [38-130 IntlUnit/L] 71 IntlUnit /L (10/08/22 1:41 PM) MPV [7.4-10.4 fL] 8.6 fL (10/08/22 1:41 PM) Platelets [130-400 K/mcL] 204 K/mcL (10/08/22 1:41 PM) CO2 [22-32 mmol/L] 22 mmol/L (10/08/22 1:41 PM) Eos Absolute [0.0-0.2 K/mcL] 0.2 K/mcL (10/08/22 1:41 PM) Chloride Level [98-111 mmol/L] 103 mmol/ L (10/08/22 1:41 PM) RDW-CV [11.5-14.5 %] 12.7 % (10/08/22 1:41 PM) A/G Ratio 1.4 *NA* (10/08/22 1:41 PM) BUN/Creat Ratio [8.0-20.0] 15.8 (10/08/22 1:41 PM) Globulin 2.7 *NA* (10/08/22 1:41 PM) Imm Gran Absolute 0.16 *NA* (10/08/22 1:41 PM) Imm Gran Auto [0.0-0.5 %] 2.0 % *HI* (10/08/22 1:41 PM) Creatinine Level [0.61-1.24 mg/dL] 1.20 mg/dL (10/08/22 1:41 PM) Anion Gap [3.0-12.0] 9.0 (10/08/22 1:41 PM) Eos, Auto [0.00-3.00 %] 2.30 % (10/08/22 1:41 PM) eGFR CKD-EPI [>=60 mL/min/1.73 m2] 65 mL /min/1.73 m2 (10/08/22 1:41 PM) Social History Social History Type Response Tobacco Former tobacco user Tobacco Use:. Sex Patient Care team information Care Team Personnel Name: Tara Joya MD Position: No Access Member Role: Primary Care Physician Address: Address: [address] [place] [phone] [place] Care Team Related Persons Name: KENNETH SIERRA
--- OUTSIDE RECORDS SUMMARY | 2023-05-05 07:57 | XMS_ITS | Continuity of Care Document ---
Author Name Unknown Organization [facility] Address [address] [place] [address] Care Team Providers Care Engineering Coordinator Name Role Phone LACI ROMERO, ALEX Espino Primary Care Physician Encounter [facility] NBR [id number] Date(s): 01/19/23 - 01/19/23 [facility] [address] [place], [place] [address] Encounter Diagnosis Laceration of index finger(Discharge Diagnosis) - 01/19/23 Visit for suture removal(Discharge Diagnosis) - 01/19/23 Discharge Disposition: Home or Self Care Attending Physician: Jewels Lutz PA-C Allergies, Adverse Reactions, Alerts Substance Reaction Severity [...] 0 Refill(s) Start Date: 02/10/22 Status: Ordered cephalexin 500 mg oral tablet 500 mg = 1 tab, Oral, QID, X 7 days, # 28 tab, 0 Refill(s), 01/20/23 3:23:00 PM CDT, Pharmacy: [id number], 175, cm, 01/13/23 15:05:00 EDT, Height/Length Dosing, 72.5, kg, 01/13/23 15:05:00 EDT, Weight Dosing Start Date: 01/13/23 Stop Date: 01/20/23 Status: Ordered dexamethasone 4 mg oral tablet [...] 0 Refill(s) Start Date: 02/10/22 Status: Ordered silodosin 8 mg oral capsule 0 Refill(s) Start Date: 01/13/23 Status: Ordered Vital Signs Most recent to oldest [Reference Range]: 1 Temperature Tympanic [36.6-37.9 Deg C] 3 6.9 Deg C (01/19/23 11:59 AM) Peripheral Pulse Rate [60-100 bpm] 73 bp m (01/19/23 11:59 AM) Blood Pressure [90-140/60-90 mmHg] 136/6 7mmHg (01/19/23 11:59 AM) Mean Arterial Pressure, Cuff [65-140 mmH g] 90 mmHg (01/19/23 11:59 AM) Weight 72.57 kg (01/19/23 11:59 AM) Weight Measured (lbs) 159.989 lb (01/19/23 11:59 AM) Weight Dosing 72.570 kg (01/19/23 11:59 AM) Social History Social History Type Response Tobacco Former tobacco user Tobacco Use:. Sex Physician Outpatient Note * Jewels Lutz PA-C: PERFORM Event Display: Office Clinic Note Physician Authored Date: CAROLYN SIERRA :1950 Age:72 years Sex:Male Visit Date:01/19/2023 Primary Care Physician: LACI ROMERO ([facility]), ALEX Espino Chief Complaint pt following up on ed vist from01/13/23. History of Present Illness This is a 72-year-old male who presents for suture removal. ??He was seen in the ED on 01-13-2023??after sustaining??a laceration to his second, third, fourth??left hand??fingertips??with a table saw. ??He was put on a course of antibiotics and given a tetanus shot.?? The laceration of his left index finger was repaired with 5 sutures.?? Hemostat was applied to??digits??3 and 4.?? Patient has no problems with the site. ??He has not had much pain or any signs of infection Physical Exam Vitals & Measurements T:??36.9?C ??(Tympanic)?? HR:??73??(Peripheral)?? BP:??136/67?? SpO2:??98%?? WT:??72.57??kg?? General: Alert and oriented x3, no acute distress, well-nourished and hydrated Extremities: Examination of the left??pad of the index finger reveals 5 sutures clean, dry, intact.??There is no surrounding edema, erythema, warmth, drainage, streaking.?? Range of motion in digitsintact.?? Healing wounds third and fourth digits without necrosis, redness, warmth, drainage, streaking. ??Range of motion intact Assessment/Plan 1.??Laceration of index finger??S61.218A Sutures removed without difficulty. ??No evidence of infection.?? Patient??was instructed to continue to keep the areas??clean with antibacterial soap, dry, covered. ??Finish course of antibiotics. ??Follow-up for any acute concerns or worsening symptoms 2.??Visit for suture removal??Z48.02 Problem List/Past Medical History Ongoing No qualifying data Historical No qualifying data Medications amitriptyline 50 mg oral tablet ARIPiprazole 30 mg oral tablet, 30 mg= 1 tab, Oral, Daily atorvastatin 20 mg oral tablet cephalexin 500 mg oral tablet, 500 mg= 1 tab, Oral, QID dexamethasone 4 mg oral tablet fenofibrate 145 mg oral tablet lamoTRIgine 200 mg oral tablet Metoprolol Succinate ER 25 mg oral tablet, extended release, 25 mg= 1 tab, Oral, Daily nitroglycerin 0.4 mg sublingual tablet silodosin 8 mg oral capsule Allergies codeine??(Itching) penicillin??(Itching) Social History Alcohol Never Electronic Cigarette/Vaping Electronic Cigarette Use: Never. Tobacco Former tobacco user Tobacco Use:. Electronically Signed on 01/19/23 12:30 PM Jewels Lutz PA-C Patient Care team information Care Team Personnel Name: LACI ROMERO ([facility]), ALEX Espino Position: No Access Member Role: Primary Care Physician Address: Address: [address] [place] [address] Care Team Related Persons Name: KENNETH SIERRA
--- OUTSIDE RECORDS SUMMARY | 2023-05-05 07:57 | XMS_ITS | Continuity of Care Document ---
Author Name Unknown Organization [facility] Address [address] [place] [id number] Care Team Providers Care Color Maker Name Role Phone LACI ROMERO, ALEX Espino Primary Care Physician Encounter [facility] NBR [id number] Date(s): 01/13/23 - 01/13/[address] [id number] Encounter Diagnosis Laceration of hand without complication, including fingers(Discharge Diagnosis) - 01/13/23 Laceration without foreign body of unspecified finger without damage to nail, initial encounter(Discharge Diagnosis) - 01/13/23 Laceration without foreign body of left index finger without damage to nail, initial encounter(Final) - Laceration without foreign body of left middle finger without damage to nail, initial encounter(Final) - Laceration without foreign body of left ring finger without damage to nail, initial encounter(Final) - Personal history of nicotine dependence(Final) - Contact with workbench tool, initial encounter(Final) - Discharge Disposition: Home or Self Care Attending Physician: Eleazar Wang MD Admitting Physician: Eleazar Wang MD Allergies, Adverse Reactions, Alerts Substance Reaction [...] 0 Refill(s), 01/20/23 3:23:00 PM CDT, Pharmacy: [id number], 175, cm, 01/13/23 15:05:00 [...] 0 Refill(s) Start Date: 01/13/23 Status: Ordered Mental Status 01/13/23 Eye Opening Response Jay Spontaneous ly Best Verbal Response Weaver Oriented Best Motor Response Weaver Obeys comman ds Weaver Coma Score 15 Results Radiology Reports * Exam Date Time Procedure Performing Provider Status 01/13/23 3:24 PM XR Hand Complete 3+ Views Left Inés Cox; Auth (Verified) Notes: (XR Hand Complete 3+ Views Left) Reason For Exam: lacerations, finger injury XR Hand Complete 3+ Views Left EXAM DESCRIPTION: XR Hand Complete 3+ Views Left 01/13/2023 INDICATION: LACERATIONS, FINGER INJURY COMPARISON: Left finger examination from 06/11/2006 IMPRESSION: No acute fracture or dislocation Small soft tissue opacity adjacent to the radial aspect of the 2nd distal phalanx which may reflect small bone fragment or soft tissue foreign body. Distal 2nd digit soft tissue swelling with soft tissue defect consistent with laceration. 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 Otherwise no significant arthritic changes in the hand region. JOB #: [id number] Final Signed by: Craig Williamson MD Signed (Electronic Signature): 01/13/2023 3:29 pm Vital Signs Most recent to oldest [Reference Range]: 1 Temperature Temporal Artery [36-38 Deg C ] 36 Deg C (01/13/23 2:42 PM) Peripheral Pulse Rate [60-100 bpm] 86 bp m (01/13/23 2:42 PM) Respiratory Rate [12-24 br/min] 18 br/mi n (01/13/23 2:42 PM) Blood Pressure [90-140/60-90 mmHg] 180/9 0mmHg *HI* (01/13/23 2:42 PM) Mean Arterial Pressure, Cuff [65-140 mmH g] 120 mmHg (01/13/23 2:42 PM) Weight 72.50 kg (01/13/23 2:42 PM) Weight Dosing 72.50 kg (01/13/23 3:05 PM) Height 175.000 cm (01/13/23 2:42 PM) Height/Length Dosing 175.000 cm (01/13/23 3:05 PM) Body Mass Index 24.000 kg/m2 (01/13/23 2:42 PM) Social History Social History Type Response Tobacco Former tobacco user Tobacco Use:. Sex Hospital Discharge Instructions Patient Education 01/13/2023 15:25:35 Laceration Care, Adult Laceration Care, Adult A laceration is a cut that may go through all layers of the skin and into the tissue that is right under the skin. Some lacerations heal on their own. Others need to be closed with stitches (sutures), brandt, skin adhesive strips, or skin glue. Proper care of a laceration reduces the risk for infection, helps the laceration heal better, and may prevent scarring. General tips ??? Keep the wound clean and dry. ??? Do not scratch or pick at the wound. ??? Wash your hands with soap and water for at least 20 seconds before and after touching your wound or changing your bandage (dressing). If soap and water are not available, use hand compliance engineer. ??? Do not usedisinfectants or antiseptics, such as rubbing alcohol, to clean your wound unless told by your health care provider. ??? If you were given a dressing, you should change it at least once a day, or as told by your health care provider. You should also change it if it becomes wet or dirty. How to care for your laceration If sutures or brandt were used: ??? Keep the wound completely dry for the first 24 hours, or as told by your health care provider. After that time, you may shower or bathe. Do not soak your wound in water until after the sutures orstaples have been removed. ??? Clean the wound once each day, or as told by your health care provider. To do this: ??? Wash the wound with soap and water. ??? Rinse the wound with water to remove all soap. ??? Pat the wound dry with a clean towel. Do not rub the wound. ??? After cleaning the wound, apply a thin layer of antibiotic ointment, other topical ointments, or a non-adherent dressing as told by your health care provider. This will help prevent infection andkeep the dressing from sticking to the wound. ??? Have the sutures or brandt removed as told by your health care provider. Do not remove suturesor brandt yourself. If skin adhesive strips were used: ??? Do not get the skin adhesive strips wet. You may shower or bathe, but keep the wound dry. ??? If the wound gets wet, pat it dry with a clean towel. Do not rub the wound. ??? Skin adhesive strips fall off on their own. If adhesive strip edges start to loosen and curl up, you may trim the loose edges. Do not remove adhesive strips completely unless your health care provider tells you to do that. If skin glue was used: ??? You may shower or bathe, but try to keep the wound dry. Do not soak the wound in water. ??? After showering or bathing, pat the wound dry with a clean towel. Do not rub the wound. ??? Do not do any activities that will make you sweat a lot until the skin glue has fallen off. ??? Do not apply liquid, cream, or ointment medicine to the wound while the skin glue is in place. Doing this may loosen the film before the wound has healed. ??? If a dressing is placed over the wound, do not apply tape directly over the skin glue. Doing this may cause the glue to be pulled off before the wound has healed. ??? Do not pick at the glue. Skin glue usually remains in place for 5???10 days and then falls off the skin. Follow these instructions at home: Medicines ??? Take miry-cbj-gxkrocc and prescription medicines only as told by your health care provider. ??? If you were prescribed an antibiotic medicine or ointment, take or apply it as told by your health care provider. Do not stop using it even if your condition improves. Managing pain and swelling ??? If directed, put ice on the injured area. To do this: ??? Put ice in a plastic bag. ??? Place a towel between your skin and the bag. ??? Leave the ice on for 20 minutes, 2???3 times a day. ??? Remove the ice if your skin turns bright red. This is very important. If you cannot feel pain, heat, or cold, you have a greater risk of damage to the area. ??? Raise (elevate) the injured area above the level of your heart while you are sitting or lying down for the first 24???48 hours after the laceration is repaired. General instructions ??? Avoid any activity that could cause your wound to reopen. ??? Check your wound every day for signs of infection. Watch for: ??? More redness, swelling, or pain. ??? Fluid or blood. ??? Warmth. ??? Pus or a bad smell. ??? Keep all follow-up visits. This is important. Contact a health care provider if: ??? You received a tetanus shot and you have swelling, severe pain, redness, or bleeding at the injection site. ??? Your closed wound breaks open. ??? You have any of these signs of infection: ??? More redness, swelling, or pain around your wound. ??? Fluid or blood coming from your wound. ??? Warmth coming from your wound. ??? Pus or a bad smell coming from your wound. ??? A fever. ??? You notice something coming out of the wound, such as wood or glass. ??? Your pain is not controlled with medicine. ??? You notice a change in the color of your skin near your wound. ??? You need to change the dressing often. ??? You develop a new rash. ??? You have numbness around the wound. Get help right away if: ??? You develop severe swelling around the wound. ??? Your pain suddenly increases and is severe. ??? You develop painful lumps near the wound or on skin anywhere else on your body. ??? You have a red streak going away from your wound. ??? The wound is on your hand or foot, and you cannot properly move a finger or toe. ??? The wound is on your hand or foot, and you notice that your fingers or toes look pale or bluish. Summary ??? A laceration is a cut that may go through all layers of the skin and into the tissue that is right under the skin. ??? Some lacerations heal on their own. Others need to be closed with stitches (sutures), brandt, skin adhesive strips, or skin glue. ??? Proper care of a laceration reduces the risk of infection, helps the laceration heal better, and may prevent scarring. This information is not intended to replace advice given to you by your health care provider. Make sure you discuss any questions you have with your health care provider. Document Revised: 05/14/2021 Document Reviewed: 05/14/2021 Elsevier Patient Education ?? 2022 [employer] Discharge instructions * Event Display: Discharge Instructions Physician Emergency department Note * Claribel Bowling, INDEPENDENT MARKETING CONSULTANT: PERFORM Event Display: ED Note Physician Authored Date: [id number] CAROLYN SIERRA :1950 Age:72 years Sex:Male Visit Date:01/13/2023 Primary Care Physician: LACI ROMERO ([facility]), ALEX Espino Basic Information Time Seen: Claribel Bowling, INDEPENDENT MARKETING CONSULTANT / 01/13/2023 14:48 Chief Complaint Lacerations to index, middle and ring fingers on L hand in fingertips. +CSM, done with handsaw. States uptd on tetanus. Hemostatic on admission. History Of Present Illness: Patient is a 72-year-old male who presents today with chief complaint of??lacerations to multiple fingertips of the left hand. ??He reports that he was utilizing a hands??and accidentally struck his hand.?? He is got??positive flexion and extension of all digits. ??His tetanus is up-to-date. Review of Systems: see hpi Physical Exam Vitals & Measurements T:??36?C ??(Temporal Artery)?? HR:??86??(Peripheral)?? RR:??18?? BP:??180/90?? SpO2:??97%?? HT:??175.000??cm?? WT:??72.50??kg?? BMI:??24.000?? O2 Therapy:??Room air?? Exam does??note an approximate??3 cm laceration to the second distal??phalanx, superficial??avulsions to this??third and fourth distal??fingertip.?? Flexion and extension are??intact.??sesnation intact. Medical Decision Making: Patient was evaluated for a laceration to the left??second third and fourth??fingertips. ??An x-raywas obtained which does??reflect a small??chip fracture to the distal phalanx of the second??digit.?? Laceration was repaired without incident, see procedure documentation. ??He was started on cephalexin for antibiotic coverage. ??His tetanus is up-to-date.?? We will recheck with me on Tuesday for a wound check. Procedure PROCEDURE NOTE: Laceration Repair Performed by: Self [place] Protocol: Time out was performed. Patient, side, site and procedure was verified. Description of Wound(s):??2??cm??simple??linear??wound Pre-procedure Anesthesia:??None? The wound was prepped and draped in sterile fashion. Anesthesia was achieved with??_?mL of??1% lidocaine??via??local. The wound was then copiously irrigated with??saline??solution and explored. There were??no??foreign bodies noted and??no??tendon injuries. The wound was reapproximated in??one??layer(s) utilizing #??5??sutures??with??interrupted??technique.??No??sharp debridement was required.?Second and third distal??digits with small avulsion??with a hemostat applied. ??the patient tolerated the procedure without complication and a dressing was placed. No Qualifying Data Assessment/Plan 1.??Laceration of hand without complication, including fingers??S61.419A Laceration without foreign body of unspecified finger without damage to nail, initial encounter??S61.219A Orders: cephalexin 500 mg oral tablet, 500 mg = 1 tab, Oral, QID, X 7 days, # 28 tab, 0 Refill(s), 01/21/2316:23:00 EDT, Pharmacy: [id number], 175, cm, 01/13/23 15:05:00 EDT, Height/Length Dosing, 72.5, kg, 01/13/23 15:05:00 EDT, Weight Dosing Patient Education Laceration Care, Adult Medication Reconciliation New Prescription cephalexin (cephalexin 500 mg oral tablet)1 tab Oral (given by mouth) 4 times a day for 7 Days. Refills: 0. ?? Unchanged amitriptyline (amitriptyline 50 mg oral tablet)270 EA, TAKE 3 TABLETS BY MOUTH AT BEDTIME FOR SLEEPAND FOR DEPRESSION. ?? ARIPiprazole (ARIPiprazole 30 mg oral tablet)1 tab Oral (given by mouth) every day. ?? atorvastatin (atorvastatin 20 mg oral tablet)180 EA, TAKE 2 TABLETS BY MOUTH ONCE DAILY FOR CHOLESTEROL. ?? dexamethasone (dexamethasone 4 mg oral tablet)6 EA, TAKE 1 TABLET BY MOUTH TWICE DAILY WITH MEALS IN THE EVENING AND IN THE MORNING THE DAY BEFORE, DAY OF, AND DAY AFTER EACH CEMIPLIMAB INFUSION.. ?? fenofibrate (fenofibrate 145 mg oral tablet)90 EA, TAKE 1 TABLET BY MOUTH ONCE DAILY FOR HIGH TRIGLYCERIDES. ?? lamoTRIgine (lamoTRIgine 200 mg oral tablet)180 EA, TAKE 1 TABLET BY MOUTH TWICE DAILY FOR BIPOLAR DISORDER. ?? metoprolol (Metoprolol Succinate ER 25 mg oral tablet, extended release)1 tab Oral (given by mouth)every day. ?? nitroglycerin (nitroglycerin 0.4 mg sublingual tablet)25 EA, DISSOLVE ONE TABLET UNDER THE TONGUE EVERY 5 MINUTES NEEDED FOR CHEST PAIN. DO NOT EXCEED A TOTAL OF 3 DOSES IN 15 MINUTES . IF NO RELIEF GO TO EMERGENCY ROOM. ?? silodosin (silodosin 8 mg oral capsule) Problem List/Past Medical History Ongoing No qualifying data Historical No qualifying data Allergies codeine??(Itching) penicillin??(Itching) Social History Alcohol Never Electronic Cigarette/Vaping Electronic Cigarette Use: Never. Tobacco Former tobacco user Tobacco Use:. Diagnostic Results XR Hand Complete 3+ Views Left 01/13/2023 15:31 EDT XR Hand Complete 3+ Views Left ?? 01/13/23 15:29:14 EXAM DESCRIPTION: XR Hand Complete 3+ Views Left ?? 01/13/2023 ?? INDICATION: LACERATIONS, FINGER INJURY ?? COMPARISON: Left finger examination from 06/11/2006 ?? IMPRESSION: No acute fracture or dislocation ?? Small soft tissue opacity adjacent to the radial aspect of the 2nd distal phalanx which may reflect small bone fragment or soft tissue foreign body. ?? Distal 2nd digit soft tissue swelling with soft tissue defect consistent with laceration. ?? 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 Otherwise no significant arthritic changes in the hand region. ? JOB #: [id number] Claribel Bowling APRN Emergency department Discharge instructions * Claribel Bowling APRN: PERFORM Event Display: ED Discharge Information Authored Date: [id number] CAROLYN SIERRA :1950 Age:72 years Sex:Male Visit Date:01/13/2023 Primary Care Physician: LACI ROMERO ([facility]), ALEX Espino Discharge Instructions We would like to thank you for allowing us to assist you with your healthcare needs. The following includes patient education materials and information regarding your injury/illness. Discharge Vitals Temperature??(Temporal Artery) 96.8 ??F (36 ??C) Heart Rate??(Peripheral) 86 Respiratory Rate?? 18 Blood Pressure?? 180/90?? Height?? 68.90 in (175.000 cm) Weight?? 159.86 lb (72.50 kg) BMI?? 24.000 Allergies codeine??(Itching) penicillin??(Itching) What to Do Next Instructions from Your Care Team Please keep your dressing in place for 48 hours then keep the area covered with??gauze bandage.?? Take antibiotics??as prescribed. ??Your fingers have some swelling from the injury you will want to elevate your hand over the next??24 to 48 hours. please check back with me at the urgent care on Tuesday for a wound recheck, located down by the cafeteria.?? You should have your sutures removed in 7 to 10 days.?? Tylenol for discomfort. You were treated today on an emergency [...] What How Much When Instructions Next Dose New cephalexin (cephalexin 500 mg oral tablet) 1 tab Oral (given by mouth) 4 times a day Duration: 7 Days Pickup at [id number] Unchanged amitriptyline (amitriptyline 50 mg oral tablet) [...] DAY AFTER EACH CEMIPLIMAB INFUSION. ?? Unchanged fenofibrate (fenofibrate 145 mg oral [...] NO RELIEF GO TO EMERGENCY ROOM ?? Unchanged silodosin (silodosin 8 mg oral capsule) Pharmacy Information [facility]: [address] [place], [place] [phone] Education Materials Laceration Care, Adult A laceration is a cut that may go through all layers of the skin and into the tissue that is right under the skin. Some lacerations heal on their own. Others need to be closed with stitches (sutures), brandt, skin adhesive strips, or skin glue. Proper care of a laceration reduces the risk for infection, helps the laceration heal better, and may prevent scarring. General tips ? Keep the wound clean and dry. ? Do not scratch or pick at the wound. ? Wash your hands with soap and water for at least 20 seconds before and after touching your wound orchanging your bandage (dressing). If soap and water are not available, use hand compliance engineer. ? Do not usedisinfectants or antiseptics, such as rubbing alcohol, to clean your wound unless told byyour health care provider. ? If you were given a dressing, you should change it at least once a day, or as told by your health care provider. You should also change it if it becomes wet or dirty. How to care for your laceration If sutures or brandt were used: ? Keep the wound completely dry for the first 24 hours, or as told by your health care provider. After that time, you may shower or bathe. Do not soak your wound in water until after the sutures or brandt have been removed. ? Clean the wound once each day, or as told by your health care provider. To do this: ? Wash the wound with soap and water. ? Rinse the wound with water to remove all soap. ? Pat the wound dry with a clean towel. Do not rub the wound. ? After cleaning the wound, apply a thin layer of antibiotic ointment, other topical ointments, or a non-adherent dressing as told by your health care provider. This will help prevent infection and keep the dressing from sticking to the wound. ? Have the sutures or brandt removed as told by your health care provider. Do not remove sutures or brandt yourself. If skin adhesive strips were used: ? Do not get the skin adhesive strips wet. You may shower or bathe, but keep the wound dry. ? If the wound gets wet, pat it dry with a clean towel. Do not rub the wound. ? Skin adhesive strips fall off on their own. If adhesive strip edges start to loosen and curl up, you may trim the loose edges. Do not remove adhesive strips completely unless your health care provider tells you to do that. If skin glue was used: ? You may shower or bathe, but try to keep the wound dry. Do not soak the wound in water. ? After showering or bathing, pat the wound dry with a clean towel. Do not rub the wound. ? Do not do any activities that will make you sweat a lot until the skin glue has fallen off. ? Do not apply liquid, cream, or ointment medicine to the wound while the skin glue is in place. Doing this may loosen the film before the wound has healed. ? If a dressing is placed over the wound, do not apply tape directly over the skin glue. Doing this may cause the glue to be pulled off before the wound has healed. ? Do not pick at the glue. Skin glue usually remains in place for 5???10 days and then falls off the skin. Follow these instructions at home: Medicines ? Take wqrc-qkw-ybcppzy and prescription medicines only as told by your health care provider. ? If you were prescribed an antibiotic medicine or ointment, take or apply it as told by your health care provider. Do not stop using it even if your condition improves. Managing pain and swelling ? If directed, put ice on the injured area. To do this: ? Put ice in a plastic bag. ? Place a towel between your skin and the bag. ? Leave the ice on for 20 minutes, 2???3 times a day. ? Remove the ice if your skin turns bright red. This is very important. If you cannot feel pain, heat, or cold, you have a greater risk of damage to the area. ? Raise (elevate) the injured area above the level of your heart while you are sitting or lying down for the first 24???48 hours after the laceration is repaired. General instructions ? Avoid any activity that could cause your wound to reopen. ? Check your wound every day for signs of infection. Watch for: ? More redness, swelling, or pain. ? Fluid or blood. ? Warmth. ? Pus or a bad smell. ? Keep all follow-up visits. This is important. Contact a health care provider if: ? You received a tetanus shot and you have swelling, severe pain, redness, or bleeding at the injection site. ? Your closed wound breaks open. ? You have any of these signs of infection: ? More redness, swelling, or pain around your wound. ? Fluid or blood coming from your wound. ? Warmth coming from your wound. ? Pus or a bad smell coming from your wound. ? A fever. ? You notice something coming out of the wound, such as wood or glass. ? Your pain is not controlled with medicine. ? You notice a change in the color of your skin near your wound. ? You need to change the dressing often. ? You develop a new rash. ? You have numbness around the wound. Get help right away if: ? You develop severe swelling around the wound. ? Your pain suddenly increases and is severe. ? You develop painful lumps near the wound or on skin anywhere else on your body. ? You have a red streak going away from your wound. ? The wound is on your hand or foot, and you cannot properly move a finger or toe. ? The wound is on your hand or foot, and you notice that your fingers or toes look pale or bluish. Summary ? A laceration is a cut that may go through all layers of the skin and into the tissue that is right under the skin. ? Some lacerations heal on their own. Others need to be closed with stitches (sutures), brandt, skinadhesive strips, or skin glue. ? Proper care of a laceration reduces the risk of infection, helps the laceration heal better, and may prevent scarring. This information is not intended to replace advice given to you by your health care provider. Make sure you discuss any questions you have with your health care provider. Document Revised: 05/14/2021 Document Reviewed: 05/14/2021 [employer] Patient Education ?? 2022 [employer] Tests Performed Radiology XR Hand Complete 3+ Views Left 01/13/2023 15:31 EDT Patient/Fluoroscope Operator Signature Patient Name:CAROLYN SIERRA I have received this information and my questions have been answered. Patient/Fluoroscope Operator Name: Patient/Fluoroscope Operator Signature: Relationship to Patient: Witness Name/Signature: Date: Electronically Signed on: 01/13/2023 16:28 EDTSigned by:PATTI Patient Care team information Care Team Personnel Name: LACI ROMERO ([facility]), ALEX Espino Position: No Access Member Role: Primary Care Physician Address: Address: [address] [place] [id number] [place] Name: Claribel Bowling APRN Position: Physician Member Role: Physician Address: Address: [address] [place] [id number] [place] Name: Elaine Vela Position: Nurse Member Role: ED Nurse Care Team Related Persons Name: KENNETH SIERRA
--- OUTSIDE RECORDS SUMMARY | 2023-05-05 07:57 | XMS_ITS | Continuity of Care Document ---
Author Name Unknown Organization [facility] Ambulatory Clinics Address [address] [place] [address] Care Team Providers Care Client Delivery Manager Name Role Phone LACI ROMERO, ALEX Espino Primary Care Physician Encounter [facility] NBR [id number] Date(s): 02/10/22 - 02/10/22 [facility] Ambulatory Clinics [address] [place], [place] [address] Encounter Diagnosis COVID(Discharge Diagnosis) - 02/10/22 Discharge Disposition: Home or Self Care Attending Physician: Zaki Kang. PA Medications amitriptyline 50 mg oral tablet 270 EA, TAKE 3 TABLETS BY MOUTH AT BEDTIME FOR SLEEP AND FOR DEPRESSION, 0 Refill(s) Start Date: 02/10/22 Status: Ordered ARIPiprazole 20 mg oral tablet 90 EA, TAKE 1 TABLET BY MOUTH ONCE DAILY FOR MOOD AND RACING THOUGHTS, 0 Refill(s) Start Date: 02/10/22 Status: Ordered atorvastatin 20 mg oral tablet [...] Date: 02/10/22 Status: Ordered Metoprolol Succinate ER 50 mg oral tablet, extended release 90 EA, TAKE 1 TABLET BY MOUTH ONCE DAILY FOR HEART, 0 Refill(s) Start Date: 02/10/22 Status: Ordered nitroglycerin 0.4 mg sublingual tablet 25 EA, DISSOLVE ONE TABLET UNDER THE TONGUE EVERY 5 MINUTES NEEDED FOR CHEST PAIN. DO NOT EXCEEDA TOTAL OF 3 DOSES IN 15 MINUTES . IF NO RELIEF GO TO EMERGENCY ROOM, 0 Refill(s) Start Date: 02/10/22 Status: Ordered Paxlovid 150 mg-100 mg (300 mg-100 mg Dose) oral tablet 3 tab, Oral, BID, Take two 150 mg nirmatrelvir tablets with one 100 mg ritonavir tablet at the sametime as indicated on the blister cards. Provide Fact Sheet for Patients/Caregivers, X 5 days, # 30 tab, 0 Refill(s), 02/15/22 13:18:00 EST, Pharmacy: [facility]. Start Date: 02/10/22 Stop Date: 02/15/22 Status: Ordered Physician Outpatient Note * Zaki Kang. PA: PERFORM Event Display: Office Clinic Note Physician Authored Date: [id number] CAROLYN SIERRA :1950 Age:71 years Sex:Male Visit Date:02/10/2022 Primary Care Physician: LACI ROMERO, ALEX Espino History of Present Illness Patient referred to the urgent care by his primary provider for treatment for COVID.?? Discussed with both the patient and the patient's . ??Patient is having mild symptoms. ??Including upper respiratory complaints and cough. ??He denies any shortness of breath or dyspnea.?? He is up-to-date onhis vaccines receive his most recent booster shot 3 weeks ago.?? Symptoms started 3 to 4 days ago.?? Both the patient and the patient's deny any history of renal or kidney problems. ??He is currently undergoing treatment for lung cancer.?? The patient's has spoken with his cancer doctor who recommended he start on Paxlovid.?? Patient denies any vomiting or diarrhea.?? Overall states he feels like he has a mild cold. Physical Exam Virtual visit only Assessment/Plan 1.??COVID??U07.1 I reviewed the patient medication list. ??He will need to decrease Abilify by 50% while he is taking antiviral medications. ??Also recommend he stop atorvastatin. ??The patient's was able to read back these instructions to myself.?? I reviewed the risks benefits and alternatives to starting antiviral medications including the medication interactions??as described.?? The patient would like tostart the medication at this time.?? He denies any history of renal or kidney problems they have already cleared this with the patient's cancer treatment.?? Follow-up with primary care as needed.?? The patient has consented to a virtual visit. Ordered: Paxlovid 150 mg-100 mg (300 mg-100 mg Dose) oral tablet, 3 tab, Oral, BID, Take two 150 mg nirmatrelvir tablets with one 100 mg ritonavir tablet at the same time as indicated on the blister cards. Provide Fact Sheet for Patients/Caregivers, X 5 days, # 30 tab, 0 Refill(s), 02/15/22 13:18:00 EST, Pha rmacy: [facility]... ?? Patient Instructions Decrease your Abilify dosage by 50%. ??Stop atorvastatin. Problem List/Past Medical History Ongoing No qualifying data Historical No qualifying data Medications amitriptyline 50 mg oral tablet ARIPiprazole 20 mg oral tablet atorvastatin 20 mg oral tablet dexamethasone 4 mg oral tablet erythromycin 0.5% ophthalmic ointment fenofibrate 145 mg oral tablet lamoTRIgine 200 mg oral tablet Metoprolol Succinate ER 50 mg oral tablet, extended release nitroglycerin 0.4 mg sublingual tablet Paxlovid 150 mg-100 mg (300 mg-100 mg Dose) oral tablet, 3 tab, Oral, BID Allergies No active allergies Electronically Signed on 02/10/22 01:21 PM Zaki VEE Patient Care team information Personnel Name: LACI ROMERO, ALEX Espino Address: Address: [place] [address] [place] [address]-
--- OUTSIDE RECORDS SUMMARY | 2023-05-05 07:57 | XMS_ITS | Continuity of Care Document ---
Author Name Unknown Organization [facility] Address [address] [place] [id number] Care Team Providers Care Drywall Application Supervisor Name Role Phone Toan RMOERO, Tara Espino Primary Care Physician Encounter [facility] NBR [id number] Date(s): 10/01/22 - 10/01/[address] [address] Encounter Diagnosis Dog bite of arm(Discharge Diagnosis) - 10/01/22 Bitten by dog, initial encounter(Discharge Diagnosis) - 10/01/22 Discharge Disposition: Home or Self Care Attending Physician: Ashish De La Cruz MD Admitting Physician: Ashish De La Cruz MD Allergies, Adverse Reactions, Alerts Substance Reaction Severity Status codeine Itching Mild Active penicillin Itching Mild Active Functional Status 10/01/22 Other exposure to Infectious Disease Non e Medications amitriptyline 50 mg oral tablet 270 EA, TAKE 3 TABLETS BY MOUTH AT BEDTIME FOR SLEEP AND FOR DEPRESSION, 0 Refill(s) Start Date: 02/10/22 Status: Ordered amoxicillin 875 mg oral tablet 875 mg = 1 tab, Oral, BID, X 5 days, # 10 tab, 0 Refill(s), 10/06/22 21:35:00 EDT, Pharmacy: [id number], 175, cm, 10/01/22 20:19:00 EDT, Height/Length Dosing, 73, kg, 10/01/22 20:19:00 EDT, Weight Dosing Start Date: 10/01/22 Stop Date: 10/06/22 Status: Ordered ARIPiprazole 30 mg oral tablet [...] 0 Refill(s) Start Date: 02/10/22 Status: Ordered Vital Signs Most recent to oldest [Reference Range]: 1 Temperature Temporal Artery [36-38 Deg C ] 36.0 Deg C (10/01/22 8:05 PM) Peripheral Pulse Rate [60-100 bpm] 71 bp m (10/01/22 8:05 PM) Respiratory Rate [12-24 br/min] 16 br/mi n (10/01/22 8:05 PM) Blood Pressure [90-140/60-90 mmHg] 146/8 7mmHg *HI* (10/01/22 8:05 PM) Weight Dosing 73.00 kg (10/01/22 8:19 PM) Weight Estimated 73.00 kg (10/01/22 8:05 PM) Height/Length Dosing 175.000 cm (10/01/22 8:19 PM) Height/Length Estimated 175.000 cm (7/14/23 8:05 PM) Social History Social History Type Response Tobacco Former tobacco user Tobacco Use:. Sex Physician Emergency department Note * Ashish De La Cruz MD: PERFORM Event Display: ED Note Physician Authored Date: [id number] CAROLYN SIERRA :1950 Age:71 years Sex:Male Visit Date:10/01/2022 Primary Care Physician: Toan ROMERO, Tara Espino Basic Information Time Seen: Ashish De La Cruz MD / 10/01/2022 20:11 Chief Complaint pt reports dog bite to left arm at 1930 this evening. dog UTD on vaccinations per dental detail representative. skin tear to left posterior forearm History Of Present Illness: 71-year-old man??bitten by a large dog??on his left forearm presents with a single puncture wound??into his forearm that is approximately??1/8 of an inch in diameter, as well as a??skin tear of approximately 1 x 2 inches??superficial??in multiple pieces, avulsed.?? Patient has a history of being immunocompromise due to cancer and chemotherapy, as well as??having allowed??aortic murmur (known aortic stenosis).?? As a child he was told he had??an allergic reaction to penicillin which apparently involved itching; he has no recollection??of having taken it??or any similar drug for many decades.??He presents with??no significant bleeding in the wound.?? He is able to range his hand and has good distal sensation color. Review of Systems: Review of Systems: Constitutional: [No fevers,] Eye: [No acute visual complaints] ENT: [No ear pain, nasal congestion, sore throat] Respiratory: [No cough] Cardiovascular: [No Chest pain] Musculoskeletal: [Left arm??forearm??bite/superficial??skin tear, otherwise no acute??limb complaints] Integumentary: [No rashes; avulsion/abrasion/bite wound??puncture??left??forearm] Neurologic: [No focal sensory or motor complaints. Denies syncope] ?? Physical Exam: General: [Alert and oriented, well nourished, no acute distress].?? Eye: [PERRL, EOMI, normal conjunctiva]. 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 Neck: [Ranging neck, normal inspection].?? Lungs: [Clear to auscultation, non-labored respiration, no tachypnea].?? Heart: [Normal rate, regular rhythm, systolic murmur 5/6, gallop or edema]. Abdomen: [Soft, non-tender, non-distended, normal bowel sounds].?? Musculoskeletal: [Normal range of motion and strength,??area of thin skin avulsion/skin tear??approximately??half dollar sized,??1 puncture wound approximately 1/8 inch??in diameter. ??Good range of motion of left hand, wrist forearm elbow. ??No problems ranging shoulder]. Skin: [Skin is warm, dry and pink, no rashes or lesions??apart from left??forearm]. Neurologic: [Awake, alert and oriented X4, normal tone, moving all extremities with good strength].[Ambulation intact]. Psychiatric: [Cooperative, appropriate mood and affect]. Physical Exam Vitals & Measurements T:??36.0?C ??(Temporal Artery)?? HR:??71??(Peripheral)?? RR:??16?? BP:??146/87?? SpO2:??97%?? HT:??175.000??cm?? WT:??73.00??kg??(Estimated)?? Pain Score:??2?? O2 Therapy:??Room air?? Procedure No Qualifying Data Assessment/Plan 1.??Dog bite of arm??S41.159A Ordered: amoxicillin 875 mg oral tablet, 875 mg = 1 tab, Oral, BID, X 5 days, # 10 tab, 0 Refill(s), 10/06/22 21:35:00 EDT, Pharmacy: [id number], 175, cm, 10/01/22 20:19:00 EDT, Height/Length Dosing, 73, kg, 10/01/22 20:19:00 EDT, Weight Dosing ?? Bitten by dog, initial encounter??W54.0XXA ?? Wound irrigated with 1 L of saline, covered with bacitracin ointment.?? Patient??knows dog dental detail representative and dog has had rabies vaccination.?? Patient has??reported history of penicillin allergy as a child; chart reflects??only itching.?? Patient has no recollection??of his allergy.?? I discussed with him g iving him??Augmentin??which I think is a low likelihood of causing a problem??given his past history, or alternatively giving him a 2 drug regimen. ??Patient is comfortable trying Augmentin.?? We gave him 1 tablet??I have written him for 5 more days. ??We observed him for approximately an hour after ??administration of the medication and he had no problems.?? I did reiterate the importance of him taking antibiotic prophylaxis given his??heart murmur as well as his immunocompromised??history being a cancer patient;??if intolerant of Augmentin he should return to emergency for different??antibiotic regimen.?? Okay for discharge. Medication Reconciliation New Prescription amoxicillin (amoxicillin 875 mg oral tablet)1 tab Oral (given by mouth) 2 times a day for 5 Days. Refills: 0. ?? Unchanged amitriptyline (amitriptyline [...] AND DAY AFTER EACH CEMIPLIMAB INFUSION.. ?? erythromycin ophthalmic (erythromycin 0.5% ophthalmic ointment)4 g, INSTILL OINTMENT INTO LEFT EYE TWICE DAILY. ?? fenofibrate (fenofibrate 145 mg oral tablet)90 [...] IF NO RELIEF GO TO EMERGENCY ROOM. Problem List/Past Medical History Ongoing No qualifying data Historical No qualifying data Medication Administration Given amoxicillin-clavulanate 875 mg-125 mg oral tablet, 1 tab, Oral Allergies codeine??(Itching) penicillin??(Itching) Social History Electronic Cigarette/Vaping Electronic Cigarette Use: Never. Tobacco Former tobacco user Tobacco Use:. Electronically Signed on 10/01/22 10:45 PM Ashish De La Cruz MD Emergency department Discharge instructions * Ashish De La Cruz MD: PERFORM Event Display: ED Discharge Information Authored Date: [id number] MARIELACAROLYN :1950 Age:71 years Sex:Male Visit Date:10/01/2022 Primary Care Physician: Tara Joya MD Discharge Instructions We would like to thank you for allowing us to assist you with your healthcare needs. The following includes patient education materials and information regarding your injury/illness. Diagnosis from Today's Visit Dog bite of arm Bitten by dog, initial encounter Discharge Vitals Temperature??(Temporal Artery) 96.8 ??F (36.0 ??C) Heart Rate??(Peripheral) 71 Respiratory Rate?? 16 Blood Pressure?? 146/87?? Height?? 68.90 in (175.000 cm) Weight??(Estimated) 160.96 lb (73.00 kg) Allergies codeine??(Itching) penicillin??(Itching) What to Do Next Instructions from Your Care Team Wash wound daily with antibacterial soap; apply bacitracin twice a day until healed. ??Take Augmentin twice a day for 5 days only.?? Stop if you develop any??tongue swelling, lip swelling,??severe hives.?? If you have??slight itching it is okay to take Benadryl to help with the itch.?? If you have to??stop the antibiotics, return to emergency for a different prescription to cover you for??dog bite.?? Return emergency if there is signs of worsening wound infection (increased swelling, pain, discharge from the wound, streaking up the arm, fevers etc.). You were treated today on an emergency [...] Emergency Department. Medications What How Much When Why Instructions Next Dose New amoxicillin (amoxicillin 875 mg oral tablet) 1 tab Oral (given by mouth) 2 times a day Dog bite of arm Duration: 5 Days Pickup at [id number] Unchanged amitriptyline (amitriptyline 50 mg oral tablet) [...] NO RELIEF GO TO EMERGENCY ROOM ?? Pharmacy Information [facility]: [address] [place], [place] [id number] [phone] Tests Performed Medications and Immunizations Administered Given amoxicillin-clavulanate 875 mg-125 mg oral tablet, 1 tab, Oral Patient/Medicare Contact Specialist Signature Patient Name:CAROLYN SIERRA I have received this information and my questions have been answered. Patient/Medicare Contact Specialist Name: Patient/Medicare Contact Specialist Signature: Relationship to Patient: Witness Name/Signature: Date: Electronically Signed on: 10/01/2022 21:38 EDTSigned by:[facility] Patient Care team information Care Team Personnel Name: Tara Joya MD Position: No Access Member Role: Primary Care Physician Address: Address: [address] [place] [phone] [place] Name: Ashish De La Cruz MD Position: Physician Member Role: ED Physician Address: Address: [facility] EMERGENCY DEPT [address] [place] [address]- [place] Name: Dona Ruiz I Position: Nurse Member Role: ED Nurse
[2023-05-05 08:36] LABS: Abs Immature Grans 0.12 10^3/uL (0.0-0.06); Absolute Basophil Count 0.07 10^3/uL (0.0-0.2); Absolute Eosinophil Count 0.67 10^3/uL (0.0-0.7); Absolute Lymphocyte Count 1.62 10^3/uL (1.2-3.4); Absolute Monocyte Count 0.79 10^3/uL (0.1-0.8); Absolute Neutrophil Count 4.41 10^3/uL (1.2-6.7); Basophils % 0.9; Eosinophils % 8.7; HCT 44.7 % (40.0-50.0); HGB 15.3 g/dL (13.5-17.5); Immature Grans % 1.6; Lymphocytes % 21.1; MCH 29.5 pg (27.0-33.0); MCHC 34.2 % (32.0-36.0); MCV 86 fL (80-95); MPV 9.1 fL (8.0-11.0); Monocytes % 10.3; Neutrophils % 57.4; Platelet Count 213 10^3/uL (130-400); RBC 5.19 10^6/uL (4.36-5.78); RDW 12.5 % (11.8-14.1); RDW-SD 39.3 fL; WBC 7.68 10^3/uL (4.4-10.8)
[2023-05-05 09:15] LABS: ALT 25 U/L (16-63); AST 19 U/L (15-37); Albumin 3.9 g/dL (3.4-5.0); Alkaline Phosphatase 73 U/L (46-116); Anion Gap 10.6 mmol/L (3-11); BUN 20 mg/dL (7-18); Bilirubin, Total 0.5 mg/dL (0.2-1.0); CO2 26.4 mmol/L (21.0-32.0); CREATININE 1.3 mg/dL (0.70-1.30); Calcium 9.2 mg/dL (8.5-10.1); Chloride 104 mmol/L (98-107); Estimated GFR 58.73 (mL/min/1.73m2); FREE T4 0.85 ng/dL (0.76-1.46); Glucose 156 mg/dL (74-106); Sodium 141 mmol/L (136-145); TSH 6.37 uIU/mL (0.36-3.74); Total Protein 7.4 g/dL (6.4-8.2)
== END 2023-05-19 23:59 | disposition home or self-care (01) ==
LOC: INF 07:55
PROVIDERS: Nurse Practitioner Gerontology; PCP Family Medicine; Visit Provider Internal Medicine Hematology & Oncology
DX: C44.229 Squamous cell carcinoma of skin of left ear and external auricular canal (principal); Z79.899 Other long term (current) drug therapy
CPT/HCPCS: 36415; 80053; 84439; 84443; 85025

== ENCOUNTER 2023-06-16 04:59 | Outpatient (RCR) | payer MEDICARE, SELFPAY ==
[2023-05-26 08:23] LABS: Abs Immature Grans 0.26 10^3/uL (0.0-0.06); Absolute Eosinophil Count 0.81 10^3/uL (0.0-0.7); Absolute Lymphocyte Count 1.51 10^3/uL (1.2-3.4); Absolute Monocyte Count 1.18 10^3/uL (0.1-0.8); Absolute Neutrophil Count 3.74 10^3/uL (1.2-6.7); Basophils % 1.3; Eosinophils % 10.7; HCT 41.8 % (40.0-50.0); HGB 14.1 g/dL (13.5-17.5); Immature Grans % 3.4; Lymphocytes % 19.9; MCH 28.9 pg (27.0-33.0); MCHC 33.7 % (32.0-36.0); MCV 86 fL (80-95); MPV 9.2 fL (8.0-11.0); Monocytes % 15.5; Neutrophils % 49.2; Platelet Count 176 10^3/uL (130-400); RBC 4.88 10^6/uL (4.36-5.78); RDW 12.8 % (11.8-14.1); RDW-SD 39.8 fL
[2023-05-26 08:47] LABS: ALT 23 U/L (16-63); AST 20 U/L (15-37); Albumin 3.5 g/dL (3.4-5.0); Alkaline Phosphatase 75 U/L (46-116); Anion Gap 10.3 mmol/L (3-11); BUN 19 mg/dL (7-18); Bilirubin, Total 0.5 mg/dL (0.2-1.0); CO2 23.7 mmol/L (21.0-32.0); CREATININE 1.3 mg/dL (0.70-1.30); Calcium 9.1 mg/dL (8.5-10.1); Chloride 104 mmol/L (98-107); Estimated GFR 58.73 (mL/min/1.73m2); FREE T4 0.82 ng/dL (0.76-1.46); Glucose 171 mg/dL (74-106); Potassium 4.5 mmol/L (3.5-5.1); Sodium 138 mmol/L (136-145); TSH 5.24 uIU/Ml (0.36-3.74); Total Protein 6.8 g/dL (6.4-8.2)
[2023-06-16 09:54] LABS: Abs Immature Grans 0.21 10^3/uL (0.0-0.06); Absolute Eosinophil Count 0.86 10^3/uL (0.0-0.7); Absolute Lymphocyte Count 2.06 10^3/uL (1.2-3.4); Absolute Monocyte Count 0.91 10^3/uL (0.1-0.8); Absolute Neutrophil Count 4.21 10^3/uL (1.2-6.7); Basophils % 1.2; Eosinophils % 10.3; HCT 45.7 % (40.0-50.0); HGB 15.3 g/dL (13.5-17.5); Immature Grans % 2.5; Lymphocytes % 24.7; MCH 29.6 pg (27.0-33.0); MCHC 33.5 % (32.0-36.0); MCV 88 fL (80-95); MPV 9.1 fL (8.0-11.0); Monocytes % 10.9; Neutrophils % 50.4; Platelet Count 198 10^3/uL (130-400); RBC 5.17 10^6/uL (4.36-5.78); RDW 13.1 % (11.8-14.1); RDW-SD 42.5 fL; WBC 8.35 10^3/uL (4.4-10.8)
[2023-06-16 10:22] LABS: ALT 25 U/L (16-63); AST 19 U/L (15-37); Albumin 4.1 g/dL (3.4-5.0); Alkaline Phosphatase 71 U/L (46-116); Anion Gap 8.8 mmol/L (3-11); BUN 23 mg/dL (7-18); Bilirubin, Total 0.6 mg/dL (0.2-1.0); CO2 28.2 mmol/L (21.0-32.0); CREATININE 1.3 mg/dL (0.70-1.30); Calcium 9.4 mg/dL (8.5-10.1); Chloride 104 mmol/L (98-107); Estimated GFR 58.73 (mL/min/1.73m2); FREE T4 0.72 ng/dL (0.76-1.46); Glucose 142 mg/dL (74-106); Potassium 4.1 mmol/L (3.5-5.1); Sodium 141 mmol/L (136-145); TSH 5.84 uIU/Ml (0.36-3.74); Total Protein 7.7 g/dL (6.4-8.2)
== END 2023-06-19 23:59 | disposition home or self-care (01) ==
LOC: INF 04:59
PROVIDERS: Nurse Practitioner Gerontology; PCP Family Medicine; Visit Provider Internal Medicine Hematology & Oncology
DX: C44.229 Squamous cell carcinoma of skin of left ear and external auricular canal (principal); Z79.899 Other long term (current) drug therapy
CPT/HCPCS: 36415; 80053; 84439; 84443; 85025

== ENCOUNTER → 2023-07-15 00:07 | Outpatient (CLI) | payer MEDICARE, SELFPAY ==
--- NOTE | 2023-07-15 | DI.CT_ITS ---
Exam(s) CT CHEST W EXAM: CT CHEST W CLINICAL HISTORY: MALIGNANT NEOPLASM METS TO LUNG C78.00 TECHNIQUE: Imaging Protocol: Axial computed tomography images with coronal and sagittal reformatted images were created and reviewed CONTRAST MATERIAL: Intravenous: Omnipaque 350Contrast volume:[address] CHEST W CONTRAST from 02/23/[address] CHEST W from 06/22/2022 FINDINGS: Tracheobronchial tree: Patent where visualized. Pulmonary parenchyma: There is a 1.1 x 1.7 cm nodule in the left lower lobe (series 3, image 394). T his compares to 1.3 x 1.6 cm on the prior examination. There is a stable 1.1 x 1.4 cm nodule in the upper portion of the left lower lobe (series 3, image 325). There has been significant decrease in s ize of the mass in the medial aspect the right lung base. There is scarring and focal bronchiectasis in its place. The area measures less than 2.2 x 1.5 cm currently. There is a 1.9 x 1.4 cm mass in the lateral aspect of the right lower lobe (series 3, image 317). Previously this measured 1.9 x 1.7 cm. The mass in the right hilum measures 2.0 x 2.6 cm (series 3, image 273). This compares to 2.0 x 2.8 cm on the prior examination. There are no new pulmonary nodules present. No focal areas of co nsolidation are seen. Mediastinum and Lyssa: No dominant adenopathy or fluid collection. The esophagus is unremarkable. Thyroid gland: Unremarkable. Pleura: No effusion or pneumothorax. Heart: The heart is not dilated. Coronary artery calcification and/or stents are present. There is a n aortic valve replacement present. No pericardial effusion. Aorta: Thoracic aorta non-dilated. No evidence of dissection. Atherosclerotic calcification is prese nt. Pulmonary arteries: No large central pulmonary embolus is present. The peripheral pulmonary arteries are poorly opacified as the study was not timed for peak pulmonary artery opacification. Upper abdomen: Calcifications are again seen in the anterior aspect of the left lobe of the liver. Lymph nodes: Within normal limits. Bones: Within normal limits for the patient's age. Soft tissues: Unremarkable. IMPRESSION: There are multiple pulmonary masses again seen suggestive of metastatic disease. There has been sign ificantly decreased in size of the mass in the medial aspect of the right lower lobe since the prior examination. The remaining pulmonary nodules in general show slight decrease in size or are stable. No new pulmonary masses are seen. RADIATION DOSE DELIVERED: 493.99mGy.cm Total DLP DATA REPOSITORY: All CT scans at this facility are submitted to the National Radiology Data Registry (NRDR) Dose Index Registry (DIR) with the [employer] (ACR). RADIATION OPTIMIZATION: All CT scans at this facility use at least one of these dose optimization te chniques: automated exposure control; mA and/or kV adjustment per patient size (includes targeted exa ms where dose is matched to clinical indication); or iterative reconstruction.
[2023-07-15] MEDS: Normal Saline - Diluent 50 ML VIAL IJ (10:18)
[2023-07-15] MEDS: Omnipaque 350 MG/ML 100 ML BTL 70 ML IJ (10:19)
== END ==
PROVIDERS: PCP Family Medicine; Visit Provider Internal Medicine Hematology & Oncology
DX: C78.02 Secondary malignant neoplasm of left lung (principal)
CPT/HCPCS: 80053; 71260; 84439; 84443; 85025; J3490

== ENCOUNTER 2023-08-04 05:04 | Outpatient (RCR) | payer MEDICARE, SELFPAY ==
[2023-08-04 10:54] LABS: Abs Immature Grans 0.22 10^3/uL (0.0-0.06); Absolute Basophil Count 0.09 10^3/uL (0.0-0.2); Absolute Eosinophil Count 0.84 10^3/uL (0.0-0.7); Absolute Lymphocyte Count 1.77 10^3/uL (1.2-3.4); Absolute Monocyte Count 0.82 10^3/uL (0.1-0.8); Absolute Neutrophil Count 4.62 10^3/uL (1.2-6.7); Basophils % 1.1 %; HCT 42.1 % (40.0-50.0); HGB 14.6 g/dL (13.5-17.5); Immature Grans % 2.6 %; Lymphocytes % 21.2 %; MCH 30.2 pg (27.0-33.0); MCHC 34.7 % (32.0-36.0); MCV 87 fL (80-95); MPV 9.2 fL (8.0-11.0); Monocytes % 9.8 %; Neutrophils % 55.3 %; Platelet Count 208 10^3/uL (130-400); RBC 4.84 10^6/uL (4.36-5.78); RDW 13.2 % (11.8-14.1); RDW-SD 41.6 fL; WBC 8.36 10^3/uL (4.4-10.8)
[2023-08-04 11:24] LABS: ALT 26 U/L (16-63); AST 17 U/L (15-37); Alkaline Phosphatase 72 U/L (46-116); Anion Gap 8.5 mmol/L (3-11); BUN 24 mg/dL (7-18); Bilirubin, Total 0.6 mg/dL (0.2-1.0); CO2 25.5 mmol/L (21.0-32.0); CREATININE 1.3 mg/dL (0.70-1.30); Calcium 9.1 mg/dL (8.5-10.1); Chloride 105 mmol/L (98-107); Estimated GFR 58.73 (mL/min/1.73m2); Glucose 156 mg/dL (74-106); Potassium 4.1 mmol/L (3.5-5.1); Sodium 139 mmol/L (136-145); TSH 3.67 uIU/Ml (0.36-3.74); Total Protein 7.5 g/dL (6.4-8.2)
== END 2023-08-19 23:59 | disposition home or self-care (01) ==
LOC: INF 05:04
PROVIDERS: Nurse Practitioner Gerontology; PCP Family Medicine; Visit Provider Internal Medicine Hematology & Oncology
DX: Z79.899 Other long term (current) drug therapy (principal); C44.229 Squamous cell carcinoma of skin of left ear and external auricular canal
CPT/HCPCS: 36415; 80053; 84439; 84443; 85025

== ENCOUNTER 2023-09-15 01:11 | Outpatient (RCR) | payer MEDICARE, SELFPAY ==
[2023-08-25 10:05] LABS: Abs Immature Grans 0.17 10^3/uL (0.0-0.06); Absolute Eosinophil Count 0.59 10^3/uL (0.0-0.7); Absolute Lymphocyte Count 1.59 10^3/uL (1.2-3.4); Absolute Monocyte Count 0.94 10^3/uL (0.1-0.8); Absolute Neutrophil Count 4.16 10^3/uL (1.2-6.7); Basophils % 1.3 %; Eosinophils % 7.8 %; HCT 41.9 % (40.0-50.0); HGB 14.2 g/dL (13.5-17.5); Immature Grans % 2.3 %; Lymphocytes % 21.1 %; MCHC 33.9 % (32.0-36.0); MCV 89 fL (80-95); MPV 8.9 fL (8.0-11.0); Monocytes % 12.5 %; Platelet Count 192 10^3/uL (130-400); RBC 4.73 10^6/uL (4.36-5.78); RDW 12.9 % (11.8-14.1); RDW-SD 41.8 fL; WBC 7.55 10^3/uL (4.4-10.8)
[2023-08-25 10:28] LABS: ALT 30 U/L (16-63); AST 15 U/L (15-37); Albumin 3.9 g/dL (3.4-5.0); Alkaline Phosphatase 91 U/L (46-116); Anion Gap 8.3 mmol/L (3-11); BUN 24 mg/dL (7-18); Bilirubin, Total 0.6 mg/dL (0.2-1.0); CO2 26.7 mmol/L (21.0-32.0); CREATININE 1.3 mg/dL (0.70-1.30); Calcium 9.4 mg/dL (8.5-10.1); Chloride 104 mmol/L (98-107); Estimated GFR 58.73 (mL/min/1.73m2); FREE T4 0.82 ng/dL (0.76-1.46); Glucose 178 mg/dL (74-106); Potassium 4.1 mmol/L (3.5-5.1); Sodium 139 mmol/L (136-145); TSH 3.85 uIU/Ml (0.36-3.74); Total Protein 7.4 g/dL (6.4-8.2)
[2023-09-15 10:47] LABS: Abs Immature Grans 0.23 10^3/uL (0.0-0.06); Absolute Basophil Count 0.08 10^3/uL (0.0-0.2); Absolute Eosinophil Count 0.55 10^3/uL (0.0-0.7); Absolute Lymphocyte Count 1.06 10^3/uL (1.2-3.4); Absolute Monocyte Count 0.68 10^3/uL (0.1-0.8); Absolute Neutrophil Count 5.07 10^3/uL (1.2-6.7); Eosinophils % 7.2 %; HCT 41.9 % (40.0-50.0); HGB 14.1 g/dL (13.5-17.5); Lymphocytes % 13.8 %; MCH 30.1 pg (27.0-33.0); MCHC 33.7 % (32.0-36.0); MCV 89 fL (80-95); MPV 8.8 fL (8.0-11.0); Monocytes % 8.9 %; Neutrophils % 66.1 %; Platelet Count 195 10^3/uL (130-400); RBC 4.69 10^6/uL (4.36-5.78); RDW 12.8 % (11.8-14.1); RDW-SD 41.6 fL; WBC 7.67 10^3/uL (4.4-10.8)
[2023-09-15 11:10] LABS: ALT 22 U/L (16-63); AST 12 U/L (15-37); Albumin 3.8 g/dL (3.4-5.0); Alkaline Phosphatase 91 U/L (46-116); Anion Gap 10.2 mmol/L (3-11); BUN 19 mg/dL (7-18); Bilirubin, Total 0.51 mg/dL (0.2-1.0); CO2 24.8 mmol/L (21.0-32.0); CREATININE 1.5 mg/dL (0.70-1.30); Calcium 9.1 mg/dL (8.5-10.1); Chloride 105 mmol/L (98-107); Estimated GFR 49.47 (mL/min/1.73m2); FREE T4 0.79 ng/dL (0.76-1.46); Glucose 268 mg/dL (74-106); Potassium 4.1 mmol/L (3.5-5.1); Sodium 140 mmol/L (136-145); TSH 3.55 uIU/Ml (0.36-3.74); Total Protein 7.2 g/dL (6.4-8.2)
== END 2023-09-18 23:59 | disposition home or self-care (01) ==
LOC: INF 01:11
PROVIDERS: Nurse Practitioner Gerontology; PCP Family Medicine; Visit Provider Internal Medicine Hematology & Oncology
DX: Z79.899 Other long term (current) drug therapy (principal); C44.229 Squamous cell carcinoma of skin of left ear and external auricular canal
CPT/HCPCS: 36415; 80053; 84439; 84443; 85025

== ENCOUNTER 2023-10-06 02:09 | Outpatient (RCR) | payer MEDICARE, SELFPAY ==
[2023-10-06 10:43] LABS: Abs Immature Grans 0.22 10^3/uL (0.0-0.06); Absolute Basophil Count 0.09 10^3/uL (0.0-0.2); Absolute Eosinophil Count 0.59 10^3/uL (0.0-0.7); Absolute Lymphocyte Count 1.52 10^3/uL (1.2-3.4); Absolute Monocyte Count 0.78 10^3/uL (0.1-0.8); Basophils % 1.1 %; Eosinophils % 7.3 %; HGB 13.8 g/dL (13.5-17.5); Immature Grans % 2.7 %; Lymphocytes % 18.8 %; MCH 29.9 pg (27.0-33.0); MCHC 33.7 % (32.0-36.0); MCV 89 fL (80-95); MPV 8.9 fL (8.0-11.0); Monocytes % 9.6 %; Neutrophils % 60.5 %; Platelet Count 193 10^3/uL (130-400); RBC 4.61 10^6/uL (4.36-5.78); RDW-SD 42.3 fL
[2023-10-06 11:28] LABS: ALT 20 U/L (16-63); AST 14 U/L (15-37); Albumin 3.7 g/dL (3.4-5.0); Alkaline Phosphatase 75 U/L (46-116); Anion Gap 11.1 mmol/L (3-11); BUN 29 mg/dL (7-18); Bilirubin, Total 0.49 mg/dL (0.2-1.0); CO2 22.9 mmol/L (21.0-32.0); CREATININE 1.5 mg/dL (0.70-1.30); Calcium 8.9 mg/dL (8.5-10.1); Chloride 105 mmol/L (98-107); Estimated GFR 49.47 (mL/min/1.73m2); FREE T4 0.72 ng/dL (0.76-1.46); Glucose 241 mg/dL (74-106); Sodium 139 mmol/L (136-145); TSH 3.59 uIU/Ml (0.36-3.74); Total Protein 7.1 g/dL (6.4-8.2)
== END 2023-10-19 23:59 | disposition home or self-care (01) ==
LOC: INF 02:09
PROVIDERS: Nurse Practitioner Gerontology; PCP Family Medicine; Visit Provider Internal Medicine Hematology & Oncology
DX: Z79.899 Other long term (current) drug therapy (principal); C44.299 Other specified malignant neoplasm of skin of left ear and external auricular canal
CPT/HCPCS: 36415; 80053; 84439; 84443; 85025

== ENCOUNTER 2023-10-27 01:38 | Outpatient (RCR) | payer MEDICARE, SELFPAY ==
[2023-10-27 09:22] LABS: ALT 24 U/L (16-63); AST 20 U/L (15-37); Albumin 3.9 g/dL (3.4-5.0); Alkaline Phosphatase 83 U/L (46-116); Anion Gap 7.9 mmol/L (3-11); BUN 26 mg/dL (7-18); Bilirubin, Total 0.48 mg/dL (0.2-1.0); CO2 27.1 mmol/L (21.0-32.0); CREATININE 1.6 mg/dL (0.70-1.30); Calcium 9.2 mg/dL (8.5-10.1); Chloride 104 mmol/L (98-107); Estimated GFR 45.78 (mL/min/1.73m2); FREE T4 0.75 ng/dL (0.76-1.46); Glucose 186 mg/dL (74-106); Potassium 4.3 mmol/L (3.5-5.1); Sodium 139 mmol/L (136-145); TSH 8.76 uIU/Ml (0.36-3.74); Total Protein 7.3 g/dL (6.4-8.2)
[2023-10-27 10:57] LABS: HCT 42.9 % (40.0-50.0); HGB 14.2 g/dL (13.5-17.5); MCV 91 fL (80-95); RBC 4.72 10^6/uL (4.36-5.78); WBC 8.28 10^3/uL (4.4-10.8)
[2023-10-27 10:58] LABS: Abs Immature Grans 0.21 10^3/uL (0.0-0.06); Absolute Lymphocyte Count 1.72 10^3/uL (1.2-3.4); Absolute Monocyte Count 0.98 10^3/uL (0.1-0.8); Absolute Neutrophil Count 4.57 10^3/uL (1.2-6.7); Basophils % 1.2 %; Eosinophils % 8.5 %; Immature Grans % 2.5 %; Lymphocytes % 20.8 %; MCH 30.1 pg (27.0-33.0); MCHC 33.1 % (32.0-36.0); Monocytes % 11.8 %; Neutrophils % 55.2 %; Platelet Count 236 10^3/uL (130-400); RDW 13.1 % (11.8-14.1); RDW-SD 43.8 fL
== END 2023-11-19 23:59 | disposition home or self-care (01) ==
LOC: INF 01:38
PROVIDERS: Nurse Practitioner Family; PCP Family Medicine; Visit Provider Internal Medicine Hematology & Oncology
DX: Z79.899 Other long term (current) drug therapy (principal); C44.229 Squamous cell carcinoma of skin of left ear and external auricular canal
CPT/HCPCS: 36415; 80053; 84439; 84443; 85025

== ENCOUNTER 2023-12-27 02:05 | Outpatient (CLI) | payer MEDICARE, SELFPAY ==
--- NOTE | 2023-12-27 | DI.CT_ITS ---
Exam(s) CT CHEST W EXAM: CT CHEST W CLINICAL HISTORY: NEOPLASM METS TO LUNG C78.00 TREATMENT RESPONSE. TECHNIQUE: Multi planar reconstructions were performed. CONTRAST MATERIAL: Omnipaque 350; 75 cc COMPARISON: CT CT CHEST W from 06/22/[address] CHEST W from 07/15/2023 FINDINGS: CHEST: LUNGS: Previously described bilateral nodules and infiltrates remain stable when compared to 07/15/19 24, unchanged in size and configuration. There are no new nodules evident. No pleural effusions MEDIASTINUM: There is no new hilar nor mediastinal adenopathy. Visualized thyroid unremarkable.No dang praclavicular adenopathy. No axillary CARDIAC: Heart size is normal. There is no pericardial effusion.Aortic valve TAVR again noted. Diam eter of the ascending thoracic aorta is within normal limits. No evidence of dissection. VISUALIZED UPPER ABDOMEN:No new significant findings. No ascites. OSSEOUS: No significant osseous lesions.No fractures.. IMPRESSION: 1. Stable size and number of bilateral metastatic lung nodules when compared to 07/15/2023. No new f ocal lung findings and there are no pleural effusions 2. No new intrathoracic adenopathy evident RADIATION DOSE DELIVERED: 110.22mGy.cm Total DLP DATA REPOSITORY: All CT scans at this facility are submitted to the National Radiology Data Registry (NRDR) Dose Index Registry (DIR) with the [employer] (ACR). RADIATION OPTIMIZATION: All CT scans at this facility use at least one of these dose optimization te chniques: automated exposure control; mA and/or kV adjustment per patient size (includes targeted exa ms where dose is matched to clinical indication); or iterative reconstruction.
[2023-12-27] MEDS: Omnipaque 350 MG/ML 500 ML BTL-Imaging package IJ (10:29)
[2023-12-27] MEDS: Normal Saline - Diluent 50 ML VIAL IJ (10:30)
== END 2023-12-27 02:25 ==
LOC: DI 02:05
PROVIDERS: PCP Family Medicine; Visit Provider Nurse Practitioner Family
DX: C78.01 Secondary malignant neoplasm of right lung (principal)
CPT/HCPCS: 36415; 80053; 71260; 84439; 84443; 85025

== ENCOUNTER 2023-12-27 09:05 | Outpatient (RCR) | payer MEDICARE, SELFPAY ==
[2023-12-27 09:52] LABS: Abs Immature Grans 0.21 10^3/uL (0.0-0.06); Absolute Eosinophil Count 0.83 10^3/uL (0.0-0.7); Absolute Lymphocyte Count 1.67 10^3/uL (1.2-3.4); Absolute Monocyte Count 0.88 10^3/uL (0.1-0.8); Absolute Neutrophil Count 5.17 10^3/uL (1.2-6.7); Basophils % 1.1 %; Eosinophils % 9.4 %; HCT 42.7 % (40.0-50.0); HGB 14.4 g/dL (13.5-17.5); Immature Grans % 2.4 %; Lymphocytes % 18.8 %; MCH 30.4 pg (27.0-33.0); MCHC 33.7 % (32.0-36.0); MCV 90 fL (80-95); MPV 8.8 fL (8.0-11.0); Monocytes % 9.9 %; Neutrophils % 58.4 %; Platelet Count 219 10^3/uL (130-400); RBC 4.74 10^6/uL (4.36-5.78); RDW 12.9 % (11.8-14.1); RDW-SD 42.5 fL; WBC 8.86 10^3/uL (4.4-10.8)
[2023-12-27 10:23] LABS: ALT 20 U/L (16-63); AST 17 U/L (15-37); Albumin 3.8 g/dL (3.4-5.0); Alkaline Phosphatase 82 U/L (46-116); Anion Gap 7.3 mmol/L (3-11); BUN 24 mg/dL (7-18); Bilirubin, Total 0.48 mg/dL (0.2-1.0); CO2 26.7 mmol/L (21.0-32.0); CREATININE 1.4 mg/dL (0.70-1.30); Calcium 9.4 mg/dL (8.5-10.1); Chloride 106 mmol/L (98-107); FREE T4 0.74 ng/dL (0.76-1.46); Glucose 178 mg/dL (74-106); Potassium 4.3 mmol/L (3.5-5.1); Sodium 140 mmol/L (136-145); TSH 5.89 uIU/Ml (0.36-3.74); Total Protein 7.5 g/dL (6.4-8.2)
== END 2024-01-19 23:59 | disposition home or self-care (01) ==
LOC: INF 09:05
PROVIDERS: PCP Family Medicine; Visit Provider Nurse Practitioner Family
DX: C44.229 Squamous cell carcinoma of skin of left ear and external auricular canal (principal); Z79.899 Other long term (current) drug therapy
CPT/HCPCS: 36415; 80053; 84439; 84443; 85025

== ENCOUNTER 2024-03-19 01:45 | Outpatient (CLI) | payer MEDICARE, SELFPAY ==
--- NOTE | 2024-03-19 | DI.CT_ITS ---
Exam(s) CT CHEST W EXAM: CT CHEST W CLINICAL HISTORY: Malignant neoplasm H and N, metastatic to lungs, C78.00 TECHNIQUE: Imaging Protocol: Axial computed tomography images with coronal and sagittal reformatted images were created and reviewed. Computer aided detection (CAD) was utilized. CONTRAST MATERIAL: Intravenous: Omnipaque 350 Contrast volume:70 ml. COMPARISON: CT CT CHEST W CONTRAST from 02/23/[address] CHEST W from 06/22/[address] CHEST W from 12/27/2023 FINDINGS: Pulmonary parenchyma: No consolidation. Stable size and appearance of bilateral pulmonary masses. N o new masses. Tracheobronchial tree: No bronchiectasis or mucous plugging. Mediastinum and Lyssa: No dominant adenopathy or fluid collection. Pleura: No effusion. No pneumothorax. Heart: The heart is mildly dilated. coronary artery calcifications and/or stents are seen. Aorta: TAVR thoracic aorta non-dilated. Mild atherosclerotic changes. Pulmonary arteries: No gross evidence of emboli. Upper abdomen: No acute findings. Bones: Degenerative changes in the spine. Soft tissues: Unremarkable. IMPRESSION: Stable size and appearance of pulmonary metastases. No new abnormalities are identified. RADIATION DOSE DELIVERED: Total DLP DATA REPOSITORY: All CT scans at this facility are submitted to the National Radiology Data Registry (NRDR) Dose Index Registry (DIR) with the [employer] (ACR). RADIATION OPTIMIZATION: All CT scans at this facility use at least one of these dose optimization te chniques: automated exposure control; mA and/or kV adjustment per patient size (includes targeted exa ms where dose is matched to clinical indication); or iterative reconstruction.
[2024-03-19 13:44] LABS: Absolute Eosinophil Count 0.72 10^3/uL (0.0-0.7); Absolute Lymphocyte Count 1.57 10^3/uL (1.2-3.4); Absolute Monocyte Count 0.87 10^3/uL (0.1-0.8); Absolute Neutrophil Count 5.69 10^3/uL (1.2-6.7); Basophils % 1.1 %; Eosinophils % 7.8 %; HCT 40.4 % (40.0-50.0); HGB 13.5 g/dL (13.5-17.5); Immature Grans % 3.2 %; MCH 29.8 pg (27.0-33.0); MCHC 33.4 % (32.0-36.0); MCV 89 fL (80-95); MPV 8.4 fL (8.0-11.0); Monocytes % 9.4 %; Neutrophils % 61.5 %; Platelet Count 211 10^3/uL (130-400); RBC 4.53 10^6/uL (4.36-5.78); RDW 13.1 % (11.8-14.1); RDW-SD 42.9 fL; WBC 9.25 10^3/uL (4.4-10.8)
[2024-03-19 14:18] LABS: ALT 20 U/L (16-63); AST 15 U/L (15-37); Albumin 3.6 g/dL (3.4-5.0); Alkaline Phosphatase 79 U/L (46-116); Anion Gap 7.3 mmol/L (3-11); BUN 23 mg/dL (7-18); Bilirubin, Total 0.43 mg/dL (0.2-1.0); CO2 26.7 mmol/L (21.0-32.0); CREATININE 1.3 mg/dL (0.70-1.30); Calcium 9.3 mg/dL (8.5-10.1); Chloride 106 mmol/L (98-107); Estimated GFR 58.37 (mL/min/1.73m2); Glucose 169 mg/dL (74-106); Potassium 4.5 mmol/L (3.5-5.1); Sodium 140 mmol/L (136-145); Total Protein 7.4 g/dL (6.4-8.2)
[2024-03-19] MEDS: Omnipaque 350 MG/ML 100 ML BTL 70 ML IJ (14:21)
[2024-03-19] MEDS: Normal Saline - Diluent 50 ML VIAL IJ (14:22)
== END 2024-03-19 02:05 ==
LOC: DI 01:45
PROVIDERS: Nurse Practitioner Family; PCP Family Medicine; Visit Provider Internal Medicine Hematology & Oncology
DX: Z79.899 Other long term (current) drug therapy (principal); C78.00 Secondary malignant neoplasm of unspecified lung
CPT/HCPCS: 80053; 71260; 84439; 84443; 85025; J3490

== ENCOUNTER 2024-06-11 02:01 | Outpatient (CLI) | payer MEDICARE, SELFPAY ==
--- NOTE | 2024-06-11 | DI.CT_ITS ---
Exam(s) CT CHEST W EXAM: CT CHEST W CLINICAL HISTORY: METS TO LUNG C78.00 AQUAMOUS CELL CARCINOMA EAR, S/P IMMUNOTHERAPY TECHNIQUE: Imaging Protocol: Axial computed tomography images with coronal and sagittal reformatted images were created and reviewed. Computer aided detection (CAD) was utilized. CONTRAST MATERIAL: Intravenous: Omnipaque 350 Contrast volume:70 ml. COMPARISON: CT CT CHEST W from 07/15/[address] CHEST W from 03/19/2024 FINDINGS: Pulmonary parenchyma: No consolidation. Right lung: Stable 2 x 2.6 cm mass adjacent to the right hilum, in the upper lobe. But stable area of nodularity and scarring in the superior segment of the left lower lobe. Of adjacent 5 millimeter nodules also stable. Stable 1.6 centimeter mass lateral right lower lobe. Stable area of scarring i n the medial left lower lobe. Tracheobronchial tree: No bronchiectasis or mucous plugging. Mediastinum and Lyssa: No dominant adenopathy or fluid collection. Pleura: No effusion. No pneumothorax. Heart: The heart is mildly dilated. Calcifications and stents. Coronary artery calcifications are s een. Aorta: TAVR. Thoracic aorta non-dilated. Mild atherosclerotic changes. Pulmonary arteries: No gross evidence of emboli. Upper abdomen: No acute findings. Bones: Degenerative changes in the spine. No lytic or blastic lesions are identified. Soft tissues: Unremarkable. IMPRESSION: Stable bilateral pulmonary metastases. No new findings. RADIATION DOSE DELIVERED: Total DLP DATA REPOSITORY: All CT scans at this facility are submitted to the National Radiology Data Registry (NRDR) Dose Index Registry (DIR) with the [employer] (ACR). RADIATION OPTIMIZATION: All CT scans at this facility use at least one of these dose optimization te chniques: automated exposure control; mA and/or kV adjustment per patient size (includes targeted exa ms where dose is matched to clinical indication); or iterative reconstruction.
[2024-06-11 14:26] LABS: Abs Immature Grans 0.17 10^3/uL (0.0-0.06); Absolute Basophil Count 0.08 10^3/uL (0.0-0.2); Absolute Eosinophil Count 0.46 10^3/uL (0.0-0.7); Absolute Lymphocyte Count 1.47 10^3/uL (1.2-3.4); Absolute Monocyte Count 0.76 10^3/uL (0.1-0.8); Absolute Neutrophil Count 5.05 10^3/uL (1.2-6.7); Eosinophils % 5.8 %; HCT 42.9 % (40.0-50.0); HGB 14.5 g/dL (13.5-17.5); Immature Grans % 2.1 %; Lymphocytes % 18.4 %; MCH 30.2 pg (27.0-33.0); MCHC 33.8 % (32.0-36.0); MCV 89 fL (80-95); MPV 8.5 fL (8.0-11.0); Monocytes % 9.5 %; Neutrophils % 63.2 %; Platelet Count 222 10^3/uL (130-400); RDW 12.8 % (11.8-14.1); RDW-SD 42.1 fL; WBC 7.99 10^3/uL (4.4-10.8)
[2024-06-11 14:56] LABS: ALT 32 U/L (16-63); AST 19 U/L (15-37); Alkaline Phosphatase 81 U/L (46-116); Anion Gap 8.2 mmol/L (3-11); BUN 17 mg/dL (7-18); Bilirubin, Total 0.5 mg/dL (0.2-1.0); CO2 27.8 mmol/L (21.0-32.0); CREATININE 1.3 mg/dL (0.70-1.30); Calcium 9.3 mg/dL (8.5-10.1); Chloride 103 mmol/L (98-107); Estimated GFR 58.37 (mL/min/1.73m2); Glucose 224 mg/dL (74-106); Potassium 4.3 mmol/L (3.5-5.1); Sodium 139 mmol/L (136-145); TSH 5.57 uIU/mL (0.36-3.74); Total Protein 7.6 g/dL (6.4-8.2)
[2024-06-11] MEDS: Omnipaque 350 MG/ML 100 ML BTL 70 ML IJ (15:32)
[2024-06-11] MEDS: Normal Saline - Diluent 50 ML VIAL IJ (15:33)
[2024-06-11 22:21] LABS: T4, Free 0.9 ng/dL (0.8-2.2)
== END 2024-06-11 02:21 ==
LOC: DI 02:01
PROVIDERS: PCP Family Medicine; Visit Provider Internal Medicine Hematology
DX: Z79.899 Other long term (current) drug therapy (principal); C78.01 Secondary malignant neoplasm of right lung
CPT/HCPCS: 80053; 71260; 84439; 84443; 85025; J3490

== ENCOUNTER 2024-09-03 00:18 | Outpatient (CLI) | payer MEDICARE, SELFPAY ==
[2024-09-03 12:53] LABS: CREATININE 1.3 mg/dL (0.70-1.30); Estimated GFR 58.37 (mL/min/1.73m2)
[2024-09-03] MEDS: Omnipaque 350 MG/ML 100 ML BTL IJ (13:14)
[2024-09-03] MEDS: Normal Saline - Diluent 50 ML VIAL IJ (13:15)
--- NOTE | 2024-09-03 13:30 | DI.CT_ITS ---
Exam(s) CT CHEST W EXAM: CT CHEST W CLINICAL HISTORY: Metastatic Lung Cancer C78.00 MET Head and neck Cancer, restaging TECHNIQUE: Imaging Protocol: Axial computed tomography images with coronal and sagittal reformatted images were created and reviewed. Computer aided detection (CAD) was utilized. CONTRAST MATERIAL: Intravenous: Omnipaque 350Contrast volume:70 mL. COMPARISON: CT CT CHEST W from 06/11/2024 FINDINGS: Tracheobronchial tree: Patent where visualized. No evidence of bronchiectasis. Pulmonary parenchyma: There is dependent atelectasis in the lung bases. There has been no change in size of the pulmonary nodules and scarring seen in the lungs. No new nodules are seen. No new focal consolidating infiltrates are present to suggest acute infection. Mediastinum and Lyssa: No dominant adenopathy or fluid collection. The esophagus is unremarkable. Thyroid gland: Unremarkable. Pleura: No effusion or pneumothorax. Heart: Mild cardiomegaly. There is a aortic valve replacement. Three vessel coronary artery calcifications are present. No pericardial effusion. Aorta: Thoracic aorta non-dilated. There is no evidence of dissection. Atherosclerotic calcification is present. Pulmonary arteries: No pulmonary emboli are identified. Upper abdomen: There is a simple cyst seen in the left kidney. No follow-up is recommended. There is a stable 1 cm enhancing lesion in the left lobe of the liver likely reflecting a hemangioma. Lymph nodes: Within normal limits. Bones: Within normal limits for the patient's age. Soft tissues: Unremarkable. 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 IMPRESSION: 1. Stable pulmonary metastases. 2. No acute pulmonary process. RADIATION DOSE DELIVERED: 144.8mGy.cm Total DLP DATA REPOSITORY: All CT scans at this facility are submitted to the National Radiology Data Registry (NRDR) Dose Index Registry (DIR) with the [employer] ([employer]). RADIATION OPTIMIZATION: All CT scans at this facility use at least one of these dose optimization techniques: automated exposure control; mA and/or kV adjustment per patient size (includes targeted exams where dose is matched to clinical indication); or iterative reconstruction.
== END 2024-09-03 00:38 ==
LOC: DI 00:18
PROVIDERS: Nurse Practitioner Family; PCP Family Medicine; Visit Provider Internal Medicine Hematology
DX: C78.01 Secondary malignant neoplasm of right lung (principal); C78.02 Secondary malignant neoplasm of left lung
CPT/HCPCS: 71260; 82565; J3490

== ENCOUNTER 2024-10-01 12:44 | Outpatient (CLI) | payer MEDICARE, SELFPAY ==
[2024-10-01 09:38] LABS: Abs Immature Grans 0.07 10^3/uL (0.0-0.06); HCT 41.7 % (40.0-50.0); HGB 14.2 g/dL (13.5-17.5); Immature Grans % 1.0 %; MCH 30.3 pg (27.0-33.0); MCHC 34.1 % (32.0-36.0); MCV 89 fL (80-95); MPV 8.7 fL (8.0-11.0); Platelet Count 200 10^3/uL (130-400); RBC 4.69 10^6/uL (4.36-5.78); RDW 13.2 % (11.8-14.1); RDW-SD 43.0 fL; WBC 6.88 10^3/uL (4.4-10.8)
[2024-10-01 10:05] LABS: ALT 25 U/L (16-63); AST 22 U/L (15-37); Albumin 4.0 g/dL (3.4-5.0); Alkaline Phosphatase 66 U/L (46-116); Anion Gap 7.4 mmol/L (3-11); BUN 34 mg/dL (7-18); Bilirubin, Total 0.7 mg/dL (0.2-1.0); CO2 25.6 mmol/L (21.0-32.0); Calcium 9.3 mg/dL (8.5-10.1); Chloride 106 mmol/L (98-107); Estimated GFR 49.16 (mL/min/1.73m2); Glucose 136 mg/dL (74-106); Potassium 4.3 mmol/L (3.5-5.1); Sodium 139 mmol/L (136-145); T4 5.6 ug/dL (4.7-13.3); TSH 2.49 uIU/mL (0.36-3.74); Total Protein 7.3 g/dL (6.4-8.2)
== END 2024-10-01 12:45 | disposition home or self-care (01) ==
LOC: LBO 12:46
PROVIDERS: PCP Family Medicine; Visit Provider Nurse Practitioner Family
DX: E03.2 Hypothyroidism due to medicaments and other exogenous substances (principal); C78.01 Secondary malignant neoplasm of right lung
CPT/HCPCS: 36415; 80053; 84436; 84443; 85025

== ENCOUNTER 2024-12-11 00:42 | Outpatient (CLI) | payer MEDICARE, SELFPAY ==
[2024-12-11 09:20] LABS: Abs Immature Grans 0.17 10^3/uL (0.0-0.06); HCT 42.4 % (40.0-50.0); HGB 14.3 g/dL (13.5-17.5); Immature Grans % 2.3 %; MCH 29.8 pg (27.0-33.0); MCHC 33.7 % (32.0-36.0); MCV 88 fL (80-95); MPV 8.9 fL (8.0-11.0); Platelet Count 209 10^3/uL (130-400); RBC 4.80 10^6/uL (4.36-5.78); RDW 12.5 % (11.8-14.1); RDW-SD 40.8 fL; WBC 7.37 10^3/uL (4.4-10.8)
[2024-12-11 10:35] LABS: ALT 24 U/L (16-63); AST 20 U/L (15-37); Albumin 3.9 g/dL (3.4-5.0); Alkaline Phosphatase 65 U/L (46-116); Anion Gap 9.9 mmol/L (3-11); BUN 21 mg/dL (7-18); Bilirubin, Total 0.6 mg/dL (0.2-1.0); CO2 27.1 mmol/L (21.0-32.0); Calcium 9.2 mg/dL (8.5-10.1); Chloride 102 mmol/L (98-107); Estimated GFR 48.85 (mL/min/1.73m2); Glucose 223 mg/dL (74-106); Potassium 4.4 mmol/L (3.5-5.1); Sodium 139 mmol/L (136-145); Total Protein 7.2 g/dL (6.4-8.2)
[2024-12-11] MEDS: Normal Saline - Diluent 50 ML VIAL IJ (10:39)
[2024-12-11] MEDS: Omnipaque 350 MG/ML 500 ML BTL-Imaging package IJ (10:40)
[2024-12-11] MEDS: Normal Saline Flush 10 ML SYR IVP (10:40)
--- NOTE | 2024-12-11 10:45 | DI.CT_ITS ---
Exam(s) CT CHEST W EXAM: CT CHEST W CLINICAL HISTORY: METASTATIC LUNG CA C78.00 RECURRENT HEAD/NECK CA METS TO LUNG RESTAGING TECHNIQUE: Imaging Protocol: Axial computed tomography images with coronal and sagittal reformatted images were created and reviewed. Computer aided detection (CAD) was utilized. CONTRAST MATERIAL: Intravenous: Omnipaque 350 Contrast volume:[address] CHEST W from 07/15/[address] CHEST W from 06/11/[address] CHEST W from 09/03/2024 FINDINGS: Pulmonary parenchyma: No consolidation. Stable right upper lobe mass measuring 2.6 x 2.0 cm. Stable lateral right lower lobe mass measuring 1.6 cm. Stable densities in the inferior right hilar region and medial aspect of the right lower lobe. Stable areas of nodularity and scarring at the posterior left lower lobe. Tracheobronchial tree: No bronchiectasis or mucous plugging. Mediastinum and Lyssa: No dominant adenopathy or fluid collection. Pleura: No effusion. No pneumothorax. Heart: The heart is mildly dilated. Aortic valve prosthesis. Three-vessel coronary artery calcifications are seen. Aorta: Thoracic aorta non-dilated. Mild atherosclerotic changes. Pulmonary arteries: No gross evidence of emboli. Upper abdomen: No acute findings. Stable enhancing lesion in the anterior left lobe of the liver./is likely a hemangioma. Bones: Degenerative changes in the spine. 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 IMPRESSION: Stable bilateral pulmonary metastases. No new abnormalities are identified. RADIATION DOSE DELIVERED: 115.92mGy.cm Total DLP DATA REPOSITORY: All CT scans at this facility are submitted to the National Radiology Data Registry (NRDR) Dose Index Registry (DIR) with the [employer] ([employer]). RADIATION OPTIMIZATION: All CT scans at this facility use at least one of these dose optimization techniques: automated exposure control; mA and/or kV adjustment per patient size (includes targeted exams where dose is matched to clinical indication); or iterative reconstruction.
== END 2024-12-11 01:02 ==
PROVIDERS: PCP Family Medicine; Visit Provider Internal Medicine Hematology
DX: C78.01 Secondary malignant neoplasm of right lung (principal); C78.02 Secondary malignant neoplasm of left lung
CPT/HCPCS: 36415; 80053; 71260; 85025

== ENCOUNTER 2024-12-24 03:25 | Outpatient (CLI) | payer MEDICARE, SELFPAY ==
[2024-12-24 12:52] LABS: Abs Immature Grans 0.10 10^3/uL (0.0-0.06); HCT 40.8 % (40.0-50.0); HGB 13.7 g/dL (13.5-17.5); Immature Grans % 1.5 %; MCH 29.4 pg (27.0-33.0); MCHC 33.6 % (32.0-36.0); MCV 88 fL (80-95); MPV 8.9 fL (8.0-11.0); Platelet Count 206 10^3/uL (130-400); RBC 4.66 10^6/uL (4.36-5.78); RDW 12.5 % (11.8-14.1); RDW-SD 40.4 fL; WBC 6.60 10^3/uL (4.4-10.8)
[2024-12-24 13:18] LABS: ALT 22 U/L (16-63); AST 20 U/L (15-37); Albumin 3.9 g/dL (3.4-5.0); Alkaline Phosphatase 67 U/L (46-116); Anion Gap 7.4 mmol/L (3-11); BUN 23 mg/dL (7-18); Bilirubin, Total 0.7 mg/dL (0.2-1.0); CO2 26.6 mmol/L (21.0-32.0); Calcium 8.9 mg/dL (8.5-10.1); Chloride 104 mmol/L (98-107); Estimated GFR 48.85 (mL/min/1.73m2); Glucose 247 mg/dL (74-106); Potassium 4.2 mmol/L (3.5-5.1); Sodium 138 mmol/L (136-145); Total Protein 7.0 g/dL (6.4-8.2)
== END 2024-12-24 03:26 | disposition home or self-care (01) ==
LOC: LBO 03:25
PROVIDERS: PCP Family Medicine; Visit Provider Internal Medicine Hematology
DX: C78.00 Secondary malignant neoplasm of unspecified lung (principal)
CPT/HCPCS: 36415; 80053; 85025